=== PATIENT | female | born 1970 | race African-American/Black ===

== ENCOUNTER 2020-07-26 10:00 | Outpatient (REF) | payer MEDICARE, MEDICAID, SELFPAY | END 2020-07-26 10:01 | disposition home or self-care (01) | LOC: HO.HAP 10:00 | PROVIDERS: Visit Provider Internal Medicine | DX: Z46.1 Encounter for fitting and adjustment of hearing aid (principal) | CPT/HCPCS: V5266 ==

== ENCOUNTER 2020-08-15 08:29 | Outpatient (REF) | payer MEDICARE, MEDICAID, SELFPAY ==
--- NOTE | 2020-08-15 11:46 | MHC.AU.P13 ---
Adult Audiological Evaluation Date of Visit: 08/15/20 Reason for Appointment: Audiological re-evaluation to monitor the status of Ms. Deutsch's hearing loss. She has a history of profound hearing loss in the left ear since childhood, stenosis of the left ear canal, and a mild to moderate high-frequency sensorineural hearing loss in the right ear. She uses a BiCROS hearing aid system. She denies any significant changes to her hearing or medical history. She notes that her hearing aids have not been working well the past few days. Ms. Deutsch is eligible for updated amplification. Previous Hearing Test Results: [facility] [place], 06/22/2019- Mild to moderate sensorineural hearing loss from 6494-7586 Hz in the right ear. Left ear not tested. Hearing Instrument History- Right Ear: Preschool Lead Teacher: Phonak Model: Audeo [id number] Serial Number: [id number] Battery Size: 13 Repair Warranty: 12/19/2016 Loss and Damage Warranty: 12/19/2016 Dispensed By: [facility] Date of Fittin10/04/2014 Hearing Instrument History- Left Ear: Preschool Lead Teacher: Phonak Model: CROS ITE Serial Number: [id number] Battery Size: 13 Warranty: 10/20/2016 Loss and Damage Warranty: 10/20/2016 Dispensed By: [facility] Date of Fittin10/04/2014 Otoscopy: Right Ear: Unremarkable Left Ear: Stenosis of the ear canal Tympanometry: Right Ear: Normal Middle Ear System (Type A) Left Ear: Not performed at today's visit Hearing Evaluation: Transducer(s) Used: Insert Earphones, Bone Conduction Method: Conventional Audiometry Stimuli Used: Pure Tones Right Ear: Description of Hearing: Normal hearing from 250-1500 Hz, sloping to a mild to moderate sensorineural hearing loss from 3960-9841 Hz. Left Ear: Description of Hearing: Did not test today due to history of profound hearing loss since childhood. Speech Recognition Threshold (SRT): Method Used: Monitored Live Voice Stimuli Used: Spondee Words Right Ear: 10 dBHL Left Ear: Did not test Word Discrimination: Method: Recorded Lists Word Lists Used: NU-6 Right Ear: 92% at 50 dBHL Left Ear: Did not test Comparison: Compared to the most recent evaluation: Hearing is stable. Recommendations: Recommendations: Audiological re-evaluation in one year. Medical clearance from a physician is required before fitting. See Hearing Aid Evaluation report for more information. See Hearing Aid Follow-Up note for more information. Recommendations (Other): Updated amplification is recommended. Discussed options. New BiCROS hearing aids will be ordered once medical clearance is received. Hearing aid maintenance was performed today. Diagnosis: Primary Diagnosis: H90.3 Bilateral Sensorineural Hearing Loss Services Performed: Services Performed: Comprehensive Audiological Evaluation (CPT 69661) Tympanometry (CPT 91343) Signature: Provider: Debbie Cheek, CCC-A
--- NOTE | 2020-08-15 11:47 | MHC.AU.MED ---
Medical Clearance for Hearing Instrumentation Date: 08/15/20 Patient Name: Sabra Deutsch Date of : 1970 Primary Care Provider: Referring Provider: Liss Moctezuma MD We have seen your patient on 08/15/20 and have determined that they are a candidate for amplification (See accompanying report). Specifically, they would benefit from: Hearing aid use in both ears There is a statute that addresses Medical Evaluation Requirements prior to fitting a patient with a hearing aid. According to [place] statute 265 CMR:6.03(1), (a) General. Except as provided in 265 CMR 6.03(1)(b), a newborn hearing screener shall not sell a hearing aid unless the prospective user has presented to the newborn hearing screener a written statement signed by a licensed physician that states that the patient's hearing loss has been medically evaluated and the patient may be considered a candidate for a hearing aid. The medical evaluation must have taken place within the preceding six months. Please note: Due to the [place] Statute referenced above, we cannot accept a signature other than that of a licensed physician. SENIOR HYDROGEOLOGIST and PA signatures cannot be accepted. I am in agreement with the above recommendation. There is no medical contraindication for hearing instrumentation. Physician Signature Date Physician Name (Printed)
== END 2020-08-15 08:30 | disposition home or self-care (01) ==
LOC: HO.SH 08:29
PROVIDERS: Visit Provider Internal Medicine
DX: Z46.1 Encounter for fitting and adjustment of hearing aid (principal); H90.3 Sensorineural hearing loss, bilateral
CPT/HCPCS: 92557; 92567; 92591; 92593; 99499; V5275

== ENCOUNTER 2020-12-03 15:30 | Outpatient (REF) | payer MEDICARE, MEDICAID, SELFPAY | END 2020-12-03 15:31 | disposition home or self-care (01) | LOC: HO.HAP 15:30 | PROVIDERS: Visit Provider Internal Medicine | DX: Z46.1 Encounter for fitting and adjustment of hearing aid (principal) | CPT/HCPCS: V5266 ==

== ENCOUNTER 2020-12-04 11:09 | Outpatient (REF) | payer MEDICARE, MEDICAID, SELFPAY ==
--- NOTE | ~2020-12-04 | XR_ITS ---
EXAMINATION: XR HAND, RIGHT CLINICAL INFORMATION: Pain in right fingers. COMPARISON: 05/04/2019 and 03/24/2017. TECHNIQUE: PA, lateral, and oblique views of the right hand. FINDINGS: There is no evidence of acute fracture or dislocation of the right hand. There is some soft tissue swelling seen about the third proximal interphalangeal joint with some narrowing of the joint space and a small bony density about the ulnar aspect, likely related to sequela of previous injury. XR/XR hand RT min 3V IMPRESSION: Soft tissue swelling about the third proximal interphalangeal joint with bony density, likely representing sequela of previous injury. No acute fracture identified.
[2020-12-04 12:20] LABS: MANUAL DIFF FLAG NO
[2020-12-04 12:23] LABS: Basophils Percent Auto 0.2 % (0-2); Eosinophils Percent Auto 0.1 % (0-4); Hematocrit 38.9 % (37-47); Hemoglobin 12.7 g/dl (12.0-16.0); Imm Gran Abs Auto 0.02 X10*3/uL (0.00-0.03); Imm Gran Pct Auto 0.2 % (0.0-0.4); Lymphocytes Absolute Auto 2.6 X10*3/uL (1.2-4.9); Lymphocytes Percent Auto 25.1 % (20-40); Mean Corpuscular HGB Conc 32.6 g/dl (31.0-35.0); Mean Corpuscular Hemoglobin 29.9 pg (27.0-33.0); Mean Corpuscular Volume 91.5 fL (80-98); Mean Platelet Volume 10.4 fL (9.4-12.3); Monocytes Absolute Auto 0.3 X10*3/uL (0.1-1.2); Monocytes Percent Auto 3.3 % (2-11); Neutrophils Absolute Auto 7.4 X10*3/uL (2.0-8.3); Neutrophils Percent Auto 71.1 % (45-73); Platelet Count 279 X10*3/uL (160-400); Red Blood Count 4.25 X10*6/uL (4.20-5.50); Red Cell Distribution Width 14.6 % (11.0-16.0); White Blood Count 10.4 X10*3/uL (4.8-10.8)
[2020-12-04 12:59] LABS: Alanine Aminotransferase 14 U/L (0-31); Alkaline Phosphatase 96 U/L (39-117); Anion Gap 16 (12-20); Aspartate Amino Transferase 9 U/L (5-31); Bilirubin Total 0.4 mg/dL (0.0-1.0); Blood Urea Nitrogen 13 mg/dL (9-16); C Reactive Protein 1.68 mg/dL (< or = 0.50); Carbon Dioxide 21 mmol/L (22-29); Chloride 108 mmol/L (96-108); Estimated Glomerular Filt Rate > 60; Glucose Random 204 mg/dL (60-115); Sodium 141 mmol/L (135-145); Total Protein 6.8 g/dL (6.5-8.0)
[2020-12-04 13:11] LABS: Erythrocyte Sedimentation Rate 14 MM/HR (0-20)
[2020-12-04 13:14] LABS: Rheumatoid Factor < 15.0 IU/mL (<15.0)
[2020-12-06 21:27] LABS: Cyclic Citrullinated Peptide <16 UNITS
== END 2020-12-04 11:10 | disposition home or self-care (01) ==
LOC: HO.LAB 11:09
PROVIDERS: PCP Internal Medicine; Visit Provider Student in an Organized Health Care Education/Training Program
DX: M79.644 Pain in right finger(s) (principal); E11.65 Type 2 diabetes mellitus with hyperglycemia; E78.00 Pure hypercholesterolemia, unspecified; I10 Essential (primary) hypertension; D50.9 Iron deficiency anemia, unspecified; Z88.8 Allergy status to other drugs, medicaments and biological substances; Z79.84 Long term (current) use of oral hypoglycemic drugs; Z79.899 Other long term (current) drug therapy
CPT/HCPCS: 36415; 73130; 80053; 85025; 85652; 86140; 86200; 86431; 99202

== ENCOUNTER → 2020-12-25 13:46 | Outpatient (BNVA) | payer MEDICARE, MEDICAID, SELFPAY | PROVIDERS: PCP Internal Medicine; Visit Provider Student in an Organized Health Care Education/Training Program | DX: M79.644 Pain in right finger(s) (principal); Z79.899 Other long term (current) drug therapy | CPT/HCPCS: 99212 ==

== ENCOUNTER 2021-01-03 11:00 | Outpatient (RCR) | payer MEDICARE, MEDICAID, SELFPAY ==
--- NOTE | 2020-12-19 13:03 | MHC.OT.OEV ---
[address] [phone] F: [phone] Occupational Therapy Evaluation Diagnosis: RIGHT FINGER PAIN Date of Onset: 12/18/18 Attending Provider: Dick Ordonez Prescribed Treatment: EVAL AND TREAT History of Current Condition: REPORTS ABOUT TWO YEAR HISTORY OF RIGHT MIDDLE FINGER PAIN, AT PIPJ. STATES IT IS WORSE AT NIGHT AND WITH COLD, RAINY WEATHER. XRAY 12/06/20 SHOWS Soft tissue swelling about the third proximal interphalangeal joint with bony density, likely representing sequela of previous injury. 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 ENJOYS MAKING POTTERY. Living Situation, Family and/or Social Support: LIVES WITH S/O Current Level of Function and Occupation Self Care, Employment, Leisure: DENIES DIFFICULTIES WITH PERFORMING DAILY TASKS AT HOME OR WITH VOLUNTEER WORK Sleep: MILD DISCOMFORT WITH SLEEPING, PAIN GREATER AT NIGHT Driving: NO PROBLEMS Vision: HX EYE SURGERY Pain Assessment Pain Score: 0-3/10 Pain Scale Used: Numeric (0 - 10) Pain Location and Description: RIGHT MIDDLE FINGER, PIPJ Aggravating Factors: COLD WEATHER Alleviating Factors: TAKING TYLENOL, HAS NOT TRIED HEAT FOR PAIN RELIEF Skin and Soft Tissue Assessment Skin and Soft Tissue: Swelling Comments: INCREASED EDEMA AT PIPJ OF RIGHT MIDDLE FINGER Sensory Assessment Temperature: Light Touch: WFL Proprioception: Vibration: Comments: PER SEMMES MOIRA ASSESSMENT Edema Assessment Upper Extremity: Right Impaired Lower Extremity: Comments: CIRCUMFERENCE OF PIPJ D3: RIGHT 6.7 CM, LEFT 5.7 CM CIRCUMFERENCE OF MCPs D2-D5: RIGHT 18.7 CM, LEFT 18.4 CM Dexterity Assessment Dexterity: WFL Comments: 9 HOLE PEG TEST RIGHT 17 SECONDS, LEFT 20 SECONDS Special Tests Comments: AROM(PROM) Strength Wrist Flexion: Extension: Ulnar Deviation: Radial Deviation: Comments: Flexion: Extension: Ulnar Deviation: Radial Deviation: Comments: SHOULDER, ELBOW AND WRIST WNL Digits Index MCP: PIP: DIP: Long MCP: R 70, L 80 PIP: R 90, L 100 DIP: R 72, L 72 Ring MCP: PIP: DIP: Small MCP: PIP: DIP: Comments: <0.5 CM TIP TO DPC OF D3 Gross Grasp: R 52, L 55 Lateral Pinch: R 15, L 10 Two-Point Pinch: R 7, L 7 Three-Jaw Abimael: R 5, L 7 Comments: Patient Education Primary Language: Senegalese Insole And Outsole Preparer Required: Yes Current Knowledge: Understands information with skills for self-management Teaching Method: Demonstration Handouts Verbal Education Needs Identified on Evaluation: ADL's Disease Information Equipment Use Exercise Pain Safety How did patient/family demonstrate learning? Patient demonstrates Patient verbalizes Barriers to Learning: Vision Readiness for Learning: Accepting Who was educated? Patient Comments: Plan of Care Assessment: HAYDE PRESENTS TO OT WITH A TWO YEAR HISTORY OF PAIN IN HER DOMINANT, RIGHT PIP JOINT OF THE MIDDLE FINGER. SHE STATES THE PAIN IS WORSE AT NIGHT AND WITH ACTIVITY. SHE REPORTS A 5% LIMITATION PER THE QUICK DASH ASSESSMENT. A BRIEF COURSE OF OT IS WARRANTED TO IMPROVE QOL AND MAXIMIZE HER FUNCTIONAL ABILITIES. STG Duration: 2 WEEKS Short Term Goals: IND HEP IND JOINT PROTECTION AND ACTIVITY MODIFICATION IND HEAT, INCLUDING HOME PARAFFIN UNIT OR THERMAL MODALITIES IND EDEMA MANAGEMENT WILL VERBALIZE 5/6 JOINT PROTECTION TECHNIQUES LTG Duration: Long-Term Goals: SEE ABOVE Frequency and Duration: The patient will be seen 1X/WEEK FOR 2 WEEKS Treatment Plan: Therapeutic Exercise Therapeutic Activity Home Exercise Program Splinting Neuro Re-ed Patient Education Desensitization/Sensory Re-ed Edema Control ADL Training Ultrasound NMES Iontophoresis Paraffin Fluidotherapy MHP Cold Packs Joint Mobilization Soft Tissue Mobilization Kinesiotaping Electronically Signed By: JEANNETTE YO OTR/L Reviewed/agree with student documentation: N/A Therapist: Please sign and return to therapist, Thank you for your referral.
--- NOTE | 2021-01-03 11:31 | MHC.OT.DC ---
[address] [phone] F: [phone] Occupational Therapy Discharge Note Provider: Dick Ordonez Diagnosis: RIGHT FINGER PAIN Date of Evaluation: 12/19/20 Date of Discharge: 01/03/21 Treatments to Date: 2 Discharge Status: Achieved Goals Improved Function Independent with HEP Discharge Summary: MS. SWIFT HAS DONE WELL WITH FOLLOWING THROUGH WITH HER HEP AND IS IMPLEMENTING JOINT PROTECTION STRATEGIES IN DAILY ACTIVITIES. SHE PURCHASED A HOME PARAFFIN UNIT AND ADDITIONAL COBAN FOR GENTLE COMPRESSION AT HER MF PIPJ. SHE WAS HIGHLY MOTIVATED AND RECEPTIVE TO PATIENT EDUCATION ON ACTIVITY MODIFICATION FOR ADLs AND IADLs. NO FURTHER OT WARRANTED AT THIS TIME, Pt READY FOR SELF MANAGEMENT OF OA AT HOME. D/C OT SERVICES. Electronically Signed By: JEANNETTE YO OTR/Татьяна Reviewed/agree with student documentation: N/A Therapist: Please Sign and return to therapist, thank you for your referral.
== END 2021-01-03 13:14 | disposition other institution (70) ==
LOC: HO.OT 11:00
PROVIDERS: PCP Internal Medicine; Visit Provider Student in an Organized Health Care Education/Training Program
DX: M79.644 Pain in right finger(s) (principal)
CPT/HCPCS: 97110; 97165

== ENCOUNTER 2021-03-19 09:33 | Outpatient (REF) | payer MEDICARE, MEDICAID, SELFPAY | END 2021-03-19 09:34 | disposition home or self-care (01) | LOC: HO.HAP 09:33 | PROVIDERS: Visit Provider Internal Medicine | DX: Z46.1 Encounter for fitting and adjustment of hearing aid (principal); H90.3 Sensorineural hearing loss, bilateral | CPT/HCPCS: V5266 ==

== ENCOUNTER 2021-05-02 13:49 | Outpatient (REF) | payer MEDICARE, MEDICAID, SELFPAY ==
--- NOTE | ~2021-05-02 | MM_ITS ---
EXAMINATION: MM SCREENING DIGITAL BREAST TOMOSYNTHESIS, BILATERAL CLINICAL INFORMATION: Screening. Asymptomatic. The lifetime risk of breast cancer based on the Tyrer-Cuzick Model is 11%. COMPARISON: Mammography: 04/18/2020, 04/13/2019, 04/07/2018 TECHNIQUE: Digital breast tomosynthesis is performed in both the craniocaudal and mediolateral oblique views along with computer-aided detection (CAD). Synthesized 2D images are generated from the tomosynthesis. FINDINGS: The breasts are heterogeneously dense, which may obscure small masses (ACR BI-RADS breast composition Category c). Breast tissue composition borders on average fibroglandular. The right CC view has asymmetric density mid outer quadrant 7.5 cm from nipple representing change from prior exams. Patient will be recalled for additional imaging. The remainder of the breasts show no interval mass or architectural abnormality. No abnormal calcifications. The axilla and skin contours are unremarkable. MM/MM tomosynthesis screening BI IMPRESSION: 1. Right: Asymmetric density mid outer breast on CC view. 2. Left: No mammographic evidence of malignancy. ASSESSMENT: BI-RADS 0: Incomplete - Need Additional Imaging Evaluation RECOMMENDATION: 1. Additional views of the right breast (spot CC, rolled CC x2). 2. Targeted ultrasound if warranted after review of the additional views. 3. Radiology department staff will contact the patient for additional imaging. This patient's information was entered into a reminder system with a target due date for their next mammogram.
== END 2021-05-02 13:50 | disposition home or self-care (01) ==
LOC: HO.MAMMO 13:49
PROVIDERS: PCP Internal Medicine; Visit Provider Internal Medicine
DX: Z12.31 Encounter for screening mammogram for malignant neoplasm of breast (principal)
CPT/HCPCS: 77063; 77067

== ENCOUNTER 2021-05-13 10:58 | Outpatient (REF) | payer MEDICARE, MEDICAID, SELFPAY ==
--- NOTE | ~2021-05-13 | MM_ITS ---
EXAMINATION: MM DIAGNOSTIC DIGITAL BREAST TOMOSYNTHESIS, RIGHT US DIAGNOSTIC ULTRASOUND BREAST, RIGHT CLINICAL INFORMATION: Recall from screening for asymmetric density mid outer breast, change from prior studies. COMPARISON: Mammography: 05/02/2021, 04/18/2020, 04/13/2019 TECHNIQUE: Digital breast tomosynthesis is performed. 2D images are generated from the tomosynthesis. The following views are obtained: Rolled CC x2, spot CC. Ultrasound right breast is targeted to the outer quadrant using grayscale imaging and color Doppler without and with harmonics. Additional imaging axilla are also performed. FINDINGS: The breasts are heterogeneously dense, which may obscure small masses (ACR BI-RADS breast composition Category c). US additional views suggest subtle asymmetric density mid outer breast. Ultrasound demonstrates focal irregular hypoechoic lesion 0.6 cm upper outer quadrant 10:00 position 8 cm from nipple. There is posterior acoustic shadowing. Finding corresponds to the area for recall. Additional imaging right axilla demonstrates no lymphadenopathy. Results are discussed with the patient at time of visit. Ultrasound-guided core biopsy is recommended. Results and recommendation called to office ([facility]) for Dr. Moctezuma on 05/13/2021. MM/MM tomosynthesis added views R IMPRESSION: Irregular hypoechoic lesion with shadowing mid upper outer quadrant 0.6 cm corresponding to finding on recent mammography. ASSESSMENT: BI-RADS 4: Suspicious RECOMMENDATION: Ultrasound-guided core biopsy right breast lesion.
== END 2021-05-13 10:59 | disposition home or self-care (01) ==
LOC: HO.MAMMO 10:58
PROVIDERS: Visit Provider Internal Medicine
DX: R92.2 Inconclusive mammogram (principal)
CPT/HCPCS: 76642; 77061; 77065

== ENCOUNTER 2021-05-28 09:39 | Outpatient (REF) | payer MEDICARE, MEDICAID, SELFPAY ==
--- NOTE | ~2021-05-28 | MM_ITS ---
EXAMINATION: ULTRASOUND GUIDED CORE BIOPSY BREAST, RIGHT POST PROCEDURE DIGITAL MAMMOGRAM, RIGHT CLINICAL INFORMATION: Irregular hypoechoic lesion with shadowing mid upper outer right breast under 1 cm. COMPARISON: Mammography 05/02/2021, 05/13/2021, right breast ultrasound 05/13/2021. FINDINGS: Proper informed consent is obtained from the patient after discussion of the procedure, potential risks and complications, and alternatives. Patient was given an opportunity for questions. The patient appeared to understand. The patient consented to the procedure and signed the consent form. GUIDANCE: Ultrasound-guided; aseptic technique. LESION: Irregular hypoechoic lesion upper outer right breast under 1 cm. APPROACH: Lateral medial. ANESTHESIA: 9 mL carbonated 1% lidocaine. DERMATOTOMY: Single skin alyssia dermatotomy performed. NEEDLE: 14-gauge Achieve core biopsy device with 13.5-gauge co-axial guide needle. CORES: 5. CLIP: HydroMARK; shape: butterfly. POST PROCEDURE UNILATERAL DIGITAL MAMMOGRAM: The post biopsy mammogram is performed in separate room using separate digital mammography equipment from the biopsy procedure. CC and ML views are obtained.The breasts are heterogeneously dense, which may obscure small masses (breast composition category: c). The clip marker is in position. No gross hematoma. The patient tolerated the procedure well. No immediate complications. Home instructions reviewed with the patient. Final pathology results are pending. MM/MM diagnostic mammo unilat RT IMPRESSION: 1. Status post ultrasound-guided core biopsy right breast. 2. Clip placed: HydroMARK; shape: butterfly. 3. Pathology pending. An addendum report will be issued.
[2021-05-28] MEDS: Lidocaine HCl 1 % 20 ML VIAL 9 ML SUBCUT (11:56)
[2021-05-28] MEDS: Sodium Bicarbonate 8.4% 50 MEQ/50 ML VIAL SUBCUT (11:58)
== END 2021-05-28 09:40 | disposition home or self-care (01) ==
LOC: HO.MAMMO 09:39
PROVIDERS: Visit Provider Surgery
DX: C50.411 Malignant neoplasm of upper-outer quadrant of right female breast (principal)
CPT/HCPCS: 19083; 77065; 88305; 88360; 99202

== ENCOUNTER → 2021-05-31 10:10 | Outpatient (BNVA) | payer MEDICARE, MEDICAID, SELFPAY | PROVIDERS: PCP Internal Medicine; Referring Provider Internal Medicine; Visit Provider Surgery | DX: C50.911 Malignant neoplasm of unspecified site of right female breast (principal) | CPT/HCPCS: 99212 ==

== ENCOUNTER 2021-06-18 10:08 | Outpatient (REF) | payer MEDICARE, MEDICAID, SELFPAY ==
[2021-06-18 10:29] LABS: MANUAL DIFF FLAG NO
[2021-06-18 10:54] LABS: Basophils Percent Auto 0.3 % (0-2); Hematocrit 42.9 % (37.0-47.0); Hemoglobin 13.9 g/dl (12.0-16.0); Imm Gran Abs Auto 0.03 X10*3/uL (0.00-0.03); Imm Gran Pct Auto 0.3 % (0.0-0.4); Lymphocytes Absolute Auto 2.6 X10*3/uL (1.2-4.9); Lymphocytes Percent Auto 26.9 % (20-40); Mean Corpuscular HGB Conc 32.4 g/dl (31.0-35.0); Mean Corpuscular Volume 92.5 fL (80.0-98.0); Mean Platelet Volume 10.3 fL (9.4-12.3); Monocytes Absolute Auto 0.4 X10*3/uL (0.1-1.2); Monocytes Percent Auto 3.6 % (2-11); Neutrophils Absolute Auto 6.7 x10*3/uL (2.0-8.3); Neutrophils Percent Auto 68.9 % (45-73); Platelet Count 306 X10*3/uL (160-400); Red Blood Count 4.64 X10*6/uL (4.20-5.50); Red Cell Distribution Width 14.6 % (11.0-16.0); White Blood Count 9.7 X10*3/uL (4.8-10.8)
[2021-06-18 11:19] LABS: Alanine Aminotransferase 14 U/L (0-31); Albumin Level 4.2 g/dL (3.5-5.0); Alkaline Phosphatase 83 U/L (39-117); Anion Gap 14 (12-20); Aspartate Amino Transferase 13 U/L (5-31); Bilirubin Total 0.4 mg/dL (0.0-1.0); Blood Urea Nitrogen 14 mg/dL (9-16); Calcium 9.1 mg/dL (8.4-10.2); Carbon Dioxide 22 mmol/L (22-29); Chloride 110 mmol/L (96-108); Cholesterol 163 mg/dL; Estimated Glomerular Filt Rate > 60; Glucose Random 117 mg/dL (60-115); HDL Cholesterol 57 mg/dL; LDL Cholesterol Calculated 88 mg/dl; Potassium 4.2 mmol/L (3.3-5.1); Sodium 142 mmol/L (135-145); Total Protein 7.1 g/dL (6.5-8.0); Triglycerides 90 mg/dL
[2021-06-18 11:23] LABS: Estimated Average Glucose 137 mg/dL; Hemoglobin A1c % 6.4 %
[2021-06-18 11:41] LABS: Thyroid Stimulating Hormone 1.85 uIU/mL (0.32-4.0); Vitamin D 25-OH Total 45.1 ng/mL (>30)
[2021-06-18 11:45] LABS: Vitamin B12 641 pg/mL (200-900)
[2021-06-18 12:04] LABS: Creatinine Urine 94.18 mg/dL; Microalbum/Creatinine Ratio Ur 24.4 ug/mg cr
== END 2021-06-18 10:09 | disposition home or self-care (01) ==
LOC: HO.LAB 10:08
PROVIDERS: PCP Internal Medicine; Visit Provider Internal Medicine
DX: E11.65 Type 2 diabetes mellitus with hyperglycemia (principal); E78.00 Pure hypercholesterolemia, unspecified
CPT/HCPCS: 36415; 80053; 80061; 82043; 82306; 82607; 82746; 83036; 84443; 85025

== ENCOUNTER 2021-06-24 07:05 | Day surgery (SDC) | payer MEDICARE, MEDICAID, SELFPAY ==
[2021-06-13 18:21] VITALS: BMI 36.2
--- NOTE | 2021-06-18 15:43 | P.CONAN_ITS ---
Documented by User: Susannah Holland NP 06/18/21 15:46 HPI - Anesthesia Eval Consult details Narrative: 50yo F for Right [place] Node Biopsy, Breast Biopsy Needle, Breast Lumpectomy Left side facial paralysis since childhood [facility] Active Problems Active Problems: All Active Problems (Updated 06/13/21 @ 18:05 by Nisa Chaves RN) Tachycardia (Acute) Finger pain, right (Acute) Colon cancer screening (Acute) Breast density (Acute) Abnormal ultrasound of breast (Acute) Abnormal mammogram of right breast (Acute) Invasive ductal carcinoma of right breast (Acute) Cervical cancer screening (Acute) Adult general medical exam (Acute) Depression (Acute) Schizophrenia (Acute) Hearing loss (Acute) Obesity (Acute) Hypertension (Acute) Hypercholesterolemia (Acute) GERD (gastroesophageal reflux disease) (Acute) Type 2 diabetes mellitus with hyperglycemia (Acute) Past Medical History Medical History (Updated 06/13/21 @ 18:05 by Nisa Chaves RN) Arthritis Facial paralysis GERD (gastroesophageal reflux disease) Hearing loss Hiatal hernia Hypercholesterolemia Hypertension Iron deficiency anemia Obesity Schizophrenia Type 2 diabetes mellitus with hyperglycemia Family History Family History Father Medical history unknown Mother Medical history unknown Surgical History Surgical History Hemiparesis History of eye surgery History of placement of ear tubes Social History Social History Housing: Apartment Alcohol intake: current Alcohol intake frequency: a few times a month Alcohol type: beer and wine Patient Tobacco Use Status: Never used Tobacco e-Cigarette/Vaping Use: Never Used Second Hand Smoke Exposure: No Use of substances other than those prescribed or required for medical reasons: Yes Are you DNR?: No Advance Directives: Yes Advance Directives Information Provided: No Advance Directives on File: Yes Advance Directives Date on File: 06/24/21 Recently lost weight without trying: No Nutrition Risks: No Nutritional Risk Patient : No service: No Current occupational status: unemployed Meds Allergies Allergy/AdvReac Type Severity Reaction Status Date / Time lisinopril [LISINOPRIL] Allergy Unknown SWOLLEN Verified 06/05/21 10:24 LIPS, angioedema, swelling Home Medications Medication Instructions Recorded Confirmed Last Taken Type aripiprazole 20 mg tablet (Abilify) 20 mg PO DAILY 05/30/20 06/05/21 Unknown History ascorbate calcium (vitamin C) 500 500 mg PO DAILY 05/30/20 06/05/21 Unknown History mg tablet aspirin 81 mg tablet,delayed 81 mg PO DAILY 05/30/20 06/05/21 Unknown History release (Adult Aspirin Regimen) bupropion HCl 100 mg tablet,12 hr 100 mg PO DAILY 05/30/20 06/05/21 06/24/21 History sustained-release (Wellbutrin SR) cholecalciferol (vitamin D3) 25 25 mcg PO DAILY 05/30/20 06/05/21 Unknown History mcg (1,000 unit) capsule cinnamon bark 500 mg capsule 500 mg PO DAILY 05/30/20 06/05/21 Unknown History (Cinnamon) clonidine HCl 0.1 mg tablet 0.1 mg PO DAILY PRN tab 05/30/20 06/05/21 Unknown History clozapine 50 mg tablet 75 mg PO BID tab 05/30/20 06/05/21 06/24/21 History fluoxetine 20 mg capsule (Prozac) 20 mg PO DAILY 05/30/20 06/05/21 06/24/21 History clozapine 25 mg tablet 25 mg PO BID 05/28/21 06/05/21 06/24/21 History Exam Exam Date and Time: June 18, 2021 1543 Height,Weight and Vital Signs: Height 5 ft 2 in Weight 89.811 kg Pertinent Lab Results Pertinent Lab Results: Laboratory Tests 06/18/21 06/18/21 10:28 10:28 WBC 9.7 Hgb 13.9 Hct 42.9 Plt Count 306 Sodium 142 Potassium 4.2 Chloride 110 H Carbon Dioxide 22 BUN 14 Creatinine 0.85 Assessment and Plan Assessment Anesthesia Assessment: Chart Reviewed Documented by User: Sandeep Velasquez 06/24/21 10:45 [facility] Past Medical History Medical History (Updated 06/13/21 @ 18:05 by Nisa Chaves RN) Arthritis Facial paralysis GERD (gastroesophageal reflux disease) Hearing loss Hiatal hernia Hypercholesterolemia Hypertension Iron deficiency anemia Obesity Schizophrenia Type 2 diabetes mellitus with hyperglycemia Functional capacity: independent ambulation Family History Family History Father Medical history unknown Mother Medical history unknown Family history of problems with anesthesia: Unobtainable Surgical History Surgical History Hemiparesis History of eye surgery History of placement of ear tubes History of Problems with Anesthesia: No Social History Social History Housing: Apartment Alcohol intake: current Alcohol intake frequency: a few times a month Alcohol type: beer and wine Patient Tobacco Use Status: Never used Tobacco e-Cigarette/Vaping Use: Never Used Second Hand Smoke Exposure: No Use of substances other than those prescribed or required for medical reasons: Yes Are you DNR?: No Advance Directives: Yes Advance Directives Information Provided: No Advance Directives on File: Yes Advance Directives Date on File: 06/24/21 Recently lost weight without trying: No Nutrition Risks: No Nutritional Risk Patient : No service: No Current occupational status: unemployed Meds Allergies Allergy/AdvReac Type Severity Reaction Status Date / Time lisinopril [LISINOPRIL] Allergy Unknown SWOLLEN Verified 06/05/21 10:24 LIPS, angioedema, swelling Home Medications Medication Instructions Recorded Confirmed Last Taken Type aripiprazole 20 mg tablet (Abilify) 20 mg PO DAILY 05/30/20 06/05/21 Unknown History ascorbate calcium (vitamin C) 500 500 mg PO DAILY 05/30/20 06/05/21 Unknown History mg tablet aspirin 81 mg tablet,delayed 81 mg PO DAILY 05/30/20 06/05/21 Unknown History release (Adult Aspirin Regimen) bupropion HCl 100 mg tablet,12 hr 100 mg PO DAILY 05/30/20 06/05/21 06/24/21 History sustained-release (Wellbutrin SR) cholecalciferol (vitamin D3) 25 25 mcg PO DAILY 05/30/20 06/05/21 Unknown History mcg (1,000 unit) capsule cinnamon bark 500 mg capsule 500 mg PO DAILY 05/30/20 06/05/21 Unknown History (Cinnamon) clonidine HCl 0.1 mg tablet 0.1 mg PO DAILY PRN tab 05/30/20 06/05/21 Unknown History clozapine 50 mg tablet 75 mg PO BID tab 05/30/20 06/05/21 06/24/21 History fluoxetine 20 mg capsule (Prozac) 20 mg PO DAILY 05/30/20 06/05/21 06/24/21 History clozapine 25 mg tablet 25 mg PO BID 05/28/21 06/05/21 06/24/21 History Exam Airway Mallampati Class: III TM Dist: >3cm Neck ROM: Full Loose/Missing/Broken Teeth: Yes Heart: rrr Lungs: bl breath sounds Assessment and Plan Final Anesthetic Review Family History of Problems with Anesthesia: Unobtainable History of Problems with Anesthesia: No NPO: Yes ASA Class: II Final Preanesthetic Review: Meds/Allgs Chart Reviewed and Anes Risks/Benef Reviewed Patient Risk: Intermediate Procedure Risk: Intermediate Anesthetic Plan Anesthetic Plan: GA Disposition: Standard PACU
[2021-06-24] VITALS (10 sets, daily range): BP systolic 124–145; BP diastolic 71–97; PULSE 79–114; RESP 13–20; TEMP 36.7–36.9; O2SAT 93–98
--- NOTE | ~2021-06-24 | NM_ITS ---
EXAMINATION: NM LYMPH SCINTIGRAPHY CLINICAL INFORMATION: Right breast invasive ductal cancer. COMPARISON: None TECHNIQUE: Following explaining right breast sentinel node procedure, benefits and risk, a written consent was obtained by Dr. Dao. 4% lidocaine cream was applied around the right breast areola. This cream was cleaned approximately 30 to 40 minutes later. The area around the areola was cleaned in aseptic manner. 0.5 mCi of 99m technetium Lymphoseek was administered in 4 equal doses around the right breast areola, and imaging was obtained approximately 30 minutes later. FINDINGS: There are 2 moderate-sized focal activity seen in the right anterior axilla consistent with sentinel nodes. There are a few additional faint visualizations of activity in the right anterior axilla on AP view. Four areas of injection isotope activity seen around the right breast areola. NM/NM sentinel node w imaging IMPRESSION: There are 2 obvious sentinel nodes seen in the right anterior axilla. There are several small faint areas of activity seen also in the right anterior axilla on right breast lymphoscintigraphy.
--- NOTE | ~2021-06-24 | MM_ITS ---
EXAMINATION: MM MAMMOGRAM GUIDED NEEDLE LOCALIZATION BREAST, RIGHT MM NEEDLE LOCALIZATION SPECIMEN FROM THE RIGHT BREAST CLINICAL INFORMATION: Invasive ductal cancer right breast. COMPARISON: 05/28/2021, 05/13/2021, 05/02/2021, 04/18/2020, targeted ultrasound right breast 05/13/2021, ultrasound-guided biopsy right breast 05/28/2021. TECHNIQUE NEEDLE LOC: Proper informed consent is obtained from the patient after discussion of the procedure, potential risks and complications, and alternatives including declining the procedure today. Patient was given an opportunity for questions. The patient appeared to understand. The patient consented to the procedure and signed the consent form. GUIDANCE: Digital mammography. APPROACH: Lateral Medial. TARGET: HydroMARK butterfly shaped clip marker mid upper outer quadrant. ANESTHESIA: Carbonated lidocaine 1%: 6 mL. LOCALIZATION MARKER: Fries MammaLok. 5 cm length. The skin is prepped and local anesthesia administered. The needle is positioned and position assessed with mammography. The wire is hooked into position. Frederica needle protector placed. The patient tolerated the procedure well and had no immediate complication. Following the procedure, 4% lidocaine ointment was administered to the left areola and covered with Tegaderm in anticipation of nuclear lymphoscintigraphy injection for sentinel lymph node mapping. Procedure results called to nuclear medicine medical director (Susannah) for Dr. Holden following the localization procedure. TECHNIQUE SPECIMEN RADIOGRAPH: Imaging of the excised specimen is performed using digital mammography in 1 view. FINDINGS SPECIMEN RADIOGRAPH: The distal needle and hookwire are delivered intact within the specimen. The proximal needle and hookwire are suctioned in OR prior to imaging. The biopsy clip marker is within the specimen adjacent to the localization needle. Results were called to Dr. Ivan Holden in the operating room at the time of imaging. MM/MM needle loc RT IMPRESSION: 1. Status post right breast needle localization with wire hooked into position. 2. Post operative specimen radiograph obtained.
[2021-06-24 07:29] LABS: UPreg QC Valid YES; Urine Pregnancy NEGATIVE (NEGATIVE)
--- NOTE | 2021-06-24 08:24 | MHC.SHP ---
Pre-Procedural Eval Section A Date of Service: 06/24/21 The patient is an INPATIENT: No Changes since office visit: Yes Patient answered all questions; No Cold of Flu in the past 2 weeks, No New Medical Problems and No Changes in Medication The History & Physical has been completed within 30 days and I have reviewed it.: Yes Section B Chief Complaint: right breast invasive ductal carcinoma Allergies: Allergies Allergy/AdvReac Type Severity Reaction Status Date / Time lisinopril [LISINOPRIL] Allergy Unknown SWOLLEN Verified 06/05/21 10:24 LIPS, angioedema, swelling Plan Diagnosis/Plan: Unchanged I have reviewed the history and physical and performed a pertinent physical examination on my patient. No changes have occurred unless specified.
--- NOTE | 2021-06-24 08:24 | PC.NURSE ---
off unit to needle loc.
[2021-06-24 08:39] LABS: Glucose, Whole Blood 132 mg/dL (60-115)
[2021-06-24] MEDS: Sodium Bicarbonate 8.4% 50 MEQ/50 ML VIAL SUBCUT (09:35)
[2021-06-24] MEDS: Lactated Ringers 1,000 ML 100 ML IVCONT (10:40)
--- NOTE | 2021-06-24 12:51 | W.PM.OPN ---
Operative Note Operative Note Date of Service: 06/24/21 Narrative: Preoperative diagnosis:Invasive ductal carcinoma right breast Postoperative diagnosis:same Procedure:Right breast lumpectomy with needle localization, right axillary sentinel node biopsy Surgeon: Ivan Holden MD Operations And Maintenance Technician: Radha Khanna PA-C Anesthesia:General LMA Indications for procedure: 50-year-old female patient presenting with a spiculated density in the right breast at the 10 o'clock position status post ultrasound-guided core biopsy. Pathology revealed an invasive ductal carcinoma, ER / GA positive, HER2 Glendy negative. She presents today for a right breast lumpectomy with needle localization, sentinel node biopsy right axilla. Operative findings: Specimen x-ray gross pathology confirmed the biopsy cavity within the specimen. A palpable nodule is identified within the specimen. Wider excision of anterior margin from superior to inferior was added. Specimen: Right breast lumpectomy with needle localization, anterior margin from superior to inferior Estimated blood loss: 10 mL Complications: none Procedure details: patient was brought to the OR and placed in a supine position. After administering general anesthesia the patient's right breast and axilla were prepped with ChloraPrep and draped in a sterile fashion. Surgical time-out was called the consent confirmed. Patient received preoperative antibiotics and Venodyne boots were in place. Local anesthesia consisting of 0.5% Sensorcaine with epinephrine was then infiltrated around the localizing needle in the upper outer quadrant right breast. A curvilinear incision was made just above the nipple-areolar complex and transverse fashion and carried out through subcutaneous Tissue. Superior and inferior skin flaps were then created with electrocautery. Core tissue surrounding the localizing needle was then excised beginning at the medial margin continue to the superior will inferior margin, posterior margin and then lateral margin. The needle was cut just below the skin level at the level of the hub, and the specimen sent to pathology for further examination. Specimen x-ray confirmed the marking clip within the specimen. Gross evaluation of the tissue revealed the biopsy cavity and palpable nodule within the specimen however the margins appeared close to the anterior margin from both superior and inferior junction. Additional tissue at this level was then obtained and sent as a separate specimen. Attention was then directed to the right axilla with the gamma probe was used identify the area of greatest radio activity. Curvilinear incision was made just below the hairline in the right axilla and carried out through subcutaneous tissue. The clavipectoral fascia was then entered and the axillary fat identified. Using the gamma probe, a node was identified and found to be palpable. This was grasped with an Allis clamp and dissected free from the surrounding axillary tissue using electrocautery. This was sent as sentinel node 1. A 2nd area of radio activity was also identified and a large palpable node identified. This was grasped with an Allis clamp and dissected free using electrocautery. Radio activity could not be measured due to a malfunction of the gamma probe at this point. 2 additional palpable lymph nodes were identified within the axillary compartment at level 1. No level 2 nodes could be palpable. These were sent as right axillary node 1 and 2. The wounds were then irrigated with saline solution and suctioned dry. Wounds were checked for hemostasis. Deep axillary fascia was closed using interrupted 3-0 Polysorb sutures. Dermis was closed using interrupted 3-0 Polysorb sutures. Skin was then closed using a running subcuticular 4-0 Polysorb suture. The breast incision was also irrigated with saline solution suctioned dry. Wounds were again checked for hemostasis. Deep breast tissue was reapproximated using interrupted 3-0 Polysorb sutures. Dermis was reapproximated using interrupted 3-0 Polysorb sutures. Skin was then closed using a running subcuticular 4-0 Polysorb suture. Sterile dressings consisting of Steri-Strips, flat gauze and Tegaderm were then applied. The patient tolerated the procedure well. Sponge, instrument, and needle counts reported as correct. The patient was transferred to PACU in stable condition. Breast Ogden Node Biopsy Substrate(s) used for sentinel node biopsy in the non-neoadjuvant setting: Radiotracer Substrate(s) used for sentinel node biopsy in the neoadjuvant setting: N/A All colored nodes or non-colored nodes present at the end of a dye filled lymphatic channel were removed, if dye was used as the substrate for localization: N/A All significantly radioactive nodes were removed, if radionuclide was used as the substrate for localization: Yes All palpably suspicious nodes were removed, if present: Yes If clips were placed in pathology-involved nodes, those nodes were identified and removed: N/A General Surg. - Synoptic Notes Breast Ogden Node Biopsy Substrate(s) used for sentinel node biopsy in the non-neoadjuvant setting: Radiotracer Substrate(s) used for sentinel node biopsy in the neoadjuvant setting: N/A All colored nodes or non-colored nodes present at the end of a dye filled lymphatic channel were removed, if dye was used as the substrate for localization: N/A All significantly radioactive nodes were removed, if radionuclide was used as the substrate for localization: Yes All palpably suspicious nodes were removed, if present: Yes If clips were placed in pathology-involved nodes, those nodes were identified and removed: N/A
[2021-06-24] MEDS: oxyCODONE HCl Immed Release 5 MG TABLET PO (14:12)
[2021-06-24] MEDS: Acetaminophen 325 MG TABLET 650 MG PO (14:13)
== END 2021-06-24 16:03 | disposition home or self-care (01) ==
PROVIDERS: Nurse Practitioner; PCP Internal Medicine; Visit Provider Surgery
PROC: (CPT 19301; principal; 2021-06-24 11:00)
PROC: (CPT 19301; 2021-06-24 11:00)
PROC: (CPT 19301; 2021-06-24 11:00)
DX: C50.411 Malignant neoplasm of upper-outer quadrant of right female breast (principal); C77.3 Secondary and unspecified malignant neoplasm of axilla and upper limb lymph nodes; Z17.0 Estrogen receptor positive status [ER+]; F20.9 Schizophrenia, unspecified; D50.9 Iron deficiency anemia, unspecified; I10 Essential (primary) hypertension; G51.0 Bell's palsy; E66.9 Obesity, unspecified; Z68.36 Body mass index [BMI] 36.0-36.9, adult; E11.65 Type 2 diabetes mellitus with hyperglycemia; Z79.84 Long term (current) use of oral hypoglycemic drugs; Z79.899 Other long term (current) drug therapy; Z88.8 Allergy status to other drugs, medicaments and biological substances
CPT/HCPCS: 19301; 38525; 19281; 78195; 81025; 82947; 88305; 88307; 88329; 88342; 88360; A4648; A9520; J0690; J1100; J2250; J2370; J2405; J3010

== ENCOUNTER → 2021-07-02 09:58 | Outpatient (BNVA) | payer MEDICARE, MEDICAID, SELFPAY | PROVIDERS: PCP Internal Medicine; Referring Provider Internal Medicine; Visit Provider Surgery | DX: Z48.3 Aftercare following surgery for neoplasm (principal); C50.911 Malignant neoplasm of unspecified site of right female breast | CPT/HCPCS: 99212 ==

== ENCOUNTER → 2021-07-03 08:31 | Outpatient (BNV) | payer MEDICARE, MEDICAID, SELFPAY | PROVIDERS: PCP Internal Medicine; Referring Provider Surgery; Visit Provider Internal Medicine | DX: C50.411 Malignant neoplasm of upper-outer quadrant of right female breast (principal); G62.0 Drug-induced polyneuropathy; T45.1X5A Adverse effect of antineoplastic and immunosuppressive drugs, initial encounter | CPT/HCPCS: 99204; 99213; 99214; 99215; G2211 ==

== ENCOUNTER 2021-07-03 13:18 | Outpatient (REF) | payer MEDICARE, MEDICAID, SELFPAY ==
--- NOTE | 2021-07-03 13:45 | MHC.AU.P13 ---
Hearing Instrument Problem Date of Visit: 07/03/21 Right Ear: Fiscal Manager: Phonak Model: Bolero Q50-M13 Serial Number: [id number] Repair Warranty: 12/19/2016 Loss and Damage Warranty: 12/19/2016 Battery Size: 13 Color: Black Tubing: Size 1 slim tube Type of Dome: Medium open Dispensed By: [facility] Date of Fittin10/04/2014 Left Ear: Fiscal Manager: Phonak Model: CROS ITE Serial Number: [id number] Repair Warranty: 10/20/2016 Loss and Damage Warranty: 10/20/2016 Battery Size: 13 Dispensed By: [facility] Date of Fittin10/04/2014 Follow-Up Summary: Aids dropped off not working - sent to [employer] for repair. Recommendations: Recommendations: Patient will be contacted when materials have arrived. Diagnosis Code(s): Primary Diagnosis: H90.3 Bilateral Sensorineural Hearing Loss Signature: Provider: JOHN Pinto
== END 2021-07-03 13:19 | disposition home or self-care (01) ==
LOC: HO.HAP 13:18
PROVIDERS: Visit Provider Internal Medicine
DX: Z13.89 Encounter for screening for other disorder (principal)

== ENCOUNTER → 2021-07-11 08:52 | Outpatient (BNVA) | payer MEDICARE, MEDICAID, SELFPAY | PROVIDERS: PCP Internal Medicine; Visit Provider Dietitian, Registered | DX: E66.01 Morbid (severe) obesity due to excess calories (principal); Z68.38 Body mass index [BMI] 38.0-38.9, adult; E11.9 Type 2 diabetes mellitus without complications | CPT/HCPCS: 97802 ==

== ENCOUNTER 2021-07-16 09:45 | Outpatient (REF) | payer MEDICARE, MEDICAID, SELFPAY ==
--- NOTE | 2021-07-16 11:01 | MHC.AU.HFU ---
Hearing Instrument Follow-Up- Binaural Date of Visit: 07/16/21 Right Ear: Recreation Attendant: Phonak Model: Bolero Q50-M13 Serial Number: [id number] Repair Warranty: 12/19/2016 Loss and Damage Warranty: 12/19/2016 Battery Size: 13 Color: Black Tubing: Size 1 slim tube Type of Dome: Medium open Dispensed By: [facility] Date of Fittin10/04/2014 Left Ear: Recreation Attendant: Phonak Model: CROS ITE Serial Number: [id number] Repair Warranty: 10/20/2016 Loss and Damage Warranty: 10/20/2016 Battery Size: 13 Dispensed By: [facility] Date of Fittin10/04/2014 Follow-Up Summary: Patient scheduled to bean picker her repaired CROS system. Only the right Bolero Q 50-13 BTE was received from repair yesterday. Contacted [employer] Customer Service to figure out where the left CROS ITE aid is. [facility] unable to locate the aid. [employer] opened a case #[id number]. A new replacement left CROS ITE was approved for replacement by [employer] and will be shipped when processed. Discussed with patient no hearing aid company is currently making custom CROS systems. Would likely be able to do a ALEX style with custom earmold from [facility] for the newest technology. If patient is interested she will have PCP fax order for audiologic re-evaluation and discuss options of new system. Recommendations: Schedule appointment when CROS ITE received. Repaired Bolero BTE in REPAIR drawer Diagnosis Code(s): Primary Diagnosis: H90.3 Bilateral Sensorineural Hearing Loss Signature: Provider: Debbie Gibson, [facility]
== END 2021-07-16 09:46 | disposition home or self-care (01) ==
LOC: HO.HAP 09:45
PROVIDERS: Visit Provider Internal Medicine
DX: Z13.89 Encounter for screening for other disorder (principal)

== ENCOUNTER → 2021-07-18 10:25 | Outpatient (BNVA) | payer MEDICARE, MEDICAID, SELFPAY | PROVIDERS: PCP Internal Medicine; Referring Provider Internal Medicine; Visit Provider Nurse Practitioner | DX: Z12.11 Encounter for screening for malignant neoplasm of colon (principal) | CPT/HCPCS: 99202 ==

== ENCOUNTER 2021-07-30 09:46 | Outpatient (REF) | payer MEDICARE, MEDICAID, SELFPAY | END 2021-07-30 09:47 | disposition home or self-care (01) | LOC: HO.HAP 09:46 | PROVIDERS: Visit Provider Internal Medicine | DX: Z46.1 Encounter for fitting and adjustment of hearing aid (principal); H90.3 Sensorineural hearing loss, bilateral | CPT/HCPCS: V5014 ==

== ENCOUNTER → 2021-07-30 13:51 | Outpatient (REF) | payer MEDICARE, MEDICAID, SELFPAY ==
--- NOTE | 2021-07-30 13:59 | CA_ITS ---
Transthoracic Echocardiogram Patient (Last, First, Middle): Sabra Deutsch H Gender: Female Date of : 1970 Age: 50 Procedure Date: 07/30/2021 Procedure Type: Transthoracic Echocardiogram Location: OP Height: 157.48 cm Weight: 86.18 kg BSA: 1.87 m2 Heart Rate: bpm BP: 126 / 82 mmHg Molding Machine Setter: DIPIKA Referring MD: Ashlee Mora MD Retort Pre Cooker: Chavo Hanna MD Symptoms: adriamycin needed Study Quality: Good ECG Rhythm: Sinus Conclusions: - 1. Normal LV systolic and diastolic function 2. Normal cardiac valvular Doppler 3. Normal RV systolic pressure 4. Small loculated pericardial effusion near the LV Findings Left Ventricle Normal left ventricular size, thickness, and systolic function. The visually estimated ejection fraction is between 60-65%. Spectral Doppler is indicative of a normal filling pattern. Peak global longitudinal strain is 18.4%, within normal limits Right Ventricle Normal right ventricular cavity size and systolic function. Atria Both atria are normal in size. Interatrial shunt cannot be excluded. Aortic Valve Normal aortic valve structure and function. There is no aortic valve stenosis. There is no aortic valve regurgitation. Mitral Valve Normal mitral valve structure and function. There is trace mitral valve regurgitation. There is no mitral valve stenosis. Pulmonic Valve The pulmonic valve is likely normal. There is trace pulmonic valve regurgitation. Tricuspid Valve Normal tricuspid valve structure. There is trace tricuspid valve regurgitation. The right ventricular systolic pressure is normal. The right ventricular systolic pressure is 21 mmHg. Normal right atrial pressure. There is no evidence of pulmonary hypertension. Great Vessels All visible segments of the aorta are normal in size. The pulmonary artery was not well visualized. Venous The inferior vena cava is normal in size and collapses greater than 50% with inspiration. Pericardium/Pleural There is a small loculated pericardial effusion overlying the left ventricle. Prior Study Comparison No prior study available for comparison. Measurements 2D Linear Measurements IVSd: 0.95 0.6-0.9/0.6-1.0 cm LVIDd: 4.62 3.9-5.3/4.2-5.9 cm LVIDd Index: 2.47 2.4-3.2/2.2-3.1 cm/m2 LVIDs: 3.05 2.0-3.6 cm LVPWd: 1.09 0.7-1.1 cm Ao Root: 3.10 2.1-3.5 cm LA Diam: 3.80 2.7-3.8/3.0-4.0 cm LAIDs Index: 2.03 1.5-2.3 cm/m2 LV Mass: 204.53 67-162/88-224 g LV Mass Index: 109.37 43-95/49-115 g/m2 LVOT Diam: 2.00 3.0+(-)1.3 cm 2D Systolic Function EF 4C: 67.80 >55% EF 2C: 57.50 >55% EF BiP: 63.30 >55% Mitral Valve MV Pk E: 0.62 MV PK A: 0.62 MV Decel Time: 113.00 E/A: 1.00 E'Lateral: 7.94 E'Medial: 5.66 E/E' Med: 11.00 E/E' Lat: 7.90 PHT: 33.00 MVA PHT: 6.67 Decel [place]: 5.54 Aortic Valve AoV Pk Devon: 1.57 AoV Pk Grad: 10.00 LVOT LVOT Pk Devon: 1.02 LVOT Mn Devon: 0.66 LVOT VTI: 0.19 LVOT Pk Grad: 4.00 LVOT Mn Grad: 2.00 LVOT Diam: 2.00 LVOT Area: 3.14 Diastolic Function MV Pk E: 0.62 MV Pk A: 0.62 E/A: 1.00 E'Medial: 5.66 E/E' Med: 11.00 E' Laterial: 7.94 E/E' Lat: 7.90 Right Ventricle TAPSE (mm): 2.03 TVS' Devon: 16.60 Tricuspid Valve TR Pk Devon: 2.10 TR Pk Grad: 18.00 RA Press: 3.00 RVSP: 21.00 Great Vessels Aorta Ao Root-2D: 3.10 2.0-3.7 cm Ao Asc: 3.00 2.1-3.4 cm Updated in Other Vendor System with Status of Final Chavo Hanna MD electronically signed on 07/31/2021 12:10:18 PM with status of Final
== END ==
LOC: HO.CARD 13:51
PROVIDERS: Visit Provider Internal Medicine
DX: Z01.818 Encounter for other preprocedural examination (principal)
CPT/HCPCS: 93306

== ENCOUNTER 2021-08-01 08:53 | Day surgery (SDC) | payer MEDICARE, MEDICAID, SELFPAY ==
--- NOTE | ~2021-08-01 | IR_ITS ---
PROCEDURE: IR INSERTION OF TUNNEL CATHETER CLINICAL INFORMATION: Breast cancer. Needs port for chemotherapy. COMPARISON: None TECHNIQUE: Use of ultrasound and fluoroscopy for placement of left internal jugular port catheter. All elements of maximal sterile barrier technique followed including use of cap, mask, sterile gown, sterile gloves, a sterile full body drape and hand hygiene. Also followed skin preparation with 2% chlorhexidine for cutaneous antisepsis, and sterile ultrasound preparation with sterile gel and probe cover when applicable. FINDINGS: Informed consent was obtained from the patient prior to the procedure. During this process, the procedure and potential alternatives were explained, along with the intended outcome and benefits. The risks of the procedure, as well as the risk of not doing the procedure, were discussed. The patient was given the opportunity to ask questions regarding the procedure and appeared competent to make medical decisions. A signed consent form which documents this discussion was placed in the medical record. Ultrasound of the left neck was performed demonstrating patency of the left internal jugular vein. Ultrasound image was sent to PACS. Using sterile technique and ultrasound guidance the left internal jugular catheter was punctured and guidewire at first would not go down into the left innominate vein and would either go within the left jugular vein or left subclavian vein. The guidewire was placed in the left subclavian vein and dilator placed over the wire. The wire was then manipulated with the dilator to place a wire into the right atrium. Attention was then turned to creating a port pocket within the upper left chest wall. A skin incision was performed with the port pocket being blunt dissected. The 6.6 Vietnamese catheter was then tunneled from the port pocket to the internal jugular puncture site. A peel-away sheath was placed over the indwelling wire and through this the port catheter was placed with its tip lying at the cavoatrial junction. The catheter was then trimmed to size and fastened to the port. The port was sutured into the port pocket with two 2-0 monofilament sutures. The port was then flushed with heparin flush solution. The port pocket was then closed with a running 4-0 subcuticular suture with absorbable suture. The skin incision was then closed with tissue adhesive. Tissue adhesive was also used to close the left internal jugular puncture site. Fluoroscopy time: 7.5 minutes. DAP: 1284 cGy centimeters squared. IR/IR cvc insert tunnel w prt/novelty balloon assembler and packer IMPRESSION: Placement of left internal jugular port catheter as described.
[2021-08-01 09:45] LABS: MANUAL DIFF FLAG NO
[2021-08-01 09:50] LABS: Basophils Percent Auto 0.3 % (0-2); Hemoglobin 14.7 g/dl (12.0-16.0); Imm Gran Abs Auto 0.05 X10*3/uL (0.00-0.03); Imm Gran Pct Auto 0.4 % (0.0-0.4); Lymphocytes Absolute Auto 2.6 X10*3/uL (1.2-4.9); Lymphocytes Percent Auto 22.9 % (20-40); Mean Corpuscular HGB Conc 32.7 g/dl (31.0-35.0); Mean Corpuscular Hemoglobin 30.6 pg (27.0-33.0); Mean Corpuscular Volume 93.6 fL (80.0-98.0); Mean Platelet Volume 10.1 fL (9.4-12.3); Monocytes Absolute Auto 0.5 X10*3/uL (0.1-1.2); Monocytes Percent Auto 4.7 % (2-11); Neutrophils Absolute Auto 8.3 x10*3/uL (2.0-8.3); Neutrophils Percent Auto 71.7 % (45-73); Platelet Count 271 X10*3/uL (160-400); Red Blood Count 4.81 X10*6/uL (4.20-5.50); Red Cell Distribution Width 14.9 % (11.0-16.0); White Blood Count 11.5 X10*3/uL (4.8-10.8)
[2021-08-01 09:51] VITALS: BP 119/76; PULSE 88; RESP 16; TEMP 36.3; O2SAT 97; BMI 34.7
[2021-08-01 09:56] LABS: Glucose, Whole Blood 109 mg/dL (60-115)
[2021-08-01 10:17] LABS: Prothrombin Time 11.7 SEC (9.9-13.0)
[2021-08-01 10:19] LABS: Partial Thromboplastin Time 38.7 SEC (24.1-38.0)
[2021-08-01 13:30] VITALS: BP 113/71; PULSE 82; RESP 17; TEMP 36.4; O2SAT 97
[2021-08-01 14:00] VITALS: BP 125/75; PULSE 90; RESP 18; O2SAT 99
[2021-08-01 14:30] VITALS: BP 129/78; PULSE 85; RESP 18; O2SAT 99
[2021-08-01] MEDS: Lidocaine HCl 1 % 20 ML VIAL 10 ML INFILTRATI (14:31)
== END 2021-08-01 15:05 | disposition home or self-care (01) ==
PROVIDERS: Radiology Diagnostic Radiology; PCP Internal Medicine; Visit Provider Radiology Diagnostic Radiology
DX: Z45.2 Encounter for adjustment and management of vascular access device (principal); C50.411 Malignant neoplasm of upper-outer quadrant of right female breast; C77.3 Secondary and unspecified malignant neoplasm of axilla and upper limb lymph nodes; Z17.0 Estrogen receptor positive status [ER+]; F20.9 Schizophrenia, unspecified; D50.9 Iron deficiency anemia, unspecified; I10 Essential (primary) hypertension; E78.00 Pure hypercholesterolemia, unspecified; E11.65 Type 2 diabetes mellitus with hyperglycemia; Z79.84 Long term (current) use of oral hypoglycemic drugs; E66.9 Obesity, unspecified; Z68.35 Body mass index [BMI] 35.0-35.9, adult; Z79.899 Other long term (current) drug therapy
CPT/HCPCS: 36415; 36561; 82947; 85025; 85610; 85730; 99152; 99153; C1769; C1788; J0690; J1642; J2250; J3010

== ENCOUNTER → 2021-08-02 11:39 | Outpatient (BNVA) | payer MEDICARE, MEDICAID, SELFPAY | PROVIDERS: PCP Internal Medicine; Referring Provider Internal Medicine; Visit Provider Surgery | DX: Z48.3 Aftercare following surgery for neoplasm (principal); C50.911 Malignant neoplasm of unspecified site of right female breast | CPT/HCPCS: 99212 ==

== ENCOUNTER 2021-08-06 10:57 | Outpatient (REF) | payer MEDICARE, MEDICAID, SELFPAY ==
--- NOTE | ~2021-08-06 | FL_ITS ---
EXAMINATION: XR FLUOROSCOPY CLINICAL INFORMATION: MediPort check. COMPARISON: None. TECHNIQUE: The Mediport was injected through an existing Elliott needle under fluoroscopy following obtaining consent. FINDINGS: Approximately 8 to 10 mL of nonionic contrast injected x2 through the existent Elliott needle and the port under fluoroscopy and reveals widely patent catheter. There is likely a small fibrin at the tip of the catheter or the catheter may be close to the intima. There is no withdrawal of blood through the catheter. Postprocedure, the catheter was flushed with 10 mL of saline. FLUOROSCOPY TIME: 0.4 minutes DOSE AREA PRODUCT: 3.363 uGy-m2 (microgray-meter squared) FL/FL fluoroscopy <1hr IMPRESSION: Fluoroscopy-guided injection of left fourth reveals a small fibrin surrounding the catheter tip in the distal left brachiocephalic vein. The catheter also lies adjacent to the intima. The catheter is widely patent on injection of contrast. Results were discussed with Dr. Mora by phone at 12:30 PM.
[2021-08-06] MEDS: iohexoL 300 MG/ML 50 ML INFUS..BTL IV (12:29)
--- NOTE | 2021-08-06 13:55 | ECG_ITS ---
Test Reason : qtc check Blood Pressure : / mmHG Vent. Rate : 088 BPM Atrial Rate : 088 BPM P-R Int : 134 ms QRS Dur : 076 ms QT Int : 354 ms P-R-T Axes : 027 041 -09 degrees QTc Int : 428 ms Normal sinus rhythm Nonspecific T wave abnormality Abnormal ECG When compared with ECG of 09-JUL-2006 15:32, No significant changes seen Referred By: Ashlee Mora Electronically Signed By:ESDRAS WATERS
== END 2021-08-06 10:58 | disposition home or self-care (01) ==
LOC: HO.XRAY 10:57
PROVIDERS: Visit Provider Internal Medicine
DX: Z45.2 Encounter for adjustment and management of vascular access device (principal); T45.1X5A Adverse effect of antineoplastic and immunosuppressive drugs, initial encounter
CPT/HCPCS: 76000; 93005; Q9967

== ENCOUNTER 2021-08-28 10:07 | Outpatient (REF) | payer MEDICARE, MEDICAID, SELFPAY ==
--- NOTE | 2021-08-28 12:32 | MHC.AU.AHA ---
Adult Audiological Evaluation Date of Visit: 08/28/21 Reason for Appointment: Long-standing history of profound left-sided hearing loss, diagnosed in unit secy. History of middle ear dysfunction. Due to excessive ear infections, her left ear canal was surgically closed when she was in 6th grade. As of her last audiological evaluation on 06/22/2019, her right ear has normal hearing from 250-1000 Hz, sloping to moderate sensorineural hearing loss by 8000 Hz. Patient has recently been diagnosed with breast cancer. She has undergone a lumpectomy and is currently receiving chemotherapy. Medical History: Medical History: Breast Cancer, Type 2 Diabetes, Schizophrenia, Hypertension Hearing Instrument History- Right Ear: Lab Nurse: Phonak Model: Bolero Q50-M13 Serial Number: [id number] Battery Size: 13 Repair Warranty: 12/19/2016 Loss and Damage Warranty: 12/19/2016 Dispensed By: [facility] Date of Fittin10/04/2014 Hearing Instrument History- Left Ear: Lab Nurse: Phonak Model: CROS ITE Serial Number: [id number] Battery Size: 13 Warranty: 10/20/2016 Loss and Damage Warranty: 10/20/2016 Dispensed By: [facility] Date of Fittin10/04/2014 Otoscopy: Right Ear: Scarring on tympanic membrane Left Ear: Surgically-closed canal Tympanometry: Tympanometry performed due to: History of middle ear dysfunction Right Ear: Normal Middle Ear System (Type A) Left Ear: Not performed at today's visit Hearing Evaluation: Transducer(s) Used: Insert Earphones Method: Conventional Audiometry Stimuli Used: Pure Tones Right Ear: Description of Hearing: Normal from 250-1500 Hz, sloping to moderate sensorineural hearing loss by 8000 Hz Left Ear: Description of Hearing: Could not test- established history of profound hearing loss Speech Recognition Threshold (SRT): Method Used: Recorded Lists Stimuli Used: Spondee Words Right Ear: 10 dBHL Left Ear: Could not test Word Discrimination: Method: Recorded Lists Word Lists Used: W-22 Right Ear: 96% at 55 dBHL Left Ear: Could not test Most Comfortable Level (MCL): Right Ear: 55 dBHL Left Ear: Could not test Comparison: Compared to the most recent evaluation: Hearing is stable. Recommendations: Audiological re-evaluation in one year. See Hearing Aid Evaluation report for more information. Diagnosis: Primary Diagnosis: H90.3 Bilateral Sensorineural Hearing Loss Signature: Provider: Debbie Hernandez, MIKAYLA-A
--- NOTE | 2021-08-28 12:34 | MHC.AU.MED ---
Medical Clearance for Hearing Instrumentation Date: 08/28/21 Patient Name: Sabra Deutsch Date of : 1970 Referring Provider: Liss Moctezuma MD We have seen your patient on 08/28/21 and have determined that they are a candidate for amplification (See accompanying report). Specifically, they would benefit from: Hearing aid use in both ears (Bi-CROS system) There is a statute that addresses Medical Evaluation Requirements prior to fitting a patient with a hearing aid. According to [place] statute 265 CMR:6.03(1), (a) General. Except as provided in 265 CMR 6.03(1)(b), a teacher hearing impaired shall not sell a hearing aid unless the prospective user has presented to the teacher hearing impaired a written statement signed by a licensed physician that states that the patient's hearing loss has been medically evaluated and the patient may be considered a candidate for a hearing aid. The medical evaluation must have taken place within the preceding six months. Please note: Due to the [place] Statute referenced above, we cannot accept a signature other than that of a licensed physician. [employer] and PA signatures cannot be accepted. I am in agreement with the above recommendation. There is no medical contraindication for hearing instrumentation. Physician Signature Date Physician Name (Printed)
--- NOTE | 2021-08-28 12:52 | MHC.AU.HAS ---
Hearing Aid Evaluation Date of Visit: 08/28/21 Historical Information: Description of Hearing: Left: Profound hearing loss, Right: Normal to moderate sensorineural hearing loss Current personal amplification information, if applicable: Right: Phonak Bolero [id number], Left: Phonak CROS ITE Summary: Patient was seen for audiological re-evaluation (see separate report for details). Patient has eligible for new hearing instruments for a couple years; however, there had been no updated CROS products released. More recently, [employer] have released new CROS devices. Unfortunately, there are no manufacturers currently making custom CROS devices. Discussed options with the patient. We will try a pair of ALEX-style instruments, with the left side having a skeleton mold to keep it in place. The right side will use a dome. Impression taken of the left ear without incident. Hearing Aid Prescription: Based on the individual?s shared listening needs, communication environments, dexterity, desire for connectivity, and personal preferences, the following prescription for amplification has been made: Right ear: Asphalt Heater Tender: Phonak Model: Audeo P70-R Battery Size: Rechargeable Color: Sand Beige Produce Field Merchandiser: 0M Left ear: Asphalt Heater Tender: Phonak Model: CROS P-R Battery Size: Rechargeable Color: Sand Beige Produce Field Merchandiser: 0 Type of Mold: Phonak CROS Tip with skeleton lock Action Taken/Action Needed: Medical Clearance to be requested from PCP/ENT Hearing Instrument Fitting to be scheduled when materials arrive Primary Diagnosis: H90.3 Bilateral Sensorineural Hearing Loss Signature: Provider: Debbie Hernandez, MIKAYLA-A
== END 2021-08-28 10:08 | disposition home or self-care (01) ==
LOC: HO.SH 10:07
PROVIDERS: Visit Provider Internal Medicine
DX: H90.3 Sensorineural hearing loss, bilateral (principal)
CPT/HCPCS: 92557; 92567; 92591; V5275

== ENCOUNTER → 2021-09-11 10:58 | Outpatient (BNVA) | payer MEDICARE, MEDICAID, SELFPAY | PROVIDERS: PCP Internal Medicine; Visit Provider Dietitian, Registered | DX: E66.01 Morbid (severe) obesity due to excess calories (principal); Z68.38 Body mass index [BMI] 38.0-38.9, adult; E11.9 Type 2 diabetes mellitus without complications | CPT/HCPCS: 97803 ==

== ENCOUNTER 2021-09-19 18:29 | Inpatient (IN) | payer MEDICARE, MEDICAID, SELFPAY ==
--- NOTE | 2021-09-19 | ECG_ITS ---
Test Reason : MED CLEARANCE Blood Pressure : / mmHG Vent. Rate : 083 BPM Atrial Rate : 083 BPM P-R Int : 124 ms QRS Dur : 078 ms QT Int : 356 ms P-R-T Axes : 040 060 012 degrees QTc Int : 418 ms Normal sinus rhythm Nonspecific T wave abnormality Abnormal ECG When compared with ECG of 06-AUG-2021 13:47, No significant change was found Referred By: Sergey Pappas Electronically Signed By:ESDRAS WATERS
--- NOTE | ~2021-09-19 | MR_ITS ---
EXAMINATION: MR BRAIN WITHOUT CONTRAST CLINICAL INFORMATION: Altered mental status. COMPARISON: None available. TECHNIQUE: MRI of the brain was obtained using routine sequences without contrast. FINDINGS: No focal restricted diffusion is demonstrated to suggest acute or subacute cerebral ischemia. No evidence of acute or chronic hemorrhagic products on heme-sensitive imaging. Scattered periventricular and deep white matter T2 FLAIR hyperintensities consistent with mild underlying microangiopathy. Proportional prominence of the ventricles and sulcal spaces without evidence of obstructive hydrocephalus. No abnormal mass effect. No midline shift. Normal appearance of the pituitary gland. Normal positioning of the cerebellar tonsils. Normal arterial and venous vascular flow voids are present. Normal, homogeneous marrow signal. Mild degenerative spinal arthropathy of the visualized upper cervical spine. Mild mucosal thickening of the paranasal sinuses. The left-sided mastoid air cells are diminutive (potentially surgically resected). No signal abnormalities within the right-sided mastoid. MR/MR head/brain wo con IMPRESSION: 1. No acute intracranial abnormalities. 2. Mild underlying microangiopathy and generalized cerebral volume loss.
[2021-09-19 19:08] VITALS: BP 127/68; PULSE 83; RESP 17; TEMP 37.3; BMI 34.3
[2021-09-19 19:13] LABS: Appearance Urine CLEAR; Color Urine YELLOW; Glucose Urine UA >=1000 MG/DL (NEG); Leukocyte Esterase Urine NEG (NEG); Nitrite Urine NEG (NEG); UACC Culture Trigger NO; Urine Blood TRACE (NEG); Urine Ketones 5 MG/DL (NEG); Urine Protein NEG (NEG-TRACE)
--- NOTE | 2021-09-19 19:14 | ED_ITS ---
HPI - Psych General Chief Complaint: Psychiatric Symptoms Stated Complaint: sec 12 Time Seen by Provider: 09/19/21 19:14 Source: patient, EMS and RN notes reviewed Mode of arrival: EMS Limitations: other (Patient is very vague.) History of Present Illness HPI Narrative: 50 year old female past medical history significant for invasive ductal carcinoma of right breast status post chemotherapy, schizophrenia, depression, HTN, GERD, HLD, DM presents via ambulance on a section 12 with worsening anxiety, depression and racing thoughts. She tells me life has been hard. And she just can not keep things straight. She has a hard time telling me exactly what has been going on. However she was evaluated in the community by the behavioral health team and she is an inpatient bed search. She denies SI and HI. She denies visual, auditory and tactile hallucinations. She denies drugs, alcohol and tobacco use. Denies medical complaints at this time. Denies chest pain, shortness of breath, nausea, vomiting, fevers, chills. MD complaint: feels depressed and anxiety Duration: constant History of same: Yes Relieving factors: none Exacerbating factors: none Associated psychiatric symptoms: depression and homicidal ideation Associated symptoms: denies other symptoms Treatments prior to arrival: placed on mental health hold Related Data Home Medications Medication Instructions Recorded Confirmed aripiprazole 20 mg tablet 1 tab PO QAM 09/19/21 09/19/21 bupropion HCl 100 mg tablet,12 hr 1 tab PO QAM 09/19/21 09/19/21 sustained-release bupropion HCl 100 mg tablet,12 hr 1 tab PO QAM 09/19/21 09/19/21 sustained-release (Wellbutrin SR) clonidine HCl 0.1 mg tablet 1 tab PO BID PRN 09/19/21 09/19/21 clozapine 25 mg tablet 1 tab PO BID 09/19/21 09/19/21 clozapine 50 mg tablet 1 tab PO BID 09/19/21 09/19/21 docusate sodium 100 mg capsule 1 cap PO DAILY 09/19/21 09/19/21 empagliflozin 10 mg tablet 1 tab PO DAILY 09/19/21 09/19/21 (Jardiance) losartan 25 mg tablet 1 tab PO DAILY 09/19/21 09/19/21 metformin 1,000 mg tablet 1 tab PO BID 09/19/21 09/19/21 omeprazole 20 mg capsule,delayed 1 cap PO DAILY 09/19/21 09/19/21 release ondansetron 8 mg disintegrating 1 tab PO Q8H PRN 09/19/21 09/19/21 tablet simvastatin 5 mg tablet 1 tab PO BEDTIME 09/19/21 09/19/21 Previous Rx's Medication Instructions Recorded lancets 28 gauge (FreeStyle #2 box 01/03/21 Lancets) blood-glucose meter (FreeStyle #1 ea 09/12/21 Lite Meter) Allergies Allergy/AdvReac Type Severity Reaction Status Date / Time lisinopril [LISINOPRIL] Allergy Unknown SWOLLEN Verified 09/17/21 08:42 LIPS, angioedema, swelling Review of Systems Review of Systems: Constitutional : No Weight loss, No Fever, No Chills, No Fatigue, No Malaise ENT/Mouth : No sore throat, No Rhinorrhea Eyes: No Eye Pain, No Swelling, No Redness Cardiovascular : No Chest Pain, No SOB, No Dyspnea on Exertion, No Orthopnea, No Edema, No Palpitations Respiratory : No Cough, No Sputum, No Wheezing Gastrointestinal : No Nausea, No Vomiting, No Diarrhea, No Constipation, No abdominal Pain, No Hematochezia, No Melena Genitourinary : No Dysuria, No Urinary Frequency, No Hematuria, Musculoskeletal : No joint pain, No Myalgias, No Joint Swelling Skin : No Skin Lesions, No rash Neuro : No Weakness, No Numbness, No Dizziness, No Headache Psych : + Anxiety/Panic, + Depression All other systems reviewed and are negative Yes all other systems are reviewed and are negative [facility] Past Medical History Attestation statement: The following information was validated with the patient. Source: old records reviewed and nursing notes reviewed Medical History Arthritis Breast cancer Facial paralysis GERD (gastroesophageal reflux disease) Hearing loss Hiatal hernia Hypercholesterolemia Hypertension Iron deficiency anemia Obesity Schizophrenia Tachycardia Type 2 diabetes mellitus with hyperglycemia Surgical History Hemiparesis History of eye surgery History of lumpectomy of right breast History of placement of ear tubes Family History Family History Father Medical history unknown Mother Medical history unknown Social History Social History Household Members: Significant Other Housing: Condominium Are you a primary progressive care nurse to a significant other at home: No Do you presently have visiting nurse or other home services: Yes ([facility] comes once a week for med box.) Alcohol intake: current Alcohol intake frequency: holidays/special occasions only Alcohol type: beer and wine Patient Tobacco Use Status: Never used Tobacco e-Cigarette/Vaping Use: Never Used Second Hand Smoke Exposure: No Advance Directives: No Advance Directives Date on File: 06/24/21 Patient : No service: No Current occupational status: unemployed Physical Exam Vital Signs: Vital Signs: Last Vital Signs Temp 99.1 F 09/19/21 19:08 Pulse 83 09/19/21 19:08 Resp 17 09/19/21 19:08 BP 127/68 09/19/21 19:08 BMI result Body Mass Index 34.3 VSS Appearance: Alert.? Oriented X3.? No acute distress.? Patient answering questions appropriately however very vague with her responses. Head: Normocephalic, atraumatic, no step-offs or deformities Eyes: Pupils equal, round and reactive to light.? ENT: Pharynx normal.? Neck: Normal inspection.? Neck supple.? CVS: Normal heart rate and rhythm.? Pulses normal.? Respiratory: No respiratory distress.? Breath sounds normal.? Abdomen: Soft and nontender.? Skin: Skin warm and dry.? Normal skin color.? Normal skin turgor.? Extremities: No lower extremity edema.? No calf ttp. 5/5 strength to bilateral upper and lower extremities Back: No midline tenderness, no C-spine tenderness, full range of motion, no CVA tenderness bilaterally Neuro: Oriented X 3.? No motor deficit.? No sensory deficit. CN 2-12 intact Course Reevaluation(s) Reevaluation #1: Patient is noted to have leukocytosis however she has no medical complaints she is on clozapine which could be causing this she is also receiving steroids and Neulasta It also appears to be chronic. Chemistry appears to be within normal limits glucose 189, alk-phos 155 however chronically elevated. UA clean. Urine tox screen. COVID negative. Time: 20:26 Reevaluation #2: At this time patient will be placed in physician observation to allow more time to be placed on the mental health floor. At time observation was started patient, cooperative no acute distress. Labs stable. Vital signs stable. Will continue to monitor. Time: 20:46 MDM - Psych MDM Narrative Medical decision making narrative: 1935 50 yo f pmhx schizophrenia, depression, htn, gerd, hld, DM BIBA w/ worsening depression, racing thoughts today. She was evaluated by Behavioral Health in the community and was placed on a Section 12 she is now on inpatient bed search. Physical exam benign. Plan labs, urine, medical clearance. Medical Records Attestation: I reviewed the patient's medical records. Lab Data Attestation: I reviewed the patient's lab results. Result diagrams: 09/19/21 19:58 Labs: Lab Results 09/19/21 09/19/21 09/19/21 Range/Units 19:00 19:06 19:06 WBC (4.8-10.8) X10*3/uL RBC (4.20-5.50) X10*6/uL Hgb (12.0-16.0) g/dl Hct (37.0-47.0) % MCV (80.0-98.0) fL MCH (27.0-33.0) pg MCHC (31.0-35.0) g/dl RDW (11.0-16.0) % Plt Count (160-400) X10*3/uL MPV (9.4-12.3) fL Immature Gran % (Auto) (0.0-0.4) % Neut % (Auto) (45-73) % Lymph % (Auto) (20-40) % Custer % (Auto) (2-11) % Eos % (Auto) (0-4) % Baso % (Auto) (0-2) % Lymph # (Auto) (1.2-4.9) X10*3/uL Custer # (Auto) (0.1-1.2) X10*3/uL Eos # (Auto) (0.0-0.4) X10*3/uL Baso # (Auto) (0.0-0.2) X10*3/uL Abs Immat Gran (auto) (0.00-0.03) X10*3/uL Absolute Neuts (auto) (2.0-8.3) x10*3/uL Absolute Nucleated RBC (0.0-0.012) X10*3/uL Nucleated RBC % (auto) (0.0-0.2) /100WBC POC Glucose (60-115) mg/dL Urine Color YELLOW Urine Appearance CLEAR Urine pH 6.0 (5.0-8.0) Ur Specific Roark 1.010 (1.005-1.025) Urine Protein NEG (NEG-TRACE) MG/DL Urine Glucose (UA) >=1000 H (NEG) MG/DL Urine Ketones 5 (NEG) MG/DL Urine Blood TRACE (NEG) Urine Nitrite NEG (NEG) Ur Leukocyte Esterase NEG (NEG) Urine RBC 1-4 (0) /HPF Urine WBC 1-4 (0-4) /HPF Ur Squamous Epith Cells 2+ /LPF Urine Bacteria 1+ /LPF Urine Opiates Screen Not Detected (Not Detect) Urine Fentanyl Screen Not Detected (Not Detect) Ur Barbiturates Screen Not Detected (Not Detect) Ur Phencyclidine Scrn Not Detected (Not Detect) Ur Amphetamines Screen Not Detected (Not Detect) U Benzodiazepines Scrn Not Detected (Not Detect) Urine Cocaine Screen Not Detected (Not Detect) U Marijuana (THC) Screen Not Detected (Not Detect) COVID-19 (RAMSEY) Negative (Negative) COVID-19 Clin Com See Note 09/19/21 09/19/21 Range/Units 19:23 19:58 WBC 17.9 H (4.8-10.8) X10*3/uL RBC 4.49 (4.20-5.50) X10*6/uL Hgb 13.6 (12.0-16.0) g/dl Hct 40.9 (37.0-47.0) % MCV 91.1 (80.0-98.0) fL MCH 30.3 (27.0-33.0) pg MCHC 33.3 (31.0-35.0) g/dl RDW 17.1 H (11.0-16.0) % Plt Count 288 (160-400) X10*3/uL MPV 10.5 (9.4-12.3) fL Immature Gran % (Auto) 0.6 H (0.0-0.4) % Neut % (Auto) 91.1 H (45-73) % Lymph % (Auto) 5.9 L (20-40) % Custer % (Auto) 2.2 (2-11) % Eos % (Auto) 0.0 (0-4) % Baso % (Auto) 0.2 (0-2) % Lymph # (Auto) 1.1 L (1.2-4.9) X10*3/uL Custer # (Auto) 0.4 (0.1-1.2) X10*3/uL Eos # (Auto) 0.0 (0.0-0.4) X10*3/uL Baso # (Auto) 0.0 (0.0-0.2) X10*3/uL Abs Immat Gran (auto) 0.11 H (0.00-0.03) X10*3/uL Absolute Neuts (auto) 16.3 H (2.0-8.3) x10*3/uL Absolute Nucleated RBC 0.000 (0.0-0.012) X10*3/uL Nucleated RBC % (auto) 0.0 (0.0-0.2) /100WBC POC Glucose 189 H (60-115) mg/dL Urine Color Urine Appearance Urine pH (5.0-8.0) Ur Specific Roark (1.005-1.025) Urine Protein (NEG-TRACE) MG/DL Urine Glucose (UA) (NEG) MG/DL Urine Ketones (NEG) MG/DL Urine Blood (NEG) Urine Nitrite (NEG) Ur Leukocyte Esterase (NEG) Urine RBC (0) /HPF Urine WBC (0-4) /HPF Ur Squamous Epith Cells /LPF Urine Bacteria /LPF Urine Opiates Screen (Not Detect) Urine Fentanyl Screen (Not Detect) Ur Barbiturates Screen (Not Detect) Ur Phencyclidine Scrn (Not Detect) Ur Amphetamines Screen (Not Detect) U Benzodiazepines Scrn (Not Detect) Urine Cocaine Screen (Not Detect) U Marijuana (THC) Screen (Not Detect) COVID-19 (RAMSEY) (Negative) COVID-19 Clin Com Critical Care Time Critical Care Time Critical Care Time: No Discharge Plan Discharge Clinical Impression: Depression Patient Disposition: Still a Patient Prescriptions: No Action (DME) lancets [FreeStyle Lancets] 28 gauge misc See Rx Instructions .ROUTE .MEDSUPPLY Qty: 2 3RF Rx Instructions: Twice a day (DME) blood-glucose meter [FreeStyle Lite Meter] Kit See Rx Instructions .ROUTE .MEDSUPPLY Qty: 1 0RF Rx Instructions: As directed clonidine HCl 0.1 mg tablet 1 tab PO BID PRN (Reason: Anxiety) 0RF bupropion HCl 100 mg tablet sustained-release 12 hr 1 tab PO QAM 0RF bupropion HCl [Wellbutrin SR] 100 mg tablet sustained-release 12 hr 1 tab PO QAM 0RF ondansetron 8 mg tablet,disintegrating 1 tab PO Q8H PRN (Reason: nausea) 0RF simvastatin 5 mg tablet 1 tab PO BEDTIME 0RF metformin 1,000 mg tablet 1 tab PO BID 0RF losartan 25 mg tablet 1 tab PO DAILY 0RF docusate sodium 100 mg capsule 1 cap PO DAILY 0RF omeprazole 20 mg capsule,delayed release(DR/EC) 1 cap PO DAILY 0RF clozapine 25 mg tablet 1 tab PO BID 0RF aripiprazole 20 mg tablet 1 tab PO QAM 0RF clozapine 50 mg tablet 1 tab PO BID 0RF Jardiance 10 mg tablet 1 tab PO DAILY 0RF
[2021-09-19 19:23] LABS: Bacteria Urine 1+ /LPF; Squamous Epithelial Cell Urine 2+ /LPF
[2021-09-19 19:25] LABS: COVID-19 Test Negative (Negative)
[2021-09-19 19:26] LABS: Glucose, Whole Blood 189 mg/dL (60-115)
[2021-09-19 19:27] LABS: Amphetamine Screen Urine Not Detected (Not Detect); Barbiturates, Urine Not Detected (Not Detect); Benzodiazepines Screen Urine Not Detected (Not Detect); Cannabinoid Screen Urine Not Detected (Not Detect); Cocaine Screen Urine Not Detected (Not Detect); Fentanyl, urine Not Detected (Not Detect); Opiate Screen Urine Not Detected (Not Detect); Phencyclidine Screen Urine Not Detected (Not Detect)
[2021-09-19 20:02] LABS: MANUAL DIFF FLAG NO
[2021-09-19 20:04] LABS: Basophils Percent Auto 0.2 % (0-2); Hematocrit 40.9 % (37.0-47.0); Hemoglobin 13.6 g/dl (12.0-16.0); Imm Gran Abs Auto 0.11 X10*3/uL (0.00-0.03); Imm Gran Pct Auto 0.6 % (0.0-0.4); Lymphocytes Absolute Auto 1.1 X10*3/uL (1.2-4.9); Lymphocytes Percent Auto 5.9 % (20-40); Mean Corpuscular HGB Conc 33.3 g/dl (31.0-35.0); Mean Corpuscular Hemoglobin 30.3 pg (27.0-33.0); Mean Corpuscular Volume 91.1 fL (80.0-98.0); Mean Platelet Volume 10.5 fL (9.4-12.3); Monocytes Absolute Auto 0.4 X10*3/uL (0.1-1.2); Monocytes Percent Auto 2.2 % (2-11); Neutrophils Absolute Auto 16.3 x10*3/uL (2.0-8.3); Neutrophils Percent Auto 91.1 % (45-73); Platelet Count 288 X10*3/uL (160-400); Red Blood Count 4.49 X10*6/uL (4.20-5.50); Red Cell Distribution Width 17.1 % (11.0-16.0); SCAN SMEAR FLAG 1; White Blood Count 17.9 X10*3/uL (4.8-10.8)
[2021-09-19] MEDS: cloNIDine HCL 0.1 MG TABLET PO (22:12)
[2021-09-19 22:13] VITALS: BP 136/80; PULSE 90; RESP 18; TEMP 37; O2SAT 98
[2021-09-19] MEDS: cloZAPine 25 MG TABLET 50 MG PO (22:15)
[2021-09-19] MEDS: cloZAPine 25 MG TABLET PO (22:15)
[2021-09-19] MEDS: metFORMIN HCl 1,000 MG TABLET 1000 MG PO (22:18)
--- NOTE | 2021-09-19 23:34 | PC.NURSE ---
PT transferred to at 2327, PT signed a CV before leaving the POD.
--- NOTE | 2021-09-20 | ECG_ITS ---
Test Reason : qtc Blood Pressure : / mmHG Vent. Rate : 101 BPM Atrial Rate : 101 BPM P-R Int : 128 ms QRS Dur : 068 ms QT Int : 352 ms P-R-T Axes : 060 064 026 degrees QTc Int : 456 ms Sinus tachycardia Nonspecific ST and T wave abnormality Borderline ECG When compared with ECG of 19-SEP-2021 22:22, No significant change was found Referred By: Fátima Dewitt Electronically Signed By:ESDRAS WATERS
--- NOTE | 2021-09-20 03:10 | PC.ADMIT ---
Patient is a 50 year old woman arrived to on 09/19/21 at 11:59 pm. Admitted for depression and concerns of self harm by both her out patient therapist and her partner of 20 years. She is diagnosed with schizoaffective disorder and has a significant history of attempts of suicide by overdose. She was recently diagnosed with breast cancer and has finished a first round of chemotherapy. Her affect on admission is slow and blocked she is concerned that she has too much money in the bank and she is going to be in trouble She is seen by a psychiatric provider and therapist. She has singed a CV , Labs done in ER show WBC at 17.9 Tox screen negative. orders obtained.
[2021-09-20 06:00] VITALS: BP 123/75; PULSE 107; TEMP 36.4; O2SAT 97
[2021-09-20] MEDS: Omeprazole 20 MG CAPSULE.DR PO (07:03)
[2021-09-20] MEDS: ARIPiprazole 20 MG TABLET PO (08:17)
[2021-09-20] MEDS: cloZAPine 25 MG TABLET PO ×2 (08:17→21:16)
[2021-09-20] MEDS: Docusate Sodium 100 MG CAPSULE PO ×2 (08:17→21:54)
[2021-09-20] MEDS: cloZAPine 25 MG TABLET 50 MG PO ×2 (08:17→21:16)
[2021-09-20] MEDS: Losartan Potassium 25 MG TABLET PO (08:18)
[2021-09-20] MEDS: metFORMIN HCl 1,000 MG TABLET 1000 MG PO ×2 (08:18→21:16)
[2021-09-20] MEDS: cloNIDine HCL 0.1 MG TABLET PO ×2 (08:22→18:21)
[2021-09-20 09:27] LABS: Alanine Aminotransferase 19 U/L (0-31); Albumin Level 4.7 g/dL (3.5-5.0); Alkaline Phosphatase 147 U/L (39-117); Anion Gap 17 (12-20); Aspartate Amino Transferase 13 U/L (5-31); Bilirubin Total 0.6 mg/dL (0.0-1.0); Blood Urea Nitrogen 21 mg/dL (9-16); Carbon Dioxide 25 mmol/L (22-29); Chloride 102 mmol/L (96-108); Cholesterol 208 mg/dL; Creatinine Clr Calc Pharmacy 74.3; Estimated Glomerular Filt Rate > 60; Glucose Fasting 159 mg/dL (60-99); HDL Cholesterol 69 mg/dL; LDL Cholesterol Calculated 109 mg/dl; Sodium 140 mmol/L (135-145); Total Protein 7.6 g/dL (6.5-8.0); Triglycerides 150 mg/dL
--- NOTE | 2021-09-20 15:29 | HO.PSYADMNOT ---
Documented by User: Marci Jones APRN 09/20/21 17:54 HPI Date of Service: 09/20/21 Chief Complaint: Depression Sources of Information: patient interviewed, chart reviewed and crisis/core team assessment reviewed HPI Subjective Notes: Conditional Voluntary and 3 Day (considering) Healthcare Proxy: Yes Guardianship: No Medical Problems Affecting Mental Status: Yes (just completed first chemotherapy intervention for breast cancer.) Narrative: 50 yo female, hx of schizoaffective disorder, depressed type, known to this service, seen by crisis at the request of pt's partner and sister, along with agreement by her therapist. They report a significant mental status change-hearing voices, paranoia, belief that there is a plan against her. Pt's therapist had suggested a day treatment program referral. Pt presented with slowing cognition, thought blocking, with fear (sister reported pt told her she was fearful of incarceration). Pt told team she was not interested in treatment. Family was concerned as by history, pt has a history of suicide attempts, current stressors are significant and they feared she would attempt again. Precipitants include diagnosis of breast cancer-pt completed chemotherapy one-partner is scheduled to return to work next week. Today, pt asked to meet in her room, she was fearful to go out to a conference room. She is not able to articulate how we may be of assistance. She affirms sleep disturbance on and off , anxiety, paranoid thoughts back and forth . She denies SI, she denies perceptual alterations. She reports back and forth medical issues, nothing specific. Call to HCP Kailey who was not available [phone]. Call to Dr. Aleman of [facility]-their offices are closed today due to weather and no messages are being delivered. Past Psychiatric History: IP: 2014-[place]; 2002[place]: [place] [facility] [place]Prozac OD M5; 1993-[place] OP: [facility]- Dr. Aleman; [facility] PHP/Respite: [phone]- [facility] Day Treatment, [facility]CS 2009 Hx [facility] care mgt. Trials: Zyprexa, Prozac, Clozaril 300 mg daily hx, Seorquel, Topiramate, Wellbutrin Medical Evaluation Reviewed: Yes [facility] Medical History (Updated 09/20/21 @ 17:44 by Marci Jones APRN) Arthritis Breast cancer Facial paralysis GERD (gastroesophageal reflux disease) Hearing loss Hiatal hernia Hypercholesterolemia Hypertension Iron deficiency anemia Obesity Schizoaffective disorder Schizophrenia Tachycardia Type 2 diabetes mellitus with hyperglycemia Surgical History Hemiparesis History of eye surgery History of lumpectomy of right breast History of placement of ear tubes Family History: per crisis team: adopted in childhood-one of 4. Symptoms began in her early 20's. First admit in 1993. 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 Sister is a support Partner of 20 years is HCP and is a support Pt is poor historian today due to symptoms and appears confused when asked about family history. Social History: As noted above Substance History: Pt denies Trauma History: Pt does not answer Diagnostics Vital Signs (24Hr): Vital Signs - 24 hr 09/19/21 19:08 09/19/21 22:13 09/20/21 06:00 Temperature 99.1 F 98.6 F 97.5 F Pulse Rate 83 90 107 H Respiratory Rate 17 18 Blood Pressure 127/68 136/80 123/75 Pulse Oximetry 98 97 BMI result Body Mass Index 34.3 Labs Results: 09/19/21 19:58 09/20/21 08:43 Labs: Laboratory Results - last 48 hr 09/19/21 09/19/21 09/19/21 19:00 19:06 19:06 WBC RBC Hgb Hct MCV MCH MCHC RDW Plt Count MPV Immature Gran % (Auto) Neut % (Auto) Lymph % (Auto) Mccormick % (Auto) Eos % (Auto) Baso % (Auto) Lymph # (Auto) Mccormick # (Auto) Eos # (Auto) Baso # (Auto) Abs Immat Gran (auto) Absolute Neuts (auto) Absolute Nucleated RBC Nucleated RBC % (auto) Sodium Potassium Chloride Carbon Dioxide Anion Gap BUN Creatinine Estim Creat Clear Calc Estimated GFR POC Glucose Fasting Glucose Calcium Total Bilirubin AST ALT Alkaline Phosphatase Total Protein Albumin Triglycerides Cholesterol LDL Cholesterol, Calc HDL Cholesterol Urine Color YELLOW Urine Appearance CLEAR Urine pH 6.0 Ur Specific [place] 1.010 Urine Protein NEG Urine Glucose (UA) >=1000 H Urine Ketones 5 Urine Blood TRACE Urine Nitrite NEG Ur Leukocyte Esterase NEG Urine RBC 1-4 Urine WBC 1-4 Ur Squamous Epith Cells 2+ Urine Bacteria 1+ Urine Opiates Screen Not Detected Urine Fentanyl Screen Not Detected Ur Barbiturates Screen Not Detected Ur Phencyclidine Scrn Not Detected Ur Amphetamines Screen Not Detected U Benzodiazepines Scrn Not Detected Urine Cocaine Screen Not Detected U Marijuana (THC) Screen Not Detected COVID-19 ([facility]) Negative COVID-19 Clin Com See Note 09/19/21 09/19/21 09/20/21 19:23 19:58 08:43 WBC 17.9 H RBC 4.49 Hgb 13.6 Hct 40.9 MCV 91.1 MCH 30.3 MCHC 33.3 RDW 17.1 H Plt Count 288 MPV 10.5 Immature Gran % (Auto) 0.6 H Neut % (Auto) 91.1 H Lymph % (Auto) 5.9 L Mccormick % (Auto) 2.2 Eos % (Auto) 0.0 Baso % (Auto) 0.2 Lymph # (Auto) 1.1 L Mccormick # (Auto) 0.4 Eos # (Auto) 0.0 Baso # (Auto) 0.0 Abs Immat Gran (auto) 0.11 H Absolute Neuts (auto) 16.3 H Absolute Nucleated RBC 0.000 Nucleated RBC % (auto) 0.0 Sodium 140 Potassium 4.0 Chloride 102 Carbon Dioxide 25 Anion Gap 17 BUN 21 H D Creatinine 0.82 Estim Creat Clear Calc 74.3 Estimated GFR > 60 POC Glucose 189 H Fasting Glucose 159 H Calcium 10.0 D Total Bilirubin 0.6 AST 13 D ALT 19 Alkaline Phosphatase 147 H Total Protein 7.6 Albumin 4.7 Triglycerides 150 Cholesterol 208 D LDL Cholesterol, Calc 109 HDL Cholesterol 69 D Urine Color Urine Appearance Urine pH Ur Specific [place] Urine Protein Urine Glucose (UA) Urine Ketones Urine Blood Urine Nitrite Ur Leukocyte Esterase Urine RBC Urine WBC Ur Squamous Epith Cells Urine Bacteria Urine Opiates Screen Urine Fentanyl Screen Ur Barbiturates Screen Ur Phencyclidine Scrn Ur Amphetamines Screen U Benzodiazepines Scrn Urine Cocaine Screen U Marijuana (THC) Screen COVID-19 ([facility]) COVID-19 Clin Com Meds/Allergies Meds Home Medications Acetaminophen (Acetaminophen 325 Mg Tablet) 650 mg PO Q6H PRN PRN Reason: Headache/Pain Mild Scale (1-3) Al Hydroxide/Mg Hydroxide (Magnesium Hydrox/Alum Hydrox 30 Ml Oral.Susp) 30 ml PO Q6H PRN PRN Reason: Heartburn/Nausea Aripiprazole (Aripiprazole 20 Mg Tablet) 20 mg PO DAILY [facility] Last Admin: 09/21/21 09:04 Dose: 20 mg Documented by: Atorvastatin Calcium (Atorvastatin Calcium 10 Mg Tablet) 5 mg PO BEDTIME [facility] Last Admin: 09/21/21 21:32 Dose: 5 mg Documented by: Clonidine HCl (Clonidine Hcl 0.1 Mg Tablet) 0.1 mg PO TID [facility]; Protocol Last Admin: 09/21/21 21:33 Dose: 0.1 mg Documented by: Clozapine (Clozapine 25 Mg Tablet) 75 mg PO BID [facility] Last Admin: 09/21/21 21:34 Dose: 75 mg Documented by: Docusate Sodium (Docusate Sodium 100 Mg Capsule) 100 mg PO BEDTIME [facility] Last Admin: 09/21/21 21:33 Dose: 100 mg Documented by: Hydroxyzine HCl (Hydroxyzine Hcl 25 Mg Tablet) 25 mg PO BEDTIME PRN PRN Reason: Anxiety Lorazepam (Lorazepam 0.5 Mg Tablet) 0.25 mg PO Q8H PRN PRN Reason: anxiety, agitation Last Admin: 09/20/21 18:21 Dose: 0.25 mg Documented by: Losartan Potassium (Losartan Potassium 25 Mg Tablet) 25 mg PO DAILY [facility]; Protocol Last Admin: 09/21/21 09:04 Dose: 25 mg Documented by: Magnesium Hydroxide (Milk Of Magnesia 30 Ml Oral.Susp) 30 ml PO DAILY PRN PRN Reason: Constipation Metformin HCl (Metformin Hcl 1,000 Mg Tablet) 1,000 mg PO BID [facility] Last Admin: 09/21/21 21:33 Dose: 1,000 mg Documented by: Non-Formulary Medication (Bupropion Hcl) 100 mg PO QAM [facility] Non-Formulary Medication (Empagliflozin [Jardiance]) 10 mg PO DAILY [facility] Omeprazole (Omeprazole 20 Mg Capsule.Dr) 20 mg PO DAILY@0630 [facility] Last Admin: 09/21/21 09:04 Dose: 20 mg Documented by: Ondansetron HCl (Ondansetron Odt 8 Mg Tab.Rapdis) 8 mg TRANSLINGU Q8H PRN PRN Reason: nausea Trazodone HCl (Trazodone Hcl 50 Mg Tablet) 50 mg PO BEDTIME PRN PRN Reason: Insomnia Allergies Allergies Allergy/AdvReac Type Severity Reaction Status Date / Time lisinopril [LISINOPRIL] Allergy Unknown SWOLLEN Verified 09/17/21 08:42 LIPS, angioedema, swelling Mental Status Exam Mental Status Exam Patient Appearance: Fatigued Patient Orientation: Person and Place Level of Consciousness: Alert Patient Behavior: Guarded, Talkative, Suspicious, Anxious, Fearful, Fatigued, Distractible, Isolative and Poor Eye Contact Mood Description: Suspicious, Withdrawn, Depressed, Fearful, Anxious, Nervous and Apprehensive Affect Description: Constricted Patient Cognition Impaired: Yes Ability to Follow Directions: Good Speech Pattern: Perseverating, Impoverished, Difficulty Finding Words, Spontaneous Speech, Soft-Spoken, Delayed and Long Pauses Memory Description: Remote Impaired and Episodic Impaired Hallucinations: Auditory Delusions: Being Controlled, Paranoid Ideation and Present Perceptual Disturbances: Depersonalization and Derealization Thought Process: Distracted, Rumination, Slowed Thinking and Confusion Thought Content: positive for [place], positive for Perseveration, positive for Poverty of Content, positive for Preoccupation, positive for Thought Blocking, positive for Slowed Thinking and positive for Suicidal Ideation (denies) Depressive Symptoms: Increased Anxiety, Insomnia, Diff. Making Decisions, Difficulty Sleeping, Unhappiness, Increased Fatigue, Thoughts of /Suicide (denies) and Difficulty Concentrating Abnormal Motor Activity Signs and Symptoms: Psychomotor Retardation Judgement: Poor Assessment & Plan Assessment & Plan (1) Schizoaffective disorder: Status: Acute Code(s): F25.9 - Schizoaffective disorder, unspecified (2) Invasive ductal carcinoma of right breast: Status: Acute Code(s): C50.911 - Malignant neoplasm of unspecified site of right female breast (3) Hypertension: Status: Acute Qualifiers: Hypertension type: essential hypertension Qualified Code(s): I10 - Essential (primary) hypertension Code(s): I10 - Essential (primary) hypertension (4) Hypercholesterolemia: Status: Acute Code(s): E78.00 - Pure hypercholesterolemia, unspecified (5) Type 2 diabetes mellitus with hyperglycemia: Status: Acute Qualifiers: Diabetes mellitus terminal manager insulin use: without skilled nursing use Qualified Code(s): E11.65 - Type 2 diabetes mellitus with hyperglycemia Code(s): E11.65 - Type 2 diabetes mellitus with hyperglycemia (6) GERD (gastroesophageal reflux disease): Status: Acute Qualifiers: Esophagitis presence: without esophagitis Qualified Code(s): K21.9 - Gastro-esophageal reflux disease without esophagitis Code(s): K21.9 - Gastro-esophageal reflux disease without esophagitis Plan 50 yo female, hx of schizoaffective disorder, depressed with R breast cancer, having just completed first cycle of chemotherapy. Pt's partner and sister report to crisis team that pt has had a significant mental status change with psychotic symptoms, paranoia, perceptual alterations, poor sleep and significant thought blocking. Pt denies SI, HI. Today she is a very poor historian-almost pre-catatonic at times, considering signing a three day notice of intent. Team report by history she may not be comfortable in this facility. Calls to partner-voicemail gave the name as Barbara so message was not left and Dr. Aleman, who is not available today due to weather. Plan: Collateral contacts, family and providers-question of adverse response to chemotherapy Urine culture, diagnostics Lorazepam 0.25 mg tid prn anxiety, agitation Observation of symptoms, behavior. Patient educated on: therapeutic strategies Informed Consent: further education needed Reason for continued inpatient stay Substantial Risk for: harm to self, inability to function, rapid decompensation and med/psych decompensation
[2021-09-20 17:30] VITALS: BP 148/88; PULSE 147; RESP 18; TEMP 36.3; O2SAT 98
[2021-09-20 18:02] VITALS: PULSE 150
[2021-09-20] MEDS: LORazepam 0.5 MG TABLET 0.25 MG PO (18:21)
[2021-09-20 19:41] LABS: B Type Natriuretic Peptide < 10 pg/mL (<100)
[2021-09-20 21:09] VITALS: BP 121/85; PULSE 90; RESP 18
[2021-09-20] MEDS: Atorvastatin Calcium 10 MG TABLET 5 MG PO (21:16)
[2021-09-21 08:50] LABS: Glucose, Whole Blood 196 mg/dL (60-115)
[2021-09-21 09:00] VITALS: BP 134/86; PULSE 84; RESP 14; O2SAT 96
[2021-09-21 09:02] LABS: Estimated Average Glucose 169 mg/dL; Hemoglobin A1c % 7.5 %
[2021-09-21 09:04] LABS: Thyroid Stimulating Hormone 1.97 uIU/mL (0.32-4.0); Vitamin D 25-OH Total 35.7 ng/mL (>30)
[2021-09-21] MEDS: Losartan Potassium 25 MG TABLET PO (09:04)
[2021-09-21] MEDS: metFORMIN HCl 1,000 MG TABLET 1000 MG PO ×2 (09:04→21:33)
[2021-09-21] MEDS: Omeprazole 20 MG CAPSULE.DR PO (09:04)
[2021-09-21] MEDS: cloZAPine 25 MG TABLET PO (09:04)
[2021-09-21] MEDS: ARIPiprazole 20 MG TABLET PO (09:04)
[2021-09-21] MEDS: cloNIDine HCL 0.1 MG TABLET PO ×3 (09:04→21:33)
[2021-09-21] MEDS: cloZAPine 25 MG TABLET 50 MG PO (09:04)
[2021-09-21 13:00] VITALS: BP 135/76; PULSE 113; RESP 14; O2SAT 99
[2021-09-21 20:57] VITALS: BP 133/81; PULSE 101; TEMP 36.6; O2SAT 100
[2021-09-21] MEDS: Atorvastatin Calcium 10 MG TABLET 5 MG PO (21:32)
[2021-09-21] MEDS: Docusate Sodium 100 MG CAPSULE PO (21:33)
[2021-09-21] MEDS: cloZAPine 25 MG TABLET 75 MG PO (21:34)
--- NOTE | 2021-09-21 22:29 | HO.PSYCHPN ---
Subjective Subjective Date of Service: 09/21/21 Reason For Visit: Depression paranoia Subjective Notes: Conditional Voluntary Interim History: Patient has been mostly isolative in her room withdrawn guarded thought blocking patient perplexed Mental Status Exam Mental Status Exam Patient Appearance: Fatigued Patient Orientation: Person and Place Level of Consciousness: Alert Patient Behavior: Guarded, Suspicious, Anxious, Fearful, Fatigued, Distractible, Isolative and Poor Eye Contact Mood Description: Suspicious, Withdrawn, Depressed, Fearful, Anxious, Nervous and Apprehensive Affect Description: Constricted Patient Cognition Impaired: Yes Ability to Follow Directions: Good Speech Pattern: Perseverating, Impoverished, Difficulty Finding Words, Spontaneous Speech, Soft-Spoken, Delayed and Long Pauses Memory Description: Remote Impaired and Episodic Impaired Hallucinations: Auditory Delusions: Being Controlled, Paranoid Ideation and Present Perceptual Disturbances: Depersonalization and Derealization Thought Process: Distracted, Rumination, Slowed Thinking and Confusion Thought Content: positive for [place], positive for Perseveration, positive for Poverty of Content, positive for Preoccupation, positive for Thought Blocking, positive for Slowed Thinking and positive for Suicidal Ideation (denies) Depressive Symptoms: Increased Anxiety, Insomnia, Diff. Making Decisions, Difficulty Sleeping, Unhappiness, Increased Fatigue, Thoughts of /Suicide (denies) and Difficulty Concentrating Abnormal Motor Activity Signs and Symptoms: Psychomotor Retardation Judgement: Poor Diagnostics Vital Signs (24Hr): Vital Signs - 24 hr 09/21/21 09:00 09/21/21 13:00 09/21/21 20:57 Temperature 97.8 F Pulse Rate 84 113 H 101 H Respiratory Rate 14 14 Blood Pressure 134/86 135/76 133/81 Pulse Oximetry 96 99 100 BMI result Body Mass Index 34.3 Labs Results: 09/19/21 19:58 09/20/21 08:43 Labs: Laboratory Results - last 48 hr 09/20/21 09/20/21 09/21/21 08:43 19:12 08:07 Sodium 140 Potassium 4.0 Chloride 102 Carbon Dioxide 25 Anion Gap 17 BUN 21 H D Creatinine 0.82 Estim Creat Clear Calc 74.3 Estimated GFR > 60 POC Glucose Fasting Glucose 159 H Estimat Average Glucose 169 Hemoglobin A1c % 7.5 Calcium 10.0 D Total Bilirubin 0.6 AST 13 D ALT 19 Alkaline Phosphatase 147 H Troponin I High Sens 4.0 B-Natriuretic Peptide < 10 Total Protein 7.6 Albumin 4.7 Triglycerides 150 Cholesterol 208 D LDL Cholesterol, Calc 109 HDL Cholesterol 69 D 25-OH Vitamin D Total TSH 09/21/21 09/21/21 08:07 08:45 Sodium Potassium Chloride Carbon Dioxide Anion Gap BUN Creatinine Estim Creat Clear Calc Estimated GFR POC Glucose 196 H Fasting Glucose Estimat Average Glucose Hemoglobin A1c % Calcium Total Bilirubin AST ALT Alkaline Phosphatase Troponin I High Sens B-Natriuretic Peptide Total Protein Albumin Triglycerides Cholesterol LDL Cholesterol, Calc HDL Cholesterol 25-OH Vitamin D Total 35.7 TSH 1.97 Medications Medications Current Medications Acetaminophen (Acetaminophen 325 Mg Tablet) 650 mg PO Q6H PRN PRN Reason: Headache/Pain Mild Scale (1-3) Al Hydroxide/Mg Hydroxide (Magnesium Hydrox/Alum Hydrox 30 Ml Oral.Susp) 30 ml PO Q6H PRN PRN Reason: Heartburn/Nausea Aripiprazole (Aripiprazole 20 Mg Tablet) 20 mg PO DAILY [facility] Last Admin: 09/21/21 09:04 Dose: 20 mg Documented by: Atorvastatin Calcium (Atorvastatin Calcium 10 Mg Tablet) 5 mg PO BEDTIME [facility] Last Admin: 09/21/21 21:32 Dose: 5 mg Documented by: Clonidine HCl (Clonidine Hcl 0.1 Mg Tablet) 0.1 mg PO TID [facility]; Protocol Last Admin: 09/21/21 21:33 Dose: 0.1 mg Documented by: Clozapine (Clozapine 25 Mg Tablet) 75 mg PO BID [facility] Last Admin: 09/21/21 21:34 Dose: 75 mg Documented by: Docusate Sodium (Docusate Sodium 100 Mg Capsule) 100 mg PO BEDTIME [facility] Last Admin: 09/21/21 21:33 Dose: 100 mg Documented by: Hydroxyzine HCl (Hydroxyzine Hcl 25 Mg Tablet) 25 mg PO BEDTIME PRN PRN Reason: Anxiety Lorazepam (Lorazepam 0.5 Mg Tablet) 0.25 mg PO Q8H PRN PRN Reason: anxiety, agitation Last Admin: 09/20/21 18:21 Dose: 0.25 mg Documented by: Losartan Potassium (Losartan Potassium 25 Mg Tablet) 25 mg PO DAILY [facility]; Protocol Last Admin: 09/21/21 09:04 Dose: 25 mg Documented by: Magnesium Hydroxide (Milk Of Magnesia 30 Ml Oral.Susp) 30 ml PO DAILY PRN PRN Reason: Constipation Metformin HCl (Metformin Hcl 1,000 Mg Tablet) 1,000 mg PO BID [facility] Last Admin: 09/21/21 21:33 Dose: 1,000 mg Documented by: Non-Formulary Medication (Bupropion Hcl) 100 mg PO QAM [facility] Non-Formulary Medication (Empagliflozin [Jardiance]) 10 mg PO DAILY [facility] Omeprazole (Omeprazole 20 Mg Capsule.Dr) 20 mg PO DAILY@0630 [facility] Last Admin: 09/21/21 09:04 Dose: 20 mg Documented by: Ondansetron HCl (Ondansetron Odt 8 Mg Tab.Rapdis) 8 mg TRANSLINGU Q8H PRN PRN Reason: nausea Trazodone HCl (Trazodone Hcl 50 Mg Tablet) 50 mg PO BEDTIME PRN PRN Reason: Insomnia Allergies Allergies Allergy/AdvReac Type Severity Reaction Status Date / Time lisinopril [LISINOPRIL] Allergy Unknown SWOLLEN Verified 09/17/21 08:42 LIPS, angioedema, swelling Assessment & Plan Assessment & Plan (1) Schizoaffective disorder: Status: Acute Code(s): F25.9 - Schizoaffective disorder, unspecified (2) Invasive ductal carcinoma of right breast: Status: Acute Code(s): C50.911 - Malignant neoplasm of unspecified site of right female breast (3) Hypertension: Qualifiers: Hypertension type: essential hypertension Qualified Code(s): I10 - Essential (primary) hypertension Status: Acute Code(s): I10 - Essential (primary) hypertension (4) Hypercholesterolemia: Status: Acute Code(s): E78.00 - Pure hypercholesterolemia, unspecified (5) Type 2 diabetes mellitus with hyperglycemia: Qualifiers: 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: without shelter use Qualified Code(s): E11.65 - Type 2 diabetes mellitus with hyperglycemia Status: Acute Code(s): E11.65 - Type 2 diabetes mellitus with hyperglycemia Assessment and Plan: Continue metformin Jardiance not on formulary monitor point of care (6) GERD (gastroesophageal reflux disease): Qualifiers: Esophagitis presence: without esophagitis Qualified Code(s): K21.9 - Gastro-esophageal reflux disease without esophagitis Status: Acute Code(s): K21.9 - Gastro-esophageal reflux disease without esophagitis Plan 50 yo female, hx of schizoaffective disorder, depressed with R breast cancer, having just completed first cycle of chemotherapy. Pt's partner and sister report to crisis team that pt has had a significant mental status change with psychotic symptoms, paranoia, perceptual alterations, poor sleep and significant thought blocking. Pt denies SI, HI. Today she is a very poor historian-almost pre-catatonic at times, considering signing a three day notice of intent. Team report by history she may not be comfortable in this facility. Assessment plan for 09/21/2021 Continue current medical treatment elevated white blood count noted over the past month question related to cancer treatment. No evidence of infection Patient depressed withdrawn preoccupied patient with recent treatment for ductal carcinoma stress of this might certainly lead to depressive almost catatonic episode Reason for contiued inpatient stay Substantial Risk for: harm to self and inability to function
[2021-09-22] MEDS: ARIPiprazole 20 MG TABLET PO (08:28)
[2021-09-22] MEDS: metFORMIN HCl 1,000 MG TABLET 1000 MG PO ×2 (08:28→19:59)
[2021-09-22] MEDS: Omeprazole 20 MG CAPSULE.DR PO (08:29)
[2021-09-22] MEDS: Losartan Potassium 25 MG TABLET PO (08:29)
[2021-09-22] MEDS: cloNIDine HCL 0.1 MG TABLET PO ×3 (08:29→20:06)
[2021-09-22] MEDS: cloZAPine 25 MG TABLET 75 MG PO ×2 (08:29→19:59)
[2021-09-22 09:00] VITALS: BP 120/86; PULSE 104; RESP 14; O2SAT 96
[2021-09-22] MEDS: buPROPion HCL 100 MG TABLET PO (12:37)
[2021-09-22 13:00] VITALS: BP 125/80; PULSE 112; RESP 16; O2SAT 100
[2021-09-22] MEDS: Atorvastatin Calcium 10 MG TABLET 5 MG PO (20:05)
[2021-09-22] MEDS: Docusate Sodium 100 MG CAPSULE PO (20:06)
[2021-09-22 21:25] LABS: Glucose, Whole Blood 150 mg/dL (60-115)
--- NOTE | 2021-09-22 21:42 | P.PNPSI_ITS ---
Subjective Subjective Date of Service: 09/22/21 Reason For Visit: Depression paranoia Subjective Notes: 3 Day Guardianship: No Interim History: Patient was somewhat more verbal still is thought blocking. Was out of the room more able to discuss her diagnosis of breast cancer and recent chemotherapy remain somewhat isolative and withdrawn Diagnostics Vital Signs (24Hr): Vital Signs - 24 hr 09/22/21 09:00 09/22/21 13:00 Pulse Rate 104 H 112 H Respiratory Rate 14 16 Blood Pressure 120/86 125/80 Pulse Oximetry 96 100 BMI result Body Mass Index 34.3 Labs Results: 09/19/21 19:58 09/20/21 08:43 Labs: Laboratory Results - last 48 hr 09/21/21 09/21/21 09/21/21 08:07 08:07 08:45 POC Glucose 196 H Estimat Average Glucose 169 Hemoglobin A1c % 7.5 25-OH Vitamin D Total 35.7 TSH 1.97 09/22/21 21:03 POC Glucose 150 H Estimat Average Glucose Hemoglobin A1c % 25-OH Vitamin D Total TSH Medications Medications Current Medications Acetaminophen (Acetaminophen 325 Mg Tablet) 650 mg PO Q6H PRN PRN Reason: Headache/Pain Mild Scale (1-3) Al Hydroxide/Mg Hydroxide (Magnesium Hydrox/Alum Hydrox 30 Ml Oral.Susp) 30 ml PO Q6H PRN PRN Reason: Heartburn/Nausea Aripiprazole (Aripiprazole 20 Mg Tablet) 20 mg PO DAILY [facility] Last Admin: 09/22/21 08:28 Dose: 20 mg Documented by: Atorvastatin Calcium (Atorvastatin Calcium 10 Mg Tablet) 5 mg PO BEDTIME [facility] Last Admin: 09/22/21 20:05 Dose: 5 mg Documented by: Bupropion HCl (Bupropion Hcl 100 Mg Tablet) 100 mg PO DAILY [facility] Last Admin: 09/22/21 12:37 Dose: 100 mg Documented by: Clonidine HCl (Clonidine Hcl 0.1 Mg Tablet) 0.1 mg PO TID [facility]; Protocol Last Admin: 09/22/21 20:06 Dose: 0.1 mg Documented by: Clozapine (Clozapine 25 Mg Tablet) 75 mg PO BID [facility] Last Admin: 09/22/21 19:59 Dose: 75 mg Documented by: Docusate Sodium (Docusate Sodium 100 Mg Capsule) 100 mg PO BEDTIME [facility] Last Admin: 09/22/21 20:06 Dose: 100 mg Documented by: Hydroxyzine HCl (Hydroxyzine Hcl 25 Mg Tablet) 25 mg PO BEDTIME PRN PRN Reason: Anxiety Lorazepam (Lorazepam 0.5 Mg Tablet) 0.25 mg PO Q8H PRN PRN Reason: anxiety, agitation Last Admin: 09/20/21 18:21 Dose: 0.25 mg Documented by: Losartan Potassium (Losartan Potassium 25 Mg Tablet) 25 mg PO DAILY [facility]; Protocol Last Admin: 09/22/21 08:29 Dose: 25 mg Documented by: Magnesium Hydroxide (Milk Of Magnesia 30 Ml Oral.Susp) 30 ml PO DAILY PRN PRN Reason: Constipation Metformin HCl (Metformin Hcl 1,000 Mg Tablet) 1,000 mg PO BID [facility] Last Admin: 09/22/21 19:59 Dose: 1,000 mg Documented by: Non-Formulary Medication (Empagliflozin [Jardiance]) 10 mg PO DAILY [facility] Omeprazole (Omeprazole 20 Mg Capsule.Dr) 20 mg PO DAILY@0630 [facility] Last Admin: 09/22/21 08:29 Dose: 20 mg Documented by: Ondansetron HCl (Ondansetron Odt 8 Mg Tab.Rapdis) 8 mg TRANSLINGU Q8H PRN PRN Reason: nausea Trazodone HCl (Trazodone Hcl 50 Mg Tablet) 50 mg PO BEDTIME PRN PRN Reason: Insomnia Allergies Allergies Allergy/AdvReac Type Severity Reaction Status Date / Time lisinopril [LISINOPRIL] Allergy Unknown SWOLLEN Verified 09/17/21 08:42 LIPS, angioedema, swelling Assessment & Plan Assessment & Plan (1) Schizoaffective disorder: Status: Acute Code(s): F25.9 - Schizoaffective disorder, unspecified (2) Invasive ductal carcinoma of right breast: Status: Acute Code(s): C50.911 - Malignant neoplasm of unspecified site of right female breast (3) Hypertension: Qualifiers: Hypertension type: essential hypertension Qualified Code(s): I10 - Essential (primary) hypertension Status: Acute Code(s): I10 - Essential (primary) hypertension (4) Hypercholesterolemia: Status: Acute Code(s): E78.00 - Pure hypercholesterolemia, unspecified (5) Type 2 diabetes mellitus with hyperglycemia: Qualifiers: Diabetes mellitus half-way insulin use: without half-way use Qualified Code(s): E11.65 - Type 2 diabetes mellitus with hyperglycemia Status: Acute Code(s): E11.65 - Type 2 diabetes mellitus with hyperglycemia Assessment and Plan: Continue metformin Jardiance not on formulary monitor point of care (6) GERD (gastroesophageal reflux disease): Qualifiers: Esophagitis presence: without esophagitis Qualified Code(s): K21.9 - Gastro-esophageal reflux disease without esophagitis Status: Acute Code(s): K21.9 - Gastro-esophageal reflux disease without esophagitis Plan 50 yo female, hx of schizoaffective disorder, depressed with R breast cancer, having just completed first cycle of chemotherapy. Pt's partner and sister report to crisis team that pt has had a significant mental status change with psychotic symptoms, paranoia, perceptual alterations, poor sleep and significant thought blocking. Pt denies SI, HI. Today she is a very poor historian-almost pre-catatonic at times, considering signing a three day notice of intent. Team report by history she may not be comfortable in this facility. Assessment plan for 09/21/2021 Continue current medical treatment elevated white blood count noted over the past month question related to cancer treatment. No evidence of infection Patient depressed withdrawn preoccupied patient with recent treatment for ductal carcinoma stress of this might certainly lead to depressive almost catatonic episode 09/22/21 Pt with thought blocking improved from yeterday have restarted wellbutin hosp did not have sr cont clozapine evaluate baseline denies self harm oob more Patient educated on: medication risk/benefits and medical condition Informed Consent: further education needed Reason for contiued inpatient stay Substantial Risk for: harm to self
[2021-09-23 04:32] LABS: Folate 7.4 ng/mL (> or = 4.0); Vitamin B12 > 2000 pg/mL (200-900)
[2021-09-23] MEDS: Omeprazole 20 MG CAPSULE.DR PO (06:49)
[2021-09-23 07:00] LABS: Glucose, Whole Blood 155 mg/dL (60-115)
[2021-09-23] MEDS: metFORMIN HCl 1,000 MG TABLET 1000 MG PO ×2 (08:43→20:13)
[2021-09-23] MEDS: buPROPion HCL 100 MG TABLET PO (08:43)
[2021-09-23] MEDS: Losartan Potassium 25 MG TABLET PO (08:44)
[2021-09-23] MEDS: cloZAPine 25 MG TABLET 75 MG PO ×2 (08:44→20:13)
[2021-09-23] MEDS: ARIPiprazole 20 MG TABLET PO (08:44)
[2021-09-23] MEDS: cloNIDine HCL 0.1 MG TABLET PO ×3 (08:44→20:14)
--- NOTE | 2021-09-23 16:03 | P.PNPSI_ITS ---
Subjective Subjective Date of Service: 09/23/21 Reason For Visit: Depression paranoia Subjective Notes: 3 Day (09/25/21) Healthcare Proxy: No Guardianship: No Medical Problems Affecting Mental Status: No Interim History: Three day notice expires 09/25/21. I have a lot of anxiety and I am thinking too much. I am sleeping, but I did not sleep well last night-anxiety. No, I am not feeling suicidal. Sabra is more engaged today, willing to meet, talkative. We discussed her cancer treatment. She reports the plan is 4 treatments/week, then 1 treatment/week for 4 weeks, then radiation. States she has had 4 thus far-with hair loss and anxiety. States to prepare for treatment Prozac was decreased/stopped and ASA was discontinued. Message x 2 for OP team with [facility]. Pt agrees she would like their input when changing medications. Agreed. Discussed worry about finances-hx of issues with credit cards she reports. Attempted to offer reassurance. Medication Compliance: Yes Side effects from medications: No Attending Groups: No Review of Systems Beginning treatment for breast cancer. Medical Review of Systems: unchanged Review of Systems Reports confusion Psychiatric: Reports abnormal sleep pattern (last night per pt report), Reports anxiety, Reports confusion, Reports depression, Reports difficulty concentrating, Reports anhedonia, Reports mood swings, Reports paranoia and Reports suicidal ideation (denies) Mental Status Exam Mental Status Exam Patient Appearance: Appropriate Patient Orientation: Person, Place, Time and Situation (no, not a good grasp on current situation-paranoia, ?delusional content) Level of Consciousness: Alert Patient Behavior: Appropriate, Guarded, Talkative, Cooperative, Suspicious, Timid, Anxious, Fearful, Fatigued, Distractible, Isolative and Poor Eye Contact Mood Description: Suspicious, Withdrawn, Depressed, Fearful, Anxious, Sad, Nervous and Apprehensive Affect Description: Flat Patient Cognition Impaired: Yes Ability to Follow Directions: Good Speech Pattern: Perseverating, Impoverished, Spontaneous Speech, Soft-Spoken, Delayed and Long Pauses Memory Description: Remote Impaired and Episodic Impaired Hallucinations: None (denies) Delusions: Paranoid Ideation and Present Perceptual Disturbances: Depersonalization and Derealization Thought Process: Distracted, Rumination and Slowed Thinking Thought Content: positive for Obsessional Thoughts, positive for Circumstantial, positive for Perseveration, positive for Poverty of Content, positive for Preoccupation, positive for Thought Blocking, positive for Suicidal Ideation (denies) and positive for Homicidal Ideation (denies) Depressive Symptoms: Increased Anxiety, Difficulty Sleeping (last night pt reports sleep difficulty), Loss of Int. in Activity, Unhappiness, Increased Fatigue, Loss of Energy and Difficulty Concentrating Judgement: Poor Diagnostics Vital Signs (24Hr): BMI result Body Mass Index 34.3 Labs Results: 09/19/21 19:58 09/20/21 08:43 Labs: Laboratory Results - last 48 hr 09/21/21 09/22/21 09/23/21 08:07 21:03 06:55 POC Glucose 150 H 155 H Vitamin B12 > 2000 H Folate 7.4 Medications Medications Current Medications Acetaminophen (Acetaminophen 325 Mg Tablet) 650 mg PO Q6H PRN PRN Reason: Headache/Pain Mild Scale (1-3) Al Hydroxide/Mg Hydroxide (Magnesium Hydrox/Alum Hydrox 30 Ml Oral.Susp) 30 ml PO Q6H PRN PRN Reason: Heartburn/Nausea Aripiprazole (Aripiprazole 20 Mg Tablet) 20 mg PO DAILY [facility] Last Admin: 09/23/21 08:44 Dose: 20 mg Documented by: Atorvastatin Calcium (Atorvastatin Calcium 10 Mg Tablet) 5 mg PO BEDTIME [facility] Last Admin: 09/22/21 20:05 Dose: 5 mg Documented by: Bupropion HCl (Bupropion Hcl 100 Mg Tablet) 100 mg PO DAILY [facility] Last Admin: 09/23/21 08:43 Dose: 100 mg Documented by: Clonidine HCl (Clonidine Hcl 0.1 Mg Tablet) 0.1 mg PO TID [facility]; Protocol Last Admin: 09/23/21 14:22 Dose: 0.1 mg Documented by: Clozapine (Clozapine 25 Mg Tablet) 75 mg PO BID [facility] Last Admin: 09/23/21 08:44 Dose: 75 mg Documented by: Docusate Sodium (Docusate Sodium 100 Mg Capsule) 100 mg PO BEDTIME [facility] Last Admin: 09/22/21 20:06 Dose: 100 mg Documented by: Hydroxyzine HCl (Hydroxyzine Hcl 25 Mg Tablet) 25 mg PO BEDTIME PRN PRN Reason: Anxiety Lorazepam (Lorazepam 0.5 Mg Tablet) 0.25 mg PO Q8H PRN PRN Reason: anxiety, agitation Last Admin: 09/20/21 18:21 Dose: 0.25 mg Documented by: Losartan Potassium (Losartan Potassium 25 Mg Tablet) 25 mg PO DAILY [facility]; Protocol Last Admin: 09/23/21 08:44 Dose: 25 mg Documented by: Magnesium Hydroxide (Milk Of Magnesia 30 Ml Oral.Susp) 30 ml PO DAILY PRN PRN Reason: Constipation Metformin HCl (Metformin Hcl 1,000 Mg Tablet) 1,000 mg PO BID [facility] Last Admin: 09/23/21 08:43 Dose: 1,000 mg Documented by: Non-Formulary Medication (Empagliflozin [Jardiance]) 10 mg PO DAILY [facility] Omeprazole (Omeprazole 20 Mg Capsule.Dr) 20 mg PO DAILY@0630 [facility] Last Admin: 09/23/21 06:49 Dose: 20 mg Documented by: Ondansetron HCl (Ondansetron Odt 8 Mg Tab.Rapdis) 8 mg TRANSLINGU Q8H PRN PRN Reason: nausea Trazodone HCl (Trazodone Hcl 50 Mg Tablet) 50 mg PO BEDTIME PRN PRN Reason: Insomnia Allergies Allergies Allergy/AdvReac Type Severity Reaction Status Date / Time lisinopril [LISINOPRIL] Allergy Unknown SWOLLEN Verified 09/17/21 08:42 LIPS, angioedema, swelling Assessment & Plan Assessment & Plan (1) Schizoaffective disorder: Status: Acute Code(s): F25.9 - Schizoaffective disorder, unspecified (2) Invasive ductal carcinoma of right breast: Status: Acute Code(s): C50.911 - Malignant neoplasm of unspecified site of right female breast (3) Hypertension: Qualifiers: Hypertension type: essential hypertension Qualified Code(s): I10 - Essential (primary) hypertension Status: Acute Code(s): I10 - Essential (primary) hypertension (4) Hypercholesterolemia: Status: Acute Code(s): E78.00 - Pure hypercholesterolemia, unspecified (5) Type 2 diabetes mellitus with hyperglycemia: Qualifiers: Diabetes mellitus senior living insulin use: without senior living use Qualified Code(s): E11.65 - Type 2 diabetes mellitus with hyperglycemia Status: Acute Code(s): E11.65 - Type 2 diabetes mellitus with hyperglycemia Assessment and Plan: Continue metformin Jardiance not on formulary monitor point of care (6) GERD (gastroesophageal reflux disease): Qualifiers: Esophagitis presence: without esophagitis Qualified Code(s): K21.9 - Gastro-esophageal reflux disease without esophagitis Status: Acute Code(s): K21.9 - Gastro-esophageal reflux disease without esophagitis Plan 50 yo female, hx of schizoaffective disorder, depressed with R breast cancer, having just completed first cycle of chemotherapy. Pt's partner and sister report to crisis team that pt has had a significant mental status change with psychotic symptoms, paranoia, perceptual alterations, poor sleep and significant thought blocking. Pt denies SI, HI. Today she is a very poor historian-almost pre-catatonic at times, considering signing a three day notice of intent. Team report by history she may not be comfortable in this facility. Assessment plan for 09/21/2021 Continue current medical treatment elevated white blood count noted over the past month question related to cancer treatment. No evidence of infection Patient depressed withdrawn preoccupied patient with recent treatment for ductal carcinoma stress of this might certainly lead to depressive almost catatonic episode 09/22/21 Pt with thought blocking improved from yeterday have restarted wellbutin hosp did not have sr cont clozapine evaluate baseline denies self harm oob more 09/23/21 Continue current plan of care. Collateral contacts with OP team, oncology. I spent minutes with the patient and/or on the patient floor today, greater than?50% of which was spent counseling/coordinating care. Patient educated on: diagnosis, medication risk/benefits, therapeutic strategies and medical condition Informed Consent: further education needed Reason for contiued inpatient stay Substantial Risk for: inability to function and rapid decompensation
[2021-09-23 19:47] VITALS: BP 139/82; PULSE 85; RESP 17; TEMP 35.8; O2SAT 100
[2021-09-23] MEDS: Docusate Sodium 100 MG CAPSULE PO (20:13)
[2021-09-23] MEDS: Atorvastatin Calcium 10 MG TABLET 5 MG PO (20:14)
[2021-09-24] MEDS: Omeprazole 20 MG CAPSULE.DR PO (06:15)
[2021-09-24] MEDS: cloNIDine HCL 0.1 MG TABLET PO ×3 (08:46→21:31)
[2021-09-24] MEDS: buPROPion HCL 100 MG TABLET PO (08:47)
[2021-09-24] MEDS: Losartan Potassium 25 MG TABLET PO (08:47)
[2021-09-24] MEDS: metFORMIN HCl 1,000 MG TABLET 1000 MG PO ×2 (08:47→21:31)
[2021-09-24] MEDS: ARIPiprazole 20 MG TABLET PO (08:47)
[2021-09-24] MEDS: cloZAPine 25 MG TABLET 75 MG PO ×2 (08:48→21:31)
[2021-09-24 09:00] VITALS: BP 137/85; PULSE 95; RESP 16
[2021-09-24 09:06] LABS: Glucose, Whole Blood 177 mg/dL (60-115)
[2021-09-24 13:00] VITALS: BP 125/72; PULSE 100; RESP 16
[2021-09-24 16:35] VITALS: BP 135/75; PULSE 98
--- NOTE | 2021-09-24 18:54 | P.PNPSI_ITS ---
Subjective Subjective Date of Service: 09/24/21 Reason For Visit: Depression paranoia Subjective Notes: 3 Day (09/25/21) Healthcare Proxy: No Guardianship: No Medical Problems Affecting Mental Status: No Interim History: Sabra agrees to meet-reports depressive sx are a 2, anxiety is 2-3. Lorazepam scheduled in addition to prn to assist with sleep/anxiety mgt, however, pt refusing today. Discussed care with [facility] oncology-pt's nurse Yajaira visited pt. Pt told Yajaira she did not have breast cancer. She tells caption writer that she is concerned today about having committed a financial crime. Thought blocking present, pt able to attend a structured art group with encouragement. Discussed Abilify titration. Message left with [facility] to discuss OP med trials. Pt, with tw today is more verbal about symptoms she has been struggling with, however, she appears to not define these as symptoms, but as crimes. States partner will be here at 7pm and is willing to have a meeting tomorrow if partner is available. Medication Compliance: No Side effects from medications: No Attending Groups: Intermittent Review of Systems Acute medical concerns: Yes Breast cancer-currently in treatment Medical Review of Systems: unchanged Review of Systems Reports behavioral changes and Reports confusion Psychiatric: Reports anxiety, Reports behavioral changes, Reports confusion, Reports difficulty concentrating and Reports paranoia Mental Status Exam Mental Status Exam Patient Appearance: Appropriate Patient Orientation: Person, Place, Time and Situation (no, not a good grasp on current situation-paranoia, ?delusional content) Level of Consciousness: Alert Patient Behavior: Appropriate, Guarded, Talkative, Cooperative, Suspicious, Timid, Anxious, Fearful, Fatigued, Distractible, Isolative and Poor Eye Contact Mood Description: Suspicious, Withdrawn, Depressed, Fearful, Anxious, Sad, Nervous and Apprehensive Affect Description: Flat Patient Cognition Impaired: Yes Ability to Follow Directions: Good Speech Pattern: Perseverating, Impoverished, Spontaneous Speech, Soft-Spoken, Delayed and Long Pauses Memory Description: Remote Impaired and Episodic Impaired Hallucinations: None (denies) Delusions: Paranoid Ideation and Present Perceptual Disturbances: Depersonalization and Derealization Thought Process: Distracted, Rumination and Slowed Thinking Thought Content: positive for Obsessional Thoughts, positive for Circumstantial, positive for Perseveration, positive for Poverty of Content, positive for Preoccupation, positive for Thought Blocking, positive for Suicidal Ideation (denies) and positive for Homicidal Ideation (denies) Depressive Symptoms: Increased Anxiety, Difficulty Sleeping (last night pt reports sleep difficulty), Loss of Int. in Activity, Unhappiness, Increased Fatigue, Loss of Energy and Difficulty Concentrating Judgement: Poor Diagnostics Vital Signs (24Hr): Vital Signs - 24 hr 09/23/21 19:47 09/24/21 09:00 09/24/21 13:00 Temperature 96.5 F L Pulse Rate 85 95 100 Respiratory Rate 17 16 16 Blood Pressure 139/82 137/85 125/72 Pulse Oximetry 100 09/24/21 16:35 Temperature Pulse Rate 98 Respiratory Rate Blood Pressure 135/75 Pulse Oximetry BMI result Body Mass Index 34.3 Labs Results: 09/19/21 19:58 09/20/21 08:43 Labs: Laboratory Results - last 48 hr 09/21/21 09/22/21 09/23/21 08:07 21:03 06:55 POC Glucose 150 H 155 H Vitamin B12 > 2000 H Folate 7.4 09/24/21 09:02 POC Glucose 177 H Vitamin B12 Folate Medications Medications Current Medications Acetaminophen (Acetaminophen 325 Mg Tablet) 650 mg PO Q6H PRN PRN Reason: Headache/Pain Mild Scale (1-3) Al Hydroxide/Mg Hydroxide (Magnesium Hydrox/Alum Hydrox 30 Ml Oral.Susp) 30 ml PO Q6H PRN PRN Reason: Heartburn/Nausea Aripiprazole (Aripiprazole 20 Mg Tablet) 20 mg PO DAILY [facility] Last Admin: 09/24/21 08:47 Dose: 20 mg Documented by: Atorvastatin Calcium (Atorvastatin Calcium 10 Mg Tablet) 5 mg PO BEDTIME [facility] Last Admin: 09/23/21 20:14 Dose: 5 mg Documented by: Bupropion HCl (Bupropion Hcl 100 Mg Tablet) 100 mg PO DAILY [facility] Last Admin: 09/24/21 08:47 Dose: 100 mg Documented by: Clonidine HCl (Clonidine Hcl 0.1 Mg Tablet) 0.1 mg PO TID [facility]; Protocol Last Admin: 09/24/21 15:05 Dose: 0.1 mg Documented by: Clozapine (Clozapine 25 Mg Tablet) 75 mg PO BID [facility] Last Admin: 09/24/21 08:48 Dose: 75 mg Documented by: Docusate Sodium (Docusate Sodium 100 Mg Capsule) 100 mg PO BEDTIME [facility] Last Admin: 09/23/21 20:13 Dose: 100 mg Documented by: Hydroxyzine HCl (Hydroxyzine Hcl 25 Mg Tablet) 25 mg PO BEDTIME PRN PRN Reason: Anxiety Lorazepam (Lorazepam 0.5 Mg Tablet) 0.25 mg PO Q8H PRN PRN Reason: anxiety, agitation Last Admin: 09/20/21 18:21 Dose: 0.25 mg Documented by: Lorazepam (Lorazepam 0.5 Mg Tablet) 0.25 mg PO TID [facility] Last Admin: 09/24/21 15:06 Dose: Not Given Documented by: Losartan Potassium (Losartan Potassium 25 Mg Tablet) 25 mg PO DAILY [facility]; Protocol Last Admin: 09/24/21 08:47 Dose: 25 mg Documented by: Magnesium Hydroxide (Milk Of Magnesia 30 Ml Oral.Susp) 30 ml PO DAILY PRN PRN Reason: Constipation Metformin HCl (Metformin Hcl 1,000 Mg Tablet) 1,000 mg PO BID [facility] Last Admin: 09/24/21 08:47 Dose: 1,000 mg Documented by: Non-Formulary Medication (Empagliflozin [Jardiance]) 10 mg PO DAILY [facility] Omeprazole (Omeprazole 20 Mg Capsule.Dr) 20 mg PO DAILY@0630 [facility] Last Admin: 09/24/21 06:15 Dose: 20 mg Documented by: Ondansetron HCl (Ondansetron Odt 8 Mg Tab.Rapdis) 8 mg TRANSLINGU Q8H PRN PRN Reason: nausea Trazodone HCl (Trazodone Hcl 50 Mg Tablet) 50 mg PO BEDTIME PRN PRN Reason: Insomnia Allergies Allergies Allergy/AdvReac Type Severity Reaction Status Date / Time lisinopril [LISINOPRIL] Allergy Unknown SWOLLEN Verified 09/17/21 08:42 LIPS, angioedema, swelling Assessment & Plan Assessment & Plan (1) Schizoaffective disorder: Status: Acute Code(s): F25.9 - Schizoaffective disorder, unspecified (2) Invasive ductal carcinoma of right breast: Status: Acute Code(s): C50.911 - Malignant neoplasm of unspecified site of right female breast (3) Hypertension: Qualifiers: Hypertension type: essential hypertension Qualified Code(s): I10 - Essential (primary) hypertension Status: Acute Code(s): I10 - Essential (primary) hypertension (4) Hypercholesterolemia: Status: Acute Code(s): E78.00 - Pure hypercholesterolemia, unspecified (5) Type 2 diabetes mellitus with hyperglycemia: Qualifiers: Diabetes mellitus chcf insulin use: without intermediate teacher use Qualified Code(s): E11.65 - Type 2 diabetes mellitus with hyperglycemia Status: Acute Code(s): E11.65 - Type 2 diabetes mellitus with hyperglycemia Assessment and Plan: Continue metformin Jardiance not on formulary monitor point of care (6) GERD (gastroesophageal reflux disease): Qualifiers: Esophagitis presence: without esophagitis Qualified Code(s): K21.9 - Gastro-esophageal reflux disease without esophagitis Status: Acute Code(s): K21.9 - Gastro-esophageal reflux disease without esophagitis Plan 50 yo female, hx of schizoaffective disorder, depressed with R breast cancer, having just completed first cycle of chemotherapy. Pt's partner and sister report to crisis team that pt has had a significant mental status change with psychotic symptoms, paranoia, perceptual alterations, poor sleep and significant thought blocking. Pt denies SI, HI. Today she is a very poor historian-almost pre-catatonic at times, considering signing a three day notice of intent. Team report by history she may not be comfortable in this facility. Assessment plan for 09/21/2021 Continue current medical treatment elevated white blood count noted over the past month question related to cancer treatment. No evidence of infection Patient depressed withdrawn preoccupied patient with recent treatment for ductal carcinoma stress of this might certainly lead to depressive almost catatonic episode 09/22/21 Pt with thought blocking improved from yeterday have restarted wellbutin hosp did not have sr cont clozapine evaluate baseline denies self harm oob more 09/23/21 Continue current plan of care. Collateral contacts with OP team, oncology. 09/24/21 Increase Abilify to 30 mg daily Pt currently refusing Lorazepam TDN expires 09/25/21-will file for civil commitment if pt persists in wanting discharge I spent minutes with the patient and/or on the patient floor today, greater than?50% of which was spent counseling/coordinating care. Patient educated on: medication risk/benefits and therapeutic strategies Informed Consent: does not understand Reason for contiued inpatient stay Substantial Risk for: harm to self, inability to function and rapid decom pensation
[2021-09-24] MEDS: LORazepam 0.5 MG TABLET 0.25 MG PO (21:29)
[2021-09-24] MEDS: Atorvastatin Calcium 10 MG TABLET 5 MG PO (21:29)
[2021-09-24] MEDS: Docusate Sodium 100 MG CAPSULE PO (21:31)
[2021-09-24 21:32] VITALS: BP 130/85; PULSE 80
[2021-09-25 08:42] LABS: Glucose, Whole Blood 169 mg/dL (60-115)
[2021-09-25 09:00] VITALS: BP 142/75; PULSE 107; RESP 16
[2021-09-25] MEDS: Losartan Potassium 25 MG TABLET PO (09:06)
[2021-09-25] MEDS: ARIPiprazole 30 MG TABLET PO (09:06)
[2021-09-25] MEDS: LORazepam 0.5 MG TABLET 0.25 MG PO ×3 (09:06→21:23)
[2021-09-25] MEDS: buPROPion HCL 100 MG TABLET PO (09:06)
[2021-09-25] MEDS: Omeprazole 20 MG CAPSULE.DR PO (09:06)
[2021-09-25] MEDS: metFORMIN HCl 1,000 MG TABLET 1000 MG PO ×2 (09:06→21:23)
[2021-09-25] MEDS: cloNIDine HCL 0.1 MG TABLET PO ×3 (09:06→21:23)
[2021-09-25] MEDS: cloZAPine 25 MG TABLET 75 MG PO ×2 (09:07→21:23)
[2021-09-25 13:00] VITALS: BP 134/72; PULSE 100; RESP 16
[2021-09-25 18:00] VITALS: BP 122/75; PULSE 107; RESP 18; TEMP 36.7; O2SAT 99
--- NOTE | 2021-09-25 19:57 | P.PNPSI_ITS ---
Subjective Subjective Date of Service: 09/25/21 Reason For Visit: Depression paranoia Subjective Notes: Section 7 Healthcare Proxy: No Guardianship: No Medical Problems Affecting Mental Status: No Interim History: Civil commitment application filed. Isolative, however, she is spending more time in milieu. Tolerating Abilify increase Reports she has committed financial crimes but was not aware that she did this. When she attempts to describe she is unclear what she has done except I tried to budget and save money. Discussed the cancer and treatment- I don't want to have cancer. Medication Compliance: Yes Side effects from medications: No Attending Groups: Intermittent Review of Systems Acute medical concerns: No Medical Review of Systems: unchanged Review of Systems Reports behavioral changes and Reports confusion Psychiatric: Reports anxiety, Reports behavioral changes, Reports confusion, Reports difficulty concentrating and Reports paranoia Mental Status Exam Mental Status Exam Patient Appearance: Appropriate Patient Orientation: Person, Place, Time and Situation (no, not a good grasp on current situation-paranoia, ?delusional content) Level of Consciousness: Alert Patient Behavior: Appropriate, Guarded, Talkative, Cooperative, Suspicious, Timid, Anxious, Fearful, Fatigued, Distractible, Isolative and Poor Eye Contact Mood Description: Suspicious, Withdrawn, Depressed, Fearful, Anxious, Sad, Nervous and Apprehensive Affect Description: Flat Patient Cognition Impaired: Yes Ability to Follow Directions: Good Speech Pattern: Perseverating, Impoverished, Spontaneous Speech, Soft-Spoken, Delayed and Long Pauses Memory Description: Remote Impaired and Episodic Impaired Hallucinations: None (denies) Delusions: Paranoid Ideation and Present Perceptual Disturbances: Depersonalization and Derealization Thought Process: Distracted, Rumination and Slowed Thinking Thought Content: positive for Obsessional Thoughts, positive for Circumstantial, positive for Perseveration, positive for Poverty of Content, positive for Preoccupation, positive for Thought Blocking, positive for Suicidal Ideation (denies) and positive for Homicidal Ideation (denies) Depressive Symptoms: Increased Anxiety, Difficulty Sleeping (last night pt re ports sleep difficulty), Loss of Int. in Activity, Unhappiness, Increased Fatigue, Loss of Energy and Difficulty Concentrating Judgement: Poor Diagnostics Vital Signs (24Hr): Vital Signs - 24 hr 09/24/21 21:32 09/25/21 09:00 09/25/21 13:00 Pulse Rate 80 107 H 100 Respiratory Rate 16 16 Blood Pressure 130/85 142/75 H 134/72 BMI result Body Mass Index 34.3 Labs Results: 09/19/21 19:58 09/20/21 08:43 Labs: Laboratory Results - last 48 hr 09/24/21 09/25/21 09:02 08:38 POC Glucose 177 H 169 H Medications Medications Current Medications Acetaminophen (Acetaminophen 325 Mg Tablet) 650 mg PO Q6H PRN PRN Reason: Headache/Pain Mild Scale (1-3) Al Hydroxide/Mg Hydroxide (Magnesium Hydrox/Alum Hydrox 30 Ml Oral.Susp) 30 ml PO Q6H PRN PRN Reason: Heartburn/Nausea Aripiprazole (Aripiprazole 30 Mg Tablet) 30 mg PO DAILY [facility] Last Admin: 09/25/21 09:06 Dose: 30 mg Documented by: Atorvastatin Calcium (Atorvastatin Calcium 10 Mg Tablet) 5 mg PO BEDTIME [facility] Last Admin: 09/24/21 21:29 Dose: 5 mg Documented by: Bupropion HCl (Bupropion Hcl 100 Mg Tablet) 100 mg PO DAILY [facility] Last Admin: 09/25/21 09:06 Dose: 100 mg Documented by: Clonidine HCl (Clonidine Hcl 0.1 Mg Tablet) 0.1 mg PO TID [facility]; Protocol Last Admin: 09/25/21 14:46 Dose: 0.1 mg Documented by: Clozapine (Clozapine 25 Mg Tablet) 75 mg PO BID [facility] Last Admin: 09/25/21 09:07 Dose: 75 mg Documented by: Docusate Sodium (Docusate Sodium 100 Mg Capsule) 100 mg PO BEDTIME [facility] Last Admin: 09/24/21 21:31 Dose: 100 mg Documented by: Hydroxyzine HCl (Hydroxyzine Hcl 25 Mg Tablet) 25 mg PO BEDTIME PRN PRN Reason: Anxiety Lorazepam (Lorazepam 0.5 Mg Tablet) 0.25 mg PO Q8H PRN PRN Reason: anxiety, agitation Last Admin: 09/20/21 18:21 Dose: 0.25 mg Documented by: Lorazepam (Lorazepam 0.5 Mg Tablet) 0.25 mg PO TID [facility] Last Admin: 09/25/21 15:06 Dose: 0.25 mg Documented by: Losartan Potassium (Losartan Potassium 25 Mg Tablet) 25 mg PO DAILY [facility]; Pro tocol Last Admin: 09/25/21 09:06 Dose: 25 mg Documented by: Magnesium Hydroxide (Milk Of Magnesia 30 Ml Oral.Susp) 30 ml PO DAILY PRN PRN Reason: Constipation Metformin HCl (Metformin Hcl 1,000 Mg Tablet) 1,000 mg PO BID [facility] Last Admin: 09/25/21 09:06 Dose: 1,000 mg Documented by: Non-Formulary Medication (Empagliflozin [Jardiance]) 10 mg PO DAILY [facility] Omeprazole (Omeprazole 20 Mg Capsule.Dr) 20 mg PO DAILY@0630 [facility] Last Admin: 09/25/21 09:06 Dose: 20 mg Documented by: Ondansetron HCl (Ondansetron Odt 8 Mg Tab.Rapdis) 8 mg TRANSLINGU Q8H PRN PRN Reason: nausea Trazodone HCl (Trazodone Hcl 50 Mg Tablet) 50 mg PO BEDTIME PRN PRN Reason: Insomnia Allergies Allergies Allergy/AdvReac Type Severity Reaction Status Date / Time lisinopril [LISINOPRIL] Allergy Unknown SWOLLEN Verified 09/17/21 08:42 LIPS, angioedema, swelling Assessment & Plan Assessment & Plan (1) Schizoaffective disorder: Status: Acute Code(s): F25.9 - Schizoaffective disorder, unspecified (2) Invasive ductal carcinoma of right breast: Status: Acute Code(s): C50.911 - Malignant neoplasm of unspecified site of right female breast (3) Hypertension: Qualifiers: Hypertension type: essential hypertension Qualified Code(s): I10 - Essential (primary) hypertension Status: Acute Code(s): I10 - Essential (primary) hypertension (4) Hypercholesterolemia: Status: Acute Code(s): E78.00 - Pure hypercholesterolemia, unspecified (5) Type 2 diabetes mellitus with hyperglycemia: Qualifiers: Diabetes mellitus snf insulin use: without snf use Qualified Code(s): E11.65 - Type 2 diabetes mellitus with hyperglycemia Status: Acute Code(s): E11.65 - Type 2 diabetes mellitus with hyperglycemia Assessment and Plan: Continue metformin Jardiance not on formulary monitor point of care (6) GERD (gastroesophageal reflux disease): Qualifiers: Esophagitis presence: without esophagitis Qualified Code(s): K21.9 - Gastro-esophageal reflux disease without esophagitis Status: Acute Code(s): K21.9 - Gastro-esophageal reflux disease without esophagitis Plan 50 yo female, hx of schizoaffective disorder, depressed with R breast cancer, having just completed first cycle of chemotherapy. Pt's partner and sister report to crisis team that pt has had a significant mental status change with psychotic symptoms, paranoia, perceptual alterations, poor sleep and significant thought blocking. Pt denies SI, HI. Today she is a very poor historian-almost pre-catatonic at times, considering signing a three day notice of intent. Team report by history she may not be comfortable in this facility. Assessment plan for 09/21/2021 Continue current medical treatment elevated white blood count noted over the past month question related to cancer treatment. No evidence of infection Patient depressed withdrawn preoccupied patient with recent treatment for ductal carcinoma stress of this might certainly lead to depressive almost catatonic episode 09/22/21 Pt with thought blocking improved from yeterday have restarted wellbutin hosp did not have sr cont clozapine evaluate baseline denies self harm oob more 09/23/21 Continue current plan of care. Collateral contacts with OP team, oncology. 09/24/21 Increase Abilify to 30 mg daily Pt currently refusing Lorazepam TDN expires 09/25/21-will file for civil commitment if pt persists in wanting discharge 09/25/21 Civil commitment filing completed Continue current regime. I spent minutes with the patient and/or on the patient floor today, greater than?50% of which was spent counseling/coordinating care. Informed Consent: does not understand Reason for contiued inpatient stay Substantial Risk for: harm to self, inability to function and rapid decompensation
[2021-09-25] MEDS: Docusate Sodium 100 MG CAPSULE PO (21:23)
[2021-09-25] MEDS: Atorvastatin Calcium 10 MG TABLET 5 MG PO (21:23)
[2021-09-26 07:00] VITALS: BMI 35.6
[2021-09-26 08:05] VITALS: BP 134/77; PULSE 100; RESP 16; TEMP 36.6; O2SAT 97
[2021-09-26] MEDS: Losartan Potassium 25 MG TABLET PO (08:09)
[2021-09-26] MEDS: buPROPion HCL 100 MG TABLET PO (08:09)
[2021-09-26] MEDS: cloNIDine HCL 0.1 MG TABLET PO ×3 (08:09→20:49)
[2021-09-26] MEDS: cloZAPine 25 MG TABLET 75 MG PO ×2 (08:09→20:49)
[2021-09-26] MEDS: LORazepam 0.5 MG TABLET 0.25 MG PO ×3 (08:10→20:50)
[2021-09-26] MEDS: ARIPiprazole 30 MG TABLET PO (08:10)
[2021-09-26] MEDS: metFORMIN HCl 1,000 MG TABLET 1000 MG PO ×2 (08:10→20:49)
[2021-09-26] MEDS: Omeprazole 20 MG CAPSULE.DR PO (08:10)
[2021-09-26 09:09] LABS: Neut%MD 66.4 %; Neutrophils Absolute Auto 3.6 x10*3/uL (2.0-8.3); WBCANC 5.5 X10*3/uL
[2021-09-26 13:00] VITALS: BP 129/71; PULSE 97
--- NOTE | 2021-09-26 19:54 | HO.PSYCHPN ---
Subjective Subjective Date of Service: 09/26/21 Reason For Visit: Depression paranoia Subjective Notes: Section 7 Interim History: How can you stand me, I am such a bad person. I realized today I create things to make my life bad. Reports improvement in sleep quality. Today, however, very negative on herself-blaming, accusatory of self, difficult to accept support. If I were you I would never talk to me again. Medication Compliance: Yes Side effects from medications: No Attending Groups: Intermittent Review of Systems Acute medical concerns: No Medical Review of Systems: unchanged Review of Systems Reports behavioral changes and Reports confusion Psychiatric: Reports anxiety, Reports behavioral changes, Reports confusion, Reports difficulty concentrating and Reports paranoia Mental Status Exam Mental Status Exam Patient Appearance: Appropriate Patient Orientation: Person, Place, Time and Situation (no, not a good grasp on current situation-paranoia, ?delusional content) Level of Consciousness: Alert Patient Behavior: Appropriate, Guarded, Talkative, Cooperative, Suspicious, Timid, Anxious, Fearful, Fatigued, Distractible, Isolative and Poor Eye Contact Mood Description: Suspicious, Withdrawn, Depressed, Fearful, Anxious, Sad, Nervous and Apprehensive Affect Description: Flat Patient Cognition Impaired: Yes Ability to Follow Directions: Good Speech Pattern: Perseverating, Impoverished, Spontaneous Speech, Soft-Spoken, Delayed and Long Pauses Memory Description: Remote Impaired and Episodic Impaired Hallucinations: None (denies) Delusions: Paranoid Ideation and Present Perceptual Disturbances: Depersonalization and Derealization Thought Process: Distracted, Rumination and Slowed Thinking Thought Content: positive for Obsessional Thoughts, positive for Circumstantial, positive for Perseveration, positive for Poverty of Content, positive for Preoccupation, positive for Thought Blocking, positive for Suicidal Ideation (denies) and positive for Homicidal Ideation (denies) Depressive Symptoms: Increased Anxiety, Difficulty Sleeping (last night pt reports sleep difficulty), Loss of Int. in Activity, Unhappiness, Increased Fatigue, Loss of Energy and Difficulty Concentrating Judgement: Poor Diagnostics Vital Signs (24Hr): Vital Signs - 24 hr 09/26/21 08:05 09/26/21 13:00 Temperature 97.9 F Pulse Rate 100 97 Respiratory Rate 16 Blood Pressure 134/77 129/71 Pulse Oximetry 97 BMI result Body Mass Index 35.6 Labs Results: 09/19/21 19:58 09/20/21 08:43 Labs: Laboratory Results - last 48 hr 09/25/21 09/26/21 08:38 08:07 Absolute Neuts (auto) 3.6 POC Glucose 169 H Medications Medications Current Medications Acetaminophen (Acetaminophen 325 Mg Tablet) 650 mg PO Q6H PRN PRN Reason: Headache/Pain Mild Scale (1-3) Al Hydroxide/Mg Hydroxide (Magnesium Hydrox/Alum Hydrox 30 Ml Oral.Susp) 30 ml PO Q6H PRN PRN Reason: Heartburn/Nausea Aripiprazole (Aripiprazole 30 Mg Tablet) 30 mg PO DAILY [facility] Last Admin: 09/26/21 08:10 Dose: 30 mg Documented by: Atorvastatin Calcium (Atorvastatin Calcium 10 Mg Tablet) 5 mg PO BEDTIME [facility] Last Admin: 09/25/21 21:23 Dose: 5 mg Documented by: Bupropion HCl (Bupropion Hcl 100 Mg Tablet) 100 mg PO DAILY [facility] Last Admin: 09/26/21 08:09 Dose: 100 mg Documented by: Clonidine HCl (Clonidine Hcl 0.1 Mg Tablet) 0.1 mg PO TID [facility]; Protocol Last Admin: 09/26/21 14:32 Dose: 0.1 mg Documented by: Clozapine (Clozapine 25 Mg Tablet) 75 mg PO BID [facility] Last Admin: 09/26/21 08:09 Dose: 75 mg Documented by: Docusate Sodium (Docusate Sodium 100 Mg Capsule) 100 mg PO BEDTIME [facility] Last Admin: 09/25/21 21:23 Dose: 100 mg Documented by: Hydroxyzine HCl (Hydroxyzine Hcl 25 Mg Tablet) 25 mg PO BEDTIME PRN PRN Reason: Anxiety Lorazepam (Lorazepam 0.5 Mg Tablet) 0.25 mg PO Q8H PRN PRN Reason: anxiety, agitation Last Admin: 09/20/21 18:21 Dose: 0.25 mg Documented by: Lorazepam (Lorazepam 0.5 Mg Tablet) 0.25 mg PO TID [facility] Last Admin: 09/26/21 14:32 Dose: 0.25 mg Documented by: Losartan Potassium (Losartan Potassium 25 Mg Tablet) 25 mg PO DAILY [facility]; Protocol Last Admin: 09/26/21 08:09 Dose: 25 mg Documented by: Magnesium Hydroxide (Milk Of Magnesia 30 Ml Oral.Susp) 30 ml PO DAILY PRN PRN Reason: Constipation Metformin HCl (Metformin Hcl 1,000 Mg Tablet) 1,000 mg PO BID [facility] Last Admin: 09/26/21 08:10 Dose: 1,000 mg Documented by: Non-Formulary Medication (Empagliflozin [Jardiance]) 10 mg PO DAILY [facility] Omeprazole (Omeprazole 20 Mg Capsule.Dr) 20 mg PO DAILY@0630 [facility] Last Admin: 09/26/21 08:10 Dose: 20 mg Documented by: Ondansetron HCl (Ondansetron Odt 8 Mg Tab.Rapdis) 8 mg TRANSLINGU Q8H PRN PRN Reason: nausea Trazodone HCl (Trazodone Hcl 50 Mg Tablet) 50 mg PO BEDTIME PRN PRN Reason: Insomnia Allergies Allergies Allergy/AdvReac Type Severity Reaction Status Date / Time lisinopril [LISINOPRIL] Allergy Unknown SWOLLEN Verified 09/17/21 08:42 LIPS, angioedema, swelling Assessment & Plan Assessment & Plan (1) Schizoaffective disorder: Status: Acute Code(s): F25.9 - Schizoaffective disorder, unspecified (2) Invasive ductal carcinoma of right breast: Status: Acute Code(s): C50.911 - Malignant neoplasm of unspecified site of right female breast (3) Hypertension: Qualifiers: Hypertension type: essential hypertension Qualified Code(s): I10 - Essential (primary) hypertension Status: Acute Code(s): I10 - Essential (primary) hypertension (4) Hypercholesterolemia: Status: Acute Code(s): E78.00 - Pure hypercholesterolemia, unspecified (5) Type 2 diabetes mellitus with hyperglycemia: Qualifiers: Diabetes mellitus terminal makeup operator insulin use: without terminal makeup operator use Qualified Code(s): E11.65 - Type 2 diabetes mellitus with hyperglycemia Status: Acute Code(s): E11.65 - Type 2 diabetes mellitus with hyperglycemia Assessment and Plan: Continue metformin Jardiance not on formulary monitor point of care (6) GERD (gastroesophageal reflux disease): Qualifiers: Esophagitis presence: without esophagitis Qualified Code(s): K21.9 - Gastro-esophageal reflux disease without esophagitis Status: Acute Code(s): K21.9 - Gastro-esophageal reflux disease without esophagitis Plan 50 yo female, hx of schizoaffective disorder, depressed with R breast cancer, having just completed first cycle of chemotherapy. Pt's partner and sister report to crisis team that pt has had a significant mental status change with psychotic symptoms, paranoia, perceptual alterations, poor sleep and significant thought blocking. Pt denies SI, HI. Today she is a very poor historian-almost pre-catatonic at times, considering signing a three day notice of intent. Team report by history she may not be comfortable in this facility. Assessment plan for 09/21/2021 Continue current medical treatment elevated white blood count noted over the past month question related to cancer treatment. No evidence of infection Patient depressed withdrawn preoccupied patient with recent treatment for ductal carcinoma stress of this might certainly lead to depressive almost catatonic episode 09/22/21 Pt with thought blocking improved from yeterday have restarted wellbutin hosp did not have sr cont clozapine evaluate baseline denies self harm oob more 09/23/21 Continue current plan of care. Collateral contacts with OP team, oncology. 09/24/21 Increase Abilify to 30 mg daily Pt currently refusing Lorazepam TDN expires 09/25/21-will file for civil commitment if pt persists in wanting discharge 09/25/21 Civil commitment filing completed Continue current regime. 09/26/21 Continue current regime I spent minutes with the patient and/or on the patient floor today, greater than?50% of which was spent counseling/coordinating care. Patient educated on: therapeutic strategies Informed Consent: does not understand Reason for contiued inpatient stay Substantial Risk for: inability to function and rapid decompensation
[2021-09-26 20:25] VITALS: BP 136/78; PULSE 80; TEMP 36.5
[2021-09-26] MEDS: Docusate Sodium 100 MG CAPSULE PO (20:49)
[2021-09-26] MEDS: Atorvastatin Calcium 10 MG TABLET 5 MG PO (20:49)
[2021-09-27 08:02] LABS: Glucose, Whole Blood 158 mg/dL (60-115)
[2021-09-27 08:10] VITALS: BP 127/72; PULSE 97; RESP 16
[2021-09-27] MEDS: Losartan Potassium 25 MG TABLET PO (08:10)
[2021-09-27] MEDS: Omeprazole 20 MG CAPSULE.DR PO (08:10)
[2021-09-27] MEDS: ARIPiprazole 30 MG TABLET PO (08:10)
[2021-09-27] MEDS: metFORMIN HCl 1,000 MG TABLET 1000 MG PO ×2 (08:10→20:25)
[2021-09-27] MEDS: cloNIDine HCL 0.1 MG TABLET PO ×3 (08:10→20:25)
[2021-09-27] MEDS: cloZAPine 25 MG TABLET 75 MG PO ×2 (08:11→20:25)
[2021-09-27] MEDS: buPROPion HCL 100 MG TABLET PO (08:11)
[2021-09-27] MEDS: LORazepam 0.5 MG TABLET 0.25 MG PO ×3 (08:11→20:24)
--- NOTE | 2021-09-27 12:32 | HO.PSYCHPN ---
Subjective Subjective Date of Service: 09/27/21 Reason For Visit: Depression paranoia Subjective Notes: Section 7 Healthcare Proxy: No Guardianship: No Medical Problems Affecting Mental Status: No Interim History: Discussed Section VII with Sabra. I understand and believe what you tell me, but then it just goes and I lose it. She spoke with her corporate associate attorney, Mervin Mcmillan and will meet with him on 09/30. Discussed medication changes-increase in Abilify not too helpful-will decrease back to 20 mg and add Risperdal 1. 5mg HS. ANC 3.6 from 16.3 09/27. Medication Compliance: Yes Side effects from medications: No Attending Groups: Intermittent Review of Systems Acute medical concerns: No Medical Review of Systems: unchanged Review of Systems Reports behavioral changes and Reports confusion Psychiatric: Reports anxiety, Reports behavioral changes, Reports confusion, Reports difficulty concentrating and Reports paranoia Mental Status Exam Mental Status Exam Patient Appearance: Appropriate Patient Orientation: Person, Place, Time and Situation (no, not a good grasp on current situation-paranoia, ?delusional content) Level of Consciousness: Alert Patient Behavior: Appropriate, Guarded, Talkative, Cooperative, Suspicious, Timid, Anxious, Fearful, Fatigued, Distractible, Isolative and Poor Eye Contact Mood Description: Suspicious, Withdrawn, Depressed, Fearful, Anxious, Sad, Nervous and Apprehensive Affect Description: Flat Patient Cognition Impaired: Yes Ability to Follow Directions: Good Speech Pattern: Perseverating, Impoverished, Spontaneous Speech, Soft-Spoken, Delayed and Long Pauses Memory Description: Remote Impaired and Episodic Impaired Hallucinations: None (denies) Delusions: Paranoid Ideation and Present Perceptual Disturbances: Depersonalization and Derealization Thought Process: Distracted, Rumination and Slowed Thinking Thought Content: positive for Obsessional Thoughts, positive for Circumstantial, positive for Perseveration, positive for Poverty of Content, positive for Preoccupation, positive for Thought Blocking, positive for Suicidal Ideation (denies) and positive for Homicidal Ideation (denies) Depressive Symptoms: Increased Anxiety, Difficulty Sleeping (last night pt reports sleep difficulty), Loss of Int. in Activity, Unhappiness, Increased Fatigue, Loss of Energy and Difficulty Concentrating Judgement: Poor Diagnostics Vital Signs (24Hr): Vital Signs - 24 hr 09/26/21 13:00 09/26/21 20:25 09/27/21 08:10 Temperature 97.7 F Pulse Rate 97 80 97 Respiratory Rate 16 Blood Pressure 129/71 136/78 127/72 BMI result Body Mass Index 35.6 Labs Results: 09/19/21 19:58 09/20/21 08:43 Labs: Laboratory Results - last 48 hr 09/26/21 09/27/21 08:07 07:58 Absolute Neuts (auto) 3.6 POC Glucose 158 H Medications Medications Current Medications Acetaminophen (Acetaminophen 325 Mg Tablet) 650 mg PO Q6H PRN PRN Reason: Headache/Pain Mild Scale (1-3) Al Hydroxide/Mg Hydroxide (Magnesium Hydrox/Alum Hydrox 30 Ml Oral.Susp) 30 ml PO Q6H PRN PRN Reason: Heartburn/Nausea Aripiprazole (Aripiprazole 30 Mg Tablet) 30 mg PO DAILY [facility] Last Admin: 09/27/21 08:10 Dose: 30 mg Documented by: Atorvastatin Calcium (Atorvastatin Calcium 10 Mg Tablet) 5 mg PO BEDTIME [facility] Last Admin: 09/26/21 20:49 Dose: 5 mg Documented by: Bupropion HCl (Bupropion Hcl 100 Mg Tablet) 100 mg PO DAILY [facility] Last Admin: 09/27/21 08:11 Dose: 100 mg Documented by: Clonidine HCl (Clonidine Hcl 0.1 Mg Tablet) 0.1 mg PO TID [facility]; Protocol Last Admin: 09/27/21 08:10 Dose: 0.1 mg Documented by: Clozapine (Clozapine 25 Mg Tablet) 75 mg PO BID [facility] Last Admin: 09/27/21 08:11 Dose: 75 mg Documented by: Docusate Sodium (Docusate Sodium 100 Mg Capsule) 100 mg PO BEDTIME [facility] Last Admin: 09/26/21 20:49 Dose: 100 mg Documented by: Hydroxyzine HCl (Hydroxyzine Hcl 25 Mg Tablet) 25 mg PO BEDTIME PRN PRN Reason: Anxiety Lorazepam (Lorazepam 0.5 Mg Tablet) 0.25 mg PO Q8H PRN PRN Reason: anxiety, agitation Last Admin: 09/20/21 18:21 Dose: 0.25 mg Documented by: Lorazepam (Lorazepam 0.5 Mg Tablet) 0.25 mg PO TID [facility] Last Admin: 09/27/21 08:11 Dose: 0.25 mg Documented by: Losartan Potassium (Losartan Potassium 25 Mg Tablet) 25 mg PO DAILY [facility]; Protocol Last Admin: 09/27/21 08:10 Dose: 25 mg Documented by: Magnesium Hydroxide (Milk Of Magnesia 30 Ml Oral.Susp) 30 ml PO DAILY PRN PRN Reason: Constipation Metformin HCl (Metformin Hcl 1,000 Mg Tablet) 1,000 mg PO BID [facility] Last Admin: 09/27/21 08:10 Dose: 1,000 mg Documented by: Non-Formulary Medication (Empagliflozin [Jardiance]) 10 mg PO DAILY [facility] Omeprazole (Omeprazole 20 Mg Capsule.Dr) 20 mg PO DAILY@0630 [facility] Last Admin: 09/27/21 08:10 Dose: 20 mg Documented by: Ondansetron HCl (Ondansetron Odt 8 Mg Tab.Rapdis) 8 mg TRANSLINGU Q8H PRN PRN Reason: nausea Trazodone HCl (Trazodone Hcl 50 Mg Tablet) 50 mg PO BEDTIME PRN PRN Reason: Insomnia Allergies Allergies Allergy/AdvReac Type Severity Reaction Status Date / Time lisinopril [LISINOPRIL] Allergy Unknown SWOLLEN Verified 09/17/21 08:42 LIPS, angioedema, swelling Assessment & Plan Assessment & Plan (1) Schizoaffective disorder: Status: Acute Code(s): F25.9 - Schizoaffective disorder, unspecified (2) Invasive ductal carcinoma of right breast: Status: Acute Code(s): C50.911 - Malignant neoplasm of unspecified site of right female breast (3) Hypertension: Qualifiers: Hypertension type: essential hypertension Qualified Code(s): I10 - Essential (primary) hypertension Status: Acute Code(s): I10 - Essential (primary) hypertension (4) Hypercholesterolemia: Status: Acute Code(s): E78.00 - Pure hypercholesterolemia, unspecified (5) Type 2 diabetes mellitus with hyperglycemia: Qualifiers: Diabetes mellitus correction insulin use: without local 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 Qualified Code(s): E11.65 - Type 2 diabetes mellitus with hyperglycemia Status: Acute Code(s): E11.65 - Type 2 diabetes mellitus with hyperglycemia Assessment and Plan: Continue metformin Jardiance not on formulary monitor point of care (6) GERD (gastroesophageal reflux disease): Qualifiers: Esophagitis presence: without esophagitis Qualified Code(s): K21.9 - Gastro-esophageal reflux disease without esophagitis Status: Acute Code(s): K21.9 - Gastro-esophageal reflux disease without esophagitis Plan 50 yo female, hx of schizoaffective disorder, depressed with R breast cancer, having just completed first cycle of chemotherapy. Pt's partner and sister report to crisis team that pt has had a significant mental status change with psychotic symptoms, paranoia, perceptual alterations, poor sleep and significant thought blocking. Pt denies SI, HI. Today she is a very poor historian-almost pre-catatonic at times, considering signing a three day notice of intent. Team report by history she may not be comfortable in this facility. Assessment plan for 09/21/2021 Continue current medical treatment elevated white blood count noted over the past month question related to cancer treatment. No evidence of infection Patient depressed withdrawn preoccupied patient with recent treatment for ductal carcinoma stress of this might certainly lead to depressive almost catatonic episode 09/22/21 Pt with thought blocking improved from yeterday have restarted wellbutin hosp did not have sr cont clozapine evaluate baseline denies self harm oob more 09/23/21 Continue current plan of care. Collateral contacts with OP team, oncology. 09/24/21 Increase Abilify to 30 mg daily Pt currently refusing Lorazepam TDN expires 09/25/21-will file for civil commitment if pt persists in wanting discharge 09/25/21 Civil commitment filing completed Continue current regime. 09/26/21 Continue current regime 09/27/32 Decrease Abilify to 20 mg daily Risperdal 1.5 mg HS I spent minutes with the patient and/or on the patient floor today, greater than?50% of which was spent counseling/coordinating care. Patient educated on: medication risk/benefits Informed Consent: further education needed Reason for contiued inpatient stay Substantial Risk for: inability to function and rapid decompensation
[2021-09-27 14:30] VITALS: BP 132/80; PULSE 112
[2021-09-27 20:05] VITALS: BP 133/77; PULSE 96; TEMP 37.1
[2021-09-27] MEDS: Docusate Sodium 100 MG CAPSULE PO (20:25)
[2021-09-27] MEDS: risperiDONE 0.5 MG TABLET 1.5 MG PO (20:25)
[2021-09-27] MEDS: Atorvastatin Calcium 10 MG TABLET 5 MG PO (20:25)
[2021-09-28] MEDS: Omeprazole 20 MG CAPSULE.DR PO (06:33)
[2021-09-28 06:53] LABS: Glucose, Whole Blood 131 mg/dL (60-115)
[2021-09-28] MEDS: cloZAPine 25 MG TABLET 75 MG PO ×2 (08:12→20:40)
[2021-09-28] MEDS: buPROPion HCL 100 MG TABLET PO (08:12)
[2021-09-28] MEDS: LORazepam 0.5 MG TABLET 0.25 MG PO ×3 (08:12→20:40)
[2021-09-28] MEDS: Losartan Potassium 25 MG TABLET PO (08:12)
[2021-09-28] MEDS: metFORMIN HCl 1,000 MG TABLET 1000 MG PO ×2 (08:12→20:40)
[2021-09-28] MEDS: cloNIDine HCL 0.1 MG TABLET PO ×3 (08:12→20:40)
[2021-09-28] MEDS: ARIPiprazole 20 MG TABLET PO (08:12)
[2021-09-28 08:15] VITALS: BP 128/70; PULSE 97; RESP 16; TEMP 36.4; O2SAT 100
[2021-09-28 10:59] LABS: Creatinine Clr Calc Pharmacy 85.5; Estimated Glomerular Filt Rate > 60
--- NOTE | 2021-09-28 14:44 | HO.PSYCHPN ---
Subjective Subjective Date of Service: 09/28/21 Reason For Visit: Depression paranoia Subjective Notes: Section 7 Interim History: Sabra was withdrawn and somewhat shutdown. She alluded to not being treated well, but then declined further conversation. Mental Status Exam Mental Status Exam Patient Appearance: Appropriate Patient Orientation: Person, Place, Time and Situation (no, not a good grasp on current situation-paranoia, ?delusional content) Level of Consciousness: Alert Patient Behavior: Appropriate, Guarded, Talkative, Cooperative, Suspicious, Timid, Anxious, Fearful, Fatigued, Distractible, Isolative and Poor Eye Contact Mood Description: Suspicious, Withdrawn, Depressed, Fearful, Anxious, Sad, Nervous and Apprehensive Affect Description: Flat Patient Cognition Impaired: Yes Ability to Follow Directions: Good Speech Pattern: Perseverating, Impoverished, Spontaneous Speech, Soft-Spoken, Delayed and Long Pauses Memory Description: Remote Impaired and Episodic Impaired Hallucinations: None (denies) Delusions: Paranoid Ideation and Present Perceptual Disturbances: Depersonalization and Derealization Thought Process: Distracted, Rumination and Slowed Thinking Thought Content: positive for Obsessional Thoughts, positive for Circumstantial, positive for Perseveration, positive for Poverty of Content, positive for Preoccupation, positive for Thought Blocking, positive for Suicidal Ideation (denies) and positive for Homicidal Ideation (denies) Depressive Symptoms: Increased Anxiety, Difficulty Sleeping (last night pt reports sleep difficulty), Loss of Int. in Activity, Unhappiness, Increased Fatigue, Loss of Energy and Difficulty Concentrating Judgement: Poor Diagnostics Vital Signs (24Hr): Vital Signs - 24 hr 09/27/21 20:05 09/28/21 08:15 Temperature 98.7 F 97.6 F Pulse Rate 96 97 Respiratory Rate 16 Blood Pressure 133/77 128/70 Pulse Oximetry 100 BMI result Body Mass Index 35.6 Labs Results: 09/19/21 19:58 09/28/21 10:40 Labs: Laboratory Results - last 48 hr 09/27/21 09/28/21 09/28/21 07:58 06:31 10:40 Creatinine 0.72 Estim Creat Clear Calc 85.5 Estimated GFR > 60 POC Glucose 158 H 131 H Medications Medications Current Medications Acetaminophen (Acetaminophen 325 Mg Tablet) 650 mg PO Q6H PRN PRN Reason: Headache/Pain Mild Scale (1-3) Al Hydroxide/Mg Hydroxide (Magnesium Hydrox/Alum Hydrox 30 Ml Oral.Susp) 30 ml PO Q6H PRN PRN Reason: Heartburn/Nausea Aripiprazole (Aripiprazole 20 Mg Tablet) 20 mg PO DAILY [facility] Last Admin: 09/28/21 08:12 Dose: 20 mg Documented by: Atorvastatin Calcium (Atorvastatin Calcium 10 Mg Tablet) 5 mg PO BEDTIME [facility] Last Admin: 09/27/21 20:25 Dose: 5 mg Documented by: Bupropion HCl (Bupropion Hcl 100 Mg Tablet) 100 mg PO DAILY [facility] Last Admin: 09/28/21 08:12 Dose: 100 mg Documented by: Clonidine HCl (Clonidine Hcl 0.1 Mg Tablet) 0.1 mg PO TID [facility]; Protocol Last Admin: 09/28/21 08:12 Dose: 0.1 mg Documented by: Clozapine (Clozapine 25 Mg Tablet) 75 mg PO BID [facility] Last Admin: 09/28/21 08:12 Dose: 75 mg Documented by: Docusate Sodium (Docusate Sodium 100 Mg Capsule) 100 mg PO BEDTIME [facility] Last Admin: 09/27/21 20:25 Dose: 100 mg Documented by: Hydroxyzine HCl (Hydroxyzine Hcl 25 Mg Tablet) 25 mg PO BEDTIME PRN PRN Reason: Anxiety Lorazepam (Lorazepam 0.5 Mg Tablet) 0.25 mg PO Q8H PRN PRN Reason: anxiety, agitation Last Admin: 09/20/21 18:21 Dose: 0.25 mg Documented by: Lorazepam (Lorazepam 0.5 Mg Tablet) 0.25 mg PO TID [facility] Last Admin: 09/28/21 08:12 Dose: 0.25 mg Documented by: Losartan Potassium (Losartan Potassium 25 Mg Tablet) 25 mg PO DAILY [facility]; Protocol Last Admin: 09/28/21 08:12 Dose: 25 mg Documented by: Magnesium Hydroxide (Milk Of Magnesia 30 Ml Oral.Susp) 30 ml PO DAILY PRN PRN Reason: Constipation Metformin HCl (Metformin Hcl 1,000 Mg Tablet) 1,000 mg PO BID [facility] Last Admin: 09/28/21 08:12 Dose: 1,000 mg Documented by: Non-Formulary Medication (Empagliflozin [Jardiance]) 10 mg PO DAILY [facility] Omeprazole (Omeprazole 20 Mg Capsule.Dr) 20 mg PO DAILY@0630 [facility] Last Admin: 09/28/21 06:33 Dose: 20 mg Documented by: Ondansetron HCl (Ondansetron Odt 8 Mg Tab.Rapdis) 8 mg TRANSLINGU Q8H PRN PRN Reason: nausea Risperidone (Risperidone 0.5 Mg Tablet) 1.5 mg PO BEDTIME [facility] Last Admin: 09/27/21 20:25 Dose: 1.5 mg Documented by: Trazodone HCl (Trazodone Hcl 50 Mg Tablet) 50 mg PO BEDTIME PRN PRN Reason: Insomnia Allergies Allergies Allergy/AdvReac Type Severity Reaction Status Date / Time lisinopril [LISINOPRIL] Allergy Unknown SWOLLEN Verified 09/17/21 08:42 LIPS, angioedema, swelling Assessment & Plan Assessment & Plan (1) Schizoaffective disorder: Status: Acute Code(s): F25.9 - Schizoaffective disorder, unspecified (2) Invasive ductal carcinoma of right breast: Status: Acute Code(s): C50.911 - Malignant neoplasm of unspecified site of right female breast (3) Hypertension: Qualifiers: Hypertension type: essential hypertension Qualified Code(s): I10 - Essential (primary) hypertension Status: Acute Code(s): I10 - Essential (primary) hypertension (4) Hypercholesterolemia: Status: Acute Code(s): E78.00 - Pure hypercholesterolemia, unspecified (5) Type 2 diabetes mellitus with hyperglycemia: Qualifiers: Diabetes mellitus termite technician insulin use: without termite technician use Qualified Code(s): E11.65 - Type 2 diabetes mellitus with hyperglycemia Status: Acute Code(s): E11.65 - Type 2 diabetes mellitus with hyperglycemia Assessment and Plan: Continue metformin Jardiance not on formulary monitor point of care (6) GERD (gastroesophageal reflux disease): Qualifiers: Esophagitis presence: without esophagitis Qualified Code(s): K21.9 - Gastro-esophageal reflux disease without esophagitis Status: Acute Code(s): K21.9 - Gastro-esophageal reflux disease without esophagitis Plan 50 yo female, hx of schizoaffective disorder, depressed with R breast cancer, having just completed first cycle of chemotherapy. Pt's partner and sister report to crisis team that pt has had a significant mental status change with psychotic symptoms, paranoia, perceptual alterations, poor sleep and significant thought blocking. Pt denies SI, HI. Today she is a very poor historian-almost pre-catatonic at times, considering signing a three day notice of intent. Team report by history she may not be comfortable in this facility. Assessment plan for 09/21/2021 Continue current medical treatment elevated white blood count noted over the past month question related to cancer treatment. No evidence of infection Patient depressed withdrawn preoccupied patient with recent treatment for ductal carcinoma stress of this might certainly lead to depressive almost catatonic episode 09/22/21 Pt with thought blocking improved from yeterday have restarted wellbutin hosp did not have sr cont clozapine evaluate baseline denies self harm oob more 09/23/21 Continue current plan of care. Collateral contacts with OP team, oncology. 09/24/21 Increase Abilify to 30 mg daily Pt currently refusing Lorazepam TDN expires 09/25/21-will file for civil commitment if pt persists in wanting discharge 09/25/21 Civil commitment filing completed Continue current regime. 09/26/21 Continue current regime 09/27/32 Decrease Abilify to 20 mg daily Risperdal 1.5 mg HS 09/28/21 Continue plan as above I spent minutes with the patient and/or on the patient floor today, greater than?50% of which was spent counseling/coordinating care. Patient educated on: diagnosis and medication risk/benefits Reason for contiued inpatient stay Substantial Risk for: rapid decompensation
[2021-09-28 14:45] VITALS: BP 125/78; PULSE 106; O2SAT 100
[2021-09-28 20:25] VITALS: BP 124/70; PULSE 97
[2021-09-28] MEDS: risperiDONE 0.5 MG TABLET 1.5 MG PO (20:40)
[2021-09-28] MEDS: Docusate Sodium 100 MG CAPSULE PO (20:40)
[2021-09-28] MEDS: Atorvastatin Calcium 10 MG TABLET 5 MG PO (20:41)
[2021-09-29] MEDS: Omeprazole 20 MG CAPSULE.DR PO (06:32)
[2021-09-29 06:57] LABS: Glucose, Whole Blood 141 mg/dL (60-115)
[2021-09-29 08:15] VITALS: BP 129/65; PULSE 90; RESP 16; TEMP 36.4; O2SAT 100
[2021-09-29] MEDS: cloZAPine 25 MG TABLET 75 MG PO ×2 (08:20→20:27)
[2021-09-29] MEDS: cloNIDine HCL 0.1 MG TABLET PO ×3 (08:21→20:27)
[2021-09-29] MEDS: metFORMIN HCl 1,000 MG TABLET 1000 MG PO ×2 (08:21→20:27)
[2021-09-29] MEDS: LORazepam 0.5 MG TABLET 0.25 MG PO ×2 (08:22→14:28)
[2021-09-29] MEDS: Losartan Potassium 25 MG TABLET PO (08:22)
[2021-09-29] MEDS: buPROPion HCL 100 MG TABLET PO (08:22)
[2021-09-29] MEDS: ARIPiprazole 20 MG TABLET PO (08:22)
[2021-09-29 14:27] VITALS: BP 126/73; PULSE 102; RESP 17; TEMP 36.2; O2SAT 100
--- NOTE | 2021-09-29 17:30 | HO.PSYCHPN ---
Subjective Subjective Date of Service: 09/29/21 Reason For Visit: Depression paranoia Interim History: Sabra continues to assert that she does not want to be in the hospital. She does not want to speak about her concerns. Medication Compliance: Yes Side effects from medications: No Mental Status Exam Mental Status Exam Patient Appearance: Appropriate Patient Orientation: Person, Place, Time and Situation (no, not a good grasp on current situation-paranoia, ?delusional content) Level of Consciousness: Alert Patient Behavior: Appropriate, Guarded, Talkative, Cooperative, Suspicious, Timid, Anxious, Fearful, Fatigued, Distractible, Isolative and Poor Eye Contact Mood Description: Suspicious, Withdrawn, Depressed, Fearful, Anxious, Sad, Nervous and Apprehensive Affect Description: Flat Patient Cognition Impaired: Yes Ability to Follow Directions: Good Speech Pattern: Perseverating, Impoverished, Spontaneous Speech, Soft-Spoken, Delayed and Long Pauses Memory Description: Remote Impaired and Episodic Impaired Hallucinations: None (denies) Delusions: Paranoid Ideation and Present Perceptual Disturbances: Depersonalization and Derealization Thought Process: Distracted, Rumination and Slowed Thinking Thought Content: positive for Obsessional Thoughts, positive for Circumstantial, positive for Perseveration, positive for Poverty of Content, positive for Preoccupation, positive for Thought Blocking, positive for Suicidal Ideation (denies) and positive for Homicidal Ideation (denies) Depressive Symptoms: Increased Anxiety, Difficulty Sleeping (last night pt reports sleep difficulty), Loss of Int. in Activity, Unhappiness, Increased Fatigue, Loss of Energy and Difficulty Concentrating Judgement: Poor Diagnostics Vital Signs (24Hr): Vital Signs - 24 hr 09/28/21 20:25 09/29/21 08:15 09/29/21 14:27 Temperature 97.6 F 97.1 F Pulse Rate 97 90 102 H Respiratory Rate 16 17 Blood Pressure 124/70 129/65 126/73 Pulse Oximetry 100 100 BMI result Body Mass Index 35.6 Labs Results: 09/19/21 19:58 09/28/21 10:40 Labs: Laboratory Results - last 48 hr 09/28/21 09/28/21 09/29/21 06:31 10:40 06:39 Creatinine 0.72 Estim Creat Clear Calc 85.5 Estimated GFR > 60 POC Glucose 131 H 141 H Medications Medications Current Medications Acetaminophen (Acetaminophen 325 Mg Tablet) 650 mg PO Q6H PRN PRN Reason: Headache/Pain Mild Scale (1-3) Al Hydroxide/Mg Hydroxide (Magnesium Hydrox/Alum Hydrox 30 Ml Oral.Susp) 30 ml PO Q6H PRN PRN Reason: Heartburn/Nausea Aripiprazole (Aripiprazole 20 Mg Tablet) 20 mg PO DAILY [facility] Last Admin: 09/29/21 08:22 Dose: 20 mg Documented by: Atorvastatin Calcium (Atorvastatin Calcium 10 Mg Tablet) 5 mg PO BEDTIME [facility] Last Admin: 09/28/21 20:41 Dose: 5 mg Documented by: Bupropion HCl (Bupropion Hcl 100 Mg Tablet) 100 mg PO DAILY [facility] Last Admin: 09/29/21 08:22 Dose: 100 mg Documented by: Clonidine HCl (Clonidine Hcl 0.1 Mg Tablet) 0.1 mg PO TID [facility]; Protocol Last Admin: 09/29/21 14:28 Dose: 0.1 mg Documented by: Clozapine (Clozapine 25 Mg Tablet) 75 mg PO BID [facility] Last Admin: 09/29/21 08:20 Dose: 75 mg Documented by: Docusate Sodium (Docusate Sodium 100 Mg Capsule) 100 mg PO BEDTIME [facility] Last Admin: 09/28/21 20:40 Dose: 100 mg Documented by: Hydroxyzine HCl (Hydroxyzine Hcl 25 Mg Tablet) 25 mg PO BEDTIME PRN PRN Reason: Anxiety Lorazepam (Lorazepam 0.5 Mg Tablet) 0.25 mg PO Q8H PRN PRN Reason: anxiety, agitation Last Admin: 09/20/21 18:21 Dose: 0.25 mg Documented by: Losartan Potassium (Losartan Potassium 25 Mg Tablet) 25 mg PO DAILY [facility]; Protocol Last Admin: 09/29/21 08:22 Dose: 25 mg Documented by: Magnesium Hydroxide (Milk Of Magnesia 30 Ml Oral.Susp) 30 ml PO DAILY PRN PRN Reason: Constipation Metformin HCl (Metformin Hcl 1,000 Mg Tablet) 1,000 mg PO BID [facility] Last Admin: 09/29/21 08:21 Dose: 1,000 mg Documented by: Non-Formulary Medication (Empagliflozin [Jardiance]) 10 mg PO DAILY [facility] Omeprazole (Omeprazole 20 Mg Capsule.Dr) 20 mg PO DAILY@0630 [facility] Last Admin: 09/29/21 06:32 Dose: 20 mg Documented by: Ondansetron HCl (Ondansetron Odt 8 Mg Tab.Rapdis) 8 mg TRANSLINGU Q8H PRN PRN Reason: nausea Risperidone (Risperidone 0.5 Mg Tablet) 1.5 mg PO BEDTIME [facility] Last Admin: 09/28/21 20:40 Dose: 1.5 mg Documented by: Trazodone HCl (Trazodone Hcl 50 Mg Tablet) 50 mg PO BEDTIME PRN PRN Reason: Insomnia Allergies Allergies Allergy/AdvReac Type Severity Reaction Status Date / Time lisinopril [LISINOPRIL] Allergy Unknown SWOLLEN Verified 09/17/21 08:42 LIPS, angioedema, swelling Assessment & Plan Assessment & Plan (1) Schizoaffective disorder: Status: Acute Code(s): F25.9 - Schizoaffective disorder, unspecified (2) Invasive ductal carcinoma of right breast: Status: Acute Code(s): C50.911 - Malignant neoplasm of unspecified site of right female breast (3) Hypertension: Qualifiers: Hypertension type: essential hypertension Qualified Code(s): I10 - Essential (primary) hypertension Status: Acute Code(s): I10 - Essential (primary) hypertension (4) Hypercholesterolemia: Status: Acute Code(s): E78.00 - Pure hypercholesterolemia, unspecified (5) Type 2 diabetes mellitus with hyperglycemia: Qualifiers: Diabetes mellitus senior living insulin use: without senior living use Qualified Code(s): E11.65 - Type 2 diabetes mellitus with hyperglycemia Status: Acute Code(s): E11.65 - Type 2 diabetes mellitus with hyperglycemia Assessment and Plan: Continue metformin Jardiance not on formulary monitor point of care (6) GERD (gastroesophageal reflux disease): Qualifiers: Esophagitis presence: without esophagitis Qualified Code(s): K21.9 - Gastro-esophageal reflux disease without esophagitis Status: Acute Code(s): K21.9 - Gastro-esophageal reflux disease without esophagitis Plan 50 yo female, hx of schizoaffective disorder, depressed with R breast cancer, having just completed first cycle of chemotherapy. Pt's partner and sister report to crisis team that pt has had a significant mental status change with psychotic symptoms, paranoia, perceptual alterations, poor sleep and significant thought blocking. Pt denies SI, HI. Today she is a very poor historian-almost pre-catatonic at times, considering signing a three day notice of intent. Team report by history she may not be comfortable in this facility. Assessment plan for 09/21/2021 Continue current medical treatment elevated white blood count noted over the past month question related to cancer treatment. No evidence of infection Patient depressed withdrawn preoccupied patient with recent treatment for ductal carcinoma stress of this might certainly lead to depressive almost catatonic episode 09/22/21 Pt with thought blocking improved from yeterday have restarted wellbutin hosp did not have sr cont clozapine evaluate baseline denies self harm oob more 09/23/21 Continue current plan of care. Collateral contacts with OP team, oncology. 09/24/21 Increase Abilify to 30 mg daily Pt currently refusing Lorazepam TDN expires 09/25/21-will file for civil commitment if pt persists in wanting discharge 09/25/21 Civil commitment filing completed Continue current regime. 09/26/21 Continue current regime 09/27/32 Decrease Abilify to 20 mg daily Risperdal 1.5 mg HS 09/28/21 Continue plan as above 09/29/21 No changes I spent minutes with the patient and/or on the patient floor today, greater than?50% of which was spent counseling/coordinating care. Patient educated on: diagnosis and medication risk/benefits Informed Consent: further education needed Reason for contiued inpatient stay Substantial Risk for: rapid decompensation
[2021-09-29] MEDS: risperiDONE 0.5 MG TABLET 1.5 MG PO (20:26)
[2021-09-29] MEDS: Atorvastatin Calcium 10 MG TABLET 5 MG PO (20:27)
[2021-09-29] MEDS: Docusate Sodium 100 MG CAPSULE PO (20:27)
[2021-09-30] MEDS: Omeprazole 20 MG CAPSULE.DR PO (06:18)
[2021-09-30] MEDS: cloNIDine HCL 0.1 MG TABLET PO ×2 (07:59→14:32)
[2021-09-30] MEDS: cloZAPine 25 MG TABLET 75 MG PO (07:59)
[2021-09-30] MEDS: ARIPiprazole 20 MG TABLET PO (07:59)
[2021-09-30] MEDS: Losartan Potassium 25 MG TABLET PO (07:59)
[2021-09-30] MEDS: buPROPion HCL 100 MG TABLET PO (07:59)
[2021-09-30] MEDS: metFORMIN HCl 1,000 MG TABLET 1000 MG PO (07:59)
[2021-09-30 13:00] VITALS: BP 117/70; PULSE 96; RESP 16; TEMP 36.6; O2SAT 98
--- NOTE | 2021-09-30 17:11 | HO.PSYCHPN ---
Subjective Subjective Date of Service: 09/30/21 Reason For Visit: Depression paranoia Subjective Notes: Section 7 Healthcare Proxy: No Guardianship: No Medical Problems Affecting Mental Status: No Interim History: Met with patient and Loretta DURAN. Pt reports being in a fog at times. No change with Risperdal added 09/27, however, no SE, will increase dosing tonight. Reports some visits with family over the weekend, attending some groups. States she if fearful of trouble-it is difficult to hear and believe people attempting to reassure her. Reports she is confused as to how to feel. She is mixed regarding her oncology plan of care-states her sister told her she has cancer and at times she is unsure if she does, unsure if treatment is needed or necessary. At times she reports feeling like everything is not really happening. Several attempts to reach oncology today with no response from that department [phone]. Medication Compliance: Yes Side effects from medications: No Attending Groups: Intermittent Review of Systems Acute medical concerns: No Medical Review of Systems: unchanged Review of Systems Reports behavioral changes and Reports confusion Psychiatric: Reports anxiety, Reports behavioral changes, Reports confusion, Reports depression, Reports difficulty concentrating, Reports auditory hallucinations, Reports hopelessness, Reports anhedonia and Reports paranoia Mental Status Exam Mental Status Exam Patient Appearance: Fatigued Patient Orientation: Person and Place Level of Consciousness: Alert Patient Behavior: Guarded, Talkative, Cooperative, Suspicious, Anxious, Fatigued, Distractible and Poor Eye Contact Mood Description: Depressed and Apprehensive Affect Description: Flat and Apprehensive Patient Cognition Impaired: No Ability to Follow Directions: Good Speech Pattern: Impoverished, Appropriate, Spontaneous Speech, Soft-Spoken, Delayed and Long Pauses Memory Description: Remote Impaired and Episodic Impaired Delusions: Paranoid Ideation and Present Perceptual Disturbances: Depersonalization and Derealization Thought Process: Distracted, Rumination and Slowed Thinking Thought Content: positive for [place], positive for Circumstantial, positive for Perseveration, positive for Preoccupation, positive for Thought Blocking, positive for Slowed Thinking and positive for Disorganized Depressive Symptoms: Increased Anxiety, Diff. Making Decisions, Loss of Int. in Activity, Feelings of Worthlessness, Hopelessness, Unhappiness, Increased Fatigue, Low Self Esteem, Loss of Energy and Difficulty Concentrating Judgement: Poor Diagnostics Vital Signs (24Hr): Vital Signs - 24 hr 09/30/21 13:00 Temperature 98 F Pulse Rate 96 Respiratory Rate 16 Blood Pressure 117/70 Pulse Oximetry 98 BMI result Body Mass Index 35.6 Labs Results: 09/19/21 19:58 09/28/21 10:40 Labs: Laboratory Results - last 48 hr 09/29/21 06:39 POC Glucose 141 H Medications Medications Current Medications Acetaminophen (Acetaminophen 325 Mg Tablet) 650 mg PO Q6H PRN PRN Reason: Headache/Pain Mild Scale (1-3) Al Hydroxide/Mg Hydroxide (Magnesium Hydrox/Alum Hydrox 30 Ml Oral.Susp) 30 ml PO Q6H PRN PRN Reason: Heartburn/Nausea Aripiprazole (Aripiprazole 20 Mg Tablet) 20 mg PO DAILY [facility] Last Admin: 09/30/21 07:59 Dose: 20 mg Documented by: Atorvastatin Calcium (Atorvastatin Calcium 10 Mg Tablet) 5 mg PO BEDTIME MYRTLE Last Admin: 09/29/21 20:27 Dose: 5 mg Documented by: Bupropion HCl (Bupropion Hcl 100 Mg Tablet) 100 mg PO DAILY [facility] Last Admin: 09/30/21 07:59 Dose: 100 mg Documented by: Clonidine HCl (Clonidine Hcl 0.1 Mg Tablet) 0.1 mg PO TID MYRTLE; Protocol Last Admin: 09/30/21 14:32 Dose: 0.1 mg Documented by: Clozapine (Clozapine 25 Mg Tablet) 75 mg PO BID [facility] Last Admin: 09/30/21 07:59 Dose: 75 mg Documented by: Docusate Sodium (Docusate Sodium 100 Mg Capsule) 100 mg PO BEDTIME MYRTLE Last Admin: 09/29/21 20:27 Dose: 100 mg Documented by: Hydroxyzine HCl (Hydroxyzine Hcl 25 Mg Tablet) 25 mg PO BEDTIME PRN PRN Reason: Anxiety Losartan Potassium (Losartan Potassium 25 Mg Tablet) 25 mg PO DAILY [facility]; Protocol Last Admin: 09/30/21 07:59 Dose: 25 mg Documented by: Magnesium Hydroxide (Milk Of Magnesia 30 Ml Oral.Susp) 30 ml PO DAILY PRN PRN Reason: Constipation Metformin HCl (Metformin Hcl 1,000 Mg Tablet) 1,000 mg PO BID [facility] Last Admin: 09/30/21 07:59 Dose: 1,000 mg Documented by: Non-Formulary Medication (Empagliflozin [Jardiance]) 10 mg PO DAILY [facility] Omeprazole (Omeprazole 20 Mg Capsule.Dr) 20 mg PO DAILY@0630 [facility] Last Admin: 09/30/21 06:18 Dose: 20 mg Documented by: Ondansetron HCl (Ondansetron Odt 8 Mg Tab.Rapdis) 8 mg TRANSLINGU Q8H PRN PRN Reason: nausea Risperidone (Risperidone 0.5 Mg Tablet) 1.5 mg PO BEDTIME [facility] Last Admin: 09/29/21 20:26 Dose: 1.5 mg Documented by: Trazodone HCl (Trazodone Hcl 50 Mg Tablet) 50 mg PO BEDTIME PRN PRN Reason: Insomnia Allergies Allergies Allergy/AdvReac Type Severity Reaction Status Date / Time lisinopril [LISINOPRIL] Allergy Unknown SWOLLEN Verified 09/17/21 08:42 LIPS, angioedema, swelling Assessment & Plan Assessment & Plan (1) Schizoaffective disorder: Status: Acute Code(s): F25.9 - Schizoaffective disorder, unspecified (2) Invasive ductal carcinoma of right breast: Status: Acute Code(s): C50.911 - Malignant neoplasm of unspecified site of right female breast (3) Hypertension: Qualifiers: Hypertension type: essential hypertension Qualified Code(s): I10 - Essential (primary) hypertension Status: Acute Code(s): I10 - Essential (primary) hypertension (4) Hypercholesterolemia: Status: Acute Code(s): E78.00 - Pure hypercholesterolemia, unspecified (5) Type 2 diabetes mellitus with hyperglycemia: Qualifiers: Diabetes mellitus assisted insulin use: without assistant terminal manager use Qualified Code(s): E11.65 - Type 2 diabetes mellitus with hyperglycemia Status: Acute Code(s): E11.65 - Type 2 diabetes mellitus with hyperglycemia Assessment and Plan: Continue metformin Jardiance not on formulary monitor point of care (6) GERD (gastroesophageal reflux disease): Qualifiers: Esophagitis presence: without esophagitis Qualified Code(s): K21.9 - Gastro-esophageal reflux disease without esophagitis Status: Acute Code(s): K21.9 - Gastro-esophageal reflux disease without esophagitis Plan 50 yo female, hx of schizoaffective disorder, depressed with R breast cancer, having just completed first cycle of chemotherapy. Pt's partner and sister report to crisis team that pt has had a significant mental status change with psychotic symptoms, paranoia, perceptual alterations, poor sleep and significant thought blocking. Pt denies SI, HI. Today she is a very poor historian-almost pre-catatonic at times, considering signing a three day notice of intent. Team report by history she may not be comfortable in this facility. Assessment plan for 09/21/2021 Continue current medical treatment elevated white blood count noted over the past month question related to cancer treatment. No evidence of infection Patient depressed withdrawn preoccupied patient with recent treatment for ductal carcinoma stress of this might certainly lead to depressive almost catatonic episode 09/22/21 Pt with thought blocking improved from yeterday have restarted wellbutin hosp did not have sr cont clozapine evaluate baseline denies self harm oob more 09/23/21 Continue current plan of care. Collateral contacts with OP team, oncology. 09/24/21 Increase Abilify to 30 mg daily Pt currently refusing Lorazepam TDN expires 09/25/21-will file for civil commitment if pt persists in wanting discharge 09/25/21 Civil commitment filing completed Continue current regime. 09/26/21 Continue current regime 09/27/32 Decrease Abilify to 20 mg daily Risperdal 1.5 mg HS 09/28/21 Continue plan as above 09/29/21 No changes 09/30/21 Court 10/01/21 Chemotherapy 10/01/21 Increase Risperdal to 2.5 mg HS Decrease Abilify to 10 mg daily I spent minutes with the patient and/or on the patient floor today, greater than?50% of which was spent counseling/coordinating care. Patient educated on: medication risk/benefits, therapeutic strategies and medical condition Informed Consent: further education needed Reason for contiued inpatient stay Substantial Risk for: inability to function, rapid decompensation and med/psych decompensation
[2021-09-30 20:15] VITALS: BP 147/82; PULSE 115
--- NOTE | 2021-10-01 12:56 | HO.PSYCHPN ---
Subjective Subjective Date of Service: 10/01/21 Reason For Visit: Depression paranoia Subjective Notes: Section 8 Healthcare Proxy: Yes Guardianship: No Medical Problems Affecting Mental Status: Yes Interim History: -[address] -Pt did testify, stating at times she becomes confused and is sorry. Team report she spent the day [id number] medicines and food. -Partner and sister did testify -Met with pt, partner, sister in the evening. Family is very supportive and encouraging with pt. We discussed a plan of care-will discontinue Risperdal as it did not help augment Clozapine. [facility] return to [facility]. Pt reports she will no longer refuse her medicines-promised her family. -Review of pt's home plan-Vitamins ordered. Will order Jardiance from [employer] on 10/02. Medication Compliance: No Side effects from medications: No Attending Groups: No Review of Systems Acute medical concerns: Yes Administrative team is working on having pt return to her breast cancer treatment. Medical Review of Systems: unchanged Review of Systems Reports behavioral changes and Reports confusion Psychiatric: Reports anxiety, Reports behavioral changes, Reports confusion, Reports depression, Reports difficulty concentrating, Reports auditory hallucinations, Reports hopelessness, Reports anhedonia and Reports paranoia Mental Status Exam Mental Status Exam Patient Appearance: Fatigued Patient Orientation: Person and Place Level of Consciousness: Alert Patient Behavior: Guarded, Talkative, Cooperative, Suspicious, Anxious, Fatigued, Distractible and Poor Eye Contact Mood Description: Depressed and Apprehensive Affect Description: Flat and Apprehensive Patient Cognition Impaired: No Ability to Follow Directions: Good Speech Pattern: Impoverished, Appropriate, Spontaneous Speech, Soft-Spoken, Delayed and Long Pauses Memory Description: Remote Impaired and Episodic Impaired Delusions: Paranoid Ideation and Present Perceptual Disturbances: Depersonalization and Derealization Thought Process: Distracted, Rumination and Slowed Thinking Thought Content: positive for [place], positive for Circumstantial, positive for Perseveration, positive for Preoccupation, positive for Thought Blocking, positive for Slowed Thinking and positive for Disorganized Depressive Symptoms: Increased Anxiety, Diff. Making Decisions, Loss of Int. in Activity, Feelings of Worthlessness, Hopelessness, Unhappiness, Increased Fatigue, Low Self Esteem, Loss of Energy and Difficulty Concentrating Judgement: Poor Diagnostics Vital Signs (24Hr): Vital Signs - 24 hr 09/30/21 13:00 09/30/21 20:15 Temperature 98 F Pulse Rate 96 115 H Respiratory Rate 16 Blood Pressure 117/70 147/82 H Pulse Oximetry 98 BMI result Body Mass Index 35.6 Labs Results: 09/19/21 19:58 09/28/21 10:40 Medications Medications Current Medications Acetaminophen (Acetaminophen 325 Mg Tablet) 650 mg PO Q6H PRN PRN Reason: Headache/Pain Mild Scale (1-3) Al Hydroxide/Mg Hydroxide (Magnesium Hydrox/Alum Hydrox 30 Ml Oral.Susp) 30 ml PO Q6H PRN PRN Reason: Heartburn/Nausea Aripiprazole (Aripiprazole 10 Mg Tablet) 10 mg PO DAILY [facility] Last Admin: 10/01/21 08:52 Dose: Not Given Documented by: Atorvastatin Calcium (Atorvastatin Calcium 10 Mg Tablet) 5 mg PO BEDTIME [facility] Last Admin: 09/30/21 22:06 Dose: Not Given Documented by: Bupropion HCl (Bupropion Hcl 100 Mg Tablet) 100 mg PO DAILY [facility] Last Admin: 10/01/21 08:52 Dose: Not Given Documented by: Clonidine HCl (Clonidine Hcl 0.1 Mg Tablet) 0.1 mg PO TID [facility]; Protocol Last Admin: 10/01/21 08:03 Dose: Not Given Documented by: Clozapine (Clozapine 25 Mg Tablet) 75 mg PO BID [facility] Last Admin: 10/01/21 08:52 Dose: Not Given Documented by: Docusate Sodium (Docusate Sodium 100 Mg Capsule) 100 mg PO BEDTIME [facility] Last Admin: 09/30/21 22:06 Dose: Not Given Documented by: Hydroxyzine HCl (Hydroxyzine Hcl 25 Mg Tablet) 25 mg PO BEDTIME PRN PRN Reason: Anxiety Losartan Potassium (Losartan Potassium 25 Mg Tablet) 25 mg PO DAILY [facility]; Protocol Last Admin: 10/01/21 08:04 Dose: Not Given Documented by: Magnesium Hydroxide (Milk Of Magnesia 30 Ml Oral.Susp) 30 ml PO DAILY PRN PRN Reason: Constipation Metformin HCl (Metformin Hcl 1,000 Mg Tablet) 1,000 mg PO BID [facility] Last Admin: 10/01/21 08:52 Dose: Not Given Documented by: Omeprazole (Omeprazole 20 Mg Capsule.Dr) 20 mg PO DAILY@0630 [facility] Last Admin: 10/01/21 06:28 Dose: Not Given Documented by: Ondansetron HCl (Ondansetron Odt 8 Mg Tab.Rapdis) 8 mg TRANSLINGU Q8H PRN PRN Reason: nausea Risperidone (Risperidone 0.5 Mg Tablet) 2.5 mg PO BEDTIME [facility]RTLE Last Admin: 09/30/21 22:06 Dose: Not Given Documented by: Trazodone HCl (Trazodone Hcl 50 Mg Tablet) 50 mg PO BEDTIME PRN PRN Reason: Insomnia Allergies Allergies Allergy/AdvReac Type Severity Reaction Status Date / Time lisinopril [LISINOPRIL] Allergy Unknown SWOLLEN Verified 09/17/21 08:42 LIPS, angioedema, swelling Assessment & Plan Assessment & Plan (1) Schizoaffective disorder: Status: Acute Code(s): F25.9 - Schizoaffective disorder, unspecified (2) Invasive ductal carcinoma of right breast: Status: Acute Code(s): C50.911 - Malignant neoplasm of unspecified site of right female breast (3) Hypertension: Qualifiers: Hypertension type: essential hypertension Qualified Code(s): I10 - Essential (primary) hypertension Status: Acute Code(s): I10 - Essential (primary) hypertension (4) Hypercholesterolemia: Status: Acute Code(s): E78.00 - Pure hypercholesterolemia, unspecified (5) Type 2 diabetes mellitus with hyperglycemia: Qualifiers: Diabetes mellitus mcc insulin use: without watermelon inspector use Qualified Code(s): E11.65 - Type 2 diabetes mellitus with hyperglycemia Status: Acute Code(s): E11.65 - Type 2 diabetes mellitus with hyperglycemia Assessment and Plan: Continue metformin Jardiance not on formulary monitor point of care (6) GERD (gastroesophageal reflux disease): Qualifiers: Esophagitis presence: without esophagitis Qualified Code(s): K21.9 - Gastro-esophageal reflux disease without esophagitis Status: Acute Code(s): K21.9 - Gastro-esophageal reflux disease without esophagitis Plan 50 yo female, hx of schizoaffective disorder, depressed with R breast cancer, having just completed first cycle of chemotherapy. Pt's partner and sister report to crisis team that pt has had a significant mental status change with psychotic symptoms, paranoia, perceptual alterations, poor sleep and significant thought blocking. Pt denies SI, HI. Today she is a very poor historian-almost pre-catatonic at times, considering signing a three day notice of intent. Team report by history she may not be comfortable in this facility. Assessment plan for 09/21/2021 Continue current medical treatment elevated white blood count noted over the past month question related to cancer treatment. No evidence of infection Patient depressed withdrawn preoccupied patient with recent treatment for ductal carcinoma stress of this might certainly lead to depressive almost catatonic episode 09/22/21 Pt with thought blocking improved from yeterday have restarted wellbutin hosp did not have sr cont clozapine evaluate baseline denies self harm oob more 09/23/21 Continue current plan of care. Collateral contacts with OP team, oncology. 09/24/21 Increase Abilify to 30 mg daily Pt currently refusing Lorazepam TDN expires 09/25/21-will file for civil commitment if pt persists in wanting discharge 09/25/21 Civil commitment filing completed Continue current regime. 09/26/21 Continue current regime 09/27/32 Decrease Abilify to 20 mg daily Risperdal 1.5 mg HS 09/28/21 Continue plan as above 09/29/21 No changes 09/30/21 Court 10/01/21 Chemotherapy 10/01/21 Increase Risperdal to 2.5 mg HS Decrease Abilify to 10 mg daily 10/01/21 Section VIII granted Discontinue Risperdal Abilify 20 mg daily Vitamin D, B12, C, Ferrous sulfate ordered (pt uses at home) Will order Jardiance from [facility] on 10/02/21. I spent minutes with the patient and/or on the patient floor today, greater than?50% of which was spent counseling/coordinating care. Patient educated on: therapeutic strategies Informed Consent: further education needed Reason for contiued inpatient stay Substantial Risk for: harm to self, inability to function, rapid decompensation and med/psych decompensation
[2021-10-01] MEDS: cloZAPine 25 MG TABLET 75 MG PO (21:36)
[2021-10-01] MEDS: metFORMIN HCl 1,000 MG TABLET 1000 MG PO (21:37)
[2021-10-01] MEDS: LORazepam 0.5 MG TABLET PO (21:37)
[2021-10-01] MEDS: cloNIDine HCL 0.1 MG TABLET PO (21:37)
[2021-10-01] MEDS: Docusate Sodium 100 MG CAPSULE PO (21:37)
[2021-10-01] MEDS: Atorvastatin Calcium 10 MG TABLET 5 MG PO (21:37)
[2021-10-02] MEDS: Omeprazole 20 MG CAPSULE.DR PO (06:20)
[2021-10-02 06:33] LABS: Glucose, Whole Blood 137 mg/dL (60-115)
[2021-10-02] MEDS: Ferrous Sulfate 324 MG TABLET.DR PO (08:14)
[2021-10-02] MEDS: metFORMIN HCl 1,000 MG TABLET 1000 MG PO ×2 (08:14→21:41)
[2021-10-02] MEDS: ARIPiprazole 20 MG TABLET PO (08:14)
[2021-10-02] MEDS: Ascorbic Acid 500 MG TABLET 1000 MG PO (08:14)
[2021-10-02] MEDS: cloNIDine HCL 0.1 MG TABLET PO ×3 (08:14→21:42)
[2021-10-02] MEDS: Cholecalciferol (Vitamin D3) 10 MCG TABLET PO (08:14)
[2021-10-02] MEDS: Losartan Potassium 25 MG TABLET PO (08:15)
[2021-10-02] MEDS: cloZAPine 25 MG TABLET 75 MG PO ×2 (08:15→21:41)
[2021-10-02] MEDS: buPROPion HCL 100 MG TABLET PO (08:15)
[2021-10-02] MEDS: Multivitamin TABLET 1 TAB PO (08:15)
[2021-10-02] MEDS: LORazepam 0.5 MG TABLET PO ×2 (08:15→21:42)
[2021-10-02 08:20] VITALS: BP 106/75; PULSE 97; RESP 16; TEMP 36.3; O2SAT 97
[2021-10-02 13:00] VITALS: BP 103/75; PULSE 113
[2021-10-02] MEDS: Magnesium Hydrox/Alum Hydrox 30 ML ORAL.SUSP PO (14:41)
--- NOTE | 2021-10-02 17:17 | P.PNPSI_ITS ---
Subjective Subjective Date of Service: 10/02/21 Reason For Visit: Depression paranoia Subjective Notes: Section 8 Healthcare Proxy: Yes Guardianship: No Medical Problems Affecting Mental Status: Yes Interim History: Visable in milieu. Approached field underwriter a few times with questions. Labs were ordered, however, pt states she did not have labs drawn- call to lab to clarify-labs were not drawn. Sister visited. Pt is attempting to eat and take her medicine. Reports feeling tired and overwhelmed after her day yesterday-we attempted to keep discussions lightly proactive. Medication Compliance: Yes Side effects from medications: No Attending Groups: No Review of Systems Acute medical concerns: Yes Medical Review of Systems: unchanged Review of Systems Reports behavioral changes and Reports confusion Psychiatric: Reports anxiety, Reports behavioral changes, Reports confusion, Reports depression, Reports difficulty concentrating, Reports auditory hallucinations, Reports hopelessness, Reports anhedonia and Reports paranoia Mental Status Exam Mental Status Exam Patient Appearance: Fatigued Patient Orientation: Person and Place Level of Consciousness: Alert Patient Behavior: Guarded, Talkative, Cooperative, Suspicious, Anxious, Fatigu ed, Distractible and Poor Eye Contact Mood Description: Depressed and Apprehensive Affect Description: Flat and Apprehensive Patient Cognition Impaired: No Ability to Follow Directions: Good Speech Pattern: Impoverished, Appropriate, Spontaneous Speech, Soft-Spoken, Delayed and Long Pauses Memory Description: Remote Impaired and Episodic Impaired Delusions: Paranoid Ideation and Present Perceptual Disturbances: Depersonalization and Derealization Thought Process: Distracted, Rumination and Slowed Thinking Thought Content: positive for [place], positive for Circumstantial, positive for Perseveration, positive for Preoccupation, positive for Thought Blocking, positive for Slowed Thinking and positive for Disorganized Depressive Symptoms: Increased Anxiety, Diff. Making Decisions, Loss of Int. in Activity, Feelings of Worthlessness, Hopelessness, Unhappiness, Increased Fatigue, Low Self Esteem, Loss of Energy and Difficulty Concentrating Judgement: Poor Diagnostics Vital Signs (24Hr): Vital Signs - 24 hr 10/02/21 08:20 10/02/21 13:00 Temperature 97.3 F Pulse Rate 97 113 H Respiratory Rate 16 Blood Pressure 106/75 103/75 Pulse Oximetry 97 BMI result Body Mass Index 35.6 Labs Results: 09/19/21 19:58 09/28/21 10:40 Labs: Laboratory Results - last 48 hr 10/02/21 06:27 POC Glucose 137 H Medications Medications Current Medications Acetaminophen (Acetaminophen 325 Mg Tablet) 650 mg PO Q6H PRN PRN Reason: Headache/Pain Mild Scale (1-3) Al Hydroxide/Mg Hydroxide (Magnesium Hydrox/Alum Hydrox 30 Ml Oral.Susp) 30 ml PO Q6H PRN PRN Reason: Heartburn/Nausea Last Admin: 10/02/21 14:41 Dose: 30 ml Documented by: Aripiprazole (Aripiprazole 20 Mg Tablet) 20 mg PO DAILY [facility] Last Admin: 10/02/21 08:14 Dose: 20 mg Documented by: Ascorbic Acid (Ascorbic Acid 500 Mg Tablet) 1,000 mg PO DAILY [facility] Last Admin: 10/02/21 08:14 Dose: 1,000 mg Documented by: Atorvastatin Calcium (Atorvastatin Calcium 10 Mg Tablet) 5 mg PO BEDTIME [facility] Last Admin: 10/01/21 21:37 Dose: 5 mg Documented by: Bupropion HCl (Bupropion Hcl 100 Mg Tablet) 100 mg PO DAILY [facility] Last Admin: 10/02/21 08:15 Dose: 100 mg Documented by: Clonidine HCl (Clonidine Hcl 0.1 Mg Tablet) 0.1 mg PO TID [facility]; Protocol Last Admin: 10/02/21 14:40 Dose: 0.1 mg Documented by: Clozapine (Clozapine 25 Mg Tablet) 75 mg PO BID [facility] Last Admin: 10/02/21 08:15 Dose: 75 mg Documented by: Cyanocobalamin (Cyanocobalamin (Vitamin B-12) 1,000 Mcg Tablet) 1,000 mcg PO DAILY [facility] Docusate Sodium (Docusate Sodium 100 Mg Capsule) 100 mg PO BEDTIME [facility] Last Admin: 10/01/21 21:37 Dose: 100 mg Documented by: Ferrous Sulfate (Ferrous Sulfate 324 Mg Tablet.) 324 mg PO DAILY [facility] Last Admin: 10/02/21 08:14 Dose: 324 mg Documented by: Hydroxyzine HCl (Hydroxyzine Hcl 25 Mg Tablet) 25 mg PO BEDTIME PRN PRN Reason: Anxiety Lorazepam (Lorazepam 0.5 Mg Tablet) 0.5 mg PO Q4H PRN PRN Reason: anxiety, catatonia Lorazepam (Lorazepam 0.5 Mg Tablet) 0.5 mg PO BID [facility] Last Admin: 10/02/21 08:15 Dose: 0.5 mg Documented by: Losartan Potassium (Losartan Potassium 25 Mg Tablet) 25 mg PO DAILY [facility]; Protocol Last Admin: 10/02/21 08:15 Dose: 25 mg Documented by: Magnesium Hydroxide (Milk Of Magnesia 30 Ml Oral.Susp) 30 ml PO DAILY PRN PRN Reason: Constipation Metformin HCl (Metformin Hcl 1,000 Mg Tablet) 1,000 mg PO BID [facility] Last Admin: 10/02/21 08:14 Dose: 1,000 mg Documented by: Multivitamins/Vitamin C (Multivitamin Tablet) 1 tab PO DAILY [facility] Last Admin: 10/02/21 08:15 Dose: 1 tab Documented by: Non-Formulary Medication (Cinnamon) 1,000 mg PO DAILY [facility] Last Admin: 10/02/21 09:33 Dose: 1,000 mg Documented by: Non-Formulary Medication (Jardiance) 10 mg PO DAILY [facility] Omeprazole (Omeprazole 20 Mg Capsule.Dr) 20 mg PO DAILY@0630 [facility] Last Admin: 10/02/21 06:20 Dose: 20 mg Documented by: Ondansetron HCl (Ondansetron Odt 8 Mg Tab.Rapdis) 8 mg TRANSLINGU Q8H PRN PRN Reason: nausea Trazodone HCl (Trazodone Hcl 50 Mg Tablet) 50 mg PO BEDTIME PRN PRN Reason: Insomnia Vitamin D (Cholecalciferol (Vitamin D3) 10 Mcg Tablet) 10 mcg PO DAILY [facility] Last Admin: 10/02/21 08:14 Dose: 10 mcg Documented by: Allergies Allergies Allergy/AdvReac Type Severity Reaction Status Date / Time lisinopril [LISINOPRIL] Allergy Unknown SWOLLEN Verified 09/17/21 08:42 LIPS, angioedema, swelling Assessment & Plan Assessment & Plan (1) Schizoaffective disorder: Status: Acute Code(s): F25.9 - Schizoaffective disorder, unspecified (2) Invasive ductal carcinoma of right breast: Status: Acute Code(s): C50.911 - Malignant neoplasm of unspecified site of right female breast (3) Hypertension: Qualifiers: Hypertension type: essential hypertension Qualified Code(s): I10 - Essential (primary) hypertension Status: Acute Code(s): I10 - Essential (primary) hypertension (4) Hypercholesterolemia: Status: Acute Code(s): E78.00 - Pure hypercholesterolemia, unspecified (5) Type 2 diabetes mellitus with hyperglycemia: Qualifiers: Diabetes mellitus intermediate manager insulin use: without intermediate manager use Qualified Code(s): E11.65 - Type 2 diabetes mellitus with hyperglycemia Status: Acute Code(s): E11.65 - Type 2 diabetes mellitus with hyperglycemia Assessment and Plan: Continue metformin Jardiance not on formulary monitor point of care (6) GERD (gastroesophageal reflux disease): Qualifiers: Esophagitis presence: without esophagitis Qualified Code(s): K21.9 - Gastro-esophageal reflux disease without esophagitis Status: Acute Code(s): K21.9 - Gastro-esophageal reflux disease without esophagitis Plan 50 yo female, hx of schizoaffective disorder, depressed with R breast cancer, having just completed first cycle of chemotherapy. Pt's partner and sister report to crisis team that pt has had a significant mental status change with psychotic symptoms, paranoia, perceptual alterations, poor sleep and significant thought blocking. Pt denies SI, HI. Today she is a very poor historian-almost pre-catatonic at times, considering signing a three day notice of intent. Team report by history she may not be comfortable in this facility. Assessment plan for 09/21/2021 Continue current medical treatment elevated white blood count noted over the past month question related to cancer treatment. No evidence of infection Patient depressed withdrawn preoccupied patient with recent treatment for ductal carcinoma stress of this might certainly lead to depressive almost catatonic episode 09/22/21 Pt with thought blocking improved from yeterday have restarted wellbutin hosp did not have sr cont clozapine evaluate baseline denies self harm oob more 09/23/21 Continue current plan of care. Collateral contacts with OP team, oncology. 09/24/21 Increase Abilify to 30 mg daily Pt currently refusing Lorazepam TDN expires 09/25/21-will file for civil commitment if pt persists in wanting discharge 09/25/21 Civil commitment filing completed Continue current regime. 09/26/21 Continue current regime 09/27/32 Decrease Abilify to 20 mg daily Risperdal 1.5 mg HS 09/28/21 Continue plan as above 09/29/21 No changes 09/30/21 Court 10/01/21 Chemotherapy 10/01/21 Increase Risperdal to 2.5 mg HS Decrease Abilify to 10 mg daily 10/02/21 Tolerating change back to Abilify from Risperdal Appetite is improved. Calmer, more visable, however continues with paranoia Jardiance ordered from [facility] I spent minutes with the patient and/or on the patient floor today, greater than?50% of which was spent counseling/coordinating care. Patient educated on: medication risk/benefits and therapeutic strategies Informed Consent: understands and further education needed Reason for contiued inpatient stay Substantial Risk for: harm to self, inability to function, rapid decompensation and med/psych decompensation
[2021-10-02 21:36] VITALS: BP 126/69; PULSE 89; RESP 16; TEMP 36.1; O2SAT 100
[2021-10-02] MEDS: Atorvastatin Calcium 10 MG TABLET 5 MG PO (21:42)
[2021-10-02] MEDS: Docusate Sodium 100 MG CAPSULE PO (21:42)
[2021-10-03 06:28] LABS: Glucose, Whole Blood 116 mg/dL (60-115)
[2021-10-03] MEDS: Omeprazole 20 MG CAPSULE.DR PO (06:31)
[2021-10-03 07:00] VITALS: BMI 35.6
[2021-10-03 08:00] VITALS: BP 128/72; PULSE 94; RESP 16; TEMP 36.6; O2SAT 99
[2021-10-03] MEDS: LORazepam 0.5 MG TABLET PO ×2 (08:14→20:37)
[2021-10-03] MEDS: buPROPion HCL 100 MG TABLET PO (08:14)
[2021-10-03] MEDS: ARIPiprazole 20 MG TABLET PO (08:14)
[2021-10-03] MEDS: Ferrous Sulfate 324 MG TABLET.DR PO (08:14)
[2021-10-03] MEDS: Cyanocobalamin (Vitamin B-12) 1,000 MCG TABLET 1000 MCG PO (08:14)
[2021-10-03] MEDS: cloZAPine 25 MG TABLET 75 MG PO ×2 (08:14→20:37)
[2021-10-03] MEDS: cloNIDine HCL 0.1 MG TABLET PO ×3 (08:15→20:39)
[2021-10-03] MEDS: Cholecalciferol (Vitamin D3) 10 MCG TABLET PO (08:15)
[2021-10-03] MEDS: Losartan Potassium 25 MG TABLET PO (08:15)
[2021-10-03] MEDS: Ascorbic Acid 500 MG TABLET 1000 MG PO (08:15)
[2021-10-03] MEDS: metFORMIN HCl 1,000 MG TABLET 1000 MG PO ×2 (08:15→20:37)
[2021-10-03] MEDS: Multivitamin TABLET 1 TAB PO (08:15)
[2021-10-03 10:29] LABS: Neut%MD 53.3 %; Neutrophils Absolute Auto 2.6 x10*3/uL (2.0-8.3); WBCANC 4.8 X10*3/uL
[2021-10-03 14:49] VITALS: BP 125/72; PULSE 96; RESP 16; O2SAT 99
--- NOTE | 2021-10-03 17:31 | HO.PSYCHPN ---
Subjective Subjective Date of Service: 10/03/21 Reason For Visit: Depression paranoia Subjective Notes: Section 8 Healthcare Proxy: Yes Guardianship: No Medical Problems Affecting Mental Status: Yes Interim History: Met with Sabra and her partner Kailey. Discussed plan to increase Abilify to 30 mg daily for the weekend. Met with pt's chemotherapy team and Loretta Duffy. Will plan to pursue HCP validation by the courts to ensure her cancer treatment will not be interrupted. Process initiated. ANC today 2600. Verified with [facility] Hematology Medication Compliance: Yes Side effects from medications: No Attending Groups: Yes Review of Systems Acute medical concerns: Yes Medical Review of Systems: unchanged Review of Systems Reports confusion Psychiatric: Reports anxiety, Reports confusion, Reports depression, Reports difficulty concentrating, Reports hopelessness, Reports anhedonia and Reports paranoia Mental Status Exam Mental Status Exam Patient Appearance: Fatigued Patient Orientation: Person and Place Level of Consciousness: Alert Patient Behavior: Guarded, Talkative, Cooperative, Suspicious, Anxious, Fatigued, Distractible and Poor Eye Contact Mood Description: Depressed and Apprehensive Affect Description: Flat and Apprehensive Patient Cognition Impaired: No Ability to Follow Directions: Good Speech Pattern: Impoverished, Appropriate, Spontaneous Speech, Soft-Spoken, Delayed and Long Pauses Memory Description: Remote Impaired and Episodic Impaired Delusions: Paranoid Ideation and Present Perceptual Disturbances: Depersonalization and Derealization Thought Process: Distracted, Rumination and Slowed Thinking Thought Content: positive for [place], positive for Circumstantial, positive for Perseveration, positive for Preoccupation, positive for Thought Blocking, positive for Slowed Thinking and positive for Disorganized Depressive Symptoms: Increased Anxiety, Diff. Making Decisions, Loss of Int. in Activity, Feelings of Worthlessness, Hopelessness, Unhappiness, Increased Fatigue, Low Self Esteem, Loss of Energy and Difficulty Concentrating Judgement: Poor Diagnostics Vital Signs (24Hr): Vital Signs - 24 hr 10/02/21 21:36 10/03/21 08:00 10/03/21 14:49 Temperature 96.9 F 97.9 F Pulse Rate 89 94 96 Respiratory Rate 16 16 16 Blood Pressure 126/69 128/72 125/72 Pulse Oximetry 100 99 99 BMI result Body Mass Index 35.6 Labs Results: 09/19/21 19:58 09/28/21 10:40 Labs: Laboratory Results - last 48 hr 10/02/21 10/03/21 10/03/21 06:27 06:23 10:01 Absolute Neuts (auto) 2.6 POC Glucose 137 H 116 H Medications Medications Current Medications Acetaminophen (Acetaminophen 325 Mg Tablet) 650 mg PO Q6H PRN PRN Reason: Headache/Pain Mild Scale (1-3) Al Hydroxide/Mg Hydroxide (Magnesium Hydrox/Alum Hydrox 30 Ml Oral.Susp) 30 ml PO Q6H PRN PRN Reason: Heartburn/Nausea Last Admin: 10/02/21 14:41 Dose: 30 ml Documented by: Aripiprazole (Aripiprazole 20 Mg Tablet) 20 mg PO DAILY [facility] Last Admin: 10/03/21 08:14 Dose: 20 mg Documented by: Ascorbic Acid (Ascorbic Acid 500 Mg Tablet) 1,000 mg PO DAILY [facility] Last Admin: 10/03/21 08:15 Dose: 1,000 mg Documented by: Atorvastatin Calcium (Atorvastatin Calcium 10 Mg Tablet) 5 mg PO BEDTIME [facility] Last Admin: 10/02/21 21:42 Dose: 5 mg Documented by: Bupropion HCl (Bupropion Hcl 100 Mg Tablet) 100 mg PO DAILY [facility] Last Admin: 10/03/21 08:14 Dose: 100 mg Documented by: Clonidine HCl (Clonidine Hcl 0.1 Mg Tablet) 0.1 mg PO TID [facility]; Protocol Last Admin: 10/03/21 14:46 Dose: 0.1 mg Documented by: Clozapine (Clozapine 25 Mg Tablet) 75 mg PO BID [facility] Last Admin: 10/03/21 08:14 Dose: 75 mg Documented by: Cyanocobalamin (Cyanocobalamin (Vitamin B-12) 1,000 Mcg Tablet) 1,000 mcg PO DAILY [facility] Last Admin: 10/03/21 08:14 Dose: 1,000 mcg Documented by: Docusate Sodium (Docusate Sodium 100 Mg Capsule) 100 mg PO BEDTIME [facility] Last Admin: 10/02/21 21:42 Dose: 100 mg Documented by: Ferrous Sulfate (Ferrous Sulfate 324 Mg Tablet.) 324 mg PO DAILY [facility] Last Admin: 10/03/21 08:14 Dose: 324 mg Documented by: Hydroxyzine HCl (Hydroxyzine Hcl 25 Mg Tablet) 25 mg PO BEDTIME PRN PRN Reason: Anxiety Lorazepam (Lorazepam 0.5 Mg Tablet) 0.5 mg PO Q4H PRN PRN Reason: anxiety, catatonia Lorazepam (Lorazepam 0.5 Mg Tablet) 0.5 mg PO BID [facility] Last Admin: 10/03/21 08:14 Dose: 0.5 mg Documented by: Losartan Potassium (Losartan Potassium 25 Mg Tablet) 25 mg PO DAILY [facility]; Protocol Last Admin: 10/03/21 08:15 Dose: 25 mg Documented by: Magnesium Hydroxide (Milk Of Magnesia 30 Ml Oral.Susp) 30 ml PO DAILY PRN PRN Reason: Constipation Metformin HCl (Metformin Hcl 1,000 Mg Tablet) 1,000 mg PO BID [facility] Last Admin: 10/03/21 08:15 Dose: 1,000 mg Documented by: Multivitamins/Vitamin C (Multivitamin Tablet) 1 tab PO DAILY [facility] Last Admin: 10/03/21 08:15 Dose: 1 tab Documented by: Non-Formulary Medication (Cinnamon) 1,000 mg PO DAILY [facility] Last Admin: 10/03/21 08:15 Dose: 1,000 mg Documented by: Non-Formulary Medication (Jardiance) 10 mg PO DAILY [facility] Omeprazole (Omeprazole 20 Mg Capsule.Dr) 20 mg PO DAILY@0630 [facility] Last Admin: 10/03/21 06:31 Dose: 20 mg Documented by: Ondansetron HCl (Ondansetron Odt 8 Mg Tab.Rapdis) 8 mg TRANSLINGU Q8H PRN PRN Reason: nausea Trazodone HCl (Trazodone Hcl 50 Mg Tablet) 50 mg PO BEDTIME PRN PRN Reason: Insomnia Vitamin D (Cholecalciferol (Vitamin D3) 10 Mcg Tablet) 10 mcg PO DAILY [facility] Last Admin: 10/03/21 08:15 Dose: 10 mcg Documented by: Allergies Allergies Allergy/AdvReac Type Severity Reaction Status Date / Time lisinopril [LISINOPRIL] Allergy Unknown SWOLLEN Verified 09/17/21 08:42 LIPS, angioedema, swelling Assessment & Plan Assessment & Plan (1) Schizoaffective disorder: Status: Acute Code(s): F25.9 - Schizoaffective disorder, unspecified (2) Invasive ductal carcinoma of right breast: Status: Acute Code(s): C50.911 - Malignant neoplasm of unspecified site of right female breast (3) Hypertension: Qualifiers: Hypertension type: essential hypertension Qualified Code(s): I10 - Essential (primary) hypertension Status: Acute Code(s): I10 - Essential (primary) hypertension (4) Hypercholesterolemia: Status: Acute Code(s): E78.00 - Pure hypercholesterolemia, unspecified (5) Type 2 diabetes mellitus with hyperglycemia: Qualifiers: Diabetes mellitus terminal manager insulin use: without terminal manager use Qualified Code(s): E11.65 - Type 2 diabetes mellitus with hyperglycemia Status: Acute Code(s): E11.65 - Type 2 diabetes mellitus with hyperglycemia Assessment and Plan: Continue metformin Jardiance not on formulary monitor point of care (6) GERD (gastroesophageal reflux disease): Qualifiers: Esophagitis presence: without esophagitis Qualified Code(s): K21.9 - Gastro-esophageal reflux disease without esophagitis Status: Acute Code(s): K21.9 - Gastro-esophageal reflux disease without esophagitis Plan 50 yo female, hx of schizoaffective disorder, depressed with R breast cancer, having just completed first cycle of chemotherapy. Pt's partner and sister report to crisis team that pt has had a significant mental status change with psychotic symptoms, paranoia, perceptual alterations, poor sleep and significant thought blocking. Pt denies SI, HI. Today she is a very poor historian-almost pre-catatonic at times, considering signing a three day notice of intent. Team report by history she may not be comfortable in this facility. Assessment plan for 09/21/2021 Continue current medical treatment elevated white blood count noted over the past month question related to cancer treatment. No evidence of infection Patient depressed withdrawn preoccupied patient with recent treatment for ductal carcinoma stress of this might certainly lead to depressive almost catatonic episode 09/22/21 Pt with thought blocking improved from yeterday have restarted wellbutin hosp did not have sr cont clozapine evaluate baseline denies self harm oob more 09/23/21 Continue current plan of care. Collateral contacts with OP team, oncology. 09/24/21 Increase Abilify to 30 mg daily Pt currently refusing Lorazepam TDN expires 09/25/21-will file for civil commitment if pt persists in wanting discharge 09/25/21 Civil commitment filing completed Continue current regime. 09/26/21 Continue current regime 09/27/32 Decrease Abilify to 20 mg daily Risperdal 1.5 mg HS 09/28/21 Continue plan as above 09/29/21 No changes 09/30/21 Court 10/01/21 Chemotherapy 10/01/21 Increase Risperdal to 2.5 mg HS Decrease Abilify to 10 mg daily 10/02/21 Tolerating change back to Abilify from Risperdal Appetite is improved. Calmer, more visable, however continues with paranoia Jardiance ordered from [facility] 10/03/21 Increase Abilify to 30 mg daily Will pursue validation of pt's HCP for continued chemotherapy Tentative chemotherapy 10/09. I spent minutes with the patient and/or on the patient floor today, greater than?50% of which was spent counseling/coordinating care. Patient educated on: medication risk/benefits and therapeutic strategies Informed Consent: further education needed Reason for contiued inpatient stay Substantial Risk for: harm to self, inability to function, rapid decompensation and med/psych decompensation
[2021-10-03 20:36] VITALS: BP 113/70; PULSE 106; RESP 18; TEMP 35.7
[2021-10-03] MEDS: Atorvastatin Calcium 10 MG TABLET 5 MG PO (20:39)
[2021-10-03] MEDS: Docusate Sodium 100 MG CAPSULE PO (20:39)
[2021-10-04] MEDS: Omeprazole 20 MG CAPSULE.DR PO (06:46)
[2021-10-04 08:06] LABS: Glucose, Whole Blood 149 mg/dL (60-115)
[2021-10-04 08:45] VITALS: BP 131/76; PULSE 95; RESP 16; TEMP 36.6; O2SAT 99
[2021-10-04] MEDS: Losartan Potassium 25 MG TABLET PO (09:08)
[2021-10-04] MEDS: Cyanocobalamin (Vitamin B-12) 1,000 MCG TABLET 1000 MCG PO (09:09)
[2021-10-04] MEDS: cloNIDine HCL 0.1 MG TABLET PO ×3 (09:10→20:43)
[2021-10-04] MEDS: buPROPion HCL 100 MG TABLET PO (09:10)
[2021-10-04] MEDS: Ferrous Sulfate 324 MG TABLET.DR PO (09:10)
[2021-10-04] MEDS: Cholecalciferol (Vitamin D3) 10 MCG TABLET PO (09:10)
[2021-10-04] MEDS: Multivitamin TABLET 1 TAB PO (09:11)
[2021-10-04] MEDS: metFORMIN HCl 1,000 MG TABLET 1000 MG PO ×2 (09:11→20:43)
[2021-10-04] MEDS: ARIPiprazole 30 MG TABLET PO (09:12)
[2021-10-04] MEDS: Ascorbic Acid 500 MG TABLET 1000 MG PO (09:12)
[2021-10-04] MEDS: cloZAPine 25 MG TABLET 75 MG PO ×2 (09:12→20:43)
[2021-10-04] MEDS: LORazepam 0.5 MG TABLET PO ×2 (09:14→20:43)
[2021-10-04 15:09] VITALS: BP 130/71; PULSE 100
--- NOTE | 2021-10-04 16:49 | HO.PSYCHPN ---
Subjective Subjective Date of Service: 10/04/21 Reason For Visit: Depression paranoia Subjective Notes: [employer] Proxy: Yes Guardianship: No Medical Problems Affecting Mental Status: Yes Interim History: Sabra approached tw to meet, had her medicine list with her which we reviewed. She was alert, clear, slowed, with some thought blocking evident- we discussed making all med changes with Kailey and her sister to offer extral support and reassurance. She is agreeable to this plan. She identifies feeling some areas of confusion and misunderstanding-discussed just asking for assistance which she agreed she would do. She discussed discharge and we talked of what symptoms needed to be in better control prior to her discharge. Medication Compliance: Yes Side effects from medications: No Attending Groups: Yes Review of Systems Acute medical concerns: Yes Medical Review of Systems: unchanged Review of Systems Reports confusion Psychiatric: Reports anxiety, Reports confusion, Reports depression, Reports difficulty concentrating, Reports hopelessness, Reports anhedonia and Reports paranoia Mental Status Exam Mental Status Exam Patient Appearance: Fatigued Patient Orientation: Person and Place Level of Consciousness: Alert Patient Behavior: Guarded, Talkative, Cooperative, Suspicious, Anxious, Fatigued, Distractible and Poor Eye Contact Mood Description: Depressed and Apprehensive Affect Description: Flat and Apprehensive Patient Cognition Impaired: No Ability to Follow Directions: Good Speech Pattern: Impoverished, Appropriate, Spontaneous Speech, Soft-Spoken, Delayed and Long Pauses Memory Description: Remote Impaired and Episodic Impaired Delusions: Paranoid Ideation and Present Perceptual Disturbances: Depersonalization and Derealization Thought Process: Distracted, Rumination and Slowed Thinking Thought Content: positive for [place], positive for Circumstantial, positive for Perseveration, positive for Preoccupation, positive for Thought Blocking, positive for Slowed Thinking and positive for Disorganized Depressive Symptoms: Increased Anxiety, Diff. Making Decisions, Loss of Int. in Activity, Feelings of Worthlessness, Hopelessness, Unhappiness, Increased Fatigue, Low Self Esteem, Loss of Energy and Difficulty Concentrating Judgement: Poor Diagnostics Vital Signs (24Hr): Vital Signs - 24 hr 10/03/21 20:36 10/04/21 08:45 10/04/21 15:09 Temperature 96.3 F L 97.8 F Pulse Rate 106 H 95 100 Respiratory Rate 18 16 Blood Pressure 113/70 131/76 130/71 Pulse Oximetry 99 BMI result Body Mass Index 35.6 Labs Results: 09/19/21 19:58 09/28/21 10:40 Labs: Laboratory Results - last 48 hr 10/03/21 10/03/21 10/04/21 06:23 10:01 07:53 Absolute Neuts (auto) 2.6 POC Glucose 116 H 149 H Medications Medications Current Medications Acetaminophen (Acetaminophen 325 Mg Tablet) 650 mg PO Q6H PRN PRN Reason: Headache/Pain Mild Scale (1-3) Al Hydroxide/Mg Hydroxide (Magnesium Hydrox/Alum Hydrox 30 Ml Oral.Susp) 30 ml PO Q6H PRN PRN Reason: Heartburn/Nausea Last Admin: 10/02/21 14:41 Dose: 30 ml Documented by: Aripiprazole (Aripiprazole 30 Mg Tablet) 30 mg PO DAILY [facility] Last Admin: 10/04/21 09:12 Dose: 30 mg Documented by: Ascorbic Acid (Ascorbic Acid 500 Mg Tablet) 1,000 mg PO DAILY [facility] Last Admin: 10/04/21 09:12 Dose: 1,000 mg Documented by: Atorvastatin Calcium (Atorvastatin Calcium 10 Mg Tablet) 5 mg PO BEDTIME [facility] Last Admin: 10/03/21 20:39 Dose: 5 mg Documented by: Bupropion HCl (Bupropion Hcl 100 Mg Tablet) 100 mg PO DAILY [facility] Last Admin: 10/04/21 09:10 Dose: 100 mg Documented by: Clonidine HCl (Clonidine Hcl 0.1 Mg Tablet) 0.1 mg PO TID [facility]; Protocol Last Admin: 10/04/21 15:06 Dose: 0.1 mg Documented by: Clozapine (Clozapine 25 Mg Tablet) 75 mg PO BID [facility] Last Admin: 10/04/21 09:12 Dose: 75 mg Documented by: Cyanocobalamin (Cyanocobalamin (Vitamin B-12) 1,000 Mcg Tablet) 1,000 mcg PO DAILY [facility] Last Admin: 10/04/21 09:09 Dose: 1,000 mcg Documented by: Docusate Sodium (Docusate Sodium 100 Mg Capsule) 100 mg PO BEDTIME [facility] Last Admin: 10/03/21 20:39 Dose: 100 mg Documented by: Ferrous Sulfate (Ferrous Sulfate 324 Mg Tablet.) 324 mg PO DAILY [facility] Last Admin: 10/04/21 09:10 Dose: 324 mg Documented by: Hydroxyzine HCl (Hydroxyzine Hcl 25 Mg Tablet) 25 mg PO BEDTIME PRN PRN Reason: Anxiety Lorazepam (Lorazepam 0.5 Mg Tablet) 0.5 mg PO Q4H PRN PRN Reason: anxiety, catatonia Lorazepam (Lorazepam 0.5 Mg Tablet) 0.5 mg PO BID [facility] Last Admin: 10/04/21 09:14 Dose: 0.5 mg Documented by: Losartan Potassium (Losartan Potassium 25 Mg Tablet) 25 mg PO DAILY [facility]; Protocol Last Admin: 10/04/21 09:08 Dose: 25 mg Documented by: Magnesium Hydroxide (Milk Of Magnesia 30 Ml Oral.Susp) 30 ml PO DAILY PRN PRN Reason: Constipation Metformin HCl (Metformin Hcl 1,000 Mg Tablet) 1,000 mg PO BID [facility] Last Admin: 10/04/21 09:11 Dose: 1,000 mg Documented by: Multivitamins/Vitamin C (Multivitamin Tablet) 1 tab PO DAILY [facility] Last Admin: 10/04/21 09:11 Dose: 1 tab Documented by: Non-Formulary Medication (Cinnamon) 1,000 mg PO DAILY [facility] Last Admin: 10/04/21 09:14 Dose: 1,000 mg Documented by: Patient Own Medication ( Empagliflozin 10 Mg) 1 each PO DAILY [facility] Last Admin: 10/04/21 11:54 Dose: Not Given Documented by: Omeprazole (Omeprazole 20 Mg Capsule.Dr) 20 mg PO DAILY@0630 [facility] Last Admin: 10/04/21 06:46 Dose: 20 mg Documented by: Ondansetron HCl (Ondansetron Odt 8 Mg Tab.Rapdis) 8 mg TRANSLINGU Q8H PRN PRN Reason: nausea Trazodone HCl (Trazodone Hcl 50 Mg Tablet) 50 mg PO BEDTIME PRN PRN Reason: Insomnia Vitamin D (Cholecalciferol (Vitamin D3) 10 Mcg Tablet) 10 mcg PO DAILY [facility] Last Admin: 10/04/21 09:10 Dose: 10 mcg Documented by: Allergies Allergies Allergy/AdvReac Type Severity Reaction Status Date / Time lisinopril [LISINOPRIL] Allergy Unknown SWOLLEN Verified 09/17/21 08:42 LIPS, angioedema, swelling Assessment & Plan Assessment & Plan (1) Schizoaffective disorder: Status: Acute Code(s): F25.9 - Schizoaffective disorder, unspecified (2) Invasive ductal carcinoma of right breast: Status: Acute Code(s): C50.911 - Malignant neoplasm of unspecified site of right female breast (3) Hypertension: Qualifiers: Hypertension type: essential hypertension Qualified Code(s): I10 - Essential (primary) hypertension Status: Acute Code(s): I10 - Essential (primary) hypertension (4) Hypercholesterolemia: Status: Acute Code(s): E78.00 - Pure hypercholesterolemia, unspecified (5) Type 2 diabetes mellitus with hyperglycemia: Qualifiers: Diabetes mellitus finish mixer insulin use: without long-term use Qualified Code(s): E11.65 - Type 2 diabetes mellitus with hyperglycemia Status: Acute Code(s): E11.65 - Type 2 diabetes mellitus with hyperglycemia Assessment and Plan: Continue metformin Jardiance not on formulary monitor point of care (6) GERD (gastroesophageal reflux disease): Qualifiers: Esophagitis presence: without esophagitis Qualified Code(s): K21.9 - Gastro-esophageal reflux disease without esophagitis Status: Acute Code(s): K21.9 - Gastro-esophageal reflux disease without esophagitis Plan 50 yo female, hx of schizoaffective disorder, depressed with R breast cancer, having just completed first cycle of chemotherapy. Pt's partner and sister report to crisis team that pt has had a significant mental status change with psychotic symptoms, paranoia, perceptual alterations, poor sleep and significant thought blocking. Pt denies SI, HI. Today she is a very poor historian-almost pre-catatonic at times, considering signing a three day notice of intent. Team report by history she may not be comfortable in this facility. Assessment plan for 09/21/2021 Continue current medical treatment elevated white blood count noted over the past month question related to cancer treatment. No evidence of infection Patient depressed withdrawn preoccupied patient with recent treatment for ductal carcinoma stress of this might certainly lead to depressive almost catatonic episode 09/22/21 Pt with thought blocking improved from yeterday have restarted wellbutin hosp did not have sr cont clozapine evaluate baseline denies self harm oob more 09/23/21 Continue current plan of care. Collateral contacts with OP team, oncology. 09/24/21 Increase Abilify to 30 mg daily Pt currently refusing Lorazepam TDN expires 09/25/21-will file for civil commitment if pt persists in wanting discharge 09/25/21 Civil commitment filing completed Continue current regime. 09/26/21 Continue current regime 09/27/32 Decrease Abilify to 20 mg daily Risperdal 1.5 mg HS 09/28/21 Continue plan as above 09/29/21 No changes 09/30/21 Court 10/01/21 Chemotherapy 10/01/21 Increase Risperdal to 2.5 mg HS Decrease Abilify to 10 mg daily 10/02/21 Tolerating change back to Abilify from Risperdal Appetite is improved. Calmer, more visable, however continues with paranoia Jardiance ordered from [facility] 10/03/21 Increase Abilify to 30 mg daily Will pursue validation of pt's HCP for continued chemotherapy Tentative chemotherapy 10/09. 10/04/21 Continue current regime I spent minutes with the patient and/or on the patient floor today, greater than?50% of which was spent counseling/coordinating care. Patient educated on: medication risk/benefits Informed Consent: further education needed Reason for contiued inpatient stay Substantial Risk for: harm to self, inability to function, rapid decompensation and med/psych decompensation
[2021-10-04 18:00] VITALS: BP 121/69; PULSE 92; RESP 16; TEMP 36.6; O2SAT 98
[2021-10-04] MEDS: Atorvastatin Calcium 10 MG TABLET 5 MG PO (20:42)
[2021-10-04] MEDS: Docusate Sodium 100 MG CAPSULE PO (20:43)
[2021-10-05 06:49] LABS: Glucose, Whole Blood 141 mg/dL (60-115)
[2021-10-05 08:53] VITALS: BP 124/74; PULSE 89; TEMP 36.8
[2021-10-05] MEDS: cloZAPine 25 MG TABLET 75 MG PO ×2 (09:03→22:04)
[2021-10-05] MEDS: metFORMIN HCl 1,000 MG TABLET 1000 MG PO ×2 (09:03→22:03)
[2021-10-05] MEDS: cloNIDine HCL 0.1 MG TABLET PO ×3 (09:04→22:04)
[2021-10-05] MEDS: Omeprazole 20 MG CAPSULE.DR PO (09:04)
[2021-10-05] MEDS: ARIPiprazole 30 MG TABLET PO (09:04)
[2021-10-05] MEDS: LORazepam 0.5 MG TABLET PO ×2 (09:05→22:03)
[2021-10-05] MEDS: Ferrous Sulfate 324 MG TABLET.DR PO (09:05)
[2021-10-05] MEDS: Cholecalciferol (Vitamin D3) 10 MCG TABLET PO (09:05)
[2021-10-05] MEDS: Ascorbic Acid 500 MG TABLET 1000 MG PO (09:05)
[2021-10-05] MEDS: buPROPion HCL 100 MG TABLET PO (09:06)
[2021-10-05] MEDS: Cyanocobalamin (Vitamin B-12) 1,000 MCG TABLET 1000 MCG PO (09:06)
[2021-10-05] MEDS: Losartan Potassium 25 MG TABLET PO (09:06)
[2021-10-05 16:50] VITALS: BP 121/80; PULSE 92; TEMP 36.6; O2SAT 98
[2021-10-05] MEDS: Atorvastatin Calcium 10 MG TABLET 5 MG PO (22:02)
[2021-10-05] MEDS: Docusate Sodium 100 MG CAPSULE PO (22:03)
--- NOTE | 2021-10-05 23:32 | P.PNPSI_ITS ---
Subjective Subjective Date of Service: 10/05/21 Reason For Visit: Depression paranoia Interim History: Patient says that she is not so well upon Inquiry she 1st says she does not know why but then says that she has a little depressed. She does not want to adjust her medications Wondering if Down mood will resolve on its own. She also says she denies any SI but adds right now Staff reports that patient is suspicious about her medications however continues to take them Mental Status Exam Mental Status Exam Narrative: Patient Appearance:?wearing a hat; adequately groomed Patient Orientation:?Person and Place Level of Consciousness:?Alert Patient Behavior:?Guarded, quiet, latent speech; Poor Eye Contact Mood Description:?Depressed Affect Description:?Flat and Apprehensive Patient Cognition Impaired:?No Ability to Follow Directions:?fair Speech Pattern:latent, long pauses Memory Description:?Remote Impaired and Episodic Impaired Delusions:?Paranoid Ideation Perceptual Disturbances:?Depersonalization and Derealization Thought Process:?Distracted, Rumination and Slowed Thinking Thought Content:?positive for [place], positive for Circumstantial, positive for Perseveration, positive for Preoccupation, positive for Thought Blocking, positive for Slowed Thinking and positive for Disorganized Insight/Judgement:?impaired Diagnostics Vital Signs (24Hr): Vital Signs - 24 hr 10/05/21 08:53 10/05/21 16:50 Temperature 98.2 F 97.8 F Pulse Rate 89 92 Blood Pressure 124/74 121/80 Pulse Oximetry 98 BMI result Body Mass Index 35.6 Labs Results: 09/19/21 19:58 09/28/21 10:40 Labs: Laboratory Results - last 48 hr 10/04/21 10/05/21 07:53 06:46 POC Glucose 149 H 141 H Medications Medications Current Medications Acetaminophen (Acetaminophen 325 Mg Tablet) 650 mg PO Q6H PRN PRN Reason: Headache/Pain Mild Scale (1-3) Al Hydroxide/Mg Hydroxide (Magnesium Hydrox/Alum Hydrox 30 Ml Oral.Susp) 30 ml PO Q6H PRN PRN Reason: Heartburn/Nausea Last Admin: 10/02/21 14:41 Dose: 30 ml Documented by: Aripiprazole (Aripiprazole 30 Mg Tablet) 30 mg PO DAILY [facility] Last Admin: 10/05/21 09:04 Dose: 30 mg Documented by: Ascorbic Acid (Ascorbic Acid 500 Mg Tablet) 1,000 mg PO DAILY [facility] Last Admin: 10/05/21 09:05 Dose: 1,000 mg Documented by: Atorvastatin Calcium (Atorvastatin Calcium 10 Mg Tablet) 5 mg PO BEDTIME [facility] Last Admin: 10/05/21 22:02 Dose: 5 mg Documented by: Bupropion HCl (Bupropion Hcl 100 Mg Tablet) 100 mg PO DAILY [facility] Last Admin: 10/05/21 09:06 Dose: 100 mg Documented by: Clonidine HCl (Clonidine Hcl 0.1 Mg Tablet) 0.1 mg PO TID [facility]; Protocol Last Admin: 10/05/21 22:04 Dose: 0.1 mg Documented by: Clozapine (Clozapine 25 Mg Tablet) 75 mg PO BID [facility] Last Admin: 10/05/21 22:04 Dose: 75 mg Documented by: Cyanocobalamin (Cyanocobalamin (Vitamin B-12) 1,000 Mcg Tablet) 1,000 mcg PO DAILY [facility] Last Admin: 10/05/21 09:06 Dose: 1,000 mcg Documented by: Docusate Sodium (Docusate Sodium 100 Mg Capsule) 100 mg PO BEDTIME [facility] Last Admin: 10/05/21 22:03 Dose: 100 mg Documented by: Ferrous Sulfate (Ferrous Sulfate 324 Mg Tablet.) 324 mg PO DAILY [facility] Last Admin: 10/05/21 09:05 Dose: 324 mg Documented by: Hydroxyzine HCl (Hydroxyzine Hcl 25 Mg Tablet) 25 mg PO BEDTIME PRN PRN Reason: Anxiety Lorazepam (Lorazepam 0.5 Mg Tablet) 0.5 mg PO Q4H PRN PRN Reason: anxiety, catatonia Lorazepam (Lorazepam 0.5 Mg Tablet) 0.5 mg PO BID [facility] Last Admin: 10/05/21 22:03 Dose: 0.5 mg Documented by: Losartan Potassium (Losartan Potassium 25 Mg Tablet) 25 mg PO DAILY [facility]; Protocol Last Admin: 10/05/21 09:06 Dose: 25 mg Documented by: Magnesium Hydroxide (Milk Of Magnesia 30 Ml Oral.Susp) 30 ml PO DAILY PRN PRN Reason: Constipation Metformin HCl (Metformin Hcl 1,000 Mg Tablet) 1,000 mg PO BID [facility] Last Admin: 10/05/21 22:03 Dose: 1,000 mg Documented by: Multivitamins/Vitamin C (Multivitamin Tablet) 1 tab PO DAILY [facility] Last Admin: 10/04/21 09:11 Dose: 1 tab Documented by: Non-Formulary Medication (Cinnamon) 1,000 mg PO DAILY [facility] Last Admin: 10/05/21 09:01 Dose: 1,000 mg Documented by: Patient Own Medication ( Empagliflozin 10 Mg) 1 each PO DAILY [facility] Last Admin: 10/05/21 09:01 Dose: 1 each Documented by: Omeprazole (Omeprazole 20 Mg Capsule.Dr) 20 mg PO DAILY@0630 [facility] Last Admin: 10/05/21 09:04 Dose: 20 mg Documented by: Ondansetron HCl (Ondansetron Odt 8 Mg Tab.Margot) 8 mg TRANSLINGU Q8H PRN PRN Reason: nausea Trazodone HCl (Trazodone Hcl 50 Mg Tablet) 50 mg PO BEDTIME PRN PRN Reason: Insomnia Vitamin D (Cholecalciferol (Vitamin D3) 10 Mcg Tablet) 10 mcg PO DAILY [facility] Last Admin: 10/05/21 09:05 Dose: 10 mcg Documented by: Allergies Allergies Allergy/AdvReac Type Severity Reaction Status Date / Time lisinopril [LISINOPRIL] Allergy Unknown SWOLLEN Verified 09/17/21 08:42 LIPS, angioedema, swelling Assessment & Plan Assessment & Plan (1) Schizoaffective disorder: Status: Acute Code(s): F25.9 - Schizoaffective disorder, unspecified (2) Invasive ductal carcinoma of right breast: Status: Acute Code(s): C50.911 - Malignant neoplasm of unspecified site of right female breast (3) Hypertension: Qualifiers: Hypertension type: essential hypertension Qualified Code(s): I10 - Essential (primary) hypertension Status: Acute Code(s): I10 - Essential (primary) hypertension (4) Hypercholesterolemia: Status: Acute Code(s): E78.00 - Pure hypercholesterolemia, unspecified (5) Type 2 diabetes mellitus with hyperglycemia: Qualifiers: Diabetes mellitus exterminator termite insulin use: without assisted use Qualified Code(s): E11.65 - Type 2 diabetes mellitus with hyperglycemia Status: Acute Code(s): E11.65 - Type 2 diabetes mellitus with hyperglycemia Assessment and Plan: Continue metformin Jardiance not on formulary monitor point of care (6) GERD (gastroesophageal reflux disease): Qualifiers: Esophagitis presence: without esophagitis Qualified Code(s): K21.9 - Gastro-esophageal reflux disease without esophagitis Status: Acute Code(s): K21.9 - Gastro-esophageal reflux disease without esophagitis Plan 50 yo female, hx of schizoaffective disorder, depressed with R breast cancer, having just completed first cycle of chemotherapy. Pt's partner and sister report to crisis team that pt has had a significant mental status change with psychotic symptoms, paranoia, perceptual alterations, poor sleep and significant thought blocking. Pt denies SI, HI. Today she is a very poor historian-almost pre-catatonic at times, considering signing a three day notice of intent. Team report by history she may not be comfortable in this facility. Assessment plan for 09/21/2021 Continue current medical treatment elevated white blood count noted over the past month question related to cancer treatment. No evidence of infection Patient depressed withdrawn preoccupied patient with recent treatment for ductal carcinoma stress of this might certainly lead to depressive almost catatonic episode 09/22/21 Pt with thought blocking improved from yeterday have restarted wellbutin hosp did not have sr cont clozapine evaluate baseline denies self harm oob more 09/23/21 Continue current plan of care. Collateral contacts with OP team, oncology. 09/24/21 Increase Abilify to 30 mg daily Pt currently refusing Lorazepam TDN expires 09/25/21-will file for civil commitment if pt persists in wanting discharge 09/25/21 Civil commitment filing completed Continue current regime. 09/26/21 Continue current regime 09/27/32 Decrease Abilify to 20 mg daily Risperdal 1.5 mg HS 09/28/21 Continue plan as above 09/29/21 No changes 09/30/21 Court 10/01/21 Chemotherapy 10/01/21 Increase Risperdal to 2.5 mg HS Decrease Abilify to 10 mg daily 10/02/21 Tolerating change back to Abilify from Risperdal Appetite is improved. Calmer, more visable, however continues with paranoia Jardiance ordered from [facility] 10/03/21 Increase Abilify to 30 mg daily Will pursue validation of pt's HCP for continued chemotherapy Tentative chemotherapy 10/09. 10/04/21 Continue current regime 10/06 no changes to current regimen I spent minutes with the patient and/or on the patient floor today, greater than?50% of which was spent counseling/coordinating care. Reason for contiued inpatient stay Substantial Risk for: inability to function
[2021-10-06] MEDS: Cholecalciferol (Vitamin D3) 10 MCG TABLET PO (08:50)
[2021-10-06] MEDS: metFORMIN HCl 1,000 MG TABLET 1000 MG PO ×2 (08:51→21:09)
[2021-10-06] MEDS: cloZAPine 25 MG TABLET 75 MG PO ×2 (08:51→21:10)
[2021-10-06] MEDS: Ascorbic Acid 500 MG TABLET 1000 MG PO (08:52)
[2021-10-06] MEDS: ARIPiprazole 30 MG TABLET PO (08:52)
[2021-10-06] MEDS: cloNIDine HCL 0.1 MG TABLET PO ×3 (08:53→21:10)
[2021-10-06] MEDS: LORazepam 0.5 MG TABLET PO ×2 (08:54→21:11)
[2021-10-06] MEDS: Ferrous Sulfate 324 MG TABLET.DR PO (08:55)
[2021-10-06] MEDS: buPROPion HCL 100 MG TABLET PO (08:55)
[2021-10-06] MEDS: Losartan Potassium 25 MG TABLET PO (08:55)
[2021-10-06] MEDS: Cyanocobalamin (Vitamin B-12) 1,000 MCG TABLET 1000 MCG PO (08:56)
[2021-10-06 09:00] VITALS: BP 131/75; PULSE 89; RESP 16; TEMP 36.4; O2SAT 100
[2021-10-06] MEDS: Multivitamin TABLET 1 TAB PO (09:33)
--- NOTE | 2021-10-06 16:47 | HO.PSYCHPN ---
Subjective Subjective Date of Service: 10/06/21 Reason For Visit: Depression paranoia Interim History: Patient says she is okay; does not look at functional tester typewriters, upon inquiry only request is whether not nurses can print out her medications to which functional tester typewriters Affirms. Patient says she will reach out if she wants to talk. Staff reports patient remains very suspicious with her medications in that it takes quite some time as she wants to go over the packaging and then each individual pill before she takes them, requiring constant reassurance Mental Status Exam Mental Status Exam Narrative: Patient Appearance:?wearing a hat; adequately groomed Patient Orientation:?Person and Place Level of Consciousness:?Alert Patient Behavior:?Guarded, quiet, latent speech; Poor Eye Contact Mood Description:?Depressed Affect Description:?Flat and Apprehensive Patient Cognition Impaired:?No Ability to Follow Directions:?fair Speech Pattern:latent, long pauses Memory Description:?Remote Impaired and Episodic Impaired Delusions:?Paranoid Ideation Perceptual Disturbances:?Depersonalization and Derealization Thought Process:?Distracted, Rumination and Slowed Thinking Thought Content:?positive for Okay, positive for Circumstantial, positive for Perseveration, positive for Preoccupation, positive for Thought Blocking, positive for Slowed Thinking and positive for Disorganized Insight/Judgement:?impaired Diagnostics Vital Signs (24Hr): Vital Signs - 24 hr 10/05/21 16:50 10/06/21 09:00 Temperature 97.8 F 97.6 F Pulse Rate 92 89 Respiratory Rate 16 Blood Pressure 121/80 131/75 Pulse Oximetry 98 100 BMI result Body Mass Index 35.6 Labs Results: 09/19/21 19:58 09/28/21 10:40 Labs: Laboratory Results - last 48 hr 10/05/21 06:46 POC Glucose 141 H Medications Medications Current Medications Acetaminophen (Acetaminophen 325 Mg Tablet) 650 mg PO Q6H PRN PRN Reason: Headache/Pain Mild Scale (1-3) Al Hydroxide/Mg Hydroxide (Magnesium Hydrox/Alum Hydrox 30 Ml Oral.Susp) 30 ml PO Q6H PRN PRN Reason: Heartburn/Nausea Last Admin: 10/02/21 14:41 Dose: 30 ml Documented by: Aripiprazole (Aripiprazole 30 Mg Tablet) 30 mg PO DAILY [facility] Last Admin: 10/06/21 08:52 Dose: 30 mg Documented by: Ascorbic Acid (Ascorbic Acid 500 Mg Tablet) 1,000 mg PO DAILY [facility] Last Admin: 10/06/21 08:52 Dose: 1,000 mg Documented by: Atorvastatin Calcium (Atorvastatin Calcium 10 Mg Tablet) 5 mg PO BEDTIME [facility] Last Admin: 10/05/21 22:02 Dose: 5 mg Documented by: Bupropion HCl (Bupropion Hcl 100 Mg Tablet) 100 mg PO DAILY [facility] Last Admin: 10/06/21 08:55 Dose: 100 mg Documented by: Clonidine HCl (Clonidine Hcl 0.1 Mg Tablet) 0.1 mg PO TID [facility]; Protocol Last Admin: 10/06/21 16:17 Dose: 0.1 mg Documented by: Clozapine (Clozapine 25 Mg Tablet) 75 mg PO BID [facility] Last Admin: 10/06/21 08:51 Dose: 75 mg Documented by: Cyanocobalamin (Cyanocobalamin (Vitamin B-12) 1,000 Mcg Tablet) 1,000 mcg PO DAILY [facility] Last Admin: 10/06/21 08:56 Dose: 1,000 mcg Documented by: Docusate Sodium (Docusate Sodium 100 Mg Capsule) 100 mg PO BEDTIME [facility] Last Admin: 10/05/21 22:03 Dose: 100 mg Documented by: Ferrous Sulfate (Ferrous Sulfate 324 Mg Tablet.) 324 mg PO DAILY [facility] Last Admin: 10/06/21 08:55 Dose: 324 mg Documented by: Hydroxyzine HCl (Hydroxyzine Hcl 25 Mg Tablet) 25 mg PO BEDTIME PRN PRN Reason: Anxiety Lorazepam (Lorazepam 0.5 Mg Tablet) 0.5 mg PO Q4H PRN PRN Reason: anxiety, catatonia Lorazepam (Lorazepam 0.5 Mg Tablet) 0.5 mg PO BID [facility] Last Admin: 10/06/21 08:54 Dose: 0.5 mg Documented by: Losartan Potassium (Losartan Potassium 25 Mg Tablet) 25 mg PO DAILY [facility]; Protocol Last Admin: 10/06/21 08:55 Dose: 25 mg Documented by: Magnesium Hydroxide (Milk Of Magnesia 30 Ml Oral.Susp) 30 ml PO DAILY PRN PRN Reason: Constipation Metformin HCl (Metformin Hcl 1,000 Mg Tablet) 1,000 mg PO BID [facility] Last Admin: 10/06/21 08:51 Dose: 1,000 mg Documented by: Multivitamins/Vitamin C (Multivitamin Tablet) 1 tab PO DAILY [facility] Last Admin: 10/06/21 09:33 Dose: 1 tab Documented by: Non-Formulary Medication (Cinnamon) 1,000 mg PO DAILY [facility] Last Admin: 10/06/21 08:56 Dose: 1,000 mg Documented by: Patient Own Medication ( Empagliflozin 10 Mg) 1 each PO DAILY [facility] Last Admin: 10/06/21 08:56 Dose: 1 each Documented by: Omeprazole (Omeprazole 20 Mg Capsule.Dr) 20 mg PO DAILY@0630 [facility] Last Admin: 10/06/21 06:05 Dose: Not Given Documented by: Ondansetron HCl (Ondansetron Odt 8 Mg Tab.Rapdis) 8 mg TRANSLINGU Q8H PRN PRN Reason: nausea Trazodone HCl (Trazodone Hcl 50 Mg Tablet) 50 mg PO BEDTIME PRN PRN Reason: Insomnia Vitamin D (Cholecalciferol (Vitamin D3) 10 Mcg Tablet) 10 mcg PO DAILY [facility] Last Admin: 10/06/21 08:50 Dose: 10 mcg Documented by: Allergies Allergies Allergy/AdvReac Type Severity Reaction Status Date / Time lisinopril [LISINOPRIL] Allergy Unknown SWOLLEN Verified 09/17/21 08:42 LIPS, angioedema, swelling Assessment & Plan Assessment & Plan (1) Schizoaffective disorder: Status: Acute Code(s): F25.9 - Schizoaffective disorder, unspecified (2) Invasive ductal carcinoma of right breast: Status: Acute Code(s): C50.911 - Malignant neoplasm of unspecified site of right female breast (3) Hypertension: Qualifiers: Hypertension type: essential hypertension Qualified Code(s): I10 - Essential (primary) hypertension Status: Acute Code(s): I10 - Essential (primary) hypertension (4) Hypercholesterolemia: Status: Acute Code(s): E78.00 - Pure hypercholesterolemia, unspecified (5) Type 2 diabetes mellitus with hyperglycemia: Qualifiers: Diabetes mellitus terminal operator insulin use: without longterm use Qualified Code(s): E11.65 - Type 2 diabetes mellitus with hyperglycemia Status: Acute Code(s): E11.65 - Type 2 diabetes mellitus with hyperglycemia Assessment and Plan: Continue metformin Jardiance not on formulary monitor point of care (6) GERD (gastroesophageal reflux disease): Qualifiers: Esophagitis presence: without esophagitis Qualified Code(s): K21.9 - Gastro-esophageal reflux disease without esophagitis Status: Acute Code(s): K21.9 - Gastro-esophageal reflux disease without esophagitis Plan 50 yo female, hx of schizoaffective disorder, depressed with R breast cancer, having just completed first cycle of chemotherapy. Pt's partner and sister report to crisis team that pt has had a significant mental status change with psychotic symptoms, paranoia, perceptual alterations, poor sleep and significant thought blocking. Pt denies SI, HI. Today she is a very poor historian-almost pre-catatonic at times, considering signing a three day notice of intent. Team report by history she may not be comfortable in this facility. Assessment plan for 09/21/2021 Continue current medical treatment elevated white blood count noted over the past month question related to cancer treatment. No evidence of infection Patient depressed withdrawn preoccupied patient with recent treatment for ductal carcinoma stress of this might certainly lead to depressive almost catatonic episode 09/22/21 Pt with thought blocking improved from yeterday have restarted wellbutin hosp did not have sr cont clozapine evaluate baseline denies self harm oob more 09/23/21 Continue current plan of care. Collateral contacts with OP team, oncology. 09/24/21 Increase Abilify to 30 mg daily Pt currently refusing Lorazepam TDN expires 09/25/21-will file for civil commitment if pt persists in wanting discharge 09/25/21 Civil commitment filing completed Continue current regime. 09/26/21 Continue current regime 09/27/32 Decrease Abilify to 20 mg daily Risperdal 1.5 mg HS 09/28/21 Continue plan as above 09/29/21 No changes 09/30/21 Court 10/01/21 Chemotherapy 10/01/21 Increase Risperdal to 2.5 mg HS Decrease Abilify to 10 mg daily 10/02/21 Tolerating change back to Abilify from Risperdal Appetite is improved. Calmer, more visable, however continues with paranoia Jardiance ordered from [email or web address] 10/03/21 Increase Abilify to 30 mg daily Will pursue validation of pt's HCP for continued chemotherapy Tentative chemotherapy 10/09. 10/04/21 Continue current regime 10/05 no changes to current regimen 10/06 no changes to current regimen I spent minutes with the patient and/or on the patient floor today, greater than?50% of which was spent counseling/coordinating care. Reason for contiued inpatient stay Substantial Risk for: inability to function and rapid decompensation
[2021-10-06 19:12] LABS: Blood Urea Nitrogen 11 mg/dL (9-16); Creatinine Clr Calc Pharmacy 85.5; Estimated Glomerular Filt Rate > 60; Glucose Random 120 mg/dL (60-115)
[2021-10-06 19:17] LABS: Anion Gap 17 (12-20); Calcium 9.8 mg/dL (8.4-10.2); Carbon Dioxide 21 mmol/L (22-29); Chloride 106 mmol/L (96-108); Potassium 4.7 mmol/L (3.3-5.1); Sodium 139 mmol/L (135-145)
[2021-10-06] MEDS: Docusate Sodium 100 MG CAPSULE PO (21:11)
[2021-10-07] MEDS: Ferrous Sulfate 324 MG TABLET.DR PO (08:17)
[2021-10-07] MEDS: cloZAPine 25 MG TABLET 75 MG PO ×2 (08:17→20:53)
[2021-10-07] MEDS: Cholecalciferol (Vitamin D3) 10 MCG TABLET PO (08:18)
[2021-10-07] MEDS: Cyanocobalamin (Vitamin B-12) 1,000 MCG TABLET 1000 MCG PO (08:18)
[2021-10-07] MEDS: Multivitamin TABLET 1 TAB PO ×2 (08:18→08:25)
[2021-10-07] MEDS: cloNIDine HCL 0.1 MG TABLET PO ×3 (08:18→20:53)
[2021-10-07] MEDS: ARIPiprazole 30 MG TABLET PO (08:18)
[2021-10-07] MEDS: buPROPion HCL 100 MG TABLET PO (08:18)
[2021-10-07] MEDS: Ascorbic Acid 500 MG TABLET 1000 MG PO (08:18)
[2021-10-07] MEDS: Losartan Potassium 25 MG TABLET PO (08:18)
[2021-10-07] MEDS: metFORMIN HCl 1,000 MG TABLET 1000 MG PO ×2 (08:18→20:52)
[2021-10-07] MEDS: Omeprazole 20 MG CAPSULE.DR PO (08:36)
[2021-10-07 09:00] VITALS: BP 118/80; PULSE 80; RESP 14; TEMP 36.6; O2SAT 96
--- NOTE | 2021-10-07 16:23 | P.PNPSI_ITS ---
Subjective Subjective Date of Service: 10/07/21 Reason For Visit: Depression paranoia Subjective Notes: [employer] Proxy: Yes Guardianship: No Medical Problems Affecting Mental Status: Yes (breast [id number] set to begin 10/09/21) Interim History: Met with Sabra and her mother. Review of plan to begin chemotherapy on 10/09 with team and Kailey. Pt experiencing paranoia over the weekend-believes she has committed crimes, believes we are lying to her, believes that she does not need medicine because she does not have a psychiatric diagnosis, believes she has cecille en advantage of her insurance company and needs to serve time. Asks for an attorney general. States today, I don't need medicine because I am not sick. Pt's mother explained and reoriented Sabra to current circumstances. Increase in Abilify at the end of last week not helpful. Will plan to increase Clozapine on 10/08 to 100 mg bid, an increase of 50 mg daily. Discussed with partner Kailey. Medication Compliance: Yes Side effects from medications: No Attending Groups: Intermittent Review of Systems Acute medical concerns: Yes Medical Review of Systems: unchanged Review of Systems Reports confusion and Reports memory loss Psychiatric: Reports anxiety, Reports confusion, Reports depression, Reports difficulty concentrating, Reports auditory hallucinations, Reports hopelessness, Reports anhedonia, Reports memory loss and Reports paranoia Mental Status Exam Mental Status Exam Patient Appearance: Appropriate Patient Orientation: Person, Place, Time and Situation Level of Consciousness: Alert Patient Behavior: Guarded, Talkative, Suspicious, Anxious, Fearful, Resistive to Care, Distractible, Confused and Good Eye Contact Mood Description: Suspicious, Withdrawn, Depressed, Fearful, Anxious and Nervous Affect Description: Flat Patient Cognition Impaired: No Ability to Follow Directions: Good Speech Pattern: Perseverating, Spontaneous Speech and Soft-Spoken Memory Description: Episodic Impaired Hallucinations: Auditory Delusions: Paranoid Ideation and Present Perceptual Disturbances: Depersonalization and Derealization Thought Process: Illogical, Distracted and Rumination Thought Content: positive for Perseveration and positive for Thought Blocking Depressive Symptoms: Increased Anxiety, Diff. Making Decisions, Difficulty Sleeping, Loss of Int. in Activity, Feelings of Worthlessness, Hopelessness, Unhappiness, Increased Fatigue, Loss of Energy and Difficulty Concentrating Judgement: Poor Diagnostics Vital Signs (24Hr): Vital Signs - 24 hr 10/07/21 09:00 Temperature 98 F Pulse Rate 80 Respiratory Rate 14 Blood Pressure 118/80 Pulse Oximetry 96 BMI result Body Mass Index 35.6 Labs Results: 09/19/21 19:58 10/06/21 18:11 Labs: Laboratory Results - last 48 hr 10/06/21 18:11 Sodium 139 Potassium 4.7 Chloride 106 Carbon Dioxide 21 L Anion Gap 17 BUN 11 Creatinine 0.77 Estim Creat Clear Calc 85.5 Estimated GFR > 60 Random Glucose 120 H Calcium 9.8 Medications Medications Current Medications Acetaminophen (Acetaminophen 325 Mg Tablet) 650 mg PO Q6H PRN PRN Reason: Headache/Pain Mild Scale (1-3) Al Hydroxide/Mg Hydroxide (Magnesium Hydrox/Alum Hydrox 30 Ml Oral.Susp) 30 ml PO Q6H PRN PRN Reason: Heartburn/Nausea Last Admin: 10/02/21 14:41 Dose: 30 ml Documented by: Aripiprazole (Aripiprazole 30 Mg Tablet) 30 mg PO DAILY [facility] Last Admin: 10/07/21 08:18 Dose: 30 mg Documented by: Ascorbic Acid (Ascorbic Acid 500 Mg Tablet) 1,000 mg PO DAILY [facility] Last Admin: 10/07/21 08:18 Dose: 1,000 mg Documented by: Atorvastatin Calcium (Atorvastatin Calcium 10 Mg Tablet) 5 mg PO BEDTIME [facility] Last Admin: 10/07/21 08:22 Dose: Not Given Documented by: Bupropion HCl (Bupropion Hcl 100 Mg Tablet) 100 mg PO DAILY [facility] Last Admin: 10/07/21 08:18 Dose: 100 mg Documented by: Clonidine HCl (Clonidine Hcl 0.1 Mg Tablet) 0.1 mg PO TID [facility]; Protocol Last Admin: 10/07/21 14:43 Dose: 0.1 mg Documented by: Clozapine (Clozapine 25 Mg Tablet) 75 mg PO BID [facility] Last Admin: 10/07/21 08:17 Dose: 75 mg Documented by: Cyanocobalamin (Cyanocobalamin (Vitamin B-12) 1,000 Mcg Tablet) 1,000 mcg PO DAILY [facility] Last Admin: 10/07/21 08:18 Dose: 1,000 mcg Documented by: Docusate Sodium (Docusate Sodium 100 Mg Capsule) 100 mg PO BEDTIME [facility] Last Admin: 10/06/21 21:11 Dose: 100 mg Documented by: Ferrous Sulfate (Ferrous Sulfate 324 Mg Tablet.Dr) 324 mg PO DAILY [facility] Last Admin: 10/07/21 08:17 Dose: 324 mg Documented by: Hydroxyzine HCl (Hydroxyzine Hcl 25 Mg Tablet) 25 mg PO BEDTIME PRN PRN Reason: Anxiety Lorazepam (Lorazepam 0.5 Mg Tablet) 0.5 mg PO Q4H PRN PRN Reason: anxiety, catatonia Last Admin: 10/06/21 21:11 Dose: 0.5 mg Documented by: Losartan Potassium (Losartan Potassium 25 Mg Tablet) 25 mg PO DAILY [facility]; Protocol Last Admin: 10/07/21 08:18 Dose: 25 mg Documented by: Magnesium Hydroxide (Milk Of Magnesia 30 Ml Oral.Susp) 30 ml PO DAILY PRN PRN Reason: Constipation Metformin HCl (Metformin Hcl 1,000 Mg Tablet) 1,000 mg PO BID [facility] Last Admin: 10/07/21 08:18 Dose: 1,000 mg Documented by: Multivitamins/Vitamin C (Multivitamin Tablet) 1 tab PO DAILY [facility] Last Admin: 10/07/21 08:25 Dose: 1 tab Documented by: Non-Formulary Medication (Cinnamon) 1,000 mg PO DAILY [facility] Last Admin: 10/07/21 08:36 Dose: 1,000 mg Documented by: Patient Own Medication ( Empagliflozin 10 Mg) 1 each PO DAILY [facility] Last Admin: 10/07/21 08:36 Dose: 1 each Documented by: Omeprazole (Omeprazole 20 Mg Capsule.) 20 mg PO DAILY@0630 [facility] Last Admin: 10/07/21 08:36 Dose: 20 mg Documented by: Ondansetron HCl (Ondansetron Odt 8 Mg Tab.Rapdis) 8 mg TRANSLINGU Q8H PRN PRN Reason: nausea Trazodone HCl (Trazodone Hcl 50 Mg Tablet) 50 mg PO BEDTIME PRN PRN Reason: Insomnia Vitamin D (Cholecalciferol (Vitamin D3) 10 Mcg Tablet) 10 mcg PO DAILY [facility] Last Admin: 10/07/21 08:18 Dose: 10 mcg Documented by: Allergies Allergies Allergy/AdvReac Type Severity Reaction Status Date / Time lisinopril [LISINOPRIL] Allergy Unknown SWOLLEN Verified 09/17/21 08:42 LIPS, angioedema, swelling Assessment & Plan Assessment & Plan (1) Schizoaffective disorder: Status: Acute Code(s): F25.9 - Schizoaffective disorder, unspecified (2) Invasive ductal carcinoma of right breast: Status: Acute Code(s): C50.911 - Malignant neoplasm of unspecified site of right female breast (3) Hypertension: Qualifiers: Hypertension type: essential hypertension Qualified Code(s): I10 - Essential (primary) hypertension Status: Acute Code(s): I10 - Essential (primary) hypertension (4) Hypercholesterolemia: Status: Acute Code(s): E78.00 - Pure hypercholesterolemia, unspecified (5) Type 2 diabetes mellitus with hyperglycemia: Qualifiers: Diabetes mellitus custodial insulin use: without intermediate card tender use Qualif ied Code(s): E11.65 - Type 2 diabetes mellitus with hyperglycemia Status: Acute Code(s): E11.65 - Type 2 diabetes mellitus with hyperglycemia Assessment and Plan: Continue metformin Jardiance not on formulary monitor point of care (6) GERD (gastroesophageal reflux disease): Qualifiers: Esophagitis presence: without esophagitis Qualified Code(s): K21.9 - Gastro-esophageal reflux disease without esophagitis Status: Acute Code(s): K21.9 - Gastro-esophageal reflux disease without esophagitis Plan 50 yo female, hx of schizoaffective disorder, depressed with R breast cancer, having just completed first cycle of chemotherapy. Pt's partner and sister report to crisis team that pt has had a significant mental status change with psychotic symptoms, paranoia, perceptual alterations, poor sleep and significant thought blocking. Pt denies SI, HI. Today she is a very poor historian-almost pre-catatonic at times, considering signing a three day notice of intent. Team report by history she may not be comfortable in this facility. Assessment plan for 09/21/2021 Continue current medical treatment elevated white blood count noted over the past month question related to cancer treatment. No evidence of infection Patient depressed withdrawn preoccupied patient with recent treatment for ductal carcinoma stress of this might certainly lead to depressive almost catatonic episode 09/22/21 Pt with thought blocking improved from yeterday have restarted wellbutin hosp did not have sr cont clozapine evaluate baseline denies self harm oob more 09/23/21 Continue current plan of care. Collateral contacts with OP team, oncology. 09/24/21 Increase Abilify to 30 mg daily Pt currently refusing Lorazepam TDN expires 09/25/21-will file for civil commitment if pt persists in wanting discharge 09/25/21 Civil commitment filing completed Continue current regime. 09/26/21 Continue current regime 09/27/32 Decrease Abilify to 20 mg daily Risperdal 1.5 mg HS 09/28/21 Continue plan as above 09/29/21 No changes 09/30/21 Court 10/01/21 Chemotherapy 10/01/21 Increase Risperdal to 2.5 mg HS Decrease Abilify to 10 mg daily 10/02/21 Tolerating change back to Abilify from Risperdal Appetite is improved. Calmer, more visable, however continues with paranoia Jardiance ordered from [facility] pharmacy 10/03/21 Increase Abilify to 30 mg daily Will pursue validation of pt's HCP for continued chemotherapy Tentative chemotherapy 10/09. 10/04/21 Continue current regime 10/05 no changes to current regimen 10/06 no changes to current regimen 10/07/21 No positive effect from increase in Abilify Increase Clozaril to 100 mg bid, an increase of 50 mg daily, divided. Chemotherapy 10/09/21, Labs 10/08/21. I spent minutes with the patient and/or on the patient floor today, greater than?50% of which was spent counseling/coordinating care. Patient educated on: diagnosis, medication risk/benefits, therapeutic strategies and other Informed Consent: further education needed Reason for contiued inpatient stay Substantial Risk for: harm to self, inability to function, rapid decompensation and med/psych decompensation
[2021-10-07] MEDS: Atorvastatin Calcium 10 MG TABLET 5 MG PO (20:52)
[2021-10-07] MEDS: Docusate Sodium 100 MG CAPSULE PO (20:53)
[2021-10-07 20:54] VITALS: BP 121/82; PULSE 85; RESP 16; TEMP 35.9; O2SAT 99
[2021-10-08 08:41] LABS: MANUAL DIFF FLAG NO
[2021-10-08 08:48] LABS: Basophils Percent Auto 0.5 % (0-2); Eosinophils Percent Auto 0.2 % (0-4); Hematocrit 42.2 % (37.0-47.0); Hemoglobin 12.9 g/dl (12.0-16.0); Imm Gran Abs Auto 0.02 X10*3/uL (0.00-0.03); Imm Gran Pct Auto 0.2 % (0.0-0.4); Lymphocytes Absolute Auto 1.9 X10*3/uL (1.2-4.9); Lymphocytes Percent Auto 22.4 % (20-40); Mean Corpuscular HGB Conc 30.6 g/dl (31.0-35.0); Mean Corpuscular Volume 98.1 fL (80.0-98.0); Mean Platelet Volume 9.8 fL (9.4-12.3); Monocytes Absolute Auto 0.7 X10*3/uL (0.1-1.2); Monocytes Percent Auto 8.5 % (2-11); Neutrophils Absolute Auto 5.6 x10*3/uL (2.0-8.3); Neutrophils Percent Auto 68.2 % (45-73); Platelet Count 364 X10*3/uL (160-400); White Blood Count 8.3 X10*3/uL (4.8-10.8)
[2021-10-08 09:00] VITALS: BP 126/79; PULSE 93; RESP 18; TEMP 37; O2SAT 98
[2021-10-08] MEDS: metFORMIN HCl 1,000 MG TABLET 1000 MG PO ×2 (09:26→21:15)
[2021-10-08] MEDS: Multivitamin TABLET 1 TAB PO (09:27)
[2021-10-08] MEDS: cloZAPine 100 MG TABLET PO ×2 (09:28→21:16)
[2021-10-08] MEDS: ARIPiprazole 30 MG TABLET PO (09:28)
[2021-10-08] MEDS: cloNIDine HCL 0.1 MG TABLET PO ×3 (09:28→21:15)
[2021-10-08] MEDS: Ascorbic Acid 500 MG TABLET 1000 MG PO (09:29)
[2021-10-08] MEDS: Cholecalciferol (Vitamin D3) 10 MCG TABLET PO (09:29)
[2021-10-08] MEDS: Losartan Potassium 25 MG TABLET PO (09:30)
[2021-10-08] MEDS: Ferrous Sulfate 324 MG TABLET.DR PO (09:31)
[2021-10-08] MEDS: buPROPion HCL 100 MG TABLET PO (09:31)
[2021-10-08] MEDS: Cyanocobalamin (Vitamin B-12) 1,000 MCG TABLET 1000 MCG PO (09:32)
[2021-10-08 09:45] LABS: Alanine Aminotransferase 24 U/L (0-31); Albumin Level 4.1 g/dL (3.5-5.0); Alkaline Phosphatase 139 U/L (39-117); Anion Gap 20 (12-20); Aspartate Amino Transferase 22 U/L (5-31); Bilirubin Total 0.5 mg/dL (0.0-1.0); Blood Urea Nitrogen 8 mg/dL (9-16); Calcium 9.4 mg/dL (8.4-10.2); Carbon Dioxide 20 mmol/L (22-29); Chloride 108 mmol/L (96-108); Creatinine Clr Calc Pharmacy 86.7; Estimated Glomerular Filt Rate > 60; Glucose Random 111 mg/dL (60-115); Potassium 4.5 mmol/L (3.3-5.1); Sodium 143 mmol/L (135-145); Total Protein 6.7 g/dL (6.5-8.0)
--- NOTE | 2021-10-08 16:06 | P.PNPSI_ITS ---
Subjective Subjective Date of Service: 10/08/21 Reason For Visit: Depression paranoia Subjective Notes: Section 8 Healthcare Proxy: Yes (activated for chemotherapy) Guardianship: No Medical Problems Affecting Mental Status: Yes (breast cancer) Interim History: Sabra denies questions/issues to discuss today. As requested she was given a copy of her finance attorney's business card. Clozaril increase beginning today to 100 mg bid-no questions regarding this. Care discussion with Dr. Mora. Pt will need 4 mg dexamethasone tonight and in the a.m to begin Paclitaxel chemotherapy regime on 10/09/21. M5 and partner will accompany her to chemotherapy. Received a call from partner, Kailey. Pt had made contact with her this a.m. and discussed her feeling hopelessness and despair. Discussed with pt that family and team are here to support her healing process and she verbalized acknowledgment of this support. Medication Compliance: Yes Side effects from medications: No Attending Groups: Yes Review of Systems Acute medical concerns: Yes Breast Cancer Chemotherapy, Part II, Treatment I 10/09/21, Paclitaxel. Medical Review of Systems: unchanged Review of Systems Psychiatric: Reports anxiety, Reports depression, Reports hopelessness, Reports anhedonia and Reports paranoia Mental Status Exam Mental Status Exam Patient Appearance: Appropriate Patient Orientation: Person, Place, Time and Situation Level of Consciousness: Alert Patient Behavior: Guarded, Talkative, Suspicious, Anxious, Fearful, Resistive to Care, Distractible, Confused and Good Eye Contact Mood Description: Suspicious, Withdrawn, Depressed, Fearful, Anxious and Nervous Affect Description: Flat Patient Cognition Impaired: No Ability to Follow Directions: Good Speech Pattern: Perseverating, Spontaneous Speech and Soft-Spoken Memory Description: Episodic Impaired Hallucinations: Auditory Delusions: Paranoid Ideation and Present Perceptual Disturbances: Depersonalization and Derealization Thought Process: Illogical, Distracted and Rumination Thought Content: positive for Perseveration and positive for Thought Blocking Depressive Symptoms: Increased Anxiety, Diff. Making Decisions, Difficulty Sleeping, Loss of Int. in Activity, Feelings of Worthlessness, Hopelessness, Unhappiness, Increased Fatigue, Loss of Energy and Difficulty Concentrating Judgement: Poor Diagnostics Vital Signs (24Hr): Vital Signs - 24 hr 10/07/21 20:54 10/08/21 09:00 Temperature 96.6 F L 98.6 F Pulse Rate 85 93 Respiratory Rate 16 18 Blood Pressure 121/82 126/79 Pulse Oximetry 99 98 BMI result Body Mass Index 35.6 Labs Results: 10/08/21 08:29 10/08/21 08:29 Labs: Laboratory Results - last 48 hr 10/06/21 10/08/21 10/08/21 18:11 08:29 08:29 WBC 8.3 RBC 4.30 Hgb 12.9 Hct 42.2 MCV 98.1 H MCH 30.0 MCHC 30.6 L RDW 16.0 Plt Count 364 D MPV 9.8 Immature Gran % (Auto) 0.2 Neut % (Auto) 68.2 Lymph % (Auto) 22.4 [place] % (Auto) 8.5 Eos % (Auto) 0.2 Baso % (Auto) 0.5 Lymph # (Auto) 1.9 [place] # (Auto) 0.7 Eos # (Auto) 0.0 Baso # (Auto) 0.0 Abs Immat Gran (auto) 0.02 Absolute Neuts (auto) 5.6 Absolute Nucleated RBC 0.000 Nucleated RBC % (auto) 0.0 Sodium 139 143 Potassium 4.7 4.5 Chloride 106 108 Carbon Dioxide 21 L 20 L Anion Gap 17 20 BUN 11 8 L Creatinine 0.77 0.76 Estim Creat Clear Calc 85.5 86.7 Estimated GFR > 60 > 60 Random Glucose 120 H 111 Calcium 9.8 9.4 Total Bilirubin 0.5 AST 22 D ALT 24 Alkaline Phosphatase 139 H Total Protein 6.7 Albumin 4.1 Medications Medications Current Medications Acetaminophen (Acetaminophen 325 Mg Tablet) 650 mg PO Q6H PRN PRN Reason: Headache/Pain Mild Scale (1-3) Al Hydroxide/Mg Hydroxide (Magnesium Hydrox/Alum Hydrox 30 Ml Oral.Susp) 30 ml PO Q6H PRN PRN Reason: Heartburn/Nausea Last Admin: 10/02/21 14:41 Dose: 30 ml Documented by: Aripiprazole (Aripiprazole 30 Mg Tablet) 30 mg PO DAILY [facility] Last Admin: 10/08/21 09:28 Dose: 30 mg Documented by: Ascorbic Acid (Ascorbic Acid 500 Mg Tablet) 1,000 mg PO DAILY [facility] Last Admin: 10/08/21 09:29 Dose: 1,000 mg Documented by: Atorvastatin Calcium (Atorvastatin Calcium 10 Mg Tablet) 5 mg PO BEDTIME [facility] Last Admin: 10/07/21 20:52 Dose: 5 mg Documented by: Bupropion HCl (Bupropion Hcl 100 Mg Tablet) 100 mg PO DAILY [facility] Last Admin: 10/08/21 09:31 Dose: 100 mg Documented by: Clonidine HCl (Clonidine Hcl 0.1 Mg Tablet) 0.1 mg PO TID [facility]; Protocol Last Admin: 10/08/21 15:26 Dose: 0.1 mg Documented by: Clozapine (Clozapine 100 Mg Tablet) 100 mg PO BID [facility] Last Admin: 10/08/21 09:28 Dose: 100 mg Documented by: Cyanocobalamin (Cyanocobalamin (Vitamin B-12) 1,000 Mcg Tablet) 1,000 mcg PO DAILY [facility] Last Admin: 10/08/21 09:32 Dose: 1,000 mcg Documented by: Dexamethasone (Dexamethasone 4 Mg Tablet) 4 mg PO BEDTIME ONE Stop: 10/08/21 21:01 Dexamethasone (Dexamethasone 4 Mg Tablet) 4 mg PO DAILY ONE Stop: 10/09/21 08:01 Docusate Sodium (Docusate Sodium 100 Mg Capsule) 100 mg PO BEDTIME [facility] Last Admin: 10/07/21 20:53 Dose: 100 mg Documented by: Ferrous Sulfate (Ferrous Sulfate 324 Mg Tablet.) 324 mg PO DAILY [facility] Last Admin: 10/08/21 09:31 Dose: 324 mg Documented by: Hydroxyzine HCl (Hydroxyzine Hcl 25 Mg Tablet) 25 mg PO BEDTIME PRN PRN Reason: Anxiety Lorazepam (Lorazepam 0.5 Mg Tablet) 0.5 mg PO Q4H PRN PRN Reason: anxiety, catatonia Last Admin: 10/06/21 21:11 Dose: 0.5 mg Documented by: Losartan Potassium (Losartan Potassium 25 Mg Tablet) 25 mg PO DAILY [facility]; Protocol Last Admin: 10/08/21 09:30 Dose: 25 mg Documented by: Magnesium Hydroxide (Milk Of Magnesia 30 Ml Oral.Susp) 30 ml PO DAILY PRN PRN Reason: Constipation Metformin HCl (Metformin Hcl 1,000 Mg Tablet) 1,000 mg PO BID [facility] Last Admin: 10/08/21 09:26 Dose: 1,000 mg Documented by: Multivitamins/Vitamin C (Multivitamin Tablet) 1 tab PO DAILY [facility] Last Admin: 10/08/21 09:27 Dose: 1 tab Documented by: Non-Formulary Medication (Cinnamon) 1,000 mg PO DAILY [facility] Last Admin: 10/08/21 09:32 Dose: 1,000 mg Documented by: Patient Own Medication ( Empagliflozin 10 Mg) 1 each PO DAILY [facility] Last Admin: 10/08/21 09:32 Dose: 1 each Documented by: Omeprazole (Omeprazole 20 Mg Capsule.Dr) 20 mg PO DAILY@0630 [facility] Last Admin: 10/08/21 06:29 Dose: Not Given Documented by: Ondansetron HCl (Ondansetron Odt 8 Mg Tab.Rapdis) 8 mg TRANSLINGU Q8H PRN PRN Reason: nausea Trazodone HCl (Trazodone Hcl 50 Mg Tablet) 50 mg PO BEDTIME PRN PRN Reason: Insomnia Vitamin D (Cholecalciferol (Vitamin D3) 10 Mcg Tablet) 10 mcg PO DAILY [facility] Last Admin: 10/08/21 09:29 Dose: 10 mcg Documented by: Allergies Allergies Allergy/AdvReac Type Severity Reaction Status Date / Time lisinopril [LISINOPRIL] Allergy Unknown SWOLLEN Verified 09/17/21 08:42 LIPS, angioedema, swelling Assessment & Plan Assessment & Plan (1) Schizoaffective disorder: Status: Acute Code(s): F25.9 - Schizoaffective disorder, unspecified (2) Invasive ductal carcinoma of right breast: Status: Acute Code(s): C50.911 - Malignant neoplasm of unspecified site of right female breast (3) Hypertension: Qualifiers: Hypertension type: essential hypertension Qualified Code(s): I10 - Essential (primary) hypertension Status: Acute Code(s): I10 - Essential (primary) hypertension (4) Hypercholesterolemia: Status: Acute Code(s): E78.00 - Pure hypercholesterolemia, unspecified (5) Type 2 diabetes mellitus with hyperglycemia: Qualifiers: Diabetes mellitus residential insulin use: without residential use Qualified Code(s): E11.65 - Type 2 diabetes mellitus with hyperglycemia Status: Acute Code(s): E11.65 - Type 2 diabetes mellitus with hyperglycemia Assessment and Plan: Continue metformin Jardiance not on formulary monitor point of care (6) GERD (gastroesophageal reflux disease): Qualifiers: Esophagitis presence: without esophagitis Qualified Code(s): K21.9 - Gastro-esophageal reflux disease without esophagitis Status: Acute Code(s): K21.9 - Gastro-esophageal reflux disease without esophagitis Plan 50 yo female, hx of schizoaffective disorder, depressed with R breast cancer, having just completed first cycle of chemotherapy. Pt's partner and sister report to crisis team that pt has had a significant mental status change with psychotic symptoms, paranoia, perceptual alterations, poor sleep and significant thought blocking. Pt denies SI, HI. Today she is a very poor historian-almost pre-catatonic at times, considering signing a three day notice of intent. Team report by history she may not be comfortable in this facility. Assessment plan for 09/21/2021 Continue current medical treatment elevated white blood count noted over the past month question related to cancer treatment. No evidence of infection Patient depressed withdrawn preoccupied patient with recent treatment for ductal carcinoma stress of this might certainly lead to depressive almost catatonic episode 09/22/21 Pt with thought blocking improved from yeterday have restarted wellbutin hosp did not have sr cont clozapine evaluate baseline denies self harm oob more 09/23/21 Continue current plan of care. Collateral contacts with OP team, oncology. 09/24/21 Increase Abilify to 30 mg daily Pt currently refusing Lorazepam TDN expires 09/25/21-will file for civil commitment if pt persists in wanting discharge 09/25/21 Civil commitment filing completed Continue current regime. 09/26/21 Continue current regime 09/27/32 Decrease Abilify to 20 mg daily Risperdal 1.5 mg HS 09/28/21 Continue plan as above 09/29/21 No changes 09/30/21 Court 10/01/21 Chemotherapy 10/01/21 Increase Risperdal to 2.5 mg HS Decrease Abilify to 10 mg daily 10/02/21 Tolerating change back to Abilify from Risperdal Appetite is improved. Calmer, more visable, however continues with paranoia Jardiance ordered from [facility] 10/03/21 Increase Abilify to 30 mg daily Will pursue validation of pt's HCP for continued chemotherapy Tentative chemotherapy 10/09. 10/04/21 Continue current regime 10/05 no changes to current regimen 10/06 no changes to current regimen 10/07/21 No positive effect from increase in Abilify Increase Clozaril to 100 mg bid, an increase of 50 mg daily, divided. Chemotherapy 10/09/21, Labs 10/08/21. 10/08/21 Tolerating Clozaril increase thus far Dexamethasone 4 mg hs and 4 mg a.m. pre chemo per Dr. Mora Support, encourage I spent minutes with the patient and/or on the patient floor today, greater than?50% of which was spent counseling/coordinating care. Patient educated on: medication risk/benefits and therapeutic strategies Informed Consent: further education needed Reason for contiued inpatient stay Substantial Risk for: harm to self, inability to function, rapid decompensation and med/psych decompensation
[2021-10-08 20:40] VITALS: BP 105/86; PULSE 120; TEMP 35.8
[2021-10-08] MEDS: Atorvastatin Calcium 10 MG TABLET 5 MG PO (21:16)
[2021-10-08] MEDS: Docusate Sodium 100 MG CAPSULE PO (21:16)
[2021-10-08] MEDS: dexAMETHasone 4 MG TABLET PO (21:23)
[2021-10-09] MEDS: Multivitamin TABLET 1 TAB PO (08:25)
[2021-10-09] MEDS: Cholecalciferol (Vitamin D3) 10 MCG TABLET PO (08:25)
[2021-10-09] MEDS: metFORMIN HCl 1,000 MG TABLET 1000 MG PO ×2 (08:25→21:35)
[2021-10-09] MEDS: Omeprazole 20 MG CAPSULE.DR PO (08:25)
[2021-10-09] MEDS: Losartan Potassium 25 MG TABLET PO (08:25)
[2021-10-09] MEDS: Ascorbic Acid 500 MG TABLET 1000 MG PO (08:26)
[2021-10-09] MEDS: cloZAPine 100 MG TABLET PO ×2 (08:26→21:35)
[2021-10-09] MEDS: ARIPiprazole 30 MG TABLET PO (08:26)
[2021-10-09] MEDS: cloNIDine HCL 0.1 MG TABLET PO ×3 (08:26→21:35)
[2021-10-09] MEDS: buPROPion HCL 100 MG TABLET PO (08:26)
[2021-10-09] MEDS: Ferrous Sulfate 324 MG TABLET.DR PO (08:26)
[2021-10-09] MEDS: dexAMETHasone 4 MG TABLET PO (08:26)
[2021-10-09] MEDS: Cyanocobalamin (Vitamin B-12) 1,000 MCG TABLET 1000 MCG PO (08:26)
[2021-10-09 08:33] VITALS: BP 128/72; PULSE 101; RESP 16; TEMP 36.4; O2SAT 100
[2021-10-09 14:13] VITALS: BP 135/85; PULSE 129; RESP 16
--- NOTE | 2021-10-09 16:59 | HO.PSYCHPN ---
Subjective Subjective Date of Service: 10/09/21 Reason For Visit: Depression paranoia Subjective Notes: Section 8 Healthcare Proxy: Yes Guardianship: No Medical Problems Affecting Mental Status: No Interim History: Sabra started her second phase of chemotherapy today with Paclitaxel (Taxol). Team and partner attended the session with her. She was visable on the unit after the treatment, interacting, asking questions and participating. Medication Compliance: Yes (not using omeprazole) Side effects from medications: No Attending Groups: Intermittent Review of Systems Acute medical concerns: Yes treatment for breast cancer Medical Review of Systems: unchanged Review of Systems Psychiatric: Reports anxiety, Reports depression, Reports hopelessness, Reports anhedonia and Reports paranoia Mental Status Exam Mental Status Exam Patient Appearance: Appropriate Patient Orientation: Person, Place, Time and Situation Level of Consciousness: Alert Patient Behavior: Guarded, Talkative, Suspicious, Anxious, Fearful, Resistive to Care, Distractible, Confused and Good Eye Contact Mood Description: Suspicious, Withdrawn, Depressed, Fearful, Anxious and Nervous Affect Description: Flat Patient Cognition Impaired: No Ability to Follow Directions: Good Speech Pattern: Perseverating, Spontaneous Speech and Soft-Spoken Memory Description: Episodic Impaired Hallucinations: Auditory Delusions: Paranoid Ideation and Present Perceptual Disturbances: Depersonalization and Derealization Thought Process: Illogical, Distracted and Rumination Thought Content: positive for Perseveration and positive for Thought Blocking Depressive Symptoms: Increased Anxiety, Diff. Making Decisions, Difficulty Sleeping, Loss of Int. in Activity, Feelings of Worthlessness, Hopelessness, Unhappiness, Increased Fatigue, Loss of Energy and Difficulty Concentrating Judgement: Poor Diagnostics Vital Signs (24Hr): Vital Signs - 24 hr 10/08/21 20:40 10/09/21 08:33 10/09/21 14:13 Temperature 96.4 F L 97.6 F Pulse Rate 120 H 101 H 129 H Respiratory Rate 16 16 Blood Pressure 105/86 128/72 135/85 Pulse Oximetry 100 BMI result Body Mass Index 35.6 Labs Results: 10/08/21 08:29 10/08/21 08:29 Labs: Laboratory Results - last 48 hr 10/08/21 10/08/21 08:29 08:29 WBC 8.3 RBC 4.30 Hgb 12.9 Hct 42.2 MCV 98.1 H MCH 30.0 MCHC 30.6 L RDW 16.0 Plt Count 364 D MPV 9.8 Immature Gran % (Auto) 0.2 Neut % (Auto) 68.2 Lymph % (Auto) 22.4 [place] % (Auto) 8.5 Eos % (Auto) 0.2 Baso % (Auto) 0.5 Lymph # (Auto) 1.9 [place] # (Auto) 0.7 Eos # (Auto) 0.0 Baso # (Auto) 0.0 Abs Immat Gran (auto) 0.02 Absolute Neuts (auto) 5.6 Absolute Nucleated RBC 0.000 Nucleated RBC % (auto) 0.0 Sodium 143 Potassium 4.5 Chloride 108 Carbon Dioxide 20 L Anion Gap 20 BUN 8 L Creatinine 0.76 Estim Creat Clear Calc 86.7 Estimated GFR > 60 Random Glucose 111 Calcium 9.4 Total Bilirubin 0.5 AST 22 D ALT 24 Alkaline Phosphatase 139 H Total Protein 6.7 Albumin 4.1 Medications Medications Current Medications Acetaminophen (Acetaminophen 325 Mg Tablet) 650 mg PO Q6H PRN PRN Reason: Headache/Pain Mild Scale (1-3) Al Hydroxide/Mg Hydroxide (Magnesium Hydrox/Alum Hydrox 30 Ml Oral.Susp) 30 ml PO Q6H PRN PRN Reason: Heartburn/Nausea Last Admin: 10/02/21 14:41 Dose: 30 ml Documented by: Aripiprazole (Aripiprazole 30 Mg Tablet) 30 mg PO DAILY [facility] Last Admin: 10/09/21 08:26 Dose: 30 mg Documented by: Ascorbic Acid (Ascorbic Acid 500 Mg Tablet) 1,000 mg PO DAILY [facility] Last Admin: 10/09/21 08:26 Dose: 1,000 mg Documented by: Atorvastatin Calcium (Atorvastatin Calcium 10 Mg Tablet) 5 mg PO BEDTIME [facility] Last Admin: 10/08/21 21:16 Dose: 5 mg Documented by: Bupropion HCl (Bupropion Hcl 100 Mg Tablet) 100 mg PO DAILY [facility] Last Admin: 10/09/21 08:26 Dose: 100 mg Documented by: Clonidine HCl (Clonidine Hcl 0.1 Mg Tablet) 0.1 mg PO TID [facility]; Protocol Last Admin: 10/09/21 14:05 Dose: 0.1 mg Documented by: Clotrimazole (Clotrimazole 1 % Vaginal Cream 45 Gm Tube) 1 appl VAGINAL BEDTIME [facility] Stop: 10/15/21 21:01 Clozapine (Clozapine 100 Mg Tablet) 100 mg PO BID [facility] Last Admin: 10/09/21 08:26 Dose: 100 mg Documented by: Cyanocobalamin (Cyanocobalamin (Vitamin B-12) 1,000 Mcg Tablet) 1,000 mcg PO DAILY [facility] Last Admin: 10/09/21 08:26 Dose: 1,000 mcg Documented by: Dexamethasone (Dexamethasone 4 Mg Tablet) 8 mg PO Tu@0800 [facility] Docusate Sodium (Docusate Sodium 100 Mg Capsule) 100 mg PO BEDTIME [facility] Last Admin: 10/08/21 21:16 Dose: 100 mg Documented by: Ferrous Sulfate (Ferrous Sulfate 324 Mg Tablet.) 324 mg PO DAILY [facility] Last Admin: 10/09/21 08:26 Dose: 324 mg Documented by: Hydroxyzine HCl (Hydroxyzine Hcl 25 Mg Tablet) 25 mg PO BEDTIME PRN PRN Reason: Anxiety Lorazepam (Lorazepam 0.5 Mg Tablet) 0.5 mg PO Q4H PRN PRN Reason: anxiety, catatonia Last Admin: 10/06/21 21:11 Dose: 0.5 mg Documented by: Losartan Potassium (Losartan Potassium 25 Mg Tablet) 25 mg PO DAILY [facility]; Protocol Last Admin: 10/09/21 08:25 Dose: 25 mg Documented by: Magnesium Hydroxide (Milk Of Magnesia 30 Ml Oral.Susp) 30 ml PO DAILY PRN PRN Reason: Constipation Metformin HCl (Metformin Hcl 1,000 Mg Tablet) 1,000 mg PO BID [facility] Last Admin: 10/09/21 08:25 Dose: 1,000 mg Documented by: Multivitamins/Vitamin C (Multivitamin Tablet) 1 tab PO DAILY [facility] Last Admin: 10/09/21 08:25 Dose: 1 tab Documented by: Non-Formulary Medication (Cinnamon) 1,000 mg PO DAILY [facility] Last Admin: 10/09/21 08:34 Dose: 1,000 mg Documented by: Patient Own Medication ( Empagliflozin 10 Mg) 1 each PO DAILY [facility] Last Admin: 10/09/21 08:34 Dose: 1 each Documented by: Omeprazole (Omeprazole 20 Mg Capsule.) 20 mg PO DAILY@0630 [facility] Last Admin: 10/09/21 08:25 Dose: 20 mg Documented by: Ondansetron HCl (Ondansetron Odt 8 Mg Tab.Rapdis) 8 mg TRANSLINGU Q8H PRN PRN Reason: nausea Trazodone HCl (Trazodone Hcl 50 Mg Tablet) 50 mg PO BEDTIME PRN PRN Reason: Insomnia Vitamin D (Cholecalciferol (Vitamin D3) 10 Mcg Tablet) 10 mcg PO DAILY [facility] Last Admin: 10/09/21 08:25 Dose: 10 mcg Documented by: Allergies Allergies Allergy/AdvReac Type Severity Reaction Status Date / Time lisinopril [LISINOPRIL] Allergy Unknown SWOLLEN Verified 09/17/21 08:42 LIPS, angioedema, swelling Assessment & Plan Assessment & Plan (1) Schizoaffective disorder: Status: Acute Code(s): F25.9 - Schizoaffective disorder, unspecified (2) Invasive ductal carcinoma of right breast: Status: Acute Code(s): C50.911 - Malignant neoplasm of unspecified site of right female breast (3) Hypertension: Qualifiers: Hypertension type: essential hypertension Qualified Code(s): I10 - Essential (primary) hypertension Status: Acute Code(s): I10 - Essential (primary) hypertension (4) Hypercholesterolemia: Status: Acute Code(s): E78.00 - Pure hypercholesterolemia, unspecified (5) Type 2 diabetes mellitus with hyperglycemia: Qualifiers: Diabetes mellitus termite inspector insulin use: without custodial use Qualified Code(s): E11.65 - Type 2 diabetes mellitus with hyperglycemia Status: Acute Code(s): E11.65 - Type 2 diabetes mellitus with hyperglycemia Assessment and Plan: Continue metformin Jardiance not on formulary monitor point of care (6) GERD (gastroesophageal reflux disease): Qualifiers: Esophagitis presence: without esophagitis Qualified Code(s): K21.9 - Gastro-esophageal reflux disease without esophagitis Status: Acute Code(s): K21.9 - Gastro-esophageal reflux disease without esophagitis Plan 50 yo female, hx of schizoaffective disorder, depressed with R breast cancer, having just completed first cycle of chemotherapy. Pt's partner and sister report to crisis team that pt has had a significant mental status change with psychotic symptoms, paranoia, perceptual alterations, poor sleep and significant thought blocking. Pt denies SI, HI. Today she is a very poor historian-almost pre-catatonic at times, considering signing a three day notice of intent. Team report by history she may not be comfortable in this facility. Assessment plan for 09/21/2021 Continue current medical treatment elevated white blood count noted over the past month question related to cancer treatment. No evidence of infection Patient depressed withdrawn preoccupied patient with recent treatment for ductal carcinoma stress of this might certainly lead to depressive almost catatonic episode 09/22/21 Pt with thought blocking improved from yeterday have restarted wellbutin hosp did not have sr cont clozapine evaluate baseline denies self harm oob more 09/23/21 Continue current plan of care. Collateral contacts with OP team, oncology. 09/24/21 Increase Abilify to 30 mg daily Pt currently refusing Lorazepam TDN expires 09/25/21-will file for civil commitment if pt persists in wanting discharge 09/25/21 Civil commitment filing completed Continue current regime. 09/26/21 Continue current regime 09/27/32 Decrease Abilify to 20 mg daily Risperdal 1.5 mg HS 09/28/21 Continue plan as above 09/29/21 No changes 09/30/21 Court 10/01/21 Chemotherapy 10/01/21 Increase Risperdal to 2.5 mg HS Decrease Abilify to 10 mg daily 10/02/21 Tolerating change back to Abilify from Risperdal Appetite is improved. Calmer, more visable, however continues with paranoia Jardiance ordered from [facility] 10/03/21 Increase Abilify to 30 mg daily Will pursue validation of pt's HCP for continued chemotherapy Tentative chemotherapy 10/09. 10/04/21 Continue current regime 10/05 no changes to current regimen 10/06 no changes to current regimen 10/07/21 No positive effect from increase in Abilify Increase Clozaril to 100 mg bid, an increase of 50 mg daily, divided. Chemotherapy 10/09/21, Labs 10/08/21. 10/08/21 Tolerating Clozaril increase thus far Dexamethasone 4 mg hs and 4 mg a.m. pre chemo per Dr. Mora Support, encourage 10/09/21 Continue current plan of care I spent minutes with the patient and/or on the patient floor today, greater than?50% of which was spent counseling/coordinating care. Informed Consent: further education needed Reason for contiued inpatient stay Substantial Risk for: harm to self, inability to function and rapid decompensation
[2021-10-09 18:00] VITALS: BP 134/84; PULSE 110; RESP 16; TEMP 36.1
[2021-10-09] MEDS: Atorvastatin Calcium 10 MG TABLET 5 MG PO (21:35)
[2021-10-09] MEDS: Docusate Sodium 100 MG CAPSULE PO (21:35)
[2021-10-09] MEDS: Clotrimazole 1 % Vaginal Cream 45 GM TUBE 1 APPL VAGINAL (21:41)
[2021-10-10] MEDS: Omeprazole 20 MG CAPSULE.DR PO (06:18)
[2021-10-10 06:20] LABS: Glucose, Whole Blood 120 mg/dL (60-115)
[2021-10-10 07:00] VITALS: BMI 31.6
[2021-10-10] MEDS: ARIPiprazole 30 MG TABLET PO (08:19)
[2021-10-10] MEDS: cloNIDine HCL 0.1 MG TABLET PO ×3 (08:19→20:28)
[2021-10-10] MEDS: Cyanocobalamin (Vitamin B-12) 1,000 MCG TABLET 1000 MCG PO (08:19)
[2021-10-10] MEDS: Losartan Potassium 25 MG TABLET PO (08:19)
[2021-10-10] MEDS: Ascorbic Acid 500 MG TABLET 1000 MG PO (08:19)
[2021-10-10] MEDS: metFORMIN HCl 1,000 MG TABLET 1000 MG PO ×2 (08:20→20:29)
[2021-10-10] MEDS: Ferrous Sulfate 324 MG TABLET.DR PO (08:20)
[2021-10-10] MEDS: Cholecalciferol (Vitamin D3) 10 MCG TABLET PO (08:20)
[2021-10-10] MEDS: cloZAPine 100 MG TABLET PO ×2 (08:20→20:57)
[2021-10-10] MEDS: Multivitamin TABLET 1 TAB PO (08:20)
[2021-10-10] MEDS: buPROPion HCL 100 MG TABLET PO (08:20)
[2021-10-10 08:30] VITALS: BP 116/70; PULSE 97; RESP 16; TEMP 36.7; O2SAT 98
--- NOTE | 2021-10-10 13:37 | P.PNPSI_ITS ---
Subjective Subjective Date of Service: 10/10/21 Reason For Visit: Depression paranoia Subjective Notes: Section 8 Healthcare Proxy: Yes Guardianship: No Medical Problems Affecting Mental Status: No Interim History: Sabra is more organized and verbal today. She attended her HCP validation hear ing this morning and was anxious. She comments that is was fast and verbalized understanding of the process. Discussed her fears/worries today. She continues to report that she fears fpc sentence as she is making up symptoms. This was reviewed and reassurance was attempted. She reports feeling well, asks if she will every go home-again reassurance was attempted. Reviewed her medicines, no questions today. Tolerating increase dosage of Clozapine. Medication Compliance: Yes Side effects from medications: No Attending Groups: Yes Review of Systems Acute medical concerns: No Medical Review of Systems: unchanged Review of Systems Reports confusion Psychiatric: Reports anxiety, Reports confusion, Reports depression, Reports hopelessness, Reports anhedonia, Reports paranoia and Reports suicidal ideation (denies) Mental Status Exam Mental Status Exam Patient Appearance: Appropriate Patient Orientation: Person, Place, Time and Situation Level of Consciousness: Alert Patient Behavior: Talkative and Good Eye Contact Mood Description: Anxious and Apprehensive Affect Description: Anxious and Apprehensive Patient Cognition Impaired: No Ability to Follow Directions: Good Speech Pattern: Spontaneous Speech Memory Description: Episodic Impaired Delusions: Paranoid Ideation Perceptual Disturbances: Depersonalization and Derealization Thought Process: Distracted and Rumination Thought Content: positive for Circumstantial and positive for Suicidal Ideation (denies) Depressive Symptoms: Increased Anxiety Judgement: Poor Diagnostics Vital Signs (24Hr): Vital Signs - 24 hr 10/09/21 14:13 10/09/21 18:00 10/10/21 08:30 Temperature 97 F 98.1 F Pulse Rate 129 H 110 H 97 Respiratory Rate 16 16 16 Blood Pressure 135/85 134/84 116/70 Pulse Oximetry 98 BMI result Body Mass Index 31.6 Labs Results: 10/08/21 08:29 10/08/21 08:29 Labs: Laboratory Results - last 48 hr 10/10/21 06:14 POC Glucose 120 H Medications Medications Current Medications Acetaminophen (Acetaminophen 325 Mg Tablet) 650 mg PO Q6H PRN PRN Reason: Headache/Pain Mild Scale (1-3) Al Hydroxide/Mg Hydroxide (Magnesium Hydrox/Alum Hydrox 30 Ml Oral.Susp) 30 ml PO Q6H PRN PRN Reason: Heartburn/Nausea Last Admin: 10/02/21 14:41 Dose: 30 ml Documented by: Aripiprazole (Aripiprazole 30 Mg Tablet) 30 mg PO DAILY [facility] Last Admin: 10/10/21 08:19 Dose: 30 mg Documented by: Ascorbic Acid (Ascorbic Acid 500 Mg Tablet) 1,000 mg PO DAILY [facility] Last Admin: 10/10/21 08:19 Dose: 1,000 mg Documented by: Atorvastatin Calcium (Atorvastatin Calcium 10 Mg Tablet) 5 mg PO BEDTIME [facility] Last Admin: 10/09/21 21:35 Dose: 5 mg Documented by: Bupropion HCl (Bupropion Hcl 100 Mg Tablet) 100 mg PO DAILY [facility] Last Admin: 10/10/21 08:20 Dose: 100 mg Documented by: Clonidine HCl (Clonidine Hcl 0.1 Mg Tablet) 0.1 mg PO TID [facility]; Protocol Last Admin: 10/10/21 08:19 Dose: 0.1 mg Documented by: Clotrimazole (Clotrimazole 1 % Vaginal Cream 45 Gm Tube) 1 appl VAGINAL BEDTIME [facility] Stop: 10/15/21 21:01 Last Admin: 10/09/21 21:41 Dose: 1 appl Documented by: Clozapine (Clozapine 100 Mg Tablet) 100 mg PO BID [facility] Last Admin: 10/10/21 08:20 Dose: 100 mg Documented by: Cyanocobalamin (Cyanocobalamin (Vitamin B-12) 1,000 Mcg Tablet) 1,000 mcg PO DAILY [facility] Last Admin: 10/10/21 08:19 Dose: 1,000 mcg Documented by: Dexamethasone (Dexamethasone 4 Mg Tablet) 8 mg PO Tu@0800 [facility] Docusate Sodium (Docusate Sodium 100 Mg Capsule) 100 mg PO BEDTIME [facility] Last Admin: 10/09/21 21:35 Dose: 100 mg Documented by: Ferrous Sulfate (Ferrous Sulfate 324 Mg Tablet.Dr) 324 mg PO DAILY [facility] Last Admin: 10/10/21 08:20 Dose: 324 mg Documented by: Hydroxyzine HCl (Hydroxyzine Hcl 25 Mg Tablet) 25 mg PO BEDTIME PRN PRN Reason: Anxiety Lorazepam (Lorazepam 0.5 Mg Tablet) 0.5 mg PO Q4H PRN PRN Reason: anxiety, catatonia Last Admin: 10/06/21 21:11 Dose: 0.5 mg Documented by: Losartan Potassium (Losartan Potassium 25 Mg Tablet) 25 mg PO DAILY [facility]; Protocol Last Admin: 10/10/21 08:19 Dose: 25 mg Documented by: Magnesium Hydroxide (Milk Of Magnesia 30 Ml Oral.Susp) 30 ml PO DAILY PRN PRN Reason: Constipation Metformin HCl (Metformin Hcl 1,000 Mg Tablet) 1,000 mg PO BID [facility] Last Admin: 10/10/21 08:20 Dose: 1,000 mg Documented by: Multivitamins/Vitamin C (Multivitamin Tablet) 1 tab PO DAILY [facility] Last Admin: 10/10/21 08:20 Dose: 1 tab Documented by: Non-Formulary Medication (Cinnamon) 1,000 mg PO DAILY [facility] Last Admin: 10/10/21 08:19 Dose: 1,000 mg Documented by: Patient Own Medication ( Empagliflozin 10 Mg) 1 each PO DAILY [facility] Last Admin: 10/10/21 08:19 Dose: 1 each Documented by: Omeprazole (Omeprazole 20 Mg Capsule.Dr) 20 mg PO DAILY@0630 [facility] Last Admin: 10/10/21 06:18 Dose: 20 mg Documented by: Ondansetron HCl (Ondansetron Odt 8 Mg Tab.Rapdis) 8 mg TRANSLINGU Q8H PRN PRN Reason: nausea Trazodone HCl (Trazodone Hcl 50 Mg Tablet) 50 mg PO BEDTIME PRN PRN Reason: Insomnia Vitamin D (Cholecalciferol (Vitamin D3) 10 Mcg Tablet) 10 mcg PO DAILY [facility] Last Admin: 10/10/21 08:20 Dose: 10 mcg Documented by: Allergies Allergies Allergy/AdvReac Type Severity Reaction Status Date / Time lisinopril [LISINOPRIL] Allergy Unknown SWOLLEN Verified 09/17/21 08:42 LIPS, angioedema, swelling Assessment & Plan Assessment & Plan (1) Schizoaffective disorder: Status: Acute Code(s): F25.9 - Schizoaffective disorder, unspecified (2) Invasive ductal carcinoma of right breast: Status: Acute Code(s): C50.911 - Malignant neoplasm of unspecified site of right female breast (3) Hypertension: Qualifiers: Hypertension type: essential hypertension Qualified Code(s): I10 - Essential (primary) hypertension Status: Acute Code(s): I10 - Essential (primary) hypertension (4) Hypercholesterolemia: Status: Acute Code(s): E78.00 - Pure hypercholesterolemia, unspecified (5) Type 2 diabetes mellitus with hyperglycemia: Qualifiers: Diabetes mellitus penitentiary insulin use: without exterminator helper termite use Qualified Code(s): E11.65 - Type 2 diabetes mellitus with hyperglycemia Status: Acute Code(s): E11.65 - Type 2 diabetes mellitus with hyperglycemia Assessment and Plan: Continue metformin Jardiance not on formulary monitor point of care (6) GERD (gastroesophageal reflux disease): Qualifiers: Esophagitis presence: without esophagitis Qualified Code(s): K21.9 - Gastro-esophageal reflux disease without esophagitis Status: Acute Code(s): K21.9 - Gastro-esophageal reflux disease without esophagitis Plan 50 yo female, hx of schizoaffective disorder, depressed with R breast cancer, having just completed first cycle of chemotherapy. Pt's partner and sister report to crisis team that pt has had a significant mental status change with psychotic symptoms, paranoia, perceptual alterations, poor sleep and significant thought blocking. Pt denies SI, HI. Today she is a very poor historian-almost pre-catatonic at times, considering signing a three day notice of intent. Team report by history she may not be comfortable in this facility. Assessment plan for 09/21/2021 Continue current medical treatment elevated white blood count noted over the past month question related to cancer treatment. No evidence of infection Patient depressed withdrawn preoccupied patient with recent treatment for ductal carcinoma stress of this might certainly lead to depressive almost catatonic episode 09/22/21 Pt with thought blocking improved from yeterday have restarted wellbutin hosp did not have sr cont clozapine evaluate baseline denies self harm oob more 09/23/21 Continue current plan of care. Collateral contacts with OP team, oncology. 09/24/21 Increase Abilify to 30 mg daily Pt currently refusing Lorazepam TDN expires 09/25/21-will file for civil commitment if pt persists in wanting discharge 09/25/21 Civil commitment filing completed Continue current regime. 09/26/21 Continue current regime 09/27/32 Decrease Abilify to 20 mg daily Risperdal 1.5 mg HS 09/28/21 Continue plan as above 09/29/21 No changes 09/30/21 Court 10/01/21 Chemotherapy 10/01/21 Increase Risperdal to 2.5 mg HS Decrease Abilify to 10 mg daily 10/02/21 Tolerating change back to Abilify from Risperdal Appetite is improved. Calmer, more visable, however continues with paranoia Jardiance ordered from [place] [facility] 10/03/21 Increase Abilify to 30 mg daily Will pursue validation of pt's HCP for continued chemotherapy Tentative chemotherapy 10/09. 10/04/21 Continue current regime 10/05 no changes to current regimen 10/06 no changes to current regimen 10/07/21 No positive effect from increase in Abilify Increase Clozaril to 100 mg bid, an increase of 50 mg daily, divided. Chemotherapy 10/09/21, Labs 10/08/21. 10/08/21 Tolerating Clozaril increase thus far Dexamethasone 4 mg hs and 4 mg a.m. pre chemo per Dr. Mora Support, encourage 10/09/21 Continue current plan of care 10/10/21 Continue current plan of care I spent minutes with the patient and/or on the patient floor today, greater than?50% of which was spent counseling/coordinating care. Patient educated on: medication risk/benefits, therapeutic strategies and other Informed Consent: further education needed Reason for contiued inpatient stay Substantial Risk for: harm to self, inability to function and rapid decompensation
[2021-10-10 15:00] VITALS: BP 119/60; PULSE 110
[2021-10-10 20:27] VITALS: BP 132/72; PULSE 99; RESP 18; TEMP 36.3
[2021-10-10] MEDS: Atorvastatin Calcium 10 MG TABLET 5 MG PO (20:29)
[2021-10-10] MEDS: Clotrimazole 1 % Vaginal Cream 45 GM TUBE 1 APPL VAGINAL (20:57)
[2021-10-11] MEDS: Omeprazole 20 MG CAPSULE.DR PO (05:33)
[2021-10-11 06:52] LABS: Glucose, Whole Blood 113 mg/dL (60-115)
[2021-10-11 09:00] VITALS: BP 128/72; PULSE 108; RESP 18; TEMP 36.4; O2SAT 98
[2021-10-11] MEDS: Losartan Potassium 25 MG TABLET PO (09:06)
[2021-10-11] MEDS: cloZAPine 100 MG TABLET PO (09:06)
[2021-10-11] MEDS: cloNIDine HCL 0.1 MG TABLET PO ×2 (09:06→14:35)
[2021-10-11] MEDS: buPROPion HCL 100 MG TABLET PO (09:06)
[2021-10-11] MEDS: ARIPiprazole 30 MG TABLET PO (09:06)
[2021-10-11] MEDS: Cholecalciferol (Vitamin D3) 10 MCG TABLET PO (09:06)
[2021-10-11] MEDS: Cyanocobalamin (Vitamin B-12) 1,000 MCG TABLET 1000 MCG PO (09:06)
[2021-10-11] MEDS: Ascorbic Acid 500 MG TABLET 1000 MG PO (09:06)
[2021-10-11] MEDS: metFORMIN HCl 1,000 MG TABLET 1000 MG PO (09:06)
[2021-10-11] MEDS: Ferrous Sulfate 324 MG TABLET.DR PO (09:06)
[2021-10-11] MEDS: Multivitamin TABLET 1 TAB PO (09:09)
[2021-10-11 14:38] VITALS: BP 133/68; PULSE 110
--- NOTE | 2021-10-11 15:41 | P.PNPSI_ITS ---
Subjective Subjective Date of Service: 10/11/21 Reason For Visit: Depression paranoia Subjective Notes: Section 8 Healthcare Proxy: Yes (Activated and validated) Guardianship: No Medical Problems Affecting Mental Status: Yes (Breast cancer-Participating in second phase of chemotherapy) Interim History: Sabra is less talkative today, however, she reports no new concerns about medications. She persists with thoughts that she will be arrested and sent to half-way-when asked what proof we could provide to help her resolve this concern and replace it with a more peaceful thought train, she replied she would consider this question and let us know, and smiled. She visited with her mother this a fternoon. Medication Compliance: Yes Side effects from medications: No Attending Groups: Yes Review of Systems Acute medical concerns: Yes Breast cancer-second phase of chemotherapy Medical Review of Systems: unchanged Review of Systems Psychiatric: Reports anxiety, Reports hopelessness, Reports anhedonia, Reports paranoia and Reports suicidal ideation (denies) Mental Status Exam Mental Status Exam Patient Appearance: Appropriate Patient Orientation: Person, Place, Time and Situation Level of Consciousness: Alert Patient Behavior: Talkative and Good Eye Contact Mood Description: Anxious and Apprehensive Affect Description: Anxious and Apprehensive Patient Cognition Impaired: No Ability to Follow Directions: Good Speech Pattern: Spontaneous Speech Memory Description: Episodic Impaired Delusions: Paranoid Ideation Perceptual Disturbances: Depersonalization and Derealization Thought Process: Distracted and Rumination Thought Content: positive for Circumstantial and positive for Suicidal Ideation (denies) Depressive Symptoms: Increased Anxiety Judgement: Poor Diagnostics Vital Signs (24Hr): Vital Signs - 24 hr 10/10/21 20:27 10/11/21 09:00 10/11/21 14:38 Temperature 97.4 F 97.5 F Pulse Rate 99 108 H 110 H Respiratory Rate 18 18 Blood Pressure 132/72 128/72 133/68 Pulse Oximetry 98 BMI result Body Mass Index 31.6 Labs Results: 10/08/21 08:29 10/08/21 08:29 Labs: Laboratory Results - last 48 hr 10/10/21 10/11/21 06:14 06:47 POC Glucose 120 H 113 Medications Medications Current Medications Acetaminophen (Acetaminophen 325 Mg Tablet) 650 mg PO Q6H PRN PRN Reason: Headache/Pain Mild Scale (1-3) Al Hydroxide/Mg Hydroxide (Magnesium Hydrox/Alum Hydrox 30 Ml Oral.Susp) 30 ml PO Q6H PRN PRN Reason: Heartburn/Nausea Last Admin: 10/02/21 14:41 Dose: 30 ml Documented by: Aripiprazole (Aripiprazole 30 Mg Tablet) 30 mg PO DAILY [facility] Last Admin: 10/11/21 09:06 Dose: 30 mg Documented by: Ascorbic Acid (Ascorbic Acid 500 Mg Tablet) 1,000 mg PO DAILY [facility] Last Admin: 10/11/21 09:06 Dose: 1,000 mg Documented by: Atorvastatin Calcium (Atorvastatin Calcium 10 Mg Tablet) 5 mg PO BEDTIME [facility] Last Admin: 10/10/21 20:29 Dose: 5 mg Documented by: Bupropion HCl (Bupropion Hcl 100 Mg Tablet) 100 mg PO DAILY [facility] Last Admin: 10/11/21 09:06 Dose: 100 mg Documented by: Clonidine HCl (Clonidine Hcl 0.1 Mg Tablet) 0.1 mg PO TID [facility]; Protocol Last Admin: 10/11/21 14:35 Dose: 0.1 mg Documented by: Clotrimazole (Clotrimazole 1 % Vaginal Cream 45 Gm Tube) 1 appl VAGINAL BEDTIME [facility] Stop: 10/15/21 21:01 Last Admin: 10/10/21 20:57 Dose: 1 appl Documented by: Clozapine (Clozapine 100 Mg Tablet) 100 mg PO BID [facility] Last Admin: 10/11/21 09:06 Dose: 100 mg Documented by: Cyanocobalamin (Cyanocobalamin (Vitamin B-12) 1,000 Mcg Tablet) 1,000 mcg PO DAILY [facility] Last Admin: 10/11/21 09:06 Dose: 1,000 mcg Documented by: Dexamethasone (Dexamethasone 4 Mg Tablet) 8 mg PO Tu@0800 [facility] Docusate Sodium (Docusate Sodium 100 Mg Capsule) 100 mg PO BEDTIME [facility] Last Admin: 10/10/21 20:30 Dose: Not Given Documented by: Ferrous Sulfate (Ferrous Sulfate 324 Mg Tablet.Dr) 324 mg PO DAILY [facility] Last Admin: 10/11/21 09:06 Dose: 324 mg Documented by: Hydroxyzine HCl (Hydroxyzine Hcl 25 Mg Tablet) 25 mg PO BEDTIME PRN PRN Reason: Anxiety Lorazepam (Lorazepam 0.5 Mg Tablet) 0.5 mg PO Q4H PRN PRN Reason: anxiety, catatonia Last Admin: 10/06/21 21:11 Dose: 0.5 mg Documented by: Losartan Potassium (Losartan Potassium 25 Mg Tablet) 25 mg PO DAILY [facility]; Protocol Last Admin: 10/11/21 09:06 Dose: 25 mg Documented by: Magnesium Hydroxide (Milk Of Magnesia 30 Ml Oral.Susp) 30 ml PO DAILY PRN PRN Reason: Constipation Metformin HCl (Metformin Hcl 1,000 Mg Tablet) 1,000 mg PO BID [facility] Last Admin: 10/11/21 09:06 Dose: 1,000 mg Documented by: Multivitamins/Vitamin C (Multivitamin Tablet) 1 tab PO DAILY [facility] Last Admin: 10/11/21 09:09 Dose: 1 tab Documented by: Non-Formulary Medication (Cinnamon) 1,000 mg PO DAILY [facility] Last Admin: 10/11/21 09:06 Dose: 1,000 mg Documented by: Patient Own Medication ( Empagliflozin 10 Mg) 1 each PO DAILY [facility] Last Admin: 10/11/21 09:06 Dose: 1 each Documented by: Omeprazole (Omeprazole 20 Mg Capsule.Dr) 20 mg PO DAILY@0630 [facility] Last Admin: 10/11/21 05:33 Dose: 20 mg Documented by: Ondansetron HCl (Ondansetron Odt 8 Mg Tab.Rapdis) 8 mg TRANSLINGU Q8H PRN PRN Reason: nausea Trazodone HCl (Trazodone Hcl 50 Mg Tablet) 50 mg PO BEDTIME PRN PRN Reason: Insomnia Vitamin D (Cholecalciferol (Vitamin D3) 10 Mcg Tablet) 10 mcg PO DAILY [facility] Last Admin: 10/11/21 09:06 Dose: 10 mcg Documented by: Allergies Allergies Allergy/AdvReac Type Severity Reaction Status Date / Time lisinopril [LISINOPRIL] Allergy Unknown SWOLLEN Verified 09/17/21 08:42 LIPS, angioedema, swelling Assessment & Plan Assessment & Plan (1) Schizoaffective disorder: Status: Acute Code(s): F25.9 - Schizoaffective disorder, unspecified (2) Invasive ductal carcinoma of right breast: Status: Acute Code(s): C50.911 - Malignant neoplasm of unspecified site of right female breast (3) Hypertension: Qualifiers: Hypertension type: essential hypertension Qualified Code(s): I10 - Essential (primary) hypertension Status: Acute Code(s): I10 - Essential (primary) hypertension (4) Hypercholesterolemia: Status: Acute Code(s): E78.00 - Pure hypercholesterolemia, unspecified (5) Type 2 diabetes mellitus with hyperglycemia: Qualifiers: Diabetes mellitus long-term insulin use: without watermaster use Qualified Code(s): E11.65 - Type 2 diabetes mellitus with hyperglycemia Status: Acute Code(s): E11.65 - Type 2 diabetes mellitus with hyperglycemia Assessment and Plan: Continue metformin Jardiance not on formulary monitor point of care (6) GERD (gastroesophageal reflux disease): Qualifiers: Esophagitis presence: without esophagitis Qualified Code(s): K21.9 - Gastro-esophageal reflux disease without esophagitis Status: Acute Code(s): K21.9 - Gastro-esophageal reflux disease without esophagitis Plan 50 yo female, hx of schizoaffective disorder, depressed with R breast cancer, dela cruz ving just completed first cycle of chemotherapy. Pt's partner and sister report to crisis team that pt has had a significant mental status change with psychotic symptoms, paranoia, perceptual alterations, poor sleep and significant thought blocking. Pt denies SI, HI. Today she is a very poor historian-almost pre- catatonic at times, considering signing a three day notice of intent. Team report by history she may not be comfortable in this facility. Assessment plan for 09/21/2021 Continue current medical treatment elevated white blood count noted over the past month question related to cancer treatment. No evidence of infection Patient depressed withdrawn preoccupied patient with recent treatment for ductal carcinoma stress of this might certainly lead to depressive almost catatonic episode 09/22/21 Pt with thought blocking improved from yeterday have restarted wellbutin hosp did not have sr cont clozapine evaluate baseline denies self harm oob more 09/23/21 Continue current plan of care. Collateral contacts with OP team, oncology. 09/24/21 Increase Abilify to 30 mg daily Pt currently refusing Lorazepam TDN expires 09/25/21-will file for civil commitment if pt persists in wanting discharge 09/25/21 Civil commitment filing completed Continue current regime. 09/26/21 Continue current regime 09/27/32 Decrease Abilify to 20 mg daily Risperdal 1.5 mg HS 09/28/21 Continue plan as above 09/29/21 No changes 09/30/21 Court 10/01/21 Chemotherapy 10/01/21 Increase Risperdal to 2.5 mg HS Decrease Abilify to 10 mg daily 10/02/21 Tolerating change back to Abilify from Risperdal Appetite is improved. Calmer, more visable, however continues with paranoia Jardiance ordered from [place] [facility] 10/03/21 Increase Abilify to 30 mg daily Will pursue validation of pt's HCP for continued chemotherapy Tentative chemotherapy 10/09. 10/04/21 Continue current regime 10/05 no changes to current regimen 10/06 no changes to current regimen 10/07/21 No positive effect from increase in Abilify Increase Clozaril to 100 mg bid, an increase of 50 mg daily, divided. Chemotherapy 10/09/21, Labs 10/08/21. 10/08/21 Tolerating Clozaril increase thus far Dexamethasone 4 mg hs and 4 mg a.m. pre chemo per Dr. Mora Support, encourage 10/09/21 Continue current plan of care 10/10/21 Continue current plan of care 10/11/21 Continue current plan. Will re-eval for Clozaril increase next week. I spent minutes with the patient and/or on the patient floor today, greater than?50% of which was spent counseling/coordinating care. Reason for contiued inpatient stay Substantial Risk for: harm to self, inability to function, rapid decompensation and med/psych decompensation
[2021-10-11 22:30] VITALS: BP 125/81; PULSE 130; TEMP 35.9
[2021-10-12 08:51] LABS: Glucose, Whole Blood 139 mg/dL (60-115)
--- NOTE | 2021-10-12 09:17 | HO.PSYCHPN ---
Subjective Subjective Date of Service: 10/12/21 Reason For Visit: Depression paranoia Subjective Notes: Section 8 Medical Problems Affecting Mental Status: Yes (Breast cancer) Interim History: Patient was seen and discussed in rounds today. She continues to be depressed, disorganized. She has been safe here with no SI/HI. She is undergoing chemotherapy for her breast cancer. She has been very isolative. Staying in her room and not socializing at all. No complaints or side effects. She is not talkative. No changes were made today Review of Systems Psychiatric: Reports anxiety, Reports hopelessness, Reports anhedonia, Reports paranoia and Reports suicidal ideation (denies) Mental Status Exam Mental Status Exam Narrative: In today's visit she is alert. Not responsive. No speech. No eye contact. She was sitting comfortably at the side of her bed, contemplating, eating her breakfast. No reports of dangerous behaviors. Cognitively she continues to be disorganized with paucity of thought. Diagnostics Vital Signs (24Hr): Vital Signs - 24 hr 10/11/21 14:38 10/11/21 22:30 Temperature 96.7 F L Pulse Rate 110 H 130 H Blood Pressure 133/68 125/81 BMI result Body Mass Index 31.6 Labs Results: 10/08/21 08:29 10/08/21 08:29 Labs: Laboratory Results - last 48 hr 10/11/21 10/12/21 06:47 08:47 POC Glucose 113 139 H Medications Medications Current Medications Acetaminophen (Acetaminophen 325 Mg Tablet) 650 mg PO Q6H PRN PRN Reason: Headache/Pain Mild Scale (1-3) Al Hydroxide/Mg Hydroxide (Magnesium Hydrox/Alum Hydrox 30 Ml Oral.Susp) 30 ml PO Q6H PRN PRN Reason: Heartburn/Nausea Last Admin: 10/02/21 14:41 Dose: 30 ml Documented by: Aripiprazole (Aripiprazole 30 Mg Tablet) 30 mg PO DAILY [facility] Last Admin: 10/11/21 09:06 Dose: 30 mg Documented by: Ascorbic Acid (Ascorbic Acid 500 Mg Tablet) 1,000 mg PO DAILY [facility] Last Admin: 10/11/21 09:06 Dose: 1,000 mg Documented by: Atorvastatin Calcium (Atorvastatin Calcium 10 Mg Tablet) 5 mg PO BEDTIME [facility] Last Admin: 10/11/21 23:30 Dose: Not Given Documented by: Bupropion HCl (Bupropion Hcl 100 Mg Tablet) 100 mg PO DAILY [facility] Last Admin: 10/11/21 09:06 Dose: 100 mg Documented by: Clonidine HCl (Clonidine Hcl 0.1 Mg Tablet) 0.1 mg PO TID [facility]; Protocol Last Admin: 10/11/21 23:31 Dose: Not Given Documented by: Clotrimazole (Clotrimazole 1 % Vaginal Cream 45 Gm Tube) 1 appl VAGINAL BEDTIME [facility] Stop: 10/15/21 21:01 Last Admin: 10/11/21 23:30 Dose: Not Given Documented by: Clozapine (Clozapine 100 Mg Tablet) 100 mg PO BID [facility] Last Admin: 10/11/21 23:31 Dose: Not Given Documented by: Cyanocobalamin (Cyanocobalamin (Vitamin B-12) 1,000 Mcg Tablet) 1,000 mcg PO DAILY [facility] Last Admin: 10/11/21 09:06 Dose: 1,000 mcg Documented by: Dexamethasone (Dexamethasone 4 Mg Tablet) 8 mg PO Tu@0800 [facility] Docusate Sodium (Docusate Sodium 100 Mg Capsule) 100 mg PO BEDTIME [facility] Last Admin: 10/11/21 23:32 Dose: Not Given Documented by: Ferrous Sulfate (Ferrous Sulfate 324 Mg Tablet.) 324 mg PO DAILY [facility] Last Admin: 10/11/21 09:06 Dose: 324 mg Documented by: Hydroxyzine HCl (Hydroxyzine Hcl 25 Mg Tablet) 25 mg PO BEDTIME PRN PRN Reason: Anxiety Lorazepam (Lorazepam 0.5 Mg Tablet) 0.5 mg PO Q4H PRN PRN Reason: anxiety, catatonia Last Admin: 10/06/21 21:11 Dose: 0.5 mg Documented by: Losartan Potassium (Losartan Potassium 25 Mg Tablet) 25 mg PO DAILY [facility]; Protocol Last Admin: 10/11/21 09:06 Dose: 25 mg Documented by: Magnesium Hydroxide (Milk Of Magnesia 30 Ml Oral.Susp) 30 ml PO DAILY PRN PRN Reason: Constipation Metformin HCl (Metformin Hcl 1,000 Mg Tablet) 1,000 mg PO BID [facility] Last Admin: 10/11/21 23:32 Dose: Not Given Documented by: Multivitamins/Vitamin C (Multivitamin Tablet) 1 tab PO DAILY [facility] Last Admin: 10/11/21 09:09 Dose: 1 tab Documented by: Non-Formulary Medication (Cinnamon) 1,000 mg PO DAILY [facility] Last Admin: 10/11/21 09:06 Dose: 1,000 mg Documented by: Patient Own Medication ( Empagliflozin 10 Mg) 1 each PO DAILY [facility] Last Admin: 10/11/21 09:06 Dose: 1 each Documented by: Omeprazole (Omeprazole 20 Mg Capsule.) 20 mg PO DAILY@0630 [facility] Last Admin: 10/12/21 06:44 Dose: Not Given Documented by: Ondansetron HCl (Ondansetron Odt 8 Mg Tab.Rapdis) 8 mg TRANSLINGU Q8H PRN PRN Reason: nausea Trazodone HCl (Trazodone Hcl 50 Mg Tablet) 50 mg PO BEDTIME PRN PRN Reason: Insomnia Vitamin D (Cholecalciferol (Vitamin D3) 10 Mcg Tablet) 10 mcg PO DAILY [facility] Last Admin: 10/11/21 09:06 Dose: 10 mcg Documented by: Allergies Allergies Allergy/AdvReac Type Severity Reaction Status Date / Time lisinopril [LISINOPRIL] Allergy Unknown SWOLLEN Verified 09/17/21 08:42 LIPS, angioedema, swelling Assessment & Plan Assessment & Plan (1) Schizoaffective disorder: Status: Acute Code(s): F25.9 - Schizoaffective disorder, unspecified (2) Invasive ductal carcinoma of right breast: Status: Acute Code(s): C50.911 - Malignant neoplasm of unspecified site of right female breast (3) Hypertension: Qualifiers: Hypertension type: essential hypertension Qualified Code(s): I10 - Essential (primary) hypertension Status: Acute Code(s): I10 - Essential (primary) hypertension (4) Hypercholesterolemia: Status: Acute Code(s): E78.00 - Pure hypercholesterolemia, unspecified (5) Type 2 diabetes mellitus with hyperglycemia: Qualifiers: Diabetes mellitus intermodal customer service insulin use: without prison use Qualified Code(s): E11.65 - Type 2 diabetes mellitus with hyperglycemia Status: Acute Code(s): E11.65 - Type 2 diabetes mellitus with hyperglycemia Assessment and Plan: Continue metformin Jardiance not on formulary monitor point of care (6) GERD (gastroesophageal reflux disease): Qualifiers: Esophagitis presence: without esophagitis Qualified Code(s): K21.9 - Gastro-esophageal reflux disease without esophagitis Status: Acute Code(s): K21.9 - Gastro-esophageal reflux disease without esophagitis Plan 50 yo female, hx of schizoaffective disorder, depressed with R breast cancer, having just completed first cycle of chemotherapy. Pt's partner and sister report to crisis team that pt has had a significant mental status change with psychotic symptoms, paranoia, perceptual alterations, poor sleep and significant thought blocking. Pt denies SI, HI. Today she is a very poor historian-almost pre-catatonic at times, considering signing a three day notice of intent. Team report by history she may not be comfortable in this facility. Assessment plan for 09/21/2021 Continue current medical treatment elevated white blood count noted over the past month question related to cancer treatment. No evidence of infection Patient depressed withdrawn preoccupied patient with recent treatment for ductal carcinoma stress of this might certainly lead to depressive almost catatonic episode 09/22/21 Pt with thought blocking improved from yeterday have restarted wellbutin hosp did not have sr cont clozapine evaluate baseline denies self harm oob more 09/23/21 Continue current plan of care. Collateral contacts with OP team, oncology. 09/24/21 Increase Abilify to 30 mg daily Pt currently refusing Lorazepam TDN expires 09/25/21-will file for civil commitment if pt persists in wanting discharge 09/25/21 Civil commitment filing completed Continue current regime. 09/26/21 Continue current regime 09/27/32 Decrease Abilify to 20 mg daily Risperdal 1.5 mg HS 09/28/21 Continue plan as above 09/29/21 No changes 09/30/21 Court 10/01/21 Chemotherapy 10/01/21 Increase Risperdal to 2.5 mg HS Decrease Abilify to 10 mg daily 10/02/21 Tolerating change back to Abilify from Risperdal Appetite is improved. Calmer, more visable, however continues with paranoia Jardiance ordered from [facility] 10/03/21 Increase Abilify to 30 mg daily Will pursue validation of pt's HCP for continued chemotherapy Tentative chemotherapy 10/09. 10/04/21 Continue current regime 10/05 no changes to current regimen 10/06 no changes to current regimen 10/07/21 No positive effect from increase in Abilify Increase Clozaril to 100 mg bid, an increase of 50 mg daily, divided. Chemotherapy 10/09/21, Labs 10/08/21. 10/08/21 Tolerating Clozaril increase thus far Dexamethasone 4 mg hs and 4 mg a.m. pre chemo per Dr. Mora Support, encourage 10/09/21 Continue current plan of care 10/10/21 Continue current plan of care 10/11/21 Continue current plan. Will re-eval for Clozaril increase next week. 10/12/2021: Continue current regimen and plans. No changes were made today I spent minutes with the patient and/or on the patient floor today, greater than?50% of which was spent counseling/coordinating care. Reason for contiued inpatient stay Substantial Risk for: med/psych decompensation
[2021-10-12] MEDS: cloZAPine 100 MG TABLET PO ×2 (09:47→21:44)
[2021-10-12] MEDS: Omeprazole 20 MG CAPSULE.DR PO (09:47)
[2021-10-12] MEDS: Multivitamin TABLET 1 TAB PO (09:47)
[2021-10-12] MEDS: ARIPiprazole 30 MG TABLET PO (09:48)
[2021-10-12] MEDS: buPROPion HCL 100 MG TABLET PO (09:48)
[2021-10-12] MEDS: Cholecalciferol (Vitamin D3) 10 MCG TABLET PO (09:48)
[2021-10-12] MEDS: Cyanocobalamin (Vitamin B-12) 1,000 MCG TABLET 1000 MCG PO (09:48)
[2021-10-12] MEDS: Ascorbic Acid 500 MG TABLET 1000 MG PO (09:48)
[2021-10-12] MEDS: metFORMIN HCl 1,000 MG TABLET 1000 MG PO ×2 (09:48→21:42)
[2021-10-12] MEDS: Losartan Potassium 25 MG TABLET PO (09:48)
[2021-10-12] MEDS: Ferrous Sulfate 324 MG TABLET.DR PO (09:48)
[2021-10-12] MEDS: cloNIDine HCL 0.1 MG TABLET PO ×3 (09:48→21:43)
[2021-10-12 09:57] VITALS: BP 125/89; PULSE 110; RESP 18; TEMP 37; O2SAT 99
[2021-10-12 15:13] VITALS: BP 138/81; PULSE 113; RESP 16
[2021-10-12 18:05] VITALS: BP 113/80; PULSE 113; TEMP 36.3
[2021-10-12] MEDS: Docusate Sodium 100 MG CAPSULE PO (21:43)
[2021-10-12] MEDS: Atorvastatin Calcium 10 MG TABLET 5 MG PO (21:44)
[2021-10-12] MEDS: Clotrimazole 1 % Vaginal Cream 45 GM TUBE 1 APPL VAGINAL (21:45)
[2021-10-13] MEDS: Omeprazole 20 MG CAPSULE.DR PO (06:18)
[2021-10-13 06:33] LABS: Glucose, Whole Blood 147 mg/dL (60-115)
--- NOTE | 2021-10-13 08:18 | HO.PSYCHPN ---
Subjective Subjective Date of Service: 10/13/21 Reason For Visit: Depression paranoia Subjective Notes: Conditional Voluntary Medical Problems Affecting Mental Status: Yes (Breast cancer and treatment) Interim History: Patient was seen and discussed in rounds today.? She has been isolative and avoidant. Attended heart group only. Eating and sleeping adequately. No complaints or side effects. Denies any SI. No changes were made today Side effects from medications: No Review of Systems Review of Systems Yes all other systems are reviewed and are negative Psychiatric: Reports anxiety, Reports hopelessness, Reports anhedonia, Reports paranoia and Reports suicidal ideation (denies) Mental Status Exam Mental Status Exam Narrative: In today's visit she is alert. Very little responsiveness. Attempting at speech. No eye contact. She was sitting comfortably at the side of her bed. No reports of dangerous behaviors. Cognitively she continues to be disorganized with paucity of thought. Judgment is impaired given her current mental state Diagnostics Vital Signs (24Hr): Vital Signs - 24 hr 10/12/21 09:57 10/12/21 15:13 10/12/21 18:05 Temperature 98.6 F 97.3 F Pulse Rate 110 H 113 H 113 H Respiratory Rate 18 16 Blood Pressure 125/89 138/81 113/80 Pulse Oximetry 99 BMI result Body Mass Index 31.6 Labs Results: 10/08/21 08:29 10/08/21 08:29 Labs: Laboratory Results - last 48 hr 10/12/21 10/13/21 08:47 06:26 POC Glucose 139 H 147 H Medications Medications Current Medications Acetaminophen (Acetaminophen 325 Mg Tablet) 650 mg PO Q6H PRN PRN Reason: Headache/Pain Mild Scale (1-3) Al Hydroxide/Mg Hydroxide (Magnesium Hydrox/Alum Hydrox 30 Ml Oral.Susp) 30 ml PO Q6H PRN PRN Reason: Heartburn/Nausea Last Admin: 10/02/21 14:41 Dose: 30 ml Documented by: Aripiprazole (Aripiprazole 30 Mg Tablet) 30 mg PO DAILY [facility] Last Admin: 10/12/21 09:48 Dose: 30 mg Documented by: Ascorbic Acid (Ascorbic Acid 500 Mg Tablet) 1,000 mg PO DAILY [facility] Last Admin: 10/12/21 09:48 Dose: 1,000 mg Documented by: Atorvastatin Calcium (Atorvastatin Calcium 10 Mg Tablet) 5 mg PO BEDTIME [facility] Last Admin: 10/12/21 21:44 Dose: 5 mg Documented by: Bupropion HCl (Bupropion Hcl 100 Mg Tablet) 100 mg PO DAILY [facility] Last Admin: 10/12/21 09:48 Dose: 100 mg Documented by: Clonidine HCl (Clonidine Hcl 0.1 Mg Tablet) 0.1 mg PO TID [facility]; Protocol Last Admin: 10/12/21 21:43 Dose: 0.1 mg Documented by: Clotrimazole (Clotrimazole 1 % Vaginal Cream 45 Gm Tube) 1 appl VAGINAL BEDTIME [facility] Stop: 10/15/21 21:01 Last Admin: 10/12/21 21:45 Dose: 1 appl Documented by: Clozapine (Clozapine 100 Mg Tablet) 100 mg PO BID [facility] Last Admin: 10/12/21 21:44 Dose: 100 mg Documented by: Cyanocobalamin (Cyanocobalamin (Vitamin B-12) 1,000 Mcg Tablet) 1,000 mcg PO DAILY [facility] Last Admin: 10/12/21 09:48 Dose: 1,000 mcg Documented by: Dexamethasone (Dexamethasone 4 Mg Tablet) 8 mg PO Tu@0800 [facility] Docusate Sodium (Docusate Sodium 100 Mg Capsule) 100 mg PO BEDTIME [facility] Last Admin: 10/12/21 21:43 Dose: 100 mg Documented by: Ferrous Sulfate (Ferrous Sulfate 324 Mg Tablet.Dr) 324 mg PO DAILY [facility] Last Admin: 10/12/21 09:48 Dose: 324 mg Documented by: Hydroxyzine HCl (Hydroxyzine Hcl 25 Mg Tablet) 25 mg PO BEDTIME PRN PRN Reason: Anxiety Lorazepam (Lorazepam 0.5 Mg Tablet) 0.5 mg PO Q4H PRN PRN Reason: anxiety, catatonia Last Admin: 10/06/21 21:11 Dose: 0.5 mg Documented by: Losartan Potassium (Losartan Potassium 25 Mg Tablet) 25 mg PO DAILY [facility]; Protocol Last Admin: 10/12/21 09:48 Dose: 25 mg Documented by: Magnesium Hydroxide (Milk Of Magnesia 30 Ml Oral.Susp) 30 ml PO DAILY PRN PRN Reason: Constipation Metformin HCl (Metformin Hcl 1,000 Mg Tablet) 1,000 mg PO BID [facility] Last Admin: 10/12/21 21:42 Dose: 1,000 mg Documented by: Multivitamins/Vitamin C (Multivitamin Tablet) 1 tab PO DAILY [facility] Last Admin: 10/12/21 09:47 Dose: 1 tab Documented by: Non-Formulary Medication (Cinnamon) 1,000 mg PO DAILY [facility] Last Admin: 10/12/21 09:47 Dose: 1,000 mg Documented by: Patient Own Medication ( Empagliflozin 10 Mg) 1 each PO DAILY [facility] Last Admin: 10/12/21 09:47 Dose: 1 each Documented by: Omeprazole (Omeprazole 20 Mg Capsule.Dr) 20 mg PO DAILY@0630 [facility] Last Admin: 10/13/21 06:18 Dose: 20 mg Documented by: Ondansetron HCl (Ondansetron Odt 8 Mg Tab.Margot) 8 mg TRANSLINGU Q8H PRN PRN Reason: nausea Trazodone HCl (Trazodone Hcl 50 Mg Tablet) 50 mg PO BEDTIME PRN PRN Reason: Insomnia Vitamin D (Cholecalciferol (Vitamin D3) 10 Mcg Tablet) 10 mcg PO DAILY [facility] Last Admin: 10/12/21 09:48 Dose: 10 mcg Documented by: Allergies Allergies Allergy/AdvReac Type Severity Reaction Status Date / Time lisinopril [LISINOPRIL] Allergy Unknown SWOLLEN Verified 09/17/21 08:42 LIPS, angioedema, swelling Assessment & Plan Assessment & Plan (1) Schizoaffective disorder: Status: Acute Code(s): F25.9 - Schizoaffective disorder, unspecified (2) Invasive ductal carcinoma of right breast: Status: Acute Code(s): C50.911 - Malignant neoplasm of unspecified site of right female breast (3) Hypertension: Qualifiers: Hypertension type: essential hypertension Qualified Code(s): I10 - Essential (primary) hypertension Status: Acute Code(s): I10 - Essential (primary) hypertension (4) Hypercholesterolemia: Status: Acute Code(s): E78.00 - Pure hypercholesterolemia, unspecified (5) Type 2 diabetes mellitus with hyperglycemia: Qualifiers: Diabetes mellitus oil heaterman insulin use: without nursing home use Qualified Code(s): E11.65 - Type 2 diabetes mellitus with hyperglycemia Status: Acute Code(s): E11.65 - Type 2 diabetes mellitus with hyperglycemia Assessment and Plan: Continue metformin Jardiance not on formulary monitor point of care (6) GERD (gastroesophageal reflux disease): Qualifiers: Esophagitis presence: without esophagitis Qualified Code(s): K21.9 - Gastro-esophageal reflux disease without esophagitis Status: Acute Code(s): K21.9 - Gastro-esophageal reflux disease without esophagitis Plan 50 yo female, hx of schizoaffective disorder, depressed with R breast cancer, having just completed first cycle of chemotherapy. Pt's partner and sister report to crisis team that pt has had a significant mental status change with psychotic symptoms, paranoia, perceptual alterations, poor sleep and significant thought blocking. Pt denies SI, HI. Today she is a very poor historian-almost pre-catatonic at times, considering signing a three day notice of intent. Team report by history she may not be comfortable in this facility. Assessment plan for 09/21/2021 Continue current medical treatment elevated white blood count noted over the past month question related to cancer treatment. No evidence of infection Patient depressed withdrawn preoccupied patient with recent treatment for ductal carcinoma stress of this might certainly lead to depressive almost catatonic episode 09/22/21 Pt with thought blocking improved from yeterday have restarted wellbutin hosp did not have sr cont clozapine evaluate baseline denies self harm oob more 09/23/21 Continue current plan of care. Collateral contacts with OP team, oncology. 09/24/21 Increase Abilify to 30 mg daily Pt currently refusing Lorazepam TDN expires 09/25/21-will file for civil commitment if pt persists in wanting discharge 09/25/21 Civil commitment filing completed Continue current regime. 09/26/21 Continue current regime 09/27/32 Decrease Abilify to 20 mg daily Risperdal 1.5 mg HS 09/28/21 Continue plan as above 09/29/21 No changes 09/30/21 Court 10/01/21 Chemotherapy 10/01/21 Increase Risperdal to 2.5 mg HS Decrease Abilify to 10 mg daily 10/02/21 Tolerating change back to Abilify from Risperdal Appetite is improved. Calmer, more visable, however continues with paranoia Jardiance ordered from [facility] 10/03/21 Increase Abilify to 30 mg daily Will pursue validation of pt's HCP for continued chemotherapy Tentative chemotherapy 10/09. 10/04/21 Continue current regime 10/05 no changes to current regimen 10/06 no changes to current regimen 3/14/22 No positive effect from increase in Abilify Increase Clozaril to 100 mg bid, an increase of 50 mg daily, divided. Chemotherapy 10/09/21, Labs 10/08/21. 10/08/21 Tolerating Clozaril increase thus far Dexamethasone 4 mg hs and 4 mg a.m. pre chemo per Dr. Mora Support, encourage 10/09/21 Continue current plan of care 10/10/21 Continue current plan of care 10/11/21 Continue current plan. Will re-eval for Clozaril increase next week. 10/12/2021: Continue current regimen and plans. No changes were made today 10/13/2021: Continue current plans and regimen. I spent minutes with the patient and/or on the patient floor today, greater than?50% of which was spent counseling/coordinating care. Reason for contiued inpatient stay Substantial Risk for: med/psych decompensation
[2021-10-13] MEDS: Cholecalciferol (Vitamin D3) 10 MCG TABLET PO (08:37)
[2021-10-13] MEDS: ARIPiprazole 30 MG TABLET PO (08:37)
[2021-10-13] MEDS: Cyanocobalamin (Vitamin B-12) 1,000 MCG TABLET 1000 MCG PO (08:37)
[2021-10-13] MEDS: Ascorbic Acid 500 MG TABLET 1000 MG PO (08:38)
[2021-10-13] MEDS: cloNIDine HCL 0.1 MG TABLET PO ×3 (08:38→21:21)
[2021-10-13] MEDS: Ferrous Sulfate 324 MG TABLET.DR PO (08:38)
[2021-10-13] MEDS: Losartan Potassium 25 MG TABLET PO (08:38)
[2021-10-13] MEDS: buPROPion HCL 100 MG TABLET PO (08:38)
[2021-10-13] MEDS: cloZAPine 100 MG TABLET PO ×2 (08:38→21:00)
[2021-10-13] MEDS: metFORMIN HCl 1,000 MG TABLET 1000 MG PO (08:38)
[2021-10-13] MEDS: Multivitamin TABLET 1 TAB PO (08:38)
[2021-10-13 08:51] VITALS: BP 133/89; PULSE 100; RESP 16; TEMP 36.4; O2SAT 98
[2021-10-13 14:33] VITALS: BP 113/74; PULSE 122; RESP 18
[2021-10-13] MEDS: LORazepam 0.5 MG TABLET PO (21:09)
[2021-10-13 21:31] VITALS: BP 137/93; PULSE 141; RESP 18; TEMP 35.9; O2SAT 98
[2021-10-13 22:21] VITALS: PULSE 119
--- NOTE | 2021-10-13 22:32 | TAR.NOTE ---
Pt initially declined to take her night meds including clozaril, after several attempts agreed to take some (clozaril, clonidine and PRN ativan).
[2021-10-14 08:24] LABS: Glucose, Whole Blood 125 mg/dL (60-115)
[2021-10-14] MEDS: Multivitamin TABLET 1 TAB PO (08:29)
[2021-10-14] MEDS: ARIPiprazole 30 MG TABLET PO (08:29)
[2021-10-14] MEDS: metFORMIN HCl 1,000 MG TABLET 1000 MG PO ×2 (08:29→21:20)
[2021-10-14] MEDS: cloZAPine 100 MG TABLET PO (08:30)
[2021-10-14] MEDS: buPROPion HCL 100 MG TABLET PO (08:30)
[2021-10-14] MEDS: Cholecalciferol (Vitamin D3) 10 MCG TABLET PO (08:30)
[2021-10-14] MEDS: Cyanocobalamin (Vitamin B-12) 1,000 MCG TABLET 1000 MCG PO (08:30)
[2021-10-14] MEDS: Ascorbic Acid 500 MG TABLET 1000 MG PO (08:30)
[2021-10-14] MEDS: Losartan Potassium 25 MG TABLET PO (08:30)
[2021-10-14] MEDS: cloNIDine HCL 0.1 MG TABLET PO ×3 (08:30→21:25)
[2021-10-14] MEDS: Ferrous Sulfate 324 MG TABLET.DR PO (08:30)
[2021-10-14 08:43] VITALS: BP 125/78; PULSE 105; RESP 16; TEMP 36.2; O2SAT 98
--- NOTE | 2021-10-14 11:04 | P.PNPSI_ITS ---
Subjective Subjective Date of Service: 10/14/21 Reason For Visit: Depression paranoia Subjective Notes: [employer] Proxy: Yes Guardianship: No Medical Problems Affecting Mental Status: Yes (phase II chemotherapy for breast cancer) Interim History: Sabra experiencing difficulty in expression this a.m. Difficult to get her ideas across, appears to be thought blocking with paranoia. Review of the weekend with partner Kailey. On , Kailey saw pt has having a better day. Thursday was a poor day-pt described as agitated, scared, difficult to calm with difficulties in speaking. On Thursday pt was able to communicate more but could not articulate concerns, stating I wish you could hear my thoughts. Medication Compliance: Yes Side effects from medications: No Attending Groups: Intermittent Review of Systems Acute medical concerns: Yes Chemotherapy phase II for breast cancer. Medical Review of Systems: unchanged Review of Systems Reports behavioral changes Psychiatric: Reports anxiety, Reports behavioral changes, Reports depression, R eports difficulty concentrating, Reports anhedonia and Reports paranoia Mental Status Exam Mental Status Exam Patient Appearance: Appropriate Patient Orientation: Person, Place, Time and Situation Level of Consciousness: Alert Patient Behavior: Guarded, Talkative and Suspicious Mood Description: Suspicious, Withdrawn, Fearful, Anxious and Nervous Affect Description: Flat Patient Cognition Impaired: No Ability to Follow Directions: Good Speech Pattern: Perseverating, Difficulty Finding Words, Spontaneous Speech, Soft-Spoken and Delayed Memory Description: Episodic Impaired Delusions: Paranoid Ideation Perceptual Disturbances: Depersonalization and Derealization Thought Process: Distracted, Rumination and Slowed Thinking Thought Content: positive for Perseveration and positive for Thought Blocking Depressive Symptoms: Diff. Making Decisions and Difficulty Concentrating Judgement: Poor Diagnostics Vital Signs (24Hr): Vital Signs - 24 hr 10/13/21 14:33 10/13/21 21:31 10/13/21 22:21 Temperature 96.7 F L Pulse Rate 122 H 141 H 119 H Respiratory Rate 18 18 Blood Pressure 113/74 137/93 H Pulse Oximetry 98 10/14/21 08:43 Temperature 97.1 F Pulse Rate 105 H Respiratory Rate 16 Blood Pressure 125/78 Pulse Oximetry 98 BMI result Body Mass Index 31.6 Labs Results: 10/08/21 08:29 10/08/21 08:29 Labs: Laboratory Results - last 48 hr 10/13/21 10/14/21 06:26 08:20 POC Glucose 147 H 125 H Medications Medications Current Medications Acetaminophen (Acetaminophen 325 Mg Tablet) 650 mg PO Q6H PRN PRN Reason: Headache/Pain Mild Scale (1-3) Al Hydroxide/Mg Hydroxide (Magnesium Hydrox/Alum Hydrox 30 Ml Oral.Susp) 30 ml PO Q6H PRN PRN Reason: Heartburn/Nausea Last Admin: 10/02/21 14:41 Dose: 30 ml Documented by: Aripiprazole (Aripiprazole 30 Mg Tablet) 30 mg PO DAILY [facility] Last Admin: 10/14/21 08:29 Dose: 30 mg Documented by: Ascorbic Acid (Ascorbic Acid 500 Mg Tablet) 1,000 mg PO DAILY [facility] Last Admin: 10/14/21 08:30 Dose: 1,000 mg Documented by: Atorvastatin Calcium (Atorvastatin Calcium 10 Mg Tablet) 5 mg PO BEDTIME [facility] Last Admin: 10/13/21 21:55 Dose: Not Given Documented by: Bupropion HCl (Bupropion Hcl 100 Mg Tablet) 100 mg PO DAILY [facility] Last Admin: 10/14/21 08:30 Dose: 100 mg Documented by: Clonidine HCl (Clonidine Hcl 0.1 Mg Tablet) 0.1 mg PO TID [facility]; Protocol Last Admin: 10/14/21 08:30 Dose: 0.1 mg Documented by: Clotrimazole (Clotrimazole 1 % Vaginal Cream 45 Gm Tube) 1 appl VAGINAL BEDTIME [facility] Stop: 10/15/21 21:01 Last Admin: 10/13/21 21:55 Dose: Not Given Documented by: Clozapine (Clozapine 25 Mg Tablet) 125 mg PO BID [facility] Cyanocobalamin (Cyanocobalamin (Vitamin B-12) 1,000 Mcg Tablet) 1,000 mcg PO DAILY [facility] Last Admin: 10/14/21 08:30 Dose: 1,000 mcg Documented by: Dexamethasone (Dexamethasone 4 Mg Tablet) 8 mg PO Tu@0800 [facility] Docusate Sodium (Docusate Sodium 100 Mg Capsule) 100 mg PO BEDTIME [facility] Last Admin: 10/13/21 21:55 Dose: Not Given Documented by: Ferrous Sulfate (Ferrous Sulfate 324 Mg Tablet.) 324 mg PO DAILY [facility] Last Admin: 10/14/21 08:30 Dose: 324 mg Documented by: Hydroxyzine HCl (Hydroxyzine Hcl 25 Mg Tablet) 25 mg PO BEDTIME PRN PRN Reason: Anxiety Lorazepam (Lorazepam 0.5 Mg Tablet) 0.5 mg PO Q4H PRN PRN Reason: anxiety, catatonia Last Admin: 10/13/21 21:09 Dose: 0.5 mg Documented by: Losartan Potassium (Losartan Potassium 25 Mg Tablet) 25 mg PO DAILY [facility]; Protocol Last Admin: 10/14/21 08:30 Dose: 25 mg Documented by: Magnesium Hydroxide (Milk Of Magnesia 30 Ml Oral.Susp) 30 ml PO DAILY PRN PRN Reason: Constipation Metformin HCl (Metformin Hcl 1,000 Mg Tablet) 1,000 mg PO BID [facility] Last Admin: 10/14/21 08:29 Dose: 1,000 mg Documented by: Multivitamins/Vitamin C (Multivitamin Tablet) 1 tab PO DAILY [facility] Last Admin: 10/14/21 08:29 Dose: 1 tab Documented by: Non-Formulary Medication (Cinnamon) 1,000 mg PO DAILY [facility] Last Admin: 10/14/21 08:29 Dose: 1,000 mg Documented by: Patient Own Medication ( Empagliflozin 10 Mg) 1 each PO DAILY [facility] Last Admin: 10/14/21 08:31 Dose: 1 each Documented by: Omeprazole (Omeprazole 20 Mg Capsule.Dr) 20 mg PO DAILY@0630 [facility] Last Admin: 10/14/21 06:56 Dose: Not Given Documented by: Ondansetron HCl (Ondansetron Odt 8 Mg Tab.Rapdis) 8 mg TRANSLINGU Q8H PRN PRN Reason: nausea Trazodone HCl (Trazodone Hcl 50 Mg Tablet) 50 mg PO BEDTIME PRN PRN Reason: Insomnia Vitamin D (Cholecalciferol (Vitamin D3) 10 Mcg Tablet) 10 mcg PO DAILY [facility] Last Admin: 10/14/21 08:30 Dose: 10 mcg Documented by: Allergies Allergies Allergy/AdvReac Type Severity Reaction Status Date / Time lisinopril [LISINOPRIL] Allergy Unknown SWOLLEN Verified 09/17/21 08:42 LIPS, angioedema, swelling Assessment & Plan Assessment & Plan (1) Schizoaffective disorder: Status: Acute Code(s): F25.9 - Schizoaffective disorder, unspecified (2) Invasive ductal carcinoma of right breast: Status: Acute Code(s): C50.911 - Malignant neoplasm of unspecified site of right female breast (3) Hypertension: Qualifiers: Hypertension type: essential hypertension Qualified Code(s): I10 - Essential (primary) hypertension Status: Acute Code(s): I10 - Essential (primary) hypertension (4) Hypercholesterolemia: Status: Acute Code(s): E78.00 - Pure hypercholesterolemia, unspecified (5) Type 2 diabetes mellitus with hyperglycemia: Qualifiers: Diabetes mellitus [facility] insulin use: without [facility] use Qual ified Code(s): E11.65 - Type 2 diabetes mellitus with hyperglycemia Status: Acute Code(s): E11.65 - Type 2 diabetes mellitus with hyperglycemia Assessment and Plan: Continue metformin Jardiance not on formulary monitor point of care (6) GERD (gastroesophageal reflux disease): Qualifiers: Esophagitis presence: without esophagitis Qualified Code(s): K21.9 - Gastro-esophageal reflux disease without esophagitis Status: Acute Code(s): K21.9 - Gastro-esophageal reflux disease without esophagitis Plan 50 yo female, hx of schizoaffective disorder, depressed with R breast cancer, having just completed first cycle of chemotherapy. Pt's partner and sister report to crisis team that pt has had a significant mental status change with psychotic symptoms, paranoia, perceptual alterations, poor sleep and significant thought blocking. Pt denies SI, HI. Today she is a very poor historian-almost pre-catatonic at times, considering signing a three day notice of intent. Team report by history she may not be comfortable in this facility. Assessment plan for 09/21/2021 Continue current medical treatment elevated white blood count noted over the past month question related to cancer treatment. No evidence of infection Patient depressed withdrawn preoccupied patient with recent treatment for ductal carcinoma stress of this might certainly lead to depressive almost catatonic episode 09/22/21 Pt with thought blocking improved from yeterday have restarted wellbutin hosp did not have sr cont clozapine evaluate baseline denies self harm oob more 09/23/21 Continue current plan of care. Collateral contacts with OP team, oncology. 09/24/21 Increase Abilify to 30 mg daily Pt currently refusing Lorazepam TDN expires 09/25/21-will file for civil commitment if pt persists in wanting discharge 09/25/21 Civil commitment filing completed Continue current regime. 09/26/21 Continue current regime 09/27/32 Decrease Abilify to 20 mg daily Risperdal 1.5 mg HS 09/28/21 Continue plan as above 09/29/21 No changes 09/30/21 Court 10/01/21 Chemotherapy 10/01/21 Increase Risperdal to 2.5 mg HS Decrease Abilify to 10 mg daily 10/02/21 Tolerating change back to Abilify from Risperdal Appetite is improved. Calmer, more visable, however continues with paranoia Jardiance ordered from [facility] pharmacy 10/03/21 Increase Abilify to 30 mg daily Will pursue validation of pt's HCP for continued chemotherapy Tentative chemotherapy 10/09. 10/04/21 Continue current regime 10/05 no changes to current regimen 10/06 no changes to current regimen 10/07/21 No positive effect from increase in Abilify Increase Clozaril to 100 mg bid, an increase of 50 mg daily, divided. Chemotherapy 10/09/21, Labs 10/08/21. 10/08/21 Tolerating Clozaril increase thus far Dexamethasone 4 mg hs and 4 mg a.m. pre chemo per Dr. Mora Support, encourage 10/09/21 Continue current plan of care 10/10/21 Continue current plan of care 10/11/21 Continue current plan. Will re-eval for Clozaril increase next week. 10/12/2021: Continue current regimen and plans. No changes were made today 10/13/2021: Continue current plans and regimen. 10/14/21: Increase Clozaril to 125 mg bid EKG, CBCD, CMP 10/15 prior to chemotherapy I spent minutes with the patient and/or on the patient floor today, greater than?50% of which was spent counseling/coordinating care. Informed Consent: further education needed Reason for contiued inpatient stay Substantial Risk for: harm to self, inability to function, rapid decompensation and med/psych decompensation
[2021-10-14 12:10] VITALS: BP 109/79; PULSE 120; RESP 16; O2SAT 98
[2021-10-14 13:45] VITALS: BP 124/71; PULSE 122; RESP 16
[2021-10-14 20:35] VITALS: BP 129/86; PULSE 99; TEMP 36.1
[2021-10-14] MEDS: Docusate Sodium 100 MG CAPSULE PO (21:20)
[2021-10-14] MEDS: Atorvastatin Calcium 10 MG TABLET 5 MG PO (21:25)
[2021-10-14] MEDS: cloZAPine 25 MG TABLET 125 MG PO (21:26)
[2021-10-15 06:00] VITALS: BP 130/85; PULSE 95; RESP 18; TEMP 36.6; O2SAT 99
[2021-10-15] MEDS: Omeprazole 20 MG CAPSULE.DR PO (06:31)
[2021-10-15 08:24] LABS: Glucose, Whole Blood 130 mg/dL (60-115)
[2021-10-15 08:43] LABS: MANUAL DIFF FLAG NO
[2021-10-15 08:44] VITALS: BP 142/84; PULSE 97; TEMP 36.4; O2SAT 98
[2021-10-15 08:46] LABS: Basophils Percent Auto 0.3 % (0-2); Eosinophils Percent Auto 0.3 % (0-4); Hematocrit 39.8 % (37.0-47.0); Hemoglobin 13.1 g/dl (12.0-16.0); Imm Gran Abs Auto 0.03 X10*3/uL (0.00-0.03); Imm Gran Pct Auto 0.3 % (0.0-0.4); Lymphocytes Absolute Auto 2.1 X10*3/uL (1.2-4.9); Lymphocytes Percent Auto 23.3 % (20-40); Mean Corpuscular HGB Conc 32.9 g/dl (31.0-35.0); Mean Corpuscular Hemoglobin 30.5 pg (27.0-33.0); Mean Corpuscular Volume 92.6 fL (80.0-98.0); Mean Platelet Volume 10.6 fL (9.4-12.3); Monocytes Absolute Auto 0.4 X10*3/uL (0.1-1.2); Monocytes Percent Auto 4.3 % (2-11); Neutrophils Absolute Auto 6.3 x10*3/uL (2.0-8.3); Neutrophils Percent Auto 71.5 % (45-73); Platelet Count 320 X10*3/uL (160-400); Red Cell Distribution Width 15.7 % (11.0-16.0); White Blood Count 8.9 X10*3/uL (4.8-10.8)
[2021-10-15] MEDS: Cyanocobalamin (Vitamin B-12) 1,000 MCG TABLET 1000 MCG PO (08:55)
[2021-10-15] MEDS: cloZAPine 25 MG TABLET 125 MG PO ×2 (08:55→20:15)
[2021-10-15] MEDS: cloNIDine HCL 0.1 MG TABLET PO ×3 (08:56→20:14)
[2021-10-15] MEDS: Ferrous Sulfate 324 MG TABLET.DR PO (08:56)
[2021-10-15] MEDS: dexAMETHasone 4 MG TABLET 8 MG PO (08:56)
[2021-10-15] MEDS: Multivitamin TABLET 1 TAB PO (08:56)
[2021-10-15] MEDS: Ascorbic Acid 500 MG TABLET 1000 MG PO (08:56)
[2021-10-15] MEDS: buPROPion HCL 100 MG TABLET PO (08:56)
[2021-10-15] MEDS: ARIPiprazole 30 MG TABLET PO (08:57)
[2021-10-15] MEDS: metFORMIN HCl 1,000 MG TABLET 1000 MG PO ×2 (08:57→20:15)
[2021-10-15] MEDS: Losartan Potassium 25 MG TABLET PO (08:57)
[2021-10-15] MEDS: Cholecalciferol (Vitamin D3) 10 MCG TABLET PO (08:57)
[2021-10-15 09:31] LABS: Alanine Aminotransferase 29 U/L (0-31); Albumin Level 4.4 g/dL (3.5-5.0); Alkaline Phosphatase 125 U/L (39-117); Anion Gap 18 (12-20); Aspartate Amino Transferase 21 U/L (5-31); Bilirubin Total 0.8 mg/dL (0.0-1.0); Calcium 9.6 mg/dL (8.4-10.2); Carbon Dioxide 20 mmol/L (22-29); Chloride 106 mmol/L (96-108); Creatinine Clr Calc Pharmacy 89.4; Estimated Glomerular Filt Rate > 60; Glucose Random 135 mg/dL (60-115); Potassium 4.3 mmol/L (3.3-5.1); Sodium 140 mmol/L (135-145)
--- NOTE | 2021-10-15 10:00 | ECG_ITS ---
Test Reason : CHEMO, PSYCH MEDS Blood Pressure : / mmHG Vent. Rate : 123 BPM Atrial Rate : 123 BPM P-R Int : 128 ms QRS Dur : 070 ms QT Int : 280 ms P-R-T Axes : 051 074 -31 degrees QTc Int : 400 ms Sinus tachycardia Nonspecific T wave abnormality Abnormal ECG When compared with ECG of 09-OCT-2021 13:37, Nonspecific T wave abnormality, improved in Lateral leads Referred By: Marci Jones Electronically Signed By:Joel Horne
[2021-10-15 11:02] LABS: Blood Urea Nitrogen 13 mg/dL (9-16)
[2021-10-15 13:00] VITALS: BP 124/84; PULSE 137; TEMP 36.6; O2SAT 98
--- NOTE | 2021-10-15 17:56 | HO.PSYCHPN ---
Subjective Subjective Date of Service: 10/15/21 Reason For Visit: Depression paranoia Interim History: Continues with symptoms of thought blocking. Increased articulation today- I have a lot of thoughts in my head. Pt unable to articuate any specific issues which are of concern to her today. She is aware of chemotherapy appointment on 10/16 and denies current questions. She visited with her mother today. We did discuss her previous concerns about going to residential. Reassurance was attempted along with reassurance that when she is feeling improved she will go home with Kailey and their cat Aguilar. Tolerating Clozaril increase thus far. EKG, CBCD, CMP completed pre chemotherapy. Medication Compliance: Yes Side effects from medications: No Attending Groups: Intermittent Review of Systems Acute medical concerns: No Medical Review of Systems: unchanged Review of Systems Reports behavioral changes Psychiatric: Reports anxiety, Reports behavioral changes, Reports depression, Reports difficulty concentrating, Reports anhedonia and Reports paranoia Mental Status Exam Mental Status Exam Patient Appearance: Appropriate Patient Orientation: Person, Place, Time and Situation Level of Consciousness: Alert Patient Behavior: Guarded, Talkative and Suspicious Mood Description: Suspicious, Withdrawn, Fearful, Anxious and Nervous Affect Description: Flat Patient Cognition Impaired: No Ability to Follow Directions: Good Speech Pattern: Perseverating, Difficulty Finding Words, Spontaneous Speech, Soft-Spoken and Delayed Memory Description: Episodic Impaired Delusions: Paranoid Ideation Perceptual Disturbances: Depersonalization and Derealization Thought Process: Distracted, Rumination and Slowed Thinking Thought Content: positive for Perseveration and positive for Thought Blocking Depressive Symptoms: Diff. Making Decisions and Difficulty Concentrating Judgement: Poor Diagnostics Vital Signs (24Hr): Vital Signs - 24 hr 10/14/21 20:35 10/15/21 06:00 10/15/21 08:44 Temperature 96.9 F 97.9 F 97.6 F Pulse Rate 99 95 97 Respiratory Rate 18 Blood Pressure 129/86 130/85 142/84 H Pulse Oximetry 99 98 10/15/21 13:00 Temperature 97.8 F Pulse Rate 137 H Respiratory Rate Blood Pressure 124/84 Pulse Oximetry 98 BMI result Body Mass Index 31.6 Labs Results: 10/15/21 08:07 10/15/21 08:08 Labs: Laboratory Results - last 48 hr 10/14/21 10/15/21 10/15/21 08:20 08:07 08:07 WBC 8.9 RBC 4.30 Hgb 13.1 Hct 39.8 MCV 92.6 D MCH 30.5 MCHC 32.9 RDW 15.7 Plt Count 320 MPV 10.6 Immature Gran % (Auto) 0.3 Neut % (Auto) 71.5 Lymph % (Auto) 23.3 [place]oup % (Auto) 4.3 Eos % (Auto) 0.3 Baso % (Auto) 0.3 Lymph # (Auto) 2.1 [place] # (Auto) 0.4 Eos # (Auto) 0.0 Baso # (Auto) 0.0 Abs Immat Gran (auto) 0.03 Absolute Neuts (auto) Cancelled 6.3 Absolute Nucleated RBC 0.000 Nucleated RBC % (auto) 0.0 Sodium Potassium Chloride Carbon Dioxide Anion Gap BUN Creatinine Estim Creat Clear Calc Estimated GFR POC Glucose 125 H Random Glucose Calcium Total Bilirubin AST ALT Alkaline Phosphatase Total Protein Albumin 10/15/21 10/15/21 08:08 08:18 WBC RBC Hgb Hct MCV MCH MCHC RDW Plt Count MPV Immature Gran % (Auto) Neut % (Auto) Lymph % (Auto) [place]oup % (Auto) Eos % (Auto) Baso % (Auto) Lymph # (Auto) [place]oup # (Auto) Eos # (Auto) Baso # (Auto) Abs Immat Gran (auto) Absolute Neuts (auto) Absolute Nucleated RBC Nucleated RBC % (auto) Sodium 140 Potassium 4.3 Chloride 106 Carbon Dioxide 20 L Anion Gap 18 BUN 13 D Creatinine 0.73 Estim Creat Clear Calc 89.4 Estimated GFR > 60 POC Glucose 130 H Random Glucose 135 H Calcium 9.6 Total Bilirubin 0.8 AST 21 ALT 29 Alkaline Phosphatase 125 H Total Protein 7.0 Albumin 4.4 Medications Medications Current Medications Acetaminophen (Acetaminophen 325 Mg Tablet) 650 mg PO Q6H PRN PRN Reason: Headache/Pain Mild Scale (1-3) Al Hydroxide/Mg Hydroxide (Magnesium Hydrox/Alum Hydrox 30 Ml Oral.Susp) 30 ml PO Q6H PRN PRN Reason: Heartburn/Nausea Last Admin: 10/02/21 14:41 Dose: 30 ml Documented by: Aripiprazole (Aripiprazole 30 Mg Tablet) 30 mg PO DAILY [facility] B[facility]S AT [facility] Last Admin: 10/15/21 08:57 Dose: 30 mg Documented by: Ascorbic Acid (Ascorbic Acid 500 Mg Tablet) 1,000 mg PO DAILY [facility] 234 B[facility]S AT [facility] Last Admin: 10/15/21 08:56 Dose: 1,000 mg Documented by: Atorvastatin Calcium (Atorvastatin Calcium 10 Mg Tablet) 5 mg PO BEDTIME [facility]S [facility] 234 BEDS AT [facility] Last Admin: 10/14/21 21:25 Dose: 5 mg Documented by: Bupropion HCl (Bupropion Hcl 100 Mg Tablet) 100 mg PO DAILY [facility] 234 B[facility]S AT [facility] Last Admin: 10/15/21 08:56 Dose: 100 mg Documented by: Clonidine HCl (Clonidine Hcl 0.1 Mg Tablet) 0.1 mg PO TID [facility] 234 BEDS AT [facility]; Protocol Last Admin: 10/15/21 13:50 Dose: 0.1 mg Documented by: Clotrimazole (Clotrimazole 1 % Vaginal Cream 45 Gm Tube) 1 appl VAGINAL BEDTIME [facility]S [facility] 234 BEDS AT [facility] Stop: 10/15/21 21:01 Last Admin: 10/14/21 21:42 Dose: Not Given Documented by: Clozapine (Clozapine 25 Mg Tablet) 125 mg PO BID [facility] 234 BEDS AT [facility] Last Admin: 10/15/21 08:55 Dose: 125 mg Documented by: Cyanocobalamin (Cyanocobalamin (Vitamin B-12) 1,000 Mcg Tablet) 1,000 mcg PO DAILY [facility] 234 BEDS AT [facility] Last Admin: 10/15/21 08:55 Dose: 1,000 mcg Documented by: Dexamethasone (Dexamethasone 4 Mg Tablet) 8 mg PO Tu@0800 [facility]S [facility]CLUDE 234 BEDS AT [facility] Last Admin: 10/15/21 08:56 Dose: 8 mg Documented by: Docusate Sodium (Docusate Sodium 100 Mg Capsule) 100 mg PO BEDTIME [facility] 234 BEDS AT [facility] Last Admin: 10/14/21 21:20 Dose: 100 mg Documented by: Ferrous Sulfate (Ferrous Sulfate 324 Mg Tablet.) 324 mg PO DAILY [facility]CLUDE 234 BEDS AT [facility] Last Admin: 10/15/21 08:56 Dose: 324 mg Documented by: Hydroxyzine HCl (Hydroxyzine Hcl 25 Mg Tablet) 25 mg PO BEDTIME PRN PRN Reason: Anxiety Lorazepam (Lorazepam 0.5 Mg Tablet) 0.5 mg PO Q4H PRN PRN Reason: anxiety, catatonia Last Admin: 10/13/21 21:09 Dose: 0.5 mg Documented by: Losartan Potassium (Losartan Potassium 25 Mg Tablet) 25 mg PO DAILY [facility]CLUDE 234 BEDS AT [facility]; Protocol Last Admin: 10/15/21 08:57 Dose: 25 mg Documented by: Magnesium Hydroxide (Milk Of Magnesia 30 Ml Oral.Susp) 30 ml PO DAILY PRN PRN Reason: Constipation Metformin HCl (Metformin Hcl 1,000 Mg Tablet) 1,000 mg PO BID [facility]S [facility]CLUDE 234 BEDS AT [facility] Last Admin: 10/15/21 08:57 Dose: 1,000 mg Documented by: Multivitamins/Vitamin C (Multivitamin Tablet) 1 tab PO DAILY [facility]CLUDE 234 BEDS AT [facility] Last Admin: 10/15/21 08:56 Dose: 1 tab Documented by: Non-Formulary Medication (Cinnamon) 1,000 mg PO DAILY [facility]CLUDE 234 BEDS AT [facility] Last Admin: 10/15/21 08:54 Dose: 1,000 mg Documented by: Patient Own Medication ( Empagliflozin 10 Mg) 1 each PO DAILY [facility] 234 BEDS AT [facility] Last Admin: 10/15/21 08:55 Dose: 1 each Documented by: Omeprazole (Omeprazole 20 Mg Capsule.Dr) 20 mg PO DAILY@0630 COUNTS INCLUDE 234 BEDS AT [facility] Last Admin: 10/15/21 06:31 Dose: 20 mg Documented by: Ondansetron HCl (Ondansetron Odt 8 Mg Tab.Rapdis) 8 mg TRANSLINGU Q8H PRN PRN Reason: nausea Trazodone HCl (Trazodone Hcl 50 Mg Tablet) 50 mg PO BEDTIME PRN PRN Reason: Insomnia Vitamin D (Cholecalciferol (Vitamin D3) 10 Mcg Tablet) 10 mcg PO DAILY [facility]CLUDE 234 BEDS AT [facility] Last Admin: 10/15/21 08:57 Dose: 10 mcg Documented by: Allergies Allergies Allergy/AdvReac Type Severity Reaction Status Date / Time lisinopril [LISINOPRIL] Allergy Unknown SWOLLEN Verified 09/17/21 08:42 LIPS, angioedema, swelling Assessment & Plan Assessment & Plan (1) Schizoaffective disorder: Status: Acute Code(s): F25.9 - Schizoaffective disorder, unspecified (2) Invasive ductal carcinoma of right breast: Status: Acute Code(s): C50.911 - Malignant neoplasm of unspecified site of right female breast (3) Hypertension: Qualifiers: Hypertension type: essential hypertension Qualified Code(s): I10 - Essential (primary) hypertension Status: Acute Code(s): I10 - Essential (primary) hypertension (4) Hypercholesterolemia: Status: Acute Code(s): E78.00 - Pure hypercholesterolemia, unspecified (5) Type 2 diabetes mellitus with hyperglycemia: Qualifiers: 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: without snf use Qualified Code(s): E11.65 - Type 2 diabetes mellitus with hyperglycemia Status: Acute Code(s): E11.65 - Type 2 diabetes mellitus with hyperglycemia Assessment and Plan: Continue metformin Jardiance not on formulary monitor point of care (6) GERD (gastroesophageal reflux disease): Qualifiers: Esophagitis presence: without esophagitis Qualified Code(s): K21.9 - Gastro-esophageal reflux disease without esophagitis Status: Acute Code(s): K21.9 - Gastro-esophageal reflux disease without esophagitis Plan 50 yo female, hx of schizoaffective disorder, depressed with R breast cancer, having just completed first cycle of chemotherapy. Pt's partner and sister report to crisis team that pt has had a significant mental status change with psychotic symptoms, paranoia, perceptual alterations, poor sleep and significant thought blocking. Pt denies SI, HI. Today she is a very poor historian-almost pre-catatonic at times, considering signing a three day notice of intent. Team report by history she may not be comfortable in this facility. Assessment plan for 09/21/2021 Continue current medical treatment elevated white blood count noted over the past month question related to cancer treatment. No evidence of infection Patient depressed withdrawn preoccupied patient with recent treatment for ductal carcinoma stress of this might certainly lead to depressive almost catatonic episode 09/22/21 Pt with thought blocking improved from yeterday have restarted wellbutin hosp did not have sr cont clozapine evaluate baseline denies self harm oob more 09/23/21 Continue current plan of care. Collateral contacts with OP team, oncology. 09/24/21 Increase Abilify to 30 mg daily Pt currently refusing Lorazepam TDN expires 09/25/21-will file for civil commitment if pt persists in wanting discharge 09/25/21 Civil commitment filing completed Continue current regime. 09/26/21 Continue current regime 09/27/32 Decrease Abilify to 20 mg daily Risperdal 1.5 mg HS 09/28/21 Continue plan as above 09/29/21 No changes 09/30/21 Court 10/01/21 Chemotherapy 10/01/21 Increase Risperdal to 2.5 mg HS Decrease Abilify to 10 mg daily 10/02/21 Tolerating change back to Abilify from Risperdal Appetite is improved. Calmer, more visable, however continues with paranoia Jardiance ordered from [facility] pharmacy 10/03/21 Increase Abilify to 30 mg daily Will pursue validation of pt's HCP for continued chemotherapy Tentative chemotherapy 10/09. 10/04/21 Continue current regime 10/05 no changes to current regimen 10/06 no changes to current regimen 10/07/21 No positive effect from increase in Abilify Increase Clozaril to 100 mg bid, an increase of 50 mg daily, divided. Chemotherapy 10/09/21, Labs 10/08/21. 10/08/21 Tolerating Clozaril increase thus far Dexamethasone 4 mg hs and 4 mg a.m. pre chemo per Dr. Mora Support, encourage 10/09/21 Continue current plan of care 10/10/21 Continue current plan of care 10/11/21 Continue current plan. Will re-eval for Clozaril increase next week. 10/12/2021: Continue current regimen and plans. No changes were made today 10/13/2021: Continue current plans and regimen. 10/14/21: Increase Clozaril to 125 mg bid EKG, CBCD, CMP 10/15 prior to chemotherapy 10/15/21: Continue current plan of care I spent minutes with the patient and/or on the patient floor today, greater than?50% of which was spent counseling/coordinating care. Patient educated on: diagnosis, medication risk/benefits, therapeutic strategies, medical condition and other Informed Consent: understands and further education needed Reason for contiued inpatient stay Substantial Risk for: harm to self, inability to function and rapid decompensation
[2021-10-15] MEDS: Atorvastatin Calcium 10 MG TABLET 5 MG PO (20:15)
[2021-10-15] MEDS: Docusate Sodium 100 MG CAPSULE PO (20:15)
[2021-10-15 20:23] VITALS: BP 143/88; PULSE 87; RESP 18; TEMP 35.9; O2SAT 98
[2021-10-16] MEDS: Omeprazole 20 MG CAPSULE.DR PO (06:09)
[2021-10-16] MEDS: cloZAPine 25 MG TABLET 125 MG PO ×2 (08:17→21:13)
[2021-10-16] MEDS: Multivitamin TABLET 1 TAB PO (08:17)
[2021-10-16] MEDS: Losartan Potassium 25 MG TABLET PO (08:17)
[2021-10-16] MEDS: Cholecalciferol (Vitamin D3) 10 MCG TABLET PO (08:17)
[2021-10-16] MEDS: Ferrous Sulfate 324 MG TABLET.DR PO (08:17)
[2021-10-16] MEDS: ARIPiprazole 30 MG TABLET PO (08:17)
[2021-10-16] MEDS: Cyanocobalamin (Vitamin B-12) 1,000 MCG TABLET 1000 MCG PO (08:17)
[2021-10-16] MEDS: buPROPion HCL 100 MG TABLET PO (08:17)
[2021-10-16] MEDS: metFORMIN HCl 1,000 MG TABLET 1000 MG PO ×2 (08:17→21:13)
[2021-10-16] MEDS: Ascorbic Acid 500 MG TABLET 1000 MG PO (08:17)
[2021-10-16] MEDS: cloNIDine HCL 0.1 MG TABLET PO ×3 (08:17→21:13)
[2021-10-16 08:23] VITALS: BP 117/89; PULSE 123; RESP 18; TEMP 36.3; O2SAT 100
[2021-10-16 08:33] LABS: Glucose, Whole Blood 154 mg/dL (60-115)
--- NOTE | 2021-10-16 10:41 | P.PNPSI_ITS ---
Subjective Subjective Date of Service: 10/16/21 Reason For Visit: Depression paranoia Interim History: Completed chemotherapy #2 treatment. Sister accompanied her. Reports the day was good. Talkative with peers and team, decreased evidence of thought blocking, continues to believe that she will be arrested. Denies medication questions or concerns. Medication Compliance: Yes Side effects from medications: No Attending Groups: Intermittent Review of Systems Breast Cancer treatment, chemotherapy, Series 2, treatment 2 Medical Review of Systems: unchanged Review of Systems Reports behavioral changes Psychiatric: Reports anxiety, Reports behavioral changes, Reports depression, Reports difficulty concentrating, Reports anhedonia and Reports paranoia Mental Status Exam Mental Status Exam Patient Appearance: Appropriate Patient Orientation: Person, Place, Time and Situation Level of Consciousness: Alert Patient Behavior: Talkative Mood Description: Anxious Affect Description: Flat Patient Cognition Impaired: No Ability to Follow Directions: Good Speech Pattern: Perseverating, Difficulty Finding Words, Spontaneous Speech and Soft-Spoken Memory Description: Episodic Impaired Delusions: Paranoid Ideation Perceptual Disturbances: Depersonalization and Derealization Thought Process: Distracted, Rumination and Slowed Thinking Thought Content: positive for Perseveration Depressive Symptoms: Diff. Making Decisions and Difficulty Concentrating Judgement: Fair Diagnostics Vital Signs (24Hr): Vital Signs - 24 hr 10/15/21 13:00 10/15/21 20:23 10/16/21 08:23 Temperature 97.8 F 96.6 F L 97.3 F Pulse Rate 137 H 87 123 H Respiratory Rate 18 18 Blood Pressure 124/84 143/88 H 117/89 Pulse Oximetry 98 98 100 BMI result Body Mass Index 31.6 Labs Results: 10/15/21 08:07 10/15/21 08:08 Labs: Laboratory Results - last 48 hr 10/15/21 10/15/21 10/15/21 08:07 08:07 08:08 WBC 8.9 RBC 4.30 Hgb 13.1 Hct 39.8 MCV 92.6 D MCH 30.5 MCHC 32.9 RDW 15.7 Plt Count 320 MPV 10.6 Immature Gran % (Auto) 0.3 Neut % (Auto) 71.5 Lymph % (Auto) 23.3 Roosevelt % (Auto) 4.3 Eos % (Auto) 0.3 Baso % (Auto) 0.3 Lymph # (Auto) 2.1 Roosevelt # (Auto) 0.4 Eos # (Auto) 0.0 Baso # (Auto) 0.0 Abs Immat Gran (auto) 0.03 Absolute Neuts (auto) Cancelled 6.3 Absolute Nucleated RBC 0.000 Nucleated RBC % (auto) 0.0 Sodium 140 Potassium 4.3 Chloride 106 Carbon Dioxide 20 L Anion Gap 18 BUN 13 D Creatinine 0.73 Estim Creat Clear Calc 89.4 Estimated GFR > 60 POC Glucose Random Glucose 135 H Calcium 9.6 Total Bilirubin 0.8 AST 21 ALT 29 Alkaline Phosphatase 125 H Total Protein 7.0 Albumin 4.4 10/15/21 10/16/21 08:18 08:29 WBC RBC Hgb Hct MCV MCH MCHC RDW Plt Count MPV Immature Gran % (Auto) Neut % (Auto) Lymph % (Auto) Roosevelt % (Auto) Eos % (Auto) Baso % (Auto) Lymph # (Auto) Roosevelt # (Auto) Eos # (Auto) Baso # (Auto) Abs Immat Gran (auto) Absolute Neuts (auto) Absolute Nucleated RBC Nucleated RBC % (auto) Sodium Potassium Chloride Carbon Dioxide Anion Gap BUN Creatinine Estim Creat Clear Calc Estimated GFR POC Glucose 130 H 154 H Random Glucose Calcium Total Bilirubin AST ALT Alkaline Phosphatase Total Protein Albumin Medications Medications Current Medications Acetaminophen (Acetaminophen 325 Mg Tablet) 650 mg PO Q6H PRN PRN Reason: Headache/Pain Mild Scale (1-3) Al Hydroxide/Mg Hydroxide (Magnesium Hydrox/Alum Hydrox 30 Ml Oral.Susp) 30 ml PO Q6H PRN PRN Reason: Heartburn/Nausea Last Admin: 10/02/21 14:41 Dose: 30 ml Documented by: Aripiprazole (Aripiprazole 30 Mg Tablet) 30 mg PO DAILY [facility] Last Admin: 10/16/21 08:17 Dose: 30 mg Documented by: Ascorbic Acid (Ascorbic Acid 500 Mg Tablet) 1,000 mg PO DAILY [facility] Last Admin: 10/16/21 08:17 Dose: 1,000 mg Documented by: Atorvastatin Calcium (Atorvastatin Calcium 10 Mg Tablet) 5 mg PO BEDTIME [facility] Last Admin: 10/15/21 20:15 Dose: 5 mg Documented by: Bupropion HCl (Bupropion Hcl 100 Mg Tablet) 100 mg PO DAILY [facility] Last Admin: 10/16/21 08:17 Dose: 100 mg Documented by: Clonidine HCl (Clonidine Hcl 0.1 Mg Tablet) 0.1 mg PO TID [facility]; Protocol Last Admin: 10/16/21 08:17 Dose: 0.1 mg Documented by: Clozapine (Clozapine 25 Mg Tablet) 125 mg PO BID [facility] Last Admin: 10/16/21 08:17 Dose: 125 mg Documented by: Cyanocobalamin (Cyanocobalamin (Vitamin B-12) 1,000 Mcg Tablet) 1,000 mcg PO DA JAIMEE [facility] Last Admin: 10/16/21 08:17 Dose: 1,000 mcg Documented by: Dexamethasone (Dexamethasone 4 Mg Tablet) 8 mg PO Tu@0800 [facility] Last Admin: 10/15/21 08:56 Dose: 8 mg Documented by: Docusate Sodium (Docusate Sodium 100 Mg Capsule) 100 mg PO BEDTIME [facility] Last Admin: 10/15/21 20:15 Dose: 100 mg Documented by: Ferrous Sulfate (Ferrous Sulfate 324 Mg Tablet.) 324 mg PO DAILY [facility] Last Admin: 10/16/21 08:17 Dose: 324 mg Documented by: Hydroxyzine HCl (Hydroxyzine Hcl 25 Mg Tablet) 25 mg PO BEDTIME PRN PRN Reason: Anxiety Lorazepam (Lorazepam 0.5 Mg Tablet) 0.5 mg PO Q4H PRN PRN Reason: anxiety, catatonia Last Admin: 10/13/21 21:09 Dose: 0.5 mg Documented by: Losartan Potassium (Losartan Potassium 25 Mg Tablet) 25 mg PO DAILY [facility]; Protocol Last Admin: 10/16/21 08:17 Dose: 25 mg Documented by: Magnesium Hydroxide (Milk Of Magnesia 30 Ml Oral.Susp) 30 ml PO DAILY PRN PRN Reason: Constipation Metformin HCl (Metformin Hcl 1,000 Mg Tablet) 1,000 mg PO BID [facility] Last Admin: 10/16/21 08:17 Dose: 1,000 mg Documented by: Multivitamins/Vitamin C (Multivitamin Tablet) 1 tab PO DAILY [facility] Last Admin: 10/16/21 08:17 Dose: 1 tab Documented by: Non-Formulary Medication (Cinnamon) 1,000 mg PO DAILY [facility] Last Admin: 10/16/21 08:17 Dose: 1,000 mg Documented by: Patient Own Medication ( Empagliflozin 10 Mg) 1 each PO DAILY [facility] Last Admin: 10/16/21 08:17 Dose: 1 each Documented by: Omeprazole (Omeprazole 20 Mg Capsule.) 20 mg PO DAILY@0630 [facility] Last Admin: 10/16/21 06:09 Dose: 20 mg Documented by: Ondansetron HCl (Ondansetron Odt 8 Mg Tab.Rapdis) 8 mg TRANSLINGU Q8H PRN PRN Reason: nausea Trazodone HCl (Trazodone Hcl 50 Mg Tablet) 50 mg PO BEDTIME PRN PRN Reason: Insomnia Vitamin D (Cholecalciferol (Vitamin D3) 10 Mcg Tablet) 10 mcg PO DAILY [facility] Last Admin: 10/16/21 08:17 Dose: 10 mcg Documented by: Allergies Allergies Allergy/AdvReac Type Severity Reaction Status Date / Time lisinopril [LISINOPRIL] Allergy Unknown SWOLLEN Verified 09/17/21 08:42 LIPS, angioedema, swelling Assessment & Plan Assessment & Plan (1) Schizoaffective disorder: Status: Acute Code(s): F25.9 - Schizoaffective disorder, unspecified (2) Invasive ductal carcinoma of right breast: Status: Acute Code(s): C50.911 - Malignant neoplasm of unspecified site of right female breast (3) Hypertension: Qualifiers: Hypertension type: essential hypertension Qualified Code(s): I10 - Essential (primary) hypertension Status: Acute Code(s): I10 - Essential (primary) hypertension (4) Hypercholesterolemia: Status: Acute Code(s): E78.00 - Pure hypercholesterolemia, unspecified (5) Type 2 diabetes mellitus with hyperglycemia: Qualifiers: 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 insulin 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: without nursing home use Q ualified Code(s): E11.65 - Type 2 diabetes mellitus with hyperglycemia Status: Acute Code(s): E11.65 - Type 2 diabetes mellitus with hyperglycemia Assessment and Plan: Continue metformin Jardiance not on formulary monitor point of care (6) GERD (gastroesophageal reflux disease): Qualifiers: Esophagitis presence: without esophagitis Qualified Code(s): K21.9 - Gastro-esophageal reflux disease without esophagitis Status: Acute Code(s): K21.9 - Gastro-esophageal reflux disease without esophagitis Plan 50 yo female, hx of schizoaffective disorder, depressed with R breast cancer, having just completed first cycle of chemotherapy. Pt's partner and sister report to crisis team that pt has had a significant mental status change with psychotic symptoms, paranoia, perceptual alterations, poor sleep and significant thought blocking. Pt denies SI, HI. Today she is a very poor historian-almost pre-catatonic at times, considering signing a three day notice of intent. Team report by history she may not be comfortable in this facility. Assessment plan for 09/21/2021 Continue current medical treatment elevated white blood count noted over the past month question related to cancer treatment. No evidence of infection Patient depressed withdrawn preoccupied patient with recent treatment for ductal carcinoma stress of this might certainly lead to depressive almost catatonic episode 09/22/21 Pt with thought blocking improved from yeterday have restarted wellbutin hosp did not have sr cont clozapine evaluate baseline denies self harm oob more 09/23/21 Continue current plan of care. Collateral contacts with OP team, oncology. 09/24/21 Increase Abilify to 30 mg daily Pt currently refusing Lorazepam TDN expires 09/25/21-will file for civil commitment if pt persists in wanting discharge 09/25/21 Civil commitment filing completed Continue current regime. 09/26/21 Continue current regime 09/27/32 Decrease Abilify to 20 mg daily Risperdal 1.5 mg HS 09/28/21 Continue plan as above 09/29/21 No changes 09/30/21 Court 10/01/21 Chemotherapy 10/01/21 Increase Risperdal to 2.5 mg HS Decrease Abilify to 10 mg daily 10/02/21 Tolerating change back to Abilify from Risperdal Appetite is improved. Calmer, more visable, however continues with paranoia Jardiance ordered from [facility] pharmacy 10/03/21 Increase Abilify to 30 mg daily Will pursue validation of pt's HCP for continued chemotherapy Tentative chemotherapy 10/09. 10/04/21 Continue current regime 10/05 no changes to current regimen 10/06 no changes to current regimen 10/07/21 No positive effect from increase in Abilify Increase Clozaril to 100 mg bid, an increase of 50 mg daily, divided. Chemotherapy 10/09/21, Labs 10/08/21. 10/08/21 Tolerating Clozaril increase thus far Dexamethasone 4 mg hs and 4 mg a.m. pre chemo per Dr. Mora Support, encourage 10/09/21 Continue current plan of care 10/10/21 Continue current plan of care 10/11/21 Continue current plan. Will re-eval for Clozaril increase next week. 10/12/2021: Continue current regimen and plans. No changes were made today 10/13/2021: Continue current plans and regimen. 10/14/21: Increase Clozaril to 125 mg bid EKG, CBCD, CMP 10/15 prior to chemotherapy 10/15/21: Continue current plan of care 10/16/21: Continue current plan. Tolerating Clozaril increase I spent minutes with the patient and/or on the patient floor today, greater than?50% of which was spent counseling/coordinating care. Informed Consent: understands and further education needed Reason for contiued inpatient stay Substantial Risk for: harm to self, inability to function, rapid decompensation and med/psych decompensation
[2021-10-16 14:42] VITALS: BP 122/69; PULSE 129
[2021-10-16 21:04] VITALS: BP 135/82; PULSE 111; RESP 18; TEMP 36.1; O2SAT 98
[2021-10-16] MEDS: Atorvastatin Calcium 10 MG TABLET 5 MG PO (21:12)
[2021-10-16] MEDS: Docusate Sodium 100 MG CAPSULE PO (21:12)
[2021-10-17 06:49] LABS: Glucose, Whole Blood 108 mg/dL (60-115)
[2021-10-17 07:00] VITALS: BMI 31.0
[2021-10-17] MEDS: metFORMIN HCl 1,000 MG TABLET 1000 MG PO ×2 (09:05→22:05)
[2021-10-17] MEDS: Multivitamin TABLET 1 TAB PO (09:05)
[2021-10-17] MEDS: Cyanocobalamin (Vitamin B-12) 1,000 MCG TABLET 1000 MCG PO (09:05)
[2021-10-17] MEDS: buPROPion HCL 100 MG TABLET PO (09:05)
[2021-10-17] MEDS: Cholecalciferol (Vitamin D3) 10 MCG TABLET PO (09:05)
[2021-10-17] MEDS: cloZAPine 25 MG TABLET 125 MG PO ×2 (09:05→21:59)
[2021-10-17] MEDS: Losartan Potassium 25 MG TABLET PO (09:05)
[2021-10-17] MEDS: Ferrous Sulfate 324 MG TABLET.DR PO (09:05)
[2021-10-17] MEDS: cloNIDine HCL 0.1 MG TABLET PO ×3 (09:05→21:58)
[2021-10-17] MEDS: ARIPiprazole 30 MG TABLET PO (09:06)
[2021-10-17] MEDS: Ascorbic Acid 500 MG TABLET 1000 MG PO (09:06)
[2021-10-17 09:22] VITALS: BP 143/81; PULSE 88; RESP 16; TEMP 36.3; O2SAT 99
[2021-10-17 14:30] VITALS: BP 125/81; PULSE 122
[2021-10-17 18:00] VITALS: BP 132/84; PULSE 95; RESP 16; TEMP 36.4; O2SAT 97
--- NOTE | 2021-10-17 18:37 | P.PNPSI_ITS ---
Subjective Subjective Date of Service: 10/17/21 Reason For Visit: Depression paranoia Subjective Notes: Section 8 Interim History: Met with Sabra and her sister today. She has an increase in sx of thought blocking and team reports had a difficult time taking medications this a.m. Minimal questions in our meeting, we reviewed the role of her production machine operator as that of support and advocacy, not to defend pt against criminal action. Later in the day, pt approached property underwriter and asked that we again discuss her attorneys role. We reviewed this and she appeared to have an improved understanding of the supportive role maintained by her production machine operator. Medication Compliance: Yes Side effects from medications: No Attending Groups: Intermittent Review of Systems Acute medical concerns: No Medical Review of Systems: unchanged Review of Systems Reports behavioral changes Psychiatric: Reports anxiety, Reports behavioral changes, Reports depression, Reports difficulty concentrating, Reports anhedonia and Reports paranoia Mental Status Exam Mental Status Exam Patient Appearance: Appropriate Patient Orientation: Person, Place, Time and Situation Level of Consciousness: Alert Patient Behavior: Guarded and Suspicious Mood Description: Anxious Affect Description: Flat Patient Cognition Impaired: No Ability to Follow Directions: Good Speech Pattern: Perseverating, Difficulty Finding Words, Spontaneous Speech and Soft-Spoken Memory Description: Episodic Impaired Delusions: Paranoid Ideation Perceptual Disturbances: Depersonalization and Derealization Thought Process: Distracted, Rumination and Slowed Thinking Thought Content: positive for Perseveration, positive for Suicidal Ideation (denies) and positive for Homicidal Ideation (denies) Depressive Symptoms: Diff. Making Decisions and Difficulty Concentrating Judgement: Poor Diagnostics Vital Signs (24Hr): Vital Signs - 24 hr 10/16/21 21:04 10/17/21 09:22 10/17/21 14:30 Temperature 97 F 97.4 F Pulse Rate 111 H 88 122 H Respiratory Rate 18 16 Blood Pressure 135/82 143/81 H 125/81 Pulse Oximetry 98 99 BMI result Body Mass Index 31.0 Labs Results: 10/15/21 08:07 10/15/21 08:08 Labs: Laboratory Results - last 48 hr 10/16/21 10/17/21 08:29 06:35 POC Glucose 154 H 108 Medications Medications Current Medications Acetaminophen (Acetaminophen 325 Mg Tablet) 650 mg PO Q6H PRN PRN Reason: Headache/Pain Mild Scale (1-3) Al Hydroxide/Mg Hydroxide (Magnesium Hydrox/Alum Hydrox 30 Ml Oral.Susp) 30 ml PO Q6H PRN PRN Reason: Heartburn/Nausea Last Admin: 10/02/21 14:41 Dose: 30 ml Documented by: Aripiprazole (Aripiprazole 30 Mg Tablet) 30 mg PO DAILY [facility] Last Admin: 10/17/21 09:06 Dose: 30 mg Documented by: Ascorbic Acid (Ascorbic Acid 500 Mg Tablet) 1,000 mg PO DAILY [facility] Last Admin: 10/17/21 09:06 Dose: 1,000 mg Documented by: Atorvastatin Calcium (Atorvastatin Calcium 10 Mg Tablet) 5 mg PO BEDTIME [facility] Last Admin: 10/16/21 21:12 Dose: 5 mg Documented by: Bupropion HCl (Bupropion Hcl 100 Mg Tablet) 100 mg PO DAILY [facility] Last Admin: 10/17/21 09:05 Dose: 100 mg Documented by: Clonidine HCl (Clonidine Hcl 0.1 Mg Tablet) 0.1 mg PO TID [facility]; Protocol Last Admin: 10/17/21 14:42 Dose: 0.1 mg Documented by: Clozapine (Clozapine 25 Mg Tablet) 125 mg PO BID [facility] Last Admin: 10/17/21 09:05 Dose: 125 mg Documented by: Cyanocobalamin (Cyanocobalamin (Vitamin B-12) 1,000 Mcg Tablet) 1,000 mcg PO DAILY [facility] Last Admin: 10/17/21 09:05 Dose: 1,000 mcg Documented by: Dexamethasone (Dexamethasone 4 Mg Tablet) 8 mg PO Tu@0800 [facility] Last Admin: 10/15/21 08:56 Dose: 8 mg Documented by: Docusate Sodium (Docusate Sodium 100 Mg Capsule) 100 mg PO BEDTIME [facility] Last Admin: 10/16/21 21:12 Dose: 100 mg Documented by: Ferrous Sulfate (Ferrous Sulfate 324 Mg Tablet.) 324 mg PO DAILY [facility] Last Admin: 10/17/21 09:05 Dose: 324 mg Documented by: Hydroxyzine HCl (Hydroxyzine Hcl 25 Mg Tablet) 25 mg PO BEDTIME PRN PRN Reason: Anxiety Lorazepam (Lorazepam 0.5 Mg Tablet) 0.5 mg PO Q4H PRN PRN Reason: anxiety, catatonia Last Admin: 10/13/21 21:09 Dose: 0.5 mg Documented by: Losartan Potassium (Losartan Potassium 25 Mg Tablet) 25 mg PO DAILY [facility]; Protocol Last Admin: 10/17/21 09:05 Dose: 25 mg Documented by: Magnesium Hydroxide (Milk Of Magnesia 30 Ml Oral.Susp) 30 ml PO DAILY PRN PRN Reason: Constipation Metformin HCl (Metformin Hcl 1,000 Mg Tablet) 1,000 mg PO BID [facility] Last Admin: 10/17/21 09:05 Dose: 1,000 mg Documented by: Multivitamins/Vitamin C (Multivitamin Tablet) 1 tab PO DAILY [facility] Last Admin: 10/17/21 09:05 Dose: 1 tab Documented by: Non-Formulary Medication (Cinnamon) 1,000 mg PO DAILY [facility] Last Admin: 10/17/21 09:05 Dose: 1,000 mg Documented by: Patient Own Medication ( Empagliflozin 10 Mg) 1 each PO DAILY [facility] Last Admin: 10/17/21 09:05 Dose: 1 each Documented by: Omeprazole (Omeprazole 20 Mg Capsule.Dr) 20 mg PO DAILY@0630 [facility] Last Admin: 10/17/21 06:09 Dose: Not Given Documented by: Ondansetron HCl (Ondansetron Odt 8 Mg Tab.Rapdis) 8 mg TRANSLINGU Q8H PRN PRN Reason: nausea Trazodone HCl (Trazodone Hcl 50 Mg Tablet) 50 mg PO BEDTIME PRN PRN Reason: Insomnia Vitamin D (Cholecalciferol (Vitamin D3) 10 Mcg Tablet) 10 mcg PO DAILY [facility] Last Admin: 10/17/21 09:05 Dose: 10 mcg Documented by: Allergies Allergies Allergy/AdvReac Type Severity Reaction Status Date / Time lisinopril [LISINOPRIL] Allergy Unknown SWOLLEN Verified 09/17/21 08:42 LIPS, angioedema, swelling Assessment & Plan Assessment & Plan (1) Schizoaffective disorder: Status: Acute Code(s): F25.9 - Schizoaffective disorder, unspecified (2) Invasive ductal carcinoma of right breast: Status: Acute Code(s): C50.911 - Malignant neoplasm of unspecified site of right female breast (3) Hypertension: Qualifiers: Hypertension type: essential hypertension Qualified Code(s): I10 - Essential (primary) hypertension Status: Acute Code(s): I10 - Essential (primary) hypertension (4) Hypercholesterolemia: Status: Acute Code(s): E78.00 - Pure hypercholesterolemia, unspecified (5) Type 2 diabetes mellitus with hyperglycemia: Qualifiers: Diabetes mellitus ferry terminal agent insulin use: without retirement use Qualified Code(s): E11.65 - Type 2 diabetes mellitus with hyperglycemia Status: Acute Code(s): E11.65 - Type 2 diabetes mellitus with hyperglycemia Assessment and Plan: Continue metformin Jardiance not on formulary monitor point of care (6) GERD (gastroesophageal reflux disease): Qualifiers: Esophagitis presence: without esophagitis Qualified Code(s): K21.9 - Gastro-esophageal reflux disease without esophagitis Status: Acute Code(s): K21.9 - Gastro-esophageal reflux disease without esophagitis Plan 50 yo female, hx of schizoaffective disorder, depressed with R breast cancer, having just completed first cycle of chemotherapy. Pt's partner and sister report to crisis team that pt has had a significant mental status change with psychotic symptoms, paranoia, perceptual alterations, poor sleep and significant thought blocking. Pt denies SI, HI. Today she is a very poor historian-almost pre-catatonic at times, considering signing a three day notice of intent. Team report by history she may not be comfortable in this facility. Assessment plan for 09/21/2021 Continue current medical treatment elevated white blood count noted over the pa st month question related to cancer treatment. No evidence of infection Patient depressed withdrawn preoccupied patient with recent treatment for ductal carcinoma stress of this might certainly lead to depressive almost catatonic episode 09/22/21 Pt with thought blocking improved from yeterday have restarted wellbutin hosp did not have sr cont clozapine evaluate baseline denies self harm oob more 09/23/21 Continue current plan of care. Collateral contacts with OP team, oncology. 09/24/21 Increase Abilify to 30 mg daily Pt currently refusing Lorazepam TDN expires 09/25/21-will file for civil commitment if pt persists in wanting discharge 09/25/21 Civil commitment filing completed Continue current regime. 09/26/21 Continue current regime 09/27/32 Decrease Abilify to 20 mg daily Risperdal 1.5 mg HS 09/28/21 Continue plan as above 09/29/21 No changes 09/30/21 Court 10/01/21 Chemotherapy 10/01/21 Increase Risperdal to 2.5 mg HS Decrease Abilify to 10 mg daily 10/02/21 Tolerating change back to Abilify from Risperdal Appetite is improved. Calmer, more visable, however continues with paranoia Jardiance ordered from [facility] pharmacy 10/03/21 Increase Abilify to 30 mg daily Will pursue validation of pt's HCP for continued chemotherapy Tentative chemotherapy 10/09. 10/04/21 Continue current regime 10/05 no changes to current regimen 10/06 no changes to current regimen 10/07/21 No positive effect from increase in Abilify Increase Clozaril to 100 mg bid, an increase of 50 mg daily, divided. Chemotherapy 10/09/21, Labs 10/08/21. 10/08/21 Tolerating Clozaril increase thus far Dexamethasone 4 mg hs and 4 mg a.m. pre chemo per Dr. Mora Support, encourage 10/09/21 Continue current plan of care 10/10/21 Continue current plan of care 10/11/21 Continue current plan. Will re-eval for Clozaril increase next week. 10/12/2021: Continue current regimen and plans. No changes were made today 10/13/2021: Continue current plans and regimen. 10/14/21: Increase Clozaril to 125 mg bid EKG, CBCD, CMP 10/15 prior to chemotherapy 10/15/21: Continue current plan of care 10/16/21: Continue current plan. Tolerating Clozaril increase 10/17/21: Continue current regime. I spent minutes with the patient and/or on the patient floor today, greater than?50% of which was spent counseling/coordinating care. Patient educated on: medication risk/benefits and therapeutic strategies Informed Consent: further education needed Reason for contiued inpatient stay Substantial Risk for: harm to self, inability to function and rapid decompensation
[2021-10-17] MEDS: Atorvastatin Calcium 10 MG TABLET 5 MG PO (22:05)
[2021-10-17] MEDS: Docusate Sodium 100 MG CAPSULE PO (22:05)
[2021-10-18 06:59] LABS: Glucose, Whole Blood 144 mg/dL (60-115)
[2021-10-18] MEDS: ARIPiprazole 30 MG TABLET PO (08:43)
[2021-10-18] MEDS: Multivitamin TABLET 1 TAB PO (08:43)
[2021-10-18] MEDS: cloZAPine 25 MG TABLET 125 MG PO (08:43)
[2021-10-18] MEDS: Ascorbic Acid 500 MG TABLET 1000 MG PO (08:43)
[2021-10-18] MEDS: Omeprazole 20 MG CAPSULE.DR PO (08:43)
[2021-10-18] MEDS: cloNIDine HCL 0.1 MG TABLET PO ×3 (08:43→20:07)
[2021-10-18] MEDS: Cholecalciferol (Vitamin D3) 10 MCG TABLET PO (08:44)
[2021-10-18] MEDS: Cyanocobalamin (Vitamin B-12) 1,000 MCG TABLET 1000 MCG PO (08:44)
[2021-10-18] MEDS: metFORMIN HCl 1,000 MG TABLET 1000 MG PO ×2 (08:44→20:07)
[2021-10-18] MEDS: Losartan Potassium 25 MG TABLET PO (08:44)
[2021-10-18] MEDS: Ferrous Sulfate 324 MG TABLET.DR PO (08:44)
[2021-10-18] MEDS: buPROPion HCL 100 MG TABLET PO (08:44)
[2021-10-18 08:56] VITALS: BP 122/74; PULSE 114; RESP 18; TEMP 36.4; O2SAT 100
--- NOTE | 2021-10-18 14:16 | HO.PSYCHPN ---
Subjective Subjective Date of Service: 10/18/21 Reason For Visit: Depression paranoia Interim History: I am stuck in a loop. Met with pt who reports she slept better last evening. She continues with paucity, thought blocking and does respond to questions, but reports frustration in the time it takes. Received a message from pt's partner, Kailey, that pt's mother requests ECT consult, which was requested. Discussed medications with Sabra and plans to continue careful titration of Clozaril to assist in her recovery. Pt reports that she did talk with her senior attorney yesterday and she again asked that I explain his role which we focused on his advocacy for her vs her thoughts that he is her managing attorney for a crime committed. Medication Compliance: Yes Side effects from medications: No Attending Groups: Intermittent (enjoys art) Review of Systems Acute medical concerns: Yes breast cancer Medical Review of Systems: unchanged Review of Systems Reports behavioral changes Psychiatric: Reports anxiety, Reports behavioral changes, Reports depression, Reports difficulty concentrating, Reports anhedonia and Reports paranoia Mental Status Exam Mental Status Exam Patient Appearance: Appropriate Patient Orientation: Person, Place, Time and Situation Level of Consciousness: Alert Patient Behavior: Guarded and Suspicious Mood Description: Anxious Affect Description: Flat Patient Cognition Impaired: No Ability to Follow Directions: Good Speech Pattern: Perseverating, Difficulty Finding Words, Spontaneous Speech and Soft-Spoken Memory Description: Episodic Impaired Delusions: Paranoid Ideation Perceptual Disturbances: Depersonalization and Derealization Thought Process: Distracted, Rumination and Slowed Thinking Thought Content: positive for Perseveration, positive for Suicidal Ideation (denies) and positive for Homicidal Ideation (denies) Depressive Symptoms: Diff. Making Decisions and Difficulty Concentrating Judgement: Poor Diagnostics Vital Signs (24Hr): Vital Signs - 24 hr 10/17/21 14:30 10/17/21 18:00 10/18/21 08:56 Temperature 97.5 F 97.6 F Pulse Rate 122 H 95 114 H Respiratory Rate 16 18 Blood Pressure 125/81 132/84 122/74 Pulse Oximetry 97 100 BMI result Body Mass Index 31.0 Labs Results: 10/15/21 08:07 10/15/21 08:08 Labs: Laboratory Results - last 48 hr 10/17/21 10/18/21 06:35 06:54 POC Glucose 108 144 H Medications Medications Current Medications Acetaminophen (Acetaminophen 325 Mg Tablet) 650 mg PO Q6H PRN PRN Reason: Headache/Pain Mild Scale (1-3) Al Hydroxide/Mg Hydroxide (Magnesium Hydrox/Alum Hydrox 30 Ml Oral.Susp) 30 ml PO Q6H PRN PRN Reason: Heartburn/Nausea Last Admin: 10/02/21 14:41 Dose: 30 ml Documented by: Aripiprazole (Aripiprazole 30 Mg Tablet) 30 mg PO DAILY [facility] Last Admin: 10/18/21 08:43 Dose: 30 mg Documented by: Ascorbic Acid (Ascorbic Acid 500 Mg Tablet) 1,000 mg PO DAILY [facility] Last Admin: 10/18/21 08:43 Dose: 1,000 mg Documented by: Atorvastatin Calcium (Atorvastatin Calcium 10 Mg Tablet) 5 mg PO BEDTIME [facility] Last Admin: 10/17/21 22:05 Dose: 5 mg Documented by: Bupropion HCl (Bupropion Hcl 100 Mg Tablet) 100 mg PO DAILY [facility] Last Admin: 10/18/21 08:44 Dose: 100 mg Documented by: Clonidine HCl (Clonidine Hcl 0.1 Mg Tablet) 0.1 mg PO TID [facility]; Protocol Last Admin: 10/18/21 08:43 Dose: 0.1 mg Documented by: Clozapine (Clozapine 25 Mg Tablet) 125 mg PO BID [facility] Last Admin: 10/18/21 08:43 Dose: 125 mg Documented by: Cyanocobalamin (Cyanocobalamin (Vitamin B-12) 1,000 Mcg Tablet) 1,000 mcg PO DAILY [facility] Last Admin: 10/18/21 08:44 Dose: 1,000 mcg Documented by: Dexamethasone (Dexamethasone 4 Mg Tablet) 8 mg PO Tu@0800 [facility] Last Admin: 10/15/21 08:56 Dose: 8 mg Documented by: Docusate Sodium (Docusate Sodium 100 Mg Capsule) 100 mg PO BEDTIME [facility] Last Admin: 10/17/21 22:05 Dose: 100 mg Documented by: Ferrous Sulfate (Ferrous Sulfate 324 Mg Tablet.) 324 mg PO DAILY [facility] Last Admin: 10/18/21 08:44 Dose: 324 mg Documented by: Hydroxyzine HCl (Hydroxyzine Hcl 25 Mg Tablet) 25 mg PO BEDTIME PRN PRN Reason: Anxiety Lorazepam (Lorazepam 0.5 Mg Tablet) 0.5 mg PO Q4H PRN PRN Reason: anxiety, catatonia Last Admin: 10/13/21 21:09 Dose: 0.5 mg Documented by: Losartan Potassium (Losartan Potassium 25 Mg Tablet) 25 mg PO DAILY [facility]; Protocol Last Admin: 10/18/21 08:44 Dose: 25 mg Documented by: Magnesium Hydroxide (Milk Of Magnesia 30 Ml Oral.Susp) 30 ml PO DAILY PRN PRN Reason: Constipation Metformin HCl (Metformin Hcl 1,000 Mg Tablet) 1,000 mg PO BID [facility] Last Admin: 10/18/21 08:44 Dose: 1,000 mg Documented by: Multivitamins/Vitamin C (Multivitamin Tablet) 1 tab PO DAILY [facility] Last Admin: 10/18/21 08:43 Dose: 1 tab Documented by: Non-Formulary Medication (Cinnamon) 1,000 mg PO DAILY [facility] Last Admin: 10/18/21 09:00 Dose: 1,000 mg Documented by: Patient Own Medication ( Empagliflozin 10 Mg) 1 each PO DAILY [facility] Last Admin: 10/18/21 09:05 Dose: 1 each Documented by: Omeprazole (Omeprazole 20 Mg Capsule.Dr) 20 mg PO DAILY@0630 [facility] Last Admin: 10/18/21 08:43 Dose: 20 mg Documented by: Ondansetron HCl (Ondansetron Odt 8 Mg Tab.Rapdis) 8 mg TRANSLINGU Q8H PRN PRN Reason: nausea Trazodone HCl (Trazodone Hcl 50 Mg Tablet) 50 mg PO BEDTIME PRN PRN Reason: Insomnia Vitamin D (Cholecalciferol (Vitamin D3) 10 Mcg Tablet) 10 mcg PO DAILY [facility] Last Admin: 10/18/21 08:44 Dose: 10 mcg Documented by: Allergies Allergies Allergy/AdvReac Type Severity Reaction Status Date / Time lisinopril [LISINOPRIL] Allergy Unknown SWOLLEN Verified 09/17/21 08:42 LIPS, angioedema, swelling Assessment & Plan Assessment & Plan (1) Schizoaffective disorder: Status: Acute Code(s): F25.9 - Schizoaffective disorder, unspecified (2) Invasive ductal carcinoma of right breast: Status: Acute Code(s): C50.911 - Malignant neoplasm of unspecified site of right female breast (3) Hypertension: Qualifiers: Hypertension type: essential hypertension Qualified Code(s): I10 - Essential (primary) hypertension Status: Acute Code(s): I10 - Essential (primary) hypertension (4) Hypercholesterolemia: Status: Acute Code(s): E78.00 - Pure hypercholesterolemia, unspecified (5) Type 2 diabetes mellitus with hyperglycemia: Qualifiers: Diabetes mellitus termite treater insulin use: without detention use Qualified Code(s): E11.65 - Type 2 diabetes mellitus with hyperglycemia Status: Acute Code(s): E11.65 - Type 2 diabetes mellitus with hyperglycemia Assessment and Plan: Continue metformin Jardiance not on formulary monitor point of care (6) GERD (gastroesophageal reflux disease): Qualifiers: Esophagitis presence: without esophagitis Qualified Code(s): K21.9 - Gastro-esophageal reflux disease without esophagitis Status: Acute Code(s): K21.9 - Gastro-esophageal reflux disease without esophagitis Plan 50 yo female, hx of schizoaffective disorder, depressed with R breast cancer, having just completed first cycle of chemotherapy. Pt's partner and sister report to crisis team that pt has had a significant mental status change with psychotic symptoms, paranoia, perceptual alterations, poor sleep and significant thought blocking. Pt denies SI, HI. Today she is a very poor historian-almost pre-catatonic at times, considering signing a three day notice of intent. Team report by history she may not be comfortable in this facility. Assessment plan for 09/21/2021 Continue current medical treatment elevated white blood count noted over the past month question related to cancer treatment. No evidence of infection Patient depressed withdrawn preoccupied patient with recent treatment for ductal carcinoma stress of this might certainly lead to depressive almost catatonic episode 09/22/21 Pt with thought blocking improved from yeterday have restarted wellbutin hosp did not have sr cont clozapine evaluate baseline denies self harm oob more 09/23/21 Continue current plan of care. Collateral contacts with OP team, oncology. 09/24/21 Increase Abilify to 30 mg daily Pt currently refusing Lorazepam TDN expires 09/25/21-will file for civil commitment if pt persists in wanting discharge 09/25/21 Civil commitment filing completed Continue current regime. 09/26/21 Continue current regime 09/27/32 Decrease Abilify to 20 mg daily Risperdal 1.5 mg HS 09/28/21 Continue plan as above 09/29/21 No changes 09/30/21 Court 10/01/21 Chemotherapy 10/01/21 Increase Risperdal to 2.5 mg HS Decrease Abilify to 10 mg daily 10/02/21 Tolerating change back to Abilify from Risperdal Appetite is improved. Calmer, more visable, however continues with paranoia Jardiance ordered from [facility] 10/03/21 Increase Abilify to 30 mg daily Will pursue validation of pt's HCP for continued chemotherapy Tentative chemotherapy 10/09. 10/04/21 Continue current regime 10/05 no changes to current regimen 10/06 no changes to current regimen 10/07/21 No positive effect from increase in Abilify Increase Clozaril to 100 mg bid, an increase of 50 mg daily, divided. Chemotherapy 10/09/21, Labs 10/08/21. 10/08/21 Tolerating Clozaril increase thus far Dexamethasone 4 mg hs and 4 mg a.m. pre chemo per Dr. Mora Support, encourage 10/09/21 Continue current plan of care 10/10/21 Continue current plan of care 10/11/21 Continue current plan. Will re-eval for Clozaril increase next week. 10/12/2021: Continue current regimen and plans. No changes were made today 10/13/2021: Continue current plans and regimen. 10/14/21: Increase Clozaril to 125 mg bid EKG, CBCD, CMP 10/15 prior to chemotherapy 10/15/21: Continue current plan of care 10/16/21: Continue current plan. Tolerating Clozaril increase 10/17/21: Continue current regime. 10/18/21: Increase Clozaril to 150 mg bid Decrease Abilify to 20 mg daily ECT Consult I spent minutes with the patient and/or on the patient floor today, greater than?50% of which was spent counseling/coordinating care. Patient educated on: therapeutic strategies Informed Consent: further education needed Reason for contiued inpatient stay Substantial Risk for: harm to self, inability to function and rapid decompensation
[2021-10-18 14:31] VITALS: BP 119/74; PULSE 106
[2021-10-18] MEDS: cloZAPine 25 MG TABLET 150 MG PO (20:06)
[2021-10-18] MEDS: Atorvastatin Calcium 10 MG TABLET 5 MG PO (20:07)
[2021-10-18] MEDS: Docusate Sodium 100 MG CAPSULE PO (20:07)
[2021-10-18 20:20] VITALS: BP 150/94; PULSE 100; RESP 16; TEMP 35.7; O2SAT 97
[2021-10-19 06:16] LABS: Glucose, Whole Blood 122 mg/dL (60-115)
[2021-10-19] MEDS: Omeprazole 20 MG CAPSULE.DR PO (06:22)
[2021-10-19 09:00] VITALS: BP 125/80; PULSE 119; RESP 18; TEMP 36.3
[2021-10-19] MEDS: Cyanocobalamin (Vitamin B-12) 1,000 MCG TABLET 1000 MCG PO (09:53)
[2021-10-19] MEDS: Ascorbic Acid 500 MG TABLET 1000 MG PO (09:53)
[2021-10-19] MEDS: cloZAPine 25 MG TABLET 150 MG PO ×2 (09:54→20:49)
[2021-10-19] MEDS: cloNIDine HCL 0.1 MG TABLET PO ×3 (09:54→20:54)
[2021-10-19] MEDS: Multivitamin TABLET 1 TAB PO (09:54)
[2021-10-19] MEDS: buPROPion HCL 100 MG TABLET PO (09:54)
[2021-10-19] MEDS: Cholecalciferol (Vitamin D3) 10 MCG TABLET PO (09:54)
[2021-10-19] MEDS: Ferrous Sulfate 324 MG TABLET.DR PO (09:54)
[2021-10-19] MEDS: metFORMIN HCl 1,000 MG TABLET 1000 MG PO ×2 (09:54→20:54)
[2021-10-19] MEDS: Losartan Potassium 25 MG TABLET PO (09:54)
[2021-10-19] MEDS: ARIPiprazole 20 MG TABLET PO (09:54)
[2021-10-19 15:36] VITALS: BP 128/82; PULSE 133; RESP 16; TEMP 36.3; O2SAT 100
--- NOTE | 2021-10-19 16:34 | HO.PSYCHPN ---
Subjective Subjective Date of Service: 10/19/21 Reason For Visit: Depression paranoia Interim History: Patient seen and discussed with team. Per greenhouse staff, pt has delusional belief that hospital staff are poisoning her. Patient evaluated today and upon interview she reports Im feeling a little confused about what I did wrong, not able to elaborate on what she means. Says I think I slept last night. Feels safe.?Significant latency of speech. In the milieu, patient is safe but isolative in behavior. Medication Compliance: Yes Side effects from medications: No Attending Groups: No Review of Systems Acute medical concerns: No Medical Review of Systems: unchanged Mental Status Exam Mental Status Exam Narrative: Patient Appearance:?Appropriate Patient Orientation:?Person, Place, Time and Situation Level of Consciousness:?Alert Patient Behavior:?Guarded and Suspicious Mood Description:?Anxious Affect Description:?Flat Patient Cognition Impaired:?No Ability to Follow Directions:?Good Speech Pattern:?Perseverating, Difficulty Finding Words, Spontaneous Speech and Soft-Spoken Memory Description:?Episodic Impaired Delusions:?Paranoid Ideation Perceptual Disturbances:?Depersonalization and Derealization Thought Process:?Distracted, Rumination and Slowed Thinking Thought Content:?positive for Perseveration, positive for Suicidal Ideation (denies) and positive for Homicidal Ideation (denies) Depressive Symptoms:?Diff. Making Decisions and Difficulty Concentrating Judgement:?Poor Diagnostics Vital Signs (24Hr): Vital Signs - 24 hr 10/20/21 09:40 10/20/21 15:05 10/20/21 20:55 Temperature 97.8 F 97.7 F Pulse Rate 118 H 113 H 114 H Respiratory Rate 14 16 Blood Pressure 123/85 120/79 128/85 Pulse Oximetry 97 99 99 BMI result Body Mass Index 31.0 Labs Results: 10/15/21 08:07 10/15/21 08:08 Labs: Laboratory Results - last 48 hr 10/20/21 06:12 POC Glucose 112 Medications Medications Current Medications Acetaminophen (Acetaminophen 325 Mg Tablet) 650 mg PO Q6H PRN PRN Reason: Headache/Pain Mild Scale (1-3) Al Hydroxide/Mg Hydroxide (Magnesium Hydrox/Alum Hydrox 30 Ml Oral.Susp) 30 ml PO Q6H PRN PRN Reason: Heartburn/Nausea Last Admin: 10/02/21 14:41 Dose: 30 ml Documented by: Aripiprazole (Aripiprazole 20 Mg Tablet) 20 mg PO DAILY [facility] Last Admin: 10/20/21 09:34 Dose: 20 mg Documented by: Ascorbic Acid (Ascorbic Acid 500 Mg Tablet) 1,000 mg PO DAILY [facility] Last Admin: 10/20/21 09:34 Dose: 1,000 mg Documented by: Atorvastatin Calcium (Atorvastatin Calcium 10 Mg Tablet) 5 mg PO BEDTIME [facility] Last Admin: 10/20/21 20:52 Dose: 5 mg Documented by: Bupropion HCl (Bupropion Hcl 100 Mg Tablet) 100 mg PO DAILY [facility] Last Admin: 10/20/21 09:33 Dose: 100 mg Documented by: Clonidine HCl (Clonidine Hcl 0.1 Mg Tablet) 0.1 mg PO TID [facility]; Protocol Last Admin: 10/20/21 20:40 Dose: 0.1 mg Documented by: Clozapine (Clozapine 25 Mg Tablet) 150 mg PO BID [facility] Last Admin: 10/20/21 20:39 Dose: 150 mg Documented by: Cyanocobalamin (Cyanocobalamin (Vitamin B-12) 1,000 Mcg Tablet) 1,000 mcg PO DAILY [facility] Last Admin: 10/20/21 09:34 Dose: 1,000 mcg Documented by: Dexamethasone (Dexamethasone 4 Mg Tablet) 8 mg PO Tu@0800 [facility] Last Admin: 10/15/21 08:56 Dose: 8 mg Documented by: Docusate Sodium (Docusate Sodium 100 Mg Capsule) 100 mg PO BEDTIME [facility] Last Admin: 10/20/21 20:53 Dose: 100 mg Documented by: Ferrous Sulfate (Ferrous Sulfate 324 Mg Tablet.) 324 mg PO DAILY [facility] Last Admin: 10/20/21 09:34 Dose: 324 mg Documented by: Hydroxyzine HCl (Hydroxyzine Hcl 25 Mg Tablet) 25 mg PO BEDTIME PRN PRN Reason: Anxiety Lorazepam (Lorazepam 0.5 Mg Tablet) 0.5 mg PO Q4H PRN PRN Reason: anxiety, catatonia Last Admin: 10/13/21 21:09 Dose: 0.5 mg Documented by: Losartan Potassium (Losartan Potassium 25 Mg Tablet) 25 mg PO DAILY [facility]; Protocol Last Admin: 10/20/21 09:33 Dose: 25 mg Documented by: Magnesium Hydroxide (Milk Of Magnesia 30 Ml Oral.Susp) 30 ml PO DAILY PRN PRN Reason: Constipation Metformin HCl (Metformin Hcl 1,000 Mg Tablet) 1,000 mg PO BID [facility] Last Admin: 10/20/21 20:38 Dose: 1,000 mg Documented by: Multivitamins/Vitamin C (Multivitamin Tablet) 1 tab PO DAILY [facility] Last Admin: 10/20/21 09:34 Dose: 1 tab Documented by: Non-Formulary Medication (Cinnamon) 1,000 mg PO DAILY [facility] Last Admin: 10/20/21 09:33 Dose: 1,000 mg Documented by: Patient Own Medication ( Empagliflozin 10 Mg) 1 each PO DAILY [facility] Last Admin: 10/20/21 09:33 Dose: 1 each Documented by: Omeprazole (Omeprazole 20 Mg Capsule.Dr) 20 mg PO DAILY@0630 [facility] Last Admin: 10/20/21 09:34 Dose: 20 mg Documented by: Ondansetron HCl (Ondansetron Odt 8 Mg Tab.Rapdis) 8 mg TRANSLINGU Q8H PRN PRN Reason: nausea Trazodone HCl (Trazodone Hcl 50 Mg Tablet) 50 mg PO BEDTIME PRN PRN Reason: Insomnia Vitamin D (Cholecalciferol (Vitamin D3) 10 Mcg Tablet) 10 mcg PO DAILY [facility] Last Admin: 10/20/21 09:34 Dose: 10 mcg Documented by: Allergies Allergies Allergy/AdvReac Type Severity Reaction Status Date / Time lisinopril [LISINOPRIL] Allergy Unknown SWOLLEN Verified 09/17/21 08:42 LIPS, angioedema, swelling Assessment & Plan Assessment & Plan (1) Schizoaffective disorder: Status: Acute Code(s): F25.9 - Schizoaffective disorder, unspecified (2) Invasive ductal carcinoma of right breast: Status: Acute Code(s): C50.911 - Malignant neoplasm of unspecified site of right female breast (3) Hypertension: Qualifiers: Hypertension type: essential hypertension Qualified Code(s): I10 - Essential (primary) hypertension Status: Acute Code(s): I10 - Essential (primary) hypertension (4) Hypercholesterolemia: Status: Acute Code(s): E78.00 - Pure hypercholesterolemia, unspecified (5) Type 2 diabetes mellitus with hyperglycemia: Qualifiers: Diabetes mellitus consumer advocate insulin use: without halfway use Qualified Code(s): E11.65 - Type 2 diabetes mellitus with hyperglycemia Status: Acute Code(s): E11.65 - Type 2 diabetes mellitus with hyperglycemia Assessment and Plan: Continue metformin Jardiance not on formulary monitor point of care (6) GERD (gastroesophageal reflux disease): Qualifiers: Esophagitis presence: without esophagitis Qualified Code(s): K21.9 - Gastro-esophageal reflux disease without esophagitis Status: Acute Code(s): K21.9 - Gastro-esophageal reflux disease without esophagitis Plan 50 yo female, hx of schizoaffective disorder, depressed with R breast cancer, having just completed first cycle of chemotherapy. Pt's partner and sister report to crisis team that pt has had a significant mental status change with psychotic symptoms, paranoia, perceptual alterations, poor sleep and significant thought blocking. Pt denies SI, HI. Today she is a very poor historian-almost pre-catatonic at times, considering signing a three day notice of intent. Team report by history she may not be comfortable in this facility. Assessment plan for 09/21/2021 Continue current medical treatment elevated white blood count noted over the past month question related to cancer treatment. No evidence of infection Patient depressed withdrawn preoccupied patient with recent treatment for ductal carcinoma stress of this might certainly lead to depressive almost catatonic episode 09/22/21 Pt with thought blocking improved from yeterday have restarted wellbutin hosp did not have sr cont clozapine evaluate baseline denies self harm oob more 09/23/21 Continue current plan of care. Collateral contacts with OP team, oncology. 09/24/21 Increase Abilify to 30 mg daily Pt currently refusing Lorazepam TDN expires 09/25/21-will file for civil commitment if pt persists in wanting discharge 09/25/21 Civil commitment filing completed Continue current regime. 09/26/21 Continue current regime 09/27/32 Decrease Abilify to 20 mg daily Risperdal 1.5 mg HS 09/28/21 Continue plan as above 09/29/21 No changes 09/30/21 Court 10/01/21 Chemotherapy 10/01/21 Increase Risperdal to 2.5 mg HS Decrease Abilify to 10 mg daily 10/02/21 Tolerating change back to Abilify from Risperdal Appetite is improved. Calmer, more visable, however continues with paranoia Jardiance ordered from [facility] 10/03/21 Increase Abilify to 30 mg daily Will pursue validation of pt's HCP for continued chemotherapy Tentative chemotherapy 10/09. 10/04/21 Continue current regime 10/05 no changes to current regimen 10/06 no changes to current regimen 10/07/21 No positive effect from increase in Abilify Increase Clozaril to 100 mg bid, an increase of 50 mg daily, divided. Chemotherapy 10/09/21, Labs 10/08/21. 10/08/21 Tolerating Clozaril increase thus far Dexamethasone 4 mg hs and 4 mg a.m. pre chemo per Dr. Mora Support, encourage 10/09/21 Continue current plan of care 10/10/21 Continue current plan of care 10/11/21 Continue current plan. Will re-eval for Clozaril increase next week. 10/12/2021: Continue current regimen and plans. No changes were made today 10/13/2021: Continue current plans and regimen. 10/14/21: Increase Clozaril to 125 mg bid EKG, CBCD, CMP 10/15 prior to chemotherapy 10/15/21: Continue current plan of care 10/16/21: Continue current plan. Tolerating Clozaril increase 10/17/21: Continue current regime. 10/18/21: Increase Clozaril to 150 mg bid Decrease Abilify to 20 mg daily ECT Consult 10/19/21: continue meds unchanged I spent minutes with the patient and/or on the patient floor today, greater than?50% of which was spent counseling/coordinating care. Reason for contiued inpatient stay Substantial Risk for: inability to function, rapid decompensation and med/psych decompensation
[2021-10-19 20:50] VITALS: BP 124/78; PULSE 116; TEMP 36.2; O2SAT 97
[2021-10-19] MEDS: Atorvastatin Calcium 10 MG TABLET 5 MG PO (20:53)
[2021-10-19] MEDS: Docusate Sodium 100 MG CAPSULE PO (21:00)
[2021-10-20 06:27] LABS: Glucose, Whole Blood 112 mg/dL (60-115)
[2021-10-20] MEDS: Losartan Potassium 25 MG TABLET PO (09:33)
[2021-10-20] MEDS: cloZAPine 25 MG TABLET 150 MG PO ×2 (09:33→20:39)
[2021-10-20] MEDS: metFORMIN HCl 1,000 MG TABLET 1000 MG PO ×2 (09:33→20:38)
[2021-10-20] MEDS: buPROPion HCL 100 MG TABLET PO (09:33)
[2021-10-20] MEDS: Cyanocobalamin (Vitamin B-12) 1,000 MCG TABLET 1000 MCG PO (09:34)
[2021-10-20] MEDS: Ferrous Sulfate 324 MG TABLET.DR PO (09:34)
[2021-10-20] MEDS: Omeprazole 20 MG CAPSULE.DR PO (09:34)
[2021-10-20] MEDS: cloNIDine HCL 0.1 MG TABLET PO ×3 (09:34→20:40)
[2021-10-20] MEDS: Cholecalciferol (Vitamin D3) 10 MCG TABLET PO (09:34)
[2021-10-20] MEDS: Ascorbic Acid 500 MG TABLET 1000 MG PO (09:34)
[2021-10-20] MEDS: Multivitamin TABLET 1 TAB PO (09:34)
[2021-10-20] MEDS: ARIPiprazole 20 MG TABLET PO (09:34)
[2021-10-20 09:40] VITALS: BP 123/85; PULSE 118; RESP 14; TEMP 36.6; O2SAT 97
[2021-10-20 15:05] VITALS: BP 120/79; PULSE 113; RESP 16; O2SAT 99
--- NOTE | 2021-10-20 17:44 | P.PNPSI_ITS ---
Subjective Subjective Date of Service: 10/20/21 Reason For Visit: Depression paranoia Interim History: Patient seen and discussed with team. Per staff, she is more visible. Patient evaluated today and upon interview pt reports Im okay. Had two visitors today. Says she slept through the night. No questions or concerns. Says to Keep them the same for medications. Says she feels safe here.? In the milieu, patient is safe but mostly isolative, paranoid, not talkative in behavior. Medication Compliance: Yes Side effects from medications: No Attending Groups: No Review of Systems Acute medical concerns: No Medical Review of Systems: unchanged Mental Status Exam Mental Status Exam Narrative: Patient Appearance:?Appropriate Patient Orientation:?Person, Place, Time and Situation Level of Consciousness:?Alert Patient Behavior:?Guarded and Suspicious Mood Description:?Anxious Affect Description:?Flat Patient Cognition Impaired:?No Ability to Follow Directions:?Good Speech Pattern:?Perseverating, Difficulty Finding Words, Spontaneous Speech and Soft-Spoken Memory Description:?Episodic Impaired Delusions:?Paranoid Ideation Perceptual Disturbances:?Depersonalization and Derealization Thought Process:?Distracted, Rumination and Slowed Thinking Thought Content:?positive for Perseveration, positive for Suicidal Ideation (denies) and positive for Homicidal Ideation (denies) Depressive Symptoms:?Diff. Making Decisions and Difficulty Concentrating Judgement:?Poor Diagnostics Vital Signs (24Hr): Vital Signs - 24 hr 10/20/21 09:40 10/20/21 15:05 10/20/21 20:55 Temperature 97.8 F 97.7 F Pulse Rate 118 H 113 H 114 H Respiratory Rate 14 16 Blood Pressure 123/85 120/79 128/85 Pulse Oximetry 97 99 99 10/21/21 07:56 Temperature 97.6 F Pulse Rate 120 H Respiratory Rate 16 Blood Pressure 122/77 Pulse Oximetry 97 BMI result Body Mass Index 31.0 Labs Results: 10/15/21 08:07 10/15/21 08:08 Labs: Laboratory Results - last 48 hr 10/20/21 10/21/21 06:12 06:33 POC Glucose 112 146 H Medications Medications Current Medications Acetaminophen (Acetaminophen 325 Mg Tablet) 650 mg PO Q6H PRN PRN Reason: Headache/Pain Mild Scale (1-3) Al Hydroxide/Mg Hydroxide (Magnesium Hydrox/Alum Hydrox 30 Ml Oral.Susp) 30 ml PO Q6H PRN PRN Reason: Heartburn/Nausea Last Admin: 10/02/21 14:41 Dose: 30 ml Documented by: Aripiprazole (Aripiprazole 20 Mg Tablet) 20 mg PO DAILY [facility] Last Admin: 10/20/21 09:34 Dose: 20 mg Documented by: Ascorbic Acid (Ascorbic Acid 500 Mg Tablet) 1,000 mg PO DAILY [facility] Last Admin: 10/20/21 09:34 Dose: 1,000 mg Documented by: Atorvastatin Calcium (Atorvastatin Calcium 10 Mg Tablet) 5 mg PO BEDTIME [facility] Last Admin: 10/20/21 20:52 Dose: 5 mg Documented by: Bupropion HCl (Bupropion Hcl 100 Mg Tablet) 100 mg PO DAILY [facility] Last Admin: 10/20/21 09:33 Dose: 100 mg Documented by: Clonidine HCl (Clonidine Hcl 0.1 Mg Tablet) 0.1 mg PO TID [facility]; Protocol Last Admin: 10/20/21 20:40 Dose: 0.1 mg Documented by: Clozapine (Clozapine 25 Mg Tablet) 150 mg PO BID [facility] Last Admin: 10/20/21 20:39 Dose: 150 mg Documented by: Cyanocobalamin (Cyanocobalamin (Vitamin B-12) 1,000 Mcg Tablet) 1,000 mcg PO DAILY [facility] Last Admin: 10/20/21 09:34 Dose: 1,000 mcg Documented by: Dexamethasone (Dexamethasone 4 Mg Tablet) 8 mg PO Tu@0800 [facility] Last Admin: 10/15/21 08:56 Dose: 8 mg Documented by: Docusate Sodium (Docusate Sodium 100 Mg Capsule) 100 mg PO BEDTIME [facility] Last Admin: 10/20/21 20:53 Dose: 100 mg Documented by: Ferrous Sulfate (Ferrous Sulfate 324 Mg Tablet.) 324 mg PO DAILY [facility] Last Admin: 10/20/21 09:34 Dose: 324 mg Documented by: Hydroxyzine HCl (Hydroxyzine Hcl 25 Mg Tablet) 25 mg PO BEDTIME PRN PRN Reason: Anxiety Lorazepam (Lorazepam 0.5 Mg Tablet) 0.5 mg PO Q4H PRN PRN Reason: anxiety, catatonia Last Admin: 10/13/21 21:09 Dose: 0.5 mg Documented by: Losartan Potassium (Losartan Potassium 25 Mg Tablet) 25 mg PO DAILY [facility]; Protocol Last Admin: 10/20/21 09:33 Dose: 25 mg Documented by: Magnesium Hydroxide (Milk Of Magnesia 30 Ml Oral.Susp) 30 ml PO DAILY PRN PRN Reason: Constipation Metformin HCl (Metformin Hcl 1,000 Mg Tablet) 1,000 mg PO BID [facility] Last Admin: 10/20/21 20:38 Dose: 1,000 mg Documented by: Multivitamins/Vitamin C (Multivitamin Tablet) 1 tab PO DAILY [facility] Last Admin: 10/20/21 09:34 Dose: 1 tab Documented by: Non-Formulary Medication (Cinnamon) 1,000 mg PO DAILY [facility] Last Admin: 10/20/21 09:33 Dose: 1,000 mg Documented by: Patient Own Medication ( Empagliflozin 10 Mg) 1 each PO DAILY [facility] Last Admin: 10/20/21 09:33 Dose: 1 each Documented by: Omeprazole (Omeprazole 20 Mg Capsule.Dr) 20 mg PO DAILY@0630 [facility] Last Admin: 10/21/21 06:50 Dose: 20 mg Documented by: Ondansetron HCl (Ondansetron Odt 8 Mg Tab.Rapdis) 8 mg TRANSLINGU Q8H PRN PRN Reason: nausea Trazodone HCl (Trazodone Hcl 50 Mg Tablet) 50 mg PO BEDTIME PRN PRN Reason: Insomnia Vitamin D (Cholecalciferol (Vitamin D3) 10 Mcg Tablet) 10 mcg PO DAILY [facility] Last Admin: 10/20/21 09:34 Dose: 10 mcg Documented by: Allergies Allergies Allergy/AdvReac Type Severity Reaction Status Date / Time lisinopril [LISINOPRIL] Allergy Unknown SWOLLEN Verified 09/17/21 08:42 LIPS, angioedema, swelling Assessment & Plan Assessment & Plan (1) Schizoaffective disorder: Status: Acute Code(s): F25.9 - Schizoaffective disorder, unspecified (2) Invasive ductal carcinoma of right breast: Status: Acute Code(s): C50.911 - Malignant neoplasm of unspecified site of right female breast (3) Hypertension: Qualifiers: Hypertension type: essential hypertension Qualified Code(s): I10 - Essential (primary) hypertension Status: Acute Code(s): I10 - Essential (primary) hypertension (4) Hypercholesterolemia: Status: Acute Code(s): E78.00 - Pure hypercholesterolemia, unspecified (5) Type 2 diabetes mellitus with hyperglycemia: Qualifiers: Diabetes mellitus medical terminologist insulin use: without medical terminologist use Qualified Code(s): E11.65 - Type 2 diabetes mellitus with hyperglycemia Status: Acute Code(s): E11.65 - Type 2 diabetes mellitus with hyperglycemia Assessment and Plan: Continue metformin Jardiance not on formulary monitor point of care (6) GERD (gastroesophageal reflux disease): Qualifiers: Esophagitis presence: without esophagitis Qualified Code(s): K21.9 - Gastro-esophageal reflux disease without esophagitis Status: Acute Code(s): K21.9 - Gastro-esophageal reflux disease without esophagitis Plan 50 yo female, hx of schizoaffective disorder, depressed with R breast cancer, having just completed first cycle of chemotherapy. Pt's partner and sister rep ort to crisis team that pt has had a significant mental status change with psychotic symptoms, paranoia, perceptual alterations, poor sleep and significant thought blocking. Pt denies SI, HI. Today she is a very poor historian-almost pre-catatonic at times, considering signing a three day notice of intent. Team report by history she may not be comfortable in this facility. Assessment plan for 09/21/2021 Continue current medical treatment elevated white blood count noted over the past month question related to cancer treatment. No evidence of infection Patient depressed withdrawn preoccupied patient with recent treatment for ductal carcinoma stress of this might certainly lead to depressive almost catatonic episode 09/22/21 Pt with thought blocking improved from yeterday have restarted wellbutin hosp did not have sr cont clozapine evaluate baseline denies self harm oob more 09/23/21 Continue current plan of care. Collateral contacts with OP team, oncology. 09/24/21 Increase Abilify to 30 mg daily Pt currently refusing Lorazepam TDN expires 09/25/21-will file for civil commitment if pt persists in wanting discharge 09/25/21 Civil commitment filing completed Continue current regime. 09/26/21 Continue current regime 09/27/32 Decrease Abilify to 20 mg daily Risperdal 1.5 mg HS 09/28/21 Continue plan as above 09/29/21 No changes 09/30/21 Court 10/01/21 Chemotherapy 10/01/21 Increase Risperdal to 2.5 mg HS Decrease Abilify to 10 mg daily 10/02/21 Tolerating change back to Abilify from Risperdal Appetite is improved. Calmer, more visable, however continues with paranoia Jardiance ordered from [facility] 10/03/21 Increase Abilify to 30 mg daily Will pursue validation of pt's HCP for continued chemotherapy Tentative chemotherapy 10/09. 10/04/21 Continue current regime 10/05 no changes to current regimen 10/06 no changes to current regimen 10/07/21 No positive effect from increase in Abilify Increase Clozaril to 100 mg bid, an increase of 50 mg daily, divided. Chemotherapy 10/09/21, Labs 10/08/21. 10/08/21 Tolerating Clozaril increase thus far Dexamethasone 4 mg hs and 4 mg a.m. pre chemo per Dr. Mora Support, encourage 10/09/21 Continue current plan of care 10/10/21 Continue current plan of care 10/11/21 Continue current plan. Will re-eval for Clozaril increase next week. 10/12/2021: Continue current regimen and plans. No changes were made today 10/13/2021: Continue current plans and regimen. 10/14/21: Increase Clozaril to 125 mg bid EKG, CBCD, CMP 10/15 prior to chemotherapy 10/15/21: Continue current plan of care 10/16/21: Continue current plan. Tolerating Clozaril increase 10/17/21: Continue current regime. 10/18/21: Increase Clozaril to 150 mg bid Decrease Abilify to 20 mg daily ECT Consult 10/19/21: continue meds unchanged 10/20/21: pt continue to present as paranoid, withdrawn I spent minutes with the patient and/or on the patient floor today, greater than?50% of which was spent counseling/coordinating care. Reason for contiued inpatient stay Substantial Risk for: inability to function, rapid decompensation and med/psych decompensation
[2021-10-20] MEDS: Atorvastatin Calcium 10 MG TABLET 5 MG PO (20:52)
[2021-10-20] MEDS: Docusate Sodium 100 MG CAPSULE PO (20:53)
[2021-10-20 20:55] VITALS: BP 128/85; PULSE 114; TEMP 36.5; O2SAT 99
[2021-10-21 06:38] LABS: Glucose, Whole Blood 146 mg/dL (60-115)
[2021-10-21] MEDS: Omeprazole 20 MG CAPSULE.DR PO (06:50)
[2021-10-21 07:56] VITALS: BP 122/77; PULSE 120; RESP 16; TEMP 36.4; O2SAT 97
[2021-10-21] MEDS: ARIPiprazole 20 MG TABLET PO (08:48)
[2021-10-21] MEDS: Multivitamin TABLET 1 TAB PO (08:48)
[2021-10-21] MEDS: cloNIDine HCL 0.1 MG TABLET PO ×3 (08:48→20:48)
[2021-10-21] MEDS: Losartan Potassium 25 MG TABLET PO (08:48)
[2021-10-21] MEDS: buPROPion HCL 100 MG TABLET PO (08:49)
[2021-10-21] MEDS: Ferrous Sulfate 324 MG TABLET.DR PO (08:49)
[2021-10-21] MEDS: Cyanocobalamin (Vitamin B-12) 1,000 MCG TABLET 1000 MCG PO (08:49)
[2021-10-21] MEDS: Cholecalciferol (Vitamin D3) 10 MCG TABLET PO (08:49)
[2021-10-21] MEDS: metFORMIN HCl 1,000 MG TABLET 1000 MG PO ×2 (08:49→20:48)
[2021-10-21] MEDS: cloZAPine 25 MG TABLET 150 MG PO ×2 (08:49→20:47)
[2021-10-21] MEDS: Ascorbic Acid 500 MG TABLET 1000 MG PO (08:49)
[2021-10-21 13:00] VITALS: BP 137/77; PULSE 120
--- NOTE | 2021-10-21 16:45 | HO.PSYCHPN ---
Subjective Subjective Date of Service: 10/21/21 Reason For Visit: Depression paranoia Subjective Notes: Section 8 Healthcare Proxy: No Guardianship: No Medical Problems Affecting Mental Status: Yes Interim History: I am OK. You can focus more on working with my fears, are you sure I am not going to retirement? Sabra is in the milieu, available, seems to have an easier time talking, with less latency and paucity of her speech. Clozaril was raised on 10/18, today we reviewed titrations and she reports, yes, Dr. Zuñiga was going to increase it, but we did not get a chance. ECT consult ordered 10/18. Discussed in team-if further changes in meds need to be made legal team reports we may utilized HCP vs a return to court. Discussed with pt who is comfortable with this plan-states she still believes she will go to retirement, no matter what is done. Denies fears that she is being poisoned with medications here. Reports she feels she is tolerating chemotherapy well-states she vomited once on 10/17 and this was an improvement over the first regime. Medication Compliance: Yes Side effects from medications: No Attending Groups: Intermittent Review of Systems Breast cancer with chemotherapy in process. Medical Review of Systems: unchanged Review of Systems Reports confusion Psychiatric: Reports anxiety, Reports confusion, Reports depression, Reports difficulty concentrating, Reports hopelessness, Reports anhedonia, Reports paranoia and Reports suicidal ideation (denies) Mental Status Exam Mental Status Exam Patient Appearance: Appropriate Patient Orientation: Person, Place, Time and Situation Level of Consciousness: Alert Patient Behavior: Guarded, Talkative, Cooperative, Passive, Suspicious, Anxious, Fearful, Distractible, Good Eye Contact and Poor Eye Contact Mood Description: Flat Affect Description: Flat Patient Cognition Impaired: No Ability to Follow Directions: Good Speech Pattern: Spontaneous Speech, Soft-Spoken, Delayed and Long Pauses Memory Description: Intact Hallucinations: None Delusions: Paranoid Ideation Perceptual Disturbances: Depersonalization and Derealization Thought Process: Distracted, Rumination and Slowed Thinking Thought Content: positive for [place], positive for Perseveration and positive for Suicidal Ideation (denies) Depressive Symptoms: Unhappiness and Thoughts of /Suicide (denies) Judgement: Poor Diagnostics Vital Signs (24Hr): Vital Signs - 24 hr 10/20/21 20:55 10/21/21 07:56 10/21/21 13:00 Temperature 97.7 F 97.6 F Pulse Rate 114 H 120 H 120 H Respiratory Rate 16 Blood Pressure 128/85 122/77 137/77 Pulse Oximetry 99 97 BMI result Body Mass Index 31.0 Labs Results: 10/15/21 08:07 10/15/21 08:08 Labs: Laboratory Results - last 48 hr 10/20/21 10/21/21 06:12 06:33 POC Glucose 112 146 H Medications Medications Current Medications Acetaminophen (Acetaminophen 325 Mg Tablet) 650 mg PO Q6H PRN PRN Reason: Headache/Pain Mild Scale (1-3) Al Hydroxide/Mg Hydroxide (Magnesium Hydrox/Alum Hydrox 30 Ml Oral.Susp) 30 ml PO Q6H PRN PRN Reason: Heartburn/Nausea Last Admin: 10/02/21 14:41 Dose: 30 ml Documented by: Aripiprazole (Aripiprazole 20 Mg Tablet) 20 mg PO DAILY [facility] Last Admin: 10/21/21 08:48 Dose: 20 mg Documented by: Ascorbic Acid (Ascorbic Acid 500 Mg Tablet) 1,000 mg PO DAILY [facility] Last Admin: 10/21/21 08:49 Dose: 1,000 mg Documented by: Atorvastatin Calcium (Atorvastatin Calcium 10 Mg Tablet) 5 mg PO BEDTIME [facility] Last Admin: 10/20/21 20:52 Dose: 5 mg Documented by: Bupropion HCl (Bupropion Hcl 100 Mg Tablet) 100 mg PO DAILY [facility] Last Admin: 10/21/21 08:49 Dose: 100 mg Documented by: Clonidine HCl (Clonidine Hcl 0.1 Mg Tablet) 0.1 mg PO TID [facility]; Protocol Last Admin: 10/21/21 14:00 Dose: 0.1 mg Documented by: Clozapine (Clozapine 25 Mg Tablet) 150 mg PO BID [facility] Last Admin: 10/21/21 08:49 Dose: 150 mg Documented by: Cyanocobalamin (Cyanocobalamin (Vitamin B-12) 1,000 Mcg Tablet) 1,000 mcg PO DAILY [facility] Last Admin: 10/21/21 08:49 Dose: 1,000 mcg Documented by: Dexamethasone (Dexamethasone 4 Mg Tablet) 8 mg PO Tu@0800 [facility] Last Admin: 10/15/21 08:56 Dose: 8 mg Documented by: Docusate Sodium (Docusate Sodium 100 Mg Capsule) 100 mg PO BEDTIME [facility] Last Admin: 10/20/21 20:53 Dose: 100 mg Documented by: Ferrous Sulfate (Ferrous Sulfate 324 Mg Tablet.) 324 mg PO DAILY [facility] Last Admin: 10/21/21 08:49 Dose: 324 mg Documented by: Hydroxyzine HCl (Hydroxyzine Hcl 25 Mg Tablet) 25 mg PO BEDTIME PRN PRN Reason: Anxiety Lorazepam (Lorazepam 0.5 Mg Tablet) 0.5 mg PO Q4H PRN PRN Reason: anxiety, catatonia Last Admin: 10/13/21 21:09 Dose: 0.5 mg Documented by: Losartan Potassium (Losartan Potassium 25 Mg Tablet) 25 mg PO DAILY [facility]; Protocol Last Admin: 10/21/21 08:48 Dose: 25 mg Documented by: Magnesium Hydroxide (Milk Of Magnesia 30 Ml Oral.Susp) 30 ml PO DAILY PRN PRN Reason: Constipation Metformin HCl (Metformin Hcl 1,000 Mg Tablet) 1,000 mg PO BID [facility] Last Admin: 10/21/21 08:49 Dose: 1,000 mg Documented by: Multivitamins/Vitamin C (Multivitamin Tablet) 1 tab PO DAILY [facility] Last Admin: 10/21/21 08:48 Dose: 1 tab Documented by: Non-Formulary Medication (Cinnamon) 1,000 mg PO DAILY [facility] Last Admin: 10/21/21 08:49 Dose: 1,000 mg Documented by: Patient Own Medication ( Empagliflozin 10 Mg) 1 each PO DAILY [facility] Last Admin: 10/21/21 08:49 Dose: 1 each Documented by: Omeprazole (Omeprazole 20 Mg Capsule.) 20 mg PO DAILY@0630 [facility] Last Admin: 10/21/21 06:50 Dose: 20 mg Documented by: Ondansetron HCl (Ondansetron Odt 8 Mg Tab.Rapdis) 8 mg TRANSLINGU Q8H PRN PRN Reason: nausea Trazodone HCl (Trazodone Hcl 50 Mg Tablet) 50 mg PO BEDTIME PRN PRN Reason: Insomnia Vitamin D (Cholecalciferol (Vitamin D3) 10 Mcg Tablet) 10 mcg PO DAILY [facility] Last Admin: 10/21/21 08:49 Dose: 10 mcg Documented by: Allergies Allergies Allergy/AdvReac Type Severity Reaction Status Date / Time lisinopril [LISINOPRIL] Allergy Unknown SWOLLEN Verified 09/17/21 08:42 LIPS, angioedema, swelling Assessment & Plan Assessment & Plan (1) Schizoaffective disorder: Status: Acute Code(s): F25.9 - Schizoaffective disorder, unspecified (2) Invasive ductal carcinoma of right breast: Status: Acute Code(s): C50.911 - Malignant neoplasm of unspecified site of right female breast (3) Hypertension: Qualifiers: Hypertension type: essential hypertension Qualified Code(s): I10 - Essential (primary) hypertension Status: Acute Code(s): I10 - Essential (primary) hypertension (4) Hypercholesterolemia: Status: Acute Code(s): E78.00 - Pure hypercholesterolemia, unspecified (5) Type 2 diabetes mellitus with hyperglycemia: Qualifiers: Diabetes mellitus [facility] insulin use: without termite treater helper use Qualified Code(s): E11.65 - Type 2 diabetes mellitus with hyperglycemia Status: Acute Code(s): E11.65 - Type 2 diabetes mellitus with hyperglycemia Assessment and Plan: Continue metformin Jardiance not on formulary monitor point of care (6) GERD (gastroesophageal reflux disease): Qualifiers: Esophagitis presence: without esophagitis Qualified Code(s): K21.9 - Gastro-esophageal reflux disease without esophagitis Status: Acute Code(s): K21.9 - Gastro-esophageal reflux disease without esophagitis Plan 50 yo female, hx of schizoaffective disorder, depressed with R breast cancer, having just completed first cycle of chemotherapy. Pt's partner and sister report to crisis team that pt has had a significant mental status change with psychotic symptoms, paranoia, perceptual alterations, poor sleep and significant thought blocking. Pt denies SI, HI. Today she is a very poor historian-almost pre-catatonic at times, considering signing a three day notice of intent. Team report by history she may not be comfortable in this facility. Assessment plan for 09/21/2021 Continue current medical treatment elevated white blood count noted over the past month question related to cancer treatment. No evidence of infection Patient depressed withdrawn preoccupied patient with recent treatment for ductal carcinoma stress of this might certainly lead to depressive almost catatonic episode 09/22/21 Pt with thought blocking improved from yeterday have restarted wellbutin hosp did not have sr cont clozapine evaluate baseline denies self harm oob more 09/23/21 Continue current plan of care. Collateral contacts with OP team, oncology. 09/24/21 Increase Abilify to 30 mg daily Pt currently refusing Lorazepam TDN expires 09/25/21-will file for civil commitment if pt persists in wanting discharge 09/25/21 Civil commitment filing completed Continue current regime. 09/26/21 Continue current regime 09/27/32 Decrease Abilify to 20 mg daily Risperdal 1.5 mg HS 09/28/21 Continue plan as above 09/29/21 No changes 09/30/21 Court 10/01/21 Chemotherapy 10/01/21 Increase Risperdal to 2.5 mg HS Decrease Abilify to 10 mg daily 10/02/21 Tolerating change back to Abilify from Risperdal Appetite is improved. Calmer, more visable, however continues with paranoia Jardiance ordered from [facility] 10/03/21 Increase Abilify to 30 mg daily Will pursue validation of pt's HCP for continued chemotherapy Tentative chemotherapy 10/09. 10/04/21 Continue current regime 10/05 no changes to current regimen 10/06 no changes to current regimen 10/07/21 No positive effect from increase in Abilify Increase Clozaril to 100 mg bid, an increase of 50 mg daily, divided. Chemotherapy 10/09/21, Labs 10/08/21. 10/08/21 Tolerating Clozaril increase thus far Dexamethasone 4 mg hs and 4 mg a.m. pre chemo per Dr. Mora Support, encourage 10/09/21 Continue current plan of care 10/10/21 Continue current plan of care 10/11/21 Continue current plan. Will re-eval for Clozaril increase next week. 10/12/2021: Continue current regimen and plans. No changes were made today 10/13/2021: Continue current plans and regimen. 10/14/21: Increase Clozaril to 125 mg bid EKG, CBCD, CMP 10/15 prior to chemotherapy 10/15/21: Continue current plan of care 10/16/21: Continue current plan. Tolerating Clozaril increase 10/17/21: Continue current regime. 10/18/21: Increase Clozaril to 150 mg bid Decrease Abilify to 20 mg daily ECT Consult 10/19/21: continue meds unchanged 10/20/21: pt continue to present as paranoid, withdrawn 10/21/21: Continue current regime. Labs/EKG 10/22. Some improvement today. I spent minutes with the patient and/or on the patient floor today, greater than?50% of which was spent counseling/coordinating care. Patient educated on: medication risk/benefits and therapeutic strategies Informed Consent: further education needed Reason for contiued inpatient stay Substantial Risk for: harm to self, inability to function, rapid decompensation and med/psych decompensation
[2021-10-21 20:30] VITALS: BP 128/81; PULSE 125; TEMP 36.3; O2SAT 99
[2021-10-21] MEDS: Docusate Sodium 100 MG CAPSULE PO (20:47)
[2021-10-21] MEDS: Atorvastatin Calcium 10 MG TABLET 5 MG PO (20:47)
--- NOTE | 2021-10-21 23:20 | PC.NURSE ---
Patient was reluctant to take her HS medications and stated I don't really think I need them . This chief writer encouraged patient to take the medications tonight and discuss options with her provider tomorrow. Patient agreed and after 15 minutes took all of the medications.
[2021-10-22] MEDS: Omeprazole 20 MG CAPSULE.DR PO (06:24)
[2021-10-22 09:15] LABS: MANUAL DIFF FLAG NO
[2021-10-22 09:19] LABS: Glucose, Whole Blood 145 mg/dL (60-115)
[2021-10-22 09:23] LABS: Basophils Percent Auto 0.2 % (0-2); Eosinophils Absolute Auto 0.1 X10*3/uL (0.0-0.4); Eosinophils Percent Auto 0.8 % (0-4); Hemoglobin 12.7 g/dl (12.0-16.0); Imm Gran Abs Auto 0.06 X10*3/uL (0.00-0.03); Imm Gran Pct Auto 0.7 % (0.0-0.4); Lymphocytes Absolute Auto 1.5 X10*3/uL (1.2-4.9); Lymphocytes Percent Auto 17.7 % (20-40); Mean Corpuscular HGB Conc 33.4 g/dl (31.0-35.0); Mean Corpuscular Hemoglobin 30.5 pg (27.0-33.0); Mean Corpuscular Volume 91.3 fL (80.0-98.0); Mean Platelet Volume 10.2 fL (9.4-12.3); Monocytes Absolute Auto 0.3 X10*3/uL (0.1-1.2); Monocytes Percent Auto 3.9 % (2-11); Neut%MD 76.7 %; Neutrophils Absolute Auto 6.6 x10*3/uL (2.0-8.3); Neutrophils Percent Auto 76.7 % (45-73); Platelet Count 316 X10*3/uL (160-400); Red Blood Count 4.16 X10*6/uL (4.20-5.50); Red Cell Distribution Width 15.9 % (11.0-16.0); WBCANC 8.6 X10*3/uL; White Blood Count 8.6 X10*3/uL (4.8-10.8)
[2021-10-22 09:38] LABS: Alanine Aminotransferase 42 U/L (0-31); Albumin Level 4.4 g/dL (3.5-5.0); Alkaline Phosphatase 110 U/L (39-117); Anion Gap 15 (12-20); Aspartate Amino Transferase 28 U/L (5-31); Bilirubin Total 0.6 mg/dL (0.0-1.0); Blood Urea Nitrogen 11 mg/dL (9-16); Calcium 9.7 mg/dL (8.4-10.2); Carbon Dioxide 22 mmol/L (22-29); Chloride 109 mmol/L (96-108); Creatinine Clr Calc Pharmacy 82.8; Estimated Glomerular Filt Rate > 60; Glucose Random 165 mg/dL (60-115); Potassium 3.9 mmol/L (3.3-5.1); Sodium 142 mmol/L (135-145)
[2021-10-22] MEDS: buPROPion HCL 100 MG TABLET PO (09:50)
[2021-10-22] MEDS: Cholecalciferol (Vitamin D3) 10 MCG TABLET PO (09:50)
[2021-10-22] MEDS: Multivitamin TABLET 1 TAB PO (09:50)
[2021-10-22] MEDS: Ferrous Sulfate 324 MG TABLET.DR PO (09:50)
[2021-10-22] MEDS: Cyanocobalamin (Vitamin B-12) 1,000 MCG TABLET 1000 MCG PO (09:51)
[2021-10-22] MEDS: dexAMETHasone 4 MG TABLET 8 MG PO (09:51)
[2021-10-22] MEDS: cloZAPine 25 MG TABLET 150 MG PO ×2 (09:51→21:07)
[2021-10-22] MEDS: metFORMIN HCl 1,000 MG TABLET 1000 MG PO ×2 (09:52→21:08)
[2021-10-22] MEDS: ARIPiprazole 20 MG TABLET PO (09:52)
[2021-10-22] MEDS: Ascorbic Acid 500 MG TABLET 1000 MG PO (09:52)
[2021-10-22] MEDS: cloNIDine HCL 0.1 MG TABLET PO ×3 (09:52→21:08)
[2021-10-22] MEDS: Losartan Potassium 25 MG TABLET PO (09:53)
--- NOTE | 2021-10-22 10:00 | ECG_ITS ---
Test Reason : pre chemo Blood Pressure : / mmHG Vent. Rate : 114 BPM Atrial Rate : 114 BPM P-R Int : 140 ms QRS Dur : 072 ms QT Int : 304 ms P-R-T Axes : 044 060 -10 degrees QTc Int : 419 ms Sinus tachycardia Nonspecific ST and T wave abnormality Abnormal ECG When compared with ECG of 15-OCT-2021 13:30, No significant change was found Referred By: Marci Jones Electronically Signed By:ESDRAS WATERS
[2021-10-22 11:41] VITALS: BP 113/78; PULSE 100; RESP 16; TEMP 36; O2SAT 97
[2021-10-22 13:00] VITALS: BP 136/81; PULSE 101
--- NOTE | 2021-10-22 18:26 | HO.PSYCHPN ---
Subjective Subjective Date of Service: 10/22/21 Reason For Visit: Depression paranoia Subjective Notes: Section 8 Healthcare Proxy: Yes Guardianship: No Medical Problems Affecting Mental Status: No Interim History: Continues to struggle with symptoms of depression, psychosis, guilt, feeling of burden. ECT consult pending. Care discussed today with pt's partner and HCP Kailey. Meeting 10/24 10:30a.m to discuss medication alternatives as Clozaril now at 150 mg bid, double the dose from admission, has not had any lasting positive effect. Kailey and pt's sister will attend. Currently, Clozaril with increased QTC prolongation risk when combined with chemotherapy regime. QTC today 419. Other med options available which do not prolong QTC will be discussed. Medication Compliance: Yes Side effects from medications: No Attending Groups: Intermittent Review of Systems Breast cancer, chemotherapy in process. Medical Review of Systems: unchanged Review of Systems Reports confusion Psychiatric: Reports anxiety, Reports confusion, Reports depression, Reports difficulty concentrating, Reports hopelessness, Reports anhedonia, Reports paranoia and Reports suicidal ideation (denies) Mental Status Exam Mental Status Exam Patient Appearance: Appropriate Patient Orientation: Person, Place, Time and Situation Level of Consciousness: Alert Patient Behavior: Guarded, Talkative, Cooperative, Passive, Suspicious, Anxious, Fearful, Distractible, Good Eye Contact and Poor Eye Contact Mood Description: Flat Affect Description: Flat Patient Cognition Impaired: No Ability to Follow Directions: Good Speech Pattern: Spontaneous Speech, Soft-Spoken, Delayed and Long Pauses Memory Description: Intact Hallucinations: None Delusions: Paranoid Ideation Perceptual Disturbances: Depersonalization and Derealization Thought Process: Distracted, Rumination and Slowed Thinking Thought Content: positive for [place], positive for Perseveration and positive for Suicidal Ideation (denies) Depressive Symptoms: Unhappiness and Thoughts of /Suicide (denies) Judgement: Poor Diagnostics Vital Signs (24Hr): Vital Signs - 24 hr 10/21/21 20:30 10/22/21 11:41 10/22/21 13:00 Temperature 97.3 F 96.8 F Pulse Rate 125 H 100 101 H Respiratory Rate 16 Blood Pressure 128/81 113/78 136/81 Pulse Oximetry 99 97 BMI result Body Mass Index 31.0 Labs Results: 10/22/21 09:07 10/22/21 09:07 Labs: Laboratory Results - last 48 hr 10/21/21 10/22/21 10/22/21 06:33 09:07 09:07 WBC 8.6 RBC 4.16 L Hgb 12.7 Hct 38.0 MCV 91.3 MCH 30.5 MCHC 33.4 RDW 15.9 Plt Count 316 MPV 10.2 Immature Gran % (Auto) 0.7 H Neut % (Auto) 76.7 H Lymph % (Auto) 17.7 L [place] % (Auto) 3.9 Eos % (Auto) 0.8 Baso % (Auto) 0.2 Lymph # (Auto) 1.5 [place] # (Auto) 0.3 Eos # (Auto) 0.1 Baso # (Auto) 0.0 Abs Immat Gran (auto) 0.06 H Absolute Neuts (auto) Cancelled 6.6 Absolute Nucleated RBC 0.000 Nucleated RBC % (auto) 0.0 Sodium Potassium Chloride Carbon Dioxide Anion Gap BUN Creatinine Estim Creat Clear Calc Estimated GFR POC Glucose 146 H Random Glucose Calcium Total Bilirubin AST ALT Alkaline Phosphatase Total Protein Albumin 10/22/21 10/22/21 09:07 09:13 WBC RBC Hgb Hct MCV MCH MCHC RDW Plt Count MPV Immature Gran % (Auto) Neut % (Auto) Lymph % (Auto) [place] % (Auto) Eos % (Auto) Baso % (Auto) Lymph # (Auto) [place] # (Auto) Eos # (Auto) Baso # (Auto) Abs Immat Gran (auto) Absolute Neuts (auto) Absolute Nucleated RBC Nucleated RBC % (auto) Sodium 142 Potassium 3.9 Chloride 109 H Carbon Dioxide 22 Anion Gap 15 BUN 11 Creatinine 0.78 Estim Creat Clear Calc 82.8 Estimated GFR > 60 POC Glucose 145 H Random Glucose 165 H Calcium 9.7 Total Bilirubin 0.6 AST 28 ALT 42 H Alkaline Phosphatase 110 Total Protein 7.0 Albumin 4.4 Medications Medications Current Medications Acetaminophen (Acetaminophen 325 Mg Tablet) 650 mg PO Q6H PRN PRN Reason: Headache/Pain Mild Scale (1-3) Al Hydroxide/Mg Hydroxide (Magnesium Hydrox/Alum Hydrox 30 Ml Oral.Susp) 30 ml PO Q6H PRN PRN Reason: Heartburn/Nausea Last Admin: 10/02/21 14:41 Dose: 30 ml Documented by: Aripiprazole (Aripiprazole 20 Mg Tablet) 20 mg PO DAILY MYRTLE Last Admin: 10/22/21 09:52 Dose: 20 mg Documented by: Ascorbic Acid (Ascorbic Acid 500 Mg Tablet) 1,000 mg PO DAILY [facility] Last Admin: 10/22/21 09:52 Dose: 1,000 mg Documented by: Atorvastatin Calcium (Atorvastatin Calcium 10 Mg Tablet) 5 mg PO BEDTIME [facility] Last Admin: 10/21/21 20:47 Dose: 5 mg Documented by: Bupropion HCl (Bupropion Hcl 100 Mg Tablet) 100 mg PO DAILY [facility] Last Admin: 10/22/21 09:50 Dose: 100 mg Documented by: Clonidine HCl (Clonidine Hcl 0.1 Mg Tablet) 0.1 mg PO TID [facility]; Protocol Last Admin: 10/22/21 14:50 Dose: 0.1 mg Documented by: Clozapine (Clozapine 25 Mg Tablet) 150 mg PO BID [facility] Last Admin: 10/22/21 09:51 Dose: 150 mg Documented by: Cyanocobalamin (Cyanocobalamin (Vitamin B-12) 1,000 Mcg Tablet) 1,000 mcg PO DAILY [facility] Last Admin: 10/22/21 09:51 Dose: 1,000 mcg Documented by: Dexamethasone (Dexamethasone 4 Mg Tablet) 8 mg PO Tu@0800 [facility] Last Admin: 10/22/21 09:51 Dose: 8 mg Documented by: Docusate Sodium (Docusate Sodium 100 Mg Capsule) 100 mg PO BEDTIME [facility] Last Admin: 10/21/21 20:47 Dose: 100 mg Documented by: Ferrous Sulfate (Ferrous Sulfate 324 Mg Tablet.) 324 mg PO DAILY [facility] Last Admin: 10/22/21 09:50 Dose: 324 mg Documented by: Hydroxyzine HCl (Hydroxyzine Hcl 25 Mg Tablet) 25 mg PO BEDTIME PRN PRN Reason: Anxiety Lorazepam (Lorazepam 0.5 Mg Tablet) 0.5 mg PO Q4H PRN PRN Reason: anxiety, catatonia Last Admin: 10/13/21 21:09 Dose: 0.5 mg Documented by: Losartan Potassium (Losartan Potassium 25 Mg Tablet) 25 mg PO DAILY [facility]; Protocol Last Admin: 10/22/21 09:53 Dose: 25 mg Documented by: Magnesium Hydroxide (Milk Of Magnesia 30 Ml Oral.Susp) 30 ml PO DAILY PRN PRN Reason: Constipation Metformin HCl (Metformin Hcl 1,000 Mg Tablet) 1,000 mg PO BID [facility] Last Admin: 10/22/21 09:52 Dose: 1,000 mg Documented by: Multivitamins/Vitamin C (Multivitamin Tablet) 1 tab PO DAILY [facility] Last Admin: 10/22/21 09:50 Dose: 1 tab Documented by: Non-Formulary Medication (Cinnamon) 1,000 mg PO DAILY [facility] Last Admin: 10/22/21 09:53 Dose: 1,000 mg Documented by: Patient Own Medication ( Empagliflozin 10 Mg) 1 each PO DAILY [facility] Last Admin: 10/22/21 09:53 Dose: 1 each Documented by: Omeprazole (Omeprazole 20 Mg Capsule.Dr) 20 mg PO DAILY@0630 [facility] Last Admin: 10/22/21 06:24 Dose: 20 mg Documented by: Ondansetron HCl (Ondansetron Odt 8 Mg Tab.Rapdis) 8 mg TRANSLINGU Q8H PRN PRN Reason: nausea Trazodone HCl (Trazodone Hcl 50 Mg Tablet) 50 mg PO BEDTIME PRN PRN Reason: Insomnia Vitamin D (Cholecalciferol (Vitamin D3) 10 Mcg Tablet) 10 mcg PO DAILY [facility] Last Admin: 10/22/21 09:50 Dose: 10 mcg Documented by: Allergies Allergies Allergy/AdvReac Type Severity Reaction Status Date / Time lisinopril [LISINOPRIL] Allergy Unknown SWOLLEN Verified 09/17/21 08:42 LIPS, angioedema, swelling Assessment & Plan Assessment & Plan (1) Schizoaffective disorder: Status: Acute Code(s): F25.9 - Schizoaffective disorder, unspecified (2) Invasive ductal carcinoma of right breast: Status: Acute Code(s): C50.911 - Malignant neoplasm of unspecified site of right female breast (3) Hypertension: Qualifiers: Hypertension type: essential hypertension Qualified Code(s): I10 - Essential (primary) hypertension Status: Acute Code(s): I10 - Essential (primary) hypertension (4) Hypercholesterolemia: Status: Acute Code(s): E78.00 - Pure hypercholesterolemia, unspecified (5) Type 2 diabetes mellitus with hyperglycemia: Qualifiers: Diabetes mellitus intermediate manager insulin use: without skilled nursing use Qualified Code(s): E11.65 - Type 2 diabetes mellitus with hyperglycemia Status: Acute Code(s): E11.65 - Type 2 diabetes mellitus with hyperglycemia Assessment and Plan: Continue metformin Jardiance not on formulary monitor point of care (6) GERD (gastroesophageal reflux disease): Qualifiers: Esophagitis presence: without esophagitis Qualified Code(s): K21.9 - Gastro-esophageal reflux disease without esophagitis Status: Acute Code(s): K21.9 - Gastro-esophageal reflux disease without esophagitis Plan 50 yo female, hx of schizoaffective disorder, depressed with R breast cancer, having just completed first cycle of chemotherapy. Pt's partner and sister report to crisis team that pt has had a significant mental status change with psychotic symptoms, paranoia, perceptual alterations, poor sleep and significant thought blocking. Pt denies SI, HI. Today she is a very poor historian-almost pre-catatonic at times, considering signing a three day notice of intent. Team report by history she may not be comfortable in this facility. Assessment plan for 09/21/2021 Continue current medical treatment elevated white blood count noted over the past month question related to cancer treatment. No evidence of infection Patient depressed withdrawn preoccupied patient with recent treatment for ductal carcinoma stress of this might certainly lead to depressive almost catatonic episode 09/22/21 Pt with thought blocking improved from yeterday have restarted wellbutin hosp did not have sr cont clozapine evaluate baseline denies self harm oob more 09/23/21 Continue current plan of care. Collateral contacts with OP team, oncology. 09/24/21 Increase Abilify to 30 mg daily Pt currently refusing Lorazepam TDN expires 09/25/21-will file for civil commitment if pt persists in wanting discharge 09/25/21 Civil commitment filing completed Continue current regime. 09/26/21 Continue current regime 09/27/32 Decrease Abilify to 20 mg daily Risperdal 1.5 mg HS 09/28/21 Continue plan as above 09/29/21 No changes 09/30/21 Court 10/01/21 Chemotherapy 10/01/21 Increase Risperdal to 2.5 mg HS Decrease Abilify to 10 mg daily 10/02/21 Tolerating change back to Abilify from Risperdal Appetite is improved. Calmer, more visable, however continues with paranoia Jardiance ordered from [facility] 10/03/21 Increase Abilify to 30 mg daily Will pursue validation of pt's HCP for continued chemotherapy Tentative chemotherapy 10/09. 10/04/21 Continue current regime 10/05 no changes to current regimen 10/06 no changes to current regimen 10/07/21 No positive effect from increase in Abilify Increase Clozaril to 100 mg bid, an increase of 50 mg daily, divided. Chemotherapy 10/09/21, Labs 10/08/21. 10/08/21 Tolerating Clozaril increase thus far Dexamethasone 4 mg hs and 4 mg a.m. pre chemo per Dr. Mora Support, encourage 10/09/21 Continue current plan of care 10/10/21 Continue current plan of care 10/11/21 Continue current plan. Will re-eval for Clozaril increase next week. 10/12/2021: Continue current regimen and plans. No changes were made today 10/13/2021: Continue current plans and regimen. 10/14/21: Increase Clozaril to 125 mg bid EKG, CBCD, CMP 10/15 prior to chemotherapy 10/15/21: Continue current plan of care 10/16/21: Continue current plan. Tolerating Clozaril increase 10/17/21: Continue current regime. 10/18/21: Increase Clozaril to 150 mg bid Decrease Abilify to 20 mg daily ECT Consult 10/19/21: continue meds unchanged 10/20/21: pt continue to present as paranoid, withdrawn 10/21/21: Continue current regime. Labs/EKG 10/22. Some improvement today. 10/22/21: Labs/EKG WNL Meeting 10/24 with health care proxy's to discuss clozaril discontinuation ECT Consult I spent minutes with the patient and/or on the patient floor today, greater than?50% of which was spent counseling/coordinating care. Informed Consent: does not understand Reason for contiued inpatient stay Substantial Risk for: harm to self, inability to function, rapid decompensation and med/psych decompensation
[2021-10-22] MEDS: Docusate Sodium 100 MG CAPSULE PO (21:08)
[2021-10-22] MEDS: Atorvastatin Calcium 10 MG TABLET 5 MG PO (21:08)
[2021-10-22 21:15] VITALS: BP 125/87; PULSE 126; TEMP 36.5; O2SAT 98
[2021-10-23] MEDS: Omeprazole 20 MG CAPSULE.DR PO (06:10)
[2021-10-23 08:37] VITALS: BP 138/84; PULSE 106; TEMP 36.6; O2SAT 97
[2021-10-23 08:38] LABS: Glucose, Whole Blood 142 mg/dL (60-115)
[2021-10-23] MEDS: Ferrous Sulfate 324 MG TABLET.DR PO (08:54)
[2021-10-23] MEDS: Multivitamin TABLET 1 TAB PO (08:54)
[2021-10-23] MEDS: Losartan Potassium 25 MG TABLET PO (08:54)
[2021-10-23] MEDS: Cholecalciferol (Vitamin D3) 10 MCG TABLET PO (08:55)
[2021-10-23] MEDS: metFORMIN HCl 1,000 MG TABLET 1000 MG PO ×2 (08:55→20:58)
[2021-10-23] MEDS: cloZAPine 25 MG TABLET 150 MG PO ×2 (08:55→20:59)
[2021-10-23] MEDS: buPROPion HCL 100 MG TABLET PO (08:56)
[2021-10-23] MEDS: cloNIDine HCL 0.1 MG TABLET PO ×3 (08:56→21:00)
[2021-10-23] MEDS: ARIPiprazole 20 MG TABLET PO (08:56)
[2021-10-23] MEDS: Cyanocobalamin (Vitamin B-12) 1,000 MCG TABLET 1000 MCG PO (08:56)
[2021-10-23] MEDS: Ascorbic Acid 500 MG TABLET 1000 MG PO (08:56)
[2021-10-23 14:26] VITALS: BP 133/81; PULSE 111; RESP 16; TEMP 36.7; O2SAT 98
--- NOTE | 2021-10-23 14:27 | PC.NURSE ---
Patient returned to unit from Oncology at approximately 1415. Ambulating with steady gait. Vitals were taken, T 98.1, P 111, R 16, O2 98%, BP 133/81. Patient in room requesting powerade drink. Will continue to monitor.
[2021-10-23 16:37] VITALS: BP 130/78; PULSE 102; RESP 16; TEMP 36.3; O2SAT 99
--- NOTE | 2021-10-23 17:46 | P.PNPSI_ITS ---
Subjective Subjective Date of Service: 10/23/21 Reason For Visit: Depression paranoia Interim History: Sabra reports chemotherapy went well and she is feeling OK . Discussed a nightmare she had Thursday night, where I was a serial killer, but I know this is not true. Discussed Prazosin prn for nightmares-she would like to have this available to her. Discussed getting a Clozaril level on 10/24. She is aware tw will meet with HCPS, partner and sister on 10/24 to discuss medications and possible change from Clozaril. Reviewed dosing adjustments since admission. She believes the increas es have helped a little bit but is willing to begin a discussion around change. Medication Compliance: Yes Side effects from medications: No Attending Groups: Intermittent Review of Systems Acute medical concerns: No Medical Review of Systems: unchanged Review of Systems Reports confusion Psychiatric: Reports anxiety, Reports confusion, Reports depression, Reports difficulty concentrating, Reports hopelessness, Reports anhedonia, Reports paranoia and Reports suicidal ideation (denies) Mental Status Exam Mental Status Exam Patient Appearance: Appropriate Patient Orientation: Person, Place, Time and Situation Level of Consciousness: Alert Patient Behavior: Guarded, Talkative, Cooperative, Passive, Suspicious, Anxious, Fearful, Distractible, Good Eye Contact and Poor Eye Contact Mood Description: Flat Affect Description: Flat Patient Cognition Impaired: No Ability to Follow Directions: Good Speech Pattern: Spontaneous Speech, Soft-Spoken, Delayed and Long Pauses Memory Description: Intact Hallucinations: None Delusions: Paranoid Ideation Perceptual Disturbances: Depersonalization and Derealization Thought Process: Distracted, Rumination and Slowed Thinking Thought Content: positive for [place], positive for Perseveration and positive for Suicidal Ideation (denies) Depressive Symptoms: Unhappiness and Thoughts of /Suicide (denies) Judgement: Poor Diagnostics Vital Signs (24Hr): Vital Signs - 24 hr 10/22/21 21:15 10/23/21 08:37 10/23/21 14:26 Temperature 97.7 F 97.9 F 98.1 F Pulse Rate 126 H 106 H 111 H Respiratory Rate 16 Blood Pressure 125/87 138/84 133/81 Pulse Oximetry 98 97 98 10/23/21 16:37 Temperature 97.4 F Pulse Rate 102 H Respiratory Rate 16 Blood Pressure 130/78 Pulse Oximetry 99 BMI result Body Mass Index 31.0 Labs Results: 10/22/21 09:07 10/22/21 09:07 Labs: Laboratory Results - last 48 hr 10/22/21 10/22/21 10/22/21 09:07 09:07 09:07 WBC 8.6 RBC 4.16 L Hgb 12.7 Hct 38.0 MCV 91.3 MCH 30.5 MCHC 33.4 RDW 15.9 Plt Count 316 MPV 10.2 Immature Gran % (Auto) 0.7 H Neut % (Auto) 76.7 H Lymph % (Auto) 17.7 L [place] % (Auto) 3.9 Eos % (Auto) 0.8 Baso % (Auto) 0.2 Lymph # (Auto) 1.5 [place] # (Auto) 0.3 Eos # (Auto) 0.1 Baso # (Auto) 0.0 Abs Immat Gran (auto) 0.06 H Absolute Neuts (auto) Cancelled 6.6 Absolute Nucleated RBC 0.000 Nucleated RBC % (auto) 0.0 Sodium 142 Potassium 3.9 Chloride 109 H Carbon Dioxide 22 Anion Gap 15 BUN 11 Creatinine 0.78 Estim Creat Clear Calc 82.8 Estimated GFR > 60 POC Glucose Random Glucose 165 H Calcium 9.7 Total Bilirubin 0.6 AST 28 ALT 42 H Alkaline Phosphatase 110 Total Protein 7.0 Albumin 4.4 10/22/21 10/23/21 09:13 08:34 WBC RBC Hgb Hct MCV MCH MCHC RDW Plt Count MPV Immature Gran % (Auto) Neut % (Auto) Lymph % (Auto) [place] % (Auto) Eos % (Auto) Baso % (Auto) Lymph # (Auto) [place] # (Auto) Eos # (Auto) Baso # (Auto) Abs Immat Gran (auto) Absolute Neuts (auto) Absolute Nucleated RBC Nucleated RBC % (auto) Sodium Potassium Chloride Carbon Dioxide Anion Gap BUN Creatinine Estim Creat Clear Calc Estimated GFR POC Glucose 145 H 142 H Random Glucose Calcium Total Bilirubin AST ALT Alkaline Phosphatase Total Protein Albumin Medications Medications Current Medications Acetaminophen (Acetaminophen 325 Mg Tablet) 650 mg PO Q6H PRN PRN Reason: Headache/Pain Mild Scale (1-3) Al Hydroxide/Mg Hydroxide (Magnesium Hydrox/Alum Hydrox 30 Ml Oral.Susp) 30 ml PO Q6H PRN PRN Reason: Heartburn/Nausea Last Admin: 10/02/21 14:41 Dose: 30 ml Documented by: Aripiprazole (Aripiprazole 20 Mg Tablet) 20 mg PO DAILY [facility] Last Admin: 10/23/21 08:56 Dose: 20 mg Documented by: Ascorbic Acid (Ascorbic Acid 500 Mg Tablet) 1,000 mg PO DAILY [facility] Last Admin: 10/23/21 08:56 Dose: 1,000 mg Documented by: Atorvastatin Calcium (Atorvastatin Calcium 10 Mg Tablet) 5 mg PO BEDTIME [facility] Last Admin: 10/22/21 21:08 Dose: 5 mg Documented by: Bupropion HCl (Bupropion Hcl 100 Mg Tablet) 100 mg PO DAILY [facility] Last Admin: 10/23/21 08:56 Dose: 100 mg Documented by: Clonidine HCl (Clonidine Hcl 0.1 Mg Tablet) 0.1 mg PO TID [facility]; Protocol Last Admin: 10/23/21 16:35 Dose: 0.1 mg Documented by: Clozapine (Clozapine 25 Mg Tablet) 150 mg PO BID [facility] Last Admin: 10/23/21 08:55 Dose: 150 mg Documented by: Cyanocobalamin (Cyanocobalamin (Vitamin B-12) 1,000 Mcg Tablet) 1,000 mcg PO DAILY [facility] Last Admin: 10/23/21 08:56 Dose: 1,000 mcg Documented by: Dexamethasone (Dexamethasone 4 Mg Tablet) 8 mg PO Tu@0800 [facility] Last Admin: 10/22/21 09:51 Dose: 8 mg Documented by: Docusate Sodium (Docusate Sodium 100 Mg Capsule) 100 mg PO BEDTIME [facility] Last Admin: 10/22/21 21:08 Dose: 100 mg Documented by: Ferrous Sulfate (Ferrous Sulfate 324 Mg Tablet.Dr) 324 mg PO DAILY [facility] Last Admin: 10/23/21 08:54 Dose: 324 mg Documented by: Hydroxyzine HCl (Hydroxyzine Hcl 25 Mg Tablet) 25 mg PO BEDTIME PRN PRN Reason: Anxiety Lorazepam (Lorazepam 0.5 Mg Tablet) 0.5 mg PO Q4H PRN PRN Reason: anxiety, catatonia Last Admin: 10/13/21 21:09 Dose: 0.5 mg Documented by: Losartan Potassium (Losartan Potassium 25 Mg Tablet) 25 mg PO DAILY [facility]; Protocol Last Admin: 10/23/21 08:54 Dose: 25 mg Documented by: Magnesium Hydroxide (Milk Of Magnesia 30 Ml Oral.Susp) 30 ml PO DAILY PRN PRN Reason: Constipation Metformin HCl (Metformin Hcl 1,000 Mg Tablet) 1,000 mg PO BID [facility] Last Admin: 10/23/21 08:55 Dose: 1,000 mg Documented by: Multivitamins/Vitamin C (Multivitamin Tablet) 1 tab PO DAILY [facility] Last Admin: 10/23/21 08:54 Dose: 1 tab Documented by: Non-Formulary Medication (Cinnamon) 1,000 mg PO DAILY [facility] Last Admin: 10/23/21 09:04 Dose: 1,000 mg Documented by: Patient Own Medication ( Empagliflozin 10 Mg) 1 each PO DAILY [facility] Last Admin: 10/23/21 09:04 Dose: 1 each Documented by: Omeprazole (Omeprazole 20 Mg Capsule.Dr) 20 mg PO DAILY@0630 [facility] Last Admin: 10/23/21 06:10 Dose: 20 mg Documented by: Ondansetron HCl (Ondansetron Odt 8 Mg Tab.Rapdis) 8 mg TRANSLINGU Q8H PRN PRN Reason: nausea Prazosin HCl (Prazosin Hcl 1 Mg Capsule) 1 mg PO BEDTIME PRN; Protocol PRN Reason: nightmares Trazodone HCl (Trazodone Hcl 50 Mg Tablet) 50 mg PO BEDTIME PRN PRN Reason: Insomnia Vitamin D (Cholecalciferol (Vitamin D3) 10 Mcg Tablet) 10 mcg PO DAILY [facility] Last Admin: 10/23/21 08:55 Dose: 10 mcg Documented by: Allergies Allergies Allergy/AdvReac Type Severity Reaction Status Date / Time lisinopril [LISINOPRIL] Allergy Unknown SWOLLEN Verified 09/17/21 08:42 LIPS, angioedema, swelling Assessment & Plan Assessment & Plan (1) Schizoaffective disorder: Status: Acute Code(s): F25.9 - Schizoaffective disorder, unspecified (2) Invasive ductal carcinoma of right breast: Status: Acute Code(s): C50.911 - Malignant neoplasm of unspecified site of right female breast (3) Hypertension: Qualifiers: Hypertension type: essential hypertension Qualified Code(s): I10 - Essential (primary) hypertension Status: Acute Code(s): I10 - Essential (primary) hypertension (4) Hypercholesterolemia: Status: Acute Code(s): E78.00 - Pure hypercholesterolemia, unspecified (5) Type 2 diabetes mellitus with hyperglycemia: Qualifiers: Diabetes mellitus relief manager insulin use: without relief manager use Qualified Code(s): E11.65 - Type 2 diabetes mellitus with hyperglycemia Status: Acute Code(s): E11.65 - Type 2 diabetes mellitus with hyperglycemia Assessment and Plan: Continue metformin Jardiance not on formulary monitor point of care (6) GERD (gastroesophageal reflux disease): Qualifiers: Esophagitis presence: without esophagitis Qualified Code(s): K21.9 - Gastro-esophageal reflux disease without esophagitis Status: Acute Code(s): K21.9 - Gastro-esophageal reflux disease without esophagitis Plan 50 yo female, hx of schizoaffective disorder, depressed with R breast cancer, having just completed first cycle of chemotherapy. Pt's partner and sister report to crisis team that pt has had a significant mental status change with psychotic symptoms, paranoia, perceptual alterations, poor sleep and significant thought blocking. Pt denies SI, HI. Today she is a very poor historian-almost pre-catatonic at times, considering signing a three day notice of intent. Team report by history she may not be comfortable in this facility. Assessment plan for 09/21/2021 Continue current medical treatment elevated white blood count noted over the past month question related to cancer treatment. No evidence of infection Patient depressed withdrawn preoccupied patient with recent treatment for ductal carcinoma stress of this might certainly lead to depressive almost catatonic episode 09/22/21 Pt with thought blocking improved from yeterday have restarted wellbutin hosp did not have sr cont clozapine evaluate baseline denies self harm oob more 09/23/21 Continue current plan of care. Collateral contacts with OP team, oncology. 09/24/21 Increase Abilify to 30 mg daily Pt currently refusing Lorazepam TDN expires 09/25/21-will file for civil commitment if pt persists in wanting discharge 09/25/21 Civil commitment filing completed Continue current regime. 09/26/21 Continue current regime 09/27/32 Decrease Abilify to 20 mg daily Risperdal 1.5 mg HS 09/28/21 Continue plan as above 09/29/21 No changes 09/30/21 Court 10/01/21 Chemotherapy 10/01/21 Increase Risperdal to 2.5 mg HS Decrease Abilify to 10 mg daily 10/02/21 Tolerating change back to Abilify from Risperdal Appetite is improved. Calmer, more visable, however continues with paranoia Jardiance ordered from [facility] pharmacy 10/03/21 Increase Abilify to 30 mg daily Will pursue validation of pt's HCP for continued chemotherapy Tentative chemotherapy 10/09. 10/04/21 Continue current regime 10/05 no changes to current regimen 10/06 no changes to current regimen 10/07/21 No positive effect from increase in Abilify Increase Clozaril to 100 mg bid, an increase of 50 mg daily, divided. Chemotherapy 10/09/21, Labs 10/08/21. 10/08/21 Tolerating Clozaril increase thus far Dexamethasone 4 mg hs and 4 mg a.m. pre chemo per Dr. Mora Support, encourage 10/09/21 Continue current plan of care 10/10/21 Continue current plan of care 10/11/21 Continue current plan. Will re-eval for Clozaril increase next week. 10/12/2021: Continue current regimen and plans. No changes were made today 10/13/2021: Continue current plans and regimen. 10/14/21: Increase Clozaril to 125 mg bid EKG, CBCD, CMP 10/15 prior to chemotherapy 10/15/21: Continue current plan of care 10/16/21: Continue current plan. Tolerating Clozaril increase 10/17/21: Continue current regime. 10/18/21: Increase Clozaril to 150 mg bid Decrease Abilify to 20 mg daily ECT Consult 10/19/21: continue meds unchanged 10/20/21: pt continue to present as paranoid, withdrawn 10/21/21: Continue current regime. Labs/EKG 10/22. Some improvement today. 10/22/21: Labs/EKG WNL Meeting 10/24 with health care proxy's to discuss clozaril discontinuation ECT Consult 10/23/21: Continue current plan. I spent minutes with the patient and/or on the patient floor today, greater than?50% of which was spent counseling/coordinating care. Patient educated on: medication risk/benefits and medical condition Informed Consent: understands and further education needed Reason for contiued inpatient stay Substantial Risk for: harm to self, inability to function and rapid decompensation
[2021-10-23] MEDS: Atorvastatin Calcium 10 MG TABLET 5 MG PO (20:59)
[2021-10-23] MEDS: Docusate Sodium 100 MG CAPSULE PO (21:01)
[2021-10-24 08:24] LABS: Glucose, Whole Blood 108 mg/dL (60-115)
[2021-10-24 09:00] VITALS: BP 141/97; PULSE 118; RESP 18; TEMP 36.4; O2SAT 98
[2021-10-24] MEDS: cloZAPine 25 MG TABLET 150 MG PO ×2 (09:17→21:23)
[2021-10-24] MEDS: Cholecalciferol (Vitamin D3) 10 MCG TABLET PO (09:18)
[2021-10-24] MEDS: cloNIDine HCL 0.1 MG TABLET PO ×3 (09:18→21:23)
[2021-10-24] MEDS: Losartan Potassium 25 MG TABLET PO (09:18)
[2021-10-24] MEDS: Omeprazole 20 MG CAPSULE.DR PO (09:19)
[2021-10-24] MEDS: ARIPiprazole 20 MG TABLET PO (09:20)
[2021-10-24] MEDS: Ascorbic Acid 500 MG TABLET 1000 MG PO (09:20)
[2021-10-24] MEDS: Ferrous Sulfate 324 MG TABLET.DR PO (09:21)
[2021-10-24] MEDS: Cyanocobalamin (Vitamin B-12) 1,000 MCG TABLET 1000 MCG PO (09:21)
[2021-10-24] MEDS: Multivitamin TABLET 1 TAB PO (09:21)
[2021-10-24] MEDS: buPROPion HCL 100 MG TABLET PO (09:21)
[2021-10-24] MEDS: metFORMIN HCl 1,000 MG TABLET 1000 MG PO ×2 (09:21→21:19)
[2021-10-24 13:00] VITALS: BP 135/83; PULSE 114; RESP 14; O2SAT 95
--- NOTE | 2021-10-24 16:46 | HO.PSYCHPN ---
Subjective Subjective Date of Service: 10/24/21 Reason For Visit: Depression paranoia Interim History: Discussion of rationale for ordering Lovenox. Sabra verbalized understanding. Med review, review of Clozaril efficacy. She believes it has been only somewhat helpful. Family meeting with sister and partner, both HCP's-discussion of possibly changing Clozaril to another agent. Pt's brother in law, a [employer] [place] [employer] will visit over the weekend and discuss with her that she is not being charged with any crime or going to assisted, a delusional belief that continues to cause fear and anxiety. Medication Compliance: Yes (struggles with some dosing however.) Side effects from medications: Yes (steroids seem to improve her mood.) Attending Groups: Intermittent Review of Systems Acute medical concerns: No Medical Review of Systems: unchanged Review of Systems Reports confusion Psychiatric: Reports anxiety, Reports confusion, Reports depression, Reports difficulty concentrating, Reports hopelessness, Reports anhedonia, Reports paranoia and Reports suicidal ideation (denies) Mental Status Exam Mental Status Exam Patient Appearance: Appropriate Patient Orientation: Person, Place, Time and Situation Level of Consciousness: Alert Patient Behavior: Guarded, Talkative, Cooperative, Passive, Suspicious, Anxious, Fearful, Distractible, Good Eye Contact and Poor Eye Contact Mood Description: Flat Affect Description: Flat Patient Cognition Impaired: No Ability to Follow Directions: Good Speech Pattern: Spontaneous Speech, Soft-Spoken, Delayed and Long Pauses Memory Description: Intact Hallucinations: None Delusions: Paranoid Ideation Perceptual Disturbances: Depersonalization and Derealization Thought Process: Distracted, Rumination and Slowed Thinking Thought Content: positive for [place], positive for Perseveration and positive for Suicidal Ideation (denies) Depressive Symptoms: Unhappiness and Thoughts of /Suicide (denies) Judgement: Poor Diagnostics Vital Signs (24Hr): Vital Signs - 24 hr 10/24/21 09:00 10/24/21 13:00 Temperature 97.6 F Pulse Rate 118 H 114 H Respiratory Rate 18 14 Blood Pressure 141/97 H 135/83 Pulse Oximetry 98 95 BMI result Body Mass Index 31.0 Labs Results: 10/22/21 09:07 10/22/21 09:07 Labs: Laboratory Results - last 48 hr 10/23/21 10/24/21 08:34 08:13 POC Glucose 142 H 108 Medications Medications Current Medications Acetaminophen (Acetaminophen 325 Mg Tablet) 650 mg PO Q6H PRN PRN Reason: Headache/Pain Mild Scale (1-3) Al Hydroxide/Mg Hydroxide (Magnesium Hydrox/Alum Hydrox 30 Ml Oral.Susp) 30 ml PO Q6H PRN PRN Reason: Heartburn/Nausea Last Admin: 10/02/21 14:41 Dose: 30 ml Documented by: Aripiprazole (Aripiprazole 20 Mg Tablet) 20 mg PO DAILY [facility] Last Admin: 10/24/21 09:20 Dose: 20 mg Documented by: Ascorbic Acid (Ascorbic Acid 500 Mg Tablet) 1,000 mg PO DAILY [facility] Last Admin: 10/24/21 09:20 Dose: 1,000 mg Documented by: Atorvastatin Calcium (Atorvastatin Calcium 10 Mg Tablet) 5 mg PO BEDTIME [facility] Last Admin: 10/23/21 20:59 Dose: 5 mg Documented by: Bupropion HCl (Bupropion Hcl 100 Mg Tablet) 100 mg PO DAILY [facility] Last Admin: 10/24/21 09:21 Dose: 100 mg Documented by: Clonidine HCl (Clonidine Hcl 0.1 Mg Tablet) 0.1 mg PO TID [facility]; Protocol Last Admin: 10/24/21 14:51 Dose: 0.1 mg Documented by: Clozapine (Clozapine 25 Mg Tablet) 150 mg PO BID [facility] Last Admin: 10/24/21 09:17 Dose: 150 mg Documented by: Cyanocobalamin (Cyanocobalamin (Vitamin B-12) 1,000 Mcg Tablet) 1,000 mcg PO DAILY [facility] Last Admin: 10/24/21 09:21 Dose: 1,000 mcg Documented by: Dexamethasone (Dexamethasone 4 Mg Tablet) 8 mg PO Tu@0800 [facility] Last Admin: 10/22/21 09:51 Dose: 8 mg Documented by: Docusate Sodium (Docusate Sodium 100 Mg Capsule) 100 mg PO BEDTIME [facility] Last Admin: 10/23/21 21:01 Dose: 100 mg Documented by: Enoxaparin Sodium (Enoxaparin Sodium 40 Mg/0.4 Ml Syringe) 40 mg SUBCUT Q24H [facility] Last Admin: 10/24/21 13:04 Dose: Not Given Documented by: Ferrous Sulfate (Ferrous Sulfate 324 Mg Tablet.) 324 mg PO DAILY [facility] Last Admin: 10/24/21 09:21 Dose: 324 mg Documented by: Hydroxyzine HCl (Hydroxyzine Hcl 25 Mg Tablet) 25 mg PO BEDTIME PRN PRN Reason: Anxiety Lorazepam (Lorazepam 0.5 Mg Tablet) 0.5 mg PO Q4H PRN PRN Reason: anxiety, catatonia Last Admin: 10/13/21 21:09 Dose: 0.5 mg Documented by: Losartan Potassium (Losartan Potassium 25 Mg Tablet) 25 mg PO DAILY [facility]; Protocol Last Admin: 10/24/21 09:18 Dose: 25 mg Documented by: Magnesium Hydroxide (Milk Of Magnesia 30 Ml Oral.Susp) 30 ml PO DAILY PRN PRN Reason: Constipation Metformin HCl (Metformin Hcl 1,000 Mg Tablet) 1,000 mg PO BID [facility] Last Admin: 10/24/21 09:21 Dose: 1,000 mg Documented by: Multivitamins/Vitamin C (Multivitamin Tablet) 1 tab PO DAILY [facility] Last Admin: 10/24/21 09:21 Dose: 1 tab Documented by: Non-Formulary Medication (Cinnamon) 1,000 mg PO DAILY [facility] Last Admin: 10/24/21 09:21 Dose: 1,000 mg Documented by: Patient Own Medication ( Empagliflozin 10 Mg) 1 each PO DAILY [facility] Last Admin: 10/24/21 09:22 Dose: 1 each Documented by: Omeprazole (Omeprazole 20 Mg Capsule.Dr) 20 mg PO DAILY@0630 [facility] Last Admin: 10/24/21 09:19 Dose: 20 mg Documented by: Ondansetron HCl (Ondansetron Odt 8 Mg Tab.Rapdis) 8 mg TRANSLINGU Q8H PRN PRN Reason: nausea Prazosin HCl (Prazosin Hcl 1 Mg Capsule) 1 mg PO BEDTIME PRN; Protocol PRN Reason: nightmares Trazodone HCl (Trazodone Hcl 50 Mg Tablet) 50 mg PO BEDTIME PRN PRN Reason: Insomnia Vitamin D (Cholecalciferol (Vitamin D3) 10 Mcg Tablet) 10 mcg PO DAILY [facility] Last Admin: 10/24/21 09:18 Dose: 10 mcg Documented by: Allergies Allergies Allergy/AdvReac Type Severity Reaction Status Date / Time lisinopril [LISINOPRIL] Allergy Unknown SWOLLEN Verified 09/17/21 08:42 LIPS, angioedema, swelling Assessment & Plan Assessment & Plan (1) Schizoaffective disorder: Status: Acute Code(s): F25.9 - Schizoaffective disorder, unspecified (2) Invasive ductal carcinoma of right breast: Status: Acute Code(s): C50.911 - Malignant neoplasm of unspecified site of right female breast (3) Hypertension: Qualifiers: Hypertension type: essential hypertension Qualified Code(s): I10 - Essential (primary) hypertension Status: Acute Code(s): I10 - Essential (primary) hypertension (4) Hypercholesterolemia: Status: Acute Code(s): E78.00 - Pure hypercholesterolemia, unspecified (5) Type 2 diabetes mellitus with hyperglycemia: Qualifiers: Diabetes mellitus long term care social worker insulin use: without half-way use Qualified Code(s): E11.65 - Type 2 diabetes mellitus with hyperglycemia Status: Acute Code(s): E11.65 - Type 2 diabetes mellitus with hyperglycemia Assessment and Plan: Continue metformin Jardiance not on formulary monitor point of care (6) GERD (gastroesophageal reflux disease): Qualifiers: Esophagitis presence: without esophagitis Qualified Code(s): K21.9 - Gastro-esophageal reflux disease without esophagitis Status: Acute Code(s): K21.9 - Gastro-esophageal reflux disease without esophagitis Plan 50 yo female, hx of schizoaffective disorder, depressed with R breast cancer, having just completed first cycle of chemotherapy. Pt's partner and sister report to crisis team that pt has had a significant mental status change with psychotic symptoms, paranoia, perceptual alterations, poor sleep and significant thought blocking. Pt denies SI, HI. Today she is a very poor historian-almost pre-catatonic at times, considering signing a three day notice of intent. Team report by history she may not be comfortable in this facility. Assessment plan for 09/21/2021 Continue current medical treatment elevated white blood count noted over the past month question related to cancer treatment. No evidence of infection Patient depressed withdrawn preoccupied patient with recent treatment for ductal carcinoma stress of this might certainly lead to depressive almost catatonic episode 09/22/21 Pt with thought blocking improved from yeterday have restarted wellbutin hosp did not have sr cont clozapine evaluate baseline denies self harm oob more 09/23/21 Continue current plan of care. Collateral contacts with OP team, oncology. 09/24/21 Increase Abilify to 30 mg daily Pt currently refusing Lorazepam TDN expires 09/25/21-will file for civil commitment if pt persists in wanting discharge 09/25/21 Civil commitment filing completed Continue current regime. 09/26/21 Continue current regime 09/27/32 Decrease Abilify to 20 mg daily Risperdal 1.5 mg HS 09/28/21 Continue plan as above 09/29/21 No changes 09/30/21 Court 10/01/21 Chemotherapy 10/01/21 Increase Risperdal to 2.5 mg HS Decrease Abilify to 10 mg daily 10/02/21 Tolerating change back to Abilify from Risperdal Appetite is improved. Calmer, more visable, however continues with paranoia Jardiance ordered from [facility] 10/03/21 Increase Abilify to 30 mg daily Will pursue validation of pt's HCP for continued chemotherapy Tentative chemotherapy 10/09. 10/04/21 Continue current regime 10/05 no changes to current regimen 10/06 no changes to current regimen 10/07/21 No positive effect from increase in Abilify Increase Clozaril to 100 mg bid, an increase of 50 mg daily, divided. Chemotherapy 10/09/21, Labs 10/08/21. 10/08/21 Tolerating Clozaril increase thus far Dexamethasone 4 mg hs and 4 mg a.m. pre chemo per Dr. Mora Support, encourage 10/09/21 Continue current plan of care 10/10/21 Continue current plan of care 10/11/21 Continue current plan. Will re-eval for Clozaril increase next week. 10/12/2021: Continue current regimen and plans. No changes were made today 10/13/2021: Continue current plans and regimen. 10/14/21: Increase Clozaril to 125 mg bid EKG, CBCD, CMP 10/15 prior to chemotherapy 10/15/21: Continue current plan of care 10/16/21: Continue current plan. Tolerating Clozaril increase 10/17/21: Continue current regime. 10/18/21: Increase Clozaril to 150 mg bid Decrease Abilify to 20 mg daily ECT Consult 10/19/21: continue meds unchanged 10/20/21: pt continue to present as paranoid, withdrawn 10/21/21: Continue current regime. Labs/EKG 10/22. Some improvement today. 10/22/21: Labs/EKG WNL Meeting 10/24 with health care proxy's to discuss clozaril discontinuation ECT Consult 10/24/21: Continue current plan. I spent minutes with the patient and/or on the patient floor today, greater than?50% of which was spent counseling/coordinating care. Informed Consent: does not understand Reason for contiued inpatient stay Substantial Risk for: harm to self, inability to function, rapid decompensation and med/psych decompensation
[2021-10-24 18:00] VITALS: BP 139/83; PULSE 113; RESP 19; TEMP 35.6; O2SAT 99
[2021-10-24] MEDS: Docusate Sodium 100 MG CAPSULE PO (21:20)
[2021-10-24] MEDS: Atorvastatin Calcium 10 MG TABLET 5 MG PO (21:20)
[2021-10-25] MEDS: buPROPion HCL 100 MG TABLET PO (09:21)
[2021-10-25] MEDS: Losartan Potassium 25 MG TABLET PO (09:22)
[2021-10-25] MEDS: Ascorbic Acid 500 MG TABLET 1000 MG PO (09:22)
[2021-10-25] MEDS: Cholecalciferol (Vitamin D3) 10 MCG TABLET PO (09:22)
[2021-10-25] MEDS: Cyanocobalamin (Vitamin B-12) 1,000 MCG TABLET 1000 MCG PO (09:22)
[2021-10-25] MEDS: Ferrous Sulfate 324 MG TABLET.DR PO (09:22)
[2021-10-25] MEDS: Omeprazole 20 MG CAPSULE.DR PO (09:22)
[2021-10-25] MEDS: cloZAPine 25 MG TABLET 150 MG PO ×2 (09:22→21:54)
[2021-10-25] MEDS: ARIPiprazole 20 MG TABLET PO (09:22)
[2021-10-25] MEDS: Multivitamin TABLET 1 TAB PO (09:22)
[2021-10-25] MEDS: cloNIDine HCL 0.1 MG TABLET PO ×3 (09:22→23:17)
[2021-10-25] MEDS: metFORMIN HCl 1,000 MG TABLET 1000 MG PO ×2 (09:22→21:55)
[2021-10-25 09:32] VITALS: BP 153/90; PULSE 120; RESP 18; TEMP 36.2; O2SAT 96
[2021-10-25] MEDS: Enoxaparin Sodium 40 MG/0.4 ML SYRINGE SUBCUT (11:23)
[2021-10-25 14:48] VITALS: BP 132/60; PULSE 124
--- NOTE | 2021-10-25 16:26 | P.PNPSI_ITS ---
Subjective Subjective Date of Service: 10/25/21 Reason For Visit: Depression paranoia Interim History: Sabra is visable today in the milieu however she is experiencing thought blocking and perseverance of thought, speech. Discussed upcoming viist of her brother in law on 10/26. He is a officer lieutenant and is coming to reassure her that she has not committed a crime. Appropriate questions regarding Lovenox. States today, maybe we should change the Clozaril . We await a Clozaril level. Medication Compliance: Yes (intermittent refusals) Side effects from medications: No Attending Groups: Intermittent Review of Systems Acute medical concerns: No Medical Review of Systems: unchanged Review of Systems Reports confusion Psychiatric: Reports anxiety, Reports confusion, Reports depression, Reports difficulty concentrating, Reports hopelessness, Reports anhedonia, Reports paranoia and Reports suicidal ideation (denies) Mental Status Exam Mental Status Exam Patient Appearance: Appropriate Patient Orientation: Person, Place, Time and Situation Level of Consciousness: Alert Patient Behavior: Guarded, Talkative, Cooperative, Passive, Suspicious, Anxious, Fearful, Distractible, Good Eye Contact and Poor Eye Contact Mood Description: Flat Affect Description: Flat Patient Cognition Impaired: No Ability to Follow Directions: Good Speech Pattern: Spontaneous Speech, Soft-Spoken, Delayed and Long Pauses Memory Description: Intact Hallucinations: None Delusions: Paranoid Ideation Perceptual Disturbances: Depersonalization and Derealization Thought Process: Distracted, Rumination and Slowed Thinking Thought Content: positive for Tillar, positive for Perseveration and positive for Suicidal Ideation (denies) Depressive Symptoms: Unhappiness and Thoughts of /Suicide (denies) Judgement: Poor Diagnostics Vital Signs (24Hr): Vital Signs - 24 hr 10/24/21 18:00 10/25/21 09:32 10/25/21 14:48 Temperature 96.1 F L 97.2 F Pulse Rate 113 H 120 H 124 H Respiratory Rate 19 18 Blood Pressure 139/83 153/90 H 132/60 Pulse Oximetry 99 96 BMI result Body Mass Index 31.0 Labs Results: 10/22/21 09:07 10/22/21 09:07 Labs: Laboratory Results - last 48 hr 10/24/21 08:13 POC Glucose 108 Medications Medications Current Medications Acetaminophen (Acetaminophen 325 Mg Tablet) 650 mg PO Q6H PRN PRN Reason: Headache/Pain Mild Scale (1-3) Al Hydroxide/Mg Hydroxide (Magnesium Hydrox/Alum Hydrox 30 Ml Oral.Susp) 30 ml PO Q6H PRN PRN Reason: Heartburn/Nausea Last Admin: 10/02/21 14:41 Dose: 30 ml Documented by: Aripiprazole (Aripiprazole 20 Mg Tablet) 20 mg PO DAILY [facility] Last Admin: 10/25/21 09:22 Dose: 20 mg Documented by: Ascorbic Acid (Ascorbic Acid 500 Mg Tablet) 1,000 mg PO DAILY [facility] Last Admin: 10/25/21 09:22 Dose: 1,000 mg Documented by: Atorvastatin Calcium (Atorvastatin Calcium 10 Mg Tablet) 5 mg PO BEDTIME [facility] Last Admin: 10/24/21 21:20 Dose: 5 mg Documented by: Bupropion HCl (Bupropion Hcl 100 Mg Tablet) 100 mg PO DAILY [facility] Last Admin: 10/25/21 09:21 Dose: 100 mg Documented by: Clonidine HCl (Clonidine Hcl 0.1 Mg Tablet) 0.1 mg PO TID [facility]; Protocol Last Admin: 10/25/21 14:43 Dose: 0.1 mg Documented by: Clozapine (Clozapine 25 Mg Tablet) 150 mg PO BID [facility] Last Admin: 10/25/21 09:22 Dose: 150 mg Documented by: Cyanocobalamin (Cyanocobalamin (Vitamin B-12) 1,000 Mcg Tablet) 1,000 mcg PO DAILY [facility] Last Admin: 10/25/21 09:22 Dose: 1,000 mcg Documented by: Dexamethasone (Dexamethasone 4 Mg Tablet) 8 mg PO Tu@0800 [facility] Last Admin: 10/22/21 09:51 Dose: 8 mg Documented by: Docusate Sodium (Docusate Sodium 100 Mg Capsule) 100 mg PO BEDTIME [facility] Last Admin: 10/24/21 21:20 Dose: 100 mg Documented by: Enoxaparin Sodium (Enoxaparin Sodium 40 Mg/0.4 Ml Syringe) 40 mg SUBCUT Q24H [facility] Last Admin: 10/25/21 11:23 Dose: 40 mg Documented by: Ferrous Sulfate (Ferrous Sulfate 324 Mg Tablet.) 324 mg PO DAILY [facility] Last Admin: 10/25/21 09:22 Dose: 324 mg Documented by: Hydroxyzine HCl (Hydroxyzine Hcl 25 Mg Tablet) 25 mg PO BEDTIME PRN PRN Reason: Anxiety Lorazepam (Lorazepam 0.5 Mg Tablet) 0.5 mg PO Q4H PRN PRN Reason: anxiety, catatonia Last Admin: 10/13/21 21:09 Dose: 0.5 mg Documented by: Losartan Potassium (Losartan Potassium 25 Mg Tablet) 25 mg PO DAILY [facility]; Protocol Last Admin: 10/25/21 09:22 Dose: 25 mg Documented by: Magnesium Hydroxide (Milk Of Magnesia 30 Ml Oral.Susp) 30 ml PO DAILY PRN PRN Reason: Constipation Metformin HCl (Metformin Hcl 1,000 Mg Tablet) 1,000 mg PO BID [facility] Last Admin: 10/25/21 09:22 Dose: 1,000 mg Documented by: Multivitamins/Vitamin C (Multivitamin Tablet) 1 tab PO DAILY [facility] Last Admin: 10/25/21 09:22 Dose: 1 tab Documented by: Non-Formulary Medication (Cinnamon) 1,000 mg PO DAILY [facility] Last Admin: 10/25/21 09:21 Dose: 1,000 mg Documented by: Patient Own Medication ( Empagliflozin 10 Mg) 1 each PO DAILY [facility] Last Admin: 10/25/21 09:21 Dose: 1 each Documented by: Omeprazole (Omeprazole 20 Mg Capsule.Dr) 20 mg PO DAILY@0630 [facility] Last Admin: 10/25/21 09:22 Dose: 20 mg Documented by: Ondansetron HCl (Ondansetron Odt 8 Mg Tab.Rapdis) 8 mg TRANSLINGU Q8H PRN PRN Reason: nausea Prazosin HCl (Prazosin Hcl 1 Mg Capsule) 1 mg PO BEDTIME PRN; Protocol PRN Reason: nightmares Trazodone HCl (Trazodone Hcl 50 Mg Tablet) 50 mg PO BEDTIME PRN PRN Reason: Insomnia Vitamin D (Cholecalciferol (Vitamin D3) 10 Mcg Tablet) 10 mcg PO DAILY [facility] Last Admin: 10/25/21 09:22 Dose: 10 mcg Documented by: Allergies Allergies Allergy/AdvReac Type Severity Reaction Status Date / Time lisinopril [LISINOPRIL] Allergy Unknown SWOLLEN Verified 09/17/21 08:42 LIPS, angioedema, swelling Assessment & Plan Assessment & Plan (1) Schizoaffective disorder: Status: Acute Code(s): F25.9 - Schizoaffective disorder, unspecified (2) Invasive ductal carcinoma of right breast: Status: Acute Code(s): C50.911 - Malignant neoplasm of unspecified site of right female breast (3) Hypertension: Qualifiers: Hypertension type: essential hypertension Qualified Code(s): I10 - Essential (primary) hypertension Status: Acute Code(s): I10 - Essential (primary) hypertension (4) Hypercholesterolemia: Status: Acute Code(s): E78.00 - Pure hypercholesterolemia, unspecified (5) Type 2 diabetes mellitus with hyperglycemia: Qualifiers: Diabetes mellitus senior living insulin use: without roll form operator use Qualified Code(s): E11.65 - Type 2 diabetes mellitus with hyperglycemia Status: Acute Code(s): E11.65 - Type 2 diabetes mellitus with hyperglycemia Assessment and Plan: Continue metformin Jardiance not on formulary monitor point of care (6) GERD (gastroesophageal reflux disease): Qualifiers: Esophagitis presence: without esophagitis Qualified Code(s): K21.9 - Gastro-esophageal reflux disease without esophagitis Status: Acute Code(s): K21.9 - Gastro-esophageal reflux disease without esophagitis Plan 50 yo female, hx of schizoaffective disorder, depressed with R breast cancer, having just completed first cycle of chemotherapy. Pt's partner and sister report to crisis team that pt has had a significant mental status change with psychotic symptoms, paranoia, perceptual alterations, poor sleep and significant thought blocking. Pt denies SI, HI. Today she is a very poor historian-almost pre-catatonic at times, considering signing a three day notice of intent. Team report by history she may not be comfortable in this facility. Assessment plan for 09/21/2021 Continue current medical treatment elevated white blood count noted over the past month question related to cancer treatment. No evidence of infection Patient depressed withdrawn preoccupied patient with recent treatment for ductal carcinoma stress of this might certainly lead to depressive almost catatonic episode 09/22/21 Pt with thought blocking improved from yeterday have restarted wellbutin hosp did not have sr cont clozapine evaluate baseline denies self harm oob more 09/23/21 Continue current plan of care. Collateral contacts with OP team, oncology. 09/24/21 Increase Abilify to 30 mg daily Pt currently refusing Lorazepam TDN expires 09/25/21-will file for civil commitment if pt persists in wanting discharge 09/25/21 Civil commitment filing completed Continue current regime. 09/26/21 Continue current regime 09/27/32 Decrease Abilify to 20 mg daily Risperdal 1.5 mg HS 09/28/21 Continue plan as above 09/29/21 No changes 09/30/21 Court 10/01/21 Chemotherapy 10/01/21 Increase Risperdal to 2.5 mg HS Decrease Abilify to 10 mg daily 10/02/21 Tolerating change back to Abilify from Risperdal Appetite is improved. Calmer, more visable, however continues with paranoia Jardiance ordered from [facility] 10/03/21 Increase Abilify to 30 mg daily Will pursue validation of pt's HCP for continued chemotherapy Tentative chemotherapy 10/09. 10/04/21 Continue current regime 10/05 no changes to current regimen 10/06 no changes to current regimen 10/07/21 No positive effect from increase in Abilify Increase Clozaril to 100 mg bid, an increase of 50 mg daily, divided. Chemotherapy 10/09/21, Labs 10/08/21. 10/08/21 Tolerating Clozaril increase thus far Dexamethasone 4 mg hs and 4 mg a.m. pre chemo per Dr. Mora Support, encourage 10/09/21 Continue current plan of care 10/10/21 Continue current plan of care 10/11/21 Continue current plan. Will re-eval for Clozaril increase next week. 10/12/2021: Continue current regimen and plans. No changes were made today 10/13/2021: Continue current plans and regimen. 10/14/21: Increase Clozaril to 125 mg bid EKG, CBCD, CMP 10/15 prior to chemotherapy 10/15/21: Continue current plan of care 10/16/21: Continue current plan. Tolerating Clozaril increase 10/17/21: Continue current regime. 10/18/21: Increase Clozaril to 150 mg bid Decrease Abilify to 20 mg daily ECT Consult 10/19/21: continue meds unchanged 10/20/21: pt continue to present as paranoid, withdrawn 10/21/21: Continue current regime. Labs/EKG 10/22. Some improvement today. 10/22/21: Labs/EKG WNL Meeting 10/24 with health care proxy's to discuss clozaril discontinuation ECT Consult 10/24/21: Continue current plan. 4/1/22: Continue current plan. I spent minutes with the patient and/or on the patient floor today, greater than?50% of which was spent counseling/coordinating care. Patient educated on: medication risk/benefits and therapeutic strategies Informed Consent: does not understand Reason for contiued inpatient stay Substantial Risk for: harm to self, inability to function, rapid decompensation and med/psych decompensation
[2021-10-25 18:00] VITALS: BP 132/83; PULSE 128; TEMP 36.9; O2SAT 98
[2021-10-25] MEDS: Docusate Sodium 100 MG CAPSULE PO (21:54)
[2021-10-25] MEDS: Atorvastatin Calcium 10 MG TABLET 5 MG PO (22:11)
[2021-10-26] MEDS: traZODone HCL 50 MG TABLET PO (03:25)
[2021-10-26 09:12] LABS: Glucose, Whole Blood 141 mg/dL (60-115)
[2021-10-26] MEDS: Omeprazole 20 MG CAPSULE.DR PO (09:16)
[2021-10-26] MEDS: Ferrous Sulfate 324 MG TABLET.DR PO (09:16)
[2021-10-26] MEDS: Losartan Potassium 25 MG TABLET PO (09:16)
[2021-10-26] MEDS: cloNIDine HCL 0.1 MG TABLET PO ×3 (09:16→21:25)
[2021-10-26] MEDS: ARIPiprazole 20 MG TABLET PO (09:16)
[2021-10-26] MEDS: Cholecalciferol (Vitamin D3) 10 MCG TABLET PO (09:16)
[2021-10-26] MEDS: metFORMIN HCl 1,000 MG TABLET 1000 MG PO ×2 (09:16→21:25)
[2021-10-26] MEDS: Multivitamin TABLET 1 TAB PO (09:16)
[2021-10-26] MEDS: Ascorbic Acid 500 MG TABLET 1000 MG PO (09:16)
[2021-10-26] MEDS: cloZAPine 25 MG TABLET 150 MG PO ×2 (09:16→21:24)
[2021-10-26] MEDS: buPROPion HCL 100 MG TABLET PO (09:16)
[2021-10-26] MEDS: Cyanocobalamin (Vitamin B-12) 1,000 MCG TABLET 1000 MCG PO (09:16)
[2021-10-26 09:29] VITALS: BP 133/89; PULSE 124; RESP 16; TEMP 36.3; O2SAT 98
[2021-10-26] MEDS: Enoxaparin Sodium 40 MG/0.4 ML SYRINGE SUBCUT (11:47)
[2021-10-26 14:28] VITALS: BP 122/78; PULSE 123
--- NOTE | 2021-10-26 15:08 | HO.PSYCHPN ---
Subjective Subjective Date of Service: 10/26/21 Reason For Visit: Depression paranoia Healthcare Proxy: Yes Interim History: Patient seen and discussed with team. Patient reportedly with significant thought blocking and latency. It took 12 minutes for the nurse to administer her medications. Patient seen. She was in the common area. She came willingly. She had psychomotor retardation and walked slowly. She said she feels anxious but couldn't identify why. Her speech is a whisper and she speaks monosyllabically and softly. She appears preoccupied. She denies AH but appears preoccupied. She denies SI. She says she is worried she is going to halfway. She doesn't know why, however. Medication Compliance: Yes Side effects from medications: No Review of Systems Review of Systems Constitutional : No Weight loss, No Fever, No Chills, No Fatigue, No Malaise ENT/Mouth : No sore throat, No Rhinorrhea Eyes: No Eye Pain, No Swelling, No Redness Cardiovascular : No Chest Pain, No SOB, No Dyspnea on Exertion, No Orthopnea, No Edema, No Palpitations Respiratory : No Cough, No Sputum, No Wheezing Gastrointestinal : No Nausea, No Vomiting, No Diarrhea, No Constipation, No abdominal Pain, No Hematochezia, No Melena Genitourinary : No Dysuria, No Urinary Frequency, No Hematuria, Musculoskeletal : No joint pain, No Myalgias, No Joint Swelling Skin : No Skin Lesions, No rash Neuro : No Weakness, No Numbness, No Dizziness, No Headache Psych : + Anxiety/Panic, + Depression All other systems reviewed and are negative Yes all other systems are reviewed and are negative and Unobtainable due to mental status Reports behavioral changes, Reports confusion and Reports memory loss Psychiatric: Reports abnormal sleep pattern (last night per pt report), Reports anxiety, Reports behavioral changes, Reports confusion, Reports depression, Reports difficulty concentrating, Reports auditory hallucinations, Reports hopelessness, Reports anhedonia, Reports memory loss, Reports mood swings, Reports paranoia and Reports suicidal ideation (denies) Mental Status Exam Mental Status Exam Narrative: Patient Appearance:?casual dress. Patient Orientation:?Person, Place, Time and Situation Level of Consciousness:?Alert Patient Behavior:?Guarded and Suspicious, perplexed and anxious. Mood Description:?Anxious Affect Description:?Flat, anxious Patient Cognition Impaired:?No Ability to Follow Directions:?Good Speech Pattern:?Perseverating, slow, soft, latent. Memory Description:?Episodic Impaired Delusions:?Paranoid Ideation and delusions of guilt Perceptual Disturbances:?Depersonalization and Derealization Thought Process:?Distracted, Rumination and Slowed Thinking Thought Content:?delusions Depressive Symptoms:?Diff. Making Decisions and Difficulty Concentrating Judgement:?Poor Patient Appearance: Appropriate Patient Orientation: Person, Place, Time and Situation Level of Consciousness: Awake and Alert Patient Behavior: Guarded, Cooperative, Passive, Suspicious, Timid, Anxious, Fearful, Distractible, Good Eye Contact and Poor Eye Contact Mood Description: Anxious, Flat, Nervous and Apprehensive Affect Description: Withdrawn, Anxious, Flat and Nervous Patient Cognition Impaired: No Ability to Follow Directions: Good Speech Pattern: Impoverished, Difficulty Finding Words, Monotone, Whisper, Soft-Spoken, Mumbled, Delayed and Long Pauses Memory Description: Intact Hallucinations: None Delusions: Paranoid Ideation (guilt) Thought Process: Distracted, Rumination and Slowed Thinking Thought Content: positive for Perseveration, positive for Preoccupation, positive for Thought Blocking and positive for Slowed Thinking Depressive Symptoms: Increased Anxiety, Diff. Making Decisions, Feelings of Worthlessness, Hopelessness, Feelings of Guilt, Low Self Esteem and Difficulty Concentrating Abnormal Motor Activity Signs and Symptoms: Psychomotor Retardation Judgement: Poor Diagnostics Vital Signs (24Hr): Vital Signs - 24 hr 10/25/21 18:00 10/26/21 09:29 10/26/21 14:28 Temperature 98.5 F 97.4 F Pulse Rate 128 H 124 H 123 H Respiratory Rate 16 Blood Pressure 132/83 133/89 122/78 Pulse Oximetry 98 98 BMI result Body Mass Index 31.0 Labs Results: 10/22/21 09:07 10/22/21 09:07 Labs: Laboratory Results - last 48 hr 10/26/21 09:10 POC Glucose 141 H Medications Medications Current Medications Acetaminophen (Acetaminophen 325 Mg Tablet) 650 mg PO Q6H PRN PRN Reason: Headache/Pain Mild Scale (1-3) Al Hydroxide/Mg Hydroxide (Magnesium Hydrox/Alum Hydrox 30 Ml Oral.Susp) 30 ml PO Q6H PRN PRN Reason: Heartburn/Nausea Last Admin: 10/02/21 14:41 Dose: 30 ml Documented by: Aripiprazole (Aripiprazole 20 Mg Tablet) 20 mg PO DAILY [facility] Last Admin: 10/26/21 09:16 Dose: 20 mg Documented by: Ascorbic Acid (Ascorbic Acid 500 Mg Tablet) 1,000 mg PO DAILY [facility] Last Admin: 10/26/21 09:16 Dose: 1,000 mg Documented by: Atorvastatin Calcium (Atorvastatin Calcium 10 Mg Tablet) 5 mg PO BEDTIME [facility] Last Admin: 10/25/21 22:11 Dose: 5 mg Documented by: Bupropion HCl (Bupropion Hcl 100 Mg Tablet) 100 mg PO DAILY [facility] Last Admin: 10/26/21 09:16 Dose: 100 mg Documented by: Clonidine HCl (Clonidine Hcl 0.1 Mg Tablet) 0.1 mg PO TID [facility]; Protocol Last Admin: 10/26/21 14:25 Dose: 0.1 mg Documented by: Clozapine (Clozapine 25 Mg Tablet) 150 mg PO BID [facility] Last Admin: 10/26/21 09:16 Dose: 150 mg Documented by: Cyanocobalamin (Cyanocobalamin (Vitamin B-12) 1,000 Mcg Tablet) 1,000 mcg PO DAILY [facility] Last Admin: 10/26/21 09:16 Dose: 1,000 mcg Documented by: Dexamethasone (Dexamethasone 4 Mg Tablet) 8 mg PO Tu@0800 [facility] Last Admin: 10/22/21 09:51 Dose: 8 mg Documented by: Docusate Sodium (Docusate Sodium 100 Mg Capsule) 100 mg PO BEDTIME [facility] Last Admin: 10/25/21 21:54 Dose: 100 mg Documented by: Enoxaparin Sodium (Enoxaparin Sodium 40 Mg/0.4 Ml Syringe) 40 mg SUBCUT Q24H [facility] Last Admin: 10/26/21 11:47 Dose: 40 mg Documented by: Ferrous Sulfate (Ferrous Sulfate 324 Mg Tablet.) 324 mg PO DAILY [facility] Last Admin: 10/26/21 09:16 Dose: 324 mg Documented by: Hydroxyzine HCl (Hydroxyzine Hcl 25 Mg Tablet) 25 mg PO BEDTIME PRN PRN Reason: Anxiety Lorazepam (Lorazepam 0.5 Mg Tablet) 0.5 mg PO Q4H PRN PRN Reason: anxiety, catatonia Last Admin: 10/13/21 21:09 Dose: 0.5 mg Documented by: Losartan Potassium (Losartan Potassium 25 Mg Tablet) 25 mg PO DAILY [facility]; Protocol Last Admin: 10/26/21 09:16 Dose: 25 mg Documented by: Magnesium Hydroxide (Milk Of Magnesia 30 Ml Oral.Susp) 30 ml PO DAILY PRN PRN Reason: Constipation Metformin HCl (Metformin Hcl 1,000 Mg Tablet) 1,000 mg PO BID [facility] Last Admin: 10/26/21 09:16 Dose: 1,000 mg Documented by: Multivitamins/Vitamin C (Multivitamin Tablet) 1 tab PO DAILY [facility] Last Admin: 10/26/21 09:16 Dose: 1 tab Documented by: Non-Formulary Medication (Cinnamon) 1,000 mg PO DAILY [facility] Last Admin: 10/26/21 09:15 Dose: 1,000 mg Documented by: Patient Own Medication ( Empagliflozin 10 Mg) 1 each PO DAILY [facility] Last Admin: 10/26/21 09:16 Dose: 1 each Documented by: Omeprazole (Omeprazole 20 Mg Capsule.) 20 mg PO DAILY@0630 [facility] Last Admin: 10/26/21 09:16 Dose: 20 mg Documented by: Ondansetron HCl (Ondansetron Odt 8 Mg Tab.Rapdis) 8 mg TRANSLINGU Q8H PRN PRN Reason: nausea Prazosin HCl (Prazosin Hcl 1 Mg Capsule) 1 mg PO BEDTIME PRN; Protocol PRN Reason: nightmares Trazodone HCl (Trazodone Hcl 50 Mg Tablet) 50 mg PO BEDTIME PRN PRN Reason: Insomnia Last Admin: 10/26/21 03:25 Dose: 50 mg Documented by: Vitamin D (Cholecalciferol (Vitamin D3) 10 Mcg Tablet) 10 mcg PO DAILY [facility] Last Admin: 10/26/21 09:16 Dose: 10 mcg Documented by: Allergies Allergies Allergy/AdvReac Type Severity Reaction Status Date / Time lisinopril [LISINOPRIL] Allergy Unknown SWOLLEN Verified 09/17/21 08:42 LIPS, angioedema, swelling Assessment & Plan Assessment & Plan (1) Schizoaffective disorder: Status: Acute Code(s): F25.9 - Schizoaffective disorder, unspecified (2) Invasive ductal carcinoma of right breast: Status: Acute Code(s): C50.911 - Malignant neoplasm of unspecified site of right female breast (3) Hypertension: Qualifiers: Hypertension type: essential hypertension Qualified Code(s): I10 - Essential (primary) hypertension Status: Acute Code(s): I10 - Essential (primary) hypertension (4) Hypercholesterolemia: Status: Acute Code(s): E78.00 - Pure hypercholesterolemia, unspecified (5) Type 2 diabetes mellitus with hyperglycemia: Qualifiers: Diabetes mellitus shelter insulin use: without buttermaker helper use Qualified Code(s): E11.65 - Type 2 diabetes mellitus with hyperglycemia Status: Acute Code(s): E11.65 - Type 2 diabetes mellitus with hyperglycemia Assessment and Plan: Continue metformin Jardiance not on formulary monitor point of care (6) GERD (gastroesophageal reflux disease): Qualifiers: Esophagitis presence: without esophagitis Qualified Code(s): K21.9 - Gastro-esophageal reflux disease without esophagitis Status: Acute Code(s): K21.9 - Gastro-esophageal reflux disease without esophagitis Plan 50 yo female, hx of schizoaffective disorder, depressed with R breast cancer, having just completed first cycle of chemotherapy. Pt's partner and sister report to crisis team that pt has had a significant mental status change with psychotic symptoms, paranoia, perceptual alterations, poor sleep and significant thought blocking. Pt denies SI, HI. Today she is a very poor historian-almost pre-catatonic at times, considering signing a three day notice of intent. Team report by history she may not be comfortable in this facility. Assessment plan for 09/21/2021 Continue current medical treatment elevated white blood count noted over the past month question related to cancer treatment. No evidence of infection Patient depressed withdrawn preoccupied patient with recent treatment for ductal carcinoma stress of this might certainly lead to depressive almost catatonic episode 09/22/21 Pt with thought blocking improved from yeterday have restarted wellbutin hosp did not have sr cont clozapine evaluate baseline denies self harm oob more 09/23/21 Continue current plan of care. Collateral contacts with OP team, oncology. 09/24/21 Increase Abilify to 30 mg daily Pt currently refusing Lorazepam TDN expires 09/25/21-will file for civil commitment if pt persists in wanting discharge 09/25/21 Civil commitment filing completed Continue current regime. 09/26/21 Continue current regime 09/27/32 Decrease Abilify to 20 mg daily Risperdal 1.5 mg HS 09/28/21 Continue plan as above 09/29/21 No changes 09/30/21 Court 10/01/21 Chemotherapy 10/01/21 Increase Risperdal to 2.5 mg HS Decrease Abilify to 10 mg daily 10/02/21 Tolerating change back to Abilify from Risperdal Appetite is improved. Calmer, more visable, however continues with paranoia Jardiance ordered from [facility] pharmacy 10/03/21 Increase Abilify to 30 mg daily Will pursue validation of pt's HCP for continued chemotherapy Tentative chemotherapy 10/09. 10/04/21 Continue current regime 10/05 no changes to current regimen 10/06 no changes to current regimen 10/07/21 No positive effect from increase in Abilify Increase Clozaril to 100 mg bid, an increase of 50 mg daily, divided. Chemotherapy 10/09/21, Labs 10/08/21. 10/08/21 Tolerating Clozaril increase thus far Dexamethasone 4 mg hs and 4 mg a.m. pre chemo per Dr. Mora Support, encourage 10/09/21 Continue current plan of care 10/10/21 Continue current plan of care 10/11/21 Continue current plan. Will re-eval for Clozaril increase next week. 10/12/2021: Continue current regimen and plans. No changes were made today 10/13/2021: Continue current plans and regimen. 10/14/21: Increase Clozaril to 125 mg bid EKG, CBCD, CMP 10/15 prior to chemotherapy 10/15/21: Continue current plan of care 10/16/21: Continue current plan. Tolerating Clozaril increase 10/17/21: Continue current regime. 10/18/21: Increase Clozaril to 150 mg bid Decrease Abilify to 20 mg daily ECT Consult 10/19/21: continue meds unchanged 10/20/21: pt continue to present as paranoid, withdrawn 10/21/21: Continue current regime. Labs/EKG 10/22. Some improvement today. 10/22/21: Labs/EKG WNL Meeting 10/24 with health care proxy's to discuss clozaril discontinuation ECT Consult 10/24/21: Continue current plan. 10/25/21: Continue current plan. 10/26: ECT may be indicated. Change Ativan to standing dose. I spent minutes with the patient and/or on the patient floor today, greater than?50% of which was spent counseling/coordinating care. Reason for contiued inpatient stay Substantial Risk for: inability to function, rapid decompensation and med/psych decompensation
[2021-10-26 18:00] VITALS: BP 122/75; PULSE 88; RESP 16
[2021-10-26] MEDS: Atorvastatin Calcium 10 MG TABLET 5 MG PO (21:25)
[2021-10-26] MEDS: Docusate Sodium 100 MG CAPSULE PO (21:25)
[2021-10-26] MEDS: LORazepam 0.5 MG TABLET PO (22:38)
[2021-10-27] MEDS: Omeprazole 20 MG CAPSULE.DR PO (06:08)
[2021-10-27 06:41] LABS: Glucose, Whole Blood 123 mg/dL (60-115)
[2021-10-27] MEDS: Ascorbic Acid 500 MG TABLET 1000 MG PO (08:43)
[2021-10-27] MEDS: cloZAPine 25 MG TABLET 150 MG PO ×2 (08:43→20:48)
[2021-10-27] MEDS: buPROPion HCL 100 MG TABLET PO (08:43)
[2021-10-27] MEDS: ARIPiprazole 20 MG TABLET PO (08:44)
[2021-10-27] MEDS: Multivitamin TABLET 1 TAB PO (08:44)
[2021-10-27] MEDS: Cyanocobalamin (Vitamin B-12) 1,000 MCG TABLET 1000 MCG PO (08:44)
[2021-10-27] MEDS: Ferrous Sulfate 324 MG TABLET.DR PO (08:44)
[2021-10-27] MEDS: Losartan Potassium 25 MG TABLET PO (08:44)
[2021-10-27] MEDS: metFORMIN HCl 1,000 MG TABLET 1000 MG PO ×2 (08:44→20:48)
[2021-10-27] MEDS: Cholecalciferol (Vitamin D3) 10 MCG TABLET PO (08:44)
[2021-10-27] MEDS: cloNIDine HCL 0.1 MG TABLET PO ×2 (08:44→20:48)
[2021-10-27] MEDS: LORazepam 0.5 MG TABLET PO (08:44)
[2021-10-27 08:52] VITALS: BP 105/77; PULSE 123; RESP 16; TEMP 36.4; O2SAT 99
[2021-10-27] MEDS: Enoxaparin Sodium 40 MG/0.4 ML SYRINGE SUBCUT (11:22)
--- NOTE | 2021-10-27 13:46 | HO.PSYCHPN ---
Subjective Subjective Date of Service: 10/27/21 Reason For Visit: Depression paranoia Interim History: Patient seen and discussed with team. Patient seems improved. She is more communicative. She is talking more freely. She said she is worried she might go to alf because in her nightmares she sees herself hurting her partner. Her interactions are more spontaneous. She says she is a little tired today. She is alert. She is oriented to time, place and person. She says she had a visit with her brother yesterday and he told her she is not going to alf and doesn't have to worry about that. RN says today she took her medications more willingly and without the hesitation and ambivalence and RN spent 3 minutes rather than the 12 minutes like yesterday. She appears preoccupied. She denies AH but appears preoccupied. She denies SI. Review of Systems Review of Systems Constitutional : No Weight loss, No Fever, No Chills, No Fatigue, No Malaise ENT/Mouth : No sore throat, No Rhinorrhea Eyes: No Eye Pain, No Swelling, No Redness Cardiovascular : No Chest Pain, No SOB, No Dyspnea on Exertion, No Orthopnea, No Edema, No Palpitations Respiratory : No Cough, No Sputum, No Wheezing Gastrointestinal : No Nausea, No Vomiting, No Diarrhea, No Constipation, No abdominal Pain, No Hematochezia, No Melena Genitourinary : No Dysuria, No Urinary Frequency, No Hematuria, Musculoskeletal : No joint pain, No Myalgias, No Joint Swelling Skin : No Skin Lesions, No rash Neuro : No Weakness, No Numbness, No Dizziness, No Headache Psych : + Anxiety/Panic, + Depression All other systems reviewed and are negative Yes all other systems are reviewed and are negative and Unobtainable due to mental status Reports behavioral changes, Reports confusion and Reports memory loss Psychiatric: Reports abnormal sleep pattern (last night per pt report), Reports anxiety, Reports behavioral changes, Reports confusion, Reports depression, Reports difficulty concentrating, Reports auditory hallucinations, Reports hopelessness, Reports anhedonia, Reports memory loss, Reports mood swings, Reports paranoia and Reports suicidal ideation (denies) Mental Status Exam Mental Status Exam Narrative: Patient Appearance:?casual dress. Patient Orientation:?Person, Place, Time and Situation Level of Consciousness:?Alert Patient Behavior:?Guarded and Suspicious, perplexed and anxious. Mood Description:?Anxious Affect Description:?Flat, anxious Patient Cognition Impaired:?No Ability to Follow Directions:?Good Speech Pattern:?Perseverating, slow, soft, latent. Memory Description:?Episodic Impaired Delusions:?Paranoid Ideation and delusions of guilt Perceptual Disturbances:?Depersonalization and Derealization Thought Process:?Distracted, Rumination and Slowed Thinking Thought Content:?delusions Depressive Symptoms:?Diff. Making Decisions and Difficulty Concentrating Judgement:?Poor Patient Appearance: Appropriate Patient Orientation: Person, Place, Time and Situation Level of Consciousness: Awake and Alert Patient Behavior: Guarded, Cooperative, Passive, Suspicious, Timid, Anxious, Fearful, Distractible, Good Eye Contact and Poor Eye Contact Mood Description: Anxious, Flat, Nervous and Apprehensive Affect Description: Withdrawn, Anxious, Flat and Nervous Patient Cognition Impaired: No Ability to Follow Directions: Good Speech Pattern: Impoverished, Difficulty Finding Words, Monotone, Whisper, Soft-Spoken, Mumbled, Delayed and Long Pauses Memory Description: Intact Diagnostics Vital Signs (24Hr): Vital Signs - 24 hr 10/26/21 14:28 10/26/21 18:00 10/27/21 08:52 Temperature 97.6 F Pulse Rate 123 H 88 123 H Respiratory Rate 16 16 Blood Pressure 122/78 122/75 105/77 Pulse Oximetry 99 BMI result Body Mass Index 31.0 Labs Results: 10/22/21 09:07 10/22/21 09:07 Labs: Laboratory Results - last 48 hr 10/26/21 10/27/21 09:10 06:09 POC Glucose 141 H 123 H Medications Medications Current Medications Acetaminophen (Acetaminophen 325 Mg Tablet) 650 mg PO Q6H PRN PRN Reason: Headache/Pain Mild Scale (1-3) Al Hydroxide/Mg Hydroxide (Magnesium Hydrox/Alum Hydrox 30 Ml Oral.Susp) 30 ml PO Q6H PRN PRN Reason: Heartburn/Nausea Last Admin: 10/02/21 14:41 Dose: 30 ml Documented by: Aripiprazole (Aripiprazole 20 Mg Tablet) 20 mg PO DAILY [facility] Last Admin: 10/27/21 08:44 Dose: 20 mg Documented by: Ascorbic Acid (Ascorbic Acid 500 Mg Tablet) 1,000 mg PO DAILY [facility] Last Admin: 10/27/21 08:43 Dose: 1,000 mg Documented by: Atorvastatin Calcium (Atorvastatin Calcium 10 Mg Tablet) 5 mg PO BEDTIME [facility] Last Admin: 10/26/21 21:25 Dose: 5 mg Documented by: Bupropion HCl (Bupropion Hcl 100 Mg Tablet) 100 mg PO DAILY [facility] Last Admin: 10/27/21 08:43 Dose: 100 mg Documented by: Clonidine HCl (Clonidine Hcl 0.1 Mg Tablet) 0.1 mg PO TID [facility]; Protocol Last Admin: 10/27/21 08:44 Dose: 0.1 mg Documented by: Clozapine (Clozapine 25 Mg Tablet) 150 mg PO BID [facility] Last Admin: 10/27/21 08:43 Dose: 150 mg Documented by: Cyanocobalamin (Cyanocobalamin (Vitamin B-12) 1,000 Mcg Tablet) 1,000 mcg PO DAILY [facility] Last Admin: 10/27/21 08:44 Dose: 1,000 mcg Documented by: Dexamethasone (Dexamethasone 4 Mg Tablet) 8 mg PO Tu@0800 [facility] Last Admin: 10/22/21 09:51 Dose: 8 mg Documented by: Docusate Sodium (Docusate Sodium 100 Mg Capsule) 100 mg PO BEDTIME [facility] Last Admin: 10/26/21 21:25 Dose: 100 mg Documented by: Enoxaparin Sodium (Enoxaparin Sodium 40 Mg/0.4 Ml Syringe) 40 mg SUBCUT Q24H [facility] Last Admin: 10/27/21 11:22 Dose: 40 mg Documented by: Ferrous Sulfate (Ferrous Sulfate 324 Mg Tablet.) 324 mg PO DAILY [facility] Last Admin: 10/27/21 08:44 Dose: 324 mg Documented by: Hydroxyzine HCl (Hydroxyzine Hcl 25 Mg Tablet) 25 mg PO BEDTIME PRN PRN Reason: Anxiety Lorazepam (Lorazepam 0.5 Mg Tablet) 0.5 mg PO QID [facility] Last Admin: 10/27/21 08:44 Dose: 0.5 mg Documented by: Losartan Potassium (Losartan Potassium 25 Mg Tablet) 25 mg PO DAILY [facility]; Protocol Last Admin: 10/27/21 08:44 Dose: 25 mg Documented by: Magnesium Hydroxide (Milk Of Magnesia 30 Ml Oral.Susp) 30 ml PO DAILY PRN PRN Reason: Constipation Metformin HCl (Metformin Hcl 1,000 Mg Tablet) 1,000 mg PO BID [facility] Last Admin: 10/27/21 08:44 Dose: 1,000 mg Documented by: Multivitamins/Vitamin C (Multivitamin Tablet) 1 tab PO DAILY [facility] Last Admin: 10/27/21 08:44 Dose: 1 tab Documented by: Non-Formulary Medication (Cinnamon) 1,000 mg PO DAILY [facility] Last Admin: 10/27/21 08:43 Dose: 1,000 mg Documented by: Patient Own Medication ( Empagliflozin 10 Mg) 1 each PO DAILY [facility] Last Admin: 10/27/21 08:43 Dose: 1 each Documented by: Omeprazole (Omeprazole 20 Mg Capsule.Dr) 20 mg PO DAILY@0630 [facility] Last Admin: 10/27/21 06:08 Dose: 20 mg Documented by: Ondansetron HCl (Ondansetron Odt 8 Mg Tab.Rapdis) 8 mg TRANSLINGU Q8H PRN PRN Reason: nausea Prazosin HCl (Prazosin Hcl 1 Mg Capsule) 1 mg PO BEDTIME PRN; Protocol PRN Reason: nightmares Trazodone HCl (Trazodone Hcl 50 Mg Tablet) 50 mg PO BEDTIME PRN PRN Reason: Insomnia Last Admin: 10/26/21 03:25 Dose: 50 mg Documented by: Vitamin D (Cholecalciferol (Vitamin D3) 10 Mcg Tablet) 10 mcg PO DAILY [facility] Last Admin: 10/27/21 08:44 Dose: 10 mcg Documented by: Allergies Allergies Allergy/AdvReac Type Severity Reaction Status Date / Time lisinopril [LISINOPRIL] Allergy Unknown SWOLLEN Verified 09/17/21 08:42 LIPS, angioedema, swelling Assessment & Plan Assessment & Plan (1) Schizoaffective disorder: Status: Acute Code(s): F25.9 - Schizoaffective disorder, unspecified (2) Invasive ductal carcinoma of right breast: Status: Acute Code(s): C50.911 - Malignant neoplasm of unspecified site of right female breast (3) Hypertension: Qualifiers: Hypertension type: essential hypertension Qualified Code(s): I10 - Essential (primary) hypertension Status: Acute Code(s): I10 - Essential (primary) hypertension (4) Hypercholesterolemia: Status: Acute Code(s): E78.00 - Pure hypercholesterolemia, unspecified (5) Type 2 diabetes mellitus with hyperglycemia: Qualifiers: Diabetes mellitus fci insulin use: without fci use Qualified Code(s): E11.65 - Type 2 diabetes mellitus with hyperglycemia Status: Acute Code(s): E11.65 - Type 2 diabetes mellitus with hyperglycemia Assessment and Plan: Continue metformin Jardiance not on formulary monitor point of care (6) GERD (gastroesophageal reflux disease): Qualifiers: Esophagitis presence: without esophagitis Qualified Code(s): K21.9 - Gastro-esophageal reflux disease without esophagitis Status: Acute Code(s): K21.9 - Gastro-esophageal reflux disease without esophagitis Plan 50 yo female, hx of schizoaffective disorder, depressed with R breast cancer, having just completed first cycle of chemotherapy. Pt's partner and sister report to crisis team that pt has had a significant mental status change with psychotic symptoms, paranoia, perceptual alterations, poor sleep and significant thought blocking. Pt denies SI, HI. Today she is a very poor historian-almost pre-catatonic at times, considering signing a three day notice of intent. Team report by history she may not be comfortable in this facility. Assessment plan for 09/21/2021 Continue current medical treatment elevated white blood count noted over the past month question related to cancer treatment. No evidence of infection Patient depressed withdrawn preoccupied patient with recent treatment for ductal carcinoma stress of this might certainly lead to depressive almost catatonic episode 09/22/21 Pt with thought blocking improved from yeterday have restarted wellbutin hosp did not have sr cont clozapine evaluate baseline denies self harm oob more 09/23/21 Continue current plan of care. Collateral contacts with OP team, oncology. 09/24/21 Increase Abilify to 30 mg daily Pt currently refusing Lorazepam TDN expires 09/25/21-will file for civil commitment if pt persists in wanting discharge 09/25/21 Civil commitment filing completed Continue current regime. 09/26/21 Continue current regime 09/27/32 Decrease Abilify to 20 mg daily Risperdal 1.5 mg HS 09/28/21 Continue plan as above 09/29/21 No changes 09/30/21 Court 10/01/21 Chemotherapy 10/01/21 Increase Risperdal to 2.5 mg HS Decrease Abilify to 10 mg daily 10/02/21 Tolerating change back to Abilify from Risperdal Appetite is improved. Calmer, more visable, however continues with paranoia Jardiance ordered from [facility] 10/03/21 Increase Abilify to 30 mg daily Will pursue validation of pt's HCP for continued chemotherapy Tentative chemotherapy 10/09. 10/04/21 Continue current regime 10/05 no changes to current regimen 10/06 no changes to current regimen 10/07/21 No positive effect from increase in Abilify Increase Clozaril to 100 mg bid, an increase of 50 mg daily, divided. Chemotherapy 10/09/21, Labs 10/08/21. 10/08/21 Tolerating Clozaril increase thus far Dexamethasone 4 mg hs and 4 mg a.m. pre chemo per Dr. Mora Support, encourage 10/09/21 Continue current plan of care 10/10/21 Continue current plan of care 10/11/21 Continue current plan. Will re-eval for Clozaril increase next week. 10/12/2021: Continue current regimen and plans. No changes were made today 10/13/2021: Continue current plans and regimen. 10/14/21: Increase Clozaril to 125 mg bid EKG, CBCD, CMP 10/15 prior to chemotherapy 10/15/21: Continue current plan of care 10/16/21: Continue current plan. Tolerating Clozaril increase 10/17/21: Continue current regime. 10/18/21: Increase Clozaril to 150 mg bid Decrease Abilify to 20 mg daily ECT Consult 10/19/21: continue meds unchanged 10/20/21: pt continue to present as paranoid, withdrawn 10/21/21: Continue current regime. Labs/EKG 10/22. Some improvement today. 10/22/21: Labs/EKG WNL Meeting 10/24 with health care proxy's to discuss clozaril discontinuation ECT Consult 10/24/21: Continue current plan. 10/25/21: Continue current plan. 10/26: ECT may be indicated. Change Ativan to standing dose. 10/27 Increase Ativan to 1 mg TID and watch for sedation I spent minutes with the patient and/or on the patient floor today, greater than?50% of which was spent counseling/coordinating care. Reason for contiued inpatient stay Substantial Risk for: inability to function and rapid decompensation
[2021-10-27 14:01] VITALS: BP 92/62; PULSE 61
[2021-10-27] MEDS: LORazepam 1 MG TABLET PO ×2 (14:02→20:48)
[2021-10-27] MEDS: Docusate Sodium 100 MG CAPSULE PO (20:47)
[2021-10-27] MEDS: Atorvastatin Calcium 10 MG TABLET 5 MG PO (20:47)
[2021-10-28 08:41] LABS: Glucose, Whole Blood 160 mg/dL (60-115)
[2021-10-28] MEDS: Ascorbic Acid 500 MG TABLET 1000 MG PO (09:55)
[2021-10-28] MEDS: buPROPion HCL 100 MG TABLET PO (09:55)
[2021-10-28] MEDS: cloZAPine 25 MG TABLET 150 MG PO ×2 (09:55→20:46)
[2021-10-28] MEDS: Cyanocobalamin (Vitamin B-12) 1,000 MCG TABLET 1000 MCG PO (09:55)
[2021-10-28] MEDS: cloNIDine HCL 0.1 MG TABLET PO ×3 (09:55→20:46)
[2021-10-28] MEDS: Losartan Potassium 25 MG TABLET PO (09:56)
[2021-10-28] MEDS: ARIPiprazole 20 MG TABLET PO (09:56)
[2021-10-28] MEDS: Cholecalciferol (Vitamin D3) 10 MCG TABLET PO (09:56)
[2021-10-28] MEDS: LORazepam 1 MG TABLET PO ×3 (09:57→20:46)
[2021-10-28] MEDS: Ferrous Sulfate 324 MG TABLET.DR PO (09:57)
[2021-10-28] MEDS: metFORMIN HCl 1,000 MG TABLET 1000 MG PO ×2 (09:57→20:46)
[2021-10-28 10:00] VITALS: BP 131/90; PULSE 106; RESP 16; TEMP 36.3; O2SAT 97
[2021-10-28] MEDS: Omeprazole 20 MG CAPSULE.DR PO (10:05)
[2021-10-28] MEDS: Enoxaparin Sodium 40 MG/0.4 ML SYRINGE SUBCUT (10:10)
[2021-10-28] MEDS: Multivitamin TABLET 1 TAB PO (10:17)
[2021-10-28 13:00] VITALS: BP 115/78; PULSE 118; RESP 16; O2SAT 100
--- NOTE | 2021-10-28 14:40 | HO.PSYCHPN ---
Subjective Subjective Date of Service: 10/28/21 Reason For Visit: Depression paranoia Subjective Notes: Section 8 Healthcare Proxy: Yes (affirmed,validated by the court.) Guardianship: No Medical Problems Affecting Mental Status: Yes (breast cancer, chemotherapy, phase 2 in process) Interim History: Team reports some improvement over the weekend with med changed to Lorazepam 1 mg tid standing dose. Pt more talkative, interactive with less thought blocking and paucity. Today, not much change-able to ask questions regarding what she needs to do to go home, rationale for labs/EKG, diabetic diet rationale and parameters. Partner reports Thursday and Thursday were bad days. Thursday was very good for pt. Clozapine levels are continuing to be pending. Sister reports pt took the news reluctantly from her brother in law (a state chief of police) that no legal charges were pending during their visit on Thursday. ECT consult is pending. Medication Compliance: Yes Side effects from medications: No Attending Groups: Intermittent Review of Systems Acute medical concerns: Yes Breast Cancer-Chemotherapy Phase II Medical Review of Systems: unchanged Review of Systems Reports confusion and Reports memory loss Psychiatric: Reports anxiety, Reports confusion, Reports depression, Reports difficulty concentrating, Reports hopelessness, Reports anhedonia, Reports memory loss and Reports suicidal ideation (denies) Mental Status Exam Mental Status Exam Patient Appearance: Appropriate Patient Orientation: Person, Place, Time and Situation Level of Consciousness: Alert Patient Behavior: Talkative, Suspicious, Anxious, Fearful, Distractible and Good Eye Contact Mood Description: Apprehensive Affect Description: Apprehensive Patient Cognition Impaired: No Ability to Follow Directions: Good Speech Pattern: Spontaneous Speech Memory Description: Remote Impaired and Episodic Impaired Hallucinations: None Delusions: Paranoid Ideation Perceptual Disturbances: Depersonalization and Derealization Thought Process: Distracted and Rumination Thought Content: positive for Sheldon, positive for Circumstantial, positive for Perseveration and positive for Suicidal Ideation (denies) Depressive Symptoms: Increased Anxiety, Diff. Making Decisions, Hopelessness, Thoughts of /Suicide (denies) and Difficulty Concentrating Judgement: Fair Diagnostics Vital Signs (24Hr): Vital Signs - 24 hr 10/28/21 10:00 Temperature 97.4 F Pulse Rate 106 H Respiratory Rate 16 Blood Pressure 131/90 H Pulse Oximetry 97 BMI result Body Mass Index 31.0 Labs Results: 10/22/21 09:07 10/22/21 09:07 Labs: Laboratory Results - last 48 hr 10/27/21 10/28/21 06:09 08:37 POC Glucose 123 H 160 H Medications Medications Current Medications Acetaminophen (Acetaminophen 325 Mg Tablet) 650 mg PO Q6H PRN PRN Reason: Headache/Pain Mild Scale (1-3) Al Hydroxide/Mg Hydroxide (Magnesium Hydrox/Alum Hydrox 30 Ml Oral.Susp) 30 ml PO Q6H PRN PRN Reason: Heartburn/Nausea Last Admin: 10/02/21 14:41 Dose: 30 ml Documented by: Aripiprazole (Aripiprazole 20 Mg Tablet) 20 mg PO DAILY [facility] Last Admin: 10/28/21 09:56 Dose: 20 mg Documented by: Ascorbic Acid (Ascorbic Acid 500 Mg Tablet) 1,000 mg PO DAILY [facility] Last Admin: 10/28/21 09:55 Dose: 1,000 mg Documented by: Atorvastatin Calcium (Atorvastatin Calcium 10 Mg Tablet) 5 mg PO BEDTIME [facility] Last Admin: 10/27/21 20:47 Dose: 5 mg Documented by: Bupropion HCl (Bupropion Hcl 100 Mg Tablet) 100 mg PO DAILY [facility] Last Admin: 10/28/21 09:55 Dose: 100 mg Documented by: Clonidine HCl (Clonidine Hcl 0.1 Mg Tablet) 0.1 mg PO TID [facility]; Protocol Last Admin: 10/28/21 09:55 Dose: 0.1 mg Documented by: Clozapine (Clozapine 25 Mg Tablet) 150 mg PO BID [facility] Last Admin: 10/28/21 09:55 Dose: 150 mg Documented by: Cyanocobalamin (Cyanocobalamin (Vitamin B-12) 1,000 Mcg Tablet) 1,000 mcg PO DAILY [facility] Last Admin: 10/28/21 09:55 Dose: 1,000 mcg Documented by: Dexamethasone (Dexamethasone 4 Mg Tablet) 8 mg PO Tu@0800 [facility] Last Admin: 10/22/21 09:51 Dose: 8 mg Documented by: Docusate Sodium (Docusate Sodium 100 Mg Capsule) 100 mg PO BEDTIME [facility] Last Admin: 10/27/21 20:47 Dose: 100 mg Documented by: Enoxaparin Sodium (Enoxaparin Sodium 40 Mg/0.4 Ml Syringe) 40 mg SUBCUT Q24H [facility] Last Admin: 10/28/21 10:10 Dose: 40 mg Documented by: Ferrous Sulfate (Ferrous Sulfate 324 Mg Tablet.) 324 mg PO DAILY [facility] Last Admin: 10/28/21 09:57 Dose: 324 mg Documented by: Hydroxyzine HCl (Hydroxyzine Hcl 25 Mg Tablet) 25 mg PO BEDTIME PRN PRN Reason: Anxiety Lorazepam (Lorazepam 1 Mg Tablet) 1 mg PO TID [facility] Last Admin: 10/28/21 09:57 Dose: 1 mg Documented by: Losartan Potassium (Losartan Potassium 25 Mg Tablet) 25 mg PO DAILY [facility]; Protocol Last Admin: 10/28/21 09:56 Dose: 25 mg Documented by: Magnesium Hydroxide (Milk Of Magnesia 30 Ml Oral.Susp) 30 ml PO DAILY PRN PRN Reason: Constipation Metformin HCl (Metformin Hcl 1,000 Mg Tablet) 1,000 mg PO BID [facility] Last Admin: 10/28/21 09:57 Dose: 1,000 mg Documented by: Multivitamins/Vitamin C (Multivitamin Tablet) 1 tab PO DAILY [facility] Last Admin: 10/28/21 10:17 Dose: 1 tab Documented by: Non-Formulary Medication (Cinnamon) 1,000 mg PO DAILY [facility] Last Admin: 10/28/21 09:55 Dose: 1,000 mg Documented by: Patient Own Medication ( Empagliflozin 10 Mg) 1 each PO DAILY [facility] Last Admin: 10/28/21 09:55 Dose: 1 each Documented by: Omeprazole (Omeprazole 20 Mg Capsule.) 20 mg PO DAILY@0630 [facility] Last Admin: 10/28/21 10:05 Dose: 20 mg Documented by: Ondansetron HCl (Ondansetron Odt 8 Mg Tab.Rapdis) 8 mg TRANSLINGU Q8H PRN PRN Reason: nausea Prazosin HCl (Prazosin Hcl 1 Mg Capsule) 1 mg PO BEDTIME PRN; Protocol PRN Reason: nightmares Trazodone HCl (Trazodone Hcl 50 Mg Tablet) 50 mg PO BEDTIME PRN PRN Reason: Insomnia Last Admin: 10/26/21 03:25 Dose: 50 mg Documented by: Vitamin D (Cholecalciferol (Vitamin D3) 10 Mcg Tablet) 10 mcg PO DAILY [facility] Last Admin: 10/28/21 09:56 Dose: 10 mcg Documented by: Allergies Allergies Allergy/AdvReac Type Severity Reaction Status Date / Time lisinopril [LISINOPRIL] Allergy Unknown SWOLLEN Verified 09/17/21 08:42 LIPS, angioedema, swelling Assessment & Plan Assessment & Plan (1) Schizoaffective disorder: Status: Acute Code(s): F25.9 - Schizoaffective disorder, unspecified (2) Invasive ductal carcinoma of right breast: Status: Acute Code(s): C50.911 - Malignant neoplasm of unspecified site of right female breast (3) Hypertension: Qualifiers: Hypertension type: essential hypertension Qualified Code(s): I10 - Essential (primary) hypertension Status: Acute Code(s): I10 - Essential (primary) hypertension (4) Hypercholesterolemia: Status: Acute Code(s): E78.00 - Pure hypercholesterolemia, unspecified (5) Type 2 diabetes mellitus with hyperglycemia: Qualifiers: Diabetes mellitus retirement insulin use: without 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 Qualified Code(s): E11.65 - Type 2 diabetes mellitus with hyperglycemia Status: Acute Code(s): E11.65 - Type 2 diabetes mellitus with hyperglycemia Assessment and Plan: Continue metformin Jardiance monitor point of care (6) GERD (gastroesophageal reflux disease): Qualifiers: Esophagitis presence: without esophagitis Qualified Code(s): K21.9 - Gastro-esophageal reflux disease without esophagitis Status: Acute Code(s): K21.9 - Gastro-esophageal reflux disease without esophagitis Plan 50 yo female, hx of schizoaffective disorder, depressed with R breast cancer, having just completed first cycle of chemotherapy. Pt's partner and sister report to crisis team that pt has had a significant mental status change with psychotic symptoms, paranoia, perceptual alterations, poor sleep and significant thought blocking. Pt denies SI, HI. Today she is a very poor historian-almost pre-catatonic at times, considering signing a three day notice of intent. Team report by history she may not be comfortable in this facility. Assessment plan for 09/21/2021 Continue current medical treatment elevated white blood count noted over the past month question related to cancer treatment. No evidence of infection Patient depressed withdrawn preoccupied patient with recent treatment for ductal carcinoma stress of this might certainly lead to depressive almost catatonic episode 09/22/21 Pt with thought blocking improved from yeterday have restarted wellbutin hosp did not have sr cont clozapine evaluate baseline denies self harm oob more 09/23/21 Continue current plan of care. Collateral contacts with OP team, oncology. 09/24/21 Increase Abilify to 30 mg daily Pt currently refusing Lorazepam TDN expires 09/25/21-will file for civil commitment if pt persists in wanting discharge 09/25/21 Civil commitment filing completed Continue current regime. 09/26/21 Continue current regime 09/27/32 Decrease Abilify to 20 mg daily Risperdal 1.5 mg HS 09/28/21 Continue plan as above 09/29/21 No changes 09/30/21 Court 10/01/21 Chemotherapy 10/01/21 Increase Risperdal to 2.5 mg HS Decrease Abilify to 10 mg daily 10/02/21 Tolerating change back to Abilify from Risperdal Appetite is improved. Calmer, more visable, however continues with paranoia Jardiance ordered from [facility] 10/03/21 Increase Abilify to 30 mg daily Will pursue validation of pt's HCP for continued chemotherapy Tentative chemotherapy 10/09. 10/04/21 Continue current regime 10/05 no changes to current regimen 10/06 no changes to current regimen 10/07/21 No positive effect from increase in Abilify Increase Clozaril to 100 mg bid, an increase of 50 mg daily, divided. Chemotherapy 10/09/21, Labs 10/08/21. 10/08/21 Tolerating Clozaril increase thus far Dexamethasone 4 mg hs and 4 mg a.m. pre chemo per Dr. Mora Support, encourage 10/09/21 Continue current plan of care 10/10/21 Continue current plan of care 10/11/21 Continue current plan. Will re-eval for Clozaril increase next week. 10/12/2021: Continue current regimen and plans. No changes were made today 10/13/2021: Continue current plans and regimen. 10/14/21: Increase Clozaril to 125 mg bid EKG, CBCD, CMP 10/15 prior to chemotherapy 10/15/21: Continue current plan of care 10/16/21: Continue current plan. Tolerating Clozaril increase 10/17/21: Continue current regime. 10/18/21: Increase Clozaril to 150 mg bid Decrease Abilify to 20 mg daily ECT Consult 10/19/21: continue meds unchanged 10/20/21: pt continue to present as paranoid, withdrawn 10/21/21: Continue current regime. Labs/EKG 10/22. Some improvement today. 10/22/21: Labs/EKG WNL Meeting 10/24 with health care proxy's to discuss clozaril discontinuation ECT Consult 10/24/21: Continue current plan. 10/25/21: Continue current plan. 10/26: ECT may be indicated. Change Ativan to standing dose. 10/27 Increase Ativan to 1 mg TID and watch for sedation 10/28/21: CBCD, CMP, EKG 10/29/21 in preparation for chemotherapy Await Clozapine level results. I spent minutes with the patient and/or on the patient floor today, greater than?50% of which was spent counseling/coordinating care. Patient educated on: medication risk/benefits, therapeutic strategies and other Informed Consent: understands and further education needed Reason for contiued inpatient stay Substantial Risk for: harm to self, inability to function, rapid decompensation and med/psych decompensation
[2021-10-28 18:00] VITALS: BP 110/72; PULSE 107; RESP 14; TEMP 35.8; O2SAT 100
[2021-10-28] MEDS: Atorvastatin Calcium 10 MG TABLET 5 MG PO (20:46)
[2021-10-28] MEDS: Docusate Sodium 100 MG CAPSULE PO (20:46)
[2021-10-29] MEDS: Omeprazole 20 MG CAPSULE.DR PO (06:30)
[2021-10-29 06:50] LABS: Glucose, Whole Blood 117 mg/dL (60-115)
[2021-10-29 08:14] LABS: MANUAL DIFF FLAG NO
[2021-10-29 08:21] LABS: Basophils Percent Auto 0.5 % (0-2); Eosinophils Absolute Auto 0.1 X10*3/uL (0.0-0.4); Eosinophils Percent Auto 0.9 % (0-4); Hematocrit 36.7 % (37.0-47.0); Imm Gran Abs Auto 0.03 X10*3/uL (0.00-0.03); Imm Gran Pct Auto 0.5 % (0.0-0.4); Lymphocytes Absolute Auto 1.5 X10*3/uL (1.2-4.9); Lymphocytes Percent Auto 23.5 % (20-40); Mean Corpuscular HGB Conc 32.7 g/dl (31.0-35.0); Mean Corpuscular Hemoglobin 30.3 pg (27.0-33.0); Mean Corpuscular Volume 92.7 fL (80.0-98.0); Mean Platelet Volume 10.6 fL (9.4-12.3); Monocytes Absolute Auto 0.2 X10*3/uL (0.1-1.2); Monocytes Percent Auto 3.7 % (2-11); Neutrophils Absolute Auto 4.6 x10*3/uL (2.0-8.3); Neutrophils Percent Auto 70.9 % (45-73); Platelet Count 304 X10*3/uL (160-400); Red Blood Count 3.96 X10*6/uL (4.20-5.50); Red Cell Distribution Width 16.4 % (11.0-16.0); White Blood Count 6.5 X10*3/uL (4.8-10.8)
[2021-10-29 08:38] LABS: Alanine Aminotransferase 38 U/L (0-31); Albumin Level 4.2 g/dL (3.5-5.0); Alkaline Phosphatase 95 U/L (39-117); Anion Gap 14 (12-20); Aspartate Amino Transferase 27 U/L (5-31); Bilirubin Total 0.8 mg/dL (0.0-1.0); Blood Urea Nitrogen 10 mg/dL (9-16); Calcium 9.6 mg/dL (8.4-10.2); Carbon Dioxide 25 mmol/L (22-29); Chloride 106 mmol/L (96-108); Creatinine Clr Calc Pharmacy 83.9; Estimated Glomerular Filt Rate > 60; Glucose Random 153 mg/dL (60-115); Sodium 141 mmol/L (135-145); Total Protein 6.6 g/dL (6.5-8.0)
--- NOTE | 2021-10-29 10:00 | ECG_ITS ---
Test Reason : PRE-CHEMO Blood Pressure : / mmHG Vent. Rate : 111 BPM Atrial Rate : 111 BPM P-R Int : 144 ms QRS Dur : 070 ms QT Int : 314 ms P-R-T Axes : 048 053 -12 degrees QTc Int : 427 ms Sinus tachycardia Nonspecific T wave abnormality Abnormal ECG When compared with ECG of 22-OCT-2021 11:35, No significant change was found Referred By: Marci Jones Electronically Signed By:CECI MOLINA MD
[2021-10-29] MEDS: dexAMETHasone 4 MG TABLET 8 MG PO (10:39)
[2021-10-29] MEDS: cloZAPine 25 MG TABLET 150 MG PO ×2 (10:39→21:19)
[2021-10-29] MEDS: Ascorbic Acid 500 MG TABLET 1000 MG PO (10:40)
[2021-10-29] MEDS: buPROPion HCL 100 MG TABLET PO (10:40)
[2021-10-29] MEDS: Cholecalciferol (Vitamin D3) 10 MCG TABLET PO (10:40)
[2021-10-29] MEDS: Multivitamin TABLET 1 TAB PO (10:40)
[2021-10-29] MEDS: metFORMIN HCl 1,000 MG TABLET 1000 MG PO ×2 (10:40→21:14)
[2021-10-29] MEDS: Ferrous Sulfate 324 MG TABLET.DR PO (10:40)
[2021-10-29] MEDS: LORazepam 1 MG TABLET PO ×3 (10:40→21:15)
[2021-10-29] MEDS: Losartan Potassium 25 MG TABLET PO (10:40)
[2021-10-29] MEDS: Cyanocobalamin (Vitamin B-12) 1,000 MCG TABLET 1000 MCG PO (10:40)
[2021-10-29] MEDS: ARIPiprazole 20 MG TABLET PO (10:41)
[2021-10-29] MEDS: cloNIDine HCL 0.1 MG TABLET PO ×3 (10:41→21:14)
[2021-10-29] MEDS: Enoxaparin Sodium 40 MG/0.4 ML SYRINGE SUBCUT (10:41)
[2021-10-29 11:00] VITALS: BP 121/74; PULSE 107; RESP 14; TEMP 36.3; O2SAT 99
[2021-10-29 13:00] VITALS: BP 116/68; PULSE 107; RESP 16; O2SAT 97
--- NOTE | 2021-10-29 16:17 | HO.PSYCHPN ---
Subjective Subjective Date of Service: 10/29/21 Reason For Visit: Depression paranoia Subjective Notes: [employer] Proxy: Yes Guardianship: No Medical Problems Affecting Mental Status: Yes Interim History: Awaiting Clozaril level (due tentatively 10/30). Today, [place] with increase in paucity, thought blocking. Care review with Dr. Luke who will do an ECT consult on 10/30. Tentative plan to taper Abilify, cross titirate with Latuda and evaluate Clozaril when level returns. Reviewed with pt who reports she is concerned we will begin changes and she will be sent to senior living-explained that she will not be sent to senior living, reminded of [id number] visit on 10/26 and his reassurance that she has not done anything wrong legally. I know that-but that thought just stays with me. Reports feeling well physically. Mother visited today as well as her sister. WBC 6.5 ANC 4.6. Medication Compliance: Yes Side effects from medications: No Attending Groups: Intermittent Review of Systems Acute medical concerns: Yes Breast cancer-phase II of chemotherapy Medical Review of Systems: unchanged Mental Status Exam Mental Status Exam Patient Appearance: Appropriate Patient Orientation: Person, Place, Time and Situation Level of Consciousness: Alert Patient Behavior: Talkative, Suspicious, Anxious, Fearful, Distractible and Good Eye Contact Mood Description: Apprehensive Affect Description: Apprehensive Patient Cognition Impaired: No Ability to Follow Directions: Good Speech Pattern: Spontaneous Speech Memory Description: Remote Impaired and Episodic Impaired Hallucinations: None Delusions: Paranoid Ideation Perceptual Disturbances: Depersonalization and Derealization Thought Process: Distracted and Rumination Thought Content: positive for [place], positive for Circumstantial, positive for Perseveration and positive for Suicidal Ideation (denies) Depressive Symptoms: Increased Anxiety, Diff. Making Decisions, Hopelessness, Thoughts of /Suicide (denies) and Difficulty Concentrating Judgement: Fair Diagnostics Vital Signs (24Hr): Vital Signs - 24 hr 10/28/21 18:00 10/29/21 11:00 10/29/21 13:00 Temperature 96.4 F L 97.3 F Pulse Rate 107 H 107 H 107 H Respiratory Rate 14 14 16 Blood Pressure 110/72 121/74 116/68 Pulse Oximetry 100 99 97 BMI result Body Mass Index 31.0 Labs Results: 10/29/21 07:41 10/29/21 07:41 Labs: Laboratory Results - last 48 hr 10/28/21 10/29/21 10/29/21 08:37 06:43 07:41 WBC 6.5 RBC 3.96 L Hgb 12.0 Hct 36.7 L MCV 92.7 MCH 30.3 MCHC 32.7 RDW 16.4 H Plt Count 304 MPV 10.6 Immature Gran % (Auto) 0.5 H Neut % (Auto) 70.9 Lymph % (Auto) 23.5 [place] % (Auto) 3.7 Eos % (Auto) 0.9 Baso % (Auto) 0.5 Lymph # (Auto) 1.5 [place] # (Auto) 0.2 Eos # (Auto) 0.1 Baso # (Auto) 0.0 Abs Immat Gran (auto) 0.03 Absolute Neuts (auto) 4.6 Absolute Nucleated RBC 0.000 Nucleated RBC % (auto) 0.0 Sodium Potassium Chloride Carbon Dioxide Anion Gap BUN Creatinine Estim Creat Clear Calc Estimated GFR POC Glucose 160 H 117 H Random Glucose Calcium Total Bilirubin AST ALT Alkaline Phosphatase Total Protein Albumin 10/29/21 07:41 WBC RBC Hgb Hct MCV MCH MCHC RDW Plt Count MPV Immature Gran % (Auto) Neut % (Auto) Lymph % (Auto) Beaver % (Auto) Eos % (Auto) Baso % (Auto) Lymph # (Auto) Beaver # (Auto) Eos # (Auto) Baso # (Auto) Abs Immat Gran (auto) Absolute Neuts (auto) Absolute Nucleated RBC Nucleated RBC % (auto) Sodium 141 Potassium 4.0 Chloride 106 Carbon Dioxide 25 Anion Gap 14 BUN 10 Creatinine 0.77 Estim Creat Clear Calc 83.9 Estimated GFR > 60 POC Glucose Random Glucose 153 H Calcium 9.6 Total Bilirubin 0.8 AST 27 ALT 38 H Alkaline Phosphatase 95 Total Protein 6.6 Albumin 4.2 EKG EKG: reviewed EKG Comment: Rate 111, pt anxious with test, QTc 427, sinus tachycardia, Non-specific T Wave Abn. No change since 10/22/21 Medications Medications Current Medications Acetaminophen (Acetaminophen 325 Mg Tablet) 650 mg PO Q6H PRN PRN Reason: Headache/Pain Mild Scale (1-3) Al Hydroxide/Mg Hydroxide (Magnesium Hydrox/Alum Hydrox 30 Ml Oral.Susp) 30 ml PO Q6H PRN PRN Reason: Heartburn/Nausea Last Admin: 10/02/21 14:41 Dose: 30 ml Documented by: Aripiprazole (Aripiprazole 20 Mg Tablet) 20 mg PO DAILY [facility] Last Admin: 10/29/21 10:41 Dose: 20 mg Documented by: Ascorbic Acid (Ascorbic Acid 500 Mg Tablet) 1,000 mg PO DAILY [facility] Last Admin: 10/29/21 10:40 Dose: 1,000 mg Documented by: Atorvastatin Calcium (Atorvastatin Calcium 10 Mg Tablet) 5 mg PO BEDTIME [facility] Last Admin: 10/28/21 20:46 Dose: 5 mg Documented by: Bupropion HCl (Bupropion Hcl 100 Mg Tablet) 100 mg PO DAILY [facility] Last Admin: 10/29/21 10:40 Dose: 100 mg Documented by: Clonidine HCl (Clonidine Hcl 0.1 Mg Tablet) 0.1 mg PO TID [facility]; Protocol Last Admin: 10/29/21 16:09 Dose: 0.1 mg Documented by: Clozapine (Clozapine 25 Mg Tablet) 150 mg PO BID [facility] Last Admin: 10/29/21 10:39 Dose: 150 mg Documented by: Cyanocobalamin (Cyanocobalamin (Vitamin B-12) 1,000 Mcg Tablet) 1,000 mcg PO DAILY [facility] Last Admin: 10/29/21 10:40 Dose: 1,000 mcg Documented by: Dexamethasone (Dexamethasone 4 Mg Tablet) 8 mg PO Tu@0800 [facility] Last Admin: 10/29/21 10:39 Dose: 8 mg Documented by: Docusate Sodium (Docusate Sodium 100 Mg Capsule) 100 mg PO BEDTIME [facility] Last Admin: 10/28/21 20:46 Dose: 100 mg Documented by: Enoxaparin Sodium (Enoxaparin Sodium 40 Mg/0.4 Ml Syringe) 40 mg SUBCUT Q24H [facility] Last Admin: 10/29/21 10:41 Dose: 40 mg Documented by: Ferrous Sulfate (Ferrous Sulfate 324 Mg Tablet.Dr) 324 mg PO DAILY [facility] Last Admin: 10/29/21 10:40 Dose: 324 mg Documented by: Hydroxyzine HCl (Hydroxyzine Hcl 25 Mg Tablet) 25 mg PO BEDTIME PRN PRN Reason: Anxiety Lorazepam (Lorazepam 1 Mg Tablet) 1 mg PO TID [facility] Last Admin: 10/29/21 16:09 Dose: 1 mg Documented by: Losartan Potassium (Losartan Potassium 25 Mg Tablet) 25 mg PO DAILY [facility]; Protocol Last Admin: 10/29/21 10:40 Dose: 25 mg Documented by: Magnesium Hydroxide (Milk Of Magnesia 30 Ml Oral.Susp) 30 ml PO DAILY PRN PRN Reason: Constipation Metformin HCl (Metformin Hcl 1,000 Mg Tablet) 1,000 mg PO BID [facility] Last Admin: 10/29/21 10:40 Dose: 1,000 mg Documented by: Multivitamins/Vitamin C (Multivitamin Tablet) 1 tab PO DAILY [facility] Last Admin: 10/29/21 10:40 Dose: 1 tab Documented by: Non-Formulary Medication (Cinnamon) 1,000 mg PO DAILY [facility] Last Admin: 10/29/21 10:41 Dose: 1,000 mg Documented by: Patient Own Medication ( Empagliflozin 10 Mg) 1 each PO DAILY [facility] Last Admin: 10/29/21 10:41 Dose: 1 each Documented by: Omeprazole (Omeprazole 20 Mg Capsule.Dr) 20 mg PO DAILY@0630 [facility] Last Admin: 10/29/21 06:30 Dose: 20 mg Documented by: Ondansetron HCl (Ondansetron Odt 8 Mg Tab.Rapdis) 8 mg TRANSLINGU Q8H PRN PRN Reason: nausea Prazosin HCl (Prazosin Hcl 1 Mg Capsule) 1 mg PO BEDTIME PRN; Protocol PRN Reason: nightmares Trazodone HCl (Trazodone Hcl 50 Mg Tablet) 50 mg PO BEDTIME PRN PRN Reason: Insomnia Last Admin: 10/26/21 03:25 Dose: 50 mg Documented by: Vitamin D (Cholecalciferol (Vitamin D3) 10 Mcg Tablet) 10 mcg PO DAILY [facility] Last Admin: 10/29/21 10:40 Dose: 10 mcg Documented by: Allergies Allergies Allergy/AdvReac Type Severity Reaction Status Date / Time lisinopril [LISINOPRIL] Allergy Unknown SWOLLEN Verified 09/17/21 08:42 LIPS, angioedema, swelling Assessment & Plan Assessment & Plan (1) Schizoaffective disorder: Status: Acute Code(s): F25.9 - Schizoaffective disorder, unspecified (2) Invasive ductal carcinoma of right breast: Status: Acute Code(s): C50.911 - Malignant neoplasm of unspecified site of right female breast (3) Hypertension: Qualifiers: Hypertension type: essential hypertension Qualified Code(s): I10 - Essential (primary) hypertension Status: Acute Code(s): I10 - Essential (primary) hypertension (4) Hypercholesterolemia: Status: Acute Code(s): E78.00 - Pure hypercholesterolemia, unspecified (5) Type 2 diabetes mellitus with hyperglycemia: Qualifiers: Diabetes mellitus [employer] insulin use: without [employer] use Qualified Code(s): E11.65 - Type 2 diabetes mellitus with hyperglycemia Status: Acute Code(s): E11.65 - Type 2 diabetes mellitus with hyperglycemia Assessment and Plan: Continue metformin Jardiance monitor point of care (6) GERD (gastroesophageal reflux disease): Qualifiers: Esophagitis presence: without esophagitis Qualified Code(s): K21.9 - Gastro-esophageal reflux disease without esophagitis Status: Acute Code(s): K21.9 - Gastro-esophageal reflux disease without esophagitis Plan 50 yo female, hx of schizoaffective disorder, depressed with R breast cancer, having just completed first cycle of chemotherapy. Pt's partner and sister report to crisis team that pt has had a significant mental status change with psychotic symptoms, paranoia, perceptual alterations, poor sleep and significant thought blocking. Pt denies SI, HI. Today she is a very poor historian-almost pre-catatonic at times, considering signing a three day notice of intent. Team report by history she may not be comfortable in this facility. Assessment plan for 09/21/2021 Continue current medical treatment elevated white blood count noted over the past month question related to cancer treatment. No evidence of infection Patient depressed withdrawn preoccupied patient with recent treatment for ductal carcinoma stress of this might certainly lead to depressive almost catatonic episode 09/22/21 Pt with thought blocking improved from yeterday have restarted wellbutin hosp did not have sr cont clozapine evaluate baseline denies self harm oob more 09/23/21 Continue current plan of care. Collateral contacts with OP team, oncology. 09/24/21 Increase Abilify to 30 mg daily Pt currently refusing Lorazepam TDN expires 09/25/21-will file for civil commitment if pt persists in wanting discharge 09/25/21 Civil commitment filing completed Continue current regime. 09/26/21 Continue current regime 09/27/32 Decrease Abilify to 20 mg daily Risperdal 1.5 mg HS 09/28/21 Continue plan as above 09/29/21 No changes 09/30/21 Court 10/01/21 Chemotherapy 10/01/21 Increase Risperdal to 2.5 mg HS Decrease Abilify to 10 mg daily 10/02/21 Tolerating change back to Abilify from Risperdal Appetite is improved. Calmer, more visable, however continues with paranoia Jardiance ordered from [place] pharmacy 10/03/21 Increase Abilify to 30 mg daily Will pursue validation of pt's HCP for continued chemotherapy Tentative chemotherapy 10/09. 10/04/21 Continue current regime 10/05 no changes to current regimen 10/06 no changes to current regimen 10/07/21 No positive effect from increase in Abilify Increase Clozaril to 100 mg bid, an increase of 50 mg daily, divided. Chemotherapy 10/09/21, Labs 10/08/21. 10/08/21 Tolerating Clozaril increase thus far Dexamethasone 4 mg hs and 4 mg a.m. pre chemo per Dr. Mora Support, encourage 10/09/21 Continue current plan of care 10/10/21 Continue current plan of care 10/11/21 Continue current plan. Will re-eval for Clozaril increase next week. 10/12/2021: Continue current regimen and plans. No changes were made today 10/13/2021: Continue current plans and regimen. 10/14/21: Increase Clozaril to 125 mg bid EKG, CBCD, CMP 10/15 prior to chemotherapy 10/15/21: Continue current plan of care 10/16/21: Continue current plan. Tolerating Clozaril increase 10/17/21: Continue current regime. 10/18/21: Increase Clozaril to 150 mg bid Decrease Abilify to 20 mg daily ECT Consult 10/19/21: continue meds unchanged 10/20/21: pt continue to present as paranoid, withdrawn 10/21/21: Continue current regime. Labs/EKG 10/22. Some improvement today. 10/22/21: Labs/EKG WNL Meeting 10/24 with health care proxy's to discuss clozaril discontinuation ECT Consult 10/24/21: Continue current plan. 10/25/21: Continue current plan. 10/26: ECT may be indicated. Change Ativan to standing dose. 10/27 Increase Ativan to 1 mg TID and watch for sedation 10/28/21: CBCD, CMP, EKG 10/29/21 in preparation for chemotherapy Await Clozapine level results. 10/29/21: ECT consult 10/30 Chemotherapy 10/30 Await Clozapine level results. Tentative plan to taper Abilify, titrate Latuda. Family/HCP in agreement. Pt agrees as well. I spent minutes with the patient and/or on the patient floor today, greater than?50% of which was spent counseling/coordinating care. Patient educated on: medication risk/benefits and therapeutic strategies Informed Consent: further education needed Reason for contiued inpatient stay Substantial Risk for: harm to self, inability to function, rapid decompensation and med/psych decompensation
[2021-10-29 17:10] VITALS: BP 131/80; PULSE 116; RESP 16; TEMP 36.8; O2SAT 98
[2021-10-29] MEDS: Docusate Sodium 100 MG CAPSULE PO (21:14)
[2021-10-29] MEDS: Atorvastatin Calcium 10 MG TABLET 5 MG PO (21:19)
[2021-10-30] MEDS: Omeprazole 20 MG CAPSULE.DR PO (06:13)
[2021-10-30 06:26] LABS: Glucose, Whole Blood 79 mg/dL (60-115)
[2021-10-30] MEDS: buPROPion HCL 100 MG TABLET PO (08:03)
[2021-10-30] MEDS: metFORMIN HCl 1,000 MG TABLET 1000 MG PO ×2 (08:03→21:53)
[2021-10-30] MEDS: Ascorbic Acid 500 MG TABLET 1000 MG PO (08:03)
[2021-10-30] MEDS: Cyanocobalamin (Vitamin B-12) 1,000 MCG TABLET 1000 MCG PO (08:03)
[2021-10-30] MEDS: cloNIDine HCL 0.1 MG TABLET PO ×3 (08:03→21:41)
[2021-10-30] MEDS: LORazepam 1 MG TABLET PO ×2 (08:03→21:53)
[2021-10-30] MEDS: ARIPiprazole 20 MG TABLET PO (08:03)
[2021-10-30] MEDS: Losartan Potassium 25 MG TABLET PO (08:03)
[2021-10-30] MEDS: Multivitamin TABLET 1 TAB PO (08:03)
[2021-10-30] MEDS: Cholecalciferol (Vitamin D3) 10 MCG TABLET PO (08:03)
[2021-10-30] MEDS: Ferrous Sulfate 324 MG TABLET.DR PO (08:04)
[2021-10-30 08:10] VITALS: BP 119/74; PULSE 104; RESP 16; TEMP 36.7; O2SAT 99
[2021-10-30] MEDS: cloZAPine 25 MG TABLET 150 MG PO ×2 (08:15→21:43)
[2021-10-30] MEDS: Enoxaparin Sodium 40 MG/0.4 ML SYRINGE SUBCUT (12:24)
[2021-10-30 14:09] VITALS: BP 124/69; PULSE 119; RESP 16
--- NOTE | 2021-10-30 17:17 | HO.PSYCHPN ---
Subjective Subjective Date of Service: 10/30/21 Reason For Visit: Depression paranoia Subjective Notes: Section 8 Healthcare Proxy: Yes Guardianship: No Medical Problems Affecting Mental Status: No Interim History: Pt to chemotherapy today with one to one and her sister. Reports treatment went well upon return. Presents with apprehension, anxiety. Clozapine level pending Reports depressive sx, reports difficulty in following different trains of thought and conversation. Denies SI, however tells team that SI is present Medication Compliance: Yes Side effects from medications: No Attending Groups: Intermittent Review of Systems Acute medical concerns: Yes Breast cancer-chemotherapy, phase II, treatment IV Medical Review of Systems: unchanged Review of Systems Reports behavioral changes and Reports memory loss Psychiatric: Reports anxiety, Reports behavioral changes, Reports depression, Reports difficulty concentrating, Reports auditory hallucinations, Reports hopelessness, Reports anhedonia, Reports memory loss, Reports paranoia and Reports suicidal ideation Mental Status Exam Mental Status Exam Patient Appearance: Appropriate Patient Orientation: Person, Place, Time and Situation Level of Consciousness: Alert Patient Behavior: Guarded, Cooperative, Passive, Suspicious, Timid, Anxious, Fearful, Avoidant, Fatigued, Distractible, Isolative and Good Eye Contact Mood Description: Depressed Affect Description: Flat Patient Cognition Impaired: Yes Ability to Follow Directions: Good Speech Pattern: Spontaneous Speech Memory Description: Episodic Impaired Hallucinations: None Delusions: Paranoid Ideation Perceptual Disturbances: Depersonalization and Derealization Thought Process: Distracted and Rumination Thought Content: positive for [place], positive for Circumstantial, positive for Disorganized (per pt report) and positive for Suicidal Ideation Depressive Symptoms: Increased Anxiety, Diff. Making Decisions, Loss of Int. in Activity, Feelings of Worthlessness, Hopelessness, Isolating-Friends/Family, Feelings of Guilt, Unhappiness, Increased Fatigue, Thoughts of /Suicide, Low Self Esteem, Loss of Energy and Difficulty Concentrating Judgement: Poor Diagnostics Vital Signs (24Hr): Vital Signs - 24 hr 10/30/21 08:10 10/30/21 14:09 Temperature 98.1 F Pulse Rate 104 H 119 H Respiratory Rate 16 16 Blood Pressure 119/74 124/69 Pulse Oximetry 99 BMI result Body Mass Index 31.0 Labs Results: 10/29/21 07:41 10/29/21 07:41 Labs: Laboratory Results - last 48 hr 10/29/21 10/29/21 10/29/21 06:43 07:41 07:41 WBC 6.5 RBC 3.96 L Hgb 12.0 Hct 36.7 L MCV 92.7 MCH 30.3 MCHC 32.7 RDW 16.4 H Plt Count 304 MPV 10.6 Immature Gran % (Auto) 0.5 H Neut % (Auto) 70.9 Lymph % (Auto) 23.5 [place] % (Auto) 3.7 Eos % (Auto) 0.9 Baso % (Auto) 0.5 Lymph # (Auto) 1.5 [place] # (Auto) 0.2 Eos # (Auto) 0.1 Baso # (Auto) 0.0 Abs Immat Gran (auto) 0.03 Absolute Neuts (auto) 4.6 Absolute Nucleated RBC 0.000 Nucleated RBC % (auto) 0.0 Sodium 141 Potassium 4.0 Chloride 106 Carbon Dioxide 25 Anion Gap 14 BUN 10 Creatinine 0.77 Estim Creat Clear Calc 83.9 Estimated GFR > 60 POC Glucose 117 H Random Glucose 153 H Calcium 9.6 Total Bilirubin 0.8 AST 27 ALT 38 H Alkaline Phosphatase 95 Total Protein 6.6 Albumin 4.2 10/30/21 06:12 WBC RBC Hgb Hct MCV MCH MCHC RDW Plt Count MPV Immature Gran % (Auto) Neut % (Auto) Lymph % (Auto) [place] % (Auto) Eos % (Auto) Baso % (Auto) Lymph # (Auto) [place] # (Auto) Eos # (Auto) Baso # (Auto) Abs Immat Gran (auto) Absolute Neuts (auto) Absolute Nucleated RBC Nucleated RBC % (auto) Sodium Potassium Chloride Carbon Dioxide Anion Gap BUN Creatinine Estim Creat Clear Calc Estimated GFR POC Glucose 79 Random Glucose Calcium Total Bilirubin AST ALT Alkaline Phosphatase Total Protein Albumin Medications Medications Current Medications Acetaminophen (Acetaminophen 325 Mg Tablet) 650 mg PO Q6H PRN PRN Reason: Headache/Pain Mild Scale (1-3) Al Hydroxide/Mg Hydroxide (Magnesium Hydrox/Alum Hydrox 30 Ml Oral.Susp) 30 ml PO Q6H PRN PRN Reason: Heartburn/Nausea Last Admin: 10/02/21 14:41 Dose: 30 ml Documented by: Aripiprazole (Aripiprazole 20 Mg Tablet) 20 mg PO DAILY [facility] Last Admin: 10/30/21 08:03 Dose: 20 mg Documented by: Ascorbic Acid (Ascorbic Acid 500 Mg Tablet) 1,000 mg PO DAILY [facility] Last Admin: 10/30/21 08:03 Dose: 1,000 mg Documented by: Atorvastatin Calcium (Atorvastatin Calcium 10 Mg Tablet) 5 mg PO BEDTIME [facility] Last Admin: 10/29/21 21:19 Dose: 5 mg Documented by: Bupropion HCl (Bupropion Hcl 100 Mg Tablet) 100 mg PO DAILY [facility] Last Admin: 10/30/21 08:03 Dose: 100 mg Documented by: Clonidine HCl (Clonidine Hcl 0.1 Mg Tablet) 0.1 mg PO TID [facility]; Protocol Last Admin: 10/30/21 14:03 Dose: 0.1 mg Documented by: Clozapine (Clozapine 25 Mg Tablet) 150 mg PO BID [facility] Last Admin: 10/30/21 08:15 Dose: 150 mg Documented by: Cyanocobalamin (Cyanocobalamin (Vitamin B-12) 1,000 Mcg Tablet) 1,000 mcg PO DAILY [facility] Last Admin: 10/30/21 08:03 Dose: 1,000 mcg Documented by: Dexamethasone (Dexamethasone 4 Mg Tablet) 8 mg PO Tu@0800 [facility] Last Admin: 10/29/21 10:39 Dose: 8 mg Documented by: Docusate Sodium (Docusate Sodium 100 Mg Capsule) 100 mg PO BEDTIME [facility] Last Admin: 10/29/21 21:14 Dose: 100 mg Documented by: Enoxaparin Sodium (Enoxaparin Sodium 40 Mg/0.4 Ml Syringe) 40 mg SUBCUT Q24H [facility] Last Admin: 10/30/21 12:24 Dose: 40 mg Documented by: Ferrous Sulfate (Ferrous Sulfate 324 Mg Tablet.) 324 mg PO DAILY [facility] Last Admin: 10/30/21 08:04 Dose: 324 mg Documented by: Hydroxyzine HCl (Hydroxyzine Hcl 25 Mg Tablet) 25 mg PO BEDTIME PRN PRN Reason: Anxiety Lorazepam (Lorazepam 1 Mg Tablet) 1 mg PO BID [facility] Last Admin: 10/30/21 08:03 Dose: 1 mg Documented by: Losartan Potassium (Losartan Potassium 25 Mg Tablet) 25 mg PO DAILY [facility]; Protocol Last Admin: 10/30/21 08:03 Dose: 25 mg Documented by: Magnesium Hydroxide (Milk Of Magnesia 30 Ml Oral.Susp) 30 ml PO DAILY PRN PRN Reason: Constipation Metformin HCl (Metformin Hcl 1,000 Mg Tablet) 1,000 mg PO BID [facility] Last Admin: 10/30/21 08:03 Dose: 1,000 mg Documented by: Multivitamins/Vitamin C (Multivitamin Tablet) 1 tab PO DAILY [facility] Last Admin: 10/30/21 08:03 Dose: 1 tab Documented by: Non-Formulary Medication (Cinnamon) 1,000 mg PO DAILY [facility] Last Admin: 10/30/21 08:02 Dose: 1,000 mg Documented by: Patient Own Medication ( Empagliflozin 10 Mg) 1 each PO DAILY [facility] Last Admin: 10/30/21 08:10 Dose: 1 each Documented by: Omeprazole (Omeprazole 20 Mg Capsule.Dr) 20 mg PO DAILY@0630 [facility] Last Admin: 10/30/21 06:13 Dose: 20 mg Documented by: Ondansetron HCl (Ondansetron Odt 8 Mg Tab.Rapdis) 8 mg TRANSLINGU Q8H PRN PRN Reason: nausea Prazosin HCl (Prazosin Hcl 1 Mg Capsule) 1 mg PO BEDTIME PRN; Protocol PRN Reason: nightmares Trazodone HCl (Trazodone Hcl 50 Mg Tablet) 50 mg PO BEDTIME PRN PRN Reason: Insomnia Last Admin: 10/26/21 03:25 Dose: 50 mg Documented by: Vitamin D (Cholecalciferol (Vitamin D3) 10 Mcg Tablet) 10 mcg PO DAILY [facility] Last Admin: 10/30/21 08:03 Dose: 10 mcg Documented by: Allergies Allergies Allergy/AdvReac Type Severity Reaction Status Date / Time lisinopril [LISINOPRIL] Allergy Unknown SWOLLEN Verified 09/17/21 08:42 LIPS, angioedema, swelling Assessment & Plan Assessment & Plan (1) Schizoaffective disorder: Status: Acute Code(s): F25.9 - Schizoaffective disorder, unspecified (2) Invasive ductal carcinoma of right breast: Status: Acute Code(s): C50.911 - Malignant neoplasm of unspecified site of right female breast (3) Hypertension: Qualifiers: Hypertension type: essential hypertension Qualified Code(s): I10 - Essential (primary) hypertension Status: Acute Code(s): I10 - Essential (primary) hypertension (4) Hypercholesterolemia: Status: Acute Code(s): E78.00 - Pure hypercholesterolemia, unspecified (5) Type 2 diabetes mellitus with hyperglycemia: Qualifiers: 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: without senior care use Qualified Code(s): E11.65 - Type 2 diabetes mellitus with hyperglycemia Status: Acute Code(s): E11.65 - Type 2 diabetes mellitus with hyperglycemia Assessment and Plan: Continue metformin Jardiance monitor point of care (6) GERD (gastroesophageal reflux disease): Qualifiers: Esophagitis presence: without esophagitis Qualified Code(s): K21.9 - Gastro-esophageal reflux disease without esophagitis Status: Acute Code(s): K21.9 - Gastro-esophageal reflux disease without esophagitis Plan 50 yo female, hx of schizoaffective disorder, depressed with R breast cancer, having just completed first cycle of chemotherapy. Pt's partner and sister report to crisis team that pt has had a significant mental status change with psychotic symptoms, paranoia, perceptual alterations, poor sleep and significant thought blocking. Pt denies SI, HI. Today she is a very poor historian-almost pre-catatonic at times, considering signing a three day notice of intent. Team report by history she may not be comfortable in this facility. Assessment plan for 09/21/2021 Continue current medical treatment elevated white blood count noted over the past month question related to cancer treatment. No evidence of infection Patient depressed withdrawn preoccupied patient with recent treatment for ductal carcinoma stress of this might certainly lead to depressive almost catatonic episode 09/22/21 Pt with thought blocking improved from yeterday have restarted wellbutin hosp did not have sr cont clozapine evaluate baseline denies self harm oob more 09/23/21 Continue current plan of care. Collateral contacts with OP team, oncology. 09/24/21 Increase Abilify to 30 mg daily Pt currently refusing Lorazepam TDN expires 09/25/21-will file for civil commitment if pt persists in wanting discharge 09/25/21 Civil commitment filing completed Continue current regime. 09/26/21 Continue current regime 09/27/32 Decrease Abilify to 20 mg daily Risperdal 1.5 mg HS 09/28/21 Continue plan as above 09/29/21 No changes 09/30/21 Court 10/01/21 Chemotherapy 10/01/21 Increase Risperdal to 2.5 mg HS Decrease Abilify to 10 mg daily 10/02/21 Tolerating change back to Abilify from Risperdal Appetite is improved. Calmer, more visable, however continues with paranoia Jardiance ordered from [facility] pharmacy 10/03/21 Increase Abilify to 30 mg daily Will pursue validation of pt's HCP for continued chemotherapy Tentative chemotherapy 10/09. 10/04/21 Continue current regime 10/05 no changes to current regimen 10/06 no changes to current regimen 10/07/21 No positive effect from increase in Abilify Increase Clozaril to 100 mg bid, an increase of 50 mg daily, divided. Chemotherapy 10/09/21, Labs 10/08/21. 10/08/21 Tolerating Clozaril increase thus far Dexamethasone 4 mg hs and 4 mg a.m. pre chemo per Dr. Mora Support, encourage 10/09/21 Continue current plan of care 10/10/21 Continue current plan of care 10/11/21 Continue current plan. Will re-eval for Clozaril increase next week. 10/12/2021: Continue current regimen and plans. No changes were made today 10/13/2021: Continue current plans and regimen. 10/14/21: Increase Clozaril to 125 mg bid EKG, CBCD, CMP 10/15 prior to chemotherapy 10/15/21: Continue current plan of care 10/16/21: Continue current plan. Tolerating Clozaril increase 10/17/21: Continue current regime. 10/18/21: Increase Clozaril to 150 mg bid Decrease Abilify to 20 mg daily ECT Consult 10/19/21: continue meds unchanged 10/20/21: pt continue to present as paranoid, withdrawn 10/21/21: Continue current regime. Labs/EKG 10/22. Some improvement today. 10/22/21: Labs/EKG WNL Meeting 10/24 with health care proxy's to discuss clozaril discontinuation ECT Consult 10/24/21: Continue current plan. 10/25/21: Continue current plan. 10/26: ECT may be indicated. Change Ativan to standing dose. 10/27 Increase Ativan to 1 mg TID and watch for sedation 10/28/21: CBCD, CMP, EKG 10/29/21 in preparation for chemotherapy Await Clozapine level results. 10/29/21: ECT consult 10/30 Chemotherapy 10/30 Await Clozapine level results. Tentative plan to taper Abilify, titrate Latuda. Family/HCP in agreement. Pt agrees as well. 10/30/21: Decrease Abilify to 10 mg daily to prepare to begin Latuda I spent minutes with the patient and/or on the patient floor today, greater than?50% of which was spent counseling/coordinating care. Guardian/Caregiver educated on: diagnosis, medication risk/benefits and therapeutic strategies Informed Consent: further education needed Reason for contiued inpatient stay Substantial Risk for: harm to self, inability to function, rapid decompensation and med/psych decompensation
[2021-10-30 18:00] VITALS: BP 130/80; PULSE 104; RESP 18; TEMP 36.4; O2SAT 99
[2021-10-30] MEDS: Atorvastatin Calcium 10 MG TABLET 5 MG PO (21:53)
[2021-10-30] MEDS: Docusate Sodium 100 MG CAPSULE PO (21:53)
[2021-10-30] MEDS: Prazosin HCL 1 MG CAPSULE PO (21:53)
[2021-10-31] MEDS: hydrOXYzine HCL 25 MG TABLET PO (02:30)
[2021-10-31] MEDS: Omeprazole 20 MG CAPSULE.DR PO (06:08)
[2021-10-31 06:24] LABS: Glucose, Whole Blood 98 mg/dL (60-115)
[2021-10-31 07:00] VITALS: BMI 31.4
[2021-10-31] MEDS: LORazepam 1 MG TABLET PO ×2 (09:24→21:48)
[2021-10-31] MEDS: metFORMIN HCl 1,000 MG TABLET 1000 MG PO ×2 (09:24→21:48)
[2021-10-31] MEDS: Multivitamin TABLET 1 TAB PO (09:24)
[2021-10-31] MEDS: cloZAPine 25 MG TABLET 150 MG PO ×2 (09:25→21:47)
[2021-10-31] MEDS: Cyanocobalamin (Vitamin B-12) 1,000 MCG TABLET 1000 MCG PO (09:25)
[2021-10-31] MEDS: Ascorbic Acid 500 MG TABLET 1000 MG PO (09:25)
[2021-10-31] MEDS: Losartan Potassium 25 MG TABLET PO (09:25)
[2021-10-31] MEDS: buPROPion HCL 100 MG TABLET PO (09:25)
[2021-10-31] MEDS: cloNIDine HCL 0.1 MG TABLET PO ×3 (09:25→21:47)
[2021-10-31] MEDS: Cholecalciferol (Vitamin D3) 10 MCG TABLET PO (09:25)
[2021-10-31] MEDS: ARIPiprazole 10 MG TABLET PO (09:25)
[2021-10-31 09:34] VITALS: BP 123/74; PULSE 106; RESP 16; TEMP 36.4; O2SAT 99
[2021-10-31] MEDS: Ferrous Sulfate 324 MG TABLET.DR PO (10:04)
[2021-10-31] MEDS: Enoxaparin Sodium 40 MG/0.4 ML SYRINGE SUBCUT (11:26)
--- NOTE | 2021-10-31 13:26 | HO.PSYCHPN ---
Subjective Subjective Date of Service: 10/31/21 Reason For Visit: Depression paranoia Interim History: Await results of Clozapine levels. Sister reports pt with an abrasion on her ear-? from mask-antibacterial cream ordered Partner asks if pt will remain in pt for the entire chemo cycle. Partner asks for updated med list Seen for ECT consult by Dr. Luke Today, asking questions, taking notes, discussed Latuda initiation for the end of the week. Medication Compliance: Yes Side effects from medications: No Attending Groups: Intermittent Review of Systems Acute medical concerns: No Medical Review of Systems: unchanged Review of Systems Reports behavioral changes and Reports memory loss Psychiatric: Reports anxiety, Reports behavioral changes, Reports depression, Reports difficulty concentrating, Reports auditory hallucinations, Reports hopelessness, Reports anhedonia, Reports memory loss, Reports paranoia and Reports suicidal ideation Mental Status Exam Mental Status Exam Patient Appearance: Appropriate Patient Orientation: Person, Place, Time and Situation Level of Consciousness: Alert Patient Behavior: Guarded, Cooperative, Passive, Suspicious, Timid, Anxious, Fearful, Avoidant, Fatigued, Distractible, Isolative and Good Eye Contact Mood Description: Depressed Affect Description: Flat Patient Cognition Impaired: Yes Ability to Follow Directions: Good Speech Pattern: Spontaneous Speech Memory Description: Episodic Impaired Hallucinations: None Delusions: Paranoid Ideation Perceptual Disturbances: Depersonalization and Derealization Thought Process: Distracted and Rumination Thought Content: positive for [place], positive for Circumstantial, positive for Disorganized (per pt report) and positive for Suicidal Ideation Depressive Symptoms: Increased Anxiety, Diff. Making Decisions, Loss of Int. in Activity, Feelings of Worthlessness, Hopelessness, Isolating-Friends/Family, Feelings of Guilt, Unhappiness, Increased Fatigue, Thoughts of /Suicide, Low Self Esteem, Loss of Energy and Difficulty Concentrating Judgement: Poor Diagnostics Vital Signs (24Hr): Vital Signs - 24 hr 10/30/21 14:09 10/30/21 18:00 10/31/21 09:34 Temperature 97.5 F 97.6 F Pulse Rate 119 H 104 H 106 H Respiratory Rate 16 18 16 Blood Pressure 124/69 130/80 123/74 Pulse Oximetry 99 99 BMI result Body Mass Index 31.4 Labs Results: 10/29/21 07:41 10/29/21 07:41 Labs: Laboratory Results - last 48 hr 10/30/21 10/31/21 06:12 06:12 POC Glucose 79 98 Medications Medications Current Medications Acetaminophen (Acetaminophen 325 Mg Tablet) 650 mg PO Q6H PRN PRN Reason: Headache/Pain Mild Scale (1-3) Al Hydroxide/Mg Hydroxide (Magnesium Hydrox/Alum Hydrox 30 Ml Oral.Susp) 30 ml PO Q6H PRN PRN Reason: Heartburn/Nausea Last Admin: 10/02/21 14:41 Dose: 30 ml Documented by: Aripiprazole (Aripiprazole 10 Mg Tablet) 10 mg PO DAILY [facility] Last Admin: 10/31/21 09:25 Dose: 10 mg Documented by: Ascorbic Acid (Ascorbic Acid 500 Mg Tablet) 1,000 mg PO DAILY [facility] Last Admin: 10/31/21 09:25 Dose: 1,000 mg Documented by: Atorvastatin Calcium (Atorvastatin Calcium 10 Mg Tablet) 5 mg PO BEDTIME [facility] Last Admin: 10/30/21 21:53 Dose: 5 mg Documented by: Bupropion HCl (Bupropion Hcl 100 Mg Tablet) 100 mg PO DAILY [facility] Last Admin: 10/31/21 09:25 Dose: 100 mg Documented by: Clonidine HCl (Clonidine Hcl 0.1 Mg Tablet) 0.1 mg PO TID [facility]; Protocol Last Admin: 10/31/21 09:25 Dose: 0.1 mg Documented by: Clozapine (Clozapine 25 Mg Tablet) 150 mg PO BID [facility] Last Admin: 10/31/21 09:25 Dose: 150 mg Documented by: Cyanocobalamin (Cyanocobalamin (Vitamin B-12) 1,000 Mcg Tablet) 1,000 mcg PO DAILY [facility] Last Admin: 10/31/21 09:25 Dose: 1,000 mcg Documented by: Dexamethasone (Dexamethasone 4 Mg Tablet) 8 mg PO Tu@0800 [facility] Last Admin: 10/29/21 10:39 Dose: 8 mg Documented by: Docusate Sodium (Docusate Sodium 100 Mg Capsule) 100 mg PO BEDTIME [facility] Last Admin: 10/30/21 21:53 Dose: 100 mg Documented by: Enoxaparin Sodium (Enoxaparin Sodium 40 Mg/0.4 Ml Syringe) 40 mg SUBCUT Q24H [facility] Last Admin: 10/31/21 11:26 Dose: 40 mg Documented by: Ferrous Sulfate (Ferrous Sulfate 324 Mg Tablet.) 324 mg PO DAILY [facility] Last Admin: 10/31/21 10:04 Dose: 324 mg Documented by: Hydroxyzine HCl (Hydroxyzine Hcl 25 Mg Tablet) 25 mg PO BEDTIME PRN PRN Reason: Anxiety Last Admin: 10/31/21 02:30 Dose: 25 mg Documented by: Lorazepam (Lorazepam 1 Mg Tablet) 1 mg PO BID [facility] Last Admin: 10/31/21 09:24 Dose: 1 mg Documented by: Losartan Potassium (Losartan Potassium 25 Mg Tablet) 25 mg PO DAILY [facility]; Protocol Last Admin: 10/31/21 09:25 Dose: 25 mg Documented by: Magnesium Hydroxide (Milk Of Magnesia 30 Ml Oral.Susp) 30 ml PO DAILY PRN PRN Reason: Constipation Metformin HCl (Metformin Hcl 1,000 Mg Tablet) 1,000 mg PO BID [facility] Last Admin: 10/31/21 09:24 Dose: 1,000 mg Documented by: Multivitamins/Vitamin C (Multivitamin Tablet) 1 tab PO DAILY [facility] Last Admin: 10/31/21 09:24 Dose: 1 tab Documented by: Neomycin/Polymyxin/Bacitracin (Neomy/Polymyx/Bacit/Ointment 14 Gm Tube) 1 gm TOPICAL BID [facility]; Protocol Non-Formulary Medication (Cinnamon) 1,000 mg PO DAILY [facility] Last Admin: 10/31/21 09:25 Dose: 1,000 mg Documented by: Patient Own Medication ( Empagliflozin 10 Mg) 1 each PO DAILY [facility] Last Admin: 10/31/21 09:25 Dose: 1 each Documented by: Omeprazole (Omeprazole 20 Mg Capsule.) 20 mg PO DAILY@0630 [facility] Last Admin: 10/31/21 06:08 Dose: 20 mg Documented by: Ondansetron HCl (Ondansetron Odt 8 Mg Tab.Rapdis) 8 mg TRANSLINGU Q8H PRN PRN Reason: nausea Prazosin HCl (Prazosin Hcl 1 Mg Capsule) 1 mg PO BEDTIME PRN; Protocol PRN Reason: nightmares Last Admin: 10/30/21 21:53 Dose: 1 mg Documented by: Trazodone HCl (Trazodone Hcl 50 Mg Tablet) 50 mg PO BEDTIME PRN PRN Reason: Insomnia Last Admin: 10/26/21 03:25 Dose: 50 mg Documented by: Vitamin D (Cholecalciferol (Vitamin D3) 10 Mcg Tablet) 10 mcg PO DAILY [facility] Last Admin: 10/31/21 09:25 Dose: 10 mcg Documented by: Allergies Allergies Allergy/AdvReac Type Severity Reaction Status Date / Time lisinopril [LISINOPRIL] Allergy Unknown SWOLLEN Verified 09/17/21 08:42 LIPS, angioedema, swelling Assessment & Plan Assessment & Plan (1) Schizoaffective disorder: Status: Acute Code(s): F25.9 - Schizoaffective disorder, unspecified (2) Invasive ductal carcinoma of right breast: Status: Acute Code(s): C50.911 - Malignant neoplasm of unspecified site of right female breast (3) Hypertension: Qualifiers: Hypertension type: essential hypertension Qualified Code(s): I10 - Essential (primary) hypertension Status: Acute Code(s): I10 - Essential (primary) hypertension (4) Hypercholesterolemia: Status: Acute Code(s): E78.00 - Pure hypercholesterolemia, unspecified (5) Type 2 diabetes mellitus with hyperglycemia: Qualifiers: Diabetes mellitus supervisor long goods insulin use: without supervisor long goods use Qualified Code(s): E11.65 - Type 2 diabetes mellitus with hyperglycemia Status: Acute Code(s): E11.65 - Type 2 diabetes mellitus with hyperglycemia Assessment and Plan: Continue metformin Jardiance monitor point of care (6) GERD (gastroesophageal reflux disease): Qualifiers: Esophagitis presence: without esophagitis Qualified Code(s): K21.9 - Gastro-esophageal reflux disease without esophagitis Status: Acute Code(s): K21.9 - Gastro-esophageal reflux disease without esophagitis Plan 50 yo female, hx of schizoaffective disorder, depressed with R breast cancer, having just completed first cycle of chemotherapy. Pt's partner and sister report to crisis team that pt has had a significant mental status change with psychotic symptoms, paranoia, perceptual alterations, poor sleep and significant thought blocking. Pt denies SI, HI. Today she is a very poor historian-almost pre-catatonic at times, considering signing a three day notice of intent. Team report by history she may not be comfortable in this facility. Assessment plan for 09/21/2021 Continue current medical treatment elevated white blood count noted over the past month question related to cancer treatment. No evidence of infection Patient depressed withdrawn preoccupied patient with recent treatment for ductal carcinoma stress of this might certainly lead to depressive almost catatonic episode 09/22/21 Pt with thought blocking improved from yeterday have restarted wellbutin hosp did not have sr cont clozapine evaluate baseline denies self harm oob more 09/23/21 Continue current plan of care. Collateral contacts with OP team, oncology. 09/24/21 Increase Abilify to 30 mg daily Pt currently refusing Lorazepam TDN expires 09/25/21-will file for civil commitment if pt persists in wanting discharge 09/25/21 Civil commitment filing completed Continue current regime. 09/26/21 Continue current regime 09/27/32 Decrease Abilify to 20 mg daily Risperdal 1.5 mg HS 09/28/21 Continue plan as above 09/29/21 No changes 09/30/21 Court 10/01/21 Chemotherapy 10/01/21 Increase Risperdal to 2.5 mg HS Decrease Abilify to 10 mg daily 10/02/21 Tolerating change back to Abilify from Risperdal Appetite is improved. Calmer, more visable, however continues with paranoia Jardiance ordered from [facility] 10/03/21 Increase Abilify to 30 mg daily Will pursue validation of pt's HCP for continued chemotherapy Tentative chemotherapy 10/09. 10/04/21 Continue current regime 10/05 no changes to current regimen 10/06 no changes to current regimen 10/07/21 No positive effect from increase in Abilify Increase Clozaril to 100 mg bid, an increase of 50 mg daily, divided. Chemotherapy 10/09/21, Labs 10/08/21. 10/08/21 Tolerating Clozaril increase thus far Dexamethasone 4 mg hs and 4 mg a.m. pre chemo per Dr. Mora Support, encourage 10/09/21 Continue current plan of care 10/10/21 Continue current plan of care 10/11/21 Continue current plan. Will re-eval for Clozaril increase next week. 10/12/2021: Continue current regimen and plans. No changes were made today 10/13/2021: Continue current plans and regimen. 10/14/21: Increase Clozaril to 125 mg bid EKG, CBCD, CMP 10/15 prior to chemotherapy 10/15/21: Continue current plan of care 10/16/21: Continue current plan. Tolerating Clozaril increase 10/17/21: Continue current regime. 10/18/21: Increase Clozaril to 150 mg bid Decrease Abilify to 20 mg daily ECT Consult 10/19/21: continue meds unchanged 10/20/21: pt continue to present as paranoid, withdrawn 10/21/21: Continue current regime. Labs/EKG 10/22. Some improvement today. 10/22/21: Labs/EKG WNL Meeting 10/24 with health care proxy's to discuss clozaril discontinuation ECT Consult 10/24/21: Continue current plan. 10/25/21: Continue current plan. 10/26: ECT may be indicated. Change Ativan to standing dose. 10/27 Increase Ativan to 1 mg TID and watch for sedation 10/28/21: CBCD, CMP, EKG 10/29/21 in preparation for chemotherapy Await Clozapine level results. 10/29/21: ECT consult 10/30 Chemotherapy 10/30 Await Clozapine level results. Tentative plan to taper Abilify, titrate Latuda. Family/HCP in agreement. Pt agrees as well. 10/30/21: Decrease Abilify to 10 mg daily to prepare to begin Latuda 10/31/21: Continue current plan. I spent minutes with the patient and/or on the patient floor today, greater than?50% of which was spent counseling/coordinating care. Patient educated on: medication risk/benefits Informed Consent: further education needed Reason for contiued inpatient stay Substantial Risk for: harm to self, inability to function, rapid decompensation and med/psych decompensation
[2021-10-31 15:08] VITALS: BP 136/67; PULSE 111
[2021-10-31 15:22] LABS: Clozapine (Clozaril) 503 mcg/L; Norclozapine 205 mcg/L (25-400)
[2021-10-31 18:00] VITALS: BP 122/74; PULSE 103; TEMP 36.9
[2021-10-31] MEDS: Docusate Sodium 100 MG CAPSULE PO (21:48)
[2021-10-31] MEDS: Atorvastatin Calcium 10 MG TABLET 5 MG PO (21:49)
[2021-10-31] MEDS: NeoMY/Polymyx/Bacit/Ointment 14 GM Tube TOPICAL (22:00)
[2021-11-01] MEDS: Omeprazole 20 MG CAPSULE.DR PO (06:39)
[2021-11-01 07:05] LABS: Glucose, Whole Blood 107 mg/dL (60-115)
[2021-11-01] MEDS: ARIPiprazole 10 MG TABLET PO (08:40)
[2021-11-01] MEDS: Cholecalciferol (Vitamin D3) 10 MCG TABLET PO (08:41)
[2021-11-01] MEDS: Cyanocobalamin (Vitamin B-12) 1,000 MCG TABLET 1000 MCG PO (08:41)
[2021-11-01] MEDS: cloNIDine HCL 0.1 MG TABLET PO ×3 (08:41→20:13)
[2021-11-01] MEDS: Ascorbic Acid 500 MG TABLET 1000 MG PO (08:41)
[2021-11-01] MEDS: cloZAPine 25 MG TABLET 150 MG PO ×2 (08:41→20:11)
[2021-11-01] MEDS: metFORMIN HCl 1,000 MG TABLET 1000 MG PO ×2 (08:41→20:11)
[2021-11-01] MEDS: buPROPion HCL 100 MG TABLET PO (08:41)
[2021-11-01] MEDS: LORazepam 1 MG TABLET PO ×2 (08:41→20:12)
[2021-11-01] MEDS: Multivitamin TABLET 1 TAB PO (08:41)
[2021-11-01] MEDS: Ferrous Sulfate 324 MG TABLET.DR PO (08:41)
[2021-11-01] MEDS: Losartan Potassium 25 MG TABLET PO (08:41)
[2021-11-01] MEDS: NeoMY/Polymyx/Bacit/Ointment 14 GM Tube TOPICAL (08:52)
[2021-11-01 08:54] VITALS: BP 119/81; PULSE 111; RESP 16; TEMP 37; O2SAT 98
[2021-11-01] MEDS: Enoxaparin Sodium 40 MG/0.4 ML SYRINGE SUBCUT (11:56)
[2021-11-01 14:10] VITALS: BP 117/68; PULSE 116
--- NOTE | 2021-11-01 17:46 | P.PNPSI_ITS ---
Subjective Subjective Date of Service: 11/01/21 Reason For Visit: Depression paranoia Interim History: Clozapine 503; Norclozapine 205 (25-400). Met with pt and Dr. Luke. Discussed her symptoms. ECT will not be scheduled at this time, but may be an option for future reference. Pt did not recall discussion of Latuda on 10/31. We reviewed this again. To begin 11/02. Reports overall she feels a bit improved. Medication Compliance: Yes Side effects from medications: No Attending Groups: Intermittent Review of Systems Acute medical concerns: No Medical Review of Systems: unchanged Review of Systems Reports behavioral changes and Reports memory loss Psychiatric: Reports anxiety, Reports behavioral changes, Reports depression, Reports difficulty concentrating, Reports auditory hallucinations, Reports hopelessness, Reports anhedonia, Reports memory loss, Reports paranoia and Reports suicidal ideation Mental Status Exam Mental Status Exam Patient Appearance: Appropriate Patient Orientation: Person, Place, Time and Situation Level of Consciousness: Alert Patient Behavior: Guarded, Cooperative, Passive, Suspicious, Timid, Anxious, Fearful, Avoidant, Fatigued, Distractible, Isolative and Good Eye Contact Mood Description: Depressed Affect Description: Flat Patient Cognition Impaired: Yes Ability to Follow Directions: Good Speech Pattern: Spontaneous Speech Memory Description: Episodic Impaired Hallucinations: None Delusions: Paranoid Ideation Perceptual Disturbances: Depersonalization and Derealization Thought Process: Distracted and Rumination Thought Content: positive for [place], positive for Circumstantial, positive for Disorganized (per pt report) and positive for Suicidal Ideation Depressive Symptoms: Increased Anxiety, Diff. Making Decisions, Loss of Int. in Activity, Feelings of Worthlessness, Hopelessness, Isolating-Friends/Family, Feelings of Guilt, Unhappiness, Increased Fatigue, Thoughts of /Suicide, Low Self Esteem, Loss of Energy and Difficulty Concentrating Judgement: Poor Diagnostics Vital Signs (24Hr): Vital Signs - 24 hr 10/31/21 18:00 11/01/21 08:54 11/01/21 14:10 Temperature 98.4 F 98.6 F Pulse Rate 103 H 111 H 116 H Respiratory Rate 16 Blood Pressure 122/74 119/81 117/68 Pulse Oximetry 98 BMI result Body Mass Index 31.4 Labs Results: 10/29/21 07:41 10/29/21 07:41 Labs: Laboratory Results - last 48 hr 10/24/21 10/31/21 11/01/21 08:17 06:12 06:37 POC Glucose 98 107 Clozapine 503 Norclozapine 205 Medications Medications Current Medications Acetaminophen (Acetaminophen 325 Mg Tablet) 650 mg PO Q6H PRN PRN Reason: Headache/Pain Mild Scale (1-3) Al Hydroxide/Mg Hydroxide (Magnesium Hydrox/Alum Hydrox 30 Ml Oral.Susp) 30 ml PO Q6H PRN PRN Reason: Heartburn/Nausea Last Admin: 10/02/21 14:41 Dose: 30 ml Documented by: Aripiprazole (Aripiprazole 10 Mg Tablet) 10 mg PO DAILY [facility] Last Admin: 11/01/21 08:40 Dose: 10 mg Documented by: Ascorbic Acid (Ascorbic Acid 500 Mg Tablet) 1,000 mg PO DAILY [facility] Last Admin: 11/01/21 08:41 Dose: 1,000 mg Documented by: Atorvastatin Calcium (Atorvastatin Calcium 10 Mg Tablet) 5 mg PO BEDTIME [facility] Last Admin: 10/31/21 21:49 Dose: 5 mg Documented by: Bupropion HCl (Bupropion Hcl 100 Mg Tablet) 100 mg PO DAILY [facility] Last Admin: 11/01/21 08:41 Dose: 100 mg Documented by: Clonidine HCl (Clonidine Hcl 0.1 Mg Tablet) 0.1 mg PO TID [facility]; Protocol Last Admin: 11/01/21 14:07 Dose: 0.1 mg Documented by: Clozapine (Clozapine 25 Mg Tablet) 150 mg PO BID [facility] Last Admin: 11/01/21 08:41 Dose: 150 mg Documented by: Cyanocobalamin (Cyanocobalamin (Vitamin B-12) 1,000 Mcg Tablet) 1,000 mcg PO DAILY [facility] Last Admin: 11/01/21 08:41 Dose: 1,000 mcg Documented by: Dexamethasone (Dexamethasone 4 Mg Tablet) 8 mg PO Tu@0800 [facility] Last Admin: 10/29/21 10:39 Dose: 8 mg Documented by: Docusate Sodium (Docusate Sodium 100 Mg Capsule) 100 mg PO BEDTIME [facility] Last Admin: 10/31/21 21:48 Dose: 100 mg Documented by: Enoxaparin Sodium (Enoxaparin Sodium 40 Mg/0.4 Ml Syringe) 40 mg SUBCUT Q24H [facility] Last Admin: 11/01/21 11:56 Dose: 40 mg Documented by: Ferrous Sulfate (Ferrous Sulfate 324 Mg Tablet.) 324 mg PO DAILY [facility] Last Admin: 11/01/21 08:41 Dose: 324 mg Documented by: Hydroxyzine HCl (Hydroxyzine Hcl 25 Mg Tablet) 25 mg PO BEDTIME PRN PRN Reason: Anxiety Last Admin: 10/31/21 02:30 Dose: 25 mg Documented by: Lorazepam (Lorazepam 1 Mg Tablet) 1 mg PO BID [facility] Last Admin: 11/01/21 08:41 Dose: 1 mg Documented by: Losartan Potassium (Losartan Potassium 25 Mg Tablet) 25 mg PO DAILY [facility]; Protocol Last Admin: 11/01/21 08:41 Dose: 25 mg Documented by: Magnesium Hydroxide (Milk Of Magnesia 30 Ml Oral.Susp) 30 ml PO DAILY PRN PRN Reason: Constipation Metformin HCl (Metformin Hcl 1,000 Mg Tablet) 1,000 mg PO BID [facility] Last Admin: 11/01/21 08:41 Dose: 1,000 mg Documented by: Multivitamins/Vitamin C (Multivitamin Tablet) 1 tab PO DAILY [facility] Last Admin: 11/01/21 08:41 Dose: 1 tab Documented by: Neomycin/Polymyxin/Bacitracin (Neomy/Polymyx/Bacit/Ointment 14 Gm Tube) 1 gm TOPICAL BID [facility]; Protocol Last Admin: 11/01/21 08:52 Dose: 1 gm Documented by: Non-Formulary Medication (Cinnamon) 1,000 mg PO DAILY [facility] Last Admin: 11/01/21 08:40 Dose: 1,000 mg Documented by: Patient Own Medication ( Empagliflozin 10 Mg) 1 each PO DAILY [facility] Last Admin: 11/01/21 08:40 Dose: 1 each Documented by: Omeprazole (Omeprazole 20 Mg Capsule.) 20 mg PO DAILY@0630 [facility] Last Admin: 11/01/21 06:39 Dose: 20 mg Documented by: Ondansetron HCl (Ondansetron Odt 8 Mg Tab.Rapdis) 8 mg TRANSLINGU Q8H PRN PRN Reason: nausea Prazosin HCl (Prazosin Hcl 1 Mg Capsule) 1 mg PO BEDTIME PRN; Protocol PRN Reason: nightmares Last Admin: 10/30/21 21:53 Dose: 1 mg Documented by: Trazodone HCl (Trazodone Hcl 50 Mg Tablet) 50 mg PO BEDTIME PRN PRN Reason: Insomnia Last Admin: 10/26/21 03:25 Dose: 50 mg Documented by: Vitamin D (Cholecalciferol (Vitamin D3) 10 Mcg Tablet) 10 mcg PO DAILY [facility] Last Admin: 11/01/21 08:41 Dose: 10 mcg Documented by: Allergies Allergies Allergy/AdvReac Type Severity Reaction Status Date / Time lisinopril [LISINOPRIL] Allergy Unknown SWOLLEN Verified 09/17/21 08:42 LIPS, angioedema, swelling Assessment & Plan Assessment & Plan (1) Schizoaffective disorder: Status: Acute Code(s): F25.9 - Schizoaffective disorder, unspecified (2) Invasive ductal carcinoma of right breast: Status: Acute Code(s): C50.911 - Malignant neoplasm of unspecified site of right female breast (3) Hypertension: Qualifiers: Hypertension type: essential hypertension Qualified Code(s): I10 - Essential (primary) hypertension Status: Acute Code(s): I10 - Essential (primary) hypertension (4) Hypercholesterolemia: Status: Acute Code(s): E78.00 - Pure hypercholesterolemia, unspecified (5) Type 2 diabetes mellitus with hyperglycemia: Qualifiers: Diabetes mellitus alf insulin use: without alf use Qualified Code(s): E11.65 - Type 2 diabetes mellitus with hyperglycemia Status: Acute Code(s): E11.65 - Type 2 diabetes mellitus with hyperglycemia Assessment and Plan: Continue metformin Jardiance monitor point of care (6) GERD (gastroesophageal reflux disease): Qualifiers: Esophagitis presence: without esophagitis Qualified Code(s): K21.9 - Gastro-esophageal reflux disease without esophagitis Status: Acute Code(s): K21.9 - Gastro-esophageal reflux disease without esophagitis Plan 50 yo female, hx of schizoaffective disorder, depressed with R breast cancer, having just completed first cycle of chemotherapy. Pt's partner and sister report to crisis team that pt has had a significant mental status change with psychotic symptoms, paranoia, perceptual alterations, poor sleep and significant thought blocking. Pt denies SI, HI. Today she is a very poor historian-almost pre-catatonic at times, considering signing a three day notice of intent. Team report by history she may not be comfortable in this facility. Assessment plan for 09/21/2021 Continue current medical treatment elevated white blood count noted over the past month question related to cancer treatment. No evidence of infection Patient depressed withdrawn preoccupied patient with recent treatment for ductal carcinoma stress of this might certainly lead to depressive almost catatonic episode 09/22/21 Pt with thought blocking improved from yeterday have restarted wellbutin hosp did not have sr cont clozapine evaluate baseline denies self harm oob more 09/23/21 Continue current plan of care. Collateral contacts with OP team, oncology. 09/24/21 Increase Abilify to 30 mg daily Pt currently refusing Lorazepam TDN expires 09/25/21-will file for civil commitment if pt persists in wanting discharge 09/25/21 Civil commitment filing completed Continue current regime. 09/26/21 Continue current regime 09/27/32 Decrease Abilify to 20 mg daily Risperdal 1.5 mg HS 09/28/21 Continue plan as above 09/29/21 No changes 09/30/21 Court 10/01/21 Chemotherapy 10/01/21 Increase Risperdal to 2.5 mg HS Decrease Abilify to 10 mg daily 10/02/21 Tolerating change back to Abilify from Risperdal Appetite is improved. Calmer, more visable, however continues with paranoia Jardiance ordered from [facility] pharmacy 10/03/21 Increase Abilify to 30 mg daily Will pursue validation of pt's HCP for continued chemotherapy Tentative chemotherapy 10/09. 10/04/21 Continue current regime 10/05 no changes to current regimen 10/06 no changes to current regimen 10/07/21 No positive effect from increase in Abilify Increase Clozaril to 100 mg bid, an increase of 50 mg daily, divided. Chemotherapy 10/09/21, Labs 10/08/21. 10/08/21 Tolerating Clozaril increase thus far Dexamethasone 4 mg hs and 4 mg a.m. pre chemo per Dr. Mora Support, encourage 10/09/21 Continue current plan of care 10/10/21 Continue current plan of care 10/11/21 Continue current plan. Will re-eval for Clozaril increase next week. 10/12/2021: Continue current regimen and plans. No changes were made today 10/13/2021: Continue current plans and regimen. 10/14/21: Increase Clozaril to 125 mg bid EKG, CBCD, CMP 10/15 prior to chemotherapy 10/15/21: Continue current plan of care 10/16/21: Continue current plan. Tolerating Clozaril increase 10/17/21: Continue current regime. 10/18/21: Increase Clozaril to 150 mg bid Decrease Abilify to 20 mg daily ECT Consult 10/19/21: continue meds unchanged 10/20/21: pt continue to present as paranoid, withdrawn 10/21/21: Continue current regime. Labs/EKG 10/22. Some improvement today. 10/22/21: Labs/EKG WNL Meeting 10/24 with health care proxy's to discuss clozaril discontinuation ECT Consult 10/24/21: Continue current plan. 10/25/21: Continue current plan. 10/26: ECT may be indicated. Change Ativan to standing dose. 10/27 Increase Ativan to 1 mg TID and watch for sedation 10/28/21: CBCD, CMP, EKG 10/29/21 in preparation for chemotherapy Await Clozapine level results. 10/29/21: ECT consult 10/30 Chemotherapy 10/30 Await Clozapine level results. Tentative plan to taper Abilify, titrate Latuda. Family/HCP in agreement. Pt agrees as well. 10/30/21: Decrease Abilify to 10 mg daily to prepare to begin Latuda 10/31/21: Continue current plan. 11/01/21: Discontinue Abilify Latuda 20 mg 1800 I spent minutes with the patient and/or on the patient floor today, greater than?50% of which was spent counseling/coordinating care. Patient educated on: medication risk/benefits Informed Consent: further education needed Reason for contiued inpatient stay Substantial Risk for: harm to self, inability to function, rapid decompensation and med/psych decompensation
[2021-11-01 18:00] VITALS: BP 131/80; PULSE 107; TEMP 36.3
[2021-11-01] MEDS: Lurasidone HCl 20 MG TABLET PO (18:26)
[2021-11-01] MEDS: Atorvastatin Calcium 10 MG TABLET 5 MG PO (20:12)
[2021-11-01] MEDS: Docusate Sodium 100 MG CAPSULE PO (20:12)
[2021-11-01] MEDS: traZODone HCL 50 MG TABLET PO (22:54)
[2021-11-02] MEDS: Omeprazole 20 MG CAPSULE.DR PO (06:21)
[2021-11-02 06:39] LABS: Glucose, Whole Blood 110 mg/dL (60-115)
[2021-11-02 08:30] VITALS: BP 120/81; PULSE 102; TEMP 36.3
[2021-11-02] MEDS: cloNIDine HCL 0.1 MG TABLET PO ×3 (08:45→21:38)
[2021-11-02] MEDS: cloZAPine 25 MG TABLET 150 MG PO ×2 (08:45→21:38)
[2021-11-02] MEDS: buPROPion HCL 100 MG TABLET PO (08:45)
[2021-11-02] MEDS: Cholecalciferol (Vitamin D3) 10 MCG TABLET PO (08:46)
[2021-11-02] MEDS: Ferrous Sulfate 324 MG TABLET.DR PO (08:46)
[2021-11-02] MEDS: Ascorbic Acid 500 MG TABLET 1000 MG PO (08:46)
[2021-11-02] MEDS: metFORMIN HCl 1,000 MG TABLET 1000 MG PO ×2 (08:46→21:39)
[2021-11-02] MEDS: Cyanocobalamin (Vitamin B-12) 1,000 MCG TABLET 1000 MCG PO (08:46)
[2021-11-02] MEDS: LORazepam 1 MG TABLET PO ×2 (08:46→21:38)
[2021-11-02] MEDS: Multivitamin TABLET 1 TAB PO (08:47)
[2021-11-02] MEDS: Losartan Potassium 25 MG TABLET PO (08:47)
[2021-11-02] MEDS: NeoMY/Polymyx/Bacit/Ointment 14 GM Tube TOPICAL ×2 (08:48→21:52)
--- NOTE | 2021-11-02 10:08 | HO.PSYCHPN ---
Subjective Subjective Date of Service: 11/02/21 Reason For Visit: Depression paranoia Interim History: Patient difficult to engage. Speech is quite late. She says that she is okay and denies any SI or HI. She denies she has any requests or complaints. Nursing staff reports that patient was paranoid today about medications took close to half an hour for her to take each medication as she deliberated over them Mental Status Exam Mental Status Exam Narrative: Patient Appearance:?Appropriate Patient Orientation:?Person, Place, Time and Situation Level of Consciousness:?Alert Patient Behavior:?Guarded, Cooperative, Passive, Suspicious, Timid, Anxious, Fearful, Avoidant, Fatigued, Distractible, Isolative and Good Eye Contact Mood Description:?Depressed Affect Description:?Flat Patient Cognition Impaired:?Yes Ability to Follow Directions:?Good Speech Pattern:?Spontaneous Speech Memory Description:?Episodic Impaired Hallucinations:?None Delusions:?Paranoid Ideation Perceptual Disturbances:?Depersonalization and Derealization Thought Process:?Distracted and Rumination Thought Content:?positive for [place], positive for Circumstantial, positive for Disorganized (per pt report) and positive for Suicidal Ideation Depressive Symptoms:?Increased Anxiety, Diff. Making Decisions, Loss of Int. in Activity, Feelings of Worthlessness, Hopelessness, Isolating-Friends/Family, Feelings of Guilt, Unhappiness, Increased Fatigue, Thoughts of /Suicide, Low Self Esteem, Loss of Energy and Difficulty Concentrating Judgement:?Poor Diagnostics Vital Signs (24Hr): Vital Signs - 24 hr 11/01/21 14:10 11/01/21 18:00 Temperature 97.4 F Pulse Rate 116 H 107 H Blood Pressure 117/68 131/80 BMI result Body Mass Index 31.4 Labs Results: 10/29/21 07:41 10/29/21 07:41 Labs: Laboratory Results - last 48 hr 10/24/21 11/01/21 11/02/21 08:17 06:37 06:20 POC Glucose 107 110 Clozapine 503 Norclozapine 205 Medications Medications Current Medications Acetaminophen (Acetaminophen 325 Mg Tablet) 650 mg PO Q6H PRN PRN Reason: Headache/Pain Mild Scale (1-3) Al Hydroxide/Mg Hydroxide (Magnesium Hydrox/Alum Hydrox 30 Ml Oral.Susp) 30 ml PO Q6H PRN PRN Reason: Heartburn/Nausea Last Admin: 10/02/21 14:41 Dose: 30 ml Documented by: Ascorbic Acid (Ascorbic Acid 500 Mg Tablet) 1,000 mg PO DAILY [facility] Last Admin: 11/02/21 08:46 Dose: 1,000 mg Documented by: Atorvastatin Calcium (Atorvastatin Calcium 10 Mg Tablet) 5 mg PO BEDTIME [facility] Last Admin: 11/01/21 20:12 Dose: 5 mg Documented by: Bupropion HCl (Bupropion Hcl 100 Mg Tablet) 100 mg PO DAILY [facility] Last Admin: 11/02/21 08:45 Dose: 100 mg Documented by: Clonidine HCl (Clonidine Hcl 0.1 Mg Tablet) 0.1 mg PO TID [facility]; Protocol Last Admin: 11/02/21 08:45 Dose: 0.1 mg Documented by: Clozapine (Clozapine 25 Mg Tablet) 150 mg PO BID [facility] Last Admin: 11/02/21 08:45 Dose: 150 mg Documented by: Cyanocobalamin (Cyanocobalamin (Vitamin B-12) 1,000 Mcg Tablet) 1,000 mcg PO DAILY [facility] Last Admin: 11/02/21 08:46 Dose: 1,000 mcg Documented by: Dexamethasone (Dexamethasone 4 Mg Tablet) 8 mg PO Tu@0800 [facility] Last Admin: 10/29/21 10:39 Dose: 8 mg Documented by: Docusate Sodium (Docusate Sodium 100 Mg Capsule) 100 mg PO BEDTIME [facility] Last Admin: 11/01/21 20:12 Dose: 100 mg Documented by: Enoxaparin Sodium (Enoxaparin Sodium 40 Mg/0.4 Ml Syringe) 40 mg SUBCUT Q24H [facility] Last Admin: 11/01/21 11:56 Dose: 40 mg Documented by: Ferrous Sulfate (Ferrous Sulfate 324 Mg Tablet.) 324 mg PO DAILY [facility] Last Admin: 11/02/21 08:46 Dose: 324 mg Documented by: Hydroxyzine HCl (Hydroxyzine Hcl 25 Mg Tablet) 25 mg PO BEDTIME PRN PRN Reason: Anxiety Last Admin: 10/31/21 02:30 Dose: 25 mg Documented by: Lorazepam (Lorazepam 1 Mg Tablet) 1 mg PO BID [facility] Last Admin: 11/02/21 08:46 Dose: 1 mg Documented by: Losartan Potassium (Losartan Potassium 25 Mg Tablet) 25 mg PO DAILY [facility]; Protocol Last Admin: 11/02/21 08:47 Dose: 25 mg Documented by: Lurasidone HCl (Lurasidone Hcl 20 Mg Tablet) 20 mg PO 1800 [facility] Last Admin: 11/01/21 18:26 Dose: 20 mg Documented by: Magnesium Hydroxide (Milk Of Magnesia 30 Ml Oral.Susp) 30 ml PO DAILY PRN PRN Reason: Constipation Metformin HCl (Metformin Hcl 1,000 Mg Tablet) 1,000 mg PO BID [facility] Last Admin: 11/02/21 08:46 Dose: 1,000 mg Documented by: Multivitamins/Vitamin C (Multivitamin Tablet) 1 tab PO DAILY [facility] Last Admin: 11/02/21 08:47 Dose: 1 tab Documented by: Neomycin/Polymyxin/Bacitracin (Neomy/Polymyx/Bacit/Ointment 14 Gm Tube) 1 gm TOPICAL BID [facility]; Protocol Last Admin: 11/02/21 08:48 Dose: 1 gm Documented by: Non-Formulary Medication (Cinnamon) 1,000 mg PO DAILY [facility] Last Admin: 11/02/21 09:08 Dose: 1,000 mg Documented by: Patient Own Medication ( Empagliflozin 10 Mg) 1 each PO DAILY [facility] Last Admin: 11/02/21 08:47 Dose: 1 each Documented by: Omeprazole (Omeprazole 20 Mg Capsule.Dr) 20 mg PO DAILY@0630 [facility] Last Admin: 11/02/21 06:21 Dose: 20 mg Documented by: Ondansetron HCl (Ondansetron Odt 8 Mg Tab.Rapdis) 8 mg TRANSLINGU Q8H PRN PRN Reason: nausea Prazosin HCl (Prazosin Hcl 1 Mg Capsule) 1 mg PO BEDTIME PRN; Protocol PRN Reason: nightmares Last Admin: 10/30/21 21:53 Dose: 1 mg Documented by: Trazodone HCl (Trazodone Hcl 50 Mg Tablet) 50 mg PO BEDTIME PRN PRN Reason: Insomnia Last Admin: 11/01/21 22:54 Dose: 50 mg Documented by: Vitamin D (Cholecalciferol (Vitamin D3) 10 Mcg Tablet) 10 mcg PO DAILY [facility] Last Admin: 11/02/21 08:46 Dose: 10 mcg Documented by: Allergies Allergies Allergy/AdvReac Type Severity Reaction Status Date / Time lisinopril [LISINOPRIL] Allergy Unknown SWOLLEN Verified 09/17/21 08:42 LIPS, angioedema, swelling Assessment & Plan Assessment & Plan (1) Schizoaffective disorder: Status: Acute Code(s): F25.9 - Schizoaffective disorder, unspecified (2) Invasive ductal carcinoma of right breast: Status: Acute Code(s): C50.911 - Malignant neoplasm of unspecified site of right female breast (3) Hypertension: Qualifiers: Hypertension type: essential hypertension Qualified Code(s): I10 - Essential (primary) hypertension Status: Acute Code(s): I10 - Essential (primary) hypertension (4) Hypercholesterolemia: Status: Acute Code(s): E78.00 - Pure hypercholesterolemia, unspecified (5) Type 2 diabetes mellitus with hyperglycemia: Qualifiers: Diabetes mellitus detention insulin use: without detention use Qualified Code(s): E11.65 - Type 2 diabetes mellitus with hyperglycemia Status: Acute Code(s): E11.65 - Type 2 diabetes mellitus with hyperglycemia Assessment and Plan: Continue metformin Jardiance monitor point of care (6) GERD (gastroesophageal reflux disease): Qualifiers: Esophagitis presence: without esophagitis Qualified Code(s): K21.9 - Gastro-esophageal reflux disease without esophagitis Status: Acute Code(s): K21.9 - Gastro-esophageal reflux disease without esophagitis Plan 50 yo female, hx of schizoaffective disorder, depressed with R breast cancer, having just completed first cycle of chemotherapy. Pt's partner and sister report to crisis team that pt has had a significant mental status change with psychotic symptoms, paranoia, perceptual alterations, poor sleep and significant thought blocking. Pt denies SI, HI. Today she is a very poor historian-almost pre-catatonic at times, considering signing a three day notice of intent. Team report by history she may not be comfortable in this facility. Assessment plan for 09/21/2021 Continue current medical treatment elevated white blood count noted over the past month question related to cancer treatment. No evidence of infection Patient depressed withdrawn preoccupied patient with recent treatment for ductal carcinoma stress of this might certainly lead to depressive almost catatonic episode 09/22/21 Pt with thought blocking improved from yeterday have restarted wellbutin hosp did not have sr cont clozapine evaluate baseline denies self harm oob more 09/23/21 Continue current plan of care. Collateral contacts with OP team, oncology. 09/24/21 Increase Abilify to 30 mg daily Pt currently refusing Lorazepam TDN expires 09/25/21-will file for civil commitment if pt persists in wanting discharge 09/25/21 Civil commitment filing completed Continue current regime. 09/26/21 Continue current regime 09/27/32 Decrease Abilify to 20 mg daily Risperdal 1.5 mg HS 09/28/21 Continue plan as above 09/29/21 No changes 09/30/21 Court 10/01/21 Chemotherapy 10/01/21 Increase Risperdal to 2.5 mg HS Decrease Abilify to 10 mg daily 10/02/21 Tolerating change back to Abilify from Risperdal Appetite is improved. Calmer, more visable, however continues with paranoia Jardiance ordered from [facility] 10/03/21 Increase Abilify to 30 mg daily Will pursue validation of pt's HCP for continued chemotherapy Tentative chemotherapy 10/09. 10/04/21 Continue current regime 10/05 no changes to current regimen 10/06 no changes to current regimen 10/07/21 No positive effect from increase in Abilify Increase Clozaril to 100 mg bid, an increase of 50 mg daily, divided. Chemotherapy 10/09/21, Labs 10/08/21. 10/08/21 Tolerating Clozaril increase thus far Dexamethasone 4 mg hs and 4 mg a.m. pre chemo per Dr. Mora Support, encourage 10/09/21 Continue current plan of care 10/10/21 Continue current plan of care 10/11/21 Continue current plan. Will re-eval for Clozaril increase next week. 10/12/2021: Continue current regimen and plans. No changes were made today 10/13/2021: Continue current plans and regimen. 10/14/21: Increase Clozaril to 125 mg bid EKG, CBCD, CMP 10/15 prior to chemotherapy 10/15/21: Continue current plan of care 10/16/21: Continue current plan. Tolerating Clozaril increase 10/17/21: Continue current regime. 10/18/21: Increase Clozaril to 150 mg bid Decrease Abilify to 20 mg daily ECT Consult 10/19/21: continue meds unchanged 10/20/21: pt continue to present as paranoid, withdrawn 10/21/21: Continue current regime. Labs/EKG 10/22. Some improvement today. 10/22/21: Labs/EKG WNL Meeting 10/24 with health care proxy's to discuss clozaril discontinuation ECT Consult 10/24/21: Continue current plan. 10/25/21: Continue current plan. 10/26: ECT may be indicated. Change Ativan to standing dose. 10/27 Increase Ativan to 1 mg TID and watch for sedation 10/28/21: CBCD, CMP, EKG 10/29/21 in preparation for chemotherapy Await Clozapine level results. 10/29/21: ECT consult 10/30 Chemotherapy 10/30 Await Clozapine level results. Tentative plan to taper Abilify, titrate Latuda. Family/HCP in agreement. Pt agrees as well. 10/30/21: Decrease Abilify to 10 mg daily to prepare to begin Latuda 10/31/21: Continue current plan. 11/01/21: Discontinue Abilify Latuda 20 mg 1800 11/02/21: Continue current treatment plan I spent minutes with the patient and/or on the patient floor today, greater than?50% of which was spent counseling/coordinating care. Reason for contiued inpatient stay Substantial Risk for: inability to function and rapid decompensation
[2021-11-02] MEDS: Enoxaparin Sodium 40 MG/0.4 ML SYRINGE SUBCUT (12:16)
[2021-11-02 17:06] VITALS: BP 109/66; PULSE 108; RESP 16; TEMP 36.1; O2SAT 99
[2021-11-02] MEDS: Lurasidone HCl 20 MG TABLET PO (19:06)
[2021-11-02] MEDS: Docusate Sodium 100 MG CAPSULE PO (21:38)
[2021-11-02] MEDS: Atorvastatin Calcium 10 MG TABLET 5 MG PO (21:38)
[2021-11-02] MEDS: traZODone HCL 50 MG TABLET PO (22:08)
[2021-11-03] MEDS: Omeprazole 20 MG CAPSULE.DR PO (06:27)
[2021-11-03 06:41] LABS: Glucose, Whole Blood 116 mg/dL (60-115)
[2021-11-03 08:30] VITALS: BP 123/78; PULSE 110; TEMP 36.3
[2021-11-03] MEDS: Ascorbic Acid 500 MG TABLET 1000 MG PO (08:54)
[2021-11-03] MEDS: Cyanocobalamin (Vitamin B-12) 1,000 MCG TABLET 1000 MCG PO (08:54)
[2021-11-03] MEDS: metFORMIN HCl 1,000 MG TABLET 1000 MG PO ×2 (08:54→20:56)
[2021-11-03] MEDS: LORazepam 1 MG TABLET PO ×2 (08:55→20:56)
[2021-11-03] MEDS: Cholecalciferol (Vitamin D3) 10 MCG TABLET PO (08:55)
[2021-11-03] MEDS: buPROPion HCL 100 MG TABLET PO (08:56)
[2021-11-03] MEDS: Multivitamin TABLET 1 TAB PO (08:56)
[2021-11-03] MEDS: Losartan Potassium 25 MG TABLET PO (08:56)
[2021-11-03] MEDS: Ferrous Sulfate 324 MG TABLET.DR PO (08:56)
[2021-11-03] MEDS: cloNIDine HCL 0.1 MG TABLET PO ×3 (08:56→20:53)
[2021-11-03] MEDS: NeoMY/Polymyx/Bacit/Ointment 14 GM Tube TOPICAL ×2 (08:59→21:02)
[2021-11-03] MEDS: cloZAPine 25 MG TABLET 150 MG PO ×2 (09:09→20:54)
--- NOTE | 2021-11-03 13:38 | HO.PSYCHPN ---
Subjective Subjective Date of Service: 11/03/21 Reason For Visit: Depression paranoia Interim History: Patient speech a little more spontaneous today. She said she is feeling okay and just writing in her journal. She also asked radio news writer what time it was using radio news writer's name, which was more outgoing than radio news writer has experienced with her in the past. Patient had a visit with her partner today; but radio news writer asked if it was a good visit to which she said yes and no. said patient was little as paranoid about her medications today her paranoid remains. Mental Status Exam Mental Status Exam Narrative: Patient Appearance:?Appropriate Patient Orientation:?Person, Place, Time and Situation Level of Consciousness:?Alert Patient Behavior:?Guarded, Cooperative, Passive, Suspicious, Timid, Anxious, Fearful, Avoidant, Fatigued, Distractible, Isolative and Good Eye Contact Mood Description:?Depressed Affect Description:?Flat Patient Cognition Impaired:?Yes Ability to Follow Directions:?Good Speech Pattern:?Spontaneous Speech Memory Description:?Episodic Impaired Hallucinations:?None Delusions:?Paranoid Ideation Perceptual Disturbances:?Depersonalization and Derealization Thought Process:?Distracted and Rumination Thought Content:?positive for [place], positive for Circumstantial, positive for Disorganized (per pt report) and positive for Suicidal Ideation Depressive Symptoms:?Increased Anxiety, Diff. Making Decisions, Loss of Int. in Activity, Feelings of Worthlessness, Hopelessness, Isolating-Friends/Family, Feelings of Guilt, Unhappiness, Increased Fatigue, Thoughts of /Suicide, Low Self Esteem, Loss of Energy and Difficulty Concentrating Judgement:?Poor Diagnostics Vital Signs (24Hr): Vital Signs - 24 hr 11/02/21 17:06 11/03/21 08:30 Temperature 97 F 97.4 F Pulse Rate 108 H 110 H Respiratory Rate 16 Blood Pressure 109/66 123/78 Pulse Oximetry 99 BMI result Body Mass Index 31.4 Labs Results: 10/29/21 07:41 10/29/21 07:41 Labs: Laboratory Results - last 48 hr 11/02/21 11/03/21 06:20 06:35 POC Glucose 110 116 H Medications Medications Current Medications Acetaminophen (Acetaminophen 325 Mg Tablet) 650 mg PO Q6H PRN PRN Reason: Headache/Pain Mild Scale (1-3) Al Hydroxide/Mg Hydroxide (Magnesium Hydrox/Alum Hydrox 30 Ml Oral.Susp) 30 ml PO Q6H PRN PRN Reason: Heartburn/Nausea Last Admin: 10/02/21 14:41 Dose: 30 ml Documented by: Ascorbic Acid (Ascorbic Acid 500 Mg Tablet) 1,000 mg PO DAILY [facility] Last Admin: 11/03/21 08:54 Dose: 1,000 mg Documented by: Atorvastatin Calcium (Atorvastatin Calcium 10 Mg Tablet) 5 mg PO BEDTIME [facility] Last Admin: 11/02/21 21:38 Dose: 5 mg Documented by: Bupropion HCl (Bupropion Hcl 100 Mg Tablet) 100 mg PO DAILY [facility] Last Admin: 11/03/21 08:56 Dose: 100 mg Documented by: Clonidine HCl (Clonidine Hcl 0.1 Mg Tablet) 0.1 mg PO TID [facility]; Protocol Last Admin: 11/03/21 08:56 Dose: 0.1 mg Documented by: Clozapine (Clozapine 25 Mg Tablet) 150 mg PO BID [facility] Last Admin: 11/03/21 09:09 Dose: 150 mg Documented by: Cyanocobalamin (Cyanocobalamin (Vitamin B-12) 1,000 Mcg Tablet) 1,000 mcg PO DAILY [facility] Last Admin: 11/03/21 08:54 Dose: 1,000 mcg Documented by: Dexamethasone (Dexamethasone 4 Mg Tablet) 8 mg PO Tu@0800 [facility] Last Admin: 10/29/21 10:39 Dose: 8 mg Documented by: Docusate Sodium (Docusate Sodium 100 Mg Capsule) 100 mg PO BEDTIME [facility] Last Admin: 11/02/21 21:38 Dose: 100 mg Documented by: Enoxaparin Sodium (Enoxaparin Sodium 40 Mg/0.4 Ml Syringe) 40 mg SUBCUT Q24H [facility] Last Admin: 11/02/21 12:16 Dose: 40 mg Documented by: Ferrous Sulfate (Ferrous Sulfate 324 Mg Tablet.) 324 mg PO DAILY [facility] Last Admin: 11/03/21 08:56 Dose: 324 mg Documented by: Hydroxyzine HCl (Hydroxyzine Hcl 25 Mg Tablet) 25 mg PO BEDTIME PRN PRN Reason: Anxiety Last Admin: 10/31/21 02:30 Dose: 25 mg Documented by: Lorazepam (Lorazepam 1 Mg Tablet) 1 mg PO BID [facility] Last Admin: 11/03/21 08:55 Dose: 1 mg Documented by: Losartan Potassium (Losartan Potassium 25 Mg Tablet) 25 mg PO DAILY [facility]; Protocol Last Admin: 11/03/21 08:56 Dose: 25 mg Documented by: Lurasidone HCl (Lurasidone Hcl 20 Mg Tablet) 20 mg PO 1800 [facility] Last Admin: 11/02/21 19:06 Dose: 20 mg Documented by: Magnesium Hydroxide (Milk Of Magnesia 30 Ml Oral.Susp) 30 ml PO DAILY PRN PRN Reason: Constipation Metformin HCl (Metformin Hcl 1,000 Mg Tablet) 1,000 mg PO BID [facility] Last Admin: 11/03/21 08:54 Dose: 1,000 mg Documented by: Multivitamins/Vitamin C (Multivitamin Tablet) 1 tab PO DAILY [facility] Last Admin: 11/03/21 08:56 Dose: 1 tab Documented by: Neomycin/Polymyxin/Bacitracin (Neomy/Polymyx/Bacit/Ointment 14 Gm Tube) 1 gm TOPICAL BID [facility]; Protocol Last Admin: 11/03/21 08:59 Dose: 1 gm Documented by: Non-Formulary Medication (Cinnamon) 1,000 mg PO DAILY [facility] Last Admin: 11/03/21 08:57 Dose: 1,000 mg Documented by: Patient Own Medication ( Empagliflozin 10 Mg) 1 each PO DAILY [facility] Last Admin: 11/03/21 08:57 Dose: 1 each Documented by: Omeprazole (Omeprazole 20 Mg Capsule.) 20 mg PO DAILY@0630 [facility] Last Admin: 11/03/21 06:27 Dose: 20 mg Documented by: Ondansetron HCl (Ondansetron Odt 8 Mg Tab.Rapdis) 8 mg TRANSLINGU Q8H PRN PRN Reason: nausea Prazosin HCl (Prazosin Hcl 1 Mg Capsule) 1 mg PO BEDTIME PRN; Protocol PRN Reason: nightmares Last Admin: 10/30/21 21:53 Dose: 1 mg Documented by: Trazodone HCl (Trazodone Hcl 50 Mg Tablet) 50 mg PO BEDTIME PRN PRN Reason: Insomnia Last Admin: 11/02/21 22:08 Dose: 50 mg Documented by: Vitamin D (Cholecalciferol (Vitamin D3) 10 Mcg Tablet) 10 mcg PO DAILY [facility] Last Admin: 11/03/21 08:55 Dose: 10 mcg Documented by: Allergies Allergies Allergy/AdvReac Type Severity Reaction Status Date / Time lisinopril [LISINOPRIL] Allergy Unknown SWOLLEN Verified 09/17/21 08:42 LIPS, angioedema, swelling Assessment & Plan Assessment & Plan (1) Schizoaffective disorder: Status: Acute Code(s): F25.9 - Schizoaffective disorder, unspecified (2) Invasive ductal carcinoma of right breast: Status: Acute Code(s): C50.911 - Malignant neoplasm of unspecified site of right female breast (3) Hypertension: Qualifiers: Hypertension type: essential hypertension Qualified Code(s): I10 - Essential (primary) hypertension Status: Acute Code(s): I10 - Essential (primary) hypertension (4) Hypercholesterolemia: Status: Acute Code(s): E78.00 - Pure hypercholesterolemia, unspecified (5) Type 2 diabetes mellitus with hyperglycemia: Qualifiers: Diabetes mellitus chcf insulin use: without chcf use Qualified Code(s): E11.65 - Type 2 diabetes mellitus with hyperglycemia Status: Acute Code(s): E11.65 - Type 2 diabetes mellitus with hyperglycemia Assessment and Plan: Continue metformin Jardiance monitor point of care (6) GERD (gastroesophageal reflux disease): Qualifiers: Esophagitis presence: without esophagitis Qualified Code(s): K21.9 - Gastro-esophageal reflux disease without esophagitis Status: Acute Code(s): K21.9 - Gastro-esophageal reflux disease without esophagitis Plan 50 yo female, hx of schizoaffective disorder, depressed with R breast cancer, having just completed first cycle of chemotherapy. Pt's partner and sister report to crisis team that pt has had a significant mental status change with psychotic symptoms, paranoia, perceptual alterations, poor sleep and significant thought blocking. Pt denies SI, HI. Today she is a very poor historian-almost pre-catatonic at times, considering signing a three day notice of intent. Team report by history she may not be comfortable in this facility. Assessment plan for 09/21/2021 Continue current medical treatment elevated white blood count noted over the past month question related to cancer treatment. No evidence of infection Patient depressed withdrawn preoccupied patient with recent treatment for ductal carcinoma stress of this might certainly lead to depressive almost catatonic episode 09/22/21 Pt with thought blocking improved from yeterday have restarted wellbutin hosp did not have sr cont clozapine evaluate baseline denies self harm oob more 09/23/21 Continue current plan of care. Collateral contacts with OP team, oncology. 3/1/22 Increase Abilify to 30 mg daily Pt currently refusing Lorazepam TDN expires 09/25/21-will file for civil commitment if pt persists in wanting discharge 09/25/21 Civil commitment filing completed Continue current regime. 09/26/21 Continue current regime 09/27/32 Decrease Abilify to 20 mg daily Risperdal 1.5 mg HS 09/28/21 Continue plan as above 09/29/21 No changes 09/30/21 Court 10/01/21 Chemotherapy 10/01/21 Increase Risperdal to 2.5 mg HS Decrease Abilify to 10 mg daily 10/02/21 Tolerating change back to Abilify from Risperdal Appetite is improved. Calmer, more visable, however continues with paranoia Jardiance ordered from [place] pharmacy 10/03/21 Increase Abilify to 30 mg daily Will pursue validation of pt's HCP for continued chemotherapy Tentative chemotherapy 10/09. 10/04/21 Continue current regime 10/05 no changes to current regimen 10/06 no changes to current regimen 10/07/21 No positive effect from increase in Abilify Increase Clozaril to 100 mg bid, an increase of 50 mg daily, divided. Chemotherapy 10/09/21, Labs 10/08/21. 10/08/21 Tolerating Clozaril increase thus far Dexamethasone 4 mg hs and 4 mg a.m. pre chemo per Dr. Mora Support, encourage 10/09/21 Continue current plan of care 10/10/21 Continue current plan of care 10/11/21 Continue current plan. Will re-eval for Clozaril increase next week. 10/12/2021: Continue current regimen and plans. No changes were made today 10/13/2021: Continue current plans and regimen. 10/14/21: Increase Clozaril to 125 mg bid EKG, CBCD, CMP 10/15 prior to chemotherapy 10/15/21: Continue current plan of care 10/16/21: Continue current plan. Tolerating Clozaril increase 10/17/21: Continue current regime. 10/18/21: Increase Clozaril to 150 mg bid Decrease Abilify to 20 mg daily ECT Consult 10/19/21: continue meds unchanged 10/20/21: pt continue to present as paranoid, withdrawn 10/21/21: Continue current regime. Labs/EKG 10/22. Some improvement today. 10/22/21: Labs/EKG WNL Meeting 10/24 with health care proxy's to discuss clozaril discontinuation ECT Consult 10/24/21: Continue current plan. 10/25/21: Continue current plan. 10/26: ECT may be indicated. Change Ativan to standing dose. 10/27 Increase Ativan to 1 mg TID and watch for sedation 10/28/21: CBCD, CMP, EKG 10/29/21 in preparation for chemotherapy Await Clozapine level results. 10/29/21: ECT consult 10/30 Chemotherapy 10/30 Await Clozapine level results. Tentative plan to taper Abilify, titrate Latuda. Family/HCP in agreement. Pt agrees as well. 10/30/21: Decrease Abilify to 10 mg daily to prepare to begin Latuda 10/31/21: Continue current plan. 11/01/21: Discontinue Abilify Latuda 20 mg 1800 11/02/21: Continue current treatment plan 11/03/21: Continue current treatment plan I spent minutes with the patient and/or on the patient floor today, greater than?50% of which was spent counseling/coordinating care. Reason for contiued inpatient stay Substantial Risk for: inability to function and rapid decompensation
[2021-11-03] MEDS: Enoxaparin Sodium 40 MG/0.4 ML SYRINGE SUBCUT (13:39)
[2021-11-03 14:26] VITALS: BP 116/68; PULSE 118
[2021-11-03] MEDS: Lurasidone HCl 20 MG TABLET PO (18:46)
[2021-11-03 20:35] VITALS: BP 113/72; PULSE 113; TEMP 36.3; O2SAT 100
[2021-11-03] MEDS: Atorvastatin Calcium 10 MG TABLET 5 MG PO (20:53)
[2021-11-03] MEDS: Docusate Sodium 100 MG CAPSULE PO (20:55)
[2021-11-04] MEDS: Omeprazole 20 MG CAPSULE.DR PO (06:21)
[2021-11-04 06:40] LABS: Glucose, Whole Blood 113 mg/dL (60-115)
[2021-11-04 08:15] VITALS: BP 125/63; PULSE 126; TEMP 35.8
[2021-11-04] MEDS: cloZAPine 25 MG TABLET 150 MG PO ×2 (08:23→20:53)
[2021-11-04] MEDS: Cholecalciferol (Vitamin D3) 10 MCG TABLET PO (08:24)
[2021-11-04] MEDS: cloNIDine HCL 0.1 MG TABLET PO ×3 (08:24→20:52)
[2021-11-04] MEDS: Ascorbic Acid 500 MG TABLET 1000 MG PO (08:24)
[2021-11-04] MEDS: Cyanocobalamin (Vitamin B-12) 1,000 MCG TABLET 1000 MCG PO (08:24)
[2021-11-04] MEDS: Losartan Potassium 25 MG TABLET PO (08:24)
[2021-11-04] MEDS: Multivitamin TABLET 1 TAB PO (08:24)
[2021-11-04] MEDS: Ferrous Sulfate 324 MG TABLET.DR PO (08:24)
[2021-11-04] MEDS: metFORMIN HCl 1,000 MG TABLET 1000 MG PO ×2 (08:25→20:52)
[2021-11-04] MEDS: buPROPion HCL 100 MG TABLET PO (08:25)
[2021-11-04] MEDS: NeoMY/Polymyx/Bacit/Ointment 14 GM Tube TOPICAL (08:51)
[2021-11-04 13:00] VITALS: BP 116/62; PULSE 111
[2021-11-04] MEDS: Enoxaparin Sodium 40 MG/0.4 ML SYRINGE SUBCUT (13:21)
--- NOTE | 2021-11-04 16:39 | HO.PSYCHPN ---
Subjective Subjective Date of Service: 11/04/21 Reason For Visit: Depression paranoia Subjective Notes: [employer] Healthcare Proxy: No Guardianship: No Medical Problems Affecting Mental Status: No Interim History: Met with Sabra and her sister. Improvement noted. Discussed her concerns about going to [facility]. Less sx of paucity, thought blocking Per sister's report, pt, over the weekend, discussed feeling concerned that she had worried her partner with current sx of illness. She was able to be clear, have perspective, and process-something she had not been able to do recently. Medication Compliance: Yes Side effects from medications: No Attending Groups: Intermittent Review of Systems Acute medical concerns: No Medical Review of Systems: unchanged Review of Systems Reports behavioral changes Psychiatric: Reports anxiety, Reports behavioral changes, Reports depression, Reports difficulty concentrating, Reports anhedonia, Reports paranoia and Reports suicidal ideation (denies) Mental Status Exam Mental Status Exam Patient Appearance: Appropriate Patient Orientation: Person, Place, Time and Situation Level of Consciousness: Alert Patient Behavior: Talkative, Suspicious and Good Eye Contact Mood Description: Constricted Affect Description: Constricted Patient Cognition Impaired: Yes Speech Pattern: Spontaneous Speech and Delayed Memory Description: Episodic Impaired Hallucinations: None Delusions: Paranoid Ideation Perceptual Disturbances: Depersonalization and Derealization Thought Process: Distracted Thought Content: positive for [place], positive for Obsessional Thoughts, positive for Perseveration, positive for Thought Blocking and positive for Suicidal Ideation (denies) Depressive Symptoms: Diff. Making Decisions, Feelings of Guilt and Thoughts of /Suicide (denies) Judgement: Fair Diagnostics Vital Signs (24Hr): Vital Signs - 24 hr 11/03/21 20:35 11/04/21 08:15 11/04/21 13:00 Temperature 97.4 F 96.5 F L Pulse Rate 113 H 126 H 111 H Blood Pressure 113/72 125/63 116/62 Pulse Oximetry 100 BMI result Body Mass Index 31.4 Labs Results: 10/29/21 07:41 10/29/21 07:41 Labs: Laboratory Results - last 48 hr 11/03/21 11/04/21 06:35 06:20 POC Glucose 116 H 113 Medications Medications Current Medications Acetaminophen (Acetaminophen 325 Mg Tablet) 650 mg PO Q6H PRN PRN Reason: Headache/Pain Mild Scale (1-3) Al Hydroxide/Mg Hydroxide (Magnesium Hydrox/Alum Hydrox 30 Ml Oral.Susp) 30 ml PO Q6H PRN PRN Reason: Heartburn/Nausea Last Admin: 10/02/21 14:41 Dose: 30 ml Documented by: Ascorbic Acid (Ascorbic Acid 500 Mg Tablet) 1,000 mg PO DAILY [facility] Last Admin: 11/04/21 08:24 Dose: 1,000 mg Documented by: Atorvastatin Calcium (Atorvastatin Calcium 10 Mg Tablet) 5 mg PO BEDTIME [facility] Last Admin: 11/03/21 20:53 Dose: 5 mg Documented by: Bupropion HCl (Bupropion Hcl 100 Mg Tablet) 100 mg PO DAILY [facility] Last Admin: 11/04/21 08:25 Dose: 100 mg Documented by: Clonidine HCl (Clonidine Hcl 0.1 Mg Tablet) 0.1 mg PO TID [facility]; Protocol Last Admin: 11/04/21 14:57 Dose: 0.1 mg Documented by: Clozapine (Clozapine 25 Mg Tablet) 150 mg PO BID [facility] Last Admin: 11/04/21 08:23 Dose: 150 mg Documented by: Cyanocobalamin (Cyanocobalamin (Vitamin B-12) 1,000 Mcg Tablet) 1,000 mcg PO DAILY [facility] Last Admin: 11/04/21 08:24 Dose: 1,000 mcg Documented by: Dexamethasone (Dexamethasone 4 Mg Tablet) 8 mg PO Tu@0800 [facility] Last Admin: 10/29/21 10:39 Dose: 8 mg Documented by: Docusate Sodium (Docusate Sodium 100 Mg Capsule) 100 mg PO BEDTIME [facility] Last Admin: 11/03/21 20:55 Dose: 100 mg Documented by: Enoxaparin Sodium (Enoxaparin Sodium 40 Mg/0.4 Ml Syringe) 40 mg SUBCUT Q24H [facility] Last Admin: 11/04/21 13:21 Dose: 40 mg Documented by: Ferrous Sulfate (Ferrous Sulfate 324 Mg Tablet.) 324 mg PO DAILY [facility] Last Admin: 11/04/21 08:24 Dose: 324 mg Documented by: Hydroxyzine HCl (Hydroxyzine Hcl 25 Mg Tablet) 25 mg PO BEDTIME PRN PRN Reason: Anxiety Last Admin: 10/31/21 02:30 Dose: 25 mg Documented by: Losartan Potassium (Losartan Potassium 25 Mg Tablet) 25 mg PO DAILY [facility]; Protocol Last Admin: 11/04/21 08:24 Dose: 25 mg Documented by: Lurasidone HCl (Lurasidone Hcl 20 Mg Tablet) 20 mg PO 1800 [facility] Last Admin: 11/03/21 18:46 Dose: 20 mg Documented by: Magnesium Hydroxide (Milk Of Magnesia 30 Ml Oral.Susp) 30 ml PO DAILY PRN PRN Reason: Constipation Metformin HCl (Metformin Hcl 1,000 Mg Tablet) 1,000 mg PO BID [facility] Last Admin: 11/04/21 08:25 Dose: 1,000 mg Documented by: Multivitamins/Vitamin C (Multivitamin Tablet) 1 tab PO DAILY [facility] Last Admin: 11/04/21 08:24 Dose: 1 tab Documented by: Neomycin/Polymyxin/Bacitracin (Neomy/Polymyx/Bacit/Ointment 14 Gm Tube) 1 gm TOPICAL BID [facility]; Protocol Last Admin: 11/04/21 08:51 Dose: 1 gm Documented by: Non-Formulary Medication (Cinnamon) 1,000 mg PO DAILY [facility] Last Admin: 11/04/21 08:23 Dose: 1,000 mg Documented by: Patient Own Medication ( Empagliflozin 10 Mg) 1 each PO DAILY [facility] Last Admin: 11/04/21 08:23 Dose: 1 each Documented by: Omeprazole (Omeprazole 20 Mg Capsule.Dr) 20 mg PO DAILY@0630 [facility] Last Admin: 11/04/21 06:21 Dose: 20 mg Documented by: Ondansetron HCl (Ondansetron Odt 8 Mg Tab.Rapdis) 8 mg TRANSLINGU Q8H PRN PRN Reason: nausea Prazosin HCl (Prazosin Hcl 1 Mg Capsule) 1 mg PO BEDTIME PRN; Protocol PRN Reason: nightmares Last Admin: 10/30/21 21:53 Dose: 1 mg Documented by: Trazodone HCl (Trazodone Hcl 50 Mg Tablet) 50 mg PO BEDTIME PRN PRN Reason: Insomnia Last Admin: 11/02/21 22:08 Dose: 50 mg Documented by: Vitamin D (Cholecalciferol (Vitamin D3) 10 Mcg Tablet) 10 mcg PO DAILY [facility] Last Admin: 11/04/21 08:24 Dose: 10 mcg Documented by: Allergies Allergies Allergy/AdvReac Type Severity Reaction Status Date / Time lisinopril [LISINOPRIL] Allergy Unknown SWOLLEN Verified 09/17/21 08:42 LIPS, angioedema, swelling Assessment & Plan Assessment & Plan (1) Schizoaffective disorder: Status: Acute Code(s): F25.9 - Schizoaffective disorder, unspecified (2) Invasive ductal carcinoma of right breast: Status: Acute Code(s): C50.911 - Malignant neoplasm of unspecified site of right female breast (3) Hypertension: Qualifiers: Hypertension type: essential hypertension Qualified Code(s): I10 - Essential (primary) hypertension Status: Acute Code(s): I10 - Essential (primary) hypertension (4) Hypercholesterolemia: Status: Acute Code(s): E78.00 - Pure hypercholesterolemia, unspecified (5) Type 2 diabetes mellitus with hyperglycemia: Qualifiers: Diabetes mellitus group home insulin use: without intermediate designer use Qualified Code(s): E11.65 - Type 2 diabetes mellitus with hyperglycemia Status: Acute Code(s): E11.65 - Type 2 diabetes mellitus with hyperglycemia Assessment and Plan: Continue metformin Jardiance monitor point of care (6) GERD (gastroesophageal reflux disease): Qualifiers: Esophagitis presence: without esophagitis Qualified Code(s): K21.9 - Gastro-esophageal reflux disease without esophagitis Status: Acute Code(s): K21.9 - Gastro-esophageal reflux disease without esophagitis Plan 50 yo female, hx of schizoaffective disorder, depressed with R breast cancer, having just completed first cycle of chemotherapy. Pt's partner and sister report to crisis team that pt has had a significant mental status change with psychotic symptoms, paranoia, perceptual alterations, poor sleep and significant thought blocking. Pt denies SI, HI. Today she is a very poor historian-almost pre-catatonic at times, considering signing a three day notice of intent. Team report by history she may not be comfortable in this facility. Assessment plan for 09/21/2021 Continue current medical treatment elevated white blood count noted over the past month question related to cancer treatment. No evidence of infection Patient depressed withdrawn preoccupied patient with recent treatment for ductal carcinoma stress of this might certainly lead to depressive almost catatonic episode 09/22/21 Pt with thought blocking improved from yeterday have restarted wellbutin hosp did not have sr cont clozapine evaluate baseline denies self harm oob more 09/23/21 Continue current plan of care. Collateral contacts with OP team, oncology. 09/24/21 Increase Abilify to 30 mg daily Pt currently refusing Lorazepam TDN expires 09/25/21-will file for civil commitment if pt persists in wanting discharge 09/25/21 Civil commitment filing completed Continue current regime. 09/26/21 Continue current regime 09/27/32 Decrease Abilify to 20 mg daily Risperdal 1.5 mg HS 09/28/21 Continue plan as above 09/29/21 No changes 09/30/21 Court 10/01/21 Chemotherapy 10/01/21 Increase Risperdal to 2.5 mg HS Decrease Abilify to 10 mg daily 10/02/21 Tolerating change back to Abilify from Risperdal Appetite is improved. Calmer, more visable, however continues with paranoia Jardiance ordered from [facility] 10/03/21 Increase Abilify to 30 mg daily Will pursue validation of pt's HCP for continued chemotherapy Tentative chemotherapy 10/09. 10/04/21 Continue current regime 10/05 no changes to current regimen 10/06 no changes to current regimen 10/07/21 No positive effect from increase in Abilify Increase Clozaril to 100 mg bid, an increase of 50 mg daily, divided. Chemotherapy 10/09/21, Labs 10/08/21. 10/08/21 Tolerating Clozaril increase thus far Dexamethasone 4 mg hs and 4 mg a.m. pre chemo per Dr. Mora Support, encourage 10/09/21 Continue current plan of care 10/10/21 Continue current plan of care 10/11/21 Continue current plan. Will re-eval for Clozaril increase next week. 10/12/2021: Continue current regimen and plans. No changes were made today 10/13/2021: Continue current plans and regimen. 10/14/21: Increase Clozaril to 125 mg bid EKG, CBCD, CMP 10/15 prior to chemotherapy 10/15/21: Continue current plan of care 10/16/21: Continue current plan. Tolerating Clozaril increase 10/17/21: Continue current regime. 10/18/21: Increase Clozaril to 150 mg bid Decrease Abilify to 20 mg daily ECT Consult 10/19/21: continue meds unchanged 10/20/21: pt continue to present as paranoid, withdrawn 10/21/21: Continue current regime. Labs/EKG 10/22. Some improvement today. 10/22/21: Labs/EKG WNL Meeting 10/24 with health care proxy's to discuss clozaril discontinuation ECT Consult 10/24/21: Continue current plan. 10/25/21: Continue current plan. 10/26: ECT may be indicated. Change Ativan to standing dose. 10/27 Increase Ativan to 1 mg TID and watch for sedation 10/28/21: CBCD, CMP, EKG 10/29/21 in preparation for chemotherapy Await Clozapine level results. 10/29/21: ECT consult 10/30 Chemotherapy 10/30 Await Clozapine level results. Tentative plan to taper Abilify, titrate Latuda. Family/HCP in agreement. Pt agrees as well. 10/30/21: Decrease Abilify to 10 mg daily to prepare to begin Latuda 10/31/21: Continue current plan. 11/01/21: Discontinue Abilify Latuda 20 mg 1800 11/02/21: Continue current treatment plan 11/03/21: Continue current treatment plan 11/04/21: Tolerating Latuda. Pt asks not to titrate yet. Some improvement noted. I spent minutes with the patient and/or on the patient floor today, greater than?50% of which was spent counseling/coordinating care. Patient educated on: medication risk/benefits and therapeutic strategies Guardian/Caregiver educated on: medication risk/benefits and therapeutic strategies Informed Consent: further education needed Reason for contiued inpatient stay Substantial Risk for: harm to self, inability to function, rapid decompensation and med/psych decompensation
--- NOTE | 2021-11-04 19:21 | ECG_ITS ---
Test Reason : alter meds Blood Pressure : / mmHG Vent. Rate : 107 BPM Atrial Rate : 107 BPM P-R Int : 138 ms QRS Dur : 076 ms QT Int : 338 ms P-R-T Axes : 000 118 167 degrees QTc Int : 451 ms Limb leads reversal Sinus tachycardia Left posterior fascicular block Nonspecific T wave abnormality Abnormal ECG No previous ECGs available Referred By: Marci Jones Electronically Signed By:Joel Horne
[2021-11-04] MEDS: Lurasidone HCl 20 MG TABLET PO (19:47)
[2021-11-04 20:30] VITALS: BP 126/79; PULSE 103; TEMP 35.8
[2021-11-04] MEDS: Atorvastatin Calcium 10 MG TABLET 5 MG PO (20:51)
[2021-11-04] MEDS: Docusate Sodium 100 MG CAPSULE PO (20:52)
[2021-11-04] MEDS: traZODone HCL 50 MG TABLET PO (22:45)
[2021-11-05] MEDS: Omeprazole 20 MG CAPSULE.DR PO (05:47)
[2021-11-05 06:26] LABS: Glucose, Whole Blood 128 mg/dL (60-115)
[2021-11-05] MEDS: buPROPion HCL 100 MG TABLET PO (07:59)
[2021-11-05] MEDS: Cholecalciferol (Vitamin D3) 10 MCG TABLET PO (07:59)
[2021-11-05] MEDS: Cyanocobalamin (Vitamin B-12) 1,000 MCG TABLET 1000 MCG PO (07:59)
[2021-11-05] MEDS: dexAMETHasone 4 MG TABLET 8 MG PO (07:59)
[2021-11-05] MEDS: Losartan Potassium 25 MG TABLET PO (07:59)
[2021-11-05] MEDS: cloNIDine HCL 0.1 MG TABLET PO ×3 (07:59→20:20)
[2021-11-05] MEDS: metFORMIN HCl 1,000 MG TABLET 1000 MG PO ×2 (07:59→20:21)
[2021-11-05] MEDS: Ascorbic Acid 500 MG TABLET 1000 MG PO (07:59)
[2021-11-05] MEDS: Multivitamin TABLET 1 TAB PO (07:59)
[2021-11-05] MEDS: cloZAPine 25 MG TABLET 150 MG PO ×2 (08:00→20:16)
[2021-11-05] MEDS: Ferrous Sulfate 324 MG TABLET.DR PO (08:00)
[2021-11-05 08:07] VITALS: BP 111/71; PULSE 115; RESP 15; TEMP 36.4; O2SAT 98
[2021-11-05 08:13] LABS: MANUAL DIFF FLAG NO
[2021-11-05 08:16] LABS: Basophils Percent Auto 0.8 % (0-2); Eosinophils Percent Auto 0.4 % (0-4); Hematocrit 36.9 % (37.0-47.0); Hemoglobin 12.2 g/dl (12.0-16.0); Imm Gran Abs Auto 0.04 X10*3/uL (0.00-0.03); Imm Gran Pct Auto 0.8 % (0.0-0.4); Lymphocytes Absolute Auto 1.4 X10*3/uL (1.2-4.9); Lymphocytes Percent Auto 27.1 % (20-40); Mean Corpuscular HGB Conc 33.1 g/dl (31.0-35.0); Mean Corpuscular Volume 93.7 fL (80.0-98.0); Mean Platelet Volume 10.3 fL (9.4-12.3); Monocytes Absolute Auto 0.3 X10*3/uL (0.1-1.2); Monocytes Percent Auto 5.1 % (2-11); Neutrophils Absolute Auto 3.3 x10*3/uL (2.0-8.3); Neutrophils Percent Auto 65.8 % (45-73); Platelet Count 340 X10*3/uL (160-400); Red Blood Count 3.94 X10*6/uL (4.20-5.50); White Blood Count 5.1 X10*3/uL (4.8-10.8)
[2021-11-05 08:32] LABS: Alanine Aminotransferase 66 U/L (0-31); Albumin Level 4.3 g/dL (3.5-5.0); Alkaline Phosphatase 96 U/L (39-117); Anion Gap 15 (12-20); Aspartate Amino Transferase 33 U/L (5-31); Bilirubin Total 0.6 mg/dL (0.0-1.0); Blood Urea Nitrogen 11 mg/dL (9-16); Calcium 9.7 mg/dL (8.4-10.2); Carbon Dioxide 21 mmol/L (22-29); Chloride 109 mmol/L (96-108); Creatinine Clr Calc Pharmacy 90.3; Estimated Glomerular Filt Rate > 60; Glucose Random 158 mg/dL (60-115); Potassium 4.1 mmol/L (3.3-5.1); Sodium 141 mmol/L (135-145); Total Protein 6.7 g/dL (6.5-8.0)
[2021-11-05] MEDS: Enoxaparin Sodium 40 MG/0.4 ML SYRINGE SUBCUT (11:17)
[2021-11-05 14:07] VITALS: BP 126/81; PULSE 127; RESP 16
--- NOTE | 2021-11-05 14:51 | P.PNPSI_ITS ---
Subjective Subjective Date of Service: 11/05/21 Reason For Visit: Depression paranoia Subjective Notes: [employer] Proxy: Yes Guardianship: No Medical Problems Affecting Mental Status: Yes (chemotherapy phase II in process) Interim History: Sabra reports feeling improved. She presents with a decrease in psychomotor retardation, decrease in paucity, decrease in thought blocking. She continues to decline an increase in Latuda, stating she is wanting to see how far current dose will help her. Discussed lorazepam use and effects, reviewed that she has no intention of harm to self or others and reviewed issues with her new room- mate, lack of sleep and Trazodone not being helpful. Plans chemotherapy tomorrow. Took notes regarding our meeting. Aware the rationale for labs/EKG tod ay to prepare for chemotherapy and for Clozaril registry. Overall she reports she believes she is improving. Medication Compliance: Yes Side effects from medications: No Attending Groups: Yes Review of Systems Acute medical concerns: Yes Chemotherapy, phase II Medical Review of Systems: unchanged Review of Systems Psychiatric: Reports abnormal sleep pattern (pt reports due to new room-mate), Reports anxiety, Reports anhedonia, Reports paranoia and Reports suicidal ideation (denies) Mental Status Exam Mental Status Exam Patient Appearance: Appropriate Patient Orientation: Person, Place, Time and Situation Level of Consciousness: Alert Patient Behavior: Guarded, Talkative and Good Eye Contact Mood Description: Flat Affect Description: Flat Patient Cognition Impaired: No Ability to Follow Directions: Good Speech Pattern: Perseverating, Spontaneous Speech, Soft-Spoken and Long Pauses (present, but decreasing) Memory Description: Episodic Impaired Hallucinations: None Delusions: Paranoid Ideation Perceptual Disturbances: Depersonalization and Derealization Thought Process: Distracted and Rumination Thought Content: positive for Roosevelt, positive for Perseveration, positive for Thought Blocking (present but decreased), positive for Suicidal Ideation (denies) and positive for Homicidal Ideation (denies) Depressive Symptoms: Diff. Making Decisions, Difficulty Sleeping, Feelings of Guilt, Thoughts of /Suicide (denies), Low Self Esteem and Difficulty Concentrating (reports mild improvement) Abnormal Motor Activity Signs and Symptoms: Psychomotor Retardation (improving) Judgement: Fair Diagnostics Vital Signs (24Hr): Vital Signs - 24 hr 11/04/21 20:30 11/05/21 08:07 11/05/21 14:07 Temperature 96.5 F L 97.5 F Pulse Rate 103 H 115 H 127 H Respiratory Rate 15 16 Blood Pressure 126/79 111/71 126/81 Pulse Oximetry 98 BMI result Body Mass Index 31.4 Labs Results: 11/05/21 07:53 11/05/21 07:53 Labs: Laboratory Results - last 48 hr 11/04/21 11/05/21 11/05/21 06:20 06:19 07:53 WBC RBC Hgb Hct MCV MCH MCHC RDW Plt Count MPV Immature Gran % (Auto) Neut % (Auto) Lymph % (Auto) Ector % (Auto) Eos % (Auto) Baso % (Auto) Lymph # (Auto) Ector # (Auto) Eos # (Auto) Baso # (Auto) Abs Immat Gran (auto) Absolute Neuts (auto) Cancelled Absolute Nucleated RBC Nucleated RBC % (auto) Sodium Potassium Chloride Carbon Dioxide Anion Gap BUN Creatinine Estim Creat Clear Calc Estimated GFR POC Glucose 113 128 H Random Glucose Calcium Total Bilirubin AST ALT Alkaline Phosphatase Total Protein Albumin 11/05/21 11/05/21 07:53 07:53 WBC 5.1 RBC 3.94 L Hgb 12.2 Hct 36.9 L MCV 93.7 MCH 31.0 MCHC 33.1 RDW 17.0 H Plt Count 340 MPV 10.3 Immature Gran % (Auto) 0.8 H Neut % (Auto) 65.8 Lymph % (Auto) 27.1 Ector % (Auto) 5.1 Eos % (Auto) 0.4 Baso % (Auto) 0.8 Lymph # (Auto) 1.4 Ector # (Auto) 0.3 Eos # (Auto) 0.0 Baso # (Auto) 0.0 Abs Immat Gran (auto) 0.04 H Absolute Neuts (auto) 3.3 Absolute Nucleated RBC 0.000 Nucleated RBC % (auto) 0.0 Sodium 141 Potassium 4.1 Chloride 109 H Carbon Dioxide 21 L Anion Gap 15 BUN 11 Creatinine 0.72 Estim Creat Clear Calc 90.3 Estimated GFR > 60 POC Glucose Random Glucose 158 H Calcium 9.7 Total Bilirubin 0.6 AST 33 H ALT 66 H Alkaline Phosphatase 96 Total Protein 6.7 Albumin 4.3 Medications Medications Current Medications Acetaminophen (Acetaminophen 325 Mg Tablet) 650 mg PO Q6H PRN PRN Reason: Headache/Pain Mild Scale (1-3) Al Hydroxide/Mg Hydroxide (Magnesium Hydrox/Alum Hydrox 30 Ml Oral.Susp) 30 ml PO Q6H PRN PRN Reason: Heartburn/Nausea Last Admin: 10/02/21 14:41 Dose: 30 ml Documented by: Ascorbic Acid (Ascorbic Acid 500 Mg Tablet) 1,000 mg PO DAILY [facility] Last Admin: 11/05/21 07:59 Dose: 1,000 mg Documented by: Atorvastatin Calcium (Atorvastatin Calcium 10 Mg Tablet) 5 mg PO BEDTIME [facility] Last Admin: 11/04/21 20:51 Dose: 5 mg Documented by: Bupropion HCl (Bupropion Hcl 100 Mg Tablet) 100 mg PO DAILY [facility] Last Admin: 11/05/21 07:59 Dose: 100 mg Documented by: Clonidine HCl (Clonidine Hcl 0.1 Mg Tablet) 0.1 mg PO TID [facility]; Protocol Last Admin: 11/05/21 14:05 Dose: 0.1 mg Documented by: Clozapine (Clozapine 25 Mg Tablet) 150 mg PO BID [facility] Last Admin: 11/05/21 08:00 Dose: 150 mg Documented by: Cyanocobalamin (Cyanocobalamin (Vitamin B-12) 1,000 Mcg Tablet) 1,000 mcg PO DAILY [facility] Last Admin: 11/05/21 07:59 Dose: 1,000 mcg Documented by: Dexamethasone (Dexamethasone 4 Mg Tablet) 8 mg PO Tu@0800 [facility] Last Admin: 11/05/21 07:59 Dose: 8 mg Documented by: Docusate Sodium (Docusate Sodium 100 Mg Capsule) 100 mg PO BEDTIME [facility] Last Admin: 11/04/21 20:52 Dose: 100 mg Documented by: Enoxaparin Sodium (Enoxaparin Sodium 40 Mg/0.4 Ml Syringe) 40 mg SUBCUT Q24H SC H Last Admin: 11/05/21 11:17 Dose: 40 mg Documented by: Ferrous Sulfate (Ferrous Sulfate 324 Mg Tablet.) 324 mg PO DAILY [facility] Last Admin: 11/05/21 08:00 Dose: 324 mg Documented by: Hydroxyzine HCl (Hydroxyzine Hcl 25 Mg Tablet) 25 mg PO BEDTIME PRN PRN Reason: Anxiety Last Admin: 10/31/21 02:30 Dose: 25 mg Documented by: Lorazepam (Lorazepam 1 Mg Tablet) 1 mg PO TID PRN PRN Reason: Anxiety Losartan Potassium (Losartan Potassium 25 Mg Tablet) 25 mg PO DAILY [facility]; Protocol Last Admin: 11/05/21 07:59 Dose: 25 mg Documented by: Lurasidone HCl (Lurasidone Hcl 20 Mg Tablet) 20 mg PO 1800 [facility] Last Admin: 11/04/21 19:47 Dose: 20 mg Documented by: Magnesium Hydroxide (Milk Of Magnesia 30 Ml Oral.Susp) 30 ml PO DAILY PRN PRN Reason: Constipation Metformin HCl (Metformin Hcl 1,000 Mg Tablet) 1,000 mg PO BID [facility] Last Admin: 11/05/21 07:59 Dose: 1,000 mg Documented by: Multivitamins/Vitamin C (Multivitamin Tablet) 1 tab PO DAILY [facility] Last Admin: 11/05/21 07:59 Dose: 1 tab Documented by: Neomycin/Polymyxin/Bacitracin (Neomy/Polymyx/Bacit/Ointment 14 Gm Tube) 1 gm TOPICAL BID [facility]; Protocol Last Admin: 11/05/21 08:00 Dose: Not Given Documented by: Non-Formulary Medication (Cinnamon) 1,000 mg PO DAILY [facility] Last Admin: 11/05/21 07:59 Dose: 1,000 mg Documented by: Patient Own Medication ( Empagliflozin 10 Mg) 1 each PO DAILY [facility] Last Admin: 11/05/21 07:59 Dose: 1 each Documented by: Omeprazole (Omeprazole 20 Mg Capsule.Dr) 20 mg PO DAILY@0630 [facility] Last Admin: 11/05/21 05:47 Dose: 20 mg Documented by: Ondansetron HCl (Ondansetron Odt 8 Mg Tab.Rapdis) 8 mg TRANSLINGU Q8H PRN PRN Reason: nausea Prazosin HCl (Prazosin Hcl 1 Mg Capsule) 1 mg PO BEDTIME PRN; Protocol PRN Reason: nightmares Last Admin: 10/30/21 21:53 Dose: 1 mg Documented by: Trazodone HCl (Trazodone Hcl 50 Mg Tablet) 50 mg PO BEDTIME PRN PRN Reason: Insomnia Last Admin: 11/04/21 22:45 Dose: 50 mg Documented by: Vitamin D (Cholecalciferol (Vitamin D3) 10 Mcg Tablet) 10 mcg PO DAILY [facility] Last Admin: 11/05/21 07:59 Dose: 10 mcg Documented by: Allergies Allergies Allergy/AdvReac Type Severity Reaction Status Date / Time lisinopril [LISINOPRIL] Allergy Unknown SWOLLEN Verified 09/17/21 08:42 LIPS, angioedema, swelling Assessment & Plan Assessment & Plan (1) Schizoaffective disorder: Status: Acute Code(s): F25.9 - Schizoaffective disorder, unspecified (2) Invasive ductal carcinoma of right breast: Status: Acute Code(s): C50.911 - Malignant neoplasm of unspecified site of right female breast (3) Hypertension: Qualifiers: Hypertension type: essential hypertension Qualified Code(s): I10 - Essential (primary) hypertension Status: Acute Code(s): I10 - Essential (primary) hypertension (4) Hypercholesterolemia: Status: Acute Code(s): E78.00 - Pure hypercholesterolemia, unspecified (5) Type 2 diabetes mellitus with hyperglycemia: Qualifiers: Diabetes mellitus custodial insulin use: without watermaster use Qualified Code(s): E11.65 - Type 2 diabetes mellitus with hyperglycemia Status: Acute Code(s): E11.65 - Type 2 diabetes mellitus with hyperglycemia Assessment and Plan: Continue metformin Jardiance monitor point of care (6) GERD (gastroesophageal reflux disease): Qualifiers: Esophagitis presence: without esophagitis Qualified Code(s): K21.9 - Gastro-esophageal reflux disease without esophagitis Status: Acute Code(s): K21.9 - Gastro-esophageal reflux disease without esophagitis Plan 50 yo female, hx of schizoaffective disorder, depressed with R breast cancer, having just completed first cycle of chemotherapy. Pt's partner and sister report to crisis team that pt has had a significant mental status change with psychotic symptoms, paranoia, perceptual alterations, poor sleep and significant thought blocking. Pt denies SI, HI. Today she is a very poor historian-almost pre-catatonic at times, considering signing a three day notice of intent. Team report by history she may not be comfortable in this facility. Assessment plan for 09/21/2021 Continue current medical treatment elevated white blood count noted over the past month question related to cancer treatment. No evidence of infection Patient depressed withdrawn preoccupied patient with recent treatment for ductal carcinoma stress of this might certainly lead to depressive almost catatonic episode 09/22/21 Pt with thought blocking improved from yeterday have restarted wellbutin hosp did not have sr cont clozapine evaluate baseline denies self harm oob more 09/23/21 Continue current plan of care. Collateral contacts with OP team, oncology. 09/24/21 Increase Abilify to 30 mg daily Pt currently refusing Lorazepam TDN expires 09/25/21-will file for civil commitment if pt persists in wanting discharge 09/25/21 Civil commitment filing completed Continue current regime. 09/26/21 Continue current regime 09/27/32 Decrease Abilify to 20 mg daily Risperdal 1.5 mg HS 09/28/21 Continue plan as above 09/29/21 No changes 09/30/21 Court 10/01/21 Chemotherapy 10/01/21 Increase Risperdal to 2.5 mg HS Decrease Abilify to 10 mg daily 10/02/21 Tolerating change back to Abilify from Risperdal Appetite is improved. Calmer, more visable, however continues with paranoia Jardiance ordered from [facility] 10/03/21 Increase Abilify to 30 mg daily Will pursue validation of pt's HCP for continued chemotherapy Tentative chemotherapy 10/09. 10/04/21 Continue current regime 10/05 no changes to current regimen 10/06 no changes to current regimen 10/07/21 No positive effect from increase in Abilify Increase Clozaril to 100 mg bid, an increase of 50 mg daily, divided. Chemotherapy 10/09/21, Labs 10/08/21. 10/08/21 Tolerating Clozaril increase thus far Dexamethasone 4 mg hs and 4 mg a.m. pre chemo per Dr. Mora Support, encourage 10/09/21 Continue current plan of care 10/10/21 Continue current plan of care 10/11/21 Continue current plan. Will re-eval for Clozaril increase next week. 10/12/2021: Continue current regimen and plans. No changes were made today 10/13/2021: Continue current plans and regimen. 10/14/21: Increase Clozaril to 125 mg bid EKG, CBCD, CMP 10/15 prior to chemotherapy 10/15/21: Continue current plan of care 10/16/21: Continue current plan. Tolerating Clozaril increase 10/17/21: Continue current regime. 10/18/21: Increase Clozaril to 150 mg bid Decrease Abilify to 20 mg daily ECT Consult 10/19/21: continue meds unchanged 10/20/21: pt continue to present as paranoid, withdrawn 10/21/21: Continue current regime. Labs/EKG 10/22. Some improvement today. 10/22/21: Labs/EKG WNL Meeting 10/24 with health care proxy's to discuss clozaril discontinuation ECT Consult 10/24/21: Continue current plan. 10/25/21: Continue current plan. 10/26: ECT may be indicated. Change Ativan to standing dose. 10/27 Increase Ativan to 1 mg TID and watch for sedation 10/28/21: CBCD, CMP, EKG 10/29/21 in preparation for chemotherapy Await Clozapine level results. 10/29/21: ECT consult 10/30 Chemotherapy 10/30 Await Clozapine level results. Tentative plan to taper Abilify, titrate Latuda. Family/HCP in agreement. Pt agrees as well. 10/30/21: Decrease Abilify to 10 mg daily to prepare to begin Latuda 10/31/21: Continue current plan. 11/01/21: Discontinue Abilify Latuda 20 mg 1800 11/02/21: Continue current treatment plan 11/03/21: Continue current treatment plan 11/04/21: Tolerating Latuda. Pt asks not to titrate yet. Some improvement noted. 11/05/21: Chemotherapy 11/06. Ready to titrate Latuda-family will discuss with pt. Thus far, a positive result, without adverse effect. EKG reading pending Sister will not be taking pt to chemotherapy on 11/06 as her son has tested positive for COVID this afternoon. Partner Kailey will accompany pt. along with team. I spent minutes with the patient and/or on the patient floor today, greater than?50% of which was spent counseling/coordinating care. Patient educated on: medication risk/benefits and therapeutic strategies Informed Consent: understands and further education needed Reason for contiued inpatient stay Substantial Risk for: harm to self, inability to function, rapid decompensation and med/psych decompensation
[2021-11-05] MEDS: Lurasidone HCl 20 MG TABLET PO (17:48)
[2021-11-05] MEDS: Atorvastatin Calcium 10 MG TABLET 5 MG PO (20:17)
[2021-11-05] MEDS: Docusate Sodium 100 MG CAPSULE PO (20:21)
[2021-11-05 20:35] VITALS: BP 140/90; PULSE 73
[2021-11-05] MEDS: traZODone HCL 50 MG TABLET PO (22:49)
[2021-11-06] MEDS: Omeprazole 20 MG CAPSULE.DR PO (06:16)
[2021-11-06 06:22] LABS: Glucose, Whole Blood 115 mg/dL (60-115)
[2021-11-06] MEDS: Losartan Potassium 25 MG TABLET PO (07:54)
[2021-11-06] MEDS: Ferrous Sulfate 324 MG TABLET.DR PO (07:54)
[2021-11-06] MEDS: Multivitamin TABLET 1 TAB PO (07:54)
[2021-11-06] MEDS: Cyanocobalamin (Vitamin B-12) 1,000 MCG TABLET 1000 MCG PO (07:54)
[2021-11-06] MEDS: Ascorbic Acid 500 MG TABLET 1000 MG PO (07:54)
[2021-11-06] MEDS: cloZAPine 25 MG TABLET 150 MG PO (07:54)
[2021-11-06] MEDS: cloNIDine HCL 0.1 MG TABLET PO ×3 (07:54→20:49)
[2021-11-06] MEDS: buPROPion HCL 100 MG TABLET PO (07:55)
[2021-11-06] MEDS: metFORMIN HCl 1,000 MG TABLET 1000 MG PO ×2 (07:55→20:48)
[2021-11-06] MEDS: Cholecalciferol (Vitamin D3) 10 MCG TABLET PO (07:55)
[2021-11-06 07:59] VITALS: BP 118/88; PULSE 109; RESP 16; TEMP 36.4; O2SAT 98
[2021-11-06] MEDS: Enoxaparin Sodium 40 MG/0.4 ML SYRINGE SUBCUT (12:12)
[2021-11-06] MEDS: polyethylene glycoL 3350 17 GM POWD.PACK PO (12:24)
[2021-11-06 14:06] VITALS: BP 115/77; PULSE 123; RESP 16
--- NOTE | 2021-11-06 17:16 | P.PNPSI_ITS ---
Subjective Subjective Date of Service: 11/06/21 Reason For Visit: Depression paranoia Subjective Notes: Conditional Voluntary Healthcare Proxy: No Guardianship: No Medical Problems Affecting Mental Status: No Interim History: Sabra continues with improvement in mental status and communication. She agreed to increase in Latuda to 40 mg today. She reports constipation-Will increase Colace and add Miralax Attended chemotherapy today with partner and [facility] staff Reports the day was positive Presents with some decrease in sx. Medication Compliance: Yes Side effects from medications: No Attending Groups: Yes Review of Systems Acute medical concerns: No Medical Review of Systems: unchanged Review of Systems Psychiatric: Reports anxiety, Reports depression, Reports difficulty concentrat ing, Reports paranoia, Reports homicidal ideation (denies) and Reports suicidal ideation (denies) Mental Status Exam Mental Status Exam Patient Appearance: Appropriate Patient Orientation: Person, Place, Time and Situation Level of Consciousness: Alert Patient Behavior: Guarded, Talkative and Good Eye Contact Mood Description: Flat Affect Description: Flat Patient Cognition Impaired: No Ability to Follow Directions: Good Speech Pattern: Perseverating, Spontaneous Speech, Soft-Spoken and Long Pauses (present, but decreasing) Memory Description: Episodic Impaired Hallucinations: None Delusions: Paranoid Ideation Perceptual Disturbances: Depersonalization and Derealization Thought Process: Distracted and Rumination Thought Content: positive for [place], positive for Perseveration, positive for Thought Blocking (present but decreased), positive for Suicidal Ideation (denies) and positive for Homicidal Ideation (denies) Depressive Symptoms: Diff. Making Decisions, Difficulty Sleeping, Feelings of Guilt, Thoughts of /Suicide (denies), Low Self Esteem and Difficulty Concentrating (reports mild improvement) Abnormal Motor Activity Signs and Symptoms: Psychomotor Retardation (improving) Judgement: Fair Diagnostics Vital Signs (24Hr): Vital Signs - 24 hr 11/05/21 20:35 11/06/21 07:59 11/06/21 14:06 Temperature 97.6 F Pulse Rate 73 109 H 123 H Respiratory Rate 16 16 Blood Pressure 140/90 H 118/88 115/77 Pulse Oximetry 98 BMI result Body Mass Index 31.4 Labs Results: 11/05/21 07:53 11/05/21 07:53 Labs: Laboratory Results - last 48 hr 11/05/21 11/05/21 11/05/21 06:19 07:53 07:53 WBC 5.1 RBC 3.94 L Hgb 12.2 Hct 36.9 L MCV 93.7 MCH 31.0 MCHC 33.1 RDW 17.0 H Plt Count 340 MPV 10.3 Immature Gran % (Auto) 0.8 H Neut % (Auto) 65.8 Lymph % (Auto) 27.1 [place] % (Auto) 5.1 Eos % (Auto) 0.4 Baso % (Auto) 0.8 Lymph # (Auto) 1.4 [place] # (Auto) 0.3 Eos # (Auto) 0.0 Baso # (Auto) 0.0 Abs Immat Gran (auto) 0.04 H Absolute Neuts (auto) Cancelled 3.3 Absolute Nucleated RBC 0.000 Nucleated RBC % (auto) 0.0 Sodium Potassium Chloride Carbon Dioxide Anion Gap BUN Creatinine Estim Creat Clear Calc Estimated GFR POC Glucose 128 H Random Glucose Calcium Total Bilirubin AST ALT Alkaline Phosphatase Total Protein Albumin 11/05/21 11/06/21 07:53 06:15 WBC RBC Hgb Hct MCV MCH MCHC RDW Plt Count MPV Immature Gran % (Auto) Neut % (Auto) Lymph % (Auto) [place] % (Auto) Eos % (Auto) Baso % (Auto) Lymph # (Auto) [place] # (Auto) Eos # (Auto) Baso # (Auto) Abs Immat Gran (auto) Absolute Neuts (auto) Absolute Nucleated RBC Nucleated RBC % (auto) Sodium 141 Potassium 4.1 Chloride 109 H Carbon Dioxide 21 L Anion Gap 15 BUN 11 Creatinine 0.72 Estim Creat Clear Calc 90.3 Estimated GFR > 60 POC Glucose 115 Random Glucose 158 H Calcium 9.7 Total Bilirubin 0.6 AST 33 H ALT 66 H Alkaline Phosphatase 96 Total Protein 6.7 Albumin 4.3 Medications Medications Current Medications Acetaminophen (Acetaminophen 325 Mg Tablet) 650 mg PO Q6H PRN PRN Reason: Headache/Pain Mild Scale (1-3) Al Hydroxide/Mg Hydroxide (Magnesium Hydrox/Alum Hydrox 30 Ml Oral.Susp) 30 ml PO Q6H PRN PRN Reason: Heartburn/Nausea Last Admin: 10/02/21 14:41 Dose: 30 ml Documented by: Ascorbic Acid (Ascorbic Acid 500 Mg Tablet) 1,000 mg PO DAILY [facility] Last Admin: 11/06/21 07:54 Dose: 1,000 mg Documented by: Atorvastatin Calcium (Atorvastatin Calcium 10 Mg Tablet) 5 mg PO BEDTIME MYRTLE Last Admin: 11/05/21 20:17 Dose: 5 mg Documented by: Bupropion HCl (Bupropion Hcl 100 Mg Tablet) 100 mg PO DAILY [facility] Last Admin: 11/06/21 07:55 Dose: 100 mg Documented by: Clonidine HCl (Clonidine Hcl 0.1 Mg Tablet) 0.1 mg PO TID [facility]; Protocol Last Admin: 11/06/21 14:04 Dose: 0.1 mg Documented by: Clozapine (Clozapine 100 Mg Tablet) 150 mg PO BID [facility] Last Admin: 11/06/21 08:54 Dose: Not Given Documented by: Cyanocobalamin (Cyanocobalamin (Vitamin B-12) 1,000 Mcg Tablet) 1,000 mcg PO DAILY [facility] Last Admin: 11/06/21 07:54 Dose: 1,000 mcg Documented by: Docusate Sodium (Docusate Sodium 100 Mg Capsule) 100 mg PO BEDTIME [facility] Last Admin: 11/05/21 20:21 Dose: 100 mg Documented by: Enoxaparin Sodium (Enoxaparin Sodium 40 Mg/0.4 Ml Syringe) 40 mg SUBCUT Q24H [facility] Last Admin: 11/06/21 12:12 Dose: 40 mg Documented by: Ferrous Sulfate (Ferrous Sulfate 324 Mg Tablet.) 324 mg PO DAILY [facility] Last Admin: 11/06/21 07:54 Dose: 324 mg Documented by: Hydroxyzine HCl (Hydroxyzine Hcl 25 Mg Tablet) 25 mg PO BEDTIME PRN PRN Reason: Anxiety Last Admin: 10/31/21 02:30 Dose: 25 mg Documented by: Lorazepam (Lorazepam 1 Mg Tablet) 1 mg PO TID PRN PRN Reason: Anxiety Losartan Potassium (Losartan Potassium 25 Mg Tablet) 25 mg PO DAILY [facility]; Protocol Last Admin: 11/06/21 07:54 Dose: 25 mg Documented by: Lurasidone HCl (Lurasidone Hcl 40 Mg Tablet) 40 mg PO 1800 [facility] Magnesium Hydroxide (Milk Of Magnesia 30 Ml Oral.Susp) 30 ml PO DAILY PRN PRN Reason: Constipation Metformin HCl (Metformin Hcl 1,000 Mg Tablet) 1,000 mg PO BID [facility] Last Admin: 11/06/21 07:55 Dose: 1,000 mg Documented by: Multivitamins/Vitamin C (Multivitamin Tablet) 1 tab PO DAILY [facility] Last Admin: 11/06/21 07:54 Dose: 1 tab Documented by: Neomycin/Polymyxin/Bacitracin (Neomy/Polymyx/Bacit/Ointment 14 Gm Tube) 1 gm TOPICAL BID [facility]; Protocol Last Admin: 11/06/21 07:59 Dose: Not Given Documented by: Non-Formulary Medication (Cinnamon) 1,000 mg PO DAILY [facility] Last Admin: 11/06/21 07:53 Dose: 1,000 mg Documented by: Patient Own Medication ( Empagliflozin 10 Mg) 1 each PO DAILY [facility] Last Admin: 11/06/21 07:54 Dose: 1 each Documented by: Omeprazole (Omeprazole 20 Mg Capsule.Dr) 20 mg PO DAILY@0630 [facility] Last Admin: 11/06/21 06:16 Dose: 20 mg Documented by: Ondansetron HCl (Ondansetron Odt 8 Mg Tab.Rapdis) 8 mg TRANSLINGU Q8H PRN PRN Reason: nausea Polyethylene Glycol (Polyethylene Glycol 3350 17 Gm Powd.Pack) 17 gm PO DAILY PRN PRN Reason: Constipation Last Admin: 11/06/21 12:24 Dose: 17 gm Documented by: Prazosin HCl (Prazosin Hcl 1 Mg Capsule) 1 mg PO BEDTIME PRN; Protocol PRN Reason: nightmares Last Admin: 10/30/21 21:53 Dose: 1 mg Documented by: Trazodone HCl (Trazodone Hcl 50 Mg Tablet) 50 mg PO BEDTIME PRN PRN Reason: Insomnia Last Admin: 11/05/21 22:49 Dose: 50 mg Documented by: Vitamin D (Cholecalciferol (Vitamin D3) 10 Mcg Tablet) 10 mcg PO DAILY [facility] Last Admin: 11/06/21 07:55 Dose: 10 mcg Documented by: Allergies Allergies Allergy/AdvReac Type Severity Reaction Status Date / Time lisinopril [LISINOPRIL] Allergy Unknown SWOLLEN Verified 09/17/21 08:42 LIPS, angioedema, swelling Assessment & Plan Assessment & Plan (1) Schizoaffective disorder: Status: Acute Code(s): F25.9 - Schizoaffective disorder, unspecified (2) Invasive ductal carcinoma of right breast: Status: Acute Code(s): C50.911 - Malignant neoplasm of unspecified site of right female breast (3) Hypertension: Qualifiers: Hypertension type: essential hypertension Qualified Code(s): I10 - Essential (primary) hypertension Status: Acute Code(s): I10 - Essential (primary) hypertension (4) Hypercholesterolemia: Status: Acute Code(s): E78.00 - Pure hypercholesterolemia, unspecified (5) Type 2 diabetes mellitus with hyperglycemia: Qualifiers: Diabetes mellitus technician terminal and repeater insulin use: without mcfp use Qual ified Code(s): E11.65 - Type 2 diabetes mellitus with hyperglycemia Status: Acute Code(s): E11.65 - Type 2 diabetes mellitus with hyperglycemia Assessment and Plan: Continue metformin Jardiance monitor point of care (6) GERD (gastroesophageal reflux disease): Qualifiers: Esophagitis presence: without esophagitis Qualified Code(s): K21.9 - Gastro-esophageal reflux disease without esophagitis Status: Acute Code(s): K21.9 - Gastro-esophageal reflux disease without esophagitis Plan 50 yo female, hx of schizoaffective disorder, depressed with R breast cancer, having just completed first cycle of chemotherapy. Pt's partner and sister report to crisis team that pt has had a significant mental status change with psychotic symptoms, paranoia, perceptual alterations, poor sleep and significant thought blocking. Pt denies SI, HI. Today she is a very poor historian-almost pre-catatonic at times, considering signing a three day notice of intent. Team report by history she may not be comfortable in this facility. Assessment plan for 09/21/2021 Continue current medical treatment elevated white blood count noted over the past month question related to cancer treatment. No evidence of infection Patient depressed withdrawn preoccupied patient with recent treatment for ductal carcinoma stress of this might certainly lead to depressive almost catatonic episode 09/22/21 Pt with thought blocking improved from yeterday have restarted wellbutin hosp did not have sr cont clozapine evaluate baseline denies self harm oob more 09/23/21 Continue current plan of care. Collateral contacts with OP team, oncology. 09/24/21 Increase Abilify to 30 mg daily Pt currently refusing Lorazepam TDN expires 09/25/21-will file for civil commitment if pt persists in wanting discharge 09/25/21 Civil commitment filing completed Continue current regime. 09/26/21 Continue current regime 09/27/32 Decrease Abilify to 20 mg daily Risperdal 1.5 mg HS 09/28/21 Continue plan as above 09/29/21 No changes 09/30/21 Court 10/01/21 Chemotherapy 10/01/21 Increase Risperdal to 2.5 mg HS Decrease Abilify to 10 mg daily 10/02/21 Tolerating change back to Abilify from Risperdal Appetite is improved. Calmer, more visable, however continues with paranoia Jardiance ordered from [place] [facility] 10/03/21 Increase Abilify to 30 mg daily Will pursue validation of pt's HCP for continued chemotherapy Tentative chemotherapy 10/09. 10/04/21 Continue current regime 10/05 no changes to current regimen 10/06 no changes to current regimen 10/07/21 No positive effect from increase in Abilify Increase Clozaril to 100 mg bid, an increase of 50 mg daily, divided. Chemotherapy 10/09/21, Labs 10/08/21. 10/08/21 Tolerating Clozaril increase thus far Dexamethasone 4 mg hs and 4 mg a.m. pre chemo per Dr. Mora Support, encourage 10/09/21 Continue current plan of care 10/10/21 Continue current plan of care 10/11/21 Continue current plan. Will re-eval for Clozaril increase next week. 10/12/2021: Continue current regimen and plans. No changes were made today 10/13/2021: Continue current plans and regimen. 10/14/21: Increase Clozaril to 125 mg bid EKG, CBCD, CMP 10/15 prior to chemotherapy 10/15/21: Continue current plan of care 10/16/21: Continue current plan. Tolerating Clozaril increase 10/17/21: Continue current regime. 10/18/21: Increase Clozaril to 150 mg bid Decrease Abilify to 20 mg daily ECT Consult 10/19/21: continue meds unchanged 10/20/21: pt continue to present as paranoid, withdrawn 10/21/21: Continue current regime. Labs/EKG 10/22. Some improvement today. 10/22/21: Labs/EKG WNL Meeting 10/24 with health care proxy's to discuss clozaril discontinuation ECT Consult 10/24/21: Continue current plan. 10/25/21: Continue current plan. 10/26: ECT may be indicated. Change Ativan to standing dose. 10/27 Increase Ativan to 1 mg TID and watch for sedation 10/28/21: CBCD, CMP, EKG 10/29/21 in preparation for chemotherapy Await Clozapine level results. 10/29/21: ECT consult 10/30 Chemotherapy 10/30 Await Clozapine level results. Tentative plan to taper Abilify, titrate Latuda. Family/HCP in agreement. Pt agrees as well. 10/30/21: Decrease Abilify to 10 mg daily to prepare to begin Latuda 10/31/21: Continue current plan. 11/01/21: Discontinue Abilify Latuda 20 mg 1800 11/02/21: Continue current treatment plan 11/03/21: Continue current treatment plan 11/04/21: Tolerating Latuda. Pt asks not to titrate yet. Some improvement noted. 11/05/21: Chemotherapy 11/06. Ready to titrate Latuda-family will discuss with pt. Thus far, a positive result, without adverse effect. EKG reading pending Sister will not be taking pt to chemotherapy on 11/06 as her son has tested positive for COVID this afternoon. Partner Kailey will accompany pt. along with team. 11/06/21: Increase Latuda to 40 mg daily after evening meal. Increase Colace to 200 mg hs Miralax prn Per nursing report, pt will no longer need steroid dosing on Tuesdays before chemotherapy, but will receive dosing on Wednesdays in the chemotherapy dept. I spent minutes with the patient and/or on the patient floor today, greater than?50% of which was spent counseling/coordinating care. Patient educated on: medication risk/benefits and therapeutic strategies Informed Consent: further education needed Reason for contiued inpatient stay Substantial Risk for: harm to self, harm to others, inability to function, rapid decompensation and med/psych decompensation
[2021-11-06 18:00] VITALS: BP 125/88; PULSE 108; RESP 16; TEMP 36.4; O2SAT 97
[2021-11-06] MEDS: Lurasidone HCl 40 MG TABLET PO (19:17)
[2021-11-06] MEDS: Docusate Sodium 100 MG CAPSULE 200 MG PO (20:44)
[2021-11-06] MEDS: cloZAPine 100 MG TABLET 150 MG PO (20:45)
[2021-11-06] MEDS: Atorvastatin Calcium 10 MG TABLET 5 MG PO (20:47)
[2021-11-07] MEDS: Omeprazole 20 MG CAPSULE.DR PO (06:14)
[2021-11-07 06:21] LABS: Glucose, Whole Blood 88 mg/dL (60-115)
[2021-11-07 07:00] VITALS: BMI 30.5
[2021-11-07] MEDS: cloZAPine 100 MG TABLET 150 MG PO ×2 (08:48→21:19)
[2021-11-07] MEDS: metFORMIN HCl 1,000 MG TABLET 1000 MG PO ×2 (08:49→21:19)
[2021-11-07] MEDS: Ascorbic Acid 500 MG TABLET 1000 MG PO (08:49)
[2021-11-07] MEDS: Cyanocobalamin (Vitamin B-12) 1,000 MCG TABLET 1000 MCG PO (08:49)
[2021-11-07] MEDS: Losartan Potassium 25 MG TABLET PO (08:49)
[2021-11-07] MEDS: Ferrous Sulfate 324 MG TABLET.DR PO (08:49)
[2021-11-07] MEDS: Multivitamin TABLET 1 TAB PO (08:49)
[2021-11-07] MEDS: cloNIDine HCL 0.1 MG TABLET PO ×3 (08:49→21:22)
[2021-11-07] MEDS: Cholecalciferol (Vitamin D3) 10 MCG TABLET PO (08:49)
[2021-11-07] MEDS: buPROPion HCL 100 MG TABLET PO (08:49)
[2021-11-07 08:57] VITALS: BP 133/98; PULSE 98; RESP 16; TEMP 36.8; O2SAT 98
[2021-11-07] MEDS: Enoxaparin Sodium 40 MG/0.4 ML SYRINGE SUBCUT (10:33)
[2021-11-07 14:06] VITALS: BP 121/74; PULSE 119
--- NOTE | 2021-11-07 16:26 | P.PNPSI_ITS ---
Subjective Subjective Date of Service: 11/07/21 Reason For Visit: Depression paranoia Subjective Notes: [employer] Proxy: Yes Guardianship: No Medical Problems Affecting Mental Status: Yes (chemotherapy in process) Interim History: Tolerating increase in Latuda. More visable in milieu, attending groups. Thought blocking continues to be present with paucity. Reports a decrease in sleep as she is feeling guilt regarding thoughts to harm his sister. Denies these thoughts today. Asking what she needs to achieve to be considered for discharge. Medication Compliance: Yes Side effects from medications: No Attending Groups: Yes Review of Systems Acute medical concerns: Yes Chemotherapy Medical Review of Systems: unchanged Review of Systems Psychiatric: Reports anxiety, Reports depression, Reports difficulty concentrating, Reports paranoia, Reports homicidal ideation (denies) and Reports suicidal ideation (denies) Mental Status Exam Mental Status Exam Patient Appearance: Appropriate Patient Orientation: Person, Place, Time and Situation Level of Consciousness: Alert Patient Behavior: Guarded, Talkative and Good Eye Contact Mood Description: Flat Affect Description: Flat Patient Cognition Impaired: No Ability to Follow Directions: Good Speech Pattern: Perseverating, Spontaneous Speech, Soft-Spoken and Long Pauses (present, but decreasing) Memory Description: Episodic Impaired Hallucinations: None Delusions: Paranoid Ideation Perceptual Disturbances: Depersonalization and Derealization Thought Process: Distracted and Rumination Thought Content: positive for Powell, positive for Perseveration, positive for Thought Blocking (present but decreased), positive for Suicidal Ideation (denies) and positive for Homicidal Ideation (denies) Depressive Symptoms: Diff. Making Decisions, Difficulty Sleeping, Feelings of Guilt, Thoughts of /Suicide (denies), Low Self Esteem and Difficulty Concentrating (reports mild improvement) Abnormal Motor Activity Signs and Symptoms: Psychomotor Retardation (improving) Judgement: Fair Diagnostics Vital Signs (24Hr): Vital Signs - 24 hr 11/06/21 18:00 11/07/21 08:57 11/07/21 14:06 Temperature 97.6 F 98.2 F Pulse Rate 108 H 98 119 H Respiratory Rate 16 16 Blood Pressure 125/88 133/98 H 121/74 Pulse Oximetry 97 98 BMI result Body Mass Index 30.5 Labs Results: 11/05/21 07:53 11/05/21 07:53 Labs: Laboratory Results - last 48 hr 11/06/21 11/07/21 06:15 06:14 POC Glucose 115 88 Medications Medications Current Medications Acetaminophen (Acetaminophen 325 Mg Tablet) 650 mg PO Q6H PRN PRN Reason: Headache/Pain Mild Scale (1-3) Al Hydroxide/Mg Hydroxide (Magnesium Hydrox/Alum Hydrox 30 Ml Oral.Susp) 30 ml PO Q6H PRN PRN Reason: Heartburn/Nausea Last Admin: 10/02/21 14:41 Dose: 30 ml Documented by: Ascorbic Acid (Ascorbic Acid 500 Mg Tablet) 1,000 mg PO DAILY [facility] Last Admin: 11/07/21 08:49 Dose: 1,000 mg Documented by: Atorvastatin Calcium (Atorvastatin Calcium 10 Mg Tablet) 5 mg PO BEDTIME [facility] Last Admin: 11/06/21 20:47 Dose: 5 mg Documented by: Bupropion HCl (Bupropion Hcl 100 Mg Tablet) 100 mg PO DAILY [facility] Last Admin: 11/07/21 08:49 Dose: 100 mg Documented by: Clonidine HCl (Clonidine Hcl 0.1 Mg Tablet) 0.1 mg PO TID [facility]; Protocol Last Admin: 11/07/21 14:04 Dose: 0.1 mg Documented by: Clozapine (Clozapine 100 Mg Tablet) 150 mg PO BID [facility] Last Admin: 11/07/21 08:48 Dose: 150 mg Documented by: Cyanocobalamin (Cyanocobalamin (Vitamin B-12) 1,000 Mcg Tablet) 1,000 mcg PO DAILY [facility] Last Admin: 11/07/21 08:49 Dose: 1,000 mcg Documented by: Docusate Sodium (Docusate Sodium 100 Mg Capsule) 200 mg PO BEDTIME [facility] Last Admin: 11/06/21 20:44 Dose: 200 mg Documented by: Enoxaparin Sodium (Enoxaparin Sodium 40 Mg/0.4 Ml Syringe) 40 mg SUBCUT Q24H S Last Admin: 11/07/21 10:33 Dose: 40 mg Documented by: Ferrous Sulfate (Ferrous Sulfate 324 Mg Tablet.Dr) 324 mg PO DAILY [facility] Last Admin: 11/07/21 08:49 Dose: 324 mg Documented by: Hydroxyzine HCl (Hydroxyzine Hcl 25 Mg Tablet) 25 mg PO BEDTIME PRN PRN Reason: Anxiety Last Admin: 10/31/21 02:30 Dose: 25 mg Documented by: Lorazepam (Lorazepam 1 Mg Tablet) 1 mg PO TID PRN PRN Reason: Anxiety Losartan Potassium (Losartan Potassium 25 Mg Tablet) 25 mg PO DAILY [facility]; Protocol Last Admin: 11/07/21 08:49 Dose: 25 mg Documented by: Lurasidone HCl (Lurasidone Hcl 40 Mg Tablet) 40 mg PO 1800 [facility] Last Admin: 11/06/21 19:17 Dose: 40 mg Documented by: Magnesium Hydroxide (Milk Of Magnesia 30 Ml Oral.Susp) 30 ml PO DAILY PRN PRN Reason: Constipation Metformin HCl (Metformin Hcl 1,000 Mg Tablet) 1,000 mg PO BID [facility] Last Admin: 11/07/21 08:49 Dose: 1,000 mg Documented by: Multivitamins/Vitamin C (Multivitamin Tablet) 1 tab PO DAILY [facility] Last Admin: 11/07/21 08:49 Dose: 1 tab Documented by: Neomycin/Polymyxin/Bacitracin (Neomy/Polymyx/Bacit/Ointment 14 Gm Tube) 1 gm TOPICAL BID [facility]; Protocol Last Admin: 11/07/21 09:17 Dose: Not Given Documented by: Non-Formulary Medication (Cinnamon) 1,000 mg PO DAILY [facility] Last Admin: 11/07/21 08:48 Dose: 1,000 mg Documented by: Patient Own Medication ( Empagliflozin 10 Mg) 1 each PO DAILY [facility] Last Admin: 11/07/21 08:48 Dose: 1 each Documented by: Omeprazole (Omeprazole 20 Mg Capsule.) 20 mg PO DAILY@0630 [facility] Last Admin: 11/07/21 06:14 Dose: 20 mg Documented by: Ondansetron HCl (Ondansetron Odt 8 Mg Tab.Rapdis) 8 mg TRANSLINGU Q8H PRN PRN Reason: nausea Polyethylene Glycol (Polyethylene Glycol 3350 17 Gm Powd.Pack) 17 gm PO DAILY PRN PRN Reason: Constipation Last Admin: 11/06/21 12:24 Dose: 17 gm Documented by: Prazosin HCl (Prazosin Hcl 1 Mg Capsule) 1 mg PO BEDTIME PRN; Protocol PRN Reason: nightmares Last Admin: 10/30/21 21:53 Dose: 1 mg Documented by: Trazodone HCl (Trazodone Hcl 50 Mg Tablet) 50 mg PO BEDTIME PRN PRN Reason: Insomnia Last Admin: 11/05/21 22:49 Dose: 50 mg Documented by: Vitamin D (Cholecalciferol (Vitamin D3) 10 Mcg Tablet) 10 mcg PO DAILY [facility] Last Admin: 11/07/21 08:49 Dose: 10 mcg Documented by: Allergies Allergies Allergy/AdvReac Type Severity Reaction Status Date / Time lisinopril [LISINOPRIL] Allergy Unknown SWOLLEN Verified 09/17/21 08:42 LIPS, angioedema, swelling Assessment & Plan Assessment & Plan (1) Schizoaffective disorder: Status: Acute Code(s): F25.9 - Schizoaffective disorder, unspecified (2) Invasive ductal carcinoma of right breast: Status: Acute Code(s): C50.911 - Malignant neoplasm of unspecified site of right female breast (3) Hypertension: Qualifiers: Hypertension type: essential hypertension Qualified Code(s): I10 - Essential (primary) hypertension Status: Acute Code(s): I10 - Essential (primary) hypertension (4) Hypercholesterolemia: Status: Acute Code(s): E78.00 - Pure hypercholesterolemia, unspecified (5) Type 2 diabetes mellitus with hyperglycemia: Qualifiers: Diabetes mellitus snf insulin use: without snf use Qualified Code(s): E11.65 - Type 2 diabetes mellitus with hyperglycemia Status: Acute Code(s): E11.65 - Type 2 diabetes mellitus with hyperglycemia Assessment and Plan: Continue metformin Jardiance monitor point of care (6) GERD (gastroesophageal reflux disease): Qualifiers: Esophagitis presence: without esophagitis Qualified Code(s): K21.9 - Gastro-esophageal reflux disease without esophagitis Status: Acute Code(s): K21.9 - Gastro-esophageal reflux disease without esophagitis Plan 50 yo female, hx of schizoaffective disorder, depressed with R breast cancer, having just completed first cycle of chemotherapy. Pt's partner and sister report to crisis team that pt has had a significant mental status change with psychotic symptoms, paranoia, perceptual alterations, poor sleep and significant thought blocking. Pt denies SI, HI. Today she is a very poor historian-almost pre-catatonic at times, considering signing a three day notice of intent. Team report by history she may not be comfortable in this facility. Assessment plan for 09/21/2021 Continue current medical treatment elevated white blood count noted over the past month question related to cancer treatment. No evidence of infection Patient depressed withdrawn preoccupied patient with recent treatment for ductal carcinoma stress of this might certainly lead to depressive almost catatonic episode 09/22/21 Pt with thought blocking improved from yeterday have restarted wellbutin hosp did not have sr cont clozapine evaluate baseline denies self harm oob more 09/23/21 Continue current plan of care. Collateral contacts with OP team, oncology. 09/24/21 Increase Abilify to 30 mg daily Pt currently refusing Lorazepam TDN expires 09/25/21-will file for civil commitment if pt persists in wanting discharge 09/25/21 Civil commitment filing completed Continue current regime. 09/26/21 Continue current regime 09/27/32 Decrease Abilify to 20 mg daily Risperdal 1.5 mg HS 09/28/21 Continue plan as above 09/29/21 No changes 09/30/21 Court 10/01/21 Chemotherapy 10/01/21 Increase Risperdal to 2.5 mg HS Decrease Abilify to 10 mg daily 10/02/21 Tolerating change back to Abilify from Risperdal Appetite is improved. Calmer, more visable, however continues with paranoia Jardiance ordered from [facility] 10/03/21 Increase Abilify to 30 mg daily Will pursue validation of pt's HCP for continued chemotherapy Tentative chemotherapy 10/09. 10/04/21 Continue current regime 10/05 no changes to current regimen 10/06 no changes to current regimen 10/07/21 No positive effect from increase in Abilify Increase Clozaril to 100 mg bid, an increase of 50 mg daily, divided. Chemotherapy 10/09/21, Labs 10/08/21. 10/08/21 Tolerating Clozaril increase thus far Dexamethasone 4 mg hs and 4 mg a.m. pre chemo per Dr. Mora Support, encourage 10/09/21 Continue current plan of care 10/10/21 Continue current plan of care 10/11/21 Continue current plan. Will re-eval for Clozaril increase next week. 10/12/2021: Continue current regimen and plans. No changes were made today 10/13/2021: Continue current plans and regimen. 10/14/21: Increase Clozaril to 125 mg bid EKG, CBCD, CMP 10/15 prior to chemotherapy 10/15/21: Continue current plan of care 10/16/21: Continue current plan. Tolerating Clozaril increase 10/17/21: Continue current regime. 10/18/21: Increase Clozaril to 150 mg bid Decrease Abilify to 20 mg daily ECT Consult 10/19/21: continue meds unchanged 10/20/21: pt continue to present as paranoid, withdrawn 10/21/21: Continue current regime. Labs/EKG 10/22. Some improvement today. 10/22/21: Labs/EKG WNL Meeting 10/24 with health care proxy's to discuss clozaril discontinuation ECT Consult 10/24/21: Continue current plan. 10/25/21: Continue current plan. 10/26: ECT may be indicated. Change Ativan to standing dose. 10/27 Increase Ativan to 1 mg TID and watch for sedation 10/28/21: CBCD, CMP, EKG 10/29/21 in preparation for chemotherapy Await Clozapine level results. 10/29/21: ECT consult 10/30 Chemotherapy 10/30 Await Clozapine level results. Tentative plan to taper Abilify, titrate Latuda. Family/HCP in agreement. Pt agrees as well. 10/30/21: Decrease Abilify to 10 mg daily to prepare to begin Latuda 10/31/21: Continue current plan. 11/01/21: Discontinue Abilify Latuda 20 mg 1800 11/02/21: Continue current treatment plan 11/03/21: Continue current treatment plan 11/04/21: Tolerating Latuda. Pt asks not to titrate yet. Some improvement noted. 11/05/21: Chemotherapy 11/06. Ready to titrate Latuda-family will discuss with pt. Thus far, a positive result, without adverse effect. EKG reading pending Sister will not be taking pt to chemotherapy on 11/06 as her son has tested positive for COVID this afternoon. Partner Kailey will accompany pt. along with team. 11/06/21: Increase Latuda to 40 mg daily after evening meal. Increase Colace to 200 mg hs Miralax prn Per nursing report, pt will no longer need steroid dosing on Tuesdays before chemotherapy, but will receive dosing on Wednesdays in the chemotherapy dept. 11/07/21: Continue current plan. I spent minutes with the patient and/or on the patient floor today, greater than?50% of which was spent counseling/coordinating care. Patient educated on: diagnosis, medication risk/benefits and therapeutic strategies Informed Consent: further education needed Reason for contiued inpatient stay Substantial Risk for: harm to self, inability to function and rapid decompensation
[2021-11-07 17:08] VITALS: BP 135/84; PULSE 108; RESP 20; TEMP 36.3; O2SAT 100
[2021-11-07] MEDS: Lurasidone HCl 40 MG TABLET PO (18:31)
[2021-11-07] MEDS: Docusate Sodium 100 MG CAPSULE 200 MG PO (21:21)
[2021-11-07] MEDS: Atorvastatin Calcium 10 MG TABLET 5 MG PO (21:22)
[2021-11-08] MEDS: Omeprazole 20 MG CAPSULE.DR PO (06:06)
[2021-11-08 06:43] LABS: Glucose, Whole Blood 107 mg/dL (60-115)
[2021-11-08] MEDS: Ferrous Sulfate 324 MG TABLET.DR PO (07:56)
[2021-11-08] MEDS: Ascorbic Acid 500 MG TABLET 1000 MG PO (07:57)
[2021-11-08] MEDS: Cholecalciferol (Vitamin D3) 10 MCG TABLET PO (07:57)
[2021-11-08] MEDS: Cyanocobalamin (Vitamin B-12) 1,000 MCG TABLET 1000 MCG PO (07:57)
[2021-11-08] MEDS: metFORMIN HCl 1,000 MG TABLET 1000 MG PO ×2 (07:58→20:40)
[2021-11-08] MEDS: cloZAPine 100 MG TABLET 150 MG PO ×2 (07:58→20:40)
[2021-11-08] MEDS: Losartan Potassium 25 MG TABLET PO (07:58)
[2021-11-08] MEDS: cloNIDine HCL 0.1 MG TABLET PO ×3 (07:58→20:41)
[2021-11-08] MEDS: buPROPion HCL 100 MG TABLET PO (07:59)
[2021-11-08 08:08] VITALS: BP 109/60; PULSE 126; RESP 16; TEMP 36.6; O2SAT 98
[2021-11-08] MEDS: Multivitamin TABLET 1 TAB PO (08:15)
[2021-11-08] MEDS: Enoxaparin Sodium 40 MG/0.4 ML SYRINGE SUBCUT (11:28)
[2021-11-08] MEDS: LORazepam 1 MG TABLET PO ×2 (12:06→20:41)
[2021-11-08 14:08] VITALS: BP 117/70; PULSE 119
--- NOTE | 2021-11-08 17:31 | P.PNPSI_ITS ---
Subjective Subjective Date of Service: 11/08/21 Reason For Visit: Depression paranoia Subjective Notes: Section [employer] Healthcare Proxy: Yes Guardianship: No Medical Problems Affecting Mental Status: No Interim History: Sister visited today. Requested from nursing that Lorazepam be scheduled vs prn as pt appears to have less sx when a.m. Lorazepam is scheduled. Pt reports she is up a bit at night . Denies SI, denies thoughts to harm family, denies depressive sx. I am just trying to organize my brain-it is taking longer than usual. Medication Compliance: Yes Side effects from medications: No Attending Groups: Yes Review of Systems Acute medical concerns: No Medical Review of Systems: unchanged Review of Systems Psychiatric: Reports anxiety, Reports depression, Reports difficulty concentrating, Reports paranoia, Reports homicidal ideation (denies) and Reports suicidal ideation (denies) Mental Status Exam Mental Status Exam Patient Appearance: Appropriate Patient Orientation: Person, Place, Time and Situation Level of Consciousness: Alert Patient Behavior: Guarded, Talkative and Good Eye Contact Mood Description: Flat Affect Description: Flat Patient Cognition Impaired: No Ability to Follow Directions: Good Speech Pattern: Perseverating, Spontaneous Speech, Soft-Spoken and Long Pauses (present, but decreasing) Memory Description: Episodic Impaired Hallucinations: None Delusions: Paranoid Ideation Perceptual Disturbances: Depersonalization and Derealization Thought Process: Distracted and Rumination Thought Content: positive for [place], positive for Perseveration, positive for Thought Blocking (present but decreased), positive for Suicidal Ideation (d enies) and positive for Homicidal Ideation (denies) Depressive Symptoms: Diff. Making Decisions, Difficulty Sleeping, Feelings of Guilt, Thoughts of /Suicide (denies), Low Self Esteem and Difficulty Concentrating (reports mild improvement) Abnormal Motor Activity Signs and Symptoms: Psychomotor Retardation (improving) Judgement: Fair Diagnostics Vital Signs (24Hr): Vital Signs - 24 hr 11/08/21 08:08 11/08/21 14:08 Temperature 97.8 F Pulse Rate 126 H 119 H Respiratory Rate 16 Blood Pressure 109/60 117/70 Pulse Oximetry 98 BMI result Body Mass Index 30.5 Labs Results: 11/05/21 07:53 11/05/21 07:53 Labs: Laboratory Results - last 48 hr 11/07/21 11/08/21 06:14 06:23 POC Glucose 88 107 Medications Medications Current Medications Acetaminophen (Acetaminophen 325 Mg Tablet) 650 mg PO Q6H PRN PRN Reason: Headache/Pain Mild Scale (1-3) Al Hydroxide/Mg Hydroxide (Magnesium Hydrox/Alum Hydrox 30 Ml Oral.Susp) 30 ml PO Q6H PRN PRN Reason: Heartburn/Nausea Last Admin: 10/02/21 14:41 Dose: 30 ml Documented by: Ascorbic Acid (Ascorbic Acid 500 Mg Tablet) 1,000 mg PO DAILY [facility] Last Admin: 11/08/21 07:57 Dose: 1,000 mg Documented by: Atorvastatin Calcium (Atorvastatin Calcium 10 Mg Tablet) 5 mg PO BEDTIME [facility] Last Admin: 11/07/21 21:22 Dose: 5 mg Documented by: Bupropion HCl (Bupropion Hcl 100 Mg Tablet) 100 mg PO DAILY [facility] Last Admin: 11/08/21 07:59 Dose: 100 mg Documented by: Clonidine HCl (Clonidine Hcl 0.1 Mg Tablet) 0.1 mg PO TID [facility]; Protocol Last Admin: 11/08/21 14:04 Dose: 0.1 mg Documented by: Clozapine (Clozapine 100 Mg Tablet) 150 mg PO BID [facility] Last Admin: 11/08/21 07:58 Dose: 150 mg Documented by: Cyanocobalamin (Cyanocobalamin (Vitamin B-12) 1,000 Mcg Tablet) 1,000 mcg PO DA JAIMEE [facility] Last Admin: 11/08/21 07:57 Dose: 1,000 mcg Documented by: Docusate Sodium (Docusate Sodium 100 Mg Capsule) 200 mg PO BEDTIME [facility] Last Admin: 11/07/21 21:21 Dose: 200 mg Documented by: Enoxaparin Sodium (Enoxaparin Sodium 40 Mg/0.4 Ml Syringe) 40 mg SUBCUT Q24H [facility] Last Admin: 11/08/21 11:28 Dose: 40 mg Documented by: Ferrous Sulfate (Ferrous Sulfate 324 Mg Tablet.) 324 mg PO DAILY [facility] Last Admin: 11/08/21 07:56 Dose: 324 mg Documented by: Hydroxyzine HCl (Hydroxyzine Hcl 25 Mg Tablet) 25 mg PO BEDTIME PRN PRN Reason: Anxiety Last Admin: 10/31/21 02:30 Dose: 25 mg Documented by: Lorazepam (Lorazepam 1 Mg Tablet) 1 mg PO BID [facility] Last Admin: 11/08/21 12:06 Dose: 1 mg Documented by: Losartan Potassium (Losartan Potassium 25 Mg Tablet) 25 mg PO DAILY [facility]; Protocol Last Admin: 11/08/21 07:58 Dose: 25 mg Documented by: Lurasidone HCl (Lurasidone Hcl 40 Mg Tablet) 40 mg PO 1800 [facility] Last Admin: 11/07/21 18:31 Dose: 40 mg Documented by: Magnesium Hydroxide (Milk Of Magnesia 30 Ml Oral.Susp) 30 ml PO DAILY PRN PRN Reason: Constipation Metformin HCl (Metformin Hcl 1,000 Mg Tablet) 1,000 mg PO BID [facility] Last Admin: 11/08/21 07:58 Dose: 1,000 mg Documented by: Multivitamins/Vitamin C (Multivitamin Tablet) 1 tab PO DAILY [facility] Last Admin: 11/08/21 08:15 Dose: 1 tab Documented by: Neomycin/Polymyxin/Bacitracin (Neomy/Polymyx/Bacit/Ointment 14 Gm Tube) 1 gm TOPICAL BID [facility]; Protocol Last Admin: 11/08/21 08:15 Dose: Not Given Documented by: Non-Formulary Medication (Cinnamon) 1,000 mg PO DAILY [facility] Last Admin: 11/08/21 07:56 Dose: 1,000 mg Documented by: Patient Own Medication ( Empagliflozin 10 Mg) 1 each PO DAILY [facility] Last Admin: 11/08/21 07:56 Dose: 1 each Documented by: Omeprazole (Omeprazole 20 Mg Capsule.) 20 mg PO DAILY@0630 [facility] Last Admin: 11/08/21 06:06 Dose: 20 mg Documented by: Ondansetron HCl (Ondansetron Odt 8 Mg Tab.Rapdis) 8 mg TRANSLINGU Q8H PRN PRN Reason: nausea Polyethylene Glycol (Polyethylene Glycol 3350 17 Gm Powd.Pack) 17 gm PO DAILY PRN PRN Reason: Constipation Last Admin: 11/06/21 12:24 Dose: 17 gm Documented by: Prazosin HCl (Prazosin Hcl 1 Mg Capsule) 1 mg PO BEDTIME PRN; Protocol PRN Reason: nightmares Last Admin: 10/30/21 21:53 Dose: 1 mg Documented by: Trazodone HCl (Trazodone Hcl 50 Mg Tablet) 50 mg PO BEDTIME PRN PRN Reason: Insomnia Last Admin: 11/05/21 22:49 Dose: 50 mg Documented by: Vitamin D (Cholecalciferol (Vitamin D3) 10 Mcg Tablet) 10 mcg PO DAILY [facility] Last Admin: 11/08/21 07:57 Dose: 10 mcg Documented by: Allergies Allergies Allergy/AdvReac Type Severity Reaction Status Date / Time lisinopril [LISINOPRIL] Allergy Unknown SWOLLEN Verified 09/17/21 08:42 LIPS, angioedema, swelling Assessment & Plan Assessment & Plan (1) Schizoaffective disorder: Status: Acute Code(s): F25.9 - Schizoaffective disorder, unspecified (2) Invasive ductal carcinoma of right breast: Status: Acute Code(s): C50.911 - Malignant neoplasm of unspecified site of right female breast (3) Hypertension: Qualifiers: Hypertension type: essential hypertension Qualified Code(s): I10 - Essential (primary) hypertension Status: Acute Code(s): I10 - Essential (primary) hypertension (4) Hypercholesterolemia: Status: Acute Code(s): E78.00 - Pure hypercholesterolemia, unspecified (5) Type 2 diabetes mellitus with hyperglycemia: Qualifiers: Diabetes mellitus terminologist insulin use: without terminologist use Qualified Code(s): E11.65 - Type 2 diabetes mellitus with hyperglycemia Status: Acute Code(s): E11.65 - Type 2 diabetes mellitus with hyperglycemia Assessment and Plan: Continue metformin Jardiance monitor point of care (6) GERD (gastroesophageal reflux disease): Qualifiers: Esophagitis presence: without esophagitis Qualified Code(s): K21.9 - Gastro-esophageal reflux disease without esophagitis Status: Acute Code(s): K21.9 - Gastro-esophageal reflux disease without esophagitis Plan 50 yo female, hx of schizoaffective disorder, depressed with R breast cancer, having just completed first cycle of chemotherapy. Pt's partner and sister report to crisis team that pt has had a significant mental status change with psychotic symptoms, paranoia, perceptual alterations, poor sleep and significant thought blocking. Pt denies SI, HI. Today she is a very poor historian-almost pre-catatonic at times, considering signing a three day notice of intent. Team report by history she may not be comfortable in this facility. Assessment plan for 09/21/2021 Continue current medical treatment elevated white blood count noted over the past month question related to cancer treatment. No evidence of infection Patient depressed withdrawn preoccupied patient with recent treatment for ductal carcinoma stress of this might certainly lead to depressive almost catatonic episode 09/22/21 Pt with thought blocking improved from yeterday have restarted wellbutin hosp did not have sr cont clozapine evaluate baseline denies self harm oob more 09/23/21 Continue current plan of care. Collateral contacts with OP team, oncology. 09/24/21 Increase Abilify to 30 mg daily Pt currently refusing Lorazepam TDN expires 09/25/21-will file for civil commitment if pt persists in wanting discharge 09/25/21 Civil commitment filing completed Continue current regime. 09/26/21 Continue current regime 09/27/32 Decrease Abilify to 20 mg daily Risperdal 1.5 mg HS 09/28/21 Continue plan as above 09/29/21 No changes 09/30/21 Court 10/01/21 Chemotherapy 10/01/21 Increase Risperdal to 2.5 mg HS Decrease Abilify to 10 mg daily 10/02/21 Tolerating change back to Abilify from Risperdal Appetite is improved. Calmer, more visable, however continues with paranoia Jardiance ordered from [facility] 10/03/21 Increase Abilify to 30 mg daily Will pursue validation of pt's HCP for continued chemotherapy Tentative chemotherapy 10/09. 10/04/21 Continue current regime 10/05 no changes to current regimen 10/06 no changes to current regimen 10/07/21 No positive effect from increase in Abilify Increase Clozaril to 100 mg bid, an increase of 50 mg daily, divided. Chemotherapy 10/09/21, Labs 10/08/21. 10/08/21 Tolerating Clozaril increase thus far Dexamethasone 4 mg hs and 4 mg a.m. pre chemo per Dr. Mora Support, encourage 10/09/21 Continue current plan of care 10/10/21 Continue current plan of care 10/11/21 Continue current plan. Will re-eval for Clozaril increase next week. 10/12/2021: Continue current regimen and plans. No changes were made today 10/13/2021: Continue current plans and regimen. 10/14/21: Increase Clozaril to 125 mg bid EKG, CBCD, CMP 10/15 prior to chemotherapy 10/15/21: Continue current plan of care 10/16/21: Continue current plan. Tolerating Clozaril increase 10/17/21: Continue current regime. 10/18/21: Increase Clozaril to 150 mg bid Decrease Abilify to 20 mg daily ECT Consult 10/19/21: continue meds unchanged 10/20/21: pt continue to present as paranoid, withdrawn 10/21/21: Continue current regime. Labs/EKG 10/22. Some improvement today. 10/22/21: Labs/EKG WNL Meeting 10/24 with health care proxy's to discuss clozaril di scontinuation ECT Consult 10/24/21: Continue current plan. 10/25/21: Continue current plan. 10/26: ECT may be indicated. Change Ativan to standing dose. 10/27 Increase Ativan to 1 mg TID and watch for sedation 10/28/21: CBCD, CMP, EKG 10/29/21 in preparation for chemotherapy Await Clozapine level results. 10/29/21: ECT consult 10/30 Chemotherapy 10/30 Await Clozapine level results. Tentative plan to taper Abilify, titrate Latuda. Family/HCP in agreement. Pt agrees as well. 10/30/21: Decrease Abilify to 10 mg daily to prepare to begin Latuda 10/31/21: Continue current plan. 11/01/21: Discontinue Abilify Latuda 20 mg 1800 11/02/21: Continue current treatment plan 11/03/21: Continue current treatment plan 11/04/21: Tolerating Latuda. Pt asks not to titrate yet. Some improvement noted. 11/05/21: Chemotherapy 11/06. Ready to titrate Latuda-family will discuss with pt. Thus far, a positive result, without adverse effect. EKG reading pending Sister will not be taking pt to chemotherapy on 11/06 as her son has tested positive for COVID this afternoon. Partner Kailey will accompany pt. along with team. 11/06/21: Increase Latuda to 40 mg daily after evening meal. Increase Colace to 200 mg hs Miralax prn Per nursing report, pt will no longer need steroid dosing on Tuesdays before chemotherapy, but will receive dosing on Wednesdays in the chemotherapy dept. 11/07/21: Continue current plan. 11/08/21: Change Lorazepam prn to 1 mg bid I spent minutes with the patient and/or on the patient floor today, greater than?50% of which was spent counseling/coordinating care. Patient educated on: medication risk/benefits and therapeutic strategies Informed Consent: further education needed Reason for contiued inpatient stay Substantial Risk for: harm to self, harm to others, inability to function, rapid decompensation and med/psych decompensation
[2021-11-08] MEDS: Lurasidone HCl 40 MG TABLET PO (19:52)
[2021-11-08 20:25] VITALS: BP 112/73; PULSE 110; TEMP 36.7
[2021-11-08] MEDS: Docusate Sodium 100 MG CAPSULE 200 MG PO (20:40)
[2021-11-08] MEDS: Atorvastatin Calcium 10 MG TABLET 5 MG PO (20:43)
[2021-11-09] MEDS: Omeprazole 20 MG CAPSULE.DR PO (06:14)
[2021-11-09 06:45] LABS: Glucose, Whole Blood 103 mg/dL (60-115)
[2021-11-09] MEDS: Multivitamin TABLET 1 TAB PO (08:19)
[2021-11-09] MEDS: Ascorbic Acid 500 MG TABLET 1000 MG PO (08:19)
[2021-11-09] MEDS: Cyanocobalamin (Vitamin B-12) 1,000 MCG TABLET 1000 MCG PO (08:19)
[2021-11-09] MEDS: cloZAPine 100 MG TABLET 150 MG PO ×2 (08:19→20:26)
[2021-11-09] MEDS: metFORMIN HCl 1,000 MG TABLET 1000 MG PO ×2 (08:19→20:28)
[2021-11-09] MEDS: buPROPion HCL 100 MG TABLET PO (08:19)
[2021-11-09] MEDS: cloNIDine HCL 0.1 MG TABLET PO ×3 (08:19→20:27)
[2021-11-09] MEDS: Cholecalciferol (Vitamin D3) 10 MCG TABLET PO (08:19)
[2021-11-09] MEDS: Losartan Potassium 25 MG TABLET PO (08:19)
[2021-11-09] MEDS: LORazepam 1 MG TABLET PO ×2 (08:19→20:27)
[2021-11-09] MEDS: Ferrous Sulfate 324 MG TABLET.DR PO (08:20)
[2021-11-09 08:27] VITALS: BP 120/73; PULSE 106; RESP 16; TEMP 36.5; O2SAT 99
[2021-11-09] MEDS: Enoxaparin Sodium 40 MG/0.4 ML SYRINGE SUBCUT (11:37)
[2021-11-09 14:25] VITALS: BP 119/71; PULSE 113
[2021-11-09] MEDS: Lurasidone HCl 40 MG TABLET PO (17:54)
--- NOTE | 2021-11-09 18:36 | P.PNPSI_ITS ---
Subjective Subjective Date of Service: 11/09/21 Reason For Visit: Depression paranoia Interim History: I think I feel a little better. Visiting with family, visable in milieu, less thought blocking. Team report Ativan is helpful when scheduled. No questions or concerns today per pt. Medication Compliance: Yes Side effects from medications: No Attending Groups: Yes Review of Systems Acute medical concerns: No Medical Review of Systems: unchanged Mental Status Exam Mental Status Exam Patient Appearance: Appropriate Patient Orientation: Person, Place, Time and Situation Level of Consciousness: Alert Patient Behavior: Guarded, Talkative and Good Eye Contact Mood Description: Flat Affect Description: Flat Patient Cognition Impaired: No Ability to Follow Directions: Good Speech Pattern: Perseverating, Spontaneous Speech, Soft-Spoken and Long Pauses (present, but decreasing) Memory Description: Episodic Impaired Hallucinations: None Delusions: Paranoid Ideation Perceptual Disturbances: Depersonalization and Derealization Thought Process: Distracted and Rumination Thought Content: positive for [place], positive for Perseveration, positive for Thought Blocking (present but decreased), positive for Suicidal Ideation (denies) and positive for Homicidal Ideation (denies) Depressive Symptoms: Diff. Making Decisions, Difficulty Sleeping, Feelings of Guilt, Thoughts of /Suicide (denies), Low Self Esteem and Difficulty Concentrating (reports mild improvement) Abnormal Motor Activity Signs and Symptoms: Psychomotor Retardation (improving) Judgement: Fair Diagnostics Vital Signs (24Hr): Vital Signs - 24 hr 11/08/21 20:25 11/09/21 08:27 11/09/21 14:25 Temperature 98.1 F 97.7 F Pulse Rate 110 H 106 H 113 H Respiratory Rate 16 Blood Pressure 112/73 120/73 119/71 Pulse Oximetry 99 BMI result Body Mass Index 30.5 Labs Results: 11/05/21 07:53 11/05/21 07:53 Labs: Laboratory Results - last 48 hr 11/08/21 11/09/21 06:23 06:22 POC Glucose 107 103 Medications Medications Current Medications Acetaminophen (Acetaminophen 325 Mg Tablet) 650 mg PO Q6H PRN PRN Reason: Headache/Pain Mild Scale (1-3) Al Hydroxide/Mg Hydroxide (Magnesium Hydrox/Alum Hydrox 30 Ml Oral.Susp) 30 ml PO Q6H PRN PRN Reason: Heartburn/Nausea Last Admin: 10/02/21 14:41 Dose: 30 ml Documented by: Ascorbic Acid (Ascorbic Acid 500 Mg Tablet) 1,000 mg PO DAILY [facility] Last Admin: 11/09/21 08:19 Dose: 1,000 mg Documented by: Atorvastatin Calcium (Atorvastatin Calcium 10 Mg Tablet) 5 mg PO BEDTIME [facility] Last Admin: 11/08/21 20:43 Dose: 5 mg Documented by: Bupropion HCl (Bupropion Hcl 100 Mg Tablet) 100 mg PO DAILY [facility] Last Admin: 11/09/21 08:19 Dose: 100 mg Documented by: Clonidine HCl (Clonidine Hcl 0.1 Mg Tablet) 0.1 mg PO TID [facility]; Protocol Last Admin: 11/09/21 14:21 Dose: 0.1 mg Documented by: Clozapine (Clozapine 100 Mg Tablet) 150 mg PO BID [facility] Last Admin: 11/09/21 08:19 Dose: 150 mg Documented by: Cyanocobalamin (Cyanocobalamin (Vitamin B-12) 1,000 Mcg Tablet) 1,000 mcg PO DAILY [facility] Last Admin: 11/09/21 08:19 Dose: 1,000 mcg Documented by: Docusate Sodium (Docusate Sodium 100 Mg Capsule) 200 mg PO BEDTIME [facility] Last Admin: 11/08/21 20:40 Dose: 200 mg Documented by: Enoxaparin Sodium (Enoxaparin Sodium 40 Mg/0.4 Ml Syringe) 40 mg SUBCUT Q24H [facility] Last Admin: 11/09/21 11:37 Dose: 40 mg Documented by: Ferrous Sulfate (Ferrous Sulfate 324 Mg Tablet.) 324 mg PO DAILY [facility] Last Admin: 11/09/21 08:20 Dose: 324 mg Documented by: Hydroxyzine HCl (Hydroxyzine Hcl 25 Mg Tablet) 25 mg PO BEDTIME PRN PRN Reason: Anxiety Last Admin: 10/31/21 02:30 Dose: 25 mg Documented by: Lorazepam (Lorazepam 1 Mg Tablet) 1 mg PO BID [facility] Last Admin: 11/09/21 08:19 Dose: 1 mg Documented by: Losartan Potassium (Losartan Potassium 25 Mg Tablet) 25 mg PO DAILY [facility]; Protocol Last Admin: 11/09/21 08:19 Dose: 25 mg Documented by: Lurasidone HCl (Lurasidone Hcl 40 Mg Tablet) 40 mg PO 1800 [facility] Last Admin: 11/09/21 17:54 Dose: 40 mg Documented by: Magnesium Hydroxide (Milk Of Magnesia 30 Ml Oral.Susp) 30 ml PO DAILY PRN PRN Reason: Constipation Metformin HCl (Metformin Hcl 1,000 Mg Tablet) 1,000 mg PO BID [facility] Last Admin: 11/09/21 08:19 Dose: 1,000 mg Documented by: Multivitamins/Vitamin C (Multivitamin Tablet) 1 tab PO DAILY [facility] Last Admin: 11/09/21 08:19 Dose: 1 tab Documented by: Neomycin/Polymyxin/Bacitracin (Neomy/Polymyx/Bacit/Ointment 14 Gm Tube) 1 gm TOPICAL BID [facility]; Protocol Last Admin: 11/09/21 09:43 Dose: Not Given Documented by: Non-Formulary Medication (Cinnamon) 1,000 mg PO DAILY [facility] Last Admin: 11/09/21 08:19 Dose: 1,000 mg Documented by: Patient Own Medication ( Empagliflozin 10 Mg) 1 each PO DAILY [facility] Last Admin: 11/09/21 08:18 Dose: 1 each Documented by: Omeprazole (Omeprazole 20 Mg Capsule.Dr) 20 mg PO DAILY@0630 [facility] Last Admin: 11/09/21 06:14 Dose: 20 mg Documented by: Ondansetron HCl (Ondansetron Odt 8 Mg Tab.Rapdis) 8 mg TRANSLINGU Q8H PRN PRN Reason: nausea Polyethylene Glycol (Polyethylene Glycol 3350 17 Gm Powd.Pack) 17 gm PO DAILY PRN PRN Reason: Constipation Last Admin: 11/06/21 12:24 Dose: 17 gm Documented by: Prazosin HCl (Prazosin Hcl 1 Mg Capsule) 1 mg PO BEDTIME PRN; Protocol PRN Reason: nightmares Last Admin: 10/30/21 21:53 Dose: 1 mg Documented by: Trazodone HCl (Trazodone Hcl 50 Mg Tablet) 50 mg PO BEDTIME PRN PRN Reason: Insomnia Last Admin: 11/05/21 22:49 Dose: 50 mg Documented by: Vitamin D (Cholecalciferol (Vitamin D3) 10 Mcg Tablet) 10 mcg PO DAILY [facility] Last Admin: 11/09/21 08:19 Dose: 10 mcg Documented by: Allergies Allergies Allergy/AdvReac Type Severity Reaction Status Date / Time lisinopril [LISINOPRIL] Allergy Unknown SWOLLEN Verified 09/17/21 08:42 LIPS, angioedema, swelling Assessment & Plan Assessment & Plan (1) Schizoaffective disorder: Status: Acute Code(s): F25.9 - Schizoaffective disorder, unspecified (2) Invasive ductal carcinoma of right breast: Status: Acute Code(s): C50.911 - Malignant neoplasm of unspecified site of right female breast (3) Hypertension: Qualifiers: Hypertension type: essential hypertension Qualified Code(s): I10 - Essential (primary) hypertension Status: Acute Code(s): I10 - Essential (primary) hypertension (4) Hypercholesterolemia: Status: Acute Code(s): E78.00 - Pure hypercholesterolemia, unspecified (5) Type 2 diabetes mellitus with hyperglycemia: Qualifiers: Diabetes mellitus fci insulin use: without termite control service representative use Parviz lified Code(s): E11.65 - Type 2 diabetes mellitus with hyperglycemia Status: Acute Code(s): E11.65 - Type 2 diabetes mellitus with hyperglycemia Assessment and Plan: Continue metformin Jardiance monitor point of care (6) GERD (gastroesophageal reflux disease): Qualifiers: Esophagitis presence: without esophagitis Qualified Code(s): K21.9 - Gastro-esophageal reflux disease without esophagitis Status: Acute Code(s): K21.9 - Gastro-esophageal reflux disease without esophagitis Plan 50 yo female, hx of schizoaffective disorder, depressed with R breast cancer, having just completed first cycle of chemotherapy. Pt's partner and sister report to crisis team that pt has had a significant mental status change with psychotic symptoms, paranoia, perceptual alterations, poor sleep and significant thought blocking. Pt denies SI, HI. Today she is a very poor historian-almost pre-catatonic at times, considering signing a three day notice of intent. Team report by history she may not be comfortable in this facility. Assessment plan for 09/21/2021 Continue current medical treatment elevated white blood count noted over the past month question related to cancer treatment. No evidence of infection Patient depressed withdrawn preoccupied patient with recent treatment for ductal carcinoma stress of this might certainly lead to depressive almost catatonic episode 09/22/21 Pt with thought blocking improved from yeterday have restarted wellbutin hosp did not have sr cont clozapine evaluate baseline denies self harm oob more 09/23/21 Continue current plan of care. Collateral contacts with OP team, oncology. 09/24/21 Increase Abilify to 30 mg daily Pt currently refusing Lorazepam TDN expires 09/25/21-will file for civil commitment if pt persists in wanting discharge 09/25/21 Civil commitment filing completed Continue current regime. 09/26/21 Continue current regime 09/27/32 Decrease Abilify to 20 mg daily Risperdal 1.5 mg HS 09/28/21 Continue plan as above 09/29/21 No changes 09/30/21 Court 10/01/21 Chemotherapy 10/01/21 Increase Risperdal to 2.5 mg HS Decrease Abilify to 10 mg daily 10/02/21 Tolerating change back to Abilify from Risperdal Appetite is improved. Calmer, more visable, however continues with paranoia Jardiance ordered from [facility] pharmacy 10/03/21 Increase Abilify to 30 mg daily Will pursue validation of pt's HCP for continued chemotherapy Tentative chemotherapy 10/09. 10/04/21 Continue current regime 10/05 no changes to current regimen 10/06 no changes to current regimen 10/07/21 No positive effect from increase in Abilify Increase Clozaril to 100 mg bid, an increase of 50 mg daily, divided. Chemotherapy 10/09/21, Labs 10/08/21. 10/08/21 Tolerating Clozaril increase thus far Dexamethasone 4 mg hs and 4 mg a.m. pre chemo per Dr. Mora Support, encourage 10/09/21 Continue current plan of care 10/10/21 Continue current plan of care 10/11/21 Continue current plan. Will re-eval for Clozaril increase next week. 10/12/2021: Continue current regimen and plans. No changes were made today 10/13/2021: Continue current plans and regimen. 10/14/21: Increase Clozaril to 125 mg bid EKG, CBCD, CMP 10/15 prior to chemotherapy 10/15/21: Continue current plan of care 10/16/21: Continue current plan. Tolerating Clozaril increase 10/17/21: Continue current regime. 10/18/21: Increase Clozaril to 150 mg bid Decrease Abilify to 20 mg daily ECT Consult 10/19/21: continue meds unchanged 10/20/21: pt continue to present as paranoid, withdrawn 10/21/21: Continue current regime. Labs/EKG 10/22. Some improvement today. 10/22/21: Labs/EKG WNL Meeting 10/24 with health care proxy's to discuss clozaril discontinuation ECT Consult 10/24/21: Continue current plan. 10/25/21: Continue current plan. 10/26: ECT may be indicated. Change Ativan to standing dose. 10/27 Increase Ativan to 1 mg TID and watch for sedation 10/28/21: CBCD, CMP, EKG 10/29/21 in preparation for chemotherapy Await Clozapine level results. 10/29/21: ECT consult 10/30 Chemotherapy 10/30 Await Clozapine level results. Tentative plan to taper Abilify, titrate Latuda. Family/HCP in agreement. Pt agrees as well. 10/30/21: Decrease Abilify to 10 mg daily to prepare to begin Latuda 10/31/21: Continue current plan. 11/01/21: Discontinue Abilify Latuda 20 mg 1800 11/02/21: Continue current treatment plan 11/03/21: Continue current treatment plan 11/04/21: Tolerating Latuda. Pt asks not to titrate yet. Some improvement noted. 11/05/21: Chemotherapy 11/06. Ready to titrate Latuda-family will discuss with pt. Thus far, a positive result, without adverse effect. EKG reading pending Sister will not be taking pt to chemotherapy on 11/06 as her son has tested positive for COVID this afternoon. Partner Kailey will accompany pt. along with team. 11/06/21: Increase Latuda to 40 mg daily after evening meal. Increase Colace to 200 mg hs Miralax prn Per nursing report, pt will no longer need steroid dosing on Tuesdays before chemotherapy, but will receive dosing on Wednesdays in the chemotherapy dept. 11/07/21: Continue current plan. 11/08/21: Change Lorazepam prn to 1 mg bid 11/09/21: Tolerating Lorazepam. Continue plan of care. I spent minutes with the patient and/or on the patient floor today, greater than?50% of which was spent counseling/coordinating care. Patient educated on: medication risk/benefits and therapeutic strategies Informed Consent: further education needed Reason for contiued inpatient stay Substantial Risk for: harm to self, inability to function and rapid decompensation
[2021-11-09 20:15] VITALS: BP 110/66; PULSE 113
[2021-11-09] MEDS: Atorvastatin Calcium 10 MG TABLET 5 MG PO (20:28)
[2021-11-09] MEDS: Docusate Sodium 100 MG CAPSULE 200 MG PO (20:28)
[2021-11-10] MEDS: Omeprazole 20 MG CAPSULE.DR PO (06:19)
[2021-11-10 06:48] LABS: Glucose, Whole Blood 127 mg/dL (60-115)
[2021-11-10] MEDS: cloZAPine 100 MG TABLET 150 MG PO ×2 (09:31→21:10)
[2021-11-10] MEDS: cloNIDine HCL 0.1 MG TABLET PO ×3 (09:32→21:10)
[2021-11-10] MEDS: Cyanocobalamin (Vitamin B-12) 1,000 MCG TABLET 1000 MCG PO (09:32)
[2021-11-10] MEDS: Losartan Potassium 25 MG TABLET PO (09:32)
[2021-11-10] MEDS: Cholecalciferol (Vitamin D3) 10 MCG TABLET PO (09:32)
[2021-11-10] MEDS: Ascorbic Acid 500 MG TABLET 1000 MG PO (09:32)
[2021-11-10] MEDS: buPROPion HCL 100 MG TABLET PO (09:32)
[2021-11-10] MEDS: LORazepam 1 MG TABLET PO ×2 (09:32→21:09)
[2021-11-10] MEDS: metFORMIN HCl 1,000 MG TABLET 1000 MG PO ×2 (09:32→21:09)
[2021-11-10] MEDS: Ferrous Sulfate 324 MG TABLET.DR PO (09:32)
[2021-11-10] MEDS: Multivitamin TABLET 1 TAB PO (09:32)
[2021-11-10 09:40] VITALS: BP 130/86; PULSE 112; RESP 16; TEMP 36.9; O2SAT 99
[2021-11-10] MEDS: Enoxaparin Sodium 40 MG/0.4 ML SYRINGE SUBCUT (11:59)
[2021-11-10 14:16] VITALS: BP 113/70; PULSE 122
--- NOTE | 2021-11-10 15:38 | HO.PSYCHPN ---
Subjective Subjective Date of Service: 11/10/21 Reason For Visit: Depression paranoia Subjective Notes: Section 8 Interim History: Met with pt and sister. Discussion of Latuda increase Discussion of what Sabra needs to do to discharge to home Medication Compliance: Yes Side effects from medications: No Attending Groups: Yes Review of Systems Acute medical concerns: No Medical Review of Systems: unchanged Mental Status Exam Mental Status Exam Patient Appearance: Appropriate Patient Orientation: Person, Place, Time and Situation Level of Consciousness: Alert Patient Behavior: Guarded, Talkative and Good Eye Contact Mood Description: Flat Affect Description: Flat Patient Cognition Impaired: No Ability to Follow Directions: Good Speech Pattern: Perseverating, Spontaneous Speech, Soft-Spoken and Long Pauses (present, but decreasing) Memory Description: Episodic Impaired Hallucinations: None Delusions: Paranoid Ideation Perceptual Disturbances: Depersonalization and Derealization Thought Process: Distracted and Rumination Thought Content: positive for [place], positive for Perseveration, positive for Thought Blocking (present but decreased), positive for Suicidal Ideation (denies) and positive for Homicidal Ideation (denies) Depressive Symptoms: Diff. Making Decisions, Difficulty Sleeping, Feelings of Guilt, Thoughts of /Suicide (denies), Low Self Esteem and Difficulty Concentrating (reports mild improvement) Abnormal Motor Activity Signs and Symptoms: Psychomotor Retardation (improving) Judgement: Fair Diagnostics Vital Signs (24Hr): Vital Signs - 24 hr 11/09/21 20:15 11/10/21 09:40 11/10/21 14:16 Temperature 98.5 F Pulse Rate 113 H 112 H 122 H Respiratory Rate 16 Blood Pressure 110/66 130/86 113/70 Pulse Oximetry 99 BMI result Body Mass Index 30.5 Labs Results: 11/05/21 07:53 11/05/21 07:53 Labs: Laboratory Results - last 48 hr 11/09/21 11/10/21 06:22 06:28 POC Glucose 103 127 H Medications Medications Current Medications Acetaminophen (Acetaminophen 325 Mg Tablet) 650 mg PO Q6H PRN PRN Reason: Headache/Pain Mild Scale (1-3) Al Hydroxide/Mg Hydroxide (Magnesium Hydrox/Alum Hydrox 30 Ml Oral.Susp) 30 ml PO Q6H PRN PRN Reason: Heartburn/Nausea Last Admin: 10/02/21 14:41 Dose: 30 ml Documented by: Ascorbic Acid (Ascorbic Acid 500 Mg Tablet) 1,000 mg PO DAILY MYRTLE Last Admin: 11/10/21 09:32 Dose: 1,000 mg Documented by: Atorvastatin Calcium (Atorvastatin Calcium 10 Mg Tablet) 5 mg PO BEDTIME [facility] Last Admin: 11/09/21 20:28 Dose: 5 mg Documented by: Bupropion HCl (Bupropion Hcl 100 Mg Tablet) 100 mg PO DAILY [facility] Last Admin: 11/10/21 09:32 Dose: 100 mg Documented by: Clonidine HCl (Clonidine Hcl 0.1 Mg Tablet) 0.1 mg PO TID [facility]; Protocol Last Admin: 11/10/21 14:12 Dose: 0.1 mg Documented by: Clozapine (Clozapine 100 Mg Tablet) 150 mg PO BID [facility] Last Admin: 11/10/21 09:31 Dose: 150 mg Documented by: Cyanocobalamin (Cyanocobalamin (Vitamin B-12) 1,000 Mcg Tablet) 1,000 mcg PO DAILY [facility] Last Admin: 11/10/21 09:32 Dose: 1,000 mcg Documented by: Docusate Sodium (Docusate Sodium 100 Mg Capsule) 200 mg PO BEDTIME [facility] Last Admin: 11/09/21 20:28 Dose: 200 mg Documented by: Enoxaparin Sodium (Enoxaparin Sodium 40 Mg/0.4 Ml Syringe) 40 mg SUBCUT Q24H [facility] Last Admin: 11/10/21 11:59 Dose: 40 mg Documented by: Ferrous Sulfate (Ferrous Sulfate 324 Mg Tablet.Dr) 324 mg PO DAILY [facility] Last Admin: 11/10/21 09:32 Dose: 324 mg Documented by: Hydroxyzine HCl (Hydroxyzine Hcl 25 Mg Tablet) 25 mg PO BEDTIME PRN PRN Reason: Anxiety Last Admin: 10/31/21 02:30 Dose: 25 mg Documented by: Lorazepam (Lorazepam 1 Mg Tablet) 1 mg PO BID [facility] Last Admin: 11/10/21 09:32 Dose: 1 mg Documented by: Losartan Potassium (Losartan Potassium 25 Mg Tablet) 25 mg PO DAILY [facility]; Protocol Last Admin: 11/10/21 09:32 Dose: 25 mg Documented by: Lurasidone HCl (Lurasidone Hcl 40 Mg Tablet) 40 mg PO 1800 [facility] Last Admin: 11/09/21 17:54 Dose: 40 mg Documented by: Magnesium Hydroxide (Milk Of Magnesia 30 Ml Oral.Susp) 30 ml PO DAILY PRN PRN Reason: Constipation Metformin HCl (Metformin Hcl 1,000 Mg Tablet) 1,000 mg PO BID [facility] Last Admin: 11/10/21 09:32 Dose: 1,000 mg Documented by: Multivitamins/Vitamin C (Multivitamin Tablet) 1 tab PO DAILY [facility] Last Admin: 11/10/21 09:32 Dose: 1 tab Documented by: Neomycin/Polymyxin/Bacitracin (Neomy/Polymyx/Bacit/Ointment 14 Gm Tube) 1 gm TOPICAL BID [facility]; Protocol Last Admin: 11/10/21 10:03 Dose: Not Given Documented by: Non-Formulary Medication (Cinnamon) 1,000 mg PO DAILY [facility] Last Admin: 11/10/21 09:31 Dose: 1,000 mg Documented by: Patient Own Medication ( Empagliflozin 10 Mg) 1 each PO DAILY [facility] Last Admin: 11/10/21 09:31 Dose: 1 each Documented by: Omeprazole (Omeprazole 20 Mg Capsule.) 20 mg PO DAILY@0630 [facility] Last Admin: 11/10/21 06:19 Dose: 20 mg Documented by: Ondansetron HCl (Ondansetron Odt 8 Mg Tab.Rapdis) 8 mg TRANSLINGU Q8H PRN PRN Reason: nausea Polyethylene Glycol (Polyethylene Glycol 3350 17 Gm Powd.Pack) 17 gm PO DAILY PRN PRN Reason: Constipation Last Admin: 11/06/21 12:24 Dose: 17 gm Documented by: Prazosin HCl (Prazosin Hcl 1 Mg Capsule) 1 mg PO BEDTIME PRN; Protocol PRN Reason: nightmares Last Admin: 10/30/21 21:53 Dose: 1 mg Documented by: Trazodone HCl (Trazodone Hcl 50 Mg Tablet) 50 mg PO BEDTIME PRN PRN Reason: Insomnia Last Admin: 11/05/21 22:49 Dose: 50 mg Documented by: Vitamin D (Cholecalciferol (Vitamin D3) 10 Mcg Tablet) 10 mcg PO DAILY [facility] Last Admin: 11/10/21 09:32 Dose: 10 mcg Documented by: Allergies Allergies Allergy/AdvReac Type Severity Reaction Status Date / Time lisinopril [LISINOPRIL] Allergy Unknown SWOLLEN Verified 09/17/21 08:42 LIPS, angioedema, swelling Assessment & Plan Assessment & Plan (1) Schizoaffective disorder: Status: Acute Code(s): F25.9 - Schizoaffective disorder, unspecified (2) Invasive ductal carcinoma of right breast: Status: Acute Code(s): C50.911 - Malignant neoplasm of unspecified site of right female breast (3) Hypertension: Qualifiers: Hypertension type: essential hypertension Qualified Code(s): I10 - Essential (primary) hypertension Status: Acute Code(s): I10 - Essential (primary) hypertension (4) Hypercholesterolemia: Status: Acute Code(s): E78.00 - Pure hypercholesterolemia, unspecified (5) Type 2 diabetes mellitus with hyperglycemia: Qualifiers: Diabetes mellitus care home insulin use: without care home use Qualified Code(s): E11.65 - Type 2 diabetes mellitus with hyperglycemia Status: Acute Code(s): E11.65 - Type 2 diabetes mellitus with hyperglycemia Assessment and Plan: Continue metformin Jardiance monitor point of care (6) GERD (gastroesophageal reflux disease): Qualifiers: Esophagitis presence: without esophagitis Qualified Code(s): K21.9 - Gastro-esophageal reflux disease without esophagitis Status: Acute Code(s): K21.9 - Gastro-esophageal reflux disease without esophagitis Plan 50 yo female, hx of schizoaffective disorder, depressed with R breast cancer, having just completed first cycle of chemotherapy. Pt's partner and sister report to crisis team that pt has had a significant mental status change with psychotic symptoms, paranoia, perceptual alterations, poor sleep and significant thought blocking. Pt denies SI, HI. Today she is a very poor historian-almost pre-catatonic at times, considering signing a three day notice of intent. Team report by history she may not be comfortable in this facility. Assessment plan for 09/21/2021 Continue current medical treatment elevated white blood count noted over the past month question related to cancer treatment. No evidence of infection Patient depressed withdrawn preoccupied patient with recent treatment for ductal carcinoma stress of this might certainly lead to depressive almost catatonic episode 09/22/21 Pt with thought blocking improved from yeterday have restarted wellbutin hosp did not have sr cont clozapine evaluate baseline denies self harm oob more 09/23/21 Continue current plan of care. Collateral contacts with OP team, oncology. 09/24/21 Increase Abilify to 30 mg daily Pt currently refusing Lorazepam TDN expires 09/25/21-will file for civil commitment if pt persists in wanting discharge 09/25/21 Civil commitment filing completed Continue current regime. 09/26/21 Continue current regime 09/27/32 Decrease Abilify to 20 mg daily Risperdal 1.5 mg HS 09/28/21 Continue plan as above 09/29/21 No changes 09/30/21 Court 10/01/21 Chemotherapy 10/01/21 Increase Risperdal to 2.5 mg HS Decrease Abilify to 10 mg daily 10/02/21 Tolerating change back to Abilify from Risperdal Appetite is improved. Calmer, more visable, however continues with paranoia Jardiance ordered from [email or web address] 10/03/21 Increase Abilify to 30 mg daily Will pursue validation of pt's HCP for continued chemotherapy Tentative chemotherapy 10/09. 10/04/21 Continue current regime 10/05 no changes to current regimen 10/06 no changes to current regimen 10/07/21 No positive effect from increase in Abilify Increase Clozaril to 100 mg bid, an increase of 50 mg daily, divided. Chemotherapy 10/09/21, Labs 10/08/21. 10/08/21 Tolerating Clozaril increase thus far Dexamethasone 4 mg hs and 4 mg a.m. pre chemo per Dr. Mora Support, encourage 10/09/21 Continue current plan of care 10/10/21 Continue current plan of care 10/11/21 Continue current plan. Will re-eval for Clozaril increase next week. 10/12/2021: Continue current regimen and plans. No changes were made today 10/13/2021: Continue current plans and regimen. 10/14/21: Increase Clozaril to 125 mg bid EKG, CBCD, CMP 10/15 prior to chemotherapy 10/15/21: Continue current plan of care 10/16/21: Continue current plan. Tolerating Clozaril increase 10/17/21: Continue current regime. 10/18/21: Increase Clozaril to 150 mg bid Decrease Abilify to 20 mg daily ECT Consult 10/19/21: continue meds unchanged 10/20/21: pt continue to present as paranoid, withdrawn 10/21/21: Continue current regime. Labs/EKG 10/22. Some improvement today. 10/22/21: Labs/EKG WNL Meeting 10/24 with health care proxy's to discuss clozaril discontinuation ECT Consult 10/24/21: Continue current plan. 10/25/21: Continue current plan. 10/26: ECT may be indicated. Change Ativan to standing dose. 10/27 Increase Ativan to 1 mg TID and watch for sedation 10/28/21: CBCD, CMP, EKG 10/29/21 in preparation for chemotherapy Await Clozapine level results. 10/29/21: ECT consult 10/30 Chemotherapy 10/30 Await Clozapine level results. Tentative plan to taper Abilify, titrate Latuda. Family/HCP in agreement. Pt agrees as well. 10/30/21: Decrease Abilify to 10 mg daily to prepare to begin Latuda 10/31/21: Continue current plan. 11/01/21: Discontinue Abilify Latuda 20 mg 1800 11/02/21: Continue current treatment plan 11/03/21: Continue current treatment plan 11/04/21: Tolerating Latuda. Pt asks not to titrate yet. Some improvement noted. 11/05/21: Chemotherapy 11/06. Ready to titrate Latuda-family will discuss with pt. Thus far, a positive result, without adverse effect. EKG reading pending Sister will not be taking pt to chemotherapy on 11/06 as her son has tested positive for COVID this afternoon. Partner Kailey will accompany pt. along with team. 11/06/21: Increase Latuda to 40 mg daily after evening meal. Increase Colace to 200 mg hs Miralax prn Per nursing report, pt will no longer need steroid dosing on Tuesdays before chemotherapy, but will receive dosing on Wednesdays in the chemotherapy dept. 11/07/21: Continue current plan. 11/08/21: Change Lorazepam prn to 1 mg bid 11/09/21: Tolerating Lorazepam. Continue plan of care. 11/10/21: Considering Latuda increase. I spent minutes with the patient and/or on the patient floor today, greater than?50% of which was spent counseling/coordinating care. Patient educated on: medication risk/benefits Informed Consent: further education needed Reason for contiued inpatient stay Substantial Risk for: med/psych decompensation
[2021-11-10] MEDS: Lurasidone HCl 40 MG TABLET PO (18:07)
[2021-11-10 20:45] VITALS: BP 133/90; PULSE 118
[2021-11-10] MEDS: Docusate Sodium 100 MG CAPSULE 200 MG PO (21:09)
[2021-11-10] MEDS: Atorvastatin Calcium 10 MG TABLET 5 MG PO (21:10)
[2021-11-11] MEDS: Omeprazole 20 MG CAPSULE.DR PO (06:19)
[2021-11-11 06:49] LABS: Glucose, Whole Blood 126 mg/dL (60-115)
[2021-11-11] MEDS: Ferrous Sulfate 324 MG TABLET.DR PO (08:44)
[2021-11-11] MEDS: Ascorbic Acid 500 MG TABLET 1000 MG PO (08:44)
[2021-11-11] MEDS: Cyanocobalamin (Vitamin B-12) 1,000 MCG TABLET 1000 MCG PO (08:44)
[2021-11-11] MEDS: Multivitamin TABLET 1 TAB PO (08:44)
[2021-11-11] MEDS: cloZAPine 100 MG TABLET 150 MG PO ×2 (08:45→20:26)
[2021-11-11] MEDS: Cholecalciferol (Vitamin D3) 10 MCG TABLET PO (08:45)
[2021-11-11] MEDS: LORazepam 1 MG TABLET PO ×2 (08:45→20:26)
[2021-11-11] MEDS: Losartan Potassium 25 MG TABLET PO (08:45)
[2021-11-11] MEDS: metFORMIN HCl 1,000 MG TABLET 1000 MG PO ×2 (08:45→20:41)
[2021-11-11] MEDS: buPROPion HCL 100 MG TABLET PO (08:45)
[2021-11-11] MEDS: cloNIDine HCL 0.1 MG TABLET PO ×3 (08:45→20:40)
[2021-11-11 08:51] VITALS: BP 135/86; PULSE 110; RESP 16; TEMP 36.7; O2SAT 100
[2021-11-11] MEDS: Enoxaparin Sodium 40 MG/0.4 ML SYRINGE SUBCUT (11:52)
[2021-11-11 14:43] VITALS: BP 118/76; PULSE 104
[2021-11-11 18:00] VITALS: BP 130/82; PULSE 99; RESP 16; TEMP 36.4; O2SAT 99
--- NOTE | 2021-11-11 18:36 | P.PNPSI_ITS ---
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 daily. She reports she discussed this with her health care proxy's and all agree. I want to take care of these symptoms and go home. Medication Compliance: Yes Side effects from medications: No Attending Groups: Yes Review of Systems Acute medical concerns: No Chemotherapy in progress Medical Review of Systems: unchanged Review of Systems Psychiatric: Reports anxiety, Reports depression, Reports difficulty concentrating, Reports paranoia, Reports homicidal ideation (denies) and Reports suicidal ideation (denies) Mental Status Exam Mental Status Exam Patient Appearance: Appropriate Patient Orientation: Person, Place, Time and Situation Level of Consciousness: Alert Patient Behavior: Guarded, Talkative and Good Eye Contact Mood Description: Flat Affect Description: Flat Patient Cognition Impaired: No Ability to Follow Directions: Good Speech Pattern: Perseverating, Spontaneous Speech, Soft-Spoken and Long Pauses (present, but decreasing) Memory Description: Episodic Impaired Hallucinations: None Delusions: Paranoid Ideation Perceptual Disturbances: Depersonalization and Derealization Thought Process: Distracted and Rumination Thought Content: positive for [place], positive for Perseveration, positive for Thought Blocking (present but decreased), positive for Suicidal Ideation (denies) and positive for Homicidal Ideation (denies) Depressive Symptoms: Diff. Making Decisions, Difficulty Sleeping, Feelings of Guilt, Thoughts of /Suicide (denies), Low Self Esteem and Difficulty Concentrating (reports mild improvement) Abnormal Motor Activity Signs and Symptoms: Psychomotor Retardation (improving) Judgement: Fair Diagnostics Vital Signs (24Hr): Vital Signs - 24 hr 11/10/21 20:45 11/11/21 08:51 11/11/21 14:43 Temperature 98.0 F Pulse Rate 118 H 110 H 104 H Respiratory Rate 16 Blood Pressure 133/90 H 135/86 118/76 Pulse Oximetry 100 BMI result Body Mass Index 30.5 Labs Results: 11/05/21 07:53 11/05/21 07:53 Labs: Laboratory Results - last 48 hr 11/10/21 11/11/21 06:28 06:23 POC Glucose 127 H 126 H Medications Medications Current Medications Acetaminophen (Acetaminophen 325 Mg Tablet) 650 mg PO Q6H PRN PRN Reason: Headache/Pain Mild Scale (1-3) Al Hydroxide/Mg Hydroxide (Magnesium Hydrox/Alum Hydrox 30 Ml Oral.Susp) 30 ml PO Q6H PRN PRN Reason: Heartburn/Nausea Last Admin: 10/02/21 14:41 Dose: 30 ml Documented by: Ascorbic Acid (Ascorbic Acid 500 Mg Tablet) 1,000 mg PO DAILY [facility] Last Admin: 11/11/21 08:44 Dose: 1,000 mg Documented by: Atorvastatin Calcium (Atorvastatin Calcium 10 Mg Tablet) 5 mg PO BEDTIME [facility] Last Admin: 11/10/21 21:10 Dose: 5 mg Documented by: Bupropion HCl (Bupropion Hcl 100 Mg Tablet) 100 mg PO DAILY [facility] Last Admin: 11/11/21 08:45 Dose: 100 mg Documented by: Clonidine HCl (Clonidine Hcl 0.1 Mg Tablet) 0.1 mg PO TID [facility]; Protocol Last Admin: 11/11/21 14:40 Dose: 0.1 mg Documented by: Clozapine (Clozapine 100 Mg Tablet) 150 mg PO BID [facility] Last Admin: 11/11/21 08:45 Dose: 150 mg Documented by: Cyanocobalamin (Cyanocobalamin (Vitamin B-12) 1,000 Mcg Tablet) 1,000 mcg PO DAILY [facility] Last Admin: 11/11/21 08:44 Dose: 1,000 mcg Documented by: Docusate Sodium (Docusate Sodium 100 Mg Capsule) 200 mg PO BEDTIME [facility] Last Admin: 11/10/21 21:09 Dose: 200 mg Documented by: Enoxaparin Sodium (Enoxaparin Sodium 40 Mg/0.4 Ml Syringe) 40 mg SUBCUT Q24H [facility] Last Admin: 11/11/21 11:52 Dose: 40 mg Documented by: Ferrous Sulfate (Ferrous Sulfate 324 Mg Tablet.) 324 mg PO DAILY [facility] Last Admin: 11/11/21 08:44 Dose: 324 mg Documented by: Hydroxyzine HCl (Hydroxyzine Hcl 25 Mg Tablet) 25 mg PO BEDTIME PRN PRN Reason: Anxiety Last Admin: 10/31/21 02:30 Dose: 25 mg Documented by: Lorazepam (Lorazepam 1 Mg Tablet) 1 mg PO BID [facility] Last Admin: 11/11/21 08:45 Dose: 1 mg Documented by: Losartan Potassium (Losartan Potassium 25 Mg Tablet) 25 mg PO DAILY [facility]; Protocol Last Admin: 11/11/21 08:45 Dose: 25 mg Documented by: Lurasidone HCl (Lurasidone Hcl 20 Mg Tablet) 60 mg PO 1800 [facility] Magnesium Hydroxide (Milk Of Magnesia 30 Ml Oral.Susp) 30 ml PO DAILY PRN PRN Reason: Constipation Metformin HCl (Metformin Hcl 1,000 Mg Tablet) 1,000 mg PO BID [facility] Last Admin: 11/11/21 08:45 Dose: 1,000 mg Documented by: Multivitamins/Vitamin C (Multivitamin Tablet) 1 tab PO DAILY [facility] Last Admin: 11/11/21 08:44 Dose: 1 tab Documented by: Neomycin/Polymyxin/Bacitracin (Neomy/Polymyx/Bacit/Ointment 14 Gm Tube) 1 gm TOPICAL BID [facility]; Protocol Last Admin: 11/11/21 09:27 Dose: Not Given Documented by: Non-Formulary Medication (Cinnamon) 1,000 mg PO DAILY [facility] Last Admin: 11/11/21 08:44 Dose: 1,000 mg Documented by: Patient Own Medication ( Empagliflozin 10 Mg) 1 each PO DAILY [facility] Last Admin: 11/11/21 08:44 Dose: 1 each Documented by: Omeprazole (Omeprazole 20 Mg Capsule.Dr) 20 mg PO DAILY@0630 [facility] Last Admin: 11/11/21 06:19 Dose: 20 mg Documented by: Ondansetron HCl (Ondansetron Odt 8 Mg Tab.Rapdis) 8 mg TRANSLINGU Q8H PRN PRN Reason: nausea Polyethylene Glycol (Polyethylene Glycol 3350 17 Gm Powd.Pack) 17 gm PO DAILY PRN PRN Reason: Constipation Last Admin: 11/06/21 12:24 Dose: 17 gm Documented by: Prazosin HCl (Prazosin Hcl 1 Mg Capsule) 1 mg PO BEDTIME PRN; Protocol PRN Reason: nightmares Last Admin: 10/30/21 21:53 Dose: 1 mg Documented by: Trazodone HCl (Trazodone Hcl 50 Mg Tablet) 50 mg PO BEDTIME PRN PRN Reason: Insomnia Last Admin: 11/05/21 22:49 Dose: 50 mg Documented by: Vitamin D (Cholecalciferol (Vitamin D3) 10 Mcg Tablet) 10 mcg PO DAILY [facility] Last Admin: 11/11/21 08:45 Dose: 10 mcg Documented by: Allergies Allergies Allergy/AdvReac Type Severity Reaction Status Date / Time lisinopril [LISINOPRIL] Allergy Unknown SWOLLEN Verified 09/17/21 08:42 LIPS, angioedema, swelling Assessment & Plan Assessment & Plan (1) Schizoaffective disorder: Status: Acute Code(s): F25.9 - Schizoaffective disorder, unspecified (2) Invasive ductal carcinoma of right breast: Status: Acute Code(s): C50.911 - Malignant neoplasm of unspecified site of right female breast (3) Hypertension: Qualifiers: Hypertension type: essential hypertension Qualified Code(s): I10 - Essential (primary) hypertension Status: Acute Code(s): I10 - Essential (primary) hypertension (4) Hypercholesterolemia: Status: Acute Code(s): E78.00 - Pure hypercholesterolemia, unspecified (5) Type 2 diabetes mellitus with hyperglycemia: Qualifiers: Diabetes mellitus detention insulin use: without manager long term care use Qualified Code(s): E11.65 - Type 2 diabetes mellitus with hyperglycemia Status: Acute Code(s): E11.65 - Type 2 diabetes mellitus with hyperglycemia Assessment and Plan: Continue metformin Jardiance monitor point of care (6) GERD (gastroesophageal reflux disease): Qualifiers: Esophagitis presence: without esophagitis Qualified Code(s): K21.9 - Gastro-esophageal reflux disease without esophagitis Status: Acute Code(s): K21.9 - Gastro-esophageal reflux disease without esophagitis Plan 50 yo female, hx of schizoaffective disorder, depressed with R breast cancer, having just completed first cycle of chemotherapy. Pt's partner and sister report to crisis team that pt has had a significant mental status change with psychotic symptoms, paranoia, perceptual alterations, poor sleep and significant thought blocking. Pt denies SI, HI. Today she is a very poor historian-almost pre-catatonic at times, considering signing a three day notice of intent. Team report by history she may not be comfortable in this facility. Assessment plan for 09/21/2021 Continue current medical treatment elevated white blood count noted over the past month question related to cancer treatment. No evidence of infection Patient depressed withdrawn preoccupied patient with recent treatment for ductal carcinoma stress of this might certainly lead to depressive almost catatonic episode 09/22/21 Pt with thought blocking improved from yeterday have restarted wellbutin hosp did not have sr cont clozapine evaluate baseline denies self harm oob more 09/23/21 Continue current plan of care. Collateral contacts with OP team, oncology. 09/24/21 Increase Abilify to 30 mg daily Pt currently refusing Lorazepam TDN expires 09/25/21-will file for civil commitment if pt persists in wanting discharge 09/25/21 Civil commitment filing completed Continue current regime. 09/26/21 Continue current regime 09/27/32 Decrease Abilify to 20 mg daily Risperdal 1.5 mg HS 09/28/21 Continue plan as above 09/29/21 No changes 09/30/21 Court 10/01/21 Chemotherapy 10/01/21 Increase Risperdal to 2.5 mg HS Decrease Abilify to 10 mg daily 10/02/21 Tolerating change back to Abilify from Risperdal Appetite is improved. Calmer, more visable, however continues with paranoia Jardiance ordered from [facility] pharmacy 10/03/21 Increase Abilify to 30 mg daily Will pursue validation of pt's HCP for continued chemotherapy Tentative chemotherapy 10/09. 10/04/21 Continue current regime 10/05 no changes to current regimen 10/06 no changes to current regimen 10/07/21 No positive effect from increase in Abilify Increase Clozaril to 100 mg bid, an increase of 50 mg daily, divided. Chemotherapy 10/09/21, Labs 10/08/21. 10/08/21 Tolerating Clozaril increase thus far Dexamethasone 4 mg hs and 4 mg a.m. pre chemo per Dr. Mora Support, encourage 10/09/21 Continue current plan of care 10/10/21 Continue current plan of care 10/11/21 Continue current plan. Will re-eval for Clozaril increase next week. 10/12/2021: Continue current regimen and plans. No changes were made today 10/13/2021: Continue current plans and regimen. 10/14/21: Increase Clozaril to 125 mg bid EKG, CBCD, CMP 10/15 prior to chemotherapy 10/15/21: Continue current plan of care 10/16/21: Continue current plan. Tolerating Clozaril increase 10/17/21: Continue current regime. 10/18/21: Increase Clozaril to 150 mg bid Decrease Abilify to 20 mg daily ECT Consult 10/19/21: continue meds unchanged 10/20/21: pt continue to present as paranoid, withdrawn 10/21/21: Continue current regime. Labs/EKG 10/22. Some improvement today. 10/22/21: Labs/EKG WNL Meeting 10/24 with health care proxy's to discuss clozaril discontinuation ECT Consult 10/24/21: Continue current plan. 10/25/21: Continue current plan. 10/26: ECT may be indicated. Change Ativan to standing dose. 10/27 Increase Ativan to 1 mg TID and watch for sedation 10/28/21: CBCD, CMP, EKG 10/29/21 in preparation for chemotherapy Await Clozapine level results. 10/29/21: ECT consult 10/30 Chemotherapy 10/30 Await Clozapine level results. Tentative plan to taper Abilify, titrate Latuda. Family/HCP in agreement. Pt agrees as well. 10/30/21: Decrease Abilify to 10 mg daily to prepare to begin Latuda 10/31/21: Continue current plan. 11/01/21: Discontinue Abilify Latuda 20 mg 1800 11/02/21: Continue current treatment plan 11/03/21: Continue current treatment plan 11/04/21: Tolerating Latuda. Pt asks not to titrate yet. Some improvement noted. 11/05/21: Chemotherapy 11/06. Ready to titrate Latuda-family will discuss with pt. Thus far, a positive result, without adverse effect. EKG reading pending Sister will not be taking pt to chemotherapy on 11/06 as her son has tested positive for COVID this afternoon. Partner Kailey will accompany pt. along with team. 11/06/21: Increase Latuda to 40 mg daily after evening meal. Increase Colace to 200 mg hs Miralax prn Per nursing report, pt will no longer need steroid dosing on Tuesdays before chemotherapy, but will receive dosing on Wednesdays in the chemotherapy dept. 11/07/21: Continue current plan. 11/08/21: Change Lorazepam prn to 1 mg bid 11/09/21: Tolerating Lorazepam. Continue plan of care. 11/10/21: Considering Latuda increase. 11/11/21: Increase Latuda to 60 mg daily. Labs pre chemotherapy. I spent minutes with the patient and/or on the patient floor today, greater than?50% of which was spent counseling/coordinating care. Patient educated on: medication risk/benefits Informed Consent: understands and further education needed Reason for contiued inpatient stay Substantial Risk for: harm to self, inability to function, rapid decompensation and med/psych decompensation
[2021-11-11] MEDS: Atorvastatin Calcium 10 MG TABLET 5 MG PO (20:29)
[2021-11-11] MEDS: Lurasidone HCl 20 MG TABLET 60 MG PO (20:31)
[2021-11-11] MEDS: Docusate Sodium 100 MG CAPSULE 200 MG PO (20:40)
[2021-11-12] MEDS: Omeprazole 20 MG CAPSULE.DR PO (07:04)
[2021-11-12 07:26] LABS: Glucose, Whole Blood 139 mg/dL (60-115)
[2021-11-12] MEDS: Ascorbic Acid 500 MG TABLET 1000 MG PO (08:35)
[2021-11-12] MEDS: buPROPion HCL 100 MG TABLET PO (08:35)
[2021-11-12] MEDS: Cyanocobalamin (Vitamin B-12) 1,000 MCG TABLET 1000 MCG PO (08:35)
[2021-11-12] MEDS: cloNIDine HCL 0.1 MG TABLET PO ×3 (08:35→21:20)
[2021-11-12] MEDS: LORazepam 1 MG TABLET PO ×2 (08:35→21:21)
[2021-11-12] MEDS: metFORMIN HCl 1,000 MG TABLET 1000 MG PO ×2 (08:36→21:22)
[2021-11-12] MEDS: Multivitamin TABLET 1 TAB PO (08:36)
[2021-11-12] MEDS: cloZAPine 100 MG TABLET 150 MG PO ×2 (08:36→21:21)
[2021-11-12] MEDS: Losartan Potassium 25 MG TABLET PO (08:36)
[2021-11-12] MEDS: Cholecalciferol (Vitamin D3) 10 MCG TABLET PO (08:36)
[2021-11-12] MEDS: Ferrous Sulfate 324 MG TABLET.DR PO (08:36)
[2021-11-12 08:46] VITALS: BP 121/80; PULSE 120; RESP 16; TEMP 36.2; O2SAT 97
[2021-11-12 08:55] LABS: MANUAL DIFF FLAG NO
[2021-11-12 08:59] LABS: Basophils Percent Auto 0.4 % (0-2); Eosinophils Percent Auto 0.3 % (0-4); Hematocrit 36.6 % (37.0-47.0); Hemoglobin 12.1 g/dl (12.0-16.0); Imm Gran Abs Auto 0.05 X10*3/uL (0.00-0.03); Imm Gran Pct Auto 0.7 % (0.0-0.4); Lymphocytes Absolute Auto 1.6 X10*3/uL (1.2-4.9); Lymphocytes Percent Auto 23.1 % (20-40); Mean Corpuscular HGB Conc 33.1 g/dl (31.0-35.0); Mean Corpuscular Hemoglobin 31.2 pg (27.0-33.0); Mean Corpuscular Volume 94.3 fL (80.0-98.0); Mean Platelet Volume 10.5 fL (9.4-12.3); Monocytes Absolute Auto 0.3 X10*3/uL (0.1-1.2); Monocytes Percent Auto 4.3 % (2-11); Neutrophils Absolute Auto 4.9 x10*3/uL (2.0-8.3); Neutrophils Percent Auto 71.2 % (45-73); Platelet Count 339 X10*3/uL (160-400); Red Blood Count 3.88 X10*6/uL (4.20-5.50); Red Cell Distribution Width 17.4 % (11.0-16.0); White Blood Count 6.9 X10*3/uL (4.8-10.8)
[2021-11-12 09:26] LABS: Creatinine Clr Calc Pharmacy 90.4; Estimated Glomerular Filt Rate > 60
[2021-11-12 09:31] LABS: Alanine Aminotransferase 30 U/L (0-31); Albumin Level 4.2 g/dL (3.5-5.0); Alkaline Phosphatase 94 U/L (39-117); Anion Gap 17 (12-20); Aspartate Amino Transferase 19 U/L (5-31); Bilirubin Total 0.5 mg/dL (0.0-1.0); Blood Urea Nitrogen 11 mg/dL (9-16); Calcium 9.7 mg/dL (8.4-10.2); Carbon Dioxide 20 mmol/L (22-29); Chloride 106 mmol/L (96-108); Creatinine Clr Calc Pharmacy 89.1; Estimated Glomerular Filt Rate > 60; Glucose Random 163 mg/dL (60-115); Potassium 4.2 mmol/L (3.3-5.1); Sodium 139 mmol/L (135-145); Total Protein 6.6 g/dL (6.5-8.0)
--- NOTE | 2021-11-12 10:00 | ECG_ITS ---
Test Reason : PRE CHEMO Blood Pressure : / mmHG Vent. Rate : 111 BPM Atrial Rate : 111 BPM P-R Int : 134 ms QRS Dur : 078 ms QT Int : 308 ms P-R-T Axes : 052 059 -05 degrees QTc Int : 418 ms Sinus tachycardia Nonspecific T wave abnormality Abnormal ECG When compared with ECG of 04-NOV-2021 19:21, Left posterior fascicular block is no longer Present T wave inversion no longer evident in Lateral leads Referred By: Marci Jones Electronically Signed By:CECI MOLINA MD
[2021-11-12] MEDS: Enoxaparin Sodium 40 MG/0.4 ML SYRINGE SUBCUT (10:22)
[2021-11-12 14:47] VITALS: BP 122/76; PULSE 118; RESP 16; O2SAT 98
--- NOTE | 2021-11-12 17:25 | HO.PSYCHPN ---
Subjective Subjective Date of Service: 11/12/21 Reason For Visit: Depression paranoia Subjective Notes: Section [employer] Healthcare Proxy: Yes Guardianship: No Medical Problems Affecting Mental Status: Yes (chemotherapy phase II) Interim History: Sabra accepting of pre chemotherapy CBCD, CMP, EKG. No specific questions regarding plan of care today. Talkative, less paucity, visable attending groups. Medication Compliance: Yes Side effects from medications: No Attending Groups: Yes Review of Systems Acute medical concerns: No Medical Review of Systems: unchanged Review of Systems Psychiatric: Reports anxiety, Reports depression, Reports difficulty concentrating, Reports anhedonia, Reports paranoia, Reports hallucinations and Reports suicidal ideation (denies) Mental Status Exam Mental Status Exam Patient Appearance: Appropriate Patient Orientation: Person, Place, Time and Situation Level of Consciousness: Alert Patient Behavior: Guarded, Talkative and Good Eye Contact Mood Description: Flat Affect Description: Flat Patient Cognition Impaired: No Ability to Follow Directions: Good Speech Pattern: Perseverating, Spontaneous Speech, Soft-Spoken and Long Pauses (present, but decreasing) Memory Description: Episodic Impaired Hallucinations: None Delusions: Paranoid Ideation Perceptual Disturbances: Depersonalization and Derealization Thought Process: Distracted and Rumination Thought Content: positive for [place], positive for Perseveration, positive for Thought Blocking (present but decreased), positive for Suicidal Ideation (denies) and positive for Homicidal Ideation (denies) Depressive Symptoms: Diff. Making Decisions, Difficulty Sleeping, Feelings of Guilt, Thoughts of /Suicide (denies), Low Self Esteem and Difficulty Concentrating (reports mild improvement) Abnormal Motor Activity Signs and Symptoms: Psychomotor Retardation (improving) Judgement: Fair Diagnostics Vital Signs (24Hr): Vital Signs - 24 hr 11/11/21 18:00 11/12/21 08:46 11/12/21 14:47 Temperature 97.6 F 97.2 F Pulse Rate 99 120 H 118 H Respiratory Rate 16 16 16 Blood Pressure 130/82 121/80 122/76 Pulse Oximetry 99 97 98 BMI result Body Mass Index 30.5 Labs Results: 11/12/21 08:27 11/12/21 08:27 Labs: Laboratory Results - last 48 hr 11/11/21 11/12/21 11/12/21 06:23 07:07 08:27 WBC RBC Hgb Hct MCV MCH MCHC RDW Plt Count MPV Immature Gran % (Auto) Neut % (Auto) Lymph % (Auto) [place] % (Auto) Eos % (Auto) Baso % (Auto) Lymph # (Auto) [place] # (Auto) Eos # (Auto) Baso # (Auto) Abs Immat Gran (auto) Absolute Neuts (auto) Absolute Nucleated RBC Nucleated RBC % (auto) Sodium Potassium Chloride Carbon Dioxide Anion Gap BUN Creatinine 0.71 Estim Creat Clear Calc 90.4 Estimated GFR > 60 POC Glucose 126 H 139 H Random Glucose Calcium Total Bilirubin AST ALT Alkaline Phosphatase Total Protein Albumin 11/12/21 11/12/21 11/12/21 08:27 08:27 08:27 WBC 6.9 RBC 3.88 L Hgb 12.1 Hct 36.6 L MCV 94.3 MCH 31.2 MCHC 33.1 RDW 17.4 H Plt Count 339 MPV 10.5 Immature Gran % (Auto) 0.7 H Neut % (Auto) 71.2 Lymph % (Auto) 23.1 [place] % (Auto) 4.3 Eos % (Auto) 0.3 Baso % (Auto) 0.4 Lymph # (Auto) 1.6 [place] # (Auto) 0.3 Eos # (Auto) 0.0 Baso # (Auto) 0.0 Abs Immat Gran (auto) 0.05 H Absolute Neuts (auto) Cancelled 4.9 Absolute Nucleated RBC 0.000 Nucleated RBC % (auto) 0.0 Sodium 139 Potassium 4.2 Chloride 106 Carbon Dioxide 20 L Anion Gap 17 BUN 11 Creatinine 0.72 Estim Creat Clear Calc 89.1 Estimated GFR > 60 POC Glucose Random Glucose 163 H Calcium 9.7 Total Bilirubin 0.5 AST 19 D ALT 30 Alkaline Phosphatase 94 Total Protein 6.6 Albumin 4.2 Medications Medications Current Medications Acetaminophen (Acetaminophen 325 Mg Tablet) 650 mg PO Q6H PRN PRN Reason: Headache/Pain Mild Scale (1-3) Al Hydroxide/Mg Hydroxide (Magnesium Hydrox/Alum Hydrox 30 Ml Oral.Susp) 30 ml PO Q6H PRN PRN Reason: Heartburn/Nausea Last Admin: 10/02/21 14:41 Dose: 30 ml Documented by: Ascorbic Acid (Ascorbic Acid 500 Mg Tablet) 1,000 mg PO DAILY [facility] Last Admin: 11/12/21 08:35 Dose: 1,000 mg Documented by: Atorvastatin Calcium (Atorvastatin Calcium 10 Mg Tablet) 5 mg PO BEDTIME [facility]RTLE Last Admin: 11/11/21 20:29 Dose: 5 mg Documented by: Bupropion HCl (Bupropion Hcl 100 Mg Tablet) 100 mg PO DAILY [facility] Last Admin: 11/12/21 08:35 Dose: 100 mg Documented by: Clonidine HCl (Clonidine Hcl 0.1 Mg Tablet) 0.1 mg PO TID [facility]; Protocol Last Admin: 11/12/21 14:46 Dose: 0.1 mg Documented by: Clozapine (Clozapine 100 Mg Tablet) 150 mg PO BID [facility] Last Admin: 11/12/21 08:36 Dose: 150 mg Documented by: Cyanocobalamin (Cyanocobalamin (Vitamin B-12) 1,000 Mcg Tablet) 1,000 mcg PO DAILY [facility] Last Admin: 11/12/21 08:35 Dose: 1,000 mcg Documented by: Docusate Sodium (Docusate Sodium 100 Mg Capsule) 200 mg PO BEDTIME [facility] Last Admin: 11/11/21 20:40 Dose: 200 mg Documented by: Enoxaparin Sodium (Enoxaparin Sodium 40 Mg/0.4 Ml Syringe) 40 mg SUBCUT Q24H [facility] Last Admin: 11/12/21 10:22 Dose: 40 mg Documented by: Ferrous Sulfate (Ferrous Sulfate 324 Mg Tablet.) 324 mg PO DAILY [facility] Last Admin: 11/12/21 08:36 Dose: 324 mg Documented by: Hydroxyzine HCl (Hydroxyzine Hcl 25 Mg Tablet) 25 mg PO BEDTIME PRN PRN Reason: Anxiety Last Admin: 10/31/21 02:30 Dose: 25 mg Documented by: Lorazepam (Lorazepam 1 Mg Tablet) 1 mg PO BID [facility] Last Admin: 11/12/21 08:35 Dose: 1 mg Documented by: Losartan Potassium (Losartan Potassium 25 Mg Tablet) 25 mg PO DAILY [facility]; Protocol Last Admin: 11/12/21 08:36 Dose: 25 mg Documented by: Lurasidone HCl (Lurasidone Hcl 20 Mg Tablet) 60 mg PO 1800 [facility] Last Admin: 11/11/21 20:31 Dose: 60 mg Documented by: Magnesium Hydroxide (Milk Of Magnesia 30 Ml Oral.Susp) 30 ml PO DAILY PRN PRN Reason: Constipation Metformin HCl (Metformin Hcl 1,000 Mg Tablet) 1,000 mg PO BID [facility] Last Admin: 11/12/21 08:36 Dose: 1,000 mg Documented by: Multivitamins/Vitamin C (Multivitamin Tablet) 1 tab PO DAILY [facility] Last Admin: 11/12/21 08:36 Dose: 1 tab Documented by: Neomycin/Polymyxin/Bacitracin (Neomy/Polymyx/Bacit/Ointment 14 Gm Tube) 1 gm TOPICAL BID [facility]; Protocol Last Admin: 11/12/21 08:48 Dose: Not Given Documented by: Non-Formulary Medication (Cinnamon) 1,000 mg PO DAILY [facility] Last Admin: 11/12/21 08:36 Dose: 1,000 mg Documented by: Patient Own Medication ( Empagliflozin 10 Mg) 1 each PO DAILY [facility] Last Admin: 11/12/21 08:37 Dose: 1 each Documented by: Omeprazole (Omeprazole 20 Mg Capsule.Dr) 20 mg PO DAILY@0630 [facility] Last Admin: 11/12/21 07:04 Dose: 20 mg Documented by: Ondansetron HCl (Ondansetron Odt 8 Mg Tab.Rapdis) 8 mg TRANSLINGU Q8H PRN PRN Reason: nausea Polyethylene Glycol (Polyethylene Glycol 3350 17 Gm Powd.Pack) 17 gm PO DAILY PRN PRN Reason: Constipation Last Admin: 11/06/21 12:24 Dose: 17 gm Documented by: Prazosin HCl (Prazosin Hcl 1 Mg Capsule) 1 mg PO BEDTIME PRN; Protocol PRN Reason: nightmares Last Admin: 10/30/21 21:53 Dose: 1 mg Documented by: Trazodone HCl (Trazodone Hcl 50 Mg Tablet) 50 mg PO BEDTIME PRN PRN Reason: Insomnia Last Admin: 11/05/21 22:49 Dose: 50 mg Documented by: Vitamin D (Cholecalciferol (Vitamin D3) 10 Mcg Tablet) 10 mcg PO DAILY [facility] Last Admin: 11/12/21 08:36 Dose: 10 mcg Documented by: Allergies Allergies Allergy/AdvReac Type Severity Reaction Status Date / Time lisinopril [LISINOPRIL] Allergy Unknown SWOLLEN Verified 09/17/21 08:42 LIPS, angioedema, swelling Assessment & Plan Assessment & Plan (1) Schizoaffective disorder: Status: Acute Code(s): F25.9 - Schizoaffective disorder, unspecified (2) Invasive ductal carcinoma of right breast: Status: Acute Code(s): C50.911 - Malignant neoplasm of unspecified site of right female breast (3) Hypertension: Qualifiers: Hypertension type: essential hypertension Qualified Code(s): I10 - Essential (primary) hypertension Status: Acute Code(s): I10 - Essential (primary) hypertension (4) Hypercholesterolemia: Status: Acute Code(s): E78.00 - Pure hypercholesterolemia, unspecified (5) Type 2 diabetes mellitus with hyperglycemia: Qualifiers: Diabetes mellitus watcher [employer] insulin use: without watcher [employer] use Qualified Code(s): E11.65 - Type 2 diabetes mellitus with hyperglycemia Status: Acute Code(s): E11.65 - Type 2 diabetes mellitus with hyperglycemia Assessment and Plan: Continue metformin Jardiance monitor point of care (6) GERD (gastroesophageal reflux disease): Qualifiers: Esophagitis presence: without esophagitis Qualified Code(s): K21.9 - Gastro-esophageal reflux disease without esophagitis Status: Acute Code(s): K21.9 - Gastro-esophageal reflux disease without esophagitis Plan 50 yo female, hx of schizoaffective disorder, depressed with R breast cancer, having just completed first cycle of chemotherapy. Pt's partner and sister report to crisis team that pt has had a significant mental status change with psychotic symptoms, paranoia, perceptual alterations, poor sleep and significant thought blocking. Pt denies SI, HI. Today she is a very poor historian-almost pre-catatonic at times, considering signing a three day notice of intent. Team report by history she may not be comfortable in this facility. Assessment plan for 09/21/2021 Continue current medical treatment elevated white blood count noted over the past month question related to cancer treatment. No evidence of infection Patient depressed withdrawn preoccupied patient with recent treatment for ductal carcinoma stress of this might certainly lead to depressive almost catatonic episode 09/22/21 Pt with thought blocking improved from yeterday have restarted wellbutin hosp did not have sr cont clozapine evaluate baseline denies self harm oob more 09/23/21 Continue current plan of care. Collateral contacts with OP team, oncology. 09/24/21 Increase Abilify to 30 mg daily Pt currently refusing Lorazepam TDN expires 09/25/21-will file for civil commitment if pt persists in wanting discharge 09/25/21 Civil commitment filing completed Continue current regime. 09/26/21 Continue current regime 3/4/33 Decrease Abilify to 20 mg daily Risperdal 1.5 mg HS 09/28/21 Continue plan as above 09/29/21 No changes 09/30/21 Court 10/01/21 Chemotherapy 10/01/21 Increase Risperdal to 2.5 mg HS Decrease Abilify to 10 mg daily 10/02/21 Tolerating change back to Abilify from Risperdal Appetite is improved. Calmer, more visable, however continues with paranoia Jardiance ordered from [facility] 10/03/21 Increase Abilify to 30 mg daily Will pursue validation of pt's HCP for continued chemotherapy Tentative chemotherapy 10/09. 10/04/21 Continue current regime 10/05 no changes to current regimen 10/06 no changes to current regimen 10/07/21 No positive effect from increase in Abilify Increase Clozaril to 100 mg bid, an increase of 50 mg daily, divided. Chemotherapy 10/09/21, Labs 10/08/21. 10/08/21 Tolerating Clozaril increase thus far Dexamethasone 4 mg hs and 4 mg a.m. pre chemo per Dr. Mora Support, encourage 10/09/21 Continue current plan of care 10/10/21 Continue current plan of care 10/11/21 Continue current plan. Will re-eval for Clozaril increase next week. 10/12/2021: Continue current regimen and plans. No changes were made today 10/13/2021: Continue current plans and regimen. 10/14/21: Increase Clozaril to 125 mg bid EKG, CBCD, CMP 10/15 prior to chemotherapy 10/15/21: Continue current plan of care 10/16/21: Continue current plan. Tolerating Clozaril increase 10/17/21: Continue current regime. 10/18/21: Increase Clozaril to 150 mg bid Decrease Abilify to 20 mg daily ECT Consult 10/19/21: continue meds unchanged 10/20/21: pt continue to present as paranoid, withdrawn 10/21/21: Continue current regime. Labs/EKG 10/22. Some improvement today. 10/22/21: Labs/EKG WNL Meeting 10/24 with health care proxy's to discuss clozaril discontinuation ECT Consult 10/24/21: Continue current plan. 10/25/21: Continue current plan. 10/26: ECT may be indicated. Change Ativan to standing dose. 10/27 Increase Ativan to 1 mg TID and watch for sedation 10/28/21: CBCD, CMP, EKG 10/29/21 in preparation for chemotherapy Await Clozapine level results. 10/29/21: ECT consult 10/30 Chemotherapy 10/30 Await Clozapine level results. Tentative plan to taper Abilify, titrate Latuda. Family/HCP in agreement. Pt agrees as well. 10/30/21: Decrease Abilify to 10 mg daily to prepare to begin Latuda 10/31/21: Continue current plan. 11/01/21: Discontinue Abilify Latuda 20 mg 1800 11/02/21: Continue current treatment plan 11/03/21: Continue current treatment plan 11/04/21: Tolerating Latuda. Pt asks not to titrate yet. Some improvement noted. 11/05/21: Chemotherapy 11/06. Ready to titrate Latuda-family will discuss with pt. Thus far, a positive result, without adverse effect. EKG reading pending Sister will not be taking pt to chemotherapy on 11/06 as her son has tested positive for COVID this afternoon. Partner Kailye will accompany pt. along with team. 11/06/21: Increase Latuda to 40 mg daily after evening meal. Increase Colace to 200 mg hs Miralax prn Per nursing report, pt will no longer need steroid dosing on Tuesdays before chemotherapy, but will receive dosing on Wednesdays in the chemotherapy dept. 11/07/21: Continue current plan. 11/08/21: Change Lorazepam prn to 1 mg bid 11/09/21: Tolerating Lorazepam. Continue plan of care. 11/10/21: Considering Latuda increase. 11/11/21: Increase Latuda to 60 mg daily. Labs pre chemotherapy. 11/12/21: Continue current plan. Care discussed with HCP Kailey- review of Ativan dosing, therapeutic Latuda dosing,pt's not understanding that her thought blocking, paranoia, belief that she will go to [facility] are target sx for medication increase. I spent minutes with the patient and/or on the patient floor today, greater than?50% of which was spent counseling/coordinating care. Patient educated on: medication risk/benefits and therapeutic strategies Guardian/Caregiver educated on: diagnosis, medication risk/benefits and therapeutic strategies Informed Consent: further education needed Reason for contiued inpatient stay Substantial Risk for: harm to self, inability to function, rapid decompensation and med/psych decompensation
[2021-11-12 18:00] VITALS: BP 142/86; PULSE 85; RESP 16; TEMP 36.1; O2SAT 99
[2021-11-12] MEDS: Lurasidone HCl 20 MG TABLET 60 MG PO (18:19)
[2021-11-12] MEDS: Atorvastatin Calcium 10 MG TABLET 5 MG PO (21:19)
[2021-11-12] MEDS: Docusate Sodium 100 MG CAPSULE 200 MG PO (21:20)
[2021-11-13] MEDS: Omeprazole 20 MG CAPSULE.DR PO (06:17)
[2021-11-13] MEDS: Cholecalciferol (Vitamin D3) 10 MCG TABLET PO (08:07)
[2021-11-13] MEDS: Ascorbic Acid 500 MG TABLET 1000 MG PO (08:07)
[2021-11-13] MEDS: LORazepam 1 MG TABLET PO ×2 (08:07→20:45)
[2021-11-13] MEDS: cloZAPine 100 MG TABLET 150 MG PO ×2 (08:07→20:46)
[2021-11-13] MEDS: Cyanocobalamin (Vitamin B-12) 1,000 MCG TABLET 1000 MCG PO (08:07)
[2021-11-13] MEDS: Multivitamin TABLET 1 TAB PO (08:09)
[2021-11-13] MEDS: buPROPion HCL 100 MG TABLET PO (08:09)
[2021-11-13] MEDS: metFORMIN HCl 1,000 MG TABLET 1000 MG PO ×2 (08:09→20:46)
[2021-11-13] MEDS: Losartan Potassium 25 MG TABLET PO (08:09)
[2021-11-13] MEDS: cloNIDine HCL 0.1 MG TABLET PO ×2 (08:09→20:46)
[2021-11-13] MEDS: Ferrous Sulfate 324 MG TABLET.DR PO (08:09)
[2021-11-13 08:14] VITALS: BP 123/73; PULSE 113; RESP 16; TEMP 36.6; O2SAT 98
[2021-11-13 08:25] LABS: Glucose, Whole Blood 126 mg/dL (60-115)
[2021-11-13] MEDS: Enoxaparin Sodium 40 MG/0.4 ML SYRINGE SUBCUT (11:37)
[2021-11-13 13:00] VITALS: BP 103/80; PULSE 123
--- NOTE | 2021-11-13 16:15 | HO.PSYCHPN ---
Subjective Subjective Date of Service: 11/13/21 Reason For Visit: Depression paranoia Subjective Notes: Section 8 Healthcare Proxy: Yes Guardianship: No Medical Problems Affecting Mental Status: Yes (chemotherapy phase II) Interim History: Sabra reports feeling better. She talks today about what she needs to do to go home. Discussed initiating [place] 3 to assist with potential chemotherapy induced confusion, brain fog sx. She agrees, HCP's agree also. Will initiate MegaRed. Intermitted reports of L side facial edema, especially in the a.m. which appears to resolve upon awakening. ?Port sx, pt reports this is the side she sleeps on. Will monitor. Medication Compliance: Yes Side effects from medications: No Attending Groups: Yes Review of Systems Chemotherapy phase II Medical Review of Systems: unchanged Review of Systems Psychiatric: Reports anxiety, Reports depression, Reports difficulty concentrating, Reports anhedonia, Reports paranoia, Reports hallucinations and Reports suicidal ideation (denies) Mental Status Exam Mental Status Exam Patient Appearance: Appropriate Patient Orientation: Person, Place, Time and Situation Level of Consciousness: Alert Patient Behavior: Guarded, Talkative and Good Eye Contact Mood Description: Flat Affect Description: Flat Patient Cognition Impaired: No Ability to Follow Directions: Good Speech Pattern: Perseverating, Spontaneous Speech, Soft-Spoken and Long Pauses (present, but decreasing) Memory Description: Episodic Impaired Hallucinations: None Delusions: Paranoid Ideation Perceptual Disturbances: Depersonalization and Derealization Thought Process: Distracted and Rumination Thought Content: positive for [place], positive for Perseveration, positive for Thought Blocking (present but decreased), positive for Suicidal Ideation (denies) and positive for Homicidal Ideation (denies) Depressive Symptoms: Diff. Making Decisions, Difficulty Sleeping, Feelings of Guilt, Thoughts of /Suicide (denies), Low Self Esteem and Difficulty Concentrating (reports mild improvement) Abnormal Motor Activity Signs and Symptoms: Psychomotor Retardation (improving) Judgement: Fair Diagnostics Vital Signs (24Hr): Vital Signs - 24 hr 11/12/21 18:00 11/13/21 08:14 11/13/21 13:00 Temperature 97 F 97.8 F Pulse Rate 85 113 H 123 H Respiratory Rate 16 16 Blood Pressure 142/86 H 123/73 103/80 Pulse Oximetry 99 98 BMI result Body Mass Index 30.5 Labs Results: 11/12/21 08:27 11/12/21 08:27 Labs: Laboratory Results - last 48 hr 11/12/21 11/12/21 11/12/21 07:07 08:27 08:27 WBC RBC Hgb Hct MCV MCH MCHC RDW Plt Count MPV Immature Gran % (Auto) Neut % (Auto) Lymph % (Auto) [place] % (Auto) Eos % (Auto) Baso % (Auto) Lymph # (Auto) [place] # (Auto) Eos # (Auto) Baso # (Auto) Abs Immat Gran (auto) Absolute Neuts (auto) Cancelled Absolute Nucleated RBC Nucleated RBC % (auto) Sodium Potassium Chloride Carbon Dioxide Anion Gap BUN Creatinine 0.71 Estim Creat Clear Calc 90.4 Estimated GFR > 60 POC Glucose 139 H Random Glucose Calcium Total Bilirubin AST ALT Alkaline Phosphatase Total Protein Albumin 11/12/21 11/12/21 11/13/21 08:27 08:27 08:22 WBC 6.9 RBC 3.88 L Hgb 12.1 Hct 36.6 L MCV 94.3 MCH 31.2 MCHC 33.1 RDW 17.4 H Plt Count 339 MPV 10.5 Immature Gran % (Auto) 0.7 H Neut % (Auto) 71.2 Lymph % (Auto) 23.1 [place] % (Auto) 4.3 Eos % (Auto) 0.3 Baso % (Auto) 0.4 Lymph # (Auto) 1.6 [place] # (Auto) 0.3 Eos # (Auto) 0.0 Baso # (Auto) 0.0 Abs Immat Gran (auto) 0.05 H Absolute Neuts (auto) 4.9 Absolute Nucleated RBC 0.000 Nucleated RBC % (auto) 0.0 Sodium 139 Potassium 4.2 Chloride 106 Carbon Dioxide 20 L Anion Gap 17 BUN 11 Creatinine 0.72 Estim Creat Clear Calc 89.1 Estimated GFR > 60 POC Glucose 126 H Random Glucose 163 H Calcium 9.7 Total Bilirubin 0.5 AST 19 D ALT 30 Alkaline Phosphatase 94 Total Protein 6.6 Albumin 4.2 Medications Medications Current Medications Acetaminophen (Acetaminophen 325 Mg Tablet) 650 mg PO Q6H PRN PRN Reason: Headache/Pain Mild Scale (1-3) Al Hydroxide/Mg Hydroxide (Magnesium Hydrox/Alum Hydrox 30 Ml Oral.Susp) 30 ml PO Q6H PRN PRN Reason: Heartburn/Nausea Last Admin: 10/02/21 14:41 Dose: 30 ml Documented by: Ascorbic Acid (Ascorbic Acid 500 Mg Tablet) 1,000 mg PO DAILY [facility] Last Admin: 11/13/21 08:07 Dose: 1,000 mg Documented by: Atorvastatin Calcium (Atorvastatin Calcium 10 Mg Tablet) 5 mg PO BEDTIME [facility] Last Admin: 11/12/21 21:19 Dose: 5 mg Documented by: Bupropion HCl (Bupropion Hcl 100 Mg Tablet) 100 mg PO DAILY [facility] Last Admin: 11/13/21 08:09 Dose: 100 mg Documented by: Clonidine HCl (Clonidine Hcl 0.1 Mg Tablet) 0.1 mg PO BID [facility]; Protocol Clozapine (Clozapine 100 Mg Tablet) 150 mg PO BID [facility] Last Admin: 11/13/21 08:07 Dose: 150 mg Documented by: Cyanocobalamin (Cyanocobalamin (Vitamin B-12) 1,000 Mcg Tablet) 1,000 mcg PO DAILY [facility] Last Admin: 11/13/21 08:07 Dose: 1,000 mcg Documented by: Docusate Sodium (Docusate Sodium 100 Mg Capsule) 200 mg PO BEDTIME [facility] Last Admin: 11/12/21 21:20 Dose: 200 mg Documented by: Enoxaparin Sodium (Enoxaparin Sodium 40 Mg/0.4 Ml Syringe) 40 mg SUBCUT Q24H [facility] Last Admin: 11/13/21 11:37 Dose: 40 mg Documented by: Ferrous Sulfate (Ferrous Sulfate 324 Mg Tablet.Dr) 324 mg PO DAILY [facility] Last Admin: 11/13/21 08:09 Dose: 324 mg Documented by: Hydroxyzine HCl (Hydroxyzine Hcl 25 Mg Tablet) 25 mg PO BEDTIME PRN PRN Reason: Anxiety Last Admin: 10/31/21 02:30 Dose: 25 mg Documented by: Lorazepam (Lorazepam 1 Mg Tablet) 1 mg PO BID [facility] Last Admin: 11/13/21 08:07 Dose: 1 mg Documented by: Losartan Potassium (Losartan Potassium 25 Mg Tablet) 25 mg PO DAILY [facility]; Protocol Last Admin: 11/13/21 08:09 Dose: 25 mg Documented by: Lurasidone HCl (Lurasidone Hcl 20 Mg Tablet) 60 mg PO 1800 [facility] Last Admin: 11/12/21 18:19 Dose: 60 mg Documented by: Magnesium Hydroxide (Milk Of Magnesia 30 Ml Oral.Susp) 30 ml PO DAILY PRN PRN Reason: Constipation Metformin HCl (Metformin Hcl 1,000 Mg Tablet) 1,000 mg PO BID [facility] Last Admin: 11/13/21 08:09 Dose: 1,000 mg Documented by: Multivitamins/Vitamin C (Multivitamin Tablet) 1 tab PO DAILY [facility] Last Admin: 11/13/21 08:09 Dose: 1 tab Documented by: Neomycin/Polymyxin/Bacitracin (Neomy/Polymyx/Bacit/Ointment 14 Gm Tube) 1 gm TOPICAL BID [facility]; Protocol Last Admin: 11/13/21 10:12 Dose: Not Given Documented by: Non-Formulary Medication (Cinnamon) 1,000 mg PO DAILY [facility] Last Admin: 11/13/21 08:07 Dose: 1,000 mg Documented by: Patient Own Medication ( Empagliflozin 10 Mg) 1 each PO DAILY [facility] Last Admin: 11/13/21 08:07 Dose: 1 each Documented by: Omeprazole (Omeprazole 20 Mg Capsule.Dr) 20 mg PO DAILY@0630 [facility] Last Admin: 11/13/21 06:17 Dose: 20 mg Documented by: Ondansetron HCl (Ondansetron Odt 8 Mg Tab.Rapdis) 8 mg TRANSLINGU Q8H PRN PRN Reason: nausea Polyethylene Glycol (Polyethylene Glycol 3350 17 Gm Powd.Pack) 17 gm PO DAILY PRN PRN Reason: Constipation Last Admin: 11/06/21 12:24 Dose: 17 gm Documented by: Prazosin HCl (Prazosin Hcl 1 Mg Capsule) 1 mg PO BEDTIME PRN; Protocol PRN Reason: nightmares Last Admin: 10/30/21 21:53 Dose: 1 mg Documented by: Trazodone HCl (Trazodone Hcl 50 Mg Tablet) 50 mg PO BEDTIME PRN PRN Reason: Insomnia Last Admin: 11/05/21 22:49 Dose: 50 mg Documented by: Vitamin D (Cholecalciferol (Vitamin D3) 10 Mcg Tablet) 10 mcg PO DAILY [facility] Last Admin: 11/13/21 08:07 Dose: 10 mcg Documented by: Allergies Allergies Allergy/AdvReac Type Severity Reaction Status Date / Time lisinopril [LISINOPRIL] Allergy Unknown SWOLLEN Verified 09/17/21 08:42 LIPS, angioedema, swelling Assessment & Plan Assessment & Plan (1) Schizoaffective disorder: Status: Acute Code(s): F25.9 - Schizoaffective disorder, unspecified (2) Invasive ductal carcinoma of right breast: Status: Acute Code(s): C50.911 - Malignant neoplasm of unspecified site of right female breast (3) Hypertension: Qualifiers: Hypertension type: essential hypertension Qualified Code(s): I10 - Essential (primary) hypertension Status: Acute Code(s): I10 - Essential (primary) hypertension (4) Hypercholesterolemia: Status: Acute Code(s): E78.00 - Pure hypercholesterolemia, unspecified (5) Type 2 diabetes mellitus with hyperglycemia: Qualifiers: Diabetes mellitus chcf insulin use: without chcf use Qualified Code(s): E11.65 - Type 2 diabetes mellitus with hyperglycemia Status: Acute Code(s): E11.65 - Type 2 diabetes mellitus with hyperglycemia Assessment and Plan: Continue metformin Jardiance monitor point of care (6) GERD (gastroesophageal reflux disease): Qualifiers: Esophagitis presence: without esophagitis Qualified Code(s): K21.9 - Gastro-esophageal reflux disease without esophagitis Status: Acute Code(s): K21.9 - Gastro-esophageal reflux disease without esophagitis Plan 50 yo female, hx of schizoaffective disorder, depressed with R breast cancer, having just completed first cycle of chemotherapy. Pt's partner and sister report to crisis team that pt has had a significant mental status change with psychotic symptoms, paranoia, perceptual alterations, poor sleep and significant thought blocking. Pt denies SI, HI. Today she is a very poor historian-almost pre-catatonic at times, considering signing a three day notice of intent. Team report by history she may not be comfortable in this facility. Assessment plan for 09/21/2021 Continue current medical treatment elevated white blood count noted over the past month question related to cancer treatment. No evidence of infection Patient depressed withdrawn preoccupied patient with recent treatment for ductal carcinoma stress of this might certainly lead to depressive almost catatonic episode 09/22/21 Pt with thought blocking improved from yeterday have restarted wellbutin hosp did not have sr cont clozapine evaluate baseline denies self harm oob more 09/23/21 Continue current plan of care. Collateral contacts with OP team, oncology. 09/24/21 Increase Abilify to 30 mg daily Pt currently refusing Lorazepam TDN expires 09/25/21-will file for civil commitment if pt persists in wanting discharge 09/25/21 Civil commitment filing completed Continue current regime. 09/26/21 Continue current regime 09/27/32 Decrease Abilify to 20 mg daily Risperdal 1.5 mg HS 09/28/21 Continue plan as above 09/29/21 No changes 09/30/21 Court 10/01/21 Chemotherapy 10/01/21 Increase Risperdal to 2.5 mg HS Decrease Abilify to 10 mg daily 10/02/21 Tolerating change back to Abilify from Risperdal Appetite is improved. Calmer, more visable, however continues with paranoia Jardiance ordered from [facility] pharmacy 10/03/21 Increase Abilify to 30 mg daily Will pursue validation of pt's HCP for continued chemotherapy Tentative chemotherapy 10/09. 10/04/21 Continue current regime 10/05 no changes to current regimen 10/06 no changes to current regimen 10/07/21 No positive effect from increase in Abilify Increase Clozaril to 100 mg bid, an increase of 50 mg daily, divided. Chemotherapy 10/09/21, Labs 10/08/21. 10/08/21 Tolerating Clozaril increase thus far Dexamethasone 4 mg hs and 4 mg a.m. pre chemo per Dr. Mora Support, encourage 10/09/21 Continue current plan of care 10/10/21 Continue current plan of care 10/11/21 Continue current plan. Will re-eval for Clozaril increase next week. 10/12/2021: Continue current regimen and plans. No changes were made today 10/13/2021: Continue current plans and regimen. 10/14/21: Increase Clozaril to 125 mg bid EKG, CBCD, CMP 10/15 prior to chemotherapy 10/15/21: Continue current plan of care 10/16/21: Continue current plan. Tolerating Clozaril increase 10/17/21: Continue current regime. 10/18/21: Increase Clozaril to 150 mg bid Decrease Abilify to 20 mg daily ECT Consult 10/19/21: continue meds unchanged 10/20/21: pt continue to present as paranoid, withdrawn 10/21/21: Continue current regime. Labs/EKG 10/22. Some improvement today. 10/22/21: Labs/EKG WNL Meeting 10/24 with health care proxy's to discuss clozaril discontinuation ECT Consult 10/24/21: Continue current plan. 10/25/21: Continue current plan. 10/26: ECT may be indicated. Change Ativan to standing dose. 10/27 Increase Ativan to 1 mg TID and watch for sedation 10/28/21: CBCD, CMP, EKG 10/29/21 in preparation for chemotherapy Await Clozapine level results. 10/29/21: ECT consult 10/30 Chemotherapy 10/30 Await Clozapine level results. Tentative plan to taper Abilify, titrate Latuda. Family/HCP in agreement. Pt agrees as well. 10/30/21: Decrease Abilify to 10 mg daily to prepare to begin Latuda 10/31/21: Continue current plan. 11/01/21: Discontinue Abilify Latuda 20 mg 1800 11/02/21: Continue current treatment plan 11/03/21: Continue current treatment plan 11/04/21: Tolerating Latuda. Pt asks not to titrate yet. Some improvement noted. 11/05/21: Chemotherapy 11/06. Ready to titrate Latuda-family will discuss with pt. Thus far, a positive result, without adverse effect. EKG reading pending Sister will not be taking pt to chemotherapy on 11/06 as her son has tested positive for COVID this afternoon. Partner Kailey will accompany pt. along with team. 11/06/21: Increase Latuda to 40 mg daily after evening meal. Increase Colace to 200 mg hs Miralax prn Per nursing report, pt will no longer need steroid dosing on Tuesdays before chemotherapy, but will receive dosing on Wednesdays in the chemotherapy dept. 11/07/21: Continue current plan. 11/08/21: Change Lorazepam prn to 1 mg bid 11/09/21: Tolerating Lorazepam. Continue plan of care. 11/10/21: Considering Latuda increase. 11/11/21: Increase Latuda to 60 mg daily. Labs pre chemotherapy. 11/13/21: Begin [place]-3 to address possible chemotherapy induced brain fog. I spent minutes with the patient and/or on the patient floor today, greater than?50% of which was spent counseling/coordinating care. Patient educated on: medication risk/benefits and therapeutic strategies Guardian/Caregiver educated on: medication risk/benefits and therapeutic strategies Informed Consent: understands and further education needed Reason for contiued inpatient stay Substantial Risk for: harm to self, inability to function, rapid decompensation and med/psych decompensation
[2021-11-13 18:00] VITALS: BP 136/94; PULSE 114; RESP 16; TEMP 36.1
[2021-11-13] MEDS: Lurasidone HCl 20 MG TABLET 60 MG PO (18:32)
[2021-11-13] MEDS: Atorvastatin Calcium 10 MG TABLET 5 MG PO (20:45)
[2021-11-13] MEDS: Docusate Sodium 100 MG CAPSULE 200 MG PO (20:45)
[2021-11-14 07:00] VITALS: BMI 30.7
[2021-11-14] MEDS: Omeprazole 20 MG CAPSULE.DR PO (07:11)
[2021-11-14] MEDS: Ascorbic Acid 500 MG TABLET 1000 MG PO (08:28)
[2021-11-14] MEDS: buPROPion HCL 100 MG TABLET PO (08:28)
[2021-11-14] MEDS: LORazepam 1 MG TABLET PO ×2 (08:29→20:59)
[2021-11-14] MEDS: Ferrous Sulfate 324 MG TABLET.DR PO (08:29)
[2021-11-14] MEDS: Cholecalciferol (Vitamin D3) 10 MCG TABLET PO (08:29)
[2021-11-14] MEDS: cloNIDine HCL 0.1 MG TABLET PO ×2 (08:29→20:58)
[2021-11-14] MEDS: Losartan Potassium 25 MG TABLET PO (08:29)
[2021-11-14] MEDS: Multivitamin TABLET 1 TAB PO (08:29)
[2021-11-14] MEDS: Cyanocobalamin (Vitamin B-12) 1,000 MCG TABLET 1000 MCG PO (08:29)
[2021-11-14] MEDS: metFORMIN HCl 1,000 MG TABLET 1000 MG PO ×2 (08:30→21:00)
[2021-11-14] MEDS: cloZAPine 100 MG TABLET 150 MG PO ×2 (08:30→20:58)
[2021-11-14 08:36] VITALS: BP 121/76; PULSE 103; RESP 16; TEMP 36.1; O2SAT 99
[2021-11-14 08:46] LABS: Glucose, Whole Blood 118 mg/dL (60-115)
[2021-11-14] MEDS: Enoxaparin Sodium 40 MG/0.4 ML SYRINGE SUBCUT (12:12)
--- NOTE | 2021-11-14 17:44 | P.PNPSI_ITS ---
Subjective Subjective Date of Service: 11/14/21 Reason For Visit: Depression paranoia Subjective Notes: [employer] Healthcare Proxy: Yes Guardianship: No Medical Problems Affecting Mental Status: No Interim History: Team continues to report L sided facial edema upon awakening which appears to resolve. Sister reports no sx today when visiting. Pt denies feeling edema, denies pain. Both report today is a good day and pt is feeling improved, asking about going home. No issues with initiating [facility]. Pt talks today about going to [facility]. Team report pt today is responsive with good humor and initiates conversation with all. Pt asks what are her criteria for discharge. 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 Medication Compliance: Yes Side effects from medications: No Attending Groups: Yes Review of Systems Chemotherapy phase II Medical Review of Systems: unchanged Review of Systems Psychiatric: Reports anxiety, Reports depression, Reports difficulty concentrating, Reports anhedonia, Reports paranoia, Reports hallucinations and Reports suicidal ideation (denies) Mental Status Exam Mental Status Exam Patient Appearance: Appropriate Patient Orientation: Person, Place, Time and Situation Level of Consciousness: Alert Patient Behavior: Guarded, Talkative and Good Eye Contact Mood Description: Flat Affect Description: Flat Patient Cognition Impaired: No Ability to Follow Directions: Good Speech Pattern: Perseverating, Spontaneous Speech, Soft-Spoken and Long Pauses (present, but decreasing) Memory Description: Episodic Impaired Hallucinations: None Delusions: Paranoid Ideation Perceptual Disturbances: Depersonalization and Derealization Thought Process: Distracted and Rumination Thought Content: positive for Slaughters, positive for Perseveration, positive for Thought Blocking (present but decreased), positive for Suicidal Ideation (denies) and positive for Homicidal Ideation (denies) Depressive Symptoms: Diff. Making Decisions, Difficulty Sleeping, Feelings of Guilt, Thoughts of /Suicide (denies), Low Self Esteem and Difficulty Concentrating (reports mild improvement) Abnormal Motor Activity Signs and Symptoms: Psychomotor Retardation (improving) Judgement: Fair Diagnostics Vital Signs (24Hr): Vital Signs - 24 hr 11/13/21 18:00 11/14/21 08:36 Temperature 97 F 97.0 F Pulse Rate 114 H 103 H Respiratory Rate 16 16 Blood Pressure 136/94 H 121/76 Pulse Oximetry 99 BMI result Body Mass Index 30.7 Labs Results: 11/12/21 08:27 11/12/21 08:27 Labs: Laboratory Results - last 48 hr 11/13/21 11/14/21 08:22 08:43 POC Glucose 126 H 118 H Medications Medications Current Medications Acetaminophen (Acetaminophen 325 Mg Tablet) 650 mg PO Q6H PRN PRN Reason: Headache/Pain Mild Scale (1-3) Al Hydroxide/Mg Hydroxide (Magnesium Hydrox/Alum Hydrox 30 Ml Oral.Susp) 30 ml PO Q6H PRN PRN Reason: Heartburn/Nausea Last Admin: 10/02/21 14:41 Dose: 30 ml Documented by: Ascorbic Acid (Ascorbic Acid 500 Mg Tablet) 1,000 mg PO DAILY COUNTS INCLUDE 234 BEDS AT THE [facility] Last Admin: 11/14/21 08:28 Dose: 1,000 mg Documented by: Atorvastatin Calcium (Atorvastatin Calcium 10 Mg Tablet) 5 mg PO BEDTIME COUNTS INCLUDE 234 BEDS AT THE [facility] Last Admin: 11/13/21 20:45 Dose: 5 mg Documented by: Bupropion HCl (Bupropion Hcl 100 Mg Tablet) 100 mg PO DAILY COUNTS INCLUDE 234 BEDS AT THE [facility] Last Admin: 11/14/21 08:28 Dose: 100 mg Documented by: Clonidine HCl (Clonidine Hcl 0.1 Mg Tablet) 0.1 mg PO BID COUNTS INCLUDE 234 BEDS AT THE [facility]; Protocol Last Admin: 11/14/21 08:29 Dose: 0.1 mg Documented by: Clozapine (Clozapine 100 Mg Tablet) 150 mg PO BID COUNTS INCLUDE 234 BEDS AT THE [facility] Last Admin: 11/14/21 08:30 Dose: 150 mg Documented by: Cyanocobalamin (Cyanocobalamin (Vitamin B-12) 1,000 Mcg Tablet) 1,000 mcg PO DAILY COUNTS INCLUDE 234 BEDS AT THE [facility] Last Admin: 11/14/21 08:29 Dose: 1,000 mcg Documented by: Docusate Sodium (Docusate Sodium 100 Mg Capsule) 200 mg PO BEDTIME COUNTS INCLUDE 234 BEDS AT THE [facility] Last Admin: 11/13/21 20:45 Dose: 200 mg Documented by: Enoxaparin Sodium (Enoxaparin Sodium 40 Mg/0.4 Ml Syringe) 40 mg SUBCUT Q24H COUNTS INCLUDE 234 BEDS AT THE [facility] Last Admin: 11/14/21 12:12 Dose: 40 mg Documented by: Ferrous Sulfate (Ferrous Sulfate 324 Mg Tablet.) 324 mg PO DAILY COUNTS INCLUDE 234 BEDS AT THE [facility] Last Admin: 11/14/21 08:29 Dose: 324 mg Documented by: Hydroxyzine HCl (Hydroxyzine Hcl 25 Mg Tablet) 25 mg PO BEDTIME PRN PRN Reason: Anxiety Last Admin: 10/31/21 02:30 Dose: 25 mg Documented by: Lorazepam (Lorazepam 1 Mg Tablet) 1 mg PO BID COUNTS INCLUDE 234 BEDS AT THE [facility] Last Admin: 11/14/21 08:29 Dose: 1 mg Documented by: Losartan Potassium (Losartan Potassium 25 Mg Tablet) 25 mg PO DAILY COUNTS INCLUDE 234 BEDS AT THE [facility]; Protocol Last Admin: 11/14/21 08:29 Dose: 25 mg Documented by: Lurasidone HCl (Lurasidone Hcl 20 Mg Tablet) 60 mg PO 1800 COUNTS INCLUDE 234 BEDS AT THE [facility] Last Admin: 11/13/21 18:32 Dose: 60 mg Documented by: Magnesium Hydroxide (Milk Of Magnesia 30 Ml Oral.Susp) 30 ml PO DAILY PRN PRN Reason: Constipation Metformin HCl (Metformin Hcl 1,000 Mg Tablet) 1,000 mg PO BID COUNTS INCLUDE 234 BEDS AT THE [facility] Last Admin: 11/14/21 08:30 Dose: 1,000 mg Documented by: Multivitamins/Vitamin C (Multivitamin Tablet) 1 tab PO DAILY COUNTS INCLUDE 234 BEDS AT THE [facility] Last Admin: 11/14/21 08:29 Dose: 1 tab Documented by: Neomycin/Polymyxin/Bacitracin (Neomy/Polymyx/Bacit/Ointment 14 Gm Tube) 1 gm TOPICAL BID COUNTS INCLUDE 234 BEDS AT THE [facility]; Protocol Last Admin: 11/14/21 08:51 Dose: Not Given Documented by: Non-Formulary Medication (Cinnamon) 1,000 mg PO DAILY COUNTS INCLUDE 234 BEDS AT THE [facility] Last Admin: 11/14/21 08:28 Dose: 1,000 mg Documented by: Patient Own Medication ( Empagliflozin 10 Mg) 1 each PO DAILY COUNTS INCLUDE 234 BEDS AT THE [facility] Last Admin: 11/14/21 08:28 Dose: 1 each Documented by: Patient Own Medication (Dwayne Red Softgels) 1 each PO DAILY COUNTS INCLUDE 234 BEDS AT THE [facility] Last Admin: 11/14/21 09:33 Dose: 1 each Documented by: Omeprazole (Omeprazole 20 Mg Capsule.) 20 mg PO DAILY@0630 COUNTS INCLUDE 234 BEDS AT THE [facility] Last Admin: 11/14/21 07:11 Dose: 20 mg Documented by: Ondansetron HCl (Ondansetron Odt 8 Mg Tab.Rapdis) 8 mg TRANSLINGU Q8H PRN PRN Reason: nausea Polyethylene Glycol (Polyethylene Glycol 3350 17 Gm Powd.Pack) 17 gm PO DAILY PRN PRN Reason: Constipation Last Admin: 11/06/21 12:24 Dose: 17 gm Documented by: Prazosin HCl (Prazosin Hcl 1 Mg Capsule) 1 mg PO BEDTIME PRN; Protocol PRN Reason: nightmares Last Admin: 10/30/21 21:53 Dose: 1 mg Documented by: Trazodone HCl (Trazodone Hcl 50 Mg Tablet) 50 mg PO BEDTIME PRN PRN Reason: Insomnia Last Admin: 11/05/21 22:49 Dose: 50 mg Documented by: Vitamin D (Cholecalciferol (Vitamin D3) 10 Mcg Tablet) 10 mcg PO DAILY MYRTLE Last Admin: 11/14/21 08:29 Dose: 10 mcg Documented by: Allergies Allergies Allergy/AdvReac Type Severity Reaction Status Date / Time lisinopril [LISINOPRIL] Allergy Unknown SWOLLEN Verified 09/17/21 08:42 LIPS, angioedema, swelling Assessment & Plan Assessment & Plan (1) Schizoaffective disorder: Status: Acute Code(s): F25.9 - Schizoaffective disorder, unspecified (2) Invasive ductal carcinoma of right breast: Status: Acute Code(s): C50.911 - Malignant neoplasm of unspecified site of right female breast (3) Hypertension: Qualifiers: Hypertension type: essential hypertension Qualified Code(s): I10 - Essential (primary) hypertension Status: Acute Code(s): I10 - Essential (primary) hypertension (4) Hypercholesterolemia: Status: Acute Code(s): E78.00 - Pure hypercholesterolemia, unspecified (5) Type 2 diabetes mellitus with hyperglycemia: Qualifiers: Diabetes mellitus termite treater insulin use: without termite treater use Qualified Code(s): E11.65 - Type 2 diabetes mellitus with hyperglycemia Status: Acute Code(s): E11.65 - Type 2 diabetes mellitus with hyperglycemia Assessment and Plan: Continue metformin Jardiance monitor point of care (6) GERD (gastroesophageal reflux disease): Qualifiers: Esophagitis presence: without esophagitis Qualified Code(s): K21.9 - Gastro-esophageal reflux disease without esophagitis Status: Acute Code(s): K21.9 - Gastro-esophageal reflux disease without esophagitis Plan 50 yo female, hx of schizoaffective disorder, depressed with R breast cancer, having just completed first cycle of chemotherapy. Pt's partner and sister report to crisis team that pt has had a significant mental status change with psychotic symptoms, paranoia, perceptual alterations, poor sleep and significant thought blocking. Pt denies SI, HI. Today she is a very poor historian-almost pre-catatonic at times, considering signing a three day notice of intent. Team report by history she may not be comfortable in this facility. Assessment plan for 09/21/2021 Continue current medical treatment elevated white blood count noted over the past month question related to cancer treatment. No evidence of infection Patient depressed withdrawn preoccupied patient with recent treatment for ductal carcinoma stress of this might certainly lead to depressive almost catatonic episode 09/22/21 Pt with thought blocking improved from yeterday have restarted wellbutin hosp did not have sr cont clozapine evaluate baseline denies self harm oob more 09/23/21 Continue current plan of care. Collateral contacts with OP team, oncology. 09/24/21 Increase Abilify to 30 mg daily Pt currently refusing Lorazepam TDN expires 09/25/21-will file for civil commitment if pt persists in wanting disc harge 09/25/21 Civil commitment filing completed Continue current regime. 09/26/21 Continue current regime 09/27/32 Decrease Abilify to 20 mg daily Risperdal 1.5 mg HS 09/28/21 Continue plan as above 09/29/21 No changes 09/30/21 Court 10/01/21 Chemotherapy 10/01/21 Increase Risperdal to 2.5 mg HS Decrease Abilify to 10 mg daily 10/02/21 Tolerating change back to Abilify from Risperdal Appetite is improved. Calmer, more visable, however continues with paranoia Jardiance ordered from [facility] 10/03/21 Increase Abilify to 30 mg daily Will pursue validation of pt's HCP for continued chemotherapy Tentative chemotherapy 10/09. 10/04/21 Continue current regime 10/05 no changes to current regimen 10/06 no changes to current regimen 10/07/21 No positive effect from increase in Abilify Increase Clozaril to 100 mg bid, an increase of 50 mg daily, divided. Chemotherapy 10/09/21, Labs 10/08/21. 10/08/21 Tolerating Clozaril increase thus far Dexamethasone 4 mg hs and 4 mg a.m. pre chemo per Dr. Mora Support, encourage 10/09/21 Continue current plan of care 10/10/21 Continue current plan of care 10/11/21 Continue current plan. Will re-eval for Clozaril increase next week. 10/12/2021: Continue current regimen and plans. No changes were made today 10/13/2021: Continue current plans and regimen. 10/14/21: Increase Clozaril to 125 mg bid EKG, CBCD, CMP 10/15 prior to chemotherapy 10/15/21: Continue current plan of care 10/16/21: Continue current plan. Tolerating Clozaril increase 10/17/21: Continue current regime. 10/18/21: Increase Clozaril to 150 mg bid Decrease Abilify to 20 mg daily ECT Consult 10/19/21: continue meds unchanged 10/20/21: pt continue to present as paranoid, withdrawn 10/21/21: Continue current regime. Labs/EKG 10/22. Some improvement today. 10/22/21: Labs/EKG WNL Meeting 10/24 with health care proxy's to discuss clozaril discontinuation ECT Consult 10/24/21: Continue current plan. 10/25/21: Continue current plan. 10/26: ECT may be indicated. Change Ativan to standing dose. 10/27 Increase Ativan to 1 mg TID and watch for sedation 10/28/21: CBCD, CMP, EKG 10/29/21 in preparation for chemotherapy Await Clozapine level results. 10/29/21: ECT consult 10/30 Chemotherapy 10/30 Await Clozapine level results. Tentative plan to taper Abilify, titrate Latuda. Family/HCP in agreement. Pt agrees as well. 10/30/21: Decrease Abilify to 10 mg daily to prepare to begin Latuda 10/31/21: Continue current plan. 11/01/21: Discontinue Abilify Latuda 20 mg 1800 11/02/21: Continue current treatment plan 11/03/21: Continue current treatment plan 11/04/21: Tolerating Latuda. Pt asks not to titrate yet. Some improvement noted. 11/05/21: Chemotherapy 11/06. Ready to titrate Latuda-family will discuss with pt. Thus far, a positive result, without adverse effect. EKG reading pending Sister will not be taking pt to chemotherapy on 11/06 as her son has tested positive for COVID this afternoon. Partner Kailey will accompany pt. along with team. 11/06/21: Increase Latuda to 40 mg daily after evening meal. Increase Colace to 200 mg hs Miralax prn Per nursing report, pt will no longer need steroid dosing on Tuesdays before chemotherapy, but will receive dosing on Wednesdays in the chemotherapy dept. 11/07/21: Continue current plan. 11/08/21: Change Lorazepam prn to 1 mg bid 11/09/21: Tolerating Lorazepam. Continue plan of care. 11/10/21: Considering Latuda increase. 11/11/21: Increase Latuda to 60 mg daily. Labs pre chemotherapy. 11/12/21: Continue current plan. Care discussed with HCP Kailey- review of Ativan dosing, therapeutic Latuda dosing,pt's not understanding that her thought blocking, paranoia, belief that she will go to long-term are target sx for medication increase. 11/14/21: Continue current plan. Discharge planning with consistent improvement. I spent minutes with the patient and/or on the patient floor today, greater than?50% of which was spent counseling/coordinating care. Patient educated on: medication risk/benefits and therapeutic strategies Guardian/Caregiver educated on: medication risk/benefits Informed Consent: understands and further education needed Reason for contiued inpatient stay Substantial Risk for: harm to self, inability to function, rapid decompensation and med/psych decompensation
[2021-11-14] MEDS: Lurasidone HCl 20 MG TABLET 60 MG PO (17:55)
[2021-11-14 18:00] VITALS: BP 133/66; PULSE 110; RESP 20; TEMP 36.6; O2SAT 99
[2021-11-14] MEDS: Atorvastatin Calcium 10 MG TABLET 5 MG PO (20:57)
[2021-11-14] MEDS: Docusate Sodium 100 MG CAPSULE 200 MG PO (20:59)
[2021-11-15] MEDS: Omeprazole 20 MG CAPSULE.DR PO (06:22)
[2021-11-15 06:56] LABS: Glucose, Whole Blood 122 mg/dL (60-115)
[2021-11-15] MEDS: LORazepam 1 MG TABLET PO ×2 (08:03→20:37)
[2021-11-15] MEDS: cloZAPine 100 MG TABLET 150 MG PO ×2 (08:03→20:38)
[2021-11-15] MEDS: Ascorbic Acid 500 MG TABLET 1000 MG PO (08:03)
[2021-11-15] MEDS: Ferrous Sulfate 324 MG TABLET.DR PO (08:03)
[2021-11-15] MEDS: buPROPion HCL 100 MG TABLET PO (08:03)
[2021-11-15] MEDS: Losartan Potassium 25 MG TABLET PO (08:03)
[2021-11-15] MEDS: Cyanocobalamin (Vitamin B-12) 1,000 MCG TABLET 1000 MCG PO (08:03)
[2021-11-15] MEDS: Cholecalciferol (Vitamin D3) 10 MCG TABLET PO (08:03)
[2021-11-15] MEDS: metFORMIN HCl 1,000 MG TABLET 1000 MG PO ×2 (08:03→20:37)
[2021-11-15] MEDS: Multivitamin TABLET 1 TAB PO (08:03)
[2021-11-15] MEDS: cloNIDine HCL 0.1 MG TABLET PO ×2 (08:03→20:37)
[2021-11-15 08:11] VITALS: BP 101/65; PULSE 111; RESP 16; TEMP 36.7; O2SAT 100
[2021-11-15] MEDS: Enoxaparin Sodium 40 MG/0.4 ML SYRINGE SUBCUT (10:56)
--- NOTE | 2021-11-15 11:29 | HO.PSYCHPN ---
Subjective Subjective Date of Service: 11/15/21 Reason For Visit: Depression paranoia Subjective Notes: Section 8 Interim History: Per nursing, pt has been visible on the unit and attends some groups. Sleeping and eating well. Pt presents with somewhat constricted affect. Some delayed in response noted today. She reports feeling tired, which she physically appeared tired. She reports fair sleep last night. She denies SI/HI/VH/AH. No behavioral concerns. Medication Compliance: Yes Side effects from medications: No Review of Systems Review of Systems Constitutional : No Weight loss, No Fever, No Chills, No Fatigue, No Malaise ENT/Mouth : No sore throat, No Rhinorrhea Eyes: No Eye Pain, No Swelling, No Redness Cardiovascular : No Chest Pain, No SOB, No Dyspnea on Exertion, No Orthopnea, No Edema, No Palpitations Respiratory : No Cough, No Sputum, No Wheezing Gastrointestinal : No Nausea, No Vomiting, No Diarrhea, No Constipation, No abdominal Pain, No Hematochezia, No Melena Genitourinary : No Dysuria, No Urinary Frequency, No Hematuria, Musculoskeletal : No joint pain, No Myalgias, No Joint Swelling Skin : No Skin Lesions, No rash Neuro : No Weakness, No Numbness, No Dizziness, No Headache Psych : + Anxiety/Panic, + Depression All other systems reviewed and are negative Yes all other systems are reviewed and are negative and Unobtainable due to mental status Reports behavioral changes, Reports confusion and Reports memory loss Psychiatric: Reports abnormal sleep pattern (pt reports due to new room-mate), Reports anxiety, Reports behavioral changes, Reports confusion, Reports depression, Reports difficulty concentrating, Reports auditory hallucinations, Reports hopelessness, Reports anhedonia, Reports memory loss, Reports mood swings, Reports paranoia, Reports hallucinations, Reports homicidal ideation (denies) and Reports suicidal ideation (denies) Mental Status Exam Mental Status Exam Narrative: Patient Appearance:?Appropriate Patient Orientation:?Person, Place, Time and Situation Level of Consciousness:?Alert Patient Behavior:?Guarded, Cooperative, Passive, Suspicious, Timid, Anxious, Fearful, Avoidant, Fatigued, Distractible, Isolative and Good Eye Contact Mood Description:?Depressed Affect Description:?Flat Patient Cognition Impaired:?Yes Ability to Follow Directions:?Good Speech Pattern:?Spontaneous Speech Memory Description:?Episodic Impaired Hallucinations:?None Delusions:?Paranoid Ideation Perceptual Disturbances:?Depersonalization and Derealization Thought Process:?Distracted and Rumination Thought Content:?positive for [place], positive for Circumstantial, positive for Disorganized (per pt report) and positive for Suicidal Ideation Depressive Symptoms:?Increased Anxiety, Diff. Making Decisions, Loss of Int. in Activity, Feelings of Worthlessness, Hopelessness, Isolating-Friends/Family, Feelings of Guilt, Unhappiness, Increased Fatigue, Thoughts of /Suicide, Low Self Esteem, Loss of Energy and Difficulty Concentrating Judgement:?Poor Diagnostics Vital Signs (24Hr): Vital Signs - 24 hr 11/14/21 18:00 11/15/21 08:11 Temperature 97.9 F 98.1 F Pulse Rate 110 H 111 H Respiratory Rate 20 16 Blood Pressure 133/66 101/65 Pulse Oximetry 99 100 BMI result Body Mass Index 30.7 Labs Results: 11/12/21 08:27 11/12/21 08:27 Labs: Laboratory Results - last 48 hr 11/14/21 11/15/21 08:43 06:26 POC Glucose 118 H 122 H Medications Medications Current Medications Acetaminophen (Acetaminophen 325 Mg Tablet) 650 mg PO Q6H PRN PRN Reason: Headache/Pain Mild Scale (1-3) Al Hydroxide/Mg Hydroxide (Magnesium Hydrox/Alum Hydrox 30 Ml Oral.Susp) 30 ml PO Q6H PRN PRN Reason: Heartburn/Nausea Last Admin: 10/02/21 14:41 Dose: 30 ml Documented by: Ascorbic Acid (Ascorbic Acid 500 Mg Tablet) 1,000 mg PO DAILY [facility] Last Admin: 11/15/21 08:03 Dose: 1,000 mg Documented by: Atorvastatin Calcium (Atorvastatin Calcium 10 Mg Tablet) 5 mg PO BEDTIME [facility] Last Admin: 11/14/21 20:57 Dose: 5 mg Documented by: Bupropion HCl (Bupropion Hcl 100 Mg Tablet) 100 mg PO DAILY [facility] Last Admin: 11/15/21 08:03 Dose: 100 mg Documented by: Clonidine HCl (Clonidine Hcl 0.1 Mg Tablet) 0.1 mg PO BID [facility]; Protocol Last Admin: 11/15/21 08:03 Dose: 0.1 mg Documented by: Clozapine (Clozapine 100 Mg Tablet) 150 mg PO BID [facility] Last Admin: 11/15/21 08:03 Dose: 150 mg Documented by: Cyanocobalamin (Cyanocobalamin (Vitamin B-12) 1,000 Mcg Tablet) 1,000 mcg PO DAILY [facility] Last Admin: 11/15/21 08:03 Dose: 1,000 mcg Documented by: Docusate Sodium (Docusate Sodium 100 Mg Capsule) 200 mg PO BEDTIME [facility] Last Admin: 11/14/21 20:59 Dose: 200 mg Documented by: Enoxaparin Sodium (Enoxaparin Sodium 40 Mg/0.4 Ml Syringe) 40 mg SUBCUT Q24H [facility] Last Admin: 11/15/21 10:56 Dose: 40 mg Documented by: Ferrous Sulfate (Ferrous Sulfate 324 Mg Tablet.) 324 mg PO DAILY [facility] Last Admin: 11/15/21 08:03 Dose: 324 mg Documented by: Hydroxyzine HCl (Hydroxyzine Hcl 25 Mg Tablet) 25 mg PO BEDTIME PRN PRN Reason: Anxiety Last Admin: 10/31/21 02:30 Dose: 25 mg Documented by: Lorazepam (Lorazepam 1 Mg Tablet) 1 mg PO BID [facility] Last Admin: 11/15/21 08:03 Dose: 1 mg Documented by: Losartan Potassium (Losartan Potassium 25 Mg Tablet) 25 mg PO DAILY [facility]; Protocol Last Admin: 11/15/21 08:03 Dose: 25 mg Documented by: Lurasidone HCl (Lurasidone Hcl 20 Mg Tablet) 60 mg PO 1800 [facility] Last Admin: 11/14/21 17:55 Dose: 60 mg Documented by: Magnesium Hydroxide (Milk Of Magnesia 30 Ml Oral.Susp) 30 ml PO DAILY PRN PRN Reason: Constipation Metformin HCl (Metformin Hcl 1,000 Mg Tablet) 1,000 mg PO BID [facility] Last Admin: 11/15/21 08:03 Dose: 1,000 mg Documented by: Multivitamins/Vitamin C (Multivitamin Tablet) 1 tab PO DAILY [facility] Last Admin: 11/15/21 08:03 Dose: 1 tab Documented by: Neomycin/Polymyxin/Bacitracin (Neomy/Polymyx/Bacit/Ointment 14 Gm Tube) 1 gm TOPICAL BID [facility]; Protocol Last Admin: 11/15/21 08:37 Dose: Not Given Documented by: Non-Formulary Medication (Cinnamon) 1,000 mg PO DAILY [facility] Last Admin: 11/15/21 08:02 Dose: 1,000 mg Documented by: Patient Own Medication ( Empagliflozin 10 Mg) 1 each PO DAILY [facility] Last Admin: 11/15/21 08:02 Dose: 1 each Documented by: Patient Own Medication (Dwayne Red Softgels) 1 each PO DAILY [facility] Last Admin: 11/15/21 08:02 Dose: 1 each Documented by: Omeprazole (Omeprazole 20 Mg Capsule.) 20 mg PO DAILY@0630 [facility] Last Admin: 11/15/21 06:22 Dose: 20 mg Documented by: Ondansetron HCl (Ondansetron Odt 8 Mg Tab.Rapdis) 8 mg TRANSLINGU Q8H PRN PRN Reason: nausea Polyethylene Glycol (Polyethylene Glycol 3350 17 Gm Powd.Pack) 17 gm PO DAILY PRN PRN Reason: Constipation Last Admin: 11/06/21 12:24 Dose: 17 gm Documented by: Prazosin HCl (Prazosin Hcl 1 Mg Capsule) 1 mg PO BEDTIME PRN; Protocol PRN Reason: nightmares Last Admin: 10/30/21 21:53 Dose: 1 mg Documented by: Trazodone HCl (Trazodone Hcl 50 Mg Tablet) 50 mg PO BEDTIME PRN PRN Reason: Insomnia Last Admin: 11/05/21 22:49 Dose: 50 mg Documented by: Vitamin D (Cholecalciferol (Vitamin D3) 10 Mcg Tablet) 10 mcg PO DAILY [facility] Last Admin: 11/15/21 08:03 Dose: 10 mcg Documented by: Allergies Allergies Allergy/AdvReac Type Severity Reaction Status Date / Time lisinopril [LISINOPRIL] Allergy Unknown SWOLLEN Verified 09/17/21 08:42 LIPS, angioedema, swelling Assessment & Plan Assessment & Plan (1) Schizoaffective disorder: Status: Acute Code(s): F25.9 - Schizoaffective disorder, unspecified (2) Invasive ductal carcinoma of right breast: Status: Acute Code(s): C50.911 - Malignant neoplasm of unspecified site of right female breast (3) Hypertension: Qualifiers: Hypertension type: essential hypertension Qualified Code(s): I10 - Essential (primary) hypertension Status: Acute Code(s): I10 - Essential (primary) hypertension (4) Hypercholesterolemia: Status: Acute Code(s): E78.00 - Pure hypercholesterolemia, unspecified (5) Type 2 diabetes mellitus with hyperglycemia: Qualifiers: Diabetes mellitus terminal gauger insulin use: without terminal gauger use Qualified Code(s): E11.65 - Type 2 diabetes mellitus with hyperglycemia Status: Acute Code(s): E11.65 - Type 2 diabetes mellitus with hyperglycemia Assessment and Plan: Continue metformin Jardiance monitor point of care (6) GERD (gastroesophageal reflux disease): Qualifiers: Esophagitis presence: without esophagitis Qualified Code(s): K21.9 - Gastro-esophageal reflux disease without esophagitis Status: Acute Code(s): K21.9 - Gastro-esophageal reflux disease without esophagitis Plan 50 yo female, hx of schizoaffective disorder, depressed with R breast cancer, having just completed first cycle of chemotherapy. Pt's partner and sister report to crisis team that pt has had a significant mental status change with psychotic symptoms, paranoia, perceptual alterations, poor sleep and significant thought blocking. Pt denies SI, HI. Today she is a very poor historian-almost pre-catatonic at times, considering signing a three day notice of intent. Team report by history she may not be comfortable in this facility. Assessment plan for 09/21/2021 Continue current medical treatment elevated white blood count noted over the past month question related to cancer treatment. No evidence of infection Patient depressed withdrawn preoccupied patient with recent treatment for ductal carcinoma stress of this might certainly lead to depressive almost catatonic episode 09/22/21 Pt with thought blocking improved from yeterday have restarted wellbutin hosp did not have sr cont clozapine evaluate baseline denies self harm oob more 09/23/21 Continue current plan of care. Collateral contacts with OP team, oncology. 09/24/21 Increase Abilify to 30 mg daily Pt currently refusing Lorazepam TDN expires 09/25/21-will file for civil commitment if pt persists in wanting discharge 09/25/21 Civil commitment filing completed Continue current regime. 09/26/21 Continue current regime 09/27/32 Decrease Abilify to 20 mg daily Risperdal 1.5 mg HS 09/28/21 Continue plan as above 09/29/21 No changes 09/30/21 Court 10/01/21 Chemotherapy 10/01/21 Increase Risperdal to 2.5 mg HS Decrease Abilify to 10 mg daily 10/02/21 Tolerating change back to Abilify from Risperdal Appetite is improved. Calmer, more visable, however continues with paranoia Jardiance ordered from [facility] pharmacy 10/03/21 Increase Abilify to 30 mg daily Will pursue validation of pt's HCP for continued chemotherapy Tentative chemotherapy 10/09. 10/04/21 Continue current regime 10/05 no changes to current regimen 10/06 no changes to current regimen 10/07/21 No positive effect from increase in Abilify Increase Clozaril to 100 mg bid, an increase of 50 mg daily, divided. Chemotherapy 10/09/21, Labs 10/08/21. 10/08/21 Tolerating Clozaril increase thus far Dexamethasone 4 mg hs and 4 mg a.m. pre chemo per Dr. Mora Support, encourage 10/09/21 Continue current plan of care 10/10/21 Continue current plan of care 10/11/21 Continue current plan. Will re-eval for Clozaril increase next week. 10/12/2021: Continue current regimen and plans. No changes were made today 10/13/2021: Continue current plans and regimen. 10/14/21: Increase Clozaril to 125 mg bid EKG, CBCD, CMP 10/15 prior to chemotherapy 10/15/21: Continue current plan of care 10/16/21: Continue current plan. Tolerating Clozaril increase 10/17/21: Continue current regime. 10/18/21: Increase Clozaril to 150 mg bid Decrease Abilify to 20 mg daily ECT Consult 10/19/21: continue meds unchanged 10/20/21: pt continue to present as paranoid, withdrawn 10/21/21: Continue current regime. Labs/EKG 10/22. Some improvement today. 10/22/21: Labs/EKG WNL Meeting 10/24 with health care proxy's to discuss clozaril discontinuation ECT Consult 10/24/21: Continue current plan. 10/25/21: Continue current plan. 10/26: ECT may be indicated. Change Ativan to standing dose. 10/27 Increase Ativan to 1 mg TID and watch for sedation 10/28/21: CBCD, CMP, EKG 10/29/21 in preparation for chemotherapy Await Clozapine level results. 10/29/21: ECT consult 10/30 Chemotherapy 10/30 Await Clozapine level results. Tentative plan to taper Abilify, titrate Latuda. Family/HCP in agreement. Pt agrees as well. 10/30/21: Decrease Abilify to 10 mg daily to prepare to begin Latuda 10/31/21: Continue current plan. 11/01/21: Discontinue Abilify Latuda 20 mg 1800 11/02/21: Continue current treatment plan 11/03/21: Continue current treatment plan 11/04/21: Tolerating Latuda. Pt asks not to titrate yet. Some improvement noted. 11/05/21: Chemotherapy 11/06. Ready to titrate Latuda-family will discuss with pt. Thus far, a positive result, without adverse effect. EKG reading pending Sister will not be taking pt to chemotherapy on 11/06 as her son has tested positive for COVID this afternoon. Partner Kailey will accompany pt. along with team. 11/06/21: Increase Latuda to 40 mg daily after evening meal. Increase Colace to 200 mg hs Miralax prn Per nursing report, pt will no longer need steroid dosing on Tuesdays before chemotherapy, but will receive dosing on Wednesdays in the chemotherapy dept. 11/07/21: Continue current plan. 11/08/21: Change Lorazepam prn to 1 mg bid 11/09/21: Tolerating Lorazepam. Continue plan of care. 11/10/21: Considering Latuda increase. 11/11/21: Increase Latuda to 60 mg daily. Labs pre chemotherapy. 11/12/21: Continue current plan. Care discussed with HCP Kailey- review of Ativan dosing, therapeutic Latuda dosing,pt's not understanding that her thought blocking, paranoia, belief that she will go to care home are target sx for medication increase. 11/14/21: Continue current plan. Discharge planning with consistent improvement. 11/15/21: continue current medications per primary treatment team. I spent ___25___ minutes with the patient and/or on the patient floor today, greater than?50% of which was spent counseling/coordinating care. Reason for contiued inpatient stay Substantial Risk for: inability to function
[2021-11-15] MEDS: Docusate Sodium 100 MG CAPSULE 200 MG PO (20:37)
[2021-11-15] MEDS: Atorvastatin Calcium 10 MG TABLET 5 MG PO (20:39)
[2021-11-15] MEDS: Lurasidone HCl 20 MG TABLET 60 MG PO (20:42)
[2021-11-16 06:00] VITALS: BP 121/83; PULSE 122; RESP 18; TEMP 36.2; O2SAT 98
[2021-11-16] MEDS: Omeprazole 20 MG CAPSULE.DR PO (06:16)
[2021-11-16 06:22] LABS: Glucose, Whole Blood 117 mg/dL (60-115)
[2021-11-16] MEDS: NeoMY/Polymyx/Bacit/Ointment 14 GM Tube TOPICAL (09:06)
[2021-11-16] MEDS: Losartan Potassium 25 MG TABLET PO (09:08)
[2021-11-16] MEDS: buPROPion HCL 100 MG TABLET PO (09:08)
[2021-11-16] MEDS: Multivitamin TABLET 1 TAB PO (09:08)
[2021-11-16] MEDS: Cholecalciferol (Vitamin D3) 10 MCG TABLET PO (09:08)
[2021-11-16] MEDS: metFORMIN HCl 1,000 MG TABLET 1000 MG PO ×2 (09:08→20:45)
[2021-11-16] MEDS: Ferrous Sulfate 324 MG TABLET.DR PO (09:08)
[2021-11-16] MEDS: LORazepam 1 MG TABLET PO ×2 (09:09→20:45)
[2021-11-16] MEDS: cloZAPine 100 MG TABLET 150 MG PO (09:09)
[2021-11-16] MEDS: cloNIDine HCL 0.1 MG TABLET PO ×2 (09:09→20:43)
[2021-11-16] MEDS: Ascorbic Acid 500 MG TABLET 1000 MG PO (09:09)
[2021-11-16] MEDS: Cyanocobalamin (Vitamin B-12) 1,000 MCG TABLET 1000 MCG PO (09:09)
[2021-11-16] MEDS: Enoxaparin Sodium 40 MG/0.4 ML SYRINGE SUBCUT (12:29)
[2021-11-16 16:58] VITALS: BP 130/80; PULSE 117; RESP 16; TEMP 36.6; O2SAT 98
[2021-11-16] MEDS: Lurasidone HCl 20 MG TABLET 60 MG PO (17:13)
[2021-11-16] MEDS: Atorvastatin Calcium 10 MG TABLET 5 MG PO (20:43)
[2021-11-16] MEDS: Docusate Sodium 100 MG CAPSULE 200 MG PO (20:44)
--- NOTE | 2021-11-16 21:27 | HO.PSYCHPN ---
Subjective Subjective Date of Service: 11/16/21 Reason For Visit: Depression paranoia Subjective Notes: [employer] Proxy: Yes Interim History: Patient increasingly depressed thought blocking withdrawn denies active self-harm but has thoughts wishes she were Mental Status Exam Mental Status Exam Narrative: Patient Appearance:?Appropriate Patient Orientation:?Person, Place, Time and Situation Level of Consciousness:?Alert Patient Behavior:?Guarded, Cooperative, Passive, Suspicious, Timid, Anxious, Fearful, Avoidant, Fatigued, Distractible, Isolative and Good Eye Contact Mood Description:?Depressed Affect Description:?Flat Patient Cognition Impaired:?Yes Ability to Follow Directions:?Good Speech Pattern:?slowed Memory Description:?Episodic Impaired Hallucinations:?None Delusions:?Paranoid Ideation Perceptual Disturbances:?Depersonalization and Derealization Thought Process:?Distracted and Rumination Thought Content:?positive for [place], positive for Circumstantial, positive for Disorganized (per pt report) and positive for Suicidal Ideation Depressive Symptoms:?Increased Anxiety, Diff. Making Decisions, Loss of Int. in Activity, Feelings of Worthlessness, Hopelessness, Isolating-Friends/Family, Feelings of Guilt, Unhappiness, Increased Fatigue, Thoughts of /Suicide, Low Self Esteem, Loss of Energy and Difficulty Concentrating Judgement:?Poor Diagnostics Vital Signs (24Hr): Vital Signs - 24 hr 11/16/21 06:00 11/16/21 16:58 Temperature 97.1 F 97.9 F Pulse Rate 122 H 117 H Respiratory Rate 18 16 Blood Pressure 121/83 130/80 Pulse Oximetry 98 98 BMI result Body Mass Index 30.7 Labs Results: 11/12/21 08:27 11/12/21 08:27 Labs: Laboratory Results - last 48 hr 11/15/21 11/16/21 06:26 06:15 POC Glucose 122 H 117 H Medications Medications Current Medications Acetaminophen (Acetaminophen 325 Mg Tablet) 650 mg PO Q6H PRN PRN Reason: Headache/Pain Mild Scale (1-3) Al Hydroxide/Mg Hydroxide (Magnesium Hydrox/Alum Hydrox 30 Ml Oral.Susp) 30 ml PO Q6H PRN PRN Reason: Heartburn/Nausea Last Admin: 10/02/21 14:41 Dose: 30 ml Documented by: Ascorbic Acid (Ascorbic Acid 500 Mg Tablet) 1,000 mg PO DAILY MYRTLE Last Admin: 11/16/21 09:09 Dose: 1,000 mg Documented by: Atorvastatin Calcium (Atorvastatin Calcium 10 Mg Tablet) 5 mg PO BEDTIME [facility] Last Admin: 11/16/21 20:43 Dose: 5 mg Documented by: Bupropion HCl (Bupropion Hcl 100 Mg Tablet) 100 mg PO DAILY [facility] Last Admin: 11/16/21 09:08 Dose: 100 mg Documented by: Clonidine HCl (Clonidine Hcl 0.1 Mg Tablet) 0.1 mg PO BID [facility]; Protocol Last Admin: 11/16/21 20:43 Dose: 0.1 mg Documented by: Clozapine (Clozapine 100 Mg Tablet) 150 mg PO BID [facility] Last Admin: 11/16/21 09:09 Dose: 150 mg Documented by: Cyanocobalamin (Cyanocobalamin (Vitamin B-12) 1,000 Mcg Tablet) 1,000 mcg PO DAILY [facility] Last Admin: 11/16/21 09:09 Dose: 1,000 mcg Documented by: Docusate Sodium (Docusate Sodium 100 Mg Capsule) 200 mg PO BEDTIME [facility] Last Admin: 11/16/21 20:44 Dose: 200 mg Documented by: Enoxaparin Sodium (Enoxaparin Sodium 40 Mg/0.4 Ml Syringe) 40 mg SUBCUT Q24H [facility] Last Admin: 11/16/21 12:29 Dose: 40 mg Documented by: Ferrous Sulfate (Ferrous Sulfate 324 Mg Tablet.Dr) 324 mg PO DAILY [facility] Last Admin: 11/16/21 09:08 Dose: 324 mg Documented by: Hydroxyzine HCl (Hydroxyzine Hcl 25 Mg Tablet) 25 mg PO BEDTIME PRN PRN Reason: Anxiety Last Admin: 10/31/21 02:30 Dose: 25 mg Documented by: Lorazepam (Lorazepam 1 Mg Tablet) 1 mg PO BID [facility] Last Admin: 11/16/21 20:45 Dose: 1 mg Documented by: Losartan Potassium (Losartan Potassium 25 Mg Tablet) 25 mg PO DAILY [facility]; Protocol Last Admin: 11/16/21 09:08 Dose: 25 mg Documented by: Lurasidone HCl (Lurasidone Hcl 20 Mg Tablet) 60 mg PO 1800 [facility] Last Admin: 11/16/21 17:13 Dose: 60 mg Documented by: Magnesium Hydroxide (Milk Of Magnesia 30 Ml Oral.Susp) 30 ml PO DAILY PRN PRN Reason: Constipation Metformin HCl (Metformin Hcl 1,000 Mg Tablet) 1,000 mg PO BID [facility] Last Admin: 11/16/21 20:45 Dose: 1,000 mg Documented by: Multivitamins/Vitamin C (Multivitamin Tablet) 1 tab PO DAILY [facility] Last Admin: 11/16/21 09:08 Dose: 1 tab Documented by: Neomycin/Polymyxin/Bacitracin (Neomy/Polymyx/Bacit/Ointment 14 Gm Tube) 1 gm TOPICAL BID [facility]; Protocol Last Admin: 11/16/21 20:49 Dose: Not Given Documented by: Non-Formulary Medication (Cinnamon) 1,000 mg PO DAILY [facility] Last Admin: 11/16/21 09:06 Dose: 1,000 mg Documented by: Patient Own Medication ( Empagliflozin 10 Mg) 1 each PO DAILY [facility] Last Admin: 11/16/21 09:07 Dose: 1 each Documented by: Patient Own Medication (Dwayne Red Softgels) 1 each PO DAILY [facility] Last Admin: 11/16/21 09:07 Dose: 1 each Documented by: Omeprazole (Omeprazole 20 Mg Capsule.Dr) 20 mg PO DAILY@0630 [facility] Last Admin: 11/16/21 06:16 Dose: 20 mg Documented by: Ondansetron HCl (Ondansetron Odt 8 Mg Tab.Rapdis) 8 mg TRANSLINGU Q8H PRN PRN Reason: nausea Polyethylene Glycol (Polyethylene Glycol 3350 17 Gm Powd.Pack) 17 gm PO DAILY PRN PRN Reason: Constipation Last Admin: 11/06/21 12:24 Dose: 17 gm Documented by: Prazosin HCl (Prazosin Hcl 1 Mg Capsule) 1 mg PO BEDTIME PRN; Protocol PRN Reason: nightmares Last Admin: 10/30/21 21:53 Dose: 1 mg Documented by: Trazodone HCl (Trazodone Hcl 50 Mg Tablet) 50 mg PO BEDTIME PRN PRN Reason: Insomnia Last Admin: 11/05/21 22:49 Dose: 50 mg Documented by: Vitamin D (Cholecalciferol (Vitamin D3) 10 Mcg Tablet) 10 mcg PO DAILY [facility] Last Admin: 11/16/21 09:08 Dose: 10 mcg Documented by: Allergies Allergies Allergy/AdvReac Type Severity Reaction Status Date / Time lisinopril [LISINOPRIL] Allergy Unknown SWOLLEN Verified 09/17/21 08:42 LIPS, angioedema, swelling Assessment & Plan Assessment & Plan (1) Schizoaffective disorder: Status: Acute Code(s): F25.9 - Schizoaffective disorder, unspecified (2) Invasive ductal carcinoma of right breast: Status: Acute Code(s): C50.911 - Malignant neoplasm of unspecified site of right female breast (3) Hypertension: Qualifiers: Hypertension type: essential hypertension Qualified Code(s): I10 - Essential (primary) hypertension Status: Acute Code(s): I10 - Essential (primary) hypertension (4) Hypercholesterolemia: Status: Acute Code(s): E78.00 - Pure hypercholesterolemia, unspecified (5) Type 2 diabetes mellitus with hyperglycemia: Qualifiers: 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: without detention use Qualified Code(s): E11.65 - Type 2 diabetes mellitus with hyperglycemia Status: Acute Code(s): E11.65 - Type 2 diabetes mellitus with hyperglycemia Assessment and Plan: Continue metformin Jardiance monitor point of care (6) GERD (gastroesophageal reflux disease): Qualifiers: Esophagitis presence: without esophagitis Qualified Code(s): K21.9 - Gastro-esophageal reflux disease without esophagitis Status: Acute Code(s): K21.9 - Gastro-esophageal reflux disease without esophagitis Plan 50 yo female, hx of schizoaffective disorder, depressed with R breast cancer, having just completed first cycle of chemotherapy. Pt's partner and sister report to crisis team that pt has had a significant mental status change with psychotic symptoms, paranoia, perceptual alterations, poor sleep and significant thought blocking. Pt denies SI, HI. Today she is a very poor historian-almost pre-catatonic at times, considering signing a three day notice of intent. Team report by history she may not be comfortable in this facility. Assessment plan for 09/21/2021 Continue current medical treatment elevated white blood count noted over the past month question related to cancer treatment. No evidence of infection Patient depressed withdrawn preoccupied patient with recent treatment for ductal carcinoma stress of this might certainly lead to depressive almost catatonic episode 09/22/21 Pt with thought blocking improved from yeterday have restarted wellbutin hosp did not have sr cont clozapine evaluate baseline denies self harm oob more 09/23/21 Continue current plan of care. Collateral contacts with OP team, oncology. 09/24/21 Increase Abilify to 30 mg daily Pt currently refusing Lorazepam TDN expires 09/25/21-will file for civil commitment if pt persists in wanting discharge 09/25/21 Civil commitment filing completed Continue current regime. 09/26/21 Continue current regime 09/27/32 Decrease Abilify to 20 mg daily Risperdal 1.5 mg HS 09/28/21 Continue plan as above 09/29/21 No changes 09/30/21 Court 10/01/21 Chemotherapy 10/01/21 Increase Risperdal to 2.5 mg HS Decrease Abilify to 10 mg daily 10/02/21 Tolerating change back to Abilify from Risperdal Appetite is improved. Calmer, more visable, however continues with paranoia Jardiance ordered from [facility] 10/03/21 Increase Abilify to 30 mg daily Will pursue validation of pt's HCP for continued chemotherapy Tentative chemotherapy 10/09. 10/04/21 Continue current regime 10/05 no changes to current regimen 10/06 no changes to current regimen 10/07/21 No positive effect from increase in Abilify Increase Clozaril to 100 mg bid, an increase of 50 mg daily, divided. Chemotherapy 10/09/21, Labs 10/08/21. 10/08/21 Tolerating Clozaril increase thus far Dexamethasone 4 mg hs and 4 mg a.m. pre chemo per Dr. Mora Support, encourage 10/09/21 Continue current plan of care 10/10/21 Continue current plan of care 10/11/21 Continue current plan. Will re-eval for Clozaril increase next week. 10/12/2021: Continue current regimen and plans. No changes were made today 10/13/2021: Continue current plans and regimen. 10/14/21: Increase Clozaril to 125 mg bid EKG, CBCD, CMP 10/15 prior to chemotherapy 10/15/21: Continue current plan of care 10/16/21: Continue current plan. Tolerating Clozaril increase 10/17/21: Continue current regime. 10/18/21: Increase Clozaril to 150 mg bid Decrease Abilify to 20 mg daily ECT Consult 10/19/21: continue meds unchanged 10/20/21: pt continue to present as paranoid, withdrawn 10/21/21: Continue current regime. Labs/EKG 10/22. Some improvement today. 10/22/21: Labs/EKG WNL Meeting 10/24 with health care proxy's to discuss clozaril discontinuation ECT Consult 10/24/21: Continue current plan. 10/25/21: Continue current plan. 10/26: ECT may be indicated. Change Ativan to standing dose. 10/27 Increase Ativan to 1 mg TID and watch for sedation 10/28/21: CBCD, CMP, EKG 10/29/21 in preparation for chemotherapy Await Clozapine level results. 10/29/21: ECT consult 10/30 Chemotherapy 10/30 Await Clozapine level results. Tentative plan to taper Abilify, titrate Latuda. Family/HCP in agreement. Pt agrees as well. 10/30/21: Decrease Abilify to 10 mg daily to prepare to begin Latuda 10/31/21: Continue current plan. 11/01/21: Discontinue Abilify Latuda 20 mg 1800 11/02/21: Continue current treatment plan 11/03/21: Continue current treatment plan 11/04/21: Tolerating Latuda. Pt asks not to titrate yet. Some improvement noted. 11/05/21: Chemotherapy 11/06. Ready to titrate Latuda-family will discuss with pt. Thus far, a positive result, without adverse effect. EKG reading pending Sister will not be taking pt to chemotherapy on 11/06 as her son has tested positive for COVID this afternoon. Partner Kailey will accompany pt. along with team. 11/06/21: Increase Latuda to 40 mg daily after evening meal. Increase Colace to 200 mg hs Miralax prn Per nursing report, pt will no longer need steroid dosing on Tuesdays before chemotherapy, but will receive dosing on Wednesdays in the chemotherapy dept. 11/07/21: Continue current plan. 11/08/21: Change Lorazepam prn to 1 mg bid 11/09/21: Tolerating Lorazepam. Continue plan of care. 11/10/21: Considering Latuda increase. 11/11/21: Increase Latuda to 60 mg daily. Labs pre chemotherapy. 11/12/21: Continue current plan. Care discussed with HCP Kailey- review of Ativan dosing, therapeutic Latuda dosing,pt's not understanding that her thought blocking, paranoia, belief that she will go to halfway are target sx for medication increase. 11/14/21: Continue current plan. Discharge planning with consistent improvement. 11/15/21: continue current medications per primary treatment team. 11/16/2021 Patient seen in psychiatric follow-up patient depressed withdrawn hopeless helpless despondent again discussed option of ECT I spent minutes with the patient and/or on the patient floor today, greater than?50% of which was spent counseling/coordinating care. Reason for contiued inpatient stay Substantial Risk for: harm to self and rapid decompensation
[2021-11-17] MEDS: Omeprazole 20 MG CAPSULE.DR PO (06:19)
[2021-11-17 06:48] LABS: Glucose, Whole Blood 118 mg/dL (60-115)
[2021-11-17 08:30] VITALS: BP 140/75; PULSE 119
[2021-11-17] MEDS: metFORMIN HCl 1,000 MG TABLET 1000 MG PO ×2 (08:57→21:03)
[2021-11-17] MEDS: Ferrous Sulfate 324 MG TABLET.DR PO (08:57)
[2021-11-17] MEDS: cloNIDine HCL 0.1 MG TABLET PO ×2 (08:58→21:02)
[2021-11-17] MEDS: Ascorbic Acid 500 MG TABLET 1000 MG PO (08:58)
[2021-11-17] MEDS: cloZAPine 100 MG TABLET 150 MG PO ×2 (08:58→21:02)
[2021-11-17] MEDS: buPROPion HCL 100 MG TABLET PO (08:58)
[2021-11-17] MEDS: Losartan Potassium 25 MG TABLET PO (08:59)
[2021-11-17] MEDS: Cholecalciferol (Vitamin D3) 10 MCG TABLET PO (08:59)
[2021-11-17] MEDS: Multivitamin TABLET 1 TAB PO (09:00)
[2021-11-17] MEDS: Cyanocobalamin (Vitamin B-12) 1,000 MCG TABLET 1000 MCG PO (09:00)
[2021-11-17] MEDS: LORazepam 1 MG TABLET PO (09:06)
[2021-11-17] MEDS: NeoMY/Polymyx/Bacit/Ointment 14 GM Tube TOPICAL (12:13)
[2021-11-17] MEDS: Enoxaparin Sodium 40 MG/0.4 ML SYRINGE SUBCUT (12:13)
[2021-11-17 17:15] VITALS: BP 122/80; PULSE 118; RESP 20; TEMP 36.7; O2SAT 99
[2021-11-17] MEDS: Lurasidone HCl 20 MG TABLET 60 MG PO (18:22)
[2021-11-17] MEDS: Atorvastatin Calcium 10 MG TABLET 5 MG PO (21:01)
[2021-11-17] MEDS: Docusate Sodium 100 MG CAPSULE 200 MG PO (21:03)
[2021-11-17] MEDS: traZODone HCL 50 MG TABLET PO (21:08)
--- NOTE | 2021-11-17 23:23 | HO.PSYCHPN ---
Subjective Subjective Date of Service: 11/17/21 Reason For Visit: Depression paranoia Healthcare Proxy: Yes Interim History: The patient is flat dysphoric but some improvement since yesterday. Given literature again regarding ECT patient does not feel necessary at this time denies active SI given information Mental Status Exam Mental Status Exam Narrative: Patient Appearance:?Appropriate Patient Orientation:?Person, Place, Time and Situation Level of Consciousness:?Alert Patient Behavior:?Guarded, Cooperative, Passive, Suspicious, Timid, Anxious, Fearful, Avoidant, Fatigued, Distractible, Isolative and Good Eye Contact Mood Description:?Depressed Affect Description:?Flat Patient Cognition Impaired:?Yes Ability to Follow Directions:?Good Speech Pattern:?slowed Memory Description:?Episodic Impaired Hallucinations:?None Delusions:?Paranoid Ideation Perceptual Disturbances:?Depersonalization and Derealization Thought Process:?Distracted and Rumination Thought Content:?positive for [place], positive for Circumstantial, positive for Disorganized (per pt report) and positive for Suicidal Ideation Depressive Symptoms:?Increased Anxiety, Diff. Making Decisions, Loss of Int. in Activity, Feelings of Worthlessness, Hopelessness, Isolating-Friends/Family, Feelings of Guilt, Unhappiness, Increased Fatigue, Thoughts of /Suicide, Low Self Esteem, Loss of Energy and Difficulty Concentrating Judgement:?Poor Diagnostics Vital Signs (24Hr): Vital Signs - 24 hr 11/17/21 08:30 11/17/21 17:15 Temperature 98.1 F Pulse Rate 119 H 118 H Respiratory Rate 20 Blood Pressure 140/75 H 122/80 Pulse Oximetry 99 BMI result Body Mass Index 30.7 Labs Results: 11/12/21 08:27 11/12/21 08:27 Labs: Laboratory Results - last 48 hr 11/16/21 11/17/21 06:15 06:42 POC Glucose 117 H 118 H Medications Medications Current Medications Acetaminophen (Acetaminophen 325 Mg Tablet) 650 mg PO Q6H PRN PRN Reason: Headache/Pain Mild Scale (1-3) Al Hydroxide/Mg Hydroxide (Magnesium Hydrox/Alum Hydrox 30 Ml Oral.Susp) 30 ml PO Q6H PRN PRN Reason: Heartburn/Nausea Last Admin: 10/02/21 14:41 Dose: 30 ml Documented by: Ascorbic Acid (Ascorbic Acid 500 Mg Tablet) 1,000 mg PO DAILY MYRTLE Last Admin: 11/17/21 08:58 Dose: 1,000 mg Documented by: Atorvastatin Calcium (Atorvastatin Calcium 10 Mg Tablet) 5 mg PO BEDTIME [facility] Last Admin: 11/17/21 21:01 Dose: 5 mg Documented by: Bupropion HCl (Bupropion Hcl 100 Mg Tablet) 100 mg PO DAILY [facility] Last Admin: 11/17/21 08:58 Dose: 100 mg Documented by: Clonidine HCl (Clonidine Hcl 0.1 Mg Tablet) 0.1 mg PO BID [facility]; Protocol Last Admin: 11/17/21 21:02 Dose: 0.1 mg Documented by: Clozapine (Clozapine 100 Mg Tablet) 150 mg PO BID [facility] Last Admin: 11/17/21 21:02 Dose: 150 mg Documented by: Cyanocobalamin (Cyanocobalamin (Vitamin B-12) 1,000 Mcg Tablet) 1,000 mcg PO DAILY [facility] Last Admin: 11/17/21 09:00 Dose: 1,000 mcg Documented by: Docusate Sodium (Docusate Sodium 100 Mg Capsule) 200 mg PO BEDTIME [facility] Last Admin: 11/17/21 21:03 Dose: 200 mg Documented by: Enoxaparin Sodium (Enoxaparin Sodium 40 Mg/0.4 Ml Syringe) 40 mg SUBCUT Q24H [facility] Last Admin: 11/17/21 12:13 Dose: 40 mg Documented by: Ferrous Sulfate (Ferrous Sulfate 324 Mg Tablet.) 324 mg PO DAILY [facility] Last Admin: 11/17/21 08:57 Dose: 324 mg Documented by: Hydroxyzine HCl (Hydroxyzine Hcl 25 Mg Tablet) 25 mg PO BEDTIME PRN PRN Reason: Anxiety Last Admin: 10/31/21 02:30 Dose: 25 mg Documented by: Losartan Potassium (Losartan Potassium 25 Mg Tablet) 25 mg PO DAILY [facility]; Protocol Last Admin: 11/17/21 08:59 Dose: 25 mg Documented by: Lurasidone HCl (Lurasidone Hcl 20 Mg Tablet) 60 mg PO 1800 [facility] Last Admin: 11/17/21 18:22 Dose: 60 mg Documented by: Magnesium Hydroxide (Milk Of Magnesia 30 Ml Oral.Susp) 30 ml PO DAILY PRN PRN Reason: Constipation Metformin HCl (Metformin Hcl 1,000 Mg Tablet) 1,000 mg PO BID [facility] Last Admin: 11/17/21 21:03 Dose: 1,000 mg Documented by: Multivitamins/Vitamin C (Multivitamin Tablet) 1 tab PO DAILY [facility] Last Admin: 11/17/21 09:00 Dose: 1 tab Documented by: Neomycin/Polymyxin/Bacitracin (Neomy/Polymyx/Bacit/Ointment 14 Gm Tube) 1 gm TOPICAL BID [facility]; Protocol Last Admin: 11/17/21 12:13 Dose: 1 gm Documented by: Non-Formulary Medication (Cinnamon) 1,000 mg PO DAILY [facility] Last Admin: 11/17/21 09:00 Dose: 1,000 mg Documented by: Patient Own Medication ( Empagliflozin 10 Mg) 1 each PO DAILY [facility] Last Admin: 11/17/21 09:05 Dose: 1 each Documented by: Patient Own Medication (Dwayne Red Softgels) 1 each PO DAILY [facility] Last Admin: 11/17/21 09:01 Dose: 1 each Documented by: Omeprazole (Omeprazole 20 Mg Capsule.) 20 mg PO DAILY@0630 [facility] Last Admin: 11/17/21 06:19 Dose: 20 mg Documented by: Ondansetron HCl (Ondansetron Odt 8 Mg Tab.Rapdis) 8 mg TRANSLINGU Q8H PRN PRN Reason: nausea Polyethylene Glycol (Polyethylene Glycol 3350 17 Gm Powd.Pack) 17 gm PO DAILY PRN PRN Reason: Constipation Last Admin: 11/06/21 12:24 Dose: 17 gm Documented by: Prazosin HCl (Prazosin Hcl 1 Mg Capsule) 1 mg PO BEDTIME PRN; Protocol PRN Reason: nightmares Last Admin: 10/30/21 21:53 Dose: 1 mg Documented by: Trazodone HCl (Trazodone Hcl 50 Mg Tablet) 50 mg PO BEDTIME PRN PRN Reason: Insomnia Last Admin: 11/17/21 21:08 Dose: 50 mg Documented by: Vitamin D (Cholecalciferol (Vitamin D3) 10 Mcg Tablet) 10 mcg PO DAILY [facility] Last Admin: 11/17/21 08:59 Dose: 10 mcg Documented by: Allergies Allergies Allergy/AdvReac Type Severity Reaction Status Date / Time lisinopril [LISINOPRIL] Allergy Unknown SWOLLEN Verified 09/17/21 08:42 LIPS, angioedema, swelling Assessment & Plan Assessment & Plan (1) Schizoaffective disorder: Status: Acute Code(s): F25.9 - Schizoaffective disorder, unspecified (2) Invasive ductal carcinoma of right breast: Status: Acute Code(s): C50.911 - Malignant neoplasm of unspecified site of right female breast (3) Hypertension: Qualifiers: Hypertension type: essential hypertension Qualified Code(s): I10 - Essential (primary) hypertension Status: Acute Code(s): I10 - Essential (primary) hypertension (4) Hypercholesterolemia: Status: Acute Code(s): E78.00 - Pure hypercholesterolemia, unspecified (5) Type 2 diabetes mellitus with hyperglycemia: Qualifiers: Diabetes mellitus vermin exterminator insulin use: without vermin exterminator use Qualified Code(s): E11.65 - Type 2 diabetes mellitus with hyperglycemia Status: Acute Code(s): E11.65 - Type 2 diabetes mellitus with hyperglycemia Assessment and Plan: Continue metformin Jardiance monitor point of care (6) GERD (gastroesophageal reflux disease): Qualifiers: Esophagitis presence: without esophagitis Qualified Code(s): K21.9 - Gastro-esophageal reflux disease without esophagitis Status: Acute Code(s): K21.9 - Gastro-esophageal reflux disease without esophagitis Plan 50 yo female, hx of schizoaffective disorder, depressed with R breast cancer, having just completed first cycle of chemotherapy. Pt's partner and sister report to crisis team that pt has had a significant mental status change with psychotic symptoms, paranoia, perceptual alterations, poor sleep and significant thought blocking. Pt denies SI, HI. Today she is a very poor historian-almost pre-catatonic at times, considering signing a three day notice of intent. Team report by history she may not be comfortable in this facility. Assessment plan for 09/21/2021 Continue current medical treatment elevated white blood count noted over the past month question related to cancer treatment. No evidence of infection Patient depressed withdrawn preoccupied patient with recent treatment for ductal carcinoma stress of this might certainly lead to depressive almost catatonic episode 09/22/21 Pt with thought blocking improved from yeterday have restarted wellbutin hosp did not have sr cont clozapine evaluate baseline denies self harm oob more 09/23/21 Continue current plan of care. Collateral contacts with OP team, oncology. 09/24/21 Increase Abilify to 30 mg daily Pt currently refusing Lorazepam TDN expires 09/25/21-will file for civil commitment if pt persists in wanting discharge 09/25/21 Civil commitment filing completed Continue current regime. 09/26/21 Continue current regime 09/27/32 Decrease Abilify to 20 mg daily Risperdal 1.5 mg HS 09/28/21 Continue plan as above 09/29/21 No changes 09/30/21 Court 10/01/21 Chemotherapy 10/01/21 Increase Risperdal to 2.5 mg HS Decrease Abilify to 10 mg daily 10/02/21 Tolerating change back to Abilify from Risperdal Appetite is improved. Calmer, more visable, however continues with paranoia Jardiance ordered from [facility] pharmacy 10/03/21 Increase Abilify to 30 mg daily Will pursue validation of pt's HCP for continued chemotherapy Tentative chemotherapy 10/09. 10/04/21 Continue current regime 10/05 no changes to current regimen 10/06 no changes to current regimen 10/07/21 No positive effect from increase in Abilify Increase Clozaril to 100 mg bid, an increase of 50 mg daily, divided. Chemotherapy 10/09/21, Labs 10/08/21. 10/08/21 Tolerating Clozaril increase thus far Dexamethasone 4 mg hs and 4 mg a.m. pre chemo per Dr. Mora Support, encourage 10/09/21 Continue current plan of care 10/10/21 Continue current plan of care 10/11/21 Continue current plan. Will re-eval for Clozaril increase next week. 10/12/2021: Continue current regimen and plans. No changes were made today 10/13/2021: Continue current plans and regimen. 10/14/21: Increase Clozaril to 125 mg bid EKG, CBCD, CMP 10/15 prior to chemotherapy 10/15/21: Continue current plan of care 10/16/21: Continue current plan. Tolerating Clozaril increase 10/17/21: Continue current regime. 10/18/21: Increase Clozaril to 150 mg bid Decrease Abilify to 20 mg daily ECT Consult 10/19/21: continue meds unchanged 10/20/21: pt continue to present as paranoid, withdrawn 10/21/21: Continue current regime. Labs/EKG 10/22. Some improvement today. 10/22/21: Labs/EKG WNL Meeting 10/24 with health care proxy's to discuss clozaril discontinuation ECT Consult 10/24/21: Continue current plan. 10/25/21: Continue current plan. 10/26: ECT may be indicated. Change Ativan to standing dose. 10/27 Increase Ativan to 1 mg TID and watch for sedation 10/28/21: CBCD, CMP, EKG 10/29/21 in preparation for chemotherapy Await Clozapine level results. 10/29/21: ECT consult 10/30 Chemotherapy 10/30 Await Clozapine level results. Tentative plan to taper Abilify, titrate Latuda. Family/HCP in agreement. Pt agrees as well. 10/30/21: Decrease Abilify to 10 mg daily to prepare to begin Latuda 10/31/21: Continue current plan. 11/01/21: Discontinue Abilify Latuda 20 mg 1800 11/02/21: Continue current treatment plan 11/03/21: Continue current treatment plan 11/04/21: Tolerating Latuda. Pt asks not to titrate yet. Some improvement noted. 11/05/21: Chemotherapy 11/06. Ready to titrate Latuda-family will discuss with pt. Thus far, a positive result, without adverse effect. EKG reading pending Sister will not be taking pt to chemotherapy on 11/06 as her son has tested positive for COVID this afternoon. Partner Kailey will accompany pt. along with team. 11/06/21: Increase Latuda to 40 mg daily after evening meal. Increase Colace to 200 mg hs Miralax prn Per nursing report, pt will no longer need steroid dosing on Tuesdays before chemotherapy, but will receive dosing on Wednesdays in the chemotherapy dept. 11/07/21: Continue current plan. 11/08/21: Change Lorazepam prn to 1 mg bid 11/09/21: Tolerating Lorazepam. Continue plan of care. 11/10/21: Considering Latuda increase. 11/11/21: Increase Latuda to 60 mg daily. Labs pre chemotherapy. 11/12/21: Continue current plan. Care discussed with HCP Kailey- review of Ativan dosing, therapeutic Latuda dosing,pt's not understanding that her thought blocking, paranoia, belief that she will go to prison are target sx for medication increase. 11/14/21: Continue current plan. Discharge planning with consistent improvement. 11/15/21: continue current medications per primary treatment team. 11/16/2021 Patient seen in psychiatric follow-up patient depressed withdrawn hopeless helpless despondent again discussed option of ECT 11/17/2021 Patient's case reviewed with nursing staff. Patient seen. Patient somewhat with cardoso affect today less withdrawn able to engage in discussion regarding Latuda and possibility of ECT treatment. Continue clozapine Latuda I spent minutes with the patient and/or on the patient floor today, greater than?50% of which was spent counseling/coordinating care. Reason for contiued inpatient stay Substantial Risk for: harm to self and rapid decompensation
[2021-11-18] MEDS: Omeprazole 20 MG CAPSULE.DR PO (06:11)
[2021-11-18 06:23] LABS: Glucose, Whole Blood 132 mg/dL (60-115)
[2021-11-18 09:15] VITALS: BP 108/85; PULSE 125; TEMP 36.4
[2021-11-18] MEDS: metFORMIN HCl 1,000 MG TABLET 1000 MG PO ×2 (09:28→21:39)
[2021-11-18] MEDS: cloNIDine HCL 0.1 MG TABLET PO ×2 (09:28→21:39)
[2021-11-18] MEDS: Cyanocobalamin (Vitamin B-12) 1,000 MCG TABLET 1000 MCG PO (09:28)
[2021-11-18] MEDS: Multivitamin TABLET 1 TAB PO (09:28)
[2021-11-18] MEDS: Cholecalciferol (Vitamin D3) 10 MCG TABLET PO (09:28)
[2021-11-18] MEDS: cloZAPine 100 MG TABLET 150 MG PO ×2 (09:29→21:40)
[2021-11-18] MEDS: buPROPion HCL 100 MG TABLET PO (09:29)
[2021-11-18] MEDS: Ferrous Sulfate 324 MG TABLET.DR PO (09:29)
[2021-11-18] MEDS: Losartan Potassium 25 MG TABLET PO (09:29)
[2021-11-18] MEDS: Ascorbic Acid 500 MG TABLET 1000 MG PO (09:30)
[2021-11-18] MEDS: NeoMY/Polymyx/Bacit/Ointment 14 GM Tube TOPICAL (09:31)
--- NOTE | 2021-11-18 11:57 | HO.PSYCHPN ---
Subjective Subjective Date of Service: 11/18/21 Reason For Visit: Depression paranoia Subjective Notes: Conditional Voluntary Interim History: Pt with constricted affect, minimally spontaneous speech. She reports feeling confused at times. She denies SI/HI. She reports she does not remember reason for this hospitalization but assumes it was for depression. noted opsoclonus- more pronounce on left eye, unclear if this new. pt does have hx of hemeparesis. provided update to significant other. no noted left side swelling. Medication Compliance: Yes Review of Systems Review of Systems Constitutional : No Weight loss, No Fever, No Chills, No Fatigue, No Malaise ENT/Mouth : No sore throat, No Rhinorrhea Eyes: No Eye Pain, No Swelling, No Redness Cardiovascular : No Chest Pain, No SOB, No Dyspnea on Exertion, No Orthopnea, No Edema, No Palpitations Respiratory : No Cough, No Sputum, No Wheezing Gastrointestinal : No Nausea, No Vomiting, No Diarrhea, No Constipation, No abdominal Pain, No Hematochezia, No Melena Genitourinary : No Dysuria, No Urinary Frequency, No Hematuria, Musculoskeletal : No joint pain, No Myalgias, No Joint Swelling Skin : No Skin Lesions, No rash Neuro : No Weakness, No Numbness, No Dizziness, No Headache Psych : + Anxiety/Panic, + Depression All other systems reviewed and are negative Yes all other systems are reviewed and are negative and Unobtainable due to mental status Reports behavioral changes, Reports confusion and Reports memory loss Psychiatric: Reports abnormal sleep pattern (pt reports due to new room-mate), Reports anxiety, Reports behavioral changes, Reports confusion, Reports depression, Reports difficulty concentrating, Reports auditory hallucinations, Reports hopelessness, Reports anhedonia, Reports memory loss, Reports mood swings, Reports paranoia, Reports hallucinations, Reports homicidal ideation (denies) and Reports suicidal ideation (denies) Mental Status Exam Mental Status Exam Narrative: Patient Appearance:?Appropriate Patient Orientation:?Person, Place, Time and Situation Level of Consciousness:?Alert Patient Behavior:?Guarded, Cooperative, Passive, Suspicious, Timid, Anxious, Fearful, Avoidant, Fatigued, Distractible, Isolative and Good Eye Contact Mood Description:?Depressed Affect Description:?Flat Patient Cognition Impaired:?Yes Ability to Follow Directions:?Good Speech Pattern:?slowed Memory Description:?Episodic Impaired Hallucinations:?None Delusions:?Paranoid Ideation Perceptual Disturbances:?Depersonalization and Derealization Thought Process:?Distracted and Rumination Thought Content:?positive for Corona, positive for Circumstantial, positive for Disorganized (per pt report) and positive for Suicidal Ideation Depressive Symptoms:?Increased Anxiety, Diff. Making Decisions, Loss of Int. in Activity, Feelings of Worthlessness, Hopelessness, Isolating-Friends/Family, Feelings of Guilt, Unhappiness, Increased Fatigue, Thoughts of /Suicide, Low Self Esteem, Loss of Energy and Difficulty Concentrating Judgement:?Poor Diagnostics Vital Signs (24Hr): Vital Signs - 24 hr 11/18/21 09:15 11/18/21 18:00 11/19/21 08:34 Temperature 97.5 F 97.7 F 97.5 F Pulse Rate 125 H 113 H 109 H Respiratory Rate 14 16 Blood Pressure 108/85 123/77 114/81 Pulse Oximetry 97 BMI result Body Mass Index 30.7 Labs Results: 11/12/21 08:27 11/12/21 08:27 Labs: Laboratory Results - last 48 hr 11/18/21 11/19/21 11/19/21 06:17 06:38 07:56 Absolute Neuts (auto) Cancelled POC Glucose 132 H 123 H Medications Medications Current Medications Acetaminophen (Acetaminophen 325 Mg Tablet) 650 mg PO Q6H PRN PRN Reason: Headache/Pain Mild Scale (1-3) Al Hydroxide/Mg Hydroxide (Magnesium Hydrox/Alum Hydrox 30 Ml Oral.Susp) 30 ml PO Q6H PRN PRN Reason: Heartburn/Nausea Last Admin: 10/02/21 14:41 Dose: 30 ml Documented by: Ascorbic Acid (Ascorbic Acid 500 Mg Tablet) 1,000 mg PO DAILY [facility] Last Admin: 11/19/21 08:27 Dose: 1,000 mg Documented by: Atorvastatin Calcium (Atorvastatin Calcium 10 Mg Tablet) 5 mg PO BEDTIME [facility] Last Admin: 11/18/21 21:40 Dose: 5 mg Documented by: Bupropion HCl (Bupropion Hcl 100 Mg Tablet) 100 mg PO DAILY [facility] Last Admin: 11/19/21 08:27 Dose: 100 mg Documented by: Clonidine HCl (Clonidine Hcl 0.1 Mg Tablet) 0.1 mg PO BID [facility]; Protocol Last Admin: 11/19/21 08:28 Dose: 0.1 mg Documented by: Clozapine (Clozapine 100 Mg Tablet) 150 mg PO BID [facility] Last Admin: 11/19/21 08:27 Dose: 150 mg Documented by: Cyanocobalamin (Cyanocobalamin (Vitamin B-12) 1,000 Mcg Tablet) 1,000 mcg PO DAILY [facility] Last Admin: 11/19/21 08:28 Dose: 1,000 mcg Documented by: Docusate Sodium (Docusate Sodium 100 Mg Capsule) 200 mg PO BEDTIME [facility] Last Admin: 11/18/21 21:40 Dose: 200 mg Documented by: Enoxaparin Sodium (Enoxaparin Sodium 40 Mg/0.4 Ml Syringe) 40 mg SUBCUT Q24H [facility] Last Admin: 11/18/21 12:23 Dose: 40 mg Documented by: Ferrous Sulfate (Ferrous Sulfate 324 Mg Tablet.) 324 mg PO DAILY [facility] Last Admin: 11/19/21 08:27 Dose: 324 mg Documented by: Hydroxyzine HCl (Hydroxyzine Hcl 25 Mg Tablet) 25 mg PO BEDTIME PRN PRN Reason: Anxiety Last Admin: 10/31/21 02:30 Dose: 25 mg Documented by: Lorazepam (Lorazepam 1 Mg Tablet) 1 mg PO BID [facility] Last Admin: 11/19/21 08:27 Dose: 1 mg Documented by: Losartan Potassium (Losartan Potassium 25 Mg Tablet) 25 mg PO DAILY [facility]; Protocol Last Admin: 11/19/21 08:27 Dose: 25 mg Documented by: Lurasidone HCl (Lurasidone Hcl 20 Mg Tablet) 60 mg PO 1800 [facility] Last Admin: 11/18/21 18:29 Dose: 60 mg Documented by: Magnesium Hydroxide (Milk Of Magnesia 30 Ml Oral.Susp) 30 ml PO DAILY PRN PRN Reason: Constipation Metformin HCl (Metformin Hcl 1,000 Mg Tablet) 1,000 mg PO BID [facility] Last Admin: 11/19/21 08:27 Dose: 1,000 mg Documented by: Multivitamins/Vitamin C (Multivitamin Tablet) 1 tab PO DAILY [facility] Last Admin: 11/19/21 08:28 Dose: 1 tab Documented by: Neomycin/Polymyxin/Bacitracin (Neomy/Polymyx/Bacit/Ointment 14 Gm Tube) 1 gm TOPICAL BID [facility]; Protocol Last Admin: 11/19/21 08:39 Dose: Not Given Documented by: Non-Formulary Medication (Cinnamon) 1,000 mg PO DAILY [facility] Last Admin: 11/19/21 08:26 Dose: 1,000 mg Documented by: Patient Own Medication ( Empagliflozin 10 Mg) 1 each PO DAILY [facility] Last Admin: 11/19/21 08:26 Dose: 1 each Documented by: Patient Own Medication (Dwayne Red Softgels) 1 each PO DAILY [facility] Last Admin: 11/19/21 08:26 Dose: 1 each Documented by: Omeprazole (Omeprazole 20 Mg Capsule.Dr) 20 mg PO DAILY@0630 [facility] Last Admin: 11/19/21 06:34 Dose: 20 mg Documented by: Ondansetron HCl (Ondansetron Odt 8 Mg Tab.Rapdis) 8 mg TRANSLINGU Q8H PRN PRN Reason: nausea Polyethylene Glycol (Polyethylene Glycol 3350 17 Gm Powd.Pack) 17 gm PO DAILY PRN PRN Reason: Constipation Last Admin: 11/06/21 12:24 Dose: 17 gm Documented by: Prazosin HCl (Prazosin Hcl 1 Mg Capsule) 1 mg PO BEDTIME PRN; Protocol PRN Reason: nightmares Last Admin: 10/30/21 21:53 Dose: 1 mg Documented by: Trazodone HCl (Trazodone Hcl 50 Mg Tablet) 50 mg PO BEDTIME PRN PRN Reason: Insomnia Last Admin: 11/18/21 21:46 Dose: 50 mg Documented by: Vitamin D (Cholecalciferol (Vitamin D3) 10 Mcg Tablet) 10 mcg PO DAILY [facility] Last Admin: 11/19/21 08:27 Dose: 10 mcg Documented by: Allergies Allergies Allergy/AdvReac Type Severity Reaction Status Date / Time lisinopril [LISINOPRIL] Allergy Unknown SWOLLEN Verified 09/17/21 08:42 LIPS, angioedema, swelling Assessment & Plan Assessment & Plan (1) Schizoaffective disorder: Status: Acute Code(s): F25.9 - Schizoaffective disorder, unspecified (2) Invasive ductal carcinoma of right breast: Status: Acute Code(s): C50.911 - Malignant neoplasm of unspecified site of right female breast (3) Hypertension: Qualifiers: Hypertension type: essential hypertension Qualified Code(s): I10 - Essential (primary) hypertension Status: Acute Code(s): I10 - Essential (primary) hypertension (4) Hypercholesterolemia: Status: Acute Code(s): E78.00 - Pure hypercholesterolemia, unspecified (5) Type 2 diabetes mellitus with hyperglycemia: Qualifiers: Diabetes mellitus senior living insulin use: without senior living use Qualified Code(s): E11.65 - Type 2 diabetes mellitus with hyperglycemia Status: Acute Code(s): E11.65 - Type 2 diabetes mellitus with hyperglycemia Assessment and Plan: Continue metformin Jardiance monitor point of care (6) GERD (gastroesophageal reflux disease): Qualifiers: Esophagitis presence: without esophagitis Qualified Code(s): K21.9 - Gastro-esophageal reflux disease without esophagitis Status: Acute Code(s): K21.9 - Gastro-esophageal reflux disease without esophagitis Plan 50 yo female, hx of schizoaffective disorder, depressed with R breast cancer, having just completed first cycle of chemotherapy. Pt's partner and sister report to crisis team that pt has had a significant mental status change with psychotic symptoms, paranoia, perceptual alterations, poor sleep and significant thought blocking. Pt denies SI, HI. Today she is a very poor historian-almost pre-catatonic at times, considering signing a three day notice of intent. Team report by history she may not be comfortable in this facility. Assessment plan for 09/21/2021 Continue current medical treatment elevated white blood count noted over the past month question related to cancer treatment. No evidence of infection Patient depressed withdrawn preoccupied patient with recent treatment for ductal carcinoma stress of this might certainly lead to depressive almost catatonic episode 09/22/21 Pt with thought blocking improved from yeterday have restarted wellbutin hosp did not have sr cont clozapine evaluate baseline denies self harm oob more 09/23/21 Continue current plan of care. Collateral contacts with OP team, oncology. 09/24/21 Increase Abilify to 30 mg daily Pt currently refusing Lorazepam TDN expires 09/25/21-will file for civil commitment if pt persists in wanting discharge 09/25/21 Civil commitment filing completed Continue current regime. 09/26/21 Continue current regime 09/27/32 Decrease Abilify to 20 mg daily Risperdal 1.5 mg HS 09/28/21 Continue plan as above 09/29/21 No changes 09/30/21 Court 10/01/21 Chemotherapy 10/01/21 Increase Risperdal to 2.5 mg HS Decrease Abilify to 10 mg daily 10/02/21 Tolerating change back to Abilify from Risperdal Appetite is improved. Calmer, more visable, however continues with paranoia Jardiance ordered from [facility] 10/03/21 Increase Abilify to 30 mg daily Will pursue validation of pt's HCP for continued chemotherapy Tentative chemotherapy 10/09. 10/04/21 Continue current regime 10/05 no changes to current regimen 10/06 no changes to current regimen 10/07/21 No positive effect from increase in Abilify Increase Clozaril to 100 mg bid, an increase of 50 mg daily, divided. Chemotherapy 10/09/21, Labs 10/08/21. 10/08/21 Tolerating Clozaril increase thus far Dexamethasone 4 mg hs and 4 mg a.m. pre chemo per Dr. Mora Support, encourage 10/09/21 Continue current plan of care 10/10/21 Continue current plan of care 10/11/21 Continue current plan. Will re-eval for Clozaril increase next week. 10/12/2021: Continue current regimen and plans. No changes were made today 10/13/2021: Continue current plans and regimen. 10/14/21: Increase Clozaril to 125 mg bid EKG, CBCD, CMP 10/15 prior to chemotherapy 10/15/21: Continue current plan of care 10/16/21: Continue current plan. Tolerating Clozaril increase 10/17/21: Continue current regime. 10/18/21: Increase Clozaril to 150 mg bid Decrease Abilify to 20 mg daily ECT Consult 10/19/21: continue meds unchanged 10/20/21: pt continue to present as paranoid, withdrawn 10/21/21: Continue current regime. Labs/EKG 10/22. Some improvement today. 10/22/21: Labs/EKG WNL Meeting 10/24 with health care proxy's to discuss clozaril discontinuation ECT Consult 10/24/21: Continue current plan. 10/25/21: Continue current plan. 10/26: ECT may be indicated. Change Ativan to standing dose. 10/27 Increase Ativan to 1 mg TID and watch for sedation 10/28/21: CBCD, CMP, EKG 10/29/21 in preparation for chemotherapy Await Clozapine level results. 10/29/21: ECT consult 10/30 Chemotherapy 10/30 Await Clozapine level results. Tentative plan to taper Abilify, titrate Latuda. Family/HCP in agreement. Pt agrees as well. 10/30/21: Decrease Abilify to 10 mg daily to prepare to begin Latuda 10/31/21: Continue current plan. 11/01/21: Discontinue Abilify Latuda 20 mg 1800 11/02/21: Continue current treatment plan 11/03/21: Continue current treatment plan 11/04/21: Tolerating Latuda. Pt asks not to titrate yet. Some improvement noted. 11/05/21: Chemotherapy 11/06. Ready to titrate Latuda-family will discuss with pt. Thus far, a positive result, without adverse effect. EKG reading pending Sister will not be taking pt to chemotherapy on 11/06 as her son has tested positive for COVID this afternoon. Partner Kailey will accompany pt. along with team. 11/06/21: Increase Latuda to 40 mg daily after evening meal. Increase Colace to 200 mg hs Miralax prn Per nursing report, pt will no longer need steroid dosing on Tuesdays before chemotherapy, but will receive dosing on Wednesdays in the chemotherapy dept. 11/07/21: Continue current plan. 11/08/21: Change Lorazepam prn to 1 mg bid 11/09/21: Tolerating Lorazepam. Continue plan of care. 11/10/21: Considering Latuda increase. 11/11/21: Increase Latuda to 60 mg daily. Labs pre chemotherapy. 11/12/21: Continue current plan. Care discussed with HCP Kailey- review of Ativan dosing, therapeutic Latuda dosing,pt's not understanding that her thought blocking, paranoia, belief that she will go to group home are target sx for medication increase. 11/14/21: Continue current plan. Discharge planning with consistent improvement. 11/15/21: continue current medications per primary treatment team. 11/16/2021 Patient seen in psychiatric follow-up patient depressed withdrawn hopeless helpless despondent again discussed option of ECT 11/17/2021 Patient's case reviewed with nursing staff. Patient seen. Patient somewhat with cardoso affect today less withdrawn able to engage in discussion regarding Latuda and possibility of ECT treatment. Continue clozapine Latuda 11/18- discussed with significant other possibility of: underlying paraneoplastic syndrome related to breast carcinona- mainly 4 antibodies have been related to this type of cancer ([employer]-2, Anti-yo (ORGAN ASSEMBLER-1); Anti-RI (corona-2); and antiamphiphysin) mostly causing cerebellar disfunction including opsoclonus (and myoclonus) which pt appears to have along with other cognitive and psychiatric symptoms. Will order MRI- r/o encephalitis related to chemo or any limbic/cerebellar pathology. Sent message to oncologist. Pt does psychiatric condition appears to significantly improved with dexamethaxone. Also if classic paraneoplastic, which is the one mostly related to cancer tumors, serum antibodies testing may suffice (without CSF testing). I spent minutes with the patient and/or on the patient floor today, greater than?50% of which was spent counseling/coordinating care. Reason for contiued inpatient stay Substantial Risk for: inability to function
[2021-11-18] MEDS: Enoxaparin Sodium 40 MG/0.4 ML SYRINGE SUBCUT (12:23)
[2021-11-18] MEDS: LORazepam 1 MG TABLET PO ×2 (16:01→21:40)
[2021-11-18 18:00] VITALS: BP 123/77; PULSE 113; RESP 14; TEMP 36.5
[2021-11-18] MEDS: Lurasidone HCl 20 MG TABLET 60 MG PO (18:29)
[2021-11-18] MEDS: Atorvastatin Calcium 10 MG TABLET 5 MG PO (21:40)
[2021-11-18] MEDS: Docusate Sodium 100 MG CAPSULE 200 MG PO (21:40)
[2021-11-18] MEDS: traZODone HCL 50 MG TABLET PO (21:46)
[2021-11-19] MEDS: Omeprazole 20 MG CAPSULE.DR PO (06:34)
[2021-11-19 06:49] LABS: Glucose, Whole Blood 123 mg/dL (60-115)
[2021-11-19] MEDS: LORazepam 1 MG TABLET PO ×2 (08:27→21:27)
[2021-11-19] MEDS: metFORMIN HCl 1,000 MG TABLET 1000 MG PO ×2 (08:27→21:26)
[2021-11-19] MEDS: cloZAPine 100 MG TABLET 150 MG PO ×2 (08:27→21:27)
[2021-11-19] MEDS: Ferrous Sulfate 324 MG TABLET.DR PO (08:27)
[2021-11-19] MEDS: buPROPion HCL 100 MG TABLET PO (08:27)
[2021-11-19] MEDS: Losartan Potassium 25 MG TABLET PO (08:27)
[2021-11-19] MEDS: Cholecalciferol (Vitamin D3) 10 MCG TABLET PO (08:27)
[2021-11-19] MEDS: Ascorbic Acid 500 MG TABLET 1000 MG PO (08:27)
[2021-11-19] MEDS: Cyanocobalamin (Vitamin B-12) 1,000 MCG TABLET 1000 MCG PO (08:28)
[2021-11-19] MEDS: cloNIDine HCL 0.1 MG TABLET PO ×2 (08:28→21:28)
[2021-11-19] MEDS: Multivitamin TABLET 1 TAB PO (08:28)
[2021-11-19 08:34] VITALS: BP 114/81; PULSE 109; RESP 16; TEMP 36.4; O2SAT 97
[2021-11-19 08:45] LABS: MANUAL DIFF FLAG NO
[2021-11-19 08:57] LABS: Basophils Percent Auto 0.3 % (0-2); Eosinophils Percent Auto 0.2 % (0-4); Hematocrit 35.7 % (37.0-47.0); Hemoglobin 11.8 g/dl (12.0-16.0); Imm Gran Abs Auto 0.05 X10*3/uL (0.00-0.03); Imm Gran Pct Auto 0.8 % (0.0-0.4); Lymphocytes Absolute Auto 1.4 X10*3/uL (1.2-4.9); Lymphocytes Percent Auto 23.5 % (20-40); Mean Corpuscular HGB Conc 33.1 g/dl (31.0-35.0); Mean Corpuscular Hemoglobin 31.1 pg (27.0-33.0); Mean Corpuscular Volume 94.2 fL (80.0-98.0); Mean Platelet Volume 10.8 fL (9.4-12.3); Monocytes Absolute Auto 0.3 X10*3/uL (0.1-1.2); Monocytes Percent Auto 5.5 % (2-11); Neutrophils Absolute Auto 4.2 x10*3/uL (2.0-8.3); Neutrophils Percent Auto 69.7 % (45-73); Platelet Count 343 X10*3/uL (160-400); Red Blood Count 3.79 X10*6/uL (4.20-5.50); Red Cell Distribution Width 17.2 % (11.0-16.0)
[2021-11-19 09:24] LABS: Estimated Glomerular Filt Rate > 60
[2021-11-19 09:26] LABS: Alanine Aminotransferase 29 U/L (0-31); Albumin Level 4.1 g/dL (3.5-5.0); Alkaline Phosphatase 98 U/L (39-117); Anion Gap 15 (12-20); Aspartate Amino Transferase 21 U/L (5-31); Bilirubin Total 0.6 mg/dL (0.0-1.0); Blood Urea Nitrogen 13 mg/dL (9-16); Calcium 9.5 mg/dL (8.4-10.2); Carbon Dioxide 22 mmol/L (22-29); Chloride 107 mmol/L (96-108); Creatinine Clr Calc Pharmacy 84.7; Estimated Glomerular Filt Rate > 60; Glucose Random 156 mg/dL (60-115); Potassium 4.3 mmol/L (3.3-5.1); Sodium 140 mmol/L (135-145); Total Protein 6.5 g/dL (6.5-8.0)
--- NOTE | 2021-11-19 10:00 | ECG_ITS ---
Test Reason : PRE CHEMO Blood Pressure : / mmHG Vent. Rate : 106 BPM Atrial Rate : 106 BPM P-R Int : 138 ms QRS Dur : 080 ms QT Int : 314 ms P-R-T Axes : 053 060 002 degrees QTc Int : 417 ms Sinus tachycardia Nonspecific T wave abnormality Abnormal ECG When compared with ECG of 12-NOV-2021 11:16, No significant change was found Referred By: Marci Jones Electronically Signed By:ESDRAS WATERS
[2021-11-19] MEDS: Enoxaparin Sodium 40 MG/0.4 ML SYRINGE SUBCUT (11:45)
--- NOTE | 2021-11-19 15:51 | P.PNPSI_ITS ---
Subjective Subjective Date of Service: 11/19/21 Reason For Visit: Depression paranoia Subjective Notes: Conditional Voluntary Interim History: Pt with poverty of thought, although slightly more talkative today. She reports doing fine. She denies SI/HI. She has been visible and has attended some groups. no overt delusional content reported or noted. pending mri, paraneoplastic panel. Medication Compliance: Yes Side effects from medications: No Attending Groups: Intermittent Review of Systems Acute medical concerns: No Review of Systems Review of Systems Constitutional : No Weight loss, No Fever, No Chills, No Fatigue, No Malaise ENT/Mouth : No sore throat, No Rhinorrhea Eyes: No Eye Pain, No Swelling, No Redness Cardiovascular : No Chest Pain, No SOB, No Dyspnea on Exertion, No Orthopnea, No Edema, No Palpitations Respiratory : No Cough, No Sputum, No Wheezing Gastrointestinal : No Nausea, No Vomiting, No Diarrhea, No Constipation, No abdominal Pain, No Hematochezia, No Melena Genitourinary : No Dysuria, No Urinary Frequency, No Hematuria, Musculoskeletal : No joint pain, No Myalgias, No Joint Swelling Skin : No Skin Lesions, No rash Neuro : No Weakness, No Numbness, No Dizziness, No Headache Psych : + Anxiety/Panic, + Depression All other systems reviewed and are negative Yes all other systems are reviewed and are negative and Unobtainable due to mental status Reports behavioral changes, Reports confusion and Reports memory loss Psychiatric: Reports abnormal sleep pattern (pt reports due to new room-mate), Reports anxiety, Reports behavioral changes, Reports confusion, Reports depression, Reports difficulty concentrating, Reports auditory hallucinations, Reports hopelessness, Reports anhedonia, Reports memory loss, Reports mood swings, Reports paranoia, Reports hallucinations, Reports homicidal ideation (denies) and Reports suicidal ideation (denies) Mental Status Exam Mental Status Exam Narrative: Patient Appearance:?Appropriate Patient Orientation:?Person, Place, Time and Situation Level of Consciousness:?Alert Patient Behavior:?Guarded, Cooperative, Passive, Suspicious, Timid, Anxious, Fearful, Avoidant, Fatigued, Distractible, Isolative and Good Eye Contact Mood Description:?Depressed Affect Description:?Flat Patient Cognition Impaired:?Yes Ability to Follow Directions:?Good Speech Pattern:?slowed Memory Description:?Episodic Impaired Hallucinations:?None Delusions:?Paranoid Ideation Perceptual Disturbances:?Depersonalization and Derealization Thought Process:?Distracted and Rumination Thought Content:?positive for [place], positive for Circumstantial, positive for Disorganized (per pt report) and positive for Suicidal Ideation Depressive Symptoms:?Increased Anxiety, Diff. Making Decisions, Loss of Int. in Activity, Feelings of Worthlessness, Hopelessness, Isolating-Friends/Family, Feelings of Guilt, Unhappiness, Increased Fatigue, Thoughts of /Suicide, Low Self Esteem, Loss of Energy and Difficulty Concentrating Judgement:?Poor Diagnostics Vital Signs (24Hr): Vital Signs - 24 hr 11/18/21 18:00 11/19/21 08:34 Temperature 97.7 F 97.5 F Pulse Rate 113 H 109 H Respiratory Rate 14 16 Blood Pressure 123/77 114/81 Pulse Oximetry 97 BMI result Body Mass Index 30.7 Labs Results: 11/19/21 07:56 11/19/21 07:56 Labs: Laboratory Results - last 48 hr 11/18/21 11/19/21 11/19/21 06:17 06:38 07:56 WBC RBC Hgb Hct MCV MCH MCHC RDW Plt Count MPV Immature Gran % (Auto) Neut % (Auto) Lymph % (Auto) Crawford % (Auto) Eos % (Auto) Baso % (Auto) Lymph # (Auto) Crawford # (Auto) Eos # (Auto) Baso # (Auto) Abs Immat Gran (auto) Absolute Neuts (auto) Absolute Nucleated RBC Nucleated RBC % (auto) Sodium Potassium Chloride Carbon Dioxide Anion Gap BUN Creatinine 0.74 Estim Creat Clear Calc 87.0 Estimated GFR > 60 POC Glucose 132 H 123 H Random Glucose Calcium Total Bilirubin AST ALT Alkaline Phosphatase Total Protein Albumin 11/19/21 11/19/21 11/19/21 07:56 07:56 07:56 WBC 6.0 RBC 3.79 L Hgb 11.8 L Hct 35.7 L MCV 94.2 MCH 31.1 MCHC 33.1 RDW 17.2 H Plt Count 343 MPV 10.8 Immature Gran % (Auto) 0.8 H Neut % (Auto) 69.7 Lymph % (Auto) 23.5 Crawford % (Auto) 5.5 Eos % (Auto) 0.2 Baso % (Auto) 0.3 Lymph # (Auto) 1.4 Crawford # (Auto) 0.3 Eos # (Auto) 0.0 Baso # (Auto) 0.0 Abs Immat Gran (auto) 0.05 H Absolute Neuts (auto) 4.2 Cancelled Absolute Nucleated RBC 0.000 Nucleated RBC % (auto) 0.0 Sodium 140 Potassium 4.3 Chloride 107 Carbon Dioxide 22 Anion Gap 15 BUN 13 Creatinine 0.76 Estim Creat Clear Calc 84.7 Estimated GFR > 60 POC Glucose Random Glucose 156 H Calcium 9.5 Total Bilirubin 0.6 AST 21 ALT 29 Alkaline Phosphatase 98 Total Protein 6.5 Albumin 4.1 Medications Medications Current Medications Acetaminophen (Acetaminophen 325 Mg Tablet) 650 mg PO Q6H PRN PRN Reason: Headache/Pain Mild Scale (1-3) Al Hydroxide/Mg Hydroxide (Magnesium Hydrox/Alum Hydrox 30 Ml Oral.Susp) 30 ml PO Q6H PRN PRN Reason: Heartburn/Nausea Last Admin: 10/02/21 14:41 Dose: 30 ml Documented by: Ascorbic Acid (Ascorbic Acid 500 Mg Tablet) 1,000 mg PO DAILY [facility] Last Admin: 11/19/21 08:27 Dose: 1,000 mg Documented by: Atorvastatin Calcium (Atorvastatin Calcium 10 Mg Tablet) 5 mg PO BEDTIME [facility] Last Admin: 11/18/21 21:40 Dose: 5 mg Documented by: Bupropion HCl (Bupropion Hcl 100 Mg Tablet) 100 mg PO DAILY [facility] Last Admin: 11/19/21 08:27 Dose: 100 mg Documented by: Clonidine HCl (Clonidine Hcl 0.1 Mg Tablet) 0.1 mg PO BID [facility]; Protocol Last Admin: 11/19/21 08:28 Dose: 0.1 mg Documented by: Clozapine (Clozapine 100 Mg Tablet) 150 mg PO BID [facility] Last Admin: 11/19/21 08:27 Dose: 150 mg Documented by: Cyanocobalamin (Cyanocobalamin (Vitamin B-12) 1,000 Mcg Tablet) 1,000 mcg PO DAILY [facility] Last Admin: 11/19/21 08:28 Dose: 1,000 mcg Documented by: Docusate Sodium (Docusate Sodium 100 Mg Capsule) 200 mg PO BEDTIME [facility] Last Admin: 11/18/21 21:40 Dose: 200 mg Documented by: Enoxaparin Sodium (Enoxaparin Sodium 40 Mg/0.4 Ml Syringe) 40 mg SUBCUT Q24H [facility] Last Admin: 11/19/21 11:45 Dose: 40 mg Documented by: Ferrous Sulfate (Ferrous Sulfate 324 Mg Tablet.) 324 mg PO DAILY [facility] Last Admin: 11/19/21 08:27 Dose: 324 mg Documented by: Hydroxyzine HCl (Hydroxyzine Hcl 25 Mg Tablet) 25 mg PO BEDTIME PRN PRN Reason: Anxiety Last Admin: 10/31/21 02:30 Dose: 25 mg Documented by: Lorazepam (Lorazepam 1 Mg Tablet) 1 mg PO BID [facility] Last Admin: 11/19/21 08:27 Dose: 1 mg Documented by: Losartan Potassium (Losartan Potassium 25 Mg Tablet) 25 mg PO DAILY [facility]; Protocol Last Admin: 11/19/21 08:27 Dose: 25 mg Documented by: Lurasidone HCl (Lurasidone Hcl 20 Mg Tablet) 60 mg PO 1800 [facility] Last Admin: 11/18/21 18:29 Dose: 60 mg Documented by: Magnesium Hydroxide (Milk Of Magnesia 30 Ml Oral.Susp) 30 ml PO DAILY PRN PRN Reason: Constipation Metformin HCl (Metformin Hcl 1,000 Mg Tablet) 1,000 mg PO BID [facility] Last Admin: 11/19/21 08:27 Dose: 1,000 mg Documented by: Multivitamins/Vitamin C (Multivitamin Tablet) 1 tab PO DAILY [facility] Last Admin: 11/19/21 08:28 Dose: 1 tab Documented by: Neomycin/Polymyxin/Bacitracin (Neomy/Polymyx/Bacit/Ointment 14 Gm Tube) 1 gm TOPICAL BID [facility]; Protocol Last Admin: 11/19/21 08:39 Dose: Not Given Documented by: Non-Formulary Medication (Cinnamon) 1,000 mg PO DAILY [facility] Last Admin: 11/19/21 08:26 Dose: 1,000 mg Documented by: Patient Own Medication ( Empagliflozin 10 Mg) 1 each PO DAILY [facility] Last Admin: 11/19/21 08:26 Dose: 1 each Documented by: Patient Own Medication (Dwayne Red Softgels) 1 each PO DAILY [facility] Last Admin: 11/19/21 08:26 Dose: 1 each Documented by: Omeprazole (Omeprazole 20 Mg Capsule.) 20 mg PO DAILY@0630 [facility] Last Admin: 11/19/21 06:34 Dose: 20 mg Documented by: Ondansetron HCl (Ondansetron Odt 8 Mg Tab.Rapdis) 8 mg TRANSLINGU Q8H PRN PRN Reason: nausea Polyethylene Glycol (Polyethylene Glycol 3350 17 Gm Powd.Pack) 17 gm PO DAILY PRN PRN Reason: Constipation Last Admin: 11/06/21 12:24 Dose: 17 gm Documented by: Prazosin HCl (Prazosin Hcl 1 Mg Capsule) 1 mg PO BEDTIME PRN; Protocol PRN Reason: nightmares Last Admin: 10/30/21 21:53 Dose: 1 mg Documented by: Trazodone HCl (Trazodone Hcl 50 Mg Tablet) 50 mg PO BEDTIME PRN PRN Reason: Insomnia Last Admin: 11/18/21 21:46 Dose: 50 mg Documented by: Vitamin D (Cholecalciferol (Vitamin D3) 10 Mcg Tablet) 10 mcg PO DAILY [facility] Last Admin: 11/19/21 08:27 Dose: 10 mcg Documented by: Allergies Allergies Allergy/AdvReac Type Severity Reaction Status Date / Time lisinopril [LISINOPRIL] Allergy Unknown SWOLLEN Verified 09/17/21 08:42 LIPS, angioedema, swelling Assessment & Plan Assessment & Plan (1) Schizoaffective disorder: Status: Acute Code(s): F25.9 - Schizoaffective disorder, unspecified (2) Invasive ductal carcinoma of right breast: Status: Acute Code(s): C50.911 - Malignant neoplasm of unspecified site of right female breast (3) Hypertension: Qualifiers: Hypertension type: essential hypertension Qualified Code(s): I10 - Essential (primary) hypertension Status: Acute Code(s): I10 - Essential (primary) hypertension (4) Hypercholesterolemia: Status: Acute Code(s): E78.00 - Pure hypercholesterolemia, unspecified (5) Type 2 diabetes mellitus with hyperglycemia: Qualifiers: Diabetes mellitus orthopedic physician assistant insulin use: without intermediate use Qualified Code(s): E11.65 - Type 2 diabetes mellitus with hyperglycemia Status: Acute Code(s): E11.65 - Type 2 diabetes mellitus with hyperglycemia Assessment and Plan: Continue metformin Jardiance monitor point of care (6) GERD (gastroesophageal reflux disease): Qualifiers: Esophagitis presence: without esophagitis Qualified Code(s): K21.9 - Gastro-esophageal reflux disease without esophagitis Status: Acute Code(s): K21.9 - Gastro-esophageal reflux disease without esophagitis Plan 50 yo female, hx of schizoaffective disorder, depressed with R breast cancer, having just completed first cycle of chemotherapy. Pt's partner and sister report to crisis team that pt has had a significant mental status change with psychotic symptoms, paranoia, perceptual alterations, poor sleep and significant thought blocking. Pt denies SI, HI. Today she is a very poor historian-almost pre-catatonic at times, considering signing a three day notice of intent. Team report by history she may not be comfortable in this facility. Assessment plan for 09/21/2021 Continue current medical treatment elevated white blood count noted over the past month question related to cancer treatment. No evidence of infection Patient depressed withdrawn preoccupied patient with recent treatment for ductal carcinoma stress of this might certainly lead to depressive almost catatonic episode 09/22/21 Pt with thought blocking improved from yeterday have restarted wellbutin hosp did not have sr cont clozapine evaluate baseline denies self harm oob more 09/23/21 Continue current plan of care. Collateral contacts with OP team, oncology. 09/24/21 Increase Abilify to 30 mg daily Pt currently refusing Lorazepam TDN expires 09/25/21-will file for civil commitment if pt persists in wanting discharge 09/25/21 Civil commitment filing completed Continue current regime. 09/26/21 Continue current regime 09/27/32 Decrease Abilify to 20 mg daily Risperdal 1.5 mg HS 09/28/21 Continue plan as above 09/29/21 No changes 09/30/21 Court 10/01/21 Chemotherapy 10/01/21 Increase Risperdal to 2.5 mg HS Decrease Abilify to 10 mg daily 10/02/21 Tolerating change back to Abilify from Risperdal Appetite is improved. Calmer, more visable, however continues with paranoia Jardiance ordered from [email or web address] pharmacy 10/03/21 Increase Abilify to 30 mg daily Will pursue validation of pt's HCP for continued chemotherapy Tentative chemotherapy 10/09. 10/04/21 Continue current regime 10/05 no changes to current regimen 10/06 no changes to current regimen 10/07/21 No positive effect from increase in Abilify Increase Clozaril to 100 mg bid, an increase of 50 mg daily, divided. Chemotherapy 10/09/21, Labs 10/08/21. 10/08/21 Tolerating Clozaril increase thus far Dexamethasone 4 mg hs and 4 mg a.m. pre chemo per Dr. Mora Support, encourage 10/09/21 Continue current plan of care 10/10/21 Continue current plan of care 10/11/21 Continue current plan. Will re-eval for Clozaril increase next week. 10/12/2021: Continue current regimen and plans. No changes were made today 10/13/2021: Continue current plans and regimen. 10/14/21: Increase Clozaril to 125 mg bid EKG, CBCD, CMP 10/15 prior to chemotherapy 10/15/21: Continue current plan of care 10/16/21: Continue current plan. Tolerating Clozaril increase 10/17/21: Continue current regime. 10/18/21: Increase Clozaril to 150 mg bid Decrease Abilify to 20 mg daily ECT Consult 10/19/21: continue meds unchanged 10/20/21: pt continue to present as paranoid, withdrawn 10/21/21: Continue current regime. Labs/EKG 10/22. Some improvement today. 10/22/21: Labs/EKG WNL Meeting 10/24 with health care proxy's to discuss clozaril discontinuation ECT Consult 10/24/21: Continue current plan. 10/25/21: Continue current plan. 10/26: ECT may be indicated. Change Ativan to standing dose. 10/27 Increase Ativan to 1 mg TID and watch for sedation 10/28/21: CBCD, CMP, EKG 10/29/21 in preparation for chemotherapy Await Clozapine level results. 10/29/21: ECT consult 10/30 Chemotherapy 10/30 Await Clozapine level results. Tentative plan to taper Abilify, titrate Latuda. Family/HCP in agreement. Pt agrees as well. 10/30/21: Decrease Abilify to 10 mg daily to prepare to begin Latuda 10/31/21: Continue current plan. 11/01/21: Discontinue Abilify Latuda 20 mg 1800 11/02/21: Continue current treatment plan 11/03/21: Continue current treatment plan 11/04/21: Tolerating Latuda. Pt asks not to titrate yet. Some improvement noted. 11/05/21: Chemotherapy 11/06. Ready to titrate Latuda-family will discuss with pt. Thus far, a positive result, without adverse effect. EKG reading pending Sister will not be taking pt to chemotherapy on 11/06 as her son has tested positive for COVID this afternoon. Partner Kailey will accompany pt. along with team. 11/06/21: Increase Latuda to 40 mg daily after evening meal. Increase Colace to 200 mg hs Miralax prn Per nursing report, pt will no longer need steroid dosing on Tuesdays before chemotherapy, but will receive dosing on Wednesdays in the chemotherapy dept. 11/07/21: Continue current plan. 11/08/21: Change Lorazepam prn to 1 mg bid 11/09/21: Tolerating Lorazepam. Continue plan of care. 11/10/21: Considering Latuda increase. 11/11/21: Increase Latuda to 60 mg daily. Labs pre chemotherapy. 11/12/21: Continue current plan. Care discussed with HCP Kailey- review of Ativan dosing, therapeutic Latuda dosing,pt's not understanding that her thought blocking, paranoia, belief that she will go to intermediate are target sx for medication increase. 11/14/21: Continue current plan. Discharge planning with consistent improvement. 11/15/21: continue current medications per primary treatment team. 11/16/2021 Patient seen in psychiatric follow-up patient depressed withdrawn hopeless helpless despondent again discussed option of ECT 11/17/2021 Patient's case reviewed with nursing staff. Patient seen. Patient somewhat with cardoso affect today less withdrawn able to engage in discussion regarding Latuda and possibility of ECT treatment. Continue clozapine Latuda 11/18- discussed with significant other possibility of: underlying paraneoplastic syndrome related to breast carcinona- mainly 4 antibodies have been related to this type of cancer (PAID SEARCH MARKETING STRATEGIST-2, Anti-yo (PAID SEARCH MARKETING STRATEGIST-1); Anti-RI (corona-2); and antiamph iphysin) mostly causing cerebellar disfunction including opsoclonus (and myoclonus) which pt appears to have along with other cognitive and psychiatric symptoms. Will order MRI- r/o encephalitis related to chemo or any limbic/cerebellar pathology. Sent message to oncologist. Pt does psychiatric condition appears to significantly improved with dexamethaxone. Also if classic paraneoplastic, which is the one mostly related to cancer tumors, serum antibodies testing may suffice (without CSF testing). 11/19 continue current medications- pending mri, paraneoplastic panel. I spent minutes with the patient and/or on the patient floor today, greater than?50% of which was spent counseling/coordinating care. Reason for contiued inpatient stay Substantial Risk for: inability to function
[2021-11-19] MEDS: Lurasidone HCl 20 MG TABLET 60 MG PO (18:25)
[2021-11-19 21:15] VITALS: BP 120/83; PULSE 107; TEMP 36.2; O2SAT 99
[2021-11-19] MEDS: Docusate Sodium 100 MG CAPSULE 200 MG PO (21:26)
[2021-11-19] MEDS: Atorvastatin Calcium 10 MG TABLET 5 MG PO (21:29)
[2021-11-19] MEDS: traZODone HCL 50 MG TABLET PO (21:36)
[2021-11-20] MEDS: Omeprazole 20 MG CAPSULE.DR PO (06:04)
[2021-11-20 06:16] LABS: Glucose, Whole Blood 116 mg/dL (60-115)
[2021-11-20] MEDS: Cholecalciferol (Vitamin D3) 10 MCG TABLET PO (08:03)
[2021-11-20] MEDS: Ascorbic Acid 500 MG TABLET 1000 MG PO (08:03)
[2021-11-20] MEDS: metFORMIN HCl 1,000 MG TABLET 1000 MG PO ×2 (08:03→20:50)
[2021-11-20] MEDS: cloNIDine HCL 0.1 MG TABLET PO ×2 (08:04→20:52)
[2021-11-20] MEDS: Cyanocobalamin (Vitamin B-12) 1,000 MCG TABLET 1000 MCG PO (08:04)
[2021-11-20] MEDS: Losartan Potassium 25 MG TABLET PO (08:04)
[2021-11-20] MEDS: buPROPion HCL 100 MG TABLET PO (08:04)
[2021-11-20] MEDS: Multivitamin TABLET 1 TAB PO (08:04)
[2021-11-20] MEDS: LORazepam 1 MG TABLET PO ×2 (08:04→20:50)
[2021-11-20] MEDS: cloZAPine 100 MG TABLET 150 MG PO ×2 (08:04→20:52)
[2021-11-20] MEDS: Ferrous Sulfate 324 MG TABLET.DR PO (08:04)
[2021-11-20 08:08] VITALS: BP 121/84; PULSE 105; RESP 16; TEMP 36.4; O2SAT 99
[2021-11-20] MEDS: Enoxaparin Sodium 40 MG/0.4 ML SYRINGE SUBCUT (11:27)
--- NOTE | 2021-11-20 13:42 | HO.PSYCHPN ---
Subjective Subjective Date of Service: 11/20/21 Reason For Visit: Depression paranoia Subjective Notes: Conditional Voluntary Interim History: Pt somewhat sedated, after chemotherapy, more unsteady gait than usual. She reports feeling tired, wanting to rest. Denies any pain. No SI/HI. less talkative than yesterday but it appears related to sedation. Pending discussion with oncology in terms of potential paraneoplastic syndrome- MRI pending. Medication Compliance: Yes Side effects from medications: No Review of Systems Review of Systems Constitutional : No Weight loss, No Fever, No Chills, No Fatigue, No Malaise ENT/Mouth : No sore throat, No Rhinorrhea Eyes: No Eye Pain, No Swelling, No Redness Cardiovascular : No Chest Pain, No SOB, No Dyspnea on Exertion, No Orthopnea, No Edema, No Palpitations Respiratory : No Cough, No Sputum, No Wheezing Gastrointestinal : No Nausea, No Vomiting, No Diarrhea, No Constipation, No abdominal Pain, No Hematochezia, No Melena Genitourinary : No Dysuria, No Urinary Frequency, No Hematuria, Musculoskeletal : No joint pain, No Myalgias, No Joint Swelling Skin : No Skin Lesions, No rash Neuro : No Weakness, No Numbness, No Dizziness, No Headache Psych : + Anxiety/Panic, + Depression All other systems reviewed and are negative Yes all other systems are reviewed and are negative and Unobtainable due to mental status Reports behavioral changes, Reports confusion and Reports memory loss Psychiatric: Reports abnormal sleep pattern (pt reports due to new room-mate), Reports anxiety, Reports behavioral changes, Reports confusion, Reports depression, Reports difficulty concentrating, Reports auditory hallucinations, Reports hopelessness, Reports anhedonia, Reports memory loss, Reports mood swings, Reports paranoia, Reports hallucinations, Reports homicidal ideation (denies) and Reports suicidal ideation (denies) Mental Status Exam Mental Status Exam Narrative: Patient Appearance:?Appropriate Patient Orientation:?Person, Place, Time and Situation Level of Consciousness:?Alert Patient Behavior:?Guarded, Cooperative, Passive, Suspicious, Timid, Anxious, Fearful, Avoidant, Fatigued, Distractible, Isolative and Good Eye Contact Mood Description:?Depressed Affect Description:?Flat Patient Cognition Impaired:?Yes Ability to Follow Directions:?Good Speech Pattern:?slowed Memory Description:?Episodic Impaired Hallucinations:?None Delusions:?Paranoid Ideation Perceptual Disturbances:?Depersonalization and Derealization Thought Process:?Distracted and Rumination Thought Content:?positive for [place], positive for Circumstantial, positive for Disorganized (per pt report) and positive for Suicidal Ideation Depressive Symptoms:?Increased Anxiety, Diff. Making Decisions, Loss of Int. in Activity, Feelings of Worthlessness, Hopelessness, Isolating-Friends/Family, Feelings of Guilt, Unhappiness, Increased Fatigue, Thoughts of /Suicide, Low Self Esteem, Loss of Energy and Difficulty Concentrating Judgement:?Poor Patient Appearance: Appropriate Patient Orientation: Person, Place, Time and Situation Level of Consciousness: Alert Patient Behavior: Guarded, Talkative and Good Eye Contact Mood Description: Flat Affect Description: Flat Patient Cognition Impaired: No Ability to Follow Directions: Good Speech Pattern: Perseverating, Spontaneous Speech, Soft-Spoken and Long Pauses (present, but decreasing) Memory Description: Episodic Impaired Diagnostics Vital Signs (24Hr): Vital Signs - 24 hr 11/19/21 21:15 11/20/21 08:08 Temperature 97.1 F 97.6 F Pulse Rate 107 H 105 H Respiratory Rate 16 Blood Pressure 120/83 121/84 Pulse Oximetry 99 99 BMI result Body Mass Index 30.7 Labs Results: 11/19/21 07:56 11/19/21 07:56 Labs: Laboratory Results - last 48 hr 11/19/21 11/19/21 11/19/21 06:38 07:56 07:56 WBC 6.0 RBC 3.79 L Hgb 11.8 L Hct 35.7 L MCV 94.2 MCH 31.1 MCHC 33.1 RDW 17.2 H Plt Count 343 MPV 10.8 Immature Gran % (Auto) 0.8 H Neut % (Auto) 69.7 Lymph % (Auto) 23.5 [place] % (Auto) 5.5 Eos % (Auto) 0.2 Baso % (Auto) 0.3 Lymph # (Auto) 1.4 [place] # (Auto) 0.3 Eos # (Auto) 0.0 Baso # (Auto) 0.0 Abs Immat Gran (auto) 0.05 H Absolute Neuts (auto) 4.2 Absolute Nucleated RBC 0.000 Nucleated RBC % (auto) 0.0 Sodium Potassium Chloride Carbon Dioxide Anion Gap BUN Creatinine 0.74 Estim Creat Clear Calc 87.0 Estimated GFR > 60 POC Glucose 123 H Random Glucose Calcium Total Bilirubin AST ALT Alkaline Phosphatase Total Protein Albumin 11/19/21 11/19/21 11/20/21 07:56 07:56 06:10 WBC RBC Hgb Hct MCV MCH MCHC RDW Plt Count MPV Immature Gran % (Auto) Neut % (Auto) Lymph % (Auto) [place] % (Auto) Eos % (Auto) Baso % (Auto) Lymph # (Auto) [place] # (Auto) Eos # (Auto) Baso # (Auto) Abs Immat Gran (auto) Absolute Neuts (auto) Cancelled Absolute Nucleated RBC Nucleated RBC % (auto) Sodium 140 Potassium 4.3 Chloride 107 Carbon Dioxide 22 Anion Gap 15 BUN 13 Creatinine 0.76 Estim Creat Clear Calc 84.7 Estimated GFR > 60 POC Glucose 116 H Random Glucose 156 H Calcium 9.5 Total Bilirubin 0.6 AST 21 ALT 29 Alkaline Phosphatase 98 Total Protein 6.5 Albumin 4.1 Medications Medications Current Medications Acetaminophen (Acetaminophen 325 Mg Tablet) 650 mg PO Q6H PRN PRN Reason: Headache/Pain Mild Scale (1-3) Al Hydroxide/Mg Hydroxide (Magnesium Hydrox/Alum Hydrox 30 Ml Oral.Susp) 30 ml PO Q6H PRN PRN Reason: Heartburn/Nausea Last Admin: 10/02/21 14:41 Dose: 30 ml Documented by: Ascorbic Acid (Ascorbic Acid 500 Mg Tablet) 1,000 mg PO DAILY [facility] Last Admin: 11/20/21 08:03 Dose: 1,000 mg Documented by: Atorvastatin Calcium (Atorvastatin Calcium 10 Mg Tablet) 5 mg PO BEDTIME [facility] Last Admin: 11/19/21 21:29 Dose: 5 mg Documented by: Bupropion HCl (Bupropion Hcl 100 Mg Tablet) 100 mg PO DAILY [facility] Last Admin: 11/20/21 08:04 Dose: 100 mg Documented by: Clonidine HCl (Clonidine Hcl 0.1 Mg Tablet) 0.1 mg PO BID [facility]; Protocol Last Admin: 11/20/21 08:04 Dose: 0.1 mg Documented by: Clozapine (Clozapine 100 Mg Tablet) 150 mg PO BID [facility] Last Admin: 11/20/21 08:04 Dose: 150 mg Documented by: Cyanocobalamin (Cyanocobalamin (Vitamin B-12) 1,000 Mcg Tablet) 1,000 mcg PO DAILY [facility] Last Admin: 11/20/21 08:04 Dose: 1,000 mcg Documented by: Docusate Sodium (Docusate Sodium 100 Mg Capsule) 200 mg PO BEDTIME [facility] Last Admin: 11/19/21 21:26 Dose: 200 mg Documented by: Enoxaparin Sodium (Enoxaparin Sodium 40 Mg/0.4 Ml Syringe) 40 mg SUBCUT Q24H [facility] Last Admin: 11/20/21 11:27 Dose: 40 mg Documented by: Ferrous Sulfate (Ferrous Sulfate 324 Mg Tablet.Dr) 324 mg PO DAILY [facility] Last Admin: 11/20/21 08:04 Dose: 324 mg Documented by: Hydroxyzine HCl (Hydroxyzine Hcl 25 Mg Tablet) 25 mg PO BEDTIME PRN PRN Reason: Anxiety Last Admin: 10/31/21 02:30 Dose: 25 mg Documented by: Lorazepam (Lorazepam 1 Mg Tablet) 1 mg PO BID [facility] Last Admin: 11/20/21 08:04 Dose: 1 mg Documented by: Losartan Potassium (Losartan Potassium 25 Mg Tablet) 25 mg PO DAILY [facility]; Protocol Last Admin: 11/20/21 08:04 Dose: 25 mg Documented by: Lurasidone HCl (Lurasidone Hcl 20 Mg Tablet) 60 mg PO 1800 [facility] Last Admin: 11/19/21 18:25 Dose: 60 mg Documented by: Magnesium Hydroxide (Milk Of Magnesia 30 Ml Oral.Susp) 30 ml PO DAILY PRN PRN Reason: Constipation Metformin HCl (Metformin Hcl 1,000 Mg Tablet) 1,000 mg PO BID [facility] Last Admin: 11/20/21 08:03 Dose: 1,000 mg Documented by: Multivitamins/Vitamin C (Multivitamin Tablet) 1 tab PO DAILY [facility] Last Admin: 11/20/21 08:04 Dose: 1 tab Documented by: Neomycin/Polymyxin/Bacitracin (Neomy/Polymyx/Bacit/Ointment 14 Gm Tube) 1 gm TOPICAL BID [facility]; Protocol Last Admin: 11/20/21 08:38 Dose: Not Given Documented by: Non-Formulary Medication (Cinnamon) 1,000 mg PO DAILY [facility] Last Admin: 11/20/21 08:03 Dose: 1,000 mg Documented by: Patient Own Medication ( Empagliflozin 10 Mg) 1 each PO DAILY [facility] Last Admin: 11/20/21 08:03 Dose: 1 each Documented by: Patient Own Medication (Dwayne Red Softgels) 1 each PO DAILY [facility] Last Admin: 11/20/21 08:03 Dose: 1 each Documented by: Omeprazole (Omeprazole 20 Mg Capsule.) 20 mg PO DAILY@0630 [facility] Last Admin: 11/20/21 06:04 Dose: 20 mg Documented by: Ondansetron HCl (Ondansetron Odt 8 Mg Tab.Rapdis) 8 mg TRANSLINGU Q8H PRN PRN Reason: nausea Polyethylene Glycol (Polyethylene Glycol 3350 17 Gm Powd.Pack) 17 gm PO DAILY PRN PRN Reason: Constipation Last Admin: 11/06/21 12:24 Dose: 17 gm Documented by: Prazosin HCl (Prazosin Hcl 1 Mg Capsule) 1 mg PO BEDTIME PRN; Protocol PRN Reason: nightmares Last Admin: 10/30/21 21:53 Dose: 1 mg Documented by: Trazodone HCl (Trazodone Hcl 50 Mg Tablet) 50 mg PO BEDTIME PRN PRN Reason: Insomnia Last Admin: 11/19/21 21:36 Dose: 50 mg Documented by: Vitamin D (Cholecalciferol (Vitamin D3) 10 Mcg Tablet) 10 mcg PO DAILY [facility] Last Admin: 11/20/21 08:03 Dose: 10 mcg Documented by: Allergies Allergies Allergy/AdvReac Type Severity Reaction Status Date / Time lisinopril [LISINOPRIL] Allergy Unknown SWOLLEN Verified 09/17/21 08:42 LIPS, angioedema, swelling Assessment & Plan Assessment & Plan (1) Schizoaffective disorder: Status: Acute Code(s): F25.9 - Schizoaffective disorder, unspecified (2) Invasive ductal carcinoma of right breast: Status: Acute Code(s): C50.911 - Malignant neoplasm of unspecified site of right female breast (3) Hypertension: Qualifiers: Hypertension type: essential hypertension Qualified Code(s): I10 - Essential (primary) hypertension Status: Acute Code(s): I10 - Essential (primary) hypertension (4) Hypercholesterolemia: Status: Acute Code(s): E78.00 - Pure hypercholesterolemia, unspecified (5) Type 2 diabetes mellitus with hyperglycemia: Qualifiers: Diabetes mellitus ferry terminal 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 insulin use: without ferry terminal supervisor use Qualified Code(s): E11.65 - Type 2 diabetes mellitus with hyperglycemia Status: Acute Code(s): E11.65 - Type 2 diabetes mellitus with hyperglycemia Assessment and Plan: Continue metformin Jardiance monitor point of care (6) GERD (gastroesophageal reflux disease): Qualifiers: Esophagitis presence: without esophagitis Qualified Code(s): K21.9 - Gastro-esophageal reflux disease without esophagitis Status: Acute Code(s): K21.9 - Gastro-esophageal reflux disease without esophagitis Plan 50 yo female, hx of schizoaffective disorder, depressed with R breast cancer, having just completed first cycle of chemotherapy. Pt's partner and sister report to crisis team that pt has had a significant mental status change with psychotic symptoms, paranoia, perceptual alterations, poor sleep and significant thought blocking. Pt denies SI, HI. Today she is a very poor historian-almost pre-catatonic at times, considering signing a three day notice of intent. Team report by history she may not be comfortable in this facility. Assessment plan for 09/21/2021 Continue current medical treatment elevated white blood count noted over the past month question related to cancer treatment. No evidence of infection Patient depressed withdrawn preoccupied patient with recent treatment for ductal carcinoma stress of this might certainly lead to depressive almost catatonic episode 09/22/21 Pt with thought blocking improved from yeterday have restarted wellbutin hosp did not have sr cont clozapine evaluate baseline denies self harm oob more 09/23/21 Continue current plan of care. Collateral contacts with OP team, oncology. 09/24/21 Increase Abilify to 30 mg daily Pt currently refusing Lorazepam TDN expires 09/25/21-will file for civil commitment if pt persists in wanting discharge 09/25/21 Civil commitment filing completed Continue current regime. 09/26/21 Continue current regime 09/27/32 Decrease Abilify to 20 mg daily Risperdal 1.5 mg HS 09/28/21 Continue plan as above 09/29/21 No changes 09/30/21 Court 10/01/21 Chemotherapy 10/01/21 Increase Risperdal to 2.5 mg HS Decrease Abilify to 10 mg daily 10/02/21 Tolerating change back to Abilify from Risperdal Appetite is improved. Calmer, more visable, however continues with paranoia Jardiance ordered from [place] [facility] 10/03/21 Increase Abilify to 30 mg daily Will pursue validation of pt's HCP for continued chemotherapy Tentative chemotherapy 10/09. 10/04/21 Continue current regime 10/05 no changes to current regimen 10/06 no changes to current regimen 10/07/21 No positive effect from increase in Abilify Increase Clozaril to 100 mg bid, an increase of 50 mg daily, divided. Chemotherapy 10/09/21, Labs 10/08/21. 10/08/21 Tolerating Clozaril increase thus far Dexamethasone 4 mg hs and 4 mg a.m. pre chemo per Dr. Mora Support, encourage 10/09/21 Continue current plan of care 10/10/21 Continue current plan of care 10/11/21 Continue current plan. Will re-eval for Clozaril increase next week. 10/12/2021: Continue current regimen and plans. No changes were made today 10/13/2021: Continue current plans and regimen. 10/14/21: Increase Clozaril to 125 mg bid EKG, CBCD, CMP 10/15 prior to chemotherapy 10/15/21: Continue current plan of care 10/16/21: Continue current plan. Tolerating Clozaril increase 10/17/21: Continue current regime. 10/18/21: Increase Clozaril to 150 mg bid Decrease Abilify to 20 mg daily ECT Consult 10/19/21: continue meds unchanged 10/20/21: pt continue to present as paranoid, withdrawn 10/21/21: Continue current regime. Labs/EKG 10/22. Some improvement today. 10/22/21: Labs/EKG WNL Meeting 10/24 with health care proxy's to discuss clozaril discontinuation ECT Consult 10/24/21: Continue current plan. 10/25/21: Continue current plan. 10/26: ECT may be indicated. Change Ativan to standing dose. 10/27 Increase Ativan to 1 mg TID and watch for sedation 10/28/21: CBCD, CMP, EKG 10/29/21 in preparation for chemotherapy Await Clozapine level results. 10/29/21: ECT consult 10/30 Chemotherapy 10/30 Await Clozapine level results. Tentative plan to taper Abilify, titrate Latuda. Family/HCP in agreement. Pt agrees as well. 10/30/21: Decrease Abilify to 10 mg daily to prepare to begin Latuda 10/31/21: Continue current plan. 11/01/21: Discontinue Abilify Latuda 20 mg 1800 11/02/21: Continue current treatment plan 11/03/21: Continue current treatment plan 11/04/21: Tolerating Latuda. Pt asks not to titrate yet. Some improvement noted. 11/05/21: Chemotherapy 11/06. Ready to titrate Latuda-family will discuss with pt. Thus far, a positive result, without adverse effect. EKG reading pending Sister will not be taking pt to chemotherapy on 11/06 as her son has tested positive for COVID this afternoon. Partner Kailey will accompany pt. along with team. 11/06/21: Increase Latuda to 40 mg daily after evening meal. Increase Colace to 200 mg hs Miralax prn Per nursing report, pt will no longer need steroid dosing on Tuesdays before chemotherapy, but will receive dosing on Wednesdays in the chemotherapy dept. 11/07/21: Continue current plan. 11/08/21: Change Lorazepam prn to 1 mg bid 11/09/21: Tolerating Lorazepam. Continue plan of care. 11/10/21: Considering Latuda increase. 11/11/21: Increase Latuda to 60 mg daily. Labs pre chemotherapy. 11/12/21: Continue current plan. Care discussed with HCP Kailey- review of Ativan dosing, therapeutic Latuda dosing,pt's not understanding that her thought blocking, paranoia, belief that she will go to assisted are target sx for medication increase. 11/14/21: Continue current plan. Discharge planning with consistent improvement. 11/15/21: continue current medications per primary treatment team. 11/16/2021 Patient seen in psychiatric follow-up patient depressed withdrawn hopeless helpless despondent again discussed option of ECT 11/17/2021 Patient's case reviewed with nursing staff. Patient seen. Patient somewhat with cardoso affect today less withdrawn able to engage in discussion regarding Latuda and possibility of ECT treatment. Continue clozapine Latuda 11/18- discussed with significant other possibility of: underlying paraneoplastic syndrome related to breast carcinona- mainly 4 antibodies have been related to this type of cancer (AIR TRAFFIC CONTROL SUPERVISOR-2, Anti-yo (AIR TRAFFIC CONTROL SUPERVISOR-1); Anti-RI (corona-2); and antiamphiphysin) mostly causing cerebellar disfunction including opsoclonus (and myoclonus) which pt appears to have along with other cognitive and psychiatric symptoms. Will order MRI- r/o encephalitis related to chemo or any limbic/cerebellar pathology. Sent message to oncologist. Pt does psychiatric condition appears to significantly improved with dexamethaxone. Also if classic paraneoplastic, which is the one mostly related to cancer tumors, serum antibodies testing may suffice (without CSF testing). 11/19 continue current medications- pending mri, paraneoplastic panel. 11/20- continue current medications, pending discussion with oncology re: paraneoplastic syndome, pending MRI I spent ___25___ minutes with the patient and/or on the patient floor today, greater than?50% of which was spent counseling/coordinating care. Reason for contiued inpatient stay Substantial Risk for: inability to function
[2021-11-20] MEDS: Lurasidone HCl 20 MG TABLET 60 MG PO (18:11)
[2021-11-20 20:45] VITALS: BP 135/88; PULSE 112; TEMP 36.4; O2SAT 98
[2021-11-20] MEDS: Docusate Sodium 100 MG CAPSULE 200 MG PO (20:49)
[2021-11-20] MEDS: Atorvastatin Calcium 10 MG TABLET 5 MG PO (20:51)
[2021-11-20] MEDS: traZODone HCL 50 MG TABLET PO (21:02)
[2021-11-21] MEDS: Omeprazole 20 MG CAPSULE.DR PO (06:07)
[2021-11-21 06:31] LABS: Glucose, Whole Blood 109 mg/dL (60-115)
[2021-11-21 07:00] VITALS: BMI 30.9
[2021-11-21] MEDS: LORazepam 1 MG TABLET PO ×2 (08:26→21:19)
[2021-11-21] MEDS: cloZAPine 100 MG TABLET 150 MG PO ×2 (08:26→21:19)
[2021-11-21] MEDS: cloNIDine HCL 0.1 MG TABLET PO ×2 (08:26→21:18)
[2021-11-21] MEDS: Ferrous Sulfate 324 MG TABLET.DR PO (08:27)
[2021-11-21] MEDS: metFORMIN HCl 1,000 MG TABLET 1000 MG PO ×2 (08:27→21:18)
[2021-11-21] MEDS: Cyanocobalamin (Vitamin B-12) 1,000 MCG TABLET 1000 MCG PO (08:27)
[2021-11-21] MEDS: Ascorbic Acid 500 MG TABLET 1000 MG PO (08:27)
[2021-11-21] MEDS: Losartan Potassium 25 MG TABLET PO (08:27)
[2021-11-21] MEDS: Multivitamin TABLET 1 TAB PO (08:27)
[2021-11-21] MEDS: Cholecalciferol (Vitamin D3) 10 MCG TABLET PO (08:27)
[2021-11-21] MEDS: buPROPion HCL 100 MG TABLET PO (08:27)
[2021-11-21 08:37] VITALS: BP 142/74; PULSE 100; RESP 18; TEMP 36.3; O2SAT 100
--- NOTE | 2021-11-21 11:26 | P.PNPSI_ITS ---
Subjective Subjective Date of Service: 11/21/21 Reason For Visit: Depression paranoia Subjective Notes: Conditional Voluntary Interim History: Pt with constricted affect, does ask this underwriter mortgage loan if we will meet today. Per nursing, this morning pt told RN if she was playing games with her. She denied SI.HI. But reports she goes back and forth about whether she is in trouble with law enforcement or not- this time related to thoughts she had about hurting someone. She has been visible in the unit, retardation noted, unsteady gait, opsoclunos noted at times during interview. Medication Compliance: Yes Side effects from medications: No Attending Groups: Yes Review of Systems Review of Systems Most of the problems were psychiatric in nature. There was no recent cold or flu-like illness headache or change in bowel bladder pattern Yes all other systems are reviewed and are negative and Unobtainable due to mental status Reports behavioral changes, Reports confusion and Reports memory loss Psychiatric: Reports abnormal sleep pattern (pt reports due to new room-mate), Reports anxiety, Reports behavioral changes, Reports confusion, Reports depression, Reports difficulty concentrating, Reports auditory hallucinations, Reports hopelessness, Reports anhedonia, Reports memory loss, Reports mood swings, Reports paranoia, Reports hallucinations, Reports homicidal ideation (denies) and Reports suicidal ideation (denies) Diagnostics Vital Signs (24Hr): Vital Signs - 24 hr 11/24/21 09:18 11/24/21 20:35 Temperature 97.9 F Pulse Rate 112 H 116 H Respiratory Rate 18 Blood Pressure 140/81 H 119/76 Pulse Oximetry 99 BMI result Body Mass Index 30.9 Labs Results: 11/19/21 07:56 11/19/21 07:56 Labs: Laboratory Results - last 48 hr 11/24/21 11/25/21 06:00 06:23 POC Glucose 104 122 H Imaging Radiology Impressions: ITS Impressions Brain MRI 11/20/21 13:00 IMPRESSION: 1. No acute intracranial abnormalities. 2. Mild underlying microangiopathy and generalized cerebral volume loss. Medications Medications Current Medications Acetaminophen (Acetaminophen 325 Mg Tablet) 650 mg PO Q6H PRN PRN Reason: Headache/Pain Mild Scale (1-3) Last Admin: 11/22/21 08:44 Dose: 650 mg Documented by: Al Hydroxide/Mg Hydroxide (Magnesium Hydrox/Alum Hydrox 30 Ml Oral.Susp) 30 ml PO Q6H PRN PRN Reason: Heartburn/Nausea Last Admin: 10/02/21 14:41 Dose: 30 ml Documented by: Ascorbic Acid (Ascorbic Acid 500 Mg Tablet) 1,000 mg PO DAILY [facility] Last Admin: 11/24/21 09:09 Dose: 1,000 mg Documented by: Atorvastatin Calcium (Atorvastatin Calcium 10 Mg Tablet) 5 mg PO BEDTIME [facility] Last Admin: 11/24/21 20:51 Dose: 5 mg Documented by: Clonidine HCl (Clonidine Hcl 0.1 Mg Tablet) 0.1 mg PO BID [facility]; Protocol Last Admin: 11/24/21 20:51 Dose: 0.1 mg Documented by: Clozapine (Clozapine 100 Mg Tablet) 150 mg PO BID [facility] Last Admin: 11/24/21 20:51 Dose: 150 mg Documented by: Cyanocobalamin (Cyanocobalamin (Vitamin B-12) 1,000 Mcg Tablet) 1,000 mcg PO DAILY [facility] Last Admin: 11/24/21 09:09 Dose: 1,000 mcg Documented by: Docusate Sodium (Docusate Sodium 100 Mg Capsule) 200 mg PO BEDTIME [facility] Last Admin: 11/24/21 20:51 Dose: 200 mg Documented by: Enoxaparin Sodium (Enoxaparin Sodium 40 Mg/0.4 Ml Syringe) 40 mg SUBCUT Q24H [facility] Last Admin: 11/24/21 11:40 Dose: 40 mg Documented by: Ferrous Sulfate (Ferrous Sulfate 324 Mg Tablet.Dr) 324 mg PO DAILY [facility] Last Admin: 11/24/21 09:09 Dose: 324 mg Documented by: Hydroxyzine HCl (Hydroxyzine Hcl 25 Mg Tablet) 25 mg PO BEDTIME PRN PRN Reason: Anxiety Last Admin: 10/31/21 02:30 Dose: 25 mg Documented by: Lorazepam (Lorazepam 1 Mg Tablet) 1 mg PO BID [facility] Last Admin: 11/24/21 20:51 Dose: 1 mg Documented by: Losartan Potassium (Losartan Potassium 25 Mg Tablet) 25 mg PO DAILY [facility]; Protocol Last Admin: 11/24/21 09:09 Dose: 25 mg Documented by: Lurasidone HCl (Lurasidone Hcl 20 Mg Tablet) 60 mg PO 1800 [facility] Last Admin: 11/24/21 18:31 Dose: 60 mg Documented by: Magnesium Hydroxide (Milk Of Magnesia 30 Ml Oral.Susp) 30 ml PO DAILY PRN PRN Reason: Constipation Metformin HCl (Metformin Hcl 1,000 Mg Tablet) 1,000 mg PO BID [facility] Last Admin: 11/24/21 20:51 Dose: 1,000 mg Documented by: Multivitamins/Vitamin C (Multivitamin Tablet) 1 tab PO DAILY [facility] Last Admin: 11/24/21 09:09 Dose: 1 tab Documented by: Neomycin/Polymyxin/Bacitracin (Neomy/Polymyx/Bacit/Ointment 14 Gm Tube) 1 gm TOPICAL BID [facility]; Protocol Last Admin: 11/24/21 20:57 Dose: Not Given Documented by: Non-Formulary Medication (Cinnamon) 1,000 mg PO DAILY [facility] Last Admin: 11/24/21 09:08 Dose: 1,000 mg Documented by: Patient Own Medication ( Empagliflozin 10 Mg) 1 each PO DAILY [facility] Last Admin: 11/24/21 09:09 Dose: 1 each Documented by: Patient Own Medication (Dwayne Red Softgels) 1 each PO DAILY [facility] Last Admin: 11/24/21 09:08 Dose: 1 each Documented by: Omeprazole (Omeprazole 20 Mg Capsule.Dr) 20 mg PO DAILY@0630 [facility] Last Admin: 11/25/21 06:21 Dose: 20 mg Documented by: Ondansetron HCl (Ondansetron Odt 8 Mg Tab.Rapdis) 8 mg TRANSLINGU Q8H PRN PRN Reason: nausea Polyethylene Glycol (Polyethylene Glycol 3350 17 Gm Powd.Pack) 17 gm PO DAILY PRN PRN Reason: Constipation Last Admin: 11/06/21 12:24 Dose: 17 gm Documented by: Prazosin HCl (Prazosin Hcl 1 Mg Capsule) 1 mg PO BEDTIME PRN; Protocol PRN Reason: nightmares Last Admin: 10/30/21 21:53 Dose: 1 mg Documented by: Trazodone HCl (Trazodone Hcl 50 Mg Tablet) 50 mg PO BEDTIME PRN PRN Reason: Insomnia Last Admin: 11/24/21 20:55 Dose: 50 mg Documented by: Vitamin D (Cholecalciferol (Vitamin D3) 10 Mcg Tablet) 10 mcg PO DAILY [facility] Last Admin: 11/24/21 09:09 Dose: 10 mcg Documented by: Allergies Allergies Allergy/AdvReac Type Severity Reaction Status Date / Time lisinopril [LISINOPRIL] Allergy Unknown SWOLLEN Verified 09/17/21 08:42 LIPS, angioedema, swelling Assessment & Plan Assessment & Plan (1) Facial weakness: Status: Acute Code(s): R29.810 - Facial weakness (2) Encephalopathy: Status: Acute Code(s): G93.40 - Encephalopathy, unspecified Assessment and Plan: 51 years old woman who has underlying diagnosis of she has affective disorder recently has been diagnosed with breast cancer and is undergoing chemotherapy. At this time she was going through excessive [place] geller of her psychiatric illness likely related to the stress and depression related to breast cancer. I do not find any significant parkinsonism, ataxia of the type 1 could see with paraneoplastic syndrome, which usually is of cerebellar type. Her reflexes are absent, which could be chronic and could be investigated by outpatient EMG nerve conduction study as she might have underlying peripheral neuropathy. 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 Overall my index of suspicion for paraneoplastic syndrome is low. Also she already is being treated. Finding antibody positivity might not change overall management. (3) Schizoaffective disorder: Status: Acute Code(s): F25.9 - Schizoaffective disorder, unspecified Plan 50 yo female, hx of schizoaffective disorder, depressed with R breast cancer, having just completed first cycle of chemotherapy. Pt's partner and sister report to crisis team that pt has had a significant mental status change with psychotic symptoms, paranoia, perceptual alterations, poor sleep and significant thought blocking. Pt denies SI, HI. Today she is a very poor historian-almost pre-catatonic at times, considering signing a three day notice of intent. Team report by history she may not be comfortable in this facility. Assessment plan for 09/21/2021 Continue current medical treatment elevated white blood count noted over the past month question related to cancer treatment.? No evidence of infection Patient depressed withdrawn preoccupied patient with recent treatment for ductal carcinoma stress of this might certainly lead to depressive almost catatonic episode 09/22/21 Pt with thought blocking improved from yeterday have restarted wellbutin hosp did not have sr cont clozapine evaluate baseline denies self harm oob more 09/23/21 Continue current plan of care. Collateral contacts with OP team, oncology. 09/24/21 Increase Abilify to 30 mg daily Pt currently refusing Lorazepam TDN expires 09/25/21-will file for civil commitment if pt persists in wanting discharge 09/25/21 Civil commitment filing completed Continue current regime. 09/26/21 Continue current regime 09/27/32 Decrease Abilify to 20 mg daily Risperdal 1.5 mg HS 09/28/21 Continue plan as above 09/29/21 No changes 09/30/21 Court 10/01/21 Chemotherapy 10/01/21 Increase Risperdal to 2.5 mg HS Decrease Abilify to 10 mg daily 10/02/21 Tolerating change back to Abilify from Risperdal Appetite is improved. Calmer, more visable, however continues with paranoia Jardiance ordered from [facility] 10/03/21 Increase Abilify to 30 mg daily Will pursue validation of pt's HCP for continued chemotherapy Tentative chemotherapy 10/09. 10/04/21 Continue current regime 10/05 no changes to current regimen 10/06 no changes to current regimen 10/07/21 No positive effect from increase in Abilify Increase Clozaril to 100 mg bid, an increase of 50 mg daily, divided. Chemotherapy 10/09/21, Labs 10/08/21. 10/08/21 Tolerating Clozaril increase thus far Dexamethasone 4 mg hs and 4 mg a.m. pre chemo per Dr. Mora Support, encourage 10/09/21 Continue current plan of care 10/10/21 Continue current plan of care 10/11/21 Continue current plan. Will re-eval for Clozaril increase next week. 10/12/2021: Continue current regimen and plans.? No changes were made today 10/13/2021: Continue current plans and regimen. 10/14/21: Increase Clozaril to 125 mg bid ? EKG, CBCD, CMP 10/15 prior to chemotherapy 10/15/21: Continue current plan of care 10/16/21: Continue current plan. Tolerating Clozaril increase 10/17/21: Continue current regime. 10/18/21: Increase Clozaril to 150 mg bid ? Decrease Abilify to 20 mg daily ? ECT Consult 10/19/21: continue meds unchanged 10/20/21: pt continue to present as paranoid, withdrawn 10/21/21: Continue current regime. Labs/EKG 10/22. Some improvement today. 10/22/21: Labs/EKG WNL ? Meeting 10/24 with health care proxy's to discuss clozaril discontinuation ? ECT Consult 10/24/21: Continue current plan. 10/25/21: Continue current plan. 10/26: ECT may be indicated. Change Ativan to standing dose. 10/27 Increase Ativan to 1 mg TID and watch for sedation 10/28/21: CBCD, CMP, EKG 10/29/21 in preparation for chemotherapy ? Await Clozapine level results. 10/29/21: ECT consult 10/30 ? Chemotherapy 10/30 ? Await Clozapine level results. ? Tentative plan to taper Abilify, titrate Latuda. ? Family/HCP in agreement. Pt agrees as well. 10/30/21: Decrease Abilify to 10 mg daily to prepare to begin Latuda 10/31/21: Continue current plan. 11/01/21: Discontinue Abilify ? Latuda 20 mg 1800 11/02/21:? Continue current treatment plan 11/03/21:? Continue current treatment plan 11/04/21: Tolerating Latuda. Pt asks not to titrate yet. Some improvement noted. 11/05/21: Chemotherapy 11/06. Ready to titrate Latuda-family will discuss with pt. Thus far, a positive result, without adverse effect. ? EKG reading pending ? Sister will not be taking pt to chemotherapy on 11/06 as her son has tested positive for COVID this afternoon. Partner Kailey will accompany pt. along with team. 11/06/21: Increase Latuda to 40 mg daily after evening meal. ? Increase Colace to 200 mg hs ? Miralax prn ? Per nursing report, pt will no longer need steroid dosing on Tuesdays before chemotherapy, but will receive dosing on Wednesdays in the chemotherapy dept. 11/07/21: Continue current plan. 11/08/21: Change Lorazepam prn to 1 mg bid 11/09/21: Tolerating Lorazepam. Continue plan of care. 11/10/21: Considering Latuda increase. 11/11/21: Increase Latuda to 60 mg daily. Labs pre chemotherapy. 11/12/21: Continue current plan. Care discussed with HCP Kailey- review of Ativan dosing, therapeutic Latuda dosing,pt's not understanding that her thought blocking, paranoia, belief that she will go to [facility] are target sx for medication increase. 11/14/21: Continue current plan. Discharge planning with consistent improvement. 11/15/21: continue current medications per primary treatment team. 11/16/2021 Patient seen in psychiatric follow-up patient depressed withdrawn hopeless helpless despondent again discussed option of ECT 11/17/2021 Patient's case reviewed with nursing staff.? Patient seen.? Patient somewhat with cardoso affect today less withdrawn able to engage in discussion regarding Latuda and possibility of ECT treatment.? Continue clozapine Latuda 11/18- discussed with significant other possibility of: underlying paraneoplastic syndrome related to breast carcinona- mainly 4 antibodies have been related to this type of cancer (JEWELRY SALESPERSON-2, Anti-yo (JEWELRY SALESPERSON-1); Anti-RI (corona-2); and antiamphiphysin) mostly causing cerebellar disfunction including opsoclonus (and myoclonus) which pt appears to have along with other cognitive and psychiatric symptoms. Will order MRI- r/o encephalitis related to chemo or any limb ic/cerebellar pathology. Sent message to oncologist. Pt does psychiatric condition appears to significantly improved with dexamethaxone. Also if classic paraneoplastic, which is the one mostly related to cancer tumors,? serum antibodies testing may suffice (without CSF testing).? 11/19 continue current medications- pending mri, paraneoplastic panel. 11/20- continue current medications, pending discussion with oncology re: paraneoplastic syndome, pending MRI 11/21 will d/c wellbutrin as it can worsen psychosis. continue all other meds. MRI shows microvascular changes and atrophy- moca at this time wouldn't be accurate given prominent psych symptoms. I spent _25 minutes with the patient and/or on the patient floor today, greater than?50% of which was spent counseling/coordinating care. Reason for contiued inpatient stay Substantial Risk for: harm to self and inability to function
[2021-11-21] MEDS: Enoxaparin Sodium 40 MG/0.4 ML SYRINGE SUBCUT (12:23)
[2021-11-21] MEDS: Lurasidone HCl 20 MG TABLET 60 MG PO (17:42)
[2021-11-21 21:00] VITALS: BP 138/88; PULSE 113; RESP 20; TEMP 36.4; O2SAT 100
[2021-11-21] MEDS: traZODone HCL 50 MG TABLET PO (21:16)
[2021-11-21] MEDS: Atorvastatin Calcium 10 MG TABLET 5 MG PO (21:16)
[2021-11-21] MEDS: Docusate Sodium 100 MG CAPSULE 200 MG PO (21:16)
[2021-11-22] MEDS: Omeprazole 20 MG CAPSULE.DR PO (06:43)
[2021-11-22 06:57] LABS: Glucose, Whole Blood 116 mg/dL (60-115)
[2021-11-22] MEDS: Ascorbic Acid 500 MG TABLET 1000 MG PO (08:26)
[2021-11-22] MEDS: Multivitamin TABLET 1 TAB PO (08:26)
[2021-11-22] MEDS: LORazepam 1 MG TABLET PO ×2 (08:27→20:56)
[2021-11-22] MEDS: metFORMIN HCl 1,000 MG TABLET 1000 MG PO ×2 (08:27→20:56)
[2021-11-22] MEDS: cloZAPine 100 MG TABLET 150 MG PO ×2 (08:27→20:56)
[2021-11-22] MEDS: cloNIDine HCL 0.1 MG TABLET PO ×2 (08:27→20:55)
[2021-11-22] MEDS: Cyanocobalamin (Vitamin B-12) 1,000 MCG TABLET 1000 MCG PO (08:27)
[2021-11-22] MEDS: Cholecalciferol (Vitamin D3) 10 MCG TABLET PO (08:27)
[2021-11-22] MEDS: Ferrous Sulfate 324 MG TABLET.DR PO (08:27)
[2021-11-22] MEDS: Losartan Potassium 25 MG TABLET PO (08:27)
[2021-11-22 08:33] VITALS: BP 130/71; PULSE 109; RESP 16; TEMP 36.6; O2SAT 100
[2021-11-22] MEDS: Acetaminophen 325 MG TABLET 650 MG PO (08:44)
[2021-11-22] MEDS: Enoxaparin Sodium 40 MG/0.4 ML SYRINGE SUBCUT (12:26)
--- NOTE | 2021-11-22 13:20 | P.CNNE_ITS ---
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 Recently her psychiatric status worsened resulting in significant psychotic symptoms and she was admitted on psychiatric floor. She was noted to have multiple physical symptoms and question of possible paraneoplastic syndrome was raised. She did not volunteer any discomfort or pain. Her psychiatric history was already documented in detail. There was no evidence of any seizure. No recent focal weakness was noted. Review of Systems Review of Systems: Most of the problems were psychiatric in nature. There was no recent cold or flu-like illness headache or change in bowel bladder pattern PMFSH Past Medical History Medical History (Updated 11/22/21 @ 13:24 by Olimpia Guan MD) Arthritis Breast cancer Facial paralysis GERD (gastroesophageal reflux disease) Hearing loss Hiatal hernia Hypercholesterolemia Hypertension Iron deficiency anemia Obesity Schizoaffective disorder Schizophrenia Tachycardia Type 2 diabetes mellitus with hyperglycemia Family History Family History Father Medical history unknown Mother Medical history unknown Surgical History Surgical History Hemiparesis History of eye surgery History of lumpectomy of right breast History of placement of ear tubes Social History Social History Household Members: Significant Other Housing: [facility] Are you a primary cattle care worker to a significant other at home: No Do you presently have visiting nurse or other home services: Yes Alcohol intake: current Alcohol intake frequency: holidays/special occasions only Alcohol type: beer and wine Patient Tobacco Use Status: Never used Tobacco e-Cigarette/Vaping Use: Never Used Second Hand Smoke Exposure: No Use of substances other than those prescribed or required for medical reasons: No Advance Directives Date on File: 06/24/21 service: No Current occupational status: unemployed Sexual orientation: Lesbian/Reyes/Homosexual Meds Allergies Allergy/AdvReac Type Severity Reaction Status Date / Time lisinopril [LISINOPRIL] Allergy Unknown SWOLLEN Verified 09/17/21 08:42 LIPS, angioedema, swelling Active Medications: Current Medications Acetaminophen (Acetaminophen 325 Mg Tablet) 650 mg PO Q6H PRN PRN Reason: Headache/Pain Mild Scale (1-3) Last Admin: 11/22/21 08:44 Dose: 650 mg Documented by: Al Hydroxide/Mg Hydroxide (Magnesium Hydrox/Alum Hydrox 30 Ml Oral.Susp) 30 ml PO Q6H PRN PRN Reason: Heartburn/Nausea Last Admin: 10/02/21 14:41 Dose: 30 ml Documented by: Ascorbic Acid (Ascorbic Acid 500 Mg Tablet) 1,000 mg PO DAILY [facility] Last Admin: 11/22/21 08:26 Dose: 1,000 mg Documented by: Atorvastatin Calcium (Atorvastatin Calcium 10 Mg Tablet) 5 mg PO BEDTIME [facility] Last Admin: 11/21/21 21:16 Dose: 5 mg Documented by: Clonidine HCl (Clonidine Hcl 0.1 Mg Tablet) 0.1 mg PO BID [facility]; Protocol Last Admin: 11/22/21 08:27 Dose: 0.1 mg Documented by: Clozapine (Clozapine 100 Mg Tablet) 150 mg PO BID [facility] Last Admin: 11/22/21 08:27 Dose: 150 mg Documented by: Cyanocobalamin (Cyanocobalamin (Vitamin B-12) 1,000 Mcg Tablet) 1,000 mcg PO DAILY [facility] Last Admin: 11/22/21 08:27 Dose: 1,000 mcg Documented by: Docusate Sodium (Docusate Sodium 100 Mg Capsule) 200 mg PO BEDTIME [facility] Last Admin: 11/21/21 21:16 Dose: 200 mg Documented by: Enoxaparin Sodium (Enoxaparin Sodium 40 Mg/0.4 Ml Syringe) 40 mg SUBCUT Q24H [facility] Last Admin: 11/22/21 12:26 Dose: 40 mg Documented by: Ferrous Sulfate (Ferrous Sulfate 324 Mg Tablet.Dr) 324 mg PO DAILY [facility] Last Admin: 11/22/21 08:27 Dose: 324 mg Documented by: Hydroxyzine HCl (Hydroxyzine Hcl 25 Mg Tablet) 25 mg PO BEDTIME PRN PRN Reason: Anxiety Last Admin: 10/31/21 02:30 Dose: 25 mg Documented by: Lorazepam (Lorazepam 1 Mg Tablet) 1 mg PO BID [facility] Last Admin: 11/22/21 08:27 Dose: 1 mg Documented by: Losartan Potassium (Losartan Potassium 25 Mg Tablet) 25 mg PO DAILY [facility]; Protocol Last Admin: 11/22/21 08:27 Dose: 25 mg Documented by: Lurasidone HCl (Lurasidone Hcl 20 Mg Tablet) 60 mg PO 1800 [facility] Last Admin: 11/21/21 17:42 Dose: 60 mg Documented by: Magnesium Hydroxide (Milk Of Magnesia 30 Ml Oral.Susp) 30 ml PO DAILY PRN PRN Reason: Constipation Metformin HCl (Metformin Hcl 1,000 Mg Tablet) 1,000 mg PO BID [facility] Last Admin: 11/22/21 08:27 Dose: 1,000 mg Documented by: Multivitamins/Vitamin C (Multivitamin Tablet) 1 tab PO DAILY [facility] Last Admin: 11/22/21 08:26 Dose: 1 tab Documented by: Neomycin/Polymyxin/Bacitracin (Neomy/Polymyx/Bacit/Ointment 14 Gm Tube) 1 gm TOPICAL BID [facility]; Protocol Last Admin: 11/22/21 09:10 Dose: Not Given Documented by: Non-Formulary Medication (Cinnamon) 1,000 mg PO DAILY [facility] Last Admin: 11/22/21 08:26 Dose: 1,000 mg Documented by: Patient Own Medication ( Empagliflozin 10 Mg) 1 each PO DAILY [facility] Last Admin: 11/22/21 08:26 Dose: 1 each Documented by: Patient Own Medication (Dwayne Red Softgels) 1 each PO DAILY [facility] Last Admin: 11/22/21 08:26 Dose: 1 each Documented by: Omeprazole (Omeprazole 20 Mg Capsule.) 20 mg PO DAILY@0630 [facility] Last Admin: 11/22/21 06:43 Dose: 20 mg Documented by: Ondansetron HCl (Ondansetron Odt 8 Mg Tab.Rapdis) 8 mg TRANSLINGU Q8H PRN PRN Reason: nausea Polyethylene Glycol (Polyethylene Glycol 3350 17 Gm Powd.Pack) 17 gm PO DAILY PRN PRN Reason: Constipation Last Admin: 11/06/21 12:24 Dose: 17 gm Documented by: Prazosin HCl (Prazosin Hcl 1 Mg Capsule) 1 mg PO BEDTIME PRN; Protocol PRN Reason: nightmares Last Admin: 10/30/21 21:53 Dose: 1 mg Documented by: Trazodone HCl (Trazodone Hcl 50 Mg Tablet) 50 mg PO BEDTIME PRN PRN Reason: Insomnia Last Admin: 11/21/21 21:16 Dose: 50 mg Documented by: Vitamin D (Cholecalciferol (Vitamin D3) 10 Mcg Tablet) 10 mcg PO DAILY [facility] Last Admin: 11/22/21 08:27 Dose: 10 mcg Documented by: Home Medications Medication Instructions Recorded Confirmed Last Taken Type aripiprazole 20 mg tablet 20 mg PO QAM 09/19/21 09/19/21 Unknown History bupropion HCl 100 mg tablet,12 hr 100 mg PO QAM 09/19/21 09/19/21 Unknown History sustained-release clonidine HCl 0.1 mg tablet 0.1 mg PO BID PRN 09/19/21 09/19/21 Unknown History clozapine 25 mg tablet 25 mg PO BID 09/19/21 09/19/21 09/19/21 09:00 History clozapine 50 mg tablet 50 mg PO BID 09/19/21 09/19/21 09/19/21 09:00 History docusate sodium 100 mg capsule 100 mg PO DAILY 09/19/21 09/19/21 Unknown History losartan 25 mg tablet 25 mg PO DAILY 09/19/21 09/19/21 Unknown History metformin 1,000 mg tablet 1,000 mg PO BID 09/19/21 09/19/21 Unknown History omeprazole 20 mg capsule,delayed 20 mg PO DAILY 09/19/21 09/19/21 Unknown History release ondansetron 8 mg disintegrating 8 mg PO Q8H PRN 09/19/21 09/19/21 Unknown History tablet simvastatin 5 mg tablet 5 mg PO BEDTIME 09/19/21 09/19/21 Unknown History Physical Exam Vital Signs: Vital Signs: Last Vital Signs Temp 97.9 F 11/22/21 08:33 Pulse 109 H 11/22/21 08:33 Resp 16 11/22/21 08:33 BP 130/71 11/22/21 08:33 Pulse Ox 100 11/22/21 08:33 BMI result Body Mass Index 30.9 Neuro: Other: She was alert and awake with normal spontaneity of speech fluency comprehension and flat affect. Pupils were round reactive. Right eye external ocular muscles were intact. In left eye she could not bring her I would to the right from midline. There was [id number] left-sided facial weakness. Tongue was midline. There was no pronator drift. [id number] testing was normal. Deep tendon reflexes are absent. Plantars were flexors. She was able to get up and walk around and reasonably cautious gait. There was no significant tremor or rigidity. Affect was depressed. Speech was slightly dysphasic probably related to facial weakness. Results Labs CBC & Chem 7: 11/19/21 07:56 11/19/21 07:56 Labs: Noncontrast MRI of brain did not reveal any significant pathology Microbiology Microbiology Results: Microbiology 10/03/21 19:15 Urine clean catch - Urine roberts top Urine Culture - Final Assessment and Plan (1) Facial weakness: Status: Acute (2) Encephalopathy: Status: Acute 51 years old woman who has underlying diagnosis of she has affective disorder recently has been diagnosed with breast cancer and is undergoing chemotherapy. At this time she was going through excessive [place] geller of her psychiatric illness likely related to the stress and depression related to breast cancer. I do not find any significant parkinsonism, ataxia of the type 1 could see with paraneoplastic syndrome, which usually is of cerebellar type. Her reflexes are absent, which could be chronic and could be investigated by outpatient EMG nerve conduction study as she might have underlying peripheral neuropathy. 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 Overall my index of suspicion for paraneoplastic syndrome is low. Also she already is being treated. Finding antibody positivity might not change overall management. Procedures Date of Service Date of Service: 11/22/21
--- NOTE | 2021-11-22 14:15 | P.PNPSI_ITS ---
Subjective Subjective Date of Service: 11/22/21 Reason For Visit: Depression paranoia Subjective Notes: Conditional Voluntary Interim History: Pt continues to present with psychomotor retardation, on and off delusions of being in trouble with law enforcement continue. She is sleeping well. She is also eating well. Family meeting to discuss results of MRI, gathering history of neurological symptoms- opsoclunus, bradykenisia, ataxic gait, mental fogginess, brief changes in vision, insidious course of psychosis. Pt denies SI/HI. Review of Systems Review of Systems Most of the problems were psychiatric in nature. There was no recent cold or flu-like illness headache or change in bowel bladder pattern Yes all other systems are reviewed and are negative and Unobtainable due to mental status Reports behavioral changes, Reports confusion and Reports memory loss Psychiatric: Reports abnormal sleep pattern (pt reports due to new room-mate), Reports anxiety, Reports behavioral changes, Reports confusion, Reports depression, Reports difficulty concentrating, Reports auditory hallucinations, Reports hopelessness, Reports anhedonia, Reports memory loss, Reports mood swings, Reports paranoia, Reports hallucinations, Reports homicidal ideation (denies) and Reports suicidal ideation (denies) Mental Status Exam Mental Status Exam Narrative: Patient Appearance:?Appropriate Patient Orientation:?Person, Place, Time and Situation Level of Consciousness:?Alert Patient Behavior:?Guarded, Cooperative, Passive, Suspicious, Timid, Anxious, Fearful, Avoidant, Fatigued, Distractible, Isolative and Good Eye Contact Mood Description:?Depressed Affect Description:?Flat Patient Cognition Impaired:?Yes Ability to Follow Directions:?Good Speech Pattern:?slowed Memory Description:?Episodic Impaired Hallucinations:?None Delusions:?Paranoid Ideation Perceptual Disturbances:?Depersonalization and Derealization Thought Process:?Distracted and Rumination Thought Content:?positive for Dickson, positive for Circumstantial, positive for Disorganized (per pt report) and positive for Suicidal Ideation Depressive Symptoms:?Increased Anxiety, Diff. Making Decisions, Loss of Int. in Activity, Feelings of Worthlessness, Hopelessness, Isolating-Friends/Family, Feelings of Guilt, Unhappiness, Increased Fatigue, Thoughts of /Suicide, Low Self Esteem, Loss of Energy and Difficulty Concentrating Judgement:?Poor Patient Appearance: Appropriate Patient Orientation: Person, Place, Time and Situation Level of Consciousness: Alert Patient Behavior: Guarded, Talkative and Good Eye Contact Mood Description: Flat Affect Description: Flat Patient Cognition Impaired: No Ability to Follow Directions: Good Speech Pattern: Perseverating, Spontaneous Speech, Soft-Spoken and Long Pauses (present, but decreasing) Memory Description: Episodic Impaired Diagnostics Vital Signs (24Hr): Vital Signs - 24 hr 11/24/21 09:18 11/24/21 20:35 Temperature 97.9 F Pulse Rate 112 H 116 H Respiratory Rate 18 Blood Pressure 140/81 H 119/76 Pulse Oximetry 99 BMI result Body Mass Index 30.9 Labs Results: 11/19/21 07:56 11/19/21 07:56 Labs: Laboratory Results - last 48 hr 11/24/21 11/25/21 06:00 06:23 POC Glucose 104 122 H Imaging Radiology Impressions: ITS Impressions Brain MRI 11/20/21 13:00 IMPRESSION: 1. No acute intracranial abnormalities. 2. Mild underlying microangiopathy and generalized cerebral volume loss. Medications Medications Current Medications Acetaminophen (Acetaminophen 325 Mg Tablet) 650 mg PO Q6H PRN PRN Reason: Headache/Pain Mild Scale (1-3) Last Admin: 11/22/21 08:44 Dose: 650 mg Documented by: Al Hydroxide/Mg Hydroxide (Magnesium Hydrox/Alum Hydrox 30 Ml Oral.Susp) 30 ml PO Q6H PRN PRN Reason: Heartburn/Nausea Last Admin: 10/02/21 14:41 Dose: 30 ml Documented by: Ascorbic Acid (Ascorbic Acid 500 Mg Tablet) 1,000 mg PO DAILY [facility] Last Admin: 11/24/21 09:09 Dose: 1,000 mg Documented by: Atorvastatin Calcium (Atorvastatin Calcium 10 Mg Tablet) 5 mg PO BEDTIME [facility] Last Admin: 11/24/21 20:51 Dose: 5 mg Documented by: Clonidine HCl (Clonidine Hcl 0.1 Mg Tablet) 0.1 mg PO BID [facility]; Protocol Last Admin: 11/24/21 20:51 Dose: 0.1 mg Documented by: Clozapine (Clozapine 100 Mg Tablet) 150 mg PO BID [facility] Last Admin: 11/24/21 20:51 Dose: 150 mg Documented by: Cyanocobalamin (Cyanocobalamin (Vitamin B-12) 1,000 Mcg Tablet) 1,000 mcg PO DAILY [facility] Last Admin: 11/24/21 09:09 Dose: 1,000 mcg Documented by: Docusate Sodium (Docusate Sodium 100 Mg Capsule) 200 mg PO BEDTIME [facility] Last Admin: 11/24/21 20:51 Dose: 200 mg Documented by: Enoxaparin Sodium (Enoxaparin Sodium 40 Mg/0.4 Ml Syringe) 40 mg SUBCUT Q24H [facility] Last Admin: 11/24/21 11:40 Dose: 40 mg Documented by: Ferrous Sulfate (Ferrous Sulfate 324 Mg Tablet.) 324 mg PO DAILY [facility] Last Admin: 11/24/21 09:09 Dose: 324 mg Documented by: Hydroxyzine HCl (Hydroxyzine Hcl 25 Mg Tablet) 25 mg PO BEDTIME PRN PRN Reason: Anxiety Last Admin: 10/31/21 02:30 Dose: 25 mg Documented by: Lorazepam (Lorazepam 1 Mg Tablet) 1 mg PO BID [facility] Last Admin: 11/24/21 20:51 Dose: 1 mg Documented by: Losartan Potassium (Losartan Potassium 25 Mg Tablet) 25 mg PO DAILY [facility]; Protocol Last Admin: 11/24/21 09:09 Dose: 25 mg Documented by: Lurasidone HCl (Lurasidone Hcl 20 Mg Tablet) 60 mg PO 1800 [facility] Last Admin: 11/24/21 18:31 Dose: 60 mg Documented by: Magnesium Hydroxide (Milk Of Magnesia 30 Ml Oral.Susp) 30 ml PO DAILY PRN PRN Reason: Constipation Metformin HCl (Metformin Hcl 1,000 Mg Tablet) 1,000 mg PO BID [facility] Last Admin: 11/24/21 20:51 Dose: 1,000 mg Documented by: Multivitamins/Vitamin C (Multivitamin Tablet) 1 tab PO DAILY [facility] Last Admin: 11/24/21 09:09 Dose: 1 tab Documented by: Neomycin/Polymyxin/Bacitracin (Neomy/Polymyx/Bacit/Ointment 14 Gm Tube) 1 gm TOPICAL BID [facility]; Protocol Last Admin: 11/24/21 20:57 Dose: Not Given Documented by: Non-Formulary Medication (Cinnamon) 1,000 mg PO DAILY [facility] Last Admin: 11/24/21 09:08 Dose: 1,000 mg Documented by: Patient Own Medication ( Empagliflozin 10 Mg) 1 each PO DAILY [facility] Last Admin: 11/24/21 09:09 Dose: 1 each Documented by: Patient Own Medication (Dwayne Red Softgels) 1 each PO DAILY [facility] Last Admin: 11/24/21 09:08 Dose: 1 each Documented by: Omeprazole (Omeprazole 20 Mg Capsule.) 20 mg PO DAILY@0630 [facility] Last Admin: 11/25/21 06:21 Dose: 20 mg Documented by: Ondansetron HCl (Ondansetron Odt 8 Mg Tab.Rapdis) 8 mg TRANSLINGU Q8H PRN PRN Reason: nausea Polyethylene Glycol (Polyethylene Glycol 3350 17 Gm Powd.Pack) 17 gm PO DAILY PRN PRN Reason: Constipation Last Admin: 11/06/21 12:24 Dose: 17 gm Documented by: Prazosin HCl (Prazosin Hcl 1 Mg Capsule) 1 mg PO BEDTIME PRN; Protocol PRN Reason: nightmares Last Admin: 10/30/21 21:53 Dose: 1 mg Documented by: Trazodone HCl (Trazodone Hcl 50 Mg Tablet) 50 mg PO BEDTIME PRN PRN Reason: Insomnia Last Admin: 11/24/21 20:55 Dose: 50 mg Documented by: Vitamin D (Cholecalciferol (Vitamin D3) 10 Mcg Tablet) 10 mcg PO DAILY [facility] Last Admin: 11/24/21 09:09 Dose: 10 mcg Documented by: Allergies Allergies Allergy/AdvReac Type Severity Reaction Status Date / Time lisinopril [LISINOPRIL] Allergy Unknown SWOLLEN Verified 09/17/21 08:42 LIPS, angioedema, swelling Assessment & Plan Assessment & Plan (1) Schizoaffective disorder: Status: Acute Code(s): F25.9 - Schizoaffective disorder, unspecified (2) Facial weakness: Status: Acute Code(s): R29.810 - Facial weakness (3) Encephalopathy: Status: Acute Code(s): G93.40 - Encephalopathy, unspecified Plan 50 yo female, hx of schizoaffective disorder, depressed with R breast cancer, having just completed first cycle of chemotherapy. Pt's partner and sister report to crisis team that pt has had a significant mental status change with psychotic symptoms, paranoia, perceptual alterations, poor sleep and significant thought blocking. Pt denies SI, HI. Today she is a very poor historian-almost pre-catatonic at times, considering signing a three day notice of intent. Team report by history she may not be comfortable in this facility. Assessment plan for 09/21/2021 Continue current medical treatment elevated white blood count noted over the past month question related to cancer treatment.? No evidence of infection Patient depressed withdrawn preoccupied patient with recent treatment for ductal carcinoma stress of this might certainly lead to depressive almost catatonic episode 09/22/21 Pt with thought blocking improved from yeterday have restarted wellbutin hosp did not have sr cont clozapine evaluate baseline denies self harm oob more 09/23/21 Continue current plan of care. Collateral contacts with OP team, oncology. 09/24/21 Increase Abilify to 30 mg daily Pt currently refusing Lorazepam TDN expires 09/25/21-will file for civil commitment if pt persists in wanting discharge 09/25/21 Civil commitment filing completed Continue current regime. 09/26/21 Continue current regime 09/27/32 Decrease Abilify to 20 mg daily Risperdal 1.5 mg HS 09/28/21 Continue plan as above 09/29/21 No changes 09/30/21 Court 10/01/21 Chemotherapy 10/01/21 Increase Risperdal to 2.5 mg HS Decrease Abilify to 10 mg daily 10/02/21 Tolerating change back to Abilify from Risperdal Appetite is improved. Calmer, more visable, however continues with paranoia Jardiance ordered from [facility] pharmacy 10/03/21 Increase Abilify to 30 mg daily Will pursue validation of pt's HCP for continued chemotherapy Tentative chemotherapy 10/09. 10/04/21 Continue current regime 10/05 no changes to current regimen 10/06 no changes to current regimen 10/07/21 No positive effect from increase in Abilify Increase Clozaril to 100 mg bid, an increase of 50 mg daily, divided. Chemotherapy 10/09/21, Labs 10/08/21. 10/08/21 Tolerating Clozaril increase thus far Dexamethasone 4 mg hs and 4 mg a.m. pre chemo per Dr. Mora Support, encourage 10/09/21 Continue current plan of care 10/10/21 Continue current plan of care 10/11/21 Continue current plan. Will re-eval for Clozaril increase next week. 10/12/2021: Continue current regimen and plans.? No changes were made today 10/13/2021: Continue current plans and regimen. 10/14/21: Increase Clozaril to 125 mg bid ? EKG, CBCD, CMP 10/15 prior to chemotherapy 10/15/21: Continue current plan of care 10/16/21: Continue current plan. Tolerating Clozaril increase 10/17/21: Continue current regime. 10/18/21: Increase Clozaril to 150 mg bid ? Decrease Abilify to 20 mg daily ? ECT Consult 10/19/21: continue meds unchanged 10/20/21: pt continue to present as paranoid, withdrawn 10/21/21: Continue current regime. Labs/EKG 10/22. Some improvement today. 10/22/21: Labs/EKG WNL ? Meeting 10/24 with health care proxy's to discuss clozaril discontinuation ? ECT Consult 10/24/21: Continue current plan. 10/25/21: Continue current plan. 10/26: ECT may be indicated. Change Ativan to standing dose. 10/27 Increase Ativan to 1 mg TID and watch for sedation 10/28/21: CBCD, CMP, EKG 10/29/21 in preparation for chemotherapy ? Await Clozapine level results. 10/29/21: ECT consult 10/30 ? Chemotherapy 10/30 ? Await Clozapine level results. ? Tentative plan to taper Abilify, titrate Latuda. ? Family/HCP in agreement. Pt agrees as well. 10/30/21: Decrease Abilify to 10 mg daily to prepare to begin Latuda 10/31/21: Continue current plan. 11/01/21: Discontinue Abilify ? Latuda 20 mg 1800 11/02/21:? Continue current treatment plan 11/03/21:? Continue current treatment plan 11/04/21: Tolerating Latuda. Pt asks not to titrate yet. Some improvement noted. 11/05/21: Chemotherapy 11/06. Ready to titrate Latuda-family will discuss with pt. Thus far, a positive result, without adverse effect. ? EKG reading pending ? Sister will not be taking pt to chemotherapy on 11/06 as her son has tested positive for COVID this afternoon. Partner Kailey will accompany pt. along with team. 11/06/21: Increase Latuda to 40 mg daily after evening meal. ? Increase Colace to 200 mg hs ? Miralax prn ? Per nursing report, pt will no longer need steroid dosing on before chemotherapy, but will receive dosing on Wednesdays in the chemotherapy dept. 11/07/21: Continue current plan. 11/08/21: Change Lorazepam prn to 1 mg bid 11/09/21: Tolerating Lorazepam. Continue plan of care. 11/10/21: Considering Latuda increase. 11/11/21: Increase Latuda to 60 mg daily. Labs pre chemotherapy. 11/12/21: Continue current plan. Care discussed with HCP Kailey- review of Ativan dosing, therapeutic Latuda dosing,pt's not understanding that her thought blocking, paranoia, belief that she will go to [facility] are target sx for medication increase. 11/14/21: Continue current plan. Discharge planning with consistent improvement. 11/15/21: continue current medications per primary treatment team. 11/16/2021 Patient seen in psychiatric follow-up patient depressed withdrawn hopeless h elpless despondent again discussed option of ECT 11/17/2021 Patient's case reviewed with nursing staff.? Patient seen.? Patient somewhat with cardoso affect today less withdrawn able to engage in discussion regarding Latuda and possibility of ECT treatment.? Continue clozapine Latuda 11/18- discussed with significant other possibility of: underlying paraneoplastic syndrome related to breast carcinona- mainly 4 antibodies have been related to this type of cancer ([employer]-2, Anti-yo ([employer]-1); Anti-RI (corona-2); and antiamphiphysin) mostly causing cerebellar disfunction including opsoclonus (and myoclonus) which pt appears to have along with other cognitive and psychiatric symptoms. Will order MRI- r/o encephalitis related to chemo or any limbic/cerebellar pathology. Sent message to oncologist. Pt does psychiatric condition appears to significantly improved with dexamethaxone. Also if classic paraneoplastic, which is the one mostly related to cancer tumors,? serum antibodies testing may suffice (without CSF testing).? 11/19 continue current medications- pending mri, paraneoplastic panel. 11/20- continue current medications, pending discussion with oncology re: paraneoplastic syndome, pending MRI 11/21 will d/c wellbutrin as it can worsen psychosis. continue all other meds. MRI shows microvascular changes and atrophy- moca at this time wouldn't be accurate given prominent psych symptoms. 11/22 continue current medications. I spent minutes with the patient and/or on the patient floor today, greater than?50% of which was spent counseling/coordinating care. Reason for contiued inpatient stay Substantial Risk for: inability to function
[2021-11-22] MEDS: Lurasidone HCl 20 MG TABLET 60 MG PO (17:30)
[2021-11-22 20:40] VITALS: BP 110/69; PULSE 118
[2021-11-22] MEDS: Docusate Sodium 100 MG CAPSULE 200 MG PO (20:55)
[2021-11-22] MEDS: Atorvastatin Calcium 10 MG TABLET 5 MG PO (20:56)
[2021-11-22] MEDS: traZODone HCL 50 MG TABLET PO (21:00)
[2021-11-23] MEDS: Omeprazole 20 MG CAPSULE.DR PO (06:17)
[2021-11-23 06:31] LABS: Glucose, Whole Blood 133 mg/dL (60-115)
[2021-11-23] MEDS: cloZAPine 100 MG TABLET 150 MG PO ×2 (09:12→21:06)
[2021-11-23] MEDS: Ascorbic Acid 500 MG TABLET 1000 MG PO (09:12)
[2021-11-23] MEDS: Cyanocobalamin (Vitamin B-12) 1,000 MCG TABLET 1000 MCG PO (09:12)
[2021-11-23] MEDS: Losartan Potassium 25 MG TABLET PO (09:13)
[2021-11-23] MEDS: Cholecalciferol (Vitamin D3) 10 MCG TABLET PO (09:13)
[2021-11-23] MEDS: LORazepam 1 MG TABLET PO ×2 (09:13→21:24)
[2021-11-23] MEDS: Multivitamin TABLET 1 TAB PO (09:13)
[2021-11-23] MEDS: Ferrous Sulfate 324 MG TABLET.DR PO (09:13)
[2021-11-23] MEDS: metFORMIN HCl 1,000 MG TABLET 1000 MG PO ×2 (09:13→21:05)
[2021-11-23] MEDS: cloNIDine HCL 0.1 MG TABLET PO ×2 (09:13→21:05)
[2021-11-23 09:21] VITALS: BP 159/73; PULSE 111; RESP 18; TEMP 36.6; O2SAT 99
[2021-11-23] MEDS: Enoxaparin Sodium 40 MG/0.4 ML SYRINGE SUBCUT (11:14)
--- NOTE | 2021-11-23 11:19 | P.PNPSI_ITS ---
Subjective Subjective Date of Service: 11/23/21 Reason For Visit: Depression paranoia Subjective Notes: Conditional Voluntary Interim History: Pt continues to present with psychomotor retardation, on and off delusions of being in trouble with law enforcement continue. She is sleeping well. She is also eating well. Gait is unsteady. She denies SI/HI. Times of staring at wall. speech minimally spontaneous. Medication Compliance: Yes Side effects from medications: No Review of Systems Review of Systems Most of the problems were psychiatric in nature. There was no recent cold or flu-like illness headache or change in bowel bladder pattern Yes all other systems are reviewed and are negative and Unobtainable due to mental status Reports behavioral changes, Reports confusion and Reports memory loss Psychiatric: Reports abnormal sleep pattern (pt reports due to new room-mate), Reports anxiety, Reports behavioral changes, Reports confusion, Reports depression, Reports difficulty concentrating, Reports auditory hallucinations, Reports hopelessness, Reports anhedonia, Reports memory loss, Reports mood swings, Reports paranoia, Reports hallucinations, Reports homicidal ideation (denies) and Reports suicidal ideation (denies) Mental Status Exam Mental Status Exam Narrative: Patient Appearance:?Appropriate Patient Orientation:?Person, Place, Time and Situation Level of Consciousness:?Alert Patient Behavior:?Guarded, Cooperative, Passive, Suspicious, Timid, Anxious, Fearful, Avoidant, Fatigued, Distractible, Isolative and Good Eye Contact Mood Description:?Depressed Affect Description:?Flat Patient Cognition Impaired:?Yes Ability to Follow Directions:?Good Speech Pattern:?slowed Memory Description:?Episodic Impaired Hallucinations:?None Delusions:?Paranoid Ideation Perceptual Disturbances:?Depersonalization and Derealization Thought Process:?Distracted and Rumination Thought Content:?positive for [place], positive for Circumstantial, positive for Disorganized (per pt report) and positive for Suicidal Ideation Depressive Symptoms:?Increased Anxiety, Diff. Making Decisions, Loss of Int. in Activity, Feelings of Worthlessness, Hopelessness, Isolating-Friends/Family, Feelings of Guilt, Unhappiness, Increased Fatigue, Thoughts of /Suicide, Low Self Esteem, Loss of Energy and Difficulty Concentrating Judgement:?Poor Patient Appearance: Appropriate Patient Orientation: Person, Place, Time and Situation Level of Consciousness: Alert Patient Behavior: Guarded, Talkative and Good Eye Contact Mood Description: Flat Affect Description: Flat Patient Cognition Impaired: No Ability to Follow Directions: Good Speech Pattern: Perseverating, Spontaneous Speech, Soft-Spoken and Long Pauses (present, but decreasing) Memory Description: Episodic Impaired Diagnostics Vital Signs (24Hr): Vital Signs - 24 hr 11/24/21 09:18 11/24/21 20:35 Temperature 97.9 F Pulse Rate 112 H 116 H Respiratory Rate 18 Blood Pressure 140/81 H 119/76 Pulse Oximetry 99 BMI result Body Mass Index 30.9 Labs Results: 11/19/21 07:56 11/19/21 07:56 Labs: Laboratory Results - last 48 hr 11/24/21 11/25/21 06:00 06:23 POC Glucose 104 122 H Imaging Radiology Impressions: ITS Impressions Brain MRI 11/20/21 13:00 IMPRESSION: 1. No acute intracranial abnormalities. 2. Mild underlying microangiopathy and generalized cerebral volume loss. Medications Medications Current Medications Acetaminophen (Acetaminophen 325 Mg Tablet) 650 mg PO Q6H PRN PRN Reason: Headache/Pain Mild Scale (1-3) Last Admin: 11/22/21 08:44 Dose: 650 mg Documented by: Al Hydroxide/Mg Hydroxide (Magnesium Hydrox/Alum Hydrox 30 Ml Oral.Susp) 30 ml PO Q6H PRN PRN Reason: Heartburn/Nausea Last Admin: 10/02/21 14:41 Dose: 30 ml Documented by: Ascorbic Acid (Ascorbic Acid 500 Mg Tablet) 1,000 mg PO DAILY [facility] Last Admin: 11/24/21 09:09 Dose: 1,000 mg Documented by: Atorvastatin Calcium (Atorvastatin Calcium 10 Mg Tablet) 5 mg PO BEDTIME [facility] Last Admin: 11/24/21 20:51 Dose: 5 mg Documented by: Clonidine HCl (Clonidine Hcl 0.1 Mg Tablet) 0.1 mg PO BID [facility]; Protocol Last Admin: 11/24/21 20:51 Dose: 0.1 mg Documented by: Clozapine (Clozapine 100 Mg Tablet) 150 mg PO BID [facility] Last Admin: 11/24/21 20:51 Dose: 150 mg Documented by: Cyanocobalamin (Cyanocobalamin (Vitamin B-12) 1,000 Mcg Tablet) 1,000 mcg PO DAILY [facility] Last Admin: 11/24/21 09:09 Dose: 1,000 mcg Documented by: Docusate Sodium (Docusate Sodium 100 Mg Capsule) 200 mg PO BEDTIME [facility] Last Admin: 11/24/21 20:51 Dose: 200 mg Documented by: Enoxaparin Sodium (Enoxaparin Sodium 40 Mg/0.4 Ml Syringe) 40 mg SUBCUT Q24H [facility] Last Admin: 11/24/21 11:40 Dose: 40 mg Documented by: Ferrous Sulfate (Ferrous Sulfate 324 Mg Tablet.) 324 mg PO DAILY [facility] Last Admin: 11/24/21 09:09 Dose: 324 mg Documented by: Hydroxyzine HCl (Hydroxyzine Hcl 25 Mg Tablet) 25 mg PO BEDTIME PRN PRN Reason: Anxiety Last Admin: 10/31/21 02:30 Dose: 25 mg Documented by: Lorazepam (Lorazepam 1 Mg Tablet) 1 mg PO BID [facility] Last Admin: 11/24/21 20:51 Dose: 1 mg Documented by: Losartan Potassium (Losartan Potassium 25 Mg Tablet) 25 mg PO DAILY [facility]; Protocol Last Admin: 11/24/21 09:09 Dose: 25 mg Documented by: Lurasidone HCl (Lurasidone Hcl 20 Mg Tablet) 60 mg PO 1800 [facility] Last Admin: 11/24/21 18:31 Dose: 60 mg Documented by: Magnesium Hydroxide (Milk Of Magnesia 30 Ml Oral.Susp) 30 ml PO DAILY PRN PRN Reason: Constipation Metformin HCl (Metformin Hcl 1,000 Mg Tablet) 1,000 mg PO BID [facility] Last Admin: 11/24/21 20:51 Dose: 1,000 mg Documented by: Multivitamins/Vitamin C (Multivitamin Tablet) 1 tab PO DAILY [facility] Last Admin: 11/24/21 09:09 Dose: 1 tab Documented by: Neomycin/Polymyxin/Bacitracin (Neomy/Polymyx/Bacit/Ointment 14 Gm Tube) 1 gm TOPICAL BID [facility]; Protocol Last Admin: 11/24/21 20:57 Dose: Not Given Documented by: Non-Formulary Medication (Cinnamon) 1,000 mg PO DAILY [facility] Last Admin: 11/24/21 09:08 Dose: 1,000 mg Documented by: Patient Own Medication ( Empagliflozin 10 Mg) 1 each PO DAILY [facility] Last Admin: 11/24/21 09:09 Dose: 1 each Documented by: Patient Own Medication (Dwayne Red Softgels) 1 each PO DAILY [facility] Last Admin: 11/24/21 09:08 Dose: 1 each Documented by: Omeprazole (Omeprazole 20 Mg Capsule.) 20 mg PO DAILY@0630 [facility] Last Admin: 11/25/21 06:21 Dose: 20 mg Documented by: Ondansetron HCl (Ondansetron Odt 8 Mg Tab.Rapdis) 8 mg TRANSLINGU Q8H PRN PRN Reason: nausea Polyethylene Glycol (Polyethylene Glycol 3350 17 Gm Powd.Pack) 17 gm PO DAILY PRN PRN Reason: Constipation Last Admin: 11/06/21 12:24 Dose: 17 gm Documented by: Prazosin HCl (Prazosin Hcl 1 Mg Capsule) 1 mg PO BEDTIME PRN; Protocol PRN Reason: nightmares Last Admin: 10/30/21 21:53 Dose: 1 mg Documented by: Trazodone HCl (Trazodone Hcl 50 Mg Tablet) 50 mg PO BEDTIME PRN PRN Reason: Insomnia Last Admin: 11/24/21 20:55 Dose: 50 mg Documented by: Vitamin D (Cholecalciferol (Vitamin D3) 10 Mcg Tablet) 10 mcg PO DAILY [facility] Last Admin: 11/24/21 09:09 Dose: 10 mcg Documented by: Allergies Allergies Allergy/AdvReac Type Severity Reaction Status Date / Time lisinopril [LISINOPRIL] Allergy Unknown SWOLLEN Verified 09/17/21 08:42 LIPS, angioedema, swelling Assessment & Plan Assessment & Plan (1) Schizoaffective disorder: Status: Acute Code(s): F25.9 - Schizoaffective disorder, unspecified (2) Facial weakness: Status: Acute Code(s): R29.810 - Facial weakness (3) Encephalopathy: Status: Acute Code(s): G93.40 - Encephalopathy, unspecified Plan 50 yo female, hx of schizoaffective disorder, depressed with R breast cancer, having just completed first cycle of chemotherapy. Pt's partner and sister report to crisis team that pt has had a significant mental status change with psychotic symptoms, paranoia, perceptual alterations, poor sleep and significant thought blocking. Pt denies SI, HI. Today she is a very poor historian-almost pre-catatonic at times, considering signing a three day notice of intent. Team report by history she may not be comfortable in this facility. Assessment plan for 09/21/2021 Continue current medical treatment elevated white blood count noted over the past month question related to cancer treatment.? No evidence of infection Patient depressed withdrawn preoccupied patient with recent treatment for ductal carcinoma stress of this might certainly lead to depressive almost catatonic episode 09/22/21 Pt with thought blocking improved from yeterday have restarted wellbutin hosp did not have sr cont clozapine evaluate baseline denies self harm oob more 09/23/21 Continue current plan of care. Collateral contacts with OP team, oncology. 09/24/21 Increase Abilify to 30 mg daily Pt currently refusing Lorazepam TDN expires 09/25/21-will file for civil commitment if pt persists in wanting discharge 09/25/21 Civil commitment filing completed Continue current regime. 09/26/21 Continue current regime 09/27/32 Decrease Abilify to 20 mg daily Risperdal 1.5 mg HS 09/28/21 Continue plan as above 09/29/21 No changes 09/30/21 Court 10/01/21 Chemotherapy 10/01/21 Increase Risperdal to 2.5 mg HS Decrease Abilify to 10 mg daily 10/02/21 Tolerating change back to Abilify from Risperdal Appetite is improved. Calmer, more visable, however continues with paranoia Jardiance ordered from [facility] 10/03/21 Increase Abilify to 30 mg daily Will pursue validation of pt's HCP for continued chemotherapy Tentative chemotherapy 10/09. 10/04/21 Continue current regime 10/05 no changes to current regimen 10/06 no changes to current regimen 10/07/21 No positive effect from increase in Abilify Increase Clozaril to 100 mg bid, an increase of 50 mg daily, divided. Chemotherapy 10/09/21, Labs 10/08/21. 10/08/21 Tolerating Clozaril increase thus far Dexamethasone 4 mg hs and 4 mg a.m. pre chemo per Dr. Mora Support, encourage 10/09/21 Continue current plan of care 10/10/21 Continue current plan of care 10/11/21 Continue current plan. Will re-eval for Clozaril increase next week. 10/12/2021: Continue current regimen and plans.? No changes were made today 10/13/2021: Continue current plans and regimen. 10/14/21: Increase Clozaril to 125 mg bid ? EKG, CBCD, CMP 10/15 prior to chemotherapy 10/15/21: Continue current plan of care 10/16/21: Continue current plan. Tolerating Clozaril increase 10/17/21: Continue current regime. 10/18/21: Increase Clozaril to 150 mg bid ? Decrease Abilify to 20 mg daily ? ECT Consult 10/19/21: continue meds unchanged 10/20/21: pt continue to present as paranoid, withdrawn 10/21/21: Continue current regime. Labs/EKG 10/22. Some improvement today. 10/22/21: Labs/EKG WNL ? Meeting 10/24 with health care proxy's to discuss clozaril discontinuation ? ECT Consult 10/24/21: Continue current plan. 10/25/21: Continue current plan. 10/26: ECT may be indicated. Change Ativan to standing dose. 10/27 Increase Ativan to 1 mg TID and watch for sedation 10/28/21: CBCD, CMP, EKG 10/29/21 in preparation for chemotherapy ? Await Clozapine level results. 10/29/21: ECT consult 10/30 ? Chemotherapy 10/30 ? Await Clozapine level results. ? Tentative plan to taper Abilify, titrate Latuda. ? Family/HCP in agreement. Pt agrees as well. 10/30/21: Decrease Abilify to 10 mg daily to prepare to begin Latuda 10/31/21: Continue current plan. 11/01/21: Discontinue Abilify ? Latuda 20 mg 1800 11/02/21:? Continue current treatment plan 11/03/21:? Continue current treatment plan 11/04/21: Tolerating Latuda. Pt asks not to titrate yet. Some improvement noted. 11/05/21: Chemotherapy 11/06. Ready to titrate Latuda-family will discuss with pt. Thus far, a positive result, without adverse effect. ? EKG reading pending ? Sister will not be taking pt to chemotherapy on 11/06 as her son has tested positive for COVID this afternoon. Partner Kailey will accompany pt. along with team. 11/06/21: Increase Latuda to 40 mg daily after evening meal. ? Increase Colace to 200 mg hs ? Miralax prn ? Per nursing report, pt will no longer need steroid dosing on Tuesdays before chemotherapy, but will receive dosing on Wednesdays in the chemotherapy dept. 11/07/21: Continue current plan. 11/08/21: Change Lorazepam prn to 1 mg bid 11/09/21: Tolerating Lorazepam. Continue plan of care. 11/10/21: Considering Latuda increase. 11/11/21: Increase Latuda to 60 mg daily. Labs pre chemotherapy. 11/12/21: Continue current plan. Care discussed with HCP Kailey- review of Ativan dosing, therapeutic Latuda dosing,pt's not understanding that her thought blocking, paranoia, belief that she will go to [facility] are target sx for medication increase. 11/14/21: Continue current plan. Discharge planning with consistent improvement. 11/15/21: continue current medications per primary treatment team. 11/16/2021 Patient seen in psychiatric follow-up patient depressed withdrawn hopeless helpless despondent again discussed option of ECT 11/17/2021 Patient's case reviewed with nursing staff.? Patient seen.? Patient somewhat with cardoso affect today less withdrawn able to engage in discussion regarding Latuda and possibility of ECT treatment.? Continue clozapine Latuda 11/18- discussed with significant other possibility of: underlying paraneoplastic syndrome related to breast carcinona- mainly 4 antibodies have been related to this type of cancer (HANGER OFF-2, Anti-yo (HANGER OFF-1); Anti-RI (corona-2); and an tiamphiphysin) mostly causing cerebellar disfunction including opsoclonus (and myoclonus) which pt appears to have along with other cognitive and psychiatric symptoms. Will order MRI- r/o encephalitis related to chemo or any limbic/cerebellar pathology. Sent message to oncologist. Pt does psychiatric condition appears to significantly improved with dexamethaxone. Also if classic paraneoplastic, which is the one mostly related to cancer tumors,? serum antibodies testing may suffice (without CSF testing).? 11/19 continue current medications- pending mri, paraneoplastic panel. 11/20- continue current medications, pending discussion with oncology re: paraneoplastic syndome, pending MRI 11/21 will d/c wellbutrin as it can worsen psychosis. continue all other meds. MRI shows microvascular changes and atrophy- moca at this time wouldn't be accurate given prominent psych symptoms. 11/22 continue current medications. 11/23 continue tx plan. I spent minutes with the patient and/or on the patient floor today, greater than?50% of which was spent counseling/coordinating care. Reason for contiued inpatient stay Substantial Risk for: inability to function
[2021-11-23] MEDS: Lurasidone HCl 20 MG TABLET 60 MG PO (19:48)
[2021-11-23 20:50] VITALS: BP 123/80; PULSE 80
[2021-11-23] MEDS: Docusate Sodium 100 MG CAPSULE 200 MG PO (21:05)
[2021-11-23] MEDS: Atorvastatin Calcium 10 MG TABLET 5 MG PO (21:06)
[2021-11-24] MEDS: Omeprazole 20 MG CAPSULE.DR PO (05:53)
[2021-11-24 06:05] LABS: Glucose, Whole Blood 104 mg/dL (60-115)
[2021-11-24] MEDS: Multivitamin TABLET 1 TAB PO (09:09)
[2021-11-24] MEDS: Cholecalciferol (Vitamin D3) 10 MCG TABLET PO (09:09)
[2021-11-24] MEDS: Ascorbic Acid 500 MG TABLET 1000 MG PO (09:09)
[2021-11-24] MEDS: Losartan Potassium 25 MG TABLET PO (09:09)
[2021-11-24] MEDS: Ferrous Sulfate 324 MG TABLET.DR PO (09:09)
[2021-11-24] MEDS: Cyanocobalamin (Vitamin B-12) 1,000 MCG TABLET 1000 MCG PO (09:09)
[2021-11-24] MEDS: LORazepam 1 MG TABLET PO ×2 (09:09→20:51)
[2021-11-24] MEDS: metFORMIN HCl 1,000 MG TABLET 1000 MG PO ×2 (09:09→20:51)
[2021-11-24] MEDS: cloNIDine HCL 0.1 MG TABLET PO ×2 (09:10→20:51)
[2021-11-24] MEDS: cloZAPine 100 MG TABLET 150 MG PO ×2 (09:10→20:51)
[2021-11-24 09:18] VITALS: BP 140/81; PULSE 112; RESP 18; TEMP 36.6; O2SAT 99
--- NOTE | 2021-11-24 11:21 | HO.PSYCHPN ---
Subjective Subjective Date of Service: 11/24/21 Reason For Visit: Depression paranoia Subjective Notes: Conditional Voluntary Interim History: Pt continues to present with psychomotor retardation, on and off delusions of being in trouble with law enforcement continue. She is sleeping well. She is also eating well. Gait is unsteady. She denies SI/HI. Times of staring at wall. speech minimally spontaneous. Medication Compliance: Yes Side effects from medications: No Review of Systems Review of Systems Most of the problems were psychiatric in nature. There was no recent cold or flu-like illness headache or change in bowel bladder pattern Yes all other systems are reviewed and are negative and Unobtainable due to mental status Reports behavioral changes, Reports confusion and Reports memory loss Psychiatric: Reports abnormal sleep pattern (pt reports due to new room-mate), Reports anxiety, Reports behavioral changes, Reports confusion, Reports depression, Reports difficulty concentrating, Reports auditory hallucinations, Reports hopelessness, Reports anhedonia, Reports memory loss, Reports mood swings, Reports paranoia, Reports hallucinations, Reports homicidal ideation (denies) and Reports suicidal ideation (denies) Mental Status Exam Mental Status Exam Narrative: Patient Appearance:?Appropriate Patient Orientation:?Person, Place, Time and Situation Level of Consciousness:?Alert Patient Behavior:?Guarded, Cooperative, Passive, Suspicious, Timid, Anxious, Fearful, Avoidant, Fatigued, Distractible, Isolative and Good Eye Contact Mood Description:?Depressed Affect Description:?Flat Patient Cognition Impaired:?Yes Ability to Follow Directions:?Good Speech Pattern:?slowed Memory Description:?Episodic Impaired Hallucinations:?None Delusions:?Paranoid Ideation Perceptual Disturbances:?Depersonalization and Derealization Thought Process:?Distracted and Rumination Thought Content:?positive for [place], positive for Circumstantial, positive for Disorganized (per pt report) and positive for Suicidal Ideation Depressive Symptoms:?Increased Anxiety, Diff. Making Decisions, Loss of Int. in Activity, Feelings of Worthlessness, Hopelessness, Isolating-Friends/Family, Feelings of Guilt, Unhappiness, Increased Fatigue, Thoughts of /Suicide, Low Self Esteem, Loss of Energy and Difficulty Concentrating Judgement:?Poor Patient Appearance: Appropriate Patient Orientation: Person, Place, Time and Situation Level of Consciousness: Alert Patient Behavior: Guarded, Talkative and Good Eye Contact Mood Description: Flat Affect Description: Flat Patient Cognition Impaired: No Ability to Follow Directions: Good Speech Pattern: Perseverating, Spontaneous Speech, Soft-Spoken and Long Pauses (present, but decreasing) Memory Description: Episodic Impaired Diagnostics Vital Signs (24Hr): Vital Signs - 24 hr 11/24/21 09:18 11/24/21 20:35 Temperature 97.9 F Pulse Rate 112 H 116 H Respiratory Rate 18 Blood Pressure 140/81 H 119/76 Pulse Oximetry 99 BMI result Body Mass Index 30.9 Labs Results: 11/19/21 07:56 11/19/21 07:56 Labs: Laboratory Results - last 48 hr 11/24/21 11/25/21 06:00 06:23 POC Glucose 104 122 H Imaging Radiology Impressions: ITS Impressions Brain MRI 11/20/21 13:00 IMPRESSION: 1. No acute intracranial abnormalities. 2. Mild underlying microangiopathy and generalized cerebral volume loss. Medications Medications Current Medications Acetaminophen (Acetaminophen 325 Mg Tablet) 650 mg PO Q6H PRN PRN Reason: Headache/Pain Mild Scale (1-3) Last Admin: 11/22/21 08:44 Dose: 650 mg Documented by: Al Hydroxide/Mg Hydroxide (Magnesium Hydrox/Alum Hydrox 30 Ml Oral.Susp) 30 ml PO Q6H PRN PRN Reason: Heartburn/Nausea Last Admin: 10/02/21 14:41 Dose: 30 ml Documented by: Ascorbic Acid (Ascorbic Acid 500 Mg Tablet) 1,000 mg PO DAILY [facility] Last Admin: 11/24/21 09:09 Dose: 1,000 mg Documented by: Atorvastatin Calcium (Atorvastatin Calcium 10 Mg Tablet) 5 mg PO BEDTIME [facility] Last Admin: 11/24/21 20:51 Dose: 5 mg Documented by: Clonidine HCl (Clonidine Hcl 0.1 Mg Tablet) 0.1 mg PO BID [facility]; Protocol Last Admin: 11/24/21 20:51 Dose: 0.1 mg Documented by: Clozapine (Clozapine 100 Mg Tablet) 150 mg PO BID [facility] Last Admin: 11/24/21 20:51 Dose: 150 mg Documented by: Cyanocobalamin (Cyanocobalamin (Vitamin B-12) 1,000 Mcg Tablet) 1,000 mcg PO DAILY [facility] Last Admin: 11/24/21 09:09 Dose: 1,000 mcg Documented by: Docusate Sodium (Docusate Sodium 100 Mg Capsule) 200 mg PO BEDTIME [facility] Last Admin: 11/24/21 20:51 Dose: 200 mg Documented by: Enoxaparin Sodium (Enoxaparin Sodium 40 Mg/0.4 Ml Syringe) 40 mg SUBCUT Q24H [facility] Last Admin: 11/24/21 11:40 Dose: 40 mg Documented by: Ferrous Sulfate (Ferrous Sulfate 324 Mg Tablet.) 324 mg PO DAILY [facility] Last Admin: 11/24/21 09:09 Dose: 324 mg Documented by: Hydroxyzine HCl (Hydroxyzine Hcl 25 Mg Tablet) 25 mg PO BEDTIME PRN PRN Reason: Anxiety Last Admin: 10/31/21 02:30 Dose: 25 mg Documented by: Lorazepam (Lorazepam 1 Mg Tablet) 1 mg PO BID [facility] Last Admin: 11/24/21 20:51 Dose: 1 mg Documented by: Losartan Potassium (Losartan Potassium 25 Mg Tablet) 25 mg PO DAILY [facility]; Protocol Last Admin: 11/24/21 09:09 Dose: 25 mg Documented by: Lurasidone HCl (Lurasidone Hcl 20 Mg Tablet) 60 mg PO 1800 [facility] Last Admin: 11/24/21 18:31 Dose: 60 mg Documented by: Magnesium Hydroxide (Milk Of Magnesia 30 Ml Oral.Susp) 30 ml PO DAILY PRN PRN Reason: Constipation Metformin HCl (Metformin Hcl 1,000 Mg Tablet) 1,000 mg PO BID [facility] Last Admin: 11/24/21 20:51 Dose: 1,000 mg Documented by: Multivitamins/Vitamin C (Multivitamin Tablet) 1 tab PO DAILY [facility] Last Admin: 11/24/21 09:09 Dose: 1 tab Documented by: Neomycin/Polymyxin/Bacitracin (Neomy/Polymyx/Bacit/Ointment 14 Gm Tube) 1 gm TOPICAL BID [facility]; Protocol Last Admin: 11/24/21 20:57 Dose: Not Given Documented by: Non-Formulary Medication (Cinnamon) 1,000 mg PO DAILY [facility] Last Admin: 11/24/21 09:08 Dose: 1,000 mg Documented by: Patient Own Medication ( Empagliflozin 10 Mg) 1 each PO DAILY [facility] Last Admin: 11/24/21 09:09 Dose: 1 each Documented by: Patient Own Medication (Dwayne Red Softgels) 1 each PO DAILY [facility] Last Admin: 11/24/21 09:08 Dose: 1 each Documented by: Omeprazole (Omeprazole 20 Mg Capsule.) 20 mg PO DAILY@0630 [facility] Last Admin: 11/25/21 06:21 Dose: 20 mg Documented by: Ondansetron HCl (Ondansetron Odt 8 Mg Tab.Rapdis) 8 mg TRANSLINGU Q8H PRN PRN Reason: nausea Polyethylene Glycol (Polyethylene Glycol 3350 17 Gm Powd.Pack) 17 gm PO DAILY PRN PRN Reason: Constipation Last Admin: 11/06/21 12:24 Dose: 17 gm Documented by: Prazosin HCl (Prazosin Hcl 1 Mg Capsule) 1 mg PO BEDTIME PRN; Protocol PRN Reason: nightmares Last Admin: 10/30/21 21:53 Dose: 1 mg Documented by: Trazodone HCl (Trazodone Hcl 50 Mg Tablet) 50 mg PO BEDTIME PRN PRN Reason: Insomnia Last Admin: 11/24/21 20:55 Dose: 50 mg Documented by: Vitamin D (Cholecalciferol (Vitamin D3) 10 Mcg Tablet) 10 mcg PO DAILY [facility] Last Admin: 11/24/21 09:09 Dose: 10 mcg Documented by: Allergies Allergies Allergy/AdvReac Type Severity Reaction Status Date / Time lisinopril [LISINOPRIL] Allergy Unknown SWOLLEN Verified 09/17/21 08:42 LIPS, angioedema, swelling Assessment & Plan Assessment & Plan (1) Schizoaffective disorder: Status: Acute Code(s): F25.9 - Schizoaffective disorder, unspecified (2) Facial weakness: Status: Acute Code(s): R29.810 - Facial weakness (3) Encephalopathy: Status: Acute Code(s): G93.40 - Encephalopathy, unspecified Plan 50 yo female, hx of schizoaffective disorder, depressed with R breast cancer, having just completed first cycle of chemotherapy. Pt's partner and sister report to crisis team that pt has had a significant mental status change with psychotic symptoms, paranoia, perceptual alterations, poor sleep and significant thought blocking. Pt denies SI, HI. Today she is a very poor historian-almost pre-catatonic at times, considering signing a three day notice of intent. Team report by history she may not be comfortable in this facility. Assessment plan for 09/21/2021 Continue current medical treatment elevated white blood count noted over the past month question related to cancer treatment.? No evidence of infection Patient depressed withdrawn preoccupied patient with recent treatment for ductal carcinoma stress of this might certainly lead to depressive almost catatonic episode 09/22/21 Pt with thought blocking improved from yeterday have restarted wellbutin hosp did not have sr cont clozapine evaluate baseline denies self harm oob more 09/23/21 Continue current plan of care. Collateral contacts with OP team, oncology. 09/24/21 Increase Abilify to 30 mg daily Pt currently refusing Lorazepam TDN expires 09/25/21-will file for civil commitment if pt persists in wanting discharge 09/25/21 Civil commitment filing completed Continue current regime. 09/26/21 Continue current regime 09/27/32 Decrease Abilify to 20 mg daily Risperdal 1.5 mg HS 09/28/21 Continue plan as above 09/29/21 No changes 09/30/21 Court 10/01/21 Chemotherapy 10/01/21 Increase Risperdal to 2.5 mg HS Decrease Abilify to 10 mg daily 10/02/21 Tolerating change back to Abilify from Risperdal Appetite is improved. Calmer, more visable, however continues with paranoia Jardiance ordered from [facility] pharmacy 10/03/21 Increase Abilify to 30 mg daily Will pursue validation of pt's HCP for continued chemotherapy Tentative chemotherapy 10/09. 10/04/21 Continue current regime 10/05 no changes to current regimen 10/06 no changes to current regimen 10/07/21 No positive effect from increase in Abilify Increase Clozaril to 100 mg bid, an increase of 50 mg daily, divided. Chemotherapy 10/09/21, Labs 10/08/21. 10/08/21 Tolerating Clozaril increase thus far Dexamethasone 4 mg hs and 4 mg a.m. pre chemo per Dr. Mora Support, encourage 10/09/21 Continue current plan of care 10/10/21 Continue current plan of care 10/11/21 Continue current plan. Will re-eval for Clozaril increase next week. 10/12/2021: Continue current regimen and plans.? No changes were made today 10/13/2021: Continue current plans and regimen. 10/14/21: Increase Clozaril to 125 mg bid ? EKG, CBCD, CMP 10/15 prior to chemotherapy 10/15/21: Continue current plan of care 10/16/21: Continue current plan. Tolerating Clozaril increase 10/17/21: Continue current regime. 10/18/21: Increase Clozaril to 150 mg bid ? Decrease Abilify to 20 mg daily ? ECT Consult 10/19/21: continue meds unchanged 10/20/21: pt continue to present as paranoid, withdrawn 10/21/21: Continue current regime. Labs/EKG 10/22. Some improvement today. 10/22/21: Labs/EKG WNL ? Meeting 10/24 with health care proxy's to discuss clozaril discontinuation ? ECT Consult 10/24/21: Continue current plan. 10/25/21: Continue current plan. 10/26: ECT may be indicated. Change Ativan to standing dose. 10/27 Increase Ativan to 1 mg TID and watch for sedation 10/28/21: CBCD, CMP, EKG 10/29/21 in preparation for chemotherapy ? Await Clozapine level results. 10/29/21: ECT consult 10/30 ? Chemotherapy 10/30 ? Await Clozapine level results. ? Tentative plan to taper Abilify, titrate Latuda. ? Family/HCP in agreement. Pt agrees as well. 10/30/21: Decrease Abilify to 10 mg daily to prepare to begin Latuda 10/31/21: Continue current plan. 11/01/21: Discontinue Abilify ? Latuda 20 mg 1800 11/02/21:? Continue current treatment plan 11/03/21:? Continue current treatment plan 11/04/21: Tolerating Latuda. Pt asks not to titrate yet. Some improvement noted. 11/05/21: Chemotherapy 11/06. Ready to titrate Latuda-family will discuss with pt. Thus far, a positive result, without adverse effect. ? EKG reading pending ? Sister will not be taking pt to chemotherapy on 11/06 as her son has tested positive for COVID this afternoon. Partner Kailey will accompany pt. along with team. 11/06/21: Increase Latuda to 40 mg daily after evening meal. ? Increase Colace to 200 mg hs ? Miralax prn ? Per nursing report, pt will no longer need steroid dosing on Tuesdays before chemotherapy, but will receive dosing on Wednesdays in the chemotherapy dept. 11/07/21: Continue current plan. 11/08/21: Change Lorazepam prn to 1 mg bid 11/09/21: Tolerating Lorazepam. Continue plan of care. 11/10/21: Considering Latuda increase. 11/11/21: Increase Latuda to 60 mg daily. Labs pre chemotherapy. 11/12/21: Continue current plan. Care discussed with HCP Kailey- review of Ativan dosing, therapeutic Latuda dosing,pt's not understanding that her thought blocking, paranoia, belief that she will go to retirement are target sx for medication increase. 11/14/21: Continue current plan. Discharge planning with consistent improvement. 11/15/21: continue current medications per primary treatment team. 11/16/2021 Patient seen in psychiatric follow-up patient depressed withdrawn hopeless helpless despondent again discussed option of ECT 11/17/2021 Patient's case reviewed with nursing staff.? Patient seen.? Patient somewhat with cardoso affect today less withdrawn able to engage in discussion regarding Latuda and possibility of ECT treatment.? Continue clozapine Latuda 11/18- discussed with significant other possibility of: underlying paraneoplastic syndrome related to breast carcinona- mainly 4 antibodies have been related to this type of cancer (BIG 6 DEALER-2, Anti-yo (BIG 6 DEALER-1); Anti-RI (corona-2); and antiamphiphysin) mostly causing cerebellar disfunction including opsoclonus (and myoclonus) which pt appears to have along with other cognitive and psychiatric symptoms. Will order MRI- r/o encephalitis related to chemo or any limbic/cerebellar pathology. Sent message to oncologist. Pt does psychiatric condition appears to significantly improved with dexamethaxone. Also if classic paraneoplastic, which is the one mostly related to cancer tumors,? serum antibodies testing may suffice (without CSF testing).? 11/19 continue current medications- pending mri, paraneoplastic panel. 11/20- continue current medications, pending discussion with oncology re: paraneoplastic syndome, pending MRI 11/21 will d/c wellbutrin as it can worsen psychosis. continue all other meds. MRI shows microvascular changes and atrophy- moca at this time wouldn't be accurate given prominent psych symptoms. 11/22 continue current medications. 11/23 continue tx plan. 11/24 continue tx plan I spent minutes with the patient and/or on the patient floor today, greater than?50% of which was spent counseling/coordinating care. Reason for contiued inpatient stay Substantial Risk for: inability to function
[2021-11-24] MEDS: Enoxaparin Sodium 40 MG/0.4 ML SYRINGE SUBCUT (11:40)
[2021-11-24] MEDS: Lurasidone HCl 20 MG TABLET 60 MG PO (18:31)
[2021-11-24 20:35] VITALS: BP 119/76; PULSE 116
[2021-11-24] MEDS: Docusate Sodium 100 MG CAPSULE 200 MG PO (20:51)
[2021-11-24] MEDS: Atorvastatin Calcium 10 MG TABLET 5 MG PO (20:51)
[2021-11-24] MEDS: traZODone HCL 50 MG TABLET PO (20:55)
[2021-11-25 06:00] VITALS: BP 117/79; PULSE 117; RESP 16
[2021-11-25] MEDS: Omeprazole 20 MG CAPSULE.DR PO (06:21)
[2021-11-25 06:29] LABS: Glucose, Whole Blood 122 mg/dL (60-115)
[2021-11-25] MEDS: metFORMIN HCl 1,000 MG TABLET 1000 MG PO ×2 (08:42→21:23)
[2021-11-25] MEDS: Cyanocobalamin (Vitamin B-12) 1,000 MCG TABLET 1000 MCG PO (08:42)
[2021-11-25] MEDS: cloNIDine HCL 0.1 MG TABLET PO ×2 (08:42→21:22)
[2021-11-25] MEDS: cloZAPine 100 MG TABLET 150 MG PO ×2 (08:43→21:22)
[2021-11-25] MEDS: Cholecalciferol (Vitamin D3) 10 MCG TABLET PO (08:43)
[2021-11-25] MEDS: Losartan Potassium 25 MG TABLET PO (08:43)
[2021-11-25] MEDS: Multivitamin TABLET 1 TAB PO (08:43)
[2021-11-25] MEDS: Ferrous Sulfate 324 MG TABLET.DR PO (08:43)
[2021-11-25] MEDS: LORazepam 1 MG TABLET PO ×2 (08:43→21:22)
[2021-11-25] MEDS: Ascorbic Acid 500 MG TABLET 1000 MG PO (08:43)
[2021-11-25] MEDS: Enoxaparin Sodium 40 MG/0.4 ML SYRINGE SUBCUT (12:11)
[2021-11-25] MEDS: Lurasidone HCl 20 MG TABLET 60 MG PO (16:47)
--- NOTE | 2021-11-25 17:43 | P.PNPSI_ITS ---
Subjective Subjective Date of Service: 11/25/21 Reason For Visit: Depression paranoia Subjective Notes: Section 8 Healthcare Proxy: Yes Guardianship: No Medical Problems Affecting Mental Status: No Interim History: Sabra reports feeling OK , but forgetful. She asked several questions regarding possibly having paraneoplastic syndrome and pending testing. She discussed her concerns about having dementia She discussed wanting to discharge to her home, but not feeling ready. Medication Compliance: Yes Side effects from medications: No Attending Groups: Yes Review of Systems Acute medical concerns: No Medical Review of Systems: unchanged Review of Systems Reports confusion and Reports memory loss Psychiatric: Reports anxiety, Reports confusion, Reports difficulty concentrating, Reports memory loss and Reports suicidal ideation (denies) Mental Status Exam Mental Status Exam Patient Appearance: Appropriate Patient Orientation: Person, Place, Time and Situation Level of Consciousness: Alert Patient Behavior: Talkative and Good Eye Contact Mood Description: Flat Affect Description: Flat Patient Cognition Impaired: Yes Ability to Follow Directions: Good Speech Pattern: Spontaneous Speech and Delayed Memory Description: Intact Hallucinations: None Delusions: Not Present Thought Process: Distracted Thought Content: positive for [place], positive for Suicidal Ideation (denies) and positive for Homicidal Ideation (denies) Judgement: Fair Diagnostics Vital Signs (24Hr): Vital Signs - 24 hr 11/24/21 20:35 11/25/21 06:00 Pulse Rate 116 H 117 H Respiratory Rate 16 Blood Pressure 119/76 117/79 BMI result Body Mass Index 30.9 Labs Results: 11/26/21 07:30 11/26/21 07:30 Labs: Laboratory Results - last 48 hr 11/24/21 11/25/21 06:00 06:23 POC Glucose 104 122 H Imaging Radiology Impressions: ITS Impressions Brain MRI 11/20/21 13:00 IMPRESSION: 1. No acute intracranial abnormalities. 2. Mild underlying microangiopathy and generalized cerebral volume loss. Medications Medications Current Medications Acetaminophen (Acetaminophen 325 Mg Tablet) 650 mg PO Q6H PRN PRN Reason: Headache/Pain Mild Scale (1-3) Last Admin: 11/22/21 08:44 Dose: 650 mg Documented by: Al Hydroxide/Mg Hydroxide (Magnesium Hydrox/Alum Hydrox 30 Ml Oral.Susp) 30 ml PO Q6H PRN PRN Reason: Heartburn/Nausea Last Admin: 10/02/21 14:41 Dose: 30 ml Documented by: Ascorbic Acid (Ascorbic Acid 500 Mg Tablet) 1,000 mg PO DAILY [facility] Last Admin: 11/25/21 08:43 Dose: 1,000 mg Documented by: Atorvastatin Calcium (Atorvastatin Calcium 10 Mg Tablet) 5 mg PO BEDTIME [facility] Last Admin: 11/24/21 20:51 Dose: 5 mg Documented by: Clonidine HCl (Clonidine Hcl 0.1 Mg Tablet) 0.1 mg PO BID [facility]; Protocol Last Admin: 11/25/21 08:42 Dose: 0.1 mg Documented by: Clozapine (Clozapine 100 Mg Tablet) 150 mg PO BID [facility] Last Admin: 11/25/21 08:43 Dose: 150 mg Documented by: Cyanocobalamin (Cyanocobalamin (Vitamin B-12) 1,000 Mcg Tablet) 1,000 mcg PO DAILY [facility] Last Admin: 11/25/21 08:42 Dose: 1,000 mcg Documented by: Docusate Sodium (Docusate Sodium 100 Mg Capsule) 200 mg PO BEDTIME [facility] Last Admin: 11/24/21 20:51 Dose: 200 mg Documented by: Enoxaparin Sodium (Enoxaparin Sodium 40 Mg/0.4 Ml Syringe) 40 mg SUBCUT Q24H [facility] Last Admin: 11/25/21 12:11 Dose: 40 mg Documented by: Ferrous Sulfate (Ferrous Sulfate 324 Mg Tablet.Dr) 324 mg PO DAILY [facility] Last Admin: 11/25/21 08:43 Dose: 324 mg Documented by: Hydroxyzine HCl (Hydroxyzine Hcl 25 Mg Tablet) 25 mg PO BEDTIME PRN PRN Reason: Anxiety Last Admin: 10/31/21 02:30 Dose: 25 mg Documented by: Lorazepam (Lorazepam 1 Mg Tablet) 1 mg PO BID MYRTLE Last Admin: 11/25/21 08:43 Dose: 1 mg Documented by: Losartan Potassium (Losartan Potassium 25 Mg Tablet) 25 mg PO DAILY MYRTLE; Protoc ol Last Admin: 11/25/21 08:43 Dose: 25 mg Documented by: Lurasidone HCl (Lurasidone Hcl 20 Mg Tablet) 60 mg PO 1800 [facility] Last Admin: 11/25/21 16:47 Dose: 60 mg Documented by: Magnesium Hydroxide (Milk Of Magnesia 30 Ml Oral.Susp) 30 ml PO DAILY PRN PRN Reason: Constipation Metformin HCl (Metformin Hcl 1,000 Mg Tablet) 1,000 mg PO BID [facility] Last Admin: 05/02/22 08:42 Dose: 1,000 mg Documented by: Multivitamins/Vitamin C (Multivitamin Tablet) 1 tab PO DAILY [facility] Last Admin: 11/25/21 08:43 Dose: 1 tab Documented by: Neomycin/Polymyxin/Bacitracin (Neomy/Polymyx/Bacit/Ointment 14 Gm Tube) 1 gm TOPICAL BID [facility]; Protocol Last Admin: 11/25/21 08:44 Dose: Not Given Documented by: Non-Formulary Medication (Cinnamon) 1,000 mg PO DAILY [facility] Last Admin: 11/25/21 08:43 Dose: 1,000 mg Documented by: Patient Own Medication ( Empagliflozin 10 Mg) 1 each PO DAILY [facility] Last Admin: 11/25/21 08:43 Dose: 1 each Documented by: Patient Own Medication (Dwayne Red Softgels) 1 each PO DAILY [facility] Last Admin: 11/25/21 08:43 Dose: 1 each Documented by: Omeprazole (Omeprazole 20 Mg Capsule.Dr) 20 mg PO DAILY@0630 [facility] Last Admin: 11/25/21 06:21 Dose: 20 mg Documented by: Ondansetron HCl (Ondansetron Odt 8 Mg Tab.Rapdis) 8 mg TRANSLINGU Q8H PRN PRN Reason: nausea Polyethylene Glycol (Polyethylene Glycol 3350 17 Gm Powd.Pack) 17 gm PO DAILY PRN PRN Reason: Constipation Last Admin: 11/06/21 12:24 Dose: 17 gm Documented by: Prazosin HCl (Prazosin Hcl 1 Mg Capsule) 1 mg PO BEDTIME PRN; Protocol PRN Reason: nightmares Last Admin: 10/30/21 21:53 Dose: 1 mg Documented by: Trazodone HCl (Trazodone Hcl 50 Mg Tablet) 50 mg PO BEDTIME PRN PRN Reason: Insomnia Last Admin: 11/24/21 20:55 Dose: 50 mg Documented by: Vitamin D (Cholecalciferol (Vitamin D3) 10 Mcg Tablet) 10 mcg PO DAILY [facility] Last Admin: 11/25/21 08:43 Dose: 10 mcg Documented by: Allergies Allergies Allergy/AdvReac Type Severity Reaction Status Date / Time lisinopril [LISINOPRIL] Allergy Unknown SWOLLEN Verified 09/17/21 08:42 LIPS, angioedema, swelling Assessment & Plan Assessment & Plan (1) Schizoaffective disorder: Status: Acute Code(s): F25.9 - Schizoaffective disorder, unspecified (2) Facial weakness: Status: Acute Code(s): R29.810 - Facial weakness (3) Encephalopathy: Status: Acute Code(s): G93.40 - Encephalopathy, unspecified Plan 50 yo female, hx of schizoaffective disorder, depressed with R breast cancer, having just completed first cycle of chemotherapy. Pt's partner and sister report to crisis team that pt has had a significant mental status change with psychotic symptoms, paranoia, perceptual alterations, poor sleep and significant thought blocking. Pt denies SI, HI. Today she is a very poor historian-almost pre-catatonic at times, considering signing a three day notice of intent. Team report by history she may not be comfortable in this facility. Assessment plan for 09/21/2021 Continue current medical treatment elevated white blood count noted over the past month question related to cancer treatment.? No evidence of infection Patient depressed withdrawn preoccupied patient with recent treatment for ductal carcinoma stress of this might certainly lead to depressive almost catatonic episode 09/22/21 Pt with thought blocking improved from yeterday have restarted wellbutin hosp did not have sr cont clozapine evaluate baseline denies self harm oob more 09/23/21 Continue current plan of care. Collateral contacts with OP team, oncology. 09/24/21 Increase Abilify to 30 mg daily Pt currently refusing Lorazepam TDN expires 09/25/21-will file for civil commitment if pt persists in wanting discharge 09/25/21 Civil commitment filing completed Continue current regime. 09/26/21 Continue current regime 09/27/32 Decrease Abilify to 20 mg daily Risperdal 1.5 mg HS 09/28/21 Continue plan as above 09/29/21 No changes 09/30/21 Court 10/01/21 Chemotherapy 10/01/21 Increase Risperdal to 2.5 mg HS Decrease Abilify to 10 mg daily 10/02/21 Tolerating change back to Abilify from Risperdal Appetite is improved. Calmer, more visable, however continues with paranoia Jardiance ordered from [facility] pharmacy 10/03/21 Increase Abilify to 30 mg daily Will pursue validation of pt's HCP for continued chemotherapy Tentative chemotherapy 10/09. 10/04/21 Continue current regime 10/05 no changes to current regimen 10/06 no changes to current regimen 10/07/21 No positive effect from increase in Abilify Increase Clozaril to 100 mg bid, an increase of 50 mg daily, divided. Chemotherapy 10/09/21, Labs 10/08/21. 10/08/21 Tolerating Clozaril increase thus far Dexamethasone 4 mg hs and 4 mg a.m. pre chemo per Dr. Mora Support, encourage 10/09/21 Continue current plan of care 10/10/21 Continue current plan of care 10/11/21 Continue current plan. Will re-eval for Clozaril increase next week. 10/12/2021: Continue current regimen and plans.? No changes were made today 10/13/2021: Continue current plans and regimen. 10/14/21: Increase Clozaril to 125 mg bid ? EKG, CBCD, CMP 10/15 prior to chemotherapy 10/15/21: Continue current plan of care 10/16/21: Continue current plan. Tolerating Clozaril increase 10/17/21: Continue current regime. 10/18/21: Increase Clozaril to 150 mg bid ? Decrease Abilify to 20 mg daily ? ECT Consult 10/19/21: continue meds unchanged 10/20/21: pt continue to present as paranoid, withdrawn 10/21/21: Continue current regime. Labs/EKG 10/22. Some improvement today. 10/22/21: Labs/EKG WNL ? Meeting 10/24 with health care proxy's to discuss clozaril disc ontinuation ? ECT Consult 10/24/21: Continue current plan. 10/25/21: Continue current plan. 10/26: ECT may be indicated. Change Ativan to standing dose. 10/27 Increase Ativan to 1 mg TID and watch for sedation 10/28/21: CBCD, CMP, EKG 10/29/21 in preparation for chemotherapy ? Await Clozapine level results. 10/29/21: ECT consult 10/30 ? Chemotherapy 10/30 ? Await Clozapine level results. ? Tentative plan to taper Abilify, titrate Latuda. ? Family/HCP in agreement. Pt agrees as well. 10/30/21: Decrease Abilify to 10 mg daily to prepare to begin Latuda 10/31/21: Continue current plan. 11/01/21: Discontinue Abilify ? Latuda 20 mg 1800 11/02/21:? Continue current treatment plan 11/03/21:? Continue current treatment plan 11/04/21: Tolerating Latuda. Pt asks not to titrate yet. Some improvement noted. 11/05/21: Chemotherapy 11/06. Ready to titrate Latuda-family will discuss with pt. Thus far, a positive result, without adverse effect. ? EKG reading pending ? Sister will not be taking pt to chemotherapy on 11/06 as her son dela cruz s tested positive for COVID this afternoon. Partner Kailey will accompany pt. along with team. 11/06/21: Increase Latuda to 40 mg daily after evening meal. ? Increase Colace to 200 mg hs ? Miralax prn ? Per nursing report, pt will no longer need steroid dosing on Tuesdays before chemotherapy, but will receive dosing on Wednesdays in the chemotherapy dept. 11/07/21: Continue current plan. 11/08/21: Change Lorazepam prn to 1 mg bid 11/09/21: Tolerating Lorazepam. Continue plan of care. 11/10/21: Considering Latuda increase. 11/11/21: Increase Latuda to 60 mg daily. Labs pre chemotherapy. 11/12/21: Continue current plan. Care discussed with HCP Kailey- review of Ativan dosing, therapeutic Latuda dosing,pt's not understanding that her thought blocking, paranoia, belief that she will go to senior care are target sx for medication increase. 11/14/21: Continue current plan. Discharge planning with consistent improvement. 11/15/21: continue current medications per primary treatment team. 11/16/2021 Patient seen in psychiatric follow-up patient depressed withdrawn hopeless helpless despondent again discussed option of ECT 11/17/2021 Patient's case reviewed with nursing staff.? Patient seen.? Patient somewhat with cardoso affect today less withdrawn able to engage in discussion regarding Latuda and possibility of ECT treatment.? Continue clozapine Latuda 11/18- discussed with significant other possibility of: underlying paraneoplastic syndrome related to breast carcinona- mainly 4 antibodies have been related to this type of cancer ([employer]-2, Anti-yo ([employer]PERVISOR-1); Anti-RI (corona-2); and antiamphiphysin) mostly causing cerebellar disfunction including opsoclonus (and myoclonus) which pt appears to have along with other cognitive and psychiatric symptoms. Will order MRI- r/o encephalitis related to chemo or any limbic/cerebellar pathology. Sent message to oncologist. Pt does psychiatric condition appears to significantly improved with dexamethaxone. Also if classic paraneoplastic, which is the one mostly related to cancer tumors,? serum antibodies testing may suffice (without CSF testing).? 11/19 continue current medications- pending mri, paraneoplastic panel. 11/20- continue current medications, pending discussion with oncology re: paraneoplastic syndome, pending MRI 11/21 will d/c wellbutrin as it can worsen psychosis. continue all other meds. MRI shows microvascular changes and atrophy- moca at this time wouldn't be accurate given prominent psych symptoms. 11/22 continue current medications. 11/23 continue tx plan. 11/24 continue tx plan 11/25/21-Continue current plan I spent minutes with the patient and/or on the patient floor today, greater than?50% of which was spent counseling/coordinating care. Patient educated on: therapeutic strategies Informed Consent: further education needed Reason for contiued inpatient stay Substantial Risk for: inability to function and med/psych decompensation
[2021-11-25 21:10] VITALS: BP 123/81; PULSE 112
[2021-11-25] MEDS: Atorvastatin Calcium 10 MG TABLET 5 MG PO (21:22)
[2021-11-25] MEDS: Docusate Sodium 100 MG CAPSULE 200 MG PO (21:22)
[2021-11-25] MEDS: traZODone HCL 50 MG TABLET PO (21:22)
[2021-11-26 06:00] VITALS: BP 133/77; PULSE 124; RESP 18; TEMP 37.2; O2SAT 99
[2021-11-26] MEDS: Omeprazole 20 MG CAPSULE.DR PO (06:12)
[2021-11-26 07:44] LABS: MANUAL DIFF FLAG NO
[2021-11-26 07:47] LABS: Basophils Percent Auto 0.5 % (0-2); Eosinophils Percent Auto 0.2 % (0-4); Hematocrit 36.5 % (37.0-47.0); Imm Gran Abs Auto 0.05 X10*3/uL (0.00-0.03); Imm Gran Pct Auto 0.8 % (0.0-0.4); Lymphocytes Absolute Auto 1.7 X10*3/uL (1.2-4.9); Lymphocytes Percent Auto 26.4 % (20-40); Mean Corpuscular HGB Conc 32.9 g/dl (31.0-35.0); Mean Corpuscular Hemoglobin 31.7 pg (27.0-33.0); Mean Corpuscular Volume 96.3 fL (80.0-98.0); Mean Platelet Volume 10.6 fL (9.4-12.3); Monocytes Absolute Auto 0.3 X10*3/uL (0.1-1.2); Monocytes Percent Auto 5.3 % (2-11); Neut%MD 66.6 %; Neutrophils Absolute Auto 4.3 x10*3/uL (2.0-8.3); Neutrophils Absolute Auto 4.4 x10*3/uL (2.0-8.3); Neutrophils Percent Auto 66.8 % (45-73); Platelet Count 349 X10*3/uL (160-400); Red Blood Count 3.79 X10*6/uL (4.20-5.50); Red Cell Distribution Width 17.1 % (11.0-16.0); WBCANC 6.6 X10*3/uL; White Blood Count 6.4 X10*3/uL (4.8-10.8)
[2021-11-26 08:16] LABS: Alanine Aminotransferase 30 U/L (0-31); Albumin Level 4.2 g/dL (3.5-5.0); Alkaline Phosphatase 98 U/L (39-117); Anion Gap 15 (12-20); Aspartate Amino Transferase 18 U/L (5-31); Bilirubin Total 0.7 mg/dL (0.0-1.0); Blood Urea Nitrogen 13 mg/dL (9-16); Calcium 9.9 mg/dL (8.4-10.2); Carbon Dioxide 24 mmol/L (22-29); Chloride 105 mmol/L (96-108); Creatinine Clr Calc Pharmacy 83.8; Estimated Glomerular Filt Rate > 60; Glucose Random 175 mg/dL (60-115); Sodium 140 mmol/L (135-145); Total Protein 6.7 g/dL (6.5-8.0)
[2021-11-26] MEDS: cloZAPine 100 MG TABLET 150 MG PO ×2 (08:23→21:54)
[2021-11-26] MEDS: Losartan Potassium 25 MG TABLET PO (08:24)
[2021-11-26] MEDS: metFORMIN HCl 1,000 MG TABLET 1000 MG PO ×2 (08:24→21:52)
[2021-11-26] MEDS: Multivitamin TABLET 1 TAB PO (08:24)
[2021-11-26] MEDS: cloNIDine HCL 0.1 MG TABLET PO ×2 (08:24→21:53)
[2021-11-26] MEDS: Cyanocobalamin (Vitamin B-12) 1,000 MCG TABLET 1000 MCG PO (08:24)
[2021-11-26] MEDS: Ferrous Sulfate 324 MG TABLET.DR PO (08:24)
[2021-11-26] MEDS: LORazepam 1 MG TABLET PO ×2 (08:24→21:52)
[2021-11-26] MEDS: Cholecalciferol (Vitamin D3) 10 MCG TABLET PO (08:24)
[2021-11-26] MEDS: Ascorbic Acid 500 MG TABLET 1000 MG PO (08:24)
[2021-11-26 08:36] VITALS: BP 122/81; PULSE 113; RESP 16
[2021-11-26 09:14] LABS: Glucose, Whole Blood 157 mg/dL (60-115)
--- NOTE | 2021-11-26 10:00 | ECG_ITS ---
Test Reason : PRE CHEMO Blood Pressure : / mmHG Vent. Rate : 108 BPM Atrial Rate : 108 BPM P-R Int : 138 ms QRS Dur : 072 ms QT Int : 332 ms P-R-T Axes : 051 057 012 degrees QTc Int : 444 ms Sinus tachycardia Nonspecific T wave abnormality Abnormal ECG When compared with ECG of 19-NOV-2021 11:39, No significant change was found Referred By: Marci Jones Electronically Signed By:CECI MOLINA MD
[2021-11-26] MEDS: Enoxaparin Sodium 40 MG/0.4 ML SYRINGE SUBCUT (10:59)
--- NOTE | 2021-11-26 18:47 | P.PNPSI_ITS ---
Subjective Subjective Date of Service: 11/26/21 Reason For Visit: Depression paranoia Subjective Notes: Section 8 Healthcare Proxy: Yes Guardianship: No Medical Problems Affecting Mental Status: No Interim History: Discussed questions regarding memory, paraneoplastic syndrome. Visable, in [facility], social with peers, attending groups. Medication Compliance: Yes Side effects from medications: No Attending Groups: Yes Review of Systems Acute medical concerns: No Medical Review of Systems: unchanged Review of Systems Reports confusion and Reports memory loss Psychiatric: Reports anxiety, Reports confusion, Reports difficulty concentrating, Reports memory loss and Reports suicidal ideation (denies) Mental Status Exam Mental Status Exam Patient Appearance: Appropriate Patient Orientation: Person, Place, Time and Situation Level of Consciousness: Alert Patient Behavior: Talkative and Good Eye Contact Mood Description: Flat Affect Description: Flat Patient Cognition Impaired: Yes Ability to Follow Directions: Good Speech Pattern: Spontaneous Speech and Delayed Memory Description: Intact Hallucinations: None Delusions: Not Present Thought Process: Distracted Thought Content: positive for [place], positive for Suicidal Ideation (denies) and positive for Homicidal Ideation (denies) Judgement: Fair Diagnostics Vital Signs (24Hr): Vital Signs - 24 hr 11/25/21 21:10 11/26/21 06:00 11/26/21 08:36 Temperature 98.9 F Pulse Rate 112 H 124 H 113 H Respiratory Rate 18 16 Blood Pressure 123/81 133/77 122/81 Pulse Oximetry 99 BMI result Body Mass Index 30.9 Labs Results: 11/26/21 07:30 11/26/21 07:30 Labs: Laboratory Results - last 48 hr 11/25/21 11/26/21 11/26/21 06:23 07:30 07:30 WBC 6.4 RBC 3.79 L Hgb 12.0 Hct 36.5 L MCV 96.3 MCH 31.7 MCHC 32.9 RDW 17.1 H Plt Count 349 MPV 10.6 Immature Gran % (Auto) 0.8 H Neut % (Auto) 66.8 Lymph % (Auto) 26.4 [place] % (Auto) 5.3 Eos % (Auto) 0.2 Baso % (Auto) 0.5 Lymph # (Auto) 1.7 [place] # (Auto) 0.3 Eos # (Auto) 0.0 Baso # (Auto) 0.0 Abs Immat Gran (auto) 0.05 H Absolute Neuts (auto) 4.3 Absolute Nucleated RBC 0.000 Nucleated RBC % (auto) 0.0 Sodium Potassium Chloride Carbon Dioxide Anion Gap BUN Creatinine Cancelled Estim Creat Clear Calc Cancelled Estimated GFR Cancelled POC Glucose 122 H Random Glucose Calcium Total Bilirubin AST ALT Alkaline Phosphatase Total Protein Albumin 11/26/21 11/26/21 11/26/21 07:30 07:30 08:21 WBC RBC Hgb Hct MCV MCH MCHC RDW Plt Count MPV Immature Gran % (Auto) Neut % (Auto) Lymph % (Auto) [place] % (Auto) Eos % (Auto) Baso % (Auto) Lymph # (Auto) [place] # (Auto) Eos # (Auto) Baso # (Auto) Abs Immat Gran (auto) Absolute Neuts (auto) 4.4 Absolute Nucleated RBC Nucleated RBC % (auto) Sodium 140 Potassium 4.0 Chloride 105 Carbon Dioxide 24 Anion Gap 15 BUN 13 Creatinine 0.77 Estim Creat Clear Calc 83.8 Estimated GFR > 60 POC Glucose 157 H Random Glucose 175 H Calcium 9.9 Total Bilirubin 0.7 AST 18 ALT 30 Alkaline Phosphatase 98 Total Protein 6.7 Albumin 4.2 Imaging Radiology Impressions: ITS Impressions Brain MRI 11/20/21 13:00 IMPRESSION: 1. No acute intracranial abnormalities. 2. Mild underlying microangiopathy and generalized cerebral volume loss. Medications Medications Current Medications Acetaminophen (Acetaminophen 325 Mg Tablet) 650 mg PO Q6H PRN PRN Reason: Headache/Pain Mild Scale (1-3) Last Admin: 11/22/21 08:44 Dose: 650 mg Documented by: Al Hydroxide/Mg Hydroxide (Magnesium Hydrox/Alum Hydrox 30 Ml Oral.Susp) 30 ml PO Q6H PRN PRN Reason: Heartburn/Nausea Last Admin: 10/02/21 14:41 Dose: 30 ml Documented by: Ascorbic Acid (Ascorbic Acid 500 Mg Tablet) 1,000 mg PO DAILY [facility] Last Admin: 11/26/21 08:24 Dose: 1,000 mg Documented by: Atorvastatin Calcium (Atorvastatin Calcium 10 Mg Tablet) 5 mg PO BEDTIME [facility] Last Admin: 11/25/21 21:22 Dose: 5 mg Documented by: Clonidine HCl (Clonidine Hcl 0.1 Mg Tablet) 0.1 mg PO BID [facility]; Protocol Last Admin: 11/26/21 08:24 Dose: 0.1 mg Documented by: Clozapine (Clozapine 100 Mg Tablet) 150 mg PO BID [facility] Last Admin: 11/26/21 08:23 Dose: 150 mg Documented by: Cyanocobalamin (Cyanocobalamin (Vitamin B-12) 1,000 Mcg Tablet) 1,000 mcg PO DAILY [facility] Last Admin: 11/26/21 08:24 Dose: 1,000 mcg Documented by: Docusate Sodium (Docusate Sodium 100 Mg Capsule) 200 mg PO BEDTIME [facility] Last Admin: 11/25/21 21:22 Dose: 200 mg Documented by: Enoxaparin Sodium (Enoxaparin Sodium 40 Mg/0.4 Ml Syringe) 40 mg SUBCUT Q24H [facility] Last Admin: 11/26/21 10:59 Dose: 40 mg Documented by: Ferrous Sulfate (Ferrous Sulfate 324 Mg Tablet.) 324 mg PO DAILY [facility] Last Admin: 11/26/21 08:24 Dose: 324 mg Documented by: Hydroxyzine HCl (Hydroxyzine Hcl 25 Mg Tablet) 25 mg PO BEDTIME PRN PRN Reason: Anxiety Last Admin: 10/31/21 02:30 Dose: 25 mg Documented by: Lorazepam (Lorazepam 1 Mg Tablet) 1 mg PO BID [facility] Last Admin: 11/26/21 08:24 Dose: 1 mg Documented by: Losartan Potassium (Losartan Potassium 25 Mg Tablet) 25 mg PO DAILY [facility]; Protocol Last Admin: 11/26/21 08:24 Dose: 25 mg Documented by: Lurasidone HCl (Lurasidone Hcl 20 Mg Tablet) 60 mg PO 1800 [facility] Last Admin: 11/25/21 16:47 Dose: 60 mg Documented by: Magnesium Hydroxide (Milk Of Magnesia 30 Ml Oral.Susp) 30 ml PO DAILY PRN PRN Reason: Constipation Metformin HCl (Metformin Hcl 1,000 Mg Tablet) 1,000 mg PO BID [facility] Last Admin: 11/26/21 08:24 Dose: 1,000 mg Documented by: Multivitamins/Vitamin C (Multivitamin Tablet) 1 tab PO DAILY [facility] Last Admin: 11/26/21 08:24 Dose: 1 tab Documented by: Neomycin/Polymyxin/Bacitracin (Neomy/Polymyx/Bacit/Ointment 14 Gm Tube) 1 gm TOPICAL BID [facility]; Protocol Last Admin: 11/26/21 08:24 Dose: Not Given Documented by: Non-Formulary Medication (Cinnamon) 1,000 mg PO DAILY [facility] Last Admin: 11/26/21 08:23 Dose: 1,000 mg Documented by: Patient Own Medication ( Empagliflozin 10 Mg) 1 each PO DAILY [facility] Last Admin: 11/26/21 08:23 Dose: 1 each Documented by: Patient Own Medication (Dwayne Red Softgels) 1 each PO DAILY [facility] Last Admin: 11/26/21 08:23 Dose: 1 each Documented by: Omeprazole (Omeprazole 20 Mg Capsule.) 20 mg PO DAILY@0630 [facility] Last Admin: 11/26/21 06:12 Dose: 20 mg Documented by: Ondansetron HCl (Ondansetron Odt 8 Mg Tab.Rapdis) 8 mg TRANSLINGU Q8H PRN PRN Reason: nausea Polyethylene Glycol (Polyethylene Glycol 3350 17 Gm Powd.Pack) 17 gm PO DAILY PRN PRN Reason: Constipation Last Admin: 11/06/21 12:24 Dose: 17 gm Documented by: Prazosin HCl (Prazosin Hcl 1 Mg Capsule) 1 mg PO BEDTIME PRN; Protocol PRN Reason: nightmares Last Admin: 10/30/21 21:53 Dose: 1 mg Documented by: Trazodone HCl (Trazodone Hcl 50 Mg Tablet) 50 mg PO BEDTIME PRN PRN Reason: Insomnia Last Admin: 11/25/21 21:22 Dose: 50 mg Documented by: Vitamin D (Cholecalciferol (Vitamin D3) 10 Mcg Tablet) 10 mcg PO DAILY [facility] Last Admin: 11/26/21 08:24 Dose: 10 mcg Documented by: Allergies Allergies Allergy/AdvReac Type Severity Reaction Status Date / Time lisinopril [LISINOPRIL] Allergy Unknown SWOLLEN Verified 09/17/21 08:42 LIPS, angioedema, swelling Assessment & Plan Assessment & Plan (1) Schizoaffective disorder: Status: Acute Code(s): F25.9 - Schizoaffective disorder, unspecified (2) Facial weakness: Status: Acute Code(s): R29.810 - Facial weakness (3) Encephalopathy: Status: Acute Code(s): G93.40 - Encephalopathy, unspecified Plan 50 yo female, hx of schizoaffective disorder, depressed with R breast cancer, having just completed first cycle of chemotherapy. Pt's partner and sister report to crisis team that pt has had a significant mental status change with psychotic symptoms, paranoia, perceptual alterations, poor sleep and significant thought blocking. Pt denies SI, HI. Today she is a very poor historian-almost pre-catatonic at times, considering signing a three day notice of intent. Team report by history she may not be comfortable in this facility. Assessment plan for 09/21/2021 Continue current medical treatment elevated white blood count noted over the past month question related to cancer treatment.? No evidence of infection Patient depressed withdrawn preoccupied patient with recent treatment for ductal carcinoma stress of this might certainly lead to depressive almost catatonic episode 09/22/21 Pt with thought blocking improved from yeterday have restarted wellbutin hosp did not have sr cont clozapine evaluate baseline denies self harm oob more 09/23/21 Continue current plan of care. Collateral contacts with OP team, oncology. 09/24/21 Increase Abilify to 30 mg daily Pt currently refusing Lorazepam TDN expires 09/25/21-will file for civil commitment if pt persists in wanting discharge 09/25/21 Civil commitment filing completed Continue current regime. 09/26/21 Continue current regime 09/27/32 Decrease Abilify to 20 mg daily Risperdal 1.5 mg HS 09/28/21 Continue plan as above 09/29/21 No changes 09/30/21 Court 10/01/21 Chemotherapy 10/01/21 Increase Risperdal to 2.5 mg HS Decrease Abilify to 10 mg daily 10/02/21 Tolerating change back to Abilify from Risperdal Appetite is improved. Calmer, more visable, however continues with paranoia Jardiance ordered from [facility] 10/03/21 Increase Abilify to 30 mg daily Will pursue validation of pt's HCP for continued chemotherapy Tentative chemotherapy 10/09. 10/04/21 Continue current regime 10/05 no changes to current regimen 10/06 no changes to current regimen 10/07/21 No positive effect from increase in Abilify Increase Clozaril to 100 mg bid, an increase of 50 mg daily, divided. Chemotherapy 10/09/21, Labs 10/08/21. 10/08/21 Tolerating Clozaril increase thus far Dexamethasone 4 mg hs and 4 mg a.m. pre chemo per Dr. Mora Support, encourage 10/09/21 Continue current plan of care 10/10/21 Continue current plan of care 10/11/21 Continue current plan. Will re-eval for Clozaril increase next week. 10/12/2021: Continue current regimen and plans.? No changes were made today 10/13/2021: Continue current plans and regimen. 10/14/21: Increase Clozaril to 125 mg bid ? EKG, CBCD, CMP 10/15 prior to chemotherapy 10/15/21: Continue current plan of care 10/16/21: Continue current plan. Tolerating Clozaril increase 10/17/21: Continue current regime. 10/18/21: Increase Clozaril to 150 mg bid ? Decrease Abilify to 20 mg daily ? ECT Consult 10/19/21: continue meds unchanged 10/20/21: pt continue to present as paranoid, withdrawn 10/21/21: Continue current regime. Labs/EKG 10/22. Some improvement today. 10/22/21: Labs/EKG WNL ? Meeting 10/24 with health care proxy's to discuss clozaril discontinuation ? ECT Consult 10/24/21: Continue current plan. 10/25/21: Continue current plan. 10/26: ECT may be indicated. Change Ativan to standing dose. 10/27 Increase Ativan to 1 mg TID and watch for sedation 10/28/21: CBCD, CMP, EKG 10/29/21 in preparation for chemotherapy ? Await Clozapine level results. 10/29/21: ECT consult 10/30 ? Chemotherapy 10/30 ? Await Clozapine level results. ? Tentative plan to taper Abilify, titrate Latuda. ? Family/HCP in agreement. Pt agrees as well. 10/30/21: Decrease Abilify to 10 mg daily to prepare to begin Latuda 10/31/21: Continue current plan. 11/01/21: Discontinue Abilify ? Latuda 20 mg 1800 11/02/21:? Continue current treatment plan 11/03/21:? Continue current treatment plan 11/04/21: Tolerating Latuda. Pt asks not to titrate yet. Some improvement noted. 11/05/21: Chemotherapy 11/06. Ready to titrate Latuda-family will discuss with pt. Thus far, a positive result, without adverse effect. ? EKG reading pending ? Sister will not be taking pt to chemotherapy on 11/06 as her son has tested positive for COVID this afternoon. Partner Kailey will accompany pt. along with team. 11/06/21: Increase Latuda to 40 mg daily after evening meal. ? Increase Colace to 200 mg hs ? Miralax prn ? Per nursing report, pt will no longer need steroid dosing on Tuesdays before chemotherapy, but will receive dosing on Wednesdays in the [facility] motherapy dept. 11/07/21: Continue current plan. 11/08/21: Change Lorazepam prn to 1 mg bid 11/09/21: Tolerating Lorazepam. Continue plan of care. 11/10/21: Considering Latuda increase. 11/11/21: Increase Latuda to 60 mg daily. Labs pre chemotherapy. 11/12/21: Continue current plan. Care discussed with HCP Kailey- review of Ativan dosing, therapeutic Latuda dosing,pt's not understanding that her thought blocking, paranoia, belief that she will go to custodial are target sx for medication increase. 11/14/21: Continue current plan. Discharge planning with consistent improvement. 11/15/21: continue current medications per primary treatment team. 11/16/2021 Patient seen in psychiatric follow-up patient depressed withdrawn hopeless helpless despondent again discussed option of ECT 11/17/2021 Patient's case reviewed with nursing staff.? Patient seen.? Patient somewhat with cardoso affect today less withdrawn able to engage in discussion regarding Latuda and possibility of ECT treatment.? Continue clozapine Latuda 11/18- discussed with significant other possibility of: underlying paraneoplastic syndrome related to breast carcinona- mainly 4 antibodies have been related to this type of cancer (SAMPLE PREP TECHNICIAN-2, Anti-yo (SAMPLE PREP TECHNICIAN-1); Anti-RI (corona-2); and antiamphiphysin) mostly causing cerebellar disfunction including opsoclonus (and myoclonus) which pt appears to have along with other cognitive and psychiatric symptoms. Will order MRI- r/o encephalitis related to chemo or any limbic/cerebellar pathology. Sent message to oncologist. Pt does psychiatric condition appears to significantly improved with dexamethaxone. Also if classic paraneoplastic, which is the one mostly related to cancer tumors,? serum antib odies testing may suffice (without CSF testing).? 11/19 continue current medications- pending mri, paraneoplastic panel. 11/20- continue current medications, pending discussion with oncology re: parane oplastic syndome, pending MRI 11/21 will d/c wellbutrin as it can worsen psychosis. continue all other meds. MRI shows microvascular changes and atrophy- moca at this time wouldn't be accurate given prominent psych symptoms. 11/22 continue current medications. 11/23 continue tx plan. 11/24 continue tx plan 11/25/21-Continue current plan 11/26/21-Chemotherapy 11/27/21. Continue current plan I spent minutes with the patient and/or on the patient floor today, greater than?50% of which was spent counseling/coordinating care. Patient educated on: therapeutic strategies Informed Consent: further education needed Reason for contiued inpatient stay Substantial Risk for: harm to self, inability to function, rapid decompensation and med/psych decompensation
[2021-11-26 19:05] VITALS: BP 145/73; PULSE 111; TEMP 36.7; O2SAT 98
[2021-11-26] MEDS: Lurasidone HCl 20 MG TABLET 60 MG PO (19:12)
[2021-11-26] MEDS: Atorvastatin Calcium 10 MG TABLET 5 MG PO (21:49)
[2021-11-26] MEDS: Docusate Sodium 100 MG CAPSULE 200 MG PO (21:51)
[2021-11-26] MEDS: traZODone HCL 50 MG TABLET PO (21:56)
[2021-11-27] MEDS: Omeprazole 20 MG CAPSULE.DR PO (06:56)
[2021-11-27] MEDS: Cyanocobalamin (Vitamin B-12) 1,000 MCG TABLET 1000 MCG PO (08:18)
[2021-11-27] MEDS: Ferrous Sulfate 324 MG TABLET.DR PO (08:18)
[2021-11-27] MEDS: cloNIDine HCL 0.1 MG TABLET PO ×2 (08:18→20:55)
[2021-11-27] MEDS: Cholecalciferol (Vitamin D3) 10 MCG TABLET PO (08:18)
[2021-11-27] MEDS: Multivitamin TABLET 1 TAB PO (08:18)
[2021-11-27] MEDS: Ascorbic Acid 500 MG TABLET 1000 MG PO (08:18)
[2021-11-27] MEDS: LORazepam 1 MG TABLET PO ×2 (08:18→20:55)
[2021-11-27] MEDS: metFORMIN HCl 1,000 MG TABLET 1000 MG PO ×2 (08:18→20:55)
[2021-11-27] MEDS: cloZAPine 100 MG TABLET 150 MG PO ×2 (08:19→20:55)
[2021-11-27] MEDS: Losartan Potassium 25 MG TABLET PO (08:19)
[2021-11-27 08:24] VITALS: BP 114/83; PULSE 109; RESP 18; TEMP 36.3; O2SAT 97
[2021-11-27 08:35] LABS: Glucose, Whole Blood 148 mg/dL (60-115)
[2021-11-27] MEDS: Enoxaparin Sodium 40 MG/0.4 ML SYRINGE SUBCUT (13:39)
--- NOTE | 2021-11-27 16:13 | P.PNPSI_ITS ---
Subjective Subjective Date of Service: 11/27/21 Reason For Visit: Depression paranoia Subjective Notes: Section [employer] Healthcare Proxy: Yes Guardianship: No Medical Problems Affecting Mental Status: No Interim History: I am feeling tired today. Reports feeling worn after Rx today. EKG-no change, WBC 6.4 ANC 4.4 Medication Compliance: Yes Side effects from medications: No Attending Groups: No Review of Systems Acute medical concerns: No Medical Review of Systems: unchanged Review of Systems Reports memory loss Psychiatric: Reports difficulty concentrating, Reports auditory hallucinations (denies), Reports anhedonia, Reports memory loss, Reports suicidal ideation (denies) and Reports other (wanting to go home) Mental Status Exam Mental Status Exam Patient Appearance: Appropriate Patient Orientation: Person, Place, Time and Situation Level of Consciousness: Alert Patient Behavior: Talkative, Isolative and Poor Eye Contact Mood Description: Flat Affect Description: Flat Patient Cognition Impaired: No Ability to Follow Directions: Good Speech Pattern: Spontaneous Speech and Soft-Spoken Memory Description: Remote Impaired and Episodic Impaired Hallucinations: None Delusions: Not Present Thought Process: Goal Oriented Thought Content: positive for Williams Depressive Symptoms: Difficulty Concentrating Judgement: Fair Diagnostics Vital Signs (24Hr): Vital Signs - 24 hr 11/26/21 19:05 11/27/21 08:24 Temperature 98.0 F 97.4 F Pulse Rate 111 H 109 H Respiratory Rate 18 Blood Pressure 145/73 H 114/83 Pulse Oximetry 98 97 BMI result Body Mass Index 30.9 Labs Results: 11/26/21 07:30 11/26/21 07:30 Labs: Laboratory Results - last 48 hr 11/26/21 11/26/21 11/26/21 07:30 07:30 07:30 WBC 6.4 RBC 3.79 L Hgb 12.0 Hct 36.5 L MCV 96.3 MCH 31.7 MCHC 32.9 RDW 17.1 H Plt Count 349 MPV 10.6 Immature Gran % (Auto) 0.8 H Neut % (Auto) 66.8 Lymph % (Auto) 26.4 [place] % (Auto) 5.3 Eos % (Auto) 0.2 Baso % (Auto) 0.5 Lymph # (Auto) 1.7 [place] # (Auto) 0.3 Eos # (Auto) 0.0 Baso # (Auto) 0.0 Abs Immat Gran (auto) 0.05 H Absolute Neuts (auto) 4.3 Absolute Nucleated RBC 0.000 Nucleated RBC % (auto) 0.0 Sodium 140 Potassium 4.0 Chloride 105 Carbon Dioxide 24 Anion Gap 15 BUN 13 Creatinine Cancelled 0.77 Estim Creat Clear Calc Cancelled 83.8 Estimated GFR Cancelled > 60 POC Glucose Random Glucose 175 H Calcium 9.9 Total Bilirubin 0.7 AST 18 ALT 30 Alkaline Phosphatase 98 Total Protein 6.7 Albumin 4.2 11/26/21 11/26/21 11/27/21 07:30 08:21 08:32 WBC RBC Hgb Hct MCV MCH MCHC RDW Plt Count MPV Immature Gran % (Auto) Neut % (Auto) Lymph % (Auto) [place] % (Auto) Eos % (Auto) Baso % (Auto) Lymph # (Auto) [place] # (Auto) Eos # (Auto) Baso # (Auto) Abs Immat Gran (auto) Absolute Neuts (auto) 4.4 Absolute Nucleated RBC Nucleated RBC % (auto) Sodium Potassium Chloride Carbon Dioxide Anion Gap BUN Creatinine Estim Creat Clear Calc Estimated GFR POC Glucose 157 H 148 H Random Glucose Calcium Total Bilirubin AST ALT Alkaline Phosphatase Total Protein Albumin Imaging Radiology Impressions: ITS Impressions Brain MRI 11/20/21 13:00 IMPRESSION: 1. No acute intracranial abnormalities. 2. Mild underlying microangiopathy and generalized cerebral volume loss. Medications Medications Current Medications Acetaminophen (Acetaminophen 325 Mg Tablet) 650 mg PO Q6H PRN PRN Reason: Headache/Pain Mild Scale (1-3) Last Admin: 11/22/21 08:44 Dose: 650 mg Documented by: Al Hydroxide/Mg Hydroxide (Magnesium Hydrox/Alum Hydrox 30 Ml Oral.Susp) 30 ml PO Q6H PRN PRN Reason: Heartburn/Nausea Last Admin: 10/02/21 14:41 Dose: 30 ml Documented by: Ascorbic Acid (Ascorbic Acid 500 Mg Tablet) 1,000 mg PO DAILY MYRTLE Last Admin: 11/27/21 08:18 Dose: 1,000 mg Documented by: Atorvastatin Calcium (Atorvastatin Calcium 10 Mg Tablet) 5 mg PO BEDTIME MYRTLE Last Admin: 11/26/21 21:49 Dose: 5 mg Documented by: Clonidine HCl (Clonidine Hcl 0.1 Mg Tablet) 0.1 mg PO BID MYRTLE; Protocol Last Admin: 11/27/21 08:18 Dose: 0.1 mg Documented by: Clozapine (Clozapine 100 Mg Tablet) 150 mg PO BID [facility] Last Admin: 11/27/21 08:19 Dose: 150 mg Documented by: Cyanocobalamin (Cyanocobalamin (Vitamin B-12) 1,000 Mcg Tablet) 1,000 mcg PO DAILY [facility] Last Admin: 11/27/21 08:18 Dose: 1,000 mcg Documented by: Docusate Sodium (Docusate Sodium 100 Mg Capsule) 200 mg PO BEDTIME [facility] Last Admin: 11/26/21 21:51 Dose: 200 mg Documented by: Enoxaparin Sodium (Enoxaparin Sodium 40 Mg/0.4 Ml Syringe) 40 mg SUBCUT Q24H [facility] Last Admin: 11/27/21 13:39 Dose: 40 mg Documented by: Ferrous Sulfate (Ferrous Sulfate 324 Mg Tablet.) 324 mg PO DAILY [facility] Last Admin: 11/27/21 08:18 Dose: 324 mg Documented by: Hydroxyzine HCl (Hydroxyzine Hcl 25 Mg Tablet) 25 mg PO BEDTIME PRN PRN Reason: Anxiety Last Admin: 10/31/21 02:30 Dose: 25 mg Documented by: Lorazepam (Lorazepam 1 Mg Tablet) 1 mg PO BID [facility] Last Admin: 11/27/21 08:18 Dose: 1 mg Documented by: Losartan Potassium (Losartan Potassium 25 Mg Tablet) 25 mg PO DAILY [facility]; Protocol Last Admin: 11/27/21 08:19 Dose: 25 mg Documented by: Lurasidone HCl (Lurasidone Hcl 20 Mg Tablet) 60 mg PO 1800 [facility] Last Admin: 11/26/21 19:12 Dose: 60 mg Documented by: Magnesium Hydroxide (Milk Of Magnesia 30 Ml Oral.Susp) 30 ml PO DAILY PRN PRN Reason: Constipation Metformin HCl (Metformin Hcl 1,000 Mg Tablet) 1,000 mg PO BID [facility] Last Admin: 11/27/21 08:18 Dose: 1,000 mg Documented by: Multivitamins/Vitamin C (Multivitamin Tablet) 1 tab PO DAILY [facility] Last Admin: 11/27/21 08:18 Dose: 1 tab Documented by: Neomycin/Polymyxin/Bacitracin (Neomy/Polymyx/Bacit/Ointment 14 Gm Tube) 1 gm TOPICAL BID [facility]; Protocol Last Admin: 11/27/21 09:03 Dose: Not Given Documented by: Non-Formulary Medication (Cinnamon) 1,000 mg PO DAILY [facility] Last Admin: 11/27/21 08:18 Dose: 1,000 mg Documented by: Patient Own Medication ( Empagliflozin 10 Mg) 1 each PO DAILY [facility] Last Admin: 11/27/21 08:18 Dose: 1 each Documented by: Patient Own Medication (Dwayne Red Softgels) 1 each PO DAILY [facility] Last Admin: 11/27/21 08:18 Dose: 1 each Documented by: Omeprazole (Omeprazole 20 Mg Capsule.) 20 mg PO DAILY@0630 [facility] Last Admin: 11/27/21 06:56 Dose: 20 mg Documented by: Ondansetron HCl (Ondansetron Odt 8 Mg Tab.Rapdis) 8 mg TRANSLINGU Q8H PRN PRN Reason: nausea Polyethylene Glycol (Polyethylene Glycol 3350 17 Gm Powd.Pack) 17 gm PO DAILY PRN PRN Reason: Constipation Last Admin: 11/06/21 12:24 Dose: 17 gm Documented by: Prazosin HCl (Prazosin Hcl 1 Mg Capsule) 1 mg PO BEDTIME PRN; Protocol PRN Reason: nightmares Last Admin: 10/30/21 21:53 Dose: 1 mg Documented by: Trazodone HCl (Trazodone Hcl 50 Mg Tablet) 50 mg PO BEDTIME PRN PRN Reason: Insomnia Last Admin: 11/26/21 21:56 Dose: 50 mg Documented by: Vitamin D (Cholecalciferol (Vitamin D3) 10 Mcg Tablet) 10 mcg PO DAILY [facility] Last Admin: 11/27/21 08:18 Dose: 10 mcg Documented by: Allergies Allergies Allergy/AdvReac Type Severity Reaction Status Date / Time lisinopril [LISINOPRIL] Allergy Unknown SWOLLEN Verified 09/17/21 08:42 LIPS, angioedema, swelling Assessment & Plan Assessment & Plan (1) Schizoaffective disorder: Status: Acute Code(s): F25.9 - Schizoaffective disorder, unspecified (2) Facial weakness: Status: Acute Code(s): R29.810 - Facial weakness (3) Encephalopathy: Status: Acute Code(s): G93.40 - Encephalopathy, unspecified Plan 50 yo female, hx of schizoaffective disorder, depressed with R breast cancer, having just completed first cycle of chemotherapy. Pt's partner and sister report to crisis team that pt has had a significant mental status change with psychotic symptoms, paranoia, perceptual alterations, poor sleep and significant thought blocking. Pt denies SI, HI. Today she is a very poor historian-almost pre-catatonic at times, considering signing a three day notice of intent. Team report by history she may not be comfortable in this facility. Assessment plan for 09/21/2021 Continue current medical treatment elevated white blood count noted over the past month question related to cancer treatment.? No evidence of infection Patient depressed withdrawn preoccupied patient with recent treatment for ductal carcinoma stress of this might certainly lead to depressive almost catatonic episode 09/22/21 Pt with thought blocking improved from yeterday have restarted wellbutin hosp did not have sr cont clozapine evaluate baseline denies self harm oob more 09/23/21 Continue current plan of care. Collateral contacts with OP team, oncology. 09/24/21 Increase Abilify to 30 mg daily Pt currently refusing Lorazepam TDN expires 09/25/21-will file for civil commitment if pt persists in wanting discharge 09/25/21 Civil commitment filing completed Continue current regime. 09/26/21 Continue current regime 09/27/32 Decrease Abilify to 20 mg daily Risperdal 1.5 mg HS 09/28/21 Continue plan as above 09/29/21 No changes 09/30/21 Court 10/01/21 Chemotherapy 10/01/21 Increase Risperdal to 2.5 mg HS Decrease Abilify to 10 mg daily 10/02/21 Tolerating change back to Abilify from Risperdal Appetite is improved. Calmer, more visable, however continues with paranoia Jardiance ordered from [facility] 10/03/21 Increase Abilify to 30 mg daily Will pursue validation of pt's HCP for continued chemotherapy Tentative chemotherapy 10/09. 10/04/21 Continue current regime 10/05 no changes to current regimen 10/06 no changes to current regimen 10/07/21 No positive effect from increase in Abilify Increase Clozaril to 100 mg bid, an increase of 50 mg daily, divided. Chemotherapy 10/09/21, Labs 10/08/21. 10/08/21 Tolerating Clozaril increase thus far Dexamethasone 4 mg hs and 4 mg a.m. pre chemo per Dr. Mora Support, encourage 10/09/21 Continue current plan of care 10/10/21 Continue current plan of care 10/11/21 Continue current plan. Will re-eval for Clozaril increase next week. 10/12/2021: Continue current regimen and plans.? No changes were made today 10/13/2021: Continue current plans and regimen. 10/14/21: Increase Clozaril to 125 mg bid ? EKG, CBCD, CMP 10/15 prior to chemotherapy 10/15/21: Continue current plan of care 10/16/21: Continue current plan. Tolerating Clozaril increase 10/17/21: Continue current regime. 10/18/21: Increase Clozaril to 150 mg bid ? Decrease Abilify to 20 mg daily ? ECT Consult 10/19/21: continue meds unchanged 10/20/21: pt continue to present as paranoid, withdrawn 10/21/21: Continue current regime. Labs/EKG 10/22. Some improvement today. 10/22/21: Labs/EKG WNL ? Meeting 10/24 with health care proxy's to discuss clozaril discontinuation ? ECT Consult 10/24/21: Continue current plan. 10/25/21: Continue current plan. 10/26: ECT may be indicated. Change Ativan to standing dose. 10/27 Increase Ativan to 1 mg TID and watch for sedation 10/28/21: CBCD, CMP, EKG 10/29/21 in preparation for chemotherapy ? Await Clozapine level results. 10/29/21: ECT consult 10/30 ? Chemotherapy 10/30 ? Await Clozapine level results. ? Tentative plan to taper Abilify, titrate Latuda. ? Family/HCP in agreement. Pt agrees as well. 10/30/21: Decrease Abilify to 10 mg daily to prepare to begin Latuda 10/31/21: Continue current plan. 11/01/21: Discontinue Abilify ? Latuda 20 mg 1800 11/02/21:? Continue current treatment plan 11/03/21:? Continue current treatment plan 11/04/21: Tolerating Latuda. Pt asks not to titrate yet. Some improvement noted. 11/05/21: Chemotherapy 11/06. Ready to titrate Latuda-family will discuss with pt. Thus far, a positive result, without adverse effect. ? EKG reading pending ? Sister will not be taking pt to chemotherapy on 11/06 as her son has tested positive for COVID this afternoon. Partner Kailey will accompany pt. along with team. 11/06/21: Increase Latuda to 40 mg daily after evening meal. ? Increase Colace to 200 mg hs ? Miralax prn ? Per nursing report, pt will no longer need steroid dosing on Tuesdays before chemotherapy, but will receive dosing on Wednesdays in the chemotherapy dept. 11/07/21: Continue current plan. 11/08/21: Change Lorazepam prn to 1 mg bid 11/09/21: Tolerating Lorazepam. Continue plan of care. 11/10/21: Considering Latuda increase. 11/11/21: Increase Latuda to 60 mg daily. Labs pre chemotherapy. 11/12/21: Continue current plan. Care discussed with HCP Kailey- review of Ativan dosing, therapeutic Latuda dosing,pt's not understanding that her thought blocking, paranoia, belief that she will go to senior living are target sx for me dication increase. 11/14/21: Continue current plan. Discharge planning with consistent improvement. 11/15/21: continue current medications per primary treatment team. 11/16/2021 Patient seen in psychiatric follow-up patient depressed withdrawn hopeless helpless despondent again discussed option of ECT 11/17/2021 Patient's case reviewed with nursing staff.? Patient seen.? Patient somewhat with cardoso affect today less withdrawn able to engage in discussion regarding Latuda and possibility of ECT treatment.? Continue clozapine Latuda 11/18- discussed with significant other possibility of: underlying paraneoplastic syndrome related to breast carcinona- mainly 4 antibodies have been related to this type of cancer ([employer]-2, Anti-yo ([employer]-1); Anti-RI (corona-2); and antiamphiphysin) mostly causing cerebellar disfunction including opsoclonus (and myoclonus) which pt appears to have along with other cognitive and psychiatric symptoms. Will order MRI- r/o encephalitis related to chemo or any limbic/cere bellar pathology. Sent message to oncologist. Pt does psychiatric condition appears to significantly improved with dexamethaxone. Also if classic paraneoplastic, which is the one mostly related to cancer tumors,? serum antibodies testing may suffice (without CSF testing).? 11/19 continue current medications- pending mri, paraneoplastic panel. 11/20- continue current medications, pending discussion with oncology re: paraneoplastic syndome, pending MRI 11/21 will d/c wellbutrin as it can worsen psychosis. continue all other meds. MRI shows microvascular changes and atrophy- moca at this time wouldn't be accurate given prominent psych symptoms. 11/22 continue current medications. 11/23 continue tx plan. 11/24 continue tx plan 11/25/21-Continue current plan 11/26/21-Chemotherapy 11/27/21. Continue current plan 11/27/21- Continue current regime. Pt reports feeling tired after her treatment today. Labs pending. Pt discussing wanting to go home. I spent minutes with the patient and/or on the patient floor today, greater than?50% of which was spent counseling/coordinating care. Informed Consent: further education needed Reason for contiued inpatient stay Substantial Risk for: harm to self, inability to function and med/psych decompensation
[2021-11-27] MEDS: Lurasidone HCl 20 MG TABLET 60 MG PO (18:46)
[2021-11-27 20:56] VITALS: BP 141/94; PULSE 103; TEMP 36.6; O2SAT 98
[2021-11-27] MEDS: Docusate Sodium 100 MG CAPSULE 200 MG PO (21:00)
[2021-11-27] MEDS: Atorvastatin Calcium 10 MG TABLET 5 MG PO (21:00)
[2021-11-27] MEDS: traZODone HCL 50 MG TABLET PO (21:07)
[2021-11-28] MEDS: Omeprazole 20 MG CAPSULE.DR PO (06:07)
[2021-11-28 06:32] LABS: Glucose, Whole Blood 99 mg/dL (60-115)
[2021-11-28 06:50] VITALS: BP 116/77; PULSE 114; RESP 16; TEMP 36.3; O2SAT 97
[2021-11-28] MEDS: Multivitamin TABLET 1 TAB PO (09:37)
[2021-11-28] MEDS: Cholecalciferol (Vitamin D3) 10 MCG TABLET PO (09:37)
[2021-11-28] MEDS: metFORMIN HCl 1,000 MG TABLET 1000 MG PO ×2 (09:38→21:38)
[2021-11-28] MEDS: Losartan Potassium 25 MG TABLET PO (09:38)
[2021-11-28] MEDS: LORazepam 1 MG TABLET PO ×2 (09:38→21:38)
[2021-11-28] MEDS: cloZAPine 100 MG TABLET 150 MG PO ×2 (09:38→21:38)
[2021-11-28] MEDS: Ferrous Sulfate 324 MG TABLET.DR PO (09:38)
[2021-11-28] MEDS: Cyanocobalamin (Vitamin B-12) 1,000 MCG TABLET 1000 MCG PO (09:38)
[2021-11-28] MEDS: Ascorbic Acid 500 MG TABLET 1000 MG PO (09:38)
[2021-11-28] MEDS: cloNIDine HCL 0.1 MG TABLET PO ×2 (09:39→21:38)
--- NOTE | 2021-11-28 09:39 | P.PNPSI_ITS ---
Subjective Subjective Date of Service: 11/28/21 Reason For Visit: Depression paranoia Subjective Notes: Conditional Voluntary Interim History: Pt seen with her sister. Sister reports less delusions related to pt thinking she is in trouble. poverty of speech, constricted affect persists which family reports is not her baseline. Pt denies SI/HI. Visible on the unit, speech minimally spontaneous but not mute. Medication Compliance: Yes Side effects from medications: No Attending Groups: Intermittent Review of Systems Review of Systems Most of the problems were psychiatric in nature. There was no recent cold or f syl-like illness headache or change in bowel bladder pattern Yes all other systems are reviewed and are negative and Unobtainable due to mental status Reports behavioral changes, Reports confusion and Reports memory loss Psychiatric: Reports abnormal sleep pattern (pt reports due to new room-mate), Reports anxiety, Reports behavioral changes, Reports confusion, Reports depression, Reports difficulty concentrating, Reports auditory hallucinations (denies), Reports hopelessness, Reports anhedonia, Reports memory loss, Reports mood swings, Reports paranoia, Reports hallucinations, Reports homicidal ideation (denies), Reports suicidal ideation (denies) and Reports other (wanting to go home) Mental Status Exam Mental Status Exam Narrative: Patient Appearance:?Appropriate Patient Orientation:?Person, Place, Time and Situation Level of Consciousness:?Alert Patient Behavior:?Guarded, Cooperative, Passive, Suspicious, Timid, Anxious, Fearful, Avoidant, Fatigued, Distractible, Isolative and Good Eye Contact Mood Description:?Depressed Affect Description:?Flat Patient Cognition Impaired:?Yes Ability to Follow Directions:?Good Speech Pattern:?slowed Memory Description:?Episodic Impaired Hallucinations:?None Delusions:?Paranoid Ideation Perceptual Disturbances:?Depersonalization and Derealization Thought Process:?Distracted and Rumination Thought Content:?positive for [place], positive for Circumstantial, positive for Disorganized (per pt report) and positive for Suicidal Ideation Depressive Symptoms:?Increased Anxiety, Diff. Making Decisions, Loss of Int. in Activity, Feelings of Worthlessness, Hopelessness, Isolating-Friends/Family, Feelings of Guilt, Unhappiness, Increased Fatigue, Thoughts of /Suicide, Low Self Esteem, Loss of Energy and Difficulty Concentrating Judgement:?Poor Diagnostics Vital Signs (24Hr): Vital Signs - 24 hr 11/28/21 09:44 11/28/21 21:20 11/29/21 08:52 Temperature 97.4 F 98.3 F Pulse Rate 109 H 111 H 116 H Respiratory Rate 18 18 Blood Pressure 139/86 94/68 119/80 Pulse Oximetry 98 97 BMI result Body Mass Index 31.3 Labs Results: 11/26/21 07:30 11/26/21 07:30 Labs: Laboratory Results - last 48 hr 11/28/21 11/29/21 06:26 06:54 POC Glucose 99 116 H Imaging Radiology Impressions: ITS Impressions Brain MRI 11/20/21 13:00 IMPRESSION: 1. No acute intracranial abnormalities. 2. Mild underlying microangiopathy and generalized cerebral volume loss. Medications Medications Current Medications Acetaminophen (Acetaminophen 325 Mg Tablet) 650 mg PO Q6H PRN PRN Reason: Headache/Pain Mild Scale (1-3) Last Admin: 11/22/21 08:44 Dose: 650 mg Documented by: Al Hydroxide/Mg Hydroxide (Magnesium Hydrox/Alum Hydrox 30 Ml Oral.Susp) 30 ml PO Q6H PRN PRN Reason: Heartburn/Nausea Last Admin: 10/02/21 14:41 Dose: 30 ml Documented by: Ascorbic Acid (Ascorbic Acid 500 Mg Tablet) 1,000 mg PO DAILY [facility] Last Admin: 11/29/21 08:46 Dose: 1,000 mg Documented by: Atorvastatin Calcium (Atorvastatin Calcium 10 Mg Tablet) 5 mg PO BEDTIME [facility] Last Admin: 11/28/21 21:38 Dose: 5 mg Documented by: Clonidine HCl (Clonidine Hcl 0.1 Mg Tablet) 0.1 mg PO BID [facility]; Protocol Last Admin: 11/29/21 08:46 Dose: 0.1 mg Documented by: Clozapine (Clozapine 100 Mg Tablet) 150 mg PO BID [facility] Last Admin: 11/29/21 08:45 Dose: 150 mg Documented by: Cyanocobalamin (Cyanocobalamin (Vitamin B-12) 1,000 Mcg Tablet) 1,000 mcg PO DAILY [facility] Last Admin: 11/29/21 08:46 Dose: 1,000 mcg Documented by: Docusate Sodium (Docusate Sodium 100 Mg Capsule) 200 mg PO BEDTIME [facility] Last Admin: 11/28/21 21:38 Dose: 200 mg Documented by: Enoxaparin Sodium (Enoxaparin Sodium 40 Mg/0.4 Ml Syringe) 40 mg SUBCUT Q24H [facility] Last Admin: 11/28/21 10:28 Dose: 40 mg Documented by: Ferrous Sulfate (Ferrous Sulfate 324 Mg Tablet.) 324 mg PO DAILY [facility] Last Admin: 11/29/21 08:46 Dose: 324 mg Documented by: Hydroxyzine HCl (Hydroxyzine Hcl 25 Mg Tablet) 25 mg PO BEDTIME PRN PRN Reason: Anxiety Last Admin: 10/31/21 02:30 Dose: 25 mg Documented by: Lorazepam (Lorazepam 1 Mg Tablet) 1 mg PO BID [facility] Last Admin: 11/29/21 08:45 Dose: 1 mg Documented by: Losartan Potassium (Losartan Potassium 25 Mg Tablet) 25 mg PO DAILY [facility]; Protocol Last Admin: 11/29/21 08:45 Dose: 25 mg Documented by: Lurasidone HCl (Lurasidone Hcl 20 Mg Tablet) 60 mg PO 1800 [facility] Last Admin: 11/28/21 20:48 Dose: 60 mg Documented by: Magnesium Hydroxide (Milk Of Magnesia 30 Ml Oral.Susp) 30 ml PO DAILY PRN PRN Reason: Constipation Metformin HCl (Metformin Hcl 1,000 Mg Tablet) 1,000 mg PO BID [facility] Last Admin: 11/29/21 08:46 Dose: 1,000 mg Documented by: Multivitamins/Vitamin C (Multivitamin Tablet) 1 tab PO DAILY [facility] Last Admin: 11/29/21 08:46 Dose: 1 tab Documented by: Neomycin/Polymyxin/Bacitracin (Neomy/Polymyx/Bacit/Ointment 14 Gm Tube) 1 gm TOPICAL BID [facility]; Protocol Last Admin: 11/29/21 08:56 Dose: Not Given Documented by: Non-Formulary Medication (Cinnamon) 1,000 mg PO DAILY [facility] Last Admin: 11/29/21 08:45 Dose: 1,000 mg Documented by: Patient Own Medication ( Empagliflozin 10 Mg) 1 each PO DAILY [facility] Last Admin: 11/29/21 08:45 Dose: 1 each Documented by: Patient Own Medication (Dwayne Red Softgels) 1 each PO DAILY [facility] Last Admin: 11/29/21 08:45 Dose: 1 each Documented by: Omeprazole (Omeprazole 20 Mg Capsule.) 20 mg PO DAILY@0630 [facility] Last Admin: 11/29/21 06:51 Dose: 20 mg Documented by: Ondansetron HCl (Ondansetron Odt 8 Mg Tab.Rapdis) 8 mg TRANSLINGU Q8H PRN PRN Reason: nausea Polyethylene Glycol (Polyethylene Glycol 3350 17 Gm Powd.Pack) 17 gm PO DAILY PRN PRN Reason: Constipation Last Admin: 11/06/21 12:24 Dose: 17 gm Documented by: Prazosin HCl (Prazosin Hcl 1 Mg Capsule) 1 mg PO BEDTIME PRN; Protocol PRN Reason: nightmares Last Admin: 10/30/21 21:53 Dose: 1 mg Documented by: Trazodone HCl (Trazodone Hcl 50 Mg Tablet) 50 mg PO BEDTIME PRN PRN Reason: Insomnia Last Admin: 11/28/21 21:59 Dose: 50 mg Documented by: Vitamin D (Cholecalciferol (Vitamin D3) 10 Mcg Tablet) 10 mcg PO DAILY [facility] Last Admin: 11/29/21 08:46 Dose: 10 mcg Documented by: Allergies Allergies Allergy/AdvReac Type Severity Reaction Status Date / Time lisinopril [LISINOPRIL] Allergy Unknown SWOLLEN Verified 09/17/21 08:42 LIPS, angioedema, swelling Assessment & Plan Assessment & Plan (1) Schizoaffective disorder: Status: Acute Code(s): F25.9 - Schizoaffective disorder, unspecified (2) Facial weakness: Status: Acute Code(s): R29.810 - Facial weakness (3) Encephalopathy: Status: Acute Code(s): G93.40 - Encephalopathy, unspecified Plan 50 yo female, hx of schizoaffective disorder, depressed with R breast cancer, having just completed first cycle of chemotherapy. Pt's partner and sister report to crisis team that pt has had a significant mental status change with psychotic symptoms, paranoia, perceptual alterations, poor sleep and significant thought blocking. Pt denies SI, HI. Today she is a very poor historian-almost pre-catatonic at times, considering signing a three day notice of intent. Team report by history she may not be comfortable in this facility. Assessment plan for 09/21/2021 Continue current medical treatment elevated white blood count noted over the past month question related to cancer treatment.? No evidence of infection Patient depressed withdrawn preoccupied patient with recent treatment for ductal carcinoma stress of this might certainly lead to depressive almost catatonic episode 09/22/21 Pt with thought blocking improved from yeterday have restarted wellbutin hosp did not have sr cont clozapine evaluate baseline denies self harm oob more 09/23/21 Continue current plan of care. Collateral contacts with OP team, oncology. 09/24/21 Increase Abilify to 30 mg daily Pt currently refusing Lorazepam TDN expires 09/25/21-will file for civil commitment if pt persists in wanting discharge 09/25/21 Civil commitment filing completed Continue current regime. 09/26/21 Continue current regime 09/27/32 Decrease Abilify to 20 mg daily Risperdal 1.5 mg HS 09/28/21 Continue plan as above 09/29/21 No changes 09/30/21 Court 10/01/21 Chemotherapy 10/01/21 Increase Risperdal to 2.5 mg HS Decrease Abilify to 10 mg daily 10/02/21 Tolerating change back to Abilify from Risperdal Appetite is improved. Calmer, more visable, however continues with paranoia Jardiance ordered from [facility] 10/03/21 Increase Abilify to 30 mg daily Will pursue validation of pt's HCP for continued chemotherapy Tentative chemotherapy 10/09. 10/04/21 Continue current regime 10/05 no changes to current regimen 10/06 no changes to current regimen 10/07/21 No positive effect from increase in Abilify Increase Clozaril to 100 mg bid, an increase of 50 mg daily, divided. Chemotherapy 10/09/21, Labs 10/08/21. 10/08/21 Tolerating Clozaril increase thus far Dexamethasone 4 mg hs and 4 mg a.m. pre chemo per Dr. Mora Support, encourage 10/09/21 Continue current plan of care 10/10/21 Continue current plan of care 10/11/21 Continue current plan. Will re-eval for Clozaril increase next week. 10/12/2021: Continue current regimen and plans.? No changes were made today 10/13/2021: Continue current plans and regimen. 10/14/21: Increase Clozaril to 125 mg bid ? EKG, CBCD, CMP 10/15 prior to chemotherapy 10/15/21: Continue current plan of care 10/16/21: Continue current plan. Tolerating Clozaril increase 10/17/21: Continue current regime. 10/18/21: Increase Clozaril to 150 mg bid ? Decrease Abilify to 20 mg daily ? ECT Consult 10/19/21: continue meds unchanged 10/20/21: pt continue to present as paranoid, withdrawn 10/21/21: Continue current regime. Labs/EKG 10/22. Some improvement today. 10/22/21: Labs/EKG WNL ? Meeting 10/24 with health care proxy's to discuss clozaril discontinuation ? ECT Consult 10/24/21: Continue current plan. 10/25/21: Continue current plan. 10/26: ECT may be indicated. Change Ativan to standing dose. 10/27 Increase Ativan to 1 mg TID and watch for sedation 10/28/21: CBCD, CMP, EKG 10/29/21 in preparation for chemotherapy ? Await Clozapine level results. 10/29/21: ECT consult 10/30 ? Chemotherapy 10/30 ? Await Clozapine level results. ? Tentative plan to taper Abilify, titrate Latuda. ? Family/HCP in agreement. Pt agrees as well. 10/30/21: Decrease Abilify to 10 mg daily to prepare to begin Latuda 10/31/21: Continue current plan. 11/01/21: Discontinue Abilify ? Latuda 20 mg 1800 11/02/21:? Continue current treatment plan 11/03/21:? Continue current treatment plan 11/04/21: Tolerating Latuda. Pt asks not to titrate yet. Some improvement noted. 11/05/21: Chemotherapy 11/06. Ready to titrate Latuda-family will discuss with pt. Thus far, a positive result, without adverse effect. ? EKG reading pending ? Sister will not be taking pt to chemotherapy on 11/06 as her son has tested positive for COVID this afternoon. Partner Kailey will accompany pt. along with team. 11/06/21: Increase Latuda to 40 mg daily after evening meal. ? Increase Colace to 200 mg hs ? Miralax prn ? Per nursing report, pt will no longer need steroid dosing on Tuesdays before chemotherapy, but will receive dosing on Wednesdays in the chemotherapy dept. 11/07/21: Continue current plan. 11/08/21: Change Lorazepam prn to 1 mg bid 11/09/21: Tolerating Lorazepam. Continue plan of care. 11/10/21: Considering Latuda increase. 11/11/21: Increase Latuda to 60 mg daily. Labs pre chemotherapy. 11/12/21: Continue current plan. Care discussed with HCP Kailey- review of Ativan dosing, therapeutic Latuda dosing,pt's not understanding that her thought blocking, paranoia, belief that she will go to [facility] are target sx for m edication increase. 11/14/21: Continue current plan. Discharge planning with consistent improvement. 11/15/21: continue current medications per primary treatment team. 11/16/2021 Patient seen in psychiatric follow-up patient depressed withdrawn hopeless helpless despondent again discussed option of ECT 11/17/2021 Patient's case reviewed with nursing staff.? Patient seen.? Patient somewhat with cardoso affect today less withdrawn able to engage in discussion regarding Latuda and possibility of ECT treatment.? Continue clozapine Latuda 11/18- discussed with significant other possibility of: underlying paraneoplastic syndrome related to breast carcinona- mainly 4 antibodies have been related to this type of cancer (LEAF BINNER-2, Anti-yo (LEAF BINNER-1); Anti-RI (corona-2); and antiamphiphysin) mostly causing cerebellar disfunction including opsoclonus (and myoclonus) which pt appears to have along with other cognitive and psychiatric symptoms. Will order MRI- r/o encephalitis related to chemo or any limbic/cer ebellar pathology. Sent message to oncologist. Pt does psychiatric condition appears to significantly improved with dexamethaxone. Also if classic paraneoplastic, which is the one mostly related to cancer tumors,? serum antibodies testing may suffice (without CSF testing).? 11/19 continue current medications- pending mri, paraneoplastic panel. 11/20- continue current medications, pending discussion with oncology re: paraneoplastic syndome, pending MRI 11/21 will d/c wellbutrin as it can worsen psychosis. continue all other meds. MRI shows microvascular changes and atrophy- moca at this time wouldn't be accurate given prominent psych symptoms. 11/22 continue current medications. 11/23 continue tx plan. 11/24 continue tx plan 11/25/21-Continue current plan 11/26/21-Chemotherapy 11/27/21. Continue current plan 11/27/21- Continue current regime. Pt reports feeling tired after her treatment today. Labs pending. Pt discussing wanting to go home. 11/28- continue current tx. I spent minutes with the patient and/or on the patient floor today, greater than?50% of which was spent counseling/coordinating care. Reason for contiued inpatient stay Substantial Risk for: inability to function
[2021-11-28 09:44] VITALS: BP 139/86; PULSE 109; RESP 18; TEMP 36.3; O2SAT 98
[2021-11-28] MEDS: Enoxaparin Sodium 40 MG/0.4 ML SYRINGE SUBCUT (10:28)
[2021-11-28 10:55] VITALS: BMI 31.3
[2021-11-28] MEDS: Lurasidone HCl 20 MG TABLET 60 MG PO (20:48)
[2021-11-28 21:20] VITALS: BP 94/68; PULSE 111
[2021-11-28] MEDS: Docusate Sodium 100 MG CAPSULE 200 MG PO (21:38)
[2021-11-28] MEDS: Atorvastatin Calcium 10 MG TABLET 5 MG PO (21:38)
[2021-11-28] MEDS: traZODone HCL 50 MG TABLET PO (21:59)
[2021-11-29] MEDS: Omeprazole 20 MG CAPSULE.DR PO (06:51)
[2021-11-29 07:08] LABS: Glucose, Whole Blood 116 mg/dL (60-115)
[2021-11-29] MEDS: LORazepam 1 MG TABLET PO ×2 (08:45→20:25)
[2021-11-29] MEDS: cloZAPine 100 MG TABLET 150 MG PO ×2 (08:45→20:24)
[2021-11-29] MEDS: Losartan Potassium 25 MG TABLET PO (08:45)
[2021-11-29] MEDS: Cyanocobalamin (Vitamin B-12) 1,000 MCG TABLET 1000 MCG PO (08:46)
[2021-11-29] MEDS: Multivitamin TABLET 1 TAB PO (08:46)
[2021-11-29] MEDS: Ascorbic Acid 500 MG TABLET 1000 MG PO (08:46)
[2021-11-29] MEDS: cloNIDine HCL 0.1 MG TABLET PO ×2 (08:46→20:25)
[2021-11-29] MEDS: metFORMIN HCl 1,000 MG TABLET 1000 MG PO ×2 (08:46→20:25)
[2021-11-29] MEDS: Ferrous Sulfate 324 MG TABLET.DR PO (08:46)
[2021-11-29] MEDS: Cholecalciferol (Vitamin D3) 10 MCG TABLET PO (08:46)
[2021-11-29 08:52] VITALS: BP 119/80; PULSE 116; RESP 18; TEMP 36.8; O2SAT 97
[2021-11-29] MEDS: Enoxaparin Sodium 40 MG/0.4 ML SYRINGE SUBCUT (11:42)
--- NOTE | 2021-11-29 11:57 | HO.PSYCHPN ---
Subjective Subjective Date of Service: 11/29/21 Reason For Visit: Depression paranoia Subjective Notes: Section [employer] Healthcare Proxy: Yes Guardianship: No Medical Problems Affecting Mental Status: Yes Interim History: Sabra discussed today wanting a family meeting to begin to plan for discharge. She reports she does not feel ready yet, but wanted to begin to plan for VNA, day program and supportive services. I have been here a long while. Reports feeling somewhat tired today-states sleep is up and down. Finds Latuda helps to decrease my anxiety in the afternoon. Team reports a great day for pt on 11/28. She concurs- hoping there are more of them soon. Medication Compliance: Yes Side effects from medications: No Attending Groups: Yes Review of Systems Acute medical concerns: No Medical Review of Systems: unchanged Review of Systems Reports memory loss Psychiatric: Reports anxiety, Reports difficulty concentrating, Reports anhedonia and Reports memory loss Mental Status Exam Mental Status Exam Patient Appearance: Appropriate Patient Orientation: Person, Place, Time and Situation Level of Consciousness: Alert Patient Behavior: Talkative and Fatigued Mood Description: Withdrawn Affect Description: Withdrawn Patient Cognition Impaired: No Ability to Follow Directions: Good Speech Pattern: Spontaneous Speech Memory Description: Episodic Impaired Hallucinations: None Delusions: Not Present Thought Process: Distracted Thought Content: positive for Mikana and positive for Slowed Thinking Depressive Symptoms: Difficulty Sleeping and Difficulty Concentrating Judgement: Fair Diagnostics Vital Signs (24Hr): Vital Signs - 24 hr 11/28/21 21:20 11/29/21 08:52 Temperature 98.3 F Pulse Rate 111 H 116 H Respiratory Rate 18 Blood Pressure 94/68 119/80 Pulse Oximetry 97 BMI result Body Mass Index 31.3 Labs Results: 11/26/21 07:30 11/26/21 07:30 Labs: Laboratory Results - last 48 hr 11/28/21 11/29/21 06:26 06:54 POC Glucose 99 116 H Imaging Radiology Impressions: ITS Impressions Brain MRI 11/20/21 13:00 IMPRESSION: 1. No acute intracranial abnormalities. 2. Mild underlying microangiopathy and generalized cerebral volume loss. Medications Medications Current Medications Acetaminophen (Acetaminophen 325 Mg Tablet) 650 mg PO Q6H PRN PRN Reason: Headache/Pain Mild Scale (1-3) Last Admin: 11/22/21 08:44 Dose: 650 mg Documented by: Al Hydroxide/Mg Hydroxide (Magnesium Hydrox/Alum Hydrox 30 Ml Oral.Susp) 30 ml PO Q6H PRN PRN Reason: Heartburn/Nausea Last Admin: 10/02/21 14:41 Dose: 30 ml Documented by: Ascorbic Acid (Ascorbic Acid 500 Mg Tablet) 1,000 mg PO DAILY [facility] Last Admin: 11/29/21 08:46 Dose: 1,000 mg Documented by: Atorvastatin Calcium (Atorvastatin Calcium 10 Mg Tablet) 5 mg PO BEDTIME [facility] Last Admin: 11/28/21 21:38 Dose: 5 mg Documented by: Clonidine HCl (Clonidine Hcl 0.1 Mg Tablet) 0.1 mg PO BID [facility]; Protocol Last Admin: 11/29/21 08:46 Dose: 0.1 mg Documented by: Clozapine (Clozapine 100 Mg Tablet) 150 mg PO BID [facility] Last Admin: 11/29/21 08:45 Dose: 150 mg Documented by: Cyanocobalamin (Cyanocobalamin (Vitamin B-12) 1,000 Mcg Tablet) 1,000 mcg PO DAILY [facility] Last Admin: 11/29/21 08:46 Dose: 1,000 mcg Documented by: Docusate Sodium (Docusate Sodium 100 Mg Capsule) 200 mg PO BEDTIME [facility] Last Admin: 11/28/21 21:38 Dose: 200 mg Documented by: Enoxaparin Sodium (Enoxaparin Sodium 40 Mg/0.4 Ml Syringe) 40 mg SUBCUT Q24H [facility] Last Admin: 11/29/21 11:42 Dose: 40 mg Documented by: Ferrous Sulfate (Ferrous Sulfate 324 Mg Tablet.Dr) 324 mg PO DAILY [facility] Last Admin: 11/29/21 08:46 Dose: 324 mg Documented by: Hydroxyzine HCl (Hydroxyzine Hcl 25 Mg Tablet) 25 mg PO BEDTIME PRN PRN Reason: Anxiety Last Admin: 10/31/21 02:30 Dose: 25 mg Documented by: Lorazepam (Lorazepam 1 Mg Tablet) 1 mg PO BID [facility] Last Admin: 11/29/21 08:45 Dose: 1 mg Documented by: Losartan Potassium (Losartan Potassium 25 Mg Tablet) 25 mg PO DAILY [facility]; Protocol Last Admin: 11/29/21 08:45 Dose: 25 mg Documented by: Lurasidone HCl (Lurasidone Hcl 20 Mg Tablet) 60 mg PO 1800 [facility] Last Admin: 11/28/21 20:48 Dose: 60 mg Documented by: Magnesium Hydroxide (Milk Of Magnesia 30 Ml Oral.Susp) 30 ml PO DAILY PRN PRN Reason: Constipation Metformin HCl (Metformin Hcl 1,000 Mg Tablet) 1,000 mg PO BID [facility] Last Admin: 11/29/21 08:46 Dose: 1,000 mg Documented by: Multivitamins/Vitamin C (Multivitamin Tablet) 1 tab PO DAILY [facility] Last Admin: 11/29/21 08:46 Dose: 1 tab Documented by: Neomycin/Polymyxin/Bacitracin (Neomy/Polymyx/Bacit/Ointment 14 Gm Tube) 1 gm TOPICAL BID [facility]; Protocol Last Admin: 11/29/21 08:56 Dose: Not Given Documented by: Non-Formulary Medication (Cinnamon) 1,000 mg PO DAILY [facility] Last Admin: 11/29/21 08:45 Dose: 1,000 mg Documented by: Patient Own Medication ( Empagliflozin 10 Mg) 1 each PO DAILY [facility] Last Admin: 11/29/21 08:45 Dose: 1 each Documented by: Patient Own Medication (Dwayne Red Softgels) 1 each PO DAILY [facility] Last Admin: 11/29/21 08:45 Dose: 1 each Documented by: Omeprazole (Omeprazole 20 Mg Capsule.Dr) 20 mg PO DAILY@0630 [facility] Last Admin: 11/29/21 06:51 Dose: 20 mg Documented by: Ondansetron HCl (Ondansetron Odt 8 Mg Tab.Rapdis) 8 mg TRANSLINGU Q8H PRN PRN Reason: nausea Polyethylene Glycol (Polyethylene Glycol 3350 17 Gm Powd.Pack) 17 gm PO DAILY PRN PRN Reason: Constipation Last Admin: 11/06/21 12:24 Dose: 17 gm Documented by: Prazosin HCl (Prazosin Hcl 1 Mg Capsule) 1 mg PO BEDTIME PRN; Protocol PRN Reason: nightmares Last Admin: 10/30/21 21:53 Dose: 1 mg Documented by: Trazodone HCl (Trazodone Hcl 50 Mg Tablet) 50 mg PO BEDTIME PRN PRN Reason: Insomnia Last Admin: 11/28/21 21:59 Dose: 50 mg Documented by: Vitamin D (Cholecalciferol (Vitamin D3) 10 Mcg Tablet) 10 mcg PO DAILY [facility] Last Admin: 11/29/21 08:46 Dose: 10 mcg Documented by: Allergies Allergies Allergy/AdvReac Type Severity Reaction Status Date / Time lisinopril [LISINOPRIL] Allergy Unknown SWOLLEN Verified 09/17/21 08:42 LIPS, angioedema, swelling Assessment & Plan Assessment & Plan (1) Schizoaffective disorder: Status: Acute Code(s): F25.9 - Schizoaffective disorder, unspecified (2) Facial weakness: Status: Acute Code(s): R29.810 - Facial weakness (3) Encephalopathy: Status: Acute Code(s): G93.40 - Encephalopathy, unspecified Plan 50 yo female, hx of schizoaffective disorder, depressed with R breast cancer, having just completed first cycle of chemotherapy. Pt's partner and sister report to crisis team that pt has had a significant mental status change with psychotic symptoms, paranoia, perceptual alterations, poor sleep and significant thought blocking. Pt denies SI, HI. Today she is a very poor historian-almost pre-catatonic at times, considering signing a three day notice of intent. Team report by history she may not be comfortable in this facility. Assessment plan for 09/21/2021 Continue current medical treatment elevated white blood count noted over the past month question related to cancer treatment.? No evidence of infection Patient depressed withdrawn preoccupied patient with recent treatment for ductal carcinoma stress of this might certainly lead to depressive almost catatonic episode 09/22/21 Pt with thought blocking improved from yeterday have restarted wellbutin hosp did not have sr cont clozapine evaluate baseline denies self harm oob more 09/23/21 Continue current plan of care. Collateral contacts with OP team, oncology. 09/24/21 Increase Abilify to 30 mg daily Pt currently refusing Lorazepam TDN expires 09/25/21-will file for civil commitment if pt persists in wanting discharge 09/25/21 Civil commitment filing completed Continue current regime. 09/26/21 Continue current regime 09/27/32 Decrease Abilify to 20 mg daily Risperdal 1.5 mg HS 09/28/21 Continue plan as above 09/29/21 No changes 09/30/21 Court 10/01/21 Chemotherapy 10/01/21 Increase Risperdal to 2.5 mg HS Decrease Abilify to 10 mg daily 10/02/21 Tolerating change back to Abilify from Risperdal Appetite is improved. Calmer, more visable, however continues with paranoia [facility] [facility] 10/03/21 Increase Abilify to 30 mg daily Will pursue validation of pt's HCP for continued chemotherapy Tentative chemotherapy 10/09. 10/04/21 Continue current regime 10/05 no changes to current regimen 10/06 no changes to current regimen 10/07/21 No positive effect from increase in Abilify Increase Clozaril to 100 mg bid, an increase of 50 mg daily, divided. Chemotherapy 10/09/21, Labs 10/08/21. 10/08/21 Tolerating Clozaril increase thus far Dexamethasone 4 mg hs and 4 mg a.m. pre chemo per Dr. Mora Support, encourage 10/09/21 Continue current plan of care 10/10/21 Continue current plan of care 10/11/21 Continue current plan. Will re-eval for Clozaril increase next week. 10/12/2021: Continue current regimen and plans.? No changes were made today 10/13/2021: Continue current plans and regimen. 10/14/21: Increase Clozaril to 125 mg bid ? EKG, CBCD, CMP 10/15 prior to chemotherapy 10/15/21: Continue current plan of care 10/16/21: Continue current plan. Tolerating Clozaril increase 10/17/21: Continue current regime. 10/18/21: Increase Clozaril to 150 mg bid ? Decrease Abilify to 20 mg daily ? ECT Consult 10/19/21: continue meds unchanged 10/20/21: pt continue to present as paranoid, withdrawn 10/21/21: Continue current regime. Labs/EKG 10/22. Some improvement today. 10/22/21: Labs/EKG WNL ? Meeting 10/24 with health care proxy's to discuss clozaril discontinuation ? ECT Consult 10/24/21: Continue current plan. 10/25/21: Continue current plan. 10/26: ECT may be indicated. Change Ativan to standing dose. 10/27 Increase Ativan to 1 mg TID and watch for sedation 10/28/21: CBCD, CMP, EKG 10/29/21 in preparation for chemotherapy ? Await Clozapine level results. 10/29/21: ECT consult 10/30 ? Chemotherapy 10/30 ? Await Clozapine level results. ? Tentative plan to taper Abilify, titrate Latuda. ? Family/HCP in agreement. Pt agrees as well. 10/30/21: Decrease Abilify to 10 mg daily to prepare to begin Latuda 10/31/21: Continue current plan. 11/01/21: Discontinue Abilify ? Latuda 20 mg 1800 11/02/21:? Continue current treatment plan 11/03/21:? Continue current treatment plan 11/04/21: Tolerating Latuda. Pt asks not to titrate yet. Some improvement noted. 11/05/21: Chemotherapy 11/06. Ready to titrate Latuda-family will discuss with pt. Thus far, a positive result, without adverse effect. ? EKG reading pending ? Sister will not be taking pt to chemotherapy on 11/06 as her son has tested positive for COVID this afternoon. Partner Kailey will accompany pt. along with team. 11/06/21: Increase Latuda to 40 mg daily after evening meal. ? Increase Colace to 200 mg hs ? Miralax prn ? Per nursing report, pt will no longer need steroid dosing on Tuesdays before chemotherapy, but will receive dosing on Wednesdays in the chemotherapy dept. 11/07/21: Continue current plan. 11/08/21: Change Lorazepam prn to 1 mg bid 11/09/21: Tolerating Lorazepam. Continue plan of care. 11/10/21: Considering Latuda increase. 11/11/21: Increase Latuda to 60 mg daily. Labs pre chemotherapy. 11/12/21: Continue current plan. Care discussed with HCP Kailey- review of Ativan dosing, therapeutic Latuda dosing,pt's not understanding that her thought blocking, paranoia, belief that she will go to [facility] are target sx for medication increase. 11/14/21: Continue current plan. Discharge planning with consistent improvement. 11/15/21: continue current medications per primary treatment team. 11/16/2021 Patient seen in psychiatric follow-up patient depressed withdrawn hopeless helpless despondent again discussed option of ECT 11/17/2021 Patient's case reviewed with nursing staff.? Patient seen.? Patient somewhat with cardoso affect today less withdrawn able to engage in discussion regarding Latuda and possibility of ECT treatment.? Continue clozapine Latuda 11/18- discussed with significant other possibility of: underlying paraneoplastic syndrome related to breast carcinona- mainly 4 antibodies have been related to this type of cancer ([employer]-2, Anti-yo (KNOT SAW OPERATOR-1); Anti-RI (corona-2); and antiamphiphysin) mostly causing cerebellar disfunction including opsoclonus (and myoclonus) which pt appears to have along with other cognitive and psychiatric symptoms. Will order MRI- r/o encephalitis related to chemo or any limbic/cerebellar pathology. Sent message to oncologist. Pt does psychiatric condition appears to significantly improved with dexamethaxone. Also if classic paraneoplastic, which is the one mostly related to cancer tumors,? serum antibodies testing may suffice (without CSF testing).? 11/19 continue current medications- pending mri, paraneoplastic panel. 11/20- continue current medications, pending discussion with oncology re: paraneoplastic syndome, pending MRI 11/21 will d/c wellbutrin as it can worsen psychosis. continue all other meds. MRI shows microvascular changes and atrophy- moca at this time wouldn't be accurate given prominent psych symptoms. 11/22 continue current medications. 11/23 continue tx plan. 11/24 continue tx plan 11/25/21-Continue current plan 11/26/21-Chemotherapy 11/27/21. Continue current plan 11/27/21- Continue current regime. Pt reports feeling tired after her treatment today. Labs pending. Pt discussing wanting to go home. 11/28- continue current tx. 11/29/21- Continue current plan of care. I spent minutes with the patient and/or on the patient floor today, greater than?50% of which was spent counseling/coordinating care. Patient educated on: therapeutic strategies and other Informed Consent: understands and further education needed Reason for contiued inpatient stay Substantial Risk for: harm to self, inability to function and med/psych decompensation
[2021-11-29] MEDS: Lurasidone HCl 20 MG TABLET 60 MG PO (17:37)
[2021-11-29 18:00] VITALS: BP 112/74; PULSE 120; RESP 16; TEMP 37.1; O2SAT 97
[2021-11-29] MEDS: Atorvastatin Calcium 10 MG TABLET 5 MG PO (20:25)
[2021-11-29] MEDS: Docusate Sodium 100 MG CAPSULE 200 MG PO (20:25)
[2021-11-29] MEDS: traZODone HCL 50 MG TABLET PO (20:27)
[2021-11-30 06:28] LABS: Glucose, Whole Blood 117 mg/dL (60-115)
[2021-11-30] MEDS: Omeprazole 20 MG CAPSULE.DR PO (06:35)
[2021-11-30 08:46] VITALS: BP 131/90; PULSE 107; TEMP 36.3
[2021-11-30] MEDS: Losartan Potassium 25 MG TABLET PO (09:08)
[2021-11-30] MEDS: LORazepam 1 MG TABLET PO ×2 (09:08→21:01)
[2021-11-30] MEDS: Ferrous Sulfate 324 MG TABLET.DR PO (09:08)
[2021-11-30] MEDS: Cholecalciferol (Vitamin D3) 10 MCG TABLET PO (09:08)
[2021-11-30] MEDS: cloZAPine 100 MG TABLET 150 MG PO ×2 (09:08→20:59)
[2021-11-30] MEDS: Ascorbic Acid 500 MG TABLET 1000 MG PO (09:09)
[2021-11-30] MEDS: Multivitamin TABLET 1 TAB PO (09:09)
[2021-11-30] MEDS: metFORMIN HCl 1,000 MG TABLET 1000 MG PO ×2 (09:10→21:01)
[2021-11-30] MEDS: cloNIDine HCL 0.1 MG TABLET PO ×2 (09:10→20:59)
[2021-11-30] MEDS: Cyanocobalamin (Vitamin B-12) 1,000 MCG TABLET 1000 MCG PO (09:10)
[2021-11-30] MEDS: NeoMY/Polymyx/Bacit/Ointment 14 GM Tube TOPICAL (09:23)
[2021-11-30] MEDS: Enoxaparin Sodium 40 MG/0.4 ML SYRINGE SUBCUT (12:12)
--- NOTE | 2021-11-30 16:45 | P.PNPSI_ITS ---
Subjective Subjective Date of Service: 11/30/21 Reason For Visit: Depression paranoia Interim History: Patient says tip. She says I am doing okay. Denies any complaints requests. Mental Status Exam Mental Status Exam Narrative: Patient Appearance:?Appropriate Patient Orientation:?Person, Place, Time and Situation Level of Consciousness:?Alert Patient Behavior:?quiet, but polite Mood Description:? ok Affect Description:?little guarded Patient Cognition Impaired:?No Ability to Follow Directions:?Good Speech Pattern:?Spontaneous Speech Memory Description:?Episodic Impaired Hallucinations:?None Delusions:?Not Present Thought Process:?Distracted Thought Content:no SI/HI; ?positive for [place] and positive for Slowed Thinking Judgement:?Fair Diagnostics Vital Signs (24Hr): Vital Signs - 24 hr 11/29/21 18:00 11/30/21 08:46 Temperature 98.8 F 97.3 F Pulse Rate 120 H 107 H Respiratory Rate 16 Blood Pressure 112/74 131/90 H Pulse Oximetry 97 BMI result Body Mass Index 31.3 Labs Results: 11/26/21 07:30 11/26/21 07:30 Labs: Laboratory Results - last 48 hr 11/29/21 11/30/21 06:54 06:25 POC Glucose 116 H 117 H Imaging Radiology Impressions: ITS Impressions Brain MRI 11/20/21 13:00 IMPRESSION: 1. No acute intracranial abnormalities. 2. Mild underlying microangiopathy and generalized cerebral volume loss. Medications Medications Current Medications Acetaminophen (Acetaminophen 325 Mg Tablet) 650 mg PO Q6H PRN PRN Reason: Headache/Pain Mild Scale (1-3) Last Admin: 11/22/21 08:44 Dose: 650 mg Documented by: Al Hydroxide/Mg Hydroxide (Magnesium Hydrox/Alum Hydrox 30 Ml Oral.Susp) 30 ml PO Q6H PRN PRN Reason: Heartburn/Nausea Last Admin: 10/02/21 14:41 Dose: 30 ml Documented by: Ascorbic Acid (Ascorbic Acid 500 Mg Tablet) 1,000 mg PO DAILY [facility] Last Admin: 11/30/21 09:09 Dose: 1,000 mg Documented by: Atorvastatin Calcium (Atorvastatin Calcium 10 Mg Tablet) 5 mg PO BEDTIME MYRTLE Last Admin: 11/29/21 20:25 Dose: 5 mg Documented by: Clonidine HCl (Clonidine Hcl 0.1 Mg Tablet) 0.1 mg PO BID [facility]; Protocol Last Admin: 11/30/21 09:10 Dose: 0.1 mg Documented by: Clozapine (Clozapine 100 Mg Tablet) 150 mg PO BID [facility] Last Admin: 11/30/21 09:08 Dose: 150 mg Documented by: Cyanocobalamin (Cyanocobalamin (Vitamin B-12) 1,000 Mcg Tablet) 1,000 mcg PO DAILY [facility] Last Admin: 11/30/21 09:10 Dose: 1,000 mcg Documented by: Docusate Sodium (Docusate Sodium 100 Mg Capsule) 200 mg PO BEDTIME [facility] Last Admin: 11/29/21 20:25 Dose: 200 mg Documented by: Enoxaparin Sodium (Enoxaparin Sodium 40 Mg/0.4 Ml Syringe) 40 mg SUBCUT Q24H [facility] Last Admin: 11/30/21 12:12 Dose: 40 mg Documented by: Ferrous Sulfate (Ferrous Sulfate 324 Mg Tablet.) 324 mg PO DAILY [facility] Last Admin: 11/30/21 09:08 Dose: 324 mg Documented by: Hydroxyzine HCl (Hydroxyzine Hcl 25 Mg Tablet) 25 mg PO BEDTIME PRN PRN Reason: Anxiety Last Admin: 10/31/21 02:30 Dose: 25 mg Documented by: Lorazepam (Lorazepam 1 Mg Tablet) 1 mg PO BID [facility] Last Admin: 11/30/21 09:08 Dose: 1 mg Documented by: Losartan Potassium (Losartan Potassium 25 Mg Tablet) 25 mg PO DAILY [facility]; Protocol Last Admin: 11/30/21 09:08 Dose: 25 mg Documented by: Lurasidone HCl (Lurasidone Hcl 20 Mg Tablet) 60 mg PO 1800 [facility] Last Admin: 11/29/21 17:37 Dose: 60 mg Documented by: Magnesium Hydroxide (Milk Of Magnesia 30 Ml Oral.Susp) 30 ml PO DAILY PRN PRN Reason: Constipation Metformin HCl (Metformin Hcl 1,000 Mg Tablet) 1,000 mg PO BID [facility] Last Admin: 11/30/21 09:10 Dose: 1,000 mg Documented by: Multivitamins/Vitamin C (Multivitamin Tablet) 1 tab PO DAILY [facility] Last Admin: 11/30/21 09:09 Dose: 1 tab Documented by: Neomycin/Polymyxin/Bacitracin (Neomy/Polymyx/Bacit/Ointment 14 Gm Tube) 1 gm TOPICAL BID [facility]; Protocol Last Admin: 11/30/21 09:23 Dose: 1 gm Documented by: Non-Formulary Medication (Cinnamon) 1,000 mg PO DAILY [facility] Last Admin: 11/30/21 09:21 Dose: 1,000 mg Documented by: Patient Own Medication ( Empagliflozin 10 Mg) 1 each PO DAILY [facility] Last Admin: 11/30/21 09:20 Dose: 1 each Documented by: Patient Own Medication (Dwayne Red Softgels) 1 each PO DAILY [facility] Last Admin: 11/30/21 09:20 Dose: 1 each Documented by: Omeprazole (Omeprazole 20 Mg Capsule.) 20 mg PO DAILY@0630 [facility] Last Admin: 11/30/21 06:35 Dose: 20 mg Documented by: Ondansetron HCl (Ondansetron Odt 8 Mg Tab.Rapdis) 8 mg TRANSLINGU Q8H PRN PRN Reason: nausea Polyethylene Glycol (Polyethylene Glycol 3350 17 Gm Powd.Pack) 17 gm PO DAILY PRN PRN Reason: Constipation Last Admin: 11/06/21 12:24 Dose: 17 gm Documented by: Prazosin HCl (Prazosin Hcl 1 Mg Capsule) 1 mg PO BEDTIME PRN; Protocol PRN Reason: nightmares Last Admin: 10/30/21 21:53 Dose: 1 mg Documented by: Trazodone HCl (Trazodone Hcl 50 Mg Tablet) 50 mg PO BEDTIME PRN PRN Reason: Insomnia Last Admin: 11/29/21 20:27 Dose: 50 mg Documented by: Vitamin D (Cholecalciferol (Vitamin D3) 10 Mcg Tablet) 10 mcg PO DAILY [facility] Last Admin: 11/30/21 09:08 Dose: 10 mcg Documented by: Allergies Allergies Allergy/AdvReac Type Severity Reaction Status Date / Time lisinopril [LISINOPRIL] Allergy Unknown SWOLLEN Verified 09/17/21 08:42 LIPS, angioedema, swelling Assessment & Plan Assessment & Plan (1) Schizoaffective disorder: Status: Acute Code(s): F25.9 - Schizoaffective disorder, unspecified (2) Facial weakness: Status: Acute Code(s): R29.810 - Facial weakness (3) Encephalopathy: Status: Acute Code(s): G93.40 - Encephalopathy, unspecified Plan 50 yo female, hx of schizoaffective disorder, depressed with R breast cancer, having just completed first cycle of chemotherapy. Pt's partner and sister report to crisis team that pt has had a significant mental status change with psychotic symptoms, paranoia, perceptual alterations, poor sleep and significant thought blocking. Pt denies SI, HI. Today she is a very poor historian-almost pre-catatonic at times, considering signing a three day notice of intent. Team report by history she may not be comfortable in this facility. Assessment plan for 09/21/2021 Continue current medical treatment elevated white blood count noted over the past month question related to cancer treatment.? No evidence of infection Patient depressed withdrawn preoccupied patient with recent treatment for ductal carcinoma stress of this might certainly lead to depressive almost catatonic episode 09/22/21 Pt with thought blocking improved from yeterday have restarted wellbutin hosp did not have sr cont clozapine evaluate baseline denies self harm oob more 09/23/21 Continue current plan of care. Collateral contacts with OP team, oncology. 09/24/21 Increase Abilify to 30 mg daily Pt currently refusing Lorazepam TDN expires 09/25/21-will file for civil commitment if pt persists in wanting discharge 09/25/21 Civil commitment filing completed Continue current regime. 09/26/21 Continue current regime 09/27/32 Decrease Abilify to 20 mg daily Risperdal 1.5 mg HS 09/28/21 Continue plan as above 09/29/21 No changes 09/30/21 Court 10/01/21 Chemotherapy 10/01/21 Increase Risperdal to 2.5 mg HS Decrease Abilify to 10 mg daily 10/02/21 Tolerating change back to Abilify from Risperdal Appetite is improved. Calmer, more visable, however continues with paranoia Jardiance ordered from [facility] 10/03/21 Increase Abilify to 30 mg daily Will pursue validation of pt's HCP for continued chemotherapy Tentative chemotherapy 10/09. 10/04/21 Continue current regime 10/05 no changes to current regimen 10/06 no changes to current regimen 10/07/21 No positive effect from increase in Abilify Increase Clozaril to 100 mg bid, an increase of 50 mg daily, divided. Chemotherapy 10/09/21, Labs 10/08/21. 10/08/21 Tolerating Clozaril increase thus far Dexamethasone 4 mg hs and 4 mg a.m. pre chemo per Dr. Mora Support, encourage 10/09/21 Continue current plan of care 10/10/21 Continue current plan of care 10/11/21 Continue current plan. Will re-eval for Clozaril increase next week. 10/12/2021: Continue current regimen and plans.? No changes were made today 10/13/2021: Continue current plans and regimen. 10/14/21: Increase Clozaril to 125 mg bid ? EKG, CBCD, CMP 10/15 prior to chemotherapy 10/15/21: Continue current plan of care 10/16/21: Continue current plan. Tolerating Clozaril increase 10/17/21: Continue current regime. 10/18/21: Increase Clozaril to 150 mg bid ? Decrease Abilify to 20 mg daily ? ECT Consult 10/19/21: continue meds unchanged 10/20/21: pt continue to present as paranoid, withdrawn 10/21/21: Continue current regime. Labs/EKG 10/22. Some improvement today. 10/22/21: Labs/EKG WNL ? Meeting 10/24 with health care proxy's to discuss clozaril discontinuation ? ECT Consult 10/24/21: Continue current plan. 10/25/21: Continue current plan. 10/26: ECT may be indicated. Change Ativan to standing dose. 10/27 Increase Ativan to 1 mg TID and watch for sedation 10/28/21: CBCD, CMP, EKG 10/29/21 in preparation for chemotherapy ? Await Clozapine level results. 10/29/21: ECT consult 10/30 ? Chemotherapy 10/30 ? Await Clozapine level results. ? Tentative plan to taper Abilify, titrate Latuda. ? Family/HCP in agreement. Pt agrees as well. 10/30/21: Decrease Abilify to 10 mg daily to prepare to begin Latuda 10/31/21: Continue current plan. 11/01/21: Discontinue Abilify ? Latuda 20 mg 1800 11/02/21:? Continue current treatment plan 11/03/21:? Continue current treatment plan 11/04/21: Tolerating Latuda. Pt asks not to titrate yet. Some improvement noted. 11/05/21: Chemotherapy 11/06. Ready to titrate Latuda-family will discuss with pt. Thus far, a positive result, without adverse effect. ? EKG reading pending ? Sister will not be taking pt to chemotherapy on 11/06 as her son has tested positive for COVID this afternoon. Partner Kailey will accompany pt. along with team. 11/06/21: Increase Latuda to 40 mg daily after evening meal. ? Increase Colace to 200 mg hs ? Miralax prn ? Per nursing report, pt will no longer need steroid dosing on Tuesdays before chemotherapy, but will receive dosing on Wednesdays in the chemotherapy dept. 11/07/21: Continue current plan. 11/08/21: Change Lorazepam prn to 1 mg bid 11/09/21: Tolerating Lorazepam. Continue plan of care. 11/10/21: Considering Latuda increase. 11/11/21: Increase Latuda to 60 mg daily. Labs pre chemotherapy. 11/12/21: Continue current plan. Care discussed with HCP Kailey- review of Ativan dosing, therapeutic Latuda dosing,pt's not understanding that her thought blocking, paranoia, belief that she will go to long-term are target sx for medication increase. 11/14/21: Continue current plan. Discharge planning with consistent improvement. 11/15/21: continue current medications per primary treatment team. 11/16/2021 Patient seen in psychiatric follow-up patient depressed withdrawn hopeless helpless despondent again discussed option of ECT 11/17/2021 Patient's case reviewed with nursing staff.? Patient seen.? Patient somewhat with cardoso affect today less withdrawn able to engage in discussion regarding Latuda and possibility of ECT treatment.? Continue clozapine Latuda 11/18- discussed with significant other possibility of: underlying paraneoplastic syndrome related to breast carcinona- mainly 4 antibodies have been related to this type of cancer ([employer]-2, Anti-yo ([employer]ALE[employer]-1); Anti-RI (corona-2); and antiamphiphysin) mostly causing cerebellar disfunction including opsoclonus (and myoclonus) which pt appears to have along with other cognitive and psychiatric symptoms. Will order MRI- r/o encephalitis related to chemo or any limbic/ cerebellar pathology. Sent message to oncologist. Pt does psychiatric condition appears to significantly improved with dexamethaxone. Also if classic paraneoplastic, which is the one mostly related to cancer tumors,? serum antibodies testing may suffice (without CSF testing).? 11/19 continue current medications- pending mri, paraneoplastic panel. 11/20- continue current medications, pending discussion with oncology re: paraneoplastic syndome, pending MRI 11/21 will d/c wellbutrin as it can worsen psychosis. continue all other meds. MRI shows microvascular changes and atrophy- moca at this time wouldn't be accurate given prominent psych symptoms. 11/22 continue current medications. 11/23 continue tx plan. 11/24 continue tx plan 11/25/21-Continue current plan 11/26/21-Chemotherapy 11/27/21. Continue current plan 11/27/21- Continue current regime. Pt reports feeling tired after her treatment today. Labs pending. Pt discussing wanting to go home. 11/28- continue current tx. 11/29/21- Continue current plan of care. 11/30 continue current treatment plan I spent minutes with the patient and/or on the patient floor today, greater than?50% of which was spent counseling/coordinating care. Reason for contiued inpatient stay Substantial Risk for: med/psych decompensation
[2021-11-30 18:00] VITALS: BP 118/79; PULSE 113; RESP 18; TEMP 35.7; O2SAT 99
[2021-11-30] MEDS: Lurasidone HCl 20 MG TABLET 60 MG PO (18:10)
[2021-11-30] MEDS: Atorvastatin Calcium 10 MG TABLET 5 MG PO (20:57)
[2021-11-30] MEDS: Docusate Sodium 100 MG CAPSULE 200 MG PO (21:00)
[2021-11-30] MEDS: Prazosin HCL 1 MG CAPSULE PO (21:01)
[2021-11-30] MEDS: traZODone HCL 50 MG TABLET PO (21:02)
[2021-12-01 08:35] LABS: Glucose, Whole Blood 173 mg/dL (60-115)
[2021-12-01 09:09] VITALS: BP 128/85; PULSE 114; TEMP 36.3
[2021-12-01] MEDS: LORazepam 1 MG TABLET PO ×2 (09:16→21:06)
[2021-12-01] MEDS: Ferrous Sulfate 324 MG TABLET.DR PO (09:16)
[2021-12-01] MEDS: Losartan Potassium 25 MG TABLET PO (09:17)
[2021-12-01] MEDS: Cholecalciferol (Vitamin D3) 10 MCG TABLET PO (09:17)
[2021-12-01] MEDS: Ascorbic Acid 500 MG TABLET 1000 MG PO (09:17)
[2021-12-01] MEDS: metFORMIN HCl 1,000 MG TABLET 1000 MG PO ×2 (09:17→21:07)
[2021-12-01] MEDS: cloNIDine HCL 0.1 MG TABLET PO ×2 (09:17→21:06)
[2021-12-01] MEDS: Multivitamin TABLET 1 TAB PO (09:17)
[2021-12-01] MEDS: Cyanocobalamin (Vitamin B-12) 1,000 MCG TABLET 1000 MCG PO (09:18)
[2021-12-01] MEDS: Omeprazole 20 MG CAPSULE.DR PO (09:18)
[2021-12-01] MEDS: cloZAPine 100 MG TABLET 150 MG PO ×2 (09:19→21:07)
[2021-12-01] MEDS: Enoxaparin Sodium 40 MG/0.4 ML SYRINGE SUBCUT (13:13)
--- NOTE | 2021-12-01 17:28 | P.PNPSI_ITS ---
Subjective Subjective Date of Service: 12/01/21 Reason For Visit: Depression paranoia Interim History: Patient more talkative and engaging with marine underwriter then marine underwriter has experienced before and smiles when marine underwriter says so. She says hi Dr. Wang. She says she is okay...a little anxious about the meeting next Thursday. She lists the people who will meet and goes on to say she has mixed feelings about because [she] is not sure if [she's] definitely better. However she adds that at least it is a step in the right direction. She denies any SI or HI. Regarding voices she says I do not think I hear voices. No requests in no complaints. Mental Status Exam Mental Status Exam Narrative: Patient Appearance:?Appropriate Patient Orientation:?Person, Place, Time and Situation Level of Consciousness:?Alert Patient Behavior:?quiet, but polite Mood Description:? ok Affect Description:?warmer, more engaged Patient Cognition Impaired:?No Ability to Follow Directions:?Good Speech Pattern:?Spontaneous Speech Memory Description:?Episodic Impaired Hallucinations:?None Delusions:?Not Present Thought Process:?Distracted Thought Content:no SI/HI; ?positive for [place] and positive for Slowed Thinking Judgement:?Fair Diagnostics Vital Signs (24Hr): Vital Signs - 24 hr 11/30/21 18:00 12/01/21 09:09 Temperature 96.2 F L 97.4 F Pulse Rate 113 H 114 H Respiratory Rate 18 Blood Pressure 118/79 128/85 Pulse Oximetry 99 BMI result Body Mass Index 31.3 Labs Results: 11/26/21 07:30 11/26/21 07:30 Labs: Laboratory Results - last 48 hr 11/30/21 12/01/21 06:25 08:30 POC Glucose 117 H 173 H Imaging Radiology Impressions: ITS Impressions Brain MRI 11/20/21 13:00 IMPRESSION: 1. No acute intracranial abnormalities. 2. Mild underlying microangiopathy and generalized cerebral volume loss. Medications Medications Current Medications Acetaminophen (Acetaminophen 325 Mg Tablet) 650 mg PO Q6H PRN PRN Reason: Headache/Pain Mild Scale (1-3) Last Admin: 11/22/21 08:44 Dose: 650 mg Documented by: Al Hydroxide/Mg Hydroxide (Magnesium Hydrox/Alum Hydrox 30 Ml Oral.Susp) 30 ml PO Q6H PRN PRN Reason: Heartburn/Nausea Last Admin: 10/02/21 14:41 Dose: 30 ml Documented by: Ascorbic Acid (Ascorbic Acid 500 Mg Tablet) 1,000 mg PO DAILY [facility] Last Admin: 12/01/21 09:17 Dose: 1,000 mg Documented by: Atorvastatin Calcium (Atorvastatin Calcium 10 Mg Tablet) 5 mg PO BEDTIME [facility] Last Admin: 11/30/21 20:57 Dose: 5 mg Documented by: Clonidine HCl (Clonidine Hcl 0.1 Mg Tablet) 0.1 mg PO BID [facility]; Protocol Last Admin: 12/01/21 09:17 Dose: 0.1 mg Documented by: Clozapine (Clozapine 100 Mg Tablet) 150 mg PO BID [facility] Last Admin: 12/01/21 09:19 Dose: 150 mg Documented by: Cyanocobalamin (Cyanocobalamin (Vitamin B-12) 1,000 Mcg Tablet) 1,000 mcg PO DAILY [facility] Last Admin: 12/01/21 09:18 Dose: 1,000 mcg Documented by: Docusate Sodium (Docusate Sodium 100 Mg Capsule) 200 mg PO BEDTIME [facility] Last Admin: 11/30/21 21:00 Dose: 200 mg Documented by: Enoxaparin Sodium (Enoxaparin Sodium 40 Mg/0.4 Ml Syringe) 40 mg SUBCUT Q24H [facility] Last Admin: 12/01/21 13:13 Dose: 40 mg Documented by: Ferrous Sulfate (Ferrous Sulfate 324 Mg Tablet.Dr) 324 mg PO DAILY [facility] Last Admin: 12/01/21 09:16 Dose: 324 mg Documented by: Hydroxyzine HCl (Hydroxyzine Hcl 25 Mg Tablet) 25 mg PO BEDTIME PRN PRN Reason: Anxiety Last Admin: 10/31/21 02:30 Dose: 25 mg Documented by: Lorazepam (Lorazepam 1 Mg Tablet) 1 mg PO BID [facility] Last Admin: 12/01/21 09:16 Dose: 1 mg Documented by: Losartan Potassium (Losartan Potassium 25 Mg Tablet) 25 mg PO DAILY [facility]; Protocol Last Admin: 12/01/21 09:17 Dose: 25 mg Documented by: Lurasidone HCl (Lurasidone Hcl 20 Mg Tablet) 60 mg PO 1800 [facility] Last Admin: 11/30/21 18:10 Dose: 60 mg Documented by: Magnesium Hydroxide (Milk Of Magnesia 30 Ml Oral.Susp) 30 ml PO DAILY PRN PRN Reason: Constipation Metformin HCl (Metformin Hcl 1,000 Mg Tablet) 1,000 mg PO BID [facility] Last Admin: 12/01/21 09:17 Dose: 1,000 mg Documented by: Multivitamins/Vitamin C (Multivitamin Tablet) 1 tab PO DAILY [facility] Last Admin: 12/01/21 09:17 Dose: 1 tab Documented by: Neomycin/Polymyxin/Bacitracin (Neomy/Polymyx/Bacit/Ointment 14 Gm Tube) 1 gm TOPICAL BID [facility]; Protocol Last Admin: 12/01/21 13:16 Dose: Not Given Documented by: Non-Formulary Medication (Cinnamon) 1,000 mg PO DAILY [facility] Last Admin: 12/01/21 09:19 Dose: 1,000 mg Documented by: Patient Own Medication ( Empagliflozin 10 Mg) 1 each PO DAILY [facility] Last Admin: 12/01/21 09:20 Dose: 1 each Documented by: Patient Own Medication (Dwayne Red Softgels) 1 each PO DAILY [facility] Last Admin: 12/01/21 09:20 Dose: 1 each Documented by: Omeprazole (Omeprazole 20 Mg Capsule.Dr) 20 mg PO DAILY@0630 [facility] Last Admin: 12/01/21 09:18 Dose: 20 mg Documented by: Ondansetron HCl (Ondansetron Odt 8 Mg Tab.Rapdis) 8 mg TRANSLINGU Q8H PRN PRN Reason: nausea Polyethylene Glycol (Polyethylene Glycol 3350 17 Gm Powd.Pack) 17 gm PO DAILY PRN PRN Reason: Constipation Last Admin: 11/06/21 12:24 Dose: 17 gm Documented by: Prazosin HCl (Prazosin Hcl 1 Mg Capsule) 1 mg PO BEDTIME PRN; Protocol PRN Reason: nightmares Last Admin: 11/30/21 21:01 Dose: 1 mg Documented by: Trazodone HCl (Trazodone Hcl 50 Mg Tablet) 50 mg PO BEDTIME PRN PRN Reason: Insomnia Last Admin: 11/30/21 21:02 Dose: 50 mg Documented by: Vitamin D (Cholecalciferol (Vitamin D3) 10 Mcg Tablet) 10 mcg PO DAILY [facility] Last Admin: 12/01/21 09:17 Dose: 10 mcg Documented by: Allergies Allergies Allergy/AdvReac Type Severity Reaction Status Date / Time lisinopril [LISINOPRIL] Allergy Unknown SWOLLEN Verified 09/17/21 08:42 LIPS, angioedema, swelling Assessment & Plan Assessment & Plan (1) Schizoaffective disorder: Status: Acute Code(s): F25.9 - Schizoaffective disorder, unspecified (2) Facial weakness: Status: Acute Code(s): R29.810 - Facial weakness (3) Encephalopathy: Status: Acute Code(s): G93.40 - Encephalopathy, unspecified Plan 50 yo female, hx of schizoaffective disorder, depressed with R breast cancer, having just completed first cycle of chemotherapy. Pt's partner and sister report to crisis team that pt has had a significant mental status change with psychotic symptoms, paranoia, perceptual alterations, poor sleep and significant thought blocking. Pt denies SI, HI. Today she is a very poor historian-almost pre-catatonic at times, considering signing a three day notice of intent. Team report by history she may not be comfortable in this facility. Assessment plan for 09/21/2021 Continue current medical treatment elevated white blood count noted over the p ast month question related to cancer treatment.? No evidence of infection Patient depressed withdrawn preoccupied patient with recent treatment for ductal carcinoma stress of this might certainly lead to depressive almost catatonic episode 09/22/21 Pt with thought blocking improved from yeterday have restarted wellbutin hosp did not have sr cont clozapine evaluate baseline denies self harm oob more 09/23/21 Continue current plan of care. Collateral contacts with OP team, oncology. 09/24/21 Increase Abilify to 30 mg daily Pt currently refusing Lorazepam TDN expires 09/25/21-will file for civil commitment if pt persists in wanting discharge 09/25/21 Civil commitment filing completed Continue current regime. 09/26/21 Continue current regime 09/27/32 Decrease Abilify to 20 mg daily Risperdal 1.5 mg HS 09/28/21 Continue plan as above 09/29/21 No changes 09/30/21 Court 10/01/21 Chemotherapy 10/01/21 Increase Risperdal to 2.5 mg HS Decrease Abilify to 10 mg daily 10/02/21 Tolerating change back to Abilify from Risperdal Appetite is improved. Calmer, more visable, however continues with paranoia Jardiance ordered from [facility] pharmacy 10/03/21 Increase Abilify to 30 mg daily Will pursue validation of pt's HCP for continued chemotherapy Tentative chemotherapy 10/09. 10/04/21 Continue current regime 10/05 no changes to current regimen 10/06 no changes to current regimen 10/07/21 No positive effect from increase in Abilify Increase Clozaril to 100 mg bid, an increase of 50 mg daily, divided. Chemotherapy 10/09/21, Labs 10/08/21. 10/08/21 Tolerating Clozaril increase thus far Dexamethasone 4 mg hs and 4 mg a.m. pre chemo per Dr. Mora Support, encourage 10/09/21 Continue current plan of care 10/10/21 Continue current plan of care 10/11/21 Continue current plan. Will re-eval for Clozaril increase next week. 10/12/2021: Continue current regimen and plans.? No changes were made today 10/13/2021: Continue current plans and regimen. 10/14/21: Increase Clozaril to 125 mg bid ? EKG, CBCD, CMP 10/15 prior to chemotherapy 10/15/21: Continue current plan of care 10/16/21: Continue current plan. Tolerating Clozaril increase 10/17/21: Continue current regime. 10/18/21: Increase Clozaril to 150 mg bid ? Decrease Abilify to 20 mg daily ? ECT Consult 10/19/21: continue meds unchanged 10/20/21: pt continue to present as paranoid, withdrawn 10/21/21: Continue current regime. Labs/EKG 10/22. Some improvement today. 10/22/21: Labs/EKG WNL ? Meeting 10/24 with health care proxy's to discuss clozaril discontinuation ? ECT Consult 10/24/21: Continue current plan. 10/25/21: Continue current plan. 10/26: ECT may be indicated. Change Ativan to standing dose. 10/27 Increase Ativan to 1 mg TID and watch for sedation 10/28/21: CBCD, CMP, EKG 10/29/21 in preparation for chemotherapy ? Await Clozapine level results. 10/29/21: ECT consult 10/30 ? Chemotherapy 10/30 ? Await Clozapine level results. ? Tentative plan to taper Abilify, titrate Latuda. ? Family/HCP in agreement. Pt agrees as well. 10/30/21: Decrease Abilify to 10 mg daily to prepare to begin Latuda 10/31/21: Continue current plan. 11/01/21: Discontinue Abilify ? Latuda 20 mg 1800 11/02/21:? Continue current treatment plan 11/03/21:? Continue current treatment plan 11/04/21: Tolerating Latuda. Pt asks not to titrate yet. Some improvement noted. 11/05/21: Chemotherapy 11/06. Ready to titrate Latuda-family will discuss with pt. Thus far, a positive result, without adverse effect. ? EKG reading pending ? Sister will not be taking pt to chemotherapy on 11/06 as her son has tested positive for COVID this afternoon. Partner Kailey will accompany pt. along with team. 11/06/21: Increase Latuda to 40 mg daily after evening meal. ? Increase Colace to 200 mg hs ? Miralax prn ? Per nursing report, pt will no longer need steroid dosing on Tuesdays before chemotherapy, but will receive dosing on Wednesdays in the chemotherapy dept. 11/07/21: Continue current plan. 11/08/21: Change Lorazepam prn to 1 mg bid 11/09/21: Tolerating Lorazepam. Continue plan of care. 11/10/21: Considering Latuda increase. 11/11/21: Increase Latuda to 60 mg daily. Labs pre chemotherapy. 11/12/21: Continue current plan. Care discussed with HCP Kailey- review of Ativan dosing, therapeutic Latuda dosing,pt's not understanding that her thought blocking, paranoia, belief that she will go to correction are target sx for medication increase. 11/14/21: Continue current plan. Discharge planning with consistent improvement. 11/15/21: continue current medications per primary treatment team. 11/16/2021 Patient seen in psychiatric follow-up patient depressed withdrawn hopeless helpless despondent again discussed option of ECT 11/17/2021 Patient's case reviewed with nursing staff.? Patient seen.? Patient somewhat with cardoso affect today less withdrawn able to engage in discussion regarding Latuda and possibility of ECT treatment.? Continue clozapine Latuda 11/18- discussed with significant other possibility of: underlying paraneoplastic syndrome related to breast carcinona- mainly 4 antibodies have been related to this type of cancer (ADVANCED NURSING PROFESSOR-2, Anti-yo (ADVANCED NURSING PROFESSOR-1); Anti-RI (corona-2); and antiamphiphysin) mostly causing cerebellar disfunction including opsoclonus (and myoclonus) which pt appears to have along with other cognitive and psychiatric symptoms. Will order MRI- r/o encephalitis related to chemo or any limbic/cerebellar pathology. Sent message to oncologist. Pt does psychiatric condition appears to significantly improved with dexamethaxone. Also if classic paraneoplastic, which is the one mostly related to cancer tumors,? serum a ntibodies testing may suffice (without CSF testing).? 11/19 continue current medications- pending mri, paraneoplastic panel. 11/20- continue current medications, pending discussion with oncology re: bijan raneoplastic syndome, pending MRI 11/21 will d/c wellbutrin as it can worsen psychosis. continue all other meds. MRI shows microvascular changes and atrophy- moca at this time wouldn't be accurate given prominent psych symptoms. 11/22 continue current medications. 11/23 continue tx plan. 11/24 continue tx plan 11/25/21-Continue current plan 11/26/21-Chemotherapy 11/27/21. Continue current plan 11/27/21- Continue current regime. Pt reports feeling tired after her treatment today. Labs pending. Pt discussing wanting to go home. 11/28- continue current tx. 11/29/21- Continue current plan of care. 11/30 continue current treatment plan 12/01 continue current treatment plan; patient brighter and more engaging then b efore I spent minutes with the patient and/or on the patient floor today, greater than?50% of which was spent counseling/coordinating care. Patient educated on: diagnosis Informed Consent: understands Reason for contiued inpatient stay Substantial Risk for: other
[2021-12-01 18:00] VITALS: BP 117/78; PULSE 122; RESP 16; TEMP 36.6; O2SAT 98
[2021-12-01] MEDS: Lurasidone HCl 20 MG TABLET 60 MG PO (19:08)
[2021-12-01] MEDS: Docusate Sodium 100 MG CAPSULE 200 MG PO (21:06)
[2021-12-01] MEDS: traZODone HCL 50 MG TABLET PO (21:13)
[2021-12-01] MEDS: Prazosin HCL 1 MG CAPSULE PO (21:17)
[2021-12-01] MEDS: Atorvastatin Calcium 10 MG TABLET 5 MG PO (21:21)
[2021-12-02] MEDS: Omeprazole 20 MG CAPSULE.DR PO (07:07)
[2021-12-02 07:25] LABS: Glucose, Whole Blood 173 mg/dL (60-115)
[2021-12-02 08:00] VITALS: BP 126/77; PULSE 114; TEMP 36.2; O2SAT 99
[2021-12-02] MEDS: Losartan Potassium 25 MG TABLET PO (09:00)
[2021-12-02] MEDS: Cyanocobalamin (Vitamin B-12) 1,000 MCG TABLET 1000 MCG PO (09:00)
[2021-12-02] MEDS: Cholecalciferol (Vitamin D3) 10 MCG TABLET PO (09:01)
[2021-12-02] MEDS: Ferrous Sulfate 324 MG TABLET.DR PO (09:01)
[2021-12-02] MEDS: Ascorbic Acid 500 MG TABLET 1000 MG PO (09:01)
[2021-12-02] MEDS: LORazepam 1 MG TABLET PO ×2 (09:01→20:50)
[2021-12-02] MEDS: cloNIDine HCL 0.1 MG TABLET PO ×2 (09:01→20:54)
[2021-12-02] MEDS: Multivitamin TABLET 1 TAB PO (09:01)
[2021-12-02] MEDS: cloZAPine 100 MG TABLET 150 MG PO ×2 (09:01→20:49)
[2021-12-02] MEDS: metFORMIN HCl 1,000 MG TABLET 1000 MG PO ×2 (09:46→20:49)
--- NOTE | 2021-12-02 12:26 | P.PNPSI_ITS ---
Subjective Subjective Date of Service: 12/02/21 Reason For Visit: Depression paranoia Subjective Notes: Conditional Voluntary Interim History: Sabra speech is more fluent. She reports it comes and goes ideas of being in trouble or not. She denies SI/HI. She denies VH/AH. Pt has been more visible in the unit, she reports easier to write things down, gait less unsteady. She is looking for discharge meeting tomorrow. No behavioral concerns. Medication Compliance: Yes Side effects from medications: No Review of Systems Review of Systems Most of the problems were psychiatric in nature. There was no recent cold or flu-like illness headache or change in bowel bladder pattern Yes all other systems are reviewed and are negative and Unobtainable due to mental status Reports behavioral changes, Reports confusion and Reports memory loss Psychiatric: Reports abnormal sleep pattern (pt reports due to new room-mate), Reports anxiety, Reports behavioral changes, Reports confusion, Reports depression, Reports difficulty concentrating, Reports auditory hallucinations (denies), Reports hopelessness, Reports anhedonia, Reports memory loss, Reports mood swings, Reports paranoia, Reports hallucinations, Reports homicidal ideation (denies), Reports suicidal ideation (denies) and Reports other (wanting to go home) Mental Status Exam Mental Status Exam Narrative: Patient Appearance:?Appropriate Patient Orientation:?Person, Place, Time and Situation Level of Consciousness:?Alert Patient Behavior:?quiet, but polite Mood Description:? ok Affect Description:?warmer, more engaged Patient Cognition Impaired:?No Ability to Follow Directions:?Good Speech Pattern:?Spontaneous Speech Memory Description:?Episodic Impaired Hallucinations:?None Delusions:?Not Present Thought Process:?Distracted Thought Content:no SI/HI; ?positive for [place] and positive for Slowed Thinking Judgement:?Fair Diagnostics Vital Signs (24Hr): Vital Signs - 24 hr 12/01/21 18:00 12/02/21 08:00 Temperature 97.8 F 97.1 F Pulse Rate 122 H 114 H Respiratory Rate 16 Blood Pressure 117/78 126/77 Pulse Oximetry 98 99 BMI result Body Mass Index 31.3 Labs Results: 11/26/21 07:30 11/26/21 07:30 Labs: Laboratory Results - last 48 hr 12/01/21 12/02/21 08:30 07:10 POC Glucose 173 H 173 H Imaging Radiology Impressions: ITS Impressions Brain MRI 11/20/21 13:00 IMPRESSION: 1. No acute intracranial abnormalities. 2. Mild underlying microangiopathy and generalized cerebral volume loss. Medications Medications Current Medications Acetaminophen (Acetaminophen 325 Mg Tablet) 650 mg PO Q6H PRN PRN Reason: Headache/Pain Mild Scale (1-3) Last Admin: 11/22/21 08:44 Dose: 650 mg Documented by: Al Hydroxide/Mg Hydroxide (Magnesium Hydrox/Alum Hydrox 30 Ml Oral.Susp) 30 ml PO Q6H PRN PRN Reason: Heartburn/Nausea Last Admin: 10/02/21 14:41 Dose: 30 ml Documented by: Ascorbic Acid (Ascorbic Acid 500 Mg Tablet) 1,000 mg PO DAILY [facility] Last Admin: 12/02/21 09:01 Dose: 1,000 mg Documented by: Atorvastatin Calcium (Atorvastatin Calcium 10 Mg Tablet) 5 mg PO BEDTIME [facility] Last Admin: 12/01/21 21:21 Dose: 5 mg Documented by: Clonidine HCl (Clonidine Hcl 0.1 Mg Tablet) 0.1 mg PO BID [facility]; Protocol Last Admin: 12/02/21 09:01 Dose: 0.1 mg Documented by: Clozapine (Clozapine 100 Mg Tablet) 150 mg PO BID [facility] Last Admin: 12/02/21 09:01 Dose: 150 mg Documented by: Cyanocobalamin (Cyanocobalamin (Vitamin B-12) 1,000 Mcg Tablet) 1,000 mcg PO DAILY [facility] Last Admin: 12/02/21 09:00 Dose: 1,000 mcg Documented by: Docusate Sodium (Docusate Sodium 100 Mg Capsule) 200 mg PO BEDTIME [facility] Last Admin: 12/01/21 21:06 Dose: 200 mg Documented by: Enoxaparin Sodium (Enoxaparin Sodium 40 Mg/0.4 Ml Syringe) 40 mg SUBCUT Q24H [facility] Last Admin: 12/02/21 13:32 Dose: 40 mg Documented by: Ferrous Sulfate (Ferrous Sulfate 324 Mg Tablet.) 324 mg PO DAILY [facility] Last Admin: 12/02/21 09:01 Dose: 324 mg Documented by: Hydroxyzine HCl (Hydroxyzine Hcl 25 Mg Tablet) 25 mg PO BEDTIME PRN PRN Reason: Anxiety Last Admin: 10/31/21 02:30 Dose: 25 mg Documented by: Lorazepam (Lorazepam 1 Mg Tablet) 1 mg PO BID [facility] Last Admin: 12/02/21 09:01 Dose: 1 mg Documented by: Losartan Potassium (Losartan Potassium 25 Mg Tablet) 25 mg PO DAILY [facility]; Protocol Last Admin: 12/02/21 09:00 Dose: 25 mg Documented by: Lurasidone HCl (Lurasidone Hcl 20 Mg Tablet) 60 mg PO 1800 [facility] Last Admin: 12/01/21 19:08 Dose: 60 mg Documented by: Magnesium Hydroxide (Milk Of Magnesia 30 Ml Oral.Susp) 30 ml PO DAILY PRN PRN Reason: Constipation Metformin HCl (Metformin Hcl 1,000 Mg Tablet) 1,000 mg PO BID [facility] Last Admin: 12/02/21 09:46 Dose: 1,000 mg Documented by: Multivitamins/Vitamin C (Multivitamin Tablet) 1 tab PO DAILY [facility] Last Admin: 12/02/21 09:01 Dose: 1 tab Documented by: Neomycin/Polymyxin/Bacitracin (Neomy/Polymyx/Bacit/Ointment 14 Gm Tube) 1 gm TOPICAL BID [facility]; Protocol Last Admin: 12/02/21 09:47 Dose: Not Given Documented by: Non-Formulary Medication (Cinnamon) 1,000 mg PO DAILY [facility] Last Admin: 12/02/21 09:02 Dose: 1,000 mg Documented by: Patient Own Medication ( Empagliflozin 10 Mg) 1 each PO DAILY [facility] Last Admin: 12/02/21 08:59 Dose: 1 each Documented by: Patient Own Medication (Dwayne Red Softgels) 1 each PO DAILY [facility] Last Admin: 12/02/21 08:58 Dose: 1 each Documented by: Omeprazole (Omeprazole 20 Mg Capsule.) 20 mg PO DAILY@0630 [facility] Last Admin: 12/02/21 07:07 Dose: 20 mg Documented by: Ondansetron HCl (Ondansetron Odt 8 Mg Tab.Rapdis) 8 mg TRANSLINGU Q8H PRN PRN Reason: nausea Polyethylene Glycol (Polyethylene Glycol 3350 17 Gm Powd.Pack) 17 gm PO DAILY PRN PRN Reason: Constipation Last Admin: 11/06/21 12:24 Dose: 17 gm Documented by: Prazosin HCl (Prazosin Hcl 1 Mg Capsule) 1 mg PO BEDTIME PRN; Protocol PRN Reason: nightmares Last Admin: 12/01/21 21:17 Dose: 1 mg Documented by: Trazodone HCl (Trazodone Hcl 50 Mg Tablet) 50 mg PO BEDTIME PRN PRN Reason: Insomnia Last Admin: 12/01/21 21:13 Dose: 50 mg Documented by: Vitamin D (Cholecalciferol (Vitamin D3) 10 Mcg Tablet) 10 mcg PO DAILY MYRTLE Last Admin: 12/02/21 09:01 Dose: 10 mcg Documented by: Allergies Allergies Allergy/AdvReac Type Severity Reaction Status Date / Time lisinopril [LISINOPRIL] Allergy Unknown SWOLLEN Verified 09/17/21 08:42 LIPS, angioedema, swelling Assessment & Plan Assessment & Plan (1) Schizoaffective disorder: Status: Acute Code(s): F25.9 - Schizoaffective disorder, unspecified (2) Facial weakness: Status: Acute Code(s): R29.810 - Facial weakness (3) Encephalopathy: Status: Acute Code(s): G93.40 - Encephalopathy, unspecified Plan 50 yo female, hx of schizoaffective disorder, depressed with R breast cancer, having just completed first cycle of chemotherapy. Pt's partner and sister report to crisis team that pt has had a significant mental status change with psychotic symptoms, paranoia, perceptual alterations, poor sleep and significant thought blocking. Pt denies SI, HI. Today she is a very poor historian-almost pre-catatonic at times, considering signing a three day notice of intent. Team report by history she may not be comfortable in this facility. Assessment plan for 09/21/2021 Continue current medical treatment elevated white blood count noted over the past month question related to cancer treatment.? No evidence of infection Patient depressed withdrawn preoccupied patient with recent treatment for ductal carcinoma stress of this might certainly lead to depressive almost catatonic episode 09/22/21 Pt with thought blocking improved from yeterday have restarted wellbutin hosp did not have sr cont clozapine evaluate baseline denies self harm oob more 09/23/21 Continue current plan of care. Collateral contacts with OP team, oncology. 09/24/21 Increase Abilify to 30 mg daily Pt currently refusing Lorazepam TDN expires 09/25/21-will file for civil commitment if pt persists in wanting discharge 09/25/21 Civil commitment filing completed Continue current regime. 09/26/21 Continue current regime 09/27/32 Decrease Abilify to 20 mg daily Risperdal 1.5 mg HS 09/28/21 Continue plan as above 09/29/21 No changes 09/30/21 Court 10/01/21 Chemotherapy 10/01/21 Increase Risperdal to 2.5 mg HS Decrease Abilify to 10 mg daily 10/02/21 Tolerating change back to Abilify from Risperdal Appetite is improved. Calmer, more visable, however continues with paranoia Jardiance ordered from [facility] 10/03/21 Increase Abilify to 30 mg daily Will pursue validation of pt's HCP for continued chemotherapy Tentative chemotherapy 10/09. 10/04/21 Continue current regime 10/05 no changes to current regimen 10/06 no changes to current regimen 10/07/21 No positive effect from increase in Abilify Increase Clozaril to 100 mg bid, an increase of 50 mg daily, divided. Chemotherapy 10/09/21, Labs 10/08/21. 10/08/21 Tolerating Clozaril increase thus far Dexamethasone 4 mg hs and 4 mg a.m. pre chemo per Dr. Mora Support, encourage 10/09/21 Continue current plan of care 10/10/21 Continue current plan of care 10/11/21 Continue current plan. Will re-eval for Clozaril increase next week. 10/12/2021: Continue current regimen and plans.? No changes were made today 10/13/2021: Continue current plans and regimen. 10/14/21: Increase Clozaril to 125 mg bid ? EKG, CBCD, CMP 10/15 prior to chemotherapy 10/15/21: Continue current plan of care 10/16/21: Continue current plan. Tolerating Clozaril increase 10/17/21: Continue current regime. 10/18/21: Increase Clozaril to 150 mg bid ? Decrease Abilify to 20 mg daily ? ECT Consult 10/19/21: continue meds unchanged 10/20/21: pt continue to present as paranoid, withdrawn 10/21/21: Continue current regime. Labs/EKG 10/22. Some improvement today. 10/22/21: Labs/EKG WNL ? Meeting 10/24 with health care proxy's to discuss clozaril discontinuation ? ECT Consult 10/24/21: Continue current plan. 10/25/21: Continue current plan. 10/26: ECT may be indicated. Change Ativan to standing dose. 10/27 Increase Ativan to 1 mg TID and watch for sedation 10/28/21: CBCD, CMP, EKG 10/29/21 in preparation for chemotherapy ? Await Clozapine level results. 10/29/21: ECT consult 10/30 ? Chemotherapy 10/30 ? Await Clozapine level results. ? Tentative plan to taper Abilify, titrate Latuda. ? Family/HCP in agreement. Pt agrees as well. 10/30/21: Decrease Abilify to 10 mg daily to prepare to begin Latuda 10/31/21: Continue current plan. 11/01/21: Discontinue Abilify ? Latuda 20 mg 1800 11/02/21:? Continue current treatment plan 11/03/21:? Continue current treatment plan 11/04/21: Tolerating Latuda. Pt asks not to titrate yet. Some improvement noted. 11/05/21: Chemotherapy 11/06. Ready to titrate Latuda-family will discuss with pt. Thus far, a positive result, without adverse effect. ? EKG reading pending ? Sister will not be taking pt to chemotherapy on 11/06 as her son has tested positive for COVID this afternoon. Partner Kailey will accompany pt. along with team. 11/06/21: Increase Latuda to 40 mg daily after evening meal. ? Increase Colace to 200 mg hs ? Miralax prn ? Per nursing report, pt will no longer need steroid dosing on Tuesdays before chemotherapy, but will receive dosing on Wednesdays in the chemotherapy dept. 11/07/21: Continue current plan. 11/08/21: Change Lorazepam prn to 1 mg bid 11/09/21: Tolerating Lorazepam. Continue plan of care. 11/10/21: Considering Latuda increase. 11/11/21: Increase Latuda to 60 mg daily. Labs pre chemotherapy. 11/12/21: Continue current plan. Care discussed with HCP Kailey- review of Ativan dosing, therapeutic Latuda dosing,pt's not understanding that her thought blocking, paranoia, belief that she will go to care home are target sx for medication increase. 11/14/21: Continue current plan. Discharge planning with consistent improvement. 11/15/21: continue current medications per primary treatment team. 11/16/2021 Patient seen in psychiatric follow-up patient depressed withdrawn hopeless helpless despondent again discussed option of ECT 11/17/2021 Patient's case reviewed with nursing staff.? Patient seen.? Patient somewhat with cardoso affect today less withdrawn able to engage in discussion regarding Latuda and possibility of ECT treatment.? Continue clozapine Latuda 11/18- discussed with significant other possibility of: underlying paraneoplastic syndrome related to breast carcinona- mainly 4 antibodies have been related to this type of cancer ([employer]-2, Anti-yo (RAIL SIGNAL WORKER-1); Anti-RI (corona-2); and antiamphiphysin) mostly causing cerebellar disfunction including opsoclonus (and myoclonus) which pt appears to have along with other cognitive and psychiatric symptoms. Will order MRI- r/o encephalitis related to chemo or any limbic/cerebellar pathology. Sent message to oncologist. Pt does psychiatric condition appears to significantly improved with dexamethaxone. Also if classic paraneoplastic, which is the one mostly related to cancer tumors,? serum antibodies testing may suffice (without CSF testing).? 11/19 continue current medications- pending mri, paraneoplastic panel. 11/20- continue current medications, pending discussion with oncology re: paraneoplastic syndome, pending MRI 11/21 will d/c wellbutrin as it can worsen psychosis. continue all other meds. MRI shows microvascular changes and atrophy- moca at this time wouldn't be accurate given prominent psych symptoms. 11/22 continue current medications. 11/23 continue tx plan. 11/24 continue tx plan 11/25/21-Continue current plan 11/26/21-Chemotherapy 11/27/21. Continue current plan 11/27/21- Continue current regime. Pt reports feeling tired after her treatment t eddie. Labs pending. Pt discussing wanting to go home. 11/28- continue current tx. 11/29/21- Continue current plan of care. 11/30 continue current treatment plan 12/01 continue current treatment plan; patient brighter and more engaging then before 12/02 continue current medications. I spent minutes with the patient and/or on the patient floor today, greater than?50% of which was spent counseling/coordinating care. Reason for contiued inpatient stay Substantial Risk for: inability to function
[2021-12-02] MEDS: Enoxaparin Sodium 40 MG/0.4 ML SYRINGE SUBCUT (13:32)
[2021-12-02 18:00] VITALS: BP 122/66; PULSE 109; RESP 14; TEMP 36.3
[2021-12-02] MEDS: Lurasidone HCl 20 MG TABLET 60 MG PO (19:05)
[2021-12-02] MEDS: Atorvastatin Calcium 10 MG TABLET 5 MG PO (20:50)
[2021-12-02] MEDS: traZODone HCL 50 MG TABLET PO (20:50)
[2021-12-02] MEDS: Docusate Sodium 100 MG CAPSULE 200 MG PO (20:51)
[2021-12-02] MEDS: Prazosin HCL 1 MG CAPSULE PO (20:51)
--- NOTE | 2021-12-03 | ECG_ITS ---
Test Reason : pre chemo Blood Pressure : / mmHG Vent. Rate : 101 BPM Atrial Rate : 101 BPM P-R Int : 138 ms QRS Dur : 074 ms QT Int : 308 ms P-R-T Axes : 067 062 008 degrees QTc Int : 399 ms Sinus tachycardia Nonspecific T wave abnormality Abnormal ECG When compared with ECG of 26-NOV-2021 10:04, No significant change was found Referred By: Marci Jones Electronically Signed By:CECI MOLINA MD
[2021-12-03] MEDS: Omeprazole 20 MG CAPSULE.DR PO (06:23)
[2021-12-03 06:48] LABS: Glucose, Whole Blood 141 mg/dL (60-115)
[2021-12-03] MEDS: metFORMIN HCl 1,000 MG TABLET 1000 MG PO ×2 (08:23→21:25)
[2021-12-03] MEDS: Cholecalciferol (Vitamin D3) 10 MCG TABLET PO (08:23)
[2021-12-03] MEDS: cloZAPine 100 MG TABLET 150 MG PO ×2 (08:23→21:26)
[2021-12-03] MEDS: cloNIDine HCL 0.1 MG TABLET PO ×2 (08:23→21:25)
[2021-12-03] MEDS: Ascorbic Acid 500 MG TABLET 1000 MG PO (08:23)
[2021-12-03] MEDS: Losartan Potassium 25 MG TABLET PO (08:23)
[2021-12-03] MEDS: Ferrous Sulfate 324 MG TABLET.DR PO (08:24)
[2021-12-03] MEDS: Cyanocobalamin (Vitamin B-12) 1,000 MCG TABLET 1000 MCG PO (08:24)
[2021-12-03] MEDS: LORazepam 1 MG TABLET PO ×2 (08:24→21:25)
[2021-12-03] MEDS: Multivitamin TABLET 1 TAB PO (08:24)
[2021-12-03 08:28] VITALS: BP 107/81; PULSE 117; RESP 16; TEMP 36.3; O2SAT 97
[2021-12-03 09:01] LABS: MANUAL DIFF FLAG NO
[2021-12-03 09:03] LABS: Basophils Percent Auto 0.3 % (0-2); Eosinophils Percent Auto 0.1 % (0-4); Hematocrit 37.1 % (37.0-47.0); Hemoglobin 12.3 g/dl (12.0-16.0); Imm Gran Abs Auto 0.06 X10*3/uL (0.00-0.03); Imm Gran Pct Auto 0.8 % (0.0-0.4); Lymphocytes Absolute Auto 1.8 X10*3/uL (1.2-4.9); Lymphocytes Percent Auto 23.8 % (20-40); Mean Corpuscular HGB Conc 33.2 g/dl (31.0-35.0); Mean Corpuscular Hemoglobin 31.8 pg (27.0-33.0); Mean Corpuscular Volume 95.9 fL (80.0-98.0); Mean Platelet Volume 10.5 fL (9.4-12.3); Monocytes Absolute Auto 0.4 X10*3/uL (0.1-1.2); Monocytes Percent Auto 5.3 % (2-11); Neut%MD 69.7 %; Neutrophils Absolute Auto 5.2 x10*3/uL (2.0-8.3); Neutrophils Percent Auto 69.7 % (45-73); Platelet Count 373 X10*3/uL (160-400); Red Blood Count 3.87 X10*6/uL (4.20-5.50); Red Cell Distribution Width 16.8 % (11.0-16.0); WBCANC 7.5 X10*3/uL; White Blood Count 7.5 X10*3/uL (4.8-10.8)
[2021-12-03 09:49] LABS: Alanine Aminotransferase 28 U/L (0-31); Albumin Level 4.2 g/dL (3.5-5.0); Alkaline Phosphatase 106 U/L (39-117); Anion Gap 17 (12-20); Aspartate Amino Transferase 17 U/L (5-31); Bilirubin Total 0.6 mg/dL (0.0-1.0); Blood Urea Nitrogen 14 mg/dL (9-16); Calcium 9.9 mg/dL (8.4-10.2); Carbon Dioxide 21 mmol/L (22-29); Chloride 107 mmol/L (96-108); Creatinine Clr Calc Pharmacy 90.2; Estimated Glomerular Filt Rate > 60; Glucose Random 160 mg/dL (60-115); Potassium 4.3 mmol/L (3.3-5.1); Sodium 141 mmol/L (135-145)
[2021-12-03] MEDS: Enoxaparin Sodium 40 MG/0.4 ML SYRINGE SUBCUT (11:59)
[2021-12-03] MEDS: Lurasidone HCl 80 MG TABLET PO (18:34)
--- NOTE | 2021-12-03 19:21 | P.PNPSI_ITS ---
Subjective Subjective Date of Service: 12/03/21 Reason For Visit: Depression paranoia Subjective Notes: Section 8 Healthcare Proxy: Yes Guardianship: No Medical Problems Affecting Mental Status: No Interim History: Family meeting with pt, partner, sister, Loretta Duffy METAL STORAGE WORKER and tw. to dis cuss discharge planning. Paraneoplastic syndrome workup initiated by Leslee Diaz [employer] POND [employer]ORER is pending. Team expects results back 12/08/21. Pt reports feeling nervous about being on her own. She asked to confirm that she will go straight home from hospital, does not need an banking consultant and is not in any type of trouble. She had carefully written a list to review in the meeting. Hopes to have a clearer mind upon discharge. Reports she feels 50% clearer. Discussed referral to [facility] (application is in) and [facility] along with adult community clinical services. Believes [facility], twice per week, with locked box for medications is appropriate. Also looking for a new therapist/psychiatrist and neurology follow up appt. Family discussed with pt their observations about her sx. They encouraged pt to continue with Latuda titration to mange depressive/anxious sx. She agreed to increase to 80 mg beginning this evening. Medication Compliance: Yes Side effects from medications: No Attending Groups: Yes Review of Systems Acute medical concerns: No Chemotherapy 12/04 Medical Review of Systems: unchanged Review of Systems Psychiatric: Reports abnormal sleep pattern, Reports anxiety, Reports depression and Reports difficulty concentrating Mental Status Exam Mental Status Exam Patient Appearance: Appropriate Patient Orientation: Person, Place, Time and Situation Level of Consciousness: Awake and Alert Patient Behavior: Appropriate, Talkative, Cooperative and Good Eye Contact Mood Description: Flat Affect Description: Flat Patient Cognition Impaired: No Ability to Follow Directions: Good Speech Pattern: Spontaneous Speech, Soft-Spoken and Delayed Memory Description: Episodic Impaired Hallucinations: None Delusions: Paranoid Ideation Perceptual Disturbances: Depersonalization and Derealization Thought Process: Rumination Thought Content: positive for Circumstantial and positive for Perseveration Depressive Symptoms: Difficulty Concentrating Judgement: Fair Diagnostics Vital Signs (24Hr): Vital Signs - 24 hr 12/03/21 08:28 Temperature 97.3 F Pulse Rate 117 H Respiratory Rate 16 Blood Pressure 107/81 Pulse Oximetry 97 BMI result Body Mass Index 31.3 Labs Results: 12/03/21 08:34 12/03/21 08:34 Labs: Laboratory Results - last 48 hr 12/02/21 12/03/21 12/03/21 07:10 06:27 08:34 WBC RBC Hgb Hct MCV MCH MCHC RDW Plt Count MPV Immature Gran % (Auto) Neut % (Auto) Lymph % (Auto) [place] % (Auto) Eos % (Auto) Baso % (Auto) Lymph # (Auto) [place] # (Auto) Eos # (Auto) Baso # (Auto) Abs Immat Gran (auto) Absolute Neuts (auto) Absolute Nucleated RBC Nucleated RBC % (auto) Sodium 141 Potassium 4.3 Chloride 107 Carbon Dioxide 21 L Anion Gap 17 BUN 14 Creatinine 0.72 Estim Creat Clear Calc 90.2 Estimated GFR > 60 POC Glucose 173 H 141 H Random Glucose 160 H Calcium 9.9 Total Bilirubin 0.6 AST 17 ALT 28 Alkaline Phosphatase 106 Total Protein 7.0 Albumin 4.2 12/03/21 08:34 WBC 7.5 RBC 3.87 L Hgb 12.3 Hct 37.1 MCV 95.9 MCH 31.8 MCHC 33.2 RDW 16.8 H Plt Count 373 MPV 10.5 Immature Gran % (Auto) 0.8 H Neut % (Auto) 69.7 Lymph % (Auto) 23.8 [place] % (Auto) 5.3 Eos % (Auto) 0.1 Baso % (Auto) 0.3 Lymph # (Auto) 1.8 [place] # (Auto) 0.4 Eos # (Auto) 0.0 Baso # (Auto) 0.0 Abs Immat Gran (auto) 0.06 H Absolute Neuts (auto) 5.2 Absolute Nucleated RBC 0.000 Nucleated RBC % (auto) 0.0 Sodium Potassium Chloride Carbon Dioxide Anion Gap BUN Creatinine Estim Creat Clear Calc Estimated GFR POC Glucose Random Glucose Calcium Total Bilirubin AST ALT Alkaline Phosphatase Total Protein Albumin Imaging Radiology Impressions: ITS Impressions Brain MRI 11/20/21 13:00 IMPRESSION: 1. No acute intracranial abnormalities. 2. Mild underlying microangiopathy and generalized cerebral volume loss. Medications Medications Current Medications Acetaminophen (Acetaminophen 325 Mg Tablet) 650 mg PO Q6H PRN PRN Reason: Headache/Pain Mild Scale (1-3) Last Admin: 11/22/21 08:44 Dose: 650 mg Documented by: Al Hydroxide/Mg Hydroxide (Magnesium Hydrox/Alum Hydrox 30 Ml Oral.Susp) 30 ml PO Q6H PRN PRN Reason: Heartburn/Nausea Last Admin: 10/02/21 14:41 Dose: 30 ml Documented by: Ascorbic Acid (Ascorbic Acid 500 Mg Tablet) 1,000 mg PO DAILY [facility] Last Admin: 12/03/21 08:23 Dose: 1,000 mg Documented by: Atorvastatin Calcium (Atorvastatin Calcium 10 Mg Tablet) 5 mg PO BEDTIME [facility] Last Admin: 12/02/21 20:50 Dose: 5 mg Documented by: Clonidine HCl (Clonidine Hcl 0.1 Mg Tablet) 0.1 mg PO BID [facility]; Protocol Last Admin: 12/03/21 08:23 Dose: 0.1 mg Documented by: Clozapine (Clozapine 100 Mg Tablet) 150 mg PO BID [facility] Last Admin: 12/03/21 08:23 Dose: 150 mg Documented by: Cyanocobalamin (Cyanocobalamin (Vitamin B-12) 1,000 Mcg Tablet) 1,000 mcg PO DAILY [facility] Last Admin: 12/03/21 08:24 Dose: 1,000 mcg Documented by: Docusate Sodium (Docusate Sodium 100 Mg Capsule) 200 mg PO BEDTIME [facility] Last Admin: 12/02/21 20:51 Dose: 200 mg Documented by: Enoxaparin Sodium (Enoxaparin Sodium 40 Mg/0.4 Ml Syringe) 40 mg SUBCUT Q24H [facility] Last Admin: 12/03/21 11:59 Dose: 40 mg Documented by: Ferrous Sulfate (Ferrous Sulfate 324 Mg Tablet.Dr) 324 mg PO DAILY [facility] Last Admin: 12/03/21 08:24 Dose: 324 mg Documented by: Hydroxyzine HCl (Hydroxyzine Hcl 25 Mg Tablet) 25 mg PO BEDTIME PRN PRN Reason: Anxiety Last Admin: 10/31/21 02:30 Dose: 25 mg Documented by: Lorazepam (Lorazepam 1 Mg Tablet) 1 mg PO BID [facility] Last Admin: 12/03/21 08:24 Dose: 1 mg Documented by: Losartan Potassium (Losartan Potassium 25 Mg Tablet) 25 mg PO DAILY [facility]; Protocol Last Admin: 12/03/21 08:23 Dose: 25 mg Documented by: Lurasidone HCl (Lurasidone Hcl 80 Mg Tablet) 80 mg PO 1800 [facility] Last Admin: 12/03/21 18:34 Dose: 80 mg Documented by: Magnesium Hydroxide (Milk Of Magnesia 30 Ml Oral.Susp) 30 ml PO DAILY PRN PRN Reason: Constipation Metformin HCl (Metformin Hcl 1,000 Mg Tablet) 1,000 mg PO BID [facility] Last Admin: 12/03/21 08:23 Dose: 1,000 mg Documented by: Multivitamins/Vitamin C (Multivitamin Tablet) 1 tab PO DAILY [facility] Last Admin: 12/03/21 08:24 Dose: 1 tab Documented by: Neomycin/Polymyxin/Bacitracin (Neomy/Polymyx/Bacit/Ointment 14 Gm Tube) 1 gm TOPICAL BID [facility]; Protocol Last Admin: 12/03/21 08:42 Dose: Not Given Documented by: Non-Formulary Medication (Cinnamon) 1,000 mg PO DAILY [facility] Last Admin: 12/03/21 08:23 Dose: 1,000 mg Documented by: Patient Own Medication ( Empagliflozin 10 Mg) 1 each PO DAILY [facility] Last Admin: 12/03/21 08:23 Dose: 1 each Documented by: Patient Own Medication (Dwayne Red Softgels) 1 each PO DAILY [facility] Last Admin: 12/03/21 08:23 Dose: 1 each Documented by: Omeprazole (Omeprazole 20 Mg Capsule.Dr) 20 mg PO DAILY@0630 [facility] Last Admin: 12/03/21 06:23 Dose: 20 mg Documented by: Ondansetron HCl (Ondansetron Odt 8 Mg Tab.Rapdis) 8 mg TRANSLINGU Q8H PRN PRN Reason: nausea Polyethylene Glycol (Polyethylene Glycol 3350 17 Gm Powd.Pack) 17 gm PO DAILY PRN PRN Reason: Constipation Last Admin: 11/06/21 12:24 Dose: 17 gm Documented by: Prazosin HCl (Prazosin Hcl 1 Mg Capsule) 1 mg PO BEDTIME PRN; Protocol PRN Reason: nightmares Last Admin: 12/02/21 20:51 Dose: 1 mg Documented by: Trazodone HCl (Trazodone Hcl 50 Mg Tablet) 50 mg PO BEDTIME PRN PRN Reason: Insomnia Last Admin: 12/02/21 20:50 Dose: 50 mg Documented by: Vitamin D (Cholecalciferol (Vitamin D3) 10 Mcg Tablet) 10 mcg PO DAILY [facility] Last Admin: 12/03/21 08:23 Dose: 10 mcg Documented by: Allergies Allergies Allergy/AdvReac Type Severity Reaction Status Date / Time lisinopril [LISINOPRIL] Allergy Unknown SWOLLEN Verified 09/17/21 08:42 LIPS, angioedema, swelling Assessment & Plan Assessment & Plan (1) Schizoaffective disorder: Status: Acute Code(s): F25.9 - Schizoaffective disorder, unspecified (2) Facial weakness: Status: Acute Code(s): R29.810 - Facial weakness (3) Encephalopathy: Status: Acute Code(s): G93.40 - Encephalopathy, unspecified Plan 50 yo female, hx of schizoaffective disorder, depressed with R breast cancer, having just completed first cycle of chemotherapy. Pt's partner and sister report to crisis team that pt has had a significant mental status change with psychotic symptoms, paranoia, perceptual alterations, poor sleep and significant thought blocking. Pt denies SI, HI. Today she is a very poor historian-almost pre-catatonic at times, considering signing a three day notice of intent. Team report by history she may not be comfortable in this facility. Assessment plan for 09/21/2021 Continue current medical treatment elevated white blood count noted over the past month question related to cancer treatment.? No evidence of infection Patient depressed withdrawn preoccupied patient with recent treatment for ductal carcinoma stress of this might certainly lead to depressive almost catatonic episode 09/22/21 Pt with thought blocking improved from yeterday have restarted wellbutin hosp did not have sr cont clozapine evaluate baseline denies self harm oob more 09/23/21 Continue current plan of care. Collateral contacts with OP team, oncology. 09/24/21 Increase Abilify to 30 mg daily Pt currently refusing Lorazepam TDN expires 09/25/21-will file for civil commitment if pt persists in wanting discharge 09/25/21 Civil commitment filing completed Continue current regime. 09/26/21 Continue current regime 09/27/32 Decrease Abilify to 20 mg daily Risperdal 1.5 mg HS 09/28/21 Continue plan as above 09/29/21 No changes 09/30/21 Court 10/01/21 Chemotherapy 10/01/21 Increase Risperdal to 2.5 mg HS Decrease Abilify to 10 mg daily 10/02/21 Tolerating change back to Abilify from Risperdal Appetite is improved. Calmer, more visable, however continues with paranoia Jardiance ordered from [facility] 10/03/21 Increase Abilify to 30 mg daily Will pursue validation of pt's HCP for continued chemotherapy Tentative chemotherapy 10/09. 10/04/21 Continue current regime 10/05 no changes to current regimen 10/06 no changes to current regimen 10/07/21 No positive effect from increase in Abilify Increase Clozaril to 100 mg bid, an increase of 50 mg daily, divided. Chemotherapy 10/09/21, Labs 10/08/21. 10/08/21 Tolerating Clozaril increase thus far Dexamethasone 4 mg hs and 4 mg a.m. pre chemo per Dr. Mora Support, encourage 10/09/21 Continue current plan of care 10/10/21 Continue current plan of care 10/11/21 Continue current plan. Will re-eval for Clozaril increase next week. 10/12/2021: Continue current regimen and plans.? No changes were made today 10/13/2021: Continue current plans and regimen. 10/14/21: Increase Clozaril to 125 mg bid ? EKG, CBCD, CMP 10/15 prior to chemotherapy 10/15/21: Continue current plan of care 10/16/21: Continue current plan. Tolerating Clozaril increase 10/17/21: Continue current regime. 10/18/21: Increase Clozaril to 150 mg bid ? Decrease Abilify to 20 mg daily ? ECT Consult 10/19/21: continue meds unchanged 10/20/21: pt continue to present as paranoid, withdrawn 10/21/21: Continue current regime. Labs/EKG 10/22. Some improvement today. 10/22/21: Labs/EKG WNL ? Meeting 10/24 with health care proxy's to discuss clozaril discontinuation ? ECT Consult 10/24/21: Continue current plan. 10/25/21: Continue current plan. 10/26: ECT may be indicated. Change Ativan to standing dose. 10/27 Increase Ativan to 1 mg TID and watch for sedation 10/28/21: CBCD, CMP, EKG 10/29/21 in preparation for chemotherapy ? Await Clozapine level results. 10/29/21: ECT consult 10/30 ? Chemotherapy 10/30 ? Await Clozapine level results. ? Tentative plan to taper Abilify, titrate Latuda. ? Family/HCP in agreement. Pt agrees as well. 10/30/21: Decrease Abilify to 10 mg daily to prepare to begin Latuda 10/31/21: Continue current plan. 11/01/21: Discontinue Abilify ? Latuda 20 mg 1800 11/02/21:? Continue current treatment plan 11/03/21:? Continue current treatment plan 11/04/21: Tolerating Latuda. Pt asks not to titrate yet. Some improvement noted. 11/05/21: Chemotherapy 11/06. Ready to titrate Latuda-family will discuss with pt. Thus far, a positive result, without adverse effect. ? EKG reading pending ? Sister will not be taking pt to chemotherapy on 11/06 as her son has tested positive for COVID this afternoon. Partner Kailey will accompany pt. along with team. 11/06/21: Increase Latuda to 40 mg daily after evening meal. ? Increase Colace to 200 mg hs ? Miralax prn ? Per nursing report, pt will no longer need steroid dosing on Tuesdays before chemotherapy, but will receive dosing on Wednesdays in the chemotherapy dept. 11/07/21: Continue current plan. 11/08/21: Change Lorazepam prn to 1 mg bid 11/09/21: Tolerating Lorazepam. Continue plan of care. 11/10/21: Considering Latuda increase. 11/11/21: Increase Latuda to 60 mg daily. Labs pre chemotherapy. 11/12/21: Continue current plan. Care discussed with HCP Kailey- review of Ativan dosing, therapeutic Latuda dosing,pt's not understanding that her thought blocking, paranoia, belief that she will go to halfway are target sx for medication increase. 11/14/21: Continue current plan. Discharge planning with consistent improvement. 11/15/21: continue current medications per primary treatment team. 11/16/2021 Patient seen in psychiatric follow-up patient depressed withdrawn hopeless helpless despondent again discussed option of ECT 11/17/2021 Patient's case reviewed with nursing staff.? Patient seen.? Patient somewhat with cardoso affect today less withdrawn able to engage in discussion regarding Latuda and possibility of ECT treatment.? Continue clozapine Latuda 11/18- discussed with significant other possibility of: underlying paraneoplastic syndrome related to breast carcinona- mainly 4 antibodies have been related to this type of cancer ([employer]SI[employer]HOU[employer]NAGER-2, Anti-yo (ASSISTANT WAREHOUSE MANAGER-1); Anti-RI (corona-2); and antiamphiphysin) mostly causing cerebellar disfunction including opsoclonus (and myoclonus) which pt appears to have along with other cognitive and psychiatric symptoms. Will order MRI- r/o encephalitis related to chemo or any limbic/cerebellar pathology. Sent message to oncologist. Pt does psychiatric condition appears to significantly improved with dexamethaxone. Also if classic paraneoplastic, which is the one mostly related to cancer tumors,? serum antibodies testing may suffice (without CSF testing).? 11/19 continue current medications- pending mri, paraneoplastic panel. 11/20- continue current medications, pending discussion with oncology re: p araneoplastic syndome, pending MRI 11/21 will d/c wellbutrin as it can worsen psychosis. continue all other meds. MRI shows microvascular changes and atrophy- moca at this time wouldn't be accurate given prominent psych symptoms. 11/22 continue current medications. 11/23 continue tx plan. 11/24 continue tx plan 11/25/21-Continue current plan 11/26/21-Chemotherapy 11/27/21. Continue current plan 11/27/21- Continue current regime. Pt reports feeling tired after her treatment today. Labs pending. Pt discussing wanting to go home. 11/28- continue current tx. 11/29/21- Continue current plan of care. 11/30 continue current treatment plan 12/01 continue current treatment plan; patient brighter and more engaging then before 12/02 continue current medications. 12/03/21-Increase Latuda to 80 mg daily Discharge planning per family meeting today. I spent minutes with the patient and/or on the patient floor today, greater than?50% of which was spent counseling/coordinating care. Patient educated on: therapeutic strategies Guardian/Caregiver educated on: therapeutic strategies Informed Consent: understands and further education needed Reason for contiued inpatient stay Substantial Risk for: med/psych decompensation
[2021-12-03 21:15] VITALS: BP 132/88; PULSE 101
[2021-12-03] MEDS: Atorvastatin Calcium 10 MG TABLET 5 MG PO (21:25)
[2021-12-03] MEDS: Docusate Sodium 100 MG CAPSULE 200 MG PO (21:25)
[2021-12-03] MEDS: traZODone HCL 50 MG TABLET PO (21:29)
[2021-12-04] MEDS: Omeprazole 20 MG CAPSULE.DR PO (06:28)
[2021-12-04 06:57] LABS: Glucose, Whole Blood 124 mg/dL (60-115)
[2021-12-04] MEDS: Ascorbic Acid 500 MG TABLET 1000 MG PO (08:05)
[2021-12-04] MEDS: cloZAPine 100 MG TABLET 150 MG PO ×2 (08:05→20:45)
[2021-12-04] MEDS: cloNIDine HCL 0.1 MG TABLET PO ×2 (08:05→20:48)
[2021-12-04] MEDS: LORazepam 1 MG TABLET PO ×2 (08:05→20:49)
[2021-12-04] MEDS: Cyanocobalamin (Vitamin B-12) 1,000 MCG TABLET 1000 MCG PO (08:05)
[2021-12-04] MEDS: metFORMIN HCl 1,000 MG TABLET 1000 MG PO ×2 (08:06→20:49)
[2021-12-04] MEDS: Losartan Potassium 25 MG TABLET PO (08:06)
[2021-12-04] MEDS: Cholecalciferol (Vitamin D3) 10 MCG TABLET PO (08:06)
[2021-12-04] MEDS: Ferrous Sulfate 324 MG TABLET.DR PO (08:06)
[2021-12-04] MEDS: Multivitamin TABLET 1 TAB PO (08:06)
[2021-12-04 08:12] VITALS: BP 119/85; PULSE 113; RESP 18; TEMP 36.3; O2SAT 97
[2021-12-04] MEDS: Enoxaparin Sodium 40 MG/0.4 ML SYRINGE SUBCUT (11:05)
--- NOTE | 2021-12-04 16:20 | P.PNPSI_ITS ---
Subjective Subjective Date of Service: 12/04/21 Reason For Visit: Depression paranoia Subjective Notes: Section 8 Healthcare Proxy: Yes Guardianship: No Medical Problems Affecting Mental Status: Yes (Chemotherapy) Interim History: Chemotherapy day. Met with Sabra later in the afternoon. Reviewed basic visual relaxation technique (we used a visual of her cat Aguilar). Discussed connection with anxiety, feeling overwhelmed and memory loss. Attempted to incorporate this simple exercise she can use at any time. Sabra took specific, accurate notes and asked to review them when completed. Medication Compliance: Yes Side effects from medications: No Attending Groups: Yes Review of Systems Acute medical concerns: No chemotherapy Medical Review of Systems: unchanged Review of Systems Reports memory loss Psychiatric: Reports abnormal sleep pattern, Reports anxiety, Reports difficulty concentrating, Reports memory loss and Reports suicidal ideation (denies) Mental Status Exam Mental Status Exam Patient Appearance: Appropriate Patient Orientation: Person, Place, Time and Situation Level of Consciousness: Alert Patient Behavior: Appropriate, Talkative, Cooperative and Good Eye Contact Mood Description: Anxious Affect Description: Anxious Patient Cognition Impaired: Yes Ability to Follow Directions: Good Speech Pattern: Spontaneous Speech Memory Description: Episodic Impaired Hallucinations: None Delusions: Paranoid Ideation Thought Process: Distracted and Confusion Thought Content: positive for [place], positive for Circumstantial, positive for Goal Oriented and positive for Slowed Thinking Depressive Symptoms: Difficulty Sleeping and Difficulty Concentrating Judgement: Fair Diagnostics Vital Signs (24Hr): Vital Signs - 24 hr 12/03/21 21:15 12/04/21 08:12 Temperature 97.4 F Pulse Rate 101 H 113 H Respiratory Rate 18 Blood Pressure 132/88 119/85 Pulse Oximetry 97 BMI result Body Mass Index 31.3 Labs Results: 12/03/21 08:34 12/03/21 08:34 Labs: Laboratory Results - last 48 hr 12/03/21 12/03/21 12/03/21 06:27 08:34 08:34 WBC 7.5 RBC 3.87 L Hgb 12.3 Hct 37.1 MCV 95.9 MCH 31.8 MCHC 33.2 RDW 16.8 H Plt Count 373 MPV 10.5 Immature Gran % (Auto) 0.8 H Neut % (Auto) 69.7 Lymph % (Auto) 23.8 [place] % (Auto) 5.3 Eos % (Auto) 0.1 Baso % (Auto) 0.3 Lymph # (Auto) 1.8 [place] # (Auto) 0.4 Eos # (Auto) 0.0 Baso # (Auto) 0.0 Abs Immat Gran (auto) 0.06 H Absolute Neuts (auto) 5.2 Absolute Nucleated RBC 0.000 Nucleated RBC % (auto) 0.0 Sodium 141 Potassium 4.3 Chloride 107 Carbon Dioxide 21 L Anion Gap 17 BUN 14 Creatinine 0.72 Estim Creat Clear Calc 90.2 Estimated GFR > 60 POC Glucose 141 H Random Glucose 160 H Calcium 9.9 Total Bilirubin 0.6 AST 17 ALT 28 Alkaline Phosphatase 106 Total Protein 7.0 Albumin 4.2 12/04/21 06:47 WBC RBC Hgb Hct MCV MCH MCHC RDW Plt Count MPV Immature Gran % (Auto) Neut % (Auto) Lymph % (Auto) [place] % (Auto) Eos % (Auto) Baso % (Auto) Lymph # (Auto) [place] # (Auto) Eos # (Auto) Baso # (Auto) Abs Immat Gran (auto) Absolute Neuts (auto) Absolute Nucleated RBC Nucleated RBC % (auto) Sodium Potassium Chloride Carbon Dioxide Anion Gap BUN Creatinine Estim Creat Clear Calc Estimated GFR POC Glucose 124 H Random Glucose Calcium Total Bilirubin AST ALT Alkaline Phosphatase Total Protein Albumin Imaging Radiology Impressions: ITS Impressions Brain MRI 11/20/21 13:00 IMPRESSION: 1. No acute intracranial abnormalities. 2. Mild underlying microangiopathy and generalized cerebral volume loss. Medications Medications Current Medications Acetaminophen (Acetaminophen 325 Mg Tablet) 650 mg PO Q6H PRN PRN Reason: Headache/Pain Mild Scale (1-3) Last Admin: 11/22/21 08:44 Dose: 650 mg Documented by: Al Hydroxide/Mg Hydroxide (Magnesium Hydrox/Alum Hydrox 30 Ml Oral.Susp) 30 ml PO Q6H PRN PRN Reason: Heartburn/Nausea Last Admin: 10/02/21 14:41 Dose: 30 ml Documented by: Ascorbic Acid (Ascorbic Acid 500 Mg Tablet) 1,000 mg PO DAILY [facility] Last Admin: 12/04/21 08:05 Dose: 1,000 mg Documented by: Atorvastatin Calcium (Atorvastatin Calcium 10 Mg Tablet) 5 mg PO BEDTIME [facility] Last Admin: 12/03/21 21:25 Dose: 5 mg Documented by: Clonidine HCl (Clonidine Hcl 0.1 Mg Tablet) 0.1 mg PO BID [facility]; Protocol Last Admin: 12/04/21 08:05 Dose: 0.1 mg Documented by: Clozapine (Clozapine 100 Mg Tablet) 150 mg PO BID [facility] Last Admin: 12/04/21 08:05 Dose: 150 mg Documented by: Cyanocobalamin (Cyanocobalamin (Vitamin B-12) 1,000 Mcg Tablet) 1,000 mcg PO DAILY [facility] Last Admin: 12/04/21 08:05 Dose: 1,000 mcg Documented by: Docusate Sodium (Docusate Sodium 100 Mg Capsule) 200 mg PO BEDTIME MYRTLE Last Admin: 12/03/21 21:25 Dose: 200 mg Documented by: Enoxaparin Sodium (Enoxaparin Sodium 40 Mg/0.4 Ml Syringe) 40 mg SUBCUT Q24H [facility] Last Admin: 12/04/21 11:05 Dose: 40 mg Documented by: Ferrous Sulfate (Ferrous Sulfate 324 Mg Tablet.) 324 mg PO DAILY [facility] Last Admin: 12/04/21 08:06 Dose: 324 mg Documented by: Hydroxyzine HCl (Hydroxyzine Hcl 25 Mg Tablet) 25 mg PO BEDTIME PRN PRN Reason: Anxiety Last Admin: 10/31/21 02:30 Dose: 25 mg Documented by: Lorazepam (Lorazepam 1 Mg Tablet) 1 mg PO BID [facility] Last Admin: 12/04/21 08:05 Dose: 1 mg Documented by: Losartan Potassium (Losartan Potassium 25 Mg Tablet) 25 mg PO DAILY [facility]; Protocol Last Admin: 12/04/21 08:06 Dose: 25 mg Documented by: Lurasidone HCl (Lurasidone Hcl 80 Mg Tablet) 80 mg PO 1800 [facility] Last Admin: 12/03/21 18:34 Dose: 80 mg Documented by: Magnesium Hydroxide (Milk Of Magnesia 30 Ml Oral.Susp) 30 ml PO DAILY PRN PRN Reason: Constipation Metformin HCl (Metformin Hcl 1,000 Mg Tablet) 1,000 mg PO BID [facility] Last Admin: 12/04/21 08:06 Dose: 1,000 mg Documented by: Multivitamins/Vitamin C (Multivitamin Tablet) 1 tab PO DAILY [facility] Last Admin: 12/04/21 08:06 Dose: 1 tab Documented by: Neomycin/Polymyxin/Bacitracin (Neomy/Polymyx/Bacit/Ointment 14 Gm Tube) 1 gm TOPICAL BID [facility]; Protocol Last Admin: 12/04/21 08:33 Dose: Not Given Documented by: Non-Formulary Medication (Cinnamon) 1,000 mg PO DAILY [facility] Last Admin: 12/04/21 08:05 Dose: 1,000 mg Documented by: Patient Own Medication ( Empagliflozin 10 Mg) 1 each PO DAILY [facility] Last Admin: 12/04/21 08:32 Dose: 1 each Documented by: Patient Own Medication (Dwayne Red Softgels) 1 each PO DAILY [facility] Last Admin: 12/04/21 08:05 Dose: 1 each Documented by: Omeprazole (Omeprazole 20 Mg Capsule.) 20 mg PO DAILY@0630 [facility] Last Admin: 12/04/21 06:28 Dose: 20 mg Documented by: Ondansetron HCl (Ondansetron Odt 8 Mg Tab.Rapdis) 8 mg TRANSLINGU Q8H PRN PRN Reason: nausea Polyethylene Glycol (Polyethylene Glycol 3350 17 Gm Powd.Pack) 17 gm PO DAILY PRN PRN Reason: Constipation Last Admin: 11/06/21 12:24 Dose: 17 gm Documented by: Prazosin HCl (Prazosin Hcl 1 Mg Capsule) 1 mg PO BEDTIME PRN; Protocol PRN Reason: nightmares Last Admin: 12/02/21 20:51 Dose: 1 mg Documented by: Trazodone HCl (Trazodone Hcl 50 Mg Tablet) 50 mg PO BEDTIME PRN PRN Reason: Insomnia Last Admin: 12/03/21 21:29 Dose: 50 mg Documented by: Vitamin D (Cholecalciferol (Vitamin D3) 10 Mcg Tablet) 10 mcg PO DAILY [facility] Last Admin: 12/04/21 08:06 Dose: 10 mcg Documented by: Allergies Allergies Allergy/AdvReac Type Severity Reaction Status Date / Time lisinopril [LISINOPRIL] Allergy Unknown SWOLLEN Verified 09/17/21 08:42 LIPS, angioedema, swelling Assessment & Plan Assessment & Plan (1) Schizoaffective disorder: Status: Acute Code(s): F25.9 - Schizoaffective disorder, unspecified (2) Facial weakness: Status: Acute Code(s): R29.810 - Facial weakness (3) Encephalopathy: Status: Acute Code(s): G93.40 - Encephalopathy, unspecified Plan 50 yo female, hx of schizoaffective disorder, depressed with R breast cancer, having just completed first cycle of chemotherapy. Pt's partner and sister report to crisis team that pt has had a significant mental status change with psychotic symptoms, paranoia, perceptual alterations, poor sleep and significant thought blocking. Pt denies SI, HI. Today she is a very poor historian-almost pre-catatonic at times, considering signing a three day notice of intent. Team report by history she may not be comfortable in this facility. Assessment plan for 09/21/2021 Continue current medical treatment elevated white blood count noted over the past month question related to cancer treatment.? No evidence of infection Patient depressed withdrawn preoccupied patient with recent treatment for ductal carcinoma stress of this might certainly lead to depressive almost catatonic episode 09/22/21 Pt with thought blocking improved from yeterday have restarted wellbutin hosp did not have sr cont clozapine evaluate baseline denies self harm oob more 09/23/21 Continue current plan of care. Collateral contacts with OP team, oncology. 09/24/21 Increase Abilify to 30 mg daily Pt currently refusing Lorazepam TDN expires 09/25/21-will file for civil commitment if pt persists in wanting discharge 09/25/21 Civil commitment filing completed Continue current regime. 09/26/21 Continue current regime 09/27/32 Decrease Abilify to 20 mg daily Risperdal 1.5 mg HS 09/28/21 Continue plan as above 09/29/21 No changes 09/30/21 Court 10/01/21 Chemotherapy 10/01/21 Increase Risperdal to 2.5 mg HS Decrease Abilify to 10 mg daily 10/02/21 Tolerating change back to Abilify from Risperdal Appetite is improved. Calmer, more visable, however continues with paranoia Jardiance ordered from [facility] 10/03/21 Increase Abilify to 30 mg daily Will pursue validation of pt's HCP for continued chemotherapy Tentative chemotherapy 10/09. 10/04/21 Continue current regime 10/05 no changes to current regimen 10/06 no changes to current regimen 10/07/21 No positive effect from increase in Abilify Increase Clozaril to 100 mg bid, an increase of 50 mg daily, divided. Chemotherapy 10/09/21, Labs 10/08/21. 10/08/21 Tolerating Clozaril increase thus far Dexamethasone 4 mg hs and 4 mg a.m. pre chemo per Dr. Mora Support, encourage 10/09/21 Continue current plan of care 10/10/21 Continue current plan of care 10/11/21 Continue current plan. Will re-eval for Clozaril increase next week. 10/12/2021: Continue current regimen and plans.? No changes were made today 10/13/2021: Continue current plans and regimen. 10/14/21: Increase Clozaril to 125 mg bid ? EKG, CBCD, CMP 10/15 prior to chemotherapy 10/15/21: Continue current plan of care 10/16/21: Continue current plan. Tolerating Clozaril increase 10/17/21: Continue current regime. 10/18/21: Increase Clozaril to 150 mg bid ? Decrease Abilify to 20 mg daily ? ECT Consult 10/19/21: continue meds unchanged 10/20/21: pt continue to present as paranoid, withdrawn 10/21/21: Continue current regime. Labs/EKG 10/22. Some improvement today. 10/22/21: Labs/EKG WNL ? Meeting 10/24 with health care proxy's to discuss clozaril discontinuation ? ECT Consult 10/24/21: Continue current plan. 10/25/21: Continue current plan. 10/26: ECT may be indicated. Change Ativan to standing dose. 10/27 Increase Ativan to 1 mg TID and watch for sedation 10/28/21: CBCD, CMP, EKG 10/29/21 in preparation for chemotherapy ? Await Clozapine level results. 10/29/21: ECT consult 10/30 ? Chemotherapy 10/30 ? Await Clozapine level results. ? Tentative plan to taper Abilify, titrate Latuda. ? Family/HCP in agreement. Pt agrees as well. 10/30/21: Decrease Abilify to 10 mg daily to prepare to begin Latuda 10/31/21: Continue current plan. 11/01/21: Discontinue Abilify ? Latuda 20 mg 1800 11/02/21:? Continue current treatment plan 11/03/21:? Continue current treatment plan 11/04/21: Tolerating Latuda. Pt asks not to titrate yet. Some improvement noted. 11/05/21: Chemotherapy 11/06. Ready to titrate Latuda-family will discuss with pt. Thus far, a positive result, without adverse effect. ? EKG reading pending ? Sister will not be taking pt to chemotherapy on 11/06 as her son has tested positive for COVID this afternoon. Partner Kailey will accompany pt. along with team. 11/06/21: Increase Latuda to 40 mg daily after evening meal. ? Increase Colace to 200 mg hs ? Miralax prn ? Per nursing report, pt will no longer need steroid dosing on Tuesdays before chemotherapy, but will receive dosing on Wednesdays in the chemotherapy dept. 11/07/21: Continue current plan. 11/08/21: Change Lorazepam prn to 1 mg bid 11/09/21: Tolerating Lorazepam. Continue plan of care. 11/10/21: Considering Latuda increase. 11/11/21: Increase Latuda to 60 mg daily. Labs pre chemotherapy. 11/12/21: Continue current plan. Care discussed with HCP Kailey- review of Ativan dosing, therapeutic Latuda dosing,pt's not understanding that her thought blocking, paranoia, belief that she will go to alf are target sx for medication increase. 11/14/21: Continue current plan. Discharge planning with consistent improvement. 11/15/21: continue current medications per primary treatment team. 11/16/2021 Patient seen in psychiatric follow-up patient depressed withdrawn hopeless helpless despondent again discussed option of ECT 11/17/2021 Patient's case reviewed with nursing staff.? Patient seen.? Patient somewhat with cardoso affect today less withdrawn able to engage in discussion regarding Latuda and possibility of ECT treatment.? Continue clozapine Latuda 11/18- discussed with significant other possibility of: underlying paraneoplastic syndrome related to breast carcinona- mainly 4 antibodies have been related to this type of cancer (PERFORMANCE TEST ARCHITECT-2, Anti-yo (PERFORMANCE TEST ARCHITECT-1); Anti-RI (corona-2); and antiamphiphysin) mostly causing cerebellar disfunction including opsoclonus (and myoclonus) which pt appears to have along with other cognitive and psychiatric symptoms. Will order MRI- r/o encephalitis related to chemo or any limbic/cerebellar pathology. Sent message to oncologist. Pt does psychiatric condition appears to significantly improved with dexamethaxone. Also if classic paraneoplastic, which is the one mostly related to cancer tumors,? serum antibodies testing may suffice (without CSF testing).? 11/19 continue current medications- pending mri, paraneoplastic panel. 11/20- continue current medications, pending discussion with oncology re: paraneoplastic syndome, pending MRI 11/21 will d/c wellbutrin as it can worsen psychosis. continue all other meds. MRI shows microvascular changes and atrophy- moca at this time wouldn't be accurate given prominent psych symptoms. 11/22 continue current medications. 11/23 continue tx plan. 11/24 continue tx plan 11/25/21-Continue current plan 11/26/21-Chemotherapy 11/27/21. Continue current plan 11/27/21- Continue current regime. Pt reports feeling tired after her treatment today. Labs pending. Pt discussing wanting to go home. 11/28- continue current tx. 11/29/21- Continue current plan of care. 11/30 continue current treatment plan 12/01 continue current treatment plan; patient brighter and more engaging then before 12/02 continue current medications. 12/04/21 Continue current regime. Tolerating Latuda increase on 12/03. I spent minutes with the patient and/or on the patient floor today, greater than?50% of which was spent counseling/coordinating care. Patient educated on: other Informed Consent: understands and further education needed Reason for contiued inpatient stay Substantial Risk for: med/psych decompensation
[2021-12-04 18:00] VITALS: BP 130/90; PULSE 112; RESP 20; TEMP 36.1; O2SAT 98
[2021-12-04] MEDS: Lurasidone HCl 80 MG TABLET PO (18:15)
[2021-12-04] MEDS: Docusate Sodium 100 MG CAPSULE 200 MG PO (20:49)
[2021-12-04] MEDS: Atorvastatin Calcium 10 MG TABLET 5 MG PO (20:50)
[2021-12-04] MEDS: traZODone HCL 50 MG TABLET PO (20:50)
[2021-12-04] MEDS: NeoMY/Polymyx/Bacit/Ointment 14 GM Tube TOPICAL (22:23)
[2021-12-04] MEDS: Prazosin HCL 1 MG CAPSULE PO (22:53)
[2021-12-04] MEDS: hydrOXYzine HCL 25 MG TABLET PO (22:55)
[2021-12-05] MEDS: Omeprazole 20 MG CAPSULE.DR PO (06:04)
[2021-12-05 07:00] VITALS: BMI 30.5
[2021-12-05 07:00] LABS: Glucose, Whole Blood 126 mg/dL (60-115)
[2021-12-05] MEDS: LORazepam 1 MG TABLET PO ×2 (08:27→20:56)
[2021-12-05] MEDS: cloNIDine HCL 0.1 MG TABLET PO ×2 (08:27→20:56)
[2021-12-05] MEDS: cloZAPine 100 MG TABLET 150 MG PO ×2 (08:27→20:56)
[2021-12-05] MEDS: Ascorbic Acid 500 MG TABLET 1000 MG PO (08:27)
[2021-12-05] MEDS: Cholecalciferol (Vitamin D3) 10 MCG TABLET PO (08:27)
[2021-12-05] MEDS: Ferrous Sulfate 324 MG TABLET.DR PO (08:27)
[2021-12-05] MEDS: Losartan Potassium 25 MG TABLET PO (08:27)
[2021-12-05] MEDS: Multivitamin TABLET 1 TAB PO (08:27)
[2021-12-05] MEDS: metFORMIN HCl 1,000 MG TABLET 1000 MG PO ×2 (08:27→20:56)
[2021-12-05] MEDS: Cyanocobalamin (Vitamin B-12) 1,000 MCG TABLET 1000 MCG PO (08:27)
[2021-12-05 08:31] VITALS: BP 124/80; PULSE 105; RESP 16; TEMP 36.4; O2SAT 98
[2021-12-05] MEDS: Enoxaparin Sodium 40 MG/0.4 ML SYRINGE SUBCUT (12:04)
--- NOTE | 2021-12-05 16:20 | HO.PSYCHPN ---
Subjective Subjective Date of Service: 12/05/21 Reason For Visit: Depression paranoia Subjective Notes: [employer] Proxy: Yes Guardianship: No Medical Problems Affecting Mental Status: No Interim History: Sabra reports a good day today. Discussed structuring her time when discharged Reviewed sleep meds. Decided to increase Trazodone to 75 mg HS Asked about driving after discharge. Encouraged to allow herself time to integrate back into her life before driving Discussed lack of sleep 12/04. Medication Compliance: Yes Side effects from medications: No Attending Groups: Yes Review of Systems Acute medical concerns: No Medical Review of Systems: unchanged Review of Systems Reports memory loss Psychiatric: Reports abnormal sleep pattern, Reports anxiety, Reports difficulty concentrating, Reports memory loss and Reports suicidal ideation (denies) Mental Status Exam Mental Status Exam Patient Appearance: Appropriate Patient Orientation: Person, Place, Time and Situation Level of Consciousness: Alert Patient Behavior: Appropriate, Talkative, Cooperative and Good Eye Contact Mood Description: Anxious Affect Description: Anxious Patient Cognition Impaired: Yes Ability to Follow Directions: Good Speech Pattern: Spontaneous Speech Memory Description: Episodic Impaired Hallucinations: None Delusions: Paranoid Ideation Thought Process: Distracted and Confusion Thought Content: positive for [place], positive for Circumstantial, positive for Goal Oriented and positive for Slowed Thinking Depressive Symptoms: Difficulty Sleeping and Difficulty Concentrating Judgement: Fair Diagnostics Vital Signs (24Hr): Vital Signs - 24 hr 12/04/21 18:00 12/05/21 08:31 Temperature 97 F 97.5 F Pulse Rate 112 H 105 H Respiratory Rate 20 16 Blood Pressure 130/90 H 124/80 Pulse Oximetry 98 98 BMI result Body Mass Index 30.5 Labs Results: 12/03/21 08:34 12/03/21 08:34 Labs: Laboratory Results - last 48 hr 12/04/21 12/05/21 06:47 06:35 POC Glucose 124 H 126 H Imaging Radiology Impressions: ITS Impressions Brain MRI 11/20/21 13:00 IMPRESSION: 1. No acute intracranial abnormalities. 2. Mild underlying microangiopathy and generalized cerebral volume loss. Medications Medications Current Medications Acetaminophen (Acetaminophen 325 Mg Tablet) 650 mg PO Q6H PRN PRN Reason: Headache/Pain Mild Scale (1-3) Last Admin: 11/22/21 08:44 Dose: 650 mg Documented by: Al Hydroxide/Mg Hydroxide (Magnesium Hydrox/Alum Hydrox 30 Ml Oral.Susp) 30 ml PO Q6H PRN PRN Reason: Heartburn/Nausea Last Admin: 10/02/21 14:41 Dose: 30 ml Documented by: Ascorbic Acid (Ascorbic Acid 500 Mg Tablet) 1,000 mg PO DAILY [facility] Last Admin: 12/05/21 08:27 Dose: 1,000 mg Documented by: Atorvastatin Calcium (Atorvastatin Calcium 10 Mg Tablet) 5 mg PO BEDTIME [facility] Last Admin: 12/04/21 20:50 Dose: 5 mg Documented by: Clonidine HCl (Clonidine Hcl 0.1 Mg Tablet) 0.1 mg PO BID [facility]; Protocol Last Admin: 12/05/21 08:27 Dose: 0.1 mg Documented by: Clozapine (Clozapine 100 Mg Tablet) 150 mg PO BID [facility] Last Admin: 12/05/21 08:27 Dose: 150 mg Documented by: Cyanocobalamin (Cyanocobalamin (Vitamin B-12) 1,000 Mcg Tablet) 1,000 mcg PO DAILY [facility] Last Admin: 12/05/21 08:27 Dose: 1,000 mcg Documented by: Docusate Sodium (Docusate Sodium 100 Mg Capsule) 200 mg PO BEDTIME [facility] Last Admin: 12/04/21 20:49 Dose: 200 mg Documented by: Enoxaparin Sodium (Enoxaparin Sodium 40 Mg/0.4 Ml Syringe) 40 mg SUBCUT Q24H [facility] Last Admin: 12/05/21 12:04 Dose: 40 mg Documented by: Ferrous Sulfate (Ferrous Sulfate 324 Mg Tablet.Dr) 324 mg PO DAILY [facility] Last Admin: 12/05/21 08:27 Dose: 324 mg Documented by: Hydroxyzine HCl (Hydroxyzine Hcl 25 Mg Tablet) 25 mg PO BEDTIME PRN PRN Reason: Anxiety Last Admin: 12/04/21 22:55 Dose: 25 mg Documented by: Lorazepam (Lorazepam 1 Mg Tablet) 1 mg PO BID [facility] Last Admin: 12/05/21 08:27 Dose: 1 mg Documented by: Losartan Potassium (Losartan Potassium 25 Mg Tablet) 25 mg PO DAILY [facility]; Protocol Last Admin: 12/05/21 08:27 Dose: 25 mg Documented by: Lurasidone HCl (Lurasidone Hcl 80 Mg Tablet) 80 mg PO 1800 [facility] Last Admin: 12/04/21 18:15 Dose: 80 mg Documented by: Magnesium Hydroxide (Milk Of Magnesia 30 Ml Oral.Susp) 30 ml PO DAILY PRN PRN Reason: Constipation Metformin HCl (Metformin Hcl 1,000 Mg Tablet) 1,000 mg PO BID [facility] Last Admin: 12/05/21 08:27 Dose: 1,000 mg Documented by: Multivitamins/Vitamin C (Multivitamin Tablet) 1 tab PO DAILY [facility] Last Admin: 12/05/21 08:27 Dose: 1 tab Documented by: Neomycin/Polymyxin/Bacitracin (Neomy/Polymyx/Bacit/Ointment 14 Gm Tube) 1 gm TOPICAL BID [facility]; Protocol Last Admin: 12/05/21 08:41 Dose: Not Given Documented by: Non-Formulary Medication (Cinnamon) 1,000 mg PO DAILY [facility] Last Admin: 12/05/21 08:26 Dose: 1,000 mg Documented by: Patient Own Medication ( Empagliflozin 10 Mg) 1 each PO DAILY [facility] Last Admin: 12/05/21 08:26 Dose: 1 each Documented by: Patient Own Medication (Dwayne Red Softgels) 1 each PO DAILY [facility] Last Admin: 12/05/21 08:26 Dose: 1 each Documented by: Omeprazole (Omeprazole 20 Mg Capsule.Dr) 20 mg PO DAILY@0630 [facility] Last Admin: 12/05/21 06:04 Dose: 20 mg Documented by: Ondansetron HCl (Ondansetron Odt 8 Mg Tab.Rapdis) 8 mg TRANSLINGU Q8H PRN PRN Reason: nausea Polyethylene Glycol (Polyethylene Glycol 3350 17 Gm Powd.Pack) 17 gm PO DAILY PRN PRN Reason: Constipation Last Admin: 11/06/21 12:24 Dose: 17 gm Documented by: Prazosin HCl (Prazosin Hcl 1 Mg Capsule) 1 mg PO BEDTIME PRN; Protocol PRN Reason: nightmares Last Admin: 12/04/21 22:53 Dose: 1 mg Documented by: Trazodone HCl (Trazodone Hcl 25 Mg Halftab) 75 mg PO BEDTIME PRN PRN Reason: Insomnia Vitamin D (Cholecalciferol (Vitamin D3) 10 Mcg Tablet) 10 mcg PO DAILY [facility] Last Admin: 12/05/21 08:27 Dose: 10 mcg Documented by: Allergies Allergies Allergy/AdvReac Type Severity Reaction Status Date / Time lisinopril [LISINOPRIL] Allergy Unknown SWOLLEN Verified 09/17/21 08:42 LIPS, angioedema, swelling Assessment & Plan Assessment & Plan (1) Schizoaffective disorder: Status: Acute Code(s): F25.9 - Schizoaffective disorder, unspecified (2) Facial weakness: Status: Acute Code(s): R29.810 - Facial weakness (3) Encephalopathy: Status: Acute Code(s): G93.40 - Encephalopathy, unspecified Plan 50 yo female, hx of schizoaffective disorder, depressed with R breast cancer, having just completed first cycle of chemotherapy. Pt's partner and sister report to crisis team that pt has had a significant mental status change with psychotic symptoms, paranoia, perceptual alterations, poor sleep and significant thought blocking. Pt denies SI, HI. Today she is a very poor historian-almost pre-catatonic at times, considering signing a three day notice of intent. Team report by history she may not be comfortable in this facility. Assessment plan for 09/21/2021 Continue current medical treatment elevated white blood count noted over the past month question related to cancer treatment.? No evidence of infection Patient depressed withdrawn preoccupied patient with recent treatment for ductal carcinoma stress of this might certainly lead to depressive almost catatonic episode 09/22/21 Pt with thought blocking improved from yeterday have restarted wellbutin hosp did not have sr cont clozapine evaluate baseline denies self harm oob more 09/23/21 Continue current plan of care. Collateral contacts with OP team, oncology. 09/24/21 Increase Abilify to 30 mg daily Pt currently refusing Lorazepam TDN expires 09/25/21-will file for civil commitment if pt persists in wanting discharge 09/25/21 Civil commitment filing completed Continue current regime. 09/26/21 Continue current regime 09/27/32 Decrease Abilify to 20 mg daily Risperdal 1.5 mg HS 09/28/21 Continue plan as above 09/29/21 No changes 09/30/21 Court 10/01/21 Chemotherapy 10/01/21 Increase Risperdal to 2.5 mg HS Decrease Abilify to 10 mg daily 10/02/21 Tolerating change back to Abilify from Risperdal Appetite is improved. Calmer, more visable, however continues with paranoia Jardiance ordered from [facility] pharmacy 10/03/21 Increase Abilify to 30 mg daily Will pursue validation of pt's HCP for continued chemotherapy Tentative chemotherapy 10/09. 10/04/21 Continue current regime 10/05 no changes to current regimen 10/06 no changes to current regimen 10/07/21 No positive effect from increase in Abilify Increase Clozaril to 100 mg bid, an increase of 50 mg daily, divided. Chemotherapy 10/09/21, Labs 10/08/21. 10/08/21 Tolerating Clozaril increase thus far Dexamethasone 4 mg hs and 4 mg a.m. pre chemo per Dr. Mora Support, encourage 10/09/21 Continue current plan of care 10/10/21 Continue current plan of care 10/11/21 Continue current plan. Will re-eval for Clozaril increase next week. 10/12/2021: Continue current regimen and plans.? No changes were made today 10/13/2021: Continue current plans and regimen. 10/14/21: Increase Clozaril to 125 mg bid ? EKG, CBCD, CMP 10/15 prior to chemotherapy 10/15/21: Continue current plan of care 10/16/21: Continue current plan. Tolerating Clozaril increase 10/17/21: Continue current regime. 10/18/21: Increase Clozaril to 150 mg bid ? Decrease Abilify to 20 mg daily ? ECT Consult 10/19/21: continue meds unchanged 10/20/21: pt continue to present as paranoid, withdrawn 10/21/21: Continue current regime. Labs/EKG 10/22. Some improvement today. 10/22/21: Labs/EKG WNL ? Meeting 10/24 with health care proxy's to discuss clozaril discontinuation ? ECT Consult 10/24/21: Continue current plan. 10/25/21: Continue current plan. 10/26: ECT may be indicated. Change Ativan to standing dose. 10/27 Increase Ativan to 1 mg TID and watch for sedation 10/28/21: CBCD, CMP, EKG 10/29/21 in preparation for chemotherapy ? Await Clozapine level results. 10/29/21: ECT consult 4/6 ? Chemotherapy 10/30 ? Await Clozapine level results. ? Tentative plan to taper Abilify, titrate Latuda. ? Family/HCP in agreement. Pt agrees as well. 10/30/21: Decrease Abilify to 10 mg daily to prepare to begin Latuda 10/31/21: Continue current plan. 11/01/21: Discontinue Abilify ? Latuda 20 mg 1800 11/02/21:? Continue current treatment plan 11/03/21:? Continue current treatment plan 11/04/21: Tolerating Latuda. Pt asks not to titrate yet. Some improvement noted. 11/05/21: Chemotherapy 11/06. Ready to titrate Latuda-family will discuss with pt. Thus far, a positive result, without adverse effect. ? EKG reading pending ? Sister will not be taking pt to chemotherapy on 11/06 as her son has tested positive for COVID this afternoon. Partner Kailey will accompany pt. along with team. 11/06/21: Increase Latuda to 40 mg daily after evening meal. ? Increase Colace to 200 mg hs ? Miralax prn ? Per nursing report, pt will no longer need steroid dosing on Tuesdays before chemotherapy, but will receive dosing on Wednesdays in the chemotherapy dept. 11/07/21: Continue current plan. 11/08/21: Change Lorazepam prn to 1 mg bid 11/09/21: Tolerating Lorazepam. Continue plan of care. 11/10/21: Considering Latuda increase. 11/11/21: Increase Latuda to 60 mg daily. Labs pre chemotherapy. 11/12/21: Continue current plan. Care discussed with HCP Kailey- review of Ativan dosing, therapeutic Latuda dosing,pt's not understanding that her thought blocking, paranoia, belief that she will go to senior living are target sx for medication increase. 11/14/21: Continue current plan. Discharge planning with consistent improvement. 11/15/21: continue current medications per primary treatment team. 11/16/2021 Patient seen in psychiatric follow-up patient depressed withdrawn hopeless helpless despondent again discussed option of ECT 11/17/2021 Patient's case reviewed with nursing staff.? Patient seen.? Patient somewhat with cardoso affect today less withdrawn able to engage in discussion regarding Latuda and possibility of ECT treatment.? Continue clozapine Latuda 11/18- discussed with significant other possibility of: underlying paraneoplastic syndrome related to breast carcinona- mainly 4 antibodies have been related to this type of cancer (PAPIER MACHE' MOLDER-2, Anti-yo (PAPIER MACHE' MOLDER-1); Anti-RI (corona-2); and antiamphiphysin) mostly causing cerebellar disfunction including opsoclonus (and myoclonus) which pt appears to have along with other cognitive and psychiatric symptoms. Will order MRI- r/o encephalitis related to chemo or any limbic/cerebellar pathology. Sent message to oncologist. Pt does psychiatric condition appears to significantly improved with dexamethaxone. Also if classic paraneoplastic, which is the one mostly related to cancer tumors,? serum antibodies testing may suffice (without CSF testing).? 11/19 continue current medications- pending mri, paraneoplastic panel. 11/20- continue current medications, pending discussion with oncology re: paraneoplastic syndome, pending MRI 11/21 will d/c wellbutrin as it can worsen psychosis. continue all other meds. MRI shows microvascular changes and atrophy- moca at this time wouldn't be accurate given prominent psych symptoms. 11/22 continue current medications. 11/23 continue tx plan. 11/24 continue tx plan 11/25/21-Continue current plan 11/26/21-Chemotherapy 11/27/21. Continue current plan 11/27/21- Continue current regime. Pt reports feeling tired after her treatment today. Labs pending. Pt discussing wanting to go home. 11/28- continue current tx. 11/29/21- Continue current plan of care. 11/30 continue current treatment plan 12/01 continue current treatment plan; patient brighter and more engaging then before 12/02 continue current medications. 12/04/21 Continue current regime. Tolerating Latuda increase on 12/03. 12/05/21 Increase Trazodone to 75 mg HS per pt request. I spent minutes with the patient and/or on the patient floor today, greater than?50% of which was spent counseling/coordinating care. Patient educated on: medication risk/benefits Informed Consent: understands and further education needed Reason for contiued inpatient stay Substantial Risk for: harm to self, inability to function, rapid decompensation and med/psych decompensation
[2021-12-05] MEDS: Lurasidone HCl 80 MG TABLET PO (18:28)
[2021-12-05 20:40] VITALS: BP 115/83; PULSE 114
[2021-12-05] MEDS: Docusate Sodium 100 MG CAPSULE 200 MG PO (20:56)
[2021-12-05] MEDS: Atorvastatin Calcium 10 MG TABLET 5 MG PO (20:56)
[2021-12-05] MEDS: traZODone HCL 25 MG HALFTAB 75 MG PO (20:57)
[2021-12-06] MEDS: Omeprazole 20 MG CAPSULE.DR PO (06:32)
[2021-12-06 06:54] LABS: Glucose, Whole Blood 144 mg/dL (60-115)
[2021-12-06] MEDS: cloZAPine 100 MG TABLET 150 MG PO ×2 (08:36→21:27)
[2021-12-06] MEDS: Ferrous Sulfate 324 MG TABLET.DR PO (08:36)
[2021-12-06] MEDS: metFORMIN HCl 1,000 MG TABLET 1000 MG PO ×2 (08:36→21:26)
[2021-12-06] MEDS: Cyanocobalamin (Vitamin B-12) 1,000 MCG TABLET 1000 MCG PO (08:36)
[2021-12-06] MEDS: cloNIDine HCL 0.1 MG TABLET PO ×2 (08:36→21:27)
[2021-12-06] MEDS: Ascorbic Acid 500 MG TABLET 1000 MG PO (08:36)
[2021-12-06] MEDS: Multivitamin TABLET 1 TAB PO (08:36)
[2021-12-06] MEDS: Cholecalciferol (Vitamin D3) 10 MCG TABLET PO (08:36)
[2021-12-06] MEDS: LORazepam 1 MG TABLET PO ×2 (08:36→21:28)
[2021-12-06] MEDS: Losartan Potassium 25 MG TABLET PO (08:36)
[2021-12-06 08:42] VITALS: BP 115/75; PULSE 114; RESP 18; TEMP 36.5; O2SAT 98
[2021-12-06] MEDS: Enoxaparin Sodium 40 MG/0.4 ML SYRINGE SUBCUT (11:53)
[2021-12-06] MEDS: Lurasidone HCl 80 MG TABLET PO (17:59)
--- NOTE | 2021-12-06 19:05 | HO.PSYCHPN ---
Subjective Subjective Date of Service: 12/06/21 Reason For Visit: Depression paranoia Subjective Notes: Section 8 Healthcare Proxy: Yes Guardianship: No Interim History: Reports feeling tired today but having had improved sleep last night with Trazodone increase. Continues to focus discussion on discharge planning and structuring of her time. Team reports on 12/09 there will be a needs and means eval with [facility] for services. Pt reports she is ready for this. Medication Compliance: Yes Side effects from medications: No Attending Groups: Yes Review of Systems Acute medical concerns: No Medical Review of Systems: unchanged Review of Systems Reports memory loss Psychiatric: Reports abnormal sleep pattern, Reports anxiety, Reports difficulty concentrating, Reports memory loss and Reports suicidal ideation (denies) Mental Status Exam Mental Status Exam Patient Appearance: Appropriate Patient Orientation: Person, Place, Time and Situation Level of Consciousness: Alert Patient Behavior: Appropriate, Talkative, Cooperative and Good Eye Contact Mood Description: Anxious Affect Description: Anxious Patient Cognition Impaired: Yes Ability to Follow Directions: Good Speech Pattern: Spontaneous Speech Memory Description: Episodic Impaired Hallucinations: None Delusions: Paranoid Ideation Thought Process: Distracted and Confusion Thought Content: positive for [place], positive for Circumstantial, positive for Goal Oriented and positive for Slowed Thinking Depressive Symptoms: Difficulty Sleeping and Difficulty Concentrating Judgement: Fair Diagnostics Vital Signs (24Hr): Vital Signs - 24 hr 12/05/21 20:40 12/06/21 08:42 Temperature 97.7 F Pulse Rate 114 H 114 H Respiratory Rate 18 Blood Pressure 115/83 115/75 Pulse Oximetry 98 BMI result Body Mass Index 30.5 Labs Results: 12/03/21 08:34 12/03/21 08:34 Labs: Laboratory Results - last 48 hr 12/05/21 12/06/21 06:35 06:30 POC Glucose 126 H 144 H Imaging Radiology Impressions: ITS Impressions Brain MRI 11/20/21 13:00 IMPRESSION: 1. No acute intracranial abnormalities. 2. Mild underlying microangiopathy and generalized cerebral volume loss. Medications Medications Current Medications Acetaminophen (Acetaminophen 325 Mg Tablet) 650 mg PO Q6H PRN PRN Reason: Headache/Pain Mild Scale (1-3) Last Admin: 11/22/21 08:44 Dose: 650 mg Documented by: Al Hydroxide/Mg Hydroxide (Magnesium Hydrox/Alum Hydrox 30 Ml Oral.Susp) 30 ml PO Q6H PRN PRN Reason: Heartburn/Nausea Last Admin: 10/02/21 14:41 Dose: 30 ml Documented by: Ascorbic Acid (Ascorbic Acid 500 Mg Tablet) 1,000 mg PO DAILY [facility] Last Admin: 12/06/21 08:36 Dose: 1,000 mg Documented by: Atorvastatin Calcium (Atorvastatin Calcium 10 Mg Tablet) 5 mg PO BEDTIME [facility] Last Admin: 12/05/21 20:56 Dose: 5 mg Documented by: Clonidine HCl (Clonidine Hcl 0.1 Mg Tablet) 0.1 mg PO BID [facility]; Protocol Last Admin: 12/06/21 08:36 Dose: 0.1 mg Documented by: Clozapine (Clozapine 100 Mg Tablet) 150 mg PO BID [facility] Last Admin: 12/06/21 08:36 Dose: 150 mg Documented by: Cyanocobalamin (Cyanocobalamin (Vitamin B-12) 1,000 Mcg Tablet) 1,000 mcg PO DAILY [facility] Last Admin: 12/06/21 08:36 Dose: 1,000 mcg Documented by: Docusate Sodium (Docusate Sodium 100 Mg Capsule) 200 mg PO BEDTIME [facility] Last Admin: 12/05/21 20:56 Dose: 200 mg Documented by: Enoxaparin Sodium (Enoxaparin Sodium 40 Mg/0.4 Ml Syringe) 40 mg SUBCUT Q24H [facility] Last Admin: 12/06/21 11:53 Dose: 40 mg Documented by: Ferrous Sulfate (Ferrous Sulfate 324 Mg Tablet.Dr) 324 mg PO DAILY [facility] Last Admin: 12/06/21 08:36 Dose: 324 mg Documented by: Hydroxyzine HCl (Hydroxyzine Hcl 25 Mg Tablet) 25 mg PO BEDTIME PRN PRN Reason: Anxiety Last Admin: 12/04/21 22:55 Dose: 25 mg Documented by: Lorazepam (Lorazepam 1 Mg Tablet) 1 mg PO BID [facility] Last Admin: 12/06/21 08:36 Dose: 1 mg Documented by: Losartan Potassium (Losartan Potassium 25 Mg Tablet) 25 mg PO DAILY [facility]; Protocol Last Admin: 12/06/21 08:36 Dose: 25 mg Documented by: Lurasidone HCl (Lurasidone Hcl 80 Mg Tablet) 80 mg PO 1800 [facility] Last Admin: 12/06/21 17:59 Dose: 80 mg Documented by: Magnesium Hydroxide (Milk Of Magnesia 30 Ml Oral.Susp) 30 ml PO DAILY PRN PRN Reason: Constipation Metformin HCl (Metformin Hcl 1,000 Mg Tablet) 1,000 mg PO BID [facility] Last Admin: 12/06/21 08:36 Dose: 1,000 mg Documented by: Multivitamins/Vitamin C (Multivitamin Tablet) 1 tab PO DAILY [facility] Last Admin: 12/06/21 08:36 Dose: 1 tab Documented by: Non-Formulary Medication (Cinnamon) 1,000 mg PO DAILY [facility] Last Admin: 12/06/21 08:35 Dose: 1,000 mg Documented by: Patient Own Medication ( Empagliflozin 10 Mg) 1 each PO DAILY [facility] Last Admin: 12/06/21 08:35 Dose: 1 each Documented by: Patient Own Medication (Dwayne Red Softgels) 1 each PO DAILY [facility] Last Admin: 12/06/21 08:35 Dose: 1 each Documented by: Omeprazole (Omeprazole 20 Mg Capsule.Dr) 20 mg PO DAILY@0630 [facility] Last Admin: 12/06/21 06:32 Dose: 20 mg Documented by: Ondansetron HCl (Ondansetron Odt 8 Mg Tab.Rapdis) 8 mg TRANSLINGU Q8H PRN PRN Reason: nausea Polyethylene Glycol (Polyethylene Glycol 3350 17 Gm Powd.Pack) 17 gm PO DAILY PRN PRN Reason: Constipation Last Admin: 11/06/21 12:24 Dose: 17 gm Documented by: Prazosin HCl (Prazosin Hcl 1 Mg Capsule) 1 mg PO BEDTIME PRN; Protocol PRN Reason: nightmares Last Admin: 12/04/21 22:53 Dose: 1 mg Documented by: Trazodone HCl (Trazodone Hcl 25 Mg Halftab) 75 mg PO BEDTIME PRN PRN Reason: Insomnia Last Admin: 12/05/21 20:57 Dose: 75 mg Documented by: Vitamin D (Cholecalciferol (Vitamin D3) 10 Mcg Tablet) 10 mcg PO DAILY [facility] Last Admin: 12/06/21 08:36 Dose: 10 mcg Documented by: Allergies Allergies Allergy/AdvReac Type Severity Reaction Status Date / Time lisinopril [LISINOPRIL] Allergy Unknown SWOLLEN Verified 09/17/21 08:42 LIPS, angioedema, swelling Assessment & Plan Assessment & Plan (1) Schizoaffective disorder: Status: Acute Code(s): F25.9 - Schizoaffective disorder, unspecified (2) Facial weakness: Status: Acute Code(s): R29.810 - Facial weakness (3) Encephalopathy: Status: Acute Code(s): G93.40 - Encephalopathy, unspecified Plan 50 yo female, hx of schizoaffective disorder, depressed with R breast cancer, having just completed first cycle of chemotherapy. Pt's partner and sister report to crisis team that pt has had a significant mental status change with psychotic symptoms, paranoia, perceptual alterations, poor sleep and significant thought blocking. Pt denies SI, HI. Today she is a very poor historian-almost pre-catatonic at times, considering signing a three day notice of intent. Team report by history she may not be comfortable in this facility. Assessment plan for 09/21/2021 Continue current medical treatment elevated white blood count noted over the past month question related to cancer treatment.? No evidence of infection Patient depressed withdrawn preoccupied patient with recent treatment for ductal carcinoma stress of this might certainly lead to depressive almost catatonic episode 09/22/21 Pt with thought blocking improved from yeterday have restarted wellbutin hosp did not have sr cont clozapine evaluate baseline denies self harm oob more 09/23/21 Continue current plan of care. Collateral contacts with OP team, oncology. 09/24/21 Increase Abilify to 30 mg daily Pt currently refusing Lorazepam TDN expires 09/25/21-will file for civil commitment if pt persists in wanting discharge 09/25/21 Civil commitment filing completed Continue current regime. 09/26/21 Continue current regime 09/27/32 Decrease Abilify to 20 mg daily Risperdal 1.5 mg HS 09/28/21 Continue plan as above 09/29/21 No changes 09/30/21 Court 10/01/21 Chemotherapy 10/01/21 Increase Risperdal to 2.5 mg HS Decrease Abilify to 10 mg daily 10/02/21 Tolerating change back to Abilify from Risperdal Appetite is improved. Calmer, more visable, however continues with paranoia Jardiance ordered from [place] [facility] 10/03/21 Increase Abilify to 30 mg daily Will pursue validation of pt's HCP for continued chemotherapy Tentative chemotherapy 10/09. 10/04/21 Continue current regime 10/05 no changes to current regimen 10/06 no changes to current regimen 10/07/21 No positive effect from increase in Abilify Increase Clozaril to 100 mg bid, an increase of 50 mg daily, divided. Chemotherapy 10/09/21, Labs 10/08/21. 10/08/21 Tolerating Clozaril increase thus far Dexamethasone 4 mg hs and 4 mg a.m. pre chemo per Dr. Mora Support, encourage 10/09/21 Continue current plan of care 10/10/21 Continue current plan of care 10/11/21 Continue current plan. Will re-eval for Clozaril increase next week. 10/12/2021: Continue current regimen and plans.? No changes were made today 10/13/2021: Continue current plans and regimen. 10/14/21: Increase Clozaril to 125 mg bid ? EKG, CBCD, CMP 10/15 prior to chemotherapy 10/15/21: Continue current plan of care 10/16/21: Continue current plan. Tolerating Clozaril increase 10/17/21: Continue current regime. 10/18/21: Increase Clozaril to 150 mg bid ? Decrease Abilify to 20 mg daily ? ECT Consult 10/19/21: continue meds unchanged 10/20/21: pt continue to present as paranoid, withdrawn 10/21/21: Continue current regime. Labs/EKG 10/22. Some improvement today. 10/22/21: Labs/EKG WNL ? Meeting 10/24 with health care proxy's to discuss clozaril discontinuation ? ECT Consult 10/24/21: Continue current plan. 10/25/21: Continue current plan. 10/26: ECT may be indicated. Change Ativan to standing dose. 10/27 Increase Ativan to 1 mg TID and watch for sedation 10/28/21: CBCD, CMP, EKG 10/29/21 in preparation for chemotherapy ? Await Clozapine level results. 10/29/21: ECT consult 10/30 ? Chemotherapy 10/30 ? Await Clozapine level results. ? Tentative plan to taper Abilify, titrate Latuda. ? Family/HCP in agreement. Pt agrees as well. 10/30/21: Decrease Abilify to 10 mg daily to prepare to begin Latuda 10/31/21: Continue current plan. 11/01/21: Discontinue Abilify ? Latuda 20 mg 1800 11/02/21:? Continue current treatment plan 11/03/21:? Continue current treatment plan 11/04/21: Tolerating Latuda. Pt asks not to titrate yet. Some improvement noted. 11/05/21: Chemotherapy 11/06. Ready to titrate Latuda-family will discuss with pt. Thus far, a positive result, without adverse effect. ? EKG reading pending ? Sister will not be taking pt to chemotherapy on 11/06 as her son has tested positive for COVID this afternoon. Partner Kailey will accompany pt. along with team. 11/06/21: Increase Latuda to 40 mg daily after evening meal. ? Increase Colace to 200 mg hs ? Miralax prn ? Per nursing report, pt will no longer need steroid dosing on Tuesdays before chemotherapy, but will receive dosing on Wednesdays in the chemotherapy dept. 11/07/21: Continue current plan. 11/08/21: Change Lorazepam prn to 1 mg bid 11/09/21: Tolerating Lorazepam. Continue plan of care. 11/10/21: Considering Latuda increase. 11/11/21: Increase Latuda to 60 mg daily. Labs pre chemotherapy. 11/12/21: Continue current plan. Care discussed with HCP Kailey- review of Ativan dosing, therapeutic Latuda dosing,pt's not understanding that her thought blocking, paranoia, belief that she will go to longterm are target sx for medication increase. 11/14/21: Continue current plan. Discharge planning with consistent improvement. 11/15/21: continue current medications per primary treatment team. 11/16/2021 Patient seen in psychiatric follow-up patient depressed withdrawn hopeless helpless despondent again discussed option of ECT 11/17/2021 Patient's case reviewed with nursing staff.? Patient seen.? Patient somewhat with cardoso affect today less withdrawn able to engage in discussion regarding Latuda and possibility of ECT treatment.? Continue clozapine Latuda 11/18- discussed with significant other possibility of: underlying paraneoplastic syndrome related to breast carcinona- mainly 4 antibodies have been related to this type of cancer (SCALING MACHINE OPERATOR-2, Anti-yo (SCALING MACHINE OPERATOR-1); Anti-RI (corona-2); and antiamphiphysin) mostly causing cerebellar disfunction including opsoclonus (and myoclonus) which pt appears to have along with other cognitive and psychiatric symptoms. Will order MRI- r/o encephalitis related to chemo or any limbic/cerebellar pathology. Sent message to oncologist. Pt does psychiatric condition appears to significantly improved with dexamethaxone. Also if classic paraneoplastic, which is the one mostly related to cancer tumors,? serum antibodies testing may suffice (without CSF testing).? 11/19 continue current medications- pending mri, paraneoplastic panel. 11/20- continue current medications, pending discussion with oncology re: paraneoplastic syndome, pending MRI 11/21 will d/c wellbutrin as it can worsen psychosis. continue all other meds. MRI shows microvascular changes and atrophy- moca at this time wouldn't be accurate given prominent psych symptoms. 11/22 continue current medications. 11/23 continue tx plan. 11/24 continue tx plan 11/25/21-Continue current plan 11/26/21-Chemotherapy 11/27/21. Continue current plan 11/27/21- Continue current regime. Pt reports feeling tired after her treatment today. Labs pending. Pt discussing wanting to go home. 11/28- continue current tx. 11/29/21- Continue current plan of care. 11/30 continue current treatment plan 12/01 continue current treatment plan; patient brighter and more engaging then before 12/02 continue current medications. 12/04/21 Continue current regime. Tolerating Latuda increase on 12/03. 12/05/21 Increase Trazodone to 75 mg HS per pt request. 12/06/21 Continue current regime. I spent minutes with the patient and/or on the patient floor today, greater than?50% of which was spent counseling/coordinating care. Patient educated on: therapeutic strategies Informed Consent: understands and further education needed Reason for contiued inpatient stay Substantial Risk for: harm to self, inability to function, rapid decompensation and med/psych decompensation
[2021-12-06 21:10] VITALS: BP 127/85; PULSE 110
[2021-12-06] MEDS: Docusate Sodium 100 MG CAPSULE 200 MG PO (21:26)
[2021-12-06] MEDS: Atorvastatin Calcium 10 MG TABLET 5 MG PO (21:26)
[2021-12-06] MEDS: traZODone HCL 25 MG HALFTAB 75 MG PO (21:29)
[2021-12-07] MEDS: Omeprazole 20 MG CAPSULE.DR PO (06:27)
[2021-12-07 06:35] LABS: Glucose, Whole Blood 136 mg/dL (60-115)
[2021-12-07] MEDS: Ferrous Sulfate 324 MG TABLET.DR PO (08:10)
[2021-12-07] MEDS: Cyanocobalamin (Vitamin B-12) 1,000 MCG TABLET 1000 MCG PO (08:10)
[2021-12-07] MEDS: Ascorbic Acid 500 MG TABLET 1000 MG PO (08:10)
[2021-12-07] MEDS: cloZAPine 100 MG TABLET 150 MG PO ×2 (08:10→21:13)
[2021-12-07] MEDS: Multivitamin TABLET 1 TAB PO (08:10)
[2021-12-07] MEDS: Losartan Potassium 25 MG TABLET PO (08:10)
[2021-12-07] MEDS: metFORMIN HCl 1,000 MG TABLET 1000 MG PO ×2 (08:10→21:13)
[2021-12-07] MEDS: Cholecalciferol (Vitamin D3) 10 MCG TABLET PO (08:10)
[2021-12-07] MEDS: cloNIDine HCL 0.1 MG TABLET PO ×2 (08:10→21:13)
[2021-12-07] MEDS: LORazepam 1 MG TABLET PO (08:11)
[2021-12-07 08:15] VITALS: BP 115/79; PULSE 121; RESP 18; TEMP 36.3; O2SAT 97
--- NOTE | 2021-12-07 08:17 | P.PNPSI_ITS ---
Subjective Subjective Date of Service: 12/07/21 Reason For Visit: Depression paranoia Subjective Notes: Section 8 Medical Problems Affecting Mental Status: Yes (Breast cancer and chemotherapy) Interim History: Patient was seen and discussed in rounds today. She continues to be isolative but is getting up and attempting to respond. She continues with her breast cancer chemotherapy and treatment. Attending some groups. Possible discharge early next week. No complaints or side effects. No changes were made today Review of Systems Reports memory loss Psychiatric: Reports abnormal sleep pattern, Reports anxiety, Reports difficulty concentrating, Reports memory loss and Reports suicidal ideation (denies) Mental Status Exam Mental Status Exam Narrative: In today's visit she is alert, oriented. She was standing by her bedside. Speech is very soft spoken. No eye contact. Affect is constricted. Cognitively she has paucity of thought. Slowed thought processes. No SI. No acute signs of psychosis. Judgment is marginal. Diagnostics Vital Signs (24Hr): Vital Signs - 24 hr 12/06/21 08:42 12/06/21 21:10 12/07/21 08:15 Temperature 97.7 F 97.4 F Pulse Rate 114 H 110 H 121 H Respiratory Rate 18 18 Blood Pressure 115/75 127/85 115/79 Pulse Oximetry 98 97 BMI result Body Mass Index 30.5 Labs Results: 12/03/21 08:34 12/03/21 08:34 Labs: Laboratory Results - last 48 hr 12/06/21 12/07/21 06:30 06:29 POC Glucose 144 H 136 H Imaging Radiology Impressions: ITS Impressions Brain MRI 11/20/21 13:00 IMPRESSION: 1. No acute intracranial abnormalities. 2. Mild underlying microangiopathy and generalized cerebral volume loss. Medications Medications Current Medications Acetaminophen (Acetaminophen 325 Mg Tablet) 650 mg PO Q6H PRN PRN Reason: Headache/Pain Mild Scale (1-3) Last Admin: 11/22/21 08:44 Dose: 650 mg Documented by: Al Hydroxide/Mg Hydroxide (Magnesium Hydrox/Alum Hydrox 30 Ml Oral.Susp) 30 ml PO Q6H PRN PRN Reason: Heartburn/Nausea Last Admin: 10/02/21 14:41 Dose: 30 ml Documented by: Ascorbic Acid (Ascorbic Acid 500 Mg Tablet) 1,000 mg PO DAILY MYRTLE Last Admin: 12/07/21 08:10 Dose: 1,000 mg Documented by: Atorvastatin Calcium (Atorvastatin Calcium 10 Mg Tablet) 5 mg PO BEDTIME [facility] Last Admin: 12/06/21 21:26 Dose: 5 mg Documented by: Clonidine HCl (Clonidine Hcl 0.1 Mg Tablet) 0.1 mg PO BID [facility]; Protocol Last Admin: 12/07/21 08:10 Dose: 0.1 mg Documented by: Clozapine (Clozapine 100 Mg Tablet) 150 mg PO BID [facility] Last Admin: 12/07/21 08:10 Dose: 150 mg Documented by: Cyanocobalamin (Cyanocobalamin (Vitamin B-12) 1,000 Mcg Tablet) 1,000 mcg PO DAILY [facility] Last Admin: 12/07/21 08:10 Dose: 1,000 mcg Documented by: Docusate Sodium (Docusate Sodium 100 Mg Capsule) 200 mg PO BEDTIME [facility] Last Admin: 12/06/21 21:26 Dose: 200 mg Documented by: Enoxaparin Sodium (Enoxaparin Sodium 40 Mg/0.4 Ml Syringe) 40 mg SUBCUT Q24H [facility] Last Admin: 12/06/21 11:53 Dose: 40 mg Documented by: Ferrous Sulfate (Ferrous Sulfate 324 Mg Tablet.Dr) 324 mg PO DAILY [facility] Last Admin: 12/07/21 08:10 Dose: 324 mg Documented by: Hydroxyzine HCl (Hydroxyzine Hcl 25 Mg Tablet) 25 mg PO BEDTIME PRN PRN Reason: Anxiety Last Admin: 12/04/21 22:55 Dose: 25 mg Documented by: Lorazepam (Lorazepam 1 Mg Tablet) 1 mg PO BID [facility] Last Admin: 12/07/21 08:11 Dose: 1 mg Documented by: Losartan Potassium (Losartan Potassium 25 Mg Tablet) 25 mg PO DAILY [facility]; Protocol Last Admin: 12/07/21 08:10 Dose: 25 mg Documented by: Lurasidone HCl (Lurasidone Hcl 80 Mg Tablet) 80 mg PO 1800 [facility] Last Admin: 12/06/21 17:59 Dose: 80 mg Documented by: Magnesium Hydroxide (Milk Of Magnesia 30 Ml Oral.Susp) 30 ml PO DAILY PRN PRN Reason: Constipation Metformin HCl (Metformin Hcl 1,000 Mg Tablet) 1,000 mg PO BID [facility] Last Admin: 12/07/21 08:10 Dose: 1,000 mg Documented by: Multivitamins/Vitamin C (Multivitamin Tablet) 1 tab PO DAILY [facility] Last Admin: 12/07/21 08:10 Dose: 1 tab Documented by: Non-Formulary Medication (Cinnamon) 1,000 mg PO DAILY [facility] Last Admin: 12/07/21 08:10 Dose: 1,000 mg Documented by: Patient Own Medication ( Empagliflozin 10 Mg) 1 each PO DAILY [facility] Last Admin: 12/07/21 08:10 Dose: 1 each Documented by: Patient Own Medication (Dwayne Red Softgels) 1 each PO DAILY [facility] Last Admin: 12/07/21 08:10 Dose: 1 each Documented by: Omeprazole (Omeprazole 20 Mg Capsule.) 20 mg PO DAILY@0630 [facility] Last Admin: 12/07/21 06:27 Dose: 20 mg Documented by: Ondansetron HCl (Ondansetron Odt 8 Mg Tab.Rapdis) 8 mg TRANSLINGU Q8H PRN PRN Reason: nausea Polyethylene Glycol (Polyethylene Glycol 3350 17 Gm Powd.Pack) 17 gm PO DAILY PRN PRN Reason: Constipation Last Admin: 11/06/21 12:24 Dose: 17 gm Documented by: Prazosin HCl (Prazosin Hcl 1 Mg Capsule) 1 mg PO BEDTIME PRN; Protocol PRN Reason: nightmares Last Admin: 12/04/21 22:53 Dose: 1 mg Documented by: Trazodone HCl (Trazodone Hcl 25 Mg Halftab) 75 mg PO BEDTIME PRN PRN Reason: Insomnia Last Admin: 12/06/21 21:29 Dose: 75 mg Documented by: Vitamin D (Cholecalciferol (Vitamin D3) 10 Mcg Tablet) 10 mcg PO DAILY [facility] Last Admin: 12/07/21 08:10 Dose: 10 mcg Documented by: Allergies Allergies Allergy/AdvReac Type Severity Reaction Status Date / Time lisinopril [LISINOPRIL] Allergy Unknown SWOLLEN Verified 09/17/21 08:42 LIPS, angioedema, swelling Assessment & Plan Assessment & Plan (1) Schizoaffective disorder: Status: Acute Code(s): F25.9 - Schizoaffective disorder, unspecified (2) Facial weakness: Status: Acute Code(s): R29.810 - Facial weakness (3) Encephalopathy: Status: Acute Code(s): G93.40 - Encephalopathy, unspecified Plan 50 yo female, hx of schizoaffective disorder, depressed with R breast cancer, having just completed first cycle of chemotherapy. Pt's partner and sister report to crisis team that pt has had a significant mental status change with psychotic symptoms, paranoia, perceptual alterations, poor sleep and significant thought blocking. Pt denies SI, HI. Today she is a very poor historian-almost pre-catatonic at times, considering signing a three day notice of intent. Team report by history she may not be comfortable in this facility. Assessment plan for 09/21/2021 Continue current medical treatment elevated white blood count noted over the past month question related to cancer treatment.? No evidence of infection Patient depressed withdrawn preoccupied patient with recent treatment for ductal carcinoma stress of this might certainly lead to depressive almost catatonic ep isode 09/22/21 Pt with thought blocking improved from yeterday have restarted wellbutin hosp did not have sr cont clozapine evaluate baseline denies self harm oob more 09/23/21 Continue current plan of care. Collateral contacts with OP team, oncology. 09/24/21 Increase Abilify to 30 mg daily Pt currently refusing Lorazepam TDN expires 09/25/21-will file for civil commitment if pt persists in wanting dis charge 09/25/21 Civil commitment filing completed Continue current regime. 09/26/21 Continue current regime 09/27/32 Decrease Abilify to 20 mg daily Risperdal 1.5 mg HS 09/28/21 Continue plan as above 09/29/21 No changes 09/30/21 Court 10/01/21 Chemotherapy 10/01/21 Increase Risperdal to 2.5 mg HS Decrease Abilify to 10 mg daily 10/02/21 Tolerating change back to Abilify from Risperdal Appetite is improved. Calmer, more visable, however continues with paranoia Jardiance ordered from [email or web address] pharmacy 10/03/21 Increase Abilify to 30 mg daily Will pursue validation of pt's HCP for continued chemotherapy Tentative chemotherapy 10/09. 10/04/21 Continue current regime 10/05 no changes to current regimen 10/06 no changes to current regimen 10/07/21 No positive effect from increase in Abilify Increase Clozaril to 100 mg bid, an increase of 50 mg daily, divided. Chemotherapy 10/09/21, Labs 10/08/21. 10/08/21 Tolerating Clozaril increase thus far Dexamethasone 4 mg hs and 4 mg a.m. pre chemo per Dr. Mora Support, encourage 10/09/21 Continue current plan of care 10/10/21 Continue current plan of care 10/11/21 Continue current plan. Will re-eval for Clozaril increase next week. 10/12/2021: Continue current regimen and plans.? No changes were made today 10/13/2021: Continue current plans and regimen. 10/14/21: Increase Clozaril to 125 mg bid ? EKG, CBCD, CMP 10/15 prior to chemotherapy 10/15/21: Continue current plan of care 10/16/21: Continue current plan. Tolerating Clozaril increase 10/17/21: Continue current regime. 10/18/21: Increase Clozaril to 150 mg bid ? Decrease Abilify to 20 mg daily ? ECT Consult 10/19/21: continue meds unchanged 10/20/21: pt continue to present as paranoid, withdrawn 10/21/21: Continue current regime. Labs/EKG 10/22. Some improvement today. 10/22/21: Labs/EKG WNL ? Meeting 10/24 with health care proxy's to discuss clozaril discontinuation ? ECT Consult 10/24/21: Continue current plan. 10/25/21: Continue current plan. 10/26: ECT may be indicated. Change Ativan to standing dose. 10/27 Increase Ativan to 1 mg TID and watch for sedation 10/28/21: CBCD, CMP, EKG 10/29/21 in preparation for chemotherapy ? Await Clozapine level results. 10/29/21: ECT consult 10/30 ? Chemotherapy 10/30 ? Await Clozapine level results. ? Tentative plan to taper Abilify, titrate Latuda. ? Family/HCP in agreement. Pt agrees as well. 10/30/21: Decrease Abilify to 10 mg daily to prepare to begin Latuda 10/31/21: Continue current plan. 11/01/21: Discontinue Abilify ? Latuda 20 mg 1800 11/02/21:? Continue current treatment plan 11/03/21:? Continue current treatment plan 11/04/21: Tolerating Latuda. Pt asks not to titrate yet. Some improvement noted. 11/05/21: Chemotherapy 11/06. Ready to titrate Latuda-family will discuss with pt. Thus far, a positive result, without adverse effect. ? EKG reading pending ? Sister will not be taking pt to chemotherapy on 11/06 as her son has tested positive for COVID this afternoon. Partner Kailey will accompany pt. along with team. 11/06/21: Increase Latuda to 40 mg daily after evening meal. ? Increase Colace to 200 mg hs ? Miralax prn ? Per nursing report, pt will no longer need steroid dosing on Tuesdays before chemotherapy, but will receive dosing on Wednesdays in the chemotherapy dept. 11/07/21: Continue current plan. 11/08/21: Change Lorazepam prn to 1 mg bid 11/09/21: Tolerating Lorazepam. Continue plan of care. 11/10/21: Considering Latuda increase. 11/11/21: Increase Latuda to 60 mg daily. Labs pre chemotherapy. 11/12/21: Continue current plan. Care discussed with HCP Kailey- review of Ativan dosing, therapeutic Latuda dosing,pt's not understanding that her thought blocking, paranoia, belief that she will go to shelter are target sx for medication increase. 11/14/21: Continue current plan. Discharge planning with consistent improvement. 11/15/21: continue current medications per primary treatment team. 11/16/2021 Patient seen in psychiatric follow-up patient depressed withdrawn hopeless help less despondent again discussed option of ECT 11/17/2021 Patient's case reviewed with nursing staff.? Patient seen.? Patient somewhat with cardoso affect today less withdrawn able to engage in discussion regarding Latuda and possibility of ECT treatment.? Continue clozapine Latuda 11/18- discussed with significant other possibility of: underlying paraneoplastic syndrome related to breast carcinona- mainly 4 antibodies have been related to this type of cancer (ENGINEERING [employer]ORATORY TECHNICIAN-2, Anti-yo (ENGINEERING LABORATORY TECHNICIAN-1); Anti-RI (corona-2); and antiamphiphysin) mostly causing cerebellar disfunction including opsoclonus (and myoclonus) which pt appears to have along with other cognitive and psychiatric symptoms. Will order MRI- r/o encephalitis related to chemo or any limbic/cerebellar pathology. Sent message to oncologist. Pt does psychiatric condition appears to significantly improved with dexamethaxone. Also if classic paraneoplastic, which is the one mostly related to cancer tumors,? serum antibodies testing may suffice (without CSF testing).? 11/19 continue current medications- pending mri, paraneoplastic panel. 11/20- continue current medications, pending discussion with oncology re: paraneoplastic syndome, pending MRI 11/21 will d/c wellbutrin as it can worsen psychosis. continue all other meds. MRI shows microvascular changes and atrophy- moca at this time wouldn't be accurate given prominent psych symptoms. 11/22 continue current medications. 11/23 continue tx plan. 11/24 continue tx plan 11/25/21-Continue current plan 11/26/21-Chemotherapy 11/27/21. Continue current plan 11/27/21- Continue current regime. Pt reports feeling tired after her treatment today. Labs pending. Pt discussing wanting to go home. 11/28- continue current tx. 11/29/21- Continue current plan of care. 11/30 continue current treatment plan 12/01 continue current treatment plan; patient brighter and more engaging then before 12/02 continue current medications. 12/04/21 Continue current regime. Tolerating Latuda increase on 12/03. 12/05/21 Increase Trazodone to 75 mg HS per pt request. 12/06/21 Continue current regime. 12/07/2021. Continue current regimen and plans I spent minutes with the patient and/or on the patient floor today, greater than?50% of which was spent counseling/coordinating care. Reason for contiued inpatient stay Substantial Risk for: med/psych decompensation
[2021-12-07] MEDS: Enoxaparin Sodium 40 MG/0.4 ML SYRINGE SUBCUT (12:12)
[2021-12-07] MEDS: Lurasidone HCl 80 MG TABLET PO (18:27)
[2021-12-07] MEDS: Atorvastatin Calcium 10 MG TABLET 5 MG PO (21:13)
[2021-12-07] MEDS: Docusate Sodium 100 MG CAPSULE 200 MG PO (21:13)
[2021-12-07 21:15] VITALS: BP 140/85; PULSE 80
[2021-12-07] MEDS: traZODone HCL 25 MG HALFTAB 75 MG PO (21:16)
[2021-12-08] MEDS: Omeprazole 20 MG CAPSULE.DR PO (06:18)
[2021-12-08 06:27] LABS: Glucose, Whole Blood 133 mg/dL (60-115)
[2021-12-08] MEDS: cloNIDine HCL 0.1 MG TABLET PO ×2 (08:49→20:40)
[2021-12-08] MEDS: Cyanocobalamin (Vitamin B-12) 1,000 MCG TABLET 1000 MCG PO (08:49)
[2021-12-08] MEDS: Ascorbic Acid 500 MG TABLET 1000 MG PO (08:49)
[2021-12-08] MEDS: Multivitamin TABLET 1 TAB PO (08:50)
[2021-12-08] MEDS: Cholecalciferol (Vitamin D3) 10 MCG TABLET PO (08:50)
[2021-12-08] MEDS: cloZAPine 100 MG TABLET 150 MG PO ×2 (08:50→20:38)
[2021-12-08] MEDS: metFORMIN HCl 1,000 MG TABLET 1000 MG PO ×2 (08:50→20:41)
[2021-12-08] MEDS: Losartan Potassium 25 MG TABLET PO (08:50)
[2021-12-08] MEDS: Ferrous Sulfate 324 MG TABLET.DR PO (08:50)
[2021-12-08 08:55] VITALS: BP 137/85; PULSE 110; RESP 18; TEMP 36.3; O2SAT 98
--- NOTE | 2021-12-08 09:01 | P.PNPSI_ITS ---
Subjective Subjective Date of Service: 12/08/21 Reason For Visit: Depression paranoia Subjective Notes: Section [employer] Healthcare Proxy: No Guardianship: No Medical Problems Affecting Mental Status: No Interim History: Patient was seen and discussed in rounds today. Records and plans were yosef bean. She has been stable. She is little more interactive and was able to reality check, some facts. She is up and around a little more. She addressed me by name for the 1st time even before I introduced myself!. No complaints. No side effects. No changes were made today Medication Compliance: Yes Side effects from medications: No Review of Systems Review of Systems Yes all other systems are reviewed and are negative Reports memory loss Psychiatric: Reports abnormal sleep pattern, Reports anxiety, Reports difficulty concentrating, Reports memory loss and Reports suicidal ideation (denies) Mental Status Exam Mental Status Exam Narrative: In today's visit she is alert, oriented. She address me correctly by my name, before I even introduced myself today. Speech is very soft spoken. Better eye contact. Affect is constricted. Cognitively she has paucity of thought. Slowed thought processes. No SI. No acute signs of psychosis. Judgment is marginal. Diagnostics Vital Signs (24Hr): Vital Signs - 24 hr 12/07/21 21:15 12/08/21 08:55 Temperature 97.4 F Pulse Rate 80 110 H Respiratory Rate 18 Blood Pressure 140/85 H 137/85 Pulse Oximetry 98 BMI result Body Mass Index 30.5 Labs Results: 12/03/21 08:34 12/03/21 08:34 Labs: Laboratory Results - last 48 hr 12/07/21 12/08/21 06:29 06:21 POC Glucose 136 H 133 H Imaging Radiology Impressions: ITS Impressions Brain MRI 11/20/21 13:00 IMPRESSION: 1. No acute intracranial abnormalities. 2. Mild underlying microangiopathy and generalized cerebral volume loss. Medications Medications Current Medications Acetaminophen (Acetaminophen 325 Mg Tablet) 650 mg PO Q6H PRN PRN Reason: Headache/Pain Mild Scale (1-3) Last Admin: 11/22/21 08:44 Dose: 650 mg Documented by: Al Hydroxide/Mg Hydroxide (Magnesium Hydrox/Alum Hydrox 30 Ml Oral.Susp) 30 ml PO Q6H PRN PRN Reason: Heartburn/Nausea Last Admin: 10/02/21 14:41 Dose: 30 ml Documented by: Ascorbic Acid (Ascorbic Acid 500 Mg Tablet) 1,000 mg PO DAILY [facility] Last Admin: 12/08/21 08:49 Dose: 1,000 mg Documented by: Atorvastatin Calcium (Atorvastatin Calcium 10 Mg Tablet) 5 mg PO BEDTIME [facility] Last Admin: 12/07/21 21:13 Dose: 5 mg Documented by: Clonidine HCl (Clonidine Hcl 0.1 Mg Tablet) 0.1 mg PO BID [facility]; Protocol Last Admin: 12/08/21 08:49 Dose: 0.1 mg Documented by: Clozapine (Clozapine 100 Mg Tablet) 150 mg PO BID [facility] Last Admin: 12/08/21 08:50 Dose: 150 mg Documented by: Cyanocobalamin (Cyanocobalamin (Vitamin B-12) 1,000 Mcg Tablet) 1,000 mcg PO DAILY [facility] Last Admin: 12/08/21 08:49 Dose: 1,000 mcg Documented by: Docusate Sodium (Docusate Sodium 100 Mg Capsule) 200 mg PO BEDTIME [facility] Last Admin: 12/07/21 21:13 Dose: 200 mg Documented by: Enoxaparin Sodium (Enoxaparin Sodium 40 Mg/0.4 Ml Syringe) 40 mg SUBCUT Q24H SC H Last Admin: 12/07/21 12:12 Dose: 40 mg Documented by: Ferrous Sulfate (Ferrous Sulfate 324 Mg Tablet.Dr) 324 mg PO DAILY [facility] Last Admin: 12/08/21 08:50 Dose: 324 mg Documented by: Hydroxyzine HCl (Hydroxyzine Hcl 25 Mg Tablet) 25 mg PO BEDTIME PRN PRN Reason: Anxiety Last Admin: 12/04/21 22:55 Dose: 25 mg Documented by: Losartan Potassium (Losartan Potassium 25 Mg Tablet) 25 mg PO DAILY [facility]; Protocol Last Admin: 12/08/21 08:50 Dose: 25 mg Documented by: Lurasidone HCl (Lurasidone Hcl 80 Mg Tablet) 80 mg PO 1800 [facility] Last Admin: 12/07/21 18:27 Dose: 80 mg Documented by: Magnesium Hydroxide (Milk Of Magnesia 30 Ml Oral.Susp) 30 ml PO DAILY PRN PRN Reason: Constipation Metformin HCl (Metformin Hcl 1,000 Mg Tablet) 1,000 mg PO BID [facility] Last Admin: 12/08/21 08:50 Dose: 1,000 mg Documented by: Multivitamins/Vitamin C (Multivitamin Tablet) 1 tab PO DAILY [facility] Last Admin: 12/08/21 08:50 Dose: 1 tab Documented by: Non-Formulary Medication (Cinnamon) 1,000 mg PO DAILY [facility] Last Admin: 12/08/21 08:49 Dose: 1,000 mg Documented by: Patient Own Medication ( Empagliflozin 10 Mg) 1 each PO DAILY [facility] Last Admin: 12/08/21 08:49 Dose: 1 each Documented by: Patient Own Medication (Dwayne Red Softgels) 1 each PO DAILY [facility] Last Admin: 12/08/21 08:49 Dose: 1 each Documented by: Omeprazole (Omeprazole 20 Mg Capsule.Dr) 20 mg PO DAILY@0630 [facility] Last Admin: 12/08/21 06:18 Dose: 20 mg Documented by: Ondansetron HCl (Ondansetron Odt 8 Mg Tab.Rapdis) 8 mg TRANSLINGU Q8H PRN PRN Reason: nausea Polyethylene Glycol (Polyethylene Glycol 3350 17 Gm Powd.Pack) 17 gm PO DAILY PRN PRN Reason: Constipation Last Admin: 11/06/21 12:24 Dose: 17 gm Documented by: Prazosin HCl (Prazosin Hcl 1 Mg Capsule) 1 mg PO BEDTIME PRN; Protocol PRN Reason: nightmares Last Admin: 12/04/21 22:53 Dose: 1 mg Documented by: Trazodone HCl (Trazodone Hcl 25 Mg Halftab) 75 mg PO BEDTIME PRN PRN Reason: Insomnia Last Admin: 12/07/21 21:16 Dose: 75 mg Documented by: Vitamin D (Cholecalciferol (Vitamin D3) 10 Mcg Tablet) 10 mcg PO DAILY [facility] Last Admin: 12/08/21 08:50 Dose: 10 mcg Documented by: Allergies Allergies Allergy/AdvReac Type Severity Reaction Status Date / Time lisinopril [LISINOPRIL] Allergy Unknown SWOLLEN Verified 09/17/21 08:42 LIPS, angioedema, swelling Assessment & Plan Assessment & Plan (1) Schizoaffective disorder: Status: Acute Code(s): F25.9 - Schizoaffective disorder, unspecified (2) Facial weakness: Status: Acute Code(s): R29.810 - Facial weakness (3) Encephalopathy: Status: Acute Code(s): G93.40 - Encephalopathy, unspecified Plan 50 yo female, hx of schizoaffective disorder, depressed with R breast cancer, having just completed first cycle of chemotherapy. Pt's partner and sister report to crisis team that pt has had a significant mental status change with psychotic symptoms, paranoia, perceptual alterations, poor sleep and significant thought blocking. Pt denies SI, HI. Today she is a very poor historian-almost pre-catatonic at times, considering signing a three day notice of intent. Team report by history she may not be comfortable in this facility. Assessment plan for 09/21/2021 Continue current medical treatment elevated white blood count noted over the past month question related to cancer treatment.? No evidence of infection Patient depressed withdrawn preoccupied patient with recent treatment for ductal carcinoma stress of this might certainly lead to depressive almost catatonic episode 09/22/21 Pt with thought blocking improved from yeterday have restarted wellbutin hosp did not have sr cont clozapine evaluate baseline denies self harm oob more 09/23/21 Continue current plan of care. Collateral contacts with OP team, oncology. 09/24/21 Increase Abilify to 30 mg daily Pt currently refusing Lorazepam TDN expires 09/25/21-will file for civil commitment if pt persists in wanting discharge 09/25/21 Civil commitment filing completed Continue current regime. 09/26/21 Continue current regime 09/27/32 Decrease Abilify to 20 mg daily Risperdal 1.5 mg HS 09/28/21 Continue plan as above 09/29/21 No changes 09/30/21 Court 10/01/21 Chemotherapy 10/01/21 Increase Risperdal to 2.5 mg HS Decrease Abilify to 10 mg daily 10/02/21 Tolerating change back to Abilify from Risperdal Appetite is improved. Calmer, more visable, however continues with paranoia Jardiance ordered from [facility] 10/03/21 Increase Abilify to 30 mg daily Will pursue validation of pt's HCP for continued chemotherapy Tentative chemotherapy 10/09. 10/04/21 Continue current regime 10/05 no changes to current regimen 10/06 no changes to current regimen 10/07/21 No positive effect from increase in Abilify Increase Clozaril to 100 mg bid, an increase of 50 mg daily, divided. Chemotherapy 10/09/21, Labs 10/08/21. 10/08/21 Tolerating Clozaril increase thus far Dexamethasone 4 mg hs and 4 mg a.m. pre chemo per Dr. Mora Support, encourage 10/09/21 Continue current plan of care 10/10/21 Continue current plan of care 10/11/21 Continue current plan. Will re-eval for Clozaril increase next week. 10/12/2021: Continue current regimen and plans.? No changes were made today 10/13/2021: Continue current plans and regimen. 10/14/21: Increase Clozaril to 125 mg bid ? EKG, CBCD, CMP 10/15 prior to chemotherapy 10/15/21: Continue current plan of care 10/16/21: Continue current plan. Tolerating Clozaril increase 10/17/21: Continue current regime. 10/18/21: Increase Clozaril to 150 mg bid ? Decrease Abilify to 20 mg daily ? ECT Consult 10/19/21: continue meds unchanged 10/20/21: pt continue to present as paranoid, withdrawn 10/21/21: Continue current regime. Labs/EKG 10/22. Some improvement today. 10/22/21: Labs/EKG WNL ? Meeting 10/24 with health care proxy's to discuss clozaril discontinuation ? ECT Consult 10/24/21: Continue current plan. 10/25/21: Continue current plan. 10/26: ECT may be indicated. Change Ativan to standing dose. 10/27 Increase Ativan to 1 mg TID and watch for sedation 10/28/21: CBCD, CMP, EKG 10/29/21 in preparation for chemotherapy ? Await Clozapine level results. 10/29/21: ECT consult 10/30 ? Chemotherapy 10/30 ? Await Clozapine level results. ? Tentative plan to taper Abilify, titrate Latuda. ? Family/HCP in agreement. Pt agrees as well. 10/30/21: Decrease Abilify to 10 mg daily to prepare to begin Latuda 10/31/21: Continue current plan. 11/01/21: Discontinue Abilify ? Latuda 20 mg 1800 11/02/21:? Continue current treatment plan 11/03/21:? Continue current treatment plan 11/04/21: Tolerating Latuda. Pt asks not to titrate yet. Some improvement noted. 11/05/21: Chemotherapy 11/06. Ready to titrate Latuda-family will discuss with pt. Thus far, a positive result, without adverse effect. ? EKG reading pending ? Sister will not be taking pt to chemotherapy on 11/06 as her son has tested positive for COVID this afternoon. Partner Kailey will accompany pt. along with team. 11/06/21: Increase Latuda to 40 mg daily after evening meal. ? Increase Colace to 200 mg hs ? Miralax prn ? Per nursing report, pt will no longer need steroid dosing on Tuesdays before chemotherapy, but will receive dosing on Wednesdays in the chemotherapy dept. 11/07/21: Continue current plan. 11/08/21: Change Lorazepam prn to 1 mg bid 11/09/21: Tolerating Lorazepam. Continue plan of care. 11/10/21: Considering Latuda increase. 11/11/21: Increase Latuda to 60 mg daily. Labs pre chemotherapy. 11/12/21: Continue current plan. Care discussed with HCP Kailey- review of Ativan dosing, therapeutic Latuda dosing,pt's not understanding that her thought blocking, paranoia, belief that she will go to [facility] are target sx for medication increase. 11/14/21: Continue current plan. Discharge planning with consistent improvement. 11/15/21: continue current medications per primary treatment team. 11/16/2021 Patient seen in psychiatric follow-up patient depressed withdrawn hopeless helpless despondent again discussed option of ECT 11/17/2021 Patient's case reviewed with nursing staff.? Patient seen.? Patient somewhat with cardoso affect today less withdrawn able to engage in discussion regarding Latuda and possibility of ECT treatment.? Continue clozapine Latuda 11/18- discussed with significant other possibility of: underlying paraneoplastic syndrome related to breast carcinona- mainly 4 antibodies have been related to this type of cancer ([employer]-2, Anti-yo ([employer]-1); Anti-RI (corona-2); and antiam phiphysin) mostly causing cerebellar disfunction including opsoclonus (and myoclonus) which pt appears to have along with other cognitive and psychiatric symptoms. Will order MRI- r/o encephalitis related to chemo or any limbic/cerebellar pathology. Sent message to oncologist. Pt does psychiatric co ndition appears to significantly improved with dexamethaxone. Also if classic paraneoplastic, which is the one mostly related to cancer tumors,? serum antibodies testing may suffice (without CSF testing).? 11/19 continue current medications- pending mri, paraneoplastic panel. 11/20- continue current medications, pending discussion with oncology re: paraneoplastic syndome, pending MRI 11/21 will d/c wellbutrin as it can worsen psychosis. continue all other meds. MRI shows microvascular changes and atrophy- moca at this time wouldn't be accurate given prominent psych symptoms. 11/22 continue current medications. 11/23 continue tx plan. 11/24 continue tx plan 11/25/21-Continue current plan 11/26/21-Chemotherapy 11/27/21. Continue current plan 11/27/21- Continue current regime. Pt reports feeling tired after her treatment today. Labs pending. Pt discussing wanting to go home. 11/28- continue current tx. 11/29/21- Continue current plan of care. 11/30 continue current treatment plan 12/01 continue current treatment plan; patient brighter and more engaging then before 12/02 continue current medications. 12/04/21 Continue current regime. Tolerating Latuda increase on 12/03. 12/05/21 Increase Trazodone to 75 mg HS per pt request. 12/06/21 Continue current regime. 12/07/2021. Continue current regimen and plans 12/08/2021: Continue current plans and regimen I spent minutes with the patient and/or on the patient floor today, greater than?50% of which was spent counseling/coordinating care. Reason for contiued inpatient stay Substantial Risk for: med/psych decompensation
[2021-12-08] MEDS: Enoxaparin Sodium 40 MG/0.4 ML SYRINGE SUBCUT (10:57)
[2021-12-08] MEDS: Lurasidone HCl 80 MG TABLET PO (18:11)
[2021-12-08 20:10] VITALS: BP 156/84; PULSE 122; TEMP 36.4
[2021-12-08] MEDS: Atorvastatin Calcium 10 MG TABLET 5 MG PO (20:39)
[2021-12-08] MEDS: Docusate Sodium 100 MG CAPSULE 200 MG PO (20:40)
[2021-12-08] MEDS: traZODone HCL 25 MG HALFTAB 75 MG PO (20:45)
[2021-12-09 06:00] VITALS: BP 148/92; PULSE 133; RESP 16; TEMP 35.8; O2SAT 97
[2021-12-09] MEDS: Omeprazole 20 MG CAPSULE.DR PO (06:28)
[2021-12-09 06:44] LABS: Glucose, Whole Blood 158 mg/dL (60-115)
[2021-12-09] MEDS: Ferrous Sulfate 324 MG TABLET.DR PO (08:49)
[2021-12-09] MEDS: Cholecalciferol (Vitamin D3) 10 MCG TABLET PO (08:49)
[2021-12-09] MEDS: Ascorbic Acid 500 MG TABLET 1000 MG PO (08:49)
[2021-12-09] MEDS: Multivitamin TABLET 1 TAB PO (08:49)
[2021-12-09] MEDS: Losartan Potassium 25 MG TABLET PO (08:49)
[2021-12-09] MEDS: cloNIDine HCL 0.1 MG TABLET PO ×2 (08:49→21:57)
[2021-12-09] MEDS: metFORMIN HCl 1,000 MG TABLET 1000 MG PO ×2 (08:49→21:57)
[2021-12-09] MEDS: Cyanocobalamin (Vitamin B-12) 1,000 MCG TABLET 1000 MCG PO (08:50)
[2021-12-09] MEDS: cloZAPine 100 MG TABLET 150 MG PO ×2 (08:50→21:57)
[2021-12-09] MEDS: Enoxaparin Sodium 40 MG/0.4 ML SYRINGE SUBCUT (11:56)
[2021-12-09] MEDS: LORazepam 1 MG TABLET PO ×2 (14:51→21:57)
--- NOTE | 2021-12-09 17:14 | HO.PSYCHPN ---
Subjective Subjective Date of Service: 12/09/21 Reason For Visit: Depression paranoia Interim History: Patient seen and discussed with team. Patient evaluated today and upon interview she was found in the milieu playing a card game. She reports she had a rough morning due to noticing her hands were trembling, says this caused anxiety, although it is unclear if anxiety was a precipitant. Says she is now doing a little bit better. Willin to trial clonidine 0.1 mg QD PRN, as she reports benefit on scheduled clonidine for anxiety. Says sleep is better on increased trazodone dose but still feels like im up a lot, declined dose increase. Energy is 'js there. Says she tried to fill out a weekly planner/scheduler but found this too difficult to keep track of. Had meeting today with [facility], says this went well. In the milieu, patient is safe and appropriate in behavior. Says she feels safe. Medication Compliance: Yes Side effects from medications: No Attending Groups: Intermittent Review of Systems Acute medical concerns: No Medical Review of Systems: unchanged Mental Status Exam Mental Status Exam Narrative: Patient Appearance:?Appropriate Patient Orientation:?Person, Place, Time and Situation Level of Consciousness:?Alert Patient Behavior:?Appropriate, Talkative, Cooperative and Good Eye Contact Mood Description:?Anxious Affect Description:?Anxious Patient Cognition Impaired:?Yes Ability to Follow Directions:?Good Speech Pattern:?Spontaneous Speech Memory Description:?Episodic Impaired Hallucinations:?None Delusions:?Paranoid Ideation Thought Process:?Distracted and Confusion Thought Content:?positive for Irving, positive for Circumstantial, positive for Goal Oriented and positive for Slowed Thinking Depressive Symptoms:?Difficulty Sleeping and Difficulty Concentrating Judgement:?Fair Diagnostics Vital Signs (24Hr): Vital Signs - 24 hr 12/08/21 20:10 12/09/21 06:00 Temperature 97.5 F 96.4 F L Pulse Rate 122 H 133 H Respiratory Rate 16 Blood Pressure 156/84 H 148/92 H Pulse Oximetry 97 BMI result Body Mass Index 30.5 Labs Results: 12/03/21 08:34 12/03/21 08:34 Labs: Laboratory Results - last 48 hr 12/08/21 12/09/21 06:21 06:27 POC Glucose 133 H 158 H Imaging Radiology Impressions: ITS Impressions Brain MRI 11/20/21 13:00 IMPRESSION: 1. No acute intracranial abnormalities. 2. Mild underlying microangiopathy and generalized cerebral volume loss. Medications Medications Current Medications Acetaminophen (Acetaminophen 325 Mg Tablet) 650 mg PO Q6H PRN PRN Reason: Headache/Pain Mild Scale (1-3) Last Admin: 11/22/21 08:44 Dose: 650 mg Documented by: Al Hydroxide/Mg Hydroxide (Magnesium Hydrox/Alum Hydrox 30 Ml Oral.Susp) 30 ml PO Q6H PRN PRN Reason: Heartburn/Nausea Last Admin: 10/02/21 14:41 Dose: 30 ml Documented by: Ascorbic Acid (Ascorbic Acid 500 Mg Tablet) 1,000 mg PO DAILY [facility] Last Admin: 12/09/21 08:49 Dose: 1,000 mg Documented by: Atorvastatin Calcium (Atorvastatin Calcium 10 Mg Tablet) 5 mg PO BEDTIME [facility] Last Admin: 12/08/21 20:39 Dose: 5 mg Documented by: Clonidine HCl (Clonidine Hcl 0.1 Mg Tablet) 0.1 mg PO BID [facility]; Protocol Last Admin: 12/09/21 08:49 Dose: 0.1 mg Documented by: Clozapine (Clozapine 100 Mg Tablet) 150 mg PO BID [facility] Last Admin: 12/09/21 08:50 Dose: 150 mg Documented by: Cyanocobalamin (Cyanocobalamin (Vitamin B-12) 1,000 Mcg Tablet) 1,000 mcg PO DAILY [facility] Last Admin: 12/09/21 08:50 Dose: 1,000 mcg Documented by: Docusate Sodium (Docusate Sodium 100 Mg Capsule) 200 mg PO BEDTIME [facility] Last Admin: 12/08/21 20:40 Dose: 200 mg Documented by: Enoxaparin Sodium (Enoxaparin Sodium 40 Mg/0.4 Ml Syringe) 40 mg SUBCUT Q24H [facility] Last Admin: 12/09/21 11:56 Dose: 40 mg Documented by: Ferrous Sulfate (Ferrous Sulfate 324 Mg Tablet.Dr) 324 mg PO DAILY [facility] Last Admin: 12/09/21 08:49 Dose: 324 mg Documented by: Hydroxyzine HCl (Hydroxyzine Hcl 25 Mg Tablet) 25 mg PO BEDTIME PRN PRN Reason: Anxiety Last Admin: 12/04/21 22:55 Dose: 25 mg Documented by: Lorazepam (Lorazepam 1 Mg Tablet) 1 mg PO BID [facility] Last Admin: 12/09/21 14:51 Dose: 1 mg Documented by: Losartan Potassium (Losartan Potassium 25 Mg Tablet) 25 mg PO DAILY [facility]; Protocol Last Admin: 12/09/21 08:49 Dose: 25 mg Documented by: Lurasidone HCl (Lurasidone Hcl 80 Mg Tablet) 80 mg PO 1800 [facility] Last Admin: 12/08/21 18:11 Dose: 80 mg Documented by: Magnesium Hydroxide (Milk Of Magnesia 30 Ml Oral.Susp) 30 ml PO DAILY PRN PRN Reason: Constipation Metformin HCl (Metformin Hcl 1,000 Mg Tablet) 1,000 mg PO BID [facility] Last Admin: 12/09/21 08:49 Dose: 1,000 mg Documented by: Multivitamins/Vitamin C (Multivitamin Tablet) 1 tab PO DAILY [facility] Last Admin: 12/09/21 08:49 Dose: 1 tab Documented by: Non-Formulary Medication (Cinnamon) 1,000 mg PO DAILY [facility] Last Admin: 12/09/21 08:49 Dose: 1,000 mg Documented by: Patient Own Medication ( Empagliflozin 10 Mg) 1 each PO DAILY [facility] Last Admin: 12/09/21 08:49 Dose: 1 each Documented by: Patient Own Medication (Dwayne Red Softgels) 1 each PO DAILY [facility] Last Admin: 12/09/21 08:49 Dose: 1 each Documented by: Omeprazole (Omeprazole 20 Mg Capsule.Dr) 20 mg PO DAILY@0630 [facility] Last Admin: 12/09/21 06:28 Dose: 20 mg Documented by: Ondansetron HCl (Ondansetron Odt 8 Mg Tab.Rapdis) 8 mg TRANSLINGU Q8H PRN PRN Reason: nausea Polyethylene Glycol (Polyethylene Glycol 3350 17 Gm Powd.Pack) 17 gm PO DAILY PRN PRN Reason: Constipation Last Admin: 11/06/21 12:24 Dose: 17 gm Documented by: Prazosin HCl (Prazosin Hcl 1 Mg Capsule) 1 mg PO BEDTIME PRN; Protocol PRN Reason: nightmares Last Admin: 12/04/21 22:53 Dose: 1 mg Documented by: Trazodone HCl (Trazodone Hcl 25 Mg Halftab) 75 mg PO BEDTIME PRN PRN Reason: Insomnia Last Admin: 12/08/21 20:45 Dose: 75 mg Documented by: Vitamin D (Cholecalciferol (Vitamin D3) 10 Mcg Tablet) 10 mcg PO DAILY [facility] Last Admin: 12/09/21 08:49 Dose: 10 mcg Documented by: Allergies Allergies Allergy/AdvReac Type Severity Reaction Status Date / Time lisinopril [LISINOPRIL] Allergy Unknown SWOLLEN Verified 09/17/21 08:42 LIPS, angioedema, swelling Assessment & Plan Assessment & Plan (1) Schizoaffective disorder: Status: Acute Code(s): F25.9 - Schizoaffective disorder, unspecified (2) Facial weakness: Status: Acute Code(s): R29.810 - Facial weakness (3) Encephalopathy: Status: Acute Code(s): G93.40 - Encephalopathy, unspecified Plan 50 yo female, hx of schizoaffective disorder, depressed with R breast cancer, having just completed first cycle of chemotherapy. Pt's partner and sister report to crisis team that pt has had a significant mental status change with psychotic symptoms, paranoia, perceptual alterations, poor sleep and significant thought blocking. Pt denies SI, HI. Today she is a very poor historian-almost pre-catatonic at times, considering signing a three day notice of intent. Team report by history she may not be comfortable in this facility. Assessment plan for 09/21/2021 Continue current medical treatment elevated white blood count noted over the past month question related to cancer treatment.? No evidence of infection Patient depressed withdrawn preoccupied patient with recent treatment for ductal carcinoma stress of this might certainly lead to depressive almost catatonic episode 09/22/21 Pt with thought blocking improved from yeterday have restarted wellbutin hosp did not have sr cont clozapine evaluate baseline denies self harm oob more 09/23/21 Continue current plan of care. Collateral contacts with OP team, oncology. 09/24/21 Increase Abilify to 30 mg daily Pt currently refusing Lorazepam TDN expires 09/25/21-will file for civil commitment if pt persists in wanting discharge 09/25/21 Civil commitment filing completed Continue current regime. 09/26/21 Continue current regime 09/27/32 Decrease Abilify to 20 mg daily Risperdal 1.5 mg HS 09/28/21 Continue plan as above 09/29/21 No changes 09/30/21 Court 10/01/21 Chemotherapy 10/01/21 Increase Risperdal to 2.5 mg HS Decrease Abilify to 10 mg daily 10/02/21 Tolerating change back to Abilify from Risperdal Appetite is improved. Calmer, more visable, however continues with paranoia Jardiance ordered from [facility] 10/03/21 Increase Abilify to 30 mg daily Will pursue validation of pt's HCP for continued chemotherapy Tentative chemotherapy 10/09. 10/04/21 Continue current regime 10/05 no changes to current regimen 10/06 no changes to current regimen 10/07/21 No positive effect from increase in Abilify Increase Clozaril to 100 mg bid, an increase of 50 mg daily, divided. Chemotherapy 10/09/21, Labs 10/08/21. 10/08/21 Tolerating Clozaril increase thus far Dexamethasone 4 mg hs and 4 mg a.m. pre chemo per Dr. Mora Support, encourage 10/09/21 Continue current plan of care 10/10/21 Continue current plan of care 10/11/21 Continue current plan. Will re-eval for Clozaril increase next week. 10/12/2021: Continue current regimen and plans.? No changes were made today 10/13/2021: Continue current plans and regimen. 10/14/21: Increase Clozaril to 125 mg bid ? EKG, CBCD, CMP 10/15 prior to chemotherapy 10/15/21: Continue current plan of care 10/16/21: Continue current plan. Tolerating Clozaril increase 10/17/21: Continue current regime. 10/18/21: Increase Clozaril to 150 mg bid ? Decrease Abilify to 20 mg daily ? ECT Consult 10/19/21: continue meds unchanged 10/20/21: pt continue to present as paranoid, withdrawn 10/21/21: Continue current regime. Labs/EKG 10/22. Some improvement today. 10/22/21: Labs/EKG WNL ? Meeting 10/24 with health care proxy's to discuss clozaril discontinuation ? ECT Consult 10/24/21: Continue current plan. 10/25/21: Continue current plan. 10/26: ECT may be indicated. Change Ativan to standing dose. 10/27 Increase Ativan to 1 mg TID and watch for sedation 10/28/21: CBCD, CMP, EKG 10/29/21 in preparation for chemotherapy ? Await Clozapine level results. 10/29/21: ECT consult 10/30 ? Chemotherapy 10/30 ? Await Clozapine level results. ? Tentative plan to taper Abilify, titrate Latuda. ? Family/HCP in agreement. Pt agrees as well. 10/30/21: Decrease Abilify to 10 mg daily to prepare to begin Latuda 10/31/21: Continue current plan. 11/01/21: Discontinue Abilify ? Latuda 20 mg 1800 11/02/21:? Continue current treatment plan 11/03/21:? Continue current treatment plan 11/04/21: Tolerating Latuda. Pt asks not to titrate yet. Some improvement noted. 11/05/21: Chemotherapy 11/06. Ready to titrate Latuda-family will discuss with pt. Thus far, a positive result, without adverse effect. ? EKG reading pending ? Sister will not be taking pt to chemotherapy on 11/06 as her son has tested positive for COVID this afternoon. Partner Kailey will accompany pt. along with team. 11/06/21: Increase Latuda to 40 mg daily after evening meal. ? Increase Colace to 200 mg hs ? Miralax prn ? Per nursing report, pt will no longer need steroid dosing on Tuesdays before chemotherapy, but will receive dosing on Wednesdays in the chemotherapy dept. 11/07/21: Continue current plan. 11/08/21: Change Lorazepam prn to 1 mg bid 11/09/21: Tolerating Lorazepam. Continue plan of care. 11/10/21: Considering Latuda increase. 11/11/21: Increase Latuda to 60 mg daily. Labs pre chemotherapy. 11/12/21: Continue current plan. Care discussed with HCP Kailey- review of Ativan dosing, therapeutic Latuda dosing,pt's not understanding that her thought blocking, paranoia, belief that she will go to long-term are target sx for medication increase. 11/14/21: Continue current plan. Discharge planning with consistent improvement. 11/15/21: continue current medications per primary treatment team. 11/16/2021 Patient seen in psychiatric follow-up patient depressed withdrawn hopeless helpless despondent again discussed option of ECT 11/17/2021 Patient's case reviewed with nursing staff.? Patient seen.? Patient somewhat with cardoso affect today less withdrawn able to engage in discussion regarding Latuda and possibility of ECT treatment.? Continue clozapine Latuda 11/18- discussed with significant other possibility of: underlying paraneoplastic syndrome related to breast carcinona- mainly 4 antibodies have been related to this type of cancer (CAR GREASER-2, Anti-yo (CAR GREASER-1); Anti-RI (corona-2); and antiamphiphysin) mostly causing cerebellar disfunction including opsoclonus (and myoclonus) which pt appears to have along with other cognitive and psychiatric symptoms. Will order MRI- r/o encephalitis related to chemo or any limbic/cerebellar pathology. Sent message to oncologist. Pt does psychiatric condition appears to significantly improved with dexamethaxone. Also if classic paraneoplastic, which is the one mostly related to cancer tumors,? serum antibodies testing may suffice (without CSF testing).? 11/19 continue current medications- pending mri, paraneoplastic panel. 11/20- continue current medications, pending discussion with oncology re: paraneoplastic syndome, pending MRI 11/21 will d/c wellbutrin as it can worsen psychosis. continue all other meds. MRI shows microvascular changes and atrophy- moca at this time wouldn't be accurate given prominent psych symptoms. 11/22 continue current medications. 11/23 continue tx plan. 11/24 continue tx plan 11/25/21-Continue current plan 11/26/21-Chemotherapy 11/27/21. Continue current plan 11/27/21- Continue current regime. Pt reports feeling tired after her treatment today. Labs pending. Pt discussing wanting to go home. 11/28- continue current tx. 11/29/21- Continue current plan of care. 11/30 continue current treatment plan 12/01 continue current treatment plan; patient brighter and more engaging then before 12/02 continue current medications. 12/04/21 Continue current regime. Tolerating Latuda increase on 12/03. 12/05/21 Increase Trazodone to 75 mg HS per pt request. 12/06/21 Continue current regime. 12/07/2021. Continue current regimen and plans 12/08/2021: Continue current plans and regimen 12/09/2021: Trial clonidine 0.1 mg QD PRN for tremors, anxiety I spent minutes with the patient and/or on the patient floor today, greater than?50% of which was spent counseling/coordinating care. Patient educated on: medication risk/benefits Reason for contiued inpatient stay Substantial Risk for: med/psych decompensation
[2021-12-09] MEDS: Lurasidone HCl 80 MG TABLET PO (19:02)
[2021-12-09 21:35] VITALS: BP 128/80; PULSE 80
[2021-12-09] MEDS: Docusate Sodium 100 MG CAPSULE 200 MG PO (21:57)
[2021-12-09] MEDS: Atorvastatin Calcium 10 MG TABLET 5 MG PO (21:57)
[2021-12-09] MEDS: traZODone HCL 25 MG HALFTAB 75 MG PO (22:02)
[2021-12-10] MEDS: Omeprazole 20 MG CAPSULE.DR PO (06:45)
[2021-12-10 06:58] LABS: Glucose, Whole Blood 170 mg/dL (60-115)
[2021-12-10] MEDS: Losartan Potassium 25 MG TABLET PO (08:27)
[2021-12-10] MEDS: LORazepam 1 MG TABLET PO ×2 (08:27→21:24)
[2021-12-10] MEDS: Cholecalciferol (Vitamin D3) 10 MCG TABLET PO (08:27)
[2021-12-10] MEDS: Ferrous Sulfate 324 MG TABLET.DR PO (08:27)
[2021-12-10] MEDS: Multivitamin TABLET 1 TAB PO (08:27)
[2021-12-10] MEDS: Cyanocobalamin (Vitamin B-12) 1,000 MCG TABLET 1000 MCG PO (08:27)
[2021-12-10] MEDS: metFORMIN HCl 1,000 MG TABLET 1000 MG PO ×2 (08:27→21:22)
[2021-12-10] MEDS: Ascorbic Acid 500 MG TABLET 1000 MG PO (08:27)
[2021-12-10] MEDS: cloZAPine 100 MG TABLET 150 MG PO ×2 (08:28→21:25)
[2021-12-10] MEDS: cloNIDine HCL 0.1 MG TABLET PO ×2 (08:42→21:24)
[2021-12-10 08:43] LABS: MANUAL DIFF FLAG NO
[2021-12-10 08:49] VITALS: BP 126/83; PULSE 105; RESP 16; TEMP 35.9; O2SAT 99
[2021-12-10 08:52] LABS: Basophils Percent Auto 0.4 % (0-2); Eosinophils Percent Auto 0.1 % (0-4); Hematocrit 35.2 % (37.0-47.0); Hemoglobin 11.7 g/dl (12.0-16.0); Imm Gran Abs Auto 0.08 X10*3/uL (0.00-0.03); Imm Gran Pct Auto 1.1 % (0.0-0.4); Lymphocytes Absolute Auto 1.8 X10*3/uL (1.2-4.9); Lymphocytes Percent Auto 25.4 % (20-40); Mean Corpuscular HGB Conc 33.2 g/dl (31.0-35.0); Mean Corpuscular Hemoglobin 31.8 pg (27.0-33.0); Mean Corpuscular Volume 95.7 fL (80.0-98.0); Mean Platelet Volume 10.6 fL (9.4-12.3); Monocytes Absolute Auto 0.5 X10*3/uL (0.1-1.2); Monocytes Percent Auto 6.5 % (2-11); Neutrophils Absolute Auto 4.8 x10*3/uL (2.0-8.3); Neutrophils Percent Auto 66.5 % (45-73); Platelet Count 366 X10*3/uL (160-400); Red Blood Count 3.68 X10*6/uL (4.20-5.50); Red Cell Distribution Width 16.5 % (11.0-16.0); White Blood Count 7.2 X10*3/uL (4.8-10.8)
[2021-12-10 09:05] LABS: Neut%MD 67.5 %; Neutrophils Absolute Auto 4.8 x10*3/uL (2.0-8.3); WBCANC 7.1 X10*3/uL
[2021-12-10 09:15] LABS: Alanine Aminotransferase 26 U/L (0-31); Albumin Level 4.1 g/dL (3.5-5.0); Alkaline Phosphatase 99 U/L (39-117); Anion Gap 14 (12-20); Aspartate Amino Transferase 18 U/L (5-31); Bilirubin Total 0.6 mg/dL (0.0-1.0); Blood Urea Nitrogen 13 mg/dL (9-16); Calcium 9.7 mg/dL (8.4-10.2); Carbon Dioxide 23 mmol/L (22-29); Chloride 108 mmol/L (96-108); Creatinine Clr Calc Pharmacy 87.8; Estimated Glomerular Filt Rate > 60; Glucose Random 155 mg/dL (60-115); Potassium 4.1 mmol/L (3.3-5.1); Sodium 141 mmol/L (135-145); Total Protein 6.5 g/dL (6.5-8.0)
--- NOTE | 2021-12-10 10:00 | ECG_ITS ---
Test Reason : ck rhythm Blood Pressure : / mmHG Vent. Rate : 110 BPM Atrial Rate : 110 BPM P-R Int : 134 ms QRS Dur : 074 ms QT Int : 314 ms P-R-T Axes : 052 059 023 degrees QTc Int : 424 ms Sinus tachycardia Nonspecific T wave abnormality Abnormal ECG When compared with ECG of 03-DEC-2021 15:04, No significant change was found Referred By: Marci Jones Electronically Signed By:ESDRAS WATERS
[2021-12-10] MEDS: Enoxaparin Sodium 40 MG/0.4 ML SYRINGE SUBCUT (11:36)
--- NOTE | 2021-12-10 18:41 | HO.PSYCHPN ---
Subjective Subjective Date of Service: 12/10/21 Reason For Visit: Depression paranoia Interim History: Patient seen and discussed with team. Patient evaluated today and upon interview she reports she did not utilize clonidine PRN, as her tremor wasnt bad. Has a hot spot on L ear, RN put gauze on it. Pt says the lab work for paraneoplastic syndrome was negative. Has chemo tomorrow. Says she is trying to get a sense of when her discharge will be, will have another meeting with [facility]. Continues to report poor sleep onset, low energy in the day. Does not want med changes. In the milieu, patient is safe and visible in the milieu. Denies SI/SIB/HI upon inquiry. Denies irritability or assaultive ideation. Says she feels safe. Medication Compliance: Yes Side effects from medications: No Attending Groups: Intermittent Review of Systems Acute medical concerns: No Medical Review of Systems: unchanged Mental Status Exam Mental Status Exam Narrative: Patient Appearance:?Appropriate Patient Orientation:?Person, Place, Time and Situation Level of Consciousness:?Alert Patient Behavior:?Talkative and Good Eye Contact Mood Description:?Apprehensive Affect Description:?Apprehensive Patient Cognition Impaired:?Yes Ability to Follow Directions:?Good Speech Pattern:?Spontaneous Speech, Delayed and Long Pauses Memory Description:?Intact Hallucinations:?None Delusions:?Paranoid Ideation (reality tests regarding if she is in trouble with police) Thought Process:?Slowed Thinking and Confusion Thought Content:?positive for Circumstantial, positive for Slowed Thinking and positive for Logical Judgment:?Fair Diagnostics Vital Signs (24Hr): Vital Signs - 24 hr 12/09/21 21:35 12/10/21 08:49 Temperature 96.7 F L Pulse Rate 80 105 H Respiratory Rate 16 Blood Pressure 128/80 126/83 Pulse Oximetry 99 BMI result Body Mass Index 30.5 Labs Results: 12/10/21 08:03 12/10/21 08:03 Labs: Laboratory Results - last 48 hr 12/09/21 12/10/21 12/10/21 06:27 06:49 08:03 WBC RBC Hgb Hct MCV MCH MCHC RDW Plt Count MPV Immature Gran % (Auto) Neut % (Auto) Lymph % (Auto) [place] % (Auto) Eos % (Auto) Baso % (Auto) Lymph # (Auto) [place] # (Auto) Eos # (Auto) Baso # (Auto) Abs Immat Gran (auto) Absolute Neuts (auto) Absolute Nucleated RBC Nucleated RBC % (auto) Sodium 141 Potassium 4.1 Chloride 108 Carbon Dioxide 23 Anion Gap 14 BUN 13 Creatinine 0.73 Estim Creat Clear Calc 87.8 Estimated GFR > 60 POC Glucose 158 H 170 H Random Glucose 155 H Calcium 9.7 Total Bilirubin 0.6 AST 18 ALT 26 Alkaline Phosphatase 99 Total Protein 6.5 Albumin 4.1 12/10/21 12/10/21 08:03 08:03 WBC 7.2 RBC 3.68 L Hgb 11.7 L Hct 35.2 L MCV 95.7 MCH 31.8 MCHC 33.2 RDW 16.5 H Plt Count 366 MPV 10.6 Immature Gran % (Auto) 1.1 H Neut % (Auto) 66.5 Lymph % (Auto) 25.4 [place] % (Auto) 6.5 Eos % (Auto) 0.1 Baso % (Auto) 0.4 Lymph # (Auto) 1.8 [place] # (Auto) 0.5 Eos # (Auto) 0.0 Baso # (Auto) 0.0 Abs Immat Gran (auto) 0.08 H Absolute Neuts (auto) 4.8 4.8 Absolute Nucleated RBC 0.000 Nucleated RBC % (auto) 0.0 Sodium Potassium Chloride Carbon Dioxide Anion Gap BUN Creatinine Estim Creat Clear Calc Estimated GFR POC Glucose Random Glucose Calcium Total Bilirubin AST ALT Alkaline Phosphatase Total Protein Albumin Imaging Radiology Impressions: ITS Impressions Brain MRI 11/20/21 13:00 IMPRESSION: 1. No acute intracranial abnormalities. 2. Mild underlying microangiopathy and generalized cerebral volume loss. Medications Medications Current Medications Acetaminophen (Acetaminophen 325 Mg Tablet) 650 mg PO Q6H PRN PRN Reason: Headache/Pain Mild Scale (1-3) Last Admin: 11/22/21 08:44 Dose: 650 mg Documented by: Al Hydroxide/Mg Hydroxide (Magnesium Hydrox/Alum Hydrox 30 Ml Oral.Susp) 30 ml PO Q6H PRN PRN Reason: Heartburn/Nausea Last Admin: 10/02/21 14:41 Dose: 30 ml Documented by: Ascorbic Acid (Ascorbic Acid 500 Mg Tablet) 1,000 mg PO DAILY MYRTLE Last Admin: 12/10/21 08:27 Dose: 1,000 mg Documented by: Atorvastatin Calcium (Atorvastatin Calcium 10 Mg Tablet) 5 mg PO BEDTIME [facility] Last Admin: 12/09/21 21:57 Dose: 5 mg Documented by: Clonidine HCl (Clonidine Hcl 0.1 Mg Tablet) 0.1 mg PO BID [facility]; Protocol Last Admin: 12/10/21 08:42 Dose: 0.1 mg Documented by: Clonidine HCl (Clonidine Hcl 0.1 Mg Tablet) 0.1 mg PO DAILY PRN; Protocol PRN Reason: hyperarousal, anxiety Clozapine (Clozapine 100 Mg Tablet) 150 mg PO BID [facility] Last Admin: 12/10/21 08:28 Dose: 150 mg Documented by: Cyanocobalamin (Cyanocobalamin (Vitamin B-12) 1,000 Mcg Tablet) 1,000 mcg PO DAILY [facility] Last Admin: 12/10/21 08:27 Dose: 1,000 mcg Documented by: Docusate Sodium (Docusate Sodium 100 Mg Capsule) 200 mg PO BEDTIME [facility] Last Admin: 12/09/21 21:57 Dose: 200 mg Documented by: Enoxaparin Sodium (Enoxaparin Sodium 40 Mg/0.4 Ml Syringe) 40 mg SUBCUT Q24H [facility] Last Admin: 12/10/21 11:36 Dose: 40 mg Documented by: Ferrous Sulfate (Ferrous Sulfate 324 Mg Tablet.) 324 mg PO DAILY [facility] Last Admin: 12/10/21 08:27 Dose: 324 mg Documented by: Hydroxyzine HCl (Hydroxyzine Hcl 25 Mg Tablet) 25 mg PO BEDTIME PRN PRN Reason: Anxiety Last Admin: 12/04/21 22:55 Dose: 25 mg Documented by: Lorazepam (Lorazepam 1 Mg Tablet) 1 mg PO BID [facility] Last Admin: 12/10/21 08:27 Dose: 1 mg Documented by: Losartan Potassium (Losartan Potassium 25 Mg Tablet) 25 mg PO DAILY [facility]; Protocol Last Admin: 12/10/21 08:27 Dose: 25 mg Documented by: Lurasidone HCl (Lurasidone Hcl 80 Mg Tablet) 80 mg PO 1800 [facility] Last Admin: 12/09/21 19:02 Dose: 80 mg Documented by: Magnesium Hydroxide (Milk Of Magnesia 30 Ml Oral.Susp) 30 ml PO DAILY PRN PRN Reason: Constipation Metformin HCl (Metformin Hcl 1,000 Mg Tablet) 1,000 mg PO BID [facility] Last Admin: 12/10/21 08:27 Dose: 1,000 mg Documented by: Multivitamins/Vitamin C (Multivitamin Tablet) 1 tab PO DAILY [facility] Last Admin: 12/10/21 08:27 Dose: 1 tab Documented by: Non-Formulary Medication (Cinnamon) 1,000 mg PO DAILY [facility] Last Admin: 12/10/21 08:27 Dose: 1,000 mg Documented by: Patient Own Medication ( Empagliflozin 10 Mg) 1 each PO DAILY [facility] Last Admin: 12/10/21 08:27 Dose: 1 each Documented by: Patient Own Medication (Dwayne Red Softgels) 1 each PO DAILY [facility] Last Admin: 12/10/21 08:27 Dose: 1 each Documented by: Omeprazole (Omeprazole 20 Mg Capsule.Dr) 20 mg PO DAILY@0630 [facility] Last Admin: 12/10/21 06:45 Dose: 20 mg Documented by: Ondansetron HCl (Ondansetron Odt 8 Mg Tab.Rapdis) 8 mg TRANSLINGU Q8H PRN PRN Reason: nausea Polyethylene Glycol (Polyethylene Glycol 3350 17 Gm Powd.Pack) 17 gm PO DAILY PRN PRN Reason: Constipation Last Admin: 11/06/21 12:24 Dose: 17 gm Documented by: Prazosin HCl (Prazosin Hcl 1 Mg Capsule) 1 mg PO BEDTIME PRN; Protocol PRN Reason: nightmares Last Admin: 12/04/21 22:53 Dose: 1 mg Documented by: Trazodone HCl (Trazodone Hcl 25 Mg Halftab) 75 mg PO BEDTIME PRN PRN Reason: Insomnia Last Admin: 12/09/21 22:02 Dose: 75 mg Documented by: Vitamin D (Cholecalciferol (Vitamin D3) 10 Mcg Tablet) 10 mcg PO DAILY [facility] Last Admin: 12/10/21 08:27 Dose: 10 mcg Documented by: Allergies Allergies Allergy/AdvReac Type Severity Reaction Status Date / Time lisinopril [LISINOPRIL] Allergy Unknown SWOLLEN Verified 09/17/21 08:42 LIPS, angioedema, swelling Assessment & Plan Assessment & Plan (1) Schizoaffective disorder: Status: Acute Code(s): F25.9 - Schizoaffective disorder, unspecified (2) Facial weakness: Status: Acute Code(s): R29.810 - Facial weakness (3) Encephalopathy: Status: Acute Code(s): G93.40 - Encephalopathy, unspecified Plan 50 yo female, hx of schizoaffective disorder, depressed with R breast cancer, having just completed first cycle of chemotherapy. Pt's partner and sister report to crisis team that pt has had a significant mental status change with psychotic symptoms, paranoia, perceptual alterations, poor sleep and significant thought blocking. Pt denies SI, HI. Today she is a very poor historian-almost pre-catatonic at times, considering signing a three day notice of intent. Team report by history she may not be comfortable in this facility. Assessment plan for 09/21/2021 Continue current medical treatment elevated white blood count noted over the past month question related to cancer treatment.? No evidence of infection Patient depressed withdrawn preoccupied patient with recent treatment for ductal carcinoma stress of this might certainly lead to depressive almost catatonic episode 09/22/21 Pt with thought blocking improved from yeterday have restarted wellbutin hosp did not have sr cont clozapine evaluate baseline denies self harm oob more 09/23/21 Continue current plan of care. Collateral contacts with OP team, oncology. 09/24/21 Increase Abilify to 30 mg daily Pt currently refusing Lorazepam TDN expires 09/25/21-will file for civil commitment if pt persists in wanting discharge 09/25/21 Civil commitment filing completed Continue current regime. 09/26/21 Continue current regime 09/27/32 Decrease Abilify to 20 mg daily Risperdal 1.5 mg HS 09/28/21 Continue plan as above 09/29/21 No changes 09/30/21 Court 10/01/21 Chemotherapy 10/01/21 Increase Risperdal to 2.5 mg HS Decrease Abilify to 10 mg daily 10/02/21 Tolerating change back to Abilify from Risperdal Appetite is improved. Calmer, more visable, however continues with paranoia Jardiance ordered from [facility] pharmacy 10/03/21 Increase Abilify to 30 mg daily Will pursue validation of pt's HCP for continued chemotherapy Tentative chemotherapy 10/09. 10/04/21 Continue current regime 10/05 no changes to current regimen 10/06 no changes to current regimen 10/07/21 No positive effect from increase in Abilify Increase Clozaril to 100 mg bid, an increase of 50 mg daily, divided. Chemotherapy 10/09/21, Labs 10/08/21. 10/08/21 Tolerating Clozaril increase thus far Dexamethasone 4 mg hs and 4 mg a.m. pre chemo per Dr. Mora Support, encourage 10/09/21 Continue current plan of care 10/10/21 Continue current plan of care 10/11/21 Continue current plan. Will re-eval for Clozaril increase next week. 10/12/2021: Continue current regimen and plans.? No changes were made today 10/13/2021: Continue current plans and regimen. 10/14/21: Increase Clozaril to 125 mg bid ? EKG, CBCD, CMP 10/15 prior to chemotherapy 10/15/21: Continue current plan of care 10/16/21: Continue current plan. Tolerating Clozaril increase 10/17/21: Continue current regime. 10/18/21: Increase Clozaril to 150 mg bid ? Decrease Abilify to 20 mg daily ? ECT Consult 10/19/21: continue meds unchanged 10/20/21: pt continue to present as paranoid, withdrawn 10/21/21: Continue current regime. Labs/EKG 10/22. Some improvement today. 10/22/21: Labs/EKG WNL ? Meeting 10/24 with health care proxy's to discuss clozaril discontinuation ? ECT Consult 10/24/21: Continue current plan. 10/25/21: Continue current plan. 10/26: ECT may be indicated. Change Ativan to standing dose. 10/27 Increase Ativan to 1 mg TID and watch for sedation 10/28/21: CBCD, CMP, EKG 10/29/21 in preparation for chemotherapy ? Await Clozapine level results. 10/29/21: ECT consult 10/30 ? Chemotherapy 10/30 ? Await Clozapine level results. ? Tentative plan to taper Abilify, titrate Latuda. ? Family/HCP in agreement. Pt agrees as well. 10/30/21: Decrease Abilify to 10 mg daily to prepare to begin Latuda 10/31/21: Continue current plan. 11/01/21: Discontinue Abilify ? Latuda 20 mg 1800 11/02/21:? Continue current treatment plan 11/03/21:? Continue current treatment plan 11/04/21: Tolerating Latuda. Pt asks not to titrate yet. Some improvement noted. 11/05/21: Chemotherapy 11/06. Ready to titrate Latuda-family will discuss with pt. Thus far, a positive result, without adverse effect. ? EKG reading pending ? Sister will not be taking pt to chemotherapy on 11/06 as her son has tested positive for COVID this afternoon. Partner Kailey will accompany pt. along with team. 11/06/21: Increase Latuda to 40 mg daily after evening meal. ? Increase Colace to 200 mg hs ? Miralax prn ? Per nursing report, pt will no longer need steroid dosing on Tuesdays before chemotherapy, but will receive dosing on Wednesdays in the chemotherapy dept. 11/07/21: Continue current plan. 11/08/21: Change Lorazepam prn to 1 mg bid 11/09/21: Tolerating Lorazepam. Continue plan of care. 11/10/21: Considering Latuda increase. 11/11/21: Increase Latuda to 60 mg daily. Labs pre chemotherapy. 11/12/21: Continue current plan. Care discussed with HCP Kailey- review of Ativan dosing, therapeutic Latuda dosing,pt's not understanding that her thought blocking, paranoia, belief that she will go to custodial are target sx for medication increase. 11/14/21: Continue current plan. Discharge planning with consistent improvement. 11/15/21: continue current medications per primary treatment team. 11/16/2021 Patient seen in psychiatric follow-up patient depressed withdrawn hopeless helpless despondent again discussed option of ECT 11/17/2021 Patient's case reviewed with nursing staff.? Patient seen.? Patient somewhat with cardoso affect today less withdrawn able to engage in discussion regarding Latuda and possibility of ECT treatment.? Continue clozapine Latuda 11/18- discussed with significant other possibility of: underlying paraneoplastic syndrome related to breast carcinona- mainly 4 antibodies have been related to this type of cancer (FOUNTAIN WAITRESS/WAITER-2, Anti-yo (FOUNTAIN WAITRESS/WAITER-1); Anti-RI (corona-2); and antiamphiphysin) mostly causing cerebellar disfunction including opsoclonus (and myoclonus) which pt appears to have along with other cognitive and psychiatric symptoms. Will order MRI- r/o encephalitis related to chemo or any limbic/cerebellar pathology. Sent message to oncologist. Pt does psychiatric condition appears to significantly improved with dexamethaxone. Also if classic paraneoplastic, which is the one mostly related to cancer tumors,? serum antibodies testing may suffice (without CSF testing).? 11/19 continue current medications- pending mri, paraneoplastic panel. 11/20- continue current medications, pending discussion with oncology re: paraneoplastic syndome, pending MRI 11/21 will d/c wellbutrin as it can worsen psychosis. continue all other meds. MRI shows microvascular changes and atrophy- moca at this time wouldn't be accurate given prominent psych symptoms. 11/22 continue current medications. 11/23 continue tx plan. 11/24 continue tx plan 11/25/21-Continue current plan 11/26/21-Chemotherapy 11/27/21. Continue current plan 11/27/21- Continue current regime. Pt reports feeling tired after her treatment today. Labs pending. Pt discussing wanting to go home. 11/28- continue current tx. 11/29/21- Continue current plan of care. 11/30 continue current treatment plan 12/01 continue current treatment plan; patient brighter and more engaging then before 12/02 continue current medications. 12/04/21 Continue current regime. Tolerating Latuda increase on 12/03. 12/05/21 Increase Trazodone to 75 mg HS per pt request. 12/06/21 Continue current regime. 12/07/2021. Continue current regimen and plans 12/08/2021: Continue current plans and regimen 12/09/2021: Trial clonidine 0.1 mg QD PRN for tremors, anxiety 12/10/2021: No med changes made today I spent minutes with the patient and/or on the patient floor today, greater than?50% of which was spent counseling/coordinating care. Reason for contiued inpatient stay Substantial Risk for: inability to function, rapid decompensation and med/psych decompensation
[2021-12-10 21:20] VITALS: BP 127/77; PULSE 115; TEMP 36.1; O2SAT 98
[2021-12-10] MEDS: Lurasidone HCl 80 MG TABLET PO (21:22)
[2021-12-10] MEDS: Docusate Sodium 100 MG CAPSULE 200 MG PO (21:24)
[2021-12-10] MEDS: Atorvastatin Calcium 10 MG TABLET 5 MG PO (21:28)
[2021-12-10] MEDS: traZODone HCL 25 MG HALFTAB 75 MG PO (21:30)
[2021-12-11] MEDS: Omeprazole 20 MG CAPSULE.DR PO (06:06)
[2021-12-11 06:33] LABS: Glucose, Whole Blood 135 mg/dL (60-115)
[2021-12-11] MEDS: cloZAPine 100 MG TABLET 150 MG PO ×2 (08:17→21:29)
[2021-12-11] MEDS: Multivitamin TABLET 1 TAB PO (08:18)
[2021-12-11] MEDS: Cholecalciferol (Vitamin D3) 10 MCG TABLET PO (08:18)
[2021-12-11] MEDS: Losartan Potassium 25 MG TABLET PO (08:18)
[2021-12-11] MEDS: LORazepam 1 MG TABLET PO ×2 (08:18→21:29)
[2021-12-11] MEDS: cloNIDine HCL 0.1 MG TABLET PO ×2 (08:18→21:30)
[2021-12-11] MEDS: Ascorbic Acid 500 MG TABLET 1000 MG PO (08:18)
[2021-12-11] MEDS: metFORMIN HCl 1,000 MG TABLET 1000 MG PO ×2 (08:18→21:31)
[2021-12-11] MEDS: Ferrous Sulfate 324 MG TABLET.DR PO (08:18)
[2021-12-11] MEDS: Cyanocobalamin (Vitamin B-12) 1,000 MCG TABLET 1000 MCG PO (08:18)
[2021-12-11 08:22] VITALS: BP 117/73; PULSE 119; RESP 18; TEMP 36.2; O2SAT 98
[2021-12-11] MEDS: Enoxaparin Sodium 40 MG/0.4 ML SYRINGE SUBCUT (13:39)
--- NOTE | 2021-12-11 15:45 | HO.PSYCHPN ---
Subjective Subjective Date of Service: 12/11/21 Reason For Visit: Depression paranoia Interim History: Patient said that she is not doing too good She did not elaborate further other than to say she was feeling very tired. She denies any auditory hallucinations. Patient said she would wait till RUBY Gaytan returns tomorrow to discuss further treatment Mental Status Exam Mental Status Exam Narrative: Patient Appearance:?Appropriate Patient Orientation:?Person, Place, Time and Situation Level of Consciousness:?Alert Patient Behavior:?Appropriate, Talkative, Cooperative and Good Eye Contact Mood Description:?not too good Affect Description:?constricted Patient Cognition Impaired:?Yes Ability to Follow Directions:?Good Speech Pattern:?Spontaneous Speech Memory Description:?Episodic Impaired Hallucinations:?None Delusions:?Paranoid Ideation Thought Process:?Distracted and Confusion Thought Content:?positive for [place], positive for Circumstantial, positive for Goal Oriented and positive for Slowed Thinking Depressive Symptoms:?Difficulty Sleeping and Difficulty Concentrating Judgement:?Fair Diagnostics Vital Signs (24Hr): Vital Signs - 24 hr 12/10/21 21:20 12/11/21 08:22 Temperature 96.9 F 97.1 F Pulse Rate 115 H 119 H Respiratory Rate 18 Blood Pressure 127/77 117/73 Pulse Oximetry 98 98 BMI result Body Mass Index 30.5 Labs Results: 12/10/21 08:03 12/10/21 08:03 Labs: Laboratory Results - last 48 hr 12/10/21 12/10/21 12/10/21 06:49 08:03 08:03 WBC RBC Hgb Hct MCV MCH MCHC RDW Plt Count MPV Immature Gran % (Auto) Neut % (Auto) Lymph % (Auto) [place] % (Auto) Eos % (Auto) Baso % (Auto) Lymph # (Auto) [place] # (Auto) Eos # (Auto) Baso # (Auto) Abs Immat Gran (auto) Absolute Neuts (auto) 4.8 Absolute Nucleated RBC Nucleated RBC % (auto) Sodium 141 Potassium 4.1 Chloride 108 Carbon Dioxide 23 Anion Gap 14 BUN 13 Creatinine 0.73 Estim Creat Clear Calc 87.8 Estimated GFR > 60 POC Glucose 170 H Random Glucose 155 H Calcium 9.7 Total Bilirubin 0.6 AST 18 ALT 26 Alkaline Phosphatase 99 Total Protein 6.5 Albumin 4.1 12/10/21 12/11/21 08:03 06:28 WBC 7.2 RBC 3.68 L Hgb 11.7 L Hct 35.2 L MCV 95.7 MCH 31.8 MCHC 33.2 RDW 16.5 H Plt Count 366 MPV 10.6 Immature Gran % (Auto) 1.1 H Neut % (Auto) 66.5 Lymph % (Auto) 25.4 [place] % (Auto) 6.5 Eos % (Auto) 0.1 Baso % (Auto) 0.4 Lymph # (Auto) 1.8 [place] # (Auto) 0.5 Eos # (Auto) 0.0 Baso # (Auto) 0.0 Abs Immat Gran (auto) 0.08 H Absolute Neuts (auto) 4.8 Absolute Nucleated RBC 0.000 Nucleated RBC % (auto) 0.0 Sodium Potassium Chloride Carbon Dioxide Anion Gap BUN Creatinine Estim Creat Clear Calc Estimated GFR POC Glucose 135 H Random Glucose Calcium Total Bilirubin AST ALT Alkaline Phosphatase Total Protein Albumin Imaging Radiology Impressions: ITS Impressions Brain MRI 11/20/21 13:00 IMPRESSION: 1. No acute intracranial abnormalities. 2. Mild underlying microangiopathy and generalized cerebral volume loss. Medications Medications Current Medications Acetaminophen (Acetaminophen 325 Mg Tablet) 650 mg PO Q6H PRN PRN Reason: Headache/Pain Mild Scale (1-3) Last Admin: 11/22/21 08:44 Dose: 650 mg Documented by: Al Hydroxide/Mg Hydroxide (Magnesium Hydrox/Alum Hydrox 30 Ml Oral.Susp) 30 ml PO Q6H PRN PRN Reason: Heartburn/Nausea Last Admin: 10/02/21 14:41 Dose: 30 ml Documented by: Ascorbic Acid (Ascorbic Acid 500 Mg Tablet) 1,000 mg PO DAILY [facility] Last Admin: 12/11/21 08:18 Dose: 1,000 mg Documented by: Atorvastatin Calcium (Atorvastatin Calcium 10 Mg Tablet) 5 mg PO BEDTIME [facility] Last Admin: 12/10/21 21:28 Dose: 5 mg Documented by: Clonidine HCl (Clonidine Hcl 0.1 Mg Tablet) 0.1 mg PO BID [facility]; Protocol Last Admin: 12/11/21 08:18 Dose: 0.1 mg Documented by: Clonidine HCl (Clonidine Hcl 0.1 Mg Tablet) 0.1 mg PO DAILY PRN; Protocol PRN Reason: hyperarousal, anxiety Clozapine (Clozapine 100 Mg Tablet) 150 mg PO BID [facility] Last Admin: 12/11/21 08:17 Dose: 150 mg Documented by: Cyanocobalamin (Cyanocobalamin (Vitamin B-12) 1,000 Mcg Tablet) 1,000 mcg PO DAILY [facility] Last Admin: 12/11/21 08:18 Dose: 1,000 mcg Documented by: Docusate Sodium (Docusate Sodium 100 Mg Capsule) 200 mg PO BEDTIME [facility] Last Admin: 12/10/21 21:24 Dose: 200 mg Documented by: Enoxaparin Sodium (Enoxaparin Sodium 40 Mg/0.4 Ml Syringe) 40 mg SUBCUT Q24H [facility] Last Admin: 12/11/21 13:39 Dose: 40 mg Documented by: Ferrous Sulfate (Ferrous Sulfate 324 Mg Tablet.Dr) 324 mg PO DAILY [facility] Last Admin: 12/11/21 08:18 Dose: 324 mg Documented by: Hydroxyzine HCl (Hydroxyzine Hcl 25 Mg Tablet) 25 mg PO BEDTIME PRN PRN Reason: Anxiety Last Admin: 12/04/21 22:55 Dose: 25 mg Documented by: Lorazepam (Lorazepam 1 Mg Tablet) 1 mg PO BID [facility] Last Admin: 12/11/21 08:18 Dose: 1 mg Documented by: Losartan Potassium (Losartan Potassium 25 Mg Tablet) 25 mg PO DAILY [facility]; Protocol Last Admin: 12/11/21 08:18 Dose: 25 mg Documented by: Lurasidone HCl (Lurasidone Hcl 80 Mg Tablet) 80 mg PO 1800 [facility] Last Admin: 12/10/21 21:22 Dose: 80 mg Documented by: Magnesium Hydroxide (Milk Of Magnesia 30 Ml Oral.Susp) 30 ml PO DAILY PRN PRN Reason: Constipation Metformin HCl (Metformin Hcl 1,000 Mg Tablet) 1,000 mg PO BID [facility] Last Admin: 12/11/21 08:18 Dose: 1,000 mg Documented by: Multivitamins/Vitamin C (Multivitamin Tablet) 1 tab PO DAILY [facility] Last Admin: 12/11/21 08:18 Dose: 1 tab Documented by: Non-Formulary Medication (Cinnamon) 1,000 mg PO DAILY [facility] Last Admin: 12/11/21 08:17 Dose: 1,000 mg Documented by: Patient Own Medication ( Empagliflozin 10 Mg) 1 each PO DAILY [facility] Last Admin: 12/11/21 08:17 Dose: 1 each Documented by: Patient Own Medication (Dwayne Red Softgels) 1 each PO DAILY [facility] Last Admin: 12/11/21 08:17 Dose: 1 each Documented by: Omeprazole (Omeprazole 20 Mg Capsule.) 20 mg PO DAILY@0630 [facility] Last Admin: 12/11/21 06:06 Dose: 20 mg Documented by: Ondansetron HCl (Ondansetron Odt 8 Mg Tab.Rapdis) 8 mg TRANSLINGU Q8H PRN PRN Reason: nausea Polyethylene Glycol (Polyethylene Glycol 3350 17 Gm Powd.Pack) 17 gm PO DAILY PRN PRN Reason: Constipation Last Admin: 11/06/21 12:24 Dose: 17 gm Documented by: Prazosin HCl (Prazosin Hcl 1 Mg Capsule) 1 mg PO BEDTIME PRN; Protocol PRN Reason: nightmares Last Admin: 12/04/21 22:53 Dose: 1 mg Documented by: Trazodone HCl (Trazodone Hcl 25 Mg Halftab) 75 mg PO BEDTIME PRN PRN Reason: Insomnia Last Admin: 12/10/21 21:30 Dose: 75 mg Documented by: Vitamin D (Cholecalciferol (Vitamin D3) 10 Mcg Tablet) 10 mcg PO DAILY [facility] Last Admin: 12/11/21 08:18 Dose: 10 mcg Documented by: Allergies Allergies Allergy/AdvReac Type Severity Reaction Status Date / Time lisinopril [LISINOPRIL] Allergy Unknown SWOLLEN Verified 09/17/21 08:42 LIPS, angioedema, swelling Assessment & Plan Assessment & Plan (1) Schizoaffective disorder: Status: Acute Code(s): F25.9 - Schizoaffective disorder, unspecified (2) Facial weakness: Status: Acute Code(s): R29.810 - Facial weakness (3) Encephalopathy: Status: Acute Code(s): G93.40 - Encephalopathy, unspecified Plan 50 yo female, hx of schizoaffective disorder, depressed with R breast cancer, having just completed first cycle of chemotherapy. Pt's partner and sister report to crisis team that pt has had a significant mental status change with psychotic symptoms, paranoia, perceptual alterations, poor sleep and significant thought blocking. Pt denies SI, HI. Today she is a very poor historian-almost pre-catatonic at times, considering signing a three day notice of intent. Team report by history she may not be comfortable in this facility. Assessment plan for 09/21/2021 Continue current medical treatment elevated white blood count noted over the past month question related to cancer treatment.? No evidence of infection Patient depressed withdrawn preoccupied patient with recent treatment for ductal carcinoma stress of this might certainly lead to depressive almost catatonic episode 09/22/21 Pt with thought blocking improved from yeterday have restarted wellbutin hosp did not have sr cont clozapine evaluate baseline denies self harm oob more 09/23/21 Continue current plan of care. Collateral contacts with OP team, oncology. 09/24/21 Increase Abilify to 30 mg daily Pt currently refusing Lorazepam TDN expires 09/25/21-will file for civil commitment if pt persists in wanting discharge 09/25/21 Civil commitment filing completed Continue current regime. 09/26/21 Continue current regime 09/27/32 Decrease Abilify to 20 mg daily Risperdal 1.5 mg HS 09/28/21 Continue plan as above 09/29/21 No changes 09/30/21 Court 10/01/21 Chemotherapy 10/01/21 Increase Risperdal to 2.5 mg HS Decrease Abilify to 10 mg daily 10/02/21 Tolerating change back to Abilify from Risperdal Appetite is improved. Calmer, more visable, however continues with paranoia Jardiance ordered from [facility] 10/03/21 Increase Abilify to 30 mg daily Will pursue validation of pt's HCP for continued chemotherapy Tentative chemotherapy 10/09. 10/04/21 Continue current regime 10/05 no changes to current regimen 10/06 no changes to current regimen 10/07/21 No positive effect from increase in Abilify Increase Clozaril to 100 mg bid, an increase of 50 mg daily, divided. Chemotherapy 10/09/21, Labs 10/08/21. 10/08/21 Tolerating Clozaril increase thus far Dexamethasone 4 mg hs and 4 mg a.m. pre chemo per Dr. Mora Support, encourage 10/09/21 Continue current plan of care 10/10/21 Continue current plan of care 10/11/21 Continue current plan. Will re-eval for Clozaril increase next week. 10/12/2021: Continue current regimen and plans.? No changes were made today 10/13/2021: Continue current plans and regimen. 10/14/21: Increase Clozaril to 125 mg bid ? EKG, CBCD, CMP 10/15 prior to chemotherapy 10/15/21: Continue current plan of care 10/16/21: Continue current plan. Tolerating Clozaril increase 10/17/21: Continue current regime. 10/18/21: Increase Clozaril to 150 mg bid ? Decrease Abilify to 20 mg daily ? ECT Consult 10/19/21: continue meds unchanged 10/20/21: pt continue to present as paranoid, withdrawn 10/21/21: Continue current regime. Labs/EKG 10/22. Some improvement today. 10/22/21: Labs/EKG WNL ? Meeting 10/24 with health care proxy's to discuss clozaril discontinuation ? ECT Consult 10/24/21: Continue current plan. 10/25/21: Continue current plan. 10/26: ECT may be indicated. Change Ativan to standing dose. 10/27 Increase Ativan to 1 mg TID and watch for sedation 10/28/21: CBCD, CMP, EKG 10/29/21 in preparation for chemotherapy ? Await Clozapine level results. 10/29/21: ECT consult 10/30 ? Chemotherapy 10/30 ? Await Clozapine level results. ? Tentative plan to taper Abilify, titrate Latuda. ? Family/HCP in agreement. Pt agrees as well. 10/30/21: Decrease Abilify to 10 mg daily to prepare to begin Latuda 10/31/21: Continue current plan. 11/01/21: Discontinue Abilify ? Latuda 20 mg 1800 11/02/21:? Continue current treatment plan 11/03/21:? Continue current treatment plan 11/04/21: Tolerating Latuda. Pt asks not to titrate yet. Some improvement noted. 11/05/21: Chemotherapy 11/06. Ready to titrate Latuda-family will discuss with pt. Thus far, a positive result, without adverse effect. ? EKG reading pending ? Sister will not be taking pt to chemotherapy on 11/06 as her son has tested positive for COVID this afternoon. Partner Kailey will accompany pt. along with team. 11/06/21: Increase Latuda to 40 mg daily after evening meal. ? Increase Colace to 200 mg hs ? Miralax prn ? Per nursing report, pt will no longer need steroid dosing on Tuesdays before chemotherapy, but will receive dosing on Wednesdays in the chemotherapy dept. 11/07/21: Continue current plan. 11/08/21: Change Lorazepam prn to 1 mg bid 11/09/21: Tolerating Lorazepam. Continue plan of care. 11/10/21: Considering Latuda increase. 11/11/21: Increase Latuda to 60 mg daily. Labs pre chemotherapy. 11/12/21: Continue current plan. Care discussed with HCP Kailey- review of Ativan dosing, therapeutic Latuda dosing,pt's not understanding that her thought blocking, paranoia, belief that she will go to senior living are target sx for medication increase. 11/14/21: Continue current plan. Discharge planning with consistent improvement. 11/15/21: continue current medications per primary treatment team. 11/16/2021 Patient seen in psychiatric follow-up patient depressed withdrawn hopeless helpless despondent again discussed option of ECT 11/17/2021 Patient's case reviewed with nursing staff.? Patient seen.? Patient somewhat with cardoso affect today less withdrawn able to engage in discussion regarding Latuda and possibility of ECT treatment.? Continue clozapine Latuda 11/18- discussed with significant other possibility of: underlying paraneoplastic syndrome related to breast carcinona- mainly 4 antibodies have been related to this type of cancer (RESEARCH ATTORNEY-2, Anti-yo (RESEARCH ATTORNEY-1); Anti-RI (corona-2); and antiamphiphysin) mostly causing cerebellar disfunction including opsoclonus (and myoclonus) which pt appears to have along with other cognitive and psychiatric symptoms. Will order MRI- r/o encephalitis related to chemo or any limbic/cerebellar pathology. Sent message to oncologist. Pt does psychiatric condition appears to significantly improved with dexamethaxone. Also if classic paraneoplastic, which is the one mostly related to cancer tumors,? serum antibodies testing may suffice (without CSF testing).? 11/19 continue current medications- pending mri, paraneoplastic panel. 11/20- continue current medications, pending discussion with oncology re: paraneoplastic syndome, pending MRI 11/21 will d/c wellbutrin as it can worsen psychosis. continue all other meds. MRI shows microvascular changes and atrophy- moca at this time wouldn't be accurate given prominent psych symptoms. 11/22 continue current medications. 11/23 continue tx plan. 11/24 continue tx plan 11/25/21-Continue current plan 11/26/21-Chemotherapy 11/27/21. Continue current plan 11/27/21- Continue current regime. Pt reports feeling tired after her treatment today. Labs pending. Pt discussing wanting to go home. 11/28- continue current tx. 11/29/21- Continue current plan of care. 11/30 continue current treatment plan 12/01 continue current treatment plan; patient brighter and more engaging then before 12/02 continue current medications. 12/04/21 Continue current regime. Tolerating Latuda increase on 12/03. 12/05/21 Increase Trazodone to 75 mg HS per pt request. 12/06/21 Continue current regime. 12/07/2021. Continue current regimen and plans 12/08/2021: Continue current plans and regimen 12/09/2021: Trial clonidine 0.1 mg QD PRN for tremors, anxiety I spent minutes with the patient and/or on the patient floor today, greater than?50% of which was spent counseling/coordinating care. Reason for contiued inpatient stay Substantial Risk for: other
[2021-12-11] MEDS: Lurasidone HCl 80 MG TABLET PO (18:38)
[2021-12-11 21:15] VITALS: BP 156/74; PULSE 72; TEMP 36.5; O2SAT 97
[2021-12-11] MEDS: traZODone HCL 25 MG HALFTAB 75 MG PO (21:28)
[2021-12-11] MEDS: Atorvastatin Calcium 10 MG TABLET 5 MG PO (21:30)
[2021-12-11] MEDS: Docusate Sodium 100 MG CAPSULE 200 MG PO (21:31)
[2021-12-11] MEDS: Prazosin HCL 1 MG CAPSULE PO (21:59)
[2021-12-12 06:00] VITALS: BP 121/73; PULSE 112; TEMP 37; O2SAT 96
[2021-12-12] MEDS: Omeprazole 20 MG CAPSULE.DR PO (06:11)
[2021-12-12 06:22] LABS: Glucose, Whole Blood 118 mg/dL (60-115)
[2021-12-12 07:00] VITALS: BMI 30.8
[2021-12-12] MEDS: metFORMIN HCl 1,000 MG TABLET 1000 MG PO ×2 (09:18→20:33)
[2021-12-12] MEDS: Multivitamin TABLET 1 TAB PO (09:18)
[2021-12-12] MEDS: LORazepam 1 MG TABLET PO ×2 (09:18→20:32)
[2021-12-12] MEDS: Ferrous Sulfate 324 MG TABLET.DR PO (09:18)
[2021-12-12] MEDS: Losartan Potassium 25 MG TABLET PO (09:18)
[2021-12-12] MEDS: Cyanocobalamin (Vitamin B-12) 1,000 MCG TABLET 1000 MCG PO (09:18)
[2021-12-12] MEDS: cloZAPine 100 MG TABLET 150 MG PO ×2 (09:19→20:31)
[2021-12-12] MEDS: cloNIDine HCL 0.1 MG TABLET PO ×2 (09:19→20:34)
[2021-12-12] MEDS: Ascorbic Acid 500 MG TABLET 1000 MG PO (09:19)
[2021-12-12] MEDS: Cholecalciferol (Vitamin D3) 10 MCG TABLET PO (09:19)
[2021-12-12] MEDS: Enoxaparin Sodium 40 MG/0.4 ML SYRINGE SUBCUT (12:53)
--- NOTE | 2021-12-12 15:33 | HO.PSYCHPN ---
Subjective Subjective Date of Service: 12/12/21 Reason For Visit: Depression paranoia Subjective Notes: Section 8 Interim History: Reports feeling tired today post chemotherapy. Review of discharge planning questions. Pt awaiting results of labs to rule out paraneoplastic syndrome sx. Discussed her completing chemotherapy and proceeding for radiation. Medication Compliance: Yes Side effects from medications: No Attending Groups: Yes Review of Systems chemotherapy Medical Review of Systems: unchanged Review of Systems Reports confusion and Reports memory loss Psychiatric: Reports abnormal sleep pattern, Reports anxiety, Reports confusion, Reports difficulty concentrating and Reports memory loss Mental Status Exam Mental Status Exam Patient Appearance: Appropriate Patient Orientation: Person, Place, Time and Situation Level of Consciousness: Alert Patient Behavior: Talkative and Good Eye Contact Mood Description: Apprehensive Affect Description: Apprehensive Patient Cognition Impaired: Yes Ability to Follow Directions: Good Speech Pattern: Spontaneous Speech, Delayed and Long Pauses Memory Description: Intact Hallucinations: None Delusions: Paranoid Ideation (reality tests regarding if she is in trouble with police) Thought Process: Slowed Thinking and Confusion Thought Content: positive for Circumstantial, positive for Slowed Thinking and positive for Logical Judgement: Fair Diagnostics Vital Signs (24Hr): Vital Signs - 24 hr 12/11/21 21:15 12/12/21 06:00 Temperature 97.7 F 98.6 F Pulse Rate 72 112 H Blood Pressure 156/74 H 121/73 Pulse Oximetry 97 96 BMI result Body Mass Index 30.8 Labs Results: 12/10/21 08:03 12/10/21 08:03 Labs: Laboratory Results - last 48 hr 12/11/21 12/12/21 06:28 06:17 POC Glucose 135 H 118 H Imaging Radiology Impressions: ITS Impressions Brain MRI 11/20/21 13:00 IMPRESSION: 1. No acute intracranial abnormalities. 2. Mild underlying microangiopathy and generalized cerebral volume loss. Medications Medications Current Medications Acetaminophen (Acetaminophen 325 Mg Tablet) 650 mg PO Q6H PRN PRN Reason: Headache/Pain Mild Scale (1-3) Last Admin: 11/22/21 08:44 Dose: 650 mg Documented by: Al Hydroxide/Mg Hydroxide (Magnesium Hydrox/Alum Hydrox 30 Ml Oral.Susp) 30 ml PO Q6H PRN PRN Reason: Heartburn/Nausea Last Admin: 10/02/21 14:41 Dose: 30 ml Documented by: Ascorbic Acid (Ascorbic Acid 500 Mg Tablet) 1,000 mg PO DAILY [facility] Last Admin: 12/12/21 09:19 Dose: 1,000 mg Documented by: Atorvastatin Calcium (Atorvastatin Calcium 10 Mg Tablet) 5 mg PO BEDTIME [facility] Last Admin: 12/11/21 21:30 Dose: 5 mg Documented by: Clonidine HCl (Clonidine Hcl 0.1 Mg Tablet) 0.1 mg PO BID [facility]; Protocol Last Admin: 12/12/21 09:19 Dose: 0.1 mg Documented by: Clonidine HCl (Clonidine Hcl 0.1 Mg Tablet) 0.1 mg PO DAILY PRN; Protocol PRN Reason: hyperarousal, anxiety Clozapine (Clozapine 100 Mg Tablet) 150 mg PO BID [facility] Last Admin: 12/12/21 09:19 Dose: 150 mg Documented by: Cyanocobalamin (Cyanocobalamin (Vitamin B-12) 1,000 Mcg Tablet) 1,000 mcg PO DAILY [facility] Last Admin: 12/12/21 09:18 Dose: 1,000 mcg Documented by: Docusate Sodium (Docusate Sodium 100 Mg Capsule) 200 mg PO BEDTIME [facility] Last Admin: 12/11/21 21:31 Dose: 200 mg Documented by: Enoxaparin Sodium (Enoxaparin Sodium 40 Mg/0.4 Ml Syringe) 40 mg SUBCUT Q24H [facility] Last Admin: 12/12/21 12:53 Dose: 40 mg Documented by: Ferrous Sulfate (Ferrous Sulfate 324 Mg Tablet.Dr) 324 mg PO DAILY [facility] Last Admin: 12/12/21 09:18 Dose: 324 mg Documented by: Hydroxyzine HCl (Hydroxyzine Hcl 25 Mg Tablet) 25 mg PO BEDTIME PRN PRN Reason: Anxiety Last Admin: 12/04/21 22:55 Dose: 25 mg Documented by: Lorazepam (Lorazepam 1 Mg Tablet) 1 mg PO BID [facility] Last Admin: 12/12/21 09:18 Dose: 1 mg Documented by: Losartan Potassium (Losartan Potassium 25 Mg Tablet) 25 mg PO DAILY [facility]; Protocol Last Admin: 12/12/21 09:18 Dose: 25 mg Documented by: Lurasidone HCl (Lurasidone Hcl 80 Mg Tablet) 80 mg PO 1800 [facility] Last Admin: 12/11/21 18:38 Dose: 80 mg Documented by: Magnesium Hydroxide (Milk Of Magnesia 30 Ml Oral.Susp) 30 ml PO DAILY PRN PRN Reason: Constipation Metformin HCl (Metformin Hcl 1,000 Mg Tablet) 1,000 mg PO BID [facility] Last Admin: 12/12/21 09:18 Dose: 1,000 mg Documented by: Multivitamins/Vitamin C (Multivitamin Tablet) 1 tab PO DAILY [facility] Last Admin: 12/12/21 09:18 Dose: 1 tab Documented by: Non-Formulary Medication (Cinnamon) 1,000 mg PO DAILY [facility] Last Admin: 12/12/21 09:37 Dose: 1,000 mg Documented by: Patient Own Medication ( Empagliflozin 10 Mg) 1 each PO DAILY [facility] Last Admin: 12/12/21 09:37 Dose: 1 each Documented by: Patient Own Medication (Dwayne Red Softgels) 1 each PO DAILY [facility] Last Admin: 12/12/21 09:38 Dose: 1 each Documented by: Omeprazole (Omeprazole 20 Mg Capsule.Dr) 20 mg PO DAILY@0630 [facility] Last Admin: 12/12/21 06:11 Dose: 20 mg Documented by: Ondansetron HCl (Ondansetron Odt 8 Mg Tab.Rapdis) 8 mg TRANSLINGU Q8H PRN PRN Reason: nausea Polyethylene Glycol (Polyethylene Glycol 3350 17 Gm Powd.Pack) 17 gm PO DAILY PRN PRN Reason: Constipation Last Admin: 11/06/21 12:24 Dose: 17 gm Documented by: Prazosin HCl (Prazosin Hcl 1 Mg Capsule) 1 mg PO BEDTIME PRN; Protocol PRN Reason: nightmares Last Admin: 12/11/21 21:59 Dose: 1 mg Documented by: Trazodone HCl (Trazodone Hcl 25 Mg Halftab) 75 mg PO BEDTIME PRN PRN Reason: Insomnia Last Admin: 12/11/21 21:28 Dose: 75 mg Documented by: Vitamin D (Cholecalciferol (Vitamin D3) 10 Mcg Tablet) 10 mcg PO DAILY [facility] Last Admin: 12/12/21 09:19 Dose: 10 mcg Documented by: Allergies Allergies Allergy/AdvReac Type Severity Reaction Status Date / Time lisinopril [LISINOPRIL] Allergy Unknown SWOLLEN Verified 09/17/21 08:42 LIPS, angioedema, swelling Assessment & Plan Assessment & Plan (1) Schizoaffective disorder: Status: Acute Code(s): F25.9 - Schizoaffective disorder, unspecified (2) Facial weakness: Status: Acute Code(s): R29.810 - Facial weakness (3) Encephalopathy: Status: Acute Code(s): G93.40 - Encephalopathy, unspecified Plan 50 yo female, hx of schizoaffective disorder, depressed with R breast cancer, having just completed first cycle of chemotherapy. Pt's partner and sister report to crisis team that pt has had a significant mental status change with psychotic symptoms, paranoia, perceptual alterations, poor sleep and significant thought blocking. Pt denies SI, HI. Today she is a very poor historian-almost pre-catatonic at times, considering signing a three day notice of intent. Team report by history she may not be comfortable in this facility. Assessment plan for 09/21/2021 Continue current medical treatment elevated white blood count noted over the past month question related to cancer treatment.? No evidence of infection Patient depressed withdrawn preoccupied patient with recent treatment for ductal carcinoma stress of this might certainly lead to depressive almost catatonic episode 09/22/21 Pt with thought blocking improved from yeterday have restarted wellbutin hosp did not have sr cont clozapine evaluate baseline denies self harm oob more 09/23/21 Continue current plan of care. Collateral contacts with OP team, oncology. 09/24/21 Increase Abilify to 30 mg daily Pt currently refusing Lorazepam TDN expires 09/25/21-will file for civil commitment if pt persists in wanting discharge 09/25/21 Civil commitment filing completed Continue current regime. 09/26/21 Continue current regime 09/27/32 Decrease Abilify to 20 mg daily Risperdal 1.5 mg HS 09/28/21 Continue plan as above 09/29/21 No changes 09/30/21 Court 10/01/21 Chemotherapy 10/01/21 Increase Risperdal to 2.5 mg HS Decrease Abilify to 10 mg daily 10/02/21 Tolerating change back to Abilify from Risperdal Appetite is improved. Calmer, more visable, however continues with paranoia Jardiance ordered from [facility] pharmacy 10/03/21 Increase Abilify to 30 mg daily Will pursue validation of pt's HCP for continued chemotherapy Tentative chemotherapy 10/09. 10/04/21 Continue current regime 10/05 no changes to current regimen 10/06 no changes to current regimen 10/07/21 No positive effect from increase in Abilify Increase Clozaril to 100 mg bid, an increase of 50 mg daily, divided. Chemotherapy 10/09/21, Labs 10/08/21. 10/08/21 Tolerating Clozaril increase thus far Dexamethasone 4 mg hs and 4 mg a.m. pre chemo per Dr. Mora Support, encourage 10/09/21 Continue current plan of care 10/10/21 Continue current plan of care 10/11/21 Continue current plan. Will re-eval for Clozaril increase next week. 10/12/2021: Continue current regimen and plans.? No changes were made today 10/13/2021: Continue current plans and regimen. 10/14/21: Increase Clozaril to 125 mg bid ? EKG, CBCD, CMP 10/15 prior to chemotherapy 10/15/21: Continue current plan of care 10/16/21: Continue current plan. Tolerating Clozaril increase 10/17/21: Continue current regime. 10/18/21: Increase Clozaril to 150 mg bid ? Decrease Abilify to 20 mg daily ? ECT Consult 10/19/21: continue meds unchanged 10/20/21: pt continue to present as paranoid, withdrawn 10/21/21: Continue current regime. Labs/EKG 10/22. Some improvement today. 10/22/21: Labs/EKG WNL ? Meeting 10/24 with health care proxy's to discuss clozaril discontinuation ? ECT Consult 10/24/21: Continue current plan. 10/25/21: Continue current plan. 10/26: ECT may be indicated. Change Ativan to standing dose. 10/27 Increase Ativan to 1 mg TID and watch for sedation 10/28/21: CBCD, CMP, EKG 10/29/21 in preparation for chemotherapy ? Await Clozapine level results. 10/29/21: ECT consult 10/30 ? Chemotherapy 10/30 ? Await Clozapine level results. ? Tentative plan to taper Abilify, titrate Latuda. ? Family/HCP in agreement. Pt agrees as well. 10/30/21: Decrease Abilify to 10 mg daily to prepare to begin Latuda 10/31/21: Continue current plan. 11/01/21: Discontinue Abilify ? Latuda 20 mg 1800 11/02/21:? Continue current treatment plan 11/03/21:? Continue current treatment plan 11/04/21: Tolerating Latuda. Pt asks not to titrate yet. Some improvement noted. 11/05/21: Chemotherapy 11/06. Ready to titrate Latuda-family will discuss with pt. Thus far, a positive result, without adverse effect. ? EKG reading pending ? Sister will not be taking pt to chemotherapy on 11/06 as her son has tested positive for COVID this afternoon. Partner Kailey will accompany pt. along with team. 11/06/21: Increase Latuda to 40 mg daily after evening meal. ? Increase Colace to 200 mg hs ? Miralax prn ? Per nursing report, pt will no longer need steroid dosing on Tuesdays before chemotherapy, but will receive dosing on Wednesdays in the chemotherapy dept. 11/07/21: Continue current plan. 11/08/21: Change Lorazepam prn to 1 mg bid 11/09/21: Tolerating Lorazepam. Continue plan of care. 11/10/21: Considering Latuda increase. 11/11/21: Increase Latuda to 60 mg daily. Labs pre chemotherapy. 11/12/21: Continue current plan. Care discussed with HCP Kailey- review of Ativan dosing, therapeutic Latuda dosing,pt's not understanding that her thought blocking, paranoia, belief that she will go to long-term are target sx for medication increase. 11/14/21: Continue current plan. Discharge planning with consistent improvement. 11/15/21: continue current medications per primary treatment team. 11/16/2021 Patient seen in psychiatric follow-up patient depressed withdrawn hopeless helpless despondent again discussed option of ECT 11/17/2021 Patient's case reviewed with nursing staff.? Patient seen.? Patient somewhat with cardoso affect today less withdrawn able to engage in discussion regarding Latuda and possibility of ECT treatment.? Continue clozapine Latuda 11/18- discussed with significant other possibility of: underlying paraneoplastic syndrome related to breast carcinona- mainly 4 antibodies have been related to this type of cancer (DICE MAKER-2, Anti-yo (DICE MAKER-1); Anti-RI (corona-2); and antiamphiphysin) mostly causing cerebellar disfunction including opsoclonus (and myoclonus) which pt appears to have along with other cognitive and psychiatric symptoms. Will order MRI- r/o encephalitis related to chemo or any limbic/cerebellar pathology. Sent message to oncologist. Pt does psychiatric condition appears to significantly improved with dexamethaxone. Also if classic paraneoplastic, which is the one mostly related to cancer tumors,? serum antibodies testing may suffice (without CSF testing).? 11/19 continue current medications- pending mri, paraneoplastic panel. 11/20- continue current medications, pending discussion with oncology re: paraneoplastic syndome, pending MRI 11/21 will d/c wellbutrin as it can worsen psychosis. continue all other meds. MRI shows microvascular changes and atrophy- moca at this time wouldn't be accurate given prominent psych symptoms. 11/22 continue current medications. 11/23 continue tx plan. 11/24 continue tx plan 11/25/21-Continue current plan 11/26/21-Chemotherapy 11/27/21. Continue current plan 11/27/21- Continue current regime. Pt reports feeling tired after her treatment today. Labs pending. Pt discussing wanting to go home. 11/28- continue current tx. 11/29/21- Continue current plan of care. 11/30 continue current treatment plan 12/01 continue current treatment plan; patient brighter and more engaging then before 12/02 continue current medications. 12/04/21 Continue current regime. Tolerating Latuda increase on 12/03. 12/05/21 Increase Trazodone to 75 mg HS per pt request. 12/06/21 Continue current regime. 12/07/2021. Continue current regimen and plans 12/08/2021: Continue current plans and regimen 12/09/2021: Trial clonidine 0.1 mg QD PRN for tremors, anxiety 12/12/21: Continue current regime I spent minutes with the patient and/or on the patient floor today, greater than?50% of which was spent counseling/coordinating care. Patient educated on: therapeutic strategies and other Informed Consent: further education needed Reason for contiued inpatient stay Substantial Risk for: med/psych decompensation
[2021-12-12 18:00] VITALS: BP 109/64; PULSE 92; RESP 18; TEMP 36.4; O2SAT 97
[2021-12-12] MEDS: Lurasidone HCl 80 MG TABLET PO (18:22)
[2021-12-12 20:27] VITALS: BP 110/72; PULSE 119
[2021-12-12] MEDS: Docusate Sodium 100 MG CAPSULE 200 MG PO (20:32)
[2021-12-12] MEDS: Atorvastatin Calcium 10 MG TABLET 5 MG PO (20:33)
[2021-12-12] MEDS: Prazosin HCL 1 MG CAPSULE PO (20:40)
[2021-12-12] MEDS: traZODone HCL 25 MG HALFTAB 75 MG PO (20:40)
[2021-12-13] MEDS: Omeprazole 20 MG CAPSULE.DR PO (06:07)
[2021-12-13 06:10] VITALS: BP 116/75; PULSE 115; RESP 16; TEMP 36; O2SAT 97
[2021-12-13 06:21] LABS: Glucose, Whole Blood 118 mg/dL (60-115)
[2021-12-13] MEDS: metFORMIN HCl 1,000 MG TABLET 1000 MG PO ×2 (08:31→20:44)
[2021-12-13] MEDS: LORazepam 1 MG TABLET PO ×2 (08:32→20:43)
[2021-12-13] MEDS: Losartan Potassium 25 MG TABLET PO (08:32)
[2021-12-13] MEDS: cloZAPine 100 MG TABLET 150 MG PO ×2 (08:32→20:42)
[2021-12-13] MEDS: Multivitamin TABLET 1 TAB PO (08:33)
[2021-12-13] MEDS: Ascorbic Acid 500 MG TABLET 1000 MG PO (08:33)
[2021-12-13] MEDS: Cyanocobalamin (Vitamin B-12) 1,000 MCG TABLET 1000 MCG PO (08:33)
[2021-12-13] MEDS: Cholecalciferol (Vitamin D3) 10 MCG TABLET PO (08:33)
[2021-12-13] MEDS: cloNIDine HCL 0.1 MG TABLET PO ×2 (09:12→20:42)
[2021-12-13] MEDS: Ferrous Sulfate 324 MG TABLET.DR PO (09:12)
[2021-12-13] MEDS: Enoxaparin Sodium 40 MG/0.4 ML SYRINGE SUBCUT (12:04)
[2021-12-13 18:00] VITALS: BP 122/28; PULSE 106; TEMP 36.8; O2SAT 99
[2021-12-13] MEDS: Lurasidone HCl 80 MG TABLET PO (18:30)
--- NOTE | 2021-12-13 19:10 | HO.PSYCHPN ---
Subjective Subjective Date of Service: 12/13/21 Reason For Visit: Depression paranoia Subjective Notes: Section 8 Interim History: Sabra today is working on a schedule to structure her time at home. She has begun by writing her M-5 schedule down and is building on this anticipating discharge. Reports she slept OK last evening, feeling better rested and able to approach tasks. Comments that the unit is loud and noisy today and this is bothersome at times for her. Discussed what do we do if all of the lab tests come back negative. Concludes that I need to take it one day at a time. Medication Compliance: Yes Side effects from medications: No Attending Groups: Yes Review of Systems chemotherapy Medical Review of Systems: unchanged Review of Systems Reports confusion and Reports memory loss Psychiatric: Reports abnormal sleep pattern, Reports anxiety, Reports confusion, Reports difficulty concentrating and Reports memory loss Mental Status Exam Mental Status Exam Patient Appearance: Appropriate Patient Orientation: Person, Place, Time and Situation Level of Consciousness: Alert Patient Behavior: Talkative and Good Eye Contact Mood Description: Apprehensive Affect Description: Apprehensive Patient Cognition Impaired: Yes Ability to Follow Directions: Good Speech Pattern: Spontaneous Speech, Delayed and Long Pauses Memory Description: Intact Hallucinations: None Delusions: Paranoid Ideation (reality tests regarding if she is in trouble with police) Thought Process: Slowed Thinking and Confusion Thought Content: positive for Circumstantial, positive for Slowed Thinking and positive for Logical Judgement: Fair Diagnostics Vital Signs (24Hr): Vital Signs - 24 hr 12/12/21 20:27 12/13/21 06:10 Temperature 96.8 F Pulse Rate 119 H 115 H Respiratory Rate 16 Blood Pressure 110/72 116/75 Pulse Oximetry 97 BMI result Body Mass Index 30.8 Labs Results: 12/10/21 08:03 12/10/21 08:03 Labs: Laboratory Results - last 48 hr 12/12/21 12/13/21 06:17 06:09 POC Glucose 118 H 118 H Imaging Radiology Impressions: ITS Impressions Brain MRI 11/20/21 13:00 IMPRESSION: 1. No acute intracranial abnormalities. 2. Mild underlying microangiopathy and generalized cerebral volume loss. Medications Medications Current Medications Acetaminophen (Acetaminophen 325 Mg Tablet) 650 mg PO Q6H PRN PRN Reason: Headache/Pain Mild Scale (1-3) Last Admin: 11/22/21 08:44 Dose: 650 mg Documented by: Al Hydroxide/Mg Hydroxide (Magnesium Hydrox/Alum Hydrox 30 Ml Oral.Susp) 30 ml PO Q6H PRN PRN Reason: Heartburn/Nausea Last Admin: 10/02/21 14:41 Dose: 30 ml Documented by: Ascorbic Acid (Ascorbic Acid 500 Mg Tablet) 1,000 mg PO DAILY [facility] Last Admin: 12/13/21 08:33 Dose: 1,000 mg Documented by: Atorvastatin Calcium (Atorvastatin Calcium 10 Mg Tablet) 5 mg PO BEDTIME [facility] Last Admin: 12/12/21 20:33 Dose: 5 mg Documented by: Clonidine HCl (Clonidine Hcl 0.1 Mg Tablet) 0.1 mg PO BID [facility]; Protocol Last Admin: 12/13/21 09:12 Dose: 0.1 mg Documented by: Clonidine HCl (Clonidine Hcl 0.1 Mg Tablet) 0.1 mg PO DAILY PRN; Protocol PRN Reason: hyperarousal, anxiety Clozapine (Clozapine 100 Mg Tablet) 150 mg PO BID [facility] Last Admin: 12/13/21 08:32 Dose: 150 mg Documented by: Cyanocobalamin (Cyanocobalamin (Vitamin B-12) 1,000 Mcg Tablet) 1,000 mcg PO DAILY [facility] Last Admin: 12/13/21 08:33 Dose: 1,000 mcg Documented by: Docusate Sodium (Docusate Sodium 100 Mg Capsule) 200 mg PO BEDTIME [facility] Last Admin: 12/12/21 20:32 Dose: 200 mg Documented by: Enoxaparin Sodium (Enoxaparin Sodium 40 Mg/0.4 Ml Syringe) 40 mg SUBCUT Q24H [facility] Last Admin: 12/13/21 12:04 Dose: 40 mg Documented by: Ferrous Sulfate (Ferrous Sulfate 324 Mg Tablet.Dr) 324 mg PO DAILY [facility] Last Admin: 12/13/21 09:12 Dose: 324 mg Documented by: Hydroxyzine HCl (Hydroxyzine Hcl 25 Mg Tablet) 25 mg PO BEDTIME PRN PRN Reason: Anxiety Last Admin: 12/04/21 22:55 Dose: 25 mg Documented by: Lorazepam (Lorazepam 1 Mg Tablet) 1 mg PO BID [facility] Last Admin: 12/13/21 08:32 Dose: 1 mg Documented by: Losartan Potassium (Losartan Potassium 25 Mg Tablet) 25 mg PO DAILY [facility]; Protocol Last Admin: 12/13/21 08:32 Dose: 25 mg Documented by: Lurasidone HCl (Lurasidone Hcl 80 Mg Tablet) 80 mg PO 1800 [facility] Last Admin: 12/13/21 18:30 Dose: 80 mg Documented by: Magnesium Hydroxide (Milk Of Magnesia 30 Ml Oral.Susp) 30 ml PO DAILY PRN PRN Reason: Constipation Metformin HCl (Metformin Hcl 1,000 Mg Tablet) 1,000 mg PO BID [facility] Last Admin: 12/13/21 08:31 Dose: 1,000 mg Documented by: Multivitamins/Vitamin C (Multivitamin Tablet) 1 tab PO DAILY [facility] Last Admin: 12/13/21 08:33 Dose: 1 tab Documented by: Non-Formulary Medication (Cinnamon) 1,000 mg PO DAILY [facility] Last Admin: 12/13/21 08:34 Dose: 1,000 mg Documented by: Patient Own Medication ( Empagliflozin 10 Mg) 1 each PO DAILY [facility] Last Admin: 12/13/21 08:33 Dose: 1 each Documented by: Patient Own Medication (Dwayne Red Softgels) 1 each PO DAILY [facility] Last Admin: 12/13/21 09:11 Dose: 1 each Documented by: Omeprazole (Omeprazole 20 Mg Capsule.Dr) 20 mg PO DAILY@0630 [facility] Last Admin: 12/13/21 06:07 Dose: 20 mg Documented by: Ondansetron HCl (Ondansetron Odt 8 Mg Tab.Rapdis) 8 mg TRANSLINGU Q8H PRN PRN Reason: nausea Polyethylene Glycol (Polyethylene Glycol 3350 17 Gm Powd.Pack) 17 gm PO DAILY PRN PRN Reason: Constipation Last Admin: 11/06/21 12:24 Dose: 17 gm Documented by: Prazosin HCl (Prazosin Hcl 1 Mg Capsule) 1 mg PO BEDTIME PRN; Protocol PRN Reason: nightmares Last Admin: 12/12/21 20:40 Dose: 1 mg Documented by: Trazodone HCl (Trazodone Hcl 25 Mg Halftab) 75 mg PO BEDTIME PRN PRN Reason: Insomnia Last Admin: 12/12/21 20:40 Dose: 75 mg Documented by: Vitamin D (Cholecalciferol (Vitamin D3) 10 Mcg Tablet) 10 mcg PO DAILY [facility] Last Admin: 12/13/21 08:33 Dose: 10 mcg Documented by: Allergies Allergies Allergy/AdvReac Type Severity Reaction Status Date / Time lisinopril [LISINOPRIL] Allergy Unknown SWOLLEN Verified 09/17/21 08:42 LIPS, angioedema, swelling Assessment & Plan Assessment & Plan (1) Schizoaffective disorder: Status: Acute Code(s): F25.9 - Schizoaffective disorder, unspecified (2) Facial weakness: Status: Acute Code(s): R29.810 - Facial weakness (3) Encephalopathy: Status: Acute Code(s): G93.40 - Encephalopathy, unspecified Plan 50 yo female, hx of schizoaffective disorder, depressed with R breast cancer, having just completed first cycle of chemotherapy. Pt's partner and sister report to crisis team that pt has had a significant mental status change with psychotic symptoms, paranoia, perceptual alterations, poor sleep and significant thought blocking. Pt denies SI, HI. Today she is a very poor historian-almost pre-catatonic at times, considering signing a three day notice of intent. Team report by history she may not be comfortable in this facility. Assessment plan for 09/21/2021 Continue current medical treatment elevated white blood count noted over the past month question related to cancer treatment.? No evidence of infection Patient depressed withdrawn preoccupied patient with recent treatment for ductal carcinoma stress of this might certainly lead to depressive almost catatonic episode 09/22/21 Pt with thought blocking improved from yeterday have restarted wellbutin hosp did not have sr cont clozapine evaluate baseline denies self harm oob more 09/23/21 Continue current plan of care. Collateral contacts with OP team, oncology. 09/24/21 Increase Abilify to 30 mg daily Pt currently refusing Lorazepam TDN expires 09/25/21-will file for civil commitment if pt persists in wanting discharge 09/25/21 Civil commitment filing completed Continue current regime. 09/26/21 Continue current regime 09/27/32 Decrease Abilify to 20 mg daily Risperdal 1.5 mg HS 09/28/21 Continue plan as above 09/29/21 No changes 09/30/21 Court 10/01/21 Chemotherapy 10/01/21 Increase Risperdal to 2.5 mg HS Decrease Abilify to 10 mg daily 10/02/21 Tolerating change back to Abilify from Risperdal Appetite is improved. Calmer, more visable, however continues with paranoia Jardiance ordered from [facility] 10/03/21 Increase Abilify to 30 mg daily Will pursue validation of pt's HCP for continued chemotherapy Tentative chemotherapy 10/09. 10/04/21 Continue current regime 10/05 no changes to current regimen 10/06 no changes to current regimen 10/07/21 No positive effect from increase in Abilify Increase Clozaril to 100 mg bid, an increase of 50 mg daily, divided. Chemotherapy 10/09/21, Labs 10/08/21. 10/08/21 Tolerating Clozaril increase thus far Dexamethasone 4 mg hs and 4 mg a.m. pre chemo per Dr. Mora Support, encourage 10/09/21 Continue current plan of care 10/10/21 Continue current plan of care 10/11/21 Continue current plan. Will re-eval for Clozaril increase next week. 10/12/2021: Continue current regimen and plans.? No changes were made today 10/13/2021: Continue current plans and regimen. 10/14/21: Increase Clozaril to 125 mg bid ? EKG, CBCD, CMP 10/15 prior to chemotherapy 10/15/21: Continue current plan of care 10/16/21: Continue current plan. Tolerating Clozaril increase 10/17/21: Continue current regime. 10/18/21: Increase Clozaril to 150 mg bid ? Decrease Abilify to 20 mg daily ? ECT Consult 10/19/21: continue meds unchanged 10/20/21: pt continue to present as paranoid, withdrawn 10/21/21: Continue current regime. Labs/EKG 10/22. Some improvement today. 10/22/21: Labs/EKG WNL ? Meeting 10/24 with health care proxy's to discuss clozaril discontinuation ? ECT Consult 10/24/21: Continue current plan. 10/25/21: Continue current plan. 10/26: ECT may be indicated. Change Ativan to standing dose. 10/27 Increase Ativan to 1 mg TID and watch for sedation 10/28/21: CBCD, CMP, EKG 10/29/21 in preparation for chemotherapy ? Await Clozapine level results. 10/29/21: ECT consult 10/30 ? Chemotherapy 10/30 ? Await Clozapine level results. ? Tentative plan to taper Abilify, titrate Latuda. ? Family/HCP in agreement. Pt agrees as well. 10/30/21: Decrease Abilify to 10 mg daily to prepare to begin Latuda 10/31/21: Continue current plan. 11/01/21: Discontinue Abilify ? Latuda 20 mg 1800 11/02/21:? Continue current treatment plan 11/03/21:? Continue current treatment plan 11/04/21: Tolerating Latuda. Pt asks not to titrate yet. Some improvement noted. 11/05/21: Chemotherapy 11/06. Ready to titrate Latuda-family will discuss with pt. Thus far, a positive result, without adverse effect. ? EKG reading pending ? Sister will not be taking pt to chemotherapy on 11/06 as her son has tested positive for COVID this afternoon. Partner Kailey will accompany pt. along with team. 11/06/21: Increase Latuda to 40 mg daily after evening meal. ? Increase Colace to 200 mg hs ? Miralax prn ? Per nursing report, pt will no longer need steroid dosing on Tuesdays before chemotherapy, but will receive dosing on Wednesdays in the chemotherapy dept. 11/07/21: Continue current plan. 11/08/21: Change Lorazepam prn to 1 mg bid 11/09/21: Tolerating Lorazepam. Continue plan of care. 11/10/21: Considering Latuda increase. 11/11/21: Increase Latuda to 60 mg daily. Labs pre chemotherapy. 11/12/21: Continue current plan. Care discussed with HCP Kailey- review of Ativan dosing, therapeutic Latuda dosing,pt's not understanding that her thought blocking, paranoia, belief that she will go to [facility] are target sx for medication increase. 11/14/21: Continue current plan. Discharge planning with consistent improvement. 11/15/21: continue current medications per primary treatment team. 11/16/2021 Patient seen in psychiatric follow-up patient depressed withdrawn hopeless helpless despondent again discussed option of ECT 11/17/2021 Patient's case reviewed with nursing staff.? Patient seen.? Patient somewhat with cardoso affect today less withdrawn able to engage in discussion regarding Latuda and possibility of ECT treatment.? Continue clozapine Latuda 11/18- discussed with significant other possibility of: underlying paraneoplastic syndrome related to breast carcinona- mainly 4 antibodies have been related to this type of cancer ([employer] MACHINE [employer]PER[employer]-2, Anti-yo (CEMENTING MACHINE OPERATOR-1); Anti-RI (corona-2); and antiamphiphysin) mostly causing cerebellar disfunction including opsoclonus (and myoclonus) which pt appears to have along with other cognitive and psychiatric symptoms. Will order MRI- r/o encephalitis related to chemo or any limbic/cerebellar pathology. Sent message to oncologist. Pt does psychiatric condition appears to significantly improved with dexamethaxone. Also if classic paraneoplastic, which is the one mostly related to cancer tumors,? serum antibodies testing may suffice (without CSF testing).? 11/19 continue current medications- pending mri, paraneoplastic panel. 11/20- continue current medications, pending discussion with oncology re: paraneoplastic syndome, pending MRI 11/21 will d/c wellbutrin as it can worsen psychosis. continue all other meds. MRI shows microvascular changes and atrophy- moca at this time wouldn't be accurate given prominent psych symptoms. 11/22 continue current medications. 11/23 continue tx plan. 11/24 continue tx plan 11/25/21-Continue current plan 11/26/21-Chemotherapy 11/27/21. Continue current plan 11/27/21- Continue current regime. Pt reports feeling tired after her treatment today. Labs pending. Pt discussing wanting to go home. 11/28- continue current tx. 11/29/21- Continue current plan of care. 11/30 continue current treatment plan 12/01 continue current treatment plan; patient brighter and more engaging then before 12/02 continue current medications. 12/04/21 Continue current regime. Tolerating Latuda increase on 12/03. 12/05/21 Increase Trazodone to 75 mg HS per pt request. 12/06/21 Continue current regime. 12/07/2021. Continue current regimen and plans 12/08/2021: Continue current plans and regimen 12/09/2021: Trial clonidine 0.1 mg QD PRN for tremors, anxiety 12/12/21: Continue current regime 12/13/21: Continue current regime I spent minutes with the patient and/or on the patient floor today, greater than?50% of which was spent counseling/coordinating care. Patient educated on: medication risk/benefits and therapeutic strategies Informed Consent: understands and further education needed Reason for contiued inpatient stay Substantial Risk for: med/psych decompensation
[2021-12-13] MEDS: traZODone HCL 25 MG HALFTAB 75 MG PO (20:57)
[2021-12-13] MEDS: Prazosin HCL 1 MG CAPSULE PO (20:58)
[2021-12-13] MEDS: Atorvastatin Calcium 10 MG TABLET 5 MG PO (22:33)
[2021-12-13] MEDS: Docusate Sodium 100 MG CAPSULE 200 MG PO (22:34)
[2021-12-14 06:00] VITALS: BP 127/94; PULSE 120; RESP 14; TEMP 36.3; O2SAT 98
[2021-12-14] MEDS: Omeprazole 20 MG CAPSULE.DR PO (06:00)
[2021-12-14 06:15] LABS: Glucose, Whole Blood 123 mg/dL (60-115)
[2021-12-14] MEDS: cloZAPine 100 MG TABLET 150 MG PO ×2 (09:18→20:58)
[2021-12-14] MEDS: Ascorbic Acid 500 MG TABLET 1000 MG PO (09:19)
[2021-12-14] MEDS: cloNIDine HCL 0.1 MG TABLET PO ×2 (09:19→20:58)
[2021-12-14] MEDS: Cholecalciferol (Vitamin D3) 10 MCG TABLET PO (09:19)
[2021-12-14] MEDS: metFORMIN HCl 1,000 MG TABLET 1000 MG PO ×2 (09:19→21:01)
[2021-12-14] MEDS: LORazepam 1 MG TABLET PO ×2 (09:19→21:01)
[2021-12-14] MEDS: Losartan Potassium 25 MG TABLET PO (09:19)
[2021-12-14] MEDS: Cyanocobalamin (Vitamin B-12) 1,000 MCG TABLET 1000 MCG PO (09:19)
[2021-12-14] MEDS: Multivitamin TABLET 1 TAB PO (09:19)
[2021-12-14] MEDS: Ferrous Sulfate 324 MG TABLET.DR PO (09:19)
[2021-12-14] MEDS: Enoxaparin Sodium 40 MG/0.4 ML SYRINGE SUBCUT (12:11)
[2021-12-14 18:00] VITALS: BP 128/86; PULSE 128; RESP 18; TEMP 36.6; O2SAT 99
[2021-12-14] MEDS: Lurasidone HCl 80 MG TABLET PO (19:40)
--- NOTE | 2021-12-14 19:53 | HO.PSYCHPN ---
Subjective Subjective Date of Service: 12/14/21 Reason For Visit: Depression paranoia Subjective Notes: Rendon Warning and Conditional Voluntary Healthcare Proxy: No Guardianship: No Medical Problems Affecting Mental Status: No Interim History: Patient seen and discussed with team. Patient evaluated today and upon interview she reports she is doing okay. Denies SI. Doing good with medications. Speech latency, has cognitive SE. Sleep is okay. Feels down, combination of depressed and tired. References feeling overwhelmed with medical stuff. Wants to go home, looking forward to discharge.? In the milieu, patient is safe and appropriate in behavior. Denies SI/SIB/HI upon inquiry. Denies irritability or assaultive ideation. Says she feels safe. Medication Compliance: Yes Side effects from medications: No Attending Groups: Yes Review of Systems Acute medical concerns: No Medical Review of Systems: unchanged Mental Status Exam Mental Status Exam Narrative: Patient Appearance:?Appropriate Patient Orientation:?Person, Place, Time and Situation Level of Consciousness:?Alert Patient Behavior:?Talkative and Good Eye Contact Mood Description:?Apprehensive Affect Description:?Apprehensive Patient Cognition Impaired:?Yes Ability to Follow Directions:?Good Speech Pattern:?Spontaneous Speech, Delayed and Long Pauses Memory Description:?Intact Hallucinations:?None Delusions:?Paranoid Ideation (reality tests regarding if she is in trouble with police) Thought Process:?Slowed Thinking and Confusion Thought Content:?positive for Circumstantial, positive for Slowed Thinking and positive for Logical Judgment:?Fair Diagnostics Vital Signs (24Hr): Vital Signs - 24 hr 12/14/21 06:00 12/14/21 18:00 Temperature 97.4 F 97.9 F Pulse Rate 120 H 128 H Respiratory Rate 14 18 Blood Pressure 127/94 H 128/86 Pulse Oximetry 98 99 BMI result Body Mass Index 30.8 Labs Results: 12/10/21 08:03 12/10/21 08:03 Labs: Laboratory Results - last 48 hr 12/13/21 12/14/21 06:09 06:05 POC Glucose 118 H 123 H Imaging Radiology Impressions: ITS Impressions Brain MRI 11/20/21 13:00 IMPRESSION: 1. No acute intracranial abnormalities. 2. Mild underlying microangiopathy and generalized cerebral volume loss. Medications Medications Current Medications Acetaminophen (Acetaminophen 325 Mg Tablet) 650 mg PO Q6H PRN PRN Reason: Headache/Pain Mild Scale (1-3) Last Admin: 11/22/21 08:44 Dose: 650 mg Documented by: Al Hydroxide/Mg Hydroxide (Magnesium Hydrox/Alum Hydrox 30 Ml Oral.Susp) 30 ml PO Q6H PRN PRN Reason: Heartburn/Nausea Last Admin: 10/02/21 14:41 Dose: 30 ml Documented by: Ascorbic Acid (Ascorbic Acid 500 Mg Tablet) 1,000 mg PO DAILY [facility] Last Admin: 12/14/21 09:19 Dose: 1,000 mg Documented by: Atorvastatin Calcium (Atorvastatin Calcium 10 Mg Tablet) 5 mg PO BEDTIME MYRTLE Last Admin: 12/14/21 20:46 Dose: 5 mg Documented by: Clonidine HCl (Clonidine Hcl 0.1 Mg Tablet) 0.1 mg PO BID [facility]; Protocol Last Admin: 12/14/21 20:58 Dose: 0.1 mg Documented by: Clonidine HCl (Clonidine Hcl 0.1 Mg Tablet) 0.1 mg PO DAILY PRN; Protocol PRN Reason: hyperarousal, anxiety Clozapine (Clozapine 100 Mg Tablet) 150 mg PO BID [facility] Last Admin: 12/14/21 20:58 Dose: 150 mg Documented by: Cyanocobalamin (Cyanocobalamin (Vitamin B-12) 1,000 Mcg Tablet) 1,000 mcg PO DAILY [facility] Last Admin: 12/14/21 09:19 Dose: 1,000 mcg Documented by: Docusate Sodium (Docusate Sodium 100 Mg Capsule) 200 mg PO BEDTIME [facility] Last Admin: 12/14/21 21:00 Dose: 200 mg Documented by: Enoxaparin Sodium (Enoxaparin Sodium 40 Mg/0.4 Ml Syringe) 40 mg SUBCUT Q24H [facility] Last Admin: 12/14/21 12:11 Dose: 40 mg Documented by: Ferrous Sulfate (Ferrous Sulfate 324 Mg Tablet.) 324 mg PO DAILY [facility] Last Admin: 12/14/21 09:19 Dose: 324 mg Documented by: Hydroxyzine HCl (Hydroxyzine Hcl 25 Mg Tablet) 25 mg PO BEDTIME PRN PRN Reason: Anxiety Last Admin: 12/04/21 22:55 Dose: 25 mg Documented by: Lorazepam (Lorazepam 1 Mg Tablet) 1 mg PO BID [facility] Last Admin: 12/14/21 21:01 Dose: 1 mg Documented by: Losartan Potassium (Losartan Potassium 25 Mg Tablet) 25 mg PO DAILY [facility]; Protocol Last Admin: 12/14/21 09:19 Dose: 25 mg Documented by: Lurasidone HCl (Lurasidone Hcl 80 Mg Tablet) 80 mg PO 1800 [facility] Last Admin: 12/14/21 19:40 Dose: 80 mg Documented by: Magnesium Hydroxide (Milk Of Magnesia 30 Ml Oral.Susp) 30 ml PO DAILY PRN PRN Reason: Constipation Metformin HCl (Metformin Hcl 1,000 Mg Tablet) 1,000 mg PO BID [facility] Last Admin: 12/14/21 21:01 Dose: 1,000 mg Documented by: Multivitamins/Vitamin C (Multivitamin Tablet) 1 tab PO DAILY [facility] Last Admin: 12/14/21 09:19 Dose: 1 tab Documented by: Non-Formulary Medication (Cinnamon) 1,000 mg PO DAILY [facility] Last Admin: 12/14/21 09:18 Dose: 1,000 mg Documented by: Patient Own Medication ( Empagliflozin 10 Mg) 1 each PO DAILY [facility] Last Admin: 12/14/21 09:18 Dose: 1 each Documented by: Patient Own Medication (Dwayne Red Softgels) 1 each PO DAILY [facility] Last Admin: 12/14/21 09:18 Dose: 1 each Documented by: Omeprazole (Omeprazole 20 Mg Capsule.Dr) 20 mg PO DAILY@0630 [facility] Last Admin: 12/14/21 06:00 Dose: 20 mg Documented by: Ondansetron HCl (Ondansetron Odt 8 Mg Tab.Rapdis) 8 mg TRANSLINGU Q8H PRN PRN Reason: nausea Polyethylene Glycol (Polyethylene Glycol 3350 17 Gm Powd.Pack) 17 gm PO DAILY PRN PRN Reason: Constipation Last Admin: 11/06/21 12:24 Dose: 17 gm Documented by: Prazosin HCl (Prazosin Hcl 1 Mg Capsule) 1 mg PO BEDTIME PRN; Protocol PRN Reason: nightmares Last Admin: 12/13/21 20:58 Dose: 1 mg Documented by: Trazodone HCl (Trazodone Hcl 25 Mg Halftab) 75 mg PO BEDTIME PRN PRN Reason: Insomnia Last Admin: 12/14/21 21:00 Dose: 75 mg Documented by: Vitamin D (Cholecalciferol (Vitamin D3) 10 Mcg Tablet) 10 mcg PO DAILY [facility] Last Admin: 12/14/21 09:19 Dose: 10 mcg Documented by: Allergies Allergies Allergy/AdvReac Type Severity Reaction Status Date / Time lisinopril [LISINOPRIL] Allergy Unknown SWOLLEN Verified 09/17/21 08:42 LIPS, angioedema, swelling Assessment & Plan Assessment & Plan (1) Schizoaffective disorder: Status: Acute Code(s): F25.9 - Schizoaffective disorder, unspecified (2) Facial weakness: Status: Acute Code(s): R29.810 - Facial weakness (3) Encephalopathy: Status: Acute Code(s): G93.40 - Encephalopathy, unspecified Plan 50 yo female, hx of schizoaffective disorder, depressed with R breast cancer, having just completed first cycle of chemotherapy. Pt's partner and sister report to crisis team that pt has had a significant mental status change with psychotic symptoms, paranoia, perceptual alterations, poor sleep and significant thought blocking. Pt denies SI, HI. Today she is a very poor historian-almost pre-catatonic at times, considering signing a three day notice of intent. Team report by history she may not be comfortable in this facility. Assessment plan for 09/21/2021 Continue current medical treatment elevated white blood count noted over the past month question related to cancer treatment.? No evidence of infection Patient depressed withdrawn preoccupied patient with recent treatment for ductal carcinoma stress of this might certainly lead to depressive almost catatonic episode 09/22/21 Pt with thought blocking improved from yeterday have restarted wellbutin hosp did not have sr cont clozapine evaluate baseline denies self harm oob more 09/23/21 Continue current plan of care. Collateral contacts with OP team, oncology. 09/24/21 Increase Abilify to 30 mg daily Pt currently refusing Lorazepam TDN expires 09/25/21-will file for civil commitment if pt persists in wanting discharge 09/25/21 Civil commitment filing completed Continue current regime. 09/26/21 Continue current regime 09/27/32 Decrease Abilify to 20 mg daily Risperdal 1.5 mg HS 09/28/21 Continue plan as above 09/29/21 No changes 09/30/21 Court 10/01/21 Chemotherapy 10/01/21 Increase Risperdal to 2.5 mg HS Decrease Abilify to 10 mg daily 10/02/21 Tolerating change back to Abilify from Risperdal Appetite is improved. Calmer, more visable, however continues with paranoia Jardiance ordered from [facility] 10/03/21 Increase Abilify to 30 mg daily Will pursue validation of pt's HCP for continued chemotherapy Tentative chemotherapy 10/09. 10/04/21 Continue current regime 10/05 no changes to current regimen 10/06 no changes to current regimen 10/07/21 No positive effect from increase in Abilify Increase Clozaril to 100 mg bid, an increase of 50 mg daily, divided. Chemotherapy 10/09/21, Labs 10/08/21. 10/08/21 Tolerating Clozaril increase thus far Dexamethasone 4 mg hs and 4 mg a.m. pre chemo per Dr. Mora Support, encourage 10/09/21 Continue current plan of care 10/10/21 Continue current plan of care 10/11/21 Continue current plan. Will re-eval for Clozaril increase next week. 10/12/2021: Continue current regimen and plans.? No changes were made today 10/13/2021: Continue current plans and regimen. 10/14/21: Increase Clozaril to 125 mg bid ? EKG, CBCD, CMP 10/15 prior to chemotherapy 10/15/21: Continue current plan of care 10/16/21: Continue current plan. Tolerating Clozaril increase 10/17/21: Continue current regime. 10/18/21: Increase Clozaril to 150 mg bid ? Decrease Abilify to 20 mg daily ? ECT Consult 10/19/21: continue meds unchanged 10/20/21: pt continue to present as paranoid, withdrawn 10/21/21: Continue current regime. Labs/EKG 10/22. Some improvement today. 10/22/21: Labs/EKG WNL ? Meeting 10/24 with health care proxy's to discuss clozaril discontinuation ? ECT Consult 10/24/21: Continue current plan. 10/25/21: Continue current plan. 10/26: ECT may be indicated. Change Ativan to standing dose. 10/27 Increase Ativan to 1 mg TID and watch for sedation 10/28/21: CBCD, CMP, EKG 10/29/21 in preparation for chemotherapy ? Await Clozapine level results. 10/29/21: ECT consult 10/30 ? Chemotherapy 10/30 ? Await Clozapine level results. ? Tentative plan to taper Abilify, titrate Latuda. ? Family/HCP in agreement. Pt agrees as well. 10/30/21: Decrease Abilify to 10 mg daily to prepare to begin Latuda 10/31/21: Continue current plan. 11/01/21: Discontinue Abilify ? Latuda 20 mg 1800 11/02/21:? Continue current treatment plan 11/03/21:? Continue current treatment plan 11/04/21: Tolerating Latuda. Pt asks not to titrate yet. Some improvement noted. 11/05/21: Chemotherapy 11/06. Ready to titrate Latuda-family will discuss with pt. Thus far, a positive result, without adverse effect. ? EKG reading pending ? Sister will not be taking pt to chemotherapy on 11/06 as her son has tested positive for COVID this afternoon. Partner Kailey will accompany pt. along with team. 11/06/21: Increase Latuda to 40 mg daily after evening meal. ? Increase Colace to 200 mg hs ? Miralax prn ? Per nursing report, pt will no longer need steroid dosing on Tuesdays before chemotherapy, but will receive dosing on Wednesdays in the chemotherapy dept. 11/07/21: Continue current plan. 11/08/21: Change Lorazepam prn to 1 mg bid 11/09/21: Tolerating Lorazepam. Continue plan of care. 11/10/21: Considering Latuda increase. 11/11/21: Increase Latuda to 60 mg daily. Labs pre chemotherapy. 11/12/21: Continue current plan. Care discussed with HCP Kailey- review of Ativan dosing, therapeutic Latuda dosing,pt's not understanding that her thought blocking, paranoia, belief that she will go to [facility] are target sx for medication increase. 11/14/21: Continue current plan. Discharge planning with consistent improvement. 11/15/21: continue current medications per primary treatment team. 11/16/2021 Patient seen in psychiatric follow-up patient depressed withdrawn hopeless helpless despondent again discussed option of ECT 11/17/2021 Patient's case reviewed with nursing staff.? Patient seen.? Patient somewhat with cardoso affect today less withdrawn able to engage in discussion regarding Latuda and possibility of ECT treatment.? Continue clozapine Latuda 11/18- discussed with significant other possibility of: underlying paraneoplastic syndrome related to breast carcinona- mainly 4 antibodies have been related to this type of cancer (CONE PICKER-2, Anti-yo (CONE PICKER-1); Anti-RI (corona-2); and antiamphiphysin) mostly causing cerebellar disfunction including opsoclonus (and myoclonus) which pt appears to have along with other cognitive and psychiatric symptoms. Will order MRI- r/o encephalitis related to chemo or any limbic/cerebellar pathology. Sent message to oncologist. Pt does psychiatric condition appears to significantly improved with dexamethaxone. Also if classic paraneoplastic, which is the one mostly related to cancer tumors,? serum antibodies testing may suffice (without CSF testing).? 11/19 continue current medications- pending mri, paraneoplastic panel. 11/20- continue current medications, pending discussion with oncology re: paraneoplastic syndome, pending MRI 11/21 will d/c wellbutrin as it can worsen psychosis. continue all other meds. MRI shows microvascular changes and atrophy- moca at this time wouldn't be accurate given prominent psych symptoms. 11/22 continue current medications. 11/23 continue tx plan. 11/24 continue tx plan 11/25/21-Continue current plan 11/26/21-Chemotherapy 11/27/21. Continue current plan 11/27/21- Continue current regime. Pt reports feeling tired after her treatment today. Labs pending. Pt discussing wanting to go home. 11/28- continue current tx. 11/29/21- Continue current plan of care. 11/30 continue current treatment plan 12/01 continue current treatment plan; patient brighter and more engaging then before 12/02 continue current medications. 12/04/21 Continue current regime. Tolerating Latuda increase on 12/03. 12/05/21 Increase Trazodone to 75 mg HS per pt request. 12/06/21 Continue current regime. 12/07/2021. Continue current regimen and plans 12/08/2021: Continue current plans and regimen 12/09/2021: Trial clonidine 0.1 mg QD PRN for tremors, anxiety 12/10/2021: No med changes made today 12/14/2021: No med changes today I spent minutes with the patient and/or on the patient floor today, greater than?50% of which was spent counseling/coordinating care. Patient educated on: therapeutic strategies Reason for contiued inpatient stay Substantial Risk for: inability to function and med/psych decompensation
[2021-12-14] MEDS: Atorvastatin Calcium 10 MG TABLET 5 MG PO (20:46)
[2021-12-14] MEDS: traZODone HCL 25 MG HALFTAB 75 MG PO (21:00)
[2021-12-14] MEDS: Docusate Sodium 100 MG CAPSULE 200 MG PO (21:00)
[2021-12-15 06:00] VITALS: BP 135/76; PULSE 129; RESP 14; TEMP 36.3; O2SAT 96
[2021-12-15] MEDS: Omeprazole 20 MG CAPSULE.DR PO (06:06)
[2021-12-15 06:20] LABS: Glucose, Whole Blood 111 mg/dL (60-115)
[2021-12-15] MEDS: metFORMIN HCl 1,000 MG TABLET 1000 MG PO ×2 (08:14→22:00)
[2021-12-15] MEDS: Losartan Potassium 25 MG TABLET PO (08:14)
[2021-12-15] MEDS: Ferrous Sulfate 324 MG TABLET.DR PO (08:14)
[2021-12-15] MEDS: Multivitamin TABLET 1 TAB PO (08:14)
[2021-12-15] MEDS: LORazepam 1 MG TABLET PO ×2 (08:14→21:59)
[2021-12-15] MEDS: cloNIDine HCL 0.1 MG TABLET PO ×2 (08:14→21:59)
[2021-12-15] MEDS: Cyanocobalamin (Vitamin B-12) 1,000 MCG TABLET 1000 MCG PO (08:14)
[2021-12-15] MEDS: Ascorbic Acid 500 MG TABLET 1000 MG PO (08:14)
[2021-12-15] MEDS: Cholecalciferol (Vitamin D3) 10 MCG TABLET PO (08:14)
[2021-12-15] MEDS: cloZAPine 100 MG TABLET 150 MG PO ×2 (08:14→22:00)
[2021-12-15] MEDS: Enoxaparin Sodium 40 MG/0.4 ML SYRINGE SUBCUT (11:54)
[2021-12-15] MEDS: Lurasidone HCl 80 MG TABLET PO (18:21)
--- NOTE | 2021-12-15 20:53 | P.PNPSI_ITS ---
Subjective Subjective Date of Service: 12/15/21 Reason For Visit: Depression paranoia Subjective Notes: Rendon Warning Healthcare Proxy: No Guardianship: No Medical Problems Affecting Mental Status: No Interim History: Patient seen and discussed with team. Patient evaluated today and upon interview she reports she is doing alright, no questions or concerns, continues to present with cognitive sx, says she feels js stuck, its hard to process information coming in. Pt says she tries to journal but finds it hard to keep track. Says she should probably be hearing back from [facility]. Says her thoughts are a little bit better. Still has difficulty falling asleep due to racing thoughts, willing to trial trazodone 100 mg. Denies tremors, somewhat more clear today and fluid. Says I feel js lonely. Partner is coming today for a visit. In the milieu, patient is safe and appropriate in behavior. Denies SI/SIB/HI upon inquiry. Denies irritability or assaultive ideation. Says she feels safe. Medication Compliance: Yes Side effects from medications: No Attending Groups: Yes Review of Systems Acute medical concerns: No Medical Review of Systems: unchanged Mental Status Exam Mental Status Exam Narrative: Patient Appearance:?Appropriate Patient Orientation:?Person, Place, Time and Situation Level of Consciousness:?Alert Patient Behavior:?Talkative and Good Eye Contact Mood Description:?Apprehensive Affect Description:?Apprehensive Patient Cognition Impaired:?Yes Ability to Follow Directions:?Good Speech Pattern:?Spontaneous Speech, Delayed and Long Pauses Memory Description:?Intact Hallucinations:?None Delusions:?Paranoid Ideation (reality tests regarding if she is in trouble with police) Thought Process:?Slowed Thinking and Confusion Thought Content:?positive for Circumstantial, positive for Slowed Thinking and positive for Logical Judgment:?Fair Diagnostics Vital Signs (24Hr): Vital Signs - 24 hr 12/16/21 20:10 Temperature 98.6 F Pulse Rate 120 H Respiratory Rate 20 Blood Pressure 112/80 Pulse Oximetry 97 BMI result Body Mass Index 30.8 Labs Results: 12/10/21 08:03 12/10/21 08:03 Labs: Laboratory Results - last 48 hr 12/15/21 12/16/21 06:13 06:38 POC Glucose 111 135 H Imaging Radiology Impressions: ITS Impressions Brain MRI 11/20/21 13:00 IMPRESSION: 1. No acute intracranial abnormalities. 2. Mild underlying microangiopathy and generalized cerebral volume loss. Medications Medications Current Medications Acetaminophen (Acetaminophen 325 Mg Tablet) 650 mg PO Q6H PRN PRN Reason: Headache/Pain Mild Scale (1-3) Last Admin: 11/22/21 08:44 Dose: 650 mg Documented by: Al Hydroxide/Mg Hydroxide (Magnesium Hydrox/Alum Hydrox 30 Ml Oral.Susp) 30 ml PO Q6H PRN PRN Reason: Heartburn/Nausea Last Admin: 10/02/21 14:41 Dose: 30 ml Documented by: Ascorbic Acid (Ascorbic Acid 500 Mg Tablet) 1,000 mg PO DAILY [facility] Last Admin: 12/16/21 09:10 Dose: 1,000 mg Documented by: Atorvastatin Calcium (Atorvastatin Calcium 10 Mg Tablet) 5 mg PO BEDTIME MYRTLE Last Admin: 12/16/21 21:41 Dose: 5 mg Documented by: Clonidine HCl (Clonidine Hcl 0.1 Mg Tablet) 0.1 mg PO BID [facility]; Protocol Last Admin: 12/16/21 21:44 Dose: 0.1 mg Documented by: Clonidine HCl (Clonidine Hcl 0.1 Mg Tablet) 0.1 mg PO DAILY PRN; Protocol PRN Reason: hyperarousal, anxiety Clozapine (Clozapine 100 Mg Tablet) 150 mg PO BID [facility] Last Admin: 12/16/21 21:44 Dose: 150 mg Documented by: Cyanocobalamin (Cyanocobalamin (Vitamin B-12) 1,000 Mcg Tablet) 1,000 mcg PO DAILY [facility] Last Admin: 12/16/21 09:11 Dose: 1,000 mcg Documented by: Docusate Sodium (Docusate Sodium 100 Mg Capsule) 200 mg PO BEDTIME MYRTLE Last Admin: 12/16/21 21:41 Dose: 200 mg Documented by: Enoxaparin Sodium (Enoxaparin Sodium 40 Mg/0.4 Ml Syringe) 40 mg SUBCUT Q24H [facility] Last Admin: 12/16/21 11:00 Dose: 40 mg Documented by: Ferrous Sulfate (Ferrous Sulfate 324 Mg Tablet.Dr) 324 mg PO DAILY [facility] Last Admin: 12/16/21 09:08 Dose: 324 mg Documented by: Hydroxyzine HCl (Hydroxyzine Hcl 25 Mg Tablet) 25 mg PO BEDTIME PRN PRN Reason: Anxiety Last Admin: 12/04/21 22:55 Dose: 25 mg Documented by: Lorazepam (Lorazepam 1 Mg Tablet) 1 mg PO BID [facility] Last Admin: 12/16/21 21:43 Dose: 1 mg Documented by: Losartan Potassium (Losartan Potassium 25 Mg Tablet) 25 mg PO DAILY [facility]; Protocol Last Admin: 12/16/21 09:09 Dose: 25 mg Documented by: Lurasidone HCl (Lurasidone Hcl 80 Mg Tablet) 80 mg PO 1800 [facility] Last Admin: 12/16/21 18:13 Dose: 80 mg Documented by: Magnesium Hydroxide (Milk Of Magnesia 30 Ml Oral.Susp) 30 ml PO DAILY PRN PRN Reason: Constipation Metformin HCl (Metformin Hcl 1,000 Mg Tablet) 1,000 mg PO BID [facility] Last Admin: 12/16/21 21:43 Dose: 1,000 mg Documented by: Multivitamins/Vitamin C (Multivitamin Tablet) 1 tab PO DAILY [facility] Last Admin: 12/16/21 09:09 Dose: 1 tab Documented by: Non-Formulary Medication (Cinnamon) 1,000 mg PO DAILY [facility] Last Admin: 12/16/21 09:07 Dose: 1,000 mg Documented by: Patient Own Medication ( Empagliflozin 10 Mg) 1 each PO DAILY [facility] Last Admin: 12/16/21 09:07 Dose: 1 each Documented by: Patient Own Medication (Dwayne Red Softgels) 1 each PO DAILY [facility] Last Admin: 12/16/21 09:07 Dose: 1 each Documented by: Omeprazole (Omeprazole 20 Mg Capsule.) 20 mg PO DAILY@0630 [facility] Last Admin: 12/16/21 06:41 Dose: 20 mg Documented by: Ondansetron HCl (Ondansetron Odt 8 Mg Tab.Rapdis) 8 mg TRANSLINGU Q8H PRN PRN Reason: nausea Polyethylene Glycol (Polyethylene Glycol 3350 17 Gm Powd.Pack) 17 gm PO DAILY PRN PRN Reason: Constipation Last Admin: 11/06/21 12:24 Dose: 17 gm Documented by: Prazosin HCl (Prazosin Hcl 1 Mg Capsule) 1 mg PO BEDTIME PRN; Protocol PRN Reason: nightmares Last Admin: 12/13/21 20:58 Dose: 1 mg Documented by: Trazodone HCl (Trazodone Hcl 100 Mg Tablet) 100 mg PO BEDTIME PRN PRN Reason: Insomnia Last Admin: 12/16/21 21:46 Dose: 100 mg Documented by: Vitamin D (Cholecalciferol (Vitamin D3) 10 Mcg Tablet) 10 mcg PO DAILY MYRTLE Last Admin: 12/16/21 09:10 Dose: 10 mcg Documented by: Allergies Allergies Allergy/AdvReac Type Severity Reaction Status Date / Time lisinopril [LISINOPRIL] Allergy Unknown SWOLLEN Verified 09/17/21 08:42 LIPS, angioedema, swelling Assessment & Plan Assessment & Plan (1) Schizoaffective disorder: Status: Acute Code(s): F25.9 - Schizoaffective disorder, unspecified (2) Facial weakness: Status: Acute Code(s): R29.810 - Facial weakness (3) Encephalopathy: Status: Acute Code(s): G93.40 - Encephalopathy, unspecified Plan 50 yo female, hx of schizoaffective disorder, depressed with R breast cancer, having just completed first cycle of chemotherapy. Pt's partner and sister report to crisis team that pt has had a significant mental status change with psychotic symptoms, paranoia, perceptual alterations, poor sleep and significant thought blocking. Pt denies SI, HI. Today she is a very poor historian-almost pre-catatonic at times, considering signing a three day notice of intent. Team report by history she may not be comfortable in this facility. Assessment plan for 09/21/2021 Continue current medical treatment elevated white blood count noted over the past month question related to cancer treatment.? No evidence of infection Patient depressed withdrawn preoccupied patient with recent treatment for ductal carcinoma stress of this might certainly lead to depressive almost catatonic episode 09/22/21 Pt with thought blocking improved from yeterday have restarted wellbutin hosp did not have sr cont clozapine evaluate baseline denies self harm oob more 09/23/21 Continue current plan of care. Collateral contacts with OP team, oncology. 09/24/21 Increase Abilify to 30 mg daily Pt currently refusing Lorazepam TDN expires 09/25/21-will file for civil commitment if pt persists in wanting discharge 09/25/21 Civil commitment filing completed Continue current regime. 09/26/21 Continue current regime 09/27/32 Decrease Abilify to 20 mg daily Risperdal 1.5 mg HS 09/28/21 Continue plan as above 09/29/21 No changes 09/30/21 Court 10/01/21 Chemotherapy 10/01/21 Increase Risperdal to 2.5 mg HS Decrease Abilify to 10 mg daily 10/02/21 Tolerating change back to Abilify from Risperdal Appetite is improved. Calmer, more visable, however continues with paranoia Jardiance ordered from [facility] pharmacy 10/03/21 Increase Abilify to 30 mg daily Will pursue validation of pt's HCP for continued chemotherapy Tentative chemotherapy 10/09. 10/04/21 Continue current regime 10/05 no changes to current regimen 10/06 no changes to current regimen 10/07/21 No positive effect from increase in Abilify Increase Clozaril to 100 mg bid, an increase of 50 mg daily, divided. Chemotherapy 10/09/21, Labs 10/08/21. 10/08/21 Tolerating Clozaril increase thus far Dexamethasone 4 mg hs and 4 mg a.m. pre chemo per Dr. Mora Support, encourage 10/09/21 Continue current plan of care 10/10/21 Continue current plan of care 10/11/21 Continue current plan. Will re-eval for Clozaril increase next week. 10/12/2021: Continue current regimen and plans.? No changes were made today 10/13/2021: Continue current plans and regimen. 10/14/21: Increase Clozaril to 125 mg bid ? EKG, CBCD, CMP 10/15 prior to chemotherapy 10/15/21: Continue current plan of care 10/16/21: Continue current plan. Tolerating Clozaril increase 10/17/21: Continue current regime. 10/18/21: Increase Clozaril to 150 mg bid ? Decrease Abilify to 20 mg daily ? ECT Consult 10/19/21: continue meds unchanged 10/20/21: pt continue to present as paranoid, withdrawn 10/21/21: Continue current regime. Labs/EKG 10/22. Some improvement today. 10/22/21: Labs/EKG WNL ? Meeting 10/24 with health care proxy's to discuss clozaril discontinuation ? ECT Consult 10/24/21: Continue current plan. 10/25/21: Continue current plan. 10/26: ECT may be indicated. Change Ativan to standing dose. 10/27 Increase Ativan to 1 mg TID and watch for sedation 10/28/21: CBCD, CMP, EKG 10/29/21 in preparation for chemotherapy ? Await Clozapine level results. 10/29/21: ECT consult 10/30 ? Chemotherapy 10/30 ? Await Clozapine level results. ? Tentative plan to taper Abilify, titrate Latuda. ? Family/HCP in agreement. Pt agrees as well. 10/30/21: Decrease Abilify to 10 mg daily to prepare to begin Latuda 10/31/21: Continue current plan. 11/01/21: Discontinue Abilify ? Latuda 20 mg 1800 11/02/21:? Continue current treatment plan 11/03/21:? Continue current treatment plan 11/04/21: Tolerating Latuda. Pt asks not to titrate yet. Some improvement noted. 11/05/21: Chemotherapy 11/06. Ready to titrate Latuda-family will discuss with pt. Thus far, a positive result, without adverse effect. ? EKG reading pending ? Sister will not be taking pt to chemotherapy on 11/06 as her son has tested positive for COVID this afternoon. Partner Kailey will accompany pt. along with team. 11/06/21: Increase Latuda to 40 mg daily after evening meal. ? Increase Colace to 200 mg hs ? Miralax prn ? Per nursing report, pt will no longer need steroid dosing on Tuesdays before chemotherapy, but will receive dosing on Wednesdays in the emotherapy dept. 11/07/21: Continue current plan. 11/08/21: Change Lorazepam prn to 1 mg bid 11/09/21: Tolerating Lorazepam. Continue plan of care. 11/10/21: Considering Latuda increase. 11/11/21: Increase Latuda to 60 mg daily. Labs pre chemotherapy. 11/12/21: Continue current plan. Care discussed with HCP Kailey- review of Ativan dosing, therapeutic Latuda dosing,pt's not understanding that her thought blocking, paranoia, belief that she will go to [facility] are target sx for medication increase. 11/14/21: Continue current plan. Discharge planning with consistent improvement. 11/15/21: continue current medications per primary treatment team. 11/16/2021 Patient seen in psychiatric follow-up patient depressed withdrawn hopeless helpless despondent again discussed option of ECT 11/17/2021 Patient's case reviewed with nursing staff.? Patient seen.? Patient somewhat with cardoso affect today less withdrawn able to engage in discussion regarding Latuda and possibility of ECT treatment.? Continue clozapine Latuda 11/18- discussed with significant other possibility of: underlying paraneoplastic syndrome related to breast carcinona- mainly 4 antibodies have been related to this type of cancer ([employer]-2, Anti-yo (POWERHOUSE ENGINEER-1); Anti-RI (corona-2); and antiamphiphysin) mostly causing cerebellar disfunction including opsoclonus (and myoclonus) which pt appears to have along with other cognitive and psychiatric symptoms. Will order MRI- r/o encephalitis related to chemo or any limbic/cerebellar pathology. Sent message to oncologist. Pt does psychiatric condition appears to significantly improved with dexamethaxone. Also if classic paraneoplastic, which is the one mostly related to cancer tumors,? serum anti bodies testing may suffice (without CSF testing).? 11/19 continue current medications- pending mri, paraneoplastic panel. 11/20- continue current medications, pending discussion with oncology re: paran eoplastic syndome, pending MRI 11/21 will d/c wellbutrin as it can worsen psychosis. continue all other meds. MRI shows microvascular changes and atrophy- moca at this time wouldn't be accurate given prominent psych symptoms. 11/22 continue current medications. 11/23 continue tx plan. 11/24 continue tx plan 11/25/21-Continue current plan 11/26/21-Chemotherapy 11/27/21. Continue current plan 11/27/21- Continue current regime. Pt reports feeling tired after her treatment today. Labs pending. Pt discussing wanting to go home. 11/28- continue current tx. 11/29/21- Continue current plan of care. 11/30 continue current treatment plan 12/01 continue current treatment plan; patient brighter and more engaging then before 12/02 continue current medications. 12/04/21 Continue current regime. Tolerating Latuda increase on 12/03. 12/05/21 Increase Trazodone to 75 mg HS per pt request. 12/06/21 Continue current regime. 12/07/2021. Continue current regimen and plans 12/08/2021: Continue current plans and regimen 12/09/2021: Trial clonidine 0.1 mg QD PRN for tremors, anxiety 12/10/2021: No med changes made today 12/14/2021: No med changes today 12/15/2021: Increase trazodone to 100 mg QHS I spent minutes with the patient and/or on the patient floor today, greater than?50% of which was spent counseling/coordinating care. Patient educated on: medication risk/benefits Reason for contiued inpatient stay Substantial Risk for: med/psych decompensation
[2021-12-15 21:45] VITALS: BP 112/79; PULSE 116; TEMP 36.3; O2SAT 99
[2021-12-15] MEDS: Docusate Sodium 100 MG CAPSULE 200 MG PO (21:58)
[2021-12-15] MEDS: traZODone HCL 100 MG TABLET PO (21:59)
[2021-12-15] MEDS: Atorvastatin Calcium 10 MG TABLET 5 MG PO (22:00)
[2021-12-16] MEDS: Omeprazole 20 MG CAPSULE.DR PO (06:41)
[2021-12-16 06:50] LABS: Glucose, Whole Blood 135 mg/dL (60-115)
[2021-12-16] MEDS: Ferrous Sulfate 324 MG TABLET.DR PO (09:08)
[2021-12-16] MEDS: LORazepam 1 MG TABLET PO ×2 (09:08→21:43)
[2021-12-16] MEDS: metFORMIN HCl 1,000 MG TABLET 1000 MG PO ×2 (09:08→21:43)
[2021-12-16] MEDS: Losartan Potassium 25 MG TABLET PO (09:09)
[2021-12-16] MEDS: Multivitamin TABLET 1 TAB PO (09:09)
[2021-12-16] MEDS: cloZAPine 100 MG TABLET 150 MG PO ×2 (09:10→21:44)
[2021-12-16] MEDS: cloNIDine HCL 0.1 MG TABLET PO ×2 (09:10→21:44)
[2021-12-16] MEDS: Ascorbic Acid 500 MG TABLET 1000 MG PO (09:10)
[2021-12-16] MEDS: Cholecalciferol (Vitamin D3) 10 MCG TABLET PO (09:10)
[2021-12-16] MEDS: Cyanocobalamin (Vitamin B-12) 1,000 MCG TABLET 1000 MCG PO (09:11)
[2021-12-16] MEDS: Enoxaparin Sodium 40 MG/0.4 ML SYRINGE SUBCUT (11:00)
--- NOTE | 2021-12-16 16:59 | P.PNPSI_ITS ---
Subjective Subjective Date of Service: 12/16/21 Reason For Visit: Depression paranoia Subjective Notes: Section 8 Healthcare Proxy: No Guardianship: No Medical Problems Affecting Mental Status: No (Chemotherapy) Interim History: Pt discussing discharge. She hopes for , 12/20. Reports increase in Trazodone to 100 mg is helpful Awaits approval to attend [facility]. Looking for therapy and psychopharm referrals. Discussed feeling safe to return home and believes the structure is workable for her. As well, partner will be working from home which will help she reports. Today, pt is organized, articulate, taking notes. Speech if fluent, soft, without paucity-genuine improvement. Medication Compliance: Yes Side effects from medications: No Attending Groups: Yes Review of Systems Acute medical concerns: No Medical Review of Systems: unchanged Review of Systems Reports memory loss Psychiatric: Reports difficulty concentrating and Reports memory loss Mental Status Exam Mental Status Exam Patient Appearance: Appropriate Patient Orientation: Person, Place, Time and Situation Level of Consciousness: Alert Patient Behavior: Talkative and Good Eye Contact Mood Description: Anxious Affect Description: Flat Patient Cognition Impaired: No Ability to Follow Directions: Good Speech Pattern: Clear, Spontaneous Speech and Soft-Spoken Memory Description: Episodic Impaired Hallucinations: None Delusions: Not Present Thought Process: Goal Oriented Thought Content: positive for Goal Oriented Judgement: Good Diagnostics Vital Signs (24Hr): Vital Signs - 24 hr 12/15/21 21:45 Temperature 97.3 F Pulse Rate 116 H Blood Pressure 112/79 Pulse Oximetry 99 BMI result Body Mass Index 30.8 Labs Results: 12/17/21 08:09 12/17/21 08:09 Labs: Laboratory Results - last 48 hr 12/15/21 12/16/21 06:13 06:38 POC Glucose 111 135 H Imaging Radiology Impressions: ITS Impressions Brain MRI 11/20/21 13:00 IMPRESSION: 1. No acute intracranial abnormalities. 2. Mild underlying microangiopathy and generalized cerebral volume loss. Medications Medications Current Medications Acetaminophen (Acetaminophen 325 Mg Tablet) 650 mg PO Q6H PRN PRN Reason: Headache/Pain Mild Scale (1-3) Last Admin: 11/22/21 08:44 Dose: 650 mg Documented by: Al Hydroxide/Mg Hydroxide (Magnesium Hydrox/Alum Hydrox 30 Ml Oral.Susp) 30 ml PO Q6H PRN PRN Reason: Heartburn/Nausea Last Admin: 10/02/21 14:41 Dose: 30 ml Documented by: Ascorbic Acid (Ascorbic Acid 500 Mg Tablet) 1,000 mg PO DAILY [facility] Last Admin: 12/16/21 09:10 Dose: 1,000 mg Documented by: Atorvastatin Calcium (Atorvastatin Calcium 10 Mg Tablet) 5 mg PO BEDTIME [facility] Last Admin: 12/15/21 22:00 Dose: 5 mg Documented by: Clonidine HCl (Clonidine Hcl 0.1 Mg Tablet) 0.1 mg PO BID [facility]; Protocol Last Admin: 12/16/21 09:10 Dose: 0.1 mg Documented by: Clonidine HCl (Clonidine Hcl 0.1 Mg Tablet) 0.1 mg PO DAILY PRN; Protocol PRN Reason: hyperarousal, anxiety Clozapine (Clozapine 100 Mg Tablet) 150 mg PO BID [facility] Last Admin: 12/16/21 09:10 Dose: 150 mg Documented by: Cyanocobalamin (Cyanocobalamin (Vitamin B-12) 1,000 Mcg Tablet) 1,000 mcg PO DAILY [facility] Last Admin: 12/16/21 09:11 Dose: 1,000 mcg Documented by: Docusate Sodium (Docusate Sodium 100 Mg Capsule) 200 mg PO BEDTIME [facility] Last Admin: 12/15/21 21:58 Dose: 200 mg Documented by: Enoxaparin Sodium (Enoxaparin Sodium 40 Mg/0.4 Ml Syringe) 40 mg SUBCUT Q24H [facility] Last Admin: 12/16/21 11:00 Dose: 40 mg Documented by: Ferrous Sulfate (Ferrous Sulfate 324 Mg Tablet.) 324 mg PO DAILY [facility] Last Admin: 12/16/21 09:08 Dose: 324 mg Documented by: Hydroxyzine HCl (Hydroxyzine Hcl 25 Mg Tablet) 25 mg PO BEDTIME PRN PRN Reason: Anxiety Last Admin: 12/04/21 22:55 Dose: 25 mg Documented by: Lorazepam (Lorazepam 1 Mg Tablet) 1 mg PO BID [facility] Last Admin: 12/16/21 09:08 Dose: 1 mg Documented by: Losartan Potassium (Losartan Potassium 25 Mg Tablet) 25 mg PO DAILY [facility]; Protocol Last Admin: 12/16/21 09:09 Dose: 25 mg Documented by: Lurasidone HCl (Lurasidone Hcl 80 Mg Tablet) 80 mg PO 1800 [facility] Last Admin: 12/15/21 18:21 Dose: 80 mg Documented by: Magnesium Hydroxide (Milk Of Magnesia 30 Ml Oral.Susp) 30 ml PO DAILY PRN PRN Reason: Constipation Metformin HCl (Metformin Hcl 1,000 Mg Tablet) 1,000 mg PO BID [facility] Last Admin: 12/16/21 09:08 Dose: 1,000 mg Documented by: Multivitamins/Vitamin C (Multivitamin Tablet) 1 tab PO DAILY [facility] Last Admin: 12/16/21 09:09 Dose: 1 tab Documented by: Non-Formulary Medication (Cinnamon) 1,000 mg PO DAILY [facility] Last Admin: 12/16/21 09:07 Dose: 1,000 mg Documented by: Patient Own Medication ( Empagliflozin 10 Mg) 1 each PO DAILY [facility] Last Admin: 12/16/21 09:07 Dose: 1 each Documented by: Patient Own Medication (Dwayne Red Softgels) 1 each PO DAILY [facility] Last Admin: 12/16/21 09:07 Dose: 1 each Documented by: Omeprazole (Omeprazole 20 Mg Capsule.Dr) 20 mg PO DAILY@0630 [facility] Last Admin: 12/16/21 06:41 Dose: 20 mg Documented by: Ondansetron HCl (Ondansetron Odt 8 Mg Tab.Rapdis) 8 mg TRANSLINGU Q8H PRN PRN Reason: nausea Polyethylene Glycol (Polyethylene Glycol 3350 17 Gm Powd.Pack) 17 gm PO DAILY PRN PRN Reason: Constipation Last Admin: 11/06/21 12:24 Dose: 17 gm Documented by: Prazosin HCl (Prazosin Hcl 1 Mg Capsule) 1 mg PO BEDTIME PRN; Protocol PRN Reason: nightmares Last Admin: 12/13/21 20:58 Dose: 1 mg Documented by: Trazodone HCl (Trazodone Hcl 100 Mg Tablet) 100 mg PO BEDTIME PRN PRN Reason: Insomnia Last Admin: 12/15/21 21:59 Dose: 100 mg Documented by: Vitamin D (Cholecalciferol (Vitamin D3) 10 Mcg Tablet) 10 mcg PO DAILY [facility] Last Admin: 12/16/21 09:10 Dose: 10 mcg Documented by: Allergies Allergies Allergy/AdvReac Type Severity Reaction Status Date / Time lisinopril [LISINOPRIL] Allergy Unknown SWOLLEN Verified 09/17/21 08:42 LIPS, angioedema, swelling Assessment & Plan Assessment & Plan (1) Schizoaffective disorder: Status: Acute Code(s): F25.9 - Schizoaffective disorder, unspecified (2) Facial weakness: Status: Acute Code(s): R29.810 - Facial weakness (3) Encephalopathy: Status: Acute Code(s): G93.40 - Encephalopathy, unspecified Plan 50 yo female, hx of schizoaffective disorder, depressed with R breast cancer, having just completed first cycle of chemotherapy. Pt's partner and sister report to crisis team that pt has had a significant mental status change with psychotic symptoms, paranoia, perceptual alterations, poor sleep and significant thought blocking. Pt denies SI, HI. Today she is a very poor historian-almost pre-catatonic at times, considering signing a three day notice of intent. Team report by history she may not be comfortable in this facility. Assessment plan for 09/21/2021 Continue current medical treatment elevated white blood count noted over the past month question related to cancer treatment.? No evidence of infection Patient depressed withdrawn preoccupied patient with recent treatment for ductal carcinoma stress of this might certainly lead to depressive almost catatonic episode 09/22/21 Pt with thought blocking improved from yeterday have restarted wellbutin hosp did not have sr cont clozapine evaluate baseline denies self harm oob more 09/23/21 Continue current plan of care. Collateral contacts with OP team, oncology. 09/24/21 Increase Abilify to 30 mg daily Pt currently refusing Lorazepam TDN expires 09/25/21-will file for civil commitment if pt persists in wanting discharge 09/25/21 Civil commitment filing completed Continue current regime. 09/26/21 Continue current regime 09/27/32 Decrease Abilify to 20 mg daily Risperdal 1.5 mg HS 09/28/21 Continue plan as above 09/29/21 No changes 09/30/21 Court 10/01/21 Chemotherapy 10/01/21 Increase Risperdal to 2.5 mg HS Decrease Abilify to 10 mg daily 10/02/21 Tolerating change back to Abilify from Risperdal Appetite is improved. Calmer, more visable, however continues with paranoia Jardiance ordered from [facility] 10/03/21 Increase Abilify to 30 mg daily Will pursue validation of pt's HCP for continued chemotherapy Tentative chemotherapy 10/09. 10/04/21 Continue current regime 10/05 no changes to current regimen 10/06 no changes to current regimen 10/07/21 No positive effect from increase in Abilify Increase Clozaril to 100 mg bid, an increase of 50 mg daily, divided. Chemotherapy 10/09/21, Labs 10/08/21. 10/08/21 Tolerating Clozaril increase thus far Dexamethasone 4 mg hs and 4 mg a.m. pre chemo per Dr. Mora Support, encourage 10/09/21 Continue current plan of care 10/10/21 Continue current plan of care 10/11/21 Continue current plan. Will re-eval for Clozaril increase next week. 10/12/2021: Continue current regimen and plans.? No changes were made today 10/13/2021: Continue current plans and regimen. 10/14/21: Increase Clozaril to 125 mg bid ? EKG, CBCD, CMP 10/15 prior to chemotherapy 10/15/21: Continue current plan of care 10/16/21: Continue current plan. Tolerating Clozaril increase 10/17/21: Continue current regime. 10/18/21: Increase Clozaril to 150 mg bid ? Decrease Abilify to 20 mg daily ? ECT Consult 10/19/21: continue meds unchanged 10/20/21: pt continue to present as paranoid, withdrawn 10/21/21: Continue current regime. Labs/EKG 10/22. Some improvement today. 10/22/21: Labs/EKG WNL ? Meeting 10/24 with health care proxy's to discuss clozaril discontinuation ? ECT Consult 10/24/21: Continue current plan. 10/25/21: Continue current plan. 10/26: ECT may be indicated. Change Ativan to standing dose. 10/27 Increase Ativan to 1 mg TID and watch for sedation 10/28/21: CBCD, CMP, EKG 10/29/21 in preparation for chemotherapy ? Await Clozapine level results. 10/29/21: ECT consult 10/30 ? Chemotherapy 10/30 ? Await Clozapine level results. ? Tentative plan to taper Abilify, titrate Latuda. ? Family/HCP in agreement. Pt agrees as well. 10/30/21: Decrease Abilify to 10 mg daily to prepare to begin Latuda 10/31/21: Continue current plan. 11/01/21: Discontinue Abilify ? Latuda 20 mg 1800 11/02/21:? Continue current treatment plan 11/03/21:? Continue current treatment plan 11/04/21: Tolerating Latuda. Pt asks not to titrate yet. Some improvement noted. 11/05/21: Chemotherapy 11/06. Ready to titrate Latuda-family will discuss with pt. Thus far, a positive result, without adverse effect. ? EKG reading pending ? Sister will not be taking pt to chemotherapy on 11/06 as her son has tested positive for COVID this afternoon. Partner Kailey will accompany pt. along with team. 11/06/21: Increase Latuda to 40 mg daily after evening meal. ? Increase Colace to 200 mg hs ? Miralax prn ? Per nursing report, pt will no longer need steroid dosing on Tuesdays before chemotherapy, but will receive dosing on Wednesdays in the chemotherapy dept. 11/07/21: Continue current plan. 11/08/21: Change Lorazepam prn to 1 mg bid 11/09/21: Tolerating Lorazepam. Continue plan of care. 11/10/21: Considering Latuda increase. 11/11/21: Increase Latuda to 60 mg daily. Labs pre chemotherapy. 11/12/21: Continue current plan. Care discussed with HCP Kailey- review of Ativan dosing, therapeutic Latuda dosing,pt's not understanding that her thought blocking, paranoia, belief that she will go to penitentiary are target sx for medication increase. 11/14/21: Continue current plan. Discharge planning with consistent improvement. 11/15/21: continue current medications per primary treatment team. 11/16/2021 Patient seen in psychiatric follow-up patient depressed withdrawn hopeless helpless despondent again discussed option of ECT 11/17/2021 Patient's case reviewed with nursing staff.? Patient seen.? Patient somewhat with cardoso affect today less withdrawn able to engage in discussion regarding Latuda and possibility of ECT treatment.? Continue clozapine Latuda 11/18- discussed with significant other possibility of: underlying paraneoplastic syndrome related to breast carcinona- mainly 4 antibodies have been related to this type of cancer (EYEGLASS CUTTER-2, Anti-yo (EYEGLASS CUTTER-1); Anti-RI (corona-2); and antiamphiphysin) mostly causing cerebellar disfunction including opsoclonus (and myoclonus) which pt appears to have along with other cognitive and psychiatric symptoms. Will order MRI- r/o encephalitis related to chemo or any limbic/cerebellar pathology. Sent message to oncologist. Pt does psychiatric condition appears to significantly improved with dexamethaxone. Also if classic paraneoplastic, which is the one mostly related to cancer tumors,? serum antibodies testing may suffice (without CSF testing).? 11/19 continue current medications- pending mri, paraneoplastic panel. 11/20- continue current medications, pending discussion with oncology re: paraneoplastic syndome, pending MRI 11/21 will d/c wellbutrin as it can worsen psychosis. continue all other meds. MRI shows microvascular changes and atrophy- moca at this time wouldn't be accurate given prominent psych symptoms. 11/22 continue current medications. 11/23 continue tx plan. 11/24 continue tx plan 11/25/21-Continue current plan 11/26/21-Chemotherapy 11/27/21. Continue current plan 11/27/21- Continue current regime. Pt reports feeling tired after her treatment today. Labs pending. Pt discussing wanting to go home. 11/28- continue current tx. 11/29/21- Continue current plan of care. 11/30 continue current treatment plan 12/01 continue current treatment plan; patient brighter and more engaging then before 12/02 continue current medications. 12/04/21 Continue current regime. Tolerating Latuda increase on 12/03. 12/05/21 Increase Trazodone to 75 mg HS per pt request. 12/06/21 Continue current regime. 12/07/2021. Continue current regimen and plans 12/08/2021: Continue current plans and regimen 12/09/2021: Trial clonidine 0.1 mg QD PRN for tremors, anxiety 12/10/2021: No med changes made today 12/16/21: Continue current regime. I spent minutes with the patient and/or on the patient floor today, greater than?50% of which was spent counseling/coordinating care. Patient educated on: therapeutic strategies Informed Consent: understands and further education needed Reason for contiued inpatient stay Substantial Risk for: med/psych decompensation
[2021-12-16] MEDS: Lurasidone HCl 80 MG TABLET PO (18:13)
[2021-12-16 20:10] VITALS: BP 112/80; PULSE 120; RESP 20; TEMP 37; O2SAT 97
[2021-12-16] MEDS: Atorvastatin Calcium 10 MG TABLET 5 MG PO (21:41)
[2021-12-16] MEDS: Docusate Sodium 100 MG CAPSULE 200 MG PO (21:41)
[2021-12-16] MEDS: traZODone HCL 100 MG TABLET PO (21:46)
[2021-12-17] MEDS: Omeprazole 20 MG CAPSULE.DR PO (06:43)
[2021-12-17 07:00] LABS: Glucose, Whole Blood 115 mg/dL (60-115)
[2021-12-17 08:00] VITALS: BP 109/76; PULSE 131; RESP 14; TEMP 36.1; O2SAT 98
[2021-12-17] MEDS: Ascorbic Acid 500 MG TABLET 1000 MG PO (08:34)
[2021-12-17] MEDS: LORazepam 1 MG TABLET PO ×2 (08:34→21:54)
[2021-12-17] MEDS: Ferrous Sulfate 324 MG TABLET.DR PO (08:34)
[2021-12-17] MEDS: cloZAPine 100 MG TABLET 150 MG PO ×2 (08:34→21:15)
[2021-12-17] MEDS: metFORMIN HCl 1,000 MG TABLET 1000 MG PO ×2 (08:34→21:14)
[2021-12-17] MEDS: Cyanocobalamin (Vitamin B-12) 1,000 MCG TABLET 1000 MCG PO (08:34)
[2021-12-17] MEDS: Cholecalciferol (Vitamin D3) 10 MCG TABLET PO (08:34)
[2021-12-17] MEDS: Multivitamin TABLET 1 TAB PO (08:34)
[2021-12-17] MEDS: cloNIDine HCL 0.1 MG TABLET PO ×2 (08:34→21:15)
[2021-12-17] MEDS: Losartan Potassium 25 MG TABLET PO (08:34)
[2021-12-17 08:58] LABS: MANUAL DIFF FLAG NO
[2021-12-17 09:06] LABS: Basophils Percent Auto 0.5 % (0-2); Eosinophils Percent Auto 0.1 % (0-4); Hematocrit 37.1 % (37.0-47.0); Hemoglobin 12.3 g/dl (12.0-16.0); Imm Gran Abs Auto 0.07 X10*3/uL (0.00-0.03); Imm Gran Pct Auto 0.8 % (0.0-0.4); Lymphocytes Absolute Auto 2.2 X10*3/uL (1.2-4.9); Lymphocytes Percent Auto 26.4 % (20-40); Mean Corpuscular HGB Conc 33.2 g/dl (31.0-35.0); Mean Corpuscular Hemoglobin 32.4 pg (27.0-33.0); Mean Corpuscular Volume 97.6 fL (80.0-98.0); Mean Platelet Volume 10.9 fL (9.4-12.3); Monocytes Absolute Auto 0.5 X10*3/uL (0.1-1.2); Monocytes Percent Auto 6.2 % (2-11); Neutrophils Absolute Auto 5.6 x10*3/uL (2.0-8.3); Platelet Count 386 X10*3/uL (160-400); Red Cell Distribution Width 16.4 % (11.0-16.0); White Blood Count 8.5 X10*3/uL (4.8-10.8)
[2021-12-17 09:28] LABS: Alanine Aminotransferase 28 U/L (0-31); Albumin Level 4.2 g/dL (3.5-5.0); Alkaline Phosphatase 104 U/L (39-117); Anion Gap 19 (12-20); Aspartate Amino Transferase 17 U/L (5-31); Bilirubin Total 0.6 mg/dL (0.0-1.0); Blood Urea Nitrogen 15 mg/dL (9-16); Calcium 9.8 mg/dL (8.4-10.2); Carbon Dioxide 20 mmol/L (22-29); Chloride 106 mmol/L (96-108); Creatinine Clr Calc Pharmacy 88.2; Estimated Glomerular Filt Rate > 60; Glucose Random 182 mg/dL (60-115); Potassium 4.3 mmol/L (3.3-5.1); Sodium 141 mmol/L (135-145); Total Protein 6.8 g/dL (6.5-8.0)
--- NOTE | 2021-12-17 10:00 | ECG_ITS ---
Test Reason : CK RHYTHM Blood Pressure : / mmHG Vent. Rate : 109 BPM Atrial Rate : 109 BPM P-R Int : 144 ms QRS Dur : 072 ms QT Int : 298 ms P-R-T Axes : 051 060 009 degrees QTc Int : 401 ms Sinus tachycardia Nonspecific T wave abnormality Abnormal ECG When compared with ECG of 10-DEC-2021 12:01, No significant change was found Referred By: Marci Jones Electronically Signed By:Joel Horne
[2021-12-17] MEDS: Enoxaparin Sodium 40 MG/0.4 ML SYRINGE SUBCUT (11:35)
[2021-12-17] MEDS: Lurasidone HCl 80 MG TABLET PO (18:35)
--- NOTE | 2021-12-17 19:04 | HO.PSYCHPN ---
Subjective Subjective Date of Service: 12/17/21 Reason For Visit: Depression paranoia Subjective Notes: Section 8 Healthcare Proxy: No Guardianship: No Medical Problems Affecting Mental Status: No (chemotherapy) Interim History: Team reports pt able to express anger to another peer when this peer took her belongings-a milestone for pt-clear passionate expression of feelings, setting appropriate limits and engaging in dialogue that was supportive of pt maintaining her rights and boundaries, appropriately. Family meeting scheduled for 12/19 1pm. Tentative discharge 12/20. Medication Compliance: Yes Side effects from medications: No Attending Groups: Yes Review of Systems Acute medical concerns: No Medical Review of Systems: unchanged Review of Systems Reports memory loss Psychiatric: Reports difficulty concentrating and Reports memory loss Mental Status Exam Mental Status Exam Patient Appearance: Appropriate Patient Orientation: Person, Place, Time and Situation Level of Consciousness: Alert Patient Behavior: Talkative and Good Eye Contact Mood Description: Anxious Affect Description: Flat Patient Cognition Impaired: No Ability to Follow Directions: Good Speech Pattern: Clear, Spontaneous Speech and Soft-Spoken Memory Description: Episodic Impaired Hallucinations: None Delusions: Not Present Thought Process: Goal Oriented Thought Content: positive for Goal Oriented Judgement: Good Diagnostics Vital Signs (24Hr): Vital Signs - 24 hr 12/16/21 20:10 12/17/21 08:00 Temperature 98.6 F 96.9 F Pulse Rate 120 H 131 H Respiratory Rate 20 14 Blood Pressure 112/80 109/76 Pulse Oximetry 97 98 BMI result Body Mass Index 30.8 Labs Results: 12/17/21 08:09 12/17/21 08:09 Labs: Laboratory Results - last 48 hr 12/16/21 12/17/21 12/17/21 06:38 06:46 08:09 WBC RBC Hgb Hct MCV MCH MCHC RDW Plt Count MPV Immature Gran % (Auto) Neut % (Auto) Lymph % (Auto) [place] % (Auto) Eos % (Auto) Baso % (Auto) Lymph # (Auto) [place] # (Auto) Eos # (Auto) Baso # (Auto) Abs Immat Gran (auto) Absolute Neuts (auto) Absolute Nucleated RBC Nucleated RBC % (auto) Sodium 141 Potassium 4.3 Chloride 106 Carbon Dioxide 20 L Anion Gap 19 BUN 15 Creatinine 0.73 Estim Creat Clear Calc 88.2 Estimated GFR > 60 POC Glucose 135 H 115 Random Glucose 182 H Calcium 9.8 Total Bilirubin 0.6 AST 17 ALT 28 Alkaline Phosphatase 104 Total Protein 6.8 Albumin 4.2 12/17/21 12/17/21 08:09 08:09 WBC 8.5 RBC 3.80 L Hgb 12.3 Hct 37.1 MCV 97.6 MCH 32.4 MCHC 33.2 RDW 16.4 H Plt Count 386 MPV 10.9 Immature Gran % (Auto) 0.8 H Neut % (Auto) 66.0 Lymph % (Auto) 26.4 [place] % (Auto) 6.2 Eos % (Auto) 0.1 Baso % (Auto) 0.5 Lymph # (Auto) 2.2 [place] # (Auto) 0.5 Eos # (Auto) 0.0 Baso # (Auto) 0.0 Abs Immat Gran (auto) 0.07 H Absolute Neuts (auto) Cancelled 5.6 Absolute Nucleated RBC 0.000 Nucleated RBC % (auto) 0.0 Sodium Potassium Chloride Carbon Dioxide Anion Gap BUN Creatinine Estim Creat Clear Calc Estimated GFR POC Glucose Random Glucose Calcium Total Bilirubin AST ALT Alkaline Phosphatase Total Protein Albumin Imaging Radiology Impressions: ITS Impressions Brain MRI 11/20/21 13:00 IMPRESSION: 1. No acute intracranial abnormalities. 2. Mild underlying microangiopathy and generalized cerebral volume loss. Medications Medications Current Medications Acetaminophen (Acetaminophen 325 Mg Tablet) 650 mg PO Q6H PRN PRN Reason: Headache/Pain Mild Scale (1-3) Last Admin: 11/22/21 08:44 Dose: 650 mg Documented by: Al Hydroxide/Mg Hydroxide (Magnesium Hydrox/Alum Hydrox 30 Ml Oral.Susp) 30 ml PO Q6H PRN PRN Reason: Heartburn/Nausea Last Admin: 10/02/21 14:41 Dose: 30 ml Documented by: Ascorbic Acid (Ascorbic Acid 500 Mg Tablet) 1,000 mg PO DAILY MYRTLE Last Admin: 12/17/21 08:34 Dose: 1,000 mg Documented by: Atorvastatin Calcium (Atorvastatin Calcium 10 Mg Tablet) 5 mg PO BEDTIME MYRTLE Last Admin: 12/16/21 21:41 Dose: 5 mg Documented by: Clonidine HCl (Clonidine Hcl 0.1 Mg Tablet) 0.1 mg PO BID MYRTLE; Protocol Last Admin: 12/17/21 08:34 Dose: 0.1 mg Documented by: Clonidine HCl (Clonidine Hcl 0.1 Mg Tablet) 0.1 mg PO DAILY PRN; Protocol PRN Reason: hyperarousal, anxiety Clozapine (Clozapine 100 Mg Tablet) 150 mg PO BID [facility] Last Admin: 12/17/21 08:34 Dose: 150 mg Documented by: Cyanocobalamin (Cyanocobalamin (Vitamin B-12) 1,000 Mcg Tablet) 1,000 mcg PO DAILY [facility] Last Admin: 12/17/21 08:34 Dose: 1,000 mcg Documented by: Docusate Sodium (Docusate Sodium 100 Mg Capsule) 200 mg PO BEDTIME [facility] Last Admin: 12/16/21 21:41 Dose: 200 mg Documented by: Enoxaparin Sodium (Enoxaparin Sodium 40 Mg/0.4 Ml Syringe) 40 mg SUBCUT Q24H [facility] Last Admin: 12/17/21 11:35 Dose: 40 mg Documented by: Ferrous Sulfate (Ferrous Sulfate 324 Mg Tablet.) 324 mg PO DAILY [facility] Last Admin: 12/17/21 08:34 Dose: 324 mg Documented by: Hydroxyzine HCl (Hydroxyzine Hcl 25 Mg Tablet) 25 mg PO BEDTIME PRN PRN Reason: Anxiety Last Admin: 12/04/21 22:55 Dose: 25 mg Documented by: Lorazepam (Lorazepam 1 Mg Tablet) 1 mg PO BID [facility] Last Admin: 12/17/21 08:34 Dose: 1 mg Documented by: Losartan Potassium (Losartan Potassium 25 Mg Tablet) 25 mg PO DAILY [facility]; Protocol Last Admin: 12/17/21 08:34 Dose: 25 mg Documented by: Lurasidone HCl (Lurasidone Hcl 80 Mg Tablet) 80 mg PO 1800 [facility] Last Admin: 12/17/21 18:35 Dose: 80 mg Documented by: Magnesium Hydroxide (Milk Of Magnesia 30 Ml Oral.Susp) 30 ml PO DAILY PRN PRN Reason: Constipation Metformin HCl (Metformin Hcl 1,000 Mg Tablet) 1,000 mg PO BID [facility] Last Admin: 12/17/21 08:34 Dose: 1,000 mg Documented by: Multivitamins/Vitamin C (Multivitamin Tablet) 1 tab PO DAILY [facility] Last Admin: 12/17/21 08:34 Dose: 1 tab Documented by: Non-Formulary Medication (Cinnamon) 1,000 mg PO DAILY [facility] Last Admin: 12/17/21 08:33 Dose: 1,000 mg Documented by: Patient Own Medication ( Empagliflozin 10 Mg) 1 each PO DAILY [facility] Last Admin: 12/17/21 08:33 Dose: 1 each Documented by: Patient Own Medication (Dwayne Red Softgels) 1 each PO DAILY [facility] Last Admin: 12/17/21 08:33 Dose: 1 each Documented by: Omeprazole (Omeprazole 20 Mg Capsule.) 20 mg PO DAILY@0630 [facility] Last Admin: 12/17/21 06:43 Dose: 20 mg Documented by: Ondansetron HCl (Ondansetron Odt 8 Mg Tab.Rapdis) 8 mg TRANSLINGU Q8H PRN PRN Reason: nausea Polyethylene Glycol (Polyethylene Glycol 3350 17 Gm Powd.Pack) 17 gm PO DAILY PRN PRN Reason: Constipation Last Admin: 11/06/21 12:24 Dose: 17 gm Documented by: Prazosin HCl (Prazosin Hcl 1 Mg Capsule) 1 mg PO BEDTIME PRN; Protocol PRN Reason: nightmares Last Admin: 12/13/21 20:58 Dose: 1 mg Documented by: Trazodone HCl (Trazodone Hcl 100 Mg Tablet) 100 mg PO BEDTIME PRN PRN Reason: Insomnia Last Admin: 12/16/21 21:46 Dose: 100 mg Documented by: Vitamin D (Cholecalciferol (Vitamin D3) 10 Mcg Tablet) 10 mcg PO DAILY [facility] Last Admin: 12/17/21 08:34 Dose: 10 mcg Documented by: Allergies Allergies Allergy/AdvReac Type Severity Reaction Status Date / Time lisinopril [LISINOPRIL] Allergy Unknown SWOLLEN Verified 09/17/21 08:42 LIPS, angioedema, swelling Assessment & Plan Assessment & Plan (1) Schizoaffective disorder: Status: Acute Code(s): F25.9 - Schizoaffective disorder, unspecified (2) Facial weakness: Status: Acute Code(s): R29.810 - Facial weakness (3) Encephalopathy: Status: Acute Code(s): G93.40 - Encephalopathy, unspecified Plan 50 yo female, hx of schizoaffective disorder, depressed with R breast cancer, having just completed first cycle of chemotherapy. Pt's partner and sister report to crisis team that pt has had a significant mental status change with psychotic symptoms, paranoia, perceptual alterations, poor sleep and significant thought blocking. Pt denies SI, HI. Today she is a very poor historian-almost pre-catatonic at times, considering signing a three day notice of intent. Team report by history she may not be comfortable in this facility. Assessment plan for 09/21/2021 Continue current medical treatment elevated white blood count noted over the past month question related to cancer treatment.? No evidence of infection Patient depressed withdrawn preoccupied patient with recent treatment for ductal carcinoma stress of this might certainly lead to depressive almost catatonic episode 09/22/21 Pt with thought blocking improved from yeterday have restarted wellbutin hosp did not have sr cont clozapine evaluate baseline denies self harm oob more 09/23/21 Continue current plan of care. Collateral contacts with OP team, oncology. 09/24/21 Increase Abilify to 30 mg daily Pt currently refusing Lorazepam TDN expires 09/25/21-will file for civil commitment if pt persists in wanting discharge 09/25/21 Civil commitment filing completed Continue current regime. 09/26/21 Continue current regime 09/27/32 Decrease Abilify to 20 mg daily Risperdal 1.5 mg HS 09/28/21 Continue plan as above 09/29/21 No changes 09/30/21 Court 10/01/21 Chemotherapy 10/01/21 Increase Risperdal to 2.5 mg HS Decrease Abilify to 10 mg daily 10/02/21 Tolerating change back to Abilify from Risperdal Appetite is improved. Calmer, more visable, however continues with paranoia Jardiance ordered [facility] 10/03/21 Increase Abilify to 30 mg daily Will pursue validation of pt's HCP for continued chemotherapy Tentative chemotherapy 10/09. 10/04/21 Continue current regime 10/05 no changes to current regimen 10/06 no changes to current regimen 10/07/21 No positive effect from increase in Abilify Increase Clozaril to 100 mg bid, an increase of 50 mg daily, divided. Chemotherapy 10/09/21, Labs 10/08/21. 10/08/21 Tolerating Clozaril increase thus far Dexamethasone 4 mg hs and 4 mg a.m. pre chemo per Dr. Mora Support, encourage 10/09/21 Continue current plan of care 10/10/21 Continue current plan of care 10/11/21 Continue current plan. Will re-eval for Clozaril increase next week. 10/12/2021: Continue current regimen and plans.? No changes were made today 10/13/2021: Continue current plans and regimen. 10/14/21: Increase Clozaril to 125 mg bid ? EKG, CBCD, CMP 10/15 prior to chemotherapy 10/15/21: Continue current plan of care 10/16/21: Continue current plan. Tolerating Clozaril increase 10/17/21: Continue current regime. 10/18/21: Increase Clozaril to 150 mg bid ? Decrease Abilify to 20 mg daily ? ECT Consult 10/19/21: continue meds unchanged 10/20/21: pt continue to present as paranoid, withdrawn 10/21/21: Continue current regime. Labs/EKG 10/22. Some improvement today. 10/22/21: Labs/EKG WNL ? Meeting 10/24 with health care proxy's to discuss clozaril discontinuation ? ECT Consult 10/24/21: Continue current plan. 10/25/21: Continue current plan. 10/26: ECT may be indicated. Change Ativan to standing dose. 10/27 Increase Ativan to 1 mg TID and watch for sedation 10/28/21: CBCD, CMP, EKG 10/29/21 in preparation for chemotherapy ? Await Clozapine level results. 10/29/21: ECT consult 10/30 ? Chemotherapy 10/30 ? Await Clozapine level results. ? Tentative plan to taper Abilify, titrate Latuda. ? Family/HCP in agreement. Pt agrees as well. 10/30/21: Decrease Abilify to 10 mg daily to prepare to begin Latuda 10/31/21: Continue current plan. 11/01/21: Discontinue Abilify ? Latuda 20 mg 1800 11/02/21:? Continue current treatment plan 11/03/21:? Continue current treatment plan 11/04/21: Tolerating Latuda. Pt asks not to titrate yet. Some improvement noted. 11/05/21: Chemotherapy 11/06. Ready to titrate Latuda-family will discuss with pt. Thus far, a positive result, without adverse effect. ? EKG reading pending ? Sister will not be taking pt to chemotherapy on 11/06 as her son has tested positive for COVID this afternoon. Partner Kailey will accompany pt. along with team. 11/06/21: Increase Latuda to 40 mg daily after evening meal. ? Increase Colace to 200 mg hs ? Miralax prn ? Per nursing report, pt will no longer need steroid dosing on Tuesdays before chemotherapy, but will receive dosing on Wednesdays in the chemotherapy dept. 11/07/21: Continue current plan. 11/08/21: Change Lorazepam prn to 1 mg bid 11/09/21: Tolerating Lorazepam. Continue plan of care. 11/10/21: Considering Latuda increase. 11/11/21: Increase Latuda to 60 mg daily. Labs pre chemotherapy. 11/12/21: Continue current plan. Care discussed with HCP Kailey- review of Ativan dosing, therapeutic Latuda dosing,pt's not understanding that her thought blocking, paranoia, belief that she will go to alf are target sx for medication increase. 11/14/21: Continue current plan. Discharge planning with consistent improvement. 11/15/21: continue current medications per primary treatment team. 11/16/2021 Patient seen in psychiatric follow-up patient depressed withdrawn hopeless helpless despondent again discussed option of ECT 11/17/2021 Patient's case reviewed with nursing staff.? Patient seen.? Patient somewhat with cardoso affect today less withdrawn able to engage in discussion regarding Latuda and possibility of ECT treatment.? Continue clozapine Latuda 11/18- discussed with significant other possibility of: underlying paraneoplastic syndrome related to breast carcinona- mainly 4 antibodies have been related to this type of cancer ([employer]-2, Anti-yo ([employer]-1); Anti-RI (corona-2); and antiamphiphysin) mostly causing cerebellar disfunction including opsoclonus (and myoclonus) which pt appears to have along with other cognitive and psychiatric symptoms. Will order MRI- r/o encephalitis related to chemo or any limbic/cerebellar pathology. Sent message to oncologist. Pt does psychiatric condition appears to significantly improved with dexamethaxone. Also if classic paraneoplastic, which is the one mostly related to cancer tumors,? serum antibodies testing may suffice (without CSF testing).? 11/19 continue current medications- pending mri, paraneoplastic panel. 11/20- continue current medications, pending discussion with oncology re: paraneoplastic syndome, pending MRI 11/21 will d/c wellbutrin as it can worsen psychosis. continue all other meds. MRI shows microvascular changes and atrophy- moca at this time wouldn't be accurate given prominent psych symptoms. 11/22 continue current medications. 11/23 continue tx plan. 11/24 continue tx plan 11/25/21-Continue current plan 11/26/21-Chemotherapy 11/27/21. Continue current plan 11/27/21- Continue current regime. Pt reports feeling tired after her treatment today. Labs pending. Pt discussing wanting to go home. 11/28- continue current tx. 11/29/21- Continue current plan of care. 11/30 continue current treatment plan 12/01 continue current treatment plan; patient brighter and more engaging then before 12/02 continue current medications. 12/04/21 Continue current regime. Tolerating Latuda increase on 12/03. 12/05/21 Increase Trazodone to 75 mg HS per pt request. 12/06/21 Continue current regime. 12/07/2021. Continue current regimen and plans 12/08/2021: Continue current plans and regimen 12/09/2021: Trial clonidine 0.1 mg QD PRN for tremors, anxiety 12/10/2021: No med changes made today 12/16/21: Continue current regime. 12/17/21: Discharge planning meeting 12/19. Tentative discharge 12/20. I spent minutes with the patient and/or on the patient floor today, greater than?50% of which was spent counseling/coordinating care. Patient educated on: therapeutic strategies Informed Consent: understands and further education needed Reason for contiued inpatient stay Substantial Risk for: med/psych decompensation
[2021-12-17 21:05] VITALS: BP 112/78; PULSE 117; TEMP 37; O2SAT 100
[2021-12-17] MEDS: traZODone HCL 100 MG TABLET PO (21:14)
[2021-12-17] MEDS: Atorvastatin Calcium 10 MG TABLET 5 MG PO (21:14)
[2021-12-17] MEDS: Docusate Sodium 100 MG CAPSULE 200 MG PO (21:15)
[2021-12-18] MEDS: Omeprazole 20 MG CAPSULE.DR PO (07:08)
[2021-12-18 07:13] LABS: Glucose, Whole Blood 176 mg/dL (60-115)
[2021-12-18] MEDS: Cyanocobalamin (Vitamin B-12) 1,000 MCG TABLET 1000 MCG PO (08:23)
[2021-12-18] MEDS: cloZAPine 100 MG TABLET 150 MG PO ×2 (08:23→21:21)
[2021-12-18] MEDS: Multivitamin TABLET 1 TAB PO (08:24)
[2021-12-18] MEDS: cloNIDine HCL 0.1 MG TABLET PO ×2 (08:24→21:26)
[2021-12-18] MEDS: Ferrous Sulfate 324 MG TABLET.DR PO (08:24)
[2021-12-18] MEDS: Cholecalciferol (Vitamin D3) 10 MCG TABLET PO (08:24)
[2021-12-18] MEDS: Losartan Potassium 25 MG TABLET PO (08:24)
[2021-12-18] MEDS: metFORMIN HCl 1,000 MG TABLET 1000 MG PO ×2 (08:24→21:23)
[2021-12-18] MEDS: LORazepam 1 MG TABLET PO ×2 (08:24→21:26)
[2021-12-18] MEDS: Ascorbic Acid 500 MG TABLET 1000 MG PO (08:24)
[2021-12-18 08:29] VITALS: BP 114/81; PULSE 111; RESP 18; TEMP 36.4; O2SAT 97
[2021-12-18] MEDS: Enoxaparin Sodium 40 MG/0.4 ML SYRINGE SUBCUT (11:23)
--- NOTE | 2021-12-18 16:48 | P.PNPSI_ITS ---
Subjective Subjective Date of Service: 12/18/21 Reason For Visit: Depression paranoia Subjective Notes: Section 8 Healthcare Proxy: No Guardianship: No Medical Problems Affecting Mental Status: Yes (chemotherapy) Interim History: Sabra is preparing for discharge and terminating with team and peers. She asks often do I have anything to do. ? Family meeting 12/19 1pm She is articulate, quiet spoken with no paucity. Without SI, HI, paranoia, psychosis Medication Compliance: Yes Side effects from medications: No Attending Groups: Yes Review of Systems Acute medical concerns: No Medical Review of Systems: unchanged Review of Systems Psychiatric: Reports no additional psychiatric complaints Mental Status Exam Mental Status Exam Patient Appearance: Appropriate Patient Orientation: Person, Place, Time and Situation Level of Consciousness: Alert Patient Behavior: Talkative and Good Eye Contact Mood Description: Anxious Affect Description: Flat Patient Cognition Impaired: No Ability to Follow Directions: Good Speech Pattern: Clear, Spontaneous Speech and Soft-Spoken Memory Description: Episodic Impaired Hallucinations: None Delusions: Not Present Thought Process: Goal Oriented Thought Content: positive for Goal Oriented Judgement: Good Diagnostics Vital Signs (24Hr): Vital Signs - 24 hr 12/17/21 21:05 12/18/21 08:29 Temperature 98.6 F 97.6 F Pulse Rate 117 H 111 H Respiratory Rate 18 Blood Pressure 112/78 114/81 Pulse Oximetry 100 97 BMI result Body Mass Index 30.8 Labs Results: 12/17/21 08:09 12/17/21 08:09 Labs: Laboratory Results - last 48 hr 12/17/21 12/17/21 12/17/21 06:46 08:09 08:09 WBC RBC Hgb Hct MCV MCH MCHC RDW Plt Count MPV Immature Gran % (Auto) Neut % (Auto) Lymph % (Auto) [place] % (Auto) Eos % (Auto) Baso % (Auto) Lymph # (Auto) [place] # (Auto) Eos # (Auto) Baso # (Auto) Abs Immat Gran (auto) Absolute Neuts (auto) Cancelled Absolute Nucleated RBC Nucleated RBC % (auto) Sodium 141 Potassium 4.3 Chloride 106 Carbon Dioxide 20 L Anion Gap 19 BUN 15 Creatinine 0.73 Estim Creat Clear Calc 88.2 Estimated GFR > 60 POC Glucose 115 Random Glucose 182 H Calcium 9.8 Total Bilirubin 0.6 AST 17 ALT 28 Alkaline Phosphatase 104 Total Protein 6.8 Albumin 4.2 12/17/21 12/18/21 08:09 07:02 WBC 8.5 RBC 3.80 L Hgb 12.3 Hct 37.1 MCV 97.6 MCH 32.4 MCHC 33.2 RDW 16.4 H Plt Count 386 MPV 10.9 Immature Gran % (Auto) 0.8 H Neut % (Auto) 66.0 Lymph % (Auto) 26.4 [place] % (Auto) 6.2 Eos % (Auto) 0.1 Baso % (Auto) 0.5 Lymph # (Auto) 2.2 [place] # (Auto) 0.5 Eos # (Auto) 0.0 Baso # (Auto) 0.0 Abs Immat Gran (auto) 0.07 H Absolute Neuts (auto) 5.6 Absolute Nucleated RBC 0.000 Nucleated RBC % (auto) 0.0 Sodium Potassium Chloride Carbon Dioxide Anion Gap BUN Creatinine Estim Creat Clear Calc Estimated GFR POC Glucose 176 H Random Glucose Calcium Total Bilirubin AST ALT Alkaline Phosphatase Total Protein Albumin Imaging Radiology Impressions: ITS Impressions Brain MRI 11/20/21 13:00 IMPRESSION: 1. No acute intracranial abnormalities. 2. Mild underlying microangiopathy and generalized cerebral volume loss. Medications Medications Current Medications Acetaminophen (Acetaminophen 325 Mg Tablet) 650 mg PO Q6H PRN PRN Reason: Headache/Pain Mild Scale (1-3) Last Admin: 11/22/21 08:44 Dose: 650 mg Documented by: Al Hydroxide/Mg Hydroxide (Magnesium Hydrox/Alum Hydrox 30 Ml Oral.Susp) 30 ml PO Q6H PRN PRN Reason: Heartburn/Nausea Last Admin: 10/02/21 14:41 Dose: 30 ml Documented by: Ascorbic Acid (Ascorbic Acid 500 Mg Tablet) 1,000 mg PO DAILY [facility] Last Admin: 12/18/21 08:24 Dose: 1,000 mg Documented by: Atorvastatin Calcium (Atorvastatin Calcium 10 Mg Tablet) 5 mg PO BEDTIME [facility] Last Admin: 12/17/21 21:14 Dose: 5 mg Documented by: Clonidine HCl (Clonidine Hcl 0.1 Mg Tablet) 0.1 mg PO BID [facility]; Protocol Last Admin: 12/18/21 08:24 Dose: 0.1 mg Documented by: Clonidine HCl (Clonidine Hcl 0.1 Mg Tablet) 0.1 mg PO DAILY PRN; Protocol PRN Reason: hyperarousal, anxiety Clozapine (Clozapine 100 Mg Tablet) 150 mg PO BID [facility] Last Admin: 12/18/21 08:23 Dose: 150 mg Documented by: Cyanocobalamin (Cyanocobalamin (Vitamin B-12) 1,000 Mcg Tablet) 1,000 mcg PO DA [facility] Last Admin: 12/18/21 08:23 Dose: 1,000 mcg Documented by: Docusate Sodium (Docusate Sodium 100 Mg Capsule) 200 mg PO BEDTIME [facility] Last Admin: 12/17/21 21:15 Dose: 200 mg Documented by: Enoxaparin Sodium (Enoxaparin Sodium 40 Mg/0.4 Ml Syringe) 40 mg SUBCUT Q24H [facility] Last Admin: 12/18/21 11:23 Dose: 40 mg Documented by: Ferrous Sulfate (Ferrous Sulfate 324 Mg Tablet.) 324 mg PO DAILY [facility] Last Admin: 12/18/21 08:24 Dose: 324 mg Documented by: Hydroxyzine HCl (Hydroxyzine Hcl 25 Mg Tablet) 25 mg PO BEDTIME PRN PRN Reason: Anxiety Last Admin: 12/04/21 22:55 Dose: 25 mg Documented by: Lorazepam (Lorazepam 1 Mg Tablet) 1 mg PO BID [facility] Last Admin: 12/18/21 08:24 Dose: 1 mg Documented by: Losartan Potassium (Losartan Potassium 25 Mg Tablet) 25 mg PO DAILY [facility]; Protocol Last Admin: 12/18/21 08:24 Dose: 25 mg Documented by: Lurasidone HCl (Lurasidone Hcl 80 Mg Tablet) 80 mg PO 1800 [facility] Last Admin: 12/17/21 18:35 Dose: 80 mg Documented by: Magnesium Hydroxide (Milk Of Magnesia 30 Ml Oral.Susp) 30 ml PO DAILY PRN PRN Reason: Constipation Metformin HCl (Metformin Hcl 1,000 Mg Tablet) 1,000 mg PO BID [facility] Last Admin: 12/18/21 08:24 Dose: 1,000 mg Documented by: Multivitamins/Vitamin C (Multivitamin Tablet) 1 tab PO DAILY [facility] Last Admin: 12/18/21 08:24 Dose: 1 tab Documented by: Non-Formulary Medication (Cinnamon) 1,000 mg PO DAILY [facility] Last Admin: 12/18/21 08:23 Dose: 1,000 mg Documented by: Patient Own Medication ( Empagliflozin 10 Mg) 1 each PO DAILY [facility] Last Admin: 12/18/21 08:23 Dose: 1 each Documented by: Patient Own Medication (Dwayne Red Softgels) 1 each PO DAILY [facility] Last Admin: 12/18/21 08:23 Dose: 1 each Documented by: Omeprazole (Omeprazole 20 Mg Capsule.) 20 mg PO DAILY@0630 [facility] Last Admin: 12/18/21 07:08 Dose: 20 mg Documented by: Ondansetron HCl (Ondansetron Odt 8 Mg Tab.Rapdis) 8 mg TRANSLINGU Q8H PRN PRN Reason: nausea Polyethylene Glycol (Polyethylene Glycol 3350 17 Gm Powd.Pack) 17 gm PO DAILY PRN PRN Reason: Constipation Last Admin: 11/06/21 12:24 Dose: 17 gm Documented by: Prazosin HCl (Prazosin Hcl 1 Mg Capsule) 1 mg PO BEDTIME PRN; Protocol PRN Reason: nightmares Last Admin: 12/13/21 20:58 Dose: 1 mg Documented by: Trazodone HCl (Trazodone Hcl 100 Mg Tablet) 100 mg PO BEDTIME PRN PRN Reason: Insomnia Last Admin: 12/17/21 21:14 Dose: 100 mg Documented by: Vitamin D (Cholecalciferol (Vitamin D3) 10 Mcg Tablet) 10 mcg PO DAILY [facility] Last Admin: 12/18/21 08:24 Dose: 10 mcg Documented by: Allergies Allergies Allergy/AdvReac Type Severity Reaction Status Date / Time lisinopril [LISINOPRIL] Allergy Unknown SWOLLEN Verified 09/17/21 08:42 LIPS, angioedema, swelling Assessment & Plan Assessment & Plan (1) Schizoaffective disorder: Status: Acute Code(s): F25.9 - Schizoaffective disorder, unspecified (2) Facial weakness: Status: Acute Code(s): R29.810 - Facial weakness (3) Encephalopathy: Status: Acute Code(s): G93.40 - Encephalopathy, unspecified Plan Discharge 12/19/21. I spent minutes with the patient and/or on the patient floor today, greater than?50% of which was spent counseling/coordinating care. Patient educated on: therapeutic strategies and other (pt t) Informed Consent: understands and further education needed Reason for contiued inpatient stay Substantial Risk for: stable for discharge
[2021-12-18] MEDS: Lurasidone HCl 80 MG TABLET PO (18:22)
[2021-12-18 21:10] VITALS: BP 144/88; PULSE 118; TEMP 36.1; O2SAT 98
[2021-12-18] MEDS: Atorvastatin Calcium 10 MG TABLET 5 MG PO (21:25)
[2021-12-18] MEDS: Docusate Sodium 100 MG CAPSULE 200 MG PO (21:25)
[2021-12-18] MEDS: traZODone HCL 100 MG TABLET PO (21:27)
[2021-12-19] MEDS: Omeprazole 20 MG CAPSULE.DR PO (06:08)
[2021-12-19 06:18] LABS: Glucose, Whole Blood 110 mg/dL (60-115)
[2021-12-19 08:00] VITALS: BP 127/81; PULSE 103; RESP 16; TEMP 36.2; O2SAT 99
[2021-12-19] MEDS: Ferrous Sulfate 324 MG TABLET.DR PO (08:46)
[2021-12-19] MEDS: cloZAPine 100 MG TABLET 150 MG PO (08:46)
[2021-12-19] MEDS: LORazepam 1 MG TABLET PO (08:46)
[2021-12-19] MEDS: Cyanocobalamin (Vitamin B-12) 1,000 MCG TABLET 1000 MCG PO (08:47)
[2021-12-19] MEDS: Multivitamin TABLET 1 TAB PO (08:47)
[2021-12-19] MEDS: Ascorbic Acid 500 MG TABLET 1000 MG PO (08:47)
[2021-12-19] MEDS: metFORMIN HCl 1,000 MG TABLET 1000 MG PO (08:47)
[2021-12-19] MEDS: Cholecalciferol (Vitamin D3) 10 MCG TABLET PO (08:47)
[2021-12-19] MEDS: cloNIDine HCL 0.1 MG TABLET PO (08:47)
[2021-12-19] MEDS: Losartan Potassium 25 MG TABLET PO (08:47)
[2021-12-19] MEDS: Enoxaparin Sodium 40 MG/0.4 ML SYRINGE SUBCUT (12:47)
--- NOTE | 2021-12-19 14:54 | P.DS_ITS ---
DS: Providers Provider Date of Service: 12/19/21 Date of admission: 09/19/21 22:55 Date of discharge: 12/19/21 Primary care physician: Liss Moctezuma MD Admitting clinician: Marci Jones Attending physician on admission: Marci Jones Consults: 10/18/21 08:15 Consult to Psychiatry Routine Consulting Provider: Guido Luke Reason for consultation: ECT Consult- pt's mother requesting Has provider been notified: No 11/20/21 16:20 Consult to Neurology Routine Consulting Provider: [facility] Reason for consultation: ? paraneoplastic syndrome/ dx of breast carcinoma Has provider been notified: Yes Attending physician on discharge: Marci Jones Discharging clinician: Marci Jones DS: Diagnosis Discharge Diagnosis (1) Schizoaffective disorder: Status: Acute (2) Facial weakness: Status: Acute (3) Encephalopathy: Status: Acute DS: Medications Discharge Medications Home Medications: Previous Rx's Medication Instructions Recorded lancets 28 gauge (FreeStyle #2 box 01/03/21 Lancets) blood-glucose meter (FreeStyle #1 ea 09/12/21 Lite Meter) empagliflozin 10 mg tablet 10 mg PO DAILY #30 tab 10/02/21 (Jardiance) Cinnamon 1,000 mg PO DAILY #30 tab 12/19/21 Jardiance 10 mg PO DAILY #30 tab 12/19/21 Dwayne Red 1 ea PO DAILY #30 tab 12/19/21 ascorbic acid (vitamin C) 500 mg 1,000 mg PO DAILY #60 tab 12/19/21 tablet (Vitamin C) cholecalciferol (vitamin D3) 10 10 mcg PO DAILY #30 tab 12/19/21 mcg (400 unit) tablet (Vitamin D3) clonidine HCl 0.1 mg tablet 0.1 mg PO BID #90 tab 12/19/21 clonidine HCl 0.1 mg tablet 0.1 mg PO DAILY PRN #0 tab 12/19/21 clozapine 100 mg tablet 150 mg PO BID #90 tab 12/19/21 cyanocobalamin (vitamin B-12) 1,000 mcg PO DAILY #30 tab 12/19/21 1,000 mcg tablet (Vitamin B-12) docusate sodium 100 mg capsule 200 mg PO BEDTIME #60 cap 12/19/21 enoxaparin 40 mg/0.4 mL 40 mg (0.4 mL) SUBCUT Q24H #6 12/19/21 subcutaneous syringe applicator ferrous sulfate 324 mg (65 mg 324 mg PO DAILY #30 tab 12/19/21 iron) tablet,delayed release lorazepam 1 mg tablet 1 mg PO BID #60 tab 12/19/21 losartan 25 mg tablet 25 mg PO DAILY #30 tab 12/19/21 lurasidone 80 mg tablet (Latuda) 80 mg PO 1800 #30 tab 12/19/21 metformin 1,000 mg tablet 1,000 mg PO BID #60 tab 12/19/21 multivitamin (Daily-Asha) 1 tab PO DAILY #3 tab 12/19/21 omeprazole 20 mg capsule,delayed 20 mg PO DAILY #30 cap 12/19/21 release ondansetron 8 mg disintegrating 8 mg PO Q8H PRN #90 tab 12/19/21 tablet polyethylene glycol 3350 17 gram 17 g PO DAILY PRN #30 ea 12/19/21 oral powder packet prazosin 1 mg capsule 1 mg PO BEDTIME PRN #30 cap 12/19/21 simvastatin 5 mg tablet 5 mg PO BEDTIME #30 tab 12/19/21 trazodone 100 mg tablet 100 mg PO BEDTIME PRN #30 tab 12/19/21 Mental Status Exam Mental Status Exam Patient Appearance: Appropriate Patient Orientation: Person, Place, Time and Situation Level of Consciousness: Alert Patient Behavior: Talkative and Good Eye Contact Mood Description: Anxious Affect Description: Flat Patient Cognition Impaired: No Ability to Follow Directions: Good Speech Pattern: Clear, Spontaneous Speech and Soft-Spoken Memory Description: Episodic Impaired Hallucinations: None Delusions: Not Present Thought Process: Goal Oriented Thought Content: positive for Goal Oriented Judgement: Good Data Data Completed and Pending Completed studies during hospitalization [Text1]: 12/13/21 12/14/21 12/15/21 06:09 06:05 06:13 WBC RBC Hgb Hct MCV MCH MCHC RDW Plt Count MPV Immature Gran % (Auto) Neut % (Auto) Lymph % (Auto) Kershaw % (Auto) Eos % (Auto) Baso % (Auto) Lymph # (Auto) Kershaw # (Auto) Eos # (Auto) Baso # (Auto) Abs Immat Gran (auto) Absolute Neuts (auto) Absolute Nucleated RBC Nucleated RBC % (auto) Sodium Potassium Chloride Carbon Dioxide Anion Gap BUN Creatinine Estim Creat Clear Calc Estimated GFR POC Glucose 118 H 123 H 111 Random Glucose Calcium Total Bilirubin AST ALT Alkaline Phosphatase Total Protein Albumin 12/16/21 12/17/21 12/17/21 06:38 06:46 08:09 WBC RBC Hgb Hct MCV MCH MCHC RDW Plt Count MPV Immature Gran % (Auto) Neut % (Auto) Lymph % (Auto) Kershaw % (Auto) Eos % (Auto) Baso % (Auto) Lymph # (Auto) Kershaw # (Auto) Eos # (Auto) Baso # (Auto) Abs Immat Gran (auto) Absolute Neuts (auto) Absolute Nucleated RBC Nucleated RBC % (auto) Sodium 141 Potassium 4.3 Chloride 106 Carbon Dioxide 20 L Anion Gap 19 BUN 15 Creatinine 0.73 Estim Creat Clear Calc 88.2 Estimated GFR > 60 POC Glucose 135 H 115 Random Glucose 182 H Calcium 9.8 Total Bilirubin 0.6 AST 17 ALT 28 Alkaline Phosphatase 104 Total Protein 6.8 Albumin 4.2 12/17/21 12/17/21 12/18/21 08:09 08:09 07:02 WBC 8.5 RBC 3.80 L Hgb 12.3 Hct 37.1 MCV 97.6 MCH 32.4 MCHC 33.2 RDW 16.4 H Plt Count 386 MPV 10.9 Immature Gran % (Auto) 0.8 H Neut % (Auto) 66.0 Lymph % (Auto) 26.4 Kershaw % (Auto) 6.2 Eos % (Auto) 0.1 Baso % (Auto) 0.5 Lymph # (Auto) 2.2 Kershaw # (Auto) 0.5 Eos # (Auto) 0.0 Baso # (Auto) 0.0 Abs Immat Gran (auto) 0.07 H Absolute Neuts (auto) Cancelled 5.6 Absolute Nucleated RBC 0.000 Nucleated RBC % (auto) 0.0 Sodium Potassium Chloride Carbon Dioxide Anion Gap BUN Creatinine Estim Creat Clear Calc Estimated GFR POC Glucose 176 H Random Glucose Calcium Total Bilirubin AST ALT Alkaline Phosphatase Total Protein Albumin 12/19/21 06:12 WBC RBC Hgb Hct MCV MCH MCHC RDW Plt Count MPV Immature Gran % (Auto) Neut % (Auto) Lymph % (Auto) Kershaw % (Auto) Eos % (Auto) Baso % (Auto) Lymph # (Auto) K[place]haw # (Auto) Eos # (Auto) Baso # (Auto) Abs Immat Gran (auto) Absolute Neuts (auto) Absolute Nucleated RBC Nucleated RBC % (auto) Sodium Potassium Chloride Carbon Dioxide Anion Gap BUN Creatinine Estim Creat Clear Calc Estimated GFR POC Glucose 110 Random Glucose Calcium Total Bilirubin AST ALT Alkaline Phosphatase Total Protein Albumin 10/03/21 19:15 Urine clean catch - Urine roberts top Urine Culture - Final Imaging Diagnostic Imaging Impressions Brain MRI 11/20/21 13:00 IMPRESSION: 1. No acute intracranial abnormalities. 2. Mild underlying microangiopathy and generalized cerebral volume loss. DS: Summary Hospital Course Hospital Course: Pt with history of schizoaffective disorder, depressed, hx of suicide attempts. Presenting sx of MSE change-hearing voices, paranoia, delusions of persecution- feeling there was a plan against her to convict her of a crime and incarcerate h er with slowed cognition, thought blocking, fears. Pt/family report hx of symptoms since her 20's with first admission 1993. Hx of six admissions reported. Pt is well accomplished with a master's degree obtained. Recent diagnosis of R breast cancer with first phase of chemotherapy completed. Reported trials of Olanzapine, Clozapine, Prozac, Seroquel, Topiramate, Bupropion. Pt was unwilling to continue treatment upon admission. [address] Abilify was titrated to 30 mg without efficacy. Clozaril was titrated to 300 mg with efficacy. Latuda was initiated and titrated with ef ficacy as well. Clonidine/Prazosin were effective as well. Pt completed her second phase of chemotherapy during her admission, having one treatment left scheduled for 12/25/21. During her admission her mental status/memory impairment was a focus of symptom mgt as her psychosis resolved. A paraneoplastic panel was sent out and is essentially negative with one titre remaining to be evaluated with [facility]. Memory, cognition, functioning continues to improve. Family is considering a consult with [facility] to discuss possible paraneoplastic syndrome. MRI indicates mild underlying microangiopathy and generalized cerebral volume loss. Pt will have a full out patient lab panel on 12/24/21 prior to return to out patient care. Time spent discussing smoking cessation with patient: 3 to 10 minutes Status at Discharge Functional status at discharge: independent ambulation Overall status at discharge: patient is progressing back to baseline Time Spent with Patient Time attestation: Total time spent providing and/or coordinating discharge services: 60 Time spent: Greater than 30 minutes Discharge Plan Discharge Patient Disposition: Home, Self-Care Discharge Diagnosis: Schizoaffective Disorder Right Breast Cancer Hypertension Hypercholesterolemia GERD Diabetes Type II Referrals: Psychiatrist: Dr. Timothy Zuñiga ([facility]) [Other] - 01/06/22 10:30 am (In office ) Therapist: Lin Magana ([facility]) [Other] - 1 Week (Telehealth ) [facility]/Day Treatment: [facility] [Other] - 1 Week (Referral is being processed by [facility]; follow up with calling in one week ) [facility] Natural Resource Specialist: Apoorva Kelly ([facility]) [Other] - 1 Week (Follow up with any questions and regarding [facility] referral. You are waiting to be assigned a case manger and Apoorva will be your contact in the interim.) Oncology: Dr. Mora ([facility]) [Other] - 12/25/21 9:00 am (Come in earlier to complete required lab work ) Visiting Nurse: Pur[facility] ([facility]) [Other] - 1 Week (Fax- [phone] Purvi should be contacting you to arrange a time to come to the home to re-start) Liss Moctezuma MD [Primary Care Provider] - 1 Week Discharge Medications: New enoxaparin 40 mg/0.4 mL Syringe 40 mg subcut Q24H Qty: 6 0RF ferrous sulfate 324 mg (65 mg iron) Tablet,Delayed Release (Dr/Ec) 324 mg PO DAILY Qty: 30 0RF clonidine HCl 0.1 mg Tablet 0.1 mg PO DAILY PRN (Reason: hyperarousal, anxiety) Qty: 0 0RF Protocol: Hold for SBP< HOLD for SBP < : 90 clonidine HCl 0.1 mg Tablet 0.1 mg PO BID Qty: 90 0RF Protocol: Hold for SBP< HOLD for SBP < : 90 clozapine 100 mg Tablet 150 mg PO BID Qty: 90 0RF prazosin 1 mg Capsule 1 mg PO BEDTIME PRN (Reason: nightmares) Qty: 30 0RF Protocol: Hold for SBP< HOLD for SBP < : 90 lorazepam 1 mg Tablet 1 mg PO BID Qty: 60 0RF Latuda 80 mg Tablet 80 mg PO 1800 Qty: 30 0RF trazodone 100 mg Tablet 100 mg PO BEDTIME PRN (Reason: Insomnia) Qty: 30 0RF docusate sodium 100 mg Capsule 200 mg PO BEDTIME Qty: 60 0RF polyethylene glycol 3350 17 gram Powder In Packet 17 g PO DAILY PRN (Reason: Constipation) Qty: 30 0RF ascorbic acid (vitamin C) [Vitamin C] 500 mg Tablet 1,000 mg PO DAILY Qty: 60 0RF cholecalciferol (vitamin D3) [Vitamin D3] 10 mcg (400 unit) Tablet 10 mcg PO DAILY Qty: 30 0RF cyanocobalamin (vitamin B-12) [Vitamin B-12] 1,000 mcg Tablet 1,000 mcg PO DAILY Qty: 30 0RF multivitamin [Daily-Asha] Tablet 1 tab PO DAILY Qty: 3 0RF Cinnamon 1,000 mg PO DAILY Qty: 30 0RF Jardiance 10 mg PO DAILY Qty: 30 0RF Dwayne Red 1 ea PO DAILY Qty: 30 0RF Continued (DME) lancets [FreeStyle Lancets] 28 gauge misc See Rx Instructions .ROUTE .MEDSUPPLY Qty: 2 3RF Rx Instructions: Twice a day (DME) blood-glucose meter [FreeStyle Lite Meter] Kit See Rx Instructions .ROUTE .MEDSUPPLY Qty: 1 0RF Rx Instructions: As directed Jardiance 10 mg tablet 10 mg PO DAILY Qty: 30 3RF ondansetron 8 mg tablet,disintegrating 8 mg PO Q8H PRN (Reason: nausea) Qty: 90 0RF simvastatin 5 mg tablet 5 mg PO BEDTIME Qty: 30 0RF metformin 1,000 mg tablet 1,000 mg PO BID Qty: 60 0RF losartan 25 mg tablet 25 mg PO DAILY Qty: 30 0RF omeprazole 20 mg capsule,delayed release(DR/EC) 20 mg PO DAILY Qty: 30 0RF Discontinued clonidine HCl 0.1 mg tablet 0.1 mg PO BID PRN (Reason: Anxiety) 0RF bupropion HCl 100 mg tablet sustained-release 12 hr 100 mg PO QAM 0RF docusate sodium 100 mg capsule 100 mg PO DAILY 0RF clozapine 25 mg tablet 25 mg PO BID 0RF aripiprazole 20 mg tablet 20 mg PO QAM 0RF clozapine 50 mg tablet 50 mg PO BID 0RF Discharge Orders: Discharge Order (Routine); Ordered 12/19/21 Ordered By: Marci Jones Diet: advance to usual diet Activity on Discharge: As tolerated Stand Alone Forms: Patient Portal Discharge page, Community Support Care Plan Goals: Mood Stabilization Clarity of Thought Process Health Concerns: Schizoaffective Disorder R Breast Cancer Hypertension Hypercholesterolemia GERD Diabetes, Type II Plan of Treatment: Attend scheduled appointments Follow plan of care with [facility] Oncology Take medications as prescribed Call/Return as needed Crisis Team if needed [phone] Assessment: Alert, happy regarding dischage with apprehension. non-psychotic, non-suicidal, non-depressed Discharge Date/Time: 12/19/21 13:41
== END 2021-12-19 13:41 | disposition home or self-care (01) | DRG 885 ==
LOC: HO.ED 22:37 → HO.PM5 22:57
PROVIDERS: Physician Assistant; Registered Nurse; Social Worker; Admitting Provider Psychiatry & Neurology Psychiatry; Emergency Provider Internal Medicine; PCP Internal Medicine; Visit Provider Clinical Nurse Specialist Psychiatric/Mental Health, Adult
DX: F25.9 Schizoaffective disorder, unspecified (principal); R45.851 Suicidal ideations; G93.40 Encephalopathy, unspecified; K21.9 Gastro-esophageal reflux disease without esophagitis; E78.5 Hyperlipidemia, unspecified; C50.911 Malignant neoplasm of unspecified site of right female breast; E11.65 Type 2 diabetes mellitus with hyperglycemia; Z91.51 Personal history of suicidal behavior; I10 Essential (primary) hypertension; Z20.822 Contact with and (suspected) exposure to COVID-19; Z88.8 Allergy status to other drugs, medicaments and biological substances; Z79.84 Long term (current) use of oral hypoglycemic drugs; Z79.899 Other long term (current) drug therapy
CPT/HCPCS: 36415; 36593; 70551; 80048; 80053; 80061; 80159; 80307; 81001; 82306; 82565; 82607; 82746; 82947; 83036; 83519; 83880; 84443; 84484; 85025; 85048; 86052; 86255; 86341; 86596; 87086; 87635; 93005; 96375; 96413; 99213; 99214; 99215; 99283; J1200; J1642; J1650; J2997; J8540; J9267; Q0163

== ENCOUNTER 2021-12-24 11:43 | Outpatient (REF) | payer MEDICARE, MEDICAID, SELFPAY ==
[2021-12-24 12:07] LABS: MANUAL DIFF FLAG NO
[2021-12-24 12:18] LABS: Basophils Percent Auto 0.5 % (0-2); Eosinophils Percent Auto 0.3 % (0-4); Hematocrit 33.5 % (37.0-47.0); Hemoglobin 11.1 g/dl (12.0-16.0); Imm Gran Abs Auto 0.08 X10*3/uL (0.00-0.03); Imm Gran Pct Auto 1.1 % (0.0-0.4); Lymphocytes Absolute Auto 1.8 X10*3/uL (1.2-4.9); Mean Corpuscular HGB Conc 33.1 g/dl (31.0-35.0); Mean Corpuscular Hemoglobin 32.6 pg (27.0-33.0); Mean Corpuscular Volume 98.5 fL (80.0-98.0); Mean Platelet Volume 10.5 fL (9.4-12.3); Monocytes Absolute Auto 0.4 X10*3/uL (0.1-1.2); Monocytes Percent Auto 4.6 % (2-11); Neutrophils Absolute Auto 5.3 x10*3/uL (2.0-8.3); Neutrophils Percent Auto 69.5 % (45-73); Platelet Count 334 X10*3/uL (160-400); Red Cell Distribution Width 16.5 % (11.0-16.0); White Blood Count 7.6 X10*3/uL (4.8-10.8)
[2021-12-24 12:34] LABS: Estimated Average Glucose 146 mg/dL; Hemoglobin A1c % 6.7 %
[2021-12-24 12:42] LABS: Alanine Aminotransferase 23 U/L (0-31); Albumin Level 4.1 g/dL (3.5-5.0); Alkaline Phosphatase 97 U/L (39-117); Anion Gap 14 (12-20); Aspartate Amino Transferase 14 U/L (5-31); Bilirubin Total 0.4 mg/dL (0.0-1.0); Blood Urea Nitrogen 14 mg/dL (9-16); Calcium 9.6 mg/dL (8.4-10.2); Carbon Dioxide 22 mmol/L (22-29); Chloride 109 mmol/L (96-108); Cholesterol 169 mg/dL; Estimated Glomerular Filt Rate > 60; Glucose Random 127 mg/dL (60-115); HDL Cholesterol 59 mg/dL; Iron 44 mcg/dL (30-160); LDL Cholesterol Calculated 87 mg/dl; Percent Iron Saturation 15 % (15-50); Potassium 4.2 mmol/L (3.3-5.1); Sodium 141 mmol/L (135-145); Total Iron Binding Capacity 299 mcg/dL (228-428); Total Protein 6.5 g/dL (6.5-8.0); Triglycerides 118 mg/dL; Unsaturated Iron Binding 255 ug/dL
[2021-12-24 13:03] LABS: Ferritin 164 ng/mL (10-250); Thyroid Stimulating Hormone 1.26 uIU/mL (0.32-4.0)
[2021-12-24 13:33] LABS: Folate 17.7 ng/mL (> or = 4.0); Vitamin B12 812 pg/mL (200-900)
[2021-12-29 00:01] LABS: Clozapine (Clozaril) 513 mcg/L; Norclozapine 164 mcg/L (25-400)
== END 2021-12-24 11:44 | disposition home or self-care (01) ==
LOC: HO.LAB 11:43
PROVIDERS: PCP Internal Medicine; Visit Provider Clinical Nurse Specialist Psychiatric/Mental Health, Adult
DX: F25.9 Schizoaffective disorder, unspecified (principal)
CPT/HCPCS: 36415; 80053; 80061; 80159; 82607; 82728; 82746; 83036; 83540; 84439; 84443; 85025

== ENCOUNTER 2022-01-01 08:21 | Outpatient (REF) | payer MEDICARE, MEDICAID, SELFPAY ==
--- NOTE | ~2022-01-01 | CT_ITS ---
EXAMINATION: CT CHEST WITH CONTRAST CT ABDOMEN AND PELVIS WITH CONTRAST CLINICAL INFORMATION: Breast cancer. Evaluate for recurrence. COMPARISON: None TECHNIQUE: 5 mm thin axial and reformatted 3 mm thin sagittal and coronal images of chest, abdomen and pelvis were obtained following IV 85 mL Omnipaque 350. DLP: 507 mGy-cm FINDINGS: CHEST: The lungs are well-expanded and clear of acute pneumonic process. There is no pulmonary nodule, mass or consolidation. There is minimal haziness in the anterior mediastinum likely postradiation changes. The thyroid lobes are symmetrical and normal. The central trachea and the bronchi widely patent. There is a left central venous port in place. No abnormal size mediastinal or axillary lymphadenopathy seen. There is no pleural effusion or thickening. No abnormal lymph nodes seen in the axilla. The chest wall appears unremarkable. No nodular mass seen. There is a left-sided port chamber. ABDOMEN AND PELVIS: The liver is homogeneous in density, normal size and contour. No focal lesion or intrahepatic ductal dilatation seen. Visualized spleen, pancreas and bilateral adrenal glands are unremarkable. No radiopaque renal calculi or hydronephrosis seen. There is moderate stool seen throughout the colon consistent with significant constipation. Oral contrast opacified small bowel loops are unremarkable. There is no free air or free fluid. There is umbilical hernia containing fat. Rest of the abdominal wall is unremarkable. Imaging through the pelvis reveals distended urinary bladder. The uterus is anteverted with hypodensity within the endometrial canal, question fluid or hemorrhage. There is no free fluid in the cul-de-sac. There are degenerative disc changes with vacuum disc phenomena and spondylosis L5-S1 disc level. Rest the visualized thoracolumbar spine is unremarkable. No aggressive lytic or sclerotic process seen. CT/CT abdomen pelvis w con IMPRESSION: No metastatic disease is seen in the chest, abdomen and pelvis. Moderate to significant constipation. No obstruction. No abnormal lymphadenopathy in the chest, abdomen or pelvis. Small umbilical hernia containing fat. Distended urinary bladder.
[2022-01-01] MEDS: Barium Sulfate Oral (Berry) 450 ML ORAL.SUSP 900 ML PO (11:43)
[2022-01-01] MEDS: iohexoL 300 MG/ML 100 ML INFUS..BTL IV (11:46)
== END 2022-01-01 08:22 | disposition home or self-care (01) ==
LOC: HO.CT 08:21
PROVIDERS: PCP Internal Medicine; Visit Provider Internal Medicine
DX: C50.911 Malignant neoplasm of unspecified site of right female breast (principal)
CPT/HCPCS: 71260; 74177; Q9967

== ENCOUNTER 2022-01-14 11:54 | Outpatient (REF) | payer MEDICARE, MEDICAID, SELFPAY ==
[2022-01-14 12:17] LABS: MANUAL DIFF FLAG NO
[2022-01-14 13:06] LABS: Basophils Percent Auto 0.2 % (0-2); Eosinophils Percent Auto 0.1 % (0-4); Hematocrit 39.8 % (37.0-47.0); Imm Gran Abs Auto 0.04 X10*3/uL (0.00-0.03); Imm Gran Pct Auto 0.3 % (0.0-0.4); Lymphocytes Absolute Auto 2.3 X10*3/uL (1.2-4.9); Lymphocytes Percent Auto 20.1 % (20-40); Mean Corpuscular HGB Conc 32.7 g/dl (31.0-35.0); Mean Corpuscular Hemoglobin 31.5 pg (27.0-33.0); Mean Corpuscular Volume 96.4 fL (80.0-98.0); Mean Platelet Volume 10.7 fL (9.4-12.3); Monocytes Absolute Auto 0.5 X10*3/uL (0.1-1.2); Monocytes Percent Auto 4.3 % (2-11); Neutrophils Absolute Auto 8.8 x10*3/uL (2.0-8.3); Platelet Count 275 X10*3/uL (160-400); Red Blood Count 4.13 X10*6/uL (4.20-5.50); Red Cell Distribution Width 16.3 % (11.0-16.0); White Blood Count 11.7 X10*3/uL (4.8-10.8)
== END 2022-01-14 11:55 | disposition home or self-care (01) ==
LOC: HO.LABR 11:54
PROVIDERS: PCP Internal Medicine; Visit Provider General Practice
DX: Z79.899 Other long term (current) drug therapy (principal)
CPT/HCPCS: 36415; 85025

== ENCOUNTER → 2022-01-16 09:44 | Outpatient (BNVA) | payer MEDICARE, MEDICAID, SELFPAY | PROVIDERS: PCP Internal Medicine; Visit Provider Surgery | DX: C50.911 Malignant neoplasm of unspecified site of right female breast (principal); Z17.0 Estrogen receptor positive status [ER+]; Z92.21 Personal history of antineoplastic chemotherapy | CPT/HCPCS: 99212 ==

== ENCOUNTER 2022-01-29 15:07 | Outpatient (REF) | payer MEDICARE, MEDICAID, SELFPAY | END 2022-01-29 15:08 | disposition home or self-care (01) | LOC: HO.HMGCLDS 15:07 | PROVIDERS: PCP Internal Medicine; Visit Provider Internal Medicine | DX: Z13.89 Encounter for screening for other disorder (principal) ==

== ENCOUNTER 2022-01-30 06:32 | Outpatient (REF) | payer MEDICARE, MEDICAID, SELFPAY ==
[2022-01-30 11:57] LABS: Appearance Urine CLOUDY; Color Urine YELLOW; Glucose Urine UA >=1000 MG/DL (NEG); Leukocyte Esterase Urine NEG (NEG); Nitrite Urine NEG (NEG); PH 5.5 (5.0-8.0); Specific Gravity - Urine >= 1.030 (1.005-1.025); UACC Culture Trigger NO; Urine Blood 3+ (NEG); Urine Ketones NEG (NEG); Urine Protein 1+ MG/DL (NEG-TRACE)
[2022-01-30 13:22] LABS: Bacteria Urine 4+ /LPF; Squamous Epithelial Cell Urine 1+ /LPF
[2022-01-30 13:25] LABS: WBC Clumps Urine NOTED
== END 2022-01-30 06:33 | disposition home or self-care (01) ==
LOC: HO.HMGCLNP 06:32
PROVIDERS: Visit Provider Internal Medicine
DX: R30.0 Dysuria (principal)
CPT/HCPCS: 81001

== ENCOUNTER 2022-01-31 12:44 | Outpatient (REF) | payer MEDICARE, MEDICAID, SELFPAY ==
--- NOTE | 2022-01-31 15:22 | MHC.AU.HFA ---
Hearing Instrument Fitting- Adult- Binaural Date of Visit: 01/31/22 Hearing Instruments Dispensed: Right Ear: Head Of Biology: Phonak Model: Audeo P70-R Serial Number: [id number] Repair Warranty: 04/12/2025 Loss and Damage Warranty: 04/12/2025 Technical Instructor: 0 M Battery Size: Rechargeable Color: Sand Beige Type of Dome: Medium open Type of Wax Guard: CeruShield Left Ear: Head Of Biology: Phonak Model: CROS P-R Serial Number: [id number] Repair Warranty: 04/12/2024 Loss and Damage Warranty: 04/12/2024 Technical Instructor: 0 Battery Size: Rechargeable Color: Sand Beige Type of Mold: Phonak CROS Tip with skeleton lock Type of Wax Guard: None Summary of Fitting: Hearing aid fitting with new rechargeble hearing aids to better facilitate communication and ease of use. Patient's partner is accompanying today as patient has had significant medical and mental health difficulties recently. Ran feedback test and adjusted to patient comfort for listening level for the right ear. Set at 100% target. Volume control deactivated and did not pair aids with cell phone at this time per patient request. Patient and her partner practiced insertion and placing aids in and out of process laboratory specialist several times. When patient wears the mask, her pinnas are pulled forward which causes the aids to not sit properly over the ears. Discussed trying facemask which does not go around the ears. Reviewed care and wax guard change. Patient doing well while in office Recommendations: Recommendations: Hearing instrument care and maintenance were discussed and practiced. See handouts for care/use instructions and battery information. A hearing instrument follow-up is recommended in 2-3 weeks. Diagnosis Code(s): Primary Diagnosis: H90.3 Bilateral Sensorineural Hearing Loss Signature: Provider: Aleksandr Gibson, MIKAYLA-A
== END 2022-01-31 12:45 | disposition home or self-care (01) ==
LOC: HO.HAP 12:44
PROVIDERS: Visit Provider Internal Medicine
DX: Z46.1 Encounter for fitting and adjustment of hearing aid (principal); H90.3 Sensorineural hearing loss, bilateral
CPT/HCPCS: V5011; V5020; V5221; V5240; V5264

== ENCOUNTER 2022-02-14 11:24 | Outpatient (REF) | payer MEDICARE, MEDICAID, SELFPAY ==
[2022-02-14 11:36] LABS: MANUAL DIFF FLAG NO
[2022-02-14 12:17] LABS: Basophils Percent Auto 0.2 % (0-2); Hematocrit 39.3 % (37.0-47.0); Hemoglobin 12.8 g/dl (12.0-16.0); Imm Gran Abs Auto 0.04 X10*3/uL (0.00-0.03); Imm Gran Pct Auto 0.5 % (0.0-0.4); Lymphocytes Absolute Auto 1.7 X10*3/uL (1.2-4.9); Lymphocytes Percent Auto 19.9 % (20-40); Mean Corpuscular HGB Conc 32.6 g/dl (31.0-35.0); Mean Corpuscular Hemoglobin 30.6 pg (27.0-33.0); Mean Platelet Volume 10.3 fL (9.4-12.3); Monocytes Absolute Auto 0.5 X10*3/uL (0.1-1.2); Monocytes Percent Auto 5.3 % (2-11); Neutrophils Absolute Auto 6.4 x10*3/uL (2.0-8.3); Neutrophils Percent Auto 74.1 % (45-73); Platelet Count 257 X10*3/uL (160-400); Red Blood Count 4.18 X10*6/uL (4.20-5.50); Red Cell Distribution Width 14.6 % (11.0-16.0); White Blood Count 8.6 X10*3/uL (4.8-10.8)
== END 2022-02-14 11:25 | disposition home or self-care (01) ==
LOC: HO.LABR 11:24
PROVIDERS: PCP Internal Medicine; Visit Provider General Practice
DX: Z79.899 Other long term (current) drug therapy (principal)
CPT/HCPCS: 36415; 85025

== ENCOUNTER 2022-02-24 14:58 | Outpatient (REF) | payer MEDICARE, MEDICAID, SELFPAY ==
[2022-02-24 16:30] LABS: Appearance Urine CLEAR; Color Urine YELLOW; Glucose Urine UA >=1000 MG/DL (NEG); Leukocyte Esterase Urine NEG (NEG); Nitrite Urine NEG (NEG); PH 5.5 (5.0-8.0); Urine Blood NEG (NEG); Urine Ketones 5 MG/DL (NEG); Urine Protein NEG (NEG-TRACE)
[2022-02-24 16:40] LABS: Bacteria Urine TRACE /LPF; RBC Urine 0 /HPF (0); Squamous Epithelial Cell Urine 1+ /LPF; WBC Urine 0 /HPF (0-4)
== END 2022-02-24 14:59 | disposition home or self-care (01) ==
LOC: HO.HMGCLDS 14:58
PROVIDERS: Internal Medicine; PCP Internal Medicine; Visit Provider Internal Medicine
DX: R30.0 Dysuria (principal)
CPT/HCPCS: 81001

== ENCOUNTER 2022-03-14 09:53 | Outpatient (REF) | payer MEDICARE, MEDICAID, SELFPAY ==
[2022-03-14 10:07] LABS: MANUAL DIFF FLAG NO
[2022-03-14 10:40] LABS: Basophils Percent Auto 0.5 % (0-2); Hematocrit 40.7 % (37.0-47.0); Hemoglobin 13.2 g/dl (12.0-16.0); Imm Gran Abs Auto 0.02 X10*3/uL (0.00-0.03); Imm Gran Pct Auto 0.3 % (0.0-0.4); Lymphocytes Absolute Auto 0.9 X10*3/uL (1.2-4.9); Lymphocytes Percent Auto 13.8 % (20-40); Mean Corpuscular HGB Conc 32.4 g/dl (31.0-35.0); Mean Corpuscular Hemoglobin 30.5 pg (27.0-33.0); Mean Platelet Volume 10.2 fL (9.4-12.3); Monocytes Absolute Auto 0.6 X10*3/uL (0.1-1.2); Monocytes Percent Auto 9.2 % (2-11); Neutrophils Percent Auto 76.2 % (45-73); Platelet Count 255 X10*3/uL (160-400); Red Blood Count 4.33 X10*6/uL (4.20-5.50); Red Cell Distribution Width 13.8 % (11.0-16.0); White Blood Count 6.5 X10*3/uL (4.8-10.8)
== END 2022-03-14 09:54 | disposition home or self-care (01) ==
LOC: HO.LAB 09:53
PROVIDERS: PCP Internal Medicine; Visit Provider General Practice
DX: Z79.899 Other long term (current) drug therapy (principal)
CPT/HCPCS: 36415; 85025

== ENCOUNTER 2022-04-08 11:15 | Outpatient (REF) | payer MEDICARE, MEDICAID, SELFPAY ==
[2022-04-08 13:56] LABS: MANUAL DIFF FLAG NO
[2022-04-08 14:17] LABS: Basophils Percent Auto 0.5 % (0-2); Hematocrit 38.1 % (37.0-47.0); Hemoglobin 12.6 g/dl (12.0-16.0); Imm Gran Abs Auto 0.02 X10*3/uL (0.00-0.03); Imm Gran Pct Auto 0.3 % (0.0-0.4); Lymphocytes Absolute Auto 1.1 X10*3/uL (1.2-4.9); Lymphocytes Percent Auto 16.8 % (20-40); Mean Corpuscular HGB Conc 33.1 g/dl (31.0-35.0); Mean Corpuscular Hemoglobin 30.8 pg (27.0-33.0); Mean Corpuscular Volume 93.2 fL (80.0-98.0); Mean Platelet Volume 10.8 fL (9.4-12.3); Monocytes Absolute Auto 0.4 X10*3/uL (0.1-1.2); Monocytes Percent Auto 6.8 % (2-11); Neutrophils Absolute Auto 4.8 x10*3/uL (2.0-8.3); Neutrophils Percent Auto 75.6 % (45-73); Platelet Count 242 X10*3/uL (160-400); Red Blood Count 4.09 X10*6/uL (4.20-5.50); Red Cell Distribution Width 14.6 % (11.0-16.0); White Blood Count 6.3 X10*3/uL (4.8-10.8)
== END 2022-04-08 11:16 | disposition home or self-care (01) ==
LOC: HO.HMGCLR 11:15
PROVIDERS: PCP Internal Medicine; Visit Provider General Practice
DX: Z79.899 Other long term (current) drug therapy (principal)
CPT/HCPCS: 36415; 85025

== ENCOUNTER → 2022-04-24 13:19 | Outpatient (BNVA) | payer MEDICARE, MEDICAID, SELFPAY | PROVIDERS: PCP Internal Medicine; Visit Provider Surgery | DX: C50.911 Malignant neoplasm of unspecified site of right female breast (principal) | CPT/HCPCS: 99212 ==

== ENCOUNTER 2022-05-07 08:12 | Outpatient (REF) | payer MEDICARE, MEDICAID, SELFPAY ==
--- NOTE | ~2022-05-07 | MM_ITS ---
EXAMINATION: MM DIAGNOSTIC DIGITAL BREAST TOMOSYNTHESIS, BILATERAL CLINICAL INFORMATION: Right IDC status post lumpectomy 06/24/2021. Radiation completed 04/18/2022. Due for yearly. COMPARISON: Mammography: 06/24/2021, 05/28/2021, 05/13/2021, 04/18/2020, 04/13/2019 TECHNIQUE: Digital breast tomosynthesis is performed in both the craniocaudal and mediolateral oblique views along with computer-aided detection (CAD). Synthesized 2D images are generated from the tomosynthesis. Additional right magnification CC and right magnification ML views are obtained. FINDINGS: There are scattered areas of fibroglandular density (ACR BI-RADS breast composition Category b). Breast tissue composition borders on heterogeneously dense. There are post therapy changes on the right with scarring and smooth skin thickening. There is portion of port overlying the posterior left axilla on the MLO view. There is no mass or suspicious architectural changes or abnormal calcifications. Results are provided to the patient at time of visit by the technologist. MM/MM tomosynthesis diagnostic BI IMPRESSION: -No mammographic evidence of malignancy. -Post therapy changes right breast. ASSESSMENT: BI-RADS 2: Benign RECOMMENDATION: Annual bilateral mammography. This patient's information was entered into a reminder system with a target due date for their next mammogram.
== END 2022-05-07 08:13 | disposition home or self-care (01) ==
LOC: HO.MAMMO 08:12
PROVIDERS: Visit Provider Internal Medicine
DX: Z85.3 Personal history of malignant neoplasm of breast (principal); Z92.3 Personal history of irradiation; Z98.890 Other specified postprocedural states
CPT/HCPCS: 77062; 77066

== ENCOUNTER 2022-05-19 14:02 | Outpatient (REF) | payer MEDICARE, MEDICAID, SELFPAY ==
[2022-05-19 16:36] LABS: MANUAL DIFF FLAG NO
[2022-05-19 16:58] LABS: Basophils Percent Auto 0.3 % (0-2); Hematocrit 36.8 % (37.0-47.0); Hemoglobin 12.5 g/dl (12.0-16.0); Imm Gran Abs Auto 0.03 X10*3/uL (0.00-0.03); Imm Gran Pct Auto 0.5 % (0.0-0.4); Lymphocytes Percent Auto 30.9 % (20-40); Mean Corpuscular Hemoglobin 31.6 pg (27.0-33.0); Mean Corpuscular Volume 92.9 fL (80.0-98.0); Mean Platelet Volume 10.5 fL (9.4-12.3); Monocytes Absolute Auto 0.4 X10*3/uL (0.1-1.2); Monocytes Percent Auto 6.6 % (2-11); Neutrophils Absolute Auto 3.9 x10*3/uL (2.0-8.3); Neutrophils Percent Auto 61.7 % (45-73); Platelet Count 239 X10*3/uL (160-400); Red Blood Count 3.96 X10*6/uL (4.20-5.50); Red Cell Distribution Width 14.9 % (11.0-16.0); White Blood Count 6.3 X10*3/uL (4.8-10.8)
== END 2022-05-19 14:03 | disposition home or self-care (01) ==
LOC: HO.HMGCLR 14:02
PROVIDERS: PCP Internal Medicine; Visit Provider General Practice
DX: Z79.899 Other long term (current) drug therapy (principal)
CPT/HCPCS: 36415; 85025

== ENCOUNTER 2022-06-17 12:24 | Day surgery (SDC) | payer MEDICARE, MEDICAID, SELFPAY ==
--- NOTE | ~2022-06-17 | IR_ITS ---
EXAMINATION: REMOVAL OF TUNNELED PORT CLINICAL INFORMATION: Breast cancer. Port no longer needed. COMPARISON: None TECHNIQUE: Procedure and risks and benefits including bleeding and infection were discussed with the patient and informed consent was obtained. All elements of maximal sterile barrier technique followed including use of cap, mask, sterile gown, sterile gloves, a sterile full body drape and hand hygiene. Also followed skin preparation with 2% chlorhexidine for cutaneous antisepsis, and sterile ultrasound preparation with sterile gel and probe cover when applicable. The left upper chest over the port was prepped and draped in usual sterile fashion. The skin and soft tissues over the port were anesthetized with 1% lidocaine plain. A small incision was made. Using blunt dissection, catheter and port were dissected from the surrounding soft tissues and removed. The pocket was irrigated with saline. The incision was closed using 3 3-0 interrupted absorbable sutures followed by a running 4-0 absorbable subcuticular suture. No fluoroscopic images were obtained. Total sedation time 35 minutes. Patient received Versed 1.5 mg and fentanyl 75 mcg intravenously during the procedure. Conscious sedation was provided by registered nurse under my direct supervision with continuous hemodynamic monitoring a [id number] contact. DAP 6 roberts per centimeter squared. IR/IR cvc remove tunnel w prt/lead auditor IMPRESSION: Left internal jugular Port-A-Cath removal.
[2022-06-17 12:44] LABS: MANUAL DIFF FLAG NO
[2022-06-17 12:46] LABS: Basophils Percent Auto 0.5 % (0-2); Eosinophils Percent Auto 0.2 % (0-4); Hematocrit 40.1 % (37.0-47.0); Hemoglobin 13.2 g/dl (12.0-16.0); Imm Gran Abs Auto 0.01 X10*3/uL (0.00-0.03); Imm Gran Pct Auto 0.2 % (0.0-0.4); Lymphocytes Absolute Auto 1.6 X10*3/uL (1.2-4.9); Lymphocytes Percent Auto 24.4 % (20-40); Mean Corpuscular HGB Conc 32.9 g/dl (31.0-35.0); Mean Corpuscular Hemoglobin 30.6 pg (27.0-33.0); Mean Corpuscular Volume 92.8 fL (80.0-98.0); Mean Platelet Volume 9.3 fL (9.4-12.3); Monocytes Absolute Auto 0.4 X10*3/uL (0.1-1.2); Monocytes Percent Auto 5.7 % (2-11); Neutrophils Absolute Auto 4.6 x10*3/uL (2.0-8.3); Platelet Count 247 X10*3/uL (160-400); Red Blood Count 4.32 X10*6/uL (4.20-5.50); Red Cell Distribution Width 15.4 % (11.0-16.0); White Blood Count 6.7 X10*3/uL (4.8-10.8)
[2022-06-17 12:54] LABS: Partial Thromboplastin Time 34.8 SEC (26.0-36.4)
[2022-06-17 13:05] LABS: Glucose, Whole Blood 94 mg/dL (60-115)
[2022-06-17 13:06] VITALS: BMI 30.5
[2022-06-17] MEDS: Lidocaine HCl 1 % 20 ML VIAL 10 ML SUBCUT (15:15)
--- NOTE | 2022-06-17 15:16 | P.RADPN_ITS ---
RADIOLOGY Narrative Narrative: LIJ portacath removed.
--- NOTE | 2022-06-17 15:16 | HO.RADPN ---
RADIOLOGY Narrative Narrative: LIJ portacath removed.
[2022-06-17 15:25] VITALS: BP 132/78; PULSE 88; RESP 16; TEMP 36.8; O2SAT 100
[2022-06-17 15:40] VITALS: BP 140/81; PULSE 99; RESP 16; O2SAT 100
[2022-06-17 15:55] VITALS: BP 140/81; PULSE 102; RESP 17; O2SAT 100
[2022-06-17 16:10] VITALS: BP 142/85; PULSE 110; RESP 18; TEMP 36.8; O2SAT 100
== END 2022-06-17 16:25 | disposition home or self-care (01) ==
PROVIDERS: Radiology Diagnostic Radiology; PCP Internal Medicine; Visit Provider Internal Medicine
PROC: (CPT 36590; principal; 2022-06-17 14:00)
DX: Z45.2 Encounter for adjustment and management of vascular access device (principal); C50.411 Malignant neoplasm of upper-outer quadrant of right female breast; Z17.0 Estrogen receptor positive status [ER+]; Z79.810 Long term (current) use of selective estrogen receptor modulators (SERMs); I10 Essential (primary) hypertension; E11.9 Type 2 diabetes mellitus without complications; G62.0 Drug-induced polyneuropathy; T45.1X5D Adverse effect of antineoplastic and immunosuppressive drugs, subsequent encounter; Z88.8 Allergy status to other drugs, medicaments and biological substances
CPT/HCPCS: 36415; 36590; 82947; 85025; 85610; 85730; 99152; 99153; J2250; J3010

== ENCOUNTER 2022-07-07 08:58 | Outpatient (REF) | payer MEDICARE, MEDICAID, SELFPAY ==
[2022-07-07 11:17] LABS: MANUAL DIFF FLAG NO
[2022-07-07 11:29] LABS: Basophils Percent Auto 0.2 % (0-2); Eosinophils Percent Auto 0.2 % (0-4); Hematocrit 39.5 % (37.0-47.0); Hemoglobin 12.8 g/dl (12.0-16.0); Imm Gran Abs Auto 0.02 X10*3/uL (0.00-0.03); Imm Gran Pct Auto 0.2 % (0.0-0.4); Lymphocytes Absolute Auto 1.5 X10*3/uL (1.2-4.9); Lymphocytes Percent Auto 17.7 % (20-40); Mean Corpuscular HGB Conc 32.4 g/dl (31.0-35.0); Mean Corpuscular Hemoglobin 30.6 pg (27.0-33.0); Mean Corpuscular Volume 94.5 fL (80.0-98.0); Mean Platelet Volume 10.6 fL (9.4-12.3); Monocytes Absolute Auto 0.4 X10*3/uL (0.1-1.2); Monocytes Percent Auto 5.3 % (2-11); Neutrophils Absolute Auto 6.3 x10*3/uL (2.0-8.3); Neutrophils Percent Auto 76.4 % (45-73); Platelet Count 229 X10*3/uL (160-400); Red Blood Count 4.18 X10*6/uL (4.20-5.50); Red Cell Distribution Width 15.7 % (11.0-16.0); White Blood Count 8.3 X10*3/uL (4.8-10.8)
== END 2022-07-07 08:59 | disposition home or self-care (01) ==
LOC: HO.HMGCLR 08:58
PROVIDERS: PCP Internal Medicine; Visit Provider General Practice
DX: Z79.899 Other long term (current) drug therapy (principal)
CPT/HCPCS: 36415; 85025

== ENCOUNTER 2022-08-06 14:36 | Outpatient (REF) | payer MEDICARE, MEDICAID, SELFPAY ==
[2022-08-06 16:40] LABS: MANUAL DIFF FLAG NO
[2022-08-06 16:44] LABS: Basophils Percent Auto 0.4 % (0-2); Eosinophils Percent Auto 0.1 % (0-4); Hematocrit 39.7 % (37.0-47.0); Imm Gran Abs Auto 0.02 X10*3/uL (0.00-0.03); Imm Gran Pct Auto 0.3 % (0.0-0.4); Lymphocytes Absolute Auto 1.7 X10*3/uL (1.2-4.9); Lymphocytes Percent Auto 25.7 % (20-40); Mean Corpuscular HGB Conc 32.7 g/dl (31.0-35.0); Mean Corpuscular Hemoglobin 31.5 pg (27.0-33.0); Mean Corpuscular Volume 96.1 fL (80.0-98.0); Mean Platelet Volume 10.5 fL (9.4-12.3); Monocytes Absolute Auto 0.5 X10*3/uL (0.1-1.2); Neutrophils Absolute Auto 4.4 x10*3/uL (2.0-8.3); Neutrophils Percent Auto 65.5 % (45-73); Platelet Count 220 X10*3/uL (160-400); Red Blood Count 4.13 X10*6/uL (4.20-5.50); Red Cell Distribution Width 15.1 % (11.0-16.0); White Blood Count 6.7 X10*3/uL (4.8-10.8)
== END 2022-08-06 14:37 | disposition home or self-care (01) ==
LOC: HO.HMGCLDS 14:36
PROVIDERS: PCP Internal Medicine; Visit Provider General Practice
DX: Z79.899 Other long term (current) drug therapy (principal)
CPT/HCPCS: 36415; 85025

== ENCOUNTER → 2022-08-27 13:17 | Outpatient (BNVA) | payer MEDICARE, MEDICAID, SELFPAY | PROVIDERS: PCP Internal Medicine; Referring Provider Internal Medicine; Visit Provider Internal Medicine | DX: Z12.11 Encounter for screening for malignant neoplasm of colon (principal); C50.911 Malignant neoplasm of unspecified site of right female breast | CPT/HCPCS: 99202 ==

== ENCOUNTER 2022-09-05 14:26 | Outpatient (REF) | payer MEDICARE, MEDICAID, SELFPAY ==
[2022-09-05 16:42] LABS: MANUAL DIFF FLAG NO
[2022-09-05 16:47] LABS: Basophils Percent Auto 0.5 % (0-2); Eosinophils Percent Auto 0.4 % (0-4); Hematocrit 39.8 % (37.0-47.0); Hemoglobin 13.4 g/dl (12.0-16.0); Imm Gran Abs Auto 0.03 X10*3/uL (0.00-0.03); Imm Gran Pct Auto 0.4 % (0.0-0.4); Lymphocytes Absolute Auto 1.9 X10*3/uL (1.2-4.9); Lymphocytes Percent Auto 26.4 % (20-40); Mean Corpuscular HGB Conc 33.7 g/dl (31.0-35.0); Mean Platelet Volume 11.5 fL (9.4-12.3); Monocytes Absolute Auto 0.5 X10*3/uL (0.1-1.2); Monocytes Percent Auto 6.5 % (2-11); Neutrophils Absolute Auto 4.8 x10*3/uL (2.0-8.3); Neutrophils Percent Auto 65.8 % (45-73); PLT CLUMP 1; Red Blood Count 4.19 X10*6/uL (4.20-5.50); Red Cell Distribution Width 14.5 % (11.0-16.0); SCAN SMEAR FLAG 1
[2022-09-05 18:07] LABS: White Blood Count 7.3 X10*3/uL (4.8-10.8)
[2022-09-05 18:08] LABS: Platelet Count 158 X10*3/uL (160-400)
== END 2022-09-05 14:27 | disposition home or self-care (01) ==
LOC: HO.HMGCLR 14:26
PROVIDERS: Visit Provider General Practice
DX: Z79.899 Other long term (current) drug therapy (principal)
CPT/HCPCS: 36415; 85025

== ENCOUNTER 2022-09-19 10:58 | Outpatient (REF) | payer MEDICARE, MEDICAID, SELFPAY ==
[2022-09-24 11:43] LABS: HPV mRNA E6/E7 rflx Not Detected (Not Detected)
== END 2022-09-19 10:59 | disposition home or self-care (01) ==
LOC: HO.LNP 10:58
PROVIDERS: Visit Provider Advanced Practice Midwife
DX: Z01.419 Encounter for gynecological examination (general) (routine) without abnormal findings (principal); Z11.51 Encounter for screening for human papillomavirus (HPV)
CPT/HCPCS: 87624; 88142

== ENCOUNTER 2022-09-24 15:20 | Outpatient (REF) | payer MEDICARE, MEDICAID, SELFPAY ==
[2022-09-24 16:49] LABS: MANUAL DIFF FLAG NO
[2022-09-24 16:55] LABS: Basophils Percent Auto 0.4 % (0-2); Eosinophils Percent Auto 0.4 % (0-4); Hematocrit 42.1 % (37.0-47.0); Hemoglobin 13.8 g/dl (12.0-16.0); Imm Gran Abs Auto 0.02 X10*3/uL (0.00-0.03); Imm Gran Pct Auto 0.3 % (0.0-0.4); Lymphocytes Absolute Auto 2.1 X10*3/uL (1.2-4.9); Lymphocytes Percent Auto 27.5 % (20-40); Mean Corpuscular HGB Conc 32.8 g/dl (31.0-35.0); Mean Corpuscular Hemoglobin 31.2 pg (27.0-33.0); Mean Corpuscular Volume 95.2 fL (80.0-98.0); Mean Platelet Volume 10.7 fL (9.4-12.3); Monocytes Absolute Auto 0.5 X10*3/uL (0.1-1.2); Neutrophils Absolute Auto 4.9 x10*3/uL (2.0-8.3); Neutrophils Percent Auto 64.4 % (45-73); Platelet Count 202 X10*3/uL (160-400); Red Blood Count 4.42 X10*6/uL (4.20-5.50); Red Cell Distribution Width 14.4 % (11.0-16.0); White Blood Count 7.5 X10*3/uL (4.8-10.8)
== END 2022-09-24 15:21 | disposition home or self-care (01) ==
LOC: HO.HMGCLR 15:20
PROVIDERS: Visit Provider General Practice
DX: Z79.899 Other long term (current) drug therapy (principal)
CPT/HCPCS: 36415; 85025

== ENCOUNTER → 2022-10-16 08:54 | Outpatient (BNVA) | payer MEDICARE, MEDICAID, SELFPAY | PROVIDERS: PCP Internal Medicine; Visit Provider Surgery | DX: C50.911 Malignant neoplasm of unspecified site of right female breast (principal) | CPT/HCPCS: 99212 ==

== ENCOUNTER 2022-12-17 14:18 | Outpatient (REF) | payer MEDICARE, MEDICAID, SELFPAY ==
--- NOTE | ~2022-12-17 | MM_ITS ---
EXAMINATION: BONE DENSITOMETRY CLINICAL INDICATION: Pre-hormonal therapy evaluation. COMPARISON: None (current study represents initial baseline exam). TECHNIQUE: Using a [employer] DXA System (software version: 13.1) manufactured by [employer], dual-energy x-ray absorptiometry was performed of the lumbar spine and left hip. The images are of good technical quality. Summary results are attached. FINDINGS: AP SPINE L1-L4: BMD 1.210 g/cm2, Z-score -0.3, T-score 0.2, normal. LEFT FEMUR, NECK: BMD 1.011 g/cm2, Z-score -0.5, T-score -0.2, normal. LEFT FEMUR, TOTAL: BMD 1.046 g/cm2, Z-score -0.4, T-score 0.3, normal. IDENTIFIED RISK FACTORS: Low calcium intake, menopause. HISTORY OF FRACTURE: None listed. MEDICATIONS: Calcium supplements or multivitamin, vitamin D, aromatase inhibitors. MM/XR DEXA axial skeleton IMPRESSION: 1. DIAGNOSIS: Normal bone density based on the lowest T-score value of -0.2 in the femoral neck applying World Health Organization criteria. 2. 10-YEAR FRACTURE RISK PREDICTION, FRAX: According to the guidelines, FRAX calculation should only be performed on patients in the osteopenia bone density category. Therefore, FRAX was not performed on this patient. 3. Treatment Recommendations: NOF guidelines recommend consideration for treatment in postmenopausal women and men age 50 and older presenting with the following: -A hip or vertebral (clinical or morphometric) fracture. -T-score less than or equal to -2.5 at the femoral neck or spine after appropriate evaluation to exclude secondary causes. -Low bone mass at the hip or spine and a 10-year fracture probability by FRAX of greater than or equal to 3% for hip fracture or greater than or equal to 20% for major osteoporotic fracture based on the [place] adapted WHO algorithm. 4. Other Recommendations: All treatment decisions require clinical judgment and consideration of individual patient factors, including patient preferences, comorbidities, previous drug use, risk factors not captured in the FRAX model (e.g. frailty, falls, vitamin D deficiency, increased bone turnover, interval significant decline in bone density) and possible under or overestimation of fracture risk by FRAX. FUTURE SCAN RECOMMENDATION: People with diagnosed cases of osteoporosis or at high risk for fracture should have regular bone mineral density tests. For patients eligible for Medicare, routine testing is allowed once every 2 years. The testing frequency can be increased to one year for patients who have rapidly progressing disease, those who are receiving or discontinuing medical therapy to restore bone mass, or have additional risk factors.
== END 2022-12-17 14:19 | disposition home or self-care (01) ==
LOC: HO.MAMMO 14:18
PROVIDERS: PCP Internal Medicine; Visit Provider Internal Medicine
DX: Z13.820 Encounter for screening for osteoporosis (principal); M85.80 Other specified disorders of bone density and structure, unspecified site; C50.911 Malignant neoplasm of unspecified site of right female breast; Z78.0 Asymptomatic menopausal state
CPT/HCPCS: 77080

== ENCOUNTER 2023-01-01 09:03 | Outpatient (REF) | payer MEDICARE, MEDICAID, SELFPAY ==
[2023-01-01 09:17] LABS: MANUAL DIFF FLAG NO
[2023-01-01 09:42] LABS: Basophils Absolute Auto 0.1 X10*3/uL (0.0-0.2); Basophils Percent Auto 0.7 % (0-2); Eosinophils Absolute Auto 0.1 X10*3/uL (0.0-0.4); Eosinophils Percent Auto 0.7 % (0-4); Hematocrit 42.1 % (37.0-47.0); Hemoglobin 13.7 g/dl (12.0-16.0); Imm Gran Abs Auto 0.02 X10*3/uL (0.00-0.03); Imm Gran Pct Auto 0.3 % (0.0-0.4); Lymphocytes Absolute Auto 1.5 X10*3/uL (1.2-4.9); Lymphocytes Percent Auto 20.5 % (20-40); Mean Corpuscular HGB Conc 32.5 g/dl (31.0-35.0); Mean Corpuscular Hemoglobin 31.2 pg (27.0-33.0); Mean Corpuscular Volume 95.9 fL (80.0-98.0); Mean Platelet Volume 10.3 fL (9.4-12.3); Monocytes Absolute Auto 0.4 X10*3/uL (0.1-1.2); Monocytes Percent Auto 5.4 % (2-11); Neutrophils Absolute Auto 5.4 x10*3/uL (2.0-8.3); Neutrophils Percent Auto 72.4 % (45-73); Platelet Count 185 X10*3/uL (160-400); Red Blood Count 4.39 X10*6/uL (4.20-5.50); White Blood Count 7.4 X10*3/uL (4.8-10.8)
[2023-01-01 10:11] LABS: Estimated Average Glucose 117 mg/dL; Hemoglobin A1c % 5.7 %
[2023-01-01 10:20] LABS: Creatinine Urine 131.83 mg/dL; Microalbum/Creatinine Ratio Ur 5.3 ug/mg cr
[2023-01-01 10:26] LABS: Alanine Aminotransferase 14 U/L (0-31); Albumin Level 4.3 g/dL (3.5-5.0); Alkaline Phosphatase 100 U/L (39-117); Anion Gap 14 (12-20); Aspartate Amino Transferase 17 U/L (5-31); Bilirubin Total 0.7 mg/dL (0.0-1.0); Blood Urea Nitrogen 18 mg/dL (9-16); Calcium 9.3 mg/dL (8.4-10.2); Carbon Dioxide 21 mmol/L (22-29); Chloride 111 mmol/L (96-108); Cholesterol 160 mg/dL; Estimated Glomerular Filt Rate > 60; Glucose Random 111 mg/dL (60-115); HDL Cholesterol 67 mg/dL; LDL Cholesterol Calculated 79 mg/dl; Sodium 142 mmol/L (135-145); Total Protein 6.8 g/dL (6.5-8.0); Triglycerides 73 mg/dL
[2023-01-01 10:41] LABS: Folate 16.2 ng/mL (> or = 4.0); Free T4 (Free Thyroxine) 0.96 ng/dL (0.71-1.85); Thyroid Stimulating Hormone 1.18 uIU/mL (0.32-4.0); Vitamin B12 482 pg/mL (200-900)
== END 2023-01-01 09:04 | disposition home or self-care (01) ==
LOC: HO.LAB 09:03
PROVIDERS: PCP Internal Medicine; Visit Provider Internal Medicine
DX: E11.65 Type 2 diabetes mellitus with hyperglycemia (principal); E78.00 Pure hypercholesterolemia, unspecified; E55.9 Vitamin D deficiency, unspecified
CPT/HCPCS: 36415; 80053; 80061; 82043; 82306; 82607; 82746; 83036; 84439; 84443; 85025

== ENCOUNTER 2023-01-08 06:57 | Day surgery (SDC) | payer MEDICARE, MEDICAID, SELFPAY ==
[2023-01-06 09:20] VITALS: BMI 30.5
--- NOTE | 2023-01-07 10:56 | HO.ANESPROP2 ---
HPI - Anesthesia Eval Consult details Narrative: 52yo F for Colonoscopy PMFSH Active Problems Active Problems: All Active Problems (Updated 10/09/22 @ 15:17 by Liss Moctezuma MD) Finger pain, right (Acute) Invasive ductal carcinoma of right breast (Chronic) Cervical cancer screening (Acute) Colon cancer screening (Acute) Facial weakness (Acute) Encephalopathy (Acute) Hypovitaminosis (Acute) Microangiopathy (Acute) Dysuria (Acute) Adult general medical exam (Acute) Peripheral neuropathy (Acute) Schizoaffective disorder (Acute) Hearing loss (Acute) Obesity (Acute) Hypertension (Acute) Hypercholesterolemia (Acute) GERD (gastroesophageal reflux disease) (Acute) Type 2 diabetes mellitus with hyperglycemia (Acute) Past Medical History Medical History Arthritis Breast cancer COVID-19 virus infection Depression Facial paralysis GERD (gastroesophageal reflux disease) Hearing loss Hiatal hernia Hypercholesterolemia Hypertension Iron deficiency anemia Obesity Schizoaffective disorder Schizophrenia Tachycardia Type 2 diabetes mellitus with hyperglycemia Family History Family History Father Medical history unknown Mother Medical history unknown Family history of problems with anesthesia: Unobtainable Surgical History Surgical History Hemiparesis History of eye surgery History of lumpectomy of right breast History of placement of ear tubes History of removal of Port-a-Cath History of Problems with Anesthesia: No Social History Social History Household Members: Significant Other Housing: Condominium Are you a primary childcare aide to a significant other at home: No Do you presently have visiting nurse or other home services: Yes Alcohol intake: current Alcohol intake frequency: holidays/special occasions only Alcohol type: beer and wine Patient Tobacco Use Status: Never used Tobacco e-Cigarette/Vaping Use: Never Used Second Hand Smoke Exposure: No Are you DNR?: No Advance Directives: No Advance Directives Information Provided: Yes Advance Directives Date on File: 06/24/21 Nutrition Risks: No Nutritional Risk service: No Current occupational status: unemployed Sexual orientation: Lesbian/Reyes/Homosexual Cognitive needs: No Hearing needs: Yes (hearing aides) Vision needs: Yes (glasses) Meds Allergies Allergy/AdvReac Type Severity Reaction Status Date / Time lisinopril [LISINOPRIL] Allergy Unknown SWOLLEN Verified 01/08/23 07:55 LIPS, angioedema, swelling Home Medications Medication Instructions Recorded Confirmed Last Taken Type [place] 3 Fish Oil 06/17/22 10/16/22 Unknown History multivitamin 1 tab PO DAILY 06/17/22 12/01/22 Unknown History Exam Exam Date and Time: January 07, 2023 1056 Height,Weight and Vital Signs: Height 5 ft 2 in Weight 75.75 kg Pertinent Lab Results Pertinent Lab Results: Laboratory Tests 01/01/23 01/01/23 09:15 09:15 WBC 7.4 Hgb 13.7 Hct 42.1 Plt Count 185 Sodium 142 Potassium 4.0 Chloride 111 H Carbon Dioxide 21 L BUN 18 H Creatinine 0.81 Assessment and Plan Assessment Anesthesia Assessment: Chart Reviewed Final Anesthetic Review Family History of Problems with Anesthesia: Unobtainable History of Problems with Anesthesia: No
[2023-01-08 07:17] LABS: Glucose, Whole Blood 94 mg/dL (60-115)
[2023-01-08 07:31] VITALS: BP 137/85; PULSE 108; RESP 18; TEMP 36.6; O2SAT 100
[2023-01-08] MEDS: Lactated Ringers 1,000 ML 100 ML IVCONT (07:39)
--- NOTE | 2023-01-08 07:40 | MHC.SHP ---
Pre-Procedural Eval Section A Date of Service: 01/08/23 Section B Chief Complaint: screening Details of Present Illness: PMH: Arthritis Breast cancer COVID-19 virus infection Depression Facial paralysis GERD (gastroesophageal reflux disease) Hearing loss Hiatal hernia Hypercholesterolemia Hypertension Iron deficiency anemia Obesity Schizoaffective disorder Schizophrenia Tachycardia Type 2 diabetes mellitus with hyperglycemia Surgical History Hemiparesis History of eye surgery History of lumpectomy of right breast History of placement of ear tubes Relevant Family History (Specify if Yes): No Relevant Social History: None Allergies: Allergies Allergy/AdvReac Type Severity Reaction Status Date / Time lisinopril [LISINOPRIL] Allergy Unknown SWOLLEN Verified 10/16/22 09:07 LIPS, angioedema, swelling Review of Systems Review of Systems Comment: 10 point ROS negative Exam Exam Comment: Gen appear: No acute distress HEENT: no icterus Chest: No overt resp distress Abd: soft, nontender, nondistended Psych: Stable affect, answering questions appropriately Neuro: A/Ox3 noted to move all extremities spontaneously Ext: no peripheral edema Plan Diagnosis/Plan: Unchanged I have reviewed the history and physical and performed a pertinent physical examination on my patient. No changes have occurred unless specified. Time Spent With Patient Time: Total time managing care of this patient today ____ minutes.
--- NOTE | 2023-01-08 08:20 | PC.NURSE ---
author attempt one IV to left arm. Dr. Escamilla completed other attempts and insertion. IV to left thumb. Patient has right limb restrictions
--- NOTE | 2023-01-08 08:25 | P.OP_ITS ---
Operative Note Operative Note Date of Service: 01/08/23 Narrative: Procedure: Colonoscopy Indication: Screening Endoscopist: Leia Chance MD Anesthesia Provider: Dr Martha Vivar Anesthesia type: MAC Instrument: Olympus [id number]-H190L Consent: Indication, risks vs benefits, and alternatives were discussed with the patient who gave written informed consent to proceed. EKG, pulse, pulse oximetry and blood pressure were monitored throughout the procedure. Please see anesthesia flowsheet. Procedure: The patient was brought to the procedure room and placed in the left lateral decubitus position. IV medications were administered by the anesthesia provider in attendance. A digital rectal exam was performed which was normal. The colonoscope was then inserted through the anus and advanced through the colon to the cecum at 75 cm,and terminal ileum. Mucosa was carefully examined under high definition white light as the instrument was slowly withdrawn in a retrograde panoramic fashion. Retroflexion was performed in rectum. The procedure was not difficult. There were no immediate obvious complications. The quality of the prep was BBPS: 2+2+2 = adequate Withdrawal time 16 minutes. Limitations: No limitations. Findings: Mucosa: Normal to cecum and terminal ileum. Protruding lesions: * 1 sessile polyp of size 3 mm in cecum. Cold snare polypectomy was performed. The polyp was completely removed and retrieved. * Medium internal hemorrhoids without stigmata of recent bleeding. Impression: 1. Normal colon and terminal ileum mucosa 2. Total of 1 polyp removed from cecum 3. Internal hemorrhoids Recommendations: - Follow path results. - Repeat colonoscopy in 7-10 years if polyp is an adenoma.
[2023-01-08 09:15] VITALS: BP 102/66; PULSE 89; RESP 16; TEMP 36.2; O2SAT 100
[2023-01-08 09:30] VITALS: BP 136/83; PULSE 88; RESP 16; TEMP 36.7; O2SAT 99
== END 2023-01-08 09:45 | disposition home or self-care (01) ==
PROVIDERS: PCP Internal Medicine; Visit Provider Internal Medicine
PROC: 0DJD8ZZ Inspection of Lower Intestinal Tract, Via Natural or Artificial Opening Endoscopic (ICD-10-PCS; CPT 45378; principal; 2023-01-08 08:20)
DX: Z12.11 Encounter for screening for malignant neoplasm of colon (principal); D12.0 Benign neoplasm of cecum; K64.8 Other hemorrhoids; K21.9 Gastro-esophageal reflux disease without esophagitis; K59.00 Constipation, unspecified; C50.911 Malignant neoplasm of unspecified site of right female breast; Z92.21 Personal history of antineoplastic chemotherapy; Z92.3 Personal history of irradiation; I10 Essential (primary) hypertension; E78.00 Pure hypercholesterolemia, unspecified; D50.9 Iron deficiency anemia, unspecified; F25.9 Schizoaffective disorder, unspecified; E11.65 Type 2 diabetes mellitus with hyperglycemia; Z79.899 Other long term (current) drug therapy; Z88.8 Allergy status to other drugs, medicaments and biological substances
CPT/HCPCS: 45385; 82947; 88305

== ENCOUNTER 2023-01-18 11:29 | Emergency (ER) | payer MEDICARE, MEDICAID, SELFPAY ==
--- NOTE | ~2023-01-18 | US_ITS ---
EXAMINATION: US VENOUS WITH DOPPLER UPPER EXTREMITY, LEFT CLINICAL INFORMATION: Left upper extremity swelling COMPARISON: None available. TECHNIQUE: Ultrasound of the upper extremity is performed using compression sonography and color and pulse Doppler flow with assessment of augmentation of flow. There is also imaging and Doppler assessment of the jugular and subclavian veins. Spectral analysis with color-flow imaging is performed. FINDINGS: There is nonocclusive thrombus within the left mid subclavian vein. Respiratory variation, normal compression, and augmented flow are noted throughout the upper extremity including the axillary, brachial, cubital, and radial and ulnar veins. There is normal flow in the internal jugular veins. There is no visible deep or superficial thrombophlebitis. If the patient's symptoms progress, a followup ultrasound in 5 -7 days might be of value to exclude proximal propagation from a nonvisualized distal arm vein. There are prominent left cervical lymph nodes. US/US venous duplex UE LT IMPRESSION: Nonocclusive thrombus in the left mid subclavian vein. The remainder of the left upper extremity venous system is patent.
[2023-01-18 11:58] VITALS: BP 119/80; PULSE 102; RESP 16; TEMP 36.8; O2SAT 99; BMI 30.7
--- NOTE | 2023-01-18 12:00 | ED.EXTPRO ---
HPI - Extremity Problem General Chief complaint: Extremity Problem Stated complaint: left arm swelling Time Seen by Provider: 01/18/23 13:53 Source: patient and family Mode of arrival: ambulatory Limitations: no limitations History of Present Illness HPI Narrative: 52-year-old female came in for evaluation of left upper extremity swelling the patient noticed today while she was taking a shower, patient had a recent colonoscopy had an IV access in the left upper extremity about week ago, patient with history of right breast cancer, not in any blood thinner medication, recent blood workup was unremarkable. Related Data Home Medications Medication Instructions Recorded Confirmed [place] 3 Fish Oil 06/17/22 01/14/23 multivitamin 1 tab PO DAILY 06/17/22 01/14/23 leuprolide (3 month) 22.5 mg (3 22.5 mg IM [id number] 01/14/23 01/14/23 month) intramuscular syringe kit (Lupron Depot) Previous Rx's Medication Instructions Recorded blood-glucose meter (TargazymeStyle #1 ea 09/12/21 Lite Meter kit) clozapine 100 mg tablet 150 mg PO BID #90 tabs 12/19/21 lorazepam 1 mg tablet 1 mg PO BID #60 tabs 12/19/21 lurasidone 80 mg tablet (Latuda) 80 mg PO 1800 #30 tabs 12/19/21 ferrous sulfate 324 mg (65 mg 324 mg PO DAILY #90 tabs 01/16/22 iron) tablet,delayed release lancets 28 gauge (FreeStyle #2 boxes 04/03/22 Lancets) docusate sodium 100 mg capsule 100 mg PO BEDTIME #90 caps 04/08/22 metformin 1,000 mg tablet 1,000 mg PO BID 90 days #180 tabs 08/07/22 omeprazole 20 mg capsule,delayed 20 mg PO DAILY #90 caps 08/07/22 release pregabalin 50 mg capsule (Lyrica) 50 mg PO BID #60 caps 10/09/22 blood sugar diagnostic (FreeStyle #100 ea 10/16/22 Lite Strips) tamoxifen 20 mg tablet 20 mg PO DAILY #60 tabs 11/05/22 losartan 25 mg tablet 25 mg PO DAILY 90 days #90 tabs 12/25/22 cholecalciferol (vitamin D3) 10 10 mcg PO DAILY #90 tabs 01/13/23 mcg (400 unit) tablet (Vitamin D3) simvastatin 5 mg tablet 5 mg PO BEDTIME #30 tabs 01/13/23 empagliflozin 10 mg tablet 10 mg PO DAILY 90 days #90 tabs 01/14/23 (Jardiance) apixaban 5 mg (74 tabs) tablets in 5 mg PO BID #74 ea 01/18/23 a dose pack (Eliquis DVT-PE Treat 30D Start) Allergies Allergy/AdvReac Type Severity Reaction Status Date / Time lisinopril [LISINOPRIL] Allergy Unknown SWOLLEN Verified 01/14/23 10:36 LIPS, angioedema, swelling Review of Systems Review of Systems: All other systems are reviewed and are negative Constitutional: Reports as per HPI and Reports no additional constitutional complaints Eyes: Reports as per HPI and Reports no additional eye complaints Reports system reviewed and no additional complaints, except as documented Cardiovascular: Reports as per HPI and Reports no additional cardiovascular complaints Respiratory: Reports as per HPI and Reports no additional respiratory complaints Gastrointestinal: Reports as per HPI and Reports no additional gastrointestinal complaints Genitourinary: Reports no additional female genitourinary complaints Musculoskeletal: Reports no additional musculoskeletal complaints Skin/Breast: Reports system reviewed and no additional complaints, except as docu Psychiatric: Reports no additional psychiatric complaints Endocrine: Reports no additional endocrine complaints Hematologic/Lymphatic: Reports no additional hematologic/lymphatic complaints Allergic/Immunologic: Reports no additional allergic/immunologic complaints Reports system reviewed and no additional complaints, except as documented and Reports Abnormal speech present [facility] Past Medical History Medical History Arthritis Breast cancer Colon cancer screening COVID-19 virus infection Depression Facial paralysis GERD (gastroesophageal reflux disease) Hearing loss Hiatal hernia Hypercholesterolemia Hypertension Iron deficiency anemia Obesity Schizoaffective disorder Schizophrenia Tachycardia Type 2 diabetes mellitus with hyperglycemia Surgical History Hemiparesis History of eye surgery History of lumpectomy of right breast History of placement of ear tubes History of removal of Port-a-Cath Family History Family History Father Medical history unknown Mother Medical history unknown Social History Social History Household Members: Significant Other Housing: Condominium Are you a primary health careers instructor to a significant other at home: No Do you presently have visiting nurse or other home services: Yes Alcohol intake: current Alcohol intake frequency: holidays/special occasions only Alcohol type: beer and wine Patient Tobacco Use Status: Never used Tobacco e-Cigarette/Vaping Use: Never Used Second Hand Smoke Exposure: No Advance Directives: Yes Advance Directives Information Provided: Yes Advance Directives on File: No Advance Directives Date on File: 06/24/21 service: No Current occupational status: unemployed Sexual orientation: Lesbian/Reyes/Homosexual Cognitive needs: No Hearing needs: Yes (hearing aides) Vision needs: Yes (glasses) Physical Exam Vital Signs: Vital Signs: Last Vital Signs Temp 98.3 F 01/18/23 11:58 Pulse 102 H 01/18/23 11:58 Resp 16 01/18/23 11:58 BP 119/80 01/18/23 11:58 Pulse Ox 99 01/18/23 11:58 O2 Del Method Room Air 01/18/23 11:58 BMI result Body Mass Index 30.7 Vital signs have been reviewed as appeared to be correct. Blood pressure normal. Heart rate normal. Respiration rate normal. Temperature normal. Oxygen saturation normal. Appearance: Alert. Oriented X3. No acute distress. Head: Normal external exam. Normocephalic. Atraumatic. No [place] signs noted. No raccoon eyes noted Eyes: PERRLA. EOMI. Conjunctiva and sclera normal. Eyelids normal. ENT: TM's Normal. Pharynx normal. Uvula midline. Moist mucous membranes. No trismus noted. No drooling noted. No muffled voice noted. Neck: Normal inspection. Neck supple. FROM. No adenopathy. Thyroid Normal. No meningeal signs. No neck mass noted. CVS: Normal heart rate and rhythm. Heart sound normal. No murmurs noted. Pulses normal throughout. Respiratory: No respiratory distress. Painless inspiration. Breath sounds normal. No wheezes/rales/rhonchi noted. Chest nontender. No accessory muscle usage noted or decreased air movement noted. Abdomen: Soft and nontender. Bowel sounds normal in all 4 quadrants. No distention noted. No organomegaly noted. No visible injury noted. Back: No CVA tenderness. Full range of motion noted. Skin: Skin warm and dry. Normal skin color. Normal skin turgor. No rashes/lesions/lacerations noted. Extremities: Left upper extremity swelling, no tenderness, no redness. Neuro: Oriented X 3. Cranial nerve exam: II-XII are grossly intact No motor deficit. No sensory deficit. Reflexes normal. Course Course Course Narrative: This is an RME: Additional HPI, ROS, PE not included below will be deferred to primary provider. Patient is a 52-year-old female presents emergency department for evaluation of left arm swelling. Hx breast CA 05/2021 underwent chemo, radiation, lumpectomy, followed by Dr. Mora, on Tamoxifen. Presented to urgent care earlier today for evaluation of left upper extremity swelling, and was advised to come to the emergency department. First noted this this morning when she got into the shower. Has pain localized to antecubital region, tenderness to palpation of the upper arm. She does report that 10 days ago she had a colonoscopy done, for which she had a peripheral catheter to the left hand/thumb. Reevaluation(s) Reevaluation #1: Left upper extremities DVT will start the patient on Eliquis. Recent blood workup was done 2 weeks ago was unremarkable Time: 14:14 Medical Decision Making Differential Diagnosis Differential Diagnoses: The differential diagnosis associated with the presentation includes (Left upper extremity cellulitis, DVT.) Admission/Observation Consideration of admission/observation: Escalation of care including admission/observation considered Lab Data MDM Lab Attestation statement: I reviewed the patient's lab results. Discharge Plan Discharge Clinical Impression: Acute deep vein thrombosis (DVT) of left upper extremity Patient Disposition: Home, Self-Care Instructions: Apixaban (By mouth), Deep Vein Thrombosis (ED) Prescriptions: New Eliquis DVT-PE Treat 30D Start 5 mg (74 tabs) tablets,dose pack 5 mg PO BID Qty: 74 0RF No Action (DME) blood-glucose meter [FreeStyle Lite Meter] Kit See Rx Instructions .ROUTE .MEDSUPPLY Qty: 1 0RF Rx Instructions: As directed ferrous sulfate 324 mg (65 mg iron) tablet,delayed release (DR/EC) 324 mg PO DAILY Qty: 90 3RF (DME) lancets [FreeStyle Lancets] 28 gauge misc See Rx Instructions .ROUTE .MEDSUPPLY Qty: 2 3RF Rx Instructions: Twice a day docusate sodium 100 mg capsule 100 mg PO BEDTIME Qty: 90 3RF omeprazole 20 mg capsule,delayed release(DR/EC) 20 mg PO DAILY Qty: 90 2RF metformin 1,000 mg tablet 1,000 mg PO BID 90 Days Qty: 180 3RF (DME) FreeStyle Lite Strips Strip See Rx Instructions .ROUTE .MEDSUPPLY Qty: 100 3RF Rx Instructions: As directed check the BS twice daily losartan 25 mg tablet 25 mg PO DAILY 90 Days Qty: 90 1RF cholecalciferol (vitamin D3) [Vitamin D3] 10 mcg (400 unit) tablet 10 mcg PO DAILY Qty: 90 3RF simvastatin 5 mg tablet 5 mg PO BEDTIME Qty: 30 0RF tamoxifen 20 mg Tablet 20 mg PO DAILY Qty: 60 3RF multivitamin Tablet 1 tab PO DAILY [place] 3 Fish Oil clozapine 100 mg Tablet 150 mg PO BID Qty: 90 0RF lorazepam 1 mg Tablet 1 mg PO BID Qty: 60 0RF lurasidone [Latuda] 80 mg Tablet 80 mg PO 1800 Qty: 30 0RF Tenivac (PF) 5 Lf unit- 2 Lf unit/0.5mL suspension 0.5 ml IM ONCE Qty: 0.5 0RF Lupron Depot (3 month) 22.5 mg syringe kit 22.5 mg IM [id number] Jardiance 10 mg tablet 10 mg PO DAILY 90 Days Qty: 90 1RF pregabalin [Lyrica] 50 mg capsule 50 mg PO BID Qty: 60 3RF Referrals: Po,Liss Felix MD [Primary Care Provider] -
[2023-01-18 14:17] VITALS: BP 121/89; PULSE 83; RESP 16; TEMP 36.5; O2SAT 98
== END 2023-01-18 14:37 | disposition home or self-care (01) ==
PROVIDERS: Emergency Provider Emergency Medicine; PCP Internal Medicine
DX: I82.622 Acute embolism and thrombosis of deep veins of left upper extremity (principal); R60.0 Localized edema; Z79.899 Other long term (current) drug therapy
CPT/HCPCS: 93971; 99284

== ENCOUNTER 2023-03-19 12:48 | Outpatient (AMB) | payer MEDICARE, MEDICAID, SELFPAY ==
[2023-03-19 12:53] VITALS: BP 120/78; PULSE 106; O2SAT 96; BMI 32.2
--- NOTE | 2023-03-19 12:53 | MHC.OFFVIS ---
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: No Accompanied by: Life Partner Allergies lisinopril [LISINOPRIL] Allergy (Unknown, Verified 03/19/23 12:58) SWOLLEN LIPS, angioedema, swelling PFSH Medical History Arthritis Breast cancer Colon cancer screening COVID-19 virus infection Depression Facial paralysis GERD (gastroesophageal reflux disease) Hearing loss Hiatal hernia Hypercholesterolemia Hypertension Iron deficiency anemia Obesity Schizoaffective disorder Schizophrenia Tachycardia Type 2 diabetes mellitus with hyperglycemia Surgical History Hemiparesis History of eye surgery History of lumpectomy of right breast History of placement of ear tubes History of removal of Port-a-Cath Family History Father Medical history unknown Mother Medical history unknown Social History (Updated 03/19/23 @ 13:06 by Amelia Cook CMA) Household Members: Significant Other Housing: Condominium Are you a primary child care lead teacher to a significant other at home: No Do you presently have visiting nurse or other home services: Yes Alcohol intake: current Alcohol intake frequency: does not drink Alcohol type: beer and wine Patient Tobacco Use Status: Never used Tobacco e-Cigarette/Vaping Use: Never Used Second Hand Smoke Exposure: No Use of substances other than those prescribed or required for medical reasons: No Advance Directives Date on File: 06/24/21 service: No Current occupational status: unemployed Sexual orientation: Lesbian/Reyes/Homosexual Cognitive needs: No Hearing needs: Yes (hearing aides) Vision needs: Yes (glasses) Female Reproductive History Menstrual Age of Menarche: 13 Physical Exam Vital Signs: Last Vital Signs Pulse 106 H 03/19/23 12:53 BP 120/78 03/19/23 12:53 Pulse Ox 96 03/19/23 12:53 Oxygen Delivery Method Room Air 03/19/23 12:53 BMI result Body Mass Index 32.2 Assessment & Plan Assessment & Plan Medications: Discontinued rivaroxaban take one-15 mg tablet twice daily for 21 days, then one-20 mg tablet once daily; must take with meal/food 51 ea 0RF Coding Diagnoses
--- NOTE | 2023-03-19 13:14 | A.OFFVIS_ITS ---
Intake Vital Signs 03/19/23 12:53 03/19/23 13:23 Height 5 ft 2 in Weight 176 lb 2 oz BMI 32.2 32.2 BP 120/78 Blood Pressure Location Lt brachial Position Sitting Pulse 106 H Pulse Source Pulse Oximeter Pulse Oximetry (%) 96 Oxygen Delivery Method Room Air Intake Visit Reasons: INP-Facial weakness/Polyneuropathy-Confirmed Allergies lisinopril [LISINOPRIL] Allergy (Unknown, Verified 03/19/23 12:58) SWOLLEN LIPS, angioedema, swelling Medication List - Last Reconciled 03/19/23 by Sara Moon MD alpha lipoic acid 600 mg PO DAILY blood sugar diagnostic (FreeStyle Lite Strips) As directed check the BS twice daily blood-glucose meter (FreeStyle Lite Meter kit) As directed cholecalciferol (vitamin D3) (Vitamin D3) 10 mcg PO DAILY clozapine 150 mg (1.5 x 100 mg) PO BID docusate sodium 100 mg PO BEDTIME empagliflozin (Jardiance) 10 mg PO DAILY 90 days lancets (FreeStyle Lancets) Twice a day letrozole 2.5 mg PO DAILY leuprolide (3 month) (Lupron Depot) 22.5 mg IM [id number] lorazepam 1 mg PO BID losartan 25 mg PO DAILY 90 days lurasidone (Latuda) 80 mg PO 1800 metformin 1,000 mg PO BID 90 days multivitamin 1 tab PO DAILY [[place] 3 Fish Oil PO DAILY] omeprazole 20 mg PO DAILY pregabalin (Lyrica) 50 mg PO BID rivaroxaban (Xarelto) 20 mg PO BID simvastatin 5 mg PO BEDTIME HPI HPI Comments History of Present Illness Details 52y/o female comes for evaluation of peripheral neuropathy. She has left hemiparesis with facial weakness since childhood- no further history available. she has h/o diabetes X20 years, last HgA!C 5.7, breast cancer May 2021 treated chemo and radiation.she started noticing numbness , tingling in bilateral feet L>R during chemo and radiation. she also has some tingling in her fingers. These symptoms are episodic and feels it more when she is sitting in her chair.she is not sure if any movement makes it worse or better.she is also has some gait and balance issues. she denies back pain or neck pain. she also reports increased weakness in her left LE. PFSH Medical History (Updated 03/19/23 @ 13:36 by Sara Moon MD) Arthritis Breast cancer Colon cancer screening COVID-19 virus infection Depression Facial paralysis GERD (gastroesophageal reflux disease) Hearing loss Hiatal hernia Hypercholesterolemia Hypertension Iron deficiency anemia Left leg paresthesias Obesity Schizoaffective disorder Schizophrenia Tachycardia Type 2 diabetes mellitus with hyperglycemia Surgical History Hemiparesis History of eye surgery History of lumpectomy of right breast History of placement of ear tubes History of removal of Port-a-Cath Family History Father Medical history unknown Mother Medical history unknown Social History Household Members: Significant Other [facility] Are you a primary transitions rn care coordinator to a significant other at home: No Do you presently have visiting nurse or other home services: Yes Alcohol intake: current Alcohol intake frequency: does not drink Alcohol type: beer and wine Patient Tobacco Use Status: Never used Tobacco e-Cigarette/Vaping Use: Never Used Second Hand Smoke Exposure: No Advance Directives Date on File: 06/24/21 service: No Current occupational status: unemployed Sexual orientation: Lesbian/Reyes/Homosexual Cognitive needs: No Hearing needs: Yes (hearing aides) Vision needs: Yes (glasses) Female Reproductive History Menstrual Age of Menarche: 13 Review of Systems Const Denies chills, Denies fever(s), Denies headache(s) and Denies poor appetite ENT Reports Normal hearing present, Denies dizziness and Denies headache(s) Card Denies chest pain, Denies rapid heart rate, Denies palpitations and Denies slow heart rate Resp Denies chest congestion, Denies cough, Denies pain on inspiration and Denies wheezing GI Denies abdominal pain, Denies bloating, Denies change in stool character, Denies constipation, Denies diarrhea, Denies nausea, Denies vomiting and Denies hematemesis Musc Denies back pain, Denies arthralgias, Denies joint swelling and Denies numbness Skin/Breast Denies change in pigmentation, Denies erythema and Denies rash Neuro Details: Left facial paralysis Reports Normal hearing present, Denies dizziness, Denies headache(s) and Denies numbness Psych Denies anxiety and Denies depression Endo Details: Diabetes type 2 Denies palpitations Yan/Lymph Denies easy bleeding, Denies easy bruising and Denies lymphadenopathy Aller/Immun Denies wheezing Physical Exam Vital Signs: Last Vital Signs Pulse 106 H 03/19/23 12:53 BP 120/78 03/19/23 12:53 Pulse Ox 96 03/19/23 12:53 Oxygen Delivery Method Room Air 03/19/23 12:53 BMI result Body Mass Index 32.2 Const General: cooperative, comfortable and no acute distress Nutritional Appearance: overweight Orientation/consciousness: patient oriented x3 Neuro Other: left foot - weakness of dorsiflexion , decreased range of motion in the left ankle .Normal sensation Left dense weakness General: patient oriented x3 and moves all extremities Cranial nerves: Yes Nystagmus not present, Yes Midline tongue present, Yes Normal hearing present and Yes Ability to bilaterally elevate shoulders present Cognition (Neuro): normal cognition Gait exam (Neuro): Steppage gait present Motor exam (neuro): Normal motor muscle tone present throughout Deep tendon reflexes (DTR's): Right triceps reflex intensity grade: 0, Left triceps reflex intensity grade: 0, Rt Biceps (C5, C6): 0, Left biceps reflex intensity grade: 0, Right brachioradialis reflex intensity grade: 0, Left brachioradialis reflex intensity grade: 0, Right patellar reflex intensity grade: 0 and Left patellar reflex intensity grade: 0 Coordination: [id number] test normal Assessment & Plan Assessment & Plan (1) Left leg paresthesias: Comment: likely peripheral neuropathy ? diabetic worsened by Chemo Code(s): R20.2 - Paresthesia of skin Plan EMG report for review I will trial her on alpha lipoic acid 600mg qd . Medications: New alpha lipoic acid 600 mg PO DAILY 30 caps 6RF Changed From rivaroxaban (Xarelto) must administer with evening meal 20 mg PO DAILY 30 tabs 2RF To rivaroxaban (Xarelto) must administer with evening meal 20 mg PO BID Discontinued rivaroxaban take one-15 mg tablet twice daily for 21 days, then one-20 mg tablet once daily; must take with meal/food 51 ea 0RF Quality Reporting (2019) Adult ([facility] 138/2/69) Body Mass Index: 32.2 Coding Level of Care Code New Pt Level 4 (54783) Diagnoses Left leg paresthesias R20.2
[2023-03-19 13:23] VITALS: BMI 32.2
== END 2023-03-19 13:34 | disposition home or self-care (01) ==
PROVIDERS: PCP Internal Medicine; Visit Provider Psychiatry & Neurology Neurology
DX: R20.2 Paresthesia of skin (principal)
CPT/HCPCS: 99204

== ENCOUNTER → 2023-03-19 12:48 | Outpatient (BNVA) | payer MEDICARE, MEDICAID, SELFPAY | PROVIDERS: PCP Internal Medicine; Visit Provider Psychiatry & Neurology Neurology | DX: R20.2 Paresthesia of skin (principal) | CPT/HCPCS: 99202 ==

== ENCOUNTER 2023-04-09 08:56 | Outpatient (AMB) | payer MEDICARE, MEDICAID, SELFPAY ==
--- NOTE | 2023-04-09 08:57 | A.OFFVIS_ITS ---
Intake Vital Signs 3 04/09/23 09:03 Height 5 ft 2 in Weight 172 lb 8 oz BMI 31.5 BP 119/78 Blood Pressure Location Lt brachial Position Sitting Pulse 96 Intake Visit Reasons: 6 mth breast exam Intake Note: Patient is seen in office for 6 month follow up visit, breast exam. Patient c/o: denies any concerns regarding the breast, has an upcoming mammogram scheduled for 05/07/23 Geophysical Manager Required: No Accompanied by: Self / Same As Patient Allergies lisinopril [LISINOPRIL] Allergy (Unknown, Verified 04/09/23 09:03) SWOLLEN LIPS, angioedema, swelling HPI HPI Comments 2 History of Present Illness0 Details 52-year-old female returning for a [facility] cancer follow-up examination. She underwent ultrasound-guided core biopsy on 05/28/2021 for suspicious right breast density in the 10 o'clock position andwas found to have an infiltrating ductal carcinoma. She subsequently underwent a right breast lumpectomy with needle localization, sentinel node biopsy on 06/24/2021 pathology confirmed an infiltrating ductal carcinoma of the right breast, grade 1, 1.3 cm in diameter, ER/WA positive, HER2 Glendy negative, 1 of 4 nodes positive for metastatic disease; AJCC Stage (8th ed.):? pT1c N1a(sn)(i+). She was evaluated by Dr. Mora on 07/03/2021. Genomic testing with MammaPrint was performed and she was determined to have an absolute chemotherapy benefit greater than 12%. Five year metastasis free survival with chemo hormonal therapy is 96%. The decision was made to proceed with chemotherapy with dose dense AC followed by Taxol. This was followed by radiation therapy performed at [facility] completed on 03/18/2022. She is on tamoxifen and tolerating this well without side effects. Annual mammogram obtained on 05/07/2022 revealed no mammographic evidence of malignancy (BI-RADS 2). She feels well and denies any ongoing breast symptoms. [facility] Medical History (Updated 03/19/23 @ 13:36 by Sara Moon MD) Left leg paresthesias COVID-19 virus infection Schizoaffective disorder Colon cancer screening Breast cancer Arthritis Depression Tachycardia Hiatal hernia Hearing loss Facial paralysis Schizophrenia Obesity Iron deficiency anemia Hypertension Hypercholesterolemia GERD (gastroesophageal reflux disease) Type 2 diabetes mellitus with hyperglycemia Surgical History History of removal of Port-a-Cath History of lumpectomy of right breast Hemiparesis History of eye surgery History of placement of ear tubes Family History Father Medical history unknown Mother Medical history unknown Social History Household Members: Significant Other [facility] Are you a primary health care sanitary technician to a significant other at home: No Do you presently have visiting nurse or other home services: Yes Alcohol intake: current Alcohol intake frequency: does not drink Alcohol type: beer and wine Patient Tobacco Use Status: Never used Tobacco e-Cigarette/Vaping Use: Never Used Second Hand Smoke Exposure: No Advance Directives Date on File: 06/24/21 service: No Current occupational status: unemployed Sexual orientation: Lesbian/Reyes/Homosexual Cognitive needs: No Hearing needs: Yes (hearing aides) Vision needs: Yes (glasses) Female Reproductive History Menstrual Age of Menarche: 13 Review of Systems Const Denies chills, Denies fever(s), Denies headache(s) and Denies poor appetite ENT Denies dizziness and Denies headache(s) Card Denies chest pain, Denies rapid heart rate, Denies palpitations and Denies slow heart rate Resp Denies chest congestion, Denies cough, Denies pain on inspiration and Denies wheezing GI Denies abdominal pain, Denies bloating, Denies change in stool character, Denies constipation, Denies diarrhea, Denies nausea, Denies vomiting and Denies hematemesis Musc Denies back pain, Denies arthralgias, Denies joint swelling and Denies numbness Skin/Breast Denies change in pigmentation, Denies erythema and Denies rash Neuro Details: Left facial paralysis Denies dizziness, Denies headache(s) and Denies numbness Psych Denies anxiety and Denies depression Endo Details: Diabetes type 2 Denies palpitations Yan/Lymph Denies easy bleeding, Denies easy bruising and Denies lymphadenopathy Aller/Immun Denies wheezing Physical Exam Vital Signs: Last Vital Signs Pulse 96 04/09/23 09:03 BP 119/78 04/09/23 09:03 BMI result Body Mass Index 31.5 Const General: no acute distress and well developed Nutritional Appearance: well nourished Orientation/consciousness: patient oriented x3 Limitations: no limitations Chest Other: Right breast incision is clean, dry, and intact without redness or discharge. Post radiation change noted in the skin with no open wounds. Axillary incision is also clean and intact. No palpable mass, nipple discharge, or enlarged lymph nodes. Left breast reveals no skin change, nipple retraction, nipple discharge, palpable mass, or enlarged lymph node. Chest/axillae images: 2 1. 2. Resp Effort & Inspection: normal respiratory effort, no audible wheezes, no cough and no respiratory distress Skin Other: Warm and dry, no rash Neuro General: patient oriented x3 Extrem Other: No edema Assessment & Plan Assessment & Plan (1) Invasive ductal carcinoma of right breast: Comment: Lumpectomy May 2021 Code(s): C50.911 - Malignant neoplasm of unspecified site of right female breast Plan Patient returns for follow-up breast examination after right breast lumpectomy with needle localization, right axillary sentinel node biopsy for infiltrating ductal carcinoma. She completed chemo and radiation therapy. Wounds are clean and intact with no evidence of tumor recurrence. Left breast is normal as well. She underwent her annual mammogram on 05/07/2022 which revealed no mammographic evidence of malignancy (BI-RADS 2). She will be due for an annual mammogram on 05/07/2023. I recommended follow-up in 6 months, sooner p.r.n.. Coding Level of Care Code Est Pt Level 3 (33845) Diagnoses Invasive ductal carcinoma of right breast C50.911
[2023-04-09 09:03] VITALS: BP 119/78; PULSE 96; BMI 31.5
== END 2023-04-09 09:16 | disposition home or self-care (01) ==
PROVIDERS: PCP Internal Medicine; Visit Provider Surgery
DX: C50.911 Malignant neoplasm of unspecified site of right female breast (principal)
CPT/HCPCS: 99213

== ENCOUNTER → 2023-04-09 08:56 | Outpatient (BNVA) | payer MEDICARE, MEDICAID, SELFPAY | PROVIDERS: PCP Internal Medicine; Visit Provider Surgery | DX: Z85.3 Personal history of malignant neoplasm of breast (principal); Z92.21 Personal history of antineoplastic chemotherapy; Z92.3 Personal history of irradiation | CPT/HCPCS: 99212 ==

== ENCOUNTER 2023-04-27 11:35 | Outpatient (AMB) | payer MEDICARE, MEDICAID, SELFPAY ==
--- NOTE | 2023-04-27 11:37 | A.OFFPC_ITS ---
Vital Signs 04/27/23 11:38 Height 5 ft 2 in Weight 176 lb BMI 32.2 BP 126/82 Blood Pressure Location Lt brachial Position Sitting Pulse 102 H Pulse Source Pulse Oximeter Temp Source Skin Pulse Oximetry (%) 96 Oxygen Delivery Method Room Air Intake Visit Reasons: DM Acid Remover Required: No Allergies lisinopril [LISINOPRIL] Allergy (Unknown, Verified 04/27/23 11:38) SWOLLEN LIPS, angioedema, swelling Tobacco use date assessed: 04/27/23 Dental Screening Dental Screen Date: 04/27/23 Did you have a dental visit in the last 12 months?: Yes Did you have a dental problem in the last 6 months where you did not have access to dental care?: No Was dental information given to patient?: Patient has dentist HPI DM HPI Details 52-year-old obese female with diabetes m ellitus hypertension hypercholesterolemia schizoaffective disorder, breast cancer right (April 2021) coming in for follow-up. Last seen in December 2022. Patient follows up with surgeon who did right breast lumpectomy with right axillary lymph node biopsies. Patient has finished chemotherapy and radiation. Patient has seen neurology for left leg and facial paresthesias tried on alpha lipoic acid 600 mg once a day. Neuropathy secondary to chemotherapy placed on Lyrica 50 mg twice a day, left upper extremity DVT related to line placement and being on tamoxifen advise bowling anticoagulation for 3 months. had dvt L arm and on xarelto - ending this month. [facility] Medical History (Updated 03/19/23 @ 13:36 by Sara Moon MD) Left leg paresthesias COVID-19 virus infection Schizoaffective disorder Colon cancer screening Breast cancer Arthritis Depression Tachycardia Hiatal hernia Hearing loss Facial paralysis Schizophrenia Obesity Iron deficiency anemia Hypertension Hypercholesterolemia GERD (gastroesophageal reflux disease) Type 2 diabetes mellitus with hyperglycemia Surgical History History of removal of Port-a-Cath History of lumpectomy of right breast Hemiparesis History of eye surgery History of placement of ear tubes Family History Father Medical history unknown Mother Medical history unknown Social History Household Members: Significant Other Housing: Condominium Are you a primary field care coordinator to a significant other at home: No Do you presently have visiting nurse or other home services: Yes Alcohol intake: current Alcohol intake frequency: does not drink Alcohol type: beer and wine Patient Tobacco Use Status: Never used Tobacco e-Cigarette/Vaping Use: Never Used Second Hand Smoke Exposure: No Advance Directives Date on File: 06/24/21 service: No Current occupational status: unemployed Sexual orientation: Lesbian/Reyes/Homosexual Cognitive needs: No Hearing needs: Yes (hearing aides) Vision needs: Yes (glasses) Female Reproductive History Menstrual Age of Menarche: 13 Questionnaire Thrive Questionnaire Date Thrive assessed: 10/09/22 AUDIT C Alcohol Use Questionnaire (AUDIT-C) 1. How often do you have a drink containing alcohol?: Monthly or less 2. How many drinks containing alcohol do you have on a typical day when you are drinking?: 1 or 2 Total Score: 1 Score Reviewed/Action Taken: No SPEEDY-7 AMB Questionnaire SPEEDY-7 Date SPEEDY - 7 assessed: 10/09/22 Source: Developed by Drs. Baldev Floyd, Елена Wolff, Sina Reyes and colleagues, with an educational patti from [employer]. Physical exam (Primary Care) Vital Signs: Last Vital Signs Pulse 102 H 04/27/23 11:38 BP 126/82 04/27/23 11:38 Pulse Ox 96 04/27/23 11:38 Oxygen Delivery Method Room Air 04/27/23 11:38 BMI result Body Mass Index 32.2 Tobacco/Smoking Status: Tobacco use Status Tobacco use date assessed 04/27/23 04/27/23 11:38 Patient Tobacco Use Status Never used Tobacco 04/27/23 11:38 e-Cigarette/Vaping Use Never Used 04/27/23 11:38 Thrive Assessment: Date of Thrive Assessment Date Thrive assessed 10/09/22 04/27/23 11:38 Const General: alert; No acute distress Eyes Conjunctivae: conjunctivae normal Resp Auscultation: clear to auscultation bilaterally Cardio Rate: regular rate Rhythm: regular rhythm GI Inspection: Yes normal to inspection Extrem General: Yes normal to inspection and No edema Results AMB Hemoglobin A1c AMB Hemoglobin A1c 6.1 % Last Edit by JUDY Morris on 04/27/23 11:51 Results Reviewed Results Reviewed: Laboratory Last Values Hgb A1c (Clinic) 6.1 % (4.0-6.0) H 04/27/23 11:24 Assessment and Plan Assessment & Plan (1) Invasive ductal carcinoma of right breast: Comment: Lumpectomy May 2021 Code(s): C50.911 - Malignant neoplasm of unspecified site of right female breast Plan: Patient follows up with hematology oncology and the surgeon had radiation and chemotherapy (2) Peripheral neuropathy: Code(s): G62.9 - Polyneuropathy, unspecified Plan: Secondary to medications placed on Lyrica (3) Schizoaffective disorder: Comment: [facility]EN[facility] to CHD (09/2022) Code(s): F25.9 - Schizoaffective disorder, unspecified Plan: Continue to follow-up with counseling and therapy (4) Obesity: Comment: Pt also has T2DM Code(s): E66.9 - Obesity, unspecified Qualifiers: Obesity type: due to excess calories Obesity classification: adult class 2 (BMI 35 - 39.9) Serious obesity comorbidity presence: with serious comorbidity Body mass index: BMI 38.0-38.9 Qualified Code(s): E66.01 - Morbid (severe) obesity due to excess calories; Z68.38 - Body mass index [BMI] 38.0- 38.9, adult Plan: Diet and exercise (5) Hypertension: Code(s): I10 - Essential (primary) hypertension Qualifiers: Hypertension type: essential hypertension Qualified Code(s): I10 - Essential (primary) hypertension Plan: Continue with blood pressure medication. Decrease salt intake and exercise patient has losartan 25 mg once a day (6) Hypercholesterolemia: Code(s): E78.00 - Pure hypercholesterolemia, unspecified Plan: Avoid fried foods, chicken skin, eggs, butter margarine, pastries and meat. Be it pork or beef they have a lot of cholesterol LDL goal of less than 100 and triglyceride of less than 150 patient on simvastatin 5 mg once a day (7) GERD (gastroesophageal reflux disease): Code(s): K21.9 - Gastro-esophageal reflux disease without esophagitis Qualifiers: Esophagitis presence: without esophagitis Qualified Code(s): K21.9 - Gastro-esophageal reflux disease without esophagitis Plan: Avoid the foods that causes that usually spicy foods, tomato products, juices, coffee, soda and foods that your sensitive to. After eating do not lie down, allow 3-4 hours before in lie down. And keep the head of bed above 30 degrees to avoid the acid from going up. (8) Type 2 diabetes mellitus with hyperglycemia: Comment: Dr. Sanz Code(s): E11.65 - Type 2 diabetes mellitus with hyperglycemia Qualifiers: Diabetes mellitus exterminator insulin use: without residential use Qualifie d Code(s): E11.65 - Type 2 diabetes mellitus with hyperglycemia Plan: Decrease the amount of carbohydrate intake, pasta, bread, rice and potatoes are all sugar and that is aside from all the sweet stuff, remember that fruits are good but they are Sweet also. Hemoglobin A1c goal of less than 6.5. Patient on metformin a 1000 mg twice a day Jardiance 10 mg once a day Orders: Orders AMB Hemoglobin A1c Today E11.65 - Type 2 diabetes mellitus with hyperglycemia Coding Level of Care Code Est Pt Level 4 (08491) Diagnoses Invasive ductal carcinoma of right breast C50.911 Peripheral neuropathy G62.9 Schizoaffective disorder F25.9 Class 2 severe obesity due to excess calories with serious comorbidity and body mass index (BMI) of 38.0 to 38.9 in adult E66.01; Z68.38 Obesity type: due to excess calories Obesity classification: adult class 2 (BMI 35 - 39.9) Serious obesity comorbidity presence: with serious comorbidity Body mass index: BMI 38.0-38.9 Essential hypertension I10 Hypertension type: essential hypertension Hypercholesterolemia E78.00 Gastroesophageal reflux disease without esophagitis K21.9 Esophagitis presence: without esophagitis Type 2 diabetes mellitus with hyperglycemia, without long-term current use of in sulin E11.65 Diabetes mellitus exterminator insulin use: without residential use
[2023-04-27 11:38] VITALS: BP 126/82; PULSE 102; O2SAT 96; BMI 32.2
== END 2023-04-27 12:28 | disposition home or self-care (01) ==
PROVIDERS: PCP Internal Medicine; Visit Provider Internal Medicine
DX: E11.65 Type 2 diabetes mellitus with hyperglycemia (principal); C50.911 Malignant neoplasm of unspecified site of right female breast; F25.9 Schizoaffective disorder, unspecified; E66.01 Morbid (severe) obesity due to excess calories; Z68.32 Body mass index [BMI] 32.0-32.9, adult; G62.9 Polyneuropathy, unspecified; Z68.38 Body mass index [BMI] 38.0-38.9, adult; I10 Essential (primary) hypertension; E78.00 Pure hypercholesterolemia, unspecified; K21.9 Gastro-esophageal reflux disease without esophagitis
CPT/HCPCS: 83036; 99214

== ENCOUNTER 2023-05-07 12:49 | Outpatient (REF) | payer MEDICARE, MEDICAID, SELFPAY ==
--- NOTE | ~2023-05-07 | MM_ITS ---
EXAMINATION: MM DIAGNOSTIC DIGITAL BREAST TOMOSYNTHESIS, BILATERAL CLINICAL INFORMATION: Year 2 after lumpectomy right breast with radiation for invasive ductal carcinoma right breast upper outer quadrant. COMPARISON: Mammography: 05/07/2022, 05/13/2021, 05/02/2021. 05/28/2021. TECHNIQUE: Digital breast tomosynthesis is performed in both the craniocaudal and mediolateral oblique views along with computer-aided detection (CAD). Synthesized 2D images are generated from the tomosynthesis. In addition, 2-D spot magnification right CC and ML views of the right breast at the lumpectomy site were performed. FINDINGS: The breasts are heterogeneously dense, which may obscure small masses (ACR BI-RADS breast composition Category c). There are expected postoperative changes in the upper outer right breast from treatment related changes and lumpectomy. There is generalized trabecular thickening of the Kingsley's ligaments throughout the right breast, and mild skin thickening, consistent with radiation therapy. No evidence of recurrent suspicious mass, calcifications, or distortion. Left breast demonstrates no suspicious masses, suspicious calcifications, or areas of architectural distortion. A scar marker is present where the previous Port-A-Cath was placed. MM/MM tomosynthesis diagnostic BI IMPRESSION: Postoperative changes right breast as expected. No suspicious findings identified to suggest malignancy or recurrence. No suspicious findings left breast. Recommend the patient resume annual postoperative protocol in one year for diagnostic right breast mammography. ASSESSMENT: BI-RADS BI-RADS 2 - Benign Findings RECOMMENDATION: 12 month diagnostic follow up Results were provided to the patient at time of visit by the technologist. This patient's information was entered into a reminder system with a target due date for their next mammogram.
== END 2023-05-07 12:50 | disposition home or self-care (01) ==
LOC: HO.MAMMO 12:49
PROVIDERS: PCP Internal Medicine; Visit Provider Surgery
DX: Z85.3 Personal history of malignant neoplasm of breast (principal); Z92.3 Personal history of irradiation; Z98.890 Other specified postprocedural states
CPT/HCPCS: 77062; 77066

== ENCOUNTER → 2023-05-07 13:00 | Outpatient (BNV) | payer MEDICARE, MEDICAID, SELFPAY | PROVIDERS: PCP Internal Medicine; Visit Provider Radiology Diagnostic Radiology | DX: R92.333 Mammographic heterogeneous density, bilateral breasts (principal) | CPT/HCPCS: 77062; 77066; G0279 ==

== ENCOUNTER 2023-06-23 08:55 | Outpatient (AMB) | payer MEDICARE, MEDICAID, SELFPAY ==
[2023-06-23 09:07] VITALS: BP 134/88; PULSE 110; O2SAT 99; BMI 33.3
--- NOTE | 2023-06-23 09:07 | A.OFFVIS_ITS ---
Intake Vital Signs 06/23/23 09:07 Height 5 ft 2 in Weight 182 lb 4 oz BMI 33.3 BP 134/88 Blood Pressure Location Lt brachial Position Sitting Pulse 110 H Pulse Source Pulse Oximeter Pulse Oximetry (%) 99 Oxygen Delivery Method Room Air Intake Visit Reasons: 3m follow up Facial weakness/Polyneuropathy/Conf. Intake Note: Pt presents to the office today for a 3 month follow up for facial weakness,polyneuropathy. Accompanied by: Significant Other Allergies lisinopril [LISINOPRIL] Allergy (Unknown, Verified 06/23/23 09:10) SWOLLEN LIPS, angioedema, swelling HPI HPI Comments History of Present Illness Details 52y/o female comes for follow up of mireya pheral neuropathy. Pt reports she started taking Nirvive and the bilateral feet numbness and ti ngling has improved slightly. These symptoms are episodic and feels it more when she is sitting in her chair. She is also has some gait and balance issues. Pt can feel the ground, but her legs weak and unsteady. She did not fall, but had episodes of near falls. She has left hemiparesis with facial weakness since childhood- no further history available. [facility] Medical History Left leg paresthesias COVID-19 virus infection Schizoaffective disorder Colon cancer screening Breast cancer Arthritis Depression Tachycardia Hiatal hernia Hearing loss Facial paralysis Schizophrenia Obesity Iron deficiency anemia Hypertension Hypercholesterolemia GERD (gastroesophageal reflux disease) Type 2 diabetes mellitus with hyperglycemia Surgical History History of removal of Port-a-Cath History of lumpectomy of right breast Hemiparesis History of eye surgery History of placement of ear tubes Family History Father Medical history unknown Mother Medical history unknown Social History Household Members: Significant Other Housing: Condominium Are you a primary career technical counselor to a significant other at home: No Do you presently have visiting nurse or other home services: Yes Alcohol intake: current Alcohol intake frequency: does not drink Alcohol type: beer and wine Patient Tobacco Use Status: Never used Tobacco e-Cigarette/Vaping Use: Never Used Second Hand Smoke Exposure: No Advance Directives Date on File: 06/24/21 service: No Current occupational status: unemployed Sexual orientation: Lesbian/Reyes/Homosexual Cognitive needs: No Hearing needs: Yes (hearing aides) Vision needs: Yes (glasses) Female Reproductive History Menstrual Age of Menarche: 13 Review of Systems Const All systems reviewed & are unremarkable except as noted in HPI and below ENT Reports Normal hearing present Neuro Reports Normal hearing present Physical Exam Vital Signs: Last Vital Signs Pulse 110 H 06/23/23 09:07 BP 134/88 06/23/23 09:07 Pulse Ox 99 06/23/23 09:07 Oxygen Delivery Method Room Air 06/23/23 09:07 BMI result Body Mass Index 33.3 Const General: cooperative, comfortable and no acute distress Nutritional Appearance: overweight Orientation/consciousness: patient oriented x3 Neuro Other: left foot - weakness of dorsiflexion , decreased range of motion in the left ankle .Normal sensation Left dense weakness General: patient oriented x3 and moves all extremities Cranial nerves: Yes Nystagmus not present, Yes Midline tongue present, Yes Normal hearing present and Yes Ability to bilaterally elevate shoulders present Cognition (Neuro): normal cognition Gait exam (Neuro): Steppage gait present Motor exam (neuro): Normal motor muscle tone present throughout Deep tendon reflexes (DTR's): Right triceps reflex intensity grade: 0, Left triceps reflex intensity grade: 0, Rt Biceps (C5, C6): 0, Left biceps reflex intensity grade: 0, Right brachioradialis reflex intensity grade: 0, Left brachioradialis reflex intensity grade: 0, Right patellar reflex intensity grade: 0 and Left patellar reflex intensity grade: 0 Coordination: [id number] test normal Assessment & Plan Assessment & Plan (1) Left leg paresthesias: Comment: likely peripheral neuropathy ? diabetic worsened by Chemo Code(s): R20.2 - Paresthesia of skin Plan Refer patient to physical therapy for lower extremities strength and gait training. Continue to take Nirvive. Advised patient to have well balanced diet and manages her diabetes. Orders: Orders PT Evaluation and Treatment 12 Weeks G62.9 - Polyneuropathy, unspecified, R20.2 - Paresthesia of skin, R26.81 - Unsteadiness on feet Coding Level of Care Code Est Pt Level 3 (53080) Diagnoses Left leg paresthesias R20.2
== END 2023-06-23 09:37 | disposition home or self-care (01) ==
PROVIDERS: PCP Internal Medicine; Visit Provider Nurse Practitioner Family
DX: R20.2 Paresthesia of skin (principal)
CPT/HCPCS: 99213

== ENCOUNTER → 2023-06-23 08:55 | Outpatient (BNVA) | payer MEDICARE, MEDICAID, SELFPAY | PROVIDERS: PCP Internal Medicine; Visit Provider Nurse Practitioner Family | DX: R20.2 Paresthesia of skin (principal) | CPT/HCPCS: 99212 ==

== ENCOUNTER 2023-06-25 09:54 | Outpatient (AMB) | payer MEDICARE, MEDICAID, SELFPAY ==
[2023-06-25 10:03] VITALS: BP 118/74; PULSE 100; O2SAT 98; BMI 33.3
--- NOTE | 2023-06-25 10:03 | AM.OFFVISMDC ---
Intake Vital Signs 06/25/23 10:03 Height 5 ft 2 in Weight 182 lb 0.2 oz BMI 33.3 BP 118/74 Blood Pressure Location Lt brachial Position Sitting Pulse 100 Pulse Source Pulse Oximeter Pulse Oximetry (%) 98 Oxygen Delivery Method Room Air Intake Visit Reasons: [facility] G0439 Interventional Radiology Rn Required: No Allergies lisinopril [LISINOPRIL] Allergy (Unknown, Verified 06/25/23 10:15) SWOLLEN LIPS, angioedema, swelling Medication List - Last Reconciled 06/25/23 by CHAR Ashley blood sugar diagnostic (FreeStyle Lite Strips) As directed check the BS twice daily blood-glucose meter (FreeStyle Lite Meter kit) As directed cholecalciferol (vitamin D3) (Vitamin D3) 10 mcg PO DAILY clozapine 100 mg PO BID clozapine mg PO docusate sodium 100 mg PO BEDTIME empagliflozin (Jardiance) 10 mg PO DAILY 90 days lancets (FreeStyle Lancets) Twice a day letrozole 2.5 mg PO DAILY leuprolide (3 month) (Lupron Depot) 22.5 mg IM [id number] lorazepam 1 mg PO BID losartan 25 mg PO DAILY 90 days lurasidone (Latuda) 80 mg PO 1800 metformin 1,000 mg PO BID multivitamin 1 tab PO DAILY [[place] 3 Fish Oil 1 tab PO DAILY] omeprazole 20 mg PO DAILY pregabalin (Lyrica) 50 mg PO BID simvastatin 5 mg PO BEDTIME HPI [facility] G0439 HPI Details Patient is a 52-year-old female who presents today for subsequent wellness visit. Patient of Dr. Moctezuma. Patient is up-to-date with her health preventative screenings and immunizations. Colonoscopy 12/2022 with tubular adenoma was done by Dr. Chance. Pap smear normal 08/2022 with [facility]. Bone density screen normal 11/2022. Mammogram normal 04/2023. [place] of care was reviewed with the patient and she was provided with screening schedule. Patient reports that she has a healthcare proxy in place and MOLST form is on file. [facility] Medical History (Updated 06/25/23 @ 10:34 by CHAR Ashley) Overweight (BMI 25.0-29.9) Microangiopathy Left leg paresthesias COVID-19 virus infection Schizoaffective disorder Colon cancer screening Breast cancer Arthritis Depression Tachycardia Hiatal hernia Hearing loss Facial paralysis Schizophrenia Obesity Iron deficiency anemia Hypertension Hypercholesterolemia GERD (gastroesophageal reflux disease) Type 2 diabetes mellitus with hyperglycemia Surgical History History of removal of Port-a-Cath History of lumpectomy of right breast Hemiparesis History of eye surgery History of placement of ear tubes Family History Father Medical history unknown Mother Medical history unknown Social History Household Members: Significant Other Housing: Condominium Are you a primary transitions rn care coordinator to a significant other at home: No Do you presently have visiting nurse or other home services: Yes Alcohol intake: current Alcohol intake frequency: does not drink Alcohol type: beer and wine Patient Tobacco Use Status: Never used Tobacco e-Cigarette/Vaping Use: Never Used Second Hand Smoke Exposure: No Advance Directives Date on File: 06/24/21 service: No Current occupational status: unemployed Sexual orientation: Lesbian/Reyes/Homosexual Cognitive needs: No Hearing needs: Yes (hearing aides) Vision needs: Yes (glasses) Female Reproductive History Menstrual Age of Menarche: 13 Questionnaire Medicare Wellness Checkup What is your age?: 65-69 (51) What gender do you identify with?: female During the past 4 weeks, how much have you been bothered by emotional problems such as feeling anxious, depressed, irritable, sad or downhearted, and blue?: moderately During the past 4 weeks, has your physical & emotional health limited your social activities with family, friends, neighbors, or groups?: slightly During the past 4 weeks, how much bodily pain have you generally had?: mild pain During the past 4 weeks, was someone available to help you if you needed & wanted help?: yes, a little During the past 4 weeks, what was the hardest physical activity you could do for at least 2 minutes?: moderate Can you get to places out of walking distance without help? (For eg., can you travel alone on buses, taxis or drive your car?): Yes Can you go shopping for groceries or clothes without someone's help?: Yes Can you prepare your own meals?: Yes Can you do your housework without help?: Yes Because of any health problems, do you need the help of another person with your personal care needs such as eating, bathing, dressing or getting around the house?: No Can you handle your own money without help?: Yes During the past 4 weeks, how would you rate your health in general?: good During the past 4 weeks how have things been going for you?: good & bad parts about equal Are you having difficulties driving your car?: no Do you always fasten your seat belt when you are in a car?: yes, usually During past 4 weeks, have you been bothered by the following: never: Sexual problems?, Teeth or denture problems? and Problems using the telephone?, seldom: Falling or dizzy when standing up and Trouble eating well? and often: Tiredness or fatigue? Have you fallen 2 or more times in the past year?: Yes Are you afraid of falling?: Yes Are you a smoker?: no During the past 4 weeks, how many drinks of wine, beer, or other alcoholic beverages did you have?: no alcohol at all Do you exercise for about 20 minutes 3 or more times a week?: no, I usually do not exercise this much Have you been given information to help with the following?: yes: Keeping track of your medications? and no: Hazards in your house that might hurt you? How often do you have trouble taking medicines the way you have been told to take them?: I always take medicine as prescribed (nurse) How confident are you that you can control & manage most of your health problems?: somewhat confident What is your race?: Black or Mini Mental State Exam (MMSE) Orientation What is the (year) (season) (date) (day) (month)?: year, season, date, day and month Score Score: 5 Activity of Daily Living Bathing - sponge bath, tub bath or shower: receives no assistance (gets in/out by self, if usual bathing means Dressing - getting clothes from closets & drawers, including inner/outer garments & fasteners.: gets clothes & gets completely dressed without help Toileting - going to the 'toilet room' for urine/bowel elimination & cleaning self/arranging clothes: goes to toilet room, cleans self, arranges clothes without help Transfer: moves in & out of bed and chair without help (may use support object) Continence: controls urination/bowel movements completely by self Feeding: feeds self without help Total Score: 0 Information obtained from: patient Using telephone: independent Traveling: independent Shopping: independent Preparing meals: independent Housework: independent Taking medicine: independent Managing money: independent PHQ-9 Over the last 2 weeks, how often have you been bothered by any of the following problems? 1. Little interest or pleasure in doing things: several days 2. Feeling down, depressed, or hopeless: several days 3. Trouble falling or staying asleep, or sleeping too much: more than half the days 4. Feeling tired or having little energy: more than half the days 5. Poor appetite or overeating: several days 6. Feeling bad about yourself - or that you are a failure or have let yourself or your family down: several days 7. Trouble concentrating on things, such as reading the newspaper or watching television: several days 8. Moving or speaking so slowly that other people could have noticed. Or the opposite - being so fidgety or restless that you have been moving around a lot more than usual: several days 9. Thoughts that you would be better off or of hurting yourself in some way: not at all Total score: 10 Depression Screening Interpretation: Positive Depression Screening Follow-up: In treatment Depression Screening Done: Yes 73311 - PHQ-9 Billing: Yes Source: Developed by Drs. Baldev Floyd, Елена Wolff, Sina Reyes and colleagues, with an educational patti from [employer]. Physical Exam Vital Signs: Last Vital Signs Pulse 100 06/25/23 10:03 BP 118/74 06/25/23 10:03 Pulse Ox 98 06/25/23 10:03 Oxygen Delivery Method Room Air 06/25/23 10:03 BMI result Body Mass Index 33.3 Const General: cooperative and no acute distress Orientation/consciousness: patient oriented x3 HEENT Other: Whisper test: pass Neuro Other: Balance: Normal Get up and walk: unable to Romberg: negative Tandem gait: unable to General: patient oriented x3 Assessment & Plan Assessment & Plan (1) Adult general medical exam: Code(s): Z00.00 - Encounter for general adult medical examination without abnormal findings Plan: Repeat in 1 year (2) Invasive ductal carcinoma of right breast: Comment: Lumpectomy May 2021 Code(s): C50.911 - Malignant neoplasm of unspecified site of right female breast Plan: Patient is followed by Dr. Holden and Dr. Mora (3) Schizophrenia: Comment: Paranoid personality disorder, depression, [employer] [place] a therapist Joanne and Dr. March Code(s): F20.9 - Schizophrenia, unspecified Plan: Continue to follow-up with psychiatrist and therapist (4) Obesity: Comment: Pt also has T2DM Code(s): E66.9 - Obesity, unspecified Qualifiers: Obesity type: due to excess calories Obesity classification: adult class 2 (BMI 35 - 39.9) Serious obesity comorbidity presence: with serious comorbidity Body mass index: BMI 38.0-38.9 Qualified Code(s): E66.01 - Morbid (severe) obesity due to excess calories; Z68.38 - Body mass index [BMI] 38.0-38.9, adult Plan: Healthy food choices and exercise as tolerated (5) Hypertension: Code(s): I10 - Essential (primary) hypertension Qualifiers: Hypertension type: essential hypertension Qualified Code(s): I10 - Essential (primary) hypertension Plan: Continue current treatment. Reinforced low-sodium diet and exercise as tolerated (6) Hypercholesterolemia: Code(s): E78.00 - Pure hypercholesterolemia, unspecified Plan: Simvastatin 5 mg bedtime Low cholesterol diet (7) GERD (gastroesophageal reflux disease): Code(s): K21.9 - Gastro-esophageal reflux disease without esophagitis Qualifiers: Esophagitis presence: without esophagitis Qualified Code(s): K21.9 - Gastro-esophageal reflux disease without esophagitis Plan: Continue current treatment. Avoid GERD trigger foods (8) Type 2 diabetes mellitus with hyperglycemia: Comment: Dr. Sanz Code(s): E11.65 - Type 2 diabetes mellitus with hyperglycemia Qualifiers: Diabetes mellitus manager terminal insulin use: without manager terminal use Qualified Code(s): E11.65 - Type 2 diabetes mellitus with hyperglycemia Plan: A1c 6.1 04/2023 Continue current treatment Low-carbohydrate diet (9) Depression: Code(s): F32.A - Depression, unspecified Qualifiers: Depression Type: other depression Qualified Code(s): F32.89 - Other specified depressive episodes Plan: Continue to follow-up with psychiatrist and therapist. Continue current treatment (10) Unsteadiness on feet: Code(s): R26.81 - Unsteadiness on feet Plan: Continue to follow-up with neurology Patient reports currently in physical therapy (11) Schizoaffective disorder: Comment: [facility] (09/2022) Code(s): F25.9 - Schizoaffective disorder, unspecified Plan: Continue to follow-up with psychiatry and therapist Quality Reporting (2019) Depression/Bipolar (159/160/161/177) PHQ-9: Total score: 10 Coding Level of Care Code Medicare Subsequent (G0439) Diagnoses Adult general medical exam Z00.00 Invasive ductal carcinoma of right breast C50.911 Paranoid schizophrenia F20.9 Class 2 severe obesity due to excess calories with serious comorbidity and body mass index (BMI) of 38.0 to 38.9 in adult E66.01; Z68.38 Obesity type: due to excess calories Obesity classification: adult class 2 (BMI 35 - 39.9) Serious obesity comorbidity presence: with serious comorbidity Body mass index: BMI 38.0-38.9 Essential hypertension I10 Hypertension type: essential hypertension Hypercholesterolemia E78.00 Gastroesophageal reflux disease without esophagitis K21.9 Esophagitis presence: without esophagitis Type 2 diabetes mellitus with hyperglycemia, without long-term current use of insulin E11.65 Diabetes mellitus manager terminal insulin use: without manager terminal use Other depression F32.89 Depression Type: other depression Unsteadiness on feet R26.81 Schizoaffective disorder F25.9 CPT Codes Advance Care Planning - Advance Care Planning discussion: On file, no changes ([id number]) Advance Care Planning - Time spent: 1-15 minutes, on File ([id number]) Advance Care Planning Advance Care Planning discussion: On file, no changes Date of discussion: 06/25/23 Who was present: pt and senior program manager Forms completed: None Time spent: 1-15 minutes, on File Actual minutes spent: 1 Did not discuss due to Cultural/Spiritual beliefs: No
== END 2023-06-25 10:30 | disposition home or self-care (01) ==
PROVIDERS: Visit Provider Nurse Practitioner Family
DX: Z00.00 Encounter for general adult medical examination without abnormal findings (principal); E11.65 Type 2 diabetes mellitus with hyperglycemia; E66.01 Morbid (severe) obesity due to excess calories; Z68.38 Body mass index [BMI] 38.0-38.9, adult; I10 Essential (primary) hypertension; E78.00 Pure hypercholesterolemia, unspecified; K21.9 Gastro-esophageal reflux disease without esophagitis; F32.89 Other specified depressive episodes; R26.81 Unsteadiness on feet; F25.9 Schizoaffective disorder, unspecified
CPT/HCPCS: 1123F; G0439

== ENCOUNTER 2023-08-10 13:00 | Outpatient (RCR) | payer MEDICARE, MEDICAID, SELFPAY ==
--- NOTE | 2023-07-02 09:48 | MHC.PT.EP ---
[facility] [place] Office [place] Office [place] Office [address] Brian Mixon [address] [phone] F: [phone] F: [phone] F: [phone] F: [phone] Physical Therapy Plan of Care Date of Evaluation: 07/02/23 Date of Surgery: n/a Diagnosis: unsteadiness on feet Assessment: Patient is a 52 year old female presenting to PT with complaints of unsteadiness on feet. Pt reports onset of pain began a few years ago after a hospitalization. She presents today with impairments in gait, balance, LE strength, fall risk. Pt's current occupation is none, with baseline physical activities including ambulation, transfers, stair negotiation, ADLs, turning corners. 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 Clinical presentation today is most consistent with signs and sx associated with unsteadiness on feet and pt will benefit from skilled PT 2 week x 4 weeks to address the following problems and impairments noted upon evaluation: gait, balance, LE strength, fall risk. These problems limit the patient with the following functional activities: ambulation, transfers, stair negotiation, ADLs, turning corners. The prescribed treatment plan of care is medically necessary. Co-morbidities of breast cancer R, schizophrenia, HTN, T2DM, L hemiparesis, hx blood clot L arm, neuropathy were identified and taken into considerations of plan of care. Pt was educated on HEP, role of PT, prognosis, POC. Frequency and Duration: The patient will be seen 2 x week x 4 weeks Short Term Goals: Pt will demonstrate ability to perform tandem stance x 30 sec B with minimal sway in 2 weeks. Pt will demonstrate ability to perform STS without UE support to demonstrate improved LE strength in 2 weeks. Pt will demonstrate ability to negotiate step with unilateral railing in 2 weeks. Custodial Goals: Pt will demonstrate improved LEFI score by 9 points in 4 weeks for improved functional mobility. Pt will demonstrate improved TUG score by 2 seconds in 4 weeks for decreased risk of falls. Pt will demonstrate improved DGI by 2 points in 4 weeks for decreased risk of falls. Treatment Plan: Modalities to reduce pain, spasms and effusion. Manual therapy to restore motion and function. Therapeutic exercise to improve strength and flexibility. Neuromuscular re-education for posture and balance. Therapeutic activities to return to functional activities of daily living. Electronically signed by: Lisa Johnson PT, DPT, ATC Please sign and return to therapist. Thank you for your referral.
--- NOTE | 2023-08-10 13:57 | MHC.PT.DC ---
[facility] [place] Office [place] Office [place] Office [address] Brian Mixon [address] [phone] F: [phone] F: [phone] F: [phone] F: [phone] Physical Therapy Discharge Report Diagnosis: unsteadiness on feet Date of Surgery: n/a Date of Evaluation: 07/02/23 Date of Discharge: 08/10/23 Treatments to Date: 10 Cancellations to Date: 1 No Shows to Date: 0 Discharge Status: Improved Function Independent with HEP Discharge Summary: 08/10/2023: Pt has made some improvements since start of care however she continues to report some balance problems primarily when moving too quickly or on unstable surfaces like snow/ice. She demonstrates progress towards her goals and is independent in her HEP. At this time we have maximized benefits of skilled PT and it is no longer appropriate to continue. Pt in agreement with d/c today and understands importance of continuing HEP and using extra caution when moving quicker/is in unpredictable situations. Electronically signed by: Lisa Johnson, PT, DPT, ATC Please sign and return to therapist. Thank you for your referral.
== END 2023-08-10 13:58 | disposition home or self-care (01) ==
LOC: HO.PTCHIC 13:00
PROVIDERS: PCP Internal Medicine; Visit Provider Nurse Practitioner Family
DX: R20.2 Paresthesia of skin (principal); G62.9 Polyneuropathy, unspecified; R26.81 Unsteadiness on feet
CPT/HCPCS: 97110; 97112; 97162

== ENCOUNTER 2023-08-13 10:59 | Outpatient (AMB) | payer MEDICARE, MEDICAID, SELFPAY ==
--- NOTE | 2023-08-13 11:22 | A.OFFPC_ITS ---
Vital Signs 3 08/13/23 11:23 Height 5 ft 2 in Weight 180 lb 0.2 oz BMI 32.9 BP 116/74 Blood Pressure Location Lt brachial Position Sitting Pulse 68 Pulse Source Pulse Oximeter Pulse Oximetry (%) 95 Oxygen Delivery Method Room Air Intake Visit Reasons: DM Allergies lisinopril [LISINOPRIL] Allergy (Unknown, Verified 06/25/23 10:15) SWOLLEN LIPS, angioedema, swelling Medication List - Last Reconciled 08/13/23 by Liss Moctezuma MD blood sugar diagnostic (FreeStyle Lite Strips) As directed check the BS twice daily blood-glucose meter (FreeStyle Lite Meter kit) As directed cholecalciferol (vitamin D3) (Vitamin D3) 10 mcg PO DAILY clozapine 100 mg PO BID clozapine mg PO docusate sodium 100 mg PO BEDTIME empagliflozin 25 mg PO DAILY 90 days lancets (FreeStyle Lancets) Twice a day letrozole 2.5 mg PO DAILY leuprolide (3 month) (Lupron Depot) 22.5 mg IM [id number] lorazepam 1 mg PO BID losartan 25 mg PO DAILY 90 days lurasidone (Latuda) 80 mg PO 1800 metformin 1,000 mg PO BID multivitamin 1 tab PO DAILY [[place] 3 Fish Oil 1 tab PO DAILY] omeprazole 20 mg PO DAILY pregabalin (Lyrica) 50 mg PO BID simvastatin 5 mg PO BEDTIME Tobacco use date assessed: 08/13/23 Dental Screening Dental Screen Date: 08/13/23 Did you have a dental visit in the last 12 months?: Yes Did you have a dental problem in the last 6 months where you did not have access to dental care?: No Was dental information given to patient?: Patient has dentist HPI DM 2 HPI0 Details 52-year-old obese female with right [facility] cancer 2020 patient also has diabetes mellitus hypertension hypercholesterolemia schizoaffective disorder comes in for follow-up last seen in April 2023. Patient's mammogram is due, colonoscopy up-to-date December 2022 bone density is up-to-date. Review of the notes was seen by the nurse practitioner in May for annual well visit. Patient also has polyneuropathy and has been referred to Neurology who has recommended physical therapy noted also follow-up with hematology oncology.. finished PT [placed on pregabalin. sees Dr. Hulseburge last month [facility] Medical History (Updated 06/25/23 @ 10:34 by CHAR Ashley) Overweight (BMI 25.0-29.9) Microangiopathy Left leg paresthesias COVID-19 virus infection Schizoaffective disorder Colon cancer screening Breast cancer Arthritis Depression Tachycardia Hiatal hernia Hearing loss Facial paralysis Schizophrenia Obesity Iron deficiency anemia Hypertension Hypercholesterolemia GERD (gastroesophageal reflux disease) Type 2 diabetes mellitus with hyperglycemia Surgical History History of removal of Port-a-Cath History of lumpectomy of right breast Hemiparesis History of eye surgery History of placement of ear tubes Family History Father Medical history unknown Mother Medical history unknown Social History Household Members: Significant Other Housing: [facility] Are you a primary customer care coordinator to a significant other at home: No Do you presently have visiting nurse or other home services: Yes Alcohol intake: current Alcohol intake frequency: does not drink Alcohol type: beer and wine Patient Tobacco Use Status: Never used Tobacco e-Cigarette/Vaping Use: Never Used Second Hand Smoke Exposure: No Advance Directives Date on File: 06/24/21 service: No Current occupational status: unemployed Sexual orientation: Lesbian/Reyes/Homosexual Cognitive needs: No Hearing needs: Yes (hearing aides) Vision needs: Yes (glasses) Female Reproductive History Menstrual Age of Menarche: 13 Questionnaire PHQ-9 Over the last 2 weeks, how often have you been bothered by any of the following problems? 1. Little interest or pleasure in doing things: several days 2. Feeling down, depressed, or hopeless: several days 3. Trouble falling or staying asleep, or sleeping too much: several days 4. Feeling tired or having little energy: several days 5. Poor appetite or overeating: not at all 6. Feeling bad about yourself - or that you are a failure or have let yourself or your family down: several days 7. Trouble concentrating on things, such as reading the newspaper or watching television: several days 8. Moving or speaking so slowly that other people could have noticed. Or the opposite - being so fidgety or restless that you have been moving around a lot more than usual: not at all 9. Thoughts that you would be better off or of hurting yourself in some way: not at all Total score: 6 Depression Screening Interpretation: Positive Depression Screening Follow-up: Existing condition and In treatment Depression Screening Done: Yes Source: Developed by Drs. Baldev Floyd, Елена Wolff, Sina Reyes and colleagues, with an educational patti from [employer]. Thrive Questionnaire Date Thrive assessed: 08/13/23 I am a: Patient What is your living situation today?: I have a steady place to live Within the past 12 months, did the food you bought not last and you didn't have the money to get more?: Never true Within the past 12 months, did you worry whether your food would run out before you got money to buy more?: Never true Do you have trouble paying for medicines?: No Do you have trouble getting transportation to medical appointments?: No Do you have trouble paying your heating and electricity bill?: No Do you have trouble taking care of your child, family member or friend?: No Do you have trouble with day-to-day activities such as bathing, preparing meals, shopping, managing finances, etc.?: No Are you currently unemployed and looking for a job?: No Are you interested in more education?: No AUDIT C Alcohol Use Questionnaire (AUDIT-C) 1. How often do you have a drink containing alcohol?: Never 3. How often do you have six or more drinks on one occasion?: Never Total Score: 0 SPEEDY-7 AMB Questionnaire SPEEDY-7 Date SPEEDY - 7 assessed: 08/13/23 Feeling nervous, anxious, or on edge: 1 = Several days Not being able to stop or control worryin = Several days Worrying too much about different things: 1 = Several days Trouble relaxin = Not at all Being so restless that it is hard to sit still: 0 = Not at all Becoming easily annoyed or irritable: 1 = Several days Feeling afraid as if something awful might happen: 0 = Not at all Total SPEEDY-7 score (0-4 normal; 5-9 mild; 10-14 moderate; 15-21 severe): 4 Source: Developed by Елена BeanW. New, Sina Reyes and colleagues, with an educational patti from [employer]. Physical exam (Primary Care) Vital Signs: Last Vital Signs Pulse 68 08/13/23 11:23 BP 116/74 08/13/23 11:23 Pulse Ox 95 08/13/23 11:23 Oxygen Delivery Method Room Air 08/13/23 11:23 BMI result Body Mass Index 32.9 Tobacco/Smoking Status: Tobacco use Status Tobacco use date assessed 08/13/23 08/13/23 11:30 Patient Tobacco Use Status Never used Tobacco 08/13/23 11:30 e-Cigarette/Vaping Use Never Used 08/13/23 11:30 PHQ-9: PHQ-9 Score PHQ-9: Total score 6 08/13/23 11:34 Depression Screening Interpretation: Positive Depression Screening Follow-up: Existing condition and In treatment Thrive Assessment: Date of Thrive Assessment Date Thrive assessed 08/13/23 08/13/23 11:30 Const General: alert; No acute distress Eyes Conjunctivae: conjunctivae normal Resp Auscultation: clear to auscultation bilaterally Cardio Rate: regular rate Rhythm: regular rhythm GI Inspection: Yes normal to inspection Back/Spine/Pelvis Other: pedal pulse andpin prick good noted sole callous Extrem General: Yes normal to inspection and No edema Ankle/foot/toe images: 2 1. callous noted 2 cm round bilateral 2. pulse pedal and pin prick good Results AMB Hemoglobin A1c 2 AMB Hemoglobin A1c 7.1 % Last Edit by JUDY Morris on 08/13/23 11:34 Results Reviewed Results Reviewed: Laboratory Last Values Hgb A1c (Clinic) 7.1 % (4.0-6.0) H 08/13/23 11:34 Assessment and Plan Assessment & Plan (1) Type 2 diabetes mellitus with hyperglycemia: Comment: Dr. Sanz Code(s): E11.65 - Type 2 diabetes mellitus with hyperglycemia Qualifiers: Diabetes mellitus long term care phlebotomist insulin use: without [place] [facility] use Qualified Code(s): E11.65 - Type 2 diabetes mellitus with hyperglycemia Plan: Decrease the amount of carbohydrate intake, pasta, bread, rice and potatoes are all sugar and that is aside from all the sweet stuff, remember that fruits are good but they are Sweet also. Hemoglobin A1c goal of less than 6.5 patient on Jardiance 10 mg once a day metformin 1000 mg twice a day (2) GERD (gastroesophageal reflux disease): Code(s): K21.9 - Gastro-esophageal reflux disease without esophagitis Qualifiers: Esophagitis presence: without esophagitis Qualified Code(s): K21.9 - Gastro-esophageal reflux disease without esophagitis Plan: Avoid the foods that causes that usually spicy foods, tomato products, juices, coffee, soda and foods that your sensitive to. After eating do not lie down, allow 3-4 hours before in lie down. And keep the head of bed above 30 degrees to avoid the acid from going up. (3) Hypertension: Code(s): I10 - Essential (primary) hypertension Qualifiers: Hypertension type: essential hypertension Qualified Code(s): I10 - Essential (primary) hypertension Plan: Continue with blood pressure medication. Decrease salt intake and exercise patient takes losartan 25 mg once a day (4) Hypercholesterolemia: Code(s): E78.00 - Pure hypercholesterolemia, unspecified Plan: Avoid fried foods, chicken skin, eggs, butter margarine, pastries and meat. Be it pork or beef they have a lot of cholesterol LDL goal of less than 100 and triglyceride of less than 150 takes simvastatin 5 mg once a day (5) Obesity: Comment: Pt also has T2DM Code(s): E66.9 - Obesity, unspecified Qualifiers: Obesity type: due to excess calories Obesity classification: adult class 2 (BMI 35 - 39.9) Serious obesity comorbidity presence: with serious comorbidity Body mass index: BMI 38.0-38.9 Qualified Code(s): E66.01 - Morbid (severe) obesity due to excess calories; Z68.38 - Body mass index [BMI] 38.0- 38.9, adult Plan: Diet and exercise (6) Schizoaffective disorder: Comment: [facility] to [facility] (09/2022) Code(s): F25.9 - Schizoaffective disorder, unspecified Plan: Continue to follow-up with counseling and therapy (7) Invasive ductal carcinoma of right breast: Comment: Lumpectomy May 2021 Code(s): C50.911 - Malignant neoplasm of unspecified site of right female breast Plan: Up-to-date with mammogram continue to follow-up with Hematology-Oncology (8) Left leg paresthesias: Comment: likely peripheral neuropathy ? diabetic worsened by Chemo Code(s): R20.2 - Paresthesia of skin Plan: Patient was advised physical therapy seen Neurology. Orders: Orders 2 AMB Hemoglobin A1c Today E11.65 - Type 2 diabetes mellitus with hyperglycemia Medications: Changed 2 From empagliflozin (Jardiance) 10 mg PO DAILY 90 days 90 tabs 1RF E11.65 - Type 2 diabetes mellitus with hyperglycemia To empagliflozin 25 mg PO DAILY 90 days 90 tabs 1RF E11.65 - Type 2 diabetes mellitus with hyperglycemia Coding Level of Care Code Est Pt Level 4 (35222) Diagnoses Type 2 diabetes mellitus with hyperglycemia, without long-term current use of insulin E11.65 Diabetes mellitus long term care phlebotomist insulin use: without long term care phlebotomist use Gastroesophageal reflux disease without esophagitis K21.9 Esophagitis presence: without esophagitis Essential hypertension I10 Hypertension type: essential hypertension Hypercholesterolemia E78.00 Class 2 severe obesity due to excess calories with serious comorbidity and body mass index (BMI) of 38.0 to 38.9 in adult E66.01; Z68.38 Obesity type: due to excess calories Obesity classification: adult class 2 (BMI 35 - 39.9) Serious obesity comorbidity presence: with serious comorbidity Body mass index: BMI 38.0-38.9 Schizoaffective disorder F25.9 Invasive ductal carcinoma of right breast C50.911 Left leg paresthesias R20.2
[2023-08-13 11:23] VITALS: BP 116/74; PULSE 68; O2SAT 95; BMI 32.9
== END 2023-08-13 12:00 | disposition home or self-care (01) ==
PROVIDERS: PCP Internal Medicine; Visit Provider Internal Medicine
DX: E11.65 Type 2 diabetes mellitus with hyperglycemia (principal); E66.01 Morbid (severe) obesity due to excess calories; F25.9 Schizoaffective disorder, unspecified; C50.911 Malignant neoplasm of unspecified site of right female breast; Z68.32 Body mass index [BMI] 32.0-32.9, adult; K21.9 Gastro-esophageal reflux disease without esophagitis; I10 Essential (primary) hypertension; E78.00 Pure hypercholesterolemia, unspecified; Z68.38 Body mass index [BMI] 38.0-38.9, adult; R20.2 Paresthesia of skin
CPT/HCPCS: 83036; 99214

== ENCOUNTER → 2023-09-21 09:01 | Outpatient (BNVA) | payer MEDICARE, MEDICAID, SELFPAY | PROVIDERS: PCP Internal Medicine; Visit Provider Advanced Practice Midwife | DX: Z01.419 Encounter for gynecological examination (general) (routine) without abnormal findings (principal); R20.2 Paresthesia of skin; R29.810 Facial weakness; C50.911 Malignant neoplasm of unspecified site of right female breast; E11.65 Type 2 diabetes mellitus with hyperglycemia; Z12.4 Encounter for screening for malignant neoplasm of cervix | CPT/HCPCS: G0101 ==

== ENCOUNTER 2023-10-08 11:24 | Outpatient (AMB) | payer MEDICARE, MEDICAID, SELFPAY ==
--- NOTE | 2023-10-08 11:43 | A.OFFVIS_ITS ---
Intake Vital Signs 3 10/08/23 11:46 Height 5 ft 2 in Weight 187 lb 8 oz BMI 34.3 BP 136/74 Blood Pressure Location Lt brachial Position Sitting Pulse 99 Intake Visit Reasons: 6 mth follow up breast exam Intake Note: Patient is seen in office for 6 month follow up visit, breast exam. Patient c/o: no longer on Tamoxifen has been changed to Letrozole due to blood clots on prior medication, no concerns regarding the breast mm sche: 05/12/24 Government Relations Manager Required: No Neckties Painter: Neckties Painter Present Accompanied by: Self / Same As Patient Allergies lisinopril [LISINOPRIL] Allergy (Unknown, Verified 10/08/23 11:45) SWOLLEN LIPS, angioedema, swelling Medication List - Last Reconciled 10/08/23 by Ivan Holden MD blood sugar diagnostic (FreeStyle Lite Strips) As directed check the BS twice daily blood-glucose meter (FreeStyle Lite Meter kit) As directed cholecalciferol (vitamin D3) (Vitamin D3) 10 mcg PO DAILY clozapine 100 mg PO BID clozapine 50 mg PO DAILY docusate sodium 100 mg PO BEDTIME empagliflozin 25 mg PO DAILY 90 days lancets (FreeStyle Lancets) Twice a day letrozole 2.5 mg PO DAILY leuprolide (3 month) (Lupron Depot) 22.5 mg IM [id number] lorazepam 1 mg PO BID losartan 25 mg PO DAILY 90 days lurasidone (Latuda) 80 mg PO 1800 metformin 1,000 mg PO BID multivitamin 1 tab PO DAILY [[place] 3 Fish Oil 1 tab PO DAILY] omeprazole 20 mg PO DAILY pregabalin (Lyrica) 50 mg PO BID simvastatin 5 mg PO BEDTIME HPI HPI Comments 2 History of Present Illness0 Details 53-year-old female returning for a [facility] cancer follow-up examination. She underwent ultrasound-guided core biopsy on 05/28/2021 for suspicious right breast density in the 10 o'clock position andwas found to have an infiltrating ductal carcinoma. She subsequently underwent a right breast lumpectomy with needle localization, sentinel node biopsy on 06/24/2021 pathology confirmed an infiltrating ductal carcinoma of the right breast, grade 1, 1.3 cm in diameter, ER/AZ positive, HER2 [place] negative, 1 of 4 nodes positive for metastatic disease; AJCC Stage (8th ed.):? pT1c N1a(sn)(i+). She was evaluated by Dr. Mora on 07/03/2021. Genomic testing with MammaPrint was performed and she was determined to have an absolute chemotherapy benefit greater than 12%. Five year metastasis free survival with chemo hormonal therapy is 96%. The decision was made to proceed with chemotherapy with dose dense AC followed by Taxol. This was followed by radiation therapy performed at [facility] completed on 03/18/2022. She was on tamoxifen but developed blood clots and therefore was switched to letrozole. Annual mammogram obtained on 05/07/2023 revealed postoperative changes in the right breast but no new suspicious changes in either breast (BI-RADS 2). Diagnostic mammogram in 12 months is recommended. She feels well and denies any ongoing breast symptoms. [facility] Medical History Overweight (BMI 25.0-29.9) Microangiopathy Left leg paresthesias COVID-19 virus infection Schizoaffective disorder Colon cancer screening Breast cancer Arthritis Depression Tachycardia Hiatal hernia Hearing loss Facial paralysis Schizophrenia Obesity Iron deficiency anemia Hypertension Hypercholesterolemia GERD (gastroesophageal reflux disease) Type 2 diabetes mellitus with hyperglycemia Surgical History History of removal of Port-a-Cath History of lumpectomy of right breast Hemiparesis History of eye surgery History of placement of ear tubes Family History Father Medical history unknown Mother Medical history unknown Social History Household Members: Significant Other Housing: Condominium Are you a primary overnight caregiver to a significant other at home: No Do you presently have visiting nurse or other home services: Yes Alcohol intake: current Alcohol intake frequency: does not drink Alcohol type: beer and wine Patient Tobacco Use Status: Never used Tobacco e-Cigarette/Vaping Use: Never Used Second Hand Smoke Exposure: No Advance Directives Date on File: 06/24/21 service: No Current occupational status: unemployed Sexual orientation: Lesbian/Reyes/Homosexual Cognitive needs: No Hearing needs: Yes (hearing aides) Vision needs: Yes (glasses) Female Reproductive History Menstrual Age of Menarche: 13 Review of Systems Const Denies chills, Denies fever(s), Denies headache(s) and Denies poor appetite ENT Denies dizziness and Denies headache(s) Card Denies chest pain, Denies rapid heart rate, Denies palpitations and Denies slow heart rate Resp Denies chest congestion, Denies cough, Denies pain on inspiration and Denies wheezing GI Denies abdominal pain, Denies bloating, Denies change in stool character, Denies constipation, Denies diarrhea, Denies nausea, Denies vomiting and Denies hematemesis Musc Denies back pain, Denies arthralgias, Denies joint swelling and Denies numbness Skin/Breast Denies change in pigmentation, Denies erythema and Denies rash Neuro Details: Left facial paralysis Denies dizziness, Denies headache(s) and Denies numbness Psych Denies anxiety and Denies depression Endo Details: Diabetes type 2 Denies palpitations Yan/Lymph Denies easy bleeding, Denies easy bruising and Denies lymphadenopathy Aller/Immun Denies wheezing Physical Exam Const General: no acute distress and well developed Nutritional Appearance: well nourished Orientation/consciousness: patient oriented x3 Limitations: no limitations Chest Other: Right breast incision is clean, dry, and intact without redness or discharge. Post radiation change noted in the skin with no open wounds. Axillary incision is also clean and intact. No palpable mass, nipple discharge, or enlarged lymph nodes. Left breast reveals no skin change, nipple retraction, nipple discharge, palpable mass, or enlarged lymph node. Chest/axillae images: 2 1. 2. Resp Effort & Inspection: normal respiratory effort, no audible wheezes, no cough and no respiratory distress Skin Other: Warm and dry, no rash Neuro General: patient oriented x3 Extrem Other: No edema Assessment & Plan Assessment & Plan (1) Invasive ductal carcinoma of right breast: Comment: Lumpectomy May 2021 Code(s): C50.911 - Malignant neoplasm of unspecified site of right female breast Plan Patient returns for follow-up breast examination after right breast lumpectomy with needle localization, right axillary sentinel node biopsy for infiltrating ductal carcinoma. She completed chemo and radiation therapy. Wounds are clean and intact with no evidence of tumor recurrence. Left breast is normal as well. She underwent her annual mammogram on 05/07/2023 which revealed postoperative changes in the right breast but no other suspicious findings in either breast (BI-RADS 2). Diagnostic mammogram in 12 months is recommended and has been scheduled for March 2024. I recommended she follow-up after the mammogram for routine breast examination. She is welcome to call sooner for any new concerns. Coding Level of Care Code Est Pt Level 3 (30398) Diagnoses Invasive ductal carcinoma of right breast C50.911
[2023-10-08 11:46] VITALS: BP 136/74; PULSE 99; BMI 34.3
== END 2023-10-08 11:56 | disposition home or self-care (01) ==
PROVIDERS: PCP Internal Medicine; Visit Provider Surgery
DX: C50.911 Malignant neoplasm of unspecified site of right female breast (principal)
CPT/HCPCS: 99213

== ENCOUNTER → 2023-10-08 11:24 | Outpatient (BNVA) | payer MEDICARE, MEDICAID, SELFPAY | PROVIDERS: PCP Internal Medicine; Visit Provider Surgery | DX: C50.911 Malignant neoplasm of unspecified site of right female breast (principal); Z92.21 Personal history of antineoplastic chemotherapy; Z92.3 Personal history of irradiation | CPT/HCPCS: 99212 ==

== ENCOUNTER 2023-10-29 09:23 | Outpatient (AMB) | payer MEDICARE, MEDICAID, SELFPAY ==
[2023-10-29 09:24] VITALS: BP 120/74; PULSE 100; O2SAT 97; BMI 34.6
--- NOTE | 2023-10-29 09:24 | A.OFFPC_ITS ---
Vital Signs 10/29/23 09:24 Height 5 ft 2 in Weight 189 lb 0.2 oz BMI 34.6 BP 120/74 Blood Pressure Location Lt brachial Position Sitting Pulse 100 Pulse Source Pulse Oximeter Pulse Oximetry (%) 97 Oxygen Delivery Method Room Air Intake Visit Reasons: DM Welt Stitcher Required: No Allergies lisinopril [LISINOPRIL] Allergy (Unknown, Verified 10/29/23 09:25) SWOLLEN LIPS, angioedema, swelling Tobacco use date assessed: 10/29/23 Dental Screening Dental Screen Date: 08/13/23 HPI DM HPI Details 53-year-old obese female with controlled diabetes mellitus GERD hypertension hypercholesterolemia schizoaffective disorder and breast cancer coming in for follow-up. Last seen in July 2023. Patient's mammogram is up-to-date Pap smear is up-to-date colonoscopy December 2022. For the breast cancer patient follows up with the surgeon lumpectomy done in May 2021. And has seen the Hematology-Oncology in July 2023 started adjuvant chemotherapy in 2021 completed in February 2022 letrozole 2.5 mg once a day for the neuropathy placed on Lyrica 50 mg twice a day left upper extremity DVT related to line placement completed 3 months of anticoagulation. [facility] Medical History Overweight (BMI 25.0-29.9) Microangiopathy Left leg paresthesias COVID-19 virus infection Schizoaffective disorder Colon cancer screening Breast cancer Arthritis Depression Tachycardia Hiatal hernia Hearing loss Facial paralysis Schizophrenia Obesity Iron deficiency anemia Hypertension Hypercholesterolemia GERD (gastroesophageal reflux disease) Type 2 diabetes mellitus with hyperglycemia Surgical History History of removal of Port-a-Cath History of lumpectomy of right breast Hemiparesis History of eye surgery History of placement of ear tubes Family History Father Medical history unknown Mother Medical history unknown Social History Household Members: Significant Other Housing: Condominium Are you a primary manager home healthcare to a significant other at home: No Do you presently have visiting nurse or other home services: Yes Alcohol intake: current Alcohol intake frequency: does not drink Alcohol type: beer and wine Patient Tobacco Use Status: Never used Tobacco e-Cigarette/Vaping Use: Never Used Second Hand Smoke Exposure: No Advance Directives Date on File: 06/24/21 service: No Current occupational status: unemployed Sexual orientation: Lesbian/Reyes/Homosexual Cognitive needs: No Hearing needs: Yes (hearing aides) Vision needs: Yes (glasses) Female Reproductive History Menstrual Age of Menarche: 13 Questionnaire Thrive Questionnaire Date Thrive assessed: 08/13/23 AUDIT C Alcohol Use Questionnaire (AUDIT-C) 1. How often do you have a drink containing alcohol?: Never 3. How often do you have six or more drinks on one occasion?: Never Total Score: 0 SPEEDY-7 AMB Questionnaire SPEEDY-7 Date SPEEDY - 7 assessed: 08/13/23 Source: Developed by Drs. Baldev Floyd, Елена Wolff, Sina Reyes and colleagues, with an educational patti from [employer]. Physical exam (Primary Care) Vital Signs: Last Vital Signs Pulse 100 10/29/23 09:24 BP 120/74 10/29/23 09:24 Pulse Ox 97 10/29/23 09:24 Oxygen Delivery Method Room Air 10/29/23 09:24 BMI result Body Mass Index 34.6 Tobacco/Smoking Status: Tobacco use Status Tobacco use date assessed 10/29/23 10/29/23 09:31 Patient Tobacco Use Status Never used Tobacco 10/29/23 09:31 e-Cigarette/Vaping Use Never Used 10/29/23 09:31 Thrive Assessment: Date of Thrive Assessment Date Thrive assessed 08/13/23 10/29/23 09:31 Const General: alert; No acute distress Eyes Conjunctivae: conjunctivae normal Resp Auscultation: clear to auscultation bilaterally Cardio Rate: regular rate Rhythm: regular rhythm GI Inspection: Yes normal to inspection Extrem General: Yes normal to inspection and No edema Results AMB Hemoglobin A1c AMB Hemoglobin A1c 6.4 % Last Edit by JUDY Morris on 10/29/23 09:51 Results Reviewed Results Reviewed: Laboratory Last Values Hgb A1c (Clinic) 6.4 % (4.0-6.0) H 10/29/23 09:48 Assessment and Plan Assessment & Plan (1) Type 2 diabetes mellitus with hyperglycemia: Comment: Dr. Sanz Code(s): E11.65 - Type 2 diabetes mellitus with hyperglycemia Qualifiers: Diabetes mellitus joint terminal attack controller insulin use: without senior living use Qualified Code(s): E11.65 - Type 2 diabetes mellitus with hyperglycemia Plan: Decrease the amount of carbohydrate intake, pasta, bread, rice and potatoes are all sugar and that is aside from all the sweet stuff, remember that fruits are good but they are Sweet also. Hemoglobin A1c goal of less than 6.5. Patient on Jardiance 25 mg once a day metformin 1000 mg twice a day (2) GERD (gastroesophageal reflux disease): Code(s): K21.9 - Gastro-esophageal reflux disease without esophagitis Qualifiers: Esophagitis presence: without esophagitis Qualified Code(s): K21.9 - Gastro-esophageal reflux disease without esophagitis Plan: Avoid the foods that causes that usually spicy foods, tomato products, juices, coffee, soda and foods that your sensitive to. After eating do not lie down, allow 3-4 hours before in lie down. And keep the head of bed above 30 degrees to avoid the acid from going up. (3) Hypercholesterolemia: Code(s): E78.00 - Pure hypercholesterolemia, unspecified Plan: Avoid fried foods, chicken skin, eggs, butter margarine, pastries and meat. Be it pork or beef they have a lot of cholesterol LDL goal of less than 100 and triglyceride of less than 150. Last blood work was December 2022 (4) Hypertension: Code(s): I10 - Essential (primary) hypertension Qualifiers: Hypertension type: essential hypertension Qualified Code(s): I10 - Essential (primary) hypertension Plan: Continue with blood pressure medication. Decrease salt intake and exercise continue with losartan 25 mg once a day (5) Obesity: Comment: Pt also has T2DM Code(s): E66.9 - Obesity, unspecified Qualifiers: Obesity type: due to excess calories Obesity classification: adult class 2 (BMI 35 - 39.9) Serious obesity comorbidity presence: with serious comorbidity Body mass index: BMI 38.0-38.9 Qualified Code(s): E66.01 - Morbid (severe) obesity due to excess calories; Z68.38 - Body mass index [BMI] 38.0- 38.9, adult Plan: Diet and exercise (6) Schizoaffective disorder: Comment: SERVICENET to CHD (09/2022) Code(s): F25.9 - Schizoaffective disorder, unspecified Plan: Continue to follow-up with psychiatry and counseling (7) Invasive ductal carcinoma of right breast: Comment: Lumpectomy May 2021 Code(s): C50.911 - Malignant neoplasm of unspecified site of right female breast Plan: Patient follows up with the surgeon as well as the Hematology-Oncology. Orders: Orders Complete Blood Count Auto Diff 3 Months E11.65 - Type 2 diabetes mellitus with hyperglycemia Creatinine Urine 3 Months E11.65 - Type 2 diabetes mellitus with hyperglycemia Microalbumin, Random (w Creat) 3 Months E11.65 - Type 2 diabetes mellitus with hyperglycemia Thyroid Stimulating Hormone 3 Months E11.65 - Type 2 diabetes mellitus with hyperglycemia Vitamin B12 and Folate 3 Months E11. - Type 2 diabetes mellitus with hyperglycemia Hemoglobin A1c 3 Months E11.65 - Type 2 diabetes mellitus with hyperglycemia AMB Hemoglobin A1c Today E11.65 - Type 2 diabetes mellitus with hyperglycemia Comprehensive Met. Panel 3 Months E11. - Type 2 diabetes mellitus with hyperglycemia Lipid Panel 3 Months E11.65 - Type 2 diabetes mellitus with hyperglycemia, E78.00 - Pure hypercholesterolemia, unspecified Free T4 (Free Thyroxine) 3 Months E11.65 - Type 2 diabetes mellitus with hyperglycemia Vitamin D 25-OH Total 3 Months E11.65 - Type 2 diabetes mellitus with hyperglycemia Medications: Changed From blood sugar diagnostic (FreeStyle Lite Strips) As directed check the BS twice daily 100 ea 3RF E11.65 - Type 2 diabetes mellitus with hyperglycemia To blood sugar diagnostic (FreeStyle Lite Strips) As directed check the BS once daily 100 ea 3RF E11.65 - Type 2 diabetes mellitus with hyperglycemia From lancets (FreeStyle Lancets) Twice a day 2 boxes 3RF Check the blood sugars twice a day E11.65 - Type 2 diabetes mellitus with hyperglycemia To lancets (FreeStyle Lancets) once a day 100 ea 3RF Check the blood sugars twice a day E11.65 - Type 2 diabetes mellitus with hyperglycemia Coding Level of Care Code Est Pt Level 4 (65874) Diagnoses Type 2 diabetes mellitus with hyperglycemia, without long-term current use of insulin E11.65 Diabetes mellitus senior living insulin use: without joint terminal attack controller use Gastroesophageal reflux disease without esophagitis K21.9 Esophagitis presence: without esophagitis Hypercholesterolemia E78.00 Essential hypertension I10 Hypertension type: essential hypertension Class 2 severe obesity due to excess calories with serious comorbidity and body mass index (BMI) of 38.0 to 38.9 in adult E66.01; Z68.38 Obesity type: due to excess calories Obesity classification: adult class 2 (BMI 35 - 39.9) Serious obesity comorbidity presence: with serious comorbidity Body mass index: BMI 38.0-38.9 Schizoaffective disorder F25.9 Invasive ductal carcinoma of right breast C50.911
== END 2023-10-29 10:33 | disposition home or self-care (01) ==
PROVIDERS: PCP Internal Medicine; Visit Provider Internal Medicine
DX: E11.65 Type 2 diabetes mellitus with hyperglycemia (principal); E66.01 Morbid (severe) obesity due to excess calories; F25.9 Schizoaffective disorder, unspecified; Z68.38 Body mass index [BMI] 38.0-38.9, adult; C50.911 Malignant neoplasm of unspecified site of right female breast; K21.9 Gastro-esophageal reflux disease without esophagitis; E78.00 Pure hypercholesterolemia, unspecified; I10 Essential (primary) hypertension
CPT/HCPCS: 83036; 99214

== ENCOUNTER 2024-02-09 08:09 | Outpatient (REF) | payer MEDICARE, MEDICAID, SELFPAY ==
[2024-02-09 08:27] LABS: MANUAL DIFF FLAG NO
[2024-02-09 08:39] LABS: Basophils Percent Auto 0.5 % (0-2); Eosinophils Absolute Auto 0.1 X10*3/uL (0.0-0.4); Eosinophils Percent Auto 0.7 % (0-4); Hematocrit 38.4 % (37.0-47.0); Hemoglobin 12.7 g/dl (12.0-16.0); Imm Gran Abs Auto 0.03 X10*3/uL (0.00-0.03); Imm Gran Pct Auto 0.4 % (0.0-0.4); Lymphocytes Absolute Auto 1.5 X10*3/uL (1.2-4.9); Lymphocytes Percent Auto 18.8 % (20-40); Mean Corpuscular HGB Conc 33.1 g/dl (31.0-35.0); Mean Corpuscular Volume 90.8 fL (80.0-98.0); Mean Platelet Volume 9.8 fL (9.4-12.3); Monocytes Absolute Auto 0.4 X10*3/uL (0.1-1.2); Monocytes Percent Auto 5.1 % (2-11); Neutrophils Absolute Auto 6.1 x10*3/uL (2.0-8.3); Neutrophils Percent Auto 74.5 % (45-73); Platelet Count 280 X10*3/uL (160-400); Red Blood Count 4.23 X10*6/uL (4.20-5.50); White Blood Count 8.2 X10*3/uL (4.8-10.8)
[2024-02-09 09:11] LABS: Estimated Average Glucose 146 mg/dL; Hemoglobin A1c % 6.7 % (<6.0)
[2024-02-09 09:20] LABS: Alanine Aminotransferase 20 U/L (0-31); Albumin Level 4.6 g/dL (3.5-5.0); Alkaline Phosphatase 151 U/L (39-117); Anion Gap 17 (12-20); Aspartate Amino Transferase 19 U/L (5-31); Bilirubin Total 0.8 mg/dL (0.0-1.0); Blood Urea Nitrogen 15 mg/dL (9-16); Calcium 9.9 mg/dL (8.4-10.2); Carbon Dioxide 23 mmol/L (22-29); Chloride 107 mmol/L (96-108); Cholesterol 195 mg/dL (<200); Estimated Glomerular Filt Rate > 60; Glucose Random 151 mg/dL (60-115); HDL Cholesterol 72 mg/dL (>40); LDL Cholesterol Calculated 101 mg/dL (<100); Potassium 3.9 mmol/L (3.3-5.1); Sodium 143 mmol/L (135-145); Total Protein 7.4 g/dL (6.5-8.0); Triglycerides 112 mg/dL (<150)
[2024-02-09 09:37] LABS: Free T4 (Free Thyroxine) 1.07 ng/dL (0.71-1.85); Thyroid Stimulating Hormone 3.21 uIU/mL (0.32-4.0); Vitamin D 25-OH Total 44.1 ng/mL (>30)
[2024-02-09 09:51] LABS: Microalbum/Creatinine Ratio Ur 6.8 ug/mg cr (<30)
[2024-02-09 10:49] LABS: Folate 15.8 ng/mL (> or = 4.0); Vitamin B12 834 pg/mL (200-900)
== END 2024-02-09 08:10 | disposition home or self-care (01) ==
LOC: HO.LAB 08:09
PROVIDERS: PCP Internal Medicine; Visit Provider Internal Medicine
DX: E11.65 Type 2 diabetes mellitus with hyperglycemia (principal); E78.00 Pure hypercholesterolemia, unspecified
CPT/HCPCS: 36415; 80053; 80061; 82043; 82306; 82570; 82607; 82746; 83036; 84439; 84443; 85025

== ENCOUNTER 2024-02-16 14:53 | Outpatient (AMB) | payer MEDICARE, MEDICAID, SELFPAY ==
[2024-02-16 15:03] VITALS: BP 124/80; PULSE 85; O2SAT 98; BMI 35.7
--- NOTE | 2024-02-16 15:03 | A.OFFPC_ITS ---
Vital Signs 02/16/24 15:03 Height 5 ft 2 in Weight 195 lb BMI 35.7 BP 124/80 Blood Pressure Location Lt brachial Position Sitting Pulse 85 Pulse Source Pulse Oximeter Pulse Oximetry (%) 98 Oxygen Delivery Method Room Air Intake Visit Reasons: 3mof\u Supervisor Photoengraving: Not Required per policy Accompanied by: Self / Same As Patient Allergies lisinopril [LISINOPRIL] Allergy (Unknown, Verified 02/16/24 15:03) SWOLLEN LIPS, angioedema, swelling Tobacco use date assessed: 10/29/23 Dental Screening Dental Screen Date: 08/13/23 HPI 3mof\u HPI Details 53-year-old obese female with controlled diabetes mellitus GERD hypercholesterolemia hypertension schizoaffective disorder and history of breast cancer right coming in for follow-up. Last seen in October 2023. Patient's mammogram is up-to-date colonoscopy up-to-date. For the breast cancer 2020 being seen by hematology oncology February 09 underwent right breast lumpectomy with sentinel node biopsy in 06/15/2021 adjuvant chemotherapy July 2021 radiation therapy February 2022 Lupron november 2022 letrozole 02/12/2023 had neuropathy secondary to chemotherapy placed on Lyrica 50 mg twice a day history of left upper extremity DVT completed 3 months of anticoagulation. Most likely from tamoxifen. Mammogram 05/15/2024. [facility] Medical History Overweight (BMI 25.0-29.9) Microangiopathy Left leg paresthesias COVID-19 virus infection Schizoaffective disorder Colon cancer screening Breast cancer Arthritis Depression Tachycardia Hiatal hernia Hearing loss Facial paralysis Schizophrenia Obesity Iron deficiency anemia Hypertension Hypercholesterolemia GERD (gastroesophageal reflux disease) Type 2 diabetes mellitus with hyperglycemia Surgical History History of removal of Port-a-Cath History of lumpectomy of right breast Hemiparesis History of eye surgery History of placement of ear tubes Family History Father Medical history unknown Mother Medical history unknown Social History Household Members: Significant Other Housing: Condominium Are you a primary ambulatory care coordinator to a significant other at home: No Do you presently have visiting nurse or other home services: Yes Alcohol intake: current Alcohol intake frequency: does not drink Alcohol type: beer and wine Patient Tobacco Use Status: Never used Tobacco e-Cigarette/Vaping Use: Never Used Second Hand Smoke Exposure: No Advance Directives Date on File: 06/24/21 service: No Current occupational status: unemployed Sexual orientation: Lesbian/Reyes/Homosexual Cognitive needs: No Hearing needs: Yes (hearing aides) Vision needs: Yes (glasses) Female Reproductive History Menstrual Age of Menarche: 13 Questionnaire Thrive Questionnaire Date Thrive assessed: 08/13/23 SPEEDY-7 AMB Questionnaire SPEEDY-7 Date SPEEDY - 7 assessed: 08/13/23 Source: Developed by Drs. Baldev Floyd, Елена Wolff, Sina Reyes and colleagues, with an educational patti from [employer]. Physical exam (Primary Care) Vital Signs: Last Vital Signs Pulse 85 02/16/24 15:03 BP 124/80 02/16/24 15:03 Pulse Ox 98 02/16/24 15:03 Oxygen Delivery Method Room Air 02/16/24 15:03 BMI result Body Mass Index 35.7 Tobacco/Smoking Status: Tobacco use Status Tobacco use date assessed 10/29/23 02/16/24 15:04 Patient Tobacco Use Status Never used Tobacco 02/16/24 15:04 e-Cigarette/Vaping Use Never Used 02/16/24 15:04 Thrive Assessment: Date of Thrive Assessment Date Thrive assessed 08/13/23 02/16/24 15:04 Const General: alert; No acute distress Eyes Conjunctivae: conjunctivae normal Resp Auscultation: clear to auscultation bilaterally Cardio Rate: regular rate Rhythm: regular rhythm GI Inspection: Yes normal to inspection Extrem General: Yes normal to inspection and No edema Assessment and Plan Assessment & Plan (1) Type 2 diabetes mellitus with hyperglycemia: Comment: Dr. Sanz Code(s): E11.65 - Type 2 diabetes mellitus with hyperglycemia Qualifiers: Diabetes mellitus penitentiary insulin use: without penitentiary use Qualified Code(s): E11.65 - Type 2 diabetes mellitus with hyperglycemia Plan: Decrease the amount of carbohydrate intake, pasta, bread, rice and potatoes are all sugar and that is aside from all the sweet stuff, remember that fruits are good but they are Sweet also. Hemoglobin A1c goal of less than 6.5 patient on Jardiance 25 mg once a day metformin a 1000 mg twice a day discussed with the patient that the numbers are increased in need to eat better (2) GERD (gastroesophageal reflux disease): Code(s): K21.9 - Gastro-esophageal reflux disease without esophagitis Qualifiers: Esophagitis presence: without esophagitis Qualified Code(s): K21.9 - Gastro-esophageal reflux disease without esophagitis Plan: Avoid the foods that causes that usually spicy foods, tomato products, juices, coffee, soda and foods that your sensitive to. After eating do not lie down, allow 3-4 hours before in lie down. And keep the head of bed above 30 degrees to avoid the acid from going up. (3) Hypercholesterolemia: Code(s): E78.00 - Pure hypercholesterolemia, unspecified Plan: Avoid fried foods, chicken skin, eggs, butter margarine, pastries and meat. Be it pork or beef they have a lot of cholesterol patient on simvastatin 5 mg once a day question of increased LDL. Discussed with the patient the increase in LDL advised to eat better declined additional medication. Will retest in 3 months (4) Hypertension: Code(s): I10 - Essential (primary) hypertension Qualifiers: Hypertension type: essential hypertension Qualified Code(s): I10 - Essential (primary) hypertension Plan: Continue with blood pressure medication. Decrease salt intake and exercise on losartan 25 mg once a day (5) Schizoaffective disorder: Comment: SERVICENET to CHD (09/2022) Code(s): F25.9 - Schizoaffective disorder, unspecified Plan: Continued to have counseling and therapy on Latuda, clozapine and lorazepam (6) Invasive ductal carcinoma of right breast: Comment: Lumpectomy May 2021 Code(s): C50.911 - Malignant neoplasm of unspecified site of right female breast Plan: Patient being followed up by hematology and of the year mammogram presently on letrozole Orders: Orders Lipid Panel 3 Months E78.00 - Pure hypercholesterolemia, unspecified Comprehensive Met. Panel 3 Months E78.00 - Pure hypercholesterolemia, unspecified Hemoglobin A1c 3 Months E78.00 - Pure hypercholesterolemia, unspecified Coding Level of Care Code Est Pt Level 4 (86491) Diagnoses Type 2 diabetes mellitus with hyperglycemia, without long-term current use of insulin E11.65 Diabetes mellitus penitentiary insulin use: without penitentiary use Gastroesophageal reflux disease without esophagitis K21.9 Esophagitis presence: without esophagitis Hypercholesterolemia E78.00 Essential hypertension I10 Hypertension type: essential hypertension Schizoaffective disorder F25.9 Invasive ductal carcinoma of right breast C50.911
== END 2024-02-16 15:53 | disposition home or self-care (01) ==
PROVIDERS: PCP Internal Medicine; Visit Provider Internal Medicine
DX: E11.65 Type 2 diabetes mellitus with hyperglycemia (principal); F25.9 Schizoaffective disorder, unspecified; C50.911 Malignant neoplasm of unspecified site of right female breast; K21.9 Gastro-esophageal reflux disease without esophagitis; E78.00 Pure hypercholesterolemia, unspecified; I10 Essential (primary) hypertension
CPT/HCPCS: 99214

== ENCOUNTER 2024-04-12 13:51 | Outpatient (AMB) | payer MEDICARE, MEDICAID, SELFPAY ==
[2024-04-12 14:08] VITALS: BMI 36.4
--- NOTE | 2024-04-12 14:08 | MHC.OFFVIS ---
Vital Signs 04/12/24 14:08 Height 5 ft 2 in Weight 199 lb BMI 36.4 Intake Visit Reasons: 6 mo f/u Intake Note: Patient presents for follow up. Allergies lisinopril [LISINOPRIL] Allergy (Unknown, Verified 04/12/24 14:08) SWOLLEN LIPS, angioedema, swelling Medication List - Last Reconciled 04/12/24 by CHAR Brizuela blood sugar diagnostic (FreeStyle Lite Strips) As directed check the BS once daily blood-glucose meter (FreeStyle Lite Meter kit) As directed cholecalciferol (vitamin D3) (Vitamin D3) 10 mcg PO DAILY clozapine 300 mg PO TID docusate sodium 100 mg PO BEDTIME empagliflozin (Jardiance) 25 mg PO DAILY lancets (FreeStyle Lancets) once a day letrozole 2.5 mg PO DAILY leuprolide (3 month) (Lupron Depot) 22.5 mg IM [id number] lorazepam 1 mg PO BID losartan 25 mg PO DAILY 90 days lurasidone (Latuda) 80 mg PO 1800 metformin 1,000 mg PO BID multivitamin 1 tab PO DAILY [[place] 3 Fish Oil 1 tab PO DAILY] omeprazole 20 mg PO DAILY pregabalin (Lyrica) 50 mg PO BID simvastatin 5 mg PO BEDTIME HPI Comments Details: 53-yr-old female presents for f/u visit of peripheral neuropathy. Pt is accompanied by her partner, Magy. Pt previously seen by our former colleague, Salas Burrell NP. Pt reports her neuropathy symptoms have increased. She describes this as jony feet, L > R- feel cold and wet, and uncomfortable. This is worse ta night, when she is not as active. Also tingling in her left fingers. No significant progression. She may have more swelling in LLE, some of her shes no longer fit her Left foot. Recent B-12, folate, TSH- BMP- NL. She had LE EMG/NCS [place] [address] Guan- no significant findings. She did recently do PT for gait, which was helpful. She takes pregabalin 50mg bid helps some but not fully. She takes Nervive at bedtime- has helped but not fully. She may take Ibuprofen 600mg qhs prn- which does help. Her neuropathy s/s started during and more so a few months after her chemotherapy tx for breast cancer in 2021. Initial Dx in May 2021. She has had diabetes type II for 15-20yrs. Most recent HgA1C was 6.7%. She has had left sided hemiparesis- initially observed when she came here from [place] at age 3. This has not had clear progression over time. She had been feeling more tired in the am- her psych providers have been adjusting her psychiatric tx's- which has been more helpful. [facility] Medical History Overweight (BMI 25.0-29.9) Microangiopathy Left leg paresthesias COVID-19 virus infection Schizoaffective disorder Colon cancer screening Breast cancer Arthritis Depression Tachycardia Hiatal hernia Hearing loss Facial paralysis Schizophrenia Obesity Iron deficiency anemia Hypertension Hypercholesterolemia GERD (gastroesophageal reflux disease) Type 2 diabetes mellitus with hyperglycemia Surgical History History of removal of Port-a-Cath History of lumpectomy of right breast Hemiparesis History of eye surgery History of placement of ear tubes Family History Father Medical history unknown Mother Medical history unknown Social History Household Members: Significant Other [facility] Are you a primary animal caregiver to a significant other at home: No Do you presently have visiting nurse or other home services: Yes Alcohol intake: current Alcohol intake frequency: does not drink Alcohol type: beer and wine Patient Tobacco Use Status: Never used Tobacco e-Cigarette/Vaping Use: Never Used Second Hand Smoke Exposure: No Advance Directives Date on File: 06/24/21 service: No Current occupational status: unemployed Sexual orientation: Lesbian/Reyes/Homosexual Cognitive needs: No Hearing needs: Yes (hearing aides) Vision needs: Yes (glasses) Female Reproductive History Menstrual Age of Menarche: 13 Physical Exam Vital Signs: BMI result Body Mass Index 36.4 Const General: cooperative and no acute distress Orientation/consciousness: patient oriented x3 Resp Effort & Inspection: normal respiratory effort and able to speak in complete sentences Neuro General: patient oriented x3 Cranial nerves: Yes CN's II-XII intact bilaterally Cognition (Neuro): normal cognition Psych Appearance: grossly normal Mental Status: mental status grossly normal Speech and movement: Normal speech and movement present Affect: normal affect Attitude: cooperative Assessment & Plan Assessment & Plan (1) Peripheral neuropathy: Code(s): G62.9 - Polyneuropathy, unspecified Category: Medical (2) Left hemiparesis: Code(s): G81.94 - Hemiplegia, unspecified affecting left nondominant side Category: Medical Plan Reviewed previous LE EMG- no significant findings per Dr Guan's previous note. 11/20/2021, Brain MRI w/o- Mild underlying microangiopathy and generalized cerebral volume loss. 02/09/24 B-12, folate, TSH- BMP- NL. Increase Pregabalin from 100mg bid to 100mg tid at 8am, 8pm, 10pm (or alternately 100mg qam and 200mg qhs) Continue PT exercises. Futire considerations- f/u sleep study. Medications: Changed From pregabalin (Lyrica) 50 mg PO BID 60 caps 3RF G62.9 - Polyneuropathy, unspecified To pregabalin (Lyrica) 50 mg PO TID 30 days 90 caps 3RF G62.9 - Polyneuropathy, unspecified Coding Level of Care Code Est Pt Level 4 (44468) Diagnoses Peripheral neuropathy G62.9 Left hemiparesis G81.94
== END 2024-04-12 15:02 | disposition home or self-care (01) ==
PROVIDERS: PCP Internal Medicine; Visit Provider Nurse Practitioner Family
DX: G62.9 Polyneuropathy, unspecified (principal); G81.94 Hemiplegia, unspecified affecting left nondominant side
CPT/HCPCS: 99214

== ENCOUNTER → 2024-04-12 13:51 | Outpatient (BNVA) | payer MEDICARE, MEDICAID, SELFPAY | PROVIDERS: PCP Internal Medicine; Visit Provider Nurse Practitioner Family | DX: G62.9 Polyneuropathy, unspecified (principal); G81.94 Hemiplegia, unspecified affecting left nondominant side | CPT/HCPCS: 99212 ==

== ENCOUNTER 2024-04-28 11:28 | Outpatient (REF) | payer MEDICARE, MEDICAID, SELFPAY ==
[2024-04-28 13:28] LABS: Estimated Average Glucose 143 mg/dL; Hemoglobin A1C 155.0812 umol/L; Hemoglobin A1c % 6.6 % (<6.0); Total Hemoglobin (HGBA1C) 3167.2145 umol/L
[2024-04-28 13:38] LABS: Alanine Aminotransferase 25 U/L (0-31); Albumin Level 4.3 g/dL (3.5-5.0); Alkaline Phosphatase 142 U/L (39-117); Anion Gap 16 (12-20); Aspartate Amino Transferase 27 U/L (5-31); Bilirubin Total 0.5 mg/dL (0.0-1.0); Blood Urea Nitrogen 13 mg/dL (9-16); Calcium 9.6 mg/dL (8.4-10.2); Carbon Dioxide 22 mmol/L (22-29); Chloride 110 mmol/L (96-108); Cholesterol 193 mg/dL (<200); Estimated Glomerular Filt Rate > 60; Glucose Random 125 mg/dL (60-115); HDL Cholesterol 73 mg/dL (>40); LDL Cholesterol Calculated 103 mg/dL (<100); Potassium 4.2 mmol/L (3.3-5.1); Sodium 144 mmol/L (135-145); Total Protein 7.5 g/dL (6.5-8.0); Triglycerides 85 mg/dL (<150)
== END 2024-04-28 11:29 | disposition home or self-care (01) ==
LOC: HO.HMGCLDS 11:28
PROVIDERS: PCP Internal Medicine; Visit Provider Internal Medicine
DX: E78.00 Pure hypercholesterolemia, unspecified (principal); Z13.1 Encounter for screening for diabetes mellitus
CPT/HCPCS: 36415; 80053; 80061; 83036

== ENCOUNTER 2024-05-05 09:25 | Outpatient (AMB) | payer MEDICARE, MEDICAID, SELFPAY ==
[2024-05-05 09:27] VITALS: BP 138/70; PULSE 95; O2SAT 96; BMI 36.6
--- NOTE | 2024-05-05 09:27 | A.OFFPC_ITS ---
Vital Signs 3 05/05/24 09:27 Height 5 ft 2 in Weight 200 lb BMI 36.6 BP 138/70 Blood Pressure Location Lt brachial Position Sitting Pulse 95 Pulse Source Pulse Oximeter Pulse Oximetry (%) 96 Oxygen Delivery Method Room Air Intake Visit Reasons: 3 Month F/U Intake Note: Patient is here to follow up on 3 months Riding Double Required: No Allergies lisinopril [LISINOPRIL] Allergy (Unknown, Verified 05/05/24 09:27) SWOLLEN LIPS, angioedema, swelling Tobacco use date assessed: 10/29/23 Dental Screening Dental Screen Date: 08/13/23 HPI 3 Month F/U 2 HPI0 Details 53-year-old female with past medical his tory of controlled diabetes mellitus, GERD, hypercholesterolemia, hypertension, schizoaffective disorder, and history of breast cancer coming in for follow up.? In review of the notes, patient was recently seen by [facility]rology for follow up on peripheral neuropathy advised to increase pregabalin to TID and continue physical therapy. Patient states she has been doing well on the pregabalin change in denies any side effects. She has noticed an improvement in her neuropathy since starting this medication. 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 She does have 1 concern today to bumps on the upper mid back area that her partner 1st noticed a couple of days ago. Denies pain, itchiness, drainage and bumps are not bothersome. Unsure if they have been growing or changing. [facility] Medical History Overweight (BMI 25.0-29.9) Microangiopathy Left leg paresthesias COVID-19 virus infection Schizoaffective disorder Colon cancer screening Breast cancer Arthritis Depression Tachycardia Hiatal hernia Hearing loss Facial paralysis Schizophrenia Obesity Iron deficiency anemia Hypertension Hypercholesterolemia GERD (gastroesophageal reflux disease) Type 2 diabetes mellitus with hyperglycemia Surgical History History of removal of Port-a-Cath History of lumpectomy of right breast Hemiparesis History of eye surgery History of placement of ear tubes Family History Father Medical history unknown Mother Medical history unknown Social History Household Members: Significant Other Housing: Condominium Are you a primary director of primary care to a significant other at home: No Do you presently have visiting nurse or other home services: Yes Alcohol intake: current Alcohol intake frequency: does not drink Alcohol type: beer and wine Patient Tobacco Use Status: Never used Tobacco e-Cigarette/Vaping Use: Never Used Second Hand Smoke Exposure: No Advance Directives Date on File: 06/24/21 service: No Current occupational status: unemployed Sexual orientation: Lesbian/Reyes/Homosexual Cognitive needs: No Hearing needs: Yes (hearing aides) Vision needs: Yes (glasses) Female Reproductive History Menstrual Age of Menarche: 13 Questionnaire Thrive Questionnaire Date Thrive assessed: 08/13/23 Are you currently unemployed and looking for a job?: Yes AUDIT C Alcohol Use Questionnaire (AUDIT-C) 2. How many drinks containing alcohol do you have on a typical day when you are drinking?: 1 or 2 3. How often do you have six or more drinks on one occasion?: Never Total Score: 0 SPEEDY-7 AMB Questionnaire SPEEDY-7 Date SPEEDY - 7 assessed: 08/13/23 Source: Developed by Drs. Baldev Floyd, Елена Wolff, Sina Reyes and colleagues, with an educational patti from [employer]. Review of Systems Const Denies fever(s) and Denies headache(s) Eyes Reports no additional complaints ENT Denies dizziness and Denies headache(s) Card Denies chest pain, Denies lightheadedness and Denies dyspnea Resp Denies dyspnea GI Denies abdominal pain, Denies constipation, Denies diarrhea, Denies nausea and Denies vomiting Reports no additional complaints Musc Reports no additional complaints and Denies abnormal gait Skin/Breast Reports system reviewed and no additional complaints, except as documented Neuro Denies abnormal gait, Denies dizziness and Denies headache(s) Psych Reports no additional complaints Physical exam (Primary Care) Vital Signs: Last Vital Signs Pulse 95 05/05/24 09:27 BP 138/70 05/05/24 09:27 Pulse Ox 96 05/05/24 09:27 Oxygen Delivery Method Room Air 05/05/24 09:27 BMI result Body Mass Index 36.6 Tobacco/Smoking Status: Tobacco use Status Tobacco use date assessed 10/29/23 05/05/24 09:34 Patient Tobacco Use Status Never used Tobacco 05/05/24 09:34 e-Cigarette/Vaping Use Never Used 05/05/24 09:34 Thrive Assessment: Date of Thrive Assessment Date Thrive assessed 08/13/23 05/05/24 09:34 Const General: cooperative, healthy appearing, comfortable and no acute distress Orientation/consciousness: patient oriented x3 HENMT Head: Yes normocephalic Ears: hearing grossly normal bilaterally General nose exam: Normal external nose present Eyes General: appearance normal, both eyes and all related structures Conjunctivae: conjunctivae normal Neck Neck: Yes full ROM and Yes no lymphadenopathy Resp Effort & Inspection: normal respiratory effort Auscultation: clear to auscultation bilaterally, no crackles, no rales, no rhonchi and no wheezes Cardio Rate: regular rate Rhythm: regular rhythm Skin Other: To isolated raised bumps on back without crusting, drainage, evidence of infection Full body images: 2 1. Scab-like bump 2. Scab-like bump Neuro General: patient oriented x3 Gait exam (Neuro): Normal gait present Extrem General: Yes normal to inspection, Yes full ROM and No edema Psych Affect: normal affect Attitude: cooperative Insight: Good insight present (Psych) Judgement: Good judgement present (Psych) Coding Level of Care Code Est Pt Level 4 (98810) Diagnoses Peripheral neuropathy G62.9 Class 2 severe obesity due to excess calories with serious comorbidity and body mass index (BMI) of 38.0 to 38.9 in adult E66.01; Z68.38 Obesity type: due to excess calories Obesity classification: adult class 2 (BMI 35 - 39.9) Serious obesity comorbidity presence: with serious comorbidity Body mass index: BMI 38.0-38.9 Essential hypertension I10 Hypertension type: essential hypertension Hypercholesterolemia E78.00 Gastroesophageal reflux disease without esophagitis K21.9 Esophagitis presence: without esophagitis Type 2 diabetes mellitus with hyperglycemia, without long-term current use of insulin E11.65 Diabetes mellitus chcf insulin use: without chcf use Bumps on skin L98.9 Assessment & Plan Assessment & Plan (1) Peripheral neuropathy: Code(s): G62.9 - Polyneuropathy, unspecified Category: Medical Plan: Continue to follow with Neurology and continue on pregabalin TID. Podiatry appointment later this month. (2) Obesity: Comment: Pt also has T2DM Code(s): E66.9 - Obesity, unspecified Category: Medical Qualifiers: Obesity type: due to excess calories Obesity classification: adult class 2 (BMI 35 - 39.9) Serious obesity comorbidity presence: with serious comorbidity Body mass index: BMI 38.0-38.9 Qualified Code(s): E66.01 - Morbid (severe) obesity due to excess calories; Z68.38 - Body mass index [BMI] 38.0- 38.9, adult Plan: Healthy diet and regular exercise is encouraged. (3) Hypertension: Code(s): I10 - Essential (primary) hypertension Category: Medical Qualifiers: Hypertension type: essential hypertension Qualified Code(s): I10 - Essential (primary) hypertension Plan: Continue on current blood pressure medication. Avoid salt intake and encourage healthy diet and regular exercise. Blood pressure at goal today 138/70. (4) Hypercholesterolemia: Code(s): E78.00 - Pure hypercholesterolemia, unspecified Category: Medical Plan: Avoid foods that are high in cholesterol such as red meat, fried foods, eggs and baked goods. Triglyceride goal of less than on 50 and LDL goal of less than 100. Cholesterol on previous labs have been at goal and elevated on last labs to 108 LDL. Patient endorses poor diet. Advised to make dietary changes and repeat cholesterol in 3 months declined additional medication. (5) GERD (gastroesophageal reflux disease): Code(s): K21.9 - Gastro-esophageal reflux disease without esophagitis Category: Medical Qualifiers: Esophagitis presence: without esophagitis Qualified Code(s): K21.9 - Gastro-esophageal reflux disease without esophagitis Plan: Avoid trigger foods such as citrus, tomato products, soda, caffeine, spicy foods and other foods that may be irritating to your stomach. Avoid laying flat 3-4 hours after eating and elevate the head of the bed 30 degrees to prevent acid from moving into the esophagus. Continue on omeprazole (6) Type 2 diabetes mellitus with hyperglycemia: Comment: Dr. Sanz Code(s): E11.65 - Type 2 diabetes mellitus with hyperglycemia Category: Medical Qualifiers: Diabetes mellitus terminal system operator insulin use: without terminal system operator use Q ualified Code(s): E11.65 - Type 2 diabetes mellitus with hyperglycemia Plan: Decrease the amount of carbohydrates such as pasta, bread, rice, and potatoes and limit the amount of sweets. Although fruits are generally healthy they should be eaten in moderation as they are still high in sugar. Hemoglobin A1c goal of less than 7%. A1c at goal on last labs continue on current medication regimen. (7) Bumps on skin: Code(s): L98.9 - Disorder of the skin and subcutaneous tissue, unspecified Category: Medical Plan: Patient has 2 isolated less than 1 cm bumps on upper middle back that appear to be scab like. Advised patient to continue to monitor for growth and additional symptoms with these bumps and reach out to the office if they change or become bothersome. Consider referral to Dermatology. Plan This note was constructed using voice recognition software. While every effort has been made to ensure accuracy and boring machine set up operator, still areas may have been included sometimes these areas may affect the content or meeting of the given symptoms. Total time spent caring for the patient today was 30 minutes. This includes time spent before the visit reviewing the chart, time spent during the visit, and time spent after the visit and documentation. Orders: Orders 2 Lipid Panel 3 Months Z00.00 - Encounter for general adult medical examination without abnormal findings
== END 2024-05-05 09:55 | disposition home or self-care (01) ==
PROVIDERS: PCP Internal Medicine
DX: G62.9 Polyneuropathy, unspecified (principal); E66.812 Obesity, class 2; E11.65 Type 2 diabetes mellitus with hyperglycemia; Z68.38 Body mass index [BMI] 38.0-38.9, adult; I10 Essential (primary) hypertension; E78.00 Pure hypercholesterolemia, unspecified; K21.9 Gastro-esophageal reflux disease without esophagitis; L98.9 Disorder of the skin and subcutaneous tissue, unspecified

== ENCOUNTER → 2024-05-05 09:25 | Outpatient (BNVA) | payer MEDICARE, MEDICAID, SELFPAY | PROVIDERS: PCP Internal Medicine | DX: C50.911 Malignant neoplasm of unspecified site of right female breast (principal); G62.9 Polyneuropathy, unspecified; E66.01 Morbid (severe) obesity due to excess calories; Z68.38 Body mass index [BMI] 38.0-38.9, adult; I10 Essential (primary) hypertension; E78.00 Pure hypercholesterolemia, unspecified; K21.9 Gastro-esophageal reflux disease without esophagitis; E11.65 Type 2 diabetes mellitus with hyperglycemia; L98.9 Disorder of the skin and subcutaneous tissue, unspecified; Z71.3 Dietary counseling and surveillance | CPT/HCPCS: 99212 ==

== ENCOUNTER 2024-05-05 14:01 | Outpatient (AMB) | payer MEDICARE, MEDICAID, SELFPAY ==
--- NOTE | 2024-05-05 14:03 | MHC.OFFVIS ---
Vital Signs 05/05/24 14:11 Height 5 ft 2 in Weight 204 lb BMI 37.3 BP 142/74 H Blood Pressure Location Lt brachial Position Sitting Pulse 92 Intake Visit Reasons: 6m br exam follow up Intake Note: Patient is seen in office for 6 month follow up visit, breast exam. Pt c/o: no concerns or changes mm sched: 05/11/24 @ 9am Information Systems Consultant Required: No Nozzle Tender: Nozzle Tender Present Accompanied by: Self / Same As Patient Allergies lisinopril [LISINOPRIL] Allergy (Unknown, Verified 05/05/24 14:05) SWOLLEN LIPS, angioedema, swelling Medication List - Last Reconciled 05/05/24 by Ivan Holden MD blood sugar diagnostic (FreeStyle Lite Strips) As directed check the BS once daily blood-glucose meter (FreeStyle Lite Meter kit) As directed cholecalciferol (vitamin D3) (Vitamin D3) 10 mcg PO DAILY clozapine 300 mg PO TID docusate sodium 100 mg PO BEDTIME empagliflozin (Jardiance) 25 mg PO DAILY lancets (FreeStyle Lancets) once a day letrozole 2.5 mg PO DAILY leuprolide (3 month) (Lupron Depot) 22.5 mg IM [id number] lorazepam 1 mg PO BID losartan 25 mg PO DAILY 90 days lurasidone (Latuda) 80 mg PO 1800 metformin 1,000 mg PO BID multivitamin 1 tab PO DAILY [[place] 3 Fish Oil 1 tab PO DAILY] omeprazole 20 mg PO DAILY pregabalin (Lyrica) 50 mg PO TID 30 days simvastatin 5 mg PO BEDTIME HPI Comments Details: 53-year-old female returning for a breast cancer follow-up examination. She underwent ultrasound-guided core biopsy on 05/28/2021 for suspicious right breast density in the 10 o'clock position andwas found to have an infiltrating ductal carcinoma. She subsequently underwent a right breast lumpectomy with needle localization, sentinel node biopsy on 06/24/2021 pathology confirmed an infiltrating ductal carcinoma of the right breast, grade 1, 1.3 cm in diameter, ER/MA positive, HER2 Glendy negative, 1 of 4 nodes positive for metastatic disease; AJCC Stage (8th ed.):? pT1c N1a(sn)(i+). She was evaluated by Dr. Mora on 07/03/2021. Genomic testing with MammaPrint was performed and she was determined to have an absolute chemotherapy benefit greater than 12%. Five year metastasis free survival with chemo hormonal therapy is 96%. The decision was made to proceed with chemotherapy with dose dense AC followed by Taxol. This was followed by radiation therapy performed at [facility] completed on 03/18/2022. She was on tamoxifen but developed blood clots and therefore was switched to letrozole. Annual mammogram obtained on 05/07/2023 revealed postoperative changes in the right breast but no new suspicious changes in either breast (BI-RADS 2). Diagnostic mammogram in 12 months is recommended and is scheduled for 05/11/2024. She feels well and denies any ongoing breast symptoms. [facility] Medical History Overweight (BMI 25.0-29.9) Microangiopathy Left leg paresthesias COVID-19 virus infection Schizoaffective disorder Colon cancer screening Breast cancer Arthritis Depression Tachycardia Hiatal hernia Hearing loss Facial paralysis Schizophrenia Obesity Iron deficiency anemia Hypertension Hypercholesterolemia GERD (gastroesophageal reflux disease) Type 2 diabetes mellitus with hyperglycemia Surgical History History of removal of Port-a-Cath History of lumpectomy of right breast Hemiparesis History of eye surgery History of placement of ear tubes Family History Father Medical history unknown Mother Medical history unknown Social History Household Members: Significant Other Housing: [facility] Are you a primary critical care rn to a significant other at home: No Do you presently have visiting nurse or other home services: Yes Alcohol intake: current Alcohol intake frequency: does not drink Alcohol type: beer and wine Patient Tobacco Use Status: Never used Tobacco e-Cigarette/Vaping Use: Never Used Second Hand Smoke Exposure: No Advance Directives Date on File: 06/24/21 service: No Current occupational status: unemployed Sexual orientation: Lesbian/Reyes/Homosexual Cognitive needs: No Hearing needs: Yes (hearing aides) Vision needs: Yes (glasses) Female Reproductive History Menstrual Age of Menarche: 13 Review of Systems Const Denies chills, Denies fever(s), Denies headache(s) and Denies poor appetite ENT Denies dizziness and Denies headache(s) Card Denies chest pain, Denies rapid heart rate, Denies palpitations and Denies slow heart rate Resp Denies chest congestion, Denies cough, Denies pain on inspiration and Denies wheezing GI Denies abdominal pain, Denies bloating, Denies change in stool character, Denies constipation, Denies diarrhea, Denies nausea, Denies vomiting and Denies hematemesis Musc Denies back pain, Denies arthralgias, Denies joint swelling and Denies numbness Skin/Breast Denies change in pigmentation, Denies erythema and Denies rash Neuro Details: Left facial paralysis Denies dizziness, Denies headache(s) and Denies numbness Psych Denies anxiety and Denies depression Endo Details: Diabetes type 2 Denies palpitations Yan/Lymph Denies easy bleeding, Denies easy bruising and Denies lymphadenopathy Aller/Immun Denies wheezing Physical Exam Vital Signs: Last Vital Signs Pulse 92 05/05/24 14:11 BP 142/74 H 05/05/24 14:11 BMI result Body Mass Index 37.3 Const General: no acute distress and well developed Nutritional Appearance: well nourished Orientation/consciousness: patient oriented x3 Limitations: no limitations Chest Other: Right breast incision is clean, dry, and intact without redness or discharge. Post radiation change noted in the skin with no open wounds. Axillary incision is also clean and intact. No palpable mass, nipple discharge, or enlarged lymph nodes. Left breast reveals no skin change, nipple retraction, nipple discharge, palpable mass, or enlarged lymph node. Resp Effort & Inspection: normal respiratory effort, no audible wheezes, no cough and no respiratory distress Skin Other: Warm and dry, no rash Neuro General: patient oriented x3 Extrem Other: No edema Assessment & Plan Assessment & Plan (1) Invasive ductal carcinoma of right breast: Comment: Lumpectomy May 2021 Code(s): C50.911 - Malignant neoplasm of unspecified site of right female breast Category: Medical Plan Patient returns for follow-up breast examination after right breast lumpectomy with needle localization, right axillary sentinel node biopsy for infiltrating ductal carcinoma. She completed chemo and radiation therapy. Wounds are clean and intact with no evidence of tumor recurrence. Left breast is normal as well. She underwent her annual mammogram on 05/07/2023 which revealed postoperative changes in the right breast but no other suspicious findings in either breast (BI-RADS 2). She is awaiting her annual mammogram on 05/11/2024. I recommended follow-up examination in 6 months, sooner p.r.n.. Coding Level of Care Code Est Pt Level 3 (53567) Diagnoses Invasive ductal carcinoma of right breast C50.911
[2024-05-05 14:11] VITALS: BP 142/74; PULSE 92; BMI 37.3
== END 2024-05-05 14:26 | disposition home or self-care (01) ==
PROVIDERS: PCP Internal Medicine; Visit Provider Surgery
DX: C50.911 Malignant neoplasm of unspecified site of right female breast (principal)
CPT/HCPCS: 99213

== ENCOUNTER 2024-05-11 08:59 | Outpatient (REF) | payer MEDICARE, MEDICAID, SELFPAY ==
--- NOTE | ~2024-05-11 | MM_ITS ---
EXAMINATION: MM DIAGNOSTIC DIGITAL BREAST TOMOSYNTHESIS, BILATERAL CLINICAL INFORMATION: Year 3 (final) bilateral diagnostic postlumpectomy and conservation therapy right breast upper outer quadrant for IDC. Due for yearly. COMPARISON: Mammography: 05/07/2023, 05/07/2022, 05/13/2021, 05/02/2021, 05/28/2021. TECHNIQUE: Digital breast tomosynthesis is performed in both the craniocaudal and mediolateral oblique views along with computer-aided detection (CAD). Synthesized 2D images are generated from the tomosynthesis. In addition, 2-D spot magnification right CC and ML views of the right breast at the lumpectomy site were obtained, as well as a full field 3-D right laterally exaggerated CC view. FINDINGS: The breasts are heterogeneously dense, which may obscure small masses (ACR BI-RADS breast composition Category c). There are expected and essentially unchanged postoperative changes in the upper outer right breast from treatment-related changes and lumpectomy. There is generalized trabecular thickening of the Kingsley's ligaments throughout the right breast, slightly improved from the prior year, with mild skin thickening, consistent with prior radiation therapy. No evidence of recurrent suspicious masses, calcifications, or distortion. Left breast demonstrates no suspicious masses, suspicious grouped calcifications or areas of architectural distortion. There is mild scarring in the region of a previous Port-A-Cath placement. No skin or axillary abnormalities. MM/MM tomosynthesis diagnostic BI IMPRESSION: There are no findings suspicious for malignancy. There are no significant changes from prior study. Stable benign treatment-related changes right breast. This completes the three-year postoperative surveillance protocol, and the patient should resume routine annual screening mammography. ASSESSMENT: BI-RADS BI-RADS 2 - Benign Findings RECOMMENDATION: 1 year F/U Results were provided to the patient at time of visit by the technologist. This patient's information was entered into a reminder system with a target due date for their next mammogram. Electronically signed by: Hunter Cristobal MD 05/11/2024 12:49 PM EDT
== END 2024-05-11 09:00 | disposition home or self-care (01) ==
LOC: HO.MAMMO 08:59
PROVIDERS: PCP Internal Medicine; Visit Provider Surgery
DX: Z85.3 Personal history of malignant neoplasm of breast (principal)
CPT/HCPCS: 77062; 77066

== ENCOUNTER → 2024-05-11 09:00 | Outpatient (BNV) | payer MEDICARE, MEDICAID, SELFPAY | PROVIDERS: PCP Internal Medicine; Visit Provider Radiology Diagnostic Radiology | DX: R92.333 Mammographic heterogeneous density, bilateral breasts (principal) | CPT/HCPCS: 77066; G0279 ==

== ENCOUNTER 2024-05-23 09:27 | Outpatient (AMB) | payer MEDICARE, MEDICAID, SELFPAY ==
--- NOTE | 2024-05-23 09:33 | AM.OFFWIN_ITS ---
Intake Vital Signs 05/23/24 09:35 Weight 206 lb BP 140/100 H Blood Pressure Location Lt brachial Position Sitting Pulse 110 H Pulse Source Pulse Oximeter Pulse Oximetry (%) 98 Oxygen Delivery Method Room Air Intake Visit Reasons: EP Cold sore/growth on lip Intake Note: Patient here for growth on lips mainly on the left side that has been present for about 1 week. Patient Tobacco Use Status: Never used Tobacco Allergies lisinopril [LISINOPRIL] Allergy (Unknown, Verified 05/23/24 09:36) SWOLLEN LIPS, angioedema, swelling Do you need a note to return to daycare/school/sports/work: No HPI EP Cold sore/growth on lip HPI0 Details This note is constructed using voice recognition software. While every effort has been made to ensure accuracy, electric locomotive firer/fireman errors may have been in cluded. The patient is a 53 year old female who presents to the clinic today with a painless lesion to the left side of her mouth for the past week. She denies fever, chills, dysphagia, other lesions, or lesions similar to this in the past. SHe has been applying a cold sore cream to the area, it dries it up and then she squeezes white thick from the lesion. She notes it occassionally gets his and bleeds. PENDING SALE TO [facility] Medical History Overweight (BMI 25.0-29.9) Microangiopathy Left leg paresthesias COVID-19 virus infection Schizoaffective disorder Colon cancer screening Breast cancer Arthritis Depression Tachycardia Hiatal hernia Hearing loss Facial paralysis Schizophrenia Obesity Iron deficiency anemia Hypertension Hypercholesterolemia GERD (gastroesophageal reflux disease) Type 2 diabetes mellitus with hyperglycemia Surgical History History of removal of Port-a-Cath History of lumpectomy of right breast Hemiparesis History of eye surgery History of placement of ear tubes Family History Father Medical history unknown Mother Medical history unknown Social History Household Members: Significant Other Housing: Condominium Are you a primary career development facilitator to a significant other at home: No Do you presently have visiting nurse or other home services: Yes Alcohol intake: current Alcohol intake frequency: does not drink Alcohol type: beer and wine Patient Tobacco Use Status: Never used Tobacco e-Cigarette/Vaping Use: Never Used Second Hand Smoke Exposure: No Advance Directives Date on File: 06/24/21 service: No Current occupational status: unemployed Sexual orientation: Lesbian/Reyes/Homosexual Cognitive needs: No Hearing needs: Yes (hearing aides) Vision needs: Yes (glasses) Female Reproductive History Menstrual Age of Menarche: 13 Review of Systems Const All systems reviewed & are unremarkable except as noted in HPI and below Physical Exam Vital Signs: Last Vital Signs Pulse 110 H 05/23/24 09:35 BP 140/100 H 05/23/24 09:35 Pulse Ox 98 05/23/24 09:35 Oxygen Delivery Method Room Air 05/23/24 09:35 Const General: cooperative, healthy appearing, comfortable, no acute distress and well developed Orientation/consciousness: patient oriented x3 Limitations: no limitations HEENT Other: Mucocele present to left corner of mouth, approximately 3mm in diameter, with signs of bleeding. Head: Yes normal to inspection Ears: hearing grossly normal bilaterally General nose exam: Normal external nose present Face and sinus: Yes normal facial exam Eyes General: appearance normal, both eyes and all related structures Neck Neck: Yes normal visual inspection and Yes full ROM Resp Effort & Inspection: normal respiratory effort and able to speak in complete sentences Auscultation: clear to auscultation bilaterally Cardio Rate: regular rate Rhythm: regular rhythm Heart sounds: normal S1 and S2 Skin General skin exam: no rashes or lesions noted Neuro General: patient oriented x3 Assessment & Plan Assessment & Plan (1) Mucocele of lip: Code(s): K13.0 - Diseases of lips Plan: Reviewed typical treatment plan. Based on size and location, referral to Dermatology placed for intervention. Advised follow up as needed with worsening or failure to resolve. Plan See above for full details and plan. Orders: Referrals Dermatology Referral K13.0 - Diseases of lips Coding Level of Care Code Est Pt Level 3 (16941) Diagnoses Mucocele of lip K13.0
[2024-05-23 09:35] VITALS: BP 140/100; PULSE 110; O2SAT 98
== END 2024-05-23 10:02 | disposition home or self-care (01) ==
PROVIDERS: PCP Internal Medicine; Visit Provider Registered Nurse
DX: K13.0 Diseases of lips (principal)

== ENCOUNTER → 2024-05-23 09:27 | Outpatient (BNVA) | payer MEDICARE, MEDICAID, SELFPAY | PROVIDERS: PCP Internal Medicine; Visit Provider Registered Nurse | DX: K13.0 Diseases of lips (principal) | CPT/HCPCS: 99212 ==

== ENCOUNTER 2024-07-11 13:32 | Outpatient (AMB) | payer MEDICARE, MEDICAID, SELFPAY ==
[2024-07-11 13:34] VITALS: BP 122/82; PULSE 109; O2SAT 95; BMI 36.8
--- NOTE | 2024-07-11 13:34 | A.OFFPC_ITS ---
Vital Signs 07/11/24 13:34 Height 5 ft 2 in Blood Pressure Location Lt brachial Position Sitting Pulse Source Pulse Oximeter Oxygen Delivery Method Room Air Intake Visit Reasons: [facility] G0439 Allergies lisinopril [LISINOPRIL] Allergy (Unknown, Verified 05/23/24 09:36) SWOLLEN LIPS, angioedema, swelling Tobacco use date assessed: 10/29/23 Dental Screening Dental Screen Date: 08/13/23 FOR[facility]LY [facility], [facility] Medical History Overweight (BMI 25.0-29.9) Microangiopathy Left leg paresthesias COVID-19 virus infection Schizoaffective disorder Colon cancer screening Breast cancer Arthritis Depression Tachycardia Hiatal hernia Hearing loss Facial paralysis Schizophrenia Obesity Iron deficiency anemia Hypertension Hypercholesterolemia GERD (gastroesophageal reflux disease) Type 2 diabetes mellitus with hyperglycemia Surgical History History of removal of Port-a-Cath History of lumpectomy of right breast Hemiparesis History of eye surgery History of placement of ear tubes Family History Father Medical history unknown Mother Medical history unknown Social History Household Members: Significant Other Housing: Condominium Are you a primary nurse behavioral health care to a significant other at home: No Do you presently have visiting nurse or other home services: Yes Alcohol intake: current Alcohol intake frequency: does not drink Alcohol type: beer and wine Patient Tobacco Use Status: Never used Tobacco e-Cigarette/Vaping Use: Never Used Second Hand Smoke Exposure: No Advance Directives Date on File: 06/24/21 service: No Current occupational status: unemployed Sexual orientation: Lesbian/Reyes/Homosexual Cognitive needs: No Hearing needs: Yes (hearing aides) Vision needs: Yes (glasses) Female Reproductive History Menstrual Age of Menarche: 13 Questionnaire Thrive Questionnaire Date Thrive assessed: 08/13/23 Are you currently unemployed and looking for a job?: Yes SPEEDY-7 AMB Questionnaire SPEEDY-7 Date SPEEDY - 7 assessed: 08/13/23 Source: Developed by Drs. Baldev Floyd, Елена Wolff, Sina Reyes and colleagues, with an educational patti from [employer]. Physical exam (Primary Care) Tobacco/Smoking Status: Tobacco use Status Tobacco use date assessed 10/29/23 05/05/24 09:34 Patient Tobacco Use Status Never used Tobacco 05/23/24 09:34 e-Cigarette/Vaping Use Never Used 05/05/24 09:34 Thrive Assessment: Date of Thrive Assessment Date Thrive assessed 08/13/23 05/05/24 09:34 Coding
--- NOTE | 2024-07-11 13:42 | A.OFFVIS_ITS ---
Intake Vital Signs 07/11/24 13:34 Height 5 ft 2 in Weight 201 lb 6 oz BMI 36.8 BP 122/82 Blood Pressure Location Lt brachial Position Sitting Pulse 109 H Pulse Source Pulse Oximeter Pulse Oximetry (%) 95 Oxygen Delivery Method Room Air Intake Visit Reasons: [facility] G0439 Pairer Substandard Required: No Accompanied by: Self / Same As Patient Allergies lisinopril [LISINOPRIL] Allergy (Unknown, Verified 07/11/24 13:51) SWOLLEN LIPS, angioedema, swelling Medication List - Last Reconciled 07/11/24 by Liss Moctezuma MD blood sugar diagnostic (FreeStyle Lite Strips) As directed check the BS once daily blood-glucose meter (FreeStyle Lite Meter kit) As directed cholecalciferol (vitamin D3) (Vitamin D3) 10 mcg PO DAILY clozapine orally; ; 50mg in am 250mg at night docusate sodium 100 mg PO BEDTIME empagliflozin (Jardiance) 25 mg PO DAILY lancets (FreeStyle Lancets) once a day letrozole 2.5 mg PO DAILY leuprolide (3 month) (Lupron Depot) 22.5 mg IM [id number] lorazepam orally; 0.5 mg in am 1 tab in pm losartan 25 mg PO DAILY 90 days lurasidone (Latuda) 80 mg PO 1800 metformin 1,000 mg PO BID multivitamin 1 tab PO DAILY omeprazole 20 mg PO DAILY pregabalin (Lyrica) ; 50 mg in am and 100 mg qpm simvastatin 5 mg PO BEDTIME HPI [facility] G0439 HPI Details The patient is a 53-year-old female presenting for a wellness visit. She is being treated for hypertension with losartan 25 mg once daily. She has been diagnosed with Type 2 Diabetes Mellitus and manages her condition with Jardiance 25 mg daily, metformin 1000 mg twice a day, and her blood sugar levels are generally stable. Her cholesterol levels have been slightly above goal, with her last LDL cholesterol reading being 103, for which she is on simvastatin 5 mg daily. The patient reports a history of a mucoid cyst on her lip, which was surgically removed following a biopsy. Results are pending, and she was advised to follow up with the community assistant regarding the biopsy results. Mental health concerns include depression and anxiety, managed with Latuda and lorazepam as needed. Recently, a fungal infection was identified in her toes, for which antifungal treatment was recommended. She reports no new systemic issues such as dizziness, chest pain, nausea, vomiting, or changes in bowel habits, except for experiencing loose bowel movements on the day of the visit. Her past medical history includes adjustments in her psychiatric medications, including clozapine. - Vaccinations: Tetanus and pneumonia va ccinations are up to date; the flu shot and COVID-19 booster were recently administered. - Diabetes Management: Blood glucose lev els are being monitored; recent HbA1c was 6.6. - Lipid Management: LDL cholesterol slig htly elevated at 103; simvastatin dose increased. - Blood Pressure: Well-controlled; no me dication adjustment required. - Annual Eye Examination: Last examinati on in May with no reported complications. - Follow-up dermatology appointment advi sed for biopsy results of lip mucocele. - EKG ordered for evaluation of heart ra te. - The patient denies alcohol consumption and smoking. - Reports no change in her employment or housing status. - No significant family history changes during the visit. - Patients report normal levels of physi malissa activity. - No recent changes in diet were discuss ed, except for avoiding fish oil supplements. - General: Denies fever, weight loss, or fatigue. - Cardiovascular: Denies chest pain or s hortness of breath. - Gastrointestinal: Denies dysphagia, re ports loose bowel movements only for the day of the visit. - Respiratory: Denies cough, wheezing, o r difficulty breathing. - Neurological: Denies dizziness or loss of consciousness. - Dermatological: Mucoid cyst on the lip , fungal infection on toes confirmed. [facility] Medical History Overweight (BMI 25.0-29.9) Microangiopathy Left leg paresthesias COVID-19 virus infection Schizoaffective disorder Colon cancer screening Breast cancer Arthritis Depression Tachycardia Hiatal hernia Hearing loss Facial paralysis Schizophrenia Obesity Iron deficiency anemia Hypertension Hypercholesterolemia GERD (gastroesophageal reflux disease) Type 2 diabetes mellitus with hyperglycemia Surgical History History of removal of Port-a-Cath History of lumpectomy of right breast Hemiparesis History of eye surgery History of placement of ear tubes Family History Father Medical history unknown Mother Medical history unknown Social History (Updated 07/11/24 @ 14:10 by Liss Moctezuma MD) Household Members: Significant Other Housing: Condominium Are you a primary health careers instructor to a significant other at home: No Do you presently have visiting nurse or other home services: Yes Alcohol intake: never Patient Tobacco Use Status: Never used Tobacco e-Cigarette/Vaping Use: Never Used Second Hand Smoke Exposure: No Advance Directives Date on File: 06/24/21 service: No Current occupational status: unemployed Sexual orientation: Lesbian/Reyes/Homosexual Cognitive needs: No Hearing needs: Yes (hearing aides) Vision needs: Yes (glasses) Female Reproductive History Menstrual Age of Menarche: 13 Questionnaire Medicare Wellness Checkup What [age] What gender do you identify with?: female During the past 4 weeks, how much have you been bothered by emotional problems such as feeling anxious, depressed, irritable, sad or downhearted, and blue?: moderately During the past 4 weeks, has your physical & emotional health limited your social activities with family, friends, neighbors, or groups?: slightly During the past 4 weeks, how much bodily pain have you generally had?: moderate pain During the past 4 weeks, was someone available to help you if you needed & wanted help?: yes, a little During the past 4 weeks, what was the hardest physical activity you could do for at least 2 minutes?: light Can you get to places out of walking distance without help? (For eg., can you travel alone on buses, taxis or drive your car?): Yes Can you go shopping for groceries or clothes without someone's help?: Yes Can you prepare your own meals?: Yes Can you do your housework without help?: Yes Because of any health problems, do you need the help of another person with your personal care needs such as eating, bathing, dressing or getting around the house?: No Can you handle your own money without help?: Yes During the past 4 weeks, how would you rate your health in general?: good During the past 4 weeks how have things been going for you?: good & bad parts about equal Are you having difficulties driving your car?: no During past 4 weeks, have you been bothered by the following: never: Falling or dizzy when standing up, Sexual problems?, Teeth or denture problems? and Problems using the telephone? and sometimes: Trouble eating well? and Tiredness or fatigue? Have you fallen 2 or more times in the past year?: Yes Are you afraid of falling?: Yes Are you a smoker?: no During the past 4 weeks, how many drinks of wine, beer, or other alcoholic beverages did you have?: no alcohol at all Do you exercise for about 20 minutes 3 or more times a week?: yes, some of the time Have you been given information to help with the following?: yes: Keeping track of your medications? and no: Hazards in your house that might hurt you? How often do you have trouble taking medicines the way you have been told to take them?: I seldom take medications as prescribed How confident are you that you can control & manage most of your health problems?: very confident What is your race?: Black or Review of Systems Const Denies poor appetite and Denies weakness Eyes Denies no additional complaints ENT Reports Normal hearing present, Denies dizziness, Denies nasal congestion, Denies tinnitus and Denies sore throat Card Denies chest pain, Denies syncope, Denies rapid heart rate and Denies dyspnea Resp Denies cough and Denies dyspnea GI Denies change in stool character, Reports constipation, Denies diarrhea, Denies nausea and Denies vomiting Denies urinary frequency, Denies difficulty voiding and Denies dysuria Neuro Reports Normal hearing present, Denies confusion, Denies dizziness, Denies syncope and Denies weakness Psych Denies confusion Physical Exam Vital Signs: Last Vital Signs Pulse 109 H 07/11/24 13:34 BP 122/82 07/11/24 13:34 Pulse Ox 95 07/11/24 13:34 Oxygen Delivery Method Room Air 07/11/24 13:34 BMI result Body Mass Index 36.8 Const General: No confusion Orientation/consciousness: No confusion HEENT Head: Yes normocephalic Ears: external ears normal and TM's normal bilaterally Face and sinus: Yes normal facial exam Mouth: moist mucous membranes Throat: Yes tonsils normal Eyes Conjunctivae: conjunctivae normal Pupils: Equal, round and reactive pupils present and Pupil accommodation reflex normal Direct Ophthalmoscopy: normal light reflex Neck Neck: No lymphadenopathy Thyroid: Thyroid normal Chest Chest palpation & inspection: normal inspection of the chest Resp Effort & Inspection: normal respiratory effort and no audible wheezes Auscultation: clear to auscultation bilaterally, no crackles, no wheezes and lung sounds not diminished Cardio Rate: regular rate Rhythm: regular rhythm Peripheral pulses: radial pulses present and dorsalis pedis present GI Other: colon test 2022 Palpation (GI): no masses Auscultation: normal bowel sounds and normoactive bowel sounds Rectal Exam - Female: deferred Neuro Other: pedal pulse and pin prick good, noted whitish skin interdigital toe area General: No confusion Cranial nerves: Yes Equal, round and reactive pupils present and Yes Normal hearing present Cognition (Neuro): normal cognition Gait exam (Neuro): Normal gait present Motor exam (neuro): 5/5 motor strength present throughout Deep tendon reflexes (DTR's): Right brachioradialis reflex intensity grade: 2+, Left brachioradialis reflex intensity grade: 2+, Right patellar reflex intensity grade: 2+ and Left patellar reflex intensity grade: 2+ Extrem Other: interdigital toe white rash General: No edema Office Procedures Flu Questionnaire Does the patient have a severe egg allergy?: No Immunizations Fluarix Triv [id number] (PF) 45 mcg (15 mcg x 3)/0.5 mL IM syringe Performing Provider: Liss Moctezuma MD [facility] Documented (not given) by: THERESA Laird on 07/11/24 13:52 Reason Not Given: Received Previously Assessment & Plan Assessment & Plan (1) Medicare annual wellness visit, subsequent: Code(s): Z00.00 - Encounter for general adult medical examination without abnormal findings Plan: Patient is advised to eat healthy, keep well hydrated, keep active and have ad equate sleep. (2) Left leg paresthesias: Comment: likely peripheral neuropathy ? diabetic worsened by Chemo Code(s): R20.2 - Paresthesia of skin Plan: Patient follows up with Neurology (3) Invasive ductal carcinoma of right breast: Comment: Lumpectomy May 2021 Code(s): C50.911 - Malignant neoplasm of unspecified site of right female breast Plan: Up-to-date with mammogram and continue to follow-up with the surgeon as well as the Hematology-Oncology. (4) Type 2 diabetes mellitus with hyperglycemia: Comment: Dr. [place]ulse[place] Code(s): E11.65 - Type 2 diabetes mellitus with hyperglycemia Qualifiers: Diabetes mellitus joint terminal attack controller insulin use: without joint terminal attack controller use Qualified Code(s): E11.65 - Type 2 diabetes mellitus with hyperglycemia Plan: Decrease the amount of carbohydrate intake, pasta, bread, rice and potatoes are all sugar and that is aside from all the sweet stuff, remember that fruits are good but they are Sweet also. Hemoglobin A1c goal of less than 6.5. Patient on Jardiance 25 mg once a day metformin a 1000 mg twice a day (5) GERD (gastroesophageal reflux disease): Code(s): K21.9 - Gastro-esophageal reflux disease without esophagitis Qualifiers: Esophagitis presence: without esophagitis Qualified Code(s): K21.9 - Gastro-esophageal reflux disease without esophagitis Plan: Avoid the foods that causes that usually spicy foods, tomato products, juices, coffee, soda and foods that your sensitive to. After eating do not lie down, allow 3-4 hours before in lie down. And keep the head of bed above 30 degrees to avoid the acid from going up. (6) Hypercholesterolemia: Code(s): E78.00 - Pure hypercholesterolemia, unspecified Plan: Avoid fried foods, chicken skin, eggs, butter margarine, pastries and meat. Be it pork or beef they have a lot of cholesterol on simvastatin 5 mg at bedtime and LDL goal of less than 100 (7) Hypertension: Code(s): I10 - Essential (primary) hypertension Qualifiers: Hypertension type: essential hypertension Qualified Code(s): I10 - Essential (primary) hypertension Plan: Continue with blood pressure medication. Decrease salt intake and exercise (8) Obesity: Comment: Pt also has T2DM Code(s): E66.9 - Obesity, unspecified Qualifiers: Obesity type: due to excess calories Obesity classification: adult class 2 (BMI 35 - 39.9) Serious obesity comorbidity presence: with serious comorbidity Body mass index: BMI 38.0-38.9 Qualified Code(s): E66.01 - Morbid (severe) obesity due to excess calories; Z68.38 - Body mass index [BMI] 38.0- 38.9, adult Plan: Diet and exercise (9) Schizoaffective disorder: Comment: [facility] to [facility] (09/2022) Code(s): F25.9 - Schizoaffective disorder, unspecified Qualifiers: Schizoaffective disorder type: unspecified Qualified Code(s): F25.9 - Schizoaffective disorder, unspecified Plan: Continue to follow-up with psychiatry and counseling (10) Tinea pedis: Code(s): B35.3 - Tinea pedis Qualifiers: Laterality: bilateral Qualified Code(s): B35.3 - Tinea pedis Plan: antifungal sent in (11) Tachycardia: Code(s): R00.0 - Tachycardia, unspecified Plan: blood work and ekg requested Plan - Labs: Most recent blood work, including diabetes and cholesterol panels, done in January; all within normal limits. - Pending: Biopsy results for the lip mucocele. - Increase simvastatin to 10 mg daily to improve LDL cholesterol levels. - Continue current antihypertensive and antidiabetic regimens with lab follow-up in three months. - Prescribe antifungal cream for the treatment of tinea infections on toes. - Order EKG to evaluate tachycardia; monitor fluid intake. - Advise the patient to contact dermatology for lip biopsy follow-up. - Continue Latuda and lorazepam for depression and anxiety management. - Discuss the importance of compliance with medication and monitoring diet and exercise to manage glucose levels and cholesterol. I discussed with the patient the importance of increasing her simvastatin dosage for cholesterol control due to her elevated LDL levels. We discussed the benefits of lowering LDL cholesterol, including reducing cardiovascular risk. I explained the need for an EKG to further evaluate her slightly elevated heart rate and the role of adequate hydration in managing heart rate. We reviewed her current diabetes management plan and emphasized the importance of regular monitoring and dietary control. We also talked about continuing her psychiatric medications as currently prescribed while monitoring for any side effects. She consented to anti-fungal treatment for her foot infection. We planned a follow- up in three months to reassess her progress and adjust her treatment plan as necessary. - Continue all current medications as prescribed and follow any changes discussed today. - Apply the prescribed antifungal cream to the affected areas between your toes twice daily for one month. - Ensure adequate hydration to help manage heart rate. - Schedule an appointment with dermatology for follow-up on the mucoid cyst biopsy. - Follow up in three months for reassessment of blood work and possible medication adjustments. - Maintain regular blood glucose monitoring and follow dietary recommendations to manage diabetes. - Report any changes in symptoms or health concerns promptly. Orders: Orders Complete Blood Count Auto Diff 3 Months Liss Moctezuma MD E11.65 - Type 2 diabetes mellitus with hyperglycemia Free T4 (Free Thyroxine) 3 Months Liss Moctezuma MD E11.65 - Type 2 diabetes mellitus with hyperglycemia Vitamin D 25-OH Total 3 Months Liss Moctezuma MD E11.65 - Type 2 diabetes mellitus with hyperglycemia Creatinine Urine 3 Months Liss Moctezuma MD E11.65 - Type 2 diabetes mellitus with hyperglycemia Lipid Panel 3 Months Liss Moctezuma MD E11.65 - Type 2 diabetes mellitus with hyperglycemia, E78.00 - Pure hypercholesterolemia, unspecified ECG 12 lead EKG Today Liss Moctezuma MD E11.65 - Type 2 diabetes mellitus with hyperglycemia Comprehensive Met. Panel 3 Months Liss Moctezuma MD E11.65 - Type 2 diabetes mellitus with hyperglycemia Hemoglobin A1c 3 Months Liss Moctezuma MD E11.65 - Type 2 diabetes mellitus with hyperglycemia Thyroid Stimulating Hormone 3 Months Liss Moctezuma MD E11.65 - Type 2 diabetes mellitus with hyperglycemia Vitamin B12 and Folate 3 Months Liss Moctezuma MD E11.65 - Type 2 diabetes mellitus with hyperglycemia Microalbumin, Random (w Creat) 3 Months Liss Moctezuma MD E11.65 - Type 2 diabetes mellitus with hyperglycemia Influenza [id number] Immunization Today Liss Moctezuma MD Z23 - Encounter for immunization Medications: New clotrimazole 1% 1 appl topical BID 4 weeks 45 grams 0RF Liss Moctezuma MD B35.3 - Tinea pedis Changed From pregabalin (Lyrica) 50 mg PO TID 30 days 90 caps 3RF G62.9 - Polyn europathy, unspecified To pregabalin (Lyrica) ; 50 mg in am and 100 mg qpm G62.9 - Polyneuropathy, unspecified JOSELIN BrizuelaP From simvastatin 5 mg PO BEDTIME 90 tabs 2RF E78.00 - Pure hypercholesterolemia, unspecified To simvastatin 10 mg PO BEDTIME 90 tabs 2RF E78.00 - Pure hypercholesterolemia, unspecified Liss Moctezuma MD Coding Level of Care Code Medicare Subsequent (G0439) Diagnoses Medicare annual wellness visit, subsequent Z00.00 Left leg paresthesias R20.2 Invasive ductal carcinoma of right breast C50.911 Type 2 diabetes mellitus with hyperglycemia, without long-term current use of insulin E11.65 Diabetes mellitus senior living insulin use: without joint terminal attack controller use Gastroesophageal reflux disease without esophagitis K21.9 Esophagitis presence: without esophagitis Hypercholesterolemia E78.00 Essential hypertension I10 Hypertension type: essential hypertension Class 2 severe obesity due to excess calories with serious comorbidity and body mass index (BMI) of 38.0 to 38.9 in adult E66.01; Z68.38 Obesity type: due to excess calories Obesity classification: adult class 2 (BMI 35 - 39.9) Serious obesity comorbidity presence: with serious comorbidity Body mass index: BMI 38.0-38.9 Schizoaffective disorder, unspecified type F25.9 Schizoaffective disorder type: unspecified Tinea pedis of both feet B35.3 Laterality: bilateral Tachycardia R00.0
== END 2024-07-11 14:30 | disposition home or self-care (01) ==
PROVIDERS: PCP Internal Medicine; Visit Provider Internal Medicine
DX: Z00.00 Encounter for general adult medical examination without abnormal findings (principal); E11.65 Type 2 diabetes mellitus with hyperglycemia; C50.911 Malignant neoplasm of unspecified site of right female breast; E66.01 Morbid (severe) obesity due to excess calories; F25.9 Schizoaffective disorder, unspecified; R20.2 Paresthesia of skin; Z68.38 Body mass index [BMI] 38.0-38.9, adult; K21.9 Gastro-esophageal reflux disease without esophagitis; E78.00 Pure hypercholesterolemia, unspecified; I10 Essential (primary) hypertension; B35.3 Tinea pedis; R00.0 Tachycardia, unspecified

== ENCOUNTER → 2024-07-11 13:32 | Outpatient (BNVA) | payer MEDICARE, MEDICAID, SELFPAY | PROVIDERS: PCP Internal Medicine; Visit Provider Internal Medicine ==

== ENCOUNTER → 2024-09-29 10:14 | Outpatient (REF) | payer MEDICARE, MEDICAID, SELFPAY ==
--- NOTE | 2024-09-29 10:20 | ECG_ITS ---
Test Reason : TYPE II DM Blood Pressure : */* mmHG Vent. Rate : 97 BPM Atrial Rate : 97 BPM P-R Int : 144 ms QRS Dur : 78 ms QT Int : 316 ms P-R-T Axes : 47 59 -5 degrees QTcB Int : 401 ms Normal sinus rhythm Nonspecific T wave abnormality Abnormal ECG When compared with ECG of 17-Dec-2021 14:00, No significant change was found Referred By: Liss Moctezuma Electronically Signed By: CECI MOLINA MD
[2024-09-29 10:51] LABS: MANUAL DIFF FLAG NO
[2024-09-29 11:16] LABS: Basophils Percent Auto 0.4 % (0-2); Hematocrit 38.9 % (37.0-47.0); Hemoglobin 12.6 g/dl (12.0-16.0); Imm Gran Abs Auto 0.04 X10*3/uL (0.00-0.03); Imm Gran Pct Auto 0.4 % (0.0-0.4); Lymphocytes Absolute Auto 1.8 X10*3/uL (1.2-4.9); Mean Corpuscular HGB Conc 32.4 g/dl (31.0-35.0); Mean Corpuscular Hemoglobin 28.6 pg (27.0-33.0); Mean Corpuscular Volume 88.4 fL (80.0-98.0); Monocytes Absolute Auto 0.5 X10*3/uL (0.1-1.2); Monocytes Percent Auto 4.9 % (2-11); Neutrophils Absolute Auto 8.6 x10*3/uL (2.0-8.3); Neutrophils Percent Auto 78.3 % (45-73); Platelet Count 337 X10*3/uL (160-400); White Blood Count 10.9 X10*3/uL (4.8-10.8)
[2024-09-29 11:34] LABS: Estimated Average Glucose 160 mg/dL; Hemoglobin A1C 168.2465 umol/L; Hemoglobin A1c % 7.2 % (<6.0); Total Hemoglobin (HGBA1C) 3025.2574 umol/L
[2024-09-29 11:50] LABS: Cholesterol 159 mg/dL (<200); HDL Cholesterol 58 mg/dL (>40); LDL Cholesterol Calculated 82 mg/dL (<100); Triglycerides 96 mg/dL (<150)
[2024-09-29 12:02] LABS: Alanine Aminotransferase 27 U/L (0-31); Albumin Level 4.4 g/dL (3.5-5.0); Alkaline Phosphatase 147 U/L (39-117); Anion Gap 14 (12-20); Aspartate Amino Transferase 24 U/L (5-31); Bilirubin Total 0.4 mg/dL (0.0-1.0); Blood Urea Nitrogen 13 mg/dL (9-16); Calcium 9.4 mg/dL (8.4-10.2); Carbon Dioxide 24 mmol/L (22-29); Chloride 110 mmol/L (96-108); Cholesterol 160 mg/dL (<200); Estimated Glomerular Filt Rate > 60; Glucose Random 137 mg/dL (60-115); HDL Cholesterol 58 mg/dL (>40); LDL Cholesterol Calculated 83 mg/dL (<100); Potassium 3.8 mmol/L (3.3-5.1); Sodium 144 mmol/L (135-145); Total Protein 7.7 g/dL (6.5-8.0); Triglycerides 99 mg/dL (<150)
[2024-09-29 12:06] LABS: Thyroid Stimulating Hormone 1.76 uIU/mL (0.32-4.0)
[2024-09-29 12:08] LABS: Free T4 (Free Thyroxine) 0.91 ng/dL (0.71-1.85); Vitamin D 25-OH Total 45.7 ng/mL (>30)
[2024-09-29 12:19] LABS: Folate 18.9 ng/mL (> or = 4.0); Vitamin B12 822 pg/mL (200-900)
[2024-09-29 12:36] LABS: Creatinine Urine 62.41 mg/dL; Microalbum/Creatinine Ratio Ur 9.6 ug/mg cr (<30)
== END ==
LOC: HO.CARD 10:14
PROVIDERS: PCP Internal Medicine; Visit Provider Internal Medicine
DX: E11.65 Type 2 diabetes mellitus with hyperglycemia (principal); E78.00 Pure hypercholesterolemia, unspecified; Z00.00 Encounter for general adult medical examination without abnormal findings
CPT/HCPCS: 36415; 80053; 80061; 82043; 82306; 82570; 82607; 82746; 83036; 84439; 84443; 85025; 93005

== ENCOUNTER → 2024-09-29 10:20 | Outpatient (BNV) | payer MEDICARE, MEDICAID, SELFPAY | PROVIDERS: PCP Internal Medicine; Visit Provider Internal Medicine Cardiovascular Disease | DX: R94.31 Abnormal electrocardiogram [ECG] [EKG] (principal); E11.9 Type 2 diabetes mellitus without complications | CPT/HCPCS: 93010 ==

== ENCOUNTER 2024-09-29 13:17 | Outpatient (AMB) | payer MEDICARE, MEDICAID, SELFPAY ==
--- NOTE | 2024-09-29 13:25 | MHC.OFFVIS ---
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 Mora every 6 months. She sees her primary care provider Dr. Moctezuma regularly as well and has an appointment within next week. She does not have any material mover problems she has not been sexually active in years her Pap smear was negative in 2022 so she does not need a Pap smear this year. She is on medication for her breast cancer that she takes every day and she gets a Lupron injection every 3 months as well.. She sometimes has some urinary urgency she does think that she is voiding completely when she voids and she also does not think that she holds her urine more than is reasonable. Says sometimes she has vaginal itching [facility] Medical History Tachycardia Overweight (BMI 25.0-29.9) Microangiopathy Left leg paresthesias COVID-19 virus infection Schizoaffective disorder Colon cancer screening Breast cancer Arthritis Depression Hiatal hernia Hearing loss Facial paralysis Schizophrenia Obesity Iron deficiency anemia Hypertension Hypercholesterolemia GERD (gastroesophageal reflux disease) Type 2 diabetes mellitus with hyperglycemia Surgical History History of removal of Port-a-Cath History of lumpectomy of right breast Hemiparesis History of eye surgery History of placement of ear tubes Family History Father Medical history unknown Mother Medical history unknown Social History Household Members: Significant Other Housing: Condominium Are you a primary career technical education teacher to a significant other at home: No Do you presently have visiting nurse or other home services: Yes Alcohol intake: never Patient Tobacco Use Status: Never used Tobacco e-Cigarette/Vaping Use: Never Used Second Hand Smoke Exposure: No Advance Directives Date on File: 06/24/21 service: No Current occupational status: unemployed Sexual orientation: Lesbian/Reyes/Homosexual Cognitive needs: No Hearing needs: Yes (hearing aides) Vision needs: Yes (glasses) Female Reproductive History Menstrual Age of Menarche: 13 control method: none Total pregnancies: 0 Date of last pap smear: 09/19/22 (neg,2016 WNL) Date of Mammogram: 05/11/24 (2Ben. Finding) Physical Exam Vital Signs: Last Vital Signs BP 120/70 09/29/24 13:31 BMI result Body Mass Index 38.0 Const Other: Hemiparesis notable. Patient says she has had it since she was a baby. Small surgical scars right breast. General: healthy appearing, comfortable, no acute distress, well developed and alert Nutritional Appearance: average body habitus Orientation/consciousness: patient oriented x3 Limitations: no limitations HEENT Head: Yes normocephalic Neck Neck: Yes normal visual inspection Thyroid: Thyroid normal Chest Chest palpation & inspection: normal inspection of the chest Breast/axilla inspection: normal inspection of the breasts and normal inspection of the axillae Breast/axilla palpation: normal palpation of the breasts and normal palpation of the axillae Resp Effort & Inspection: normal respiratory effort GI Inspection: Yes normal to inspection, No Abdominal wall edema and No distended Palpation (GI): Soft to palpation and nontender Other: External vulva is bright pink and slightly inflamed swollen consistent with yeast infection skin surrounding introitus is dusky also consistent with fungal infection. General: Yes bladder normal to palpation External Female Exam: normal external appearance and normal appearance of the urethra Speculum Exam - Vagina: normal appearance of the vagina, normal palpation and normal vaginal discharge Speculum Exam - Cervix: normal appearance of the cervix, normal palpation and nontender Bimanual exam- vagina & uterus: normal bimanual exam, normal palpation, uterine size normal, bladder normal to palpation, consistency normal, normal palpation, uterine mobility normal, uterine shape normal, No Cervical tenderness present, non-tender and no cervical motion tenderness Bimanual Exam- Adnexa, other: normal adnexae, no masses, normal and No adnexal tenderness Neuro General: patient oriented x3 Assessment & Plan Assessment & Plan (1) Type 2 diabetes mellitus with hyperglycemia: Comment: Dr. Sanz Code(s): E11.65 - Type 2 diabetes mellitus with hyperglycemia Category: Medical Qualifiers: Diabetes mellitus salvage determiner insulin use: without salvage determiner use Qualified Code(s): E11.65 - Type 2 diabetes mellitus with hyperglycemia (2) Invasive ductal carcinoma of right breast: Comment: Lumpectomy May 2021 Code(s): C50.911 - Malignant neoplasm of unspecified site of right female breast Category: Medical (3) Cervical cancer screening: Comment: hx of ascus X ???, last pap 2015, pap done 09/19/22= neg w neg hpv.. Code(s): Z12.4 - Encounter for screening for malignant neoplasm of cervix Category: Medical (4) Women's annual routine gynecological examination: Code(s): Z01.419 - Encounter for gynecological examination (general) (routine) without abnormal findings Category: Medical (5) Left hemiparesis: Code(s): G81.94 - Hemiplegia, unspecified affecting left nondominant side Category: Medical (6) Yeast infection involving the vagina and surrounding area: Code(s): B37.31 - Acute candidiasis of vulva and vagina Category: Medical Plan -----Discussed in this visit the following: healthy balanced diet, regular and consistent exercise, getting recommended health screens, doing the best she can for her particular health concerns, kegel exercises, pap smear screening and followup recommendations, mammography screening and SBE, normal changes in cycles in her life stage--- . Discussed her follow-up with her primary care provider and her oncologist and her current regimen.. Patient is fairly well-versed in her medical issues there was a mentioned in her chart of tubular adenoma and a mentioned this to her and she did not know those words I just suggested that she have a conversation with her primary care provider about that. Discussed the diabetes and her medications and that sometimes people with diabetes but also on the medication she is on may have more of a proclivity to having vaginal yeast infections because of the excretion of the sugar in her urine. I suggested rinsing with plain water after voiding and patting dry with plain Kleenex. I am also going to order her miconazole 7 vaginal cream that she can use on a p.r.n. basis it does not appear that it is covered by her insurance so I told her that she was placed to get it [place] and that the 7 day treatment is preferable to the 3 or 1 day in the the 3 or 1 day treatments burn more. I offered prescribe in fluconazole as well but she declined this but I suggested she can talk to her primary care provider about it she has wanting to be careful about not taking anything she might not need to take. Orders: Orders Bacterial Vaginosis Panel Today N89.8 - Other specified noninflammatory disorders of vagina CT NG by PCR Today N89.8 - Other specified noninflammatory disorders of vagina Medications: New miconazole nitrate 2% (Miconazole-7) 1 appful vaginal BEDTIME 7 days 45 grams 3RF Coding Level of Care Code Est Pt Prev Care 40-64y(07453) Diagnoses Type 2 diabetes mellitus with hyperglycemia, without long-term current use of insulin E11.65 Diabetes mellitus salvage determiner insulin use: without salvage determiner use Invasive ductal carcinoma of right breast C50.911 Cervical cancer screening Z12.4 Women's annual routine gynecological examination Z01.419 Left hemiparesis G81.94 Yeast infection involving the vagina and surrounding area B37.31
[2024-09-29 13:31] VITALS: BP 120/70; BMI 38.0
== END 2024-09-29 14:25 | disposition home or self-care (01) ==
PROVIDERS: PCP Internal Medicine; Visit Provider Advanced Practice Midwife
DX: B37.31 Acute candidiasis of vulva and vagina (principal); E11.65 Type 2 diabetes mellitus with hyperglycemia; C50.911 Malignant neoplasm of unspecified site of right female breast; Z01.419 Encounter for gynecological examination (general) (routine) without abnormal findings
CPT/HCPCS: 99214; G0101

== ENCOUNTER 2024-09-29 14:27 | Outpatient (REF) | payer MEDICARE, MEDICAID, SELFPAY ==
[2024-09-30 11:37] LABS: Bacterial Vaginosis PCR POSITIVE (Negative); Candida Group PCR DETECTED (Not Detect); Candida glab krusei PCR NOT DETECTED (Not Detect); Trichomonas vaginalis PCR NOT DETECTED (Not Detect)
[2024-09-30 12:06] LABS: CT PCR NOT DETECTED (Not Detect.); NG PCR NOT DETECTED (Not Detect.)
== END 2024-09-29 14:28 | disposition home or self-care (01) ==
LOC: HO.LAB 14:27
PROVIDERS: Visit Provider Advanced Practice Midwife
DX: Z01.419 Encounter for gynecological examination (general) (routine) without abnormal findings (principal); N89.8 Other specified noninflammatory disorders of vagina; E11.65 Type 2 diabetes mellitus with hyperglycemia; C50.911 Malignant neoplasm of unspecified site of right female breast; G81.94 Hemiplegia, unspecified affecting left nondominant side; B37.31 Acute candidiasis of vulva and vagina
CPT/HCPCS: 36415; 80053; 80061; 81515; 82043; 82306; 82570; 82607; 82746; 83036; 84439; 84443; 85025; 87491; 87591; 93005; 99212; G0101

== ENCOUNTER 2024-10-06 09:45 | Outpatient (AMB) | payer MEDICARE, MEDICAID, SELFPAY ==
[2024-10-06 09:56] VITALS: BP 128/82; PULSE 103; O2SAT 96; BMI 36.9
--- NOTE | 2024-10-06 09:56 | MHC.PC.OV ---
Vital Signs 10/06/24 09:56 Height 5 ft 2 in Weight 202 lb BMI 36.9 BP 128/82 Blood Pressure Location Lt brachial Position Sitting Pulse 103 H Pulse Source Pulse Oximeter Pulse Oximetry (%) 96 Oxygen Delivery Method Room Air Intake Visit Reasons: f/u DM Allergies lisinopril [LISINOPRIL] Allergy (Unknown, Verified 10/06/24 09:56) SWOLLEN LIPS, angioedema, swelling Medication List - Last Reconciled 10/06/24 by Liss Moctezuma MD blood sugar diagnostic (FreeStyle Lite Strips) As directed check the BS once daily blood-glucose meter (FreeStyle Lite Meter kit) As directed cholecalciferol (vitamin D3) (Vitamin D3) 10 mcg PO DAILY clozapine orally; ; 50mg in am 250mg at night docusate sodium 100 mg PO BEDTIME empagliflozin (Jardiance) 25 mg PO DAILY lancets (FreeStyle Lancets) once a day letrozole 2.5 mg PO DAILY leuprolide (3 month) (Lupron Depot) 22.5 mg IM [id number] lorazepam orally; 0.5 mg in am 1 tab in pm losartan 25 mg PO DAILY 90 days lurasidone (Latuda) 80 mg PO 1800 metformin 1,000 mg PO BID metoprolol succinate ER 25 mg PO DAILY metronidazole 0.75%(37.5mg/5gram) 1 appful vaginal BID 5 days miconazole nitrate 2% (Miconazole-7) 1 appful vaginal BEDTIME 7 days multivitamin 1 tab PO DAILY omeprazole 20 mg PO DAILY pregabalin (Lyrica) 50mg qam and 100mg qhs orally ; 30 days simvastatin 10 mg PO BEDTIME Tobacco use date assessed: 10/06/24 Dental Screening Dental Screen Date: 10/06/24 Did you have a dental visit in the last 12 months?: Yes Did you have a dental problem in the last 6 months where you did not have access to dental care?: No Was dental information given to patient?: Patient has dentist HPI f/u DM HPI Details 54-year-old obese female with diabetes mellitus GERD hypertension hypercholesterolemia schizoaffective disorder peripheral neuropathy with right breast cancer coming in for follow-up. Patient is being followed up by hematology oncology. [facility] Medical History Tachycardia Overweight (BMI 25.0-29.9) Microangiopathy Left leg paresthesias COVID-19 virus infection Schizoaffective disorder Colon cancer screening Breast cancer Arthritis Depression Hiatal hernia Hearing loss Facial paralysis Schizophrenia Obesity Iron deficiency anemia Hypertension Hypercholesterolemia GERD (gastroesophageal reflux disease) Type 2 diabetes mellitus with hyperglycemia Surgical History History of removal of Port-a-Cath History of lumpectomy of right breast Hemiparesis History of eye surgery History of placement of ear tubes Family History Father Medical history unknown Mother Medical history unknown Social History Household Members: Significant [facility] Are you a primary medicare sales executive to a significant other at home: No Do you presently have visiting nurse or other home services: Yes Alcohol intake: never Patient Tobacco Use Status: Never used Tobacco Tobacco use type: Cigarette e-Cigarette/Vaping Use: Never Used Second Hand Smoke Exposure: No Advance Directives Date on File: 06/24/21 service: No Current occupational status: unemployed Sexual orientation: Lesbian/Reyes/Homosexual Cognitive needs: No Hearing needs: Yes (hearing aides) Vision needs: Yes (glasses) Female Reproductive History Menstrual Age of Menarche: 13 Questionnaire PHQ-9 Over the last 2 weeks, how often have you been bothered by any of the following problems? 1. Little interest or pleasure in doing things: several days 2. Feeling down, depressed, or hopeless: several days 3. Trouble falling or staying asleep, or sleeping too much: several days 4. Feeling tired or having little energy: several days 5. Poor appetite or overeating: not at all 6. Feeling bad about yourself - or that you are a failure or have let yourself or your family down: several days 7. Trouble concentrating on things, such as reading the newspaper or watching television: several days 8. Moving or speaking so slowly that other people could have noticed. Or the opposite - being so fidgety or restless that you have been moving around a lot more than usual: not at all 9. Thoughts that you would be better off or of hurting yourself in some way: not at all Total score: 6 Depression Screening Interpretation: Positive Depression Screening Follow-up: Existing condition and In treatment Depression Screening Done: Yes Source: Developed by Drs. Baldev Floyd, Елена Wolff, Sina Reyes and colleagues, with an educational patti from [employer]. Thrive Questionnaire Date Thrive assessed: 10/06/24 I am a: Patient What is your living situation today?: I have a steady place to live Within the past 12 months, did the food you bought not last and you didn't have the money to get more?: Never true Within the past 12 months, did you worry whether your food would run out before you got money to buy more?: Never true Do you have trouble paying for medicines?: No Do you have trouble getting transportation to medical appointments?: No Do you have trouble paying your heating and electricity bill?: No Do you have trouble taking care of your child, family member or friend?: No Do you have trouble with day-to-day activities such as bathing, preparing meals, shopping, managing finances, etc.?: No Are you currently unemployed and looking for a job?: Yes Are you interested in more education?: No Currently or been in a relationship where the following occur: No concerns reported THRIVE Score: 0 AUDIT C Alcohol Use Questionnaire (AUDIT-C) 2. How many drinks containing alcohol do you have on a typical day when you are drinking?: 1 or 2 3. How often do you have six or more drinks on one occasion?: Never Total Score: 0 SPEEDY-7 AMB Questionnaire SPEEDY-7 Date SPEEDY - 7 assessed: 10/06/24 Feeling nervous, anxious, or on edge: 0 = Not at all Not being able to stop or control worryin = Not at all Worrying too much about different things: 0 = Not at all Trouble relaxin = Not at all Being so restless that it is hard to sit still: 0 = Not at all Becoming easily annoyed or irritable: 0 = Not at all Feeling afraid as if something awful might happen: 0 = Not at all Total SPEEDY-7 score (0-4 normal; 5-9 mild; 10-14 moderate; 15-21 severe): 0 Source: Developed by Drs. Baldev Floyd, Елена Wolff, Sina Reyes and colleagues, with an educational patti from [employer]. Physical exam (Primary Care) Vital Signs: Last Vital Signs Pulse 103 H 10/06/24 09:56 BP 128/82 10/06/24 09:56 Pulse Ox 96 10/06/24 09:56 Oxygen Delivery Method Room Air 10/06/24 09:56 BMI result Body Mass Index 36.9 Tobacco/Smoking Status: Tobacco use Status Tobacco use date assessed 10/06/24 10/06/24 09:58 Patient Tobacco Use Status Never used Tobacco 10/06/24 09:58 Tobacco use type Cigarette 10/06/24 09:58 e-Cigarette/Vaping Use Never Used 10/06/24 09:58 PHQ-9: PHQ-9 Score PHQ-9: Total score 6 10/06/24 10:17 Depression Screening Interpretation: Positive Depression Screening Follow-up: Existing condition and In treatment Thrive Assessment: Date of Thrive Assessment Date Thrive assessed 10/06/24 10/06/24 09:58 Currently or been in a relationship where the following occur: No concerns reported Const General: alert; No acute distress Eyes Conjunctivae: conjunctivae normal Resp Auscultation: clear to auscultation bilaterally Cardio Rate: regular rate Rhythm: regular rhythm GI Inspection: Yes normal to inspection Extrem General: Yes normal to inspection and No edema Coding Level of Care Code Est Pt Level 4 (83988) Complex EM visit Add On G2211 Diagnoses Type 2 diabetes mellitus with hyperglycemia, without long-term current use of insulin E11.65 Diabetes mellitus watermelon inspector insulin use: without shelter use Gastroesophageal reflux disease without esophagitis K21.9 Esophagitis presence: without esophagitis Hypercholesterolemia E78.00 Essential hypertension I10 Hypertension type: essential hypertension Class 2 severe obesity due to excess calories with serious comorbidity and body mass index (BMI) of 38.0 to 38.9 in adult E66.01; Z68.38 Body mass index: BMI 38.0-38.9 Obesity classification: adult class 2 (BMI 35 - 39.9) Obesity type: due to excess calories Serious obesity comorbidity presence: with serious comorbidity Schizoaffective disorder, unspecified type F25.9 Schizoaffective disorder type: unspecified Invasive ductal carcinoma of right breast C50.911 Assessment & Plan Assessment & Plan (1) Type 2 diabetes mellitus with hyperglycemia: Comment: Dr. Sanz Code(s): E11.65 - Type 2 diabetes mellitus with hyperglycemia Category: Medical Qualifiers: Diabetes mellitus shelter insulin use: without watermelon inspector use Qualified Code(s): E11.65 - Type 2 diabetes mellitus with hyperglycemia Plan: Decrease the amount of carbohydrate intake, pasta, bread, rice and potatoes are all sugar and that is aside from all the sweet stuff, remember that fruits are good but they are Sweet also. hemoglobin A1c goal of less than 6.5. Patient on Jardiance 25 mg once a day metformin a 1000 mg twice a day (2) GERD (gastroesophageal reflux disease): Code(s): K21.9 - Gastro-esophageal reflux disease without esophagitis Category: Medical Qualifiers: Esophagitis presence: without esophagitis Qualified Code(s): K21.9 - Gastro-esophageal reflux disease without esophagitis Plan: Avoid the foods that causes that usually spicy foods, tomato products, juices, coffee, soda and foods that your sensitive to. After eating do not lie down, allow 3-4 hours before in lie down. And keep the head of bed above 30 degrees to avoid the acid from going up. (3) Hypercholesterolemia: Code(s): E78.00 - Pure hypercholesterolemia, unspecified Category: Medical Plan: Avoid fried foods, chicken skin, eggs, butter margarine, pastries and meat. Be it pork or beef they have a lot of cholesterol LDL goal of less than 100 and triglyceride of less than 150 on simvastatin 10 mg at bedtime (4) Hypertension: Code(s): I10 - Essential (primary) hypertension Category: Medical Qualifiers: Hypertension type: essential hypertension Qualified Code(s): I10 - Essential (primary) hypertension Plan: Continue with blood pressure medication. Decrease salt intake and exercise patient on losartan 25 mg once a day (5) Obesity: Comment: Pt also has T2DM Code(s): E66.9 - Obesity, unspecified Category: Medical Qualifiers: Body mass index: BMI 38.0-38.9 Obesity classification: adult class 2 (BMI 35 - 39.9) Obesity type: due to excess calories Serious obesity comorbidity presence: with serious comorbidity Qualified Code(s): E66.01 - Morbid (severe) obesity due to excess calories; Z68.38 - Body mass index [BMI] 38.0-38.9, adult Plan: diet and exercise (6) Schizoaffective disorder: Comment: [facility] to [facility] (09/2022) Code(s): F25.9 - Schizoaffective disorder, unspecified Category: Medical Qualifiers: Schizoaffective disorder type: unspecified Qualified Code(s): F25.9 - Schizoaffective disorder, unspecified Plan: continue with counseling and therapy (7) Invasive ductal carcinoma of right breast: Comment: Lumpectomy May 2021 Code(s): C50.911 - Malignant neoplasm of unspecified site of right female breast Category: Medical Plan: patient placed on letrozole being followed up by hematology oncology 05/15/2025 mammogram Medications: New metoprolol succinate ER 25 mg PO DAILY 30 tabs 3RF I10 - Essential (primary) hypertension blood-glucose meter,continuous ([employer] G7 Health Counselor) As directed 1 ea 0RF E11.65 - Type 2 diabetes mellitus with hyperglycemia blood-glucose sensor (Dexcom G7 Sensor device) As directed 6 ea 3RF E11.65 - Type 2 diabetes mellitus with hyperglycemia [diabetic shoes] As direct [employer] 1 ea 0RF E11.65 - Type 2 diabetes mellitus with hyperglycemia
--- OUTSIDE RECORDS SUMMARY | 2024-10-06 11:49 | XMS_ITS | Clinical Summary ---
Author Organization Unknown Care Team Providers Care Freight Tallier Name Role Phone KYLE NASH, MEMO Unavailable Unavailable GEORGE HERNANDEZ, ANGELINA Unavailable Unavailable CATARINO HERNANDEZ, ROSA Unavailable Unavailable Payers Payer Name Policy Type Policy Number Effective Date Expira tion Date [place] [id number] ON DEMAND MEDIC[place] - [place] [id number] Problems Condition Name Condition Details Condition Category Status Onset Date Resolution Date Last Treatment Date Treating Clinician Comments SCHIZOAFFECT AMOR DISORDER, UNSPECIFIED Active 09-27 00:00: 00 TYPE 2 DIABETES MELLITUS WITH HYPERGLYCEMI A Active 2022-07 0 00:00: 00 TYPE 2 DIABETES MELLITUS WITH DIABETIC NEUROPATHY, UNSP Active 04-20 00:00: 00 ESSENTIAL (PRIMARY) HYPERTENSION Active 07-27 00:00: 00 HEMIPLGA FOLLOWING CEREBRAL INFRC AFFECTING LEFT NONDOM SIDE Active 07-27 00:00: 00 PERSONAL HISTORY OF SUICIDAL BEHAVIOR Active 07-27 00:00: 00 Allergies, Adverse Reactions, Alerts Allergy Name Allergy Type Status Severity Reaction(s) Onset Date Inactive Date Treating Clinician Comments LISINOPRIL Propensity to adverse reactions Active 12-21 09:16: 25 Medications Ordered Medication Name Filled Medication Name Start Date Stop Date Current Medication? Ordering Clinician Indication Dosage Frequency Signature (SIG) Comments Components aripiprazol e 20 mg tablet 09-02 00:00: 00 12-20 00:00 :00 No [id number] 1 tablet QAM 1 tablet QAM (route: oral) Alternate Route: PO. Med Classific ation: Central Nervous System Agents aspirin 81 mg chewable tablet 3-14 00:00: 00 07-08 23:59 :00 No [id number] 1 tablet EVERY AM 1 tablet EVERY AM (route: oral) Med Classific ation: Hematolog ical Agents cyanocobala min (vitamin B-12) 1,000 mcg capsule 708 00:00: 02-06 23:59 :00 No [id number] 1 capsule EVERY AM 1 capsule EVERY AM (route: oral) Med Classific ation: Electroly te Balance-N utritiona l Products bupropion HCl 100 mg tablet 08-22 00:00: 12-20 00:00 :00 No [id number] 1 tablet Every day 1 tablet Every day (route: oral) Med Classific ation: Central Nervous System Agents Cinnamon 500 mg capsule 12-09 00:00: 00 01-06 23:59 :00 No [id number] 2 capsule DAILY 2 capsule DAILY (route: oral) Med Classific ation: Alternati ve Therapy clonidine HCl 0.1 mg tablet 12-27 00:00: 00 07-22 23:59 :00 No [id number] 1 tablet TWICE A DAY PRN 1 tablet TWICE A DAY PRN (route: oral) Med Classific ation: Cardiovas cular Therapy Agents clozapine 50 mg tablet 12-09 00:00: 00 12-21 23:59 :00 No [id number] 1.5 tablet 2 TIMES DAILY 1.5 tablet 2 TIMES DAILY (route: oral) Med Classific ation: Central Nervous System Agents DOK 100 mg capsule 08-30 00:00: 00 12-21 23:59 :00 No [id number] 1 capsule QD 1 capsule QD (route: oral) Alternate Route: PO. Med Classific ation: Gastroint estinal Therapy Agents ferrous sulfate 324 mg (65 mg iron) tablet,maría yed release 2 00:00: 00 02-03 23:59 :00 No [id number] 1 tablet ONCE A DAY 1 tablet ONCE A DAY (route: oral) Alternate Route: PO. Med Classific ation: Electroly te Balance-N utritiona l Products fluoxetine 20 mg tablet 206 00:00: 00 07-08 23:59 :00 No [id number] 1 tablet QAM 1 tablet QAM (route: oral) Alternate Route: PO. Med Classific ation: Central Nervous System Agents levonorgest rel-ethinyl estradiol 0.1 mg-20 mcg tablet 18 00:00: 00 07-08 23:59 :00 No [id number] 1 tablet Every am 1 tablet Every am (route: oral) Med Classific ation: Contracep tives losartan 25 mg tablet 09 00:00: 00 Yes [id number] 1 tablet EVERY AM 1 tablet EVERY AM (route: oral) Med Classific ation: Cardiovas cular Therapy Agents metformin 1,000 mg tablet 03-12 00:00: 00 Yes [id number] 1 tablet Twice daily 1 tablet Twice daily (route: oral) Med Classific ation: Endocrine omeprazole 20 mg capsule,del ayed release 09-16 00:00: 00 Yes [id number] 1 capsule ONCE DAILY 1 capsule ONCE DAILY (route: oral) Alternate Route: PO. Med Classific ation: Gastroint estinal Therapy Agents simvastatin 5 mg tablet 09-16 00:00: 00 07-12 23:59 :00 No [id number] 1 tablet QD 1 tablet QD (route: oral) Alternate Route: PO. Med Classific ation: Cardiovas cular Therapy Agents Vitamin C 1,000 mg tablet 12-09 00:00: 00 01-06 23:59 :00 No [id number] 1 tablet EVERY AM 1 tablet EVERY AM (route: oral) Med Classific ation: Electroly te Balance-N utritiona l Products Vitamin D3 25 mcg (1,000 unit) capsule 12-09 00:00: 00 12-21 23:59 :00 No [id number] 1 capsule EVERY AM 1 capsule EVERY AM (route: oral) Med Classific ation: Electroly te Balance-N utritiona l Products amoxicillin 500 mg capsule 01-01 00:00: 00 01-14 23:59 :00 No [id number] 1 capsule EVERY 8 HOURS 1 capsule EVERY 8 HOURS (route: oral) Med Classific ation: Anti-Infe ctive Agents ibuprofen 800 mg tablet 01-01 00:00: 00 01-14 23:59 :00 No [id number] 1 tablet EVERY 8 HOURS 1 tablet EVERY 8 HOURS (route: oral) Med Classific ation: Analgesic , Anti-infl ammatory or Antipyret ic Jardiance 10 mg tablet 2020-07 00:00: 00 06-03 23:59 :00 No [id number] 1 tablet DAILY 1 tablet DAILY (route: oral) Med Classific ation: Endocrine fluoxetine 10 mg capsule 2020-07 2-13 00:00: 00 08-26 23:59 :00 No [id number] 1 capsule DAILY 1 capsule DAILY (route: oral) Med Classific ation: Central Nervous System Agents clonidine HCl 0.1 mg tablet 2020-07 00:00: 00 12-21 23:59 :00 No [id number] 1 tablet 3 TIMES DAILY 1 tablet 3 TIMES DAILY (route: oral) Med Classific ation: Cardiovas cular Therapy Agents dexamethaso ne 4 mg tablet 08-26 00:00: 00 12-21 23:59 :00 No [id number] Per instruc tions DIRECTED Per instructio ns DIRECTED (route: oral) Med Classific ation: Endocrine Jardiance 10 mg tablet 08-26 00:00: 00 08-18 23:59 :00 No [id number] 1 tablet DAILY 1 tablet DAILY (route: oral) Med Classific ation: Endocrine ondansetron 8 mg disintegrat ing tablet 08-26 00:00: 00 10-13 23:59 :00 No [id number] Per instruc tions EVERY 8 HOURS Per instructio ns EVERY 8 HOURS (route: oral) Med Classific ation: Gastroint estinal Therapy Agents clonidine HCl 0.1 mg tablet 12-21 00:00: 00 08-13 23:59 :00 No [id number] 1 tablet 2 TIMES DAILY 1 tablet 2 TIMES DAILY (route: oral) Med Classific ation: Cardiovas cular Therapy Agents clonidine HCl 0.1 mg tablet 12-21 00:00: 00 08-13 23:59 :00 No [id number] 1 tablet NEEDED 1 tablet NEEDED (route: oral) Med Classific ation: Cardiovas cular Therapy Agents clozapine 100 mg tablet 12-21 00:00: 00 02-15 23:59 :00 No [id number] 1.5 tablet 2 TIMES DAILY 1.5 tablet 2 TIMES DAILY (route: oral) Med Classific ation: Central Nervous System Agents docusate sodium 100 mg capsule 12-21 00:00: 00 01-06 23:59 :00 No [id number] 2 capsule BEDTIME 2 capsule BEDTIME (route: oral) Med Classific ation: Gastroint estinal Therapy Agents Latuda 80 mg tablet 12-21 00:00: 00 Yes [id number] 1 tablet DAILY 1 tablet DAILY (route: oral) Med Classific ation: Central Nervous System Agents lorazepam 1 mg tablet 12-21 00:00: 00 08-13 23:59 :00 No [id number] 1 tablet 2 TIMES DAILY 1 tablet 2 TIMES DAILY (route: oral) Med Classific ation: Central Nervous System Agents Lovenox 40 mg/0.4 mL subcutaneou s syringe 12-21 00:00: 00 02-06 23:59 :00 No [id number] 40 mg DAILY 40 mg DAILY (route: subcutaneo us) Med Classific ation: Hematolog ical Agents prazosin 1 mg capsule 12-21 00:00: 00 01-03 23:59 :00 No [id number] 1 capsule NEEDED 1 capsule NEEDED (route: oral) Med Classific ation: Cardiovas cular Therapy Agents trazodone 100 mg tablet 12-21 00:00: 00 01-06 23:59 :00 No [id number] 1 tablet NEEDED 1 tablet NEEDED (route: oral) Med Classific ation: Central Nervous System Agents Vitamin D3 10 mcg (400 unit) tablet 12-21 00:00: 00 08-25 23:59 :00 No [id number] 1 tablet DAILY 1 tablet DAILY (route: oral) Med Classific ation: Electroly te Balance-N utritiona l Products docusate sodium 100 mg capsule 01-06 00:00: 00 Yes [id number] 1 capsule DAILY 1 capsule DAILY (route: oral) Med Classific ation: Gastroint estinal Therapy Agents trazodone 100 mg tablet 6-13 00:00: 00 03-03 23:59 :00 No [id number] Per instruc tions BEDTIME Per instructio ns BEDTIME (route: oral) Med Classific ation: Central Nervous System Agents gabapentin 100 mg capsule 2021-07 2-20 00:00: 00 07-15 23:59 :00 No [id number] 1 capsule 2 TIMES DAILY 1 capsule 2 TIMES DAILY (route: oral) Alternate Route: NONE. Med Classific ation: Central Nervous System Agents pregabalin 50 mg capsule - 00:00: 00 04-12 23:59 :00 No 1 capsule 2 TIMES DAILY 1 capsule 2 TIMES DAILY (route: oral) Med Classific ation: Central Nervous System Agents lorazepam 1 mg tablet -18 00:00: 00 Yes [id number] 0.5 tablet EVERY AM 0.5 tablet EVERY AM (route: oral) Med Classific ation: Central Nervous System Agents letrozole 2.5 mg tablet 02-03 00:00: 00 Yes 1 tablet BEDTIME 1 tablet BEDTIME (route: oral) Med Classific ation: Antineopl astics Xarelto 20 mg tablet 02-03 00:00: 00 06-23 23:59 :00 No 1 tablet DAILY 1 tablet DAILY (route: oral) Med Classific ation: Hematolog ical Agents Jardiance 25 mg tablet 1- 00:00: 00 Yes 1 tablet DAILY 1 tablet DAILY (route: oral) Med Classific ation: Endocrine Vitamin D3 10 mcg (400 unit) tablet 1-31 00:00: 00 04-21 23:59 :00 No 1 tablet DIRECTED 1 tablet DIRECTED (route: oral) Med Classific ation: Electroly te Balance-N utritiona l Products clozapine 100 mg tablet - 00:00: 00 03-01 23:59 :00 No Per instruc tions DIRECTED Per instructio ns DIRECTED (route: oral) Med Classific ation: Central Nervous System Agents clozapine 100 mg tablet 03-01 00:00: 00 03-24 23:59 :00 No 1 tablet EVERY AM 1 tablet EVERY AM (route: oral) Med Classific ation: Central Nervous System Agents clozapine 200 mg disintegrat ing tablet 03-01 00:00: 00 03-24 23:59 :00 No 1 tablet BEDTIME 1 tablet BEDTIME (route: oral) Med Classific ation: Central Nervous System Agents multivitami n tablet 03-08 00:00: 00 Yes 1 tablet DAILY 1 tablet DAILY (route: oral) Med Classific ation: Electroly te Balance-N utritiona l Products clozapine 200 mg tablet 03-24 00:00: 00 Yes 1 tablet BEDTIME 1 tablet BEDTIME (route: oral) Med Classific ation: Central Nervous System Agents Clozaril 50 mg tablet 03-24 00:00: 00 Yes 1 tablet 2 TIMES DAILY 1 tablet 2 TIMES DAILY (route: oral) Med Classific ation: Central Nervous System Agents pregabalin 50 mg capsule 18 00:00: 00 Yes 1 capsule EVERY AM 1 capsule EVERY AM (route: oral) Med Classific ation: Central Nervous System Agents pregabalin 50 mg capsule 18 00:00: 00 Yes 2 capsule EVERY PM 2 capsule EVERY PM (route: oral) Med Classific ation: Central Nervous System Agents Vitamin D3 10 mcg (400 unit) tablet 04-21 00:00: 00 Yes 1 tablet EVERY AM 1 tablet EVERY AM (route: oral) Med Classific ation: Electroly te Balance-N utritiona l Products lorazepam 1 mg tablet 2023-07 1-26 00:00: 00 Yes 1 tablet BEDTIME 1 tablet BEDTIME (route: oral) Med Classific ation: Central Nervous System Agents simvastatin 10 mg tablet 2023-07 2-17 00:00: 00 Yes 1 tablet BEDTIME 1 tablet BEDTIME (route: oral) Med Classific ation: Cardiovas cular Therapy Agents METFORMIN ORAL 3-14 00:00: 00 02-12 00:00 :00 No [id number] Twice a day [id number] Twice a day (route: ) Med Classific ation: ENDOCRINE METFORMIN ORAL 02-12 00:00: 00 03-12 00:00 :00 No 500 mg1 tab TWICE-TIGRE Y 500 mg1 tab TWICE-TIGRE Y (route: ) Med Classific ation: ENDOCRINE Vital Signs Vital Name Observation Time Observation Value Commen ts Temperature 2024-09-27 10:54:00.000 97.6 [degF] Temperature 2024-09-13 11:08:00.000 97.6 [degF] Temperature 2024-09-06 11:12:00.000 97.4 [degF] Temperature 2024-08-30 10:55:00.000 97.7 [degF] Temperature 2024-08-23 12:09:00.000 97.8 [degF] Pulse 2024-09-27 10:54:00.000 112 /min Pulse 2024-09-13 11:08:00.000 110 /min Pulse 2024-09-06 11:12:00.000 111 /min Pulse 2024-08-30 10:55:00.000 115 /min Pulse 2024-08-23 12:09:00.000 105 /min O2 Saturation (%) 2024-09-13 11:03:00.000 96 % O2 Saturation (%) 2024-09-06 11:12:00.000 95 % O2 Saturation (%) 2024-08-30 10:55:00.000 97 % Respirations 2024-09-27 10:54:00.000 16 /min Respirations 2024-09-13 11:08:00.000 16 /min Respirations 2024-09-06 11:12:00.000 16 /min Respirations 2024-08-30 10:55:00.000 16 /min Systolic Blood Pressure 2024-09-27 10:54:00.000 122 mm [Hg] Systolic Blood Pressure 2024-09-06 11:12:00.000 130 mm [Hg] Systolic Blood Pressure 2024-08-30 10:55:00.000 140 mm [Hg] Systolic Blood Pressure 2024-08-23 12:09:00.000 122 mm [Hg] Diastolic Blood Pressure 2024-09-27 10:54:00.000 80 mm [Hg] Diastolic Blood Pressure 2024-09-06 11:12:00.000 80 mm [Hg] Diastolic Blood Pressure 2024-08-30 10:55:00.000 80 mm [Hg] Diastolic Blood Pressure 2024-08-23 12:09:00.000 80 mm [Hg] Plan of Treatment Planned Activity Planned Date Details Comments Future Scheduled Test SKILLED NU RSE TO EVALUATE PATIENT, IDENTIFY PRIMARY AND CO-MORBID CONDITIONS CODED PER CODING GUIDELINES, AND DEVELOP PATIENT SPECIFIC PLAN OF CARE THAT INCLUDES PATIENT GOAL FOR HOME HEALTH. [code = SKILLED NURSE TO EVALUATE PATIENT, IDENTIFY PRIMARY AND CO-MORBID CONDITIONS CODED PER CODING GUIDELINES, AND DEVELOP PATIENT SPECIFIC PLAN OF CARE THAT INCLUDES PATIENT GOAL FOR HOME HEALTH.] Future Scheduled Test SKILLED NU RSE WILL MAINTAIN SITUATIONAL AWARENESS FOR SAFETY AND WILL NOTIFY CLINICAL THREAD PULLING MACHINE ATTENDANT AND PHYSICIAN/PROVIDER WITH ANY CHANGE IN CONDITION. [code = SKILLED NURSE WILL MAINTAIN SITUATIONAL AWARENESS FOR SAFETY AND WILL NOTIFY CLINICAL THREAD PULLING MACHINE ATTENDANT AND PHYSICIAN/PROVIDER WITH ANY CHANGE IN CONDITION.] Future Scheduled Test SKILLED NU RSE TO ASSESS PATIENTS PSYCHOSOCIAL STATUS TO IDENTIFY POTENTIAL ISSUES THAT MAY COMPLICATE THE PROVISION OF THE PLAN OF CARE INCLUDING THE PATIENTS ABILITY TO ACCESS COMMUNITY RESOURCES AND PSYCHOSOCIAL SUPPORT SERVICES. [code = SKILLED NURSE TO ASSESS PATIENTS PSYCHOSOCIAL STATUS TO IDENTIFY POTENTIAL ISSUES THAT MAY COMPLICATE THE PROVISION OF THE PLAN OF CARE INCLUDING THE PATIENTS ABILITY TO ACCESS COMMUNITY RESOURCES AND PSYCHOSOCIAL SUPPORT SERVICES.] Future Scheduled Test SKILLED NU RSE TO O/A OF PATIENTS MENTAL/BEHAVIORAL STATUS, ASSESS VITAL SIGNS WEEKLY ALLOW 2 PRNS FOR MEDICATION MANAGEMENT. [code = SKILLED NURSE TO O/A OF PATIENTS MENTAL/BEHAVIORAL STATUS, ASSESS VITAL SIGNS WEEKLY ALLOW 2 PRNS FOR MEDICATION MANAGEMENT.] Future Scheduled Test SKILLED NU RSE TO PERFORM HOME SAFETY AND FALL ASSESSMENT AND PROVIDE INSTRUCTION TO IMPLEMENT HOME SAFETY AND FALL PREVENTION STRATEGIES. [code = SKILLED NURSE TO PERFORM HOME SAFETY AND FALL ASSESSMENT AND PROVIDE INSTRUCTION TO IMPLEMENT HOME SAFETY AND FALL PREVENTION STRATEGIES.] Future Scheduled Test SKILLED NU RSE TO REVIEW PATIENT MEDICATIONS. INSTRUCT PATIENT/CAREGIVER ON MONITORING OF EFFECTIVENESS, ADVERSE DRUG REACTIONS, SIDE EFFECTS OF ALL MEDICATIONS (PRESCRIPTION/-OTC), AND HOW AND WHEN TO REPORT PROBLEMS. [code = SKILLED NURSE TO REVIEW PATIENT MEDICATIONS. INSTRUCT PATIENT/CAREGIVER ON MONITORING OF EFFECTIVENESS, ADVERSE DRUG REACTIONS, SIDE EFFECTS OF ALL MEDICATIONS (PRESCRIPTION/-OTC), AND HOW AND WHEN TO REPORT PROBLEMS.] Future Scheduled Test SKILLED NU RSE TO PRE-POUR MEDICATION PER MEDICATION LIST WEEKLY [code = SKILLED NURSE TO PRE-POUR MEDICATION PER MEDICATION LIST WEEKLY ] Future Scheduled Test SKILLED NU RSE FOR O/A OF ALTERED THOUGHT PROCESS AND/OR DISRUPTION IN COGNITIVE OPERATIONS AND ACTIVITIES [code = SKILLED NURSE FOR O/A OF ALTERED THOUGHT PROCESS AND/OR DISRUPTION IN COGNITIVE OPERATIONS AND ACTIVITIES] Future Scheduled Test MEDICATION S WILL BE HELD AND STORED IN LOCKBOX [code = MEDICATIONS WILL BE HELD AND STORED IN LOCKBOX] Goal 2023-06-23 Patient Goal - MANAGE MY MED ICATIONS Goal 2023-08-25 Patient Goal - MANAGE MY MED ICATIONS Goal 2023-10-20 Patient Goal - S COURTNEY COMPLIANT WITH MEDICATION Goal 2023-12-22 Patient Goal - S COURTNEY COMPLIANT WITH MEDICATION Goal 2024-02-17 Patient Goal - S COURTNEY COMPLIANT WITH MEDICATION Goal 2024-04-19 Patient Goal - S COURTNEY COMPLIANT WITH MEDICATION Goal 2024-06-16 Patient Goal - S COURTNEY COMPLIANT WITH MEDICATION Goal 2024-08-16 Patient Goal - S COURTNEY COMPLIANT WITH MEDICATION Goal Patient Goal - S COURTNEY COMPLIANT WITH MEDICATION Goal Provider Goal - A PLAN OF CARE WILL BE ESTABLISHED THAT MEETS PATIENT'S CARE HOME NEEDS AND INCLUDES PATIENT GOAL FOR HOME HEALTH. Goal Provider Goal - PATIENT WILL REMAIN SAFE IN THE COMMUNITY AND WILL BE FREE OF DANGER TO SELF AND OTHERS THROUGHOUT THE CERTIFICATION PERIOD. Goal Provider Goal - PSYCHOSOCIAL NEEDS WILL BE IDENTIFIED AND PLAN IMPLEMENTED TO MINIMIZE RISK THROUGHOUT CERTIFICATION PERIOD. Goal Provider Goal - ALTERED MENTAL/BEHAVIORAL STATUS WILL BE IDENTIFIED PROMPTLY AND INTERVENTION INITIATED QUICKLY TO MINIMIZE ASSOCIATED RISKS THROUGHOUT CERTIFICATION PERIOD. Goal Provider Goal - PATIENT/CAREGIVER WILL VERBALIZE/DEMONSTRATE EFFECTIVE HOME SAFETY AND FALL PREVENTION STRATEGIES THROUGHOUT CERTIFICATION PERIOD. Goal Provider Goal - PATIENT/CAREGIVER WILL VERBALIZE UNDERSTANDING OF EDUCATION PROVIDED ON MEDICATIONS BY THE END OF THE CERTIFICATION PERIOD. Goal Provider Goal - PATIENT WILL COMPLY WITH MEDICATION WHEN SKILLED NURSE PRE-POURS MEDICATION THROUGHOUT CERTIFICATION PERIOD. Goal Provider Goal - PATIENT WILL BE ABLE TO PERFORM DAILY FUNCTIONS AND HAVE OPTIMAL IMPROVEMENT IN THOUGHT PROCESS THROUGHOUT CERTIFICATION PERIOD. Goal Provider Goal - MEDICATION WILL BE STORED IN LOCKBOX FOR SAFETY. Encounters Start Date/Time End Date/Time Encounter Type Admission Type Attending [facility] Care Department Encounter ID Discharge Date Discharge Status Discharge Condition Discharge Reason Percent Goals Met 2023-04-28 00:00:00 2024-10-18 00:00:00 Outpatient RECERTIFIC ROSA [facility] [id number]
--- OUTSIDE RECORDS SUMMARY | 2024-10-06 11:49 | XMS_ITS | Clinical Summary ---
Author Organization Unknown Care Team Providers Care [place] Man Name Role Phone KYLE NASH, MEMO Unavailable Unavailable GEORGE HERNANDEZ, ANGELINA Unavailable Unavailable CATARINO HERNANDEZ, ROSA Unavailable Unavailable Payers Payer Name Policy Type Policy Number Effective Date Expira tion Date [place] [id number] [place] - [place] [id number] Problems Condition Name Condition Details Condition Category [...] 09-02 00:00: 00 12-20 00:00 :00 No [id number] 1 tablet QAM 1 tablet QAM (route: oral) Alternate Route: PO. Med Classific ation: Central Nervous System Agents aspirin 81 mg chewable tablet 3-14 00:00: 00 07-08 23:59 :00 No [id number] 1 tablet EVERY AM 1 tablet EVERY AM (route: oral) Med Classific ation: Hematolog ical Agents cyanocobala min (vitamin B-12) 1,000 mcg capsule 708 00:00: 02-06 23:59 :00 No [id number] 1 capsule EVERY AM 1 capsule EVERY AM (route: oral) Med Classific ation: Electroly te Balance-N utritiona l Products bupropion HCl 100 mg tablet 08-22 00:00: 12-20 00:00 :00 No [id number] 1 tablet Every day 1 tablet Every day (route: oral) Med Classific ation: Central Nervous System Agents Cinnamon 500 mg capsule 12-09 00:00: 00 01-06 23:59 :00 No [id number] 2 capsule DAILY 2 capsule DAILY (route: oral) Med Classific ation: Alternati ve Therapy clonidine HCl 0.1 mg tablet 12-27 00:00: 00 07-22 23:59 :00 No [id number] 1 tablet TWICE A DAY PRN 1 tablet TWICE A DAY PRN (route: oral) Med Classific ation: Cardiovas cular Therapy Agents clozapine 50 mg tablet 12-09 00:00: 00 12-21 23:59 :00 No [id number] 1.5 tablet 2 TIMES DAILY 1.5 tablet 2 TIMES DAILY (route: oral) Med Classific ation: Central Nervous System Agents DOK 100 mg capsule 08-30 00:00: 00 12-21 23:59 :00 No [id number] 1 capsule QD 1 capsule QD (route: oral) Alternate Route: PO. Med Classific ation: Gastroint estinal Therapy Agents ferrous sulfate 324 mg (65 mg iron) tablet,maría yed release 2 00:00: 00 02-03 23:59 :00 No [id number] 1 tablet ONCE A DAY 1 tablet ONCE A DAY (route: oral) Alternate Route: PO. Med Classific ation: Electroly te Balance-N utritiona l Products fluoxetine 20 mg tablet 206 00:00: 00 07-08 23:59 :00 No [id number] 1 tablet QAM 1 tablet QAM (route: oral) Alternate Route: PO. Med Classific ation: Central Nervous System Agents levonorgest rel-ethinyl estradiol 0.1 mg-20 mcg tablet 18 00:00: 00 07-08 23:59 :00 No [id number] 1 tablet Every am 1 tablet Every am (route: oral) Med Classific ation: Contracep tives losartan 25 mg tablet 09 00:00: 00 Yes [id number] 1 tablet EVERY AM 1 tablet EVERY AM (route: oral) Med Classific ation: Cardiovas cular Therapy Agents metformin 1,000 mg tablet 03-12 00:00: 00 Yes [id number] 1 tablet Twice daily 1 tablet Twice daily (route: oral) Med Classific ation: Endocrine omeprazole 20 mg capsule,del ayed release 09-16 00:00: 00 Yes [id number] 1 capsule ONCE DAILY 1 capsule ONCE DAILY (route: oral) Alternate Route: PO. Med Classific ation: Gastroint estinal Therapy Agents simvastatin 5 mg tablet 09-16 00:00: 00 07-12 23:59 :00 No [id number] 1 tablet QD 1 tablet QD (route: oral) Alternate Route: PO. Med Classific ation: Cardiovas cular Therapy Agents Vitamin C 1,000 mg tablet 12-09 00:00: 00 01-06 23:59 :00 No [id number] 1 tablet EVERY AM 1 tablet EVERY AM (route: oral) Med Classific ation: Electroly te Balance-N utritiona l Products Vitamin D3 25 mcg (1,000 unit) capsule 12-09 00:00: 00 12-21 23:59 :00 No [id number] 1 capsule EVERY AM 1 capsule EVERY AM (route: oral) Med Classific ation: Electroly te Balance-N utritiona l Products amoxicillin 500 mg capsule 01-01 00:00: 00 01-14 23:59 :00 No [id number] 1 capsule EVERY 8 HOURS 1 capsule EVERY 8 HOURS (route: oral) Med Classific ation: Anti-Infe ctive Agents ibuprofen 800 mg tablet 01-01 00:00: 00 01-14 23:59 :00 No [id number] 1 tablet EVERY 8 HOURS 1 tablet EVERY 8 HOURS (route: oral) Med Classific ation: Analgesic , Anti-infl ammatory or Antipyret ic Jardiance 10 mg tablet 2020-07 00:00: 00 06-03 23:59 :00 No [id number] 1 tablet DAILY 1 tablet DAILY (route: oral) Med Classific ation: Endocrine fluoxetine 10 mg capsule 2020-07 2-13 00:00: 00 08-26 23:59 :00 No [id number] 1 capsule DAILY 1 capsule DAILY (route: oral) Med Classific ation: Central Nervous System Agents clonidine HCl 0.1 mg tablet 2020-07 00:00: 00 12-21 23:59 :00 No [id number] 1 tablet 3 TIMES DAILY 1 tablet 3 TIMES DAILY (route: oral) Med Classific ation: Cardiovas cular Therapy Agents dexamethaso ne 4 mg tablet 08-26 00:00: 00 12-21 23:59 :00 No [id number] Per instruc tions DIRECTED Per instructio ns DIRECTED (route: oral) Med Classific ation: Endocrine Jardiance 10 mg tablet 08-26 00:00: 00 08-18 23:59 :00 No [id number] 1 tablet DAILY 1 tablet DAILY (route: oral) Med Classific ation: Endocrine ondansetron 8 mg disintegrat ing tablet 08-26 00:00: 00 10-13 23:59 :00 No [id number] Per instruc tions EVERY 8 HOURS Per instructio ns EVERY 8 HOURS (route: oral) Med Classific ation: Gastroint estinal Therapy Agents clonidine HCl 0.1 mg tablet 12-21 00:00: 00 08-13 23:59 :00 No [id number] 1 tablet 2 TIMES DAILY 1 tablet 2 TIMES DAILY (route: oral) Med Classific ation: Cardiovas cular Therapy Agents clonidine HCl 0.1 mg tablet 12-21 00:00: 00 08-13 23:59 :00 No [id number] 1 tablet NEEDED 1 tablet NEEDED (route: oral) Med Classific ation: Cardiovas cular Therapy Agents clozapine 100 mg tablet 12-21 00:00: 00 02-15 23:59 :00 No [id number] 1.5 tablet 2 TIMES DAILY 1.5 tablet 2 TIMES DAILY (route: oral) Med Classific ation: Central Nervous System Agents docusate sodium 100 mg capsule 12-21 00:00: 00 01-06 23:59 :00 No [id number] 2 capsule BEDTIME 2 capsule BEDTIME (route: oral) Med Classific ation: Gastroint estinal Therapy Agents Latuda 80 mg tablet 12-21 00:00: 00 Yes [id number] 1 tablet DAILY 1 tablet DAILY (route: oral) Med Classific ation: Central Nervous System Agents lorazepam 1 mg tablet 12-21 00:00: 00 08-13 23:59 :00 No [id number] 1 tablet 2 TIMES DAILY 1 tablet 2 TIMES DAILY (route: oral) Med Classific ation: Central Nervous System Agents Lovenox 40 mg/0.4 mL subcutaneou s syringe 12-21 00:00: 00 02-06 23:59 :00 No [id number] 40 mg DAILY 40 mg DAILY (route: subcutaneo us) Med Classific ation: Hematolog ical Agents prazosin 1 mg capsule 12-21 00:00: 00 01-03 23:59 :00 No [id number] 1 capsule NEEDED 1 capsule NEEDED (route: oral) Med Classific ation: Cardiovas cular Therapy Agents trazodone 100 mg tablet 12-21 00:00: 00 01-06 23:59 :00 No [id number] 1 tablet NEEDED 1 tablet NEEDED (route: oral) Med Classific ation: Central Nervous System Agents Vitamin D3 10 mcg (400 unit) tablet 12-21 00:00: 00 08-25 23:59 :00 No [id number] 1 tablet DAILY 1 tablet DAILY (route: oral) Med Classific ation: Electroly te Balance-N utritiona l Products docusate sodium 100 mg capsule 01-06 00:00: 00 Yes [id number] 1 capsule DAILY 1 capsule DAILY (route: oral) Med Classific ation: Gastroint estinal Therapy Agents trazodone 100 mg tablet 6-13 00:00: 00 03-03 23:59 :00 No [id number] Per instruc tions BEDTIME Per instructio ns BEDTIME (route: oral) Med Classific ation: Central Nervous System Agents gabapentin 100 mg capsule 2021-07 2-20 00:00: 00 07-15 23:59 :00 No [id number] 1 capsule 2 TIMES DAILY 1 capsule 2 TIMES DAILY (route: oral) Alternate Route: NONE. Med Classific ation: Central Nervous System Agents pregabalin 50 mg capsule - 00:00: 00 04-12 23:59 :00 No 1 capsule 2 TIMES DAILY 1 capsule 2 TIMES DAILY (route: oral) Med Classific ation: Central Nervous System Agents lorazepam 1 mg tablet -18 00:00: 00 Yes [id number] 0.5 tablet EVERY AM 0.5 tablet EVERY [...] 3-14 00:00: 00 02-12 00:00 :00 No [id number] Twice a day [id number] Twice a day (route: ) Med Classific [...] AWARENESS FOR SAFETY AND WILL NOTIFY CLINICAL BASS GUITAR TEACHER AND PHYSICIAN/PROVIDER WITH ANY CHANGE IN CONDITION. [code = SKILLED NURSE WILL MAINTAIN SITUATIONAL AWARENESS FOR SAFETY AND WILL NOTIFY CLINICAL BASS GUITAR TEACHER AND PHYSICIAN/PROVIDER WITH ANY CHANGE IN CONDITION.] [...] CARE WILL BE ESTABLISHED THAT MEETS PATIENT'S [facility] NEEDS AND INCLUDES PATIENT GOAL FOR HOME [...] End Date/Time Encounter Type Admission Type Attending [facility] Facility Care Department Encounter ID Discharge Date Discharge Status Discharge Condition Discharge Reason Percent Goals Met 2023-04-28 00:00:00 2024-10-18 00:00:00 Outpatient RECERTIFIC [facility] [id number]
== END 2024-10-06 10:34 | disposition home or self-care (01) ==
LOC: HO.HMCH 09:46
PROVIDERS: PCP Internal Medicine; Visit Provider Internal Medicine
DX: E11.65 Type 2 diabetes mellitus with hyperglycemia (principal); E66.01 Morbid (severe) obesity due to excess calories; F25.9 Schizoaffective disorder, unspecified; C50.911 Malignant neoplasm of unspecified site of right female breast; Z68.38 Body mass index [BMI] 38.0-38.9, adult; K21.9 Gastro-esophageal reflux disease without esophagitis; E78.00 Pure hypercholesterolemia, unspecified; I10 Essential (primary) hypertension

== ENCOUNTER → 2024-10-06 09:45 | Outpatient (BNVA) | payer MEDICARE, MEDICAID, SELFPAY | PROVIDERS: PCP Internal Medicine; Visit Provider Internal Medicine | DX: E11.65 Type 2 diabetes mellitus with hyperglycemia (principal); K21.9 Gastro-esophageal reflux disease without esophagitis; E78.00 Pure hypercholesterolemia, unspecified; I10 Essential (primary) hypertension; E66.01 Morbid (severe) obesity due to excess calories; Z68.38 Body mass index [BMI] 38.0-38.9, adult; F25.9 Schizoaffective disorder, unspecified; C50.911 Malignant neoplasm of unspecified site of right female breast; Z71.3 Dietary counseling and surveillance | CPT/HCPCS: 99212 ==

== ENCOUNTER 2024-10-20 13:23 | Outpatient (AMB) | payer MEDICARE, MEDICAID, SELFPAY ==
--- NOTE | 2024-10-20 13:27 | MHC.OFFVIS ---
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 The patient?s peripheral neuropathy symptoms occur mainly at night, with noted improvement since adjusting pregabalin to 50 mg in the morning and 100 mg at bedtime. Previously, the dosage was 50 mg twice daily. Left hemiparesis involves occasional stumbling and coordination issues, with the need for mindful movement. Diabetes management has improved with new supply approval. Occasional tingling in the left fingers is also noted. Denies recent swelling in the left leg. Upcoming follow-up for previous lumpectomy with Dr. Holden is scheduled. Review of Systems - Neurological: Reports occasional tingling in the left fingers in. - Musculoskeletal: Denies swelling in the left leg. - General: Denies recent changes in health status [facility] Medical History Tachycardia Overweight (BMI 25.0-29.9) Microangiopathy Left leg paresthesias COVID-19 virus infection Schizoaffective disorder Colon cancer screening Breast cancer Arthritis Depression Hiatal hernia Hearing loss Facial paralysis Schizophrenia Obesity Iron deficiency anemia Hypertension Hypercholesterolemia GERD (gastroesophageal reflux disease) Type 2 diabetes mellitus with hyperglycemia Surgical History History of removal of Port-a-Cath History of lumpectomy of right breast Hemiparesis History of eye surgery History of placement of ear tubes Family History Father Medical history unknown Mother Medical history unknown Social History Household Members: Significant Other Housing: Condominium Are you a primary healthcare administrator to a significant other at home: No Do you presently have visiting nurse or other home services: Yes Alcohol intake: never Patient Tobacco Use Status: Never used Tobacco Tobacco use type: Cigarette e-Cigarette/Vaping Use: Never Used Second Hand Smoke Exposure: No Advance Directives Date on File: 06/24/21 service: No Current occupational status: unemployed Sexual orientation: Lesbian/Reyes/Homosexual Cognitive needs: No Hearing needs: Yes (hearing aides) Vision needs: Yes (glasses) Female Reproductive History Menstrual Age of Menarche: 13 Physical Exam Vital Signs: Last Vital Signs Pulse 93 10/20/24 13:29 BP 110/76 10/20/24 13:29 Pulse Ox 95 10/20/24 13:29 Oxygen Delivery Method Room Air 10/20/24 13:29 BMI result Body Mass Index 37.1 Const General: cooperative and no acute distress Orientation/consciousness: patient oriented x3 Resp Effort & Inspection: normal respiratory effort and able to speak in complete sentences Neuro Other: Chronic left facial asymmetry. Negative LUE Tinel, Phalen, medial compression test Left hemiparesis, more notable in LLE Stands easily, steady gait General: patient oriented x3 Cognition (Neuro): normal cognition Psych Appearance: grossly normal Mental Status: mental status grossly normal Speech and movement: Normal speech and movement present Affect: normal affect Attitude: cooperative Assessment & Plan Assessment & Plan (1) Peripheral neuropathy: Code(s): G62.9 - Polyneuropathy, unspecified Category: Medical (2) Left hemiparesis: Code(s): G81.94 - Hemiplegia, unspecified affecting left nondominant side Category: Medical Plan Discussion Notes I discussed with the patient the current management plan for her peripheral neuropathy and left hemiparesis using pregabalin, with the dosing adjusted to 50 mg in the morning and 100 mg at bedtime, emphasizing mindfulness in movement to prevent falls. The potential benefit of considering a carpal tunnel splint for nighttime to manage peripheral tingling in the left fingers was highlighted. The patient was advised to maintain her current management strategy unless changes in symptoms necessitate earlier review, and a six-month follow-up was recommended for further evaluation. Plan Peripheral neuropathy symptoms are managed with pregabalin at 50 mg in the morning and 100 mg at bedtime, with positive effects reported. Mindful movement is emphasized for left hemiparesis. Ibuprofen is recommended for symptom management. Diabetes is supported with newly approved supplies. A carpal tunnel splint is suggested for occasional left finger tingling. Follow-up with myself is suggested in six months unless indicated earlier. Patient was informed and verbally consented to the use of an ambient scribe for clinic note documentation during this visit. Patient Instructions - Continue pregabalin at 50 mg in the morning and 100 mg at bedtime. - Continue OTC nerve I have nerve relief. - Use ibuprofen as needed for pain. - Use mindful techniques when walking to prevent trips or falls. - If needed, consider using an OTC carpal tunnel splint for nighttime finger tingling. - Monitor for any changes in symptoms, including swelling or increased tingling, and return if symptoms worsen. - future considerations: sleep study, LUE EMG/NCS - Follow up with neurology in 6 months or sooner if needed. Coding Level of Care Code Est Pt Level 4 (99260) Diagnoses Peripheral neuropathy G62.9 Left hemiparesis G81.94
[2024-10-20 13:29] VITALS: BP 110/76; PULSE 93; O2SAT 95; BMI 37.1
== END 2024-10-20 14:07 | disposition home or self-care (01) ==
LOC: HO.HSMS 13:24
PROVIDERS: PCP Internal Medicine; Visit Provider Nurse Practitioner Family
DX: G62.9 Polyneuropathy, unspecified (principal); G81.94 Hemiplegia, unspecified affecting left nondominant side
CPT/HCPCS: 99214

== ENCOUNTER → 2024-10-20 13:23 | Outpatient (BNVA) | payer MEDICARE, MEDICAID, SELFPAY | PROVIDERS: PCP Internal Medicine; Visit Provider Nurse Practitioner Family | DX: G62.9 Polyneuropathy, unspecified (principal); G81.94 Hemiplegia, unspecified affecting left nondominant side | CPT/HCPCS: 99212 ==

== ENCOUNTER 2024-11-03 08:57 | Outpatient (AMB) | payer MEDICARE, MEDICAID, SELFPAY ==
--- NOTE | 2024-11-03 08:59 | A.OFFVIS_ITS ---
Vital Signs 11/03/24 09:05 Height 5 ft 2 in Weight 206 lb 4 oz BMI 37.7 BP 139/69 Blood Pressure Location Lt brachial Position Sitting Pulse 91 Intake Visit Reasons: 6m br exam follow up Intake Note: Patient is seen in office for 6 month follow up visit, breast exam. Pt c/o: denies any concerns mm: 05/11/24 Student Career Development Specialist Required: No Studio Camera Operator: Studio Camera Operator Present Accompanied by: Self / Same As Patient Allergies lisinopril [LISINOPRIL] Allergy (Unknown, Verified 11/03/24 09:05) SWOLLEN LIPS, angioedema, swelling HPI Comments Details: 54-year-old female returning for a breast cancer follow-up examination. She underwent ultrasound-guided core biopsy on 05/28/2021 for suspicious right breast density in the 10 o'clock position andwas found to have an infiltrating ductal carcinoma. She subsequently underwent a right breast lumpectomy with needle localization, sentinel node biopsy on 06/24/2021 pathology confirmed an infiltrating ductal carcinoma of the right breast, grade 1, 1.3 cm in diameter, ER/AK positive, HER2 Glendy negative, 1 of 4 nodes positive for metastatic disease; AJCC Stage (8th ed.):? pT1c N1a(sn)(i+). She was evaluated by Dr. Mora on 07/03/2021. Genomic testing with MammaPrint was performed and she was determined to have an absolute chemotherapy benefit greater than 12%. Five year metastasis free survival with chemo hormonal therapy is 96%. The decision was made to proceed with chemotherapy with dose dense AC followed by Taxol. This was followed by radiation therapy performed at [facility] completed on 03/18/2022. She was on tamoxifen but developed blood clots and therefore was switched to letrozole. Annual mammogram obtained on 05/11/2024 revealed no mammographic evidence of malignancy (BI-RADS 2). Routine screening mammogram is recommended in 1 year. She feels well and denies any ongoing breast symptoms. [facility] Medical History Tachycardia Overweight (BMI 25.0-29.9) Microangiopathy Left leg paresthesias COVID-19 virus infection Schizoaffective disorder Colon cancer screening Breast cancer Arthritis Depression Hiatal hernia Hearing loss Facial paralysis Schizophrenia Obesity Iron deficiency anemia Hypertension Hypercholesterolemia GERD (gastroesophageal reflux disease) Type 2 diabetes mellitus with hyperglycemia Surgical History History of removal of Port-a-Cath History of lumpectomy of right breast Hemiparesis History of eye surgery History of placement of ear tubes Family History Father Medical history unknown Mother Medical history unknown Social History Household Members: Significant Other Housing: Condominium Are you a primary director of critical care to a significant other at home: No Do you presently have visiting nurse or other home services: Yes Alcohol intake: never Patient Tobacco Use Status: Never used Tobacco Tobacco use type: Cigarette e-Cigarette/Vaping Use: Never Used Second Hand Smoke Exposure: No Advance Directives Date on File: 06/24/21 service: No Current occupational status: unemployed Sexual orientation: Lesbian/Reyes/Homosexual Cognitive needs: No Hearing needs: Yes (hearing aides) Vision needs: Yes (glasses) Female Reproductive History Menstrual Age of Menarche: 13 Review of Systems Const Denies chills, Denies fever(s), Denies headache(s) and Denies poor appetite ENT Denies dizziness and Denies headache(s) Card Denies chest pain, Denies rapid heart rate, Denies palpitations and Denies slow heart rate Resp Denies chest congestion, Denies cough, Denies pain on inspiration and Denies wheezing GI Denies abdominal pain, Denies bloating, Denies change in stool character, Denies constipation, Denies diarrhea, Denies nausea, Denies vomiting and Denies hematemesis Musc Denies back pain, Denies arthralgias, Denies joint swelling and Denies numbness Skin/Breast Denies change in pigmentation, Denies erythema and Denies rash Neuro Details: Left facial paralysis Denies dizziness, Denies headache(s) and Denies numbness Psych Denies anxiety and Denies depression Endo Details: Diabetes type 2 Denies palpitations Yan/Lymph Denies easy bleeding, Denies easy bruising and Denies lymphadenopathy Aller/Immun Denies wheezing Physical Exam Const General: no acute distress and well developed Nutritional Appearance: well nourished Orientation/consciousness: patient oriented x3 Limitations: no limitations Chest Other: Right breast: Incisions have faded nicely and no residual RT changes noted. No palpable mass, skin change, nipple discharge or enlarged lymph nodes. Left breast reveals no skin change, nipple retraction, nipple discharge, palpable mass, or enlarged lymph node. Resp Effort & Inspection: normal respiratory effort, no audible wheezes, no cough and no respiratory distress Skin Other: Warm and dry, no rash Neuro Other: Mobility Assessment: 1. 3 meter assessment time (seconds): 6 2. Gait observations: slow tentative pace General: patient oriented x3 Extrem Other: No edema Assessment & Plan Assessment & Plan (1) Invasive ductal carcinoma of right breast: Comment: Lumpectomy May 2021 Code(s): C50.911 - Malignant neoplasm of unspecified site of right female breast Category: Medical Plan Patient returns for follow-up breast examination after right breast lumpectomy with needle localization, right axillary sentinel node biopsy for infiltrating ductal carcinoma. She completed chemo and radiation therapy. Wounds are clean and intact with no evidence of tumor recurrence. Left breast is normal as well. She underwent her annual mammogram on 05/11/2024 which revealed no mammographic evidence of malignancy either breast (BI-RADS 2). Routine scree bertram mammogram is recommended in 1 year. I recommended follow-up examination in 6 months, sooner p.r.n.. Coding Level of Care Code Est Pt Level 3 (07704) Complex EM visit Add On G2211 Diagnoses Invasive ductal carcinoma of right breast C50.911
[2024-11-03 09:05] VITALS: BP 139/69; PULSE 91; BMI 37.7
== END 2024-11-03 09:13 | disposition home or self-care (01) ==
LOC: HO.HGS 08:58
PROVIDERS: PCP Internal Medicine; Visit Provider Surgery
DX: C50.911 Malignant neoplasm of unspecified site of right female breast (principal)
CPT/HCPCS: 99213; G2211

== ENCOUNTER → 2024-11-03 08:57 | Outpatient (BNVA) | payer MEDICARE, MEDICAID, SELFPAY | PROVIDERS: PCP Internal Medicine; Visit Provider Surgery | DX: C50.911 Malignant neoplasm of unspecified site of right female breast (principal) | CPT/HCPCS: 99212 ==

== ENCOUNTER 2025-01-19 09:45 | Outpatient (AMB) | payer MEDICARE, MEDICAID, SELFPAY ==
[2025-01-19 09:50] VITALS: BP 128/82; PULSE 91; O2SAT 95; BMI 37.9
--- NOTE | 2025-01-19 09:50 | MHC.PC.OV ---
Vital Signs 01/19/25 09:50 Height 5 ft 2 in Weight 207 lb BMI 37.9 BP 128/82 Blood Pressure Location Lt brachial Position Sitting Pulse 91 Pulse Source Pulse Oximeter Pulse Oximetry (%) 95 Oxygen Delivery Method Room Air Intake Visit Reasons: DM Allergies lisinopril (LISINOPRIL) Allergy (Unknown, Verified 01/19/25 09:50) SWOLLEN LIPS, angioedema, swelling Medication List - Last Reconciled 01/19/25 by Liss Moctezuma MD blood sugar diagnostic (FreeStyle Lite Strips) As directed check the BS once daily blood-glucose meter (FreeStyle Lite Meter kit) As directed blood-glucose sensor ([employer] G7 Sensor device) As directed blood-glucose,dehairing machine tender,cont ([employer] G7 Jewelry Sorter) As directed cholecalciferol (vitamin D3) (Vitamin D3) 10 mcg PO DAILY clozapine orally; ; 50mg in am 250mg at night [diabetic shoes As direct Prosthetic and orthotics solutions] docusate sodium 100 mg PO BEDTIME empagliflozin (Jardiance) 25 mg PO DAILY lancets (FreeStyle Lancets) once a day letrozole 2.5 mg PO DAILY leuprolide (3 month) (Lupron Depot) 22.5 mg IM [id number] lorazepam orally; 0.5 mg in am 1 tab in pm losartan 25 mg PO DAILY 90 days lurasidone (Latuda) 80 mg PO 1800 metformin 1,000 mg PO BID metoprolol succinate ER 25 mg PO DAILY metronidazole 0.75%(37.5mg/5gram) 1 appful vaginal BID 5 days miconazole nitrate 2% (Miconazole-7) 1 appful vaginal BEDTIME 7 days multivitamin 1 tab PO DAILY omeprazole 20 mg PO DAILY pregabalin (Lyrica) 50mg qam and 100mg qhs orally ; 30 days simvastatin 10 mg PO BEDTIME tirzepatide (Mounjaro) 2.5 mg (0.5 mL) subcut QWEEK Tobacco use date assessed: 10/06/24 Dental Screening Dental Screen Date: 10/06/24 [facility] Medical History Tachycardia Overweight (BMI 25.0-29.9) Microangiopathy Left leg paresthesias COVID-19 virus infection Schizoaffective disorder Colon cancer screening Breast cancer Arthritis Depression Hiatal hernia Hearing loss Facial paralysis Schizophrenia Obesity Iron deficiency anemia Hypertension Hypercholesterolemia GERD (gastroesophageal reflux disease) Type 2 diabetes mellitus with hyperglycemia Surgical History History of removal of Port-a-Cath History of lumpectomy of right breast Hemiparesis History of eye surgery History of placement of ear tubes Family History Father Medical history unknown Mother Medical history unknown Social History Household Members: Significant Other Housing: Condominium Are you a primary elderly caregiver to a significant other at home: No Do you presently have visiting nurse or other home services: Yes Alcohol intake: never Patient Tobacco Use Status: Never used Tobacco Tobacco use type: Cigarette e-Cigarette/Vaping Use: Never Used Second Hand Smoke Exposure: No Advance Directives Date on File: 06/24/21 service: No Current occupational status: unemployed Sexual orientation: Lesbian/Reyes/Homosexual Cognitive needs: No Hearing needs: Yes (hearing aides) Vision needs: Yes (glasses) Female Reproductive History Menstrual Age of Menarche: 13 Questionnaire PHQ-9 Over the last 2 weeks, how often have you been bothered by any of the following problems? 1. Little interest or pleasure in doing things: several days 2. Feeling down, depressed, or hopeless: several days 3. Trouble falling or staying asleep, or sleeping too much: more than half the days 4. Feeling tired or having little energy: several days 5. Poor appetite or overeating: not at all 6. Feeling bad about yourself - or that you are a failure or have let yourself or your family down: several days 7. Trouble concentrating on things, such as reading the newspaper or watching television: not at all 8. Moving or speaking so slowly that other people could have noticed. Or the opposite - being so fidgety or restless that you have been moving around a lot more than usual: not at all 9. Thoughts that you would be better off or of hurting yourself in some way: not at all Total score: 6 Depression Screening Interpretation: Positive Depression Screening Done: Yes Source: Developed by Drs. Baldev Floyd, Елена Wolff, Sina Reyes and colleagues, with an educational patti from [employer]. Thrive Questionnaire Date Thrive assessed: 01/12/25 I am a: Patient What is your living situation today?: I have a steady place to live Within the past 12 months, did the food you bought not last and you didn't have the money to get more?: Never true Within the past 12 months, did you worry whether your food would run out before you got money to buy more?: Never true Do you have trouble paying for medicines?: No Do you have trouble getting transportation to medical appointments?: No Do you have trouble paying your heating and electricity bill?: No Do you have trouble taking care of your child, family member or friend?: No Do you have trouble with day-to-day activities such as bathing, preparing meals, shopping, managing finances, etc.?: No Are you currently unemployed and looking for a job?: No Are you interested in more education?: No Please select the resources that you would like help with: None Currently or been in a relationship where the following occur: No concerns reported THRIVE Score: 0 AUDIT C Alcohol Use Questionnaire (AUDIT-C) 1. How often do you have a drink containing alcohol?: Never 3. How often do you have six or more drinks on one occasion?: Never Total Score: 0 SPEEDY-7 AMB Questionnaire SPEEDY-7 Date SPEEDY - 7 assessed: 10/06/24 Feeling nervous, anxious, or on edge: 1 = Several days Not being able to stop or control worryin = Several days Worrying too much about different things: 1 = Several days Trouble relaxin = Several days Being so restless that it is hard to sit still: 1 = Several days Becoming easily annoyed or irritable: 1 = Several days Feeling afraid as if something awful might happen: 1 = Several days Total SPEEDY-7 score (0-4 normal; 5-9 mild; 10-14 moderate; 15-21 severe): 7 Source: Developed by Елена Bean, Sina Reyes and colleagues, with an educational patti from [employer]. Physical exam (Primary Care) Vital Signs: Last Vital Signs Pulse 91 01/19/25 09:50 BP 128/82 01/19/25 09:50 Pulse Ox 95 01/19/25 09:50 Oxygen Delivery Method Room Air 01/19/25 09:50 BMI result Body Mass Index 37.9 Tobacco/Smoking Status: Tobacco use Status Tobacco use date assessed 10/06/24 01/19/25 09:58 Patient Tobacco Use Status Never used Tobacco 01/19/25 09:58 Tobacco use type Cigarette 01/19/25 09:58 e-Cigarette/Vaping Use Never Used 01/19/25 09:58 PHQ-9: PHQ-9 Score PHQ-9: Total score 6 01/19/25 10:18 Depression Screening Interpretation: Positive Thrive Assessment: Date of Thrive Assessment Date Thrive assessed 01/12/25 01/19/25 09:58 Currently or been in a relationship where the following occur: No concerns reported Const General: alert; No acute distress Eyes Conjunctivae: conjunctivae normal Resp Auscultation: clear to auscultation bilaterally Cardio Rate: regular rate Rhythm: regular rhythm GI Inspection: Yes normal to inspection Extrem General: Yes normal to inspection and No edema Results AMB Hemoglobin A1c AMB Hemoglobin A1c 7.2 % Last Edit by Enriqueta Bee CMA on 01/19/25 10:18 Results Reviewed Results Reviewed: Laboratory Last Values Hgb A1c (Clinic) 7.2 % (4.0-6.0) H 01/19/25 10:18 Coding Level of Care Code Est Pt Level 4 (88844) Complex EM visit Add On G2211 Diagnoses Type 2 diabetes mellitus with hyperglycemia, without long-term current use of insulin E11.65 Diabetes mellitus long-term insulin use: without rn endocrinology use Class 2 severe obesity due to excess calories with serious comorbidity and body mass index (BMI) of 38.0 to 38.9 in adult E66.01; Z68.38 Body mass index: BMI 38.0-38.9 Obesity classification: adult class 2 (BMI 35 - 39.9) Obesity type: due to excess calories Serious obesity comorbidity presence: with serious comorbidity Essential hypertension I10 Hypertension type: essential hypertension Hypercholesterolemia E78.00 Schizoaffective disorder, unspecified type F25.9 Schizoaffective disorder type: unspecified Gastroesophageal reflux disease without esophagitis K21.9 Esophagitis presence: without esophagitis Invasive ductal carcinoma of right breast C50.911 Peripheral neuropathy G62.9 Assessment & Plan Assessment & Plan (1) Type 2 diabetes mellitus with hyperglycemia: Comment: Dr. Sanz Code(s): E11.65 - Type 2 diabetes mellitus with hyperglycemia Category: Medical Qualifiers: Diabetes mellitus rn endocrinology insulin use: without rn endocrinology use Qualified Code(s): E11.65 - Type 2 diabetes mellitus with hyperglycemia Plan: Decrease the amount of carbohydrate intake, pasta, bread, rice and potatoes are all sugar and that is aside from all the sweet stuff, remember that fruits are good but they are Sweet also. Hemoglobin A1c goal of less than 6.5. Patient on Jardiance 25 mg once a day metformin a 1000 mg twice a day (2) Obesity: Comment: Pt also has T2DM Code(s): E66.9 - Obesity, unspecified Category: Medical Qualifiers: Body mass index: BMI 38.0-38.9 Obesity classification: adult class 2 (BMI 35 - 39.9) Obesity type: due to excess calories Serious obesity comorbidity presence: with serious comorbidity Qualified Code(s): E66.01 - Morbid (severe) obesity due to excess calories; Z68.38 - Body mass index [BMI] 38.0-38.9, adult Plan: Diet and exercise (3) Hypertension: Code(s): I10 - Essential (primary) hypertension Category: Medical Qualifiers: Hypertension type: essential hypertension Qualified Code(s): I10 - Essential (primary) hypertension Plan: Continue with blood pressure medication. Decrease salt intake and exercise patient on metoprolol 25 mg once a day losartan 25 mg once a day (4) Hypercholesterolemia: Code(s): E78.00 - Pure hypercholesterolemia, unspecified Category: Medical Plan: Avoid fried foods, chicken skin, eggs, butter margarine, pastries and meat. Be it pork or beef they have a lot of cholesterol LDL goal of less than 100 and triglyceride of less than 150 patient does take simvastatin 10 mg at bedtime (5) Schizoaffective disorder: Comment: [facility] to [facility] (09/2022) Code(s): F25.9 - Schizoaffective disorder, unspecified Category: Medical Qualifiers: Schizoaffective disorder type: unspecified Qualified Code(s): F25.9 - Schizoaffective disorder, unspecified Plan: Continue with counseling and therapy patient on Latuda lorazepam clozapine (6) GERD (gastroesophageal reflux disease): Code(s): K21.9 - Gastro-esophageal reflux disease without esophagitis Category: Medical Qualifiers: Esophagitis presence: without esophagitis Qualified Code(s): K21.9 - Gastro-esophageal reflux disease without esophagitis Plan: Avoid the foods that causes that usually spicy foods, tomato products, juices, coffee, soda and foods that your sensitive to. After eating do not lie down, allow 3-4 hours before in lie down. And keep the head of bed above 30 degrees to avoid the acid from going up. (7) Invasive ductal carcinoma of right breast: Comment: Lumpectomy May 2021 Code(s): C50.911 - Malignant neoplasm of unspecified site of right female breast Category: Medical Plan: Patient continue to follow-up with Hematology-Oncology in the breast surgeon continuing with letrozole and leuprolide (8) Peripheral neuropathy: Code(s): G62.9 - Polyneuropathy, unspecified Category: Medical Plan: Patient follows up with Neurology and has been placed on pregabalin Plan History of Present Illness The patient is a 54-year-old female presenting for a follow-up visit. The patient has a history of diabetes mellitus, managed with Jardiance and metformin, with a hemoglobin A1c of 7.2, indicating a need for improved glycemic control. Januvia was discussed as an additional medication to aid in lowering blood sugar levels. She was diagnosed with right breast cancer in 2020, underwent a lumpectomy, and continues follow-up with her breast surgeon and hematology oncology. Her mammogram is up to date as of April 2024. The patient has a history of deep vein thrombosis in the left upper extremity, related to line placement and tamoxifen use, for which she completed anticoagulation therapy. She has been diagnosed with peripheral neuropathy and polyneuropathy, managed with pregabalin, and follows up with neurology. The patient has hypertension, managed with metoprolol and losartan, with a blood pressure of 110/70 mmHg recorded during the visit. Her hypercholesterolemia is managed with simvastatin, with an LDL of 82 mg/dL, indicating good control. The patient has a history of schizoaffective disorder, managed with Latuda and lorazepam, and continues with counseling and therapy. She has a history of gastroesophageal reflux disease and continues to follow up with hematology oncology and the breast surgeon. Health Maintenance - Mammogram up to date as of April 2024 - Colonoscopy last performed in December 2022 Social History Review of Systems Physical Exam - Cardiovascular: Blood pressure recorded at 110/70 mmHg Results - Labs: Hemoglobin A1c recorded at 7.2 - Labs: LDL cholesterol recorded at 82 mg/dL Plan The patient's diabetes management plan includes continuing Jardiance and metformin, with the addition of Januvia to improve glycemic control, aiming for a hemoglobin A1c of less than 7. For breast cancer, follow-up with the breast surgeon and hematology oncology will continue, with the next appointment in October, and her mammogram is current as of April 2024. The patient has completed anticoagulation therapy for deep vein thrombosis and will monitor for recurrence. Management of peripheral neuropathy and polyneuropathy includes pregabalin, with ongoing neurology follow-up. Hypertension is managed with metoprolol and losartan, with a satisfactory blood pressure of 110/70 mmHg. Hypercholesterolemia is managed with simvastatin, maintaining an LDL of 82 mg/dL. For schizoaffective disorder, the patient will continue with Latuda and lorazepam, along with counseling and therapy. The patient will continue to follow up with hematology oncology and the breast surgeon for gastroesophageal reflux disease management. Patient was informed and verbally consented to the use of an ambient scribe for clinic note documentation during this visit. Discussion Notes During the visit, we discussed the addition of Januvia to the patient's diabetes management plan to help achieve better glycemic control, aiming for a hemoglobin A1c of less than 7. We reviewed her breast cancer follow-up schedule, confirming her mammogram is up to date as of April 2024, and her next appointment with the breast surgeon and hematology oncology is in October. The patient has completed anticoagulation therapy for her deep vein thrombosis, and we will continue to monitor for any recurrence. We also discussed her peripheral neuropathy management with pregabalin and ongoing neurology follow-up. Her hypertension is well-controlled with metoprolol and losartan, and her hypercholesterolemia is managed with simvastatin, maintaining an LDL of 82 mg/dL. The patient will continue with Latuda and lorazepam for schizoaffective disorder, along with counseling and therapy. Patient Instructions - Continue taking Jardiance, metformin, and start Januvia as prescribed. - Follow up with the breast surgeon and hematology oncology as scheduled. - Monitor for any signs of deep vein thrombosis recurrence. - Continue pregabalin for neuropathy and follow up with neurology. - Maintain current hypertension and cholesterol medications. - Continue Latuda and lorazepam for schizoaffective disorder and attend counseling sessions. Orders: Orders AMB Hemoglobin A1c Today Z13.9 - Encounter for screening, unspecified Medications: New tirzepatide (Mounjaro) for 4 weeks 2.5 mg (0.5 mL) subcut QWEEK 2 mL 0RF E11.65 - Type 2 diabetes mellitus with hyperglycemia
== END 2025-01-19 10:30 | disposition home or self-care (01) ==
LOC: HO.HMCH 09:46
PROVIDERS: PCP Internal Medicine; Visit Provider Internal Medicine
DX: E11.65 Type 2 diabetes mellitus with hyperglycemia (principal); E66.01 Morbid (severe) obesity due to excess calories; F25.9 Schizoaffective disorder, unspecified; C50.911 Malignant neoplasm of unspecified site of right female breast; Z68.38 Body mass index [BMI] 38.0-38.9, adult; I10 Essential (primary) hypertension; E78.00 Pure hypercholesterolemia, unspecified; K21.9 Gastro-esophageal reflux disease without esophagitis; G62.9 Polyneuropathy, unspecified

== ENCOUNTER → 2025-01-19 09:45 | Outpatient (BNVA) | payer MEDICARE, MEDICAID, SELFPAY | PROVIDERS: PCP Internal Medicine; Visit Provider Internal Medicine | DX: E11.65 Type 2 diabetes mellitus with hyperglycemia (principal); E66.01 Morbid (severe) obesity due to excess calories; Z68.38 Body mass index [BMI] 38.0-38.9, adult; I10 Essential (primary) hypertension; E78.00 Pure hypercholesterolemia, unspecified; F25.9 Schizoaffective disorder, unspecified; K21.9 Gastro-esophageal reflux disease without esophagitis; G62.9 Polyneuropathy, unspecified; C50.911 Malignant neoplasm of unspecified site of right female breast; Z71.3 Dietary counseling and surveillance | CPT/HCPCS: 83036; 99212 ==

== ENCOUNTER 2025-04-21 07:55 | Outpatient (AMB) | payer MEDICARE, MEDICAID, SELFPAY ==
--- OUTSIDE RECORDS SUMMARY | 2025-04-15 20:00 | XMS_ITS | Clinical Summary ---
Author Organization Unknown Care Team Providers Care Operations And Maintenance Manager Name Role Phone KYLE NASH, MEMO Unavailable Unavailable GEORGE HERNANDEZ, ANGELINA Unavailable Unavailable CATARINO HERNANDEZ, ROSA Unavailable Unavailable Payers Payer Name Policy Type Policy Number Effective Date Expira tion Date [place] [id number] ON DEMAND MEDICARE - [place]ILL[place] - [place] [id number] Problems Condition Name Condition Details Condition Category [...] 09-02 00:00: 00 12-20 00:00 :00 No [id number] 1 tablet QAM 1 tablet QAM (route: oral) Alternate Route: PO. Med Classific ation: Central Nervous System Agents aspirin 81 mg chewable tablet 3-14 00:00: 00 07-08 23:59 :00 No [id number] 1 tablet EVERY AM 1 tablet EVERY AM (route: oral) Med Classific ation: Hematolog ical Agents cyanocobala min (vitamin B-12) 1,000 mcg capsule 708 00:00: 02-06 23:59 :00 No [id number] 1 capsule EVERY AM 1 capsule EVERY AM (route: oral) Med Classific ation: Electroly te Balance-N utritiona l Products bupropion HCl 100 mg tablet 08-22 00:00: 12-20 00:00 :00 No [id number] 1 tablet Every day 1 tablet Every day (route: oral) Med Classific ation: Central Nervous System Agents Cinnamon 500 mg capsule 12-09 00:00: 00 01-06 23:59 :00 No [id number] 2 capsule DAILY 2 capsule DAILY (route: oral) Med Classific ation: Alternati ve Therapy clonidine HCl 0.1 mg tablet 12-27 00:00: 00 07-22 23:59 :00 No [id number] 1 tablet TWICE A DAY PRN 1 tablet TWICE A DAY PRN (route: oral) Med Classific ation: Cardiovas cular Therapy Agents clozapine 50 mg tablet 12-09 00:00: 00 12-21 23:59 :00 No [id number] 1.5 tablet 2 TIMES DAILY 1.5 tablet 2 TIMES DAILY (route: oral) Med Classific ation: Central Nervous System Agents DOK 100 mg capsule 08-30 00:00: 00 12-21 23:59 :00 No [id number] 1 capsule QD 1 capsule QD (route: oral) Alternate Route: PO. Med Classific ation: Gastroint estinal Therapy Agents ferrous sulfate 324 mg (65 mg iron) tablet,maría yed release 2 00:00: 00 02-03 23:59 :00 No [id number] 1 tablet ONCE A DAY 1 tablet ONCE A DAY (route: oral) Alternate Route: PO. Med Classific ation: Electroly te Balance-N utritiona l Products fluoxetine 20 mg tablet 206 00:00: 00 07-08 23:59 :00 No [id number] 1 tablet QAM 1 tablet QAM (route: oral) Alternate Route: PO. Med Classific ation: Central Nervous System Agents levonorgest rel-ethinyl estradiol 0.1 mg-20 mcg tablet 18 00:00: 00 07-08 23:59 :00 No [id number] 1 tablet Every am 1 tablet Every am (route: oral) Med Classific ation: Contracep tives losartan 25 mg tablet 09 00:00: 00 Yes [id number] 1 tablet EVERY AM 1 tablet EVERY AM (route: oral) Med Classific ation: Cardiovas cular Therapy Agents metformin 1,000 mg tablet 03-12 00:00: 00 Yes [id number] 1 tablet Twice daily 1 tablet Twice daily (route: oral) Med Classific ation: Endocrine omeprazole 20 mg capsule,del ayed release 09-16 00:00: 00 Yes [id number] 1 capsule ONCE DAILY 1 capsule ONCE DAILY (route: oral) Alternate Route: PO. Med Classific ation: Gastroint estinal Therapy Agents simvastatin 5 mg tablet 09-16 00:00: 00 07-12 23:59 :00 No [id number] 1 tablet QD 1 tablet QD (route: oral) Alternate Route: PO. Med Classific ation: Cardiovas cular Therapy Agents Vitamin C 1,000 mg tablet 12-09 00:00: 00 01-06 23:59 :00 No [id number] 1 tablet EVERY AM 1 tablet EVERY AM (route: oral) Med Classific ation: Electroly te Balance-N utritiona l Products Vitamin D3 25 mcg (1,000 unit) capsule 12-09 00:00: 00 12-21 23:59 :00 No [id number] 1 capsule EVERY AM 1 capsule EVERY AM (route: oral) Med Classific ation: Electroly te Balance-N utritiona l Products amoxicillin 500 mg capsule 01-01 00:00: 00 01-14 23:59 :00 No [id number] 1 capsule EVERY 8 HOURS 1 capsule EVERY 8 HOURS (route: oral) Med Classific ation: Anti-Infe ctive Agents ibuprofen 800 mg tablet 01-01 00:00: 00 01-14 23:59 :00 No [id number] 1 tablet EVERY 8 HOURS 1 tablet EVERY 8 HOURS (route: oral) Med Classific ation: Analgesic , Anti-infl ammatory or Antipyret ic Jardiance 10 mg tablet 2020-07 00:00: 00 06-03 23:59 :00 No [id number] 1 tablet DAILY 1 tablet DAILY (route: oral) Med Classific ation: Endocrine fluoxetine 10 mg capsule 2020-07 2-13 00:00: 00 08-26 23:59 :00 No [id number] 1 capsule DAILY 1 capsule DAILY (route: oral) Med Classific ation: Central Nervous System Agents clonidine HCl 0.1 mg tablet 2020-07 00:00: 00 12-21 23:59 :00 No [id number] 1 tablet 3 TIMES DAILY 1 tablet 3 TIMES DAILY (route: oral) Med Classific ation: Cardiovas cular Therapy Agents dexamethaso ne 4 mg tablet 08-26 00:00: 00 12-21 23:59 :00 No [id number] Per instruc tions DIRECTED Per instructio ns DIRECTED (route: oral) Med Classific ation: Endocrine Jardiance 10 mg tablet 08-26 00:00: 00 08-18 23:59 :00 No [id number] 1 tablet DAILY 1 tablet DAILY (route: oral) Med Classific ation: Endocrine ondansetron 8 mg disintegrat ing tablet 08-26 00:00: 00 10-13 23:59 :00 No [id number] Per instruc tions EVERY 8 HOURS Per instructio ns EVERY 8 HOURS (route: oral) Med Classific ation: Gastroint estinal Therapy Agents clonidine HCl 0.1 mg tablet 12-21 00:00: 00 08-13 23:59 :00 No [id number] 1 tablet 2 TIMES DAILY 1 tablet 2 TIMES DAILY (route: oral) Med Classific ation: Cardiovas cular Therapy Agents clonidine HCl 0.1 mg tablet 12-21 00:00: 00 08-13 23:59 :00 No [id number] 1 tablet NEEDED 1 tablet NEEDED (route: oral) Med Classific ation: Cardiovas cular Therapy Agents clozapine 100 mg tablet 12-21 00:00: 00 02-15 23:59 :00 No [id number] 1.5 tablet 2 TIMES DAILY 1.5 tablet 2 TIMES DAILY (route: oral) Med Classific ation: Central Nervous System Agents docusate sodium 100 mg capsule 12-21 00:00: 00 01-06 23:59 :00 No [id number] 2 capsule BEDTIME 2 capsule BEDTIME (route: oral) Med Classific ation: Gastroint estinal Therapy Agents Latuda 80 mg tablet 12-21 00:00: 00 Yes [id number] 1 tablet DAILY 1 tablet DAILY (route: oral) Med Classific ation: Central Nervous System Agents lorazepam 1 mg tablet 12-21 00:00: 00 08-13 23:59 :00 No [id number] 1 tablet 2 TIMES DAILY 1 tablet 2 TIMES DAILY (route: oral) Med Classific ation: Central Nervous System Agents Lovenox 40 mg/0.4 mL subcutaneou s syringe 12-21 00:00: 00 02-06 23:59 :00 No [id number] 40 mg DAILY 40 mg DAILY (route: subcutaneo us) Med Classific ation: Hematolog ical Agents prazosin 1 mg capsule 12-21 00:00: 00 01-03 23:59 :00 No [id number] 1 capsule NEEDED 1 capsule NEEDED (route: oral) Med Classific ation: Cardiovas cular Therapy Agents trazodone 100 mg tablet 12-21 00:00: 00 01-06 23:59 :00 No [id number] 1 tablet NEEDED 1 tablet NEEDED (route: oral) Med Classific ation: Central Nervous System Agents Vitamin D3 10 mcg (400 unit) tablet 12-21 00:00: 00 08-25 23:59 :00 No [id number] 1 tablet DAILY 1 tablet DAILY (route: oral) Med Classific ation: Electroly te Balance-N utritiona l Products docusate sodium 100 mg capsule 01-06 00:00: 00 Yes [id number] 1 capsule DAILY 1 capsule DAILY (route: oral) Med Classific ation: Gastroint estinal Therapy Agents trazodone 100 mg tablet 6-13 00:00: 00 03-03 23:59 :00 No [id number] Per instruc tions BEDTIME Per instructio ns BEDTIME (route: oral) Med Classific ation: Central Nervous System Agents gabapentin 100 mg capsule 2021-07 2-20 00:00: 00 07-15 23:59 :00 No [id number] 1 capsule 2 TIMES DAILY 1 capsule 2 TIMES DAILY (route: oral) Alternate Route: NONE. Med Classific ation: Central Nervous System Agents pregabalin 50 mg capsule - 00:00: 00 04-12 23:59 :00 No [id number] 1 capsule 2 TIMES DAILY 1 capsule 2 TIMES DAILY (route: oral) Med Classific ation: Central Nervous System Agents lorazepam 1 mg tablet 08-13 00:00: 00 Yes [id number] 0.5 tablet EVERY AM 0.5 tablet EVERY AM (route: oral) Med Classific ation: Central Nervous System Agents letrozole 2.5 mg tablet 02-03 00:00: 00 Yes [id number] 1 tablet BEDTIME 1 tablet BEDTIME (route: oral) Med Classific ation: Antineopl astics Xarelto 20 mg tablet 02-03 00:00: 00 06-23 23:59 :00 No [id number] 1 tablet DAILY 1 tablet DAILY (route: oral) Med Classific ation: Hematolog ical Agents Jardiance 25 mg tablet - 00:00: 00 Yes [id number] 1 tablet DAILY 1 tablet DAILY (route: oral) Med Classific ation: Endocrine Vitamin D3 10 mcg (400 unit) tablet 08-26 00:00: 00 04-21 23:59 :00 No [id number] 1 tablet DIRECTED 1 tablet DIRECTED (route: oral) Med Classific ation: Electroly te Balance-N utritiona l Products clozapine 100 mg tablet 02-21 00:00: 00 03-01 23:59 :00 No [id number] Per instruc tions DIRECTED Per instructio ns DIRECTED (route: oral) Med Classific ation: Central Nervous System Agents clozapine 100 mg tablet 03-01 00:00: 00 03-24 23:59 :00 No [id number] 1 tablet EVERY AM 1 tablet EVERY AM (route: oral) Med Classific ation: Central Nervous System Agents clozapine 200 mg disintegrat ing tablet 03-01 00:00: 00 03-24 23:59 :00 No [id number] 1 tablet BEDTIME 1 tablet BEDTIME (route: oral) Med Classific ation: Central Nervous System Agents multivitami n tablet 03-08 00:00: 00 Yes [id number] 1 tablet DAILY 1 tablet DAILY (route: oral) Med Classific ation: Electroly te Balance-N utritiona l Products clozapine 200 mg tablet 03-24 00:00: 00 Yes [id number] 1 tablet BEDTIME 1 tablet BEDTIME (route: oral) Med Classific ation: Central Nervous System Agents Clozaril 50 mg tablet 03-24 00:00: 00 Yes [id number] 1 tablet 2 TIMES DAILY 1 tablet 2 TIMES DAILY (route: oral) Med Classific ation: Central Nervous System Agents pregabalin 50 mg capsule 18 00:00: 00 Yes [id number] 1 capsule EVERY AM 1 capsule EVERY AM (route: oral) Med Classific ation: Central Nervous System Agents pregabalin 50 mg capsule 18 00:00: 00 Yes [id number] 2 capsule EVERY PM 2 capsule EVERY PM (route: oral) Med Classific ation: Central Nervous System Agents Vitamin D3 10 mcg (400 unit) tablet 04-21 00:00: 00 Yes [id number] 1 tablet EVERY AM 1 tablet EVERY AM (route: oral) Med Classific ation: Electroly te Balance-N utritiona l Products lorazepam 1 mg tablet 2023-07 00:00: 00 Yes [id number] 1 tablet BEDTIME 1 tablet BEDTIME (route: oral) Med Classific ation: Central Nervous System Agents simvastatin 10 mg tablet 2023-07 2-17 00:00: 00 Yes [id number] 1 tablet BEDTIME 1 tablet BEDTIME (route: oral) Med Classific ation: Cardiovas cular Therapy Agents metoprolol succinate ER 25 mg tablet,exte nded release 24 hr 10-11 00:00: 00 Yes [id number] 1 tablet DAILY 1 tablet DAILY (route: oral) Med Classific ation: Cardiovas cular Therapy Agents Mounjaro 2.5 mg/0.5 mL subcutaneou s pen injector 01-31 00:00: 00 Yes [id number] 2.5 mg WEEKLY 2.5 mg WEEKLY (route: subcutaneo us) Med Classific ation: Endocrine METFORMIN ORAL 02-12 00:00: 00 03-12 00:00 :00 No 500 mg1 tab TWICE-TIGRE Y 500 mg1 tab TWICE-TIGRE Y (route: ) Med Classific ation: ENDOCRINE METFORMIN ORAL 10-07 00:00: 00 02-12 00:00 :00 No [id number] Twice a day [id number] Twice a day (route: ) Med Classific ation: ENDOCRINE Vital Signs Vital Name Observation Time Observation Value Commen ts Temperature 2025-04-12 18:20:00.000 97.8 [degF] Temperature 2025-04-04 12:18:00.000 97.8 [degF] Temperature 2025-03-28 11:14:00.000 97.8 [degF] Temperature 2025-03-21 11:50:00.000 97.8 [degF] Temperature 2025-03-14 12:00:00.000 97.8 [degF] Temperature 2025-03-07 12:48:00.000 97.8 [degF] Temperature 2025-02-28 12:47:00.000 97.8 [degF] Temperature 2025-02-21 11:59:00.000 97.3 [degF] Pulse 2025-04-12 18:20:00.000 95 /min Pulse 2025-03-28 11:14:00.000 100 /min Pulse 2025-03-21 11:50:00.000 100 /min Pulse 2025-03-14 12:00:00.000 100 /min Pulse 2025-03-07 12:48:00.000 100 /min Pulse 2025-02-28 12:47:00.000 90 /min Pulse 2025-02-21 11:59:00.000 88 /min O2 Saturation (%) 2025-04-12 18:21:00.000 98 % O2 Saturation (%) 2025-04-04 12:12:00.000 98 % O2 Saturation (%) 2025-03-14 12:01:00.000 96 % O2 Saturation (%) 2025-02-21 11:59:00.000 98 % Respirations 2025-04-12 18:20:00.000 16 /min Respirations 2025-03-28 11:14:00.000 16 /min Respirations 2025-03-21 11:50:00.000 16 /min Respirations 2025-03-14 12:00:00.000 16 /min Respirations 2025-03-07 12:48:00.000 16 /min Respirations 2025-02-28 12:47:00.000 16 /min Respirations 2025-02-21 11:59:00.000 16 /min Systolic Blood Pressure 2025-04-12 18:20:00.000 130 mm [Hg] Systolic Blood Pressure 2025-04-04 12:12:00.000 120 mm [Hg] Systolic Blood Pressure 2025-03-28 11:14:00.000 120 mm [Hg] Systolic Blood Pressure 2025-03-21 11:50:00.000 122 mm [Hg] Systolic Blood Pressure 2025-03-14 12:00:00.000 120 mm [Hg] Systolic Blood Pressure 2025-03-07 12:48:00.000 127 mm [Hg] Systolic Blood Pressure 2025-02-28 12:47:00.000 120 mm [Hg] Systolic Blood Pressure 2025-02-21 11:59:00.000 130 mm [Hg] Diastolic Blood Pressure 2025-04-12 18:20:00.000 80 mm [Hg] Diastolic Blood Pressure 2025-04-04 12:12:00.000 75 mm [Hg] Diastolic Blood Pressure 2025-03-28 11:14:00.000 80 mm [Hg] Diastolic Blood Pressure 2025-03-21 11:50:00.000 80 mm [Hg] Diastolic Blood Pressure 2025-03-14 12:00:00.000 70 mm [Hg] Diastolic Blood Pressure 2025-03-07 12:48:00.000 73 mm [Hg] Diastolic Blood Pressure 2025-02-28 12:47:00.000 72 mm [Hg] Diastolic Blood Pressure 2025-02-21 11:59:00.000 70 mm [Hg] Plan of Treatment Planned Activity [...] AWARENESS FOR SAFETY AND WILL NOTIFY CLINICAL DRILLING SUPERINTENDENT AND PHYSICIAN/PROVIDER WITH ANY CHANGE IN CONDITION. [code = SKILLED NURSE WILL MAINTAIN SITUATIONAL AWARENESS FOR SAFETY AND WILL NOTIFY CLINICAL DRILLING SUPERINTENDENT AND PHYSICIAN/PROVIDER WITH ANY CHANGE IN CONDITION.] Future Scheduled Test SKILLED NU RSE TO ASSESS PATIENT S PSYCHOSOCIAL STATUS TO IDENTIFY POTENTIAL ISSUES THAT MAY COMPLICATE THE PROVISION OF THE PLAN OF CARE INCLUDING THE PATIENT S ABILITY TO ACCESS COMMUNITY RESOURCES AND PSYCHOSOCIAL SUPPORT SERVICES. [code = SKILLED NURSE TO ASSESS PATIENT S PSYCHOSOCIAL STATUS TO IDENTIFY POTENTIAL ISSUES THAT MAY COMPLICATE THE PROVISION OF THE PLAN OF CARE INCLUDING THE PATIENT S ABILITY TO ACCESS COMMUNITY RESOURCES AND PSYCHOSOCIAL SUPPORT SERVICES.] Future Scheduled Test SKILLED NU RSE TO PERFORM HOME SAFETY AND FALL ASSESSMENT AND PROVIDE INSTRUCTION TO IMPLEMENT HOME SAFETY AND FALL PREVENTION STRATEGIES. [code = SKILLED NURSE TO PERFORM HOME SAFETY AND FALL ASSESSMENT AND PROVIDE INSTRUCTION TO IMPLEMENT HOME SAFETY AND FALL PREVENTION STRATEGIES.] Future Scheduled Test SKILLED NU RSE FOR OBSERVATION AND ASSESSMENT OF PATIENT S PAIN LEVEL AND EFFECTIVENESS OF PAIN MANAGEMENT REGIMEN. SKILLED NURSE TO INSTRUCT PATIENT/CAREGIVER REGARDING PHARMACOLOGIC AND NON-PHARMACOLOGIC PAIN CONTROL MEASURES. SKILLED NURSE TO REPORT TO PHYSICIAN IF PAIN IS UNCONTROLLED WITH CURRENT PAIN MANAGEMENT REGIMEN. [code = SKILLED NURSE FOR OBSERVATION AND ASSESSMENT OF PATIENT S PAIN LEVEL AND EFFECTIVENESS OF PAIN MANAGEMENT REGIMEN. SKILLED NURSE TO INSTRUCT PATIENT/CAREGIVER REGARDING PHARMACOLOGIC AND NON-PHARMACOLOGIC PAIN CONTROL MEASURES. SKILLED NURSE TO REPORT TO PHYSICIAN IF PAIN IS UNCONTROLLED WITH CURRENT PAIN MANAGEMENT REGIMEN.] Future Scheduled Test SKILLED NU RSE TO O/A OF PATIENTS MENTAL/BEHAVIORAL STATUS, ASSESS VITAL SIGNS WEEKLY ALLOW 2 PRNS FOR MEDICATION MANAGEMENT. [code = SKILLED NURSE TO O/A OF PATIENTS MENTAL/BEHAVIORAL STATUS, ASSESS VITAL SIGNS WEEKLY ALLOW 2 PRNS FOR MEDICATION MANAGEMENT.] Future Scheduled Test SKILLED NU RSE FOR O/A OF GENERAL HEALTH STATUS OF PAIN, CARDIAC, RESPIRATORY, GASTROINTESTINAL, GENITOURINARY, SKIN, NEUROLOGIC, ENDOCRINE SYSTEMS TO IDENTIFY CHANGES ASSOCIATED WITH EXACERBATION FOR EARLY INTERVENTION OF COMPLICATIONS WEEKLY [code = SKILLED NURSE FOR O/A OF GENERAL HEALTH STATUS OF PAIN, CARDIAC, RESPIRATORY, GASTROINTESTINAL, GENITOURINARY, SKIN, NEUROLOGIC, ENDOCRINE SYSTEMS TO IDENTIFY CHANGES ASSOCIATED WITH EXACERBATION FOR EARLY INTERVENTION OF COMPLICATIONS WEEKLY] Future Scheduled Test SKILLED NU RSE TO [...] NURSE TO PRE-POUR MEDICATION PER MEDICATION LIST WEEKLY] Future Scheduled Test SKILLED NU RSE FOR O/A OF ALTERED THOUGHT PROCESS AND/OR DISRUPTION IN COGNITIVE OPERATIONS AND ACTIVITIES [code = SKILLED NURSE FOR O/A OF ALTERED THOUGHT PROCESS AND/OR DISRUPTION IN COGNITIVE OPERATIONS AND ACTIVITIES] Future Scheduled Test SKILLED NU RSE FOR O/A AND SKILLED TEACHING RELATED TO MANAGEMENT OF DEPRESSIVE SYMPTOMS AND/OR DEPRESSION. SN TO REPORT SIGNIFICANT CHANGE IN DEPRESSIVE SYMPTOMS TO CLINICAL PROVIDER FOR EARLY INTERVENTION. [code = SKILLED NURSE FOR O/A AND SKILLED TEACHING RELATED TO MANAGEMENT OF DEPRESSIVE SYMPTOMS AND/OR DEPRESSION. SN TO REPORT SIGNIFICANT CHANGE IN DEPRESSIVE SYMPTOMS TO CLINICAL PROVIDER FOR EARLY INTERVENTION.] Future Scheduled Test SKILLED NU RSE FOR O/A AND SKILLED TEACHING OF COPING SKILLS TO MANAGE ANXIETY AND MAINTAIN SAFETY. [code = SKILLED NURSE FOR O/A AND SKILLED TEACHING OF COPING SKILLS TO MANAGE ANXIETY AND MAINTAIN SAFETY.] Future Scheduled Test MEDICATION S WILL BE HELD AND STORED IN LOCKBOX [code = MEDICATIONS WILL BE HELD AND STORED IN LOCKBOX] Goal 2023-06-23 Patient Goal - MANAGE MY MED ICATIONS Goal 2024-04-19 Patient Goal - S COURTNEY COMPLIANT WITH MEDICATION Goal 2024-02-17 Patient Goal - S COURTNEY COMPLIANT WITH MEDICATION Goal 2023-12-22 Patient Goal - S COURTNEY COMPLIANT WITH MEDICATION Goal 2023-10-20 Patient Goal - S COURTNEY COMPLIANT WITH MEDICATION Goal 2023-08-25 Patient Goal - MANAGE MY MED ICATIONS Goal Patient Goal - S COURTNEY COMPLIANT WITH MEDICATION Goal 2025-04-12 Patient Goal - S COURTNEY COMPLIANT WITH MEDICATION Goal 2025-02-14 Patient Goal - S COURTNEY COMPLIANT WITH MEDICATION Goal 2024-12-13 Patient Goal - S COURTNEY COMPLIANT WITH MEDICATION Goal 2024-10-18 Patient Goal - S COURTNEY COMPLIANT WITH MEDICATION Goal 2024-08-16 Patient Goal - S COURTNEY COMPLIANT WITH MEDICATION Goal 2024-06-16 Patient Goal - S COURTNEY COMPLIANT WITH MEDICATION Goal Provider Goal - A PLAN OF CARE WILL BE ESTABLISHED THAT MEETS PATIENT'S GROUP HOME NEEDS AND INCLUDES PATIENT GOAL FOR [...] PERIOD. Goal Provider Goal - PATIENT/CAREGIVER WILL DEMONSTRATE UNDERSTANDING OF PHARMACOLOGIC AND NONPHARMACOLOGIC PAIN CONTROL MEASURES AND PATIENT WILL HAVE IMPROVEMENT IN PAIN INTERFERING WITH ACTIVITY EVIDENCED BY PAIN AT A LEVEL THAT IS ACCEPTABLE TO THE PATIENT AND PAIN LEVEL WITHIN ESTABLISHED PARAMETERS BY END OF CERTIFICATION PERIOD. Goal Provider Goal - ALTERED MENTAL/BEHAVIORAL STATUS WILL BE IDENTIFIED PROMPTLY AND INTERVENTION INITIATED QUICKLY TO MINIMIZE ASSOCIATED RISKS THROUGHOUT CERTIFICATION PERIOD. Goal Provider Goal - CHANGE IN GENERAL HEALTH STATUS WILL BE IDENTIFIED AND REPORTED TO PHYSICIAN FOR PROMPT INTERVENTION TO MINIMIZE ASSOCIATED RISKS THROUGHOUT CERTIFICATION PERIOD. [...] PERIOD. Goal Provider Goal - PATIENT WILL REMAIN SAFE WITHOUT DECOMPENSATION IN DEPRESSIVE CONDITION, WHILE MAINTAINING OPTIMAL LEVEL OF MENTAL HEALTH AND WELL BEING THROUGHOUT CERTIFICATION PERIOD. Goal Provider Goal - PATIENT WILL BE ABLE TO PERFORM DAILY FUNCTIONS AND HAVE OPTIMAL IMPROVEMENT IN LEVEL OF ANXIETY THROUGHOUT CERTIFICATION PERIOD. Goal Provider Goal - MEDICATION WILL BE STORED IN LOCKBOX FOR SAFETY. Encounters Start Date/Time End Date/Time Encounter Type Admission Type Attending [facility] Facility Care Department Encounter ID Discharge Date Discharge Status Discharge Condition Discharge Reason Percent Goals Met 2025-02-16 00:00:00 2025-04-16 00:00:00 Outpatient RECERTIFIC ATROSA VÁSQUEZ [facility] [id number]
--- NOTE | 2025-04-21 07:56 | A.OFFVIS_ITS ---
Vital Signs 04/21/25 07:57 Height 5 ft 2 in Weight 209 lb 4 oz BMI 38.3 BP 136/82 Blood Pressure Location Lt brachial Position Sitting Pulse 95 Pulse Source Pulse Oximeter Pulse Oximetry (%) 95 Oxygen Delivery Method Room Air Intake Visit Reasons: 6 mnts f/u Intake Note: Patient presents 6 month follow up for Peripheral neuropathy Manager Monitoring Required: No Accompanied by: Partner - Leeann Allergies lisinopril (LISINOPRIL) Allergy (Unknown, Verified 04/21/25 07:57) SWOLLEN LIPS, angioedema, swelling Medication List - Last Reconciled 04/21/25 by CHAR Brizuela blood sugar diagnostic (FreeStyle Lite Strips) As directed check the BS once daily blood-glucose meter (FreeStyle Lite Meter kit) As directed blood-glucose sensor ([employer] G7 Sensor device) As directed blood-glucose,shoe stitcher,cont ([employer] G7 Student Financial Aid Manager) As directed cholecalciferol (vitamin D3) (Vitamin D3) 10 mcg PO DAILY clozapine orally; ; 50mg in am 250mg at night [diabetic shoes As direct Prosthetic and orthotics solutions] docusate sodium 100 mg PO BEDTIME empagliflozin (Jardiance) 25 mg PO DAILY lancets (FreeStyle Lancets) once a day letrozole 2.5 mg PO DAILY leuprolide (3 month) (Lupron Depot) 22.5 mg IM [id number] lorazepam orally; 0.5 mg in am 1 tab in pm losartan 25 mg PO DAILY 90 days lurasidone (Latuda) 80 mg PO 1800 metformin 1,000 mg PO BID metoprolol succinate ER 25 mg PO DAILY multivitamin 1 tab PO DAILY omeprazole 20 mg PO DAILY pregabalin 50 mg PO BEDTIME pregabalin (Lyrica) 50mg qam and 100mg qhs orally ; 30 days simvastatin 10 mg PO BEDTIME tirzepatide (Mounjaro) 2.5 mg (0.5 mL) subcut QWEEK HPI Comments Details: 54 year old female presents for follow-up of peripheral neuropathy. Papi is accompaniend by her . Since the last visit, the patient has been started on Mounjaro for diabetic control. She also just started trazodone 50mg for sleep, prescribed by her psychiatrist. The patient reports that her feet feel cold and uncomfortable, as well as restless, and she is experiencing an internal antsy sensation in her legs, which is most bothersome at night. She always wears socks when sleeping. She is compliant with Nervive nerve relief and Pregabalin to 50 mg in the morning and 100 mg at bedtime. Unsure if these help as she takes so many meds; however, she notes that often her sleep difficulties are due to her neuropathy symptoms. asks if the patient would benefit from optimizing the pregabalin dosage versus starting trazodone. Compli Endorses morning sleepiness. Left hemiparesis causes occasional stumbling and coordination issues, necessitating mindful movement. She goes to the gym three days a week, doing circuit training twice a week, and walks on the treadmill once a week. She reports her hand tingling is not very bothersome at this time. [facility] Medical History Tachycardia Overweight (BMI 25.0-29.9) Microangiopathy Left leg paresthesias COVID-19 virus infection Schizoaffective disorder Colon cancer screening Breast cancer Arthritis Depression Hiatal hernia Hearing loss Facial paralysis Schizophrenia Obesity Iron deficiency anemia Hypertension Hypercholesterolemia GERD (gastroesophageal reflux disease) Type 2 diabetes mellitus with hyperglycemia Surgical History History of removal of Port-a-Cath History of lumpectomy of right breast Hemiparesis History of eye surgery History of placement of ear tubes Family History Father Medical history unknown Mother Medical history unknown Social History Household Members: Significant Other Housing: Condominium Are you a primary patient care specialist to a significant other at home: No Do you presently have visiting nurse or other home services: Yes Alcohol intake: never Patient Tobacco Use Status: Never used Tobacco Tobacco use type: Cigarette e-Cigarette/Vaping Use: Never Used Second Hand Smoke Exposure: No Advance Directives Date on File: 06/24/21 service: No Current occupational status: unemployed Sexual orientation: Lesbian/Reyes/Homosexual Cognitive needs: No Hearing needs: Yes (hearing aides) Vision needs: Yes (glasses) Female Reproductive History Menstrual Age of Menarche: 13 Physical Exam Vital Signs: Last Vital Signs Pulse 95 04/21/25 07:57 BP 136/82 04/21/25 07:57 Pulse Ox 95 04/21/25 07:57 Oxygen Delivery Method Room Air 04/21/25 07:57 BMI result Body Mass Index 38.3 Const General: cooperative and no acute distress Orientation/consciousness: patient oriented x3 Resp Effort & Inspection: normal respiratory effort and able to speak in complete sentences Neuro Other: Chronic left facial asymmetry. Negative LUE Tinel, Phalen, medial compression test Left hemiparesis, more notable in LLE Stands easily, steady gait General: patient oriented x3 Cognition (Neuro): normal cognition Psych Appearance: grossly normal Mental Status: mental status grossly normal Speech and movement: Normal speech and movement present Affect: normal affect Attitude: cooperative Assessment & Plan Assessment & Plan (1) Peripheral neuropathy: Code(s): G62.9 - Polyneuropathy, unspecified Category: Medical Qualifiers: Peripheral neuropathy type: polyneuropathy, unspecified Qualified Code(s): G62.9 - Polyneuropathy, unspecified (2) Left hemiparesis: Code(s): G81.94 - Hemiplegia, unspecified affecting left nondominant side Category: Medical Plan Discussed that patient should monitor for increase BLE restlessness upon starting trazodone, as this can exacerbate restless leg syndrome. However, and patient request to hold on starting the trazodone that was ordered by Psychiatry, and trial adjusting pregabalin as this can help both sleep and neuropathy symptoms and restlessness. For BLE neuropathy and restlessness: * Discontinue pregabalin at 50 mg in the morning and 100 mg at bedtime. * Start pregabalin 50 mg at 07:30, 50 mg at 18:00, and 100 mg at 21:00 (bedtime) * Continue OTC Nervive Nerve Relief supplement periods * Use ibuprofen as needed for pain. * Consider wearing 100% Mirena we will socks at bedtime to improve foot temperature control * Use mindful techniques when walking to prevent trips or falls. * Check routine labs for neuropathy 1 week prior to follow-up appointment * Future considerations: sleep study, LUE EMG/NCSdvised to use safety clamp when walking on the treadmill at the gym. For hand tingling: * Currently stable * If needed, consider using an OTC carpal tunnel splint for nighttime finger tingling. Follow up with neurology in 6 months or sooner if needed Orders: Orders Complete Blood Count Auto Diff Today D64.9 - Anemia, unspecified, E11.65 - Type 2 diabetes mellitus with hyperglycemia, E56.9 - Vitamin deficiency, unspecified, G62.9 - Polyneuropathy, unspecified IRON PROFILE Today D64.9 - Anemia, unspecified, E11.65 - Type 2 diabetes mellitus with hyperglycemia, E56.9 - Vitamin deficiency, unspecified, G62.9 - Polyneuropathy, unspecified Vitamin B12 and Folate Today D64.9 - Anemia, unspecified, E11.65 - Type 2 diabetes mellitus with hyperglycemia, E56.9 - Vitamin deficiency, unspecified, G62.9 - Polyneuropathy, unspecified Homocysteine Today D64.9 - Anemia, unspecified, E11.65 - Type 2 diabetes mellitus with hyperglycemia, E56.9 - Vitamin deficiency, unspecified, G62.9 - Polyneuropathy, unspecified Comprehensive [place]. Panel Fast Today D64.9 - Anemia, unspecified, E11.65 - Type 2 diabetes mellitus with hyperglycemia, E56.9 - Vitamin deficiency, unspecified, G62.9 - Polyneuropathy, unspecified Ferritin Today D64.9 - Anemia, unspecified, E11.65 - Type 2 diabetes mellitus with hyperglycemia, E56.9 - Vitamin deficiency, unspecified, G62.9 - Polyneuropathy, unspecified Vitamin B1 Today D64.9 - Anemia, unspecified, E11.65 - Type 2 diabetes mellitus with hyperglycemia, E51.9 - Thiamine deficiency, unspecified, E56.9 - Vitamin deficiency, unspecified, G62.9 - Polyneuropathy, unspecified Vitamin B6 Today D64.9 - Anemia, unspecified, E11.65 - Type 2 diabetes mellitus with hyperglycemia, E56.9 - Vitamin deficiency, unspecified, G62.9 - Antonio yneuropathy, unspecified Methylmalonic Acid Today D64.9 - Anemia, unspecified, E11.65 - Type 2 diabetes mellitus with hyperglycemia, E56.9 - Vitamin deficiency, unspecified, G62.9 - Polyneuropathy, unspecified Medications: New trazodone 50 mg PO BEDTIME PRN Changed From pregabalin (Lyrica) 50mg qam and 100mg qhs orally ; 30 days 90 caps 4RF G62.9 - Polyneuropathy, unspecified To pregabalin (Lyrica) 50mg at 7:30am, 50mg at 7pm, and 100mg at 9pm orally ; 120 caps 5RF 30 days G62.9 - Polyneuropathy, unspecified Coding Level of Care Code Est Pt Level 4 (71647) Diagnoses Peripheral polyneuropathy G62.9 Peripheral neuropathy type: polyneuropathy, unspecified Left hemiparesis G81.94
[2025-04-21 07:57] VITALS: BP 136/82; PULSE 95; O2SAT 95; BMI 38.3
--- OUTSIDE RECORDS SUMMARY | 2025-04-21 07:58 | XMS_ITS | Encounter Summary ---
Author Organization [facility] Address [address] [place] [address] Phone Care Team Providers Care Protective Service Specialist Name Role Phone Liss Moctezuma MD Primary Care Provider [phone] Encounter Details Date Type Department Care Team (Late st Contact Info) Description 12/26/2021 Ancillary Orders [facility],Outside Imaging [address] [place], [place] [phone] System, Provider [place] In, [place] [address] Social History Tobacco Use Types Packs/Day Years Used Date Smoking Tobacco: Never Assessed Comments Unknown Sex and Gender Information Value Date Recorded Sex Assigned at Not on file Legal Sex Female 9:33 PM EDT Gender Identity Not on file Sexual Orientation Not on file documented as of this encounter Plan of Treatment Not on file documented as of this encounter Results * Mammogram Outside (No Interpretation) (05/28/2021 12:05 AM EDT) Narrative SYSTEMGENERATED, DOCUMENTATION - 12/26/2021 6:58 AM EDT This study is for PACS storage only and not for interpretation. us Provider Not In System PhD IMG OUTSIDE IMAGING W /OUT INTERPRETATION Final Result documented in this encounter Visit Diagnoses Not on filedocumented in this encounter Care Teams Protective Service Specialist Relationship Specialty Start Date End Date Liss Moctezuma MD [address] [place] [address] PCP - General Internal Medicine 06/01/17 documented as of this encounter Additional Source Comments The information contained in this document represents components of the legal health record. It is not the complete legal health record.[facility]
--- OUTSIDE RECORDS SUMMARY | 2025-04-21 07:58 | XMS_ITS | Encounter Summary ---
Author Organization [facility] Address [address] [place] [address] Phone Care Team Providers Care Lumber Bearer Name Role Phone Liss Moctezuma MD Primary Care Provider [phone] Encounter Details Date Type Department Care Team (Late st Contact Info) Description 12/26/2021 Ancillary Orders [facility],Outside Imaging [address] [place], [place] [phone] System, Provider [place] In, [place] [address] Social History Tobacco Use Types Packs/Day Years [...] encounter Results * Mammogram Outside (No Interpretation) (05/13/2021 12:00 AM EDT) Narrative SYSTEMGENERATED, DOCUMENTATION - 12/26/2021 6:43 AM EDT This study is for PACS storage only and not for interpretation. us Provider Not In System PhD IMG OUTSIDE IMAGING W /OUT INTERPRETATION Final Result documented in this encounter Visit Diagnoses Not on filedocumented in this encounter Care Teams Lumber Bearer Relationship Specialty Start Date End Date Liss Moctezuma MD [address] [place] [address] PCP - General Internal Medicine 06/01/17 documented as of this encounter Additional Source Comments The information contained in this document represents components of the legal health record. It is not the complete legal health record.[facility]
--- OUTSIDE RECORDS SUMMARY | 2025-04-21 07:58 | XMS_ITS | Encounter Summary ---
Author Organization [facility] Address [address] [place] [address] Phone Care Team Providers Care Mandarin Teacher Name Role Phone iLss Moctezuma MD Primary Care Provider [phone] Encounter Details Date Type Department Care Team (Late st Contact Info) Description 06/01/2017 Transcribe Orders [facility] [address] [place] [address] Timothy Aleman MD [address] [place] [address] Atypical psychosis (Primary Dx) Social History Tobacco Use Types Packs/Day Years Used Date Smoking Tobacco: Never Assessed Comments Unknown Sex and Gender Information Value Date Recorded Sex Assigned at Not on file Legal Sex Female 9:33 PM EDT Gender Identity Not on file Sexual Orientation Not on file documented as of this encounter Plan of Treatment Not on file documented as of this encounter Procedures Procedure Name Priority Date/Time Associated Diagnosis Comments CBC AND DIFFERENTIAL Routine 06/01/2017 10:19 AM EST Atypical psychosis documented in this encounter Results * (ABNORMAL) CBC and differential (06/01/2017 10:19 AM EST) WBC 9.66 3.40 - 11.20 K/uL [facility] RBC 4.20 3.80 - 4.80 M/uL [facility] HGB 11.7(L) 12.0 - 15.0 g/dL [facility] HCT 35.7(L) 36.0 - 46.0 % [facility] PLT 340 130 - 400 K/uL [facility] MCV 85.0 79.0 - 98.0 fL [facility] MCH 27.9 27.0 - 34.8 pg [facility] MCHC 32.8 31.5 - 36.0 g/dL [facility] RDW 15.0(H) 10.8 - 14.6 % [facility] MPV 11.2 9.4 - 12.4 fl [facility] NRBC 0.00 /100 WBCs [facility] ABSOLUTE NRBC 0.00 K/uL [facility] DIFF METHOD Auto [facility] NEUTS 70.4 45.30 - 77.70 % [facility] LYMPHS 22.0 12.30 - 39.70 % [facility] MONOS 5.9 4.10 - 12.80 % [facility] EOS 0.0 0 - 7.2 % [facility] BASOS 0.4 0 - 2.80 % [facility] Granulocytes, immature (%) 1.3(H) 0.0 - 0.9 % [facility] ABSOLUTE NEUTS 6.79 1.40 - 7.70 K/uL [facility] ABSOLUTE LYMPHS 2.13 0.60 - 3.20 K/uL [facility] ABSOLUTE MONOS 0.57 0.11 - 0.59 K/uL [facility] ABSOLUTE EOS 0.00(L) 0.01 - 0.50 K/uL [facility] ABSOLUTE BASOS 0.04 0.00 - 0.08 K/uL [facility] Granulocytes, immature 0.13(H) 0.00 - 0.05 K/uL [facility] Blood 06/01/2017 10:1 9 AM EST 06/01/2017 10:21 AM EST us Timothy Aleman MD LAB BLOOD ORDERABLES Edited Result - Final [facility] [address] [place] [address] documented in this encounter Visit Diagnoses Diagnosis Atypical psychosis- Primary Unspecified psychosis documented in this encounter Care Teams Mandarin Teacher Relationship Specialty Start Date End Date Liss Moctezuma MD [address] [place] [phone] PCP - General Internal Medicine 06/01/17 documented as of this encounter Additional Source Comments The information contained in this document represents components of the legal health record. It is not the complete legal health record.[facility]
--- OUTSIDE RECORDS SUMMARY | 2025-04-21 07:58 | XMS_ITS | Encounter Summary ---
Author Organization [facility] Address [address] [place] [address] Phone Care Team Providers Care Equipment Mechanic Name Role Phone Liss Moctezuma MD Primary Care Provider [phone] Encounter Details Date Type Department Care Team (Late st Contact Info) Description 12/26/2021 Ancillary Orders [facility],Outside Imaging [address] [place], [place] [phone] System, Provider [place] In, [place] [address] Social History Tobacco Use Types Packs/Day Years Used Date Smoking Tobacco: Never Assessed Comments Unknown Sex and Gender Information Value Date Recorded Sex Assigned at Not on file Legal Sex Female 9:33 PM EDT Gender Identity Not on file Sexual Orientation Not on file documented as of this encounter Plan of Treatment Not on file documented as of this encounter Results * US Breast Outside (No Interpretation) (05/13/2021 12:05 AM EDT) Narrative SYSTEMGENERATED, DOCUMENTATION - 12/26/2021 6:45 AM EDT This study is for PACS storage only and not for interpretation. us Provider Not In System PhD IMG OUTSIDE IMAGING W /OUT INTERPRETATION Final Result documented in this encounter Visit Diagnoses Not on filedocumented in this encounter Care Teams Equipment Mechanic Relationship Specialty Start Date End Date Liss Moctezuma MD [address] [place] [address] PCP - General Internal Medicine 06/01/17 documented as of this encounter Additional Source Comments The information contained in this document represents components of the legal health record. It is not the complete legal health record.[facility]
--- OUTSIDE RECORDS SUMMARY | 2025-04-21 07:58 | XMS_ITS | Encounter Summary ---
Author Organization [facility] Address [address] [place] [address] Phone Care Team Providers Care Dough Puncher Name Role Phone Liss Moctezuma MD Primary Care Provider [phone] Encounter Details Date Type Department Care Team (Late st Contact Info) Description 12/26/2021 Ancillary Orders [facility],Outside Imaging [address] [place], [place] [phone] System, Provider [place] In, [place] [address] Social History Tobacco Use Types Packs/Day Years [...] Results * US Breast Outside (No Interpretation) (05/28/2021 12:00 AM EDT) Narrative SYSTEMGENERATED, DOCUMENTATION - 12/26/2021 6:56 AM EDT This study is for PACS storage only and not for interpretation. us Provider Not In System PhD IMG OUTSIDE IMAGING W /OUT INTERPRETATION Final Result documented in this encounter Visit Diagnoses Not on filedocumented in this encounter Care Teams Dough Puncher Relationship Specialty Start Date End Date Liss Moctezuma MD [address] [place] [address] PCP - General Internal Medicine 06/01/17 documented as of this encounter Additional Source Comments The information contained in this document represents components of the legal health record. It is not the complete legal health record.[facility]
--- OUTSIDE RECORDS SUMMARY | 2025-04-21 07:58 | XMS_ITS | Encounter Summary ---
Author Organization [facility] Address [address] [place] [address] Phone Care Team Providers Care Helpdesk Technician Name Role Phone Liss Moctezuma MD Primary Care Provider [phone] Encounter Details Date Type Department Care Team (Late st Contact Info) Description 08/20/2017 Transcribe Orders [facility] Laboratory [address] [place] [address] Timothy Aleman MD [address] [place] [address] Diagnosis unknown (Primary Dx) Social History Tobacco Use Types [...] documented as of this encounter Results * (ABNORMAL) CBC and differential (06/28/2018 4:16 PM EST) WBC 10.82 3.40 - 11.20 K/uL [facility] RBC 4.32 3.80 - 4.80 M/uL [facility] HGB 11.9(L) 12.0 - 15.0 g/dL [facility] HCT 36.9 36.0 - 46.0 % [facility] PLT 359 130 - 400 K/uL [facility] MCV 85.4 79.0 - 98.0 fL [facility] MCH 27.5 27.0 - 34.8 pg [facility] MCHC 32.2 31.5 - 36.0 g/dL [facility] RDW 16.3(H) 10.8 - 14.6 % [facility] MPV 10.8 9.4 - 12.4 fl [facility] NRBC 0.00 0.00 /100 WBCs [facility] ABSOLUTE NRBC 0.00 0.00 K/uL [facility] DIFF METHOD Auto [facility] NEUTS 55.9 45.30 - 77.70 % [facility] LYMPHS 38.7 12.30 - 39.70 % [facility] MONOS 4.8 4.10 - 12.80 % [facility] EOS 0.0 0 - 7.2 % [facility] BASOS 0.3 0 - 2.80 % [facility] Granulocytes, immature (%) 0.3 0.0 - 0.9 % [facility] ABSOLUTE NEUTS 6.05 1.40 - 7.70 K/uL [facility] ABSOLUTE LYMPHS 4.19(H) 0.60 - 3.20 K/uL [facility] ABSOLUTE MONOS 0.52 0.11 - 0.59 K/uL [facility] ABSOLUTE EOS 0.00(L) 0.01 - 0.50 K/uL [facility] ABSOLUTE BASOS 0.03 0.00 - 0.08 K/uL [facility] Granulocytes, immature 0.03 0.00 - 0.05 K/uL [facility] Blood 06/28/2018 4:16 PM EST 06/28/2018 4:18 PM EST Timothy Aleman MD LAB BLOOD ORDERABLES Final Result Performing Organization Address City/State/[facility] Co de Phone Number [address] [address] * (ABNORMAL) CBC and differential (05/31/2018 11:14 AM EST) WBC 12.21(H) 3.40 - 11.20 K/uL [facility] RBC 4.32 3.80 - 4.80 M/uL [facility] HGB 11.8(L) 12.0 - 15.0 g/dL [facility] HCT 36.6 36.0 - 46.0 % [facility] PLT 357 130 - 400 K/uL [facility] MCV 84.7 79.0 - 98.0 fL [facility] MCH 27.3 27.0 - 34.8 pg [facility] MCHC 32.2 31.5 - 36.0 g/dL [facility] RDW 16.0(H) 10.8 - 14.6 % [facility] MPV 10.6 9.4 - 12.4 fl [facility] NRBC 0.00 0.00 /100 WBCs [facility] ABSOLUTE NRBC 0.00 0.00 K/uL [facility] DIFF METHOD Auto [facility] NEUTS 67.7 45.30 - 77.70 % [facility] LYMPHS 28.3 12.30 - 39.70 % [facility] MONOS 3.4(L) 4.10 - 12.80 % [facility] EOS 0.0 0 - 7.2 % [facility] BASOS 0.2 0 - 2.80 % [facility] Granulocytes, immature (%) 0.4 0.0 - 0.9 % [facility] ABSOLUTE NEUTS 8.27(H) 1.40 - 7.70 K/uL [facility] ABSOLUTE LYMPHS 3.46(H) 0.60 - 3.20 K/uL [facility] ABSOLUTE MONOS 0.41 0.11 - 0.59 K/uL [facility] ABSOLUTE EOS 0.00(L) 0.01 - 0.50 K/uL [facility] ABSOLUTE BASOS 0.02 0.00 - 0.08 K/uL [facility] Granulocytes, immature 0.05 0.00 - 0.05 K/uL [facility] Blood 05/31/2018 11:1 4 AM EST 05/31/2018 11:16 AM EST Timothy Aleman MD LAB BLOOD ORDERABLES Final Result [facility] [address] [place] [address] * (ABNORMAL) CBC and differential (05/04/2018 1:10 PM EDT) WBC 10.44 3.40 - 11.20 K/uL [facility] RBC 4.39 3.80 - 4.80 M/uL [facility] HGB 12.0 12.0 - 15.0 g/dL [facility] HCT 36.8 36.0 - 46.0 % [facility] PLT 365 130 - 400 K/uL [facility] MCV 83.8 79.0 - 98.0 fL [facility] MCH 27.3 27.0 - 34.8 pg [facility] MCHC 32.6 31.5 - 36.0 g/dL [facility] RDW 15.6(H) 10.8 - 14.6 % [facility] MPV 10.6 9.4 - 12.4 fl [facility] NRBC 0.00 /100 WBCs [facility] ABSOLUTE NRBC 0.00 K/uL [facility] DIFF METHOD Auto [facility] NEUTS 55.1 45.30 - 77.70 % [facility] LYMPHS 39.6 12.30 - 39.70 % [facility] MONOS 4.7 4.10 - 12.80 % [facility] EOS 0.1 0 - 7.2 % [facility] BASOS 0.3 0 - 2.80 % [facility] Granulocytes, immature (%) 0.2 0.0 - 0.9 % [facility] ABSOLUTE NEUTS 5.76 1.40 - 7.70 K/uL [facility] ABSOLUTE LYMPHS 4.13(H) 0.60 - 3.20 K/uL [facility] ABSOLUTE MONOS 0.49 0.11 - 0.59 K/uL [facility] ABSOLUTE EOS 0.01 0.01 - 0.50 K/uL [facility] ABSOLUTE BASOS 0.03 0.00 - 0.08 K/uL [facility] Granulocytes, immature 0.02 0.00 - 0.05 K/uL [facility] Blood 05/04/2018 1:10 PM EDT 05/04/2018 1:13 PM EDT us Timothy Aleman MD LAB BLOOD ORDERABLES Final Result GARCIA SIERRA [address] [address] * (ABNORMAL) CBC and differential (04/09/2018 10:30 AM EDT) WBC 9.89 3.40 - 11.20 K/uL [facility] RBC 4.43 3.80 - 4.80 M/uL [facility] HGB 12.2 12.0 - 15.0 g/dL [facility] HCT 37.2 36.0 - 46.0 % [facility] PLT 366 130 - 400 K/uL [facility] MCV 84.0 79.0 - 98.0 fL [facility] MCH 27.5 27.0 - 34.8 pg [facility] MCHC 32.8 31.5 - 36.0 g/dL [facility] RDW 15.2(H) 10.8 - 14.6 % [facility] MPV 10.7 9.4 - 12.4 fl [facility] NRBC 0.00 /100 WBCs [facility] ABSOLUTE NRBC 0.00 K/uL [facility] DIFF METHOD Auto [facility] NEUTS 59.0 45.30 - 77.70 % [facility] LYMPHS 34.8 12.30 - 39.70 % [facility] MONOS 5.6 4.10 - 12.80 % [facility] EOS 0.0 0 - 7.2 % [facility] BASOS 0.3 0 - 2.80 % [facility] Granulocytes, immature (%) 0.3 0.0 - 0.9 % [facility] ABSOLUTE NEUTS 5.84 1.40 - 7.70 K/uL [facility] ABSOLUTE LYMPHS 3.44(H) 0.60 - 3.20 K/uL [facility] ABSOLUTE MONOS 0.55 0.11 - 0.59 K/uL [facility] ABSOLUTE EOS 0.00(L) 0.01 - 0.50 K/uL [facility] ABSOLUTE BASOS 0.03 0.00 - 0.08 K/uL [facility] Granulocytes, immature 0.03 0.00 - 0.05 K/uL [facility] Blood 04/09/2018 10:3 0 AM EDT 04/09/2018 10:33 AM EDT us Timothy Aleman MD LAB BLOOD ORDERABLES Final Result [facility] [address] [place] [address] * (ABNORMAL) CBC and differential (03/04/2018 2:36 PM EDT) WBC 11.50(H) 3.40 - 11.20 K/uL [facility] RBC 4.20 3.80 - 4.80 M/uL [facility] HGB 11.8(L) 12.0 - 15.0 g/dL [facility] HCT 35.6(L) 36.0 - 46.0 % [facility] PLT 347 130 - 400 K/uL [facility] MCV 84.8 79.0 - 98.0 fL [facility] MCH 28.1 27.0 - 34.8 pg [facility] MCHC 33.1 31.5 - 36.0 g/dL [facility] RDW 16.0(H) 10.8 - 14.6 % [facility] MPV 10.9 9.4 - 12.4 fl [facility] NRBC 0.00 /100 WBCs [facility] ABSOLUTE NRBC 0.00 K/uL [facility] DIFF METHOD Auto [facility] NEUTS 54.4 45.30 - 77.70 % [facility] LYMPHS 39.3 12.30 - 39.70 % [facility] MONOS 5.7 4.10 - 12.80 % [facility] EOS 0.0 0 - 7.2 % [facility] BASOS 0.3 0 - 2.80 % [facility] Granulocytes, immature (%) 0.3 0.0 - 0.9 % [facility] ABSOLUTE NEUTS 6.26 1.40 - 7.70 K/uL [facility] ABSOLUTE LYMPHS 4.52(H) 0.60 - 3.20 K/uL [facility] ABSOLUTE MONOS 0.66(H) 0.11 - 0.59 K/uL [facility] ABSOLUTE EOS 0.00(L) 0.01 - 0.50 K/uL [facility] ABSOLUTE BASOS 0.03 0.00 - 0.08 K/uL [facility] Granulocytes, immature 0.03 0.00 - 0.05 K/uL [facility] Blood 03/04/2018 2:36 PM EDT 03/04/2018 2:38 PM EDT us Timothy Aleman MD LAB BLOOD ORDERABLES Final Result [address] [address] * (ABNORMAL) CBC and differential (02/08/2018 4:37 PM EDT) WBC 10.13 3.40 - 11.20 K/uL [facility] RBC 4.27 3.80 - 4.80 M/uL [facility] HGB 11.8(L) 12.0 - 15.0 g/dL [facility] HCT 35.9(L) 36.0 - 46.0 % [facility] PLT 347 130 - 400 K/uL [facility] MCV 84.1 79.0 - 98.0 fL [facility] MCH 27.6 27.0 - 34.8 pg [facility] MCHC 32.9 31.5 - 36.0 g/dL [facility] RDW 16.7(H) 10.8 - 14.6 % [facility] MPV 10.9 9.4 - 12.4 fl [facility] NRBC 0.00 /100 WBCs [facility] ABSOLUTE NRBC 0.00 K/uL [facility] DIFF METHOD Auto [facility] NEUTS 51.7 45.30 - 77.70 % [facility] LYMPHS 42.8(H) 12.30 - 39.70 % [facility] MONOS 4.9 4.10 - 12.80 % [facility] EOS 0.0 0 - 7.2 % [facility] BASOS 0.3 0 - 2.80 % [facility] Granulocytes, immature (%) 0.3 0.0 - 0.9 % [facility] ABSOLUTE NEUTS 5.23 1.40 - 7.70 K/uL [facility] ABSOLUTE LYMPHS 4.34(H) 0.60 - 3.20 K/uL [facility] ABSOLUTE MONOS 0.50 0.11 - 0.59 K/uL [facility] ABSOLUTE EOS 0.00(L) 0.01 - 0.50 K/uL [facility] ABSOLUTE BASOS 0.03 0.00 - 0.08 K/uL [facility] Granulocytes, immature 0.03 0.00 - 0.05 K/uL [facility] Blood 02/08/2018 4:37 PM EDT 02/08/2018 4:39 PM EDT us Timothy Aleman MD LAB BLOOD ORDERABLES Final Result Performing Organization Address City/State/[facility] Co de Phone Number [facility] [address] [place] [address] * (ABNORMAL) CBC and differential (01/13/2018 9:15 AM EDT) WBC 9.75 3.40 - 11.20 K/uL [facility] RBC 4.25 3.80 - 4.80 M/uL [facility] HGB 11.6(L) 12.0 - 15.0 g/dL [facility] HCT 35.5(L) 36.0 - 46.0 % [facility] PLT 323 130 - 400 K/uL [facility] MCV 83.5 79.0 - 98.0 fL [facility] MCH 27.3 27.0 - 34.8 pg [facility] MCHC 32.7 31.5 - 36.0 g/dL [facility] RDW 16.8(H) 10.8 - 14.6 % [facility] MPV 10.6 9.4 - 12.4 fl [facility] NRBC 0.00 /100 WBCs [facility] ABSOLUTE NRBC 0.00 K/uL [facility] DIFF METHOD Auto [facility] NEUTS 57.3 45.30 - 77.70 % [facility] LYMPHS 37.8 12.30 - 39.70 % [facility] MONOS 4.4 4.10 - 12.80 % [facility] EOS 0.0 0 - 7.2 % [facility] BASOS 0.2 0 - 2.80 % [facility] Granulocytes, immature (%) 0.3 0.0 - 0.9 % [facility] ABSOLUTE NEUTS 5.58 1.40 - 7.70 K/uL [facility] ABSOLUTE LYMPHS 3.69(H) 0.60 - 3.20 K/uL [facility] ABSOLUTE MONOS 0.43 0.11 - 0.59 K/uL [facility] ABSOLUTE EOS 0.00(L) 0.01 - 0.50 K/uL [facility] ABSOLUTE BASOS 0.02 0.00 - 0.08 K/uL [facility] Granulocytes, immature 0.03 0.00 - 0.05 K/uL [facility] Blood 01/13/2018 9:15 AM EDT 01/13/2018 9:19 AM EDT us Timothy Aleman MD LAB BLOOD ORDERABLES Final Result Performing Organization Address City/State/[facility] Co de Phone Number [address] [address] * (ABNORMAL) CBC and differential (12/14/2017 4:18 PM EDT) WBC 10.35 3.40 - 11.20 K/uL [facility] RBC 4.32 3.80 - 4.80 M/uL [facility] HGB 11.8(L) 12.0 - 15.0 g/dL [facility] HCT 35.7(L) 36.0 - 46.0 % [facility] PLT 337 130 - 400 K/uL [facility] MCV 82.6 79.0 - 98.0 fL [facility] MCH 27.3 27.0 - 34.8 pg [facility] MCHC 33.1 31.5 - 36.0 g/dL [facility] RDW 15.9(H) 10.8 - 14.6 % [facility] MPV 11.1 9.4 - 12.4 fl [facility] NRBC 0.00 /100 WBCs [facility] ABSOLUTE NRBC 0.00 K/uL [facility] DIFF METHOD Auto [facility] NEUTS 50.6 45.30 - 77.70 % [facility] LYMPHS 43.1(H) 12.30 - 39.70 % [facility] MONOS 5.7 4.10 - 12.80 % [facility] EOS 0.0 0 - 7.2 % [facility] BASOS 0.3 0 - 2.80 % [facility] Granulocytes, immature (%) 0.3 0.0 - 0.9 % [facility] ABSOLUTE NEUTS 5.24 1.40 - 7.70 K/uL [facility] ABSOLUTE LYMPHS 4.46(H) 0.60 - 3.20 K/uL [facility] ABSOLUTE MONOS 0.59 0.11 - 0.59 K/uL [facility] ABSOLUTE EOS 0.00(L) 0.01 - 0.50 K/uL [facility] ABSOLUTE BASOS 0.03 0.00 - 0.08 K/uL [facility] Granulocytes, immature 0.03 0.00 - 0.05 K/uL [facility] Blood 12/14/2017 4:18 PM EDT 12/14/2017 4:21 PM EDT us Timothy Aleman MD LAB BLOOD ORDERABLES Final Result Performing Organization Address City/State/[facility] Co de Phone Number [facility] [address] [place] [address] * (ABNORMAL) CBC and differential (11/16/2017 4:22 PM EDT) WBC 11.28(H) 3.40 - 11.20 K/uL [facility] RBC 4.20 3.80 - 4.80 M/uL [facility] HGB 11.5(L) 12.0 - 15.0 g/dL [facility] HCT 35.1(L) 36.0 - 46.0 % [facility] PLT 348 130 - 400 K/uL [facility] MCV 83.6 79.0 - 98.0 fL [facility] MCH 27.4 27.0 - 34.8 pg [facility] MCHC 32.8 31.5 - 36.0 g/dL [facility] RDW 16.3(H) 10.8 - 14.6 % [facility] MPV 10.8 9.4 - 12.4 fl [facility] NRBC 0.00 /100 WBCs [facility] ABSOLUTE NRBC 0.00 K/uL [facility] DIFF METHOD Auto [facility] NEUTS 55.7 45.30 - 77.70 % [facility] LYMPHS 38.5 12.30 - 39.70 % [facility] MONOS 5.3 4.10 - 12.80 % [facility] EOS 0.0 0 - 7.2 % [facility] BASOS 0.2 0 - 2.80 % [facility] Granulocytes, immature (%) 0.3 0.0 - 0.9 % [facility] ABSOLUTE NEUTS 6.29 1.40 - 7.70 K/uL [facility] ABSOLUTE LYMPHS 4.34(H) 0.60 - 3.20 K/uL [facility] ABSOLUTE MONOS 0.60(H) 0.11 - 0.59 K/uL [facility] ABSOLUTE EOS 0.00(L) 0.01 - 0.50 K/uL [facility] ABSOLUTE BASOS 0.02 0.00 - 0.08 K/uL [facility] Granulocytes, immature 0.03 0.00 - 0.05 K/uL [facility] Blood 11/16/2017 4:22 PM EDT 11/16/2017 4:24 PM EDT Timothy Aleman MD LAB BLOOD ORDERABLES Final Result [address] [id number] * (ABNORMAL) CBC and differential (10/15/2017 11:37 AM EDT) WBC 9.36 3.40 - 11.20 K/uL [facility] RBC 4.34 3.80 - 4.80 M/uL [facility] HGB 11.9(L) 12.0 - 15.0 g/dL [facility] HCT 36.5 36.0 - 46.0 % [facility] PLT 336 130 - 400 K/uL [facility] MCV 84.1 79.0 - 98.0 fL [facility] MCH 27.4 27.0 - 34.8 pg [facility] MCHC 32.6 31.5 - 36.0 g/dL [facility] RDW 16.5(H) 10.8 - 14.6 % [facility] MPV 10.5 9.4 - 12.4 fl [facility] NRBC 0.00 /100 WBCs [facility] ABSOLUTE NRBC 0.00 K/uL [facility] DIFF METHOD Auto [facility] NEUTS 54.8 45.30 - 77.70 % [facility] LYMPHS 41.1(H) 12.30 - 39.70 % [facility] MONOS 3.7(L) 4.10 - 12.80 % [facility] EOS 0.0 0 - 7.2 % [facility] BASOS 0.2 0 - 2.80 % [facility] Granulocytes, immature (%) 0.2 0.0 - 0.9 % [facility] ABSOLUTE NEUTS 5.12 1.40 - 7.70 K/uL [facility] ABSOLUTE LYMPHS 3.85(H) 0.60 - 3.20 K/uL [facility] ABSOLUTE MONOS 0.35 0.11 - 0.59 K/uL [facility] ABSOLUTE EOS 0.00(L) 0.01 - 0.50 K/uL [facility] ABSOLUTE BASOS 0.02 0.00 - 0.08 K/uL [facility] Granulocytes, immature 0.02 0.00 - 0.05 K/uL [facility] Blood 10/15/2017 11:3 7 AM EDT 10/15/2017 11:39 AM EDT us Timothy Aleman MD LAB BLOOD ORDERABLES Final Result [facility] [address] [place] [address] * (ABNORMAL) CBC and differential (09/21/2017 4:29 PM EST) WBC 12.38(H) 3.40 - 11.20 K/uL [facility] RBC 4.20 3.80 - 4.80 M/uL [facility] HGB 11.4(L) 12.0 - 15.0 g/dL [facility] HCT 35.0(L) 36.0 - 46.0 % [facility] PLT 344 130 - 400 K/uL [facility] MCV 83.3 79.0 - 98.0 fL [facility] MCH 27.1 27.0 - 34.8 pg [facility] MCHC 32.6 31.5 - 36.0 g/dL [facility] RDW 16.5(H) 10.8 - 14.6 % [facility] MPV 10.9 9.4 - 12.4 fl [facility] NRBC 0.00 /100 WBCs [facility] ABSOLUTE NRBC 0.00 K/uL [facility] DIFF METHOD Auto [facility] NEUTS 60.9 45.30 - 77.70 % [facility] LYMPHS 33.8 12.30 - 39.70 % [facility] MONOS 4.4 4.10 - 12.80 % [facility] EOS 0.0 0 - 7.2 % [facility] BASOS 0.3 0 - 2.80 % [facility] Granulocytes, immature (%) 0.6 0.0 - 0.9 % [facility] ABSOLUTE NEUTS 7.53 1.40 - 7.70 K/uL [facility] ABSOLUTE LYMPHS 4.19(H) 0.60 - 3.20 K/uL [facility] ABSOLUTE MONOS 0.55 0.11 - 0.59 K/uL [facility] ABSOLUTE EOS 0.00(L) 0.01 - 0.50 K/uL [facility] ABSOLUTE BASOS 0.04 0.00 - 0.08 K/uL [facility] Granulocytes, immature 0.07(H) 0.00 - 0.05 K/uL [facility] [facility] Blood 09/21/2017 4:29 PM EST 09/21/2017 4:32 PM EST us Timothy Aleman MD LAB BLOOD ORDERABLES Final Result Performing Organization Address City/State/[facility] Co de Phone Number GARCIA SIERRA [address] [address] * (ABNORMAL) CBC and differential (08/20/2017 12:51 PM EST) WBC 10.42 3.40 - 11.20 K/uL [facility] RBC 4.28 3.80 - 4.80 M/uL [facility] HGB 11.5(L) 12.0 - 15.0 g/dL [facility] HCT 36.1 36.0 - 46.0 % [facility] PLT 351 130 - 400 K/uL [facility] MCV 84.3 79.0 - 98.0 fL [facility] MCH 26.9(L) 27.0 - 34.8 pg [facility] MCHC 31.9 31.5 - 36.0 g/dL [facility] RDW 16.2(H) 10.8 - 14.6 % [facility] MPV 11.2 9.4 - 12.4 fl [facility] NRBC 0.00 /100 WBCs [facility] ABSOLUTE NRBC 0.00 K/uL [facility] DIFF METHOD Auto [facility] NEUTS 59.9 45.30 - 77.70 % [facility] LYMPHS 34.5 12.30 - 39.70 % [facility] MONOS 4.9 4.10 - 12.80 % [facility] EOS 0.0 0 - 7.2 % [facility] BASOS 0.4 0 - 2.80 % [facility] Granulocytes, immature (%) 0.3 0.0 - 0.9 % [facility] ABSOLUTE NEUTS 6.25 1.40 - 7.70 K/uL [facility] ABSOLUTE LYMPHS 3.59(H) 0.60 - 3.20 K/uL [facility] ABSOLUTE MONOS 0.51 0.11 - 0.59 K/uL [facility] ABSOLUTE EOS 0.00(L) 0.01 - 0.50 K/uL [facility] ABSOLUTE BASOS 0.04 0.00 - 0.08 K/uL [facility] Granulocytes, immature 0.03 0.00 - 0.05 K/uL [facility] Blood 08/20/2017 12:5 1 PM EST 08/20/2017 12:53 PM EST us Timothy Aleman MD LAB BLOOD ORDERABLES Final Result [facility] [address] [place] [address] documented in this encounter Visit Diagnoses Diagnosis Diagnosis unknown- Primary documented in this encounter Care Teams Helpdesk Technician Relationship Specialty Start Date End Date Jose Elias, Liss Chau MD [address] [place] [phone] PCP - General Internal Medicine 06/01/17 documented as of this encounter Additional Source Comments The information contained in this document represents components of the legal health record. It is not the complete legal health record.[facility]
--- OUTSIDE RECORDS SUMMARY | 2025-04-21 07:58 | XMS_ITS | Encounter Summary ---
Author Organization [facility] Address [address] [place] [address] Phone Care Team Providers Care Slimer Name Role Phone Liss Moctezuma MD Primary Care Provider [phone] Encounter Details Date Type Department Care Team (Late st Contact Info) Description 07/23/2017 Transcribe Orders [facility] [address] [place] [address] Timothy Aleman MD [address] [place] [address] History of regular medication use (Primary Dx) Social History Tobacco Use Types [...] Associated Diagnosis Comments CBC AND DIFFERENTIAL Routine 07/23/2017 10:25 AM EST History of regular medication use documented in this encounter Results * (ABNORMAL) CBC and differential (07/23/2017 10:25 AM EST) WBC 9.24 3.40 - 11.20 K/uL [facility] RBC 4.38 3.80 - 4.80 M/uL [facility] HGB 11.8(L) 12.0 - 15.0 g/dL [facility] HCT 37.1 36.0 - 46.0 % [facility] PLT 340 130 - 400 K/uL [facility] MCV 84.7 79.0 - 98.0 fL [facility] MCH 26.9(L) 27.0 - 34.8 pg [facility] MCHC 31.8 31.5 - 36.0 g/dL [facility] RDW 15.8(H) 10.8 - 14.6 % [facility] MPV 10.8 9.4 - 12.4 fl [facility] NRBC 0.00 /100 WBCs [facility] ABSOLUTE NRBC 0.00 K/uL [facility] DIFF METHOD Auto [facility] NEUTS 59.2 45.30 - 77.70 % [facility] LYMPHS 36.3 12.30 - 39.70 % [facility] MONOS 3.9(L) 4.10 - 12.80 % [facility] EOS 0.0 0 - 7.2 % [facility] BASOS 0.3 0 - 2.80 % [facility] Granulocytes, immature (%) 0.3 0.0 - 0.9 % [facility] ABSOLUTE NEUTS 5.47 1.40 - 7.70 K/uL [facility] ABSOLUTE LYMPHS 3.35(H) 0.60 - 3.20 K/uL [facility] ABSOLUTE MONOS 0.36 0.11 - 0.59 K/uL [facility] ABSOLUTE EOS 0.00(L) 0.01 - 0.50 K/uL [facility] ABSOLUTE BASOS 0.03 0.00 - 0.08 K/uL [facility] Granulocytes, immature 0.03 0.00 - 0.05 K/uL [facility] Blood 07/23/2017 10:2 5 AM EST 07/23/2017 10:26 AM EST us Timothy Aleman MD LAB BLOOD ORDERABLES Final Result Performing Organization Address City/State/[facility] Co de Phone Number [facility] [address] [place] [address] documented in this encounter Visit Diagnoses Diagnosis History of regular medication use- Primary documented in this encounter Care Teams Slimer Relationship Specialty Start Date End Date Liss Moctezuma MD [address] [place] [address] PCP - General Internal Medicine 06/01/17 documented as of this encounter Additional Source Comments The information contained in this document represents components of the legal health record. It is not the complete legal health record.[facility]
--- OUTSIDE RECORDS SUMMARY | 2025-04-21 07:58 | XMS_ITS | Encounter Summary ---
Author Organization [facility] Address [address] [place] [address] Phone Care Team Providers Care Senior Net Programmer Name Role Phone Liss Moctezuma MD Primary Care Provider [phone] Encounter Details Date Type Department Care Team (Late st Contact Info) Description 06/25/2017 Transcribe Orders [facility] Laboratory [address] [place] [address] Timothy Aleman MD [address] [place] [address] Psychosis, unspecified psychosis type (Primary Dx) Social History Tobacco Use Types [...] encounter Results * (ABNORMAL) CBC and differential (06/25/2017 12:05 PM EST) WBC 9.93 3.40 - 11.20 K/uL [facility] RBC 4.36 3.80 - 4.80 M/uL [facility] HGB 11.8(L) 12.0 - 15.0 g/dL [facility] HCT 36.6 36.0 - 46.0 % [facility] PLT 335 130 - 400 K/uL [facility] MCV 83.9 79.0 - 98.0 fL [facility] MCH 27.1 27.0 - 34.8 pg [facility] MCHC 32.2 31.5 - 36.0 g/dL [facility] RDW 15.0(H) 10.8 - 14.6 % [facility] MPV 10.9 9.4 - 12.4 fl [facility] NRBC 0.00 /100 WBCs [facility] ABSOLUTE NRBC 0.00 K/uL [facility] DIFF METHOD Auto [facility] NEUTS 58.2 45.30 - 77.70 % [facility] LYMPHS 36.8 12.30 - 39.70 % [facility] MONOS 4.3 4.10 - 12.80 % [facility] EOS 0.0 0 - 7.2 % [facility] BASOS 0.3 0 - 2.80 % [facility] Granulocytes, immature (%) 0.4 0.0 - 0.9 % [facility] ABSOLUTE NEUTS 5.78 1.40 - 7.70 K/uL [facility] ABSOLUTE LYMPHS 3.65(H) 0.60 - 3.20 K/uL [facility] ABSOLUTE MONOS 0.43 0.11 - 0.59 K/uL [facility] ABSOLUTE EOS 0.00(L) 0.01 - 0.50 K/uL [facility] ABSOLUTE BASOS 0.03 0.00 - 0.08 K/uL [facility] Granulocytes, immature 0.04 0.00 - 0.05 K/uL [facility] Blood 06/25/2017 12:0 5 PM EST 06/25/2017 12:07 PM EST Timothy Aleman MD LAB BLOOD ORDERABLES Final Result Performing Organization Address City/State/[facility] Co de Phone Number [address] [address] documented in this encounter Visit Diagnoses Diagnosis Psychosis, unspecified psychosis type- Primary documented in this encounter Care Teams Senior Net Programmer Relationship Specialty Start Date End Date Liss Moctezuma MD [address] [place] [phone] PCP - General Internal Medicine 06/01/17 documented as of this encounter Additional Source Comments The information contained in this document represents components of the legal health record. It is not the complete legal health record.[facility]
--- OUTSIDE RECORDS SUMMARY | 2025-04-21 07:58 | XMS_ITS | Encounter Summary ---
Author Organization [facility] Address [address] [place] [address] Phone Care Team Providers Care Etiquette Coach Name Role Phone Liss Moctezuma MD Primary Care Provider [phone] Encounter Details Date Type Department Care Team (Late st Contact Info) Description 12/26/2021 Ancillary Orders [facility],Outside Imaging [address] [place], [place] [id number] System, Provider Not In, [place] [address] Social History Tobacco Use Types Packs/Day Years [...] encounter Results * Mammogram Outside (No Interpretation) (05/02/2021 12:00 AM EDT) Narrative SYSTEMGENERATED, DOCUMENTATION - 12/26/2021 6:43 AM EDT This study is for PACS storage only and not for interpretation. us Provider Not In System PhD IMG OUTSIDE IMAGING W /OUT INTERPRETATION Final Result documented in this encounter Visit Diagnoses Not on filedocumented in this encounter Care Teams Etiquette Coach Relationship Specialty Start Date End Date Liss Moctezuma MD [address] [place] [address] PCP - General Internal Medicine 06/01/17 documented as of this encounter Additional Source Comments The information contained in this document represents components of the legal health record. It is not the complete legal health record.[facility]
--- OUTSIDE RECORDS SUMMARY | 2025-04-21 07:58 | XMS_ITS | Encounter Summary ---
Author Organization [facility] Address [address] [place] [address] Phone Care Team Providers Care Supervisor International Reservations Name Role Phone Liss Moctezuma MD Primary Care Provider [phone] Encounter Details Date Type Department Care Team (Late st Contact Info) Description 12/26/2021 Ancillary Orders [facility],Outside Imaging [address] [place] [address] System, Provider [place] In, [place] [address] Social History Tobacco Use Types Packs/Day Years [...] encounter Results * Mammogram Outside (No Interpretation) (06/24/2021 12:00 AM EST) Narrative SYSTEMGENERATED, DOCUMENTATION - 12/26/2021 6:59 AM EDT This study is for PACS storage only and not for interpretation. us Provider Not In System PhD IMG OUTSIDE IMAGING W /OUT INTERPRETATION Final Result documented in this encounter Visit Diagnoses Not on filedocumented in this encounter Care Teams Supervisor International Reservations Relationship Specialty Start Date End Date Liss Moctezuma MD [address] [place] [address] PCP - General Internal Medicine 06/01/17 documented as of this encounter Additional Source Comments The information contained in this document represents components of the legal health record. It is not the complete legal health record.[facility]
--- OUTSIDE RECORDS SUMMARY | 2025-04-21 07:59 | XMS_ITS | Encounter Summary ---
Author Organization [facility] Address [address] [place] [address] Phone Care Team Providers Care Pail Bailer Name Role Phone Liss Moctezuma MD Primary Care Provider [phone] Encounter Details Date Type Department Care Team (Late st Contact Info) Description 12/26/2021 Ancillary Orders [facility],Outside Imaging [address] [place], [place] [id number] System, Provider [place] In, [place] [address] Social History Tobacco Use Types Packs/Day Years Used Date Smoking Tobacco: Never Assessed Comments Unknown Sex and Gender Information Value Date Recorded Sex Assigned at Not on file Legal Sex Female 9:33 PM EDT Gender Identity Not on file Sexual Orientation Not on file documented as of this encounter Plan of Treatment Not on file documented as of this encounter Results * NM Other Outside (No Interpretation) (06/24/2021 12:05 AM EST) Narrative SYSTEMGENERATED, DOCUMENTATION - 12/26/2021 7:01 AM EDT This study is for PACS storage only and not for interpretation. us Provider Not In System PhD IMG OUTSIDE IMAGING W /OUT INTERPRETATION Final Result documented in this encounter Visit Diagnoses Not on filedocumented in this encounter Care Teams Pail Bailer Relationship Specialty Start Date End Date Liss Moctezuma MD [address] [place] [address] PCP - General Internal Medicine 06/01/17 documented as of this encounter Additional Source Comments The information contained in this document represents components of the legal health record. It is not the complete legal health record.[facility]
== END 2025-04-21 08:54 | disposition home or self-care (01) ==
LOC: HO.HSMS 07:55
PROVIDERS: PCP Internal Medicine; Visit Provider Nurse Practitioner Family
DX: G62.9 Polyneuropathy, unspecified (principal); G81.94 Hemiplegia, unspecified affecting left nondominant side
CPT/HCPCS: 99214

== ENCOUNTER → 2025-04-21 07:55 | Outpatient (BNVA) | payer MEDICARE, MEDICAID, SELFPAY | PROVIDERS: PCP Internal Medicine; Visit Provider Nurse Practitioner Family | DX: E11.65 Type 2 diabetes mellitus with hyperglycemia (principal); E56.9 Vitamin deficiency, unspecified; G62.9 Polyneuropathy, unspecified; D64.9 Anemia, unspecified; R20.2 Paresthesia of skin; G81.94 Hemiplegia, unspecified affecting left nondominant side; G25.81 Restless legs syndrome | CPT/HCPCS: 99212 ==

== ENCOUNTER 2025-05-03 09:49 | Outpatient (AMB) | payer MEDICARE, MEDICAID, SELFPAY ==
[2025-05-03 10:00] VITALS: BP 122/80; PULSE 82; TEMP 37; O2SAT 96; BMI 38.2
--- NOTE | 2025-05-03 10:00 | AM.OFFWIN_ITS ---
Intake Vital Signs 05/03/25 10:00 Height 5 ft 2 in Weight 209 lb BMI 38.2 BP 122/80 Blood Pressure Location Lt brachial Position Sitting Pulse 82 Pulse Source Pulse Oximeter Temp 98.6 F Temp Source Oral Pulse Oximetry (%) 96 Oxygen Delivery Method Room Air Intake Visit Reasons: EP-cough, running nose Intake Note: pt presents with chest congestion with dry coughing and sinus congestion for a week Patient Tobacco Use Status: Never used Tobacco Allergies lisinopril (LISINOPRIL) Allergy (Unknown, Verified 05/03/25 10:02) SWOLLEN LIPS, angioedema, swelling Do you need a note to return to daycare/school/sports/work: No HPI HPI Comments History of Present Illness Details History - The patient is a 54-year-old female pr esenting with symptoms of an upper respiratory tract infection. - Symptoms began a week ago, including a dry cough and runny nose. - Denies fever, shortness of breath, and wheezing. - No history of asthma or COPD. - Denies ear pain, sinus pain. - On multiple medications and cautious a bout [id number] options. Physical Exam General: Cooperative, healthy appearing, comfortable and no acute distress Orientation/consciousness: Patient oriented x3 Limitations: No limitations Head: Normal to inspection Ears: Hearing grossly normal bilaterally, external ears normal, EAC closed on left, EAC normal right, TM normal right Nose: Normal external nose present, Normal nares present and Runny nose present Face and sinus: Normal facial exam and Yes sinuses nontender Mouth: Normal oral and palatal mucosa present and moist mucous membranes Throat: Yes tonsils normal, Yes uvula midline. Posterior oropharynx erythema, no exudates Eyes: Appearance normal, both eyes and all related structures Neck: Normal visual inspection, full ROM Respiratory: slight exp wheeze in RLL with rhonchi in RLL and LLL. Normal respiratory effort, able to speak in complete sentences, Actively coughing, no respiratory distress, not tachypneic, no tripod positioning and no use of accessory muscles Cardiovascular: Regular rate and rhythm. Normal S1 and S2 Skin: No rashes or lesions noted Neuro: Patient oriented x3 Extremities: Normal to inspection and Yes no clubbing, cyanosis or edema Review of Systems - General: Denies fever - Respiratory: Reports dry cough and run ny nose; denies shortness of breath and wheezing - Ears: Reports ear pain - Sinuses: Denies sinus pain All systems reviewed and are unremarkable except as noted in HPI [facility] Medical History (Updated 05/03/25 @ 10:19 by Paula Freeman PA-C) Anemia Tachycardia Overweight (BMI 25.0-29.9) Microangiopathy Left leg paresthesias COVID-19 virus infection Schizoaffective disorder Colon cancer screening Breast cancer Arthritis Depression Hiatal hernia Hearing loss Facial paralysis Schizophrenia Obesity Iron deficiency anemia Hypertension Hypercholesterolemia GERD (gastroesophageal reflux disease) Type 2 diabetes mellitus with hyperglycemia Surgical History History of removal of Port-a-Cath History of lumpectomy of right breast Hemiparesis History of eye surgery History of placement of ear tubes Family History Father Medical history unknown Mother Medical history unknown Social History Household Members: Significant [facility] Are you a primary youth care professional to a significant other at home: No Do you presently have visiting nurse or other home services: Yes Alcohol intake: never Patient Tobacco Use Status: Never used Tobacco Tobacco use type: Cigarette e-Cigarette/Vaping Use: Never Used Second Hand Smoke Exposure: No Advance Directives Date on File: 06/24/21 service: No Current occupational status: unemployed Sexual orientation: Lesbian/Reyes/Homosexual Cognitive needs: No Hearing needs: Yes (hearing aides) Vision needs: Yes (glasses) Female Reproductive History Menstrual Age of Menarche: 13 Physical Exam Vital Signs: Last Vital Signs Temp 98.6 F 05/03/25 10:00 Pulse 105 H 05/03/25 10:00 BP 122/80 05/03/25 10:00 Pulse Ox 96 05/03/25 10:00 Oxygen Delivery Method Room Air 05/03/25 10:00 BMI result Body Mass Index 38.2 Assessment & Plan Assessment & Plan (1) Lower respiratory infection (e.g., bronchitis, pneumonia, pneumonitis, pulmonitis): Code(s): J22 - Unspecified acute lower respiratory infection Plan: Plan Patient was informed and verbally consented to the use of an ambient scribe for clinic note documentation during this visit. - VSS, pt well appearing and PE remarkable for slight exp wheeze in RLL and rhonchi in bilateral lower lobes. - Plan includes a chest x-ray to rule out pneumonia - A respiratory panel test was conducted to check for viral infections. - Tessalon Perles prescribed for cough management, especially at night. Orders: Orders Resp Pathogen Panel - [facility] Today J06.9 - Acute upper respiratory infection, unspecified XR chest 2V Today R05.9 - Cough, unspecified Medications: New benzonatate 200 mg PO BEDTIME PRN 10 caps 0RF cough Coding Level of Care Code Est Pt Level 4 (64108) Diagnoses Lower respiratory infection (e.g., bronchitis, pneumonia, pneumonitis, pulmonitis) J22
== END 2025-05-03 10:23 | disposition home or self-care (01) ==
PROVIDERS: PCP Internal Medicine; Visit Provider Physician Assistant
DX: J22 Unspecified acute lower respiratory infection (principal)

== ENCOUNTER 2025-05-03 09:49 | Outpatient (REF) | payer MEDICARE, MEDICAID, SELFPAY ==
--- NOTE | ~2025-05-03 | XR_ITS ---
EXAMINATION: XR CHEST 2 VIEWS HISTORY: R05.9 - Cough, unspecified COMPARISON: Comparison is made with the prior examination dated 09/23/2016. FINDINGS: PA and lateral views of the chest are submitted. The lungs are expanded and clear. There is no pleural effusion, pneumothorax, or pulmonary vascular congestion. The heart is normal in size. There is mild degenerative disc disease of the spine. XR/XR chest 2V IMPRESSION: No acute cardiopulmonary abnormality. Electronically signed by: Baldev Vidal MD 05/03/2025 10:34 AM EDT
[2025-05-03 15:13] LABS: Chlamydia pneumoniae PCR Not Detected (Not Detect.); Coronavirus 229E PCR Not Detected (Not Detect.); Coronavirus HKU1 PCR Not Detected (Not Detect.); Coronavirus NL63 PCR Not Detected (Not Detect.); Coronavirus OC43 PCR Not Detected (Not Detect.); RSV PCR Not Detected (Not Detect.); Rhino/Enterovirus PCR Detected (Not Detect.)
[2025-05-03 15:31] LABS: Influenza A H1 PCR Not Detected (Not Detect.); Influenza A H1-2009 PCR Not Detected (Not Detect.); Influenza A H3 PCR Not Detected (Not Detect.); SARS-CoV-2 PCR Not Detected (Not Detect.)
== END 2025-05-03 09:50 | disposition home or self-care (01) ==
LOC: HO.HMGCX 09:49
PROVIDERS: PCP Internal Medicine; Visit Provider Physician Assistant
DX: R09.89 Other specified symptoms and signs involving the circulatory and respiratory systems (principal); J06.9 Acute upper respiratory infection, unspecified; R05.9 Cough, unspecified; R09.81 Nasal congestion
CPT/HCPCS: 71046; 87633; 99212

== ENCOUNTER → 2025-05-03 10:23 | Outpatient (BNV) | payer MEDICARE, MEDICAID, SELFPAY | PROVIDERS: PCP Internal Medicine; Visit Provider Radiology Diagnostic Radiology | DX: R05.9 Cough, unspecified (principal) | CPT/HCPCS: 71046 ==

== ENCOUNTER 2025-05-18 09:59 | Outpatient (REF) | payer MEDICARE, MEDICAID, SELFPAY ==
--- OUTSIDE RECORDS SUMMARY | 2025-05-18 11:38 | XMS_ITS | Encounter Summary ---
Author Organization [facility] Address [address] [place] [address] Phone Care Team Providers Care Animal Care Giver Name Role Phone Liss Moctezuma MD Primary Care Provider [phone] Encounter Details Date Type Department Care Team (Late st Contact Info) Description 12/26/2021 Ancillary Orders [facility],Outside Imaging [address] [place], [place] [phone] System, Provider Not In, [place] [address] Social History Tobacco Use Types Packs/Day Years [...] on filedocumented in this encounter Care Teams Animal Care Giver Relationship Specialty Start Date End Date Liss Moctezuma MD [address] [place] [address] PCP - General Internal Medicine 06/01/17 documented as of this encounter Additional Source Comments The information contained in this document represents components of the legal health record. It is not the complete legal health record.[facility]
--- OUTSIDE RECORDS SUMMARY | 2025-05-18 11:38 | XMS_ITS | Encounter Summary ---
Author Organization [facility] Address [address] [place] [address] Phone Care Team Providers Care Beam House Inspector Name Role Phone Liss Moctezuma MD Primary Care Provider [phone] Encounter Details Date Type Department Care Team (Late st Contact Info) Description 12/26/2021 Ancillary Orders [facility],Outside Imaging [address] [place], [place] [phone] System, Provider [place] In, [place] [address] Social History Tobacco Use Types Packs/Day Years [...] on filedocumented in this encounter Care Teams Beam House Inspector Relationship Specialty Start Date End Date Liss Moctezuma MD [address] [place] [address] PCP - General Internal Medicine 06/01/17 documented as of this encounter Additional Source Comments The information contained in this document represents components of the legal health record. It is not the complete legal health record.[facility]
--- OUTSIDE RECORDS SUMMARY | 2025-05-18 11:38 | XMS_ITS | Encounter Summary ---
Author Organization [facility] Address [address] [place] [address] Phone Care Team Providers Care Rv Mechanic Name Role Phone Liss Moctezuma MD Primary Care Provider [phone] Encounter Details Date Type Department Care Team (Late st Contact Info) Description 12/26/2021 Ancillary Orders [facility],Outside Imaging [address] [place], [place] [phone] System, Provider Not In, [place] [address] Social History Tobacco Use Types Packs/Day Years [...] on filedocumented in this encounter Care Teams Rv Mechanic Relationship Specialty Start Date End Date Liss Moctezuma MD [address] [place] [address] PCP - General Internal Medicine 06/01/17 documented as of this encounter Additional Source Comments The information contained in this document represents components of the legal health record. It is not the complete legal health record.[facility]
--- OUTSIDE RECORDS SUMMARY | 2025-05-18 11:38 | XMS_ITS | Clinical Summary ---
Author Organization [facility] Address [address] [place] [address] Phone Care Team Providers Care Intellectual Property Legal Assistant Name Role Phone Liss Moctezuma MD Primary Care Provider [phone] Allergies Active Allergy Reactions Criticality Noted Date Comments Lisinopril Angioedema 01/23/2022 Medications cloNIDine HCL (CATAPRES) 0.1 MG tablet Take 0.1 mg by mouth 2 (two) times a day as needed. 2 Active cloZAPine (CLOZARIL) 100 MG tablet Take 150 mg by mouth 2 (two) times a day. 2 Active docusate sodium (COLACE) 100 MG capsule Take 100 mg by mouth daily. 2 Active empagliflozin (JARDIANCE) 10 mg tablet Take 10 mg by mouth daily. 2 Active lurasidone (LATUDA) 80 mg Tab Take 80 mg by mouth nightly at bedtime. 2 Active LORazepam (ATIVAN) 1 MG tablet Take 1 mg by mouth 2 (two) times a day. 2 Active traZODone (DESYREL) 100 MG tablet Take 100 mg by mouth nightly at bedtime as needed. 2 Active cholecalciferol (VITAMIN D3) 400 unit tablet Take 10 mcg by mouth daily. 2 Active cloNIDine HCL (CATAPRES) 0.1 MG tablet Take 0.1 mg by mouth 2 (two) times a day. 2 Active ferrous sulfate 324 mg (65 mg mashpee iron) TbEC Take 324 mg by mouth daily. 2 Active metFORMIN (GLUCOPHAGE) 1000 MG tablet Take 1,000 mg by mouth 2 (two) times a day. 2 Active multivitamin per tablet Take 1 tablet by mouth daily. 2 Active omeprazole (PRILOSEC) 20 MG capsule Take 20 mg by mouth daily. 2 Active simvastatin (ZOCOR) 5 MG tablet Take 5 mg by mouth nightly at bedtime. at bedtime. 2 Active losartan (COZAAR) 25 MG tablet Take 25 mg by mouth daily. Active omega-3 fatty acids-fish oil 340-1,000 mg Cap Take by mouth daily. Active silver sulfADIAZINE (SILVADENE) 1 % cream Apply topically 2 (two) times a day. 400 g 2 Active Active Problems Problem Noted Date Diagnosed Date Malignant neoplasm of upper- outer quadrant of right breast in female, estrogen receptor positive 01/23/2022 Social History Tobacco Use Types Packs/Day Years Used Date Smoking Tobacco: Never Smokeless Tobacco: Never Alcohol Use Standard Drinks/Week Comments Never 0 (1 standard drink = 0.6 oz pur e alcohol) Education Answer Date Recorded Are you interested in more education? Not on abdelrahman e 11/21/2022 Are you concerned about learning? Not on file 11/21/2022 No 11/21/2022 No 11/21/2022 Digital Access Answer Date Recorded No 12/20/2022 No 12/20/2022 No 12/20/2022 Reliable internet access at home? Not on file 12/20/2022 Device with a working camera? Not on file Comments Unknown Sex and Gender Information Value Date Recorded Sex Assigned at Not on file Legal Sex Female 9:33 PM EDT Gender Identity Not on file Sexual Orientation Not on file Last Filed Vital Signs Vital Sign Reading Time Taken Comments Blood Pressure 113/80 03/11/2022 9:16 AM EDT Pulse 89 03/11/2022 9:16 AM EDT Temperature 36.9 C (98.4 F) 01/23/2022 2:16 PM EDT Respiratory Rate 18 02/25/2022 12:2 1 PM EDT Oxygen Saturation 100% 03/11/2022 9:16 AM EDT Inhaled Oxygen Concentration - - Weight 74.8 kg (164 lb 12.8 oz) 03/11/2022 9:16 AM EDT Height 157.5 cm (5' 2 ) 01/23/2022 2:16 PM EDT Body Mass Index 30.14 01/23/2022 2:16 PM EDT Plan of Treatment Health Maintenance Due Date Last Done Comments Adult Td,Tdap Booster 1971 CREATININE LEVEL 1971 LIPID PANEL 1971 POTASSIUM LEVEL 1971 DEPRESSION SCREENING 1983 HEPATITIS C SCREENING 1989 HIV ONE-TIME SCREENING (18-65 YEARS) 1989 ZOSTER VACCINES (1 of 2) 1990 PAP SMEAR 1992 COLOGUARD 2016 COLONOSCOPY 2016 COLORECTAL CANCER SCREENING 2016 FIT TEST 2016 FOBT 2016 SIGMOIDOSCOPY 2016 VIRTUAL COLONOSCOPY 2016 PNEUMOCOCCAL VACCINES (50+ years) (2 of 2 - PCV) 11/20/2017 11/20/2016 ABSOLUTE NEUTROPHIL COUNT (ANC) 08/15/2021 07/18/2021, 06/19/2021, 05/23/2021, Additional history exists RSV VACCINE (1 - Risk 50-74 years 1-dose series) 2021 MAMMOGRAM 06/24/2023 06/24/2021, 1108/2020, 05/13/2021, Additional history exists INFLUENZA VACCINE (#1) 2025 , 05/04/2019, 05/07/2018, Additional history exists COVID-19 VACCINE (2 - 2024- season) 2025 10/05/2020 SMOKING STATUS SCREENING (Once After 26 Yrs) Completed 01/23/2022 HEPATITIS A VACCINES Aged Out No long er eligible based on patient's age to complete this topic HIB VACCINES Aged Out No longer eligi ble based on patient's age to complete this topic MENINGOCOCCAL VACCINES (ACWY) Aged Out No longer eligible based on patient's age to complete this topic MENINGOCOCCAL VACCINES (B) Aged Out N o longer eligible based on patient's age to complete this topic Medical Devices Not on file Procedures Procedure Name Priority Date/Time Associated Diagnosis Comments CBC AND DIFFERENTIAL Routine 07/18/2021 12:14 PM EST Major depressive disorder, recurrent episode, moderate Drug therapy Atypical psychosis BI MAMMOGRAM OUTSIDE (NO INTERPRETATION) Routine 06/24/2021 12:00 AM EST from Last 3 Months or Most Recently Relevant to Health Maintenance Results * CBC and differential (07/18/2021 12:14 PM EST) WBC 9.66 4.00 - 11.00 K/uL [facility] RBC 4.75 3.72 - 5.30 M/uL [facility] HGB 14.6 10.6 - 15.5 g/dL [facility] HCT 43.9 32.0 - 45.0 % [facility] PLT 309 140 - 430 K/uL [facility] MCV 92.4 78.0 - 97.0 fL [facility] MCH 30.7 25.0 - 33.0 pg [facility] MCHC 33.3 32.0 - 36.0 g/dL [facility] RDW 14.6 11.0 - 16.0 % [facility] MPV 10.7 8.4 - 12.8 fl [facility] NRBC 0.00 0 /100 WBCs [facility] ABSOLUTE NRBC 0.00 0 K/uL [facility] DIFF METHOD Auto [facility] NEUTS 67.4 43.0 - 75.0 % [facility] LYMPHS 27.2 18.2 - 47.4 % [facility] MONOS 4.8 4.00 - 11.00 % [facility] EOS 0.0 0.0 - 8.0 % [facility] BASOS 0.4 0.0 - 2.0 % [facility] Granulocytes, immature (%) 0.2 0.0 - 0.9 % [facility] ABSOLUTE NEUTS 6.51 1.80 - 7.70 K/uL [facility] ABSOLUTE LYMPHS 2.63 1.00 - 3.10 K/uL [facility] ABSOLUTE MONOS 0.46 0.20 - 0.80 K/uL [facility] ABSOLUTE EOS 0.00 0.00 - 0.80 K/uL [facility] ABSOLUTE BASOS 0.04 0.00 - 0.09 K/uL [facility] Granulocytes, immature 0.02 0.00 - 0.05 K/uL [facility] Blood 07/18/2021 12:1 4 PM EST 07/18/2021 12:18 PM EST us Paris Bruce MD LAB BLOOD ORDERABLES Final Resu lt [facility] [address] [place] [address] * Mammogram Outside (No Interpretation) (06/24/2021 12:00 AM EST) Narrative SYSTEMGENERATED, DOCUMENTATION - 12/26/2021 6:59 AM EDT This study is for PACS storage only and not for interpretation. us Provider Not In System PhD IMG OUTSIDE IMAGING W /OUT INTERPRETATION Final Result from Last 3 Months or Most Recently Relevant to Health Maintenance Insurance MEDICARE PART A & B [facility] MEDICARE PART A & B HEALTH MEDICARE PART A & B [id number] [place], [place] [address]HEALTH MEDICARE PART A & B Member Subscriber Plan / Payer (Ef fective 2004-Present) Name:Sabra Deutsch Member ID:[id number] Relation to Subscriber:Self Name:Sabra Deutsch Subscriber ID:[id number] Payer ID:[id number] Group ID:Not on file Type:Medicare Address: [employer] [address] & B [place] A & B [employer] MEDICARE PART A & B Member Subscriber Plan / Payer ( fective 2004-) Name:Sabra Deutsch Member ID:[id number] Relation to Subscriber:Self Name:Sabra Deutsch Subscriber ID:[id number] Payer ID:[id number] Group ID:Not on file Type:Medicare Address: [employer] [address] [place] [phone] [place] [facility] & [facility] [place] Care Teams Intellectual Property Legal Assistant Relationship Specialty Start Date End Date Liss Moctezuma MD [address] [place] [id number] PCP - General Internal Medicine 06/01/17 Additional Source Comments The information contained in this document represents components of the legal health record. It is not the complete legal health record.[facility]
--- OUTSIDE RECORDS SUMMARY | 2025-05-18 11:38 | XMS_ITS | Encounter Summary ---
Author Organization [facility] Address [address] [place] [address] Phone Care Team Providers Care Manager Strategic Partnerships Name Role Phone Liss Moctezuma MD Primary Care Provider [phone] Encounter Details Date Type Department Care Team (Late st Contact Info) Description 12/26/2021 Ancillary Orders [facility],Outside Imaging [address] [place], [place] [id number] System, Provider Not In, [place] [address] Social History Tobacco Use Types Packs/Day Years [...] on filedocumented in this encounter Care Teams Manager Strategic Partnerships Relationship Specialty Start Date End Date Liss Moctezuma MD [address] [place] [address] PCP - General Internal Medicine 06/01/17 documented as of this encounter Additional Source Comments The information contained in this document represents components of the legal health record. It is not the complete legal health record.[facility]
--- OUTSIDE RECORDS SUMMARY | 2025-05-18 11:38 | XMS_ITS | Encounter Summary ---
Author Organization [facility] Address [address] [place] [address] Phone Care Team Providers Care Postbed Stitcher Name Role Phone Liss Moctezuma MD Primary Care Provider [phone] Encounter Details Date Type Department Care Team (Late st Contact Info) Description 06/01/2017 Transcribe Orders [facility] [address] [place] [address] Timothy Aleman MD [address] [place] [address] Atypical psychosis (Primary Dx) Social History Tobacco [...] EST) WBC 9.66 3.40 - 11.20 K/uL [facility] RBC 4.20 3.80 - 4.80 M/uL [facility] HGB 11.7(L) 12.0 - 15.0 g/dL [facility] HCT 35.7(L) 36.0 - 46.0 % [facility] PLT 340 130 - 400 K/uL [facility] MCV 85.0 79.0 - 98.0 fL [facility] MCH 27.9 27.0 - 34.8 pg [facility] MCHC 32.8 31.5 - 36.0 g/dL [facility] RDW 15.0(H) 10.8 - 14.6 % [facility] MPV 11.2 9.4 - 12.4 fl [facility] NRBC 0.00 /100 WBCs [facility] ABSOLUTE NRBC 0.00 K/uL [facility] DIFF METHOD Auto [facility] NEUTS 70.4 45.30 - 77.70 % [facility] LYMPHS 22.0 12.30 - 39.70 % [facility] MONOS 5.9 4.10 - 12.80 % [facility] EOS 0.0 0 - 7.2 % [facility] BASOS 0.4 0 - 2.80 % [facility] Granulocytes, immature (%) 1.3(H) 0.0 - 0.9 % [facility] ABSOLUTE NEUTS 6.79 1.40 - 7.70 K/uL [facility] ABSOLUTE LYMPHS 2.13 0.60 - 3.20 K/uL [facility] ABSOLUTE MONOS 0.57 0.11 - 0.59 K/uL [facility] ABSOLUTE EOS 0.00(L) 0.01 - 0.50 K/uL [facility] ABSOLUTE BASOS 0.04 0.00 - 0.08 K/uL [facility] Granulocytes, immature 0.13(H) 0.00 - 0.05 K/uL [facility] Blood 06/01/2017 10:1 9 AM EST 06/01/2017 10:21 AM EST us Timothy Aleman MD LAB BLOOD ORDERABLES Edited Result - Final [facility] [address] [place] [address] documented in this encounter Visit Diagnoses Diagnosis Atypical psychosis- Primary Unspecified psychosis documented in this encounter Care Teams Postbed Stitcher Relationship Specialty Start Date End Date Liss Moctezuma MD [address] [place] [phone] PCP - General Internal Medicine 06/01/17 documented as of this encounter Additional Source Comments The information contained in this document represents components of the legal health record. It is not the complete legal health record.[facility]
--- OUTSIDE RECORDS SUMMARY | 2025-05-18 11:38 | XMS_ITS | Encounter Summary ---
Author Organization [facility] Address [address] [place] [address] Phone Care Team Providers Care Reconcilement Clerk Name Role Phone Liss Moctezuma MD Primary Care Provider [phone] Encounter Details Date Type Department Care Team (Late st Contact Info) Description 08/20/2017 Transcribe Orders [facility] Laboratory [address] [place] [address] Timothy Aleman MD [address] [place] [address] Diagnosis unknown (Primary Dx) Social History Tobacco [...] EST) WBC 10.82 3.40 - 11.20 K/uL [facility] RBC 4.32 3.80 - 4.80 M/uL [facility] HGB 11.9(L) 12.0 - 15.0 g/dL [facility] HCT 36.9 36.0 - 46.0 % [facility] PLT 359 130 - 400 K/uL [facility] MCV 85.4 79.0 - 98.0 fL [facility] MCH 27.5 27.0 - 34.8 pg [facility] MCHC 32.2 31.5 - 36.0 g/dL [facility] RDW 16.3(H) 10.8 - 14.6 % [facility] MPV 10.8 9.4 - 12.4 fl [facility] NRBC 0.00 0.00 /100 WBCs [facility] ABSOLUTE NRBC 0.00 0.00 K/uL [facility] DIFF METHOD Auto [facility] NEUTS 55.9 45.30 - 77.70 % [facility] LYMPHS 38.7 12.30 - 39.70 % [facility] MONOS 4.8 4.10 - 12.80 % [facility] EOS 0.0 0 - 7.2 % [facility] BASOS 0.3 0 - 2.80 % [facility] Granulocytes, immature (%) 0.3 0.0 - 0.9 % [facility] ABSOLUTE NEUTS 6.05 1.40 - 7.70 K/uL [facility] ABSOLUTE LYMPHS 4.19(H) 0.60 - 3.20 K/uL [facility] ABSOLUTE MONOS 0.52 0.11 - 0.59 K/uL [facility] ABSOLUTE EOS 0.00(L) 0.01 - 0.50 K/uL [facility] ABSOLUTE BASOS 0.03 0.00 - 0.08 K/uL [facility] Granulocytes, immature 0.03 0.00 - 0.05 K/uL [facility] Blood 06/28/2018 4:16 PM EST 06/28/2018 4:18 PM EST Timothy Aleman MD LAB BLOOD ORDERABLES Final Result Performing Organization Address City/State/[facility] Co de Phone Number [address] [address] * (ABNORMAL) CBC and differential (05/31/2018 11:14 AM EST) WBC 12.21(H) 3.40 - 11.20 K/uL [facility] RBC 4.32 3.80 - 4.80 M/uL [facility] HGB 11.8(L) 12.0 - 15.0 g/dL [facility] HCT 36.6 36.0 - 46.0 % [facility] PLT 357 130 - 400 K/uL [facility] MCV 84.7 79.0 - 98.0 fL [facility] MCH 27.3 27.0 - 34.8 pg [facility] MCHC 32.2 31.5 - 36.0 g/dL [facility] RDW 16.0(H) 10.8 - 14.6 % [facility] MPV 10.6 9.4 - 12.4 fl [facility] NRBC 0.00 0.00 /100 WBCs [facility] ABSOLUTE NRBC 0.00 0.00 K/uL [facility] DIFF METHOD Auto [facility] NEUTS 67.7 45.30 - 77.70 % [facility] LYMPHS 28.3 12.30 - 39.70 % [facility] MONOS 3.4(L) 4.10 - 12.80 % [facility] EOS 0.0 0 - 7.2 % [facility] BASOS 0.2 0 - 2.80 % [facility] Granulocytes, immature (%) 0.4 0.0 - 0.9 % [facility] ABSOLUTE NEUTS 8.27(H) 1.40 - 7.70 K/uL [facility] ABSOLUTE LYMPHS 3.46(H) 0.60 - 3.20 K/uL [facility] ABSOLUTE MONOS 0.41 0.11 - 0.59 K/uL [facility] ABSOLUTE EOS 0.00(L) 0.01 - 0.50 K/uL [facility] ABSOLUTE BASOS 0.02 0.00 - 0.08 K/uL [facility] Granulocytes, immature 0.05 0.00 - 0.05 K/uL [facility] Blood 05/31/2018 11:1 4 AM EST 05/31/2018 11:16 AM EST Timothy Aleman MD LAB BLOOD ORDERABLES Final Result [facility] [address] [place] [address] * (ABNORMAL) CBC and differential (05/04/2018 1:10 PM EDT) WBC 10.44 3.40 - 11.20 K/uL [facility] RBC 4.39 3.80 - 4.80 M/uL [facility] HGB 12.0 12.0 - 15.0 g/dL [facility] HCT 36.8 36.0 - 46.0 % [facility] PLT 365 130 - 400 K/uL [facility] MCV 83.8 79.0 - 98.0 fL [facility] MCH 27.3 27.0 - 34.8 pg [facility] MCHC 32.6 31.5 - 36.0 g/dL [facility] RDW 15.6(H) 10.8 - 14.6 % [facility] MPV 10.6 9.4 - 12.4 fl [facility] NRBC 0.00 /100 WBCs [facility] ABSOLUTE NRBC 0.00 K/uL [facility] DIFF METHOD Auto [facility] NEUTS 55.1 45.30 - 77.70 % [facility] LYMPHS 39.6 12.30 - 39.70 % [facility] MONOS 4.7 4.10 - 12.80 % [facility] EOS 0.1 0 - 7.2 % [facility] BASOS 0.3 0 - 2.80 % [facility] Granulocytes, immature (%) 0.2 0.0 - 0.9 % [facility] ABSOLUTE NEUTS 5.76 1.40 - 7.70 K/uL [facility] ABSOLUTE LYMPHS 4.13(H) 0.60 - 3.20 K/uL [facility] ABSOLUTE MONOS 0.49 0.11 - 0.59 K/uL [facility] ABSOLUTE EOS 0.01 0.01 - 0.50 K/uL [facility] ABSOLUTE BASOS 0.03 0.00 - 0.08 K/uL [facility] Granulocytes, immature 0.02 0.00 - 0.05 K/uL [facility] Blood 05/04/2018 1:10 PM EDT 05/04/2018 1:13 PM EDT us Timothy Aleman MD LAB BLOOD ORDERABLES Final Result [facility] [address] [address] * (ABNORMAL) CBC and differential (04/09/2018 10:30 AM EDT) WBC 9.89 3.40 - 11.20 K/uL [facility] RBC 4.43 3.80 - 4.80 M/uL [facility] HGB 12.2 12.0 - 15.0 g/dL [facility] HCT 37.2 36.0 - 46.0 % [facility] PLT 366 130 - 400 K/uL [facility] MCV 84.0 79.0 - 98.0 fL [facility] MCH 27.5 27.0 - 34.8 pg [facility] MCHC 32.8 31.5 - 36.0 g/dL [facility] RDW 15.2(H) 10.8 - 14.6 % [facility] MPV 10.7 9.4 - 12.4 fl [facility] NRBC 0.00 /100 WBCs [facility] ABSOLUTE NRBC 0.00 K/uL [facility] DIFF METHOD Auto [facility] NEUTS 59.0 45.30 - 77.70 % [facility] LYMPHS 34.8 12.30 - 39.70 % [facility] MONOS 5.6 4.10 - 12.80 % [facility] EOS 0.0 0 - 7.2 % [facility] BASOS 0.3 0 - 2.80 % [facility] Granulocytes, immature (%) 0.3 0.0 - 0.9 % [facility] ABSOLUTE NEUTS 5.84 1.40 - 7.70 K/uL [facility] ABSOLUTE LYMPHS 3.44(H) 0.60 - 3.20 K/uL [facility] ABSOLUTE MONOS 0.55 0.11 - 0.59 K/uL [facility] ABSOLUTE EOS 0.00(L) 0.01 - 0.50 K/uL [facility] ABSOLUTE BASOS 0.03 0.00 - 0.08 K/uL [facility] Granulocytes, immature 0.03 0.00 - 0.05 K/uL [facility] Blood 04/09/2018 10:3 0 AM EDT 04/09/2018 10:33 AM EDT us Timothy Aleman MD LAB BLOOD ORDERABLES Final Result [facility] [address] [place] [address] * (ABNORMAL) CBC and differential (03/04/2018 2:36 PM EDT) WBC 11.50(H) 3.40 - 11.20 K/uL [facility] RBC 4.20 3.80 - 4.80 M/uL [facility] HGB 11.8(L) 12.0 - 15.0 g/dL [facility] HCT 35.6(L) 36.0 - 46.0 % [facility] PLT 347 130 - 400 K/uL [facility] MCV 84.8 79.0 - 98.0 fL [facility] MCH 28.1 27.0 - 34.8 pg [facility] MCHC 33.1 31.5 - 36.0 g/dL [facility] RDW 16.0(H) 10.8 - 14.6 % [facility] MPV 10.9 9.4 - 12.4 fl [facility] NRBC 0.00 /100 WBCs [facility] ABSOLUTE NRBC 0.00 K/uL [facility] DIFF METHOD Auto [facility] NEUTS 54.4 45.30 - 77.70 % [facility] LYMPHS 39.3 12.30 - 39.70 % [facility] MONOS 5.7 4.10 - 12.80 % [facility] EOS 0.0 0 - 7.2 % [facility] BASOS 0.3 0 - 2.80 % [facility] Granulocytes, immature (%) 0.3 0.0 - 0.9 % [facility] ABSOLUTE NEUTS 6.26 1.40 - 7.70 K/uL [facility] ABSOLUTE LYMPHS 4.52(H) 0.60 - 3.20 K/uL [facility] ABSOLUTE MONOS 0.66(H) 0.11 - 0.59 K/uL [facility] ABSOLUTE EOS 0.00(L) 0.01 - 0.50 K/uL [facility] ABSOLUTE BASOS 0.03 0.00 - 0.08 K/uL [facility] Granulocytes, immature 0.03 0.00 - 0.05 K/uL [facility] Blood 03/04/2018 2:36 PM EDT 03/04/2018 2:38 PM EDT us Timothy Aleman MD LAB BLOOD ORDERABLES Final Result [address] [address] * (ABNORMAL) CBC and differential (02/08/2018 4:37 PM EDT) WBC 10.13 3.40 - 11.20 K/uL [facility] RBC 4.27 3.80 - 4.80 M/uL [facility] HGB 11.8(L) 12.0 - 15.0 g/dL [facility] HCT 35.9(L) 36.0 - 46.0 % [facility] PLT 347 130 - 400 K/uL [facility] MCV 84.1 79.0 - 98.0 fL [facility] MCH 27.6 27.0 - 34.8 pg [facility] MCHC 32.9 31.5 - 36.0 g/dL [facility] RDW 16.7(H) 10.8 - 14.6 % [facility] MPV 10.9 9.4 - 12.4 fl [facility] NRBC 0.00 /100 WBCs [facility] ABSOLUTE NRBC 0.00 K/uL [facility] DIFF METHOD Auto [facility] NEUTS 51.7 45.30 - 77.70 % [facility] LYMPHS 42.8(H) 12.30 - 39.70 % [facility] MONOS 4.9 4.10 - 12.80 % [facility] EOS 0.0 0 - 7.2 % [facility] BASOS 0.3 0 - 2.80 % [facility] Granulocytes, immature (%) 0.3 0.0 - 0.9 % [facility] ABSOLUTE NEUTS 5.23 1.40 - 7.70 K/uL [facility] ABSOLUTE LYMPHS 4.34(H) 0.60 - 3.20 K/uL [facility] ABSOLUTE MONOS 0.50 0.11 - 0.59 K/uL [facility] ABSOLUTE EOS 0.00(L) 0.01 - 0.50 K/uL [facility] ABSOLUTE BASOS 0.03 0.00 - 0.08 K/uL [facility] Granulocytes, immature 0.03 0.00 - 0.05 K/uL [facility] Blood 02/08/2018 4:37 PM EDT 02/08/2018 4:39 PM EDT us Timothy Aleman MD LAB BLOOD ORDERABLES Final Result Performing Organization Address City/State/[facility] Co de Phone Number [facility] [address] [place] [address] * (ABNORMAL) CBC and differential (01/13/2018 9:15 AM EDT) WBC 9.75 3.40 - 11.20 K/uL [facility] RBC 4.25 3.80 - 4.80 M/uL [facility] HGB 11.6(L) 12.0 - 15.0 g/dL [facility] HCT 35.5(L) 36.0 - 46.0 % [facility] PLT 323 130 - 400 K/uL [facility] MCV 83.5 79.0 - 98.0 fL [facility] MCH 27.3 27.0 - 34.8 pg [facility] MCHC 32.7 31.5 - 36.0 g/dL [facility] RDW 16.8(H) 10.8 - 14.6 % [facility] MPV 10.6 9.4 - 12.4 fl [facility] NRBC 0.00 /100 WBCs [facility] ABSOLUTE NRBC 0.00 K/uL [facility] DIFF METHOD Auto [facility] NEUTS 57.3 45.30 - 77.70 % [facility] LYMPHS 37.8 12.30 - 39.70 % [facility] MONOS 4.4 4.10 - 12.80 % [facility] EOS 0.0 0 - 7.2 % [facility] BASOS 0.2 0 - 2.80 % [facility] Granulocytes, immature (%) 0.3 0.0 - 0.9 % [facility] ABSOLUTE NEUTS 5.58 1.40 - 7.70 K/uL [facility] ABSOLUTE LYMPHS 3.69(H) 0.60 - 3.20 K/uL [facility] ABSOLUTE MONOS 0.43 0.11 - 0.59 K/uL [facility] ABSOLUTE EOS 0.00(L) 0.01 - 0.50 K/uL [facility] ABSOLUTE BASOS 0.02 0.00 - 0.08 K/uL [facility] Granulocytes, immature 0.03 0.00 - 0.05 K/uL [facility] Blood 01/13/2018 9:15 AM EDT 01/13/2018 9:19 AM EDT us Timothy Aleman MD LAB BLOOD ORDERABLES Final Result Performing Organization Address City/State/[facility] Co de Phone Number [address] [address] * (ABNORMAL) CBC and differential (12/14/2017 4:18 PM EDT) WBC 10.35 3.40 - 11.20 K/uL [facility] RBC 4.32 3.80 - 4.80 M/uL [facility] HGB 11.8(L) 12.0 - 15.0 g/dL [facility] HCT 35.7(L) 36.0 - 46.0 % [facility] PLT 337 130 - 400 K/uL [facility] MCV 82.6 79.0 - 98.0 fL [facility] MCH 27.3 27.0 - 34.8 pg [facility] MCHC 33.1 31.5 - 36.0 g/dL [facility] RDW 15.9(H) 10.8 - 14.6 % [facility] MPV 11.1 9.4 - 12.4 fl [facility] NRBC 0.00 /100 WBCs [facility] ABSOLUTE NRBC 0.00 K/uL [facility] DIFF METHOD Auto [facility] NEUTS 50.6 45.30 - 77.70 % [facility] LYMPHS 43.1(H) 12.30 - 39.70 % [facility] MONOS 5.7 4.10 - 12.80 % [facility] EOS 0.0 0 - 7.2 % [facility] BASOS 0.3 0 - 2.80 % [facility] Granulocytes, immature (%) 0.3 0.0 - 0.9 % [facility] ABSOLUTE NEUTS 5.24 1.40 - 7.70 K/uL [facility] ABSOLUTE LYMPHS 4.46(H) 0.60 - 3.20 K/uL [facility] ABSOLUTE MONOS 0.59 0.11 - 0.59 K/uL [facility] ABSOLUTE EOS 0.00(L) 0.01 - 0.50 K/uL [facility] ABSOLUTE BASOS 0.03 0.00 - 0.08 K/uL [facility] Granulocytes, immature 0.03 0.00 - 0.05 K/uL [facility] Blood 12/14/2017 4:18 PM EDT 12/14/2017 4:21 PM EDT us Timothy Aleman MD LAB BLOOD ORDERABLES Final Result Performing Organization Address City/State/[facility] Co de Phone Number [facility] [address] [place] [address] * (ABNORMAL) CBC and differential (11/16/2017 4:22 PM EDT) WBC 11.28(H) 3.40 - 11.20 K/uL [facility] RBC 4.20 3.80 - 4.80 M/uL [facility] HGB 11.5(L) 12.0 - 15.0 g/dL [facility] HCT 35.1(L) 36.0 - 46.0 % [facility] PLT 348 130 - 400 K/uL [facility] MCV 83.6 79.0 - 98.0 fL [facility] MCH 27.4 27.0 - 34.8 pg [facility] MCHC 32.8 31.5 - 36.0 g/dL [facility] RDW 16.3(H) 10.8 - 14.6 % [facility] MPV 10.8 9.4 - 12.4 fl [facility] NRBC 0.00 /100 WBCs [facility] ABSOLUTE NRBC 0.00 K/uL [facility] DIFF METHOD Auto [facility] NEUTS 55.7 45.30 - 77.70 % [facility] LYMPHS 38.5 12.30 - 39.70 % [facility] MONOS 5.3 4.10 - 12.80 % [facility] EOS 0.0 0 - 7.2 % [facility] BASOS 0.2 0 - 2.80 % [facility] Granulocytes, immature (%) 0.3 0.0 - 0.9 % [facility] ABSOLUTE NEUTS 6.29 1.40 - 7.70 K/uL [facility] ABSOLUTE LYMPHS 4.34(H) 0.60 - 3.20 K/uL [facility] ABSOLUTE MONOS 0.60(H) 0.11 - 0.59 K/uL [facility] ABSOLUTE EOS 0.00(L) 0.01 - 0.50 K/uL [facility] ABSOLUTE BASOS 0.02 0.00 - 0.08 K/uL [facility] Granulocytes, immature 0.03 0.00 - 0.05 K/uL [facility] Blood 11/16/2017 4:22 PM EDT 11/16/2017 4:24 PM EDT Timothy Aleman MD LAB BLOOD ORDERABLES Final Result [address] [address] * (ABNORMAL) CBC and differential (10/15/2017 11:37 AM EDT) WBC 9.36 3.40 - 11.20 K/uL [facility] RBC 4.34 3.80 - 4.80 M/uL [facility] HGB 11.9(L) 12.0 - 15.0 g/dL [facility] HCT 36.5 36.0 - 46.0 % [facility] PLT 336 130 - 400 K/uL [facility] MCV 84.1 79.0 - 98.0 fL [facility] MCH 27.4 27.0 - 34.8 pg [facility] MCHC 32.6 31.5 - 36.0 g/dL [facility] RDW 16.5(H) 10.8 - 14.6 % [facility] MPV 10.5 9.4 - 12.4 fl [facility] NRBC 0.00 /100 WBCs [facility] ABSOLUTE NRBC 0.00 K/uL [facility] DIFF METHOD Auto [facility] NEUTS 54.8 45.30 - 77.70 % [facility] LYMPHS 41.1(H) 12.30 - 39.70 % [facility] MONOS 3.7(L) 4.10 - 12.80 % [facility] EOS 0.0 0 - 7.2 % [facility] BASOS 0.2 0 - 2.80 % [facility] Granulocytes, immature (%) 0.2 0.0 - 0.9 % [facility] ABSOLUTE NEUTS 5.12 1.40 - 7.70 K/uL [facility] ABSOLUTE LYMPHS 3.85(H) 0.60 - 3.20 K/uL [facility] ABSOLUTE MONOS 0.35 0.11 - 0.59 K/uL [facility] ABSOLUTE EOS 0.00(L) 0.01 - 0.50 K/uL [facility] ABSOLUTE BASOS 0.02 0.00 - 0.08 K/uL [facility] Granulocytes, immature 0.02 0.00 - 0.05 K/uL [facility] Blood 10/15/2017 11:3 7 AM EDT 10/15/2017 11:39 AM EDT us Timothy Aleman MD LAB BLOOD ORDERABLES Final Result [facility] [address] [place] [address] * (ABNORMAL) CBC and differential (09/21/2017 4:29 PM EST) WBC 12.38(H) 3.40 - 11.20 K/uL [facility] RBC 4.20 3.80 - 4.80 M/uL [facility] HGB 11.4(L) 12.0 - 15.0 g/dL [facility] HCT 35.0(L) 36.0 - 46.0 % [facility] PLT 344 130 - 400 K/uL [facility] MCV 83.3 79.0 - 98.0 fL [facility] MCH 27.1 27.0 - 34.8 pg [facility] MCHC 32.6 31.5 - 36.0 g/dL [facility] RDW 16.5(H) 10.8 - 14.6 % [facility] MPV 10.9 9.4 - 12.4 fl [facility] NRBC 0.00 /100 WBCs [facility] ABSOLUTE NRBC 0.00 K/uL [facility] DIFF METHOD Auto [facility] NEUTS 60.9 45.30 - 77.70 % [facility] LYMPHS 33.8 12.30 - 39.70 % [facility] MONOS 4.4 4.10 - 12.80 % [facility] EOS 0.0 0 - 7.2 % [facility] BASOS 0.3 0 - 2.80 % [facility] Granulocytes, immature (%) 0.6 0.0 - 0.9 % [facility] ABSOLUTE NEUTS 7.53 1.40 - 7.70 K/uL [facility] ABSOLUTE LYMPHS 4.19(H) 0.60 - 3.20 K/uL [facility] ABSOLUTE MONOS 0.55 0.11 - 0.59 K/uL [facility] ABSOLUTE EOS 0.00(L) 0.01 - 0.50 K/uL [facility] ABSOLUTE BASOS 0.04 0.00 - 0.08 K/uL [facility] Granulocytes, immature 0.07(H) 0.00 - 0.05 K/uL [facility] Blood 09/21/2017 4:29 PM EST 09/21/2017 4:32 PM EST us Timothy Aleman MD LAB BLOOD ORDERABLES Final Result Performing Organization Address City/State/[facility] Co de Phone Number [facility]ER[facility] [address] [address] * (ABNORMAL) CBC and differential (08/20/2017 12:51 PM EST) WBC 10.42 3.40 - 11.20 K/uL [facility] RBC 4.28 3.80 - 4.80 M/uL [facility] HGB 11.5(L) 12.0 - 15.0 g/dL [facility] HCT 36.1 36.0 - 46.0 % [facility] PLT 351 130 - 400 K/uL [facility] MCV 84.3 79.0 - 98.0 fL [facility] MCH 26.9(L) 27.0 - 34.8 pg [facility] MCHC 31.9 31.5 - 36.0 g/dL [facility] RDW 16.2(H) 10.8 - 14.6 % [facility] MPV 11.2 9.4 - 12.4 fl [facility] NRBC 0.00 /100 WBCs [facility] ABSOLUTE NRBC 0.00 K/uL [facility] DIFF METHOD Auto [facility] NEUTS 59.9 45.30 - 77.70 % [facility] LYMPHS 34.5 12.30 - 39.70 % [facility] MONOS 4.9 4.10 - 12.80 % [facility] EOS 0.0 0 - 7.2 % [facility] BASOS 0.4 0 - 2.80 % [facility] Granulocytes, immature (%) 0.3 0.0 - 0.9 % [facility] ABSOLUTE NEUTS 6.25 1.40 - 7.70 K/uL [facility] ABSOLUTE LYMPHS 3.59(H) 0.60 - 3.20 K/uL [facility] ABSOLUTE MONOS 0.51 0.11 - 0.59 K/uL [facility] ABSOLUTE EOS 0.00(L) 0.01 - 0.50 K/uL [facility] ABSOLUTE BASOS 0.04 0.00 - 0.08 K/uL [facility] Granulocytes, immature 0.03 0.00 - 0.05 K/uL [facility] Blood 08/20/2017 12:5 1 PM EST 08/20/2017 12:53 PM EST us Timothy Aleman MD LAB BLOOD ORDERABLES Final Result [facility] [address] [place] [address] documented in this encounter Visit Diagnoses Diagnosis Diagnosis unknown- Primary documented in this encounter Care Teams Reconcilement Clerk Relationship Specialty Start Date End Date Jose Elias, Liss Chau MD [address] [place] [id number] PCP - General Internal Medicine 06/01/17 documented as of this encounter Additional Source Comments The information contained in this document represents components of the legal health record. It is not the complete legal health record.[facility]
--- OUTSIDE RECORDS SUMMARY | 2025-05-18 11:38 | XMS_ITS | Encounter Summary ---
Author Organization [facility] Address [address] [place] [id number] Phone Care Team Providers Care Customs Director Name Role Phone Liss Moctezuma MD Primary Care Provider [phone] Encounter Details Date Type Department Care Team (Late st Contact Info) Description 06/25/2017 Transcribe Orders [facility] [address] [place] [address] Timothy Aleman MD [address] [place] [address] Psychosis, unspecified psychosis type (Primary Dx) Social [...] EST) WBC 9.93 3.40 - 11.20 K/uL [facility] RBC 4.36 3.80 - 4.80 M/uL [facility] HGB 11.8(L) 12.0 - 15.0 g/dL [facility] HCT 36.6 36.0 - 46.0 % [facility] PLT 335 130 - 400 K/uL [facility] MCV 83.9 79.0 - 98.0 fL [facility] MCH 27.1 27.0 - 34.8 pg [facility] MCHC 32.2 31.5 - 36.0 g/dL [facility] RDW 15.0(H) 10.8 - 14.6 % [facility] MPV 10.9 9.4 - 12.4 fl [facility] NRBC 0.00 /100 WBCs [facility] ABSOLUTE NRBC 0.00 K/uL [facility] DIFF METHOD Auto [facility] NEUTS 58.2 45.30 - 77.70 % [facility] LYMPHS 36.8 12.30 - 39.70 % [facility] MONOS 4.3 4.10 - 12.80 % [facility] EOS 0.0 0 - 7.2 % [facility] BASOS 0.3 0 - 2.80 % [facility] Granulocytes, immature (%) 0.4 0.0 - 0.9 % [facility] ABSOLUTE NEUTS 5.78 1.40 - 7.70 K/uL [facility] ABSOLUTE LYMPHS 3.65(H) 0.60 - 3.20 K/uL [facility] ABSOLUTE MONOS 0.43 0.11 - 0.59 K/uL [facility] ABSOLUTE EOS 0.00(L) 0.01 - 0.50 K/uL [facility] ABSOLUTE BASOS 0.03 0.00 - 0.08 K/uL [facility] Granulocytes, immature 0.04 0.00 - 0.05 K/uL [facility] Blood 06/25/2017 12:0 5 PM EST 06/25/2017 12:07 PM EST Timothy Aleman MD LAB BLOOD ORDERABLES Final Result Performing Organization Address City/State/[facility] Co de Phone Number [address] [phone] documented in this encounter Visit Diagnoses Diagnosis Psychosis, unspecified psychosis type- Primary documented in this encounter Care Teams Customs Director Relationship Specialty Start Date End Date Liss Moctezuma MD [address] [place] [phone] PCP - General Internal Medicine 06/01/17 documented as of this encounter Additional Source Comments The information contained in this document represents components of the legal health record. It is not the complete legal health record.[facility]
--- OUTSIDE RECORDS SUMMARY | 2025-05-18 11:38 | XMS_ITS | Encounter Summary ---
Author Organization [facility] Address [address] [place] [address] Phone Care Team Providers Care Assembler Body Name Role Phone Liss Moctezuma MD Primary Care Provider [phone] Encounter Details Date Type Department Care Team (Late st Contact Info) Description 12/26/2021 Ancillary Orders [facility],Outside Imaging [address] [place] [address] System, Provider Not In, [place] [address] Social History Tobacco Use Types Packs/Day Years [...] on filedocumented in this encounter Care Teams Assembler Body Relationship Specialty Start Date End Date Liss Moctezuma MD [address] [place] [phone] PCP - General Internal Medicine 06/01/17 documented as of this encounter Additional Source Comments The information contained in this document represents components of the legal health record. It is not the complete legal health record.[facility]
--- OUTSIDE RECORDS SUMMARY | 2025-05-18 11:38 | XMS_ITS | Encounter Summary ---
Author Organization [facility] Address [address] [place] [phone] Phone Care Team Providers Care Tele Rn Name Role Phone Liss Moctezuma MD Primary Care Provider [phone] Encounter Details Date Type Department Care Team (Late st Contact Info) Description 07/23/2017 Transcribe Orders [facility] [address] [place] [address] Timothy Aleman MD [address] [place] [address] History of regular medication use (Primary Dx) [...] EST) WBC 9.24 3.40 - 11.20 K/uL [facility] RBC 4.38 3.80 - 4.80 M/uL [facility] HGB 11.8(L) 12.0 - 15.0 g/dL [facility] HCT 37.1 36.0 - 46.0 % [facility] PLT 340 130 - 400 K/uL [facility] MCV 84.7 79.0 - 98.0 fL [facility] MCH 26.9(L) 27.0 - 34.8 pg [facility] MCHC 31.8 31.5 - 36.0 g/dL [facility] RDW 15.8(H) 10.8 - 14.6 % [facility] MPV 10.8 9.4 - 12.4 fl [facility] NRBC 0.00 /100 WBCs [facility] ABSOLUTE NRBC 0.00 K/uL [facility] DIFF METHOD Auto [facility] NEUTS 59.2 45.30 - 77.70 % [facility] LYMPHS 36.3 12.30 - 39.70 % [facility] MONOS 3.9(L) 4.10 - 12.80 % [facility] EOS 0.0 0 - 7.2 % [facility] BASOS 0.3 0 - 2.80 % [facility] Granulocytes, immature (%) 0.3 0.0 - 0.9 % [facility] ABSOLUTE NEUTS 5.47 1.40 - 7.70 K/uL [facility] ABSOLUTE LYMPHS 3.35(H) 0.60 - 3.20 K/uL [facility] ABSOLUTE MONOS 0.36 0.11 - 0.59 K/uL [facility] ABSOLUTE EOS 0.00(L) 0.01 - 0.50 K/uL [facility] ABSOLUTE BASOS 0.03 0.00 - 0.08 K/uL [facility] Granulocytes, immature 0.03 0.00 - 0.05 K/uL [facility] Blood 07/23/2017 10:2 5 AM EST 07/23/2017 10:26 AM EST us Timothy Aleman MD LAB BLOOD ORDERABLES Final Result Performing Organization Address City/State/[facility] Co de Phone Number [facility] [address] [place] [address] documented in this encounter Visit Diagnoses Diagnosis History of regular medication use- Primary documented in this encounter Care Teams Tele Rn Relationship Specialty Start Date End Date Liss Moctezuma MD [address] [place] [phone] PCP - General Internal Medicine 06/01/17 documented as of this encounter Additional Source Comments The information contained in this document represents components of the legal health record. It is not the complete legal health record.[facility]
--- OUTSIDE RECORDS SUMMARY | 2025-05-18 11:38 | XMS_ITS | Encounter Summary ---
Author Organization [facility] Address [address] [place] [address] Phone Care Team Providers Care Slab Inspector Name Role Phone Liss Mcotezuma MD Primary Care Provider [phone] Encounter Details Date Type Department Care Team (Late st Contact Info) Description 12/26/2021 Ancillary Orders [facility],Outside Imaging [address] [place], [place] [id number] System, Provider Not In, [place] [address] Social History Tobacco Use Types Packs/Day Years [...] on filedocumented in this encounter Care Teams Slab Inspector Relationship Specialty Start Date End Date Liss Moctezuma MD [address] [place] [address] PCP - General Internal Medicine 06/01/17 documented as of this encounter Additional Source Comments The information contained in this document represents components of the legal health record. It is not the complete legal health record.[facility]
--- OUTSIDE RECORDS SUMMARY | 2025-05-18 11:38 | XMS_ITS | Encounter Summary ---
Author Organization [facility] Address [address] [place] [address] Phone Care Team Providers Care Service Unit Operator Name Role Phone Liss Moctezuma MD Primary Care Provider [phone] Encounter Details Date Type Department Care Team (Late st Contact Info) Description 12/26/2021 Ancillary Orders [facility],Outside Imaging [address] [place], [place] [id number] System, Provider [place] In, [place] [address] Social History Tobacco Use Types Packs/Day Years [...] on filedocumented in this encounter Care Teams Service Unit Operator Relationship Specialty Start Date End Date Liss Moctezuma MD [address] [place] [address] PCP - General Internal Medicine 06/01/17 documented as of this encounter Additional Source Comments The information contained in this document represents components of the legal health record. It is not the complete legal health record.[facility]
== END 2025-05-18 10:00 | disposition home or self-care (01) ==
LOC: HO.MAMMO 09:59
PROVIDERS: PCP Internal Medicine; Visit Provider Internal Medicine
DX: Z12.31 Encounter for screening mammogram for malignant neoplasm of breast (principal)
CPT/HCPCS: 77063; 77067

== ENCOUNTER → 2025-05-18 10:00 | Outpatient (BNV) | payer MEDICARE, MEDICAID, SELFPAY | PROVIDERS: PCP Internal Medicine; Visit Provider Radiology Body Imaging | DX: Z12.31 Encounter for screening mammogram for malignant neoplasm of breast (principal) | CPT/HCPCS: 77063; 77067 ==

== ENCOUNTER 2025-05-25 08:41 | Outpatient (AMB) | payer MEDICARE, MEDICAID, SELFPAY ==
--- NOTE | 2025-05-25 08:50 | MHC.PC.OV ---
Vital Signs 05/25/25 08:54 Height 5 ft 2 in Weight 206 lb BMI 37.7 BP 124/82 Blood Pressure Location Lt brachial Position Sitting Pulse 105 H Pulse Source Pulse Oximeter Temp 97.3 F Temp Source Temporal Artery Scan Pulse Oximetry (%) 95 Oxygen Delivery Method Room Air Intake Visit Reasons: DM Allergies lisinopril (LISINOPRIL) Allergy (Unknown, Verified 05/25/25 08:57) SWOLLEN LIPS, angioedema, swelling Tobacco use date assessed: 05/25/25 Dental Screening Dental Screen Date: 05/25/25 Did you have a dental visit in the last 12 months?: Yes Did you have a dental problem in the last 6 months where you did not have access to dental care?: No Was dental information given to patient?: Patient has dentist ON LICENSE OF [facility] Medical History Anemia Tachycardia Overweight (BMI 25.0-29.9) Microangiopathy Left leg paresthesias COVID-19 virus infection Schizoaffective disorder Colon cancer screening Breast cancer Arthritis Depression Hiatal hernia Hearing loss Facial paralysis Schizophrenia Obesity Iron deficiency anemia Hypertension Hypercholesterolemia GERD (gastroesophageal reflux disease) Type 2 diabetes mellitus with hyperglycemia Surgical History History of removal of Port-a-Cath History of lumpectomy of right breast Hemiparesis History of eye surgery History of placement of ear tubes Family History Father Medical history unknown Mother Medical history unknown Social History Household Members: Significant Other Housing: Condominium Are you a primary career development coordinator/teacher to a significant other at home: No Do you presently have visiting nurse or other home services: Yes Alcohol intake: never Patient Tobacco Use Status: Never used Tobacco Tobacco use type: Cigarette e-Cigarette/Vaping Use: Never Used Second Hand Smoke Exposure: No Advance Directives Date on File: 06/24/21 service: No Current occupational status: unemployed Sexual orientation: Lesbian/Reyes/Homosexual Cognitive needs: No Hearing needs: Yes (hearing aides) Vision needs: Yes (glasses) Female Reproductive History Menstrual Age of Menarche: 13 Questionnaire PHQ-9 Over the last 2 weeks, how often have you been bothered by any of the following problems? 1. Little interest or pleasure in doing things: several days 2. Feeling down, depressed, or hopeless: several days 3. Trouble falling or staying asleep, or sleeping too much: more than half the days 4. Feeling tired or having little energy: several days 5. Poor appetite or overeating: not at all 6. Feeling bad about yourself - or that you are a failure or have let yourself or your family down: several days 7. Trouble concentrating on things, such as reading the newspaper or watching television: not at all 8. Moving or speaking so slowly that other people could have noticed. Or the opposite - being so fidgety or restless that you have been moving around a lot more than usual: not at all 9. Thoughts that you would be better off or of hurting yourself in some way: not at all Total score: 6 Depression Screening Interpretation: Positive Depression Screening Done: Yes Source: Developed by Drs. Baldev Floyd, Елена Wolff, Sina Reyes and colleagues, with an educational patti from [employer]. Thrive Questionnaire Date Thrive assessed: 01/12/25 I am a: Patient What is your living situation today?: I have a steady place to live Within the past 12 months, did the food you bought not last and you didn't have the money to get more?: Never true Within the past 12 months, did you worry whether your food would run out before you got money to buy more?: Never true Do you have trouble paying for medicines?: No Do you have trouble getting transportation to medical appointments?: No Do you have trouble paying your heating and electricity bill?: No Do you have trouble taking care of your child, family member or friend?: No Do you have trouble with day-to-day activities such as bathing, preparing meals, shopping, managing finances, etc.?: No Are you currently unemployed and looking for a job?: No Are you interested in more education?: No Please select the resources that you would like help with: None Currently or been in a relationship where the following occur: No concerns reported THRIVE Score: 0 AUDIT C Alcohol Use Questionnaire (AUDIT-C) 1. How often do you have a drink containing alcohol?: Never 3. How often do you have six or more drinks on one occasion?: Never Total Score: 0 SPEEDY-7 AMB Questionnaire SPEEDY-7 Date SPEEDY - 7 assessed: 10/06/24 Feeling nervous, anxious, or on edge: 1 = Several days Not being able to stop or control worryin = Several days Worrying too much about different things: 1 = Several days Trouble relaxin = Several days Being so restless that it is hard to sit still: 1 = Several days Becoming easily annoyed or irritable: 1 = Several days Feeling afraid as if something awful might happen: 1 = Several days Total SPEEDY-7 score (0-4 normal; 5-9 mild; 10-14 moderate; 15-21 severe): 7 Source: Developed by Drs. Baldev Floyd, Елена Wolff, Sina Reyes and colleagues, with an educational patti from [employer]. Physical exam (Primary Care) Vital Signs: Last Vital Signs Temp 97.3 F 05/25/25 08:54 Pulse 105 H 05/25/25 08:54 BP 124/82 05/25/25 08:54 Pulse Ox 95 05/25/25 08:54 Oxygen Delivery Method Room Air 05/25/25 08:54 BMI result Body Mass Index 37.7 Tobacco/Smoking Status: Tobacco use Status Tobacco use date assessed 05/25/25 05/25/25 08:58 Patient Tobacco Use Status Never used Tobacco 05/25/25 08:52 Tobacco use type Cigarette 05/25/25 08:52 e-Cigarette/Vaping Use Never Used 05/25/25 08:52 PHQ-9: PHQ-9 Score PHQ-9: Total score 6 05/25/25 08:58 Depression Screening Interpretation: Positive Thrive Assessment: Date of Thrive Assessment Date Thrive assessed 01/12/25 05/25/25 08:52 Currently or been in a relationship where the following occur: No concerns reported Const General: alert; No acute distress Eyes Conjunctivae: conjunctivae normal Resp Auscultation: clear to auscultation bilaterally Cardio Rate: regular rate Rhythm: regular rhythm GI Inspection: Yes normal to inspection Extrem General: Yes normal to inspection and No edema Results AMB Hemoglobin A1c AMB Hemoglobin A1c 6.6 % Last Edit by Melody Rueda CMA on 05/25/25 09:04 Coding Level of Care Code Est Pt Level 4 (21419) Complex EM visit Add On G2211 Diagnoses Type 2 diabetes mellitus with hyperglycemia, without long-term current use of insulin E11.65 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911 Peripheral polyneuropathy G62.9 Peripheral neuropathy type: polyneuropathy, unspecified Schizoaffective disorder, unspecified type F25.9 Schizoaffective disorder type: unspecified Assessment & Plan Assessment & Plan (1) Type 2 diabetes mellitus with hyperglycemia: Comment: Dr. Sanz Code(s): E11.65 - Type 2 diabetes mellitus with hyperglycemia Category: Medical Qualifiers: Diabetes mellitus assisted insulin use: without assisted use Qualified Code(s): E11.65 - Type 2 diabetes mellitus with hyperglycemia Plan: Decrease the amount of carbohydrate intake, pasta, bread, rice and potatoes are all sugar and that is aside from all the sweet stuff, remember that fruits are good but they are Sweet also. Hemoglobin A1c goal of less than 6.5. Patient is on Jardiance 25 mg once a day metformin a 1000 mg twice a day and placed on Mounjaro. (2) Hypertension: Code(s): I10 - Essential (primary) hypertension Category: Medical Qualifiers: Hypertension type: essential hypertension Qualified Code(s): I10 - Essential (primary) hypertension Plan: Continue with blood pressure medication. Decrease salt intake and exercise takes metoprolol 25 mg once a day losartan 25 mg once a day (3) Hypercholesterolemia: Code(s): E78.00 - Pure hypercholesterolemia, unspecified Category: Medical Plan: Avoid fried foods, chicken skin, eggs, butter margarine, pastries and meat. Be it pork or beef they have a lot of cholesterol LDL goal of less than 100 September 2024 last blood work on simvastatin 10 mg once a day (4) Obesity: Comment: Pt also has T2DM Code(s): E66.9 - Obesity, unspecified Category: Medical Qualifiers: Obesity type: due to excess calories Obesity classification: adult class 2 (BMI 35 - 39.9) Serious obesity comorbidity presence: with serious comorbidity Body mass index: BMI 38.0-38.9 Qualified Code(s): E66.01 - Morbid (severe) obesity due to excess calories; Z68.38 - Body mass index [BMI] 38.0-38.9, adult Plan: Diet and exercise (5) GERD (gastroesophageal reflux disease): Code(s): K21.9 - Gastro-esophageal reflux disease without esophagitis Category: Medical Qualifiers: Esophagitis presence: without esophagitis Qualified Code(s): K21.9 - Gastro-esophageal reflux disease without esophagitis Plan: Avoid the foods that causes that usually spicy foods, tomato products, juices, coffee, soda and foods that your sensitive to. After eating do not lie down, allow 3-4 hours before in lie down. And keep the head of bed above 30 degrees to avoid the acid from going up. (6) Invasive ductal carcinoma of right breast: Comment: Lumpectomy May 2021 Code(s): C50.911 - Malignant neoplasm of unspecified site of right female breast Category: Medical Plan: Patient follows up with Hematology-Oncology and has been placed on Lupron and letrozole (7) Peripheral neuropathy: Code(s): G62.9 - Polyneuropathy, unspecified Category: Medical Qualifiers: Peripheral neuropathy type: polyneuropathy, unspecified Qualified Code(s): G62.9 - Polyneuropathy, unspecified Plan: Patient has been seeing Neurology adjusted pregabalin dose (8) Schizoaffective disorder: Comment: [facility] to [facility] (09/2022) Code(s): F25.9 - Schizoaffective disorder, unspecified Category: Medical Qualifiers: Schizoaffective disorder type: unspecified Qualified Code(s): F25.9 - Schizoaffective disorder, unspecified Plan: Continue with counseling and therapy Plan History of Present Illness The patient is a 54-year-old obese female presenting for a follow-up visit. Her past medical history is significant for diabetes mellitus, GERD, hypertension, hypercholesterolemia, and schizoaffective disorder. She has a history of right breast cancer diagnosed in 2020, which was treated with a lumpectomy. The patient continues to follow up with hematology-oncology and is on letrozole. She also has a history of a tubular adenoma of the colon, with her last colonoscopy performed in December 2022. In April, the patient presented to an urgent care center with a cough and runny nose. A respiratory panel was positive for rhinovirus, and she was prescribed cough medication. The patient was recently seen by neurology for peripheral neuropathy and was prescribed Tixnervive and pregabalin. Her last complete blood work in January was normal with no anemia, and she had normal electrolytes and renal function. Her hemoglobin A1c was 7.2 in December, and her last LDL cholesterol in September was 82. For health maintenance, her mammogram is up to date, and a bone density scan was performed in November 2022. Health Maintenance - Breast cancer screening: The patient has a history of right breast cancer and is on letrozole and Lupron. - Her mammogram is up to date. - Osteoporosis screening: A bone density scan was performed in November 2022. - Colorectal cancer screening: Her last colonoscopy in December 2022 showed a tubular adenoma. - Diabetes management: Hemoglobin A1c goal is less than 6.5; her last result in December was 7.2. - Hypercholesterolemia management: LDL goal is less than 100; her last result in September was 82. - Healthy lifestyle: Recommended diet and exercise. Social History - Exercise: Advised on exercise. - Diet: Advised on diet. Review of Systems - Respiratory: Reports recent history of cough and runny nose. - Neurological: Reports peripheral neuropathy. Physical Exam Results - Complete Blood Count (January): Normal, with no anemia. - Basic Metabolic Panel (January): Normal electrolytes and good renal function. - Hemoglobin A1c (December): 7.2. - Lipid Panel (September): LDL was 82. - Respiratory Viral Panel (April): Positive for rhinovirus. - Colonoscopy (December 2022): Revealed tubular adenoma. - Bone Density Scan (November 2022): No abnormalities reported. - Mammogram: Up to date. Plan Patient was informed and verbally consented to the use of an ambient scribe for clinic note documentation during this visit. 1. Diabetes Mellitus The patient's hemoglobin A1c was 7.2 in December, with a goal of less than 6.5. She is currently on Jardiance 25 mg once a day, metformin 1000 mg twice a day, and has been placed on Mounjaro. 2. Hypertension Continue metoprolol 25 mg once a day and losartan 25 mg once a day. 3. Hypercholesterolemia The LDL goal is less than 100, and her last LDL was 82. She will continue simvastatin 10 mg once a day, along with diet and exercise. 4. Gastroesophageal Reflux Disease Continue current management for reflux. 5. History Of Breast Cancer The patient will continue to follow up with hematology-oncology. She has been placed on Lupron and letrozole. 6. Peripheral Neuropathy The patient has been seeing neurology, and her pregabalin dose was adjusted. She was advised to take pregabalin 50 mg in the morning, 50 mg in the afternoon, and 100 mg at bedtime. 7. Schizoaffective Disorder Continue with counseling and therapy. Discussion Notes I reviewed the patient's chronic conditions and management plan. For her diabetes, we discussed that the goal for her hemoglobin A1c is less than 6.5, and she will continue on Jardiance, metformin, and Mounjaro. For her cholesterol, the LDL goal is less than 100, and she will continue simvastatin along with diet and exercise. We also discussed her history of breast cancer and the plan to continue follow-up with hematology-oncology and her medication regimen of Lupron and letrozole. Her peripheral neuropathy management was reviewed, noting the recent dose adjustment of pregabalin by her neurologist. We confirmed her hypertension regimen of metoprolol and losartan, and the importance of continuing counseling for her schizoaffective disorder. Patient Instructions - Continue taking your medications for diabetes (Jardiance, metformin, Mounjaro), high blood pressure (metoprolol, losartan), and high cholesterol (simvastatin) as prescribed. - For your nerve pain, take pregabalin as advised: 50 mg in the morning, 50 mg in the afternoon, and 100 mg at bedtime. - Continue your treatment for breast cancer, including Lupron and letrozole, and keep your follow-up appointments with your cancer doctor. - Remember to follow the diet and exercise plan we discussed. - Continue with your scheduled counseling and therapy sessions. - Keep your follow-up appointments with your neurology specialist for your nerve pain. Orders: Orders AMB Hemoglobin A1c Today Z13.9 - Encounter for screening, unspecified Medications: Changed From tirzepatide (Mounjaro) for 4 weeks 2.5 mg (0.5 mL) subcut QWEEK 2 mL 3RF E11.65 - Type 2 diabetes mellitus with hyperglycemia To tirzepatide for 4 weeks 5 mg (0.5 mL) subcut QWEEK 2 mL 3RF E11.65 - Type 2 diabetes mellitus with hyperglycemia
[2025-05-25 08:54] VITALS: BP 124/82; PULSE 105; TEMP 36.3; O2SAT 95; BMI 37.7
--- OUTSIDE RECORDS SUMMARY | 2025-05-25 09:30 | XMS_ITS | Encounter Summary ---
Author Organization [facility] Address [address] [place] [address] Phone Care Team Providers Care Relocation Associate Name Role Phone Liss Moctezuma MD Primary Care Provider [phone] Encounter Details Date Type Department Care Team (Late st Contact Info) Description 12/26/2021 Ancillary Orders [facility],Outside Imaging [address] [place] [address] System, Provider Not In, [place] [address] Social History Tobacco Use Types Packs/Day Years [...] on filedocumented in this encounter Care Teams Relocation Associate Relationship Specialty Start Date End Date Liss Moctezuma MD [address] [place] [address] PCP - General Internal Medicine 06/01/17 documented as of this encounter Additional Source Comments The information contained in this document represents components of the legal health record. It is not the complete legal health record.[facility]
--- OUTSIDE RECORDS SUMMARY | 2025-05-25 09:30 | XMS_ITS | Clinical Summary ---
Author Organization [facility] Address [address] [place] [address] Phone Care Team Providers Care Photocopying Equipment Repairer Name Role Phone Liss Moctezuma MD Primary Care Provider [phone] Allergies Active Allergy Reactions Criticality Noted Date [...] Active ferrous sulfate 324 mg (65 mg [place] iron) TbEC Take 324 mg by mouth [...] EST) WBC 9.66 4.00 - 11.00 K/uL [facility] RBC 4.75 3.72 - 5.30 M/uL [facility] HGB 14.6 10.6 - 15.5 g/dL [facility] HCT 43.9 32.0 - 45.0 % [facility] PLT 309 140 - 430 K/uL [facility] MCV 92.4 78.0 - 97.0 fL [facility] MCH 30.7 25.0 - 33.0 pg [facility] MCHC 33.3 32.0 - 36.0 g/dL [facility] RDW 14.6 11.0 - 16.0 % [facility] MPV 10.7 8.4 - 12.8 fl [facility] NRBC 0.00 0 /100 WBCs [facility] ABSOLUTE NRBC 0.00 0 K/uL [facility] DIFF METHOD Auto [facility] NEUTS 67.4 43.0 - 75.0 % [facility] LYMPHS 27.2 18.2 - 47.4 % [facility] MONOS 4.8 4.00 - 11.00 % [facility] EOS 0.0 0.0 - 8.0 % [facility] BASOS 0.4 0.0 - 2.0 % [facility] Granulocytes, immature (%) 0.2 0.0 - 0.9 % [facility] ABSOLUTE NEUTS 6.51 1.80 - 7.70 K/uL [facility] ABSOLUTE LYMPHS 2.63 1.00 - 3.10 K/uL [facility] ABSOLUTE MONOS 0.46 0.20 - 0.80 K/uL [facility] ABSOLUTE EOS 0.00 0.00 - 0.80 K/uL [facility] ABSOLUTE BASOS 0.04 0.00 - 0.09 K/uL [facility] Granulocytes, immature 0.02 0.00 - 0.05 K/uL [facility] Blood 07/18/2021 12:1 4 PM EST 07/18/2021 12:18 PM EST us Paris Bruce MD LAB BLOOD ORDERABLES Final Resu lt [facility] [address] [place] [address] * Mammogram Outside (No Interpretation) (06/24/2021 12:00 AM EST) Narrative SYSTEMGENERATED, DOCUMENTATION - 12/26/2021 6:59 AM EDT This study is for PACS storage only and not for interpretation. us Provider Not In System PhD IMG OUTSIDE IMAGING W /OUT INTERPRETATION Final Result from Last 3 Months or Most Recently Relevant to Health Maintenance Insurance MEDICARE PART A & B [facility] MEDICARE PART A & B HEALTH MEDICARE PART A & B [id number] [place], [place] [address]HEALTH MEDICARE PART A & B Member Subscriber Plan / Payer (Ef fective 2004-Present) Name:Sabra Deutsch Member ID:[id number] Relation to Subscriber:Self Name:Sabra Deutsch Subscriber ID:[id number] Payer ID:[id number] Group ID:Not on file Type:Medicare Address: [employer] [address] [place] B [employer] MEDICARE PART A & B Member Subscriber Plan / Payer ( fective 2004-) Name:Sabra Deutsch Member ID:[id number] Relation to Subscriber:Self Name:Sabra Deutsch Subscriber ID:[id number] Payer ID:[id number] Group ID:Not on file Type:Medicare Address: [employer] [address] [place] [id number] [place] A & [facility] [place] Care Teams Photocopying Equipment Repairer Relationship Specialty Start Date End Date Liss Moctezuma MD [address] [place] [id number] PCP - General Internal Medicine 06/01/17 Additional Source Comments The information contained in this document represents components of the legal health record. It is not the complete legal health record.[facility]
--- OUTSIDE RECORDS SUMMARY | 2025-05-25 09:31 | XMS_ITS | Encounter Summary ---
Author Organization [facility] Address [address] [place] [address] Phone Care Team Providers Care Boom Tender Name Role Phone Liss Moctezuma MD Primary Care Provider [phone] Encounter Details Date Type Department Care Team (Late st Contact Info) Description 12/26/2021 Ancillary Orders [facility],Outside Imaging [address] [place] [address] System, Provider [place] In, [place] [address] Social History Tobacco Use Types Packs/Day Years [...] on filedocumented in this encounter Care Teams Boom Tender Relationship Specialty Start Date End Date Liss Moctezuma MD [address] [place] [address] PCP - General Internal Medicine 06/01/17 documented as of this encounter Additional Source Comments The information contained in this document represents components of the legal health record. It is not the complete legal health record.[facility]
--- OUTSIDE RECORDS SUMMARY | 2025-05-25 09:31 | XMS_ITS | Encounter Summary ---
Author Organization [facility] Address [address] [place] [address] Phone Care Team Providers Care Tangled Yarn Spool Straightener Name Role Phone Liss Moctezuma MD Primary Care Provider [phone] Encounter Details Date Type Department Care Team (Late st Contact Info) Description 12/26/2021 Ancillary Orders [facility],Outside Imaging [address] [place] [address] System, Provider Not In, [place] [address] Social History Tobacco Use Types Packs/Day Years [...] on filedocumented in this encounter Care Teams Tangled Yarn Spool Straightener Relationship Specialty Start Date End Date Liss Moctezuma MD [address] [place] [address] PCP - General Internal Medicine 06/01/17 documented as of this encounter Additional Source Comments The information contained in this document represents components of the legal health record. It is not the complete legal health record.[facility]
--- OUTSIDE RECORDS SUMMARY | 2025-05-25 09:31 | XMS_ITS | Encounter Summary ---
Author Organization [facility] Address [address] [place] [address] Phone Care Team Providers Care Javascript Developer Name Role Phone Liss Moctezuma MD Primary Care Provider [phone] Encounter Details Date Type Department Care Team (Late st Contact Info) Description 12/26/2021 Ancillary Orders [facility],Outside Imaging [address] [place] [address] System, Provider [place] In, [place] [address] Social History Tobacco Use Types Packs/Day Years [...] on filedocumented in this encounter Care Teams Javascript Developer Relationship Specialty Start Date End Date Liss Moctezuma MD [address] [place] [phone] PCP - General Internal Medicine 06/01/17 documented as of this encounter Additional Source Comments The information contained in this document represents components of the legal health record. It is not the complete legal health record.[facility]
--- OUTSIDE RECORDS SUMMARY | 2025-05-25 09:31 | XMS_ITS | Encounter Summary ---
Author Organization [facility] Address [address] [place] [address] Phone Care Team Providers Care Retail Client Manager Name Role Phone Liss Moctezuma MD Primary Care Provider [phone] Encounter Details Date Type Department Care Team (Late st Contact Info) Description 06/01/2017 Transcribe Orders [facility] [address] [place] [address] Timothy Aleman MD [address] [place] [address] Atypical psychosis (Primary Dx) Social History Tobacco [...] EST) WBC 9.66 3.40 - 11.20 K/uL [facility] RBC 4.20 3.80 - 4.80 M/uL [facility] HGB 11.7(L) 12.0 - 15.0 g/dL [facility] HCT 35.7(L) 36.0 - 46.0 % [facility] PLT 340 130 - 400 K/uL [facility] MCV 85.0 79.0 - 98.0 fL [facility] MCH 27.9 27.0 - 34.8 pg [facility] MCHC 32.8 31.5 - 36.0 g/dL [facility] RDW 15.0(H) 10.8 - 14.6 % [facility] MPV 11.2 9.4 - 12.4 fl [facility] NRBC 0.00 /100 WBCs [facility] ABSOLUTE NRBC 0.00 K/uL [facility] DIFF METHOD Auto [facility] NEUTS 70.4 45.30 - 77.70 % [facility] LYMPHS 22.0 12.30 - 39.70 % [facility] MONOS 5.9 4.10 - 12.80 % [facility] EOS 0.0 0 - 7.2 % [facility] BASOS 0.4 0 - 2.80 % [facility] Granulocytes, immature (%) 1.3(H) 0.0 - 0.9 % [facility] ABSOLUTE NEUTS 6.79 1.40 - 7.70 K/uL [facility] ABSOLUTE LYMPHS 2.13 0.60 - 3.20 K/uL [facility] ABSOLUTE MONOS 0.57 0.11 - 0.59 K/uL [facility] ABSOLUTE EOS 0.00(L) 0.01 - 0.50 K/uL [facility] ABSOLUTE BASOS 0.04 0.00 - 0.08 K/uL [facility] Granulocytes, immature 0.13(H) 0.00 - 0.05 K/uL [facility] Blood 06/01/2017 10:1 9 AM EST 06/01/2017 10:21 AM EST us Timothy Aleman MD LAB BLOOD ORDERABLES Edited Result - Final [facility] [address] [place] [address] documented in this encounter Visit Diagnoses Diagnosis Atypical psychosis- Primary Unspecified psychosis documented in this encounter Care Teams Retail Client Manager Relationship Specialty Start Date End Date Liss Moctezuma MD [address] [place] [phone] PCP - General Internal Medicine 06/01/17 documented as of this encounter Additional Source Comments The information contained in this document represents components of the legal health record. It is not the complete legal health record.[facility]
--- OUTSIDE RECORDS SUMMARY | 2025-05-25 09:31 | XMS_ITS | Encounter Summary ---
Author Organization [facility] Address [address] [place] [address] Phone Care Team Providers Care Store Stock Help Name Role Phone Liss Moctezuma MD Primary Care Provider [phone] Encounter Details Date Type Department Care Team (Late st Contact Info) Description 12/26/2021 Ancillary Orders [facility],Outside Imaging [address] [place] [address] System, Provider [place] In, [place] [address] Social History Tobacco Use Types Packs/Day Years [...] on filedocumented in this encounter Care Teams Store Stock Help Relationship Specialty Start Date End Date Liss Moctezuma MD [address] [place] [address] PCP - General Internal Medicine 06/01/17 documented as of this encounter Additional Source Comments The information contained in this document represents components of the legal health record. It is not the complete legal health record.[facility]
--- OUTSIDE RECORDS SUMMARY | 2025-05-25 09:31 | XMS_ITS | Encounter Summary ---
Author Organization [facility] Address [address] [place] [address] Phone Care Team Providers Care Family Practice Doctor Name Role Phone Liss Moctezuma MD Primary Care Provider Encounter Details Date Type Department Care Team (Late st Contact Info) Description 12/26/2021 Ancillary Orders [facility],Outside Imaging [address] [place] [address] System, Provider [place] In, [place] [address] Social History Tobacco Use Types Packs/Day Years [...] on filedocumented in this encounter Care Teams Family Practice Doctor Relationship Specialty Start Date End Date Liss Moctezuma MD [address] [place] [address] PCP - General Internal Medicine 06/01/17 documented as of this encounter Additional Source Comments The information contained in this document represents components of the legal health record. It is not the complete legal health record.[facility]
--- OUTSIDE RECORDS SUMMARY | 2025-05-25 09:32 | XMS_ITS | Encounter Summary ---
Author Organization [facility] Address [address] [place] [address] Phone Care Team Providers Care Nursing Assoc Name Role Phone Liss Moctezuma MD Primary Care Provider [phone] Encounter Details Date Type Department Care Team (Late st Contact Info) Description 12/26/2021 Ancillary Orders [facility],Outside Imaging [address] [place] [address] System, Provider [place] In, [place] [address] Social History Tobacco Use Types Packs/Day Years [...] on filedocumented in this encounter Care Teams Nursing Assoc Relationship Specialty Start Date End Date Liss Moctezuma MD [address] [place] [address] PCP - General Internal Medicine 06/01/17 documented as of this encounter Additional Source Comments The information contained in this document represents components of the legal health record. It is not the complete legal health record.[facility]
--- OUTSIDE RECORDS SUMMARY | 2025-05-25 09:32 | XMS_ITS | Encounter Summary ---
Author Organization [facility] Address [address] [place] [address] Phone Care Team Providers Care Information Technology Internship Name Role Phone Liss Moctezuma MD Primary Care Provider [phone] Encounter Details Date Type Department Care Team (Late st Contact Info) Description 06/25/2017 Transcribe Orders [facility] [address] [place] [address] Timothy Aleman MD [address] [place] [address] Psychosis, unspecified psychosis type (Primary Dx) Social [...] EST) WBC 9.93 3.40 - 11.20 K/uL [facility] RBC 4.36 3.80 - 4.80 M/uL [facility] HGB 11.8(L) 12.0 - 15.0 g/dL [facility] HCT 36.6 36.0 - 46.0 % [facility] PLT 335 130 - 400 K/uL [facility] MCV 83.9 79.0 - 98.0 fL [facility] MCH 27.1 27.0 - 34.8 pg [facility] MCHC 32.2 31.5 - 36.0 g/dL [facility] RDW 15.0(H) 10.8 - 14.6 % [facility] MPV 10.9 9.4 - 12.4 fl [facility] NRBC 0.00 /100 WBCs [facility] ABSOLUTE NRBC 0.00 K/uL [facility] DIFF METHOD Auto [facility] NEUTS 58.2 45.30 - 77.70 % [facility] LYMPHS 36.8 12.30 - 39.70 % [facility] MONOS 4.3 4.10 - 12.80 % [facility] EOS 0.0 0 - 7.2 % [facility] BASOS 0.3 0 - 2.80 % [facility] Granulocytes, immature (%) 0.4 0.0 - 0.9 % [facility] ABSOLUTE NEUTS 5.78 1.40 - 7.70 K/uL [facility] ABSOLUTE LYMPHS 3.65(H) 0.60 - 3.20 K/uL [facility] ABSOLUTE MONOS 0.43 0.11 - 0.59 K/uL [facility] ABSOLUTE EOS 0.00(L) 0.01 - 0.50 K/uL [facility] ABSOLUTE BASOS 0.03 0.00 - 0.08 K/uL [facility] Granulocytes, immature 0.04 0.00 - 0.05 K/uL [facility] Blood 06/25/2017 12:0 5 PM EST 06/25/2017 12:07 PM EST Timothy Aleman MD LAB BLOOD ORDERABLES Final Result Performing Organization Address City/State/[place] Co de Phone Number [address] [address] documented in this encounter Visit Diagnoses Diagnosis Psychosis, unspecified psychosis type- Primary documented in this encounter Care Teams Information Technology Internship Relationship Specialty Start Date End Date Liss Moctezuma MD [address] [place] [phone] PCP - General Internal Medicine 06/01/17 documented as of this encounter Additional Source Comments The information contained in this document represents components of the legal health record. It is not the complete legal health record.[facility]
--- OUTSIDE RECORDS SUMMARY | 2025-05-25 09:32 | XMS_ITS | Encounter Summary ---
Author Organization [facility] Address [address] [place] [address] Phone Care Team Providers Care Payable Manager Name Role Phone Liss Moctezuma MD Primary Care Provider [phone] Encounter Details Date Type Department Care Team (Late st Contact Info) Description 07/23/2017 Transcribe Orders [facility] [address] [place] [address] Timothy Aleman MD [address] [place] [address] History of regular medication use (Primary Dx) [...] EST) WBC 9.24 3.40 - 11.20 K/uL [facility] RBC 4.38 3.80 - 4.80 M/uL [facility] HGB 11.8(L) 12.0 - 15.0 g/dL [facility] HCT 37.1 36.0 - 46.0 % [facility] PLT 340 130 - 400 K/uL [facility] MCV 84.7 79.0 - 98.0 fL [facility] MCH 26.9(L) 27.0 - 34.8 pg [facility] MCHC 31.8 31.5 - 36.0 g/dL [facility] RDW 15.8(H) 10.8 - 14.6 % [facility] MPV 10.8 9.4 - 12.4 fl [facility] NRBC 0.00 /100 WBCs [facility] ABSOLUTE NRBC 0.00 K/uL [facility] DIFF METHOD Auto [facility] NEUTS 59.2 45.30 - 77.70 % [facility] LYMPHS 36.3 12.30 - 39.70 % [facility] MONOS 3.9(L) 4.10 - 12.80 % [facility] EOS 0.0 0 - 7.2 % [facility] BASOS 0.3 0 - 2.80 % [facility] Granulocytes, immature (%) 0.3 0.0 - 0.9 % [facility] ABSOLUTE NEUTS 5.47 1.40 - 7.70 K/uL [facility] ABSOLUTE LYMPHS 3.35(H) 0.60 - 3.20 K/uL [facility] ABSOLUTE MONOS 0.36 0.11 - 0.59 K/uL [facility] ABSOLUTE EOS 0.00(L) 0.01 - 0.50 K/uL [facility] ABSOLUTE BASOS 0.03 0.00 - 0.08 K/uL [facility] Granulocytes, immature 0.03 0.00 - 0.05 K/uL [facility] Blood 07/23/2017 10:2 5 AM EST 07/23/2017 10:26 AM EST us Timothy Aleman MD LAB BLOOD ORDERABLES Final Result Performing Organization Address City/State/[place] Co de Phone Number [facility] [address] [place] [address] documented in this encounter Visit Diagnoses Diagnosis History of regular medication use- Primary documented in this encounter Care Teams Payable Manager Relationship Specialty Start Date End Date Liss Moctezuma MD [address] [place] [address] PCP - General Internal Medicine 06/01/17 documented as of this encounter Additional Source Comments The information contained in this document represents components of the legal health record. It is not the complete legal health record.[facility]
--- OUTSIDE RECORDS SUMMARY | 2025-05-25 09:32 | XMS_ITS | Encounter Summary ---
Author Organization [facility] Address [address] [place] [phone] Phone Care Team Providers Care Master Ship Name Role Phone Liss Moctezuma MD Primary Care Provider [phone] Encounter Details Date Type Department Care Team (Late st Contact Info) Description 08/20/[address] [facility] [address] [place] [address] Timothy Aleman MD [address] [place] [address] Diagnosis unknown (Primary Dx) Social History Tobacco [...] EST) WBC 10.82 3.40 - 11.20 K/uL [facility] RBC 4.32 3.80 - 4.80 M/uL [facility] HGB 11.9(L) 12.0 - 15.0 g/dL [facility] HCT 36.9 36.0 - 46.0 % [facility] PLT 359 130 - 400 K/uL [facility] MCV 85.4 79.0 - 98.0 fL [facility] MCH 27.5 27.0 - 34.8 pg [facility] MCHC 32.2 31.5 - 36.0 g/dL [facility] RDW 16.3(H) 10.8 - 14.6 % [facility] MPV 10.8 9.4 - 12.4 fl [facility] NRBC 0.00 0.00 /100 WBCs [facility] ABSOLUTE NRBC 0.00 0.00 K/uL [facility] DIFF METHOD Auto [facility] NEUTS 55.9 45.30 - 77.70 % [facility] LYMPHS 38.7 12.30 - 39.70 % [facility] MONOS 4.8 4.10 - 12.80 % [facility] EOS 0.0 0 - 7.2 % [facility] BASOS 0.3 0 - 2.80 % [facility] Granulocytes, immature (%) 0.3 0.0 - 0.9 % [facility] ABSOLUTE NEUTS 6.05 1.40 - 7.70 K/uL [facility] ABSOLUTE LYMPHS 4.19(H) 0.60 - 3.20 K/uL [facility] ABSOLUTE MONOS 0.52 0.11 - 0.59 K/uL [facility] ABSOLUTE EOS 0.00(L) 0.01 - 0.50 K/uL [facility] ABSOLUTE BASOS 0.03 0.00 - 0.08 K/uL [facility] Granulocytes, immature 0.03 0.00 - 0.05 K/uL [facility] Blood 06/28/2018 4:16 PM EST 06/28/2018 4:18 PM EST Timothy Aleman MD LAB BLOOD ORDERABLES Final Result Performing Organization Address City/State/[facility] Co de Phone Number [address] [address] * (ABNORMAL) CBC and differential (05/31/2018 11:14 AM EST) WBC 12.21(H) 3.40 - 11.20 K/uL [facility] RBC 4.32 3.80 - 4.80 M/uL [facility] HGB 11.8(L) 12.0 - 15.0 g/dL [facility] HCT 36.6 36.0 - 46.0 % [facility] PLT 357 130 - 400 K/uL [facility] MCV 84.7 79.0 - 98.0 fL [facility] MCH 27.3 27.0 - 34.8 pg [facility] MCHC 32.2 31.5 - 36.0 g/dL [facility] RDW 16.0(H) 10.8 - 14.6 % [facility] MPV 10.6 9.4 - 12.4 fl [facility] NRBC 0.00 0.00 /100 WBCs [facility] ABSOLUTE NRBC 0.00 0.00 K/uL [facility] DIFF METHOD Auto [facility] NEUTS 67.7 45.30 - 77.70 % [facility] LYMPHS 28.3 12.30 - 39.70 % [facility] MONOS 3.4(L) 4.10 - 12.80 % [facility] EOS 0.0 0 - 7.2 % [facility] BASOS 0.2 0 - 2.80 % [facility] Granulocytes, immature (%) 0.4 0.0 - 0.9 % [facility] ABSOLUTE NEUTS 8.27(H) 1.40 - 7.70 K/uL [facility] ABSOLUTE LYMPHS 3.46(H) 0.60 - 3.20 K/uL [facility] ABSOLUTE MONOS 0.41 0.11 - 0.59 K/uL [facility] ABSOLUTE EOS 0.00(L) 0.01 - 0.50 K/uL [facility] ABSOLUTE BASOS 0.02 0.00 - 0.08 K/uL [facility] Granulocytes, immature 0.05 0.00 - 0.05 K/uL [facility] Blood 05/31/2018 11:1 4 AM EST 05/31/2018 11:16 AM EST Timothy Aleman MD LAB BLOOD ORDERABLES Final Result [facility] [address] [place] [address] * (ABNORMAL) CBC and differential (05/04/2018 1:10 PM EDT) WBC 10.44 3.40 - 11.20 K/uL [facility] RBC 4.39 3.80 - 4.80 M/uL [facility] HGB 12.0 12.0 - 15.0 g/dL [facility] HCT 36.8 36.0 - 46.0 % [facility] PLT 365 130 - 400 K/uL [facility] MCV 83.8 79.0 - 98.0 fL [facility] MCH 27.3 27.0 - 34.8 pg [facility] MCHC 32.6 31.5 - 36.0 g/dL [facility] RDW 15.6(H) 10.8 - 14.6 % [facility] MPV 10.6 9.4 - 12.4 fl [facility] NRBC 0.00 /100 WBCs [facility] ABSOLUTE NRBC 0.00 K/uL [facility] DIFF METHOD Auto [facility] NEUTS 55.1 45.30 - 77.70 % [facility] LYMPHS 39.6 12.30 - 39.70 % [facility] MONOS 4.7 4.10 - 12.80 % [facility] EOS 0.1 0 - 7.2 % [facility] BASOS 0.3 0 - 2.80 % [facility] Granulocytes, immature (%) 0.2 0.0 - 0.9 % [facility] ABSOLUTE NEUTS 5.76 1.40 - 7.70 K/uL [facility] ABSOLUTE LYMPHS 4.13(H) 0.60 - 3.20 K/uL [facility] ABSOLUTE MONOS 0.49 0.11 - 0.59 K/uL [facility] ABSOLUTE EOS 0.01 0.01 - 0.50 K/uL [facility] ABSOLUTE BASOS 0.03 0.00 - 0.08 K/uL [facility] Granulocytes, immature 0.02 0.00 - 0.05 K/uL [facility] Blood 05/04/2018 1:10 PM EDT 05/04/2018 1:13 PM EDT us Timothy Aleman MD LAB BLOOD ORDERABLES Final Result [facility] [address] [address] * (ABNORMAL) CBC and differential (04/09/2018 10:30 AM EDT) WBC 9.89 3.40 - 11.20 K/uL [facility] RBC 4.43 3.80 - 4.80 M/uL [facility] HGB 12.2 12.0 - 15.0 g/dL [facility] HCT 37.2 36.0 - 46.0 % [facility] PLT 366 130 - 400 K/uL [facility] MCV 84.0 79.0 - 98.0 fL [facility] MCH 27.5 27.0 - 34.8 pg [facility] MCHC 32.8 31.5 - 36.0 g/dL [facility] RDW 15.2(H) 10.8 - 14.6 % [facility] MPV 10.7 9.4 - 12.4 fl [facility] NRBC 0.00 /100 WBCs [facility] ABSOLUTE NRBC 0.00 K/uL [facility] DIFF METHOD Auto [facility] NEUTS 59.0 45.30 - 77.70 % [facility] LYMPHS 34.8 12.30 - 39.70 % [facility] MONOS 5.6 4.10 - 12.80 % [facility] EOS 0.0 0 - 7.2 % [facility] BASOS 0.3 0 - 2.80 % [facility] Granulocytes, immature (%) 0.3 0.0 - 0.9 % [facility] ABSOLUTE NEUTS 5.84 1.40 - 7.70 K/uL [facility] ABSOLUTE LYMPHS 3.44(H) 0.60 - 3.20 K/uL [facility] ABSOLUTE MONOS 0.55 0.11 - 0.59 K/uL [facility] ABSOLUTE EOS 0.00(L) 0.01 - 0.50 K/uL [facility] ABSOLUTE BASOS 0.03 0.00 - 0.08 K/uL [facility] Granulocytes, immature 0.03 0.00 - 0.05 K/uL [facility] Blood 04/09/2018 10:3 0 AM EDT 04/09/2018 10:33 AM EDT us Timothy Aleman MD LAB BLOOD ORDERABLES Final Result [facility] [address] [place] [address] * (ABNORMAL) CBC and differential (03/04/2018 2:36 PM EDT) WBC 11.50(H) 3.40 - 11.20 K/uL [facility] RBC 4.20 3.80 - 4.80 M/uL [facility] HGB 11.8(L) 12.0 - 15.0 g/dL [facility] HCT 35.6(L) 36.0 - 46.0 % [facility] PLT 347 130 - 400 K/uL [facility] MCV 84.8 79.0 - 98.0 fL [facility] MCH 28.1 27.0 - 34.8 pg [facility] MCHC 33.1 31.5 - 36.0 g/dL [facility] RDW 16.0(H) 10.8 - 14.6 % [facility] MPV 10.9 9.4 - 12.4 fl [facility] NRBC 0.00 /100 WBCs [facility] ABSOLUTE NRBC 0.00 K/uL [facility] DIFF METHOD Auto [facility] NEUTS 54.4 45.30 - 77.70 % [facility] LYMPHS 39.3 12.30 - 39.70 % [facility] MONOS 5.7 4.10 - 12.80 % [facility] EOS 0.0 0 - 7.2 % [facility] BASOS 0.3 0 - 2.80 % [facility] Granulocytes, immature (%) 0.3 0.0 - 0.9 % [facility] ABSOLUTE NEUTS 6.26 1.40 - 7.70 K/uL [facility] ABSOLUTE LYMPHS 4.52(H) 0.60 - 3.20 K/uL [facility] ABSOLUTE MONOS 0.66(H) 0.11 - 0.59 K/uL [facility] ABSOLUTE EOS 0.00(L) 0.01 - 0.50 K/uL [facility] ABSOLUTE BASOS 0.03 0.00 - 0.08 K/uL [facility] Granulocytes, immature 0.03 0.00 - 0.05 K/uL [facility] Blood 03/04/2018 2:36 PM EDT 03/04/2018 2:38 PM EDT us Timothy Aleman MD LAB BLOOD ORDERABLES Final Result [address] [address] * (ABNORMAL) CBC and differential (02/08/2018 4:37 PM EDT) WBC 10.13 3.40 - 11.20 K/uL [facility] RBC 4.27 3.80 - 4.80 M/uL [facility] HGB 11.8(L) 12.0 - 15.0 g/dL [facility] HCT 35.9(L) 36.0 - 46.0 % [facility] PLT 347 130 - 400 K/uL [facility] MCV 84.1 79.0 - 98.0 fL [facility] MCH 27.6 27.0 - 34.8 pg [facility] MCHC 32.9 31.5 - 36.0 g/dL [facility] RDW 16.7(H) 10.8 - 14.6 % [facility] MPV 10.9 9.4 - 12.4 fl [facility] NRBC 0.00 /100 WBCs [facility] ABSOLUTE NRBC 0.00 K/uL [facility] DIFF METHOD Auto [facility] NEUTS 51.7 45.30 - 77.70 % [facility] LYMPHS 42.8(H) 12.30 - 39.70 % [facility] MONOS 4.9 4.10 - 12.80 % [facility] EOS 0.0 0 - 7.2 % [facility] BASOS 0.3 0 - 2.80 % [facility] Granulocytes, immature (%) 0.3 0.0 - 0.9 % [facility] ABSOLUTE NEUTS 5.23 1.40 - 7.70 K/uL [facility] ABSOLUTE LYMPHS 4.34(H) 0.60 - 3.20 K/uL [facility] ABSOLUTE MONOS 0.50 0.11 - 0.59 K/uL [facility] ABSOLUTE EOS 0.00(L) 0.01 - 0.50 K/uL [facility] ABSOLUTE BASOS 0.03 0.00 - 0.08 K/uL [facility] Granulocytes, immature 0.03 0.00 - 0.05 K/uL [facility] Blood 02/08/2018 4:37 PM EDT 02/08/2018 4:39 PM EDT us Timothy Aleman MD LAB BLOOD ORDERABLES Final Result Performing Organization Address City/State/[facility] Co de Phone Number [facility] [address] [place] [address] * (ABNORMAL) CBC and differential (01/13/2018 9:15 AM EDT) WBC 9.75 3.40 - 11.20 K/uL [facility] RBC 4.25 3.80 - 4.80 M/uL [facility] HGB 11.6(L) 12.0 - 15.0 g/dL [facility] HCT 35.5(L) 36.0 - 46.0 % [facility] PLT 323 130 - 400 K/uL [facility] MCV 83.5 79.0 - 98.0 fL [facility] MCH 27.3 27.0 - 34.8 pg [facility] MCHC 32.7 31.5 - 36.0 g/dL [facility] RDW 16.8(H) 10.8 - 14.6 % [facility] MPV 10.6 9.4 - 12.4 fl [facility] NRBC 0.00 /100 WBCs [facility] ABSOLUTE NRBC 0.00 K/uL [facility] DIFF METHOD Auto [facility] NEUTS 57.3 45.30 - 77.70 % [facility] LYMPHS 37.8 12.30 - 39.70 % [facility] MONOS 4.4 4.10 - 12.80 % [facility] EOS 0.0 0 - 7.2 % [facility] BASOS 0.2 0 - 2.80 % [facility] Granulocytes, immature (%) 0.3 0.0 - 0.9 % [facility] ABSOLUTE NEUTS 5.58 1.40 - 7.70 K/uL [facility] ABSOLUTE LYMPHS 3.69(H) 0.60 - 3.20 K/uL [facility] ABSOLUTE MONOS 0.43 0.11 - 0.59 K/uL [facility] ABSOLUTE EOS 0.00(L) 0.01 - 0.50 K/uL [facility] ABSOLUTE BASOS 0.02 0.00 - 0.08 K/uL [facility] Granulocytes, immature 0.03 0.00 - 0.05 K/uL [facility] Blood 01/13/2018 9:15 AM EDT 01/13/2018 9:19 AM EDT us Timothy Aleman MD LAB BLOOD ORDERABLES Final Result Performing Organization Address City/State/[facility] Co de Phone Number [address] [address] * (ABNORMAL) CBC and differential (12/14/2017 4:18 PM EDT) WBC 10.35 3.40 - 11.20 K/uL [facility] RBC 4.32 3.80 - 4.80 M/uL [facility] HGB 11.8(L) 12.0 - 15.0 g/dL [facility] HCT 35.7(L) 36.0 - 46.0 % [facility] PLT 337 130 - 400 K/uL [facility] MCV 82.6 79.0 - 98.0 fL [facility] MCH 27.3 27.0 - 34.8 pg [facility] MCHC 33.1 31.5 - 36.0 g/dL [facility] RDW 15.9(H) 10.8 - 14.6 % [facility] MPV 11.1 9.4 - 12.4 fl [facility] NRBC 0.00 /100 WBCs [facility] ABSOLUTE NRBC 0.00 K/uL [facility] DIFF METHOD Auto [facility] NEUTS 50.6 45.30 - 77.70 % [facility] LYMPHS 43.1(H) 12.30 - 39.70 % [facility] MONOS 5.7 4.10 - 12.80 % [facility] EOS 0.0 0 - 7.2 % [facility] BASOS 0.3 0 - 2.80 % [facility] Granulocytes, immature (%) 0.3 0.0 - 0.9 % [facility] ABSOLUTE NEUTS 5.24 1.40 - 7.70 K/uL [facility] ABSOLUTE LYMPHS 4.46(H) 0.60 - 3.20 K/uL [facility] ABSOLUTE MONOS 0.59 0.11 - 0.59 K/uL [facility] ABSOLUTE EOS 0.00(L) 0.01 - 0.50 K/uL [facility] ABSOLUTE BASOS 0.03 0.00 - 0.08 K/uL [facility] Granulocytes, immature 0.03 0.00 - 0.05 K/uL [facility] Blood 12/14/2017 4:18 PM EDT 12/14/2017 4:21 PM EDT us Timothy Aleman MD LAB BLOOD ORDERABLES Final Result Performing Organization Address City/State/[facility] Co de Phone Number [facility] [address] [place] [address] * (ABNORMAL) CBC and differential (11/16/2017 4:22 PM EDT) WBC 11.28(H) 3.40 - 11.20 K/uL [facility] RBC 4.20 3.80 - 4.80 M/uL [facility] HGB 11.5(L) 12.0 - 15.0 g/dL [facility] HCT 35.1(L) 36.0 - 46.0 % [facility] PLT 348 130 - 400 K/uL [facility] MCV 83.6 79.0 - 98.0 fL [facility] MCH 27.4 27.0 - 34.8 pg [facility] MCHC 32.8 31.5 - 36.0 g/dL [facility] RDW 16.3(H) 10.8 - 14.6 % [facility] MPV 10.8 9.4 - 12.4 fl [facility] NRBC 0.00 /100 WBCs [facility] ABSOLUTE NRBC 0.00 K/uL [facility] DIFF METHOD Auto [facility] NEUTS 55.7 45.30 - 77.70 % [facility] LYMPHS 38.5 12.30 - 39.70 % [facility] MONOS 5.3 4.10 - 12.80 % [facility] EOS 0.0 0 - 7.2 % [facility] BASOS 0.2 0 - 2.80 % [facility] Granulocytes, immature (%) 0.3 0.0 - 0.9 % [facility] ABSOLUTE NEUTS 6.29 1.40 - 7.70 K/uL [facility] ABSOLUTE LYMPHS 4.34(H) 0.60 - 3.20 K/uL [facility] ABSOLUTE MONOS 0.60(H) 0.11 - 0.59 K/uL [facility] ABSOLUTE EOS 0.00(L) 0.01 - 0.50 K/uL [facility] ABSOLUTE BASOS 0.02 0.00 - 0.08 K/uL [facility] Granulocytes, immature 0.03 0.00 - 0.05 K/uL [facility] Blood 11/16/2017 4:22 PM EDT 11/16/2017 4:24 PM EDT Timothy Aleman MD LAB BLOOD ORDERABLES Final Result [address] [address] * (ABNORMAL) CBC and differential (10/15/2017 11:37 AM EDT) WBC 9.36 3.40 - 11.20 K/uL [facility] RBC 4.34 3.80 - 4.80 M/uL [facility] HGB 11.9(L) 12.0 - 15.0 g/dL [facility] HCT 36.5 36.0 - 46.0 % [facility] PLT 336 130 - 400 K/uL [facility] MCV 84.1 79.0 - 98.0 fL [facility] MCH 27.4 27.0 - 34.8 pg [facility] MCHC 32.6 31.5 - 36.0 g/dL [facility] RDW 16.5(H) 10.8 - 14.6 % [facility] MPV 10.5 9.4 - 12.4 fl [facility] NRBC 0.00 /100 WBCs [facility] ABSOLUTE NRBC 0.00 K/uL [facility] DIFF METHOD Auto [facility] NEUTS 54.8 45.30 - 77.70 % [facility] LYMPHS 41.1(H) 12.30 - 39.70 % [facility] MONOS 3.7(L) 4.10 - 12.80 % [facility] EOS 0.0 0 - 7.2 % [facility] BASOS 0.2 0 - 2.80 % [facility] Granulocytes, immature (%) 0.2 0.0 - 0.9 % [facility] ABSOLUTE NEUTS 5.12 1.40 - 7.70 K/uL [facility] ABSOLUTE LYMPHS 3.85(H) 0.60 - 3.20 K/uL [facility] ABSOLUTE MONOS 0.35 0.11 - 0.59 K/uL [facility] ABSOLUTE EOS 0.00(L) 0.01 - 0.50 K/uL [facility] ABSOLUTE BASOS 0.02 0.00 - 0.08 K/uL [facility] Granulocytes, immature 0.02 0.00 - 0.05 K/uL [facility] Blood 10/15/2017 11:3 7 AM EDT 10/15/2017 11:39 AM EDT us Timothy Aleman MD LAB BLOOD ORDERABLES Final Result [facility] [address] [place] [address] * (ABNORMAL) CBC and differential (09/21/2017 4:29 PM EST) WBC 12.38(H) 3.40 - 11.20 K/uL [facility] RBC 4.20 3.80 - 4.80 M/uL [facility] HGB 11.4(L) 12.0 - 15.0 g/dL [facility] HCT 35.0(L) 36.0 - 46.0 % [facility] PLT 344 130 - 400 K/uL [facility] MCV 83.3 79.0 - 98.0 fL [facility] MCH 27.1 27.0 - 34.8 pg [facility] MCHC 32.6 31.5 - 36.0 g/dL [facility] RDW 16.5(H) 10.8 - 14.6 % [facility] MPV 10.9 9.4 - 12.4 fl [facility] NRBC 0.00 /100 WBCs [facility] ABSOLUTE NRBC 0.00 K/uL [facility] DIFF METHOD Auto [facility] NEUTS 60.9 45.30 - 77.70 % [facility] LYMPHS 33.8 12.30 - 39.70 % [facility] MONOS 4.4 4.10 - 12.80 % [facility] EOS 0.0 0 - 7.2 % [facility] BASOS 0.3 0 - 2.80 % [facility] Granulocytes, immature (%) 0.6 0.0 - 0.9 % [facility] ABSOLUTE NEUTS 7.53 1.40 - 7.70 K/uL [facility] ABSOLUTE LYMPHS 4.19(H) 0.60 - 3.20 K/uL [facility] ABSOLUTE MONOS 0.55 0.11 - 0.59 K/uL [facility] ABSOLUTE EOS 0.00(L) 0.01 - 0.50 K/uL [facility] ABSOLUTE BASOS 0.04 0.00 - 0.08 K/uL [facility] Granulocytes, immature 0.07(H) 0.00 - 0.05 K/uL [facility] Blood 09/21/2017 4:29 PM EST 09/21/2017 4:32 PM EST us Timothy Aleman MD LAB BLOOD ORDERABLES Final Result Performing Organization Address City/State/[facility] Co de Phone Number GARCIA SIERRA [address] [address] * (ABNORMAL) CBC and differential (08/20/2017 12:51 PM EST) WBC 10.42 3.40 - 11.20 K/uL [facility] RBC 4.28 3.80 - 4.80 M/uL [facility] HGB 11.5(L) 12.0 - 15.0 g/dL [facility] HCT 36.1 36.0 - 46.0 % [facility] PLT 351 130 - 400 K/uL [facility] MCV 84.3 79.0 - 98.0 fL [facility] MCH 26.9(L) 27.0 - 34.8 pg [facility] MCHC 31.9 31.5 - 36.0 g/dL [facility] RDW 16.2(H) 10.8 - 14.6 % [facility] MPV 11.2 9.4 - 12.4 fl [facility] NRBC 0.00 /100 WBCs [facility] ABSOLUTE NRBC 0.00 K/uL [facility] DIFF METHOD Auto [facility] NEUTS 59.9 45.30 - 77.70 % [facility] LYMPHS 34.5 12.30 - 39.70 % [facility] MONOS 4.9 4.10 - 12.80 % [facility] EOS 0.0 0 - 7.2 % [facility] BASOS 0.4 0 - 2.80 % [facility] Granulocytes, immature (%) 0.3 0.0 - 0.9 % [facility] ABSOLUTE NEUTS 6.25 1.40 - 7.70 K/uL [facility] ABSOLUTE LYMPHS 3.59(H) 0.60 - 3.20 K/uL [facility] ABSOLUTE MONOS 0.51 0.11 - 0.59 K/uL [facility] ABSOLUTE EOS 0.00(L) 0.01 - 0.50 K/uL [facility] ABSOLUTE BASOS 0.04 0.00 - 0.08 K/uL [facility] Granulocytes, immature 0.03 0.00 - 0.05 K/uL [facility] Blood 08/20/2017 12:5 1 PM EST 08/20/2017 12:53 PM EST us Timothy Aleman MD LAB BLOOD ORDERABLES Final Result [facility] [address] [place] [address] documented in this encounter Visit Diagnoses Diagnosis Diagnosis unknown- Primary documented in this encounter Care Teams Master Ship Relationship Specialty Start Date End Date Jose Elias, Liss Chau MD [address] [place] [phone] PCP - General Internal Medicine 06/01/17 documented as of this encounter Additional Source Comments The information contained in this document represents components of the legal health record. It is not the complete legal health record.[facility]
== END 2025-05-25 09:12 | disposition home or self-care (01) ==
LOC: HO.HMCH 08:42
PROVIDERS: PCP Internal Medicine; Visit Provider Internal Medicine
DX: E11.65 Type 2 diabetes mellitus with hyperglycemia (principal); E66.01 Morbid (severe) obesity due to excess calories; Z68.38 Body mass index [BMI] 38.0-38.9, adult; C50.911 Malignant neoplasm of unspecified site of right female breast; F25.9 Schizoaffective disorder, unspecified; I10 Essential (primary) hypertension; E78.00 Pure hypercholesterolemia, unspecified; K21.9 Gastro-esophageal reflux disease without esophagitis; G62.9 Polyneuropathy, unspecified

== ENCOUNTER → 2025-05-25 08:41 | Outpatient (BNVA) | payer MEDICARE, MEDICAID, SELFPAY | PROVIDERS: PCP Internal Medicine; Visit Provider Internal Medicine | DX: E11.65 Type 2 diabetes mellitus with hyperglycemia (principal); E78.00 Pure hypercholesterolemia, unspecified; I10 Essential (primary) hypertension; E66.01 Morbid (severe) obesity due to excess calories; Z68.38 Body mass index [BMI] 38.0-38.9, adult; K21.9 Gastro-esophageal reflux disease without esophagitis; G62.9 Polyneuropathy, unspecified; F25.9 Schizoaffective disorder, unspecified; C50.911 Malignant neoplasm of unspecified site of right female breast | CPT/HCPCS: 83036; 99212 ==

== ENCOUNTER 2025-06-01 11:22 | Outpatient (AMB) | payer MEDICARE, MEDICAID, SELFPAY ==
--- NOTE | 2025-06-01 11:36 | MHC.OFFVIS ---
Vital Signs 06/01/25 11:37 Height 5 ft 2 in Weight 207 lb BMI 37.9 BP 120/82 Blood Pressure Location Lt brachial Position Sitting Intake Visit Reasons: 6 month breast exam Intake Note: Patient is seen in office for 6 month follow up visit, breast exam. 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 She underwent ultrasound-guided core biopsy on 05/28/2021 for suspicious right breast density in the 10 o'clock position andwas found to have an infiltrating ductal carcinoma. She subsequently underwent a right breast lumpectomy with needle localization, sentinel node biopsy on 06/24/2021 pathology confirmed an infiltrating ductal carcinoma of the right breast, grade 1, 1.3 cm in diameter, ER/VA positive, HER2 Glendy negative, 1 of 4 nodes positive for metastatic disease; AJCC Stage (8th ed.): pT1c N1a(sn)(i+). She was evaluated by Dr. Mora on 07/03/2021. Genomic testing with MammaPrint was performed and she was determined to have an absolute chemotherapy benefit greater than 12%. Five year metastasis free survival with chemo hormonal therapy is 96%. The decision was made to proceed with chemotherapy with dose dense AC followed by Taxol. This was followed by radiation therapy performed at [facility] completed on 03/18/2022. She was on tamoxifen but developed blood clots and therefore was switched to letrozole which she continues to take. She feels well during this visit and denies any ongoing breast symptoms or concerns. Annual mammogram obtained on 05/18/2025 revealed no mammographic evidence of malignancy and recommended routine screening mammogram 12 months (BI-RADS 2). [facility] Medical History Anemia Tachycardia Overweight (BMI 25.0-29.9) Microangiopathy Left leg paresthesias COVID-19 virus infection Schizoaffective disorder Colon cancer screening Breast cancer Arthritis Depression Hiatal hernia Hearing loss Facial paralysis Schizophrenia Obesity Iron deficiency anemia Hypertension Hypercholesterolemia GERD (gastroesophageal reflux disease) Type 2 diabetes mellitus with hyperglycemia Surgical History History of removal of Port-a-Cath History of lumpectomy of right breast Hemiparesis History of eye surgery History of placement of ear tubes Family History Father Medical history unknown Mother Medical history unknown Social History Household Members: Significant Other Housing: Condominium Are you a primary direct care worker to a significant other at home: No Do you presently have visiting nurse or other home services: Yes Alcohol intake: never Patient Tobacco Use Status: Never used Tobacco Tobacco use type: Cigarette e-Cigarette/Vaping Use: Never Used Second Hand Smoke Exposure: No Advance Directives Date on File: 06/24/21 service: No Current occupational status: unemployed Sexual orientation: Lesbian/Reyes/Homosexual Cognitive needs: No Hearing needs: Yes (hearing aides) Vision needs: Yes (glasses) Female Reproductive History Menstrual Age of Menarche: 13 Review of Systems Const Denies chills and Denies fever(s) Card Denies chest pain and Denies dyspnea Resp Denies dyspnea GI Denies abdominal pain, Denies constipation, Denies nausea and Denies vomiting Skin/Breast Denies rash and Denies jaundice Physical Exam Vital Signs: Last Vital Signs BP 120/82 06/01/25 11:37 BMI result Body Mass Index 37.9 Const General: comfortable, no acute distress and alert Orientation/consciousness: patient oriented x3 Chest Other: Right breast: no skin change noted, no palpable mass, nipple retraction, nipple discharge or enlarged lymph nodes. Left breast: no skin change, nipple retraction, nipple discharge, palpable mass, or enlarged lymph node. small scar left upper chest from old port site Resp Effort & Inspection: normal respiratory effort and able to speak in complete sentences Skin Other: warm and dry Neuro General: patient oriented x3 Assessment & Plan Assessment & Plan (1) Invasive ductal carcinoma of right breast: Comment: Lumpectomy May 2021 Code(s): C50.911 - Malignant neoplasm of unspecified site of right female breast Category: Medical Plan 54 year old female with history of right breast lumpectomy with needle localization, right axillary sentinel node biopsy for infiltrating ductal carcinoma. She completed chemo and radiation therapy and continues on letrozole. She underwent her annual mammogram on 05/18/2025 which revealed no mammographic evidence of malignancy either breast (BI-RADS 2). Her breast exam revealed no suspicious findings. Routine screening mammogram is recommended in 1 year. Follow-up examination in 6 months was recommended or sooner if she develops concerns. Coding Level of Care Code Est Pt Level 3 (49277) Diagnoses Invasive ductal carcinoma of right breast C50.911
[2025-06-01 11:37] VITALS: BP 120/82; BMI 37.9
--- OUTSIDE RECORDS SUMMARY | 2025-06-01 14:12 | XMS_ITS | Encounter Summary ---
Author Organization [facility] Address [address] [place] [address] Phone Care Team Providers Care Associate Technician Name Role Phone Liss Moctezuma MD Primary Care Provider [phone] Encounter Details Date Type Department Care Team (Late st Contact Info) Description 12/26/2021 Ancillary Orders [facility],Outside Imaging [address], [place] [id number] System, Provider Not In, [place] [address] Social History Tobacco Use Types Packs/Day Years [...] on filedocumented in this encounter Care Teams Associate Technician Relationship Specialty Start Date End Date Liss Moctezuma MD [address] [place] [address] PCP - General Internal Medicine 06/01/17 documented as of this encounter Additional Source Comments The information contained in this document represents components of the legal health record. It is not the complete legal health record.[facility]
--- OUTSIDE RECORDS SUMMARY | 2025-06-01 14:12 | XMS_ITS | Encounter Summary ---
Author Organization [facility] Address [address] [place] [address] Phone Care Team Providers Care Strainer Tender Name Role Phone Liss Moctezuma MD Primary Care Provider [phone] Encounter Details Date Type Department Care Team (Late st Contact Info) Description 12/26/2021 Ancillary Orders [facility],Outside Imaging [address], [place] [id number] System, Provider [place] In, [place] [address] Social History Tobacco Use Types Packs/Day Years [...] on filedocumented in this encounter Care Teams Strainer Tender Relationship Specialty Start Date End Date Liss Moctezuma MD [address] [place] [address] PCP - General Internal Medicine 06/01/17 documented as of this encounter Additional Source Comments The information contained in this document represents components of the legal health record. It is not the complete legal health record.[facility]
--- OUTSIDE RECORDS SUMMARY | 2025-06-01 14:12 | XMS_ITS | Encounter Summary ---
Author Organization [facility] Address [address] [place] [address] Phone Care Team Providers Care Title Abstractor Name Role Phone Liss Moctezuma MD Primary Care Provider [phone] Encounter Details Date Type Department Care Team (Late st Contact Info) Description 12/26/2021 Ancillary Orders [facility],Outside Imaging [address] [place] [address] System, Provider Not In, [place] [address] Social History Tobacco Use Types Packs/Day Years [...] on filedocumented in this encounter Care Teams Title Abstractor Relationship Specialty Start Date End Date Liss Moctezuma MD [address] [place] [address] PCP - General Internal Medicine 06/01/17 documented as of this encounter Additional Source Comments The information contained in this document represents components of the legal health record. It is not the complete legal health record.[facility]
--- OUTSIDE RECORDS SUMMARY | 2025-06-01 14:12 | XMS_ITS | Clinical Summary ---
Author Organization [facility] Address [address] [place] [phone] Phone Care Team Providers Care Supervisor Dry Paste Name Role Phone Liss Moctezuma MD Primary Care Provider [phone] Allergies Active Allergy Reactions Criticality Noted Date [...] Active ferrous sulfate 324 mg (65 mg k[place] iron) TbEC Take 324 mg by mouth [...] EST) WBC 9.66 4.00 - 11.00 K/uL [facility] RBC 4.75 3.72 - 5.30 M/uL [facility] HGB 14.6 10.6 - 15.5 g/dL [facility] HCT 43.9 32.0 - 45.0 % [facility] PLT 309 140 - 430 K/uL [facility] MCV 92.4 78.0 - 97.0 fL [facility] MCH 30.7 25.0 - 33.0 pg [facility] MCHC 33.3 32.0 - 36.0 g/dL [facility] RDW 14.6 11.0 - 16.0 % [facility] MPV 10.7 8.4 - 12.8 fl [facility] NRBC 0.00 0 /100 WBCs [facility] ABSOLUTE NRBC 0.00 0 K/uL [facility] DIFF METHOD Auto [facility] NEUTS 67.4 43.0 - 75.0 % [facility] LYMPHS 27.2 18.2 - 47.4 % [facility] MONOS 4.8 4.00 - 11.00 % [facility] EOS 0.0 0.0 - 8.0 % [facility] BASOS 0.4 0.0 - 2.0 % [facility] Granulocytes, immature (%) 0.2 0.0 - 0.9 % [facility] ABSOLUTE NEUTS 6.51 1.80 - 7.70 K/uL [facility] ABSOLUTE LYMPHS 2.63 1.00 - 3.10 K/uL [facility] ABSOLUTE MONOS 0.46 0.20 - 0.80 K/uL [facility] ABSOLUTE EOS 0.00 0.00 - 0.80 K/uL [facility] ABSOLUTE BASOS 0.04 0.00 - 0.09 K/uL [facility] Granulocytes, immature 0.02 0.00 - 0.05 K/uL [facility] Blood 07/18/2021 12:1 4 PM EST 07/18/2021 12:18 PM EST us Paris Bruce MD LAB BLOOD BKR ORDERABLES Final Result Performing Organization Address City/State/[facility] Co de Phone Number [facility] [address] [place] [address] * Mammogram Outside (No Interpretation) (06/24/2021 12:00 AM EST) Narrative SYSTEMGENERATED, DOCUMENTATION - 12/26/2021 6:59 AM EDT This study is for PACS storage only and not for interpretation. us Provider Not In System PhD IMG OUTSIDE IMAGING W /OUT INTERPRETATION Final Result from Last 3 Months or Most Recently Relevant to Health Maintenance Insurance MEDICARE PART A & B [facility] MEDICARE PART A & B HEALTH MEDICARE PART A & B [id number] [place], [place] [address]HEALTH MEDICARE PART A & B Member Subscriber Plan / Payer (Ef fective 2004-Present) Name:Sabra Deutsch Member ID:[id number] Relation to Subscriber:Self Name:Sabra Deutsch Subscriber ID:[id number] Payer ID:[id number] Group ID:Not on file Type:Medicare Address: [employer] [address] & B [place] B [employer] PART A & B Member Subscriber Plan / Payer ( fective 2004-) Name:Sabra Deutsch Member ID:[id number] Relation to Subscriber:Self Name:Sabra Deutsch Subscriber ID:[id number] Payer ID:[id number] Group ID:Not on file Type:Medicare Address: [employer] [address] [place] [phone] [place] PART A & [facility] [place] Care Teams Supervisor Dry Paste Relationship Specialty Start Date End Date Liss Moctezuma MD [address] [place] [phone] PCP - General Internal Medicine 06/01/17 Additional Source Comments The information contained in this document represents components of the legal health record. It is not the complete legal health record.[facility]
--- OUTSIDE RECORDS SUMMARY | 2025-06-01 14:12 | XMS_ITS | Encounter Summary ---
Author Organization [facility] Address [address] [place] [address] Phone Care Team Providers Care Coordinate Measuring Machine Programmer Name Role Phone Liss Moctezuma MD Primary Care Provider [phone] Encounter Details Date Type Department Care Team (Late st Contact Info) Description 12/26/2021 Ancillary Orders [facility],Outside Imaging [address] [place], [place] [phone] System, Provider Not In, [place] [address] Social History Tobacco Use Types Packs/Day Years [...] on filedocumented in this encounter Care Teams Coordinate Measuring Machine Programmer Relationship Specialty Start Date End Date Liss Moctezuma MD [address] [place] [address] PCP - General Internal Medicine 06/01/17 documented as of this encounter Additional Source Comments The information contained in this document represents components of the legal health record. It is not the complete legal health record.[facility]
--- OUTSIDE RECORDS SUMMARY | 2025-06-01 14:13 | XMS_ITS | Encounter Summary ---
Author Organization [facility] Address [address] [place] [address] Phone Care Team Providers Care Nursing Program Coordinator Name Role Phone Liss Moctezuma MD Primary Care Provider [phone] Encounter Details Date Type Department Care Team (Late st Contact Info) Description 08/20/2017 Transcribe Orders [facility] Phleb Main [address] [place] [address] Timothy Aleman MD [address] [place] [address] Diagnosis unknown (Primary Dx) Social History Tobacco [...] EST) WBC 10.82 3.40 - 11.20 K/uL [facility] RBC 4.32 3.80 - 4.80 M/uL [facility] HGB 11.9(L) 12.0 - 15.0 g/dL [facility] HCT 36.9 36.0 - 46.0 % [facility] PLT 359 130 - 400 K/uL [facility] MCV 85.4 79.0 - 98.0 fL [facility] MCH 27.5 27.0 - 34.8 pg [facility] MCHC 32.2 31.5 - 36.0 g/dL [facility] RDW 16.3(H) 10.8 - 14.6 % [facility] MPV 10.8 9.4 - 12.4 fl [facility] NRBC 0.00 0.00 /100 WBCs [facility] ABSOLUTE NRBC 0.00 0.00 K/uL [facility] DIFF METHOD Auto [facility] NEUTS 55.9 45.30 - 77.70 % [facility] LYMPHS 38.7 12.30 - 39.70 % [facility] MONOS 4.8 4.10 - 12.80 % [facility] EOS 0.0 0 - 7.2 % [facility] BASOS 0.3 0 - 2.80 % [facility] Granulocytes, immature (%) 0.3 0.0 - 0.9 % [facility] ABSOLUTE NEUTS 6.05 1.40 - 7.70 K/uL [facility] ABSOLUTE LYMPHS 4.19(H) 0.60 - 3.20 K/uL [facility] ABSOLUTE MONOS 0.52 0.11 - 0.59 K/uL [facility] ABSOLUTE EOS 0.00(L) 0.01 - 0.50 K/uL [facility] ABSOLUTE BASOS 0.03 0.00 - 0.08 K/uL [facility] Granulocytes, immature 0.03 0.00 - 0.05 K/uL [facility] Blood 06/28/2018 4:16 PM EST 06/28/2018 4:18 PM EST us Timothy Aleman MD LAB BLOOD BKR ORDERABLES Fi nal Result [address] [address] * (ABNORMAL) CBC and differential (05/31/2018 11:14 AM EST) WBC 12.21(H) 3.40 - 11.20 K/uL [facility] RBC 4.32 3.80 - 4.80 M/uL [facility] HGB 11.8(L) 12.0 - 15.0 g/dL [facility] HCT 36.6 36.0 - 46.0 % [facility] PLT 357 130 - 400 K/uL [facility] MCV 84.7 79.0 - 98.0 fL [facility] MCH 27.3 27.0 - 34.8 pg [facility] MCHC 32.2 31.5 - 36.0 g/dL [facility] RDW 16.0(H) 10.8 - 14.6 % [facility] MPV 10.6 9.4 - 12.4 fl [facility] NRBC 0.00 0.00 /100 WBCs [facility] ABSOLUTE NRBC 0.00 0.00 K/uL [facility] DIFF METHOD Auto [facility] NEUTS 67.7 45.30 - 77.70 % [facility] LYMPHS 28.3 12.30 - 39.70 % [facility] MONOS 3.4(L) 4.10 - 12.80 % [facility] EOS 0.0 0 - 7.2 % [facility] BASOS 0.2 0 - 2.80 % [facility] Granulocytes, immature (%) 0.4 0.0 - 0.9 % [facility] ABSOLUTE NEUTS 8.27(H) 1.40 - 7.70 K/uL [facility] ABSOLUTE LYMPHS 3.46(H) 0.60 - 3.20 K/uL [facility] ABSOLUTE MONOS 0.41 0.11 - 0.59 K/uL [facility] ABSOLUTE EOS 0.00(L) 0.01 - 0.50 K/uL [facility] ABSOLUTE BASOS 0.02 0.00 - 0.08 K/uL [facility] Granulocytes, immature 0.05 0.00 - 0.05 K/uL [facility] Blood 05/31/2018 11:1 4 AM EST 05/31/2018 11:16 AM EST us Timothy Aleman MD LAB BLOOD BKR ORDERABLES Fi nal Result [facility] [address] [place] [address] * (ABNORMAL) CBC and differential (05/04/2018 1:10 PM EDT) WBC 10.44 3.40 - 11.20 K/uL [facility] RBC 4.39 3.80 - 4.80 M/uL [facility] HGB 12.0 12.0 - 15.0 g/dL [facility] HCT 36.8 36.0 - 46.0 % [facility] PLT 365 130 - 400 K/uL [facility] MCV 83.8 79.0 - 98.0 fL [facility] MCH 27.3 27.0 - 34.8 pg [facility] MCHC 32.6 31.5 - 36.0 g/dL [facility] RDW 15.6(H) 10.8 - 14.6 % [facility] MPV 10.6 9.4 - 12.4 fl [facility] NRBC 0.00 /100 WBCs [facility] ABSOLUTE NRBC 0.00 K/uL [facility] DIFF METHOD Auto [facility] NEUTS 55.1 45.30 - 77.70 % [facility] LYMPHS 39.6 12.30 - 39.70 % [facility] MONOS 4.7 4.10 - 12.80 % [facility] EOS 0.1 0 - 7.2 % [facility] BASOS 0.3 0 - 2.80 % [facility] Granulocytes, immature (%) 0.2 0.0 - 0.9 % [facility] ABSOLUTE NEUTS 5.76 1.40 - 7.70 K/uL [facility] ABSOLUTE LYMPHS 4.13(H) 0.60 - 3.20 K/uL [facility] ABSOLUTE MONOS 0.49 0.11 - 0.59 K/uL [facility] ABSOLUTE EOS 0.01 0.01 - 0.50 K/uL [facility] ABSOLUTE BASOS 0.03 0.00 - 0.08 K/uL [facility] Granulocytes, immature 0.02 0.00 - 0.05 K/uL [facility] Blood 05/04/2018 1:10 PM EDT 05/04/2018 1:13 PM EDT us Timothy Aleman MD LAB BLOOD BKR ORDERABLES Fi nal Result [facility] [address] [place] [address] * (ABNORMAL) CBC and differential (04/09/2018 10:30 AM EDT) WBC 9.89 3.40 - 11.20 K/uL [facility] RBC 4.43 3.80 - 4.80 M/uL [facility] HGB 12.2 12.0 - 15.0 g/dL [facility] HCT 37.2 36.0 - 46.0 % [facility] PLT 366 130 - 400 K/uL [facility] MCV 84.0 79.0 - 98.0 fL [facility] MCH 27.5 27.0 - 34.8 pg [facility] MCHC 32.8 31.5 - 36.0 g/dL [facility] RDW 15.2(H) 10.8 - 14.6 % [facility] MPV 10.7 9.4 - 12.4 fl [facility] NRBC 0.00 /100 WBCs [facility] ABSOLUTE NRBC 0.00 K/uL [facility] DIFF METHOD Auto [facility] NEUTS 59.0 45.30 - 77.70 % [facility] LYMPHS 34.8 12.30 - 39.70 % [facility] MONOS 5.6 4.10 - 12.80 % [facility] EOS 0.0 0 - 7.2 % [facility] BASOS 0.3 0 - 2.80 % [facility] Granulocytes, immature (%) 0.3 0.0 - 0.9 % [facility] ABSOLUTE NEUTS 5.84 1.40 - 7.70 K/uL [facility] ABSOLUTE LYMPHS 3.44(H) 0.60 - 3.20 K/uL [facility] ABSOLUTE MONOS 0.55 0.11 - 0.59 K/uL [facility] ABSOLUTE EOS 0.00(L) 0.01 - 0.50 K/uL [facility] ABSOLUTE BASOS 0.03 0.00 - 0.08 K/uL [facility] Granulocytes, immature 0.03 0.00 - 0.05 K/uL [facility] Blood 04/09/2018 10:3 0 AM EDT 04/09/2018 10:33 AM EDT us Timothy Aleman MD LAB BLOOD BKR ORDERABLES Fi nal Result [facility] [address] [place] [address] * (ABNORMAL) CBC and differential (03/04/2018 2:36 PM EDT) WBC 11.50(H) 3.40 - 11.20 K/uL [facility] RBC 4.20 3.80 - 4.80 M/uL [facility] HGB 11.8(L) 12.0 - 15.0 g/dL [facility] HCT 35.6(L) 36.0 - 46.0 % [facility] PLT 347 130 - 400 K/uL [facility] MCV 84.8 79.0 - 98.0 fL [facility] MCH 28.1 27.0 - 34.8 pg [facility] MCHC 33.1 31.5 - 36.0 g/dL [facility] RDW 16.0(H) 10.8 - 14.6 % [facility] MPV 10.9 9.4 - 12.4 fl [facility] NRBC 0.00 /100 WBCs [facility] ABSOLUTE NRBC 0.00 K/uL [facility] DIFF METHOD Auto [facility] NEUTS 54.4 45.30 - 77.70 % [facility] LYMPHS 39.3 12.30 - 39.70 % [facility] MONOS 5.7 4.10 - 12.80 % [facility] EOS 0.0 0 - 7.2 % [facility] BASOS 0.3 0 - 2.80 % [facility] Granulocytes, immature (%) 0.3 0.0 - 0.9 % [facility] ABSOLUTE NEUTS 6.26 1.40 - 7.70 K/uL [facility] ABSOLUTE LYMPHS 4.52(H) 0.60 - 3.20 K/uL [facility] ABSOLUTE MONOS 0.66(H) 0.11 - 0.59 K/uL [facility] ABSOLUTE EOS 0.00(L) 0.01 - 0.50 K/uL [facility] ABSOLUTE BASOS 0.03 0.00 - 0.08 K/uL [facility] Granulocytes, immature 0.03 0.00 - 0.05 K/uL [facility] Blood 03/04/2018 2:36 PM EDT 03/04/2018 2:38 PM EDT us Timothy Aleman MD LAB BLOOD BKR ORDERABLES Fi nal Result [facility] [address] [place] [address] * (ABNORMAL) CBC and differential (02/08/2018 4:37 PM EDT) WBC 10.13 3.40 - 11.20 K/uL [facility] RBC 4.27 3.80 - 4.80 M/uL [facility] HGB 11.8(L) 12.0 - 15.0 g/dL [facility] HCT 35.9(L) 36.0 - 46.0 % [facility] PLT 347 130 - 400 K/uL [facility] MCV 84.1 79.0 - 98.0 fL [facility] MCH 27.6 27.0 - 34.8 pg [facility] MCHC 32.9 31.5 - 36.0 g/dL [facility] RDW 16.7(H) 10.8 - 14.6 % [facility] MPV 10.9 9.4 - 12.4 fl [facility] NRBC 0.00 /100 WBCs [facility] ABSOLUTE NRBC 0.00 K/uL [facility] DIFF METHOD Auto [facility] NEUTS 51.7 45.30 - 77.70 % [facility] LYMPHS 42.8(H) 12.30 - 39.70 % [facility] MONOS 4.9 4.10 - 12.80 % [facility] EOS 0.0 0 - 7.2 % [facility] BASOS 0.3 0 - 2.80 % [facility] Granulocytes, immature (%) 0.3 0.0 - 0.9 % [facility] ABSOLUTE NEUTS 5.23 1.40 - 7.70 K/uL [facility] ABSOLUTE LYMPHS 4.34(H) 0.60 - 3.20 K/uL [facility] ABSOLUTE MONOS 0.50 0.11 - 0.59 K/uL [facility] ABSOLUTE EOS 0.00(L) 0.01 - 0.50 K/uL [facility] ABSOLUTE BASOS 0.03 0.00 - 0.08 K/uL [facility] Granulocytes, immature 0.03 0.00 - 0.05 K/uL [facility] Blood 02/08/2018 4:37 PM EDT 02/08/2018 4:39 PM EDT Timothy Aleman MD LAB BLOOD BKR ORDERABLES Fi nal Result [facility] [address] [place] [address] * (ABNORMAL) CBC and differential (01/13/2018 9:15 AM EDT) WBC 9.75 3.40 - 11.20 K/uL [facility] RBC 4.25 3.80 - 4.80 M/uL [facility] HGB 11.6(L) 12.0 - 15.0 g/dL [facility] HCT 35.5(L) 36.0 - 46.0 % [facility] PLT 323 130 - 400 K/uL [facility] MCV 83.5 79.0 - 98.0 fL [facility] MCH 27.3 27.0 - 34.8 pg [facility] MCHC 32.7 31.5 - 36.0 g/dL [facility] RDW 16.8(H) 10.8 - 14.6 % [facility] MPV 10.6 9.4 - 12.4 fl [facility] NRBC 0.00 /100 WBCs [facility] ABSOLUTE NRBC 0.00 K/uL [facility] DIFF METHOD Auto [facility] NEUTS 57.3 45.30 - 77.70 % [facility] LYMPHS 37.8 12.30 - 39.70 % [facility] MONOS 4.4 4.10 - 12.80 % [facility] EOS 0.0 0 - 7.2 % [facility] BASOS 0.2 0 - 2.80 % [facility] Granulocytes, immature (%) 0.3 0.0 - 0.9 % [facility] ABSOLUTE NEUTS 5.58 1.40 - 7.70 K/uL [facility] ABSOLUTE LYMPHS 3.69(H) 0.60 - 3.20 K/uL [facility] ABSOLUTE MONOS 0.43 0.11 - 0.59 K/uL [facility] ABSOLUTE EOS 0.00(L) 0.01 - 0.50 K/uL [facility] ABSOLUTE BASOS 0.02 0.00 - 0.08 K/uL [facility] Granulocytes, immature 0.03 0.00 - 0.05 K/uL [facility] Blood 01/13/2018 9:15 AM EDT 01/13/2018 9:19 AM EDT Timothy Aleman MD LAB BLOOD BKR ORDERABLES Fi nal Result [facility] [address] [place] [address] * (ABNORMAL) CBC and differential (12/14/2017 4:18 PM EDT) WBC 10.35 3.40 - 11.20 K/uL [facility] RBC 4.32 3.80 - 4.80 M/uL [facility] HGB 11.8(L) 12.0 - 15.0 g/dL [facility] HCT 35.7(L) 36.0 - 46.0 % [facility] PLT 337 130 - 400 K/uL [facility] MCV 82.6 79.0 - 98.0 fL [facility] MCH 27.3 27.0 - 34.8 pg [facility] MCHC 33.1 31.5 - 36.0 g/dL [facility] RDW 15.9(H) 10.8 - 14.6 % [facility] MPV 11.1 9.4 - 12.4 fl [facility] NRBC 0.00 /100 WBCs [facility] ABSOLUTE NRBC 0.00 K/uL [facility] DIFF METHOD Auto [facility] NEUTS 50.6 45.30 - 77.70 % [facility] LYMPHS 43.1(H) 12.30 - 39.70 % [facility] MONOS 5.7 4.10 - 12.80 % [facility] EOS 0.0 0 - 7.2 % [facility] BASOS 0.3 0 - 2.80 % [facility] Granulocytes, immature (%) 0.3 0.0 - 0.9 % [facility] ABSOLUTE NEUTS 5.24 1.40 - 7.70 K/uL [facility] ABSOLUTE LYMPHS 4.46(H) 0.60 - 3.20 K/uL [facility] ABSOLUTE MONOS 0.59 0.11 - 0.59 K/uL [facility] ABSOLUTE EOS 0.00(L) 0.01 - 0.50 K/uL [facility] ABSOLUTE BASOS 0.03 0.00 - 0.08 K/uL [facility] Granulocytes, immature 0.03 0.00 - 0.05 K/uL [facility] Blood 12/14/2017 4:18 PM EDT 12/14/2017 4:21 PM EDT Timothy Aleman MD LAB BLOOD BKR ORDERABLES Fi nal Result [facility] [address] [place], [place] [id number] * (ABNORMAL) CBC and differential (11/16/2017 4:22 PM EDT) WBC 11.28(H) 3.40 - 11.20 K/uL [facility] RBC 4.20 3.80 - 4.80 M/uL [facility] HGB 11.5(L) 12.0 - 15.0 g/dL [facility] HCT 35.1(L) 36.0 - 46.0 % [facility] PLT 348 130 - 400 K/uL [facility] MCV 83.6 79.0 - 98.0 fL [facility] MCH 27.4 27.0 - 34.8 pg [facility] MCHC 32.8 31.5 - 36.0 g/dL [facility] RDW 16.3(H) 10.8 - 14.6 % [facility] MPV 10.8 9.4 - 12.4 fl [facility] NRBC 0.00 /100 WBCs [facility] ABSOLUTE NRBC 0.00 K/uL [facility] DIFF METHOD Auto [facility] NEUTS 55.7 45.30 - 77.70 % [facility] LYMPHS 38.5 12.30 - 39.70 % [facility] MONOS 5.3 4.10 - 12.80 % [facility] EOS 0.0 0 - 7.2 % [facility] BASOS 0.2 0 - 2.80 % [facility] Granulocytes, immature (%) 0.3 0.0 - 0.9 % [facility] ABSOLUTE NEUTS 6.29 1.40 - 7.70 K/uL [facility] ABSOLUTE LYMPHS 4.34(H) 0.60 - 3.20 K/uL [facility] ABSOLUTE MONOS 0.60(H) 0.11 - 0.59 K/uL [facility] ABSOLUTE EOS 0.00(L) 0.01 - 0.50 K/uL [facility] ABSOLUTE BASOS 0.02 0.00 - 0.08 K/uL [facility] Granulocytes, immature 0.03 0.00 - 0.05 K/uL [facility] Blood 11/16/2017 4:22 PM EDT 11/16/2017 4:24 PM EDT us Timothy Aleman MD LAB BLOOD BKR ORDERABLES Fi nal Result [facility] [address] [place] [address] * (ABNORMAL) CBC and differential (10/15/2017 11:37 AM EDT) WBC 9.36 3.40 - 11.20 K/uL [facility] RBC 4.34 3.80 - 4.80 M/uL [facility] HGB 11.9(L) 12.0 - 15.0 g/dL [facility] HCT 36.5 36.0 - 46.0 % [facility] PLT 336 130 - 400 K/uL [facility] MCV 84.1 79.0 - 98.0 fL [facility] MCH 27.4 27.0 - 34.8 pg [facility] MCHC 32.6 31.5 - 36.0 g/dL [facility] RDW 16.5(H) 10.8 - 14.6 % [facility] MPV 10.5 9.4 - 12.4 fl [facility] NRBC 0.00 /100 WBCs [facility] ABSOLUTE NRBC 0.00 K/uL [facility] DIFF METHOD Auto [facility] NEUTS 54.8 45.30 - 77.70 % [facility] LYMPHS 41.1(H) 12.30 - 39.70 % [facility] MONOS 3.7(L) 4.10 - 12.80 % [facility] EOS 0.0 0 - 7.2 % [facility] BASOS 0.2 0 - 2.80 % [facility] Granulocytes, immature (%) 0.2 0.0 - 0.9 % [facility] ABSOLUTE NEUTS 5.12 1.40 - 7.70 K/uL [facility] ABSOLUTE LYMPHS 3.85(H) 0.60 - 3.20 K/uL [facility] ABSOLUTE MONOS 0.35 0.11 - 0.59 K/uL [facility] ABSOLUTE EOS 0.00(L) 0.01 - 0.50 K/uL [facility] ABSOLUTE BASOS 0.02 0.00 - 0.08 K/uL [facility] Granulocytes, immature 0.02 0.00 - 0.05 K/uL [facility] Blood 10/15/2017 11:3 7 AM EDT 10/15/2017 11:39 AM EDT us Timothy Aleman MD LAB BLOOD BKR ORDERABLES Fi nal Result [facility] [address] [place] [address] * (ABNORMAL) CBC and differential (09/21/2017 4:29 PM EST) WBC 12.38(H) 3.40 - 11.20 K/uL [facility] RBC 4.20 3.80 - 4.80 M/uL [facility] HGB 11.4(L) 12.0 - 15.0 g/dL [facility] HCT 35.0(L) 36.0 - 46.0 % [facility] PLT 344 130 - 400 K/uL [facility] MCV 83.3 79.0 - 98.0 fL [facility] MCH 27.1 27.0 - 34.8 pg [facility] MCHC 32.6 31.5 - 36.0 g/dL [facility] RDW 16.5(H) 10.8 - 14.6 % [facility] MPV 10.9 9.4 - 12.4 fl [facility] NRBC 0.00 /100 WBCs [facility] ABSOLUTE NRBC 0.00 K/uL [facility] DIFF METHOD Auto [facility] NEUTS 60.9 45.30 - 77.70 % [facility] LYMPHS 33.8 12.30 - 39.70 % [facility] MONOS 4.4 4.10 - 12.80 % [facility] EOS 0.0 0 - 7.2 % [facility] BASOS 0.3 0 - 2.80 % [facility] Granulocytes, immature (%) 0.6 0.0 - 0.9 % [facility] ABSOLUTE NEUTS 7.53 1.40 - 7.70 K/uL [facility] ABSOLUTE LYMPHS 4.19(H) 0.60 - 3.20 K/uL [facility] ABSOLUTE MONOS 0.55 0.11 - 0.59 K/uL [facility] ABSOLUTE EOS 0.00(L) 0.01 - 0.50 K/uL [facility] ABSOLUTE BASOS 0.04 0.00 - 0.08 K/uL [facility] Granulocytes, immature 0.07(H) 0.00 - 0.05 K/uL [facility] Blood 09/21/2017 4:29 PM EST 09/21/2017 4:32 PM EST us Timothy Aleman MD LAB BLOOD BKR ORDERABLES Fi nal Result [facility] [address] [place] [address] * (ABNORMAL) CBC and differential (08/20/2017 12:51 PM EST) WBC 10.42 3.40 - 11.20 K/uL [facility] RBC 4.28 3.80 - 4.80 M/uL [facility] HGB 11.5(L) 12.0 - 15.0 g/dL [facility] HCT 36.1 36.0 - 46.0 % [facility] PLT 351 130 - 400 K/uL [facility] MCV 84.3 79.0 - 98.0 fL [facility] MCH 26.9(L) 27.0 - 34.8 pg [facility] MCHC 31.9 31.5 - 36.0 g/dL [facility] RDW 16.2(H) 10.8 - 14.6 % [facility] MPV 11.2 9.4 - 12.4 fl [facility] NRBC 0.00 /100 WBCs [facility] ABSOLUTE NRBC 0.00 K/uL [facility] DIFF METHOD Auto [facility] NEUTS 59.9 45.30 - 77.70 % [facility] LYMPHS 34.5 12.30 - 39.70 % [facility] MONOS 4.9 4.10 - 12.80 % [facility] EOS 0.0 0 - 7.2 % [facility] BASOS 0.4 0 - 2.80 % [facility] Granulocytes, immature (%) 0.3 0.0 - 0.9 % [facility] ABSOLUTE NEUTS 6.25 1.40 - 7.70 K/uL [facility] ABSOLUTE LYMPHS 3.59(H) 0.60 - 3.20 K/uL [facility] ABSOLUTE MONOS 0.51 0.11 - 0.59 K/uL [facility] ABSOLUTE EOS 0.00(L) 0.01 - 0.50 K/uL [facility] ABSOLUTE BASOS 0.04 0.00 - 0.08 K/uL [facility] Granulocytes, immature 0.03 0.00 - 0.05 K/uL [facility] Blood 08/20/2017 12:5 1 PM EST 08/20/2017 12:53 PM EST us Timothy Aleman MD LAB BLOOD BKR ORDERABLES Fi nal Result Performing Organization Address City/State/[facility] Co de Phone Number [facility] [address] [place] [address] documented in this encounter Visit Diagnoses Diagnosis Diagnosis unknown- Primary documented in this encounter Care Teams Nursing Program Coordinator Relationship Specialty Start Date End Date Po, Liss Chau MD [address] [place] [address] PCP - General Internal Medicine 06/01/17 documented as of this encounter Additional Source Comments The information contained in this document represents components of the legal health record. It is not the complete legal health record.[facility]
--- OUTSIDE RECORDS SUMMARY | 2025-06-01 14:13 | XMS_ITS | Encounter Summary ---
Author Organization [facility] Address [address] [place] [address] Phone Care Team Providers Care Train Examiner Name Role Phone Liss Moctezuma MD Primary Care Provider [phone] Encounter Details Date Type Department Care Team (Late st Contact Info) Description 12/26/2021 Ancillary Orders [facility],Outside Imaging [address] [place], [place] [id number] System, Provider Not In, [place] [address] Social History Tobacco Use Types Packs/Day Years [...] on filedocumented in this encounter Care Teams Train Examiner Relationship Specialty Start Date End Date Liss Moctezuma MD [address] [place] [address] PCP - General Internal Medicine 06/01/17 documented as of this encounter Additional Source Comments The information contained in this document represents components of the legal health record. It is not the complete legal health record.[facility]
--- OUTSIDE RECORDS SUMMARY | 2025-06-01 14:13 | XMS_ITS | Encounter Summary ---
Author Organization [facility] Address [address] [place] [phone] Phone Care Team Providers Care Brush Filler Hand Name Role Phone Liss Moctezuma MD Primary Care Provider [phone] Encounter Details Date Type Department Care Team (Late st Contact Info) Description 07/23/2017 Transcribe Orders [facility] [address] [place] [address] Timothy Aleman MD [address] [place] [address] History of regular medication use (Primary Dx) [...] EST) WBC 9.24 3.40 - 11.20 K/uL [facility] RBC 4.38 3.80 - 4.80 M/uL [facility] HGB 11.8(L) 12.0 - 15.0 g/dL [facility] HCT 37.1 36.0 - 46.0 % [facility] PLT 340 130 - 400 K/uL [facility] MCV 84.7 79.0 - 98.0 fL [facility] MCH 26.9(L) 27.0 - 34.8 pg [facility] MCHC 31.8 31.5 - 36.0 g/dL [facility] RDW 15.8(H) 10.8 - 14.6 % [facility] MPV 10.8 9.4 - 12.4 fl [facility] NRBC 0.00 /100 WBCs [facility] ABSOLUTE NRBC 0.00 K/uL [facility] DIFF METHOD Auto [facility] NEUTS 59.2 45.30 - 77.70 % [facility] LYMPHS 36.3 12.30 - 39.70 % [facility] MONOS 3.9(L) 4.10 - 12.80 % [facility] EOS 0.0 0 - 7.2 % [facility] BASOS 0.3 0 - 2.80 % [facility] Granulocytes, immature (%) 0.3 0.0 - 0.9 % [facility] ABSOLUTE NEUTS 5.47 1.40 - 7.70 K/uL [facility] ABSOLUTE LYMPHS 3.35(H) 0.60 - 3.20 K/uL [facility] ABSOLUTE MONOS 0.36 0.11 - 0.59 K/uL [facility] ABSOLUTE EOS 0.00(L) 0.01 - 0.50 K/uL [facility] ABSOLUTE BASOS 0.03 0.00 - 0.08 K/uL [facility] Granulocytes, immature 0.03 0.00 - 0.05 K/uL [facility] Blood 07/23/2017 10:2 5 AM EST 07/23/2017 10:26 AM EST us Timothy Aleman MD LAB BLOOD BKR ORDERABLES Fi nal Result [facility] [address] [place] [address] documented in this encounter Visit Diagnoses Diagnosis History of regular medication use- Primary documented in this encounter Care Teams Brush Filler Hand Relationship Specialty Start Date End Date Liss Moctezuma MD [address] [place] [phone] PCP - General Internal Medicine 06/01/17 documented as of this encounter Additional Source Comments The information contained in this document represents components of the legal health record. It is not the complete legal health record.[facility]
--- OUTSIDE RECORDS SUMMARY | 2025-06-01 14:13 | XMS_ITS | Encounter Summary ---
Author Organization [facility] Address [address] [place] [address] Phone Care Team Providers Care Body Work Auto Trimmer Name Role Phone Liss Moctezuma MD Primary Care Provider [phone] Encounter Details Date Type Department Care Team (Late st Contact Info) Description 12/26/2021 Ancillary Orders [facility],Outside Imaging [address] [place], [place] [phone] System, Provider [place] In, [place] [address] Social History Tobacco Use Types Packs/Day Years [...] on filedocumented in this encounter Care Teams Body Work Auto Trimmer Relationship Specialty Start Date End Date Liss Moctezuma MD [address] [place] [address] PCP - General Internal Medicine 06/01/17 documented as of this encounter Additional Source Comments The information contained in this document represents components of the legal health record. It is not the complete legal health record.[facility]
--- OUTSIDE RECORDS SUMMARY | 2025-06-01 14:13 | XMS_ITS | Encounter Summary ---
Author Organization [facility] Address [address] [place] [address] Phone Care Team Providers Care Housing Manager Name Role Phone Liss Moctezuma MD Primary Care Provider [phone] Encounter Details Date Type Department Care Team (Late st Contact Info) Description 06/25/2017 Transcribe Orders [facility]le[facility] Main [address] [place] [address] Timothy Aleman MD [address] [place] [address] Psychosis, unspecified psychosis type (Primary Dx) Social [...] EST) WBC 9.93 3.40 - 11.20 K/uL [facility] RBC 4.36 3.80 - 4.80 M/uL [facility] HGB 11.8(L) 12.0 - 15.0 g/dL [facility] HCT 36.6 36.0 - 46.0 % [facility] PLT 335 130 - 400 K/uL [facility] MCV 83.9 79.0 - 98.0 fL [facility] MCH 27.1 27.0 - 34.8 pg [facility] MCHC 32.2 31.5 - 36.0 g/dL [facility] RDW 15.0(H) 10.8 - 14.6 % [facility] MPV 10.9 9.4 - 12.4 fl [facility] NRBC 0.00 /100 WBCs [facility] ABSOLUTE NRBC 0.00 K/uL [facility] DIFF METHOD Auto [facility] NEUTS 58.2 45.30 - 77.70 % [facility] LYMPHS 36.8 12.30 - 39.70 % [facility] MONOS 4.3 4.10 - 12.80 % [facility] EOS 0.0 0 - 7.2 % [facility] BASOS 0.3 0 - 2.80 % [facility] Granulocytes, immature (%) 0.4 0.0 - 0.9 % [facility] ABSOLUTE NEUTS 5.78 1.40 - 7.70 K/uL [facility] ABSOLUTE LYMPHS 3.65(H) 0.60 - 3.20 K/uL [facility] ABSOLUTE MONOS 0.43 0.11 - 0.59 K/uL [facility] ABSOLUTE EOS 0.00(L) 0.01 - 0.50 K/uL [facility] ABSOLUTE BASOS 0.03 0.00 - 0.08 K/uL [facility] Granulocytes, immature 0.04 0.00 - 0.05 K/uL [facility] Blood 06/25/2017 12:0 5 PM EST 06/25/2017 12:07 PM EST Timothy Aleman MD LAB BLOOD BKR ORDERABLES Fi nal Result Performing Organization Address City/State/[facility] Co de Phone Number [address] [address] documented in this encounter Visit Diagnoses Diagnosis Psychosis, unspecified psychosis type- Primary documented in this encounter Care Teams Housing Manager Relationship Specialty Start Date End Date Liss Moctezuma MD [address] [place] [id number] PCP - General Internal Medicine 06/01/17 documented as of this encounter Additional Source Comments The information contained in this document represents components of the legal health record. It is not the complete legal health record.[facility]
--- OUTSIDE RECORDS SUMMARY | 2025-06-01 14:13 | XMS_ITS | Encounter Summary ---
Author Organization [facility] Address [address] [place] [address] Phone Care Team Providers Care Vice President Fixed Income Name Role Phone Liss Moctezuma MD Primary Care Provider [phone] Encounter Details Date Type Department Care Team (Late st Contact Info) Description 12/26/2021 Ancillary Orders [facility],Outside Imaging [address] [place], [place] [id number] System, Provider Not In, [place] [address] Social History Tobacco Use Types Packs/Day Years [...] on filedocumented in this encounter Care Teams Vice President Fixed Income Relationship Specialty Start Date End Date Liss Moctezuma MD [address] [place] [phone] PCP - General Internal Medicine 06/01/17 documented as of this encounter Additional Source Comments The information contained in this document represents components of the legal health record. It is not the complete legal health record.[facility]
--- OUTSIDE RECORDS SUMMARY | 2025-06-14 19:00 | XMS_ITS | Clinical Summary ---
Author Organization Unknown Care Team Providers Care Leather Leveler Name Role Phone KYLE NASH, MEMO Unavailable Unavailable GEORGE HERNANDEZ, ANGELINA Unavailable Unavailable CATARINO HERNANDEZ, ROSA Unavailable Unavailable Payers Payer Name Policy Type Policy Number Effective Date Expira tion Date [place] [id number] [place] [id number] Problems Condition Name Condition Details Condition Category [...] 09-02 00:00: 00 12-20 00:00 :00 No [id number] 1 tablet QAM 1 tablet QAM (route: oral) Alternate Route: PO. Med Classific ation: Central Nervous System Agents aspirin 81 mg chewable tablet 3-14 00:00: 00 07-08 23:59 :00 No [id number] 1 tablet EVERY AM 1 tablet EVERY AM (route: oral) Med Classific ation: Hematolog ical Agents cyanocobala min (vitamin B-12) 1,000 mcg capsule 708 00:00: 02-06 23:59 :00 No [id number] 1 capsule EVERY AM 1 capsule EVERY AM (route: oral) Med Classific ation: Electroly te Balance-N utritiona l Products bupropion HCl 100 mg tablet 08-22 00:00: 12-20 00:00 :00 No [id number] 1 tablet Every day 1 tablet Every day (route: oral) Med Classific ation: Central Nervous System Agents Cinnamon 500 mg capsule 12-09 00:00: 00 01-06 23:59 :00 No [id number] 2 capsule DAILY 2 capsule DAILY (route: oral) Med Classific ation: Alternati ve Therapy clonidine HCl 0.1 mg tablet 12-27 00:00: 00 07-22 23:59 :00 No [id number] 1 tablet TWICE A DAY PRN 1 tablet TWICE A DAY PRN (route: oral) Med Classific ation: Cardiovas cular Therapy Agents clozapine 50 mg tablet 12-09 00:00: 00 12-21 23:59 :00 No [id number] 1.5 tablet 2 TIMES DAILY 1.5 tablet 2 TIMES DAILY (route: oral) Med Classific ation: Central Nervous System Agents DOK 100 mg capsule 08-30 00:00: 00 12-21 23:59 :00 No [id number] 1 capsule QD 1 capsule QD (route: oral) Alternate Route: PO. Med Classific ation: Gastroint estinal Therapy Agents ferrous sulfate 324 mg (65 mg iron) tablet,maría yed release 2 00:00: 00 02-03 23:59 :00 No [id number] 1 tablet ONCE A DAY 1 tablet ONCE A DAY (route: oral) Alternate Route: PO. Med Classific ation: Electroly te Balance-N utritiona l Products fluoxetine 20 mg tablet 206 00:00: 00 07-08 23:59 :00 No [id number] 1 tablet QAM 1 tablet QAM (route: oral) Alternate Route: PO. Med Classific ation: Central Nervous System Agents levonorgest rel-ethinyl estradiol 0.1 mg-20 mcg tablet 4-18 00:00: 00 07-08 23:59 :00 No [id number] 1 tablet Every am 1 tablet Every am (route: oral) Med Classific ation: Contracep tives losartan 25 mg tablet 12-02 00:00: 00 04-25 23:59 :00 No [id number] 1 tablet EVERY AM 1 tablet EVERY AM (route: oral) Med Classific ation: Cardiovas cular Therapy Agents metformin 1,000 mg tablet 03-12 00:00: 00 04-25 23:59 :00 No [id number] 1 tablet Twice daily 1 tablet Twice daily (route: oral) Med Classific ation: Endocrine omeprazole 20 mg capsule,del ayed release 09-16 00:00: 00 04-25 23:59 :00 No [id number] 1 capsule ONCE DAILY 1 capsule ONCE DAILY (route: oral) Alternate Route: PO. Med Classific ation: Gastroint estinal Therapy Agents simvastatin 5 mg tablet 09-16 00:00: 00 07-12 23:59 :00 No [id number] 1 tablet QD 1 tablet QD (route: oral) Alternate Route: PO. Med Classific ation: Cardiovas cular Therapy Agents Vitamin C 1,000 mg tablet 12-09 00:00: 00 01-06 23:59 :00 No [id number] 1 tablet EVERY AM 1 tablet EVERY AM (route: oral) Med Classific ation: Electroly te Balance-N utritiona l Products Vitamin D3 25 mcg (1,000 unit) capsule 16 00:00: 00 12-21 23:59 :00 No [id number] 1 capsule EVERY AM 1 capsule EVERY AM (route: oral) Med Classific ation: Electroly te Balance-N utritiona l Products amoxicillin 500 mg capsule 08 00:00: 00 01-14 23:59 :00 No [id number] 1 capsule EVERY 8 HOURS 1 capsule EVERY 8 HOURS (route: oral) Med Classific ation: Anti-Infe ctive Agents ibuprofen 800 mg tablet 08 00:00: 00 01-14 23:59 :00 No [id number] 1 tablet EVERY 8 HOURS 1 tablet EVERY 8 HOURS (route: oral) Med Classific ation: Analgesic , Anti-infl ammatory or Antipyret ic Jardiance 10 mg tablet 2020-07 00:00: 00 06-03 23:59 :00 No [id number] 1 tablet DAILY 1 tablet DAILY (route: oral) Med Classific ation: Endocrine fluoxetine 10 mg capsule 2020-07 2- 00:00: 00 08-26 23:59 :00 No [id number] 1 capsule DAILY 1 capsule DAILY (route: oral) Med Classific ation: Central Nervous System Agents clonidine HCl 0.1 mg tablet 2020-07 00:00: 00 12-21 23:59 :00 No [id number] 1 tablet 3 TIMES DAILY 1 tablet 3 TIMES DAILY (route: oral) Med Classific ation: Cardiovas cular Therapy Agents dexamethaso ne 4 mg tablet 08-26 00:00: 00 12-21 23:59 :00 No [id number] Per instruc tions DIRECTED Per instructio ns DIRECTED (route: oral) Med Classific ation: Endocrine Jardiance 10 mg tablet 08-26 00:00: 00 08-18 23:59 :00 No [id number] 1 tablet DAILY 1 tablet DAILY (route: oral) Med Classific ation: Endocrine ondansetron 8 mg disintegrat ing tablet 08-26 00:00: 00 10-13 23:59 :00 No [id number] Per instruc tions EVERY 8 HOURS Per instructio ns EVERY 8 HOURS (route: oral) Med Classific ation: Gastroint estinal Therapy Agents clonidine HCl 0.1 mg tablet 12-21 00:00: 00 08-13 23:59 :00 No [id number] 1 tablet 2 TIMES DAILY 1 tablet 2 TIMES DAILY (route: oral) Med Classific ation: Cardiovas cular Therapy Agents clonidine HCl 0.1 mg tablet 12-21 00:00: 00 08-13 23:59 :00 No [id number] 1 tablet NEEDED 1 tablet NEEDED (route: oral) Med Classific ation: Cardiovas cular Therapy Agents clozapine 100 mg tablet 12-21 00:00: 00 02-15 23:59 :00 No [id number] 1.5 tablet 2 TIMES DAILY 1.5 tablet 2 TIMES DAILY (route: oral) Med Classific ation: Central Nervous System Agents docusate sodium 100 mg capsule 12-21 00:00: 00 01-06 23:59 :00 No [id number] 2 capsule BEDTIME 2 capsule BEDTIME (route: oral) Med Classific ation: Gastroint estinal Therapy Agents Latuda 80 mg tablet 12-21 00:00: 00 04-26 23:59 :00 No [id number] 1 tablet DAILY 1 tablet DAILY (route: oral) Med Classific ation: Central Nervous System Agents lorazepam 1 mg tablet 12-21 00:00: 00 08-13 23:59 :00 No [id number] 1 tablet 2 TIMES DAILY 1 tablet 2 TIMES DAILY (route: oral) Med Classific ation: Central Nervous System Agents Lovenox 40 mg/0.4 mL subcutaneou s syringe 12-21 00:00: 00 02-06 23:59 :00 No [id number] 40 mg DAILY 40 mg DAILY (route: subcutaneo us) Med Classific ation: Hematolog ical Agents prazosin 1 mg capsule 12-21 00:00: 00 01-03 23:59 :00 No [id number] 1 capsule NEEDED 1 capsule NEEDED (route: oral) Med Classific ation: Cardiovas cular Therapy Agents trazodone 100 mg tablet 12-21 00:00: 00 01-06 23:59 :00 No [id number] 1 tablet NEEDED 1 tablet NEEDED (route: oral) Med Classific ation: Central Nervous System Agents Vitamin D3 10 mcg (400 unit) tablet 12-21 00:00: 00 08-25 23:59 :00 No [id number] 1 tablet DAILY 1 tablet DAILY (route: oral) Med Classific ation: Electroly te Balance-N utritiona l Products docusate sodium 100 mg capsule 01-06 00:00: 00 04-26 23:59 :00 No [id number] 1 capsule DAILY 1 capsule DAILY (route: oral) Med Classific ation: Gastroint estinal Therapy Agents trazodone 100 mg tablet 01-06 00:00: 00 03-03 23:59 :00 No [id number] Per instruc tions BEDTIME Per instructio ns BEDTIME (route: oral) Med Classific ation: Central Nervous System Agents gabapentin 100 mg capsule 2021-07- 00:00: 00 07-15 23:59 :00 No [id number] 1 capsule 2 TIMES DAILY 1 capsule 2 TIMES DAILY (route: oral) Alternate Route: NONE. Med Classific ation: Central Nervous System Agents pregabalin 50 mg capsule 08-17 00:00: 00 04-12 23:59 :00 No [id number] 1 capsule 2 TIMES DAILY 1 capsule 2 TIMES DAILY (route: oral) Med Classific ation: Central Nervous System Agents lorazepam 1 mg tablet 08-13 00:00: 00 Yes [id number] 0.5 tablet EVERY AM 0.5 tablet EVERY AM (route: oral) Med Classific ation: Central Nervous System Agents letrozole 2.5 mg tablet 02-03 00:00: 00 04-25 00:00 :00 No [id number] 1 tablet BEDTIME 1 tablet BEDTIME (route: oral) Med Classific ation: Antineopl astics Xarelto 20 mg tablet 02-03 00:00: 00 06-23 23:59 :00 No [id number] 1 tablet DAILY 1 tablet DAILY (route: oral) Med Classific ation: Hematolog ical Agents Jardiance 25 mg tablet 1- 00:00: 00 04-26 23:59 :00 No [id number] 1 tablet DAILY 1 tablet DAILY (route: oral) Med Classific ation: Endocrine Vitamin D3 10 mcg (400 unit) tablet 1-31 00:00: 00 04-21 23:59 :00 No [id number] 1 tablet DIRECTED 1 tablet DIRECTED (route: oral) Med Classific ation: Electroly te Balance-N utritiona l Products clozapine 100 mg tablet 02-21 00:00: 00 03-01 23:59 :00 No [id number] Per instruc tions DIRECTED Per instructio ns DIRECTED (route: oral) Med Classific ation: Central Nervous System Agents clozapine 100 mg tablet 03-01 00:00: 00 03-24 23:59 :00 No [id number] 1 tablet EVERY AM 1 tablet EVERY AM (route: oral) Med Classific ation: Central Nervous System Agents clozapine 200 mg disintegrat ing tablet 03-01 00:00: 00 03-24 23:59 :00 No [id number] 1 tablet BEDTIME 1 tablet BEDTIME (route: oral) Med Classific ation: Central Nervous System Agents multivitami n tablet 03-08 00:00: 00 04-25 23:59 :00 No [id number] 1 tablet DAILY 1 tablet DAILY (route: oral) Med Classific ation: Electroly te Balance-N utritiona l Products clozapine 200 mg tablet 03-24 00:00: 00 04-26 23:59 :00 No [id number] 1 tablet BEDTIME 1 tablet BEDTIME (route: oral) Med Classific ation: Central Nervous System Agents Clozaril 50 mg tablet 03-24 00:00: 00 04-26 23:59 :00 No [id number] 1 tablet 2 TIMES DAILY 1 tablet 2 TIMES DAILY (route: oral) Med Classific ation: Central Nervous System Agents pregabalin 50 mg capsule 04-13 00:00: 00 04-25 23:59 :00 No [id number] 1 capsule EVERY AM 1 capsule EVERY AM (route: oral) Med Classific ation: Central Nervous System Agents pregabalin 50 mg capsule 04-13 00:00: 00 04-25 23:59 :00 No [id number] 2 capsule EVERY PM 2 capsule EVERY PM (route: oral) Med Classific ation: Central Nervous System Agents Vitamin D3 10 mcg (400 unit) tablet 9-26 00:00: 00 04-25 23:59 :00 No [id number] 1 tablet EVERY AM 1 tablet EVERY AM (route: oral) Med Classific ation: Electroly te Balance-N utritiona l Products lorazepam 1 mg tablet 2023-07 1-26 00:00: 00 04-25 23:59 :00 No [id number] 1 tablet BEDTIME 1 tablet BEDTIME (route: oral) Med Classific ation: Central Nervous System Agents simvastatin 10 mg tablet 2023-07 2-17 00:00: 00 04-25 23:59 :00 No [id number] 1 tablet BEDTIME 1 tablet BEDTIME (route: oral) Med Classific ation: Cardiovas cular Therapy Agents metoprolol succinate ER 25 mg tablet,exte nded release 24 hr 3-18 00:00: 00 04-25 23:59 :00 No [id number] 1 tablet DAILY 1 tablet DAILY (route: oral) Med Classific ation: Cardiovas cular Therapy Agents Mounjaro 2.5 mg/0.5 mL subcutaneou s pen injector 7-08 00:00: 00 04-25 23:59 :00 No [id number] 2.5 mg WEEKLY 2.5 mg WEEKLY (route: subcutaneo us) Med Classific ation: Endocrine clozapine 200 mg tablet 2024-07 0- 00:00: 00 Yes [id number] 1 tablet BEDTIME 1 tablet BEDTIME (route: oral) Med Classific ation: Central Nervous System Agents Clozaril 50 mg tablet 2024-07 0- 00:00: 00 Yes [id number] 1 tablet 2 TIMES DAILY 1 tablet 2 TIMES DAILY (route: oral) Med Classific ation: Central Nervous System Agents docusate sodium 100 mg capsule 2024-07 0- 00:00: 00 Yes [id number] 1 capsule BEDTIME 1 capsule BEDTIME (route: oral) Med Classific ation: Gastroint estinal Therapy Agents Jardiance 25 mg tablet 2024-07 0- 00:00: 00 Yes [id number] 1 tablet EVERY AM 1 tablet EVERY AM (route: oral) Med Classific ation: Endocrine Latuda 80 mg tablet 2024-07 00:00: 00 Yes [id number] 1 tablet EVERY PM 1 tablet EVERY PM (route: oral) Med Classific ation: Central Nervous System Agents letrozole 2.5 mg tablet 2024-07 00:00: 00 Yes [id number] 1 tablet BEDTIME 1 tablet BEDTIME (route: oral) Med Classific ation: Antineopl astics lorazepam 1 mg tablet 2024-07 00:00: 00 Yes [id number] 0.5 tablet EVERY AM 0.5 tablet EVERY AM (route: oral) Med Classific ation: Central Nervous System Agents lorazepam 1 mg tablet 2024-07 00:00: 00 Yes [id number] 1 tablet BEDTIME 1 tablet BEDTIME (route: oral) Med Classific ation: Central Nervous System Agents losartan 25 mg tablet 2024-07 00:00: 00 Yes [id number] 1 tablet EVERY AM 1 tablet EVERY AM (route: oral) Med Classific ation: Cardiovas cular Therapy Agents metformin 1,000 mg tablet 2024-07 00:00: 00 Yes [id number] 1 tablet 2 TIMES DAILY 1 tablet 2 TIMES DAILY (route: oral) Med Classific ation: Endocrine metoprolol succinate ER 25 mg tablet,exte nded release 24 hr 2024-07 00:00: 00 Yes [id number] 1 tablet EVERY AM 1 tablet EVERY AM (route: oral) Med Classific ation: Cardiovas cular Therapy Agents Mounjaro 2.5 mg/0.5 mL subcutaneou s pen injector 2024-07 00:00: 00 Yes [id number] 2.5 mg WEEKLY 2.5 mg WEEKLY (route: subcutaneo us) Med Classific ation: Endocrine multivitami n tablet 2024-07 00:00: 00 Yes [id number] 1 tablet EVERY AM 1 tablet EVERY AM (route: oral) Med Classific ation: Electroly te Balance-N utritiona l Products omeprazole 20 mg capsule,del ayed release 2024-07 00:00: 00 Yes [id number] 1 capsule EVERY AM 1 capsule EVERY AM (route: oral) Alternate Route: PO. Med Classific ation: Gastroint estinal Therapy Agents simvastatin 10 mg tablet 2024-07 0 00:00: 00 Yes [id number] 1 tablet BEDTIME 1 tablet BEDTIME (route: oral) Med Classific ation: Cardiovas cular Therapy Agents trazodone 50 mg tablet 04-25 00:00: 00 Yes [id number] 0.5-1 tablet BEDTIME 0.5-1 tablet BEDTIME (route: oral) Med Classific ation: Central Nervous System Agents Vitamin D3 10 mcg (400 unit) tablet 2024-07 0 00:00: 00 Yes [id number] 1 tablet EVERY AM 1 tablet EVERY AM (route: oral) Med Classific ation: Electroly te Balance-N utritiona l Products pregabalin 50 mg capsule 04-25 00:00: 00 Yes [id number] 2 capsule BEDTIME 2 capsule BEDTIME (route: oral) Med Classific ation: Central Nervous System Agents pregabalin 50 mg capsule 04-25 00:00: 00 Yes [id number] 1 capsule 2 TIMES DAILY 1 capsule 2 TIMES DAILY (route: oral) Med Classific ation: Central Nervous System Agents METFORMIN ORAL -14 00:00: 00 02-12 00:00 :00 No [id number] Twice a day [id number] Twice a day (route: ) Med Classific ation: ENDOCRINE METFORMIN ORAL -20 00:00: 00 03-12 00:00 :00 No 500 mg1 tab TWICE-TIGRE Y 500 mg1 tab TWICE-TIGRE Y (route: ) Med Classific ation: ENDOCRINE Vital Signs Vital Name Observation Time Observation Value Commen ts Temperature 2025-05-30 12:13:00.000 97.8 [degF] Temperature 2025-05-23 12:02:00.000 98.4 [degF] Temperature 2025-05-16 12:03:00.000 97.5 [degF] Temperature 2025-05-09 11:42:00.000 97.5 [degF] Temperature 2025-04-25 12:13:00.000 97.8 [degF] Temperature 2025-04-18 12:07:00.000 97.8 [degF] Pulse 2025-05-30 12:13:00.000 100 /min Pulse 2025-05-23 12:02:00.000 100 /min Pulse 2025-05-16 12:03:00.000 100 /min Pulse 2025-05-09 11:42:00.000 100 /min Pulse 2025-04-25 12:13:00.000 100 /min Pulse 2025-04-18 12:07:00.000 108 /min O2 Saturation (%) 2025-05-30 12:17:00.000 98 % O2 Saturation (%) 2025-05-23 12:02:00.000 98 % O2 Saturation (%) 2025-05-16 12:04:00.000 98 % O2 Saturation (%) 2025-04-18 12:07:00.000 98 % Respirations 2025-05-30 12:13:00.000 16 /min Respirations 2025-05-23 12:02:00.000 16 /min Respirations 2025-05-16 12:03:00.000 16 /min Respirations 2025-05-09 11:42:00.000 16 /min Respirations 2025-04-25 12:13:00.000 16 /min Respirations 2025-04-18 12:07:00.000 16 /min Systolic Blood Pressure 2025-05-30 12:13:00.000 122 mm [Hg] Systolic Blood Pressure 2025-05-23 12:10:00.000 120 mm [Hg] Systolic Blood Pressure 2025-05-16 12:03:00.000 122 mm [Hg] Systolic Blood Pressure 2025-05-09 11:42:00.000 130 mm [Hg] Systolic Blood Pressure 2025-04-25 12:13:00.000 122 mm [Hg] Systolic Blood Pressure 2025-04-18 12:07:00.000 140 mm [Hg] Diastolic Blood Pressure 2025-05-30 12:13:00.000 70 mm [Hg] Diastolic Blood Pressure 2025-05-23 12:10:00.000 80 mm [Hg] Diastolic Blood Pressure 2025-05-16 12:03:00.000 70 mm [Hg] Diastolic Blood Pressure 2025-05-09 11:42:00.000 70 mm [Hg] Diastolic Blood Pressure 2025-04-25 12:13:00.000 80 mm [Hg] Diastolic Blood Pressure 2025-04-18 12:07:00.000 80 mm [Hg] Plan of Treatment Planned [...] HEALTH.] Future Scheduled Test SKILLED NU RSE TO [...] Future Scheduled Test SKILLED NU RSE FOR ADMINISTRATION AND TEACHING OF PRESCRIBED INJECTION THERAPY FOR MOUNJARO 2.5 MG/0.5 ML SUBCUTANEOUS PEN INJECTOR2.5 MG, WEEKLY [code = SKILLED NURSE FOR ADMINISTRATION AND TEACHING OF PRESCRIBED INJECTION THERAPY FOR MOUNJARO 2.5 MG/0.5 ML SUBCUTANEOUS PEN INJECTOR2.5 MG, WEEKLY] Future Scheduled Test PATIENT MA Y HAVE ONE SET OF EMERGENCY MEDICATION NOT TO BE PRE-POURED ANY SOONER THAN 24 HOURS BEFORE SEVERE INCLEMENT WEATHER OR EMERGENT EVENT AND FOLLOWING SKILLED NURSE EVALUATION OF PATIENT SAFETY. [code = PATIENT MAY HAVE ONE SET OF EMERGENCY MEDICATION NOT TO BE PRE-POURED ANY SOONER THAN 24 HOURS BEFORE SEVERE INCLEMENT WEATHER OR EMERGENT EVENT AND FOLLOWING SKILLED NURSE EVALUATION OF PATIENT SAFETY.] Future Scheduled Test SKILLED NU RSE FOR O/A OF ALTERED THOUGHT PROCESS AND/OR DISRUPTION IN COGNITIVE OPERATIONS AND ACTIVITIES [code = SKILLED NURSE FOR O/A OF ALTERED THOUGHT PROCESS AND/OR DISRUPTION IN COGNITIVE OPERATIONS AND ACTIVITIES] Future Scheduled Test MEDICATION S WILL BE HELD AND STORED IN LOCKBOX [code = MEDICATIONS WILL BE HELD AND STORED IN LOCKBOX] Future Scheduled Test SKILLED NU RSE FOR O/A AND SKILLED TEACHING OF COPING SKILLS TO MANAGE ANXIETY AND MAINTAIN SAFETY. [code = SKILLED NURSE FOR O/A AND SKILLED TEACHING OF COPING SKILLS TO MANAGE ANXIETY AND MAINTAIN SAFETY.] Future Scheduled Test SKILLED NU RSE FOR O/A AND TEACHING OF DIABETIC MANAGEMENT INCLUDING BLOOD SUGAR MONITORING/USE OF GLUCOMETER, DIABETIC DIET, LOWER EXTREMITY SKIN INSPECTION, PROPER SKIN/FOOT CARE, AND SIGNS AND SYMPTOMS HYPO/HYPERGLYCEMIA TO REPORT. [code = SKILLED NURSE FOR O/A AND TEACHING OF DIABETIC MANAGEMENT INCLUDING BLOOD SUGAR MONITORING/USE OF GLUCOMETER, DIABETIC DIET, LOWER EXTREMITY SKIN INSPECTION, PROPER SKIN/FOOT CARE, AND SIGNS AND SYMPTOMS HYPO/HYPERGLYCEMIA TO REPORT.] Future Scheduled Test SKILLED NU RSE WILL MAINTAIN SITUATIONAL AWARENESS FOR SAFETY AND WILL NOTIFY CLINICAL STUDENT TEACHING COORDINATOR AND PHYSICIAN/PROVIDER WITH ANY CHANGE IN CONDITION. [code = SKILLED NURSE WILL MAINTAIN SITUATIONAL AWARENESS FOR SAFETY AND WILL NOTIFY CLINICAL STUDENT TEACHING COORDINATOR AND PHYSICIAN/PROVIDER WITH ANY CHANGE IN CONDITION.] [...] ACCESS COMMUNITY RESOURCES AND PSYCHOSOCIAL SUPPORT SERVICES.] Goal 2023-06-23 Patient Goal - MANAGE MY [...] CARE WILL BE ESTABLISHED THAT MEETS PATIENT'S HALF-WAY NEEDS AND INCLUDES PATIENT GOAL FOR HOME HEALTH. Goal Provider Goal - PATIENT/CAREGIVER WILL VERBALIZE/DEMONSTRATE [...] PERIOD. Goal Provider Goal - PATIENT WILL RECEIVE MOUNJARO 2.5 MG/0.5 ML SUBCUTANEOUS PEN INJECTOR2.5 MG, WEEKLY ORDERED. PATIENT/CAREGIVER WILL VERBALIZE/DEMONSTRATE KNOWLEDGE OF INJECTION THERAPY BY THE END OF THE CERTIFICATION PERIOD. Goal Provider Goal - MEDICATION WILL BE AVAILABLE DURING INCLEMENT WEATHER OR EMERGENT EVENT THROUGHOUT CERTIFICATION PERIOD. Goal Provider Goal - PATIENT WILL BE ABLE TO PERFORM DAILY FUNCTIONS AND HAVE OPTIMAL IMPROVEMENT IN THOUGHT PROCESS THROUGHOUT CERTIFICATION PERIOD. Goal Provider Goal - MEDICATION WILL BE STORED IN LOCKBOX FOR SAFETY. Goal Provider Goal - PATIENT WILL BE ABLE TO PERFORM DAILY FUNCTIONS AND HAVE OPTIMAL IMPROVEMENT IN LEVEL OF ANXIETY THROUGHOUT CERTIFICATION PERIOD. Goal Provider Goal - PATIENT/CAREGIVER WILL VERBALIZE/DEMONSTRATE KNOWLEDGE OF DIABETIC MANAGEMENT. CHANGES IN DIABETIC STATUS WILL BE IDENTIFIED AND REPORTED TO PHYSICIAN FOR PROMPT INTERVENTION THROUGHOUT THE CERTIFICATION PERIOD. Goal Provider Goal - PATIENT WILL REMAIN SAFE IN THE COMMUNITY AND WILL BE FREE OF DANGER TO SELF AND OTHERS THROUGHOUT THE CERTIFICATION PERIOD. Goal Provider Goal - PSYCHOSOCIAL NEEDS WILL BE IDENTIFIED AND PLAN IMPLEMENTED TO MINIMIZE RISK THROUGHOUT CERTIFICATION PERIOD. Progress Notes Progress Notes <paragraph>[Visit Date: 2024 by ROSA TORIBIO RN]:</paragraph><paragraph>05/30/25- [facility] ASSESS MENTAL HEALTH STATUS SAFETY MEDICATION COMPLIANCE SKILLED NURSE ASSISTED. ... MEDICATIONS PRE POURED FROM 5 P.M. THROUGH 5 A.M. PATIENT PROMPTED TO SELF-ADMINISTER MOUNJARO 5 MG SQ INTO LEFT ABDOMEN </paragraph><paragraph></paragraph><paragraph>SAW PCP MEDICATION CHANGE INCREASE MOUNJARO 5 MG SQ WEEKLY </paragraph><paragraph>08/31/25 2:45 AM</paragraph><paragraph>A1C DECREASED TO 6.6 FROM 7.2</paragraph><paragraph>PATIENT COMPLIANT WITH PREFILLED MEDICATIONS FROM LAST WEEK ALL MEDICATIONS SECURED IN LOCKBOX FOR SAFETY. NO WILLING CAREGIVER TO ASSIST ...</paragraph> Encounters Start Date/Time End Date/Time Encounter Type Admission Type Attending [facility] Care Department Encounter ID Discharge Date Discharge Status Discharge Condition Discharge Reason Percent Goals Met 2025-04-17 00:00:00 2025-06-15 00:00:00 Outpatient RECERTIFIC ATION ROSA TORIBIO [facility] [id number] 0.00
== END 2025-06-01 11:59 | disposition home or self-care (01) ==
LOC: HO.HGS 11:23
PROVIDERS: PCP Internal Medicine; Visit Provider Physician Assistant Surgical
DX: C50.911 Malignant neoplasm of unspecified site of right female breast (principal)
CPT/HCPCS: 99213

== ENCOUNTER → 2025-06-01 11:22 | Outpatient (BNVA) | payer MEDICARE, MEDICAID, SELFPAY | PROVIDERS: PCP Internal Medicine; Visit Provider Physician Assistant Surgical | DX: C50.911 Malignant neoplasm of unspecified site of right female breast (principal); Z79.890 Hormone replacement therapy; Z08 Encounter for follow-up examination after completed treatment for malignant neoplasm; E66.9 Obesity, unspecified; Z68.37 Body mass index [BMI] 37.0-37.9, adult | CPT/HCPCS: 99212 ==

== ENCOUNTER 2025-07-13 14:14 | Outpatient (AMB) | payer MEDICARE, MEDICAID, SELFPAY ==
[2025-07-13 14:24] VITALS: BP 112/66; PULSE 103; RESP 18; O2SAT 97; BMI 37.3
--- NOTE | 2025-07-13 14:27 | A.OFFVIS_ITS ---
Intake Vital Signs 07/13/25 14:24 Height 5 ft 2 in Weight 204 lb 2 oz BMI 37.3 BP 112/66 Blood Pressure Location Lt brachial Position Sitting Respiration 18 Pulse 103 H Pulse Source Pulse Oximeter Temp Source Temporal Artery Scan Pulse Oximetry (%) 97 Oxygen Delivery Method Room Air Intake Visit Reasons: V G0439 Automatic Machine Attendant Required: No Accompanied by: Self / Same As Patient Allergies lisinopril (LISINOPRIL) Allergy (Unknown, Verified 07/13/25 14:34) SWOLLEN LIPS, angioedema, swelling Medication List - Last Reconciled 07/13/25 by Liss Moctezuma MD blood sugar diagnostic (FreeStyle Lite Strips) As directed check the BS once daily blood-glucose meter (FreeStyle Lite Meter kit) As directed blood-glucose sensor ([email or web address] G7 Sensor device) As directed blood-glucose,pharmacy director,cont ([employer] G7 Contact Worker [employer]) As directed cholecalciferol (vitamin D3) (Vitamin D3) 10 mcg PO DAILY clozapine orally; ; 50mg in am 250mg at night [diabetic shoes As direct Prosthetic and orthotics solutions] docusate sodium 100 mg PO BEDTIME empagliflozin (Jardiance) 25 mg PO DAILY lancets (FreeStyle Lancets) once a day letrozole 2.5 mg PO DAILY leuprolide acetate (3 month) (Lupron Depot) 22.5 mg IM [id number] lorazepam orally; 0.5 mg in am 1 tab in pm losartan 25 mg PO DAILY 90 days lurasidone (Latuda) 80 mg PO 1800 metformin 1,000 mg PO BID metoprolol succinate ER 25 mg PO DAILY multivitamin 1 tab PO DAILY omeprazole 20 mg PO DAILY pregabalin 50 mg PO BEDTIME pregabalin (Lyrica) 50mg at 7:30am, 50mg at 7pm, and 100mg at 9pm orally ; 30 days simvastatin 10 mg PO BEDTIME tirzepatide 7.5 mg (0.5 mL) subcut QWEEK trazodone 50 mg PO BEDTIME PRN HPI SWV G0439 HPI Details [place], [facility] neurology is [facility] Hematology-Oncology Dr. Mora surgery Dr. Holden [facility]. has a fall getting out of care , HPI Comments History of Present Illness Details History of Present Illness The patient is a 54-year-old obese female presenting for an annual wellness visit. Her medical history includes diabetes mellitus, GERD, hypertension, hypercholesterolemia, hearing loss, and schizoaffective disorder. She has a history of right breast cancer diagnosed in 2020 and follows up with hematology-oncology. She started Lupron for ovarian suppression in November 2022 and was switched from tamoxifen to letrozole 2.5 mg daily in January 2023, which she will continue for 5 years. For her diabetes, her last hemoglobin A1c in April was 6.6%. For hypercholesterolemia, cholesterol testing in September 2024 showed an LDL of 82. For her schizoaffective disorder, she is followed by a psychiatrist, Marissa Hogue, for medication management. She was seen by ophthalmology on June 08, with no retinopathy noted, but was diagnosed with low-risk open-angle glaucoma and exotropia. She was advised to get a second opinion and has an appointment with Dr. Carrillo on July 31. For weight management, she is on tirzepatide 5 mg weekly and her weight has decreased from 207 lbs in May to 204 lbs currently. She also takes pregabalin 50 mg twice a day for neuropathy. Health maintenance screenings are up to date, including a mammogram in April 2025, a colonoscopy in December 2022, and a bone density scan in November 2022. Her vaccinations, including tetanus, pneumonia, and flu shots, are also current. Recently, she lost a tooth before Thanks and has an appointment with an oral surgeon for a possible implant on July 31. She also reports falling the day before Thanksgi after losing her balance, with a prior fall earlier in the year from tripping over herself. Health Maintenance The patient is up to date with her mammogram, colonoscopy, and immunizations (tetanus, pneumonia, flu). We discussed the shingles vaccine, which she can obtain at a pharmacy. A lab requisition was provided for fasting blood work to be done before her next appointment on September 01. Social History - Substance use: Denies any history of t obacco or alcohol use. - Functional status: Reports recurrent f alls, with the most recent one occurring the day before Thanksgiving due to losing her balance. She had another fall at the beginning of the year from tripping over herself. - Nutrition/Hydration: Acknowledges she does not drink enough water during the day. - Weight management: Has lost 3 pounds s malena her last visit in May. - Psychiatric care: Actively sees a psyc hiatrist, Marissa Hogue, for medication management. Results - Labs: - Hemoglobin A1c (April): 6.6%. - Complete blood count (January 2025): Norm al. - Electrolytes: Normal. - Cholesterol panel (September 2024): LDL 82 mg/dL. - Tests and Diagnostics: - Mammogram (April 2025): Up to date. - Colonoscopy (December 2022): Up to date. - Bone density scan (November 2022): Complete d. - Ophthalmology exam (May): No reti nopathy; findings of low-risk open-angle glaucoma and exotropia. FORMERLY [facility], [facility]–1983 Medical History Anemia Tachycardia Overweight (BMI 25.0-29.9) Microangiopathy Left leg paresthesias COVID-19 virus infection Schizoaffective disorder Colon cancer screening Breast cancer Arthritis Depression Hiatal hernia Hearing loss Facial paralysis Schizophrenia Obesity Iron deficiency anemia Hypertension Hypercholesterolemia GERD (gastroesophageal reflux disease) Type 2 diabetes mellitus with hyperglycemia Surgical History History of removal of Port-a-Cath History of lumpectomy of right breast Hemiparesis History of eye surgery History of placement of ear tubes Family History Father Medical history unknown Mother Medical history unknown Social History Household Members: Significant Other Housing: Condominium Are you a primary critical care physician assistant to a significant other at home: No Do you presently have visiting nurse or other home services: Yes Alcohol intake: never Patient Tobacco Use Status: Never used Tobacco Tobacco use type: Cigarette e-Cigarette/Vaping Use: Never Used Second Hand Smoke Exposure: No Advance Directives Date on File: 06/24/21 service: No Current occupational status: unemployed Sexual orientation: Lesbian/Reyes/Homosexual Cognitive needs: No Hearing needs: Yes (hearing aides) Vision needs: Yes (glasses) Female Reproductive History Menstrual Age of Menarche: 13 Questionnaire Medicare Wellness Checkup What gender do you identify with?: female During the past 4 weeks, how much have you been bothered by emotional problems such as feeling anxious, depressed, irritable, sad or downhearted, and blue?: slightly During the past 4 weeks, has your physical & emotional health limited your social activities with family, friends, neighbors, or groups?: not at all During the past 4 weeks, how much bodily pain have you generally had?: mild pain During the past 4 weeks, was someone available to help you if you needed & wanted help?: yes, some During the past 4 weeks, what was the hardest physical activity you could do for at least 2 minutes?: moderate Can you get to places out of walking distance without help? (For eg., can you travel alone on buses, taxis or drive your car?): Yes Can you go shopping for groceries or clothes without someone's help?: Yes Can you prepare your own meals?: Yes Can you do your housework without help?: Yes Because of any health problems, do you need the help of another person with your personal care needs such as eating, bathing, dressing or getting around the house?: No Can you handle your own money without help?: Yes During the past 4 weeks, how would you rate your health in general?: good During the past 4 weeks how have things been going for you?: good & bad parts about equal Are you having difficulties driving your car?: no Do you always fasten your seat belt when you are in a car?: yes, usually During past 4 weeks, have you been bothered by the following: never: Sexual problems? and Problems using the telephone?, seldom: Falling or dizzy when standing up and Trouble eating well?, sometimes: Tiredness or fatigue? and often: Teeth or denture problems? Have you fallen 2 or more times in the past year?: Yes Are you afraid of falling?: Yes Are you a smoker?: no During the past 4 weeks, how many drinks of wine, beer, or other alcoholic beverages did you have?: no alcohol at all Do you exercise for about 20 minutes 3 or more times a week?: yes, some of the time Have you been given information to help with the following?: yes: Keeping track of your medications? and no: Hazards in your house that might hurt you? How often do you have trouble taking medicines the way you have been told to take them?: sometimes I take medicine as prescribed How confident are you that you can control & manage most of your health problems?: somewhat confident What is your race?: Black or PHQ-9 Over the last 2 weeks, how often have you been bothered by any of the following problems? 1. Little interest or pleasure in doing things: not at all 2. Feeling down, depressed, or hopeless: several days 3. Trouble falling or staying asleep, or sleeping too much: several days 4. Feeling tired or having little energy: nearly every day 5. Poor appetite or overeating: several days 6. Feeling bad about yourself - or that you are a failure or have let yourself or your family down: more than half the days 7. Trouble concentrating on things, such as reading the newspaper or watching television: several days 8. Moving or speaking so slowly that other people could have noticed. Or the o pposite - being so fidgety or restless that you have been moving around a lot more than usual: not at all 9. Thoughts that you would be better off or of hurting yourself in some way: not at all Total score: 9 [id number] - PHQ-9 Billing: Yes Source: Developed by Drs. Baldev Floyd, Елена Wolff, Sina Reyes and colleagues, with an educational patti from [employer]. Review of Systems Narrative Review of Systems - General: Denies fevers and syncope. Reports occasional dizziness that is not worsening. Reports pain after her recent pneumonia shot. Reports two falls within the last year. - Eyes: Reports some pressure in her eyes. - Ears/Nose/Throat: Acknowledges a history of hearing loss. Denies dysphagia. Reports a missing tooth that fell out. - Cardiovascular: Denies chest pain, heaviness, or waking up with shortness of breath. - Gastrointestinal: Denies nausea, vomiting, or heartburn. Reports normal bowel movements. - Genitourinary: Denies nocturia. - Neurological: Reports numbness in both feet. Reports occasional dizziness. Const Denies poor appetite and Denies weakness Eyes Denies no additional complaints ENT Reports Normal hearing present, Denies dizziness, Denies nasal congestion, Denies tinnitus and Denies sore throat Card Denies chest pain, Denies syncope, Denies rapid heart rate and Denies dyspnea Resp Denies cough and Denies dyspnea GI Denies change in stool character, Reports constipation, Denies diarrhea, Denies nausea and Denies vomiting Denies urinary frequency, Denies difficulty voiding and Denies dysuria Neuro Reports Normal hearing present, Denies confusion, Denies dizziness, Denies syncope and Denies weakness Psych Denies confusion Physical Exam Exam Exam: Physical Exam General: Cooperative, healthy appearing, comfortable, no acute distress and well developed Orientation: Patient oriented x3 Limitations: No limitations Head: Normal to inspection Ears: Hearing loss noted Nose: Normal external nose present Face and sinus: Normal facial exam Eyes: Appearance normal, both eyes and all related structures; some pressure in the eye noted, keeping an eye on it Neck: Normal visual inspection and Yes full ROM Respiratory: Normal respiratory effort and able to speak in complete sentences. Clear to auscultation bilaterally Cardiovascular: Regular rate and rhythm. Normal S1 and S2 GI: Normal to inspection. Soft to palpation and nontender Skin: No rashes or lesions noted Neuro: Patient oriented x3; reports dizziness sometimes, no worsening Extremities: Normal to inspection; numbness in both feet noted, patient can feel light touch on feet Vital Signs: Last Vital Signs Pulse 103 H 07/13/25 14:24 Resp 18 07/13/25 14:24 BP 112/66 07/13/25 14:24 Pulse Ox 97 07/13/25 14:24 Oxygen Delivery Method Room Air 07/13/25 14:24 BMI result Body Mass Index 37.3 Const General: No confusion Orientation/consciousness: No confusion HEENT Head: Yes normocephalic Ears: external ears normal and TM's normal bilaterally Face and sinus: Yes normal facial exam Mouth: moist mucous membranes Throat: Yes tonsils normal Eyes Conjunctivae: conjunctivae normal Pupils: Equal, round and reactive pupils present and Pupil accommodation reflex normal Direct Ophthalmoscopy: normal light reflex Neck Neck: No lymphadenopathy Thyroid: Thyroid normal Chest Chest palpation & inspection: normal inspection of the chest Resp Effort & Inspection: normal respiratory effort and no audible wheezes Auscultation: clear to auscultation bilaterally, no crackles, no wheezes and lung sounds not diminished Cardio Rate: regular rate Rhythm: regular rhythm Peripheral pulses: radial pulses present and dorsalis pedis present GI Palpation (GI): no masses Auscultation: normal bowel sounds and normoactive bowel sounds Rectal Exam - Female: deferred Skin General skin exam: no rashes or lesions noted Rashes: no rashes Neuro General: No confusion Cranial nerves: Yes Equal, round and reactive pupils present and Yes Normal hearing present Cognition (Neuro): normal cognition Gait exam (Neuro): Normal gait present Motor exam (neuro): 5/5 motor strength present throughout Deep tendon reflexes (DTR's): Right brachioradialis reflex intensity grade: 2+, Left brachioradialis reflex intensity grade: 2+, Right patellar reflex intensity grade: 2+ and Left patellar reflex intensity grade: 2+ Extrem General: No edema Assessment & Plan Assessment & Plan (1) Medicare annual wellness visit, subsequent: Code(s): Z00.00 - Encounter for general adult medical examination without abnormal findings Plan: Patient is advised to eat healthy, keep well hydrated, keep active and have adequate sleep. (2) Type 2 diabetes mellitus with hyperglycemia: Comment: Dr. Sanz Code(s): E11.65 - Type 2 diabetes mellitus with hyperglycemia Qualifiers: Diabetes mellitus terminal gauger insulin use: without terminal gauger use Qualified Code(s): E11.65 - Type 2 diabetes mellitus with hyperglycemia Plan: Decrease the amount of carbohydrate intake, pasta, bread, rice and potatoes are all sugar and that is aside from all the sweet stuff, remember that fruits are good but they are Sweet also. On Jardiance 25 mg once a day metformin a 1000 mg twice a day and tirzepatide 5 mg once a week (3) Hypertension: Code(s): I10 - Essential (primary) hypertension Qualifiers: Hypertension type: essential hypertension Qualified Code(s): I10 - Essential (primary) hypertension Plan: Continue with blood pressure medication. Decrease salt intake and exercise on metoprolol 25 mg once a day losartan 25 mg once a day (4) Hypercholesterolemia: Code(s): E78.00 - Pure hypercholesterolemia, unspecified Plan: Avoid fried foods, chicken skin, eggs, butter margarine, pastries and meat. Be it pork or beef they have a lot of cholesterol LDL goal of less than 100 and triglyceride of less than 150 on simvastatin 10 mg at bedtime (5) GERD (gastroesophageal reflux disease): Code(s): K21.9 - Gastro-esophageal reflux disease without esophagitis Qualifiers: Esophagitis presence: without esophagitis Qualified Code(s): K21.9 - Gastro-esophageal reflux disease without esophagitis Plan: Avoid the foods that causes that usually spicy foods, tomato products, juices, coffee, soda and foods that your sensitive to. After eating do not lie down, allow 3-4 hours before in lie down. And keep the head of bed above 30 degrees to avoid the acid from going up. (6) Left leg paresthesias: Comment: likely peripheral neuropathy ? diabetic worsened by Chemo Code(s): R20.2 - Paresthesia of skin Plan: presently on pregabalin Plan Plan Patient was informed and verbally consented to the use of an ambient scribe for clinic note documentation during this visit. 1. Obesity The patient has lost 3 pounds since May, with her current weight at 204 lbs. To support continued weight loss, her tirzepatide dose will be increased from 5 mg to 7.5 mg weekly. She was advised to maintain good hydration and continue healthy eating habits. 2. Hypertension Her blood pressure is well controlled on her current regimen of metoprolol 25 mg daily and losartan 25 mg daily. She will continue her current medications without change. 3. Hypercholesterolemia Her LDL cholesterol goal is less than 100 mg/dL, and her last test result in September 2024 was 82 mg/dL. She will continue taking simvastatin 10 mg at bedtime. A fasting lipid panel is included in the new lab order. 4. History Of Right Breast Cancer The patient continues to follow up with hematology-oncology. She is on letrozole 2.5 mg daily and Lupron for ovarian suppression. Her mammogram is up to date, and she will continue her current management plan. 5. Low-Risk Open-Angle Glaucoma The patient was seen by ophthalmology and diagnosed with low-risk open-angle glaucoma. She was advised to seek a second opinion and has an appointment scheduled with Dr. Carrillo on July 31. She will continue with her scheduled ophthalmology follow-up. 6. Recurrent Falls The patient has a history of recurrent falls, with two incidents this year, the most recent being the day before . She agrees to a referral for physical therapy to address her balance issues. She declined the offer of a cane at this time. The importance of fall prevention was emphasized. 7. Type 2 Diabetes Mellitus The patient's last hemoglobin A1c was 6.6%. She is currently taking Jardiance 25 mg daily, metformin 1000 mg twice daily, and tirzepatide 5 mg weekly. Due to good tolerance and a desire for further weight loss, the tirzepatide dose will be increased to 7.5 mg weekly. A new prescription for tirzepatide 7.5 mg will be sent to [place]. Fasting blood work, including a hemoglobin A1c, has been ordered to be completed before her next follow-up. Discussion Notes I reviewed the patient's extensive medical history and current medication list, confirming her adherence. We discussed her weight loss on tirzepatide, noting a 3-pound decrease since her last visit. She tolerated the current dose well without nausea, so we agreed to increase the tirzepatide dose from 5 mg to 7.5 mg weekly to promote further weight loss, and I sent the prescription to her pharmacy. I noted her recent lab work, including an HbA1c of 6.6 and an LDL of 82, and confirmed her blood pressure is well controlled. We discussed her recent history of falls, and I expressed concern for her safety, recommending physical therapy, which she agreed to. I offered a cane, but she declined. I confirmed that her health maintenance screenings, including her mammogram, colonoscopy, and vaccinations, are up to date. A new lab request was provided for fasting blood work to be completed before her follow-up visit on September 01. I advised her to stay well-hydrated and to be careful to prevent falls. Patient Instructions - Increase your Mounjaro (tirzepatide) injection to the new dose of 7.5 mg once a week. I have sent this new prescription to your pharmacy. - Continue taking all your other daily medications as prescribed. - Please get your blood work done before your next visit. You will need to fast for this test. - We have scheduled you for a physical therapy evaluation to help with your balance and prevent falls. Please be very careful walking to avoid falling again. - Remember to drink plenty of water every day. - Keep your scheduled appointment with the coastal and estuary specialist, Dr. Carrillo, on July 31. - Your next appointment with me is on September 01. - If you choose to get the shingles vaccine, it is available at your pharmacy. - Please call the office if you need any prescription refills or have other questions. Orders: Orders Comprehensive Met. Panel 3 Months E11.65 - Type 2 diabetes mellitus with hyperglycemia Creatinine Urine 3 Months E11.65 - Type 2 diabetes mellitus with hyperglycemia Microalbumin, Random (w Creat) 3 Months E11.65 - Type 2 diabetes mellitus with hyperglycemia Lipid Panel 3 Months E11.65 - Type 2 diabetes mellitus with hyperglycemia, E78.00 - Pure hypercholesterolemia, unspecified Free T4 (Free Thyroxine) 3 Months E11. - Type 2 diabetes mellitus with hyperglycemia Hemoglobin A1c 3 Months E11. - Type 2 diabetes mellitus with hyperglycemia Vitamin B12 and Folate 3 Months E11. - Type 2 diabetes mellitus with hyperglycemia Complete Blood Count Auto Diff 3 Months E11. - Type 2 diabetes mellitus with hyperglycemia Thyroid Stimulating Hormone 3 Months E11. - Type 2 diabetes mellitus with hyperglycemia Vitamin D 25-OH Total 3 Months E11. - Type 2 diabetes mellitus with hyperglycemia UA CC w/rflx Micro + Cult 3 Months E11. - Type 2 diabetes mellitus with hyperglycemia, R30.0 - Dysuria Medications: Changed From tirzepatide for 4 weeks 5 mg (0.5 mL) subcut QWEEK 2 mL 3RF E11.65 - Type 2 diabetes mellitus with hyperglycemia To tirzepatide for 4 weeks 7.5 mg (0.5 mL) subcut QWEEK 2 mL 3RF E11.65 - Type 2 diabetes mellitus with hyperglycemia Quality Reporting (2019) Depression/Bipolar (159/160/161/177) PHQ-9: Total score: 9 Coding Level of Care Code Medicare Subsequent (G0439) Diagnoses Medicare annual wellness visit, subsequent Z00.00 Type 2 diabetes mellitus with hyperglycemia, without long-term current use of insulin E11. Diabetes mellitus fdc insulin use: without terminal gauger use Essential hypertension I10 Hypertension type: essential hypertension Hypercholesterolemia E78.00 Gastroesophageal reflux disease without esophagitis K21.9 Esophagitis presence: without esophagitis Left leg paresthesias R20.2 Additional Codes PHQ-9 - 14469 - PHQ-9 Billing: Yes ([id number])
--- OUTSIDE RECORDS SUMMARY | 2025-07-13 18:29 | XMS_ITS | Encounter Summary ---
Author Organization [facility] Address [address] [place] [id number] Phone Care Team Providers Care Compliance Manager Name Role Phone Liss Moctezuma MD Primary Care Provider [phone] Encounter Details Date Type Department Care Team (Late st Contact Info) Description 07/23/2017 Transcribe Orders [facility] Main [address] [place] [address] Timothy Aleman MD [address] [place] [address] History of regular medication use (Primary Dx) [...] EST) WBC 9.24 3.40 - 11.20 K/uL [facility] RBC 4.38 3.80 - 4.80 M/uL [facility] HGB 11.8(L) 12.0 - 15.0 g/dL [facility] HCT 37.1 36.0 - 46.0 % [facility] PLT 340 130 - 400 K/uL [facility] MCV 84.7 79.0 - 98.0 fL [facility] MCH 26.9(L) 27.0 - 34.8 pg [facility] MCHC 31.8 31.5 - 36.0 g/dL [facility] RDW 15.8(H) 10.8 - 14.6 % [facility] MPV 10.8 9.4 - 12.4 fl [facility] NRBC 0.00 /100 WBCs [facility] ABSOLUTE NRBC 0.00 K/uL [facility] DIFF METHOD Auto [facility] NEUTS 59.2 45.30 - 77.70 % [facility] LYMPHS 36.3 12.30 - 39.70 % [facility] MONOS 3.9(L) 4.10 - 12.80 % [facility] EOS 0.0 0 - 7.2 % [facility] BASOS 0.3 0 - 2.80 % [facility] Granulocytes, immature (%) 0.3 0.0 - 0.9 % [facility] ABSOLUTE NEUTS 5.47 1.40 - 7.70 K/uL [facility] ABSOLUTE LYMPHS 3.35(H) 0.60 - 3.20 K/uL [facility] ABSOLUTE MONOS 0.36 0.11 - 0.59 K/uL [facility] ABSOLUTE EOS 0.00(L) 0.01 - 0.50 K/uL [facility] ABSOLUTE BASOS 0.03 0.00 - 0.08 K/uL [facility] Granulocytes, immature 0.03 0.00 - 0.05 K/uL [facility] Blood 07/23/2017 10:2 5 AM EST 07/23/2017 10:26 AM EST us Timothy Aleman MD LAB BLOOD BKR ORDERABLES Fi nal Result [facility] [address] [place] [address] documented in this encounter Visit Diagnoses Diagnosis History of regular medication use- Primary documented in this encounter Care Teams Compliance Manager Relationship Specialty Start Date End Date Lsis Moctezuma MD [address] [place] [id number] PCP - General Internal Medicine 06/01/17 documented as of this encounter Additional Source Comments The information contained in this document represents components of the legal health record. It is not the complete legal health record.[facility]
--- OUTSIDE RECORDS SUMMARY | 2025-07-13 18:29 | XMS_ITS | Encounter Summary ---
Author Organization [facility] Address [address] [place] [address] Phone Care Team Providers Care Review Manager Name Role Phone Liss Moctezuma MD Primary Care Provider [phone] Encounter Details Date Type Department Care Team (Late st Contact Info) Description 12/26/2021 Ancillary Orders [facility],Outside Imaging [address] [place], [place] [id number] System, Provider Not In, [place] [address] Social History Tobacco Use Types Packs/Day Years [...] on filedocumented in this encounter Care Teams Review Manager Relationship Specialty Start Date End Date Liss Moctezuma MD [address] [place] [address] PCP - General Internal Medicine 06/01/17 documented as of this encounter Additional Source Comments The information contained in this document represents components of the legal health record. It is not the complete legal health record.[facility]
--- OUTSIDE RECORDS SUMMARY | 2025-07-13 18:29 | XMS_ITS | Encounter Summary ---
Author Organization [facility] Address [address] [place] [address] Phone Care Team Providers Care Clinical Trainer Name Role Phone Liss Moctezuma MD Primary Care Provider [phone] Encounter Details Date Type Department Care Team (Late st Contact Info) Description 08/20/2017 Transcribe Orders [facility] [address] [place] [address] Timothy Aleman MD [address] [place] [address] Diagnosis unknown (Primary Dx) Social History Tobacco [...] EST) WBC 10.82 3.40 - 11.20 K/uL [facility] RBC 4.32 3.80 - 4.80 M/uL [facility] HGB 11.9(L) 12.0 - 15.0 g/dL [facility] HCT 36.9 36.0 - 46.0 % [facility] PLT 359 130 - 400 K/uL [facility] MCV 85.4 79.0 - 98.0 fL [facility] MCH 27.5 27.0 - 34.8 pg [facility] MCHC 32.2 31.5 - 36.0 g/dL [facility] RDW 16.3(H) 10.8 - 14.6 % [facility] MPV 10.8 9.4 - 12.4 fl [facility] NRBC 0.00 0.00 /100 WBCs [facility] ABSOLUTE NRBC 0.00 0.00 K/uL [facility] DIFF METHOD Auto [facility] NEUTS 55.9 45.30 - 77.70 % [facility] LYMPHS 38.7 12.30 - 39.70 % [facility] MONOS 4.8 4.10 - 12.80 % [facility] EOS 0.0 0 - 7.2 % [facility] BASOS 0.3 0 - 2.80 % [facility] Granulocytes, immature (%) 0.3 0.0 - 0.9 % [facility] ABSOLUTE NEUTS 6.05 1.40 - 7.70 K/uL [facility] ABSOLUTE LYMPHS 4.19(H) 0.60 - 3.20 K/uL [facility] ABSOLUTE MONOS 0.52 0.11 - 0.59 K/uL [facility] ABSOLUTE EOS 0.00(L) 0.01 - 0.50 K/uL [facility] ABSOLUTE BASOS 0.03 0.00 - 0.08 K/uL [facility] Granulocytes, immature 0.03 0.00 - 0.05 K/uL [facility] Blood 06/28/2018 4:16 PM EST 06/28/2018 4:18 PM EST us Timothy Aleman MD LAB BLOOD BKR ORDERABLES Fi nal Result [address] [address] * (ABNORMAL) CBC and differential (05/31/2018 11:14 AM EST) WBC 12.21(H) 3.40 - 11.20 K/uL [facility] RBC 4.32 3.80 - 4.80 M/uL [facility] HGB 11.8(L) 12.0 - 15.0 g/dL [facility] HCT 36.6 36.0 - 46.0 % [facility] PLT 357 130 - 400 K/uL [facility] MCV 84.7 79.0 - 98.0 fL [facility] MCH 27.3 27.0 - 34.8 pg [facility] MCHC 32.2 31.5 - 36.0 g/dL [facility] RDW 16.0(H) 10.8 - 14.6 % [facility] MPV 10.6 9.4 - 12.4 fl [facility] NRBC 0.00 0.00 /100 WBCs [facility] ABSOLUTE NRBC 0.00 0.00 K/uL [facility] DIFF METHOD Auto [facility] NEUTS 67.7 45.30 - 77.70 % [facility] LYMPHS 28.3 12.30 - 39.70 % [facility] MONOS 3.4(L) 4.10 - 12.80 % [facility] EOS 0.0 0 - 7.2 % [facility] BASOS 0.2 0 - 2.80 % [facility] Granulocytes, immature (%) 0.4 0.0 - 0.9 % [facility] ABSOLUTE NEUTS 8.27(H) 1.40 - 7.70 K/uL [facility] ABSOLUTE LYMPHS 3.46(H) 0.60 - 3.20 K/uL [facility] ABSOLUTE MONOS 0.41 0.11 - 0.59 K/uL [facility] ABSOLUTE EOS 0.00(L) 0.01 - 0.50 K/uL [facility] ABSOLUTE BASOS 0.02 0.00 - 0.08 K/uL [facility] Granulocytes, immature 0.05 0.00 - 0.05 K/uL [facility] Blood 05/31/2018 11:1 4 AM EST 05/31/2018 11:16 AM EST us Timothy Aleman MD LAB BLOOD BKR ORDERABLES Fi nal Result [facility] [address] [place] [address] * (ABNORMAL) CBC and differential (05/04/2018 1:10 PM EDT) WBC 10.44 3.40 - 11.20 K/uL [facility] RBC 4.39 3.80 - 4.80 M/uL [facility] HGB 12.0 12.0 - 15.0 g/dL [facility] HCT 36.8 36.0 - 46.0 % [facility] PLT 365 130 - 400 K/uL [facility] MCV 83.8 79.0 - 98.0 fL [facility] MCH 27.3 27.0 - 34.8 pg [facility] MCHC 32.6 31.5 - 36.0 g/dL [facility] RDW 15.6(H) 10.8 - 14.6 % [facility] MPV 10.6 9.4 - 12.4 fl [facility] NRBC 0.00 /100 WBCs [facility] ABSOLUTE NRBC 0.00 K/uL [facility] DIFF METHOD Auto [facility] NEUTS 55.1 45.30 - 77.70 % [facility] LYMPHS 39.6 12.30 - 39.70 % [facility] MONOS 4.7 4.10 - 12.80 % [facility] EOS 0.1 0 - 7.2 % [facility] BASOS 0.3 0 - 2.80 % [facility] Granulocytes, immature (%) 0.2 0.0 - 0.9 % [facility] ABSOLUTE NEUTS 5.76 1.40 - 7.70 K/uL [facility] ABSOLUTE LYMPHS 4.13(H) 0.60 - 3.20 K/uL [facility] ABSOLUTE MONOS 0.49 0.11 - 0.59 K/uL [facility] ABSOLUTE EOS 0.01 0.01 - 0.50 K/uL [facility] ABSOLUTE BASOS 0.03 0.00 - 0.08 K/uL [facility] Granulocytes, immature 0.02 0.00 - 0.05 K/uL [facility] Blood 05/04/2018 1:10 PM EDT 05/04/2018 1:13 PM EDT us Timothy Aleman MD LAB BLOOD BKR ORDERABLES Fi nal Result [facility] [address] [place] [address] * (ABNORMAL) CBC and differential (04/09/2018 10:30 AM EDT) WBC 9.89 3.40 - 11.20 K/uL [facility] RBC 4.43 3.80 - 4.80 M/uL [facility] HGB 12.2 12.0 - 15.0 g/dL [facility] HCT 37.2 36.0 - 46.0 % [facility] PLT 366 130 - 400 K/uL [facility] MCV 84.0 79.0 - 98.0 fL [facility] MCH 27.5 27.0 - 34.8 pg [facility] MCHC 32.8 31.5 - 36.0 g/dL [facility] RDW 15.2(H) 10.8 - 14.6 % [facility] MPV 10.7 9.4 - 12.4 fl [facility] NRBC 0.00 /100 WBCs [facility] ABSOLUTE NRBC 0.00 K/uL [facility] DIFF METHOD Auto [facility] NEUTS 59.0 45.30 - 77.70 % [facility] LYMPHS 34.8 12.30 - 39.70 % [facility] MONOS 5.6 4.10 - 12.80 % [facility] EOS 0.0 0 - 7.2 % [facility] BASOS 0.3 0 - 2.80 % [facility] Granulocytes, immature (%) 0.3 0.0 - 0.9 % [facility] ABSOLUTE NEUTS 5.84 1.40 - 7.70 K/uL [facility] ABSOLUTE LYMPHS 3.44(H) 0.60 - 3.20 K/uL [facility] ABSOLUTE MONOS 0.55 0.11 - 0.59 K/uL [facility] ABSOLUTE EOS 0.00(L) 0.01 - 0.50 K/uL [facility] ABSOLUTE BASOS 0.03 0.00 - 0.08 K/uL [facility] Granulocytes, immature 0.03 0.00 - 0.05 K/uL [facility] Blood 04/09/2018 10:3 0 AM EDT 04/09/2018 10:33 AM EDT us Timothy Aleman MD LAB BLOOD BKR ORDERABLES Fi nal Result [facility] [address] [place] [address] * (ABNORMAL) CBC and differential (03/04/2018 2:36 PM EDT) WBC 11.50(H) 3.40 - 11.20 K/uL [facility] RBC 4.20 3.80 - 4.80 M/uL [facility] HGB 11.8(L) 12.0 - 15.0 g/dL [facility] HCT 35.6(L) 36.0 - 46.0 % [facility] PLT 347 130 - 400 K/uL [facility] MCV 84.8 79.0 - 98.0 fL [facility] MCH 28.1 27.0 - 34.8 pg [facility] MCHC 33.1 31.5 - 36.0 g/dL [facility] RDW 16.0(H) 10.8 - 14.6 % [facility] MPV 10.9 9.4 - 12.4 fl [facility] NRBC 0.00 /100 WBCs [facility] ABSOLUTE NRBC 0.00 K/uL [facility] DIFF METHOD Auto [facility] NEUTS 54.4 45.30 - 77.70 % [facility] LYMPHS 39.3 12.30 - 39.70 % [facility] MONOS 5.7 4.10 - 12.80 % [facility] EOS 0.0 0 - 7.2 % [facility] BASOS 0.3 0 - 2.80 % [facility] Granulocytes, immature (%) 0.3 0.0 - 0.9 % [facility] ABSOLUTE NEUTS 6.26 1.40 - 7.70 K/uL [facility] ABSOLUTE LYMPHS 4.52(H) 0.60 - 3.20 K/uL [facility] ABSOLUTE MONOS 0.66(H) 0.11 - 0.59 K/uL [facility] ABSOLUTE EOS 0.00(L) 0.01 - 0.50 K/uL [facility] ABSOLUTE BASOS 0.03 0.00 - 0.08 K/uL [facility] Granulocytes, immature 0.03 0.00 - 0.05 K/uL [facility] Blood 03/04/2018 2:36 PM EDT 03/04/2018 2:38 PM EDT us Timothy Aleman MD LAB BLOOD BKR ORDERABLES Fi nal Result [facility] [address] [place] [address] * (ABNORMAL) CBC and differential (02/08/2018 4:37 PM EDT) WBC 10.13 3.40 - 11.20 K/uL [facility] RBC 4.27 3.80 - 4.80 M/uL [facility] HGB 11.8(L) 12.0 - 15.0 g/dL [facility] HCT 35.9(L) 36.0 - 46.0 % [facility] PLT 347 130 - 400 K/uL [facility] MCV 84.1 79.0 - 98.0 fL [facility] MCH 27.6 27.0 - 34.8 pg [facility] MCHC 32.9 31.5 - 36.0 g/dL [facility] RDW 16.7(H) 10.8 - 14.6 % [facility] MPV 10.9 9.4 - 12.4 fl [facility] NRBC 0.00 /100 WBCs [facility] ABSOLUTE NRBC 0.00 K/uL [facility] DIFF METHOD Auto [facility] NEUTS 51.7 45.30 - 77.70 % [facility] LYMPHS 42.8(H) 12.30 - 39.70 % [facility] MONOS 4.9 4.10 - 12.80 % [facility] EOS 0.0 0 - 7.2 % [facility] BASOS 0.3 0 - 2.80 % [facility] Granulocytes, immature (%) 0.3 0.0 - 0.9 % [facility] ABSOLUTE NEUTS 5.23 1.40 - 7.70 K/uL [facility] ABSOLUTE LYMPHS 4.34(H) 0.60 - 3.20 K/uL [facility] ABSOLUTE MONOS 0.50 0.11 - 0.59 K/uL [facility] ABSOLUTE EOS 0.00(L) 0.01 - 0.50 K/uL [facility] ABSOLUTE BASOS 0.03 0.00 - 0.08 K/uL [facility] Granulocytes, immature 0.03 0.00 - 0.05 K/uL [facility] Blood 02/08/2018 4:37 PM EDT 02/08/2018 4:39 PM EDT Timothy Aleman MD LAB BLOOD BKR ORDERABLES Fi nal Result [facility] [address] [place] [address] * (ABNORMAL) CBC and differential (01/13/2018 9:15 AM EDT) WBC 9.75 3.40 - 11.20 K/uL [facility] RBC 4.25 3.80 - 4.80 M/uL [facility] HGB 11.6(L) 12.0 - 15.0 g/dL [facility] HCT 35.5(L) 36.0 - 46.0 % [facility] PLT 323 130 - 400 K/uL [facility] MCV 83.5 79.0 - 98.0 fL [facility] MCH 27.3 27.0 - 34.8 pg [facility] MCHC 32.7 31.5 - 36.0 g/dL [facility] RDW 16.8(H) 10.8 - 14.6 % [facility] MPV 10.6 9.4 - 12.4 fl [facility] NRBC 0.00 /100 WBCs [facility] ABSOLUTE NRBC 0.00 K/uL [facility] DIFF METHOD Auto [facility] NEUTS 57.3 45.30 - 77.70 % [facility] LYMPHS 37.8 12.30 - 39.70 % [facility] MONOS 4.4 4.10 - 12.80 % [facility] EOS 0.0 0 - 7.2 % [facility] BASOS 0.2 0 - 2.80 % [facility] Granulocytes, immature (%) 0.3 0.0 - 0.9 % [facility] ABSOLUTE NEUTS 5.58 1.40 - 7.70 K/uL [facility] ABSOLUTE LYMPHS 3.69(H) 0.60 - 3.20 K/uL [facility] ABSOLUTE MONOS 0.43 0.11 - 0.59 K/uL [facility] ABSOLUTE EOS 0.00(L) 0.01 - 0.50 K/uL [facility] ABSOLUTE BASOS 0.02 0.00 - 0.08 K/uL [facility] Granulocytes, immature 0.03 0.00 - 0.05 K/uL [facility] Blood 01/13/2018 9:15 AM EDT 01/13/2018 9:19 AM EDT Timothy Aleman MD LAB BLOOD BKR ORDERABLES Fi nal Result [facility] [address] [place] [address] * (ABNORMAL) CBC and differential (12/14/2017 4:18 PM EDT) WBC 10.35 3.40 - 11.20 K/uL [facility] RBC 4.32 3.80 - 4.80 M/uL [facility] HGB 11.8(L) 12.0 - 15.0 g/dL [facility] HCT 35.7(L) 36.0 - 46.0 % [facility] PLT 337 130 - 400 K/uL [facility] MCV 82.6 79.0 - 98.0 fL [facility] MCH 27.3 27.0 - 34.8 pg [facility] MCHC 33.1 31.5 - 36.0 g/dL [facility] RDW 15.9(H) 10.8 - 14.6 % [facility] MPV 11.1 9.4 - 12.4 fl [facility] NRBC 0.00 /100 WBCs [facility] ABSOLUTE NRBC 0.00 K/uL [facility] DIFF METHOD Auto [facility] NEUTS 50.6 45.30 - 77.70 % [facility] LYMPHS 43.1(H) 12.30 - 39.70 % [facility] MONOS 5.7 4.10 - 12.80 % [facility] EOS 0.0 0 - 7.2 % [facility] BASOS 0.3 0 - 2.80 % [facility] Granulocytes, immature (%) 0.3 0.0 - 0.9 % [facility] ABSOLUTE NEUTS 5.24 1.40 - 7.70 K/uL [facility] ABSOLUTE LYMPHS 4.46(H) 0.60 - 3.20 K/uL [facility] ABSOLUTE MONOS 0.59 0.11 - 0.59 K/uL [facility] ABSOLUTE EOS 0.00(L) 0.01 - 0.50 K/uL [facility] ABSOLUTE BASOS 0.03 0.00 - 0.08 K/uL [facility] Granulocytes, immature 0.03 0.00 - 0.05 K/uL [facility] Blood 12/14/2017 4:18 PM EDT 12/14/2017 4:21 PM EDT Timothy Aleman MD LAB BLOOD BKR ORDERABLES Fi nal Result [facility] [address] [place], [place] [id number] * (ABNORMAL) CBC and differential (11/16/2017 4:22 PM EDT) WBC 11.28(H) 3.40 - 11.20 K/uL [facility] RBC 4.20 3.80 - 4.80 M/uL [facility] HGB 11.5(L) 12.0 - 15.0 g/dL [facility] HCT 35.1(L) 36.0 - 46.0 % [facility] PLT 348 130 - 400 K/uL [facility] MCV 83.6 79.0 - 98.0 fL [facility] MCH 27.4 27.0 - 34.8 pg [facility] MCHC 32.8 31.5 - 36.0 g/dL [facility] RDW 16.3(H) 10.8 - 14.6 % [facility] MPV 10.8 9.4 - 12.4 fl [facility] NRBC 0.00 /100 WBCs [facility] ABSOLUTE NRBC 0.00 K/uL [facility] DIFF METHOD Auto [facility] NEUTS 55.7 45.30 - 77.70 % [facility] LYMPHS 38.5 12.30 - 39.70 % [facility] MONOS 5.3 4.10 - 12.80 % [facility] EOS 0.0 0 - 7.2 % [facility] BASOS 0.2 0 - 2.80 % [facility] Granulocytes, immature (%) 0.3 0.0 - 0.9 % [facility] ABSOLUTE NEUTS 6.29 1.40 - 7.70 K/uL [facility] ABSOLUTE LYMPHS 4.34(H) 0.60 - 3.20 K/uL [facility] ABSOLUTE MONOS 0.60(H) 0.11 - 0.59 K/uL [facility] ABSOLUTE EOS 0.00(L) 0.01 - 0.50 K/uL [facility] ABSOLUTE BASOS 0.02 0.00 - 0.08 K/uL [facility] Granulocytes, immature 0.03 0.00 - 0.05 K/uL [facility] Blood 11/16/2017 4:22 PM EDT 11/16/2017 4:24 PM EDT us Timothy Aleman MD LAB BLOOD BKR ORDERABLES Fi nal Result [facility] [address] [place] [address] * (ABNORMAL) CBC and differential (10/15/2017 11:37 AM EDT) WBC 9.36 3.40 - 11.20 K/uL [facility] RBC 4.34 3.80 - 4.80 M/uL [facility] HGB 11.9(L) 12.0 - 15.0 g/dL [facility] HCT 36.5 36.0 - 46.0 % [facility] PLT 336 130 - 400 K/uL [facility] MCV 84.1 79.0 - 98.0 fL [facility] MCH 27.4 27.0 - 34.8 pg [facility] MCHC 32.6 31.5 - 36.0 g/dL [facility] RDW 16.5(H) 10.8 - 14.6 % [facility] MPV 10.5 9.4 - 12.4 fl [facility] NRBC 0.00 /100 WBCs [facility] ABSOLUTE NRBC 0.00 K/uL [facility] DIFF METHOD Auto [facility] NEUTS 54.8 45.30 - 77.70 % [facility] LYMPHS 41.1(H) 12.30 - 39.70 % [facility] MONOS 3.7(L) 4.10 - 12.80 % [facility] EOS 0.0 0 - 7.2 % [facility] BASOS 0.2 0 - 2.80 % [facility] Granulocytes, immature (%) 0.2 0.0 - 0.9 % [facility] ABSOLUTE NEUTS 5.12 1.40 - 7.70 K/uL [facility] ABSOLUTE LYMPHS 3.85(H) 0.60 - 3.20 K/uL [facility] ABSOLUTE MONOS 0.35 0.11 - 0.59 K/uL [facility] ABSOLUTE EOS 0.00(L) 0.01 - 0.50 K/uL [facility] ABSOLUTE BASOS 0.02 0.00 - 0.08 K/uL [facility] Granulocytes, immature 0.02 0.00 - 0.05 K/uL [facility] Blood 10/15/2017 11:3 7 AM EDT 10/15/2017 11:39 AM EDT us Timothy Aleman MD LAB BLOOD BKR ORDERABLES Fi nal Result [facility] [address] [place] [address] * (ABNORMAL) CBC and differential (09/21/2017 4:29 PM EST) WBC 12.38(H) 3.40 - 11.20 K/uL [facility] RBC 4.20 3.80 - 4.80 M/uL [facility] HGB 11.4(L) 12.0 - 15.0 g/dL [facility] HCT 35.0(L) 36.0 - 46.0 % [facility] PLT 344 130 - 400 K/uL [facility] MCV 83.3 79.0 - 98.0 fL [facility] MCH 27.1 27.0 - 34.8 pg [facility] MCHC 32.6 31.5 - 36.0 g/dL [facility] RDW 16.5(H) 10.8 - 14.6 % [facility] MPV 10.9 9.4 - 12.4 fl [facility] NRBC 0.00 /100 WBCs [facility] ABSOLUTE NRBC 0.00 K/uL [facility] DIFF METHOD Auto [facility] NEUTS 60.9 45.30 - 77.70 % [facility] LYMPHS 33.8 12.30 - 39.70 % [facility] MONOS 4.4 4.10 - 12.80 % [facility] EOS 0.0 0 - 7.2 % [facility] BASOS 0.3 0 - 2.80 % [facility] Granulocytes, immature (%) 0.6 0.0 - 0.9 % [facility] ABSOLUTE NEUTS 7.53 1.40 - 7.70 K/uL [facility] ABSOLUTE LYMPHS 4.19(H) 0.60 - 3.20 K/uL [facility] ABSOLUTE MONOS 0.55 0.11 - 0.59 K/uL [facility] ABSOLUTE EOS 0.00(L) 0.01 - 0.50 K/uL [facility] ABSOLUTE BASOS 0.04 0.00 - 0.08 K/uL [facility] Granulocytes, immature 0.07(H) 0.00 - 0.05 K/uL [facility] Blood 09/21/2017 4:29 PM EST 09/21/2017 4:32 PM EST us Timothy Aleman MD LAB BLOOD BKR ORDERABLES Fi nal Result [facility] [address] [place] [address] * (ABNORMAL) CBC and differential (08/20/2017 12:51 PM EST) WBC 10.42 3.40 - 11.20 K/uL [facility] RBC 4.28 3.80 - 4.80 M/uL [facility] HGB 11.5(L) 12.0 - 15.0 g/dL [facility] HCT 36.1 36.0 - 46.0 % [facility] PLT 351 130 - 400 K/uL [facility] MCV 84.3 79.0 - 98.0 fL [facility] MCH 26.9(L) 27.0 - 34.8 pg [facility] MCHC 31.9 31.5 - 36.0 g/dL [facility] RDW 16.2(H) 10.8 - 14.6 % [facility] MPV 11.2 9.4 - 12.4 fl [facility] NRBC 0.00 /100 WBCs [facility] ABSOLUTE NRBC 0.00 K/uL [facility] DIFF METHOD Auto [facility] NEUTS 59.9 45.30 - 77.70 % [facility] LYMPHS 34.5 12.30 - 39.70 % [facility] MONOS 4.9 4.10 - 12.80 % [facility] EOS 0.0 0 - 7.2 % [facility] BASOS 0.4 0 - 2.80 % [facility] Granulocytes, immature (%) 0.3 0.0 - 0.9 % [facility] ABSOLUTE NEUTS 6.25 1.40 - 7.70 K/uL [facility] ABSOLUTE LYMPHS 3.59(H) 0.60 - 3.20 K/uL [facility] ABSOLUTE MONOS 0.51 0.11 - 0.59 K/uL [facility] ABSOLUTE EOS 0.00(L) 0.01 - 0.50 K/uL [facility] ABSOLUTE BASOS 0.04 0.00 - 0.08 K/uL [facility] Granulocytes, immature 0.03 0.00 - 0.05 K/uL [facility] Blood 08/20/2017 12:5 1 PM EST 08/20/2017 12:53 PM EST us Timothy Aleman MD LAB BLOOD BKR ORDERABLES Fi nal Result Performing Organization Address City/State/[facility] Co de Phone Number [facility] [address] [place] [address] documented in this encounter Visit Diagnoses Diagnosis Diagnosis unknown- Primary documented in this encounter Care Teams Clinical Trainer Relationship Specialty Start Date End Date Po, Liss Chau MD [address] [place] [address] PCP - General Internal Medicine 06/01/17 documented as of this encounter Additional Source Comments The information contained in this document represents components of the legal health record. It is not the complete legal health record.[facility]
--- OUTSIDE RECORDS SUMMARY | 2025-07-13 18:29 | XMS_ITS | Encounter Summary ---
Author Organization [facility] Address [address] [place] [address] Phone Care Team Providers Care Rn Camp Name Role Phone Liss Moctezuma MD Primary Care Provider [phone] Encounter Details Date Type Department Care Team (Late st Contact Info) Description 12/26/2021 Ancillary Orders [facility],Outside Imaging [address] [place], [place] [id number] System, Provider Not In, [place] [address] Social History Tobacco Use Types Packs/Day Years [...] on filedocumented in this encounter Care Teams Rn Camp Relationship Specialty Start Date End Date Liss Moctezuma MD [address] [place] [address] PCP - General Internal Medicine 06/01/17 documented as of this encounter Additional Source Comments The information contained in this document represents components of the legal health record. It is not the complete legal health record.[facility]
--- OUTSIDE RECORDS SUMMARY | 2025-07-13 18:29 | XMS_ITS | Clinical Summary ---
Author Organization [facility] Address [address] [facility] [address] [place] [address] Phone Care Team Providers Care Bander And Cellophaner Helper Machine Name Role Phone Liss Moctezuma MD Primary Care Provider [phone] Allergies Active Allergy Reactions Criticality Noted Date [...] Active ferrous sulfate 324 mg (65 mg [place] iron) TbEC Take 324 mg by mouth [...] EST) WBC 9.66 4.00 - 11.00 K/uL [facility] RBC 4.75 3.72 - 5.30 M/uL [facility] HGB 14.6 10.6 - 15.5 g/dL [facility] HCT 43.9 32.0 - 45.0 % [facility] PLT 309 140 - 430 K/uL [facility] MCV 92.4 78.0 - 97.0 fL [facility] MCH 30.7 25.0 - 33.0 pg [facility] MCHC 33.3 32.0 - 36.0 g/dL [facility] RDW 14.6 11.0 - 16.0 % [facility] MPV 10.7 8.4 - 12.8 fl [facility] NRBC 0.00 0 /100 WBCs [facility] ABSOLUTE NRBC 0.00 0 K/uL [facility] DIFF METHOD Auto [facility] NEUTS 67.4 43.0 - 75.0 % [facility] LYMPHS 27.2 18.2 - 47.4 % [facility] MONOS 4.8 4.00 - 11.00 % [facility] EOS 0.0 0.0 - 8.0 % [facility] BASOS 0.4 0.0 - 2.0 % [facility] Granulocytes, immature (%) 0.2 0.0 - 0.9 % [facility] ABSOLUTE NEUTS 6.51 1.80 - 7.70 K/uL [facility] ABSOLUTE LYMPHS 2.63 1.00 - 3.10 K/uL [facility] ABSOLUTE MONOS 0.46 0.20 - 0.80 K/uL [facility] ABSOLUTE EOS 0.00 0.00 - 0.80 K/uL [facility] ABSOLUTE BASOS 0.04 0.00 - 0.09 K/uL [facility] Granulocytes, immature 0.02 0.00 - 0.05 K/uL [facility] Blood 07/18/2021 12:1 4 PM EST 07/18/2021 12:18 PM EST us Paris Bruce MD LAB BLOOD BKR ORDERABLES Final Result Performing Organization Address City/State/[facility] Co de Phone Number [facility] [address] [place] [address] * Mammogram Outside (No Interpretation) (06/24/2021 12:00 AM EST) Narrative SYSTEMGENERATED, DOCUMENTATION - 12/26/2021 6:59 AM EDT This study is for PACS storage only and not for interpretation. us Provider Not In System PhD IMG OUTSIDE IMAGING W /OUT INTERPRETATION Final Result from Last 3 Months or Most Recently Relevant to Health Maintenance Insurance MEDICARE PART A & B [facility] MEDICARE PART A & B HEALTH MEDICARE PART A & B [id number] [place], [place] [address]HEALTH MEDICARE PART A & B Member Subscriber Plan / Payer (Ef fective 2004-Present) Name:Sabra Deutsch Member ID:[id number] Relation to Subscriber:Self Name:Sabra Deutsch Subscriber ID:[id number] Payer ID:[id number] Group ID:Not on file Type:Medicare Address: [employer] [address] & B [place] B [employer] MEDICARE PART A & B Member Subscriber Plan / Payer ( fective 2004-) Name:Sabra Deutsch Member ID:[id number] Relation to Subscriber:Self Name:Sabra Deutsch Subscriber ID:[id number] Payer ID:[id number] Group ID:Not on file Type:Medicare Address: [employer] [address] [place] [phone] [place] PART A & B [facility] [place] Care Teams Bander And Cellophaner Helper Machine Relationship Specialty Start Date End Date Liss Moctezuma MD [address] [place] [phone] PCP - General Internal Medicine 06/01/17 Additional Source Comments The information contained in this document represents components of the legal health record. It is not the complete legal health record.[facility]
--- OUTSIDE RECORDS SUMMARY | 2025-07-13 18:29 | XMS_ITS | Encounter Summary ---
Author Organization [facility] Address [address] [facility] [address] [place] [address] Phone Care Team Providers Care Learn To Swim Instructor Name Role Phone Liss Moctezuma MD Primary Care Provider [phone] Encounter Details Date Type Department Care Team (Late st Contact Info) Description 12/26/2021 Ancillary Orders [facility],Outside Imaging [address] [place], [place] [id number] System, Provider [place] In, [place] [address] Social History Tobacco Use Types Packs/Day Years [...] on filedocumented in this encounter Care Teams Learn To Swim Instructor Relationship Specialty Start Date End Date Liss Moctezuma MD [address] [place] [address] PCP - General Internal Medicine 06/01/17 documented as of this encounter Additional Source Comments The information contained in this document represents components of the legal health record. It is not the complete legal health record.[facility]
--- OUTSIDE RECORDS SUMMARY | 2025-07-13 18:29 | XMS_ITS | Encounter Summary ---
Author Organization [facility] Address [address] [facility] [address] [place] [address] Phone Care Team Providers Care Flight Radio Operator Name Role Phone Liss Moctezuma MD Primary Care Provider [phone] Encounter Details Date Type Department Care Team (Late st Contact Info) Description 12/26/2021 Ancillary Orders [facility],Outside Imaging [address] [place], [place] [id number] System, Provider [place] In, [place] [address] Social History Tobacco Use Types Packs/Day Years [...] on filedocumented in this encounter Care Teams Flight Radio Operator Relationship Specialty Start Date End Date Liss Moctezuma MD [address] [place] [address] PCP - General Internal Medicine 06/01/17 documented as of this encounter Additional Source Comments The information contained in this document represents components of the legal health record. It is not the complete legal health record.[facility]
--- OUTSIDE RECORDS SUMMARY | 2025-07-13 18:29 | XMS_ITS | Encounter Summary ---
Author Organization [facility] Address [address] [facility] [address] [place] [address] Phone Care Team Providers Care Pumper Gauger Name Role Phone Liss Moctezuma MD Primary Care Provider Encounter Details Date Type Department Care Team (Late st Contact Info) Description 12/26/2021 Ancillary Orders [facility],Outside Imaging [address] [place], [place] [id number] System, Provider [place] In, [place] [address] Social History Tobacco Use Types Packs/Day Years [...] on filedocumented in this encounter Care Teams Pumper Gauger Relationship Specialty Start Date End Date Liss Moctezuma MD [address] [place] [address] PCP - General Internal Medicine 06/01/17 documented as of this encounter Additional Source Comments The information contained in this document represents components of the legal health record. It is not the complete legal health record.[facility]
--- OUTSIDE RECORDS SUMMARY | 2025-07-13 18:29 | XMS_ITS | Encounter Summary ---
Author Organization [facility] Address [address] [facility] [address] [place] [address] Phone Care Team Providers Care Tariff Inspector Name Role Phone Liss Moctezuma MD Primary Care Provider [phone] Encounter Details Date Type Department Care Team (Late st Contact Info) Description 12/26/2021 Ancillary Orders [facility],Outside Imaging [address] [place] [address] System, Provider [place] In, [place] [address] Social History Tobacco Use Types Packs/Day Years [...] on filedocumented in this encounter Care Teams Tariff Inspector Relationship Specialty Start Date End Date Liss Moctezuma MD [address] [place] [address] PCP - General Internal Medicine 06/01/17 documented as of this encounter Additional Source Comments The information contained in this document represents components of the legal health record. It is not the complete legal health record.[facility]
--- OUTSIDE RECORDS SUMMARY | 2025-07-13 18:29 | XMS_ITS | Encounter Summary ---
Author Organization [facility] Address [address] [place] [address] Phone Care Team Providers Care Supply Specialist Name Role Phone Liss Moctezuma MD Primary Care Provider [phone] Encounter Details Date Type Department Care Team (Late st Contact Info) Description 06/25/2017 Transcribe Orders [facility] [address] [place] [address] Timothy Aleman MD [address] [place] [address] Psychosis, unspecified psychosis type (Primary Dx) Social [...] EST) WBC 9.93 3.40 - 11.20 K/uL [facility] RBC 4.36 3.80 - 4.80 M/uL [facility] HGB 11.8(L) 12.0 - 15.0 g/dL [facility] HCT 36.6 36.0 - 46.0 % [facility] PLT 335 130 - 400 K/uL [facility] MCV 83.9 79.0 - 98.0 fL [facility] MCH 27.1 27.0 - 34.8 pg [facility] MCHC 32.2 31.5 - 36.0 g/dL [facility] RDW 15.0(H) 10.8 - 14.6 % [facility] MPV 10.9 9.4 - 12.4 fl [facility] NRBC 0.00 /100 WBCs [facility] ABSOLUTE NRBC 0.00 K/uL [facility] DIFF METHOD Auto [facility] NEUTS 58.2 45.30 - 77.70 % [facility] LYMPHS 36.8 12.30 - 39.70 % [facility] MONOS 4.3 4.10 - 12.80 % [facility] EOS 0.0 0 - 7.2 % [facility] BASOS 0.3 0 - 2.80 % [facility] Granulocytes, immature (%) 0.4 0.0 - 0.9 % [facility] ABSOLUTE NEUTS 5.78 1.40 - 7.70 K/uL [facility] ABSOLUTE LYMPHS 3.65(H) 0.60 - 3.20 K/uL [facility] ABSOLUTE MONOS 0.43 0.11 - 0.59 K/uL [facility] ABSOLUTE EOS 0.00(L) 0.01 - 0.50 K/uL [facility] ABSOLUTE BASOS 0.03 0.00 - 0.08 K/uL [facility] Granulocytes, immature 0.04 0.00 - 0.05 K/uL [facility] Blood 06/25/2017 12:0 5 PM EST 06/25/2017 12:07 PM EST Timothy Aleman MD LAB BLOOD BKR ORDERABLES Fi nal Result Performing Organization Address City/State/[facility] Co de Phone Number [address] [address] documented in this encounter Visit Diagnoses Diagnosis Psychosis, unspecified psychosis type- Primary documented in this encounter Care Teams Supply Specialist Relationship Specialty Start Date End Date Liss Moctzeuma MD [address] [place] [phone] PCP - General Internal Medicine 06/01/17 documented as of this encounter Additional Source Comments The information contained in this document represents components of the legal health record. It is not the complete legal health record.[facility]
--- OUTSIDE RECORDS SUMMARY | 2025-07-13 18:29 | XMS_ITS | Encounter Summary ---
Author Organization [facility] Address [address] [facility] [address] [place] [address] Phone Care Team Providers Care Provider Relations Coordinator Name Role Phone Liss Moctezuma MD Primary Care Provider [phone] Encounter Details Date Type Department Care Team (Late st Contact Info) Description 12/26/2021 Ancillary Orders [facility],Outside Imaging [address] [place], [place] [phone] System, Provider [place] In, [place] [address] Social History Tobacco Use Types Packs/Day Years [...] on filedocumented in this encounter Care Teams Provider Relations Coordinator Relationship Specialty Start Date End Date Liss Moctezuma MD [address] [place] [address] PCP - General Internal Medicine 06/01/17 documented as of this encounter Additional Source Comments The information contained in this document represents components of the legal health record. It is not the complete legal health record.[facility]
--- OUTSIDE RECORDS SUMMARY | 2025-07-13 18:29 | XMS_ITS | Encounter Summary ---
Author Organization [facility] Address [address] [place] [address] Phone Care Team Providers Care Quill Machine Tender Name Role Phone Liss Moctezuma MD Primary Care Provider [phone] Encounter Details Date Type Department Care Team (Late st Contact Info) Description 06/01/2017 Transcribe Orders [facility] [address] [place] [address] Timothy Aleman MD [address] [place] [address] Atypical psychosis (Primary Dx) Social History Tobacco [...] EST) WBC 9.66 3.40 - 11.20 K/uL [facility] RBC 4.20 3.80 - 4.80 M/uL [facility] HGB 11.7(L) 12.0 - 15.0 g/dL [facility] HCT 35.7(L) 36.0 - 46.0 % [facility] PLT 340 130 - 400 K/uL [facility] MCV 85.0 79.0 - 98.0 fL [facility] MCH 27.9 27.0 - 34.8 pg [facility] MCHC 32.8 31.5 - 36.0 g/dL [facility] RDW 15.0(H) 10.8 - 14.6 % [facility] MPV 11.2 9.4 - 12.4 fl [facility] NRBC 0.00 /100 WBCs [facility] ABSOLUTE NRBC 0.00 K/uL [facility] DIFF METHOD Auto [facility] NEUTS 70.4 45.30 - 77.70 % [facility] LYMPHS 22.0 12.30 - 39.70 % [facility] MONOS 5.9 4.10 - 12.80 % [facility] EOS 0.0 0 - 7.2 % [facility] BASOS 0.4 0 - 2.80 % [facility] Granulocytes, immature (%) 1.3(H) 0.0 - 0.9 % [facility] ABSOLUTE NEUTS 6.79 1.40 - 7.70 K/uL [facility] ABSOLUTE LYMPHS 2.13 0.60 - 3.20 K/uL [facility] ABSOLUTE MONOS 0.57 0.11 - 0.59 K/uL [facility] ABSOLUTE EOS 0.00(L) 0.01 - 0.50 K/uL [facility] ABSOLUTE BASOS 0.04 0.00 - 0.08 K/uL [facility] Granulocytes, immature 0.13(H) 0.00 - 0.05 K/uL [facility] Blood 06/01/2017 10:1 9 AM EST 06/01/2017 10:21 AM EST us Timothy Aleman MD LAB BLOOD BKR ORDERABLES Ed ited Result - Final [facility] [address] [place] [address] documented in this encounter Visit Diagnoses Diagnosis Atypical psychosis- Primary Unspecified psychosis documented in this encounter Care Teams Quill Machine Tender Relationship Specialty Start Date End Date Liss Moctezuma MD [address] [place] [phone] PCP - General Internal Medicine 06/01/17 documented as of this encounter Additional Source Comments The information contained in this document represents components of the legal health record. It is not the complete legal health record.[facility]
--- OUTSIDE RECORDS SUMMARY | 2025-08-13 19:00 | XMS_ITS | Clinical Summary ---
Author Organization Unknown Care Team Providers Care Data Services Developer Name Role Phone KYLE NASH, MEMO Unavailable Unavailable GEORGE HERNANDEZ, ANGELINA Unavailable Unavailable CATARINO HERNANDEZ, ROSA Unavailable Unavailable Payers Payer Name Policy Type Policy Number Effective Date Expira tion Date [place] [id number] [place] [id number] Problems Condition Name Condition Details Condition Category [...] 09-02 00:00: 00 12-20 00:00 :00 No [id number] 1 tablet QAM 1 tablet QAM (route: oral) Alternate Route: PO. Med Classific ation: Central Nervous System Agents aspirin 81 mg chewable tablet 3-14 00:00: 00 07-08 23:59 :00 No [id number] 1 tablet EVERY AM 1 tablet EVERY AM (route: oral) Med Classific ation: Hematolog ical Agents cyanocobala min (vitamin B-12) 1,000 mcg capsule 708 00:00: 02-06 23:59 :00 No [id number] 1 capsule EVERY AM 1 capsule EVERY AM (route: oral) Med Classific ation: Electroly te Balance-N utritiona l Products bupropion HCl 100 mg tablet 08-22 00:00: 12-20 00:00 :00 No [id number] 1 tablet Every day 1 tablet Every day (route: oral) Med Classific ation: Central Nervous System Agents Cinnamon 500 mg capsule 12-09 00:00: 00 01-06 23:59 :00 No [id number] 2 capsule DAILY 2 capsule DAILY (route: oral) Med Classific ation: Alternati ve Therapy clonidine HCl 0.1 mg tablet 12-27 00:00: 00 07-22 23:59 :00 No [id number] 1 tablet TWICE A DAY PRN 1 tablet TWICE A DAY PRN (route: oral) Med Classific ation: Cardiovas cular Therapy Agents clozapine 50 mg tablet 12-09 00:00: 00 12-21 23:59 :00 No [id number] 1.5 tablet 2 TIMES DAILY 1.5 tablet 2 TIMES DAILY (route: oral) Med Classific ation: Central Nervous System Agents DOK 100 mg capsule 08-30 00:00: 00 12-21 23:59 :00 No [id number] 1 capsule QD 1 capsule QD (route: oral) Alternate Route: PO. Med Classific ation: Gastroint estinal Therapy Agents ferrous sulfate 324 mg (65 mg iron) tablet,maría yed release 2 00:00: 00 02-03 23:59 :00 No [id number] 1 tablet ONCE A DAY 1 tablet ONCE A DAY (route: oral) Alternate Route: PO. Med Classific ation: Electroly te Balance-N utritiona l Products fluoxetine 20 mg tablet 206 00:00: 00 07-08 23:59 :00 No [id number] 1 tablet QAM 1 tablet QAM (route: oral) Alternate Route: PO. Med Classific ation: Central Nervous System Agents levonorgest rel-ethinyl estradiol 0.1 mg-20 mcg tablet 4-18 00:00: 00 07-08 23:59 :00 No [id number] 1 tablet Every am 1 tablet Every am (route: oral) Med Classific ation: Contracep tives losartan 25 mg tablet 12-02 00:00: 00 04-25 23:59 :00 No [id number] 1 tablet EVERY AM 1 tablet EVERY AM (route: oral) Med Classific ation: Cardiovas cular Therapy Agents metformin 1,000 mg tablet 03-12 00:00: 00 04-25 23:59 :00 No [id number] 1 tablet Twice daily 1 tablet Twice daily (route: oral) Med Classific ation: Endocrine omeprazole 20 mg capsule,del ayed release 09-16 00:00: 00 04-25 23:59 :00 No [id number] 1 capsule ONCE DAILY 1 capsule ONCE DAILY (route: oral) Alternate Route: PO. Med Classific ation: Gastroint estinal Therapy Agents simvastatin 5 mg tablet 09-16 00:00: 00 07-12 23:59 :00 No [id number] 1 tablet QD 1 tablet QD (route: oral) Alternate Route: PO. Med Classific ation: Cardiovas cular Therapy Agents Vitamin C 1,000 mg tablet 12-09 00:00: 00 01-06 23:59 :00 No [id number] 1 tablet EVERY AM 1 tablet EVERY AM (route: oral) Med Classific ation: Electroly te Balance-N utritiona l Products Vitamin D3 25 mcg (1,000 unit) capsule 16 00:00: 00 12-21 23:59 :00 No [id number] 1 capsule EVERY AM 1 capsule EVERY AM (route: oral) Med Classific ation: Electroly te Balance-N utritiona l Products amoxicillin 500 mg capsule 08 00:00: 00 01-14 23:59 :00 No [id number] 1 capsule EVERY 8 HOURS 1 capsule EVERY 8 HOURS (route: oral) Med Classific ation: Anti-Infe ctive Agents ibuprofen 800 mg tablet 08 00:00: 00 01-14 23:59 :00 No [id number] 1 tablet EVERY 8 HOURS 1 tablet EVERY 8 HOURS (route: oral) Med Classific ation: Analgesic , Anti-infl ammatory or Antipyret ic Jardiance 10 mg tablet 2020-07 00:00: 00 06-03 23:59 :00 No [id number] 1 tablet DAILY 1 tablet DAILY (route: oral) Med Classific ation: Endocrine fluoxetine 10 mg capsule 2020-07 2- 00:00: 00 08-26 23:59 :00 No [id number] 1 capsule DAILY 1 capsule DAILY (route: oral) Med Classific ation: Central Nervous System Agents clonidine HCl 0.1 mg tablet 2020-07 00:00: 00 12-21 23:59 :00 No [id number] 1 tablet 3 TIMES DAILY 1 tablet 3 TIMES DAILY (route: oral) Med Classific ation: Cardiovas cular Therapy Agents dexamethaso ne 4 mg tablet 08-26 00:00: 00 12-21 23:59 :00 No [id number] Per instruc tions DIRECTED Per instructio ns DIRECTED (route: oral) Med Classific ation: Endocrine Jardiance 10 mg tablet 08-26 00:00: 00 08-18 23:59 :00 No [id number] 1 tablet DAILY 1 tablet DAILY (route: oral) Med Classific ation: Endocrine ondansetron 8 mg disintegrat ing tablet 08-26 00:00: 00 10-13 23:59 :00 No [id number] Per instruc tions EVERY 8 HOURS Per instructio ns EVERY 8 HOURS (route: oral) Med Classific ation: Gastroint estinal Therapy Agents clonidine HCl 0.1 mg tablet 12-21 00:00: 00 08-13 23:59 :00 No [id number] 1 tablet 2 TIMES DAILY 1 tablet 2 TIMES DAILY (route: oral) Med Classific ation: Cardiovas cular Therapy Agents clonidine HCl 0.1 mg tablet 12-21 00:00: 00 08-13 23:59 :00 No [id number] 1 tablet NEEDED 1 tablet NEEDED (route: oral) Med Classific ation: Cardiovas cular Therapy Agents clozapine 100 mg tablet 12-21 00:00: 00 02-15 23:59 :00 No [id number] 1.5 tablet 2 TIMES DAILY 1.5 tablet 2 TIMES DAILY (route: oral) Med Classific ation: Central Nervous System Agents docusate sodium 100 mg capsule 12-21 00:00: 00 01-06 23:59 :00 No [id number] 2 capsule BEDTIME 2 capsule BEDTIME (route: oral) Med Classific ation: Gastroint estinal Therapy Agents Latuda 80 mg tablet 12-21 00:00: 00 04-26 23:59 :00 No [id number] 1 tablet DAILY 1 tablet DAILY (route: oral) Med Classific ation: Central Nervous System Agents lorazepam 1 mg tablet 12-21 00:00: 00 08-13 23:59 :00 No [id number] 1 tablet 2 TIMES DAILY 1 tablet 2 TIMES DAILY (route: oral) Med Classific ation: Central Nervous System Agents Lovenox 40 mg/0.4 mL subcutaneou s syringe 12-21 00:00: 00 02-06 23:59 :00 No [id number] 40 mg DAILY 40 mg DAILY (route: subcutaneo us) Med Classific ation: Hematolog ical Agents prazosin 1 mg capsule 12-21 00:00: 00 01-03 23:59 :00 No [id number] 1 capsule NEEDED 1 capsule NEEDED (route: oral) Med Classific ation: Cardiovas cular Therapy Agents trazodone 100 mg tablet 12-21 00:00: 00 01-06 23:59 :00 No [id number] 1 tablet NEEDED 1 tablet NEEDED (route: oral) Med Classific ation: Central Nervous System Agents Vitamin D3 10 mcg (400 unit) tablet 12-21 00:00: 00 08-25 23:59 :00 No [id number] 1 tablet DAILY 1 tablet DAILY (route: oral) Med Classific ation: Electroly te Balance-N utritiona l Products docusate sodium 100 mg capsule 01-06 00:00: 00 04-26 23:59 :00 No [id number] 1 capsule DAILY 1 capsule DAILY (route: oral) Med Classific ation: Gastroint estinal Therapy Agents trazodone 100 mg tablet 01-06 00:00: 00 03-03 23:59 :00 No [id number] Per instruc tions BEDTIME Per instructio ns BEDTIME (route: oral) Med Classific ation: Central Nervous System Agents gabapentin 100 mg capsule 2021-07- 00:00: 00 07-15 23:59 :00 No [id number] 1 capsule 2 TIMES DAILY 1 capsule 2 TIMES DAILY (route: oral) Alternate Route: NONE. Med Classific ation: Central Nervous System Agents pregabalin 50 mg capsule 08-17 00:00: 00 04-12 23:59 :00 No [id number] 1 capsule 2 TIMES DAILY 1 capsule 2 TIMES DAILY (route: oral) Med Classific ation: Central Nervous System Agents lorazepam 1 mg tablet 08-13 00:00: 00 Yes [id number] 0.5 tablet EVERY AM 0.5 tablet EVERY AM (route: oral) Med Classific ation: Central Nervous System Agents letrozole 2.5 mg tablet 02-03 00:00: 00 04-25 00:00 :00 No [id number] 1 tablet BEDTIME 1 tablet BEDTIME (route: oral) Med Classific ation: Antineopl astics Xarelto 20 mg tablet 02-03 00:00: 00 06-23 23:59 :00 No [id number] 1 tablet DAILY 1 tablet DAILY (route: oral) Med Classific ation: Hematolog ical Agents Jardiance 25 mg tablet 1- 00:00: 00 04-26 23:59 :00 No [id number] 1 tablet DAILY 1 tablet DAILY (route: oral) Med Classific ation: Endocrine Vitamin D3 10 mcg (400 unit) tablet 1-31 00:00: 00 04-21 23:59 :00 No [id number] 1 tablet DIRECTED 1 tablet DIRECTED (route: oral) Med Classific ation: Electroly te Balance-N utritiona l Products clozapine 100 mg tablet 02-21 00:00: 00 03-01 23:59 :00 No [id number] Per instruc tions DIRECTED Per instructio ns DIRECTED (route: oral) Med Classific ation: Central Nervous System Agents clozapine 100 mg tablet 03-01 00:00: 00 03-24 23:59 :00 No [id number] 1 tablet EVERY AM 1 tablet EVERY AM (route: oral) Med Classific ation: Central Nervous System Agents clozapine 200 mg disintegrat ing tablet 03-01 00:00: 00 03-24 23:59 :00 No [id number] 1 tablet BEDTIME 1 tablet BEDTIME (route: oral) Med Classific ation: Central Nervous System Agents multivitami n tablet 03-08 00:00: 00 04-25 23:59 :00 No [id number] 1 tablet DAILY 1 tablet DAILY (route: oral) Med Classific ation: Electroly te Balance-N utritiona l Products clozapine 200 mg tablet 03-24 00:00: 00 04-26 23:59 :00 No [id number] 1 tablet BEDTIME 1 tablet BEDTIME (route: oral) Med Classific ation: Central Nervous System Agents Clozaril 50 mg tablet 03-24 00:00: 00 04-26 23:59 :00 No [id number] 1 tablet 2 TIMES DAILY 1 tablet 2 TIMES DAILY (route: oral) Med Classific ation: Central Nervous System Agents pregabalin 50 mg capsule 04-13 00:00: 00 04-25 23:59 :00 No [id number] 1 capsule EVERY AM 1 capsule EVERY AM (route: oral) Med Classific ation: Central Nervous System Agents pregabalin 50 mg capsule 04-13 00:00: 00 04-25 23:59 :00 No [id number] 2 capsule EVERY PM 2 capsule EVERY PM (route: oral) Med Classific ation: Central Nervous System Agents Vitamin D3 10 mcg (400 unit) tablet 9-26 00:00: 00 04-25 23:59 :00 No [id number] 1 tablet EVERY AM 1 tablet EVERY AM (route: oral) Med Classific ation: Electroly te Balance-N utritiona l Products lorazepam 1 mg tablet 2023-07 1-26 00:00: 00 04-25 23:59 :00 No [id number] 1 tablet BEDTIME 1 tablet BEDTIME (route: oral) Med Classific ation: Central Nervous System Agents simvastatin 10 mg tablet 2023-07 2-17 00:00: 00 04-25 23:59 :00 No [id number] 1 tablet BEDTIME 1 tablet BEDTIME (route: oral) Med Classific ation: Cardiovas cular Therapy Agents metoprolol succinate ER 25 mg tablet,exte nded release 24 hr 3-18 00:00: 00 04-25 23:59 :00 No [id number] 1 tablet DAILY 1 tablet DAILY (route: oral) Med Classific ation: Cardiovas cular Therapy Agents Mounjaro 2.5 mg/0.5 mL subcutaneou s pen injector 7-08 00:00: 00 04-25 23:59 :00 No [id number] 2.5 mg WEEKLY 2.5 mg WEEKLY (route: subcutaneo us) Med Classific ation: Endocrine clozapine 200 mg tablet 2024-07 0- 00:00: 00 Yes [id number] 1 tablet BEDTIME 1 tablet BEDTIME (route: oral) Med Classific ation: Central Nervous System Agents Clozaril 50 mg tablet 2024-07 0- 00:00: 00 Yes [id number] 1 tablet 2 TIMES DAILY 1 tablet 2 TIMES DAILY (route: oral) Med Classific ation: Central Nervous System Agents docusate sodium 100 mg capsule 2024-07 0- 00:00: 00 Yes [id number] 1 capsule BEDTIME 1 capsule BEDTIME (route: oral) Med Classific ation: Gastroint estinal Therapy Agents Jardiance 25 mg tablet 2024-07 0- 00:00: 00 Yes [id number] 1 tablet EVERY AM 1 tablet EVERY AM (route: oral) Med Classific ation: Endocrine Latuda 80 mg tablet 2024-07 0 00:00: 00 Yes [id number] 1 tablet EVERY PM 1 tablet EVERY PM (route: oral) Med Classific ation: Central Nervous System Agents letrozole 2.5 mg tablet 2024-07 0 00:00: 00 Yes [id number] 1 tablet BEDTIME 1 tablet BEDTIME (route: oral) Med Classific ation: Antineopl astics lorazepam 1 mg tablet 2024-07 0 00:00: 00 Yes [id number] 0.5 tablet EVERY AM 0.5 tablet EVERY AM (route: oral) Med Classific ation: Central Nervous System Agents lorazepam 1 mg tablet 2024-07 0 00:00: 00 Yes [id number] 1 tablet BEDTIME 1 tablet BEDTIME (route: oral) Med Classific ation: Central Nervous System Agents losartan 25 mg tablet 2024-07 00:00: 00 Yes [id number] 1 tablet EVERY AM 1 tablet EVERY AM (route: oral) Med Classific ation: Cardiovas cular Therapy Agents metformin 1,000 mg tablet 2024-07 00:00: 00 Yes [id number] 1 tablet 2 TIMES DAILY 1 tablet 2 TIMES DAILY (route: oral) Med Classific ation: Endocrine metoprolol succinate ER 25 mg tablet,exte nded release 24 hr 2024-07 00:00: 00 Yes [id number] 1 tablet EVERY AM 1 tablet EVERY AM (route: oral) Med Classific ation: Cardiovas cular Therapy Agents Mounjaro 2.5 mg/0.5 mL subcutaneou s pen injector 2024-07 00:00: 00 05-30 23:59 :00 No [id number] 2.5 mg WEEKLY 2.5 mg WEEKLY (route: subcutaneo us) Med Classific ation: Endocrine multivitami n tablet 2024-07 00:00: 00 Yes [id number] 1 tablet EVERY AM 1 tablet EVERY AM (route: oral) Med Classific ation: Electroly te Balance-N utritiona l Products omeprazole 20 mg capsule,del ayed release 2024-07 00:00: 00 Yes [id number] 1 capsule EVERY AM 1 capsule EVERY AM (route: oral) Alternate Route: PO. Med Classific ation: Gastroint estinal Therapy Agents simvastatin 10 mg tablet 2024-07 0 00:00: 00 Yes [id number] 1 tablet BEDTIME 1 tablet BEDTIME (route: oral) Med Classific ation: Cardiovas cular Therapy Agents trazodone 50 mg tablet 04-25 00:00: 00 Yes [id number] 0.5-1 tablet BEDTIME 0.5-1 tablet BEDTIME (route: oral) Med Classific ation: Central Nervous System Agents Vitamin D3 10 mcg (400 unit) tablet 2024-07 00:00: 00 Yes [id number] 1 tablet EVERY AM 1 tablet EVERY AM (route: oral) Med Classific ation: Electroly te Balance-N utritiona l Products pregabalin 50 mg capsule 04-25 00:00: 00 Yes [id number] 2 capsule BEDTIME 2 capsule BEDTIME (route: oral) Med Classific ation: Central Nervous System Agents pregabalin 50 mg capsule 04-25 00:00: 00 Yes [id number] 1 capsule 2 TIMES DAILY 1 capsule 2 TIMES DAILY (route: oral) Med Classific ation: Central Nervous System Agents Mounjaro 5 mg/0.5 mL subcutaneou s pen injector 2024-07 1 00:00: 00 Yes [id number] 5 mg WEEKLY 5 mg WEEKLY (route: subcutaneo us) Med Classific ation: Endocrine METFORMIN ORAL 3-14 00:00: 00 02-12 00:00 :00 No [id number] Twice a day [id number] Twice a day (route: ) Med Classific ation: ENDOCRINE METFORMIN ORAL 7-20 00:00: 00 03-12 00:00 :00 No 500 mg1 tab TWICE-TIGRE Y 500 mg1 tab TWICE-TIGRE Y (route: ) Med Classific ation: ENDOCRINE Vital Signs Vital Name Observation Time Observation Value Commen ts Temperature 2025-07-11 11:15:00.000 97.8 [degF] Temperature 2025-07-04 12:14:00.000 98.2 [degF] Temperature 2025-06-27 12:30:00.000 97.5 [degF] Temperature 2025-06-20 11:56:00.000 97.8 [degF] Pulse 2025-07-11 11:15:00.000 99 /min Pulse 2025-07-04 12:14:00.000 99 /min Pulse 2025-06-20 11:56:00.000 98 /min O2 Saturation (%) 2025-07-11 11:15:00.000 98 % O2 Saturation (%) 2025-06-27 12:30:00.000 98 % O2 Saturation (%) 2025-06-20 11:56:00.000 98 % Respirations 2025-07-11 11:15:00.000 16 /min Respirations 2025-07-04 12:14:00.000 16 /min Respirations 2025-06-27 12:30:00.000 16 /min Respirations 2025-06-20 11:56:00.000 16 /min Systolic Blood Pressure 2025-07-11 11:15:00.000 122 mm [Hg] Systolic Blood Pressure 2025-07-04 12:14:00.000 122 mm [Hg] Systolic Blood Pressure 2025-06-27 12:30:00.000 130 mm [Hg] Systolic Blood Pressure 2025-06-20 11:56:00.000 122 mm [Hg] Diastolic Blood Pressure 2025-07-11 11:15:00.000 60 mm [Hg] Diastolic Blood Pressure 2025-07-04 12:14:00.000 80 mm [Hg] Diastolic Blood Pressure 2025-06-27 12:30:00.000 80 mm [Hg] Diastolic Blood Pressure 2025-06-20 11:56:00.000 80 mm [Hg] Plan of Treatment Planned Activity Planned Date Details Comments Future Scheduled Test SKILLED NU RSE TO EVALUATE PATIENT, IDENTIFY PRIMARY AND CO-MORBID CONDITIONS CODED PER CODING GUIDELINES, AND DEVELOP PATIENT SPECIFIC PLAN OF CARE THAT INCLUDES PATIENT GOAL FOR HOME HEALTH. PLAN OF CARE TO INCLUDE 3 PRN VISIT(S) FOR OASIS DATA COLLECTION/COMPREHENSIVE ASSESSMENT AT TIMEPOINTS PER FEDERAL REGULATIONS. THIS INCLUDES VISITS FOR GENE, RECERT, SCIC, AND/OR DC. [code = SKILLED NURSE TO EVALUATE PATIENT, IDENTIFY PRIMARY AND CO-MORBID CONDITIONS CODED PER CODING GUIDELINES, AND DEVELOP PATIENT SPECIFIC PLAN OF CARE THAT INCLUDES PATIENT GOAL FOR HOME HEALTH. PLAN OF CARE TO INCLUDE 3 PRN VISIT(S) FOR OASIS DATA COLLECTION/COMPREHENSIVE ASSESSMENT AT TIMEPOINTS PER FEDERAL REGULATIONS. THIS INCLUDES VISITS FOR GENE, RECERT, SCIC, AND/OR DC.] Future Scheduled Test SKILLED NU RSE TO [...] WITH EXACERBATION FOR EARLY INTERVENTION OF COMPLICATIONS WEEKLY. [code = SKILLED NURSE FOR O/A OF GENERAL HEALTH STATUS OF PAIN, CARDIAC, RESPIRATORY, GASTROINTESTINAL, GENITOURINARY, SKIN, NEUROLOGIC, ENDOCRINE SYSTEMS TO IDENTIFY CHANGES ASSOCIATED WITH EXACERBATION FOR EARLY INTERVENTION OF COMPLICATIONS WEEKLY.] Future Scheduled Test SKILLED NU RSE FOR O/A AND SKILLED TEACHING OF COPING SKILLS TO MANAGE ANXIETY AND MAINTAIN SAFETY. [code = SKILLED NURSE FOR O/A AND SKILLED TEACHING OF COPING SKILLS TO MANAGE ANXIETY AND MAINTAIN SAFETY.] Future Scheduled Test SKILLED NU RSE FOR O/A AND TEACHING OF ENDOCRINE SYSTEM TO IDENTIFY CHANGES ASSOCIATED WITH EXACERBATION OF DIABETES ) FOR EARLY INTERVENTION OF COMPLICATIONS. [code = SKILLED NURSE FOR O/A AND TEACHING OF ENDOCRINE SYSTEM TO IDENTIFY CHANGES ASSOCIATED WITH EXACERBATION OF DIABETES ) FOR EARLY INTERVENTION OF COMPLICATIONS.] Future Scheduled Test SKILLED NU RSE FOR [...] REPORT.] Future Scheduled Test SKILLED NU RSE TO PROVIDE TEACHING ON SIGNS AND SYMPTOMS AND MANAGEMENT OF HYPERTENSION. [code = SKILLED NURSE TO PROVIDE TEACHING ON SIGNS AND SYMPTOMS AND MANAGEMENT OF HYPERTENSION.] Future Scheduled Test SKILLED NU RSE TO [...] SERVICES.] Future Scheduled Test SKILLED NU RSE WILL MAINTAIN SITUATIONAL AWARENESS FOR SAFETY AND WILL NOTIFY CLINICAL CONTINUITY MANAGER AND PHYSICIAN/PROVIDER WITH ANY CHANGE IN CONDITION. [code = SKILLED NURSE WILL MAINTAIN SITUATIONAL AWARENESS FOR SAFETY AND WILL NOTIFY CLINICAL CONTINUITY MANAGER AND PHYSICIAN/PROVIDER WITH ANY CHANGE IN CONDITION.] Goal 2023-06-23 Patient Goal - MANAGE MY MED ICATIONS Goal 2023-08-25 Patient Goal - MANAGE MY MED ICATIONS Goal 2023-10-20 Patient Goal - S COURTNEY COMPLIANT WITH MEDICATION Goal 2023-12-22 Patient Goal - S COUTRNEY COMPLIANT WITH MEDICATION Goal 2024-02-17 Patient Goal [...] - S COURTNEY COMPLIANT WITH MEDICATION Goal 2025-06-13 Patient Goal - S COURTNEY COMPLIANT WITH MEDICATION Goal Patient Goal - S COURTNEY COMPLIANT WITH MEDICATION Goal Provider Goal - A PLAN OF CARE WILL BE ESTABLISHED THAT MEETS PATIENT'S PENITENTIARY NEEDS AND INCLUDES PATIENT GOAL FOR HOME HEALTH. Goal Provider Goal - PATIENT WILL COMPLY [...] LOCKBOX FOR SAFETY. Goal Provider Goal - CHANGE IN GENERAL HEALTH STATUS WILL BE IDENTIFIED AND REPORTED TO PHYSICIAN FOR PROMPT INTERVENTION TO MINIMIZE ASSOCIATED RISKS THROUGHOUT CERTIFICATION PERIOD. Goal Provider Goal - PATIENT WILL BE ABLE TO PERFORM DAILY FUNCTIONS AND HAVE OPTIMAL IMPROVEMENT IN LEVEL OF ANXIETY THROUGHOUT CERTIFICATION PERIOD. Goal Provider Goal - PATIENT/CAREGIVER WILL VERBALIZE SIGNS AND SYMPTOMS OF EXACERBATION OF DIABETES ) TO REPORT TO NURSE/PHYSICIAN THROUGHOUT THE CERTIFICATION PERIOD. Goal Provider Goal - PATIENT/CAREGIVER WILL VERBALIZE/DEMONSTRATE KNOWLEDGE OF DIABETIC MANAGEMENT. CHANGES IN DIABETIC STATUS WILL BE IDENTIFIED AND REPORTED TO PHYSICIAN FOR PROMPT INTERVENTION THROUGHOUT THE CERTIFICATION PERIOD. Goal Provider Goal - PATIENT/CAREGIVER WILL VERBALIZE SIGNS AND SYMPTOMS OF HYPERTENSION AND WILL BE ABLE TO DEMONSTRATE ABILITY TO MANAGE EXACERBATION BY END OF THE EPISODE. Goal Provider Goal - PATIENT/CAREGIVER WILL VERBALIZE/DEMONSTRATE [...] OF CERTIFICATION PERIOD. Goal Provider Goal - PATIENT/CAREGIVER [...] SELF AND OTHERS THROUGHOUT THE CERTIFICATION PERIOD. Progress Notes Progress Notes <paragraph>[Visit Date: 2024 by ROSA TORIBIO RN]:</paragraph><paragraph>07/11/25 WEEKLY PENITENTIARY VISIT MADE TO ASSESS MENTAL HEALTH, DIABETIC AND CARDIOPULMONARY STATUS. RN ASSISTED PATIENT PREFILLED MEDICATIONS FOR THE NEXT 7 DAYS FROM 07/11/25 THROUGH 07/18/25. RN PROMPTED PATIENT TO SELF A.MOUNJARO 5 MG/0.5 ML SUBCUTANEOUS PEN INJECTOR5 MG, INTO LEFT ABDOMEN WITHOUT DIFFICULTY. NO SIGNS OF HYPO HYPERGLYCEMIA MOOD STABLE DENIES THOUGHTS OF SELF-HARM PATIENT HAS AN APPOINTMENT PCP THIS THURSDAY FOR A PHYSICAL COMPLIANT WITH PRE POURED MEDICATION ...</paragraph> Encounters Start Date/Time End Date/Time Encounter Type Admission Type Attending [facility] Care Facility Care Department Encounter ID Discharge Date Discharge Status Discharge Condition Discharge Reason Percent Goals Met 2025-06-16 00:00:00 2025-08-14 00:00:00 Outpatient RECERTIFIC ATION ROSA TORIBIO [facility] [id number] 0.00
== END 2025-07-13 15:06 | disposition home or self-care (01) ==
LOC: HO.HMCH 14:15
PROVIDERS: PCP Internal Medicine; Visit Provider Internal Medicine
DX: Z00.00 Encounter for general adult medical examination without abnormal findings (principal); E11.65 Type 2 diabetes mellitus with hyperglycemia; I10 Essential (primary) hypertension; E78.00 Pure hypercholesterolemia, unspecified; K21.9 Gastro-esophageal reflux disease without esophagitis; R20.2 Paresthesia of skin

== ENCOUNTER → 2025-07-13 14:14 | Outpatient (BNVA) | payer MEDICARE, MEDICAID, SELFPAY | PROVIDERS: PCP Internal Medicine; Visit Provider Internal Medicine | DX: Z13.31 Encounter for screening for depression (principal) | CPT/HCPCS: 96127 ==